=== PATIENT | male | born 1960 | race Caucasian/White ===

== ENCOUNTER 2021-03-18 06:33 | Inpatient (IN) | payer OTHER, MEDICAID, SELFPAY ==
--- NOTE | 2021-03-18 06:40 | ED_ITS ---
HPI - Psych General Chief Complaint: Psychiatric Symptoms Stated Complaint: crisis/si/non med compliant Time Seen by Provider: 03/18/21 06:40 Source: patient and EMS Mode of arrival: EMS Limitations: no limitations History of Present Illness MD complaint: suicidal ideation, feels depressed and substance abuse Onset (ago): week(s) Duration: getting worse History of same: Yes Relieving factors: none Exacerbating factors: drug use Context: recent drug abuse and not taking psychiatric medications Associated psychiatric symptoms: depression and suicidal ideation Associated symptoms: denies other symptoms Treatments prior to arrival: none If self harm: admits thoughts of self harm and has plan Related Data Allergies Allergy/AdvReac Type Severity Reaction Status Date / Time No Known Allergies Allergy Verified 03/18/21 06:54 Review of Systems Review of Systems: Constitutional : No Fever, No Chills ENT/Mouth : No Ear Pain, No Nasal Congestion, No sore throat Eyes: No Eye Pain, No Swelling, No Redness Cardiovascular : No Chest Pain, No SOB Respiratory : No Cough, No Sputum, No Dyspnea Gastrointestinal : No Nausea, No Vomiting, No Diarrhea, No Hematochezia, No Melena Genitourinary : No Dysuria, No Urinary Frequency, No Hematuria Musculoskeletal : No Myalgias Skin : No Skin Lesions, No rash Neuro : No Weakness, No Numbness, No Paresthesias, No Dizziness, No Headache Psych : positive Anxiety, positive Depression, positive SI no HI Heme/Lymph: No Lymphadenopathy Endocrine : No Polyuria, No Polydipsia All other systems reviewed and are negative PMFSH Past Medical History Attestation statement: The following information was validated with the patient. Medical History (Updated 03/18/21 @ 08:03 by Lily Mosqueda DO) Diabetes HTN (hypertension) Social History Social History (Updated 03/18/21 @ 06:56 by Lily Mosqueda DO) Patient Tobacco Use Status: Current everyday Tobacco user Use of substances other than those prescribed or required for medical reasons: Yes Substance Use Type: Crack/Cocaine Last Used Substance: Days (ago) Advance Directives: No Advance Directives Information Provided: No Physical Exam Vital Signs: Vital Signs: Last Vital Signs Temp 98.3 F 03/18/21 08:23 Pulse 88 03/18/21 08:23 Resp 16 03/18/21 08:23 BP 125/105 H 03/18/21 08:23 Pulse Ox 96 03/18/21 08:23 Appearance: Alert. Oriented X3. No acute distress. Eyes: Pupils equal, round and reactive to light. ENT: Pharynx normal. Neck: Normal inspection. Neck supple. CVS: Normal heart rate and rhythm. Pulses normal. Respiratory: No respiratory distress. Breath sounds normal. Abdomen: Soft and nontender. Skin: Skin warm and dry. Normal skin color. Normal skin turgor. Extremities: No lower extremity edema. No calf ttp Neuro: Oriented X 3. No motor deficit. No sensory deficit. CN2-12 intact Psych: pos SI, calm and cooperative Course Course Course Narrative: Physician observation started at 803am Patient placed in physician observation because the patient needed more time for N to assess the need for inpatient psychiatry other than repleting magnesium he is medically cleared. At the time observation was started the patient's vitals were stable, patient is alert and oriented, Neuro: nonfocal, CV RRR, Lungs clear MDM - Psych MDM Narrative Medical decision making narrative: 60 yo male with HTN, DM here with depression and SI - notes that he has plan to kill himself with his knives has not been taking medications and has been using crack. At this time will obtain labs, N consult dispo per results and findings. Lab Data Result diagrams: 03/18/21 07:21 03/18/21 07:21 Labs: Lab Results 03/18/21 03/18/21 03/18/21 Range/Units 07:21 07:21 07:21 WBC 5.8 (4.8-10.8) X10*3/uL RBC 4.42 L (4.60-5.80) X10*6/uL Hgb 13.3 L (14.0-18.0) g/dl Hct 38.0 L (42.0-52.0) % MCV 86.0 (80.0-98.0) fL MCH 30.1 (27.0-33.0) pg MCHC 35.0 (31.0-36.0) g/dl RDW 13.4 (11.0-16.0) % Plt Count 226 (160-400) X10*3/uL MPV 9.3 L (9.4-12.4) fL Immature Gran % (Auto) 1.4 H (0.0-0.4) % Neut % (Auto) 67.2 (45-73) % Lymph % (Auto) 19.5 L (20-40) % [place] % (Auto) 9.7 (2-11) % Eos % (Auto) 1.7 (0-4) % Baso % (Auto) 0.5 (0-2) % Lymph # (Auto) 1.1 L (1.2-4.9) X10*3/uL [place] # (Auto) 0.6 (0.1-1.2) X10*3/uL Eos # (Auto) 0.1 (0.0-0.4) X10*3/uL Baso # (Auto) 0.0 (0.0-0.2) X10*3/uL Abs Immat Gran (auto) 0.08 H (0.00-0.03) X10*3/uL Absolute Neuts (auto) 3.9 (2.0-8.3) x10*3/uL Absolute Nucleated RBC 0.000 (0.0-0.012) X10*3/uL Nucleated RBC % (auto) 0.0 (0.0-0.2) /100WBC Sodium 135 (135-145) mmol/L Potassium 3.9 (3.3-5.1) mmol/L Chloride 101 (96-108) mmol/L Carbon Dioxide 23 (22-29) mmol/L Anion Gap 15 (12-20) BUN 11 (9-16) mg/dL Creatinine 0.82 (0.5-1.4) mg/dL Estim Creat Clear Calc TNP Estimated GFR > 60 Random Glucose 223 H (60-115) mg/dL Calcium 8.8 (8.4-10.2) mg/dL Magnesium 1.4 L* (1.6-2.6) mg/dL Total Bilirubin 0.8 (0.0-1.0) mg/dL Direct Bilirubin 0.3 (0.0-0.5) mg/dL AST 50 H (5-37) U/L ALT 75 H (0-40) U/L Alkaline Phosphatase 88 (39-117) U/L Total Protein 7.0 (6.5-8.0) g/dL Albumin 4.4 (3.5-5.0) g/dL Ethyl Alcohol < 10 mg/dL COVID-19 ([facility]) (Negative) COVID-19 Clin Com 03/18/21 Range/Units 07:25 WBC (4.8-10.8) X10*3/uL RBC (4.60-5.80) X10*6/uL Hgb (14.0-18.0) g/dl Hct (42.0-52.0) % MCV (80.0-98.0) fL MCH (27.0-33.0) pg MCHC (31.0-36.0) g/dl RDW (11.0-16.0) % Plt Count (160-400) X10*3/uL MPV (9.4-12.4) fL Immature Gran % (Auto) (0.0-0.4) % Neut % (Auto) (45-73) % Lymph % (Auto) (20-40) % [place] % (Auto) (2-11) % Eos % (Auto) (0-4) % Baso % (Auto) (0-2) % Lymph # (Auto) (1.2-4.9) X10*3/uL [place] # (Auto) (0.1-1.2) X10*3/uL Eos # (Auto) (0.0-0.4) X10*3/uL Baso # (Auto) (0.0-0.2) X10*3/uL Abs Immat Gran (auto) (0.00-0.03) X10*3/uL Absolute Neuts (auto) (2.0-8.3) x10*3/uL Absolute Nucleated RBC (0.0-0.012) X10*3/uL Nucleated RBC % (auto) (0.0-0.2) /100WBC Sodium (135-145) mmol/L Potassium (3.3-5.1) mmol/L Chloride (96-108) mmol/L Carbon Dioxide (22-29) mmol/L Anion Gap (12-20) BUN (9-16) mg/dL Creatinine (0.5-1.4) mg/dL Estim Creat Clear Calc Estimated GFR Random Glucose (60-115) mg/dL Calcium (8.4-10.2) mg/dL Magnesium (1.6-2.6) mg/dL Total Bilirubin (0.0-1.0) mg/dL Direct Bilirubin (0.0-0.5) mg/dL AST (5-37) U/L ALT (0-40) U/L Alkaline Phosphatase (39-117) U/L Total Protein (6.5-8.0) g/dL Albumin (3.5-5.0) g/dL Ethyl Alcohol mg/dL COVID-19 (TANA) Negative (Negative) COVID-19 Clin Com See Note ECG Data Attestation: I personally reviewed and interpreted this ECG as follows: ECG interpretation date: 03/18/21 ECG interpretation time: 08:24 Interpretation: Rate: 95 Rhythm: NSR Spring: normal Normal P waves. Normal NATALIE. Normal QRS complex. ST T wave : normal no KARSON qTC: normal prior studies: no acute ischemia The study has been interpreted contemporaneously by me. . Discharge Plan Discharge Clinical Impression: Active substance abuse, Hypomagnesemia Depression Qualifiers: Depression Type: unspecified Qualified Code(s): F32.A - Depression, unspecified
--- NOTE | 2021-03-18 06:53 | PC.NURSE ---
pt is non med compliant, states SI has taken knife to self and has plans to drive into oncoming traffic
[2021-03-18 07:12] VITALS: BP 153/82; PULSE 94; RESP 16; O2SAT 95
--- NOTE | 2021-03-18 07:17 | PC.NURSE ---
Pt alert/oriented. Very calm and cooperative. Admits to occasional crack use, last use 2 days prior. States SI with plan to stab self or run into traffic. Pt observer at bedside. Labs being obtained. Belongings in locker 3 in pod
[2021-03-18 07:29] LABS: MANUAL DIFF FLAG NO
[2021-03-18 07:33] LABS: Basophils Percent Auto 0.5 % (0-2); Eosinophils Absolute Auto 0.1 X10*3/uL (0.0-0.4); Eosinophils Percent Auto 1.7 % (0-4); Hemoglobin 13.3 g/dl (14.0-18.0); Imm Gran Abs Auto 0.08 X10*3/uL (0.00-0.03); Imm Gran Pct Auto 1.4 % (0.0-0.4); Lymphocytes Absolute Auto 1.1 X10*3/uL (1.2-4.9); Lymphocytes Percent Auto 19.5 % (20-40); Mean Corpuscular Hemoglobin 30.1 pg (27.0-33.0); Mean Platelet Volume 9.3 fL (9.4-12.4); Monocytes Absolute Auto 0.6 X10*3/uL (0.1-1.2); Monocytes Percent Auto 9.7 % (2-11); Neutrophils Absolute Auto 3.9 x10*3/uL (2.0-8.3); Neutrophils Percent Auto 67.2 % (45-73); Platelet Count 226 X10*3/uL (160-400); Red Blood Count 4.42 X10*6/uL (4.60-5.80); Red Cell Distribution Width 13.4 % (11.0-16.0); White Blood Count 5.8 X10*3/uL (4.8-10.8)
[2021-03-18 07:46] LABS: COVID-19 Test Negative (Negative)
[2021-03-18 07:49] LABS: Ethanol < 10 mg/dL
[2021-03-18 07:57] LABS: Alanine Aminotransferase 75 U/L (0-40); Albumin Level 4.4 g/dL (3.5-5.0); Alkaline Phosphatase 88 U/L (39-117); Anion Gap 15 (12-20); Aspartate Amino Transferase 50 U/L (5-37); Bilirubin Direct 0.3 mg/dL (0.0-0.5); Bilirubin Total 0.8 mg/dL (0.0-1.0); Blood Urea Nitrogen 11 mg/dL (9-16); Calcium 8.8 mg/dL (8.4-10.2); Carbon Dioxide 23 mmol/L (22-29); Chloride 101 mmol/L (96-108); Estimated Glomerular Filt Rate > 60; Glucose Random 223 mg/dL (60-115); Magnesium 1.4 mg/dL (1.6-2.6); Potassium 3.9 mmol/L (3.3-5.1); Sodium 135 mmol/L (135-145)
--- NOTE | 2021-03-18 07:57 | ECG_ITS ---
Test Reason : psychiatric Blood Pressure : / mmHG Vent. Rate : 095 BPM Atrial Rate : 095 BPM P-R Int : 204 ms QRS Dur : 090 ms QT Int : 342 ms P-R-T Axes : 039 033 061 degrees QTc Int : 429 ms Normal sinus rhythm RSR' or QR pattern in V1 suggests right ventricular conduction delay Otherwise normal ECG No previous ECGs available Referred By: Lily Mosqueda Electronically Signed By:NOBLE HARTMANN MD
[2021-03-18 08:23] VITALS: BP 125/105; PULSE 88; RESP 16; TEMP 36.8; O2SAT 96
--- NOTE | 2021-03-18 08:49 | PHA.MEDREC ---
Pharmacy Consult ? Medication Reconciliation Pharmacy has completed the medication reconciliation. Patient's reported medicaitons match claim history. George VoD
[2021-03-18 08:57] LABS: Amphetamine Screen Urine Not Detected (Not Detect); Barbiturates, Urine Not Detected (Not Detect); Benzodiazepines Screen Urine Not Detected (Not Detect); Cannabinoid Screen Urine Not Detected (Not Detect); Cocaine Screen Urine POSITIVE (Not Detect); Fentanyl, urine Not Detected (Not Detect); Opiate Screen Urine Not Detected (Not Detect); Phencyclidine Screen Urine Not Detected (Not Detect)
[2021-03-18] MEDS: Magnesium Sulfate/H2O 2 GM/50 ML PIGGYBACK IV (09:04)
[2021-03-18] MEDS: Acetaminophen 325 MG TABLET 650 MG PO (09:04)
[2021-03-18 10:01] VITALS: BP 125/86; PULSE 102; RESP 15; TEMP 36.4; O2SAT 97
--- NOTE | 2021-03-18 10:42 | PC.NURSE ---
Referral sent to [facility]. Pt eating. Rmains calm and cooperative. No change s/p tylenol but pt also states my pain never goes below an 8
[2021-03-18 13:14] VITALS: BP 120/80; PULSE 102
[2021-03-18] MEDS: Atorvastatin Calcium 40 MG TABLET PO (13:14)
[2021-03-18] MEDS: lisinopriL 20 MG TABLET PO (13:14)
[2021-03-18] MEDS: metFORMIN HCl ER 750 MG TAB.ER.24H PO ×2 (13:14→20:19)
[2021-03-18] MEDS: DULoxetine HCl 30 MG CAPSULE.DR PO (13:14)
[2021-03-18 13:15] VITALS: BP 120/80; PULSE 102
[2021-03-18] MEDS: Metoprolol Succinate ER 25 MG TAB.ER.24H PO (13:15)
[2021-03-18] MEDS: Aspirin 81 MG TAB.CHEW PO (13:16)
[2021-03-18] MEDS: Omeprazole 20 MG CAPSULE.DR PO (13:16)
[2021-03-18] MEDS: Gabapentin 300 MG CAPSULE 600 MG PO ×2 (14:01→20:19)
[2021-03-18] MEDS: Nicotine 21 MG PATCH.TD24 TRANSDERMA (14:02)
[2021-03-18 15:49] VITALS: BP 126/72; PULSE 88; RESP 18; TEMP 36.6; O2SAT 95
[2021-03-18 20:15] LABS: Glucose, Whole Blood 225 mg/dL (60-115)
[2021-03-18] MEDS: QUEtiapine Fumarate 100 MG TABLET PO (20:19)
[2021-03-19 00:15] VITALS: BP 111/68; PULSE 81; RESP 17; TEMP 36.6; O2SAT 96
--- NOTE | 2021-03-19 05:42 | PC.NURSE ---
Patient slept through the night, no distress observed/reported, patient is pre-accepted to , behavior appropriate, medication compliant, gait unsteady, VSS, will continue to monitor
--- NOTE | 2021-03-19 07:14 | PC.NURSE ---
patient appears to remain ar rest at present respirations are even and unlabored, patient appears in no distress
[2021-03-19 07:27] LABS: Glucose, Whole Blood 311 mg/dL (60-115)
[2021-03-19 07:52] VITALS: BP 116/79; PULSE 98; RESP 15; TEMP 36.6; O2SAT 97
[2021-03-19 08:38] VITALS: BP 116/79; PULSE 98
[2021-03-19] MEDS: lisinopriL 20 MG TABLET PO (08:38)
[2021-03-19] MEDS: Aspirin 81 MG TAB.CHEW PO (08:38)
[2021-03-19] MEDS: metFORMIN HCl ER 750 MG TAB.ER.24H PO ×2 (08:38→21:04)
[2021-03-19 08:39] VITALS: BP 116/79; PULSE 98
[2021-03-19] MEDS: Omeprazole 20 MG CAPSULE.DR PO (08:39)
[2021-03-19] MEDS: Metoprolol Succinate ER 25 MG TAB.ER.24H PO (08:39)
[2021-03-19] MEDS: Atorvastatin Calcium 40 MG TABLET PO (08:40)
[2021-03-19] MEDS: Gabapentin 300 MG CAPSULE 600 MG PO ×3 (08:40→21:04)
[2021-03-19] MEDS: DULoxetine HCl 30 MG CAPSULE.DR PO (08:40)
[2021-03-19 15:47] LABS: Magnesium 1.6 mg/dL (1.6-2.6)
[2021-03-19 17:02] VITALS: BMI 30.9
--- NOTE | 2021-03-19 17:17 | PC.ADMIT ---
PT admitted to unit from [facility] on a CV. Pt called 911 himself for SI stating that he was holding a knife to his chest, pt reports he has also been having thoughts of rolling his wheelchair into traffic. PT states that his increasing depression is due to pain in his legs getting worse. PT focused on his leg pain, states he may lose his legs. PT using a wheelchair. PT calm and cooperative with admission process. PT is help seeking, continues to endorse SI in the context of his leg pain. PT states that he believes he needs medication at this time to help with his depression. Pt is covid negative. Tox screen was positive for cocaine. Pt on 1:1 constant observation due to using a wheelchair, 15 minute safety checks in place for safety.
[2021-03-19 20:59] LABS: Glucose, Whole Blood 269 mg/dL (60-115)
[2021-03-19] MEDS: QUEtiapine Fumarate 100 MG TABLET PO (21:04)
[2021-03-19 21:05] VITALS: BP 126/73; PULSE 87; TEMP 36.6; O2SAT 96
[2021-03-20] MEDS: Omeprazole 20 MG CAPSULE.DR PO (06:36)
[2021-03-20 06:46] LABS: Glucose, Whole Blood 238 mg/dL (60-115)
[2021-03-20 08:25] LABS: Estimated Average Glucose 217 mg/dL; Hemoglobin A1c % 9.2 %
[2021-03-20 08:39] LABS: Cholesterol 151 mg/dL; HDL Cholesterol 22 mg/dL; Triglycerides 647 mg/dL
[2021-03-20 08:58] LABS: Folate 7.4 ng/mL (> or = 4.0); Vitamin B12 491 pg/mL (200-900)
--- NOTE | 2021-03-20 09:07 | P.HPPS_ITS ---
HPI Date of Service: 03/20/21 Chief Complaint: SI Sources of Information: patient interviewed, chart reviewed and crisis/core team assessment reviewed HPI Subjective Notes: Conditional Voluntary Narrative: Mr. Vizcaino is a 60 year-old male with hx of DM, HTN, MDD, cocaine use disorder and opioid use disorder in remission who self presented to [facility] reporting increase depression for past year in context of relapse on cocaine a year ago and chronic pain related to arthritis. In the ED, his utox is positive for cocaine. On the unit, pt presents as pleasant, calm. He reports struggling with depression for about one year mostly due to chronic pain. Pt reports limited supports in the community. He states he is not close to family. He endorse depressed mood, feeling hopeless/helpless, anhedonia. On the unit, pt denies any plan or intent to hurt himself. He presents somewhat hopeful in that he think it will be beneficial to connect with OP psych providers and start medication for depression. He denies hx of VH/AH. He denies periods of increase energy, grandiose or elated mood, risk taking behavior (other than substance use). Past Psychiatric History: Inpatient: pt has 3 prior inpt admission. OP: none currently Suicide attempts: none Past medication trials: seroquel, cymbalta, gabapentin Medical Evaluation Reviewed: Yes [facility] Medical History (Updated 03/20/21 @ 09:26 by Magda Herrera) Diabetes HTN (hypertension) Family History: uncle- completed suicide Social History: Pt for 30 years with male partner, now but states they are somewhat close. No children. Served in . Substance History: Cocaine: reports relapse for past year, using daily Opioid: pt reports he has not used opioids since 's Alcohol: denies use for past 7 years Trauma History: denies Diagnostics Vital Signs (24Hr): Vital Signs - 24 hr 03/19/21 21:05 Temperature 97.8 F Pulse Rate 87 Blood Pressure 126/73 Pulse Oximetry 96 Body Mass Index 30.9 Labs Results: 03/18/21 07:21 03/18/21 07:21 Labs: Laboratory Results - last 48 hr 03/18/21 03/19/21 03/19/21 20:11 07:24 15:23 POC Glucose 225 H 311 H Estimat Average Glucose Hemoglobin A1c % Magnesium 1.6 Triglycerides Cholesterol LDL Cholesterol, Calc HDL Cholesterol Vitamin B12 Folate TSH 03/19/21 03/20/21 03/20/21 20:55 06:42 08:02 POC Glucose 269 H 238 H Estimat Average Glucose 217 Hemoglobin A1c % 9.2 Magnesium Triglycerides Cholesterol LDL Cholesterol, Calc HDL Cholesterol Vitamin B12 Folate TSH 03/20/21 03/20/21 08:02 08:02 POC Glucose Estimat Average Glucose Hemoglobin A1c % Magnesium Triglycerides 647 Cholesterol 151 LDL Cholesterol, Calc TNP HDL Cholesterol 22 Vitamin B12 491 Folate 7.4 TSH 2.10 Meds/Allergies Meds Home Medications Acetaminophen (Acetaminophen 325 Mg Tablet) 650 mg PO Q6H PRN PRN Reason: Headache/Pain Mild Scale (1-3) Al Hydroxide/Mg Hydroxide (Magnesium Hydrox/Alum Hydrox 30 Ml Oral.Susp) 30 ml PO Q6H PRN PRN Reason: Heartburn/Nausea Aspirin (Aspirin 81 Mg Tab.Chew) 81 mg PO DAILY [facility] Last Admin: 03/20/21 09:08 Dose: 81 mg Documented by: Atorvastatin Calcium (Atorvastatin Calcium 40 Mg Tablet) 40 mg PO DAILY [facility] Last Admin: 03/20/21 09:09 Dose: 40 mg Documented by: Duloxetine HCl (Duloxetine Hcl 30 Mg Capsule.) 30 mg PO DAILY [facility] Last Admin: 03/20/21 09:08 Dose: 30 mg Documented by: Gabapentin (Gabapentin 300 Mg Capsule) 600 mg PO TID [facility] Last Admin: 03/20/21 09:08 Dose: 600 mg Documented by: Hydroxyzine HCl (Hydroxyzine Hcl 25 Mg Tablet) 25 mg PO Q6H PRN PRN Reason: Anxiety Lisinopril (Lisinopril 20 Mg Tablet) 20 mg PO DAILY [facility]; Protocol Last Admin: 03/20/21 09:08 Dose: 20 mg Documented by: Magnesium Hydroxide (Milk Of Magnesia 30 Ml Oral.Susp) 30 ml PO DAILY PRN PRN Reason: Constipation Metformin HCl (Metformin Hcl Er 750 Mg Tab.Er.24h) 750 mg PO BID [facility] Last Admin: 03/20/21 09:08 Dose: 750 mg Documented by: Metoprolol Succinate (Metoprolol Succinate Er 25 Mg Tab.Er.24h) 25 mg PO DAILY [facility]; Protocol Last Admin: 03/20/21 09:08 Dose: 25 mg Documented by: Omeprazole (Omeprazole 20 Mg Capsule.) 20 mg PO DAILY@0600 [facility] Last Admin: 03/20/21 06:36 Dose: 20 mg Documented by: Quetiapine Fumarate (Quetiapine Fumarate 100 Mg Tablet) 100 mg PO BEDTIME [facility] Last Admin: 03/19/21 21:04 Dose: 100 mg Documented by: Trazodone HCl (Trazodone Hcl 50 Mg Tablet) 50 mg PO BEDTIME PRN PRN Reason: Insomnia Allergies Allergies Allergy/AdvReac Type Severity Reaction Status Date / Time No Known Allergies Allergy Verified 03/18/21 06:54 Mental Status Exam Mental Status Exam Narrative: Appearance: thin, disheveled, poor hygiene, edentulous, in NAD Behavior:cooperative, calm psychomotor: no agitation or retardation noted Speech:mumbles, difficult to understand at times in part due to edentulous, pressured speech, wnl tone, spontaneous Thought process:tangential at times, no loose association Thought content:no signs of psychosis, increasingly more hopeful, looking forward to return home with services Mood: better Affect: constricted, does brightens at times SI:denies any plan or intent HI:denies VH/AH:none Delusions:none Insight/judgment:fair x 2. Memory/cog: alert, oriented x 3. grossly intact to conversational testing. Assessment & Plan Assessment & Plan (1) MDD (major depressive disorder), recurrent episode, moderate: Status: Acute Code(s): F33.1 - Major depressive disorder, recurrent, moderate (2) Cocaine use disorder, moderate, dependence: Status: Acute Code(s): F14.20 - Cocaine dependence, uncomplicated (3) Opioid use disorder, mild, in sustained remission: Status: Acute Code(s): F11.11 - Opioid abuse, in remission Assessment and Plan: Mr. Vizcaino is a 60 year-old male with hx of MDD, cocaine use disorder (active), opioid use disorder in remission who self presented to [facility] reporting increase depression in context of recent relapsed on cocaine and chronic pain secondary to arthritis. His utox was positive for cocaine. On the unit, pt presents slightly more hopeful that connecting with services would be helpful for mood. In terms of cocaine use, pt reports I can stop that any time. Pt reports serouel has been helpful for sleep. After discussing risks, benefits and alternative treatment options, he agrees to continue cymbalta for depression. He would like to restart suboxone. PLAN 1. Admit to [facility] 2. Continue seroquel, cymbalta. 3. Consult to Dina Jones APRN to restart suboxone 4. Obtain collateral information 5. Aftercare plannining. Patient educated on: diagnosis, medication risk/benefits and substance abuse Informed Consent: understands Reason for continued inpatient stay Substantial Risk for: harm to self
[2021-03-20 09:08] VITALS: BP 151/88; PULSE 96
[2021-03-20] MEDS: lisinopriL 20 MG TABLET PO (09:08)
[2021-03-20] MEDS: Metoprolol Succinate ER 25 MG TAB.ER.24H PO (09:08)
[2021-03-20] MEDS: metFORMIN HCl ER 750 MG TAB.ER.24H PO ×2 (09:08→20:50)
[2021-03-20] MEDS: DULoxetine HCl 30 MG CAPSULE.DR PO (09:08)
[2021-03-20] MEDS: Gabapentin 300 MG CAPSULE 600 MG PO ×3 (09:08→20:49)
[2021-03-20] MEDS: Aspirin 81 MG TAB.CHEW PO (09:08)
--- NOTE | 2021-03-20 09:08 | MHC.CLN ---
NUTRITION INCREASED CALORIES TO DIABETIC 2000 KCAL DIET.
[2021-03-20] MEDS: Atorvastatin Calcium 40 MG TABLET PO (09:09)
[2021-03-20 09:15] VITALS: BP 151/88; PULSE 96; RESP 18; TEMP 36.4; O2SAT 98
[2021-03-20] MEDS: Nicotine 21 MG PATCH.TD24 TRANSDERMA (11:23)
--- NOTE | 2021-03-20 13:47 | HO.ADDICT_ITS ---
History of Present Illness Date of Service: 03/20/2021 Chief Complaint: SI Reason for Consult: OUD eval and treatment Requesting physician: Magda Hererra Discussed with referring provider: Yes Sources of Information: patient interviewed and chart reviewed HPI Narrative: Patient is a 60 year old male with cocaine use disorder, opioid use disorder (reported to be in remission) and MDD currently psychiatrically admitted with worsening depression and suicidal ideation. Consult requested as patient expressed desire to restart Suboxone. Patient seen in room 307. He was sitting up in bed, awake, alert, engaged in interview. Somewhat challenging to understand at times as he mumbles. He reports he was on suboxone up until about 3 weeks ago when he stopped taking it. He denies any withdrawal sx after discontinuation (which is uncommon given that he was taking this medication for some time) He reported last opioid use (heroin) as being about a year ago--though he reports increasing cravings He denies any history of OD. He has been followed by [place] and his preious dose of Suboxone was 8mg QD. He states it was helpful with both relapse prevention and pain management. He has been smoking cocaine for several years and states he has increased use over the last few months Strong family history of addiction Past Psychiatric History: Inpatient: pt has 3 prior inpt admission. OP: none currently Suicide attempts: none Past medication trials: seroquel, cymbalta, gabapentin Personal & Social History: see social history below Review of Systems Gastrointestinal: Denies loose stools and Denies nausea Musculoskeletal: Reports myalgias, Reports arthralgias and Reports other (wheelchair for ambulation ) Psychiatric: Reports anxiety, Reports change in appetite, Reports depression, Reports hopelessness and Reports anhedonia Diagnostics Vital Signs (24Hr): Vital Signs - 24 hr 03/19/21 21:05 03/20/21 09:08 03/20/21 09:15 Temperature 97.8 F 97.6 F Pulse Rate 87 96 96 Respiratory Rate 18 Blood Pressure 126/73 151/88 H 151/88 H Pulse Oximetry 96 98 Body Mass Index 30.9 Labs Results: 03/18/21 07:21 03/18/21 07:21 Labs: Laboratory Results - last 48 hr 03/18/21 03/19/21 03/19/21 20:11 07:24 15:23 POC Glucose 225 H 311 H Estimat Average Glucose Hemoglobin A1c % Magnesium 1.6 Triglycerides Cholesterol LDL Cholesterol, Calc HDL Cholesterol Vitamin B12 Folate TSH 03/19/21 03/20/21 03/20/21 20:55 06:42 08:02 POC Glucose 269 H 238 H Estimat Average Glucose 217 Hemoglobin A1c % 9.2 Magnesium Triglycerides Cholesterol LDL Cholesterol, Calc HDL Cholesterol Vitamin B12 Folate TSH 03/20/21 03/20/21 08:02 08:02 POC Glucose Estimat Average Glucose Hemoglobin A1c % Magnesium Triglycerides 647 Cholesterol 151 LDL Cholesterol, Calc TNP HDL Cholesterol 22 Vitamin B12 491 Folate 7.4 TSH 2.10 Mental Status Exam Mental Status Exam Patient Appearance: Disheveled and Unkempt Patient Orientation: Person, Place, Time and Situation Level of Consciousness: Awake, Appropriate and Alert Patient Behavior: Appropriate and Cooperative Mood Description: Constricted Affect Description: Constricted Thought Process: Intact Thought Content: positive for Circumstantial and positive for Linear Judgement: Fair Medications Medications Current Medications Acetaminophen (Acetaminophen 325 Mg Tablet) 650 mg PO Q6H PRN PRN Reason: Headache/Pain Mild Scale (1-3) Al Hydroxide/Mg Hydroxide (Magnesium Hydrox/Alum Hydrox 30 Ml Oral.Susp) 30 ml PO Q6H PRN PRN Reason: Heartburn/Nausea Aspirin (Aspirin 81 Mg Tab.Chew) 81 mg PO DAILY [facility] Last Admin: 03/20/21 09:08 Dose: 81 mg Documented by: Atorvastatin Calcium (Atorvastatin Calcium 40 Mg Tablet) 40 mg PO DAILY [facility] Last Admin: 03/20/21 09:09 Dose: 40 mg Documented by: Duloxetine HCl (Duloxetine Hcl 30 Mg Capsule.Dr) 30 mg PO DAILY [facility] Last Admin: 03/20/21 09:08 Dose: 30 mg Documented by: Gabapentin (Gabapentin 300 Mg Capsule) 600 mg PO TID [facility] Last Admin: 03/20/21 09:08 Dose: 600 mg Documented by: Hydroxyzine HCl (Hydroxyzine Hcl 25 Mg Tablet) 25 mg PO Q6H PRN PRN Reason: Anxiety Lisinopril (Lisinopril 20 Mg Tablet) 20 mg PO DAILY [facility]; Protocol Last Admin: 03/20/21 09:08 Dose: 20 mg Documented by: Magnesium Hydroxide (Milk Of Magnesia 30 Ml Oral.Susp) 30 ml PO DAILY PRN PRN Reason: Constipation Metformin HCl (Metformin Hcl Er 750 Mg Tab.Er.24h) 750 mg PO BID [facility] Last Admin: 03/20/21 09:08 Dose: 750 mg Documented by: Metoprolol Succinate (Metoprolol Succinate Er 25 Mg Tab.Er.24h) 25 mg PO DAILY [facility]; Protocol Last Admin: 03/20/21 09:08 Dose: 25 mg Documented by: Nicotine (Nicotine 21 Mg Patch.Td24) 21 mg TRANSDERMA DAILY [facility] Last Admin: 03/20/21 11:23 Dose: 21 mg Documented by: Omeprazole (Omeprazole 20 Mg Capsule.Dr) 20 mg PO DAILY@0600 [facility] Last Admin: 03/20/21 06:36 Dose: 20 mg Documented by: Quetiapine Fumarate (Quetiapine Fumarate 100 Mg Tablet) 100 mg PO BEDTIME [facility] Last Admin: 03/19/21 21:04 Dose: 100 mg Documented by: Trazodone HCl (Trazodone Hcl 50 Mg Tablet) 50 mg PO BEDTIME PRN PRN Reason: Insomnia Allergies Allergies Allergy/AdvReac Type Severity Reaction Status Date / Time No Known Allergies Allergy Verified 03/18/21 06:54 Assessment & Plan Assessment & Plan (1) Opioid use disorder, mild, in sustained remission: Status: Acute Code(s): F11.11 - Opioid abuse, in remission Assessment and Plan: * Will restart Suboxone at 2mg QD. Patient familiar with medication, dosing, goals of treatment and side effects. Monitor for any sedation and hold dose if necessary. Will follow and titrate dose as necessary * Patient wishes to resume care with [place] provider in [place] upon discharge * Discussed with attending provider (2) Cocaine use disorder, moderate, dependence: Status: Acute Code(s): F14.20 - Cocaine dependence, uncomplicated I spent ___30___ minutes with the patient and/or on the patient floor today, greater than?50% of which was spent counseling/coordinating care. [facility] Past Medical History Medical History Diabetes HTN (hypertension) Social History Social History Household Members: None Housing: Apartment Do you presently have visiting nurse or other home services: No Patient Tobacco Use Status: Current everyday Tobacco user Tobacco use type: Cigarette Cigarette Packs Per Day: 2 Cigarettes Per Day: 40.0 Smoked in Last 30 Days: Yes Patient Interested in Nicotine Replacement: Yes (nicotine patch) Patient Given Instructions on How to Stop Smoking: No (pt declined) Second Hand Smoke Exposure: No Use of substances other than those prescribed or required for medical reasons: Yes Substance Use Type: Crack/Cocaine Last Used Substance: Days (ago) Currently Displaying Signs/Symptoms of Drug Intoxication Withdrawal: No Have you been hit, kicked, punched, or otherwise hurt by someone within the past year? If so, by whom?: No Do you feel safe in your current relationship?: No Current Relationship Is there a partner from a previous relationship who is making you feel unsafe now?: No Are you made to feel afraid or neglected: No Spiritual Healthcare Practices: n/a [employer] Healthcare Practices: n/a Cultural Healthcare Practices: n/a Advance Directives: No Advance Directives Information Provided: No Advance Directives on File: No Guardian: No Do you have thoughts of harming others: None Do you have a plan to hurt others: No Plan Recently lost weight without trying: Unsure Eating poorly because of decreased appetite: Yes Poor oral hygiene: No
[2021-03-20] MEDS: Buprenorphine/Naloxone 2/0.5mg FILM 1 FILM SUBLINGUAL (14:57)
[2021-03-20] MEDS: QUEtiapine Fumarate 100 MG TABLET PO (20:49)
[2021-03-20 21:00] LABS: Glucose, Whole Blood 299 mg/dL (60-115)
[2021-03-20 21:15] VITALS: BP 119/58; PULSE 93; TEMP 36.4; O2SAT 93
[2021-03-21 07:00] VITALS: BMI 33.5
--- NOTE | 2021-03-21 07:49 | HO.PSYCHPN ---
Subjective Subjective Date of Service: 03/21/21 Reason For Visit: SI Subjective Notes: Conditional Voluntary Interim History: Pt reports feeling slightly better in terms of depressed mood, and anxious mood. He denies suicidal ideation. He reports he feels better now that suboxone was restarted. He states cold weather worsens his pain. we discussed adding genofibrate for elevated triglycerides >600. No symptoms of acute pancreatitis. Review of Systems Review of Systems Constitutional : No Fever, No Chills ENT/Mouth : No Ear Pain, No Nasal Congestion, No sore throat Eyes: No Eye Pain, No Swelling, No Redness Cardiovascular : No Chest Pain, No SOB Respiratory : No Cough, No Sputum, No Dyspnea Gastrointestinal : No Nausea, No Vomiting, No Diarrhea, No Hematochezia, No Melena Genitourinary : No Dysuria, No Urinary Frequency, No Hematuria Musculoskeletal : No Myalgias Skin : No Skin Lesions, No rash Neuro : No Weakness, No Numbness, No Paresthesias, No Dizziness, No Headache Psych : positive Anxiety, positive Depression, positive SI no HI Heme/Lymph: No Lymphadenopathy Endocrine : No Polyuria, No Polydipsia All other systems reviewed and are negative Constitutional: Denies snoring and Reports weakness (lower extremities ) Denies dysphagia Cardiovascular: Denies chest pain, Denies chest pain at rest, Denies epigastric discomfort, Denies pedal edema, Denies edema, Denies lightheadedness, Denies Loss of Consciousness, Denies radiating jaw, neck or arm pain, Denies palpitations, Denies dyspnea and Denies dyspnea on exertion Respiratory: Denies dyspnea, Denies dyspnea on exertion and Denies snoring Gastrointestinal: Denies constipation, Denies dysphagia, Denies diarrhea, Denies loose stools, Denies nausea and Denies vomiting Musculoskeletal: Reports myalgias, Reports atrophy, Reports arthralgias, Reports limited range of motion and Reports other (wheelchair for ambulation ) Reports weakness (lower extremities ) Psychiatric: Reports anxiety, Reports change in appetite, Reports depression, Reports hopelessness and Reports anhedonia Endocrine: Denies palpitations Mental Status Exam Mental Status Exam Narrative: Appearance: thin, disheveled, poor hygiene, edentulous, in NAD Behavior:cooperative, calm psychomotor: no agitation or retardation noted Speech:mumbles, difficult to understand at times in part due to edentulous, pressured speech, wnl tone, spontaneous Thought process:tangential at times, no loose association Thought content:no signs of psychosis, increasingly more hopeful, looking forward to return home with services Mood: better Affect: constricted, does brightens at times SI:denies any plan or intent HI:denies VH/AH:none Delusions:none Insight/judgment:fair x 2. Memory/cog: alert, oriented x 3. grossly intact to conversational testing. Diagnostics Vital Signs (24Hr): Vital Signs - 24 hr 03/21/21 08:53 03/21/21 08:54 03/21/21 08:55 Temperature 97.9 F Pulse Rate 84 84 84 Respiratory Rate 18 Blood Pressure 126/56 L 126/56 L 126/56 L Pulse Oximetry 94 03/21/21 20:41 Temperature 97.6 F Pulse Rate 73 Respiratory Rate Blood Pressure 136/75 Pulse Oximetry 94 Body Mass Index 33.5 Labs Results: 03/18/21 07:21 03/18/21 07:21 Labs: Laboratory Results - last 48 hr 03/20/21 03/20/21 03/20/21 08:02 08:02 08:02 POC Glucose Estimat Average Glucose 217 Hemoglobin A1c % 9.2 Triglycerides 647 Cholesterol 151 LDL Cholesterol, Calc TNP HDL Cholesterol 22 Lipase Vitamin B12 491 Folate 7.4 TSH 2.10 03/20/21 03/21/21 03/21/21 20:53 08:41 11:28 POC Glucose 299 H 259 H Estimat Average Glucose Hemoglobin A1c % Triglycerides Cholesterol LDL Cholesterol, Calc HDL Cholesterol Lipase 90 H Vitamin B12 Folate TSH 03/21/21 03/21/21 18:33 20:09 POC Glucose 278 H 267 H Estimat Average Glucose Hemoglobin A1c % Triglycerides Cholesterol LDL Cholesterol, Calc HDL Cholesterol Lipase Vitamin B12 Folate TSH Medications Medications Current Medications Acetaminophen (Acetaminophen 325 Mg Tablet) 650 mg PO Q6H PRN PRN Reason: Headache/Pain Mild Scale (1-3) Last Admin: 03/21/21 14:36 Dose: 650 mg Documented by: Al Hydroxide/Mg Hydroxide (Magnesium Hydrox/Alum Hydrox 30 Ml Oral.Susp) 30 ml PO Q6H PRN PRN Reason: Heartburn/Nausea Aspirin (Aspirin 81 Mg Tab.Chew) 81 mg PO DAILY [facility] Last Admin: 03/21/21 08:53 Dose: 81 mg Documented by: Atorvastatin Calcium (Atorvastatin Calcium 40 Mg Tablet) 40 mg PO DAILY [facility] Last Admin: 03/21/21 08:54 Dose: 40 mg Documented by: Buprenorphine/Naloxone (Buprenorphine/Naloxone 2/0.5mg Film) 1 film SUBLINGUAL DAILY [facility] Last Admin: 03/21/21 08:53 Dose: 1 film Documented by: Duloxetine HCl (Duloxetine Hcl 30 Mg Capsule.) 30 mg PO DAILY [facility] Last Admin: 03/21/21 08:54 Dose: 30 mg Documented by: Fenofibrate (Fenofibrate 54 Mg Tablet) 54 mg PO DAILY [facility] Last Admin: 03/21/21 11:31 Dose: 54 mg Documented by: Gabapentin (Gabapentin 300 Mg Capsule) 600 mg PO TID [facility] Last Admin: 03/21/21 20:37 Dose: 600 mg Documented by: Hydroxyzine HCl (Hydroxyzine Hcl 25 Mg Tablet) 25 mg PO Q6H PRN PRN Reason: Anxiety Lisinopril (Lisinopril 20 Mg Tablet) 20 mg PO DAILY [facility]; Protocol Last Admin: 03/21/21 08:53 Dose: 20 mg Documented by: Magnesium Hydroxide (Milk Of Magnesia 30 Ml Oral.Susp) 30 ml PO DAILY PRN PRN Reason: Constipation Metformin HCl (Metformin Hcl Er 750 Mg Tab.Er.24h) 750 mg PO BID [facility] Last Admin: 03/21/21 20:37 Dose: 750 mg Documented by: Metoprolol Succinate (Metoprolol Succinate Er 25 Mg Tab.Er.24h) 25 mg PO DAILY [facility]; Protocol Last Admin: 03/21/21 08:54 Dose: 25 mg Documented by: Nicotine (Nicotine 21 Mg Patch.Td24) 21 mg TRANSDERMA DAILY [facility] Last Admin: 03/21/21 08:51 Dose: 21 mg Documented by: Omeprazole (Omeprazole 20 Mg Capsule.) 20 mg PO DAILY@0600 [facility] Last Admin: 03/22/21 06:23 Dose: 20 mg Documented by: Quetiapine Fumarate (Quetiapine Fumarate 100 Mg Tablet) 100 mg PO BEDTIME [facility] Last Admin: 03/21/21 20:37 Dose: 100 mg Documented by: Trazodone HCl (Trazodone Hcl 50 Mg Tablet) 50 mg PO BEDTIME PRN PRN Reason: Insomnia Allergies Allergies Allergy/AdvReac Type Severity Reaction Status Date / Time No Known Allergies Allergy Verified 03/18/21 06:54 Assessment & Plan Assessment & Plan (1) Opioid use disorder, mild, in sustained remission: Status: Acute Code(s): F11.11 - Opioid abuse, in remission Assessment and Plan: Will restart Suboxone at 2mg QD. Patient familiar with medication, dosing, goals of treatment and side effects. Monitor for any sedation and hold dose if necessary. Will follow and titrate dose as necessary Patient wishes to resume care with [facility] provider in [place] upon discharge Discussed with attending provider (2) Cocaine use disorder, moderate, dependence: Status: Acute Code(s): F14.20 - Cocaine dependence, uncomplicated I spent minutes with the patient and/or on the patient floor today, greater than?50% of which was spent counseling/coordinating care. Reason for contiued inpatient stay Substantial Risk for: harm to self
[2021-03-21 08:46] LABS: Glucose, Whole Blood 259 mg/dL (60-115)
[2021-03-21] MEDS: Nicotine 21 MG PATCH.TD24 TRANSDERMA (08:51)
[2021-03-21] MEDS: Acetaminophen 325 MG TABLET 650 MG PO ×2 (08:52→14:36)
[2021-03-21] MEDS: Gabapentin 300 MG CAPSULE 600 MG PO ×3 (08:52→20:37)
[2021-03-21 08:53] VITALS: BP 126/56; PULSE 84
[2021-03-21] MEDS: metFORMIN HCl ER 750 MG TAB.ER.24H PO ×2 (08:53→20:37)
[2021-03-21] MEDS: Buprenorphine/Naloxone 2/0.5mg FILM 1 FILM SUBLINGUAL (08:53)
[2021-03-21] MEDS: Aspirin 81 MG TAB.CHEW PO (08:53)
[2021-03-21] MEDS: lisinopriL 20 MG TABLET PO (08:53)
[2021-03-21 08:54] VITALS: BP 126/56; PULSE 84
[2021-03-21] MEDS: DULoxetine HCl 30 MG CAPSULE.DR PO (08:54)
[2021-03-21] MEDS: Atorvastatin Calcium 40 MG TABLET PO (08:54)
[2021-03-21] MEDS: Omeprazole 20 MG CAPSULE.DR PO (08:54)
[2021-03-21] MEDS: Metoprolol Succinate ER 25 MG TAB.ER.24H PO (08:54)
[2021-03-21 08:55] VITALS: BP 126/56; PULSE 84; RESP 18; TEMP 36.6; O2SAT 94
[2021-03-21] MEDS: Fenofibrate 54 MG TABLET PO (11:31)
[2021-03-21 11:55] LABS: Lipase 90 U/L (8-78)
[2021-03-21 18:39] LABS: Glucose, Whole Blood 278 mg/dL (60-115)
[2021-03-21 20:21] LABS: Glucose, Whole Blood 267 mg/dL (60-115)
[2021-03-21] MEDS: QUEtiapine Fumarate 100 MG TABLET PO (20:37)
[2021-03-21 20:41] VITALS: BP 136/75; PULSE 73; TEMP 36.4; O2SAT 94
[2021-03-22] MEDS: Omeprazole 20 MG CAPSULE.DR PO (06:23)
[2021-03-22 08:58] LABS: Glucose, Whole Blood 190 mg/dL (60-115)
[2021-03-22 09:12] VITALS: BP 122/75; PULSE 108; RESP 16; TEMP 36.7; O2SAT 96
[2021-03-22] MEDS: Buprenorphine/Naloxone 2/0.5mg FILM 1 FILM SUBLINGUAL ×2 (09:13→14:45)
[2021-03-22] MEDS: Nicotine 21 MG PATCH.TD24 TRANSDERMA (09:13)
[2021-03-22] MEDS: DULoxetine HCl 30 MG CAPSULE.DR PO (09:13)
[2021-03-22] MEDS: Aspirin 81 MG TAB.CHEW PO (09:14)
[2021-03-22] MEDS: Gabapentin 300 MG CAPSULE 600 MG PO ×3 (09:14→20:30)
[2021-03-22] MEDS: Fenofibrate 54 MG TABLET PO (09:14)
[2021-03-22] MEDS: metFORMIN HCl ER 750 MG TAB.ER.24H PO (09:14)
[2021-03-22 09:15] VITALS: BP 122/75; PULSE 106
[2021-03-22] MEDS: lisinopriL 20 MG TABLET PO (09:15)
[2021-03-22] MEDS: Metoprolol Succinate ER 25 MG TAB.ER.24H PO (09:15)
[2021-03-22] MEDS: Atorvastatin Calcium 40 MG TABLET PO (09:15)
--- NOTE | 2021-03-22 13:04 | MHC.RECOVRN ---
Met with pt in 307 to f/u regarding Suboxone initiation. Pt states It's helping. Pt denies any side effects. Pt reports having been prescribed 8/2 mg QD but taking 8/2 mg BID. Pt would like to increase dose. Discussed with Dina Jones APRN.
--- NOTE | 2021-03-22 13:14 | HO.PSYCHPN ---
Subjective Subjective Date of Service: 03/22/21 Reason For Visit: SI Interim History: pt found resting in his bed. calm, cooperative. a bit pressured, but pleasant. states his pain is a bit better and consequently his SI is improved. very long and detailed accounting of his orthopedic history. recites the medications hs is taking which might be helpful for pain, including gabapentin, suboxone, and cymbalta. he feels perhaps starting the cymbalta has helped with his pain. he has an apartment at and plans to return there once discharged. 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 he is asking for help getting VNA services for diabetes care. he is agreeable to increasing his metformin to 2 grams daily due to inadequately controlled serum glucose. per staff, liipase elevated recently. less focused on pain. doesn't want [facility] or day program. brighter affect. deneis SI/HI. c/o anx/dep. glucoses have been in the 200's. Mental Status Exam Mental Status Exam Narrative: Appearance: thin, disheveled, poor hygiene, edentulous, in NAD Behavior:cooperative, calm psychomotor: no agitation or retardation noted Speech:mumbles, difficult to understand at times in part due to edentulous, pressured speech, wnl tone, spontaneous Thought process:tangential at times, no loose association Thought content:no signs of psychosis, increasingly more hopeful, looking forward to return home with services Mood: better Affect: constricted, does brighten at times SI:none expressed HI:none expressed VH/AH:none expressed Delusions:none Insight/judgment:fair x 2. Memory/cog: alert, oriented x 3. grossly intact to conversational testing. Diagnostics Vital Signs (24Hr): Vital Signs - 24 hr 03/21/21 20:41 03/22/21 09:12 03/22/21 09:15 Temperature 97.6 F 98.1 F Pulse Rate 73 108 H 106 H Respiratory Rate 16 Blood Pressure 136/75 122/75 122/75 Pulse Oximetry 94 96 Body Mass Index 33.5 Labs Results: 03/18/21 07:21 03/18/21 07:21 Labs: Laboratory Results - last 48 hr 03/20/21 03/21/21 03/21/21 20:53 08:41 11:28 POC Glucose 299 H 259 H Lipase 90 H 03/21/21 03/21/21 03/22/21 18:33 20:09 08:53 POC Glucose 278 H 267 H 190 H Lipase Medications Medications Current Medications Acetaminophen (Acetaminophen 325 Mg Tablet) 650 mg PO Q6H PRN PRN Reason: Headache/Pain Mild Scale (1-3) Last Admin: 03/21/21 14:36 Dose: 650 mg Documented by: Al Hydroxide/Mg Hydroxide (Magnesium Hydrox/Alum Hydrox 30 Ml Oral.Susp) 30 ml PO Q6H PRN PRN Reason: Heartburn/Nausea Aspirin (Aspirin 81 Mg Tab.Chew) 81 mg PO DAILY [facility] Last Admin: 03/22/21 09:14 Dose: 81 mg Documented by: Atorvastatin Calcium (Atorvastatin Calcium 40 Mg Tablet) 40 mg PO DAILY [facility] Last Admin: 03/22/21 09:15 Dose: 40 mg Documented by: Buprenorphine/Naloxone (Buprenorphine/Naloxone 2/0.5mg Film) 1 film SUBLINGUAL DAILY [facility] Last Admin: 03/22/21 09:13 Dose: 1 film Documented by: Buprenorphine/Naloxone (Buprenorphine/Naloxone 2/0.5mg Film) 1 film SUBLINGUAL 1400 [facility] Duloxetine HCl (Duloxetine Hcl 30 Mg Capsule.Dr) 30 mg PO DAILY [facility] Last Admin: 03/22/21 09:13 Dose: 30 mg Documented by: Fenofibrate (Fenofibrate 54 Mg Tablet) 54 mg PO DAILY [facility] Last Admin: 03/22/21 09:14 Dose: 54 mg Documented by: Gabapentin (Gabapentin 300 Mg Capsule) 600 mg PO TID [facility] Last Admin: 03/22/21 09:14 Dose: 600 mg Documented by: Hydroxyzine HCl (Hydroxyzine Hcl 25 Mg Tablet) 25 mg PO Q6H PRN PRN Reason: Anxiety Lisinopril (Lisinopril 20 Mg Tablet) 20 mg PO DAILY [facility]; Protocol Last Admin: 03/22/21 09:15 Dose: 20 mg Documented by: Magnesium Hydroxide (Milk Of Magnesia 30 Ml Oral.Susp) 30 ml PO DAILY PRN PRN Reason: Constipation Metformin HCl (Metformin Hcl Er 500 Mg Tab.Er.24h) 1,000 mg PO BID [facility] Metoprolol Succinate (Metoprolol Succinate Er 25 Mg Tab.Er.24h) 25 mg PO DAILY [facility]; Protocol Last Admin: 03/22/21 09:15 Dose: 25 mg Documented by: Nicotine (Nicotine 21 Mg Patch.Td24) 21 mg TRANSDERMA DAILY [facility] Last Admin: 03/22/21 09:13 Dose: 21 mg Documented by: Omeprazole (Omeprazole 20 Mg Capsule.Dr) 20 mg PO DAILY@0600 [facility] Last Admin: 03/22/21 06:23 Dose: 20 mg Documented by: Quetiapine Fumarate (Quetiapine Fumarate 100 Mg Tablet) 100 mg PO BEDTIME [facility] Last Admin: 03/21/21 20:37 Dose: 100 mg Documented by: Trazodone HCl (Trazodone Hcl 50 Mg Tablet) 50 mg PO BEDTIME PRN PRN Reason: Insomnia Allergies Allergies Allergy/AdvReac Type Severity Reaction Status Date / Time No Known Allergies Allergy Verified 03/18/21 06:54 Assessment & Plan Assessment & Plan (1) Opioid use disorder, mild, in sustained remission: Status: Acute Code(s): F11.11 - Opioid abuse, in remission Assessment and Plan: Will restart Suboxone at 2mg QD. Patient familiar with medication, dosing, goals of treatment and side effects. Monitor for any sedation and hold dose if necessary. Will follow and titrate dose as necessary Patient wishes to resume care with [facility] provider in [place] upon discharge Discussed with attending provider (2) Cocaine use disorder, moderate, dependence: Status: Acute Code(s): F14.20 - Cocaine dependence, uncomplicated I spent minutes with the patient and/or on the patient floor today, greater than?50% of which was spent counseling/coordinating care. Reason for contiued inpatient stay Substantial Risk for: inability to function and rapid decompensation
--- NOTE | 2021-03-22 14:44 | P.PNADD_ITS ---
Subjective Subjective Date of Service: 03/22/21 Reason For Visit: SI Interim History: Patient tolerating suboxone 2mg requesting additional 2mg in the afternoon Review of Systems Medical Review of Systems: unchanged Mental Status Exam Mental Status Exam Patient Appearance: Disheveled Patient Orientation: Person, Place, Time and Situation Mood Description: Appropriate Judgement: Fair Diagnostics Vital Signs (24Hr): Vital Signs - 24 hr 03/21/21 20:41 03/22/21 09:12 03/22/21 09:15 Temperature 97.6 F 98.1 F Pulse Rate 73 108 H 106 H Respiratory Rate 16 Blood Pressure 136/75 122/75 122/75 Pulse Oximetry 94 96 Body Mass Index 33.5 Labs Results: 03/18/21 07:21 03/18/21 07:21 Labs: Laboratory Results - last 48 hr 03/20/21 03/21/21 03/21/21 20:53 08:41 11:28 POC Glucose 299 H 259 H Lipase 90 H 03/21/21 03/21/21 03/22/21 18:33 20:09 08:53 POC Glucose 278 H 267 H 190 H Lipase Medications Medications Current Medications Acetaminophen (Acetaminophen 325 Mg Tablet) 650 mg PO Q6H PRN PRN Reason: Headache/Pain Mild Scale (1-3) Last Admin: 03/21/21 14:36 Dose: 650 mg Documented by: Al Hydroxide/Mg Hydroxide (Magnesium Hydrox/Alum Hydrox 30 Ml Oral.Susp) 30 ml PO Q6H PRN PRN Reason: Heartburn/Nausea Aspirin (Aspirin 81 Mg Tab.Chew) 81 mg PO DAILY [facility] Last Admin: 03/22/21 09:14 Dose: 81 mg Documented by: Atorvastatin Calcium (Atorvastatin Calcium 40 Mg Tablet) 40 mg PO DAILY [facility] Last Admin: 03/22/21 09:15 Dose: 40 mg Documented by: Buprenorphine/Naloxone (Buprenorphine/Naloxone 2/0.5mg Film) 1 film SUBLINGUAL DAILY [facility] Last Admin: 03/22/21 09:13 Dose: 1 film Documented by: Buprenorphine/Naloxone (Buprenorphine/Naloxone 2/0.5mg Film) 1 film SUBLINGUAL 1400 [facility] Duloxetine HCl (Duloxetine Hcl 30 Mg Capsule.Dr) 30 mg PO DAILY [facility] Last Admin: 03/22/21 09:13 Dose: 30 mg Documented by: Fenofibrate (Fenofibrate 54 Mg Tablet) 54 mg PO DAILY [facility] Last Admin: 03/22/21 09:14 Dose: 54 mg Documented by: Gabapentin (Gabapentin 300 Mg Capsule) 600 mg PO TID [facility] Last Admin: 03/22/21 09:14 Dose: 600 mg Documented by: Hydroxyzine HCl (Hydroxyzine Hcl 25 Mg Tablet) 25 mg PO Q6H PRN PRN Reason: Anxiety Lisinopril (Lisinopril 20 Mg Tablet) 20 mg PO DAILY [facility]; Protocol Last Admin: 03/22/21 09:15 Dose: 20 mg Documented by: Magnesium Hydroxide (Milk Of Magnesia 30 Ml Oral.Susp) 30 ml PO DAILY PRN PRN Reason: Constipation Metformin HCl (Metformin Hcl Er 500 Mg Tab.Er.24h) 1,000 mg PO BID [facility] Metoprolol Succinate (Metoprolol Succinate Er 25 Mg Tab.Er.24h) 25 mg PO DAILY [facility]; Protocol Last Admin: 03/22/21 09:15 Dose: 25 mg Documented by: Nicotine (Nicotine 21 Mg Patch.Td24) 21 mg TRANSDERMA DAILY [facility] Last Admin: 03/22/21 09:13 Dose: 21 mg Documented by: Omeprazole (Omeprazole 20 Mg Capsule.Dr) 20 mg PO DAILY@0600 [facility] Last Admin: 03/22/21 06:23 Dose: 20 mg Documented by: Quetiapine Fumarate (Quetiapine Fumarate 100 Mg Tablet) 100 mg PO BEDTIME [facility] Last Admin: 03/21/21 20:37 Dose: 100 mg Documented by: Trazodone HCl (Trazodone Hcl 50 Mg Tablet) 50 mg PO BEDTIME PRN PRN Reason: Insomnia Allergies Allergies Allergy/AdvReac Type Severity Reaction Status Date / Time No Known Allergies Allergy Verified 03/18/21 06:54 Assessment & Plan Assessment & Plan (1) Opioid use disorder, mild, in sustained remission: Status: Acute Code(s): F11.11 - Opioid abuse, in remission Assessment and Plan: * additional 2mg suboxone ordered for 2pm daily * follow up as necessary I spent ____15__ minutes with the patient and/or on the patient floor today, greater than?50% of which was spent counseling/coordinating care.
[2021-03-22 17:19] LABS: Glucose, Whole Blood 273 mg/dL (60-115)
[2021-03-22 20:29] VITALS: BP 141/93; PULSE 92; TEMP 36.6; O2SAT 93
[2021-03-22] MEDS: QUEtiapine Fumarate 100 MG TABLET PO (20:30)
[2021-03-22] MEDS: metFORMIN HCl ER 500 MG TAB.ER.24H 1000 MG PO (20:30)
[2021-03-22 20:31] LABS: Glucose, Whole Blood 281 mg/dL (60-115)
[2021-03-23] MEDS: hydrOXYzine HCL 25 MG TABLET PO (00:16)
[2021-03-23] MEDS: traZODone HCL 50 MG TABLET PO ×3 (00:16→20:41)
[2021-03-23 07:48] LABS: Glucose, Whole Blood 262 mg/dL (60-115)
[2021-03-23 08:17] VITALS: BP 114/74; PULSE 99; RESP 17; TEMP 37.2; O2SAT 95
[2021-03-23] MEDS: Fenofibrate 54 MG TABLET PO (08:27)
[2021-03-23] MEDS: Omeprazole 20 MG CAPSULE.DR PO (08:27)
[2021-03-23] MEDS: Nicotine 21 MG PATCH.TD24 TRANSDERMA (08:27)
[2021-03-23] MEDS: Aspirin 81 MG TAB.CHEW PO (08:27)
[2021-03-23 08:28] VITALS: BP 114/74; PULSE 99
[2021-03-23] MEDS: Atorvastatin Calcium 40 MG TABLET PO (08:28)
[2021-03-23] MEDS: lisinopriL 20 MG TABLET PO (08:28)
[2021-03-23] MEDS: Metoprolol Succinate ER 25 MG TAB.ER.24H PO (08:28)
[2021-03-23] MEDS: DULoxetine HCl 30 MG CAPSULE.DR PO (08:28)
[2021-03-23] MEDS: Gabapentin 300 MG CAPSULE 600 MG PO ×3 (08:28→20:41)
[2021-03-23] MEDS: metFORMIN HCl ER 500 MG TAB.ER.24H 1000 MG PO ×2 (08:28→20:41)
[2021-03-23] MEDS: Buprenorphine/Naloxone 2/0.5mg FILM 1 FILM SUBLINGUAL ×2 (08:29→14:20)
--- NOTE | 2021-03-23 13:52 | P.PNPSI_ITS ---
Subjective Subjective Date of Service: 03/23/21 Reason For Visit: SI Interim History: pt reports he continues to feel well, pain has improved, pleased with his progress. thinking of going hime this week, he offers thursday. per staff, pleasant, cooperative. interrupted sleep, but he feels he slept well. no issues. Mental Status Exam Mental Status Exam Narrative: Appearance: thin, disheveled, poor hygiene, edentulous, in NAD Behavior:cooperative, calm psychomotor: no agitation or retardation noted Speech:mumbles, difficult to understand due to edentulous, pressured speech, wnl tone, spontaneous Thought process:tangential at times, no loose association Thought content:no signs of psychosis, increasingly more hopeful, looking forward to return home with services Mood: not assessed Affect: full range, flexible SI:none expressed HI:none expressed VH/AH:none expressed Delusions:none Insight/judgment:fair x 2. Diagnostics Vital Signs (24Hr): Vital Signs - 24 hr 03/22/21 20:29 03/23/21 08:17 03/23/21 08:28 Temperature 97.8 F 99.0 F Pulse Rate 92 99 99 Respiratory Rate 17 Blood Pressure 141/93 H 114/74 114/74 Pulse Oximetry 93 95 Body Mass Index 33.5 Labs Results: 03/18/21 07:21 03/18/21 07:21 Labs: Laboratory Results - last 48 hr 03/21/21 03/21/21 03/22/21 18:33 20:09 08:53 POC Glucose 278 H 267 H 190 H 03/22/21 03/22/21 03/23/21 17:15 20:26 07:44 POC Glucose 273 H 281 H 262 H Medications Medications Current Medications Acetaminophen (Acetaminophen 325 Mg Tablet) 650 mg PO Q6H PRN PRN Reason: Headache/Pain Mild Scale (1-3) Last Admin: 03/21/21 14:36 Dose: 650 mg Documented by: Al Hydroxide/Mg Hydroxide (Magnesium Hydrox/Alum Hydrox 30 Ml Oral.Susp) 30 ml PO Q6H PRN PRN Reason: Heartburn/Nausea Aspirin (Aspirin 81 Mg Tab.Chew) 81 mg PO DAILY [facility] Last Admin: 03/23/21 08:27 Dose: 81 mg Documented by: Atorvastatin Calcium (Atorvastatin Calcium 40 Mg Tablet) 40 mg PO DAILY [facility] Last Admin: 03/23/21 08:28 Dose: 40 mg Documented by: Buprenorphine/Naloxone (Buprenorphine/Naloxone 2/0.5mg Film) 1 film SUBLINGUAL DAILY [facility] Last Admin: 03/23/21 08:29 Dose: 1 film Documented by: Buprenorphine/Naloxone (Buprenorphine/Naloxone 2/0.5mg Film) 1 film SUBLINGUAL 1400 [facility] Last Admin: 03/22/21 14:45 Dose: 1 film Documented by: Duloxetine HCl (Duloxetine Hcl 30 Mg Capsule.) 30 mg PO DAILY [facility] Last Admin: 03/23/21 08:28 Dose: 30 mg Documented by: Fenofibrate (Fenofibrate 54 Mg Tablet) 54 mg PO DAILY [facility] Last Admin: 03/23/21 08:27 Dose: 54 mg Documented by: Gabapentin (Gabapentin 300 Mg Capsule) 600 mg PO TID [facility] Last Admin: 03/23/21 08:28 Dose: 600 mg Documented by: Hydroxyzine HCl (Hydroxyzine Hcl 25 Mg Tablet) 25 mg PO Q6H PRN PRN Reason: Anxiety Last Admin: 03/23/21 00:16 Dose: 25 mg Documented by: Lisinopril (Lisinopril 20 Mg Tablet) 20 mg PO DAILY [facility]; Protocol Last Admin: 03/23/21 08:28 Dose: 20 mg Documented by: Magnesium Hydroxide (Milk Of Magnesia 30 Ml Oral.Susp) 30 ml PO DAILY PRN PRN Reason: Constipation Metformin HCl (Metformin Hcl Er 500 Mg Tab.Er.24h) 1,000 mg PO BID [facility] Last Admin: 03/23/21 08:28 Dose: 1,000 mg Documented by: Metoprolol Succinate (Metoprolol Succinate Er 25 Mg Tab.Er.24h) 25 mg PO DAILY [facility]; Protocol Last Admin: 03/23/21 08:28 Dose: 25 mg Documented by: Nicotine (Nicotine 21 Mg Patch.Td24) 21 mg TRANSDERMA DAILY [facility] Last Admin: 03/23/21 08:27 Dose: 21 mg Documented by: Omeprazole (Omeprazole 20 Mg Capsule.) 20 mg PO DAILY@0600 [facility] Last Admin: 03/23/21 08:27 Dose: 20 mg Documented by: Quetiapine Fumarate (Quetiapine Fumarate 100 Mg Tablet) 100 mg PO BEDTIME [facility] Last Admin: 03/22/21 20:30 Dose: 100 mg Documented by: Trazodone HCl (Trazodone Hcl 50 Mg Tablet) 50 mg PO BEDTIME PRN PRN Reason: Insomnia Last Admin: 03/23/21 02:04 Dose: 50 mg Documented by: Allergies Allergies Allergy/AdvReac Type Severity Reaction Status Date / Time No Known Allergies Allergy Verified 03/18/21 06:54 Assessment & Plan Assessment & Plan (1) Opioid use disorder, mild, in sustained remission: Status: Acute Code(s): F11.11 - Opioid abuse, in remission Assessment and Plan: * additional 2mg suboxone ordered for 2pm daily * follow up as necessary Assessment and Plan: * restarted Suboxone at 2mg QD. Patient familiar with medication, dosing, goals of treatment and side effects. Monitor for any sedation and hold dose if necessary. Will follow and titrate dose as necessary. 03/22 and additional 2 mg dose added at 2 pm. * Patient wishes to resume care with [facility] provider in [place] upon discharge. I spent minutes with the patient and/or on the patient floor today, grea ter than?50% of which was spent counseling/coordinating care. Reason for contiued inpatient stay Substantial Risk for: harm to self
[2021-03-23 17:27] LABS: Glucose, Whole Blood 241 mg/dL (60-115)
[2021-03-23 20:40] LABS: Glucose, Whole Blood 268 mg/dL (60-115)
[2021-03-23] MEDS: QUEtiapine Fumarate 100 MG TABLET PO (20:41)
[2021-03-23 21:30] VITALS: BP 113/73; PULSE 96; TEMP 36.7; O2SAT 93
[2021-03-24 08:23] VITALS: BP 121/76; PULSE 94; RESP 17; TEMP 36.7; O2SAT 94
[2021-03-24] MEDS: Nicotine 21 MG PATCH.TD24 TRANSDERMA (08:24)
[2021-03-24 08:25] VITALS: BP 121/76; PULSE 94
[2021-03-24] MEDS: DULoxetine HCl 30 MG CAPSULE.DR PO (08:25)
[2021-03-24] MEDS: Fenofibrate 54 MG TABLET PO (08:25)
[2021-03-24] MEDS: Buprenorphine/Naloxone 2/0.5mg FILM 1 FILM SUBLINGUAL ×2 (08:25→14:23)
[2021-03-24] MEDS: Metoprolol Succinate ER 25 MG TAB.ER.24H PO (08:25)
[2021-03-24] MEDS: Gabapentin 300 MG CAPSULE 600 MG PO ×3 (08:26→20:29)
[2021-03-24 08:27] VITALS: BP 121/76; PULSE 94
[2021-03-24] MEDS: lisinopriL 20 MG TABLET PO (08:27)
[2021-03-24] MEDS: metFORMIN HCl ER 500 MG TAB.ER.24H 1000 MG PO ×2 (08:27→20:28)
[2021-03-24] MEDS: Atorvastatin Calcium 40 MG TABLET PO (08:27)
[2021-03-24] MEDS: Aspirin 81 MG TAB.CHEW PO (08:27)
[2021-03-24] MEDS: Omeprazole 20 MG CAPSULE.DR PO (08:28)
--- NOTE | 2021-03-24 13:35 | HO.PSYCHPN ---
Subjective Subjective Date of Service: 03/24/21 Reason For Visit: SI Interim History: presentation as per yesterday. feeling well, pain remains improved, interested in discharge thursday bcs he gets pain . no complaints or requests. per staff, med-compliant, silly. laughing. 5/10 pain in legs. got trazodone last night for insomnia at 10:40, slept well after. Mental Status Exam Mental Status Exam Narrative: Appearance: thin, disheveled, poor hygiene, edentulous, in NAD Behavior:cooperative, calm psychomotor: no agitation or retardation noted Speech:mumbles, difficult to understand due to edentulous, pressured speech, wnl tone, spontaneous Thought process:tangential at times, no loose association Thought content:no signs of psychosis, increasingly more hopeful, looking forward to return home with services Mood: not assessed Affect: full range, flexible SI:none expressed HI:none expressed VH/AH:none expressed Delusions:none Insight/judgment:fair x 2. Diagnostics Vital Signs (24Hr): Vital Signs - 24 hr 03/23/21 21:30 03/24/21 08:23 03/24/21 08:25 Temperature 98.1 F 98.1 F Pulse Rate 96 94 94 Respiratory Rate 17 Blood Pressure 113/73 121/76 121/76 Pulse Oximetry 93 94 03/24/21 08:27 Temperature Pulse Rate 94 Respiratory Rate Blood Pressure 121/76 Pulse Oximetry Body Mass Index 33.5 Labs Results: 03/18/21 07:21 03/18/21 07:21 Labs: Laboratory Results - last 48 hr 03/22/21 03/22/21 03/23/21 17:15 20:26 07:44 POC Glucose 273 H 281 H 262 H 03/23/21 03/23/21 17:23 20:35 POC Glucose 241 H 268 H Medications Medications Current Medications Acetaminophen (Acetaminophen 325 Mg Tablet) 650 mg PO Q6H PRN PRN Reason: Headache/Pain Mild Scale (1-3) Last Admin: 03/21/21 14:36 Dose: 650 mg Documented by: Al Hydroxide/Mg Hydroxide (Magnesium Hydrox/Alum Hydrox 30 Ml Oral.Susp) 30 ml PO Q6H PRN PRN Reason: Heartburn/Nausea Aspirin (Aspirin 81 Mg Tab.Chew) 81 mg PO DAILY [facility] Last Admin: 03/24/21 08:27 Dose: 81 mg Documented by: Atorvastatin Calcium (Atorvastatin Calcium 40 Mg Tablet) 40 mg PO DAILY [facility] Last Admin: 03/24/21 08:27 Dose: 40 mg Documented by: Buprenorphine/Naloxone (Buprenorphine/Naloxone 2/0.5mg Film) 1 film SUBLINGUAL DAILY [facility] Last Admin: 03/24/21 08:25 Dose: 1 film Documented by: Buprenorphine/Naloxone (Buprenorphine/Naloxone 2/0.5mg Film) 1 film SUBLINGUAL 1400 [facility] Last Admin: 03/23/21 14:20 Dose: 1 film Documented by: Duloxetine HCl (Duloxetine Hcl 30 Mg Capsule.) 30 mg PO DAILY [facility] Last Admin: 03/24/21 08:25 Dose: 30 mg Documented by: Fenofibrate (Fenofibrate 54 Mg Tablet) 54 mg PO DAILY [facility] Last Admin: 03/24/21 08:25 Dose: 54 mg Documented by: Gabapentin (Gabapentin 300 Mg Capsule) 600 mg PO TID [facility] Last Admin: 03/24/21 08:26 Dose: 600 mg Documented by: Hydroxyzine HCl (Hydroxyzine Hcl 25 Mg Tablet) 25 mg PO Q6H PRN PRN Reason: Anxiety Last Admin: 03/23/21 00:16 Dose: 25 mg Documented by: Lisinopril (Lisinopril 20 Mg Tablet) 20 mg PO DAILY [facility]; Protocol Last Admin: 03/24/21 08:27 Dose: 20 mg Documented by: Magnesium Hydroxide (Milk Of Magnesia 30 Ml Oral.Susp) 30 ml PO DAILY PRN PRN Reason: Constipation Metformin HCl (Metformin Hcl Er 500 Mg Tab.Er.24h) 1,000 mg PO BID [facility] Last Admin: 03/24/21 08:27 Dose: 1,000 mg Documented by: Metoprolol Succinate (Metoprolol Succinate Er 25 Mg Tab.Er.24h) 25 mg PO DAILY [facility]; Protocol Last Admin: 03/24/21 08:25 Dose: 25 mg Documented by: Nicotine (Nicotine 21 Mg Patch.Td24) 21 mg TRANSDERMA DAILY [facility] Last Admin: 03/24/21 08:24 Dose: 21 mg Documented by: Omeprazole (Omeprazole 20 Mg Capsule.) 20 mg PO DAILY@0600 [facility] Last Admin: 03/24/21 08:28 Dose: 20 mg Documented by: Quetiapine Fumarate (Quetiapine Fumarate 100 Mg Tablet) 100 mg PO BEDTIME [facility] Last Admin: 03/23/21 20:41 Dose: 100 mg Documented by: Trazodone HCl (Trazodone Hcl 50 Mg Tablet) 50 mg PO BEDTIME PRN PRN Reason: Insomnia Last Admin: 03/23/21 20:41 Dose: 50 mg Documented by: Allergies Allergies Allergy/AdvReac Type Severity Reaction Status Date / Time No Known Allergies Allergy Verified 03/18/21 06:54 Assessment & Plan Assessment & Plan (1) Opioid use disorder, mild, in sustained remission: Status: Acute Code(s): F11.11 - Opioid abuse, in remission Assessment and Plan: additional 2mg suboxone ordered for 2pm daily follow up as necessary Assessment and Plan: restarted Suboxone at 2mg QD. Patient familiar with medication, dosing, goals of treatment and side effects. Monitor for any sedation and hold dose if necessary. Will follow and titrate dose as necessary. 03/22 and additional 2 mg dose added at 2 pm. Patient wishes to resume care with [facility] provider in [place] upon discharge. I spent minutes with the patient and/or on the patient floor today, greater than?50% of which was spent counseling/coordinating care. Reason for contiued inpatient stay Substantial Risk for: inability to function and rapid decompensation
[2021-03-24 16:15] LABS: Glucose, Whole Blood 234 mg/dL (60-115)
[2021-03-24 17:30] LABS: Glucose, Whole Blood 262 mg/dL (60-115)
[2021-03-24 18:00] VITALS: BP 113/65; PULSE 93; RESP 18; TEMP 36.9; O2SAT 95
[2021-03-24] MEDS: traZODone HCL 50 MG TABLET PO (20:28)
[2021-03-24] MEDS: QUEtiapine Fumarate 100 MG TABLET PO (20:29)
[2021-03-25 08:09] VITALS: BP 119/66; PULSE 95; RESP 17; TEMP 36.7; O2SAT 94
[2021-03-25] MEDS: Buprenorphine/Naloxone 2/0.5mg FILM 1 FILM SUBLINGUAL ×2 (08:27→14:38)
[2021-03-25] MEDS: Nicotine 21 MG PATCH.TD24 TRANSDERMA (08:27)
[2021-03-25] MEDS: Atorvastatin Calcium 40 MG TABLET PO (08:27)
[2021-03-25 08:28] VITALS: BP 119/66; PULSE 95
[2021-03-25] MEDS: Omeprazole 20 MG CAPSULE.DR PO (08:28)
[2021-03-25] MEDS: Fenofibrate 54 MG TABLET PO (08:28)
[2021-03-25] MEDS: DULoxetine HCl 30 MG CAPSULE.DR PO (08:28)
[2021-03-25] MEDS: Metoprolol Succinate ER 25 MG TAB.ER.24H PO (08:28)
[2021-03-25 08:29] VITALS: BP 119/66; PULSE 95
[2021-03-25] MEDS: lisinopriL 20 MG TABLET PO (08:29)
[2021-03-25] MEDS: metFORMIN HCl ER 500 MG TAB.ER.24H 1000 MG PO ×2 (08:29→20:35)
[2021-03-25] MEDS: Aspirin 81 MG TAB.CHEW PO (08:30)
[2021-03-25] MEDS: Gabapentin 300 MG CAPSULE 600 MG PO ×3 (08:30→20:35)
[2021-03-25 08:58] LABS: Glucose, Whole Blood 250 mg/dL (60-115)
[2021-03-25 09:13] LABS: Creatinine Clr Calc Pharmacy 93.9; Estimated Glomerular Filt Rate > 60
--- NOTE | 2021-03-25 11:28 | P.PNPSI_ITS ---
Subjective Subjective Date of Service: 03/25/21 Reason For Visit: SI Subjective Notes: Conditional Voluntary Interim History: Pt reports mood much improved in that he feels much more hopeful, less depressed. Pt concern about managing his DM, looking at sugar content of his regular meals/drinks. He reports sleeping better. He reports less leg pain. He has been more visible in the unit, social with select peers. No behavioral concerns. He denies SI/HI. He reports looking forward to return home tomorrow. Medication Compliance: Yes Side effects from medications: No Review of Systems Review of Systems Constitutional : No Fever, No Chills ENT/Mouth : No Ear Pain, No Nasal Congestion, No sore throat Eyes: No Eye Pain, No Swelling, No Redness Cardiovascular : No Chest Pain, No SOB Respiratory : No Cough, No Sputum, No Dyspnea Gastrointestinal : No Nausea, No Vomiting, No Diarrhea, No Hematochezia, No Melena Genitourinary : No Dysuria, No Urinary Frequency, No Hematuria Musculoskeletal : No Myalgias Skin : No Skin Lesions, No rash Neuro : No Weakness, No Numbness, No Paresthesias, No Dizziness, No Headache Psych : positive Anxiety, positive Depression, positive SI no HI Heme/Lymph: No Lymphadenopathy Endocrine : No Polyuria, No Polydipsia All other systems reviewed and are negative Constitutional: Denies snoring and Reports weakness (lower extremities ) Denies dysphagia Cardiovascular: Denies chest pain, Denies chest pain at rest, Denies epigastric discomfort, Denies pedal edema, Denies edema, Denies lightheadedness, Denies Loss of Consciousness, Denies radiating jaw, neck or arm pain, Denies palpitations, Denies dyspnea and Denies dyspnea on exertion Respiratory: Denies dyspnea, Denies dyspnea on exertion and Denies snoring Gastrointestinal: Denies constipation, Denies dysphagia, Denies diarrhea, Denies loose stools, Denies nausea and Denies vomiting Musculoskeletal: Reports myalgias, Reports atrophy, Reports arthralgias, Reports limited range of motion and Reports other (wheelchair for ambulation ) Reports weakness (lower extremities ) Psychiatric: Reports anxiety, Reports change in appetite, Reports depression, Reports hopelessness and Reports anhedonia Endocrine: Denies palpitations Mental Status Exam Mental Status Exam Narrative: Appearance: thin, disheveled, poor hygiene, edentulous, in NAD Behavior:cooperative, calm psychomotor: no agitation or retardation noted Speech:mumbles, difficult to understand due to edentulous, pressured speech, wnl tone, spontaneous Thought process:tangential at times, no loose association Thought content:no signs of psychosis, increasingly more hopeful, looking forward to return home with services Mood: not assessed Affect: full range, flexible SI:none expressed HI:none expressed VH/AH:none expressed Delusions:none Insight/judgment:fair x 2. Diagnostics Vital Signs (24Hr): Vital Signs - 24 hr 03/24/21 18:00 03/25/21 08:09 03/25/21 08:28 Temperature 98.4 F 98.0 F Pulse Rate 93 95 95 Respiratory Rate 18 17 Blood Pressure 113/65 119/66 119/66 Pulse Oximetry 95 94 03/25/21 08:29 Temperature Pulse Rate 95 Respiratory Rate Blood Pressure 119/66 Pulse Oximetry Body Mass Index 33.5 Labs Results: 03/18/21 07:21 03/25/21 08:15 Labs: Laboratory Results - last 48 hr 03/23/21 03/23/21 03/24/21 17:23 20:35 08:43 Creatinine Estim Creat Clear Calc Estimated GFR POC Glucose 241 H 268 H 234 H 03/24/21 03/25/21 03/25/21 17:25 08:15 08:25 Creatinine 0.86 Estim Creat Clear Calc 93.9 Estimated GFR > 60 POC Glucose 262 H 250 H Medications Medications Current Medications Acetaminophen (Acetaminophen 325 Mg Tablet) 650 mg PO Q6H PRN PRN Reason: Headache/Pain Mild Scale (1-3) Last Admin: 03/21/21 14:36 Dose: 650 mg Documented by: Al Hydroxide/Mg Hydroxide (Magnesium Hydrox/Alum Hydrox 30 Ml Oral.Susp) 30 ml PO Q6H PRN PRN Reason: Heartburn/Nausea Aspirin (Aspirin 81 Mg Tab.Chew) 81 mg PO DAILY [facility] Last Admin: 03/25/21 08:30 Dose: 81 mg Documented by: Atorvastatin Calcium (Atorvastatin Calcium 40 Mg Tablet) 40 mg PO DAILY [facility] Last Admin: 03/25/21 08:27 Dose: 40 mg Documented by: Buprenorphine/Naloxone (Buprenorphine/Naloxone 2/0.5mg Film) 1 film SUBLINGUAL DAILY [facility] Last Admin: 03/25/21 08:27 Dose: 1 film Documented by: Buprenorphine/Naloxone (Buprenorphine/Naloxone 2/0.5mg Film) 1 film SUBLINGUAL 1400 [facility] Last Admin: 03/24/21 14:23 Dose: 1 film Documented by: Duloxetine HCl (Duloxetine Hcl 30 Mg Capsule.) 30 mg PO DAILY [facility] Last Admin: 03/25/21 08:28 Dose: 30 mg Documented by: Fenofibrate (Fenofibrate 54 Mg Tablet) 54 mg PO DAILY [facility] Last Admin: 03/25/21 08:28 Dose: 54 mg Documented by: Gabapentin (Gabapentin 300 Mg Capsule) 600 mg PO TID [facility] Last Admin: 03/25/21 08:30 Dose: 600 mg Documented by: Hydroxyzine HCl (Hydroxyzine Hcl 25 Mg Tablet) 25 mg PO Q6H PRN PRN Reason: Anxiety Last Admin: 03/23/21 00:16 Dose: 25 mg Documented by: Lisinopril (Lisinopril 20 Mg Tablet) 20 mg PO DAILY [facility]; Protocol Last Admin: 03/25/21 08:29 Dose: 20 mg Documented by: Magnesium Hydroxide (Milk Of Magnesia 30 Ml Oral.Susp) 30 ml PO DAILY PRN PRN Reason: Constipation Metformin HCl (Metformin Hcl Er 500 Mg Tab.Er.24h) 1,000 mg PO BID [facility] Last Admin: 03/25/21 08:29 Dose: 1,000 mg Documented by: Metoprolol Succinate (Metoprolol Succinate Er 25 Mg Tab.Er.24h) 25 mg PO DAILY [facility]; Protocol Last Admin: 03/25/21 08:28 Dose: 25 mg Documented by: Nicotine (Nicotine 21 Mg Patch.Td24) 21 mg TRANSDERMA DAILY [facility] Last Admin: 03/25/21 08:27 Dose: 21 mg Documented by: Omeprazole (Omeprazole 20 Mg Capsule.) 20 mg PO DAILY@0600 [facility] Last Admin: 03/25/21 08:28 Dose: 20 mg Documented by: Quetiapine Fumarate (Quetiapine Fumarate 100 Mg Tablet) 100 mg PO BEDTIME [facility] Last Admin: 03/24/21 20:29 Dose: 100 mg Documented by: Trazodone HCl (Trazodone Hcl 50 Mg Tablet) 50 mg PO BEDTIME PRN PRN Reason: Insomnia Last Admin: 03/24/21 20:28 Dose: 50 mg Documented by: Allergies Allergies Allergy/AdvReac Type Severity Reaction Status Date / Time No Known Allergies Allergy Verified 03/18/21 06:54 Assessment & Plan Assessment & Plan (1) Opioid use disorder, mild, in sustained remission: Status: Acute Code(s): F11.11 - Opioid abuse, in remission Assessment and Plan: * additional 2mg suboxone ordered for 2pm daily * follow up as necessary (2) MDD (major depressive disorder), recurrent episode, moderate: Status: Acute Code(s): F33.1 - Major depressive disorder, recurrent, moderate Assessment and Plan: continue cymbalta for depression discharge for 03/26 Assessment and Plan: * restarted Suboxone at 2mg QD. Patient familiar with medication, dosing, goals of treatment and side effects. Monitor for any sedation and hold dose if necessary. Will follow and titrate dose as necessary. 03/22 and additional 2 mg dose added at 2 pm. * Patient wishes to resume care with [facility] provider in [place] upon discharge. * * I spent minutes with the patient and/or on the patient floor today, greater than?50% of which was spent counseling/coordinating care. Reason for contiued inpatient stay Substantial Risk for: stable for discharge
[2021-03-25] MEDS: Milk of Magnesia 30 ML ORAL.SUSP PO (16:24)
[2021-03-25] MEDS: Glycerin Adult SUPP.RECT 1 SUPP PR (18:38)
[2021-03-25] MEDS: QUEtiapine Fumarate 100 MG TABLET PO (20:36)
[2021-03-25] MEDS: traZODone HCL 50 MG TABLET PO (20:36)
[2021-03-26 00:22] LABS: Glucose, Whole Blood 262 mg/dL (60-115)
[2021-03-26 06:00] VITALS: BP 114/76; PULSE 92; RESP 16; TEMP 36.6; O2SAT 92
[2021-03-26] MEDS: Gabapentin 300 MG CAPSULE 600 MG PO (08:53)
[2021-03-26] MEDS: Aspirin 81 MG TAB.CHEW PO (08:53)
[2021-03-26] MEDS: Omeprazole 20 MG CAPSULE.DR PO (08:53)
[2021-03-26] MEDS: Fenofibrate 54 MG TABLET PO (08:53)
[2021-03-26] MEDS: Atorvastatin Calcium 40 MG TABLET PO (08:53)
[2021-03-26 08:54] VITALS: BP 114/76; PULSE 92
[2021-03-26] MEDS: Metoprolol Succinate ER 25 MG TAB.ER.24H PO (08:54)
[2021-03-26] MEDS: DULoxetine HCl 30 MG CAPSULE.DR PO (08:54)
[2021-03-26] MEDS: Buprenorphine/Naloxone 2/0.5mg FILM 1 FILM SUBLINGUAL ×2 (08:54→13:18)
[2021-03-26] MEDS: lisinopriL 20 MG TABLET PO (08:54)
[2021-03-26 09:30] LABS: Glucose, Whole Blood 294 mg/dL (60-115)
[2021-03-26] MEDS: metFORMIN HCl ER 500 MG TAB.ER.24H 1000 MG PO (10:11)
[2021-03-26] MEDS: Naloxone HCl Nasal 4 MG SPRAY NOSTRILALT (13:16)
--- NOTE | 2021-03-26 13:34 | PM.PSYDC ---
DS: Providers Provider Date of Service: 03/26/21 Date of admission: 03/19/21 13:18 Primary care physician: Danielle Elizabeth NP DS: Diagnosis Discharge Diagnosis (1) Opioid use disorder, mild, in sustained remission: Status: Acute (2) MDD (major depressive disorder), recurrent episode, moderate: Status: Acute DS: Medications Discharge Medications Home Medications: Home Medications Medication Instructions Recorded Confirmed aspirin 81 mg chewable tablet 81 mg PO DAILY 03/18/21 03/18/21 pantoprazole 40 mg tablet,delayed 1 tab PO DAILY 03/18/21 03/18/21 release Previous Rx's Medication Instructions Recorded buprenorphine 2 mg-naloxone 0.5 mg 1 film SUBLINGUAL BID 10 Days #20 03/25/21 sublingual film (Suboxone) ea atorvastatin 40 mg tablet 40 mg PO DAILY #30 tab 03/26/21 blood-glucose meter #1 ea 03/26/21 duloxetine 30 mg capsule,delayed 30 mg PO DAILY #30 cap 03/26/21 release fenofibrate 54 mg tablet 54 mg PO DAILY #30 tab 03/26/21 gabapentin 300 mg capsule 600 mg PO TID #60 cap 03/26/21 lisinopril 20 mg tablet 20 mg PO DAILY #30 tab 03/26/21 metformin 500 mg tablet,extended 1,000 mg PO BID #60 tab 03/26/21 release 24 hr metoprolol succinate 25 mg 25 mg PO DAILY #30 tab 03/26/21 tablet,extended release 24 hr nicotine 21 mg/24 hr daily 21 mg TRANSDERMAL DAILY #30 ea 03/26/21 transdermal patch quetiapine 100 mg tablet 100 mg PO BEDTIME #30 tab 03/26/21 Mental Status Exam Mental Status Exam Narrative: Appearance: thin, disheveled, poor hygiene, edentulous, in NAD Behavior:cooperative, calm psychomotor: no agitation or retardation noted Speech:mumbles, difficult to understand due to edentulous, pressured speech, wnl tone, spontaneous Thought process:tangential at times, no loose association Thought content:no signs of psychosis, increasingly more hopeful, looking forward to return home with services Mood: not assessed Affect: full range, flexible SI:none expressed HI:none expressed VH/AH:none expressed Delusions:none Insight/judgment:fair x 2. Data Data Completed and Pending Completed studies during hospitalization [Text1]: 03/19/21 03/19/2103/20/21 15:23 20:55 06:42 Creatinine Estim Creat Clear Calc Estimated GFR POC Glucose 269 H 238 H Estimat Average Glucose Hemoglobin A1c % Magnesium 1.6 Triglycerides Cholesterol LDL Cholesterol, Calc HDL Cholesterol Lipase Vitamin B12 Folate [facility] 03/20/21 03/20/21 03/20/21 08:02 08:02 08:02 Creatinine Estim Creat Clear Calc Estimated GFR POC Glucose Estimat Average Glucose 217 Hemoglobin A1c % 9.2 Magnesium Triglycerides 647 Cholesterol 151 LDL Cholesterol, Calc TNP HDL Cholesterol 22 Lipase Vitamin B12 491 Folate 7.4 TSH 2.10 03/20/21 03/21/21 03/21/21 20:53 08:41 11:28 Creatinine Estim Creat Clear Calc Estimated GFR POC Glucose 299 H 259 H Estimat Average Glucose Hemoglobin A1c % Magnesium Triglycerides Cholesterol LDL Cholesterol, Calc HDL Cholesterol Lipase 90 H Vitamin B12 Folate [facility] 03/21/21 03/21/21 03/22/21 18:33 20:09 08:53 Creatinine Estim Creat Clear Calc Estimated GFR POC Glucose 278 H 267 H 190 H Estimat Average Glucose Hemoglobin A1c % Magnesium Triglycerides Cholesterol LDL Cholesterol, Calc HDL Cholesterol Lipase Vitamin B12 Folate [facility] 03/22/21 03/22/21 03/23/21 17:15 20:26 07:44 Creatinine Estim Creat Clear Calc Estimated GFR POC Glucose 273 H 281 H 262 H Estimat Average Glucose Hemoglobin A1c % Magnesium Triglycerides Cholesterol LDL Cholesterol, Calc HDL Cholesterol Lipase Vitamin B12 Folate [facility] 03/23/21 03/23/21 03/24/21 17:23 20:35 08:43 Creatinine Estim Creat Clear Calc Estimated GFR POC Glucose 241 H 268 H 234 H Estimat Average Glucose Hemoglobin A1c % Magnesium Triglycerides Cholesterol LDL Cholesterol, Calc HDL Cholesterol Lipase Vitamin B12 Folate [facility] 03/24/21 03/25/21 03/25/21 17:25 08:15 08:25 Creatinine 0.86 Estim Creat Clear Calc 93.9 Estimated GFR > 60 POC Glucose 262 H 250 H Estimat Average Glucose Hemoglobin A1c % Magnesium Triglycerides Cholesterol LDL Cholesterol, Calc HDL Cholesterol Lipase Vitamin B12 Folate [facility] 03/25/21 03/26/21 17:50 08:51 Creatinine Estim Creat Clear Calc Estimated GFR POC Glucose 262 H 294 H Estimat Average Glucose Hemoglobin A1c % Magnesium Triglycerides Cholesterol LDL Cholesterol, Calc HDL Cholesterol Lipase Vitamin B12 Folate TSH DS: Summary Hospital Course Hospital Course: HPI: Mr. Vizcaino is a 60 year-old male with hx of DM, HTN, MDD, cocaine use disorder and opioid use disorder in remission who self presented to [facility] ED reporting increase depression for past year in context of relapse on cocaine a year ago and chronic pain related to arthritis. In the ED, his utox is positive for cocaine. On the unit, pt presents as pleasant, calm. He reports struggling with depression for about one year mostly due to chronic pain. Pt reports limited supports in the community. He states he is not close to family. He endorse depressed mood, feeling hopeless/helpless, anhedonia. On the unit, pt denies any plan or intent to hurt himself. He presents somewhat hopeful in that he think it will be beneficial to connect with OP psych providers and start medication for depression. He denies hx of VH/AH. He denies periods of increase energy, grandiose or elated mood, risk taking behavior (other than substance use). Past Psychiatric History: Inpatient: pt has 3 prior inpt admission.? OP: none currently Suicide attempts: none Past medication trials: seroquel, cymbalta, gabapentin Medical Evaluation Reviewed: Yes HOSPITAL COURSE On the unit, Mr. Vizcaino was admitted on a CV and placed on 15 minutes checks for safety. Pt reported feeling depressed, hopeless, helpless. He notes increase use of cocaine in setting of chronic back pain/neuropathic pain. After discussing risks, benefits and alternative treatment options. Pt agreed to start cymbalta for depression with some potential benefit for neuropathic pain. Pt was also started on suboxone for hx of opioid use in early remission. His affect gradually brighten. He reported less symptoms of depression. He presented as much more hopeful about his future and recovery. He denied SI/HI. He was increasingly more visible in the unit and attended assigned groups. There were no incidences of disruptive behaviors nor use of restraints. Pt's triglecerides found to be significantly elevated >600. Pt started on fenofibrate 54mg po daily. No signs of acute pancreatitis. Pt agreed to continue OP psych treatment. He declined further referrals for substance use treatment other than suboxone clinic. Time spent discussing smoking cessation with patient: 3 to 10 minutes Status at Discharge Cognitive/behavioral status at discharge: Pt with much brighter affect, improved hygiene. Pt reports decreased symptoms of depression, increasingly future oriented and hopeful about his future. No SI/HI. No signs of aggression towards self or others. Pt was given narcan take home on discharge as harm prevention measure. Functional status at discharge: wheelchair bound Overall status at discharge: patient is progressing back to baseline Time Spent with Patient Time attestation: Total time spent providing and/or coordinating discharge services: Time spent: Greater than 30 minutes Discharge Plan Discharge Patient Disposition: Home, Self-Care Discharge Diagnosis: MDD, recurrent, moderate Cocaine Use Disorder Referrals: PATRICIA MIRANDA [Other] - 04/04/21 1:00 pm (OFFICE APPOINTMENT) Bryanna GALLARDO [Other] - 1 Week Jossie Serrato (psychiatrist) [Other] - 04/25/21 11:00 am (In office appointment) Kayleigh Comer (therapy intake) [Other] - 03/29/21 9:00 am (In office appointment) Jossie Serrato (psychiatrist) [Other] - 05/21/21 11:30 am (In office appointment) Danielle Elizabeth NP [Primary Care Provider] - 1 Week (The provider would call to schedule follow up appt) Discharge Medications: New atorvastatin 40 mg Tablet 40 mg PO DAILY Qty: 30 RF: 0 lisinopril 20 mg Tablet 20 mg PO DAILY Qty: 30 RF: 0 quetiapine 100 mg Tablet 100 mg PO BEDTIME Qty: 30 RF: 0 nicotine 21 mg/24 hr Patch 24 Hour 21 mg transdermal DAILY Qty: 30 RF: 0 gabapentin 300 mg Capsule 600 mg PO TID Qty: 60 RF: 0 metoprolol succinate 25 mg Tablet Extended Release 24 Hr 25 mg PO DAILY Qty: 30 RF: 0 metformin 500 mg Tablet Extended Release 24 Hr 1,000 mg PO BID Qty: 60 RF: 0 duloxetine 30 mg Capsule,Delayed Release(Dr/Ec) 30 mg PO DAILY Qty: 30 RF: 0 fenofibrate 54 mg Tablet 54 mg PO DAILY Qty: 30 RF: 0 (DME) blood-glucose meter Kit See Rx Instructions .Route Qty: 1 RF: 0 Continued buprenorphine-naloxone [Suboxone] 2-0.5 mg film 1 film sublingual BID 10 Days Qty: 20 RF: 0 pantoprazole 40 mg tablet,delayed release (DR/EC) 1 tab PO DAILY RF: 0 aspirin 81 mg Tablet,Chewable 81 mg PO DAILY RF: 0 Discontinued atorvastatin 40 mg tablet 1 tab PO DAILY RF: 0 lisinopril 20 mg tablet 1 tab PO DAILY RF: 0 quetiapine 100 mg tablet 1 tab PO BEDTIME RF: 0 gabapentin 300 mg capsule 2 cap PO TID RF: 0 metoprolol succinate 25 mg tablet extended release 24 hr 1 tab PO DAILY RF: 0 metformin 750 mg tablet extended release 24 hr 1 tab PO BID RF: 0 duloxetine 30 mg capsule,delayed release(DR/EC) 1 cap PO DAILY RF: 0 Discharge Orders: Discharge Order (Routine); Ordered 03/26/21 Ordered By: Magda Herrera Diet: regular diet Activity on Discharge: As tolerated Stand Alone Forms: Patient Portal Discharge page, Community Support Care Plan Goals: 1. Maintain mood 2. No SI/HI. 3. harm reduction- take home narcan Health Concerns: 1. Follow up with PCP 2. Pt need Physical Therapy assessment and evaluation for lower leg weakness, gait impairment ambulating on wheel chair- either PCP or VNA to facilitate referral. Plan of Treatment: 1. Take medications as prescribed 2. Go to nearest ED in event of emergency Assessment: Pt with much brighter affect. He reports decreased symptoms of depression, more hopeful. No SI/HI. Discharge Date/Time: 03/26/21 13:37
== END 2021-03-26 13:37 | disposition home or self-care (01) | DRG 751 ==
LOC: HO.ED 03-19 12:21 → HO.PADLT16 03-19 13:30
PROVIDERS: Admitting Provider Psychiatry & Neurology Psychiatry; Emergency Provider Emergency Medicine; PCP Nurse Practitioner Family; Visit Provider Social Worker
DX: F33.1 Major depressive disorder, recurrent, moderate (principal); R45.851 Suicidal ideations; F17.210 Nicotine dependence, cigarettes, uncomplicated; Z91.14 Patient's other noncompliance with medication regimen; F11.20 Opioid dependence, uncomplicated; F14.20 Cocaine dependence, uncomplicated; M19.90 Unspecified osteoarthritis, unspecified site; Z20.822 Contact with and (suspected) exposure to COVID-19; Z71.6 Tobacco abuse counseling; Z79.82 Long term (current) use of aspirin; Z79.84 Long term (current) use of oral hypoglycemic drugs; Z79.899 Other long term (current) drug therapy
CPT/HCPCS: 36415; 80048; 80061; 80076; 80307; 82077; 82565; 82607; 82746; 82947; 83036; 83690; 83735; 84443; 85025; 87635; 93005; 99285; J3475

== ENCOUNTER 2021-04-11 12:58 | Observation (INO) | payer MEDICAID, SELFPAY ==
--- NOTE | ~2021-04-11 | CT_ITS ---
EXAMINATION: CT CHEST, ABDOMEN AND PELVIS WITH CONTRAST CLINICAL INFORMATION: Vomiting and abdominal pain chest pain. COMPARISON: No pertinent prior studies are available for comparison. TECHNIQUE: Multidetector volumetric imaging was performed from the thoracic inlet through the pubic symphysis without oral or IV contrast. Sagittal and coronal reformatted images were obtained on the technologist workstation. This CT examination was performed using dose optimization techniques as appropriate, variously including the following: *Automated exposure control *Adjustment of mA and/or kV according to patient size (this includes techniques or standardized protocols for targeted exams where dose is matched to indication/reason for exam; i.e. extremities or head) *Use of iterative reconstruction technique DLP: 275 mGy-cm. FINDINGS: CHEST: Lungs: Central airways are patent. There appears be some tracheal scarring just above the digna. There are mild to moderate changes of centrilobular emphysema seen within the upper lobes bilaterally. Patient appears be status post right lower lobectomy with loss of volume and shift of mediastinal structures to the right. There are bilateral scattered sub-4 mm densities present. There are regions of discoid atelectasis or scarring seen within the lingula and left lower lobe. There is a 2.0 x 2.0 cm density seen right lung base medially which may represent small region of loculated fluid or be related to postsurgical change. I do not have access to previous studies but not performed at this institution for comparison. Mediastinum: There is postsurgical change present. Heart normal size. Coronary artery calcification is seen. The ascending thoracic aorta measures up to 3.9 cm in diameter. No definite mediastinal or hilar lymphadenopathy is appreciated. 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 Pericardium/Pleura: There is no significant effusion. Right-sided postsurgical change noted. Chest Wall/Axilla: No axillary lymphadenopathy. Partial resection posterior aspect of the right seventh rib. Multiple other healed right rib fractures. Multilevel degenerative disc disease. ABDOMEN/PELVIS: Liver, Gallbladder, Biliary Tree: There is diffuse fatty infiltration of the liver. No focal mass or intrahepatic bile duct dilatation is identified. No gallbladder wall thickening or pericholecystic fluid is identified. No cholelithiasis. Pancreas: Unremarkable. Spleen: Unremarkable. Adrenal Glands: Unremarkable. Kidneys and Ureters: The kidneys are normal in size, shape, and attenuation. No hydronephrosis or hydroureter or calculi seen. No perinephric stranding. Bladder: Unremarkable. Gastrointestinal Tract: No dilated loops of large or small bowel are evident. No free air or free fluid. There may be thickening of the distal esophageal wall. No evidence of esophageal rupture into the pleural space is identified. No mediastinal evidence of fracture is seen. No pericolonic inflammatory change. The appendix is visualized and appears unremarkable. Abdominal Wall: There is a small fat-containing left inguinal hernia. Lymph Nodes: No lymphadenopathy is appreciated. Vascular: There is mild to moderate arterial calcified plaque seen in the aortoiliac system. There is a 2.8 cm infrarenal abdominal aortic aneurysm which does not extend to the bifurcation. Pelvic Viscera: Unremarkable. Osseous Structures: Old healed pelvic fractures identified involving the right iliac crest and right superior pubic ramus. CT/CT abdomen pelvis wo con IMPRESSION: [id number] changes of centrilobular emphysema within the upper lobes bilaterally. Status post right lower lobectomy without mediastinal lymphadenopathy appreciated. 2 cm density right lung base which may be postsurgical in nature. I cannot tell chronicity as there are no studies to compare to at this institution. 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 Diffuse fatty infiltration of the liver. No evidence of esophageal rupture. Question thickened distal esophageal wall.
--- NOTE | ~2021-04-11 | XR_ITS ---
EXAMINATION: XR ABDOMEN KUB CLINICAL INDICATION: Abdominal pain, nausea and vomiting COMPARISON: CT abdomen and pelvis TECHNIQUE: AP view of the abdomen. FINDINGS: There is moderate stool and gas seen throughout the colon without any significant distention. The small bowel loops are normal caliber. There is no organomegaly. No gross bony abnormality seen. XR/XR KUB IMPRESSION: Mild constipation.
--- NOTE | 2021-04-11 13:26 | ECG_ITS ---
Test Reason : CP Blood Pressure : / mmHG Vent. Rate : 102 BPM Atrial Rate : 102 BPM P-R Int : 174 ms QRS Dur : 096 ms QT Int : 336 ms P-R-T Axes : 016 011 043 degrees QTc Int : 437 ms Sinus tachycardia Possible Inferior infarct , age undetermined Abnormal ECG When compared with ECG of 18-MAR-2021 08:20, No significant change was found Referred By: Lily Mosqueda Electronically Signed By:BETINA SULLIVAN MD
--- NOTE | 2021-04-11 13:36 | ED_ITS ---
HPI - Nausea/Vomiting/Diarrhea General Chief complaint: Nausea/Vomiting/Diarrhea Stated complaint: L CP AND VOMITING SINCE LAST NOC,? BAD FOOD Time Seen by Provider: 04/11/21 13:00 Source: patient and old records reviewed Mode of arrival: EMS Limitations: no limitations History of Present Illness HPI Narrative: ate chicken from the [employer] store last night started vomiting 30 minutes later - vomited all night developed substernal chest tightness after vomiting MD elicited complaint: nausea, vomiting and abdominal pain (chest pain) Pertinent past history: abdominal surgery Onset (ago): day(s) (last night before bed) Description of vomiting: food contents, watery and coffee grounds Associated nausea: Yes Associated abdominal pain: Yes Location of pain: chest and epigastric Radiation: diffuse Pain consistency: constant Severity: moderate Quality: cramping Exacerbating factors: eating Relieving factors: none Context: possible food poisoning Associated symptoms: chest pain, malaise, nausea/vomiting and weakness Related Data Home Medications Medication Instructions Recorded Confirmed aspirin 81 mg chewable tablet 81 mg PO DAILY 03/18/21 04/11/21 pantoprazole 40 mg tablet,delayed 1 tab PO DAILY 03/18/21 04/11/21 release Previous Rx's Medication Instructions Recorded buprenorphine 2 mg-naloxone 0.5 mg 1 film SUBLINGUAL BID 10 Days #20 03/25/21 sublingual film (Suboxone) ea atorvastatin 40 mg tablet 40 mg PO DAILY #30 tab 03/26/21 blood-glucose meter #1 ea 03/26/21 duloxetine 30 mg capsule,delayed 30 mg PO DAILY #30 cap 03/26/21 release fenofibrate 54 mg tablet 54 mg PO DAILY #30 tab 03/26/21 gabapentin 300 mg capsule 600 mg PO TID #60 cap 03/26/21 lisinopril 20 mg tablet 20 mg PO DAILY #30 tab 03/26/21 metformin 500 mg tablet,extended 1,000 mg PO BID #60 tab 03/26/21 release 24 hr metoprolol succinate 25 mg 25 mg PO DAILY #30 tab 03/26/21 tablet,extended release 24 hr nicotine 21 mg/24 hr daily 21 mg TRANSDERMAL DAILY #30 ea 03/26/21 transdermal patch quetiapine 100 mg tablet 100 mg PO BEDTIME #30 tab 03/26/21 Allergies Allergy/AdvReac Type Severity Reaction Status Date / Time No Known Allergies Allergy Verified 03/18/21 06:54 Review of Systems Review of Systems: Constitutional : No Weight loss, No Fever, No Chills ENT/Mouth : No sore throat, No Rhinorrhea Eyes: No Swelling, No Redness Cardiovascular : pos Chest Pain, No SOB, NoEdema Respiratory : No Cough, No Sputum, No Wheezing Gastrointestinal : Positive Nausea, Positive Vomiting, no Diarrhea, positive abdominal Pain, No Hematochezia, No Melena Genitourinary : No Dysuria, No Urinary Frequency, No Hematuria, No Urgency Musculoskeletal : No joint pain, No Myalgias, No Joint Swelling Skin : No Skin Lesions, No rash Neuro : No Weakness, No Numbness, No Dizziness, No Headache Psych : No Anxiety/Panic, No Depression Heme/Lymph: No Bruising, No Lymphadenopathy Endocrine : No Polyuria, No Polydipsia All other systems reviewed and are negative. Gastrointestinal: Gastrointestinal: Reports nausea PMFSH Past Medical History Attestation statement: The following information was validated with the patient. Medical History (Updated 04/11/21 @ 16:47 by Lily Mosqueda DO) Cocaine use disorder, moderate, dependence Diabetes HTN (hypertension) MDD (major depressive disorder), recurrent episode, moderate Opioid use disorder, mild, in sustained remission Social History Social History Household Members: None Housing: Apartment Do you presently have visiting nurse or other home services: No Alcohol intake: never Patient Tobacco Use Status: Never used Tobacco Tobacco use type: Cigarette Cigarette Packs Per Day: 2 Cigarettes Per Day: 40.0 Second Hand Smoke Exposure: No Use of substances other than those prescribed or required for medical reasons: No Substance Use Type: Crack/Cocaine Advance Directives: No Advance Directives Information Provided: No service: Yes Sexual orientation: Lesbian/[place]/Homosexual Physical Exam Vital Signs: Vital Signs: Last Vital Signs Temp 98.6 F 04/11/21 16:34 Pulse 118 H 04/11/21 16:34 Resp 17 04/11/21 16:34 BP 109/87 04/11/21 16:34 Pulse Ox 93 04/11/21 16:34 BMI result Body Mass Index 25.0 Appearance: Alert. Oriented X3. No acute distress. Active vomiting, significant wretching at end noted coffee ground Eyes: Pupils equal, round and reactive to light. ENT: Pharynx normal. Neck: Normal inspection. Neck supple. CVS: Normal heart rate and rhythm. Pulses normal. Respiratory: No respiratory distress. Breath sounds normal. Abdomen: Soft and moderate ttp in epigastric area Skin: Skin warm and dry. Normal skin color. Normal skin turgor. Extremities: No lower extremity edema. No calf ttp Neuro: Oriented X 3. No motor deficit. No sensory deficit. Course Course Course Narrative: repeat nausea medications - intractable at this point, pending labs, CT scans negative leukocytosis, tachycardia due to vomiting and dehydration not infection or severe sepsis 428pm TROP 17 will admit at this time Procedures EJ/Peripheral Line Neck R: Time Out Performed: Yes Skin Cleansed in Sterile Fashion: Yes Size (gauge): 18 IV Secured and Dressing Applied: Yes Patient Tolerated Procedure: well and no complications MDM - Nausea/Vomiting/Diarrhea MDM Narrative Medical decision making narrative: 60 yo male hx of GERD, substance abuse, depression, recent admission to psychiatry from at this time reports he bought chicken from the [employer] store last night - cooked it and 30 min later developed nausea, vomiting and chest/epigastric pain - labs, IVF, reglan/benadryl/morphine for pain. He has some coffee ground emesis from sig vomiting, IV protonix ordered. CT scan for obstruction ordered, CXR for pneumomediastinum ordered. Dispo per results and findings. Lab Data Result diagrams: 04/11/21 16:09 04/11/21 16:09 Labs: Lab Results 04/11/21 04/11/21 04/11/21 Range/Units 15:24 16:09 16:09 WBC 20.0 H (4.8-10.8) X10*3/uL RBC 4.82 (4.60-5.80) X10*6/uL Hgb 14.4 (14.0-18.0) g/dl Hct 41.8 L (42.0-52.0) % MCV 86.7 (80.0-98.0) fL MCH 29.9 (27.0-33.0) pg MCHC 34.4 (31.0-36.0) g/dl RDW 13.2 (11.0-16.0) % Plt Count 352 D (160-400) X10*3/uL MPV 9.4 (9.4-12.4) fL Immature Gran % (Auto) 0.5 H (0.0-0.4) % Neut % (Auto) 89.9 H (45-73) % Lymph % (Auto) 3.8 L (20-40) % Cannon % (Auto) 5.6 (2-11) % Eos % (Auto) 0.0 (0-4) % Baso % (Auto) 0.2 (0-2) % Lymph # (Auto) 0.8 L (1.2-4.9) X10*3/uL Cannon # (Auto) 1.1 (0.1-1.2) X10*3/uL Eos # (Auto) 0.0 (0.0-0.4) X10*3/uL Baso # (Auto) 0.0 (0.0-0.2) X10*3/uL Abs Immat Gran (auto) 0.10 H (0.00-0.03) X10*3/uL Absolute Neuts (auto) 18.0 H (2.0-8.3) x10*3/uL Absolute Nucleated RBC 0.000 (0.0-0.012) X10*3/uL Nucleated RBC % (auto) 0.0 (0.0-0.2) /100WBC Sodium 138 (135-145) mmol/L Potassium 3.9 (3.3-5.1) mmol/L Chloride 100 (96-108) mmol/L Carbon Dioxide 24 (22-29) mmol/L Anion Gap 18 (12-20) BUN 16 (9-16) mg/dL Creatinine 1.01 (0.5-1.4) mg/dL Estim Creat Clear Calc 77.1 Estimated GFR > 60 Random Glucose 247 H (60-115) mg/dL Lactic Acid (0.5-2.0) mmol/L Calcium 9.6 D (8.4-10.2) mg/dL Magnesium 2.6 (1.6-2.6) mg/dL Total Bilirubin 0.7 (0.0-1.0) mg/dL Direct Bilirubin 0.3 (0.0-0.5) mg/dL AST 34 (5-37) U/L ALT 52 H (0-40) U/L Alkaline Phosphatase 76 (39-117) U/L Troponin I High Sens (<3.5-35.0) ng/L Total Protein 7.7 (6.5-8.0) g/dL Albumin 4.6 (3.5-5.0) g/dL Lipase 27 (8-78) U/L Ethyl Alcohol mg/dL COVID-19 ([facility]) Negative (Negative) COVID-19 Clin Com See Note 04/11/21 04/11/21 04/11/21 Range/Units 16:09 16:09 16:09 WBC (4.8-10.8) X10*3/uL RBC (4.60-5.80) X10*6/uL Hgb (14.0-18.0) g/dl Hct (42.0-52.0) % MCV (80.0-98.0) fL MCH (27.0-33.0) pg MCHC (31.0-36.0) g/dl RDW (11.0-16.0) % Plt Count (160-400) X10*3/uL MPV (9.4-12.4) fL Immature Gran % (Auto) (0.0-0.4) % Neut % (Auto) (45-73) % Lymph % (Auto) (20-40) % Cannon % (Auto) (2-11) % Eos % (Auto) (0-4) % Baso % (Auto) (0-2) % Lymph # (Auto) (1.2-4.9) X10*3/uL Cannon # (Auto) (0.1-1.2) X10*3/uL Eos # (Auto) (0.0-0.4) X10*3/uL Baso # (Auto) (0.0-0.2) X10*3/uL Abs Immat Gran (auto) (0.00-0.03) X10*3/uL Absolute Neuts (auto) (2.0-8.3) x10*3/uL Absolute Nucleated RBC (0.0-0.012) X10*3/uL Nucleated RBC % (auto) (0.0-0.2) /100WBC Sodium (135-145) mmol/L Potassium (3.3-5.1) mmol/L Chloride (96-108) mmol/L Carbon Dioxide (22-29) mmol/L Anion Gap (12-20) BUN (9-16) mg/dL Creatinine (0.5-1.4) mg/dL Estim Creat Clear Calc Estimated GFR Random Glucose (60-115) mg/dL Lactic Acid 2.0 (0.5-2.0) mmol/L Calcium (8.4-10.2) mg/dL Magnesium (1.6-2.6) mg/dL Total Bilirubin (0.0-1.0) mg/dL Direct Bilirubin (0.0-0.5) mg/dL AST (5-37) U/L ALT (0-40) U/L Alkaline Phosphatase (39-117) U/L Troponin I High Sens 17.4 (<3.5-35.0) ng/L Total Protein (6.5-8.0) g/dL Albumin (3.5-5.0) g/dL Lipase (8-78) U/L Ethyl Alcohol < 10 mg/dL COVID-19 ([facility]) (Negative) COVID-19 Clin Com ECG Data Attestation: I personally reviewed and interpreted this ECG as follows: ECG interpretation date: 04/11/21 ECG interpretation time: 15:01 Interpretation: Rate: 102 Rhythm: sinus tachycardia Corinne: normal Normal P waves. Normal NATALIE. Normal QRS complex. ST T wave : nonspecific no KARSON qTC: prolonged prior studies: changed from prior 02/2021 The study has been interpreted contemporaneously by me. . Discharge Plan Discharge Clinical Impression: Vomiting, Leukocytosis, Abdominal pain, epigastric Patient Disposition: Admitted As Inpatient
[2021-04-11 13:37] VITALS: BP 118/80; BP 159/89; PULSE 84; PULSE 94; RESP 16; TEMP 35.6; O2SAT 94; BMI 25.0
[2021-04-11] MEDS: diphenhydrAMINE HCL 50 MG/ML VIAL 25 MG IVPUSH (13:49)
[2021-04-11] MEDS: 0.9 % Sodium Chloride 1,000 ML 999 ML IVCONT ×2 (13:49→15:27)
[2021-04-11] MEDS: Metoclopramide HCl 10 MG/2 ML VIAL IVPUSH (13:51)
[2021-04-11] MEDS: Pantoprazole Sodium 40 MG/10 ML VIAL IVPUSH (13:53)
[2021-04-11] MEDS: ondansetron HCL 4 MG/2 ML VIAL IVPUSH (14:38)
[2021-04-11] MEDS: Morphine Sulfate 4 MG/ML CARTRIDGE IVPUSH (14:39)
--- NOTE | 2021-04-11 15:20 | PHA.MEDREC ---
Pharmacy Consult ? Medication Reconciliation Pharmacy has completed the medication reconciliation. Patient tried taking the meds yesterday evening, but vomited them up. Thanks Melodie Cheney
[2021-04-11] MEDS: Magnesium Sulfate/H2O 2 GM/50 ML PIGGYBACK IV (15:26)
[2021-04-11] MEDS: LORazepam 2 MG/ML VIAL 1 MG IVPUSH (15:37)
[2021-04-11 15:49] LABS: COVID-19 Test Negative (Negative)
[2021-04-11] MEDS: Prochlorperazine Edisylate 10 MG/2 ML VIAL IVPUSH (16:15)
[2021-04-11] MEDS: Lidocaine HCl Viscous 2 % 15 ML SOLUTION MUCOUS MEM (16:15)
[2021-04-11 16:18] LABS: MANUAL DIFF FLAG NO
[2021-04-11 16:20] LABS: Basophils Percent Auto 0.2 % (0-2); Hematocrit 41.8 % (42.0-52.0); Hemoglobin 14.4 g/dl (14.0-18.0); Imm Gran Pct Auto 0.5 % (0.0-0.4); Lymphocytes Absolute Auto 0.8 X10*3/uL (1.2-4.9); Lymphocytes Percent Auto 3.8 % (20-40); Mean Corpuscular HGB Conc 34.4 g/dl (31.0-36.0); Mean Corpuscular Hemoglobin 29.9 pg (27.0-33.0); Mean Corpuscular Volume 86.7 fL (80.0-98.0); Mean Platelet Volume 9.4 fL (9.4-12.4); Monocytes Absolute Auto 1.1 X10*3/uL (0.1-1.2); Monocytes Percent Auto 5.6 % (2-11); Neutrophils Percent Auto 89.9 % (45-73); Platelet Count 352 X10*3/uL (160-400); Red Blood Count 4.82 X10*6/uL (4.60-5.80); Red Cell Distribution Width 13.2 % (11.0-16.0)
[2021-04-11 16:34] VITALS: BP 109/87; PULSE 118; RESP 17; TEMP 37; O2SAT 93
[2021-04-11 16:34] LABS: Ethanol < 10 mg/dL
[2021-04-11 16:39] LABS: Alanine Aminotransferase 52 U/L (0-40); Albumin Level 4.6 g/dL (3.5-5.0); Alkaline Phosphatase 76 U/L (39-117); Anion Gap 18 (12-20); Aspartate Amino Transferase 34 U/L (5-37); Bilirubin Direct 0.3 mg/dL (0.0-0.5); Bilirubin Total 0.7 mg/dL (0.0-1.0); Blood Urea Nitrogen 16 mg/dL (9-16); Calcium 9.6 mg/dL (8.4-10.2); Carbon Dioxide 24 mmol/L (22-29); Chloride 100 mmol/L (96-108); Creatinine Clr Calc Pharmacy 77.1; Estimated Glomerular Filt Rate > 60; Glucose Random 247 mg/dL (60-115); Lipase 27 U/L (8-78); Magnesium 2.6 mg/dL (1.6-2.6); Potassium 3.9 mmol/L (3.3-5.1); Sodium 138 mmol/L (135-145); Total Protein 7.7 g/dL (6.5-8.0)
[2021-04-11 16:41] LABS: Troponin-I High Sensitivity 17.4 ng/L (<3.5-35.0)
[2021-04-11] MEDS: 0.9 % Sodium Chloride 1,000 ML 999 ML IV (17:02)
--- NOTE | 2021-04-11 17:40 | P.HPHOSP_ITS ---
History of Present Illness Date of Service: 04/11/21 Attending physician on admission: Tonia Lim Chief Complaint: nausea and vomiting This is a 60-year-old male presents to the emergency department with vomiting. Two days ago he ate chicken which he got from the dollar store. Following that he began having nausea and vomiting. He has had numerous episodes of vomiting since onset which was initially nonbloody in nature, the most recent episode was blood tinged. he also reports epigastric abdominal pain which began sometime after vomiting. He has no recent sick contacts, no travel, no diarrhea. He came to the ED department today due to his persistent vomiting. He began to have a sore throat as well. In the emergency department lab work was significant for leukocytosis of 20,000. He underwent CT scan of the chest and abdomen which showed no evidence of esophageal rupture and no acute abnormalities. He was treated with multiple episodes of antiemetics, IV fluid, pain medicine but continues to have persistent nausea and vomiting. For this reason the decision was made to admit him to the hospital for further management Review of Systems Review of Systems: Yes all other systems are reviewed and are negative Constitutional: Constitutional: Denies fever(s) ENT: Reports sore throat Cardiovascular: Cardiovascular: Denies chest pain Respiratory: Respiratory: Denies cough Gastrointestinal: Gastrointestinal: Denies diarrhea, Reports nausea and Reports vomiting PMFSH Medical History Cocaine use disorder, moderate, dependence Diabetes HTN (hypertension) MDD (major depressive disorder), recurrent episode, moderate Opioid use disorder, mild, in sustained remission Functional capacity: independent ambulation Pertinent family history: h/o depression - uncle Social History (Updated 04/11/21 @ 17:46 by LAYNE Faria) Household Members: None Housing: Apartment Do you presently have visiting nurse or other home services: No Alcohol intake: never Patient Tobacco Use Status: Current everyday Tobacco user Tobacco use type: Cigarette Cigarette Packs Per Day: 2 Cigarettes Per Day: 40.0 Second Hand Smoke Exposure: No Use of substances other than those prescribed or required for medical reasons: No Substance Use Type: Crack/Cocaine Substance Use Frequency: Weekly Advance Directives: No Advance Directives Information Provided: No service: Yes Sexual orientation: Lesbian/Navarrete/Homosexual Meds Allergies Allergy/AdvReac Type Severity Reaction Status Date / Time No Known Allergies Allergy Verified 03/18/21 06:54 Active Medications: Current Medications Acetaminophen (Acetaminophen 325 Mg Tablet) 650 mg PO Q6H PRN PRN Reason: Pain, Mild (Pain Scale 1-3) Buprenorphine/Naloxone (Buprenorphine/Naloxone 2/0.5mg Film) 1 film SUBLINGUAL BID [facility] Dextrose (Dextrose 50 % 25 Gm/50 Ml Vial) 25 gm IVPUSH Q15M PRN; Protocol PRN Reason: per Hypoglycemia Standing Ord. Docusate Sodium (Docusate Sodium 100 Mg Capsule) 100 mg PO DAILY PRN PRN Reason: Constipation Duloxetine HCl (Duloxetine Hcl 30 Mg Capsule.Dr) 30 mg PO DAILY [facility] Glucose (Glucose Gel 15 Gm Gel..Gram.) 15 gm PO Q15M PRN; Protocol PRN Reason: per Hypoglycemia Standing Ord. Sodium Chloride (Ns) 1,000 mls @ 999 mls/hr IV .Q1H1M [facility] Stop: 04/11/21 18:00 Last Admin: 04/11/21 17:02 Dose: 999 mls/hr Documented by: Lactated Ringer's (Lr) 1,000 mls @ 100 mls/hr IVCONT .Q10H [facility] Promethazine HCl 6.25 mg/ (Sodium Chloride) 50.25 mls @ 201 mls/hr IV Q6H PRN PRN Reason: Nausea and Vomiting Insulin Human Lispro (Insulin Lispro 100 Unit/Ml 3 Ml Vial) 0 unit SUBCUT QIDACHS [facility]; Protocol Metoprolol Succinate (Metoprolol Succinate Er 25 Mg Tab.Er.24h) 25 mg PO DAILY [facility]; Protocol Morphine Sulfate (Morphine Sulfate 4 Mg/Ml Cartridge) 2 mg IVPUSH Q4H PRN; Protocol PRN Reason: Pain, Severe (Pain Scale 7-10) Nicotine (Nicotine 21 Mg Patch.Td24) 21 mg TRANSDERMA DAILY [facility] Ondansetron HCl (Ondansetron Hcl 4 Mg/2 Ml Vial) 4 mg IVPUSH Q8H PRN PRN Reason: Nausea and Vomiting Pantoprazole Sodium (Pantoprazole Sodium 40 Mg/10 Ml Vial) 40 mg IVPUSH DAILY@ 0630 [facility] Pharmacy Consult (Consult Rx Perform Med Rec) 1 each MISCELLANE ONCE PRN PRN Reason: Consult order Quetiapine Fumarate (Quetiapine Fumarate 100 Mg Tablet) 100 mg PO BEDTIME [facility] Sodium Chloride (0.9 % Sodium Chloride Flush 3 Ml Syringe) 3 ml IVFLUSH QSHIFT [facility] Home Medications Medication Instructions Recorded Confirmed Last Taken Type aspirin 81 mg chewable tablet 81 mg PO DAILY 03/18/21 04/11/21 04/10/21 History pantoprazole 40 mg tablet,delayed 1 tab PO DAILY 03/18/21 04/11/21 04/10/21 History release Physical Exam Vital Signs and Narrative: Vital Signs: Last Vital Signs Temp 98.6 F 04/11/21 16:34 Pulse 118 H 04/11/21 16:34 Resp 17 04/11/21 16:34 BP 109/87 04/11/21 16:34 Pulse Ox 93 04/11/21 16:34 BMI result Body Mass Index 25.0 Const: General: alert and awake Nutritional Appearance: well nourished Orientation/consciousness: patient oriented x3 HENMT: Head: Yes normocephalic and Yes atraumatic Eyes: Sclerae: sclerae normal Resp: Effort & Inspection: normal respiratory effort and no respiratory distress Cardio: Rate: regular rate Rhythm: regular rhythm GI: Inspection: No distended Palpation (GI): Soft to palpation and nontender Neuro: General: patient oriented x3 Cranial nerves: Yes CN's II-XII intact bilaterally and Yes Bilaterally intact EOM present Extrem: Other: able to move all 4 extremities spontaneously, no leg edema Results Labs CBC and Chem 7: 04/11/21 16:09 04/11/21 16:09 Labs: Laboratory Results - last 24 hr 04/11/21 04/11/21 04/11/21 15:24 16:09 16:09 MCV 86.7 MCH 29.9 MCHC 34.4 RDW 13.2 Plt Count 352 D MPV 9.4 Immature Gran % (Auto) 0.5 H Neut % (Auto) 89.9 H Lymph % (Auto) 3.8 L [place] % (Auto) 5.6 Eos % (Auto) 0.0 Baso % (Auto) 0.2 Lymph # (Auto) 0.8 L [place] # (Auto) 1.1 Eos # (Auto) 0.0 Baso # (Auto) 0.0 Abs Immat Gran (auto) 0.10 H Absolute Neuts (auto) 18.0 H Absolute Nucleated RBC 0.000 Nucleated RBC % (auto) 0.0 Anion Gap 18 Estim Creat Clear Calc 77.1 Estimated GFR > 60 Random Glucose 247 H Lactic Acid Calcium 9.6 D Magnesium 2.6 Total Bilirubin 0.7 Direct Bilirubin 0.3 AST 34 ALT 52 H Alkaline Phosphatase 76 Troponin I High Sens Total Protein 7.7 Albumin 4.6 Lipase 27 Ethyl Alcohol COVID-19 ([facility]) Negative COVID-19 Clin Com See Note Blood Type Antibody Screen 04/11/21 04/11/21 04/11/21 16:09 16:09 16:09 MCV MCH MCHC RDW Plt Count MPV Immature Gran % (Auto) Neut % (Auto) Lymph % (Auto) [place] % (Auto) Eos % (Auto) Baso % (Auto) Lymph # (Auto) [place] # (Auto) Eos # (Auto) Baso # (Auto) Abs Immat Gran (auto) Absolute Neuts (auto) Absolute Nucleated RBC Nucleated RBC % (auto) Anion Gap Estim Creat Clear Calc Estimated GFR Random Glucose Lactic Acid 2.0 Calcium Magnesium Total Bilirubin Direct Bilirubin AST ALT Alkaline Phosphatase Troponin I High Sens 17.4 Total Protein Albumin Lipase Ethyl Alcohol < 10 COVID-19 ([facility]) COVID-19 Clin Com Blood Type Antibody Screen 04/11/21 16:11 MCV MCH MCHC RDW Plt Count MPV Immature Gran % (Auto) Neut % (Auto) Lymph % (Auto) [place] % (Auto) Eos % (Auto) Baso % (Auto) Lymph # (Auto) [place] # (Auto) Eos # (Auto) Baso # (Auto) Abs Immat Gran (auto) Absolute Neuts (auto) Absolute Nucleated RBC Nucleated RBC % (auto) Anion Gap Estim Creat Clear Calc Estimated GFR Random Glucose Lactic Acid Calcium Magnesium Total Bilirubin Direct Bilirubin AST ALT Alkaline Phosphatase Troponin I High Sens Total Protein Albumin Lipase Ethyl Alcohol COVID-19 ([facility]) COVID-19 Clin Com Blood Type A Positive Antibody Screen NEGATIVE Imaging Radiologist's Impressions: Impressions Abdomen/Pelvis CT 04/11/21 14:33 IMPRESSION: [id number] changes of centrilobular emphysema within the upper lobes bilaterally. Status post right lower lobectomy without mediastinal lymphadenopathy appreciated. 2 cm density right lung base which may be postsurgical in nature. I cannot tell chronicity as there are no studies to compare to at this institution. 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 Diffuse fatty infiltration of the liver. No evidence of esophageal rupture. Question thickened distal esophageal wall. Chest CT 04/11/21 14:34 IMPRESSION: [id number] changes of centrilobular emphysema within the upper lobes bilaterally. Status post right lower lobectomy without mediastinal lymphadenopathy appreciated. 2 cm density right lung base which may be postsurgical in nature. I cannot tell chronicity as there are no studies to compare to at this institution. 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 Diffuse fatty infiltration of the liver. No evidence of esophageal rupture. Question thickened distal esophageal wall. Assessment and Plan (1) Abdominal pain, epigastric: Status: Acute (2) Vomiting: Qualifiers: Nausea presence: with nausea Vomiting type: unspecified Qualified Code(s): R11.2 - Nausea with vomiting, unspecified Status: Acute this is a 60-year-old male with history of diabetes, hypertension, hyperlipidemia, polysubstance abuse, depression who presents to the emergency department with 2 day history of nausea and vomiting intractable nausea and vomiting ct abdomen with no acute pathology likely r/t to gastroenteritis symptomatic support with IVF, antiemetics, IV PPI hypertension hold lisinopril continue metoprolol monitor blood pressure closely leukocytosis likely reactive from vomiting follow cbc diabetes Hold metformin SSI, POCs, ADA diet tobacco dependence smoking cessation advised NRT h/o opiate abuse continue suboxone HLD hold statin, fenofibrate mood continue cymbalta,seroquel dvt ppx - mechical devices code status - full code attending - dr. hung Quality Stroke Does the patient have a stroke diagnosis?: No VTE Prior VTE?: No VTE Risk Level:: Medical - moderate - high VTE Device Contraindication: N/A - Device Ordered VTE Drug Contraindication: Treatment Not Indicated
--- NOTE | 2021-04-11 17:51 | PM.EVENT ---
Event Note Date of Service: 04/11/21 Event Note: the patient was seen and evaluated with LAYNE Fitzgerald. I agree with her note, assessment and plan with the following. A 60 years old male with PMH of opioid abuse, diabetes who presents to the hospital with persistent nausea and vomiting for the last day. He reported eating a check-in and starting to vomit after that. His symptoms so she aided with chills and report passing streaks of blood upon vomiting. Improved after medication in the emergency. Admitted for further evaluation and treatment. Intractable nausea and vomiting Likely secondary to gastroenteritis Images negative for any acute findings Supportive therapy for now Rest of evaluations by PA note.
[2021-04-11 18:46] VITALS: BP 146/99; PULSE 76; RESP 18; TEMP 36.6; O2SAT 98
[2021-04-11] MEDS: Lactated Ringers 1,000 ML 100 ML IVCONT (18:46)
[2021-04-11 20:42] VITALS: BP 153/95; PULSE 116; RESP 16; TEMP 36.6; O2SAT 98
[2021-04-11 21:02] LABS: Glucose, Whole Blood 207 mg/dL (60-115)
--- NOTE | 2021-04-11 21:42 | MHC.CM.PN ---
CM met with admitted patient in the ED over flow unit with bed assignment pending. Pt is A&Ox3. No IMM necessary. Poor historian. Pt lives alone. Has no contact listed. No HCP on file. Education provided, pt declines. Pt has brother, Eliceo Vizcaino in [place], [place]. Pt is wheelchair bound secondary to arthritis and uses an electric wheelchair. Pt has a visiting nurse weekly for his medications, but pt cannot remember what agency. Pt has PCP, but cannot remember the name, just that she is in [place]. Pt is not Covid vaccinated. Pt has hx of substance abuse, sober from alcohol for 7 years. Uses cocaine. Used opioids in past, none now. Pt was in [employer]. Pt is not [employer]et [employer] and uses no veterans services.Chart review completed. Pt has MDD and has been hospitalized in the past. Recently at [facility] . PCP is Danielle Herrera CNP. Therapist is Kayleigh Bay, Psychiatrist is Jossie Serrato and Dina Jones NP. Pt was referred to Bryanna Moser at D/C. Referral placed to follow. D/C plan is home with VNA services. Pt will need transportation home-BLS vs Wheelchair van. CM to follow for d/c needs.
[2021-04-11] MEDS: QUEtiapine Fumarate 100 MG TABLET PO (22:06)
[2021-04-11] MEDS: Gabapentin 300 MG CAPSULE 600 MG PO (22:06)
[2021-04-11] MEDS: Buprenorphine/Naloxone 2/0.5mg FILM 1 FILM SUBLINGUAL (22:06)
[2021-04-11] MEDS: Insulin Lispro 100 UNIT/ML 3 ML VIAL SUBCUT (22:06)
--- NOTE | 2021-04-11 22:45 | PC.NURSE ---
Assumed care of pt with report from previous nurse Pt resting on stretcher Pt tolerating samson sandoval. Pt c/o nausea but able to keep down PO fluids. No apparent distress Will continue to monitor
--- NOTE | 2021-04-12 | ECG_ITS ---
Test Reason : CHEST PAIN Blood Pressure : / mmHG Vent. Rate : 091 BPM Atrial Rate : 091 BPM P-R Int : 198 ms QRS Dur : 100 ms QT Int : 364 ms P-R-T Axes : 023 012 050 degrees QTc Int : 447 ms Normal sinus rhythm Cannot rule out Inferior infarct (cited on or before 11-APR-2021) Abnormal ECG When compared with ECG of 11-APR-2021 14:53, No significant change was found Referred By: Re Vaz Electronically Signed By:BETINA SULLIVAN MD
--- NOTE | 2021-04-12 00:30 | PC.NURSE ---
Pt given more samson sandoval and crackers per request pt tolerating well Will continue to monitor
[2021-04-12] MEDS: Lactated Ringers 1,000 ML 100 ML IVCONT ×3 (05:29→22:45)
[2021-04-12] MEDS: Pantoprazole Sodium 40 MG/10 ML VIAL IVPUSH (05:29)
[2021-04-12 06:19] LABS: Amphetamine Screen Urine Not Detected (Not Detect); Barbiturates, Urine Not Detected (Not Detect); Benzodiazepines Screen Urine Not Detected (Not Detect); Cannabinoid Screen Urine Not Detected (Not Detect); Cocaine Screen Urine POSITIVE (Not Detect); Fentanyl, urine Not Detected (Not Detect); Opiate Screen Urine POSITIVE (Not Detect); Phencyclidine Screen Urine Not Detected (Not Detect)
[2021-04-12 06:28] VITALS: BP 157/90; PULSE 98; RESP 16; O2SAT 98
[2021-04-12 07:30] LABS: MANUAL DIFF FLAG NO
[2021-04-12 07:35] LABS: Basophils Percent Auto 0.3 % (0-2); Eosinophils Percent Auto 0.1 % (0-4); Hemoglobin 12.6 g/dl (14.0-18.0); Imm Gran Abs Auto 0.06 X10*3/uL (0.00-0.03); Imm Gran Pct Auto 0.5 % (0.0-0.4); Lymphocytes Absolute Auto 1.3 X10*3/uL (1.2-4.9); Lymphocytes Percent Auto 10.2 % (20-40); Mean Corpuscular HGB Conc 34.1 g/dl (31.0-36.0); Mean Corpuscular Hemoglobin 30.1 pg (27.0-33.0); Mean Corpuscular Volume 88.3 fL (80.0-98.0); Mean Platelet Volume 9.4 fL (9.4-12.4); Monocytes Absolute Auto 0.9 X10*3/uL (0.1-1.2); Monocytes Percent Auto 7.2 % (2-11); Neutrophils Absolute Auto 10.7 x10*3/uL (2.0-8.3); Neutrophils Percent Auto 81.7 % (45-73); Platelet Count 274 X10*3/uL (160-400); Red Blood Count 4.19 X10*6/uL (4.60-5.80); Red Cell Distribution Width 13.4 % (11.0-16.0); White Blood Count 13.1 X10*3/uL (4.8-10.8)
[2021-04-12 07:51] LABS: Anion Gap 11 (12-20); Blood Urea Nitrogen 10 mg/dL (9-16); Calcium 8.6 mg/dL (8.4-10.2); Carbon Dioxide 25 mmol/L (22-29); Chloride 103 mmol/L (96-108); Creatinine Clr Calc Pharmacy 84.6; Estimated Glomerular Filt Rate > 60; Glucose Random 233 mg/dL (60-115); Sodium 135 mmol/L (135-145)
[2021-04-12 08:07] LABS: Glucose, Whole Blood 221 mg/dL (60-115)
[2021-04-12 09:15] VITALS: BP 114/69; PULSE 69; RESP 16; TEMP 37.2; O2SAT 96
[2021-04-12] MEDS: Insulin Lispro 100 UNIT/ML 3 ML VIAL SUBCUT ×4 (09:22→21:10)
[2021-04-12] MEDS: Metoprolol Succinate ER 25 MG TAB.ER.24H PO (09:25)
[2021-04-12] MEDS: DULoxetine HCl 30 MG CAPSULE.DR PO (09:25)
[2021-04-12] MEDS: Buprenorphine/Naloxone 2/0.5mg FILM 1 FILM SUBLINGUAL ×2 (09:25→21:11)
[2021-04-12] MEDS: Nicotine 21 MG PATCH.TD24 TRANSDERMA (09:25)
[2021-04-12] MEDS: Gabapentin 300 MG CAPSULE 600 MG PO ×3 (09:25→21:04)
--- NOTE | 2021-04-12 10:27 | P.PNIM_ITS ---
Subjective Subjective Date of Service: 04/12/21 Interval History: seen and examined this morning follow up for nausea/vomiting improvement in vomiting,but still having sore throat and epigastric abdominal pain also reporting burning chest pain Review of Systems Review of Systems: Yes all other systems are reviewed and are negative Constitutional Constitutional: Denies chills and Denies fever(s) Cardiovascular Cardiovascular: Denies chest pain Respiratory Respiratory: Denies cough Physical Exam Vital Signs: Vital Signs: Last Vital Signs Temp 98.9 F 04/12/21 09:15 Pulse 69 04/12/21 09:15 Resp 16 04/12/21 09:15 BP 114/69 04/12/21 09:15 Pulse Ox 96 04/12/21 09:15 BMI result Body Mass Index 25.0 Const: General: alert and awake Nutritional Appearance: well nourished Orientation/consciousness: patient oriented x3 HENMT: Head: Yes normocephalic and Yes atraumatic Eyes: Sclerae: sclerae normal Resp: Effort & Inspection: normal respiratory effort and no respiratory distress Cardio: Rate: regular rate Rhythm: regular rhythm GI: Inspection: No distended Palpation (GI): Soft to palpation and n ontender Neuro: General: patient oriented x3 Cranial nerves: Yes CN's II-XII intact bilaterally and Yes Bilaterally intact EOM present Extrem: Other: able to move all 4 extremities spontaneously, no leg edema Objective Data Active Medications Acetaminophen (Acetaminophen 325 Mg Tablet) 650 mg PO Q6H PRN PRN Reason: Pain, Mild (Pain Scale 1-3) Buprenorphine/Naloxone (Buprenorphine/Naloxone 2/0.5mg Film) 1 film SUBLINGUAL BID [facility] Last Admin: 04/12/21 09:25 Dose: 1 film Documented by: GEOVANY Dextrose (Dextrose 50 % 25 Gm/50 Ml Vial) 25 gm IVPUSH Q15M PRN; Protocol PRN Reason: per Hypoglycemia Standing Ord. Docusate Sodium (Docusate Sodium 100 Mg Capsule) 100 mg PO DAILY PRN PRN Reason: Constipation Duloxetine HCl (Duloxetine Hcl 30 Mg Capsule.Dr) 30 mg PO DAILY [facility] Last Admin: 04/12/21 09:25 Dose: 30 mg Documented by: GEOVANY Gabapentin (Gabapentin 300 Mg Capsule) 600 mg PO TID [facility] Last Admin: 04/12/21 09:25 Dose: 600 mg Documented by: GEOVANY Glucose (Glucose Gel 15 Gm Gel..Gram.) 15 gm PO Q15M PRN; Protocol PRN Reason: per Hypoglycemia Standing Ord. Lactated Ringer's (Lr) 1,000 mls @ 100 mls/hr IVCONT .Q10H [facility] Last Admin: 04/12/21 05:29 Dose: 100 mls/hr Documented by: SANDRA Promethazine HCl 6.25 mg/ (Sodium Chloride) 50.25 mls @ 201 mls/hr IV Q6H PRN PRN Reason: Nausea and Vomiting Insulin Human Lispro (Insulin Lispro 100 Unit/Ml 3 Ml Vial) 0 unit SUBCUT QIDACHS [facility]; Protocol Last Admin: 04/12/21 09:22 Dose: 1 unit Documented by: GEOVANY Comments: 4U Metoprolol Succinate (Metoprolol Succinate Er 25 Mg Tab.Er.24h) 25 mg PO DAILY [facility]; Protocol Last Admin: 04/12/21 09:25 Dose: 25 mg Documented by: GEOVANY Morphine Sulfate (Morphine Sulfate 4 Mg/Ml Cartridge) 2 mg IVPUSH Q4H PRN; Protocol PRN Reason: Pain, Severe (Pain Scale 7-10) Nicotine (Nicotine 21 Mg Patch.Td24) 21 mg TRANSDERMA DAILY [facility] Last Admin: 04/12/21 09:25 Dose: 21 mg Documented by: GEOVANY Ondansetron HCl (Ondansetron Hcl 4 Mg/2 Ml Vial) 4 mg IVPUSH Q8H PRN PRN Reason: Nausea and Vomiting Pantoprazole Sodium (Pantoprazole Sodium 40 Mg/10 Ml Vial) 40 mg IVPUSH DAILY@0630 [facility] Last Admin: 04/12/21 05:29 Dose: 40 mg Documented by: SANDRA Pharmacy Consult (Consult Rx Perform Med Rec) 1 each MISCELLANE ONCE PRN PRN Reason: Consult order Quetiapine Fumarate (Quetiapine Fumarate 100 Mg Tablet) 100 mg PO BEDTIME [facility] Last Admin: 04/11/21 22:06 Dose: 100 mg Documented by: SANDRA Sodium Chloride (0.9 % Sodium Chloride Flush 3 Ml Syringe) 3 ml IVFLUSH QSHIFT [facility] Last Admin: 04/12/21 08:42 Dose: Not Given Documented by: GEOVANY Non-Admin Reason: Med Not Available Labs CBC & Chem 7: 04/12/21 07:22 04/12/21 07:22 Labs: Laboratory Results - last 24 hr 04/11/21 04/11/21 04/11/21 15:24 16:09 16:09 MCV 86.7 MCH 29.9 MCHC 34.4 RDW 13.2 Plt Count 352 D MPV 9.4 Immature Gran % (Auto) 0.5 H Neut % (Auto) 89.9 H Lymph % (Auto) 3.8 L [place] % (Auto) 5.6 Eos % (Auto) 0.0 Baso % (Auto) 0.2 Lymph # (Auto) 0.8 L [place] # (Auto) 1.1 Eos # (Auto) 0.0 Baso # (Auto) 0.0 Abs Immat Gran (auto) 0.10 H Absolute Neuts (auto) 18.0 H Absolute Nucleated RBC 0.000 Nucleated RBC % (auto) 0.0 Anion Gap 18 Estim Creat Clear Calc 77.1 Estimated GFR > 60 POC Glucose Random Glucose 247 H Lactic Acid Calcium 9.6 D Magnesium 2.6 Total Bilirubin 0.7 Direct Bilirubin 0.3 AST 34 ALT 52 H Alkaline Phosphatase 76 Troponin I High Sens Total Protein 7.7 Albumin 4.6 Lipase 27 Urine Opiates Screen Urine Fentanyl Screen Ur Barbiturates Screen Ur Phencyclidine Scrn Ur Amphetamines Screen U Benzodiazepines Scrn Urine Cocaine Screen U Marijuana (THC) Screen Ethyl Alcohol COVID-19 ([facility]) Negative COVID-19 Clin Com See Note Blood Type Antibody Screen 04/11/21 04/11/21 04/11/21 16:09 16:09 16:09 MCV MCH MCHC RDW Plt Count MPV Immature Gran % (Auto) Neut % (Auto) Lymph % (Auto) [place] % (Auto) Eos % (Auto) Baso % (Auto) Lymph # (Auto) [place] # (Auto) Eos # (Auto) Baso # (Auto) Abs Immat Gran (auto) Absolute Neuts (auto) Absolute Nucleated RBC Nucleated RBC % (auto) Anion Gap Estim Creat Clear Calc Estimated GFR POC Glucose Random Glucose Lactic Acid 2.0 Calcium Magnesium Total Bilirubin Direct Bilirubin AST ALT Alkaline Phosphatase Troponin I High Sens 17.4 Total Protein Albumin Lipase Urine Opiates Screen Urine Fentanyl Screen Ur Barbiturates Screen Ur Phencyclidine Scrn Ur Amphetamines Screen U Benzodiazepines Scrn Urine Cocaine Screen U Marijuana (THC) Screen Ethyl Alcohol < 10 COVID-19 ([facility]) COVID-19 [facility] Com Blood Type Antibody Screen 04/11/21 04/11/21 04/12/21 16:11 20:53 05:51 MCV MCH MCHC RDW Plt Count MPV Immature Gran % (Auto) Neut % (Auto) Lymph % (Auto) [place] % (Auto) Eos % (Auto) Baso % (Auto) Lymph # (Auto) [place] # (Auto) Eos # (Auto) Baso # (Auto) Abs Immat Gran (auto) Absolute Neuts (auto) Absolute Nucleated RBC Nucleated RBC % (auto) Anion Gap Estim Creat Clear Calc Estimated GFR POC Glucose 207 H Random Glucose Lactic Acid Calcium Magnesium Total Bilirubin Direct Bilirubin AST ALT Alkaline Phosphatase Troponin I High Sens Total Protein Albumin Lipase Urine Opiates Screen POSITIVE H Urine Fentanyl Screen Not Detected Ur Barbiturates Screen Not Detected Ur Phencyclidine Scrn Not Detected Ur Amphetamines Screen Not Detected U Benzodiazepines Scrn Not Detected Urine Cocaine Screen POSITIVE H U Marijuana (THC) Screen Not Detected Ethyl Alcohol COVID-19 ([facility]) COVID-19 [facility] Com Blood Type A Positive Antibody Screen NEGATIVE 04/12/21 04/12/21 04/12/21 07:22 07:22 08:00 MCV 88.3 MCH 30.1 MCHC 34.1 RDW 13.4 Plt Count 274 MPV 9.4 Immature Gran % (Auto) 0.5 H Neut % (Auto) 81.7 H Lymph % (Auto) 10.2 L [place] % (Auto) 7.2 Eos % (Auto) 0.1 Baso % (Auto) 0.3 Lymph # (Auto) 1.3 [place] # (Auto) 0.9 Eos # (Auto) 0.0 Baso # (Auto) 0.0 Abs Immat Gran (auto) 0.06 H Absolute Neuts (auto) 10.7 H Absolute Nucleated RBC 0.000 Nucleated RBC % (auto) 0.0 Anion Gap 11 L Estim Creat Clear Calc 84.6 Estimated GFR > 60 POC Glucose 221 H Random Glucose 233 H Lactic Acid Calcium 8.6 D Magnesium Total Bilirubin Direct Bilirubin AST ALT Alkaline Phosphatase Troponin I High Sens Total Protein Albumin Lipase Urine Opiates Screen Urine Fentanyl Screen Ur Barbiturates Screen Ur Phencyclidine Scrn Ur Amphetamines Screen U Benzodiazepines Scrn Urine Cocaine Screen U Marijuana (THC) Screen Ethyl Alcohol COVID-19 ([facility]) COVID-19 Clin Com Blood Type Antibody Screen Assessment and Plan (1) Vomiting: Status: Acute (2) Leukocytosis: Status: Acute (3) Abdominal pain, epigastric: Status: Acute Assessment and Plan: this is a 60-year-old male with history of diabetes, hypertension, hyperlipidemia, polysubstance abuse, depression who presents to the emergency department with 2 day history of nausea and vomiting intractable nausea and vomiting. Improving ct abdomen with no acute pathology for N/V but does showing some thickening of the esophagus likely r/t to gastroenteritis symptomatic support with IVF, antiemetics, IV PPI seen by GI - can consider outpatient EGD, no further workup required at this time. hypertension hold lisinopril continue metoprolol monitor blood pressure closely leukocytosis likely reactive from vomiting. Trending down follow cbc diabetes Hold metformin SSI, POCs, ADA diet tobacco dependence smoking cessation advised NRT h/o opiate abuse continue suboxone HLD hold statin, fenofibrate mood continue cymbalta,seroquel dvt ppx - mechical devices code status - full code attending - dr. Recinos Quality Stroke Does the patient have a stroke diagnosis?: No VTE Prior VTE?: No VTE Risk Level:: Medical - moderate - high VTE Device Contraindication: N/A - Device Ordered VTE Drug Contraindication: Treatment Not Indicated
--- NOTE | 2021-04-12 10:45 | PC.NURSE ---
Pt received from plan nurse: Pt Aox4, in no acute distress. Pt NSR with dimished lung sounds. Pt rounded and nontender. EJ noted in tact and flushing but very positional- difficult for pt to obtain orders fluids. Will attempt for peripheral IV.
--- NOTE | 2021-04-12 10:56 | P.CNGI_ITS ---
History of Present Illness Data of Consult Service Date: 04/12/21 Requesting physician: Re Vaz Primary Care Provider: Unknown Physician HPI Reason for consult: nausea 60-year-old male w hx of HTN, DM, HLP, substance abuse who I am seeing for assessment for nausea and vomiting. 2 d hx of ongoing persistent nausea and vomiting, initially non bloody now with few streaks of blood and which he feels started after eating some poorly cooked chicken. Denies sick contacts. He had some chills, but no fever. He denies abdominal pain but said he had some chest discomfort, gone now. He had some loose stools when this started few days ago, denies melena or rectal bleeding. Denies alcohol or nsaid ingestion but endorses using cocaine 5 d ago. Today he feels better with fluids and meds. Before this illness he says he was at baseline and had no complaints. Denies dysphagia. lab work was significant for leukocytosis of 20,000 which has came down to [address] scan of the chest and abdomen which showed no evidence of esophageal rupture, distal esophageal thickening and emphysema Review of Systems Review of Systems: Constitutional : No Weight loss, No Fever, No Chills ENT/Mouth : No sore throat, No Rhinorrhea Eyes: No Swelling, No Redness Cardiovascular : pos Chest Pain, No SOB, NoEdema Respiratory : No Cough, No Sputum, No Wheezing Gastrointestinal : Positive Nausea, Positive Vomiting, no Diarrhea, positive abdominal Pain, No Hematochezia, No Melena Genitourinary : No Dysuria, No Urinary Frequency, No Hematuria, No Urgency Musculoskeletal : No joint pain, No Myalgias, No Joint Swelling Skin : No Skin Lesions, No rash Neuro : No Weakness, No Numbness, No Dizziness, No Headache Psych : No Anxiety/Panic, No Depression Heme/Lymph: No Bruising, No Lymphadenopathy Endocrine : No Polyuria, No Polydipsia All other systems reviewed and are negative. [facility] Past Medical History Medical History Cocaine use disorder, moderate, dependence Diabetes HTN (hypertension) MDD (major depressive disorder), recurrent episode, moderate Opioid use disorder, mild, in sustained remission Functional capacity: independent ambulation Family History Pertinent family history: h/o depression - uncle Social History Social History (Updated 04/11/21 @ 17:46 by LAYNE Faria) Household Members: None Housing: Apartment Do you presently have visiting nurse or other home services: No Alcohol intake: never Patient Tobacco Use Status: Current everyday Tobacco user Tobacco use type: Cigarette Cigarette Packs Per Day: 2 Cigarettes Per Day: 40.0 Second Hand Smoke Exposure: No Use of substances other than those prescribed or required for medical reasons: No Substance Use Type: Crack/Cocaine Substance Use Frequency: Weekly Advance Directives: No Advance Directives Information Provided: No service: Yes Current occupational status: disabled Sexual orientation: Lesbian/Navarrete/Homosexual Meds Allergies Allergy/AdvReac Type Severity Reaction Status Date / Time No Known Allergies Allergy Verified 03/18/21 06:54 Active Medications: Current Medications Acetaminophen (Acetaminophen 325 Mg Tablet) 650 mg PO Q6H PRN PRN Reason: Pain, Mild (Pain Scale 1-3) Buprenorphine/Naloxone (Buprenorphine/Naloxone 2/0.5mg Film) 1 film SUBLINGUAL BID [facility] Last Admin: 04/12/21 09:25 Dose: 1 film Documented by: Dextrose (Dextrose 50 % 25 Gm/50 Ml Vial) 25 gm IVPUSH Q15M PRN; Protocol PRN Reason: per Hypoglycemia Standing Ord. Docusate Sodium (Docusate Sodium 100 Mg Capsule) 100 mg PO DAILY PRN PRN Reason: Constipation Duloxetine HCl (Duloxetine Hcl 30 Mg Capsule.Dr) 30 mg PO DAILY [facility] Last Admin: 04/12/21 09:25 Dose: 30 mg Documented by: Gabapentin (Gabapentin 300 Mg Capsule) 600 mg PO TID [facility] Last Admin: 04/12/21 09:25 Dose: 600 mg Documented by: Glucose (Glucose Gel 15 Gm Gel..Gram.) 15 gm PO Q15M PRN; Protocol PRN Reason: per Hypoglycemia Standing Ord. Lactated Ringer's (Lr) 1,000 mls @ 100 mls/hr IVCONT .Q10H [facility] Last Admin: 04/12/21 05:29 Dose: 100 mls/hr Documented by: Promethazine HCl 6.25 mg/ (Sodium Chloride) 50.25 mls @ 201 mls/hr IV Q6H PRN PRN Reason: Nausea and Vomiting Insulin Human Lispro (Insulin Lispro 100 Unit/Ml 3 Ml Vial) 0 unit SUBCUT QIDACHS [facility]; Protocol Last Admin: 04/12/21 09:22 Dose: 1 unit Documented by: Metoprolol Succinate (Metoprolol Succinate Er 25 Mg Tab.Er.24h) 25 mg PO DAILY [facility]; Protocol Last Admin: 04/12/21 09:25 Dose: 25 mg Documented by: Morphine Sulfate (Morphine Sulfate 4 Mg/Ml Cartridge) 2 mg IVPUSH Q4H PRN; Protocol PRN Reason: Pain, Severe (Pain Scale 7-10) Nicotine (Nicotine 21 Mg Patch.Td24) 21 mg TRANSDERMA DAILY [facility] Last Admin: 04/12/21 09:25 Dose: 21 mg Documented by: Ondansetron HCl (Ondansetron Hcl 4 Mg/2 Ml Vial) 4 mg IVPUSH Q8H PRN PRN Reason: Nausea and Vomiting Pantoprazole Sodium (Pantoprazole Sodium 40 Mg/10 Ml Vial) 40 mg IVPUSH DAILY@0630 [facility] Last Admin: 04/12/21 05:29 Dose: 40 mg Documented by: Pharmacy Consult (Consult Rx Perform Med Rec) 1 each MISCELLANE ONCE PRN PRN Reason: Consult order Quetiapine Fumarate (Quetiapine Fumarate 100 Mg Tablet) 100 mg PO BEDTIME [facility] Last Admin: 04/11/21 22:06 Dose: 100 mg Documented by: Sodium Chloride (0.9 % Sodium Chloride Flush 3 Ml Syringe) 3 ml IVFLUSH QSHIFT [facility] Last Admin: 04/12/21 08:42 Dose: Not Given Documented by: Home Medications Medication Instructions Recorded Confirmed Last Taken Type aspirin 81 mg chewable tablet 81 mg PO DAILY 03/18/21 04/11/21 04/10/21 History pantoprazole 40 mg tablet,delayed 1 tab PO DAILY 03/18/21 04/11/21 04/10/21 History release Physical Exam Vital Signs: Vital Signs: Last Vital Signs Temp 98.9 F 04/12/21 09:15 Pulse 69 04/12/21 09:15 Resp 16 04/12/21 09:15 BP 114/69 04/12/21 09:15 Pulse Ox 96 04/12/21 09:15 BMI result Body Mass Index 25.0 Const: General: alert and awake Nutritional Appearance: well nourished Orientation/consciousness: patient oriented x3 HENMT: Head: Yes normocephalic and Yes atraumatic Eyes: Sclerae: sclerae normal Resp: Effort & Inspection: normal respiratory effort and no respiratory distress Auscultation: diminished lung sounds Cardio: Rate: regular rate Rhythm: regular rhythm GI: Inspection: No distended Palpation (GI): Soft to palpation and nontender Skin: General skin exam: dry skin Neuro: General: patient oriented x3 Cranial nerves: Yes CN's II-XII intact bilaterally and Yes Bilaterally intact EOM present Extrem: Other: able to move all 4 extremities spontaneously, no leg edema Psych: Appearance: disheveled Speech and movement: Pressured speech present Results Labs CBC & Chem 7: 04/12/21 07:22 04/12/21 07:22 Labs: Short CBC 04/11/21 04/12/21 Range/Units 16:09 07:22 WBC 20.0 H 13.1 H (4.8-10.8) X10*3/uL Hgb 14.4 12.6 L (14.0-18.0) g/dl Hct 41.8 L 37.0 L (42.0-52.0) % Plt Count 352 D 274 (160-400) X10*3/uL BMP 04/11/21 04/12/21 16:09 07:22 Sodium 138 135 Potassium 3.9 4.0 Chloride 100 103 Carbon Dioxide 24 25 BUN 16 10 Creatinine 1.01 0.92 Calcium 9.6 D 8.6 D Liver Function 04/11/21 Range/Units 16:09 Total Bilirubin 0.7 (0.0-1.0) mg/dL Direct Bilirubin 0.3 (0.0-0.5) mg/dL AST 34 (5-37) U/L ALT 52 H (0-40) U/L Alkaline Phosphatase 76 (39-117) U/L Albumin 4.6 (3.5-5.0) g/dL Imaging CT scan - abdomen: Attestation: I personally reviewed and interpreted this imaging study as follows: My impression: emphysema, esophgeal thickening, degenerative spinal changes Assessment and Plan (1) Vomiting: Qualifiers: Nausea presence: with nausea Vomiting type: unspecified Qualified Code(s): R11.2 - Nausea with vomiting, unspecified Status: Acute 1/ Nausea and vomiting after eating chicken suspected gastroenteritis. Imaging wth distal esophageal thickening probably in response to vomiting and reflux. He already feels improved compared to admission. No evidence to support DKA as cause of symptoms or other worrying pathology. PLAN: 1/ No need for emergent EGD, can be done as o/p 2/ recommend PPI and carafate meantime 3/ Cont with IV fluids and allow PO diet or at least clears as tolerated 4/ watch out for cocaine withdrawal 5/ hold nsaids and avoid for next few weeks. Procedures Date of Service Date of Service: 04/12/21
--- NOTE | 2021-04-12 10:57 | PC.NURSE ---
Pt update status given to pt's leather case finisher Shital Chaudhry: [phone]
[2021-04-12 13:17] LABS: Glucose, Whole Blood 222 mg/dL (60-115)
--- NOTE | 2021-04-12 13:42 | MHC.CM.PN ---
EMR REVIEW, PT HAS CONT'D N&V W/DECREASING VOMITING, PT TO REMAIN ON IVF, ANTIEMETICS AND PPI, GI RECOMMENDS OUTPT EGD AND REMAIN INPT ONE MORE NIGHT, ANTIC D/C TOMORROW SAT 04/13/21, CM TO CONT TO FOLLOW D/C NEEDS.
[2021-04-12 15:13] VITALS: BP 140/76; PULSE 76; RESP 18; TEMP 36.7; O2SAT 98
[2021-04-12 16:47] LABS: Glucose, Whole Blood 202 mg/dL (60-115)
--- NOTE | 2021-04-12 17:57 | PC.NURSE ---
Pending dinner tray in order to give scheduled insulin
[2021-04-12 18:49] VITALS: BP 147/92; PULSE 82; RESP 18; TEMP 36.6; O2SAT 98
[2021-04-12 20:24] VITALS: BP 176/86; PULSE 80; RESP 19; TEMP 36.8; O2SAT 95
[2021-04-12 20:33] LABS: Glucose, Whole Blood 259 mg/dL (60-115)
[2021-04-12] MEDS: QUEtiapine Fumarate 100 MG TABLET PO (21:09)
[2021-04-13] VITALS: BP 104/59; PULSE 87; RESP 18; TEMP 36.9; O2SAT 95
[2021-04-13 03:52] VITALS: BP 103/69; PULSE 78; RESP 18; TEMP 36.6; O2SAT 95
[2021-04-13 06:11] LABS: MANUAL DIFF FLAG NO
[2021-04-13 06:35] LABS: Basophils Percent Auto 0.3 % (0-2); Eosinophils Absolute Auto 0.1 X10*3/uL (0.0-0.4); Eosinophils Percent Auto 0.9 % (0-4); Hematocrit 33.5 % (42.0-52.0); Hemoglobin 11.3 g/dl (14.0-18.0); Imm Gran Abs Auto 0.08 X10*3/uL (0.00-0.03); Imm Gran Pct Auto 0.9 % (0.0-0.4); Lymphocytes Absolute Auto 1.4 X10*3/uL (1.2-4.9); Lymphocytes Percent Auto 15.3 % (20-40); Mean Corpuscular HGB Conc 33.7 g/dl (31.0-36.0); Mean Corpuscular Hemoglobin 30.2 pg (27.0-33.0); Mean Corpuscular Volume 89.6 fL (80.0-98.0); Mean Platelet Volume 9.4 fL (9.4-12.4); Monocytes Absolute Auto 0.7 X10*3/uL (0.1-1.2); Monocytes Percent Auto 7.8 % (2-11); Neutrophils Absolute Auto 6.6 x10*3/uL (2.0-8.3); Neutrophils Percent Auto 74.8 % (45-73); Platelet Count 247 X10*3/uL (160-400); Red Blood Count 3.74 X10*6/uL (4.60-5.80); Red Cell Distribution Width 13.5 % (11.0-16.0); White Blood Count 8.8 X10*3/uL (4.8-10.8)
[2021-04-13 07:01] VITALS: BP 135/79; PULSE 69; RESP 18; TEMP 36.1; O2SAT 96
[2021-04-13 07:26] LABS: Glucose, Whole Blood 173 mg/dL (60-115)
[2021-04-13] MEDS: Gabapentin 300 MG CAPSULE 600 MG PO ×2 (08:50→14:57)
[2021-04-13] MEDS: Nicotine 21 MG PATCH.TD24 TRANSDERMA (08:50)
[2021-04-13] MEDS: DULoxetine HCl 30 MG CAPSULE.DR PO (08:50)
[2021-04-13] MEDS: Metoprolol Succinate ER 25 MG TAB.ER.24H PO (08:50)
[2021-04-13] MEDS: Omeprazole 20 MG CAPSULE.DR PO (08:50)
[2021-04-13] MEDS: Buprenorphine/Naloxone 2/0.5mg FILM 1 FILM SUBLINGUAL (08:51)
[2021-04-13] MEDS: Insulin Lispro 100 UNIT/ML 3 ML VIAL SUBCUT ×2 (08:51→11:54)
[2021-04-13] MEDS: 0.9 % Sodium Chloride Flush 3 ML SYRINGE IVFLUSH (08:51)
[2021-04-13 11:00] VITALS: BP 111/69; PULSE 75; RESP 18; TEMP 36.1; O2SAT 95
[2021-04-13 11:17] LABS: Glucose, Whole Blood 201 mg/dL (60-115)
--- NOTE | 2021-04-13 11:35 | P.DS_ITS ---
DS: Providers Provider Date of Service: 04/13/21 <LAYNE Faria - Last Filed: 04/13/21 17:10> Date of admission: 04/11/21 17:24 <LAYNE Faria - Last Filed: 04/13/21 17:10> Date of discharge: 04/13/21 <LAYNE Faria - Last Filed: 04/13/21 17:10> Primary care physician: Unknown Physician <LAYNE Faria - Last Filed: 04/13/21 17:10> Consults: 04/12/21 08:46 Consult to Gastroenterology Routine Consulting Provider: Alondra Avila Reason for consultation: n/v, esophageal thickening on imaging Has provider been notified: No <LAYNE Faria - Last Filed: 04/13/21 17:10> Attending physician on discharge: Richard Liao <LAYNE Faria - Last Filed: 04/13/21 17:10> Discharging clinician: Re Vaz <LAYNE Faria - Last Filed: 04/13/21 17:10> DS: Diagnosis Discharge Diagnosis (1) Vomiting: Status: Acute <LAYNE Faria - Last Filed: 04/13/21 17:10> (2) Abdominal pain, epigastric: Status: Acute <LAYNE Faria - Last Filed: 04/13/21 17:10> (3) Leukocytosis: Status: Acute <LAYNE Faria - Last Filed: 04/13/21 17:10> DS: Summary Hospital Course Hospital Course: From H&P on day of admission This is a 60-year-old male presents to the emergency department with vomiting.? Two days ago he ate chicken which he got from the [employer] store.? Following that he began having nausea and vomiting.? He has had numerous episodes of vomiting since onset which was initially nonbloody in nature, the most recent episode was blood tinged.? he also reports epigastric abdominal pain which began sometime after vomiting.? He has no recent sick contacts, no travel, no diarrhea. ? He came to the ED department today due to his persistent vomiting. He began to have a sore throat as well. ? In the emergency department lab work was significant for leukocytosis of 20,000.? He underwent CT scan of the chest and abdomen which showed no evidence of esophageal rupture and no acute abnormalities.? He was treated with multiple episodes of antiemetics, IV fluid, pain medicine but continues to have persistent nausea and vomiting.? For this reason the decision was made to admit him to the hospital for further management Intractable nausea and vomiting/apigastric abdominal pain. likely secondary to gastroenteritis. Treated with IVF and antiemetics with good effect. CT scan of the abdomen from day of admission showed no acute abnormalities. There is no evidence of esophageal rupture. There was question of thickening of the distal esophageal wall. He was seen in consultation by Gastroenterology who recommended to continue his PPI, add Carafate and plan for outpatient endoscopy. Patient has had no vomiting since the night of admission. He still has compla ints of sore throat but this is improving. He was evaluated by speech who recommended regular diet with thin liquids and he has able to tolerate a diet without difficulty. Recommend outpatient follow-up with PCP as well as Gastroenterology. <LAYNE Faria - Last Filed: 04/13/21 17:10> Time Spent with Patient Time attestation: Total time spent providing and/or coordinating discharge services: <LAYNE Faria Last Filed: 04/13/21 17:10> Discharge coordination time: Greater than 30 minutes <LAYNE Faria Last Filed: 04/13/21 17:10> Quality: Stroke Does the patient have a stroke diagnosis?: No <LAYNE Faria Last Filed: 04/13/21 17:10> Physical Exam Vital Signs: Vital Signs: Last Vital Signs Temp 97 F 04/13/21 11:00 Pulse 75 04/13/21 11:00 Resp 18 04/13/21 11:00 BP 111/69 04/13/21 11:00 Pulse Ox 95 04/13/21 11:00 BMI result Body Mass Index 25.0 <LAYNE Faria Last Filed: 04/13/21 17:10> Const: Other: voice horse <LAYNE Faria Last Filed: 04/13/21 17:10> General: alert and awake <LAYNE Faria - Last Filed: 04/13/21 17:10> Nutritional Appearance: well nourished <LAYNE Faria - Last Filed: 04/13/21 17:10> Orientation/consciousness: patient oriented x3 <LAYNE Faria - Last Filed: 04/13/21 17:10> HENMT: Head: Yes normocephalic and Yes atraumatic <LAYNE Faria - Last Filed: 04/13/21 17:10> Eyes: Sclerae: sclerae normal <LAYNE Faria - Last Filed: 04/13/21 17:10> Resp: Effort & Inspection: normal respiratory effort and no respiratory distress <LAYNE Faria - Last Filed: 04/13/21 17:10> Cardio: Rate: regular rate <LAYNE Faria - Last Filed: 04/13/21 17:10> Rhythm: regular rhythm <LAYNE Faria - Last Filed: 04/13/21 17:10> GI: Inspection: No distended <LAYNE Faria - Last Filed: 04/13/21 17:10> Palpation (GI): Soft to palpation and nontender <LAYNE Faria - Last Filed: 04/13/21 17:10> Neuro: General: patient oriented x3 <LAYNE Faria - Last Filed: 04/13/21 17:10> Cranial nerves: Yes CN's II-XII intact bilaterally and Yes Bilaterally intact EOM present <LAYNE Faria - Last Filed: 04/13/21 17:10> Extrem: Other: able to move all 4 extremities spontaneously, no leg edema <LAYNE Faria - Last Filed: 04/13/21 17:10> DS: Data Data Completed and Pending Labs on day of discharge: Laboratory Results - last 24 hr 04/12/21 04/12/21 04/12/21 13:04 16:43 20:27 WBC RBC Hgb Hct MCV MCH MCHC RDW Plt Count MPV Immature Gran % (Auto) Neut % (Auto) Lymph % (Auto) [place] % (Auto) Eos % (Auto) Baso % (Auto) Lymph # (Auto) [place] # (Auto) Eos # (Auto) Baso # (Auto) Abs Immat Gran (auto) Absolute Neuts (auto) Absolute Nucleated RBC Nucleated RBC % (auto) POC Glucose 222 H 202 H 259 H 04/13/21 04/13/21 04/13/21 05:51 07:22 11:00 WBC 8.8 RBC 3.74 L Hgb 11.3 L Hct 33.5 L MCV 89.6 MCH 30.2 MCHC 33.7 RDW 13.5 Plt Count 247 MPV 9.4 Immature Gran % (Auto) 0.9 H Neut % (Auto) 74.8 H Lymph % (Auto) 15.3 L [place] % (Auto) 7.8 Eos % (Auto) 0.9 Baso % (Auto) 0.3 Lymph # (Auto) 1.4 [place] # (Auto) 0.7 Eos # (Auto) 0.1 Baso # (Auto) 0.0 Abs Immat Gran (auto) 0.08 H Absolute Neuts (auto) 6.6 Absolute Nucleated RBC 0.000 Nucleated RBC % (auto) 0.0 POC Glucose 173 H 201 H Preliminary micro results at discharge 04/11/21 16:09 Blood Culture - Preliminary Blood - Venous No growth after 24 hours. 04/11/21 15:24 Blood Culture - Preliminary Blood - Venous No growth after 24 hours. <LAYNE Faria - Last Filed: 04/13/21 17:10> Discharge Plan Discharge Patient Disposition: Home, Self-Care <LAYNE Faria - Last Filed: 04/13/21 17:10> Discharge Diagnosis: intractable nausea and vomiting leukocytosis gastroenteritis <LAYNE Faria - Last Filed: 04/13/21 17:10> intractable nausea and vomiting leukocytosis gastroenteritis <Richard Liao MD - Last Filed: 04/14/21 10:22> Referrals: Alondra Avila MD [Physician] - 1 Week Physician,Unknown J [Primary Care Provider] - 1 Week <LAYNE Faria - Last Filed: 04/13/21 17:10> Discharge Medications: New sucralfate [Carafate] 1 gram tablet 1 g PO QID 30 Days Qty: 120 RF: 0 Continued buprenorphine-naloxone [Suboxone] 2-0.5 mg film 1 film sublingual BID 10 Days Qty: 20 RF: 0 pantoprazole 40 mg tablet,delayed release (DR/EC) 1 tab PO DAILY RF: 0 atorvastatin 40 mg Tablet 40 mg PO DAILY Qty: 30 RF: 0 lisinopril 20 mg Tablet 20 mg PO DAILY Qty: 30 RF: 0 quetiapine 100 mg Tablet 100 mg PO BEDTIME Qty: 30 RF: 0 nicotine 21 mg/24 hr Patch 24 Hour 21 mg transdermal DAILY Qty: 30 RF: 0 gabapentin 300 mg Capsule 600 mg PO TID Qty: 60 RF: 0 metoprolol succinate 25 mg Tablet Extended Release 24 Hr 25 mg PO DAILY Qty: 30 RF: 0 metformin 500 mg Tablet Extended Release 24 Hr 1,000 mg PO BID Qty: 60 RF: 0 duloxetine 30 mg Capsule,Delayed Release(Dr/Ec) 30 mg PO DAILY Qty: 30 RF: 0 fenofibrate 54 mg Tablet 54 mg PO DAILY Qty: 30 RF: 0 Held aspirin 81 mg Tablet,Chewable 81 mg PO DAILY RF: 0 Hold Instructions: hold until follow up with PCP or GI No Action (DME) blood-glucose meter Kit See Rx Instructions .Route Qty: 1 RF: 0 <LAYNE Faria - Last Filed: 04/13/21 17:10> Discharge Orders: Discharge Order (Routine); Ordered 04/13/21 Ordered By: Re Vaz <LAYNE Faria - Last Filed: 04/13/21 17:10> Diet: diabetic diet <LAYNE Faria Last Filed: 04/13/21 17:10> diabetic diet <Richard Liao MD - Last Filed: 04/14/21 10:22> Activity on Discharge: As tolerated <LAYNE Faria Last Filed: 04/13/21 17:10> As tolerated <Richard Liao MD - Last Filed: 04/14/21 10:22> Stand Alone Forms: Patient Portal Discharge page <LAYNE Faria Last Filed: 04/13/21 17:10> Care Plan Goals: see below <LAYNE Faria - Last Filed: 04/13/21 17:10> Health Concerns: intractable nausea and vomiting related to gastroenteritis epigastric abdominal pain <LAYNE Faria - Last Filed: 04/13/21 17:10> Plan of Treatment: call to schedule follow up appointment with PCP call to schedule follow up appointment with GI to schedule outpatient endoscopy. can continue taking pantoprazole and start taking carafate until endoscopy can be scheduled. avoid NSAID (aspirin, Motrin, ibuprofen and the like) for the next week or two eat soft foods until your throat feels better <LAYNE Faria - Last Filed: 04/13/21 17:10> Assessment: see discharge summary I personally saw and examined thid patient and discussed findings, assessment, plan and disposition with mid level provider and I agree with? the above. DOS 04/13/21 <LAYNE Faria - Last Filed: 04/13/21 17:10> Discharge Date/Time: 04/13/21 17:33 <LAYNE Faria - Last Filed: 04/13/21 17:10>
--- NOTE | 2021-04-13 11:52 | MHC.CM.PN ---
Addendum entered by Shital Limon 04/13/21 11:53: PATIENT WAS ACTIVE WITH JULIAN GALLARDO PRIOR TO ADMISSION. AGENCY MADE AWARE OF PATIENT'S RETURN HOME Original Note: PATIENT IS DISCHARGED TO HOME - SELF CARE. RN AWARE OF PLAN.
--- NOTE | 2021-04-13 12:07 | MHC.SL.SWA ---
Speech Pathologist Impression: Within Functional Limits Risk of Aspiration Due to: None Dysphasia Diet Status: No Change Liquid Consistency and Strategies for Safe Swallow: Liquid Intake Recommendation: Thin Liquid Intake Strategies: Small Sips Solid Food Consistency: Dietary Recommendations: Regular Oral Medication Intake: Whole with Liquid Compensatory Strategies and Precautions to be Taken for Safe Swallow: Sitting Upright (90 deg) Small Bites and Sips Alternate Liquids/Solids Rate of Ingestion Change Avoid Specific Foods Supervision While Eating and Drinking for Safe Swallow: None Needed Foods to Avoid: tough difficult to chew foods d/t edentulous state Swallowing Recommended Treatments: Recommendation for Speech: NA:Typical Evaluation Prepared Foods Team Leader Clinican/Clinical Fellow: No Supervisory Statement: I have reviewed and agree with the student/clinical fellow's documentation: N/A Speech Language Pathologist: Joaquina Singleton M.A., CCC-ARM REST BUILDER
--- NOTE | 2021-04-13 12:16 | MHC.CM.PN ---
PATIENT NEEDS TRANSPORT HOME. 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 [facility] CH[facility]IR VAN TRANSPORT SET UP TO 1430. RN AND PATIENT AWARE
[2021-04-13 15:20] VITALS: BP 151/88; PULSE 83; RESP 18; TEMP 36.7; O2SAT 95
== END 2021-04-13 17:33 | disposition home or self-care (01) ==
LOC: HO.ED 16:09 → HO.EDOVER 17:52 → HO.S3 04-12 17:58
PROVIDERS: Admitting Provider Physician Assistant Medical; Emergency Provider Emergency Medicine; Visit Provider Physician Assistant Medical
DX: R10.13 Epigastric pain (principal); R11.2 Nausea with vomiting, unspecified; D72.829 Elevated white blood cell count, unspecified; K52.9 Noninfective gastroenteritis and colitis, unspecified; E11.42 Type 2 diabetes mellitus with diabetic polyneuropathy; I10 Essential (primary) hypertension; R00.0 Tachycardia, unspecified; E78.00 Pure hypercholesterolemia, unspecified; R07.89 Other chest pain; B19.10 Unspecified viral hepatitis B without hepatic coma; C34.90 Malignant neoplasm of unspecified part of unspecified bronchus or lung; J39.8 Other specified diseases of upper respiratory tract; J43.2 Centrilobular emphysema; R94.31 Abnormal electrocardiogram [ECG] [EKG]; R93.89 Abnormal findings on diagnostic imaging of other specified body structures; F17.210 Nicotine dependence, cigarettes, uncomplicated; F10.20 Alcohol dependence, uncomplicated; F14.20 Cocaine dependence, uncomplicated; F11.11 Opioid abuse, in remission; F41.9 Anxiety disorder, unspecified; F33.1 Major depressive disorder, recurrent, moderate; Z20.822 Contact with and (suspected) exposure to COVID-19; Z90.2 Acquired absence of lung [part of]; Z79.4 Long term (current) use of insulin; Z79.899 Other long term (current) drug therapy
CPT/HCPCS: 36415; 71250; 74018; 74176; 80048; 80076; 80307; 82077; 82947; 83605; 83690; 83735; 84484; 85025; 86850; 86900; 86901; 87040; 87635; 92610; 93005; 96361; 96365; 96366; 96375; 96376; 99218; 99285; J1200; J2060; J2270; J2405; J2765; J3475

== ENCOUNTER 2021-04-20 04:55 | Emergency (ER) | payer MEDICAID, SELFPAY ==
--- NOTE | 2021-04-20 | ECG_ITS ---
Test Reason : CHEST PAIN Blood Pressure : / mmHG Vent. Rate : 081 BPM Atrial Rate : 081 BPM P-R Int : 180 ms QRS Dur : 084 ms QT Int : 368 ms P-R-T Axes : 000 165 099 degrees QTc Int : 427 ms Normal sinus rhythm Left posterior fascicular block Abnormal ECG When compared with ECG of 12-APR-2021 08:54, Left posterior fascicular block is now Present Referred By: Generic ED Physician Electronically Signed By:GABRIELE CRUZ
--- NOTE | ~2021-04-20 | CT_ITS ---
EXAMINATION: CT ABDOMEN AND PELVIS WITH CONTRAST CLINICAL INFORMATION: Nausea, vomiting, diffuse abdominal pain and distention. Rule out obstruction. COMPARISON: CT abdomen and pelvis 04/11/2021. CT chest 04/11/2021 TECHNIQUE: Multidetector volumetric images were obtained from the superior aspect of the liver through the pubic symphysis following administration 85 mL of Omnipaque 350 intravenous contrast. Sagittal and coronal reformatted images were obtained on the technologist's workstation. Oral contrast: No This CT examination was performed using dose optimization techniques as appropriate, variously including the following: *Automated exposure control *Adjustment of mA and/or kV according to patient size (this includes techniques or standardized protocols for targeted exams where dose is matched to indication/reason for exam; i.e. extremities or head) *Use of iterative reconstruction technique DLP: 801 mGy-cm FINDINGS: LUNG BASES: The incidentally visualized distal thoracic esophagus demonstrates borderline finding suspicious for concentric mural thickening to a width of approximately 8 mm. No hiatal hernia is identified. The visualized lung bases demonstrate minimal posterior dependent atelectasis. LIVER, GALLBLADDER, AND BILIARY TREE: Diffuse hypoattenuation of the liver is present suspicious for hepatic steatosis. The gallbladder is unremarkable with no evidence of radiopaque gallstones, gallbladder wall thickening, or obvious pericholecystic inflammatory changes. PANCREAS: Unremarkable. SPLEEN: Unremarkable. ADRENAL GLANDS: Unremarkable. KIDNEYS AND URETERS: A single 3 mm rounded low-density focus is present peripherally in the interpolar segment left kidney and is too small to characterize but is most likely to be benign and warrants no specific imaging follow-up on the basis of this exam. No hydronephrosis or perinephric inflammatory changes. No urolithiasis. BLADDER: Unremarkable. GASTROINTESTINAL TRACT: Minimal sigmoid diverticulosis. Normal appendix. Normal terminal ileum. No free intraperitoneal fluid or gas collections. Normal appearance of the sigmoid and small bowel mesentery is. ABDOMINAL WALL: No significant hernia is appreciated. LYMPH NODES: Normal. VASCULAR: Diffuse calcific atherosclerosis. A 2.8 cm maximum diameter infrarenal abdominal aortic aneurysm which does not extend to the bifurcation is unchanged in size compared with 04/11/2021. PELVIC VISCERA: Normal appearance of the prostate and seminal vesicles. OSSEOUS STRUCTURES: Chronic appearing posttraumatic deformity of the inferior right pubic ramus. Chronic appearing posttraumatic deformity of the right iliac wing. L1 vertebral body compression deformity unchanged compared with 04/11/2021 without associated adjacent soft tissue inflammatory changes or significant retropulsion, with approximately 25% maximal loss of craniocaudal height anteriorly. CT/CT abdomen pelvis w con IMPRESSION: *Borderline concentric mural thickening of the visualized distal thoracic esophagus. This finding may indicate esophagitis, or in the correct clinical setting, neoplasm. *No acute abnormalities within the abdomen and pelvis. No evidence of intestinal obstruction. Mild sigmoid diverticulosis. No evidence of diverticulitis. *Diffuse hepatic steatosis. *2.8 cm fusiform infrarenal abdominal aortic aneurysm. Per the [employer] 2013 recommendations, consider 5 year interval follow-up imaging to assess stability. *Chronic posttraumatic deformity of the inferior right pubic ramus and chronic mild anterior wedge deformity of the L1 vertebral body.
--- NOTE | ~2021-04-20 | XR_ITS ---
EXAMINATION: XR CHEST CLINICAL INFORMATION: Chest pain COMPARISON: CT scan of April 11, 2021 TECHNIQUE: AP portable view of the chest was obtained. FINDINGS: Patient status post previous right lung surgery with loss of volume. There is noted to be resection of portion of the right sixth rib. No pneumothorax or pleural effusion identified. No acute parenchymal disease is appreciated. Heart normal size. No evidence of pulmonary edema. XR/XR chest 1V IMPRESSION: Postsurgical change right hemithorax. No acute disease.
[2021-04-20 05:39] VITALS: BP 185/89; PULSE 77; RESP 16; TEMP 36.6; O2SAT 96; BMI 24.3
--- NOTE | 2021-04-20 07:29 | ED_ITS ---
HPI - Nausea/Vomiting/Diarrhea General Chief complaint: Nausea/Vomiting/Diarrhea Stated complaint: multiple complaints Time Seen by Provider: 04/20/21 07:15 Source: patient Mode of arrival: EMS Limitations: no limitations History of Present Illness HPI Narrative: 60-year-old male who presents emergency department for evaluation of nausea, vomiting and abdominal pain. The patient had a similar presentation on 04/11/2021 with an unremarkable workup in the emergency department. He states that since leaving the emergency department he has had continuous nausea with emesis once or twice a day and dry heaves frequently throughout the day. He states that he had a subjective fever at home but no chills. He has had rhinorrhea and a sore throat secondary to his vomiting. He denied chest pain, shortness of breath, dyspnea on exertion. He states that he is having abdominal pain he runs his hand diffusely across his abdomen when asked to localize the pain. States the pain is a constant, sharp pain which is worse with eating and worse with vomiting, the pain is 8/10 at its worst. In reviewing his record from 04/11/2021 the patient states that he ate chicken at the [employer] store and 30 minutes later started vomiting, he was apparently vomiting all night and did have some substernal chest pain after vomiting during that admission. The patient had persistent vomiting with some blood in the emesis, [place] [id number] scan of the abdomen which revealed no acute process. He was admitted to the hospital for approximately 3 days. He had a GI consult which concluded that he most likely had gastroenteritis with possible reflux causing esophageal thickening. Rec ommendation was to place the patient on PPI and Carafate switch I do not that he has been compliant with. Patient does have a history polysubstance abuse was seen on 03/20/2021 and started on Suboxone but he states that he is no longer taking Suboxone. The patient has not been vaccinated for COVID-19. Related Data Home Medications Medication Instructions Recorded Confirmed aspirin 81 mg chewable tablet 81 mg PO DAILY 03/18/21 04/11/21 pantoprazole 40 mg tablet,delayed 1 tab PO DAILY 03/18/21 04/11/21 release Previous Rx's Medication Instructions Recorded buprenorphine 2 mg-naloxone 0.5 mg 1 film SUBLINGUAL BID 10 Days #20 03/25/21 sublingual film (Suboxone) ea atorvastatin 40 mg tablet 40 mg PO DAILY #30 tab 03/26/21 blood-glucose meter #1 ea 03/26/21 duloxetine 30 mg capsule,delayed 30 mg PO DAILY #30 cap 03/26/21 release fenofibrate 54 mg tablet 54 mg PO DAILY #30 tab 03/26/21 gabapentin 300 mg capsule 600 mg PO TID #60 cap 03/26/21 lisinopril 20 mg tablet 20 mg PO DAILY #30 tab 03/26/21 metformin 500 mg tablet,extended 1,000 mg PO BID #60 tab 03/26/21 release 24 hr metoprolol succinate 25 mg 25 mg PO DAILY #30 tab 03/26/21 tablet,extended release 24 hr nicotine 21 mg/24 hr daily 21 mg TRANSDERMAL DAILY #30 ea 03/26/21 transdermal patch quetiapine 100 mg tablet 100 mg PO BEDTIME #30 tab 03/26/21 sucralfate 1 gram tablet (Carafate) 1 g PO QID 30 Days #120 tab 04/13/21 ondansetron 4 mg disintegrating 4 mg PO Q6-8H PRN #14 tab 04/20/21 tablet Allergies Allergy/AdvReac Type Severity Reaction Status Date / Time No Known Allergies Allergy Verified 03/18/21 06:54 Review of Systems Review of Systems: Yes all other systems are reviewed and are negative [facility] Past Medical History Attestation statement: The following information was validated with the patient. [facility] Narrative: Social history: The patient smokes 2 packs of cigarettes per day times 35 years. The patient denies drinking alcohol. He states that he does use cocaine occasionally but has not used in 3 weeks, he states that he smokes cocaine. He states he occasionally uses marijuana. He denies opiate use. Medical History Cocaine use disorder, moderate, dependence Diabetes HTN (hypertension) MDD (major depressive disorder), recurrent episode, moderate Opioid use disorder, mild, in sustained remission Social History Social History Household Members: None Housing: Apartment Do you presently have visiting nurse or other home services: No Alcohol intake: never Patient Tobacco Use Status: Current everyday Tobacco user Tobacco use type: Cigarette Cigarette Packs Per Day: 2 Cigarettes Per Day: 40.0 Second Hand Smoke Exposure: No Use of substances other than those prescribed or required for medical reasons: Yes Substance Use Type: Crack/Cocaine Advance Directives: No Advance Directives Information Provided: No service: Yes Current occupational status: disabled Sexual orientation: Lesbian/Navarrete/Homosexual Physical Exam Vital Signs: Vital Signs: Last Vital Signs Temp 98.0 F 04/20/21 10:02 Pulse 91 04/20/21 10:02 Resp 18 04/20/21 10:02 BP 176/89 H 04/20/21 10:02 Pulse Ox 97 04/20/21 10:02 BMI result Body Mass Index 24.3 Const: General: cooperative and no acute distress Orientation/consciousness: oriented to person and oriented to place Limitations: no limitations HENMT: Head: Yes normal to inspection, Yes normocephalic and Yes atraumatic Ears: external ears normal General nose exam: Normal external nose present Face and sinus: Yes normal facial exam Mouth: Normal oral and palatal mucosa present Throat: Yes posterior oropharynx normal Eyes: General: appearance normal, both eyes and all related structures Pupils: Equal, round and reactive pupils present Neck: Neck: Yes normal visual inspection, Yes no lymphadenopathy, Yes trachea midline and Yes supple Chest: Chest palpation & inspection: normal inspection of the chest and normal palpation of entire chest wall Resp: Effort & Inspection: normal respiratory effort and able to speak in complete sentences Auscultation: clear to auscultation bilaterally Cardio: Rate: regular rate Rhythm: regular rhythm Heart sounds: S1 normal heart sound present, S2 normal heart sound present and no murmurs GI: Inspection: Yes normal to inspection Palpation (GI): Soft to palpation, nontender and no guarding Auscultation: normal bowel sounds : General: Yes no CVA tenderness Back/Spine/Pelvis: Back: no CVA tenderness Skin: General skin exam: no rashes or lesions noted Neuro: General: oriented to person and oriented to place Cranial nerves: Yes CN's II-XII intact bilaterally and Yes Equal, round and reactive pupils present Cognition (Neuro): normal cognition Motor exam (neuro): 5/5 motor strength present throughout Extrem: General: Yes normal to inspection Psych: Appearance: grossly normal Speech and movement: Normal speech and movement present Affect: normal affect Attitude: cooperative Thought process: Normal thought process present Thought content: Normal thought content present Course Course Course Narrative: 60-year-old male who presents emergency department for evaluation of vomiting for at 9-10 days. He also complains of sore throat which he attributes to his vomiting, subjective fever, rhinorrhea and diffuse abdominal pain. Patient had a similar presentation on 04/11/2021 and was admitted to the hospital until 04/13/2021. He had a GI consult at that time the concluded that had gastroenteritis with reflux causing esophageal thickening. The patient was supposed to be taking PPIs and Carafate which I think he is noncompliant with. Patient states that he continues to vomited at least once or twice a day with constant nausea and dry heaves. He is complaining of diffuse a bdominal pain. Vital signs revealed an elevated blood pressure of 185/89. Vital signs were otherwise normal. I did order a CBC, CMP, lipase, troponin, EKG, chest x-ray and CT scan of the abdomen pelvis with IV contrast. The patient was ordered to get Toradol 15 mg IV, Zofran 4 mg IV and normal saline x1 L IV. 1103: Patient's laboratory evaluation was unremarkable except for an elevated glucose of 245 and an elevated ALT of 45. The patient's COVID-[address] scan of the abdomen pelvis was very similar to the previous study which revealed esophageal thickening. This is consistent with esophagitis however malignancy needs to be considered. The patient was seen by GI when use here in the hospital during his last admission. The patient states that he has been taking his PPI and Carafate but does not think that he has an antinausea medication at home. The patient will need to continue taking his medications and follow-up with GI. patient is feeling better after the above treatment. I will prescribe Zofran ODT for him as well. The patient was given printed and verbal instructions and discharged home. MDM - Nausea/Vomiting/Diarrhea Lab Data Result diagrams: 04/20/21 08:26 04/20/21 08:26 Labs: Lab Results 04/20/21 04/20/21 04/20/21 Range/Units 08:05 08:26 08:26 WBC 9.9 (4.8-10.8) X10*3/uL RBC 4.78 D (4.60-5.80) X10*6/uL Hgb 14.3 D (14.0-18.0) g/dl Hct 41.0 L D (42.0-52.0) % MCV 85.8 (80.0-98.0) fL MCH 29.9 (27.0-33.0) pg MCHC 34.9 (31.0-36.0) g/dl RDW 13.2 (11.0-16.0) % Plt Count 266 (160-400) X10*3/uL MPV 9.0 L (9.4-12.4) fL Immature Gran % (Auto) 0.7 H (0.0-0.4) % Neut % (Auto) 81.4 H (45-73) % Lymph % (Auto) 10.9 L (20-40) % Mcdowell % (Auto) 6.5 (2-11) % Eos % (Auto) 0.1 (0-4) % Baso % (Auto) 0.4 (0-2) % Lymph # (Auto) 1.1 L (1.2-4.9) X10*3/uL Mcdowell # (Auto) 0.6 (0.1-1.2) X10*3/uL Eos # (Auto) 0.0 (0.0-0.4) X10*3/uL Baso # (Auto) 0.0 (0.0-0.2) X10*3/uL Abs Immat Gran (auto) 0.07 H (0.00-0.03) X10*3/uL Absolute Neuts (auto) 8.1 (2.0-8.3) x10*3/uL Absolute Nucleated RBC 0.000 (0.0-0.012) X10*3/uL Nucleated RBC % (auto) 0.0 (0.0-0.2) /100WBC Sodium 137 (135-145) mmol/L Potassium 4.3 (3.3-5.1) mmol/L Chloride 102 (96-108) mmol/L Carbon Dioxide 26 (22-29) mmol/L Anion Gap 13 (12-20) BUN 18 H D (9-16) mg/dL Creatinine 0.92 (0.5-1.4) mg/dL Estim Creat Clear Calc 87.5 Estimated GFR > 60 Random Glucose 245 H (60-115) mg/dL Calcium 9.8 D (8.4-10.2) mg/dL Total Bilirubin 0.8 (0.0-1.0) mg/dL AST 25 (5-37) U/L ALT 45 H (0-40) U/L Alkaline Phosphatase 74 (39-117) U/L Troponin I High Sens (<3.5-35.0) ng/L Total Protein 7.2 (6.5-8.0) g/dL Albumin 4.5 (3.5-5.0) g/dL Lipase (8-78) U/L Urine Color Urine Appearance Urine pH (5.0-8.0) Ur Specific Slovan (1.005-1.025) Urine Protein (NEG-TRACE) MG/DL Urine Glucose (UA) (NEG) MG/DL Urine Ketones (NEG) MG/DL Urine Blood (NEG) Urine Nitrite (NEG) Ur Leukocyte Esterase (NEG) Urine RBC (0) /HPF Urine WBC (0-4) /HPF Ur Squamous Epith Cells /LPF Calcium Oxalate Crystal /LPF Amorphous Sediment /LPF Urine Bacteria /LPF Urine Mucus /LPF COVID-19 ([facility]) Negative (Negative) COVID-19 Clin Com See Note 04/20/21 04/20/21 04/20/21 Range/Units 08:26 08:26 10:05 WBC (4.8-10.8) X10*3/uL RBC (4.60-5.80) X10*6/uL Hgb (14.0-18.0) g/dl Hct (42.0-52.0) % MCV (80.0-98.0) fL MCH (27.0-33.0) pg MCHC (31.0-36.0) g/dl RDW (11.0-16.0) % Plt Count (160-400) X10*3/uL MPV (9.4-12.4) fL Immature Gran % (Auto) (0.0-0.4) % Neut % (Auto) (45-73) % Lymph % (Auto) (20-40) % Mcdowell % (Auto) (2-11) % Eos % (Auto) (0-4) % Baso % (Auto) (0-2) % Lymph # (Auto) (1.2-4.9) X10*3/uL Mcdowell # (Auto) (0.1-1.2) X10*3/uL Eos # (Auto) (0.0-0.4) X10*3/uL Baso # (Auto) (0.0-0.2) X10*3/uL Abs Immat Gran (auto) (0.00-0.03) X10*3/uL Absolute Neuts (auto) (2.0-8.3) x10*3/uL Absolute Nucleated RBC (0.0-0.012) X10*3/uL Nucleated RBC % (auto) (0.0-0.2) /100WBC Sodium (135-145) mmol/L Potassium (3.3-5.1) mmol/L Chloride (96-108) mmol/L Carbon Dioxide (22-29) mmol/L Anion Gap (12-20) BUN (9-16) mg/dL Creatinine (0.5-1.4) mg/dL Estim Creat Clear Calc Estimated GFR Random Glucose (60-115) mg/dL Calcium (8.4-10.2) mg/dL Total Bilirubin (0.0-1.0) mg/dL AST (5-37) U/L ALT (0-40) U/L Alkaline Phosphatase (39-117) U/L Troponin I High Sens 8.6 D (<3.5-35.0) ng/L Total Protein (6.5-8.0) g/dL Albumin (3.5-5.0) g/dL Lipase 53 (8-78) U/L Urine Color YELLOW Urine Appearance CLEAR Urine pH 6.0 (5.0-8.0) Ur Specific Slovan >= 1.030 H (1.005-1.025) Urine Protein 1+ H (NEG-TRACE) MG/DL Urine Glucose (UA) 500 H (NEG) MG/DL Urine Ketones 15 (NEG) MG/DL Urine Blood NEG (NEG) Urine Nitrite NEG (NEG) Ur Leukocyte Esterase NEG (NEG) Urine RBC 0 (0) /HPF Urine WBC 0-2 (0-4) /HPF Ur Squamous Epith Cells NONE /LPF Calcium Oxalate Crystal 2+ /LPF Amorphous Sediment 2+ /LPF Urine Bacteria NONE /LPF Urine Mucus 3+ /LPF COVID-19 ([facility]) (Negative) COVID-19 Clin Com Imaging Data CT scan abdomen pelvis with IV contrast: Radiologist's impression: IMPRESSION: *Borderline concentric mural thickening of the visualized distal thoracic esophagus. This finding may indicate esophagitis, or in the correct clinical setting, neoplasm. *No acute abnormalities within the abdomen and pelvis. No evidence of intestinal obstruction. Mild sigmoid diverticulosis. No evidence of diverticulitis. *Diffuse hepatic steatosis. *2.8 cm fusiform infrarenal abdominal aortic aneurysm. Per the [place] [employer] 2013 recommendations, consider 5 year interval follow-up imaging to assess stability. *Chronic posttraumatic deformity of the inferior right pubic ramus and chronic mild anterior wedge deformity of the L1 vertebral body. Dictated By: REINA PERSAUD MD Discharge Plan Discharge Clinical Impression: Esophagitis Vomiting Qualifiers: Vomiting type: unspecified Nausea presence: with nausea Qualified Code(s): R11.2 - Nausea with vomiting, unspecified Gastritis Qualifiers: Gastritis type: unspecified gastritis Chronicity: acute Gastritis bleeding: without bleeding Qualified Code(s): K29.00 - Acute gastritis without bleeding Patient Disposition: Home, Self-Care Instructions: Esophagitis (ED) Additional Instructions: Your blood work was unremarkable. Your COVID-[address] test was negative. The CT scan of your abdomen pelvis with IV contrast was similar to your 1 obtained on the previous admission on 04/11/2021. CT scan shows thickening your esophagus which is consistent with inflammation of the esophagus (esophagitis). During your hospitalization last time you were seen by Dr. Avila who is a ambulance driver paramedic. You should follow-up with Dr. Avila in 1 month for re-evaluation and for possible upper endoscopy if you still have symptoms to evaluate the inflammation of the esophagus. Continue taking pantoprazole and Carafate as prescribed previously. These medications should help with your esophagitis. Take Tylenol (acetaminophen) 500 mg pills, 2 pills every 4 to 6 hours as needed for pain. Take Zofran ODT 4 mg pills, 1 pill dissolved in your mouth every 8 hours as needed for nausea and vomiting. Follow-up with your doctor in 2 days. Please return to the emergency department if your symptoms get worse or if you develop any symptoms that are concerning to you. Prescriptions: New ondansetron 4 mg tablet,disintegrating 4 mg PO Q6-8H PRN (Reason: nausea and vomiting) Qty: 14 RF: 0 No Action buprenorphine-naloxone [Suboxone] 2-0.5 mg film 1 film sublingual BID 10 Days Qty: 20 RF: 0 sucralfate [Carafate] 1 gram tablet 1 g PO QID 30 Days Qty: 120 RF: 0 pantoprazole 40 mg tablet,delayed release (DR/EC) 1 tab PO DAILY RF: 0 aspirin 81 mg Tablet,Chewable 81 mg PO DAILY RF: 0 Hold Instructions: hold until follow up with PCP or GI atorvastatin 40 mg Tablet 40 mg PO DAILY Qty: 30 RF: 0 lisinopril 20 mg Tablet 20 mg PO DAILY Qty: 30 RF: 0 quetiapine 100 mg Tablet 100 mg PO BEDTIME Qty: 30 RF: 0 nicotine 21 mg/24 hr Patch 24 Hour 21 mg transdermal DAILY Qty: 30 RF: 0 gabapentin 300 mg Capsule 600 mg PO TID Qty: 60 RF: 0 metoprolol succinate 25 mg Tablet Extended Release 24 Hr 25 mg PO DAILY Qty: 30 RF: 0 metformin 500 mg Tablet Extended Release 24 Hr 1,000 mg PO BID Qty: 60 RF: 0 duloxetine 30 mg Capsule,Delayed Release(Dr/Ec) 30 mg PO DAILY Qty: 30 RF: 0 fenofibrate 54 mg Tablet 54 mg PO DAILY Qty: 30 RF: 0 (DME) blood-glucose meter Kit See Rx Instructions .Route Qty: 1 RF: 0
[2021-04-20 08:00] VITALS: BP 176/84; PULSE 72; RESP 18; TEMP 36.8; O2SAT 96
[2021-04-20] MEDS: 0.9 % Sodium Chloride 1,000 ML 999 ML IV (08:02)
[2021-04-20] MEDS: Ketorolac Tromethamine 30 MG/ML VIAL 15 MG IVPUSH (08:02)
[2021-04-20] MEDS: ondansetron HCL 4 MG/2 ML VIAL IVPUSH (08:03)
--- NOTE | 2021-04-20 08:11 | PC.NURSE ---
patient a&ox3,c/o mid sternal chest pain as well as abd pain, secured entrance monitor applied, nsr on monitor, iv inserted, covid swab obtained, pt medicated per order will continue to monitor.
[2021-04-20 08:25] LABS: COVID-19 Test Negative (Negative); IDNOW Serial# 9DD0AD1C
[2021-04-20 08:30] LABS: MANUAL DIFF FLAG NO
[2021-04-20 08:32] LABS: Basophils Percent Auto 0.4 % (0-2); Eosinophils Percent Auto 0.1 % (0-4); Hemoglobin 14.3 g/dl (14.0-18.0); Imm Gran Abs Auto 0.07 X10*3/uL (0.00-0.03); Imm Gran Pct Auto 0.7 % (0.0-0.4); Lymphocytes Absolute Auto 1.1 X10*3/uL (1.2-4.9); Lymphocytes Percent Auto 10.9 % (20-40); Mean Corpuscular HGB Conc 34.9 g/dl (31.0-36.0); Mean Corpuscular Hemoglobin 29.9 pg (27.0-33.0); Mean Corpuscular Volume 85.8 fL (80.0-98.0); Monocytes Absolute Auto 0.6 X10*3/uL (0.1-1.2); Monocytes Percent Auto 6.5 % (2-11); Neutrophils Absolute Auto 8.1 x10*3/uL (2.0-8.3); Neutrophils Percent Auto 81.4 % (45-73); Platelet Count 266 X10*3/uL (160-400); Red Blood Count 4.78 X10*6/uL (4.60-5.80); Red Cell Distribution Width 13.2 % (11.0-16.0); White Blood Count 9.9 X10*3/uL (4.8-10.8)
[2021-04-20 08:51] LABS: Alanine Aminotransferase 45 U/L (0-40); Albumin Level 4.5 g/dL (3.5-5.0); Alkaline Phosphatase 74 U/L (39-117); Anion Gap 13 (12-20); Aspartate Amino Transferase 25 U/L (5-37); Bilirubin Total 0.8 mg/dL (0.0-1.0); Blood Urea Nitrogen 18 mg/dL (9-16); Calcium 9.8 mg/dL (8.4-10.2); Carbon Dioxide 26 mmol/L (22-29); Chloride 102 mmol/L (96-108); Creatinine Clr Calc Pharmacy 87.5; Estimated Glomerular Filt Rate > 60; Glucose Random 245 mg/dL (60-115); Lipase 53 U/L (8-78); Potassium 4.3 mmol/L (3.3-5.1); Sodium 137 mmol/L (135-145); Total Protein 7.2 g/dL (6.5-8.0); Troponin-I High Sensitivity 8.6 ng/L (<3.5-35.0)
[2021-04-20] MEDS: iohexoL 350 MG/ML 100 ML INFUS..BTL IV (10:00)
[2021-04-20 10:02] VITALS: BP 176/89; PULSE 91; RESP 18; TEMP 36.7; O2SAT 97
--- NOTE | 2021-04-20 10:08 | PC.NURSE ---
patient a&ox3, ekg monitor tech nsr, pt c/o abd pain as well as midsternal chest pain 10/04, vss, pt also states he continues to have heartburn, will continue to monitor.
[2021-04-20 10:11] LABS: Appearance Urine CLEAR; Color Urine YELLOW; Glucose Urine UA 500 MG/DL (NEG); Leukocyte Esterase Urine NEG (NEG); Nitrite Urine NEG (NEG); Specific Gravity - Urine >= 1.030 (1.005-1.025); UACC Culture Trigger NO; Urine Blood NEG (NEG); Urine Ketones 15 MG/DL (NEG); Urine Protein 1+ MG/DL (NEG-TRACE)
[2021-04-20 10:35] LABS: Calcium Oxalate Crystals Urine 2+ /LPF; RBC Urine 0 /HPF (0); WBC Urine 0-2 /HPF (0-4)
[2021-04-20 10:36] LABS: Amorphous Sediment Urine 2+ /LPF; Mucus Urine 3+ /LPF
[2021-04-20 11:46] VITALS: BP 154/87; PULSE 84; RESP 17; TEMP 36.7; O2SAT 95
--- NOTE | 2021-04-20 11:47 | PC.NURSE ---
patient a&ox3, pt c/o mid sternal chest discomfort, hunter nsr 80s, vss, pt awaiting ems for transport home, will continue to monitor.
--- NOTE | 2021-04-20 19:16 | PC.NURSE ---
pt still in mwr watching tv, food provided and alert, speech clear, nad, pt informed that a ambulance ride will not be here for at least a few hours
== END 2021-04-20 11:51 | disposition home or self-care (01) ==
PROVIDERS: Emergency Provider Emergency Medicine Emergency Medical Services
DX: K29.00 Acute gastritis without bleeding (principal); K20.90 Esophagitis, unspecified without bleeding; E11.65 Type 2 diabetes mellitus with hyperglycemia; I10 Essential (primary) hypertension; Z91.14 Patient's other noncompliance with medication regimen; Z20.822 Contact with and (suspected) exposure to COVID-19
CPT/HCPCS: 36415; 71045; 74177; 80053; 81001; 83690; 84484; 85025; 87635; 93005; 96361; 96374; 96375; 99284; 99285; J1885; J2405; Q9967

== ENCOUNTER 2021-04-24 08:43 | Inpatient (IN) | payer MEDICAID, SELFPAY ==
--- NOTE | ~2021-04-24 | CT_ITS ---
EXAMINATION: CT HEAD WITHOUT CONTRAST CLINICAL INFORMATION: Altered mental status COMPARISON: None TECHNIQUE: Contiguous axial imaging was performed from the skull base to vertex without intravenous administration of contrast. This CT examination was performed using dose optimization techniques as appropriate, variously including the following: *Automated exposure control *Adjustment of mA and/or kV according to patient size (this includes techniques or standardized protocols for targeted exams where dose is matched to indication/reason for exam; i.e. extremities or head) *Use of iterative reconstruction technique DLP: 702 mGy-cm FINDINGS: There is no evidence of acute intracranial hemorrhage or territorial infarction. Trace linear hyperdensity adjacent to the lateral aspect of the left tentorium is favored to reflect calcification. No abnormal mass effect or midline shift is seen. Kraft to white matter differentiation is well preserved. No extra-axial fluid collections are identified. The ventricles are normal in size. Region of chronic appearing encephalomalacia is present in the right temporo-occipital region. No acute fracture seen. Left-sided facial fixation hardware is present. The mastoid air cells and visualized portions of the paranasal sinuses are well aerated. CT/CT head/brain wo con IMPRESSION: No acute intracranial pathology. Region of right temporo-occipital encephalomalacia.
--- NOTE | ~2021-04-24 | XR_ITS ---
EXAMINATION: XR CHEST CLINICAL INFORMATION: Chest pain. COMPARISON: 04/20/2021 chest radiograph. TECHNIQUE: Frontal view of the chest was obtained. FINDINGS: The lungs are clear. 2 surgical clips overlie the right chest. The mediastinal structures are unremarkable. XR/XR chest 1V IMPRESSION: No acute cardiopulmonary process.
[2021-04-24 08:59] VITALS: BP 81/48; PULSE 107; RESP 35; BMI 24.7
--- NOTE | 2021-04-24 09:09 | ECG_ITS ---
Test Reason : SOB Blood Pressure : / mmHG Vent. Rate : 113 BPM Atrial Rate : 113 BPM P-R Int : 166 ms QRS Dur : 082 ms QT Int : 330 ms P-R-T Axes : 021 028 063 degrees QTc Int : 452 ms Sinus tachycardia Otherwise normal ECG When compared with ECG of 20-APR-2021 05:21, previous ECG had limb lead reversal. Referred By: Annette Matson Electronically Signed By:Stanley Luna
--- NOTE | 2021-04-24 09:17 | ED_ITS ---
HPI - General Adult General Chief complaint: General Medical Stated complaint: CP,SOB,NAUSEA,DIARRHEA,SEEN RECENTLY FOR SAME Time Seen by Provider: 04/24/21 09:09 Source: patient, EMS and old records reviewed Mode of arrival: EMS Limitations: no limitations History of Present Illness HPI narrative: 60 y/o male with history of DM2, neuropathy, HTN, HLD, depression, substance abuse who had recent admission to [facility] [place] 04/11-04/13 for epigastric abdominal pain and intractable vomiting who presents to the ER from home via EMS with persistent vomiting that started last night. He reports vomiting about 40 times overnight. It is dark brown in color. No bright red blood. He also reports new onset of dark black stools that started yesterday as well. Stools are formed and there is no diarrhea. He has some epigastric abdominal pain as well which she has had on and off for several weeks. He reports his sugars at home have been very poorly controlled. He is unable to the ?take care of himself? and he is feeling more depressed and suicidal. MD complaint: coffee ground emesis and black stools Onset (ago): day(s) (1) Location: abdomen Radiation: non-radiation Severity: moderate Severity scale (1-10): 5 Quality: aching Pain Consistency: constant Exacerbating factors: eating and other (vomiting) Associated symptoms: nausea/vomiting, shortness of breath and weakness Treatments prior to arrival: none Related Data Home Medications Medication Instructions Recorded Confirmed aspirin 81 mg chewable tablet 81 mg PO DAILY 03/18/21 04/11/21 pantoprazole 40 mg tablet,delayed 1 tab PO DAILY 03/18/21 04/11/21 release Previous Rx's Medication Instructions Recorded buprenorphine 2 mg-naloxone 0.5 mg 1 film SUBLINGUAL BID 10 Days #20 03/25/21 sublingual film (Suboxone) ea atorvastatin 40 mg tablet 40 mg PO DAILY #30 tab 03/26/21 blood-glucose meter #1 ea 03/26/21 duloxetine 30 mg capsule,delayed 30 mg PO DAILY #30 cap 03/26/21 release fenofibrate 54 mg tablet 54 mg PO DAILY #30 tab 03/26/21 gabapentin 300 mg capsule 600 mg PO TID #60 cap 03/26/21 lisinopril 20 mg tablet 20 mg PO DAILY #30 tab 03/26/21 metformin 500 mg tablet,extended 1,000 mg PO BID #60 tab 03/26/21 release 24 hr metoprolol succinate 25 mg 25 mg PO DAILY #30 tab 03/26/21 tablet,extended release 24 hr nicotine 21 mg/24 hr daily 21 mg TRANSDERMAL DAILY #30 ea 03/26/21 transdermal patch quetiapine 100 mg tablet 100 mg PO BEDTIME #30 tab 03/26/21 sucralfate 1 gram tablet (Carafate) 1 g PO QID 30 Days #120 tab 04/13/21 ondansetron 4 mg disintegrating 4 mg PO Q6-8H PRN #14 tab 04/20/21 tablet Allergies Allergy/AdvReac Type Severity Reaction Status Date / Time No Known Allergies Allergy Verified 03/18/21 06:54 Review of Systems Review of Systems: Constitutional: No Fever, No Chills ENT/Mouth: No sore throat, No Rhinorrhea, No Swallowing Difficulty Cardiovascular: No Chest Pain, + SOB, No Orthopnea, No Edema Respiratory: No Cough, No Sputum, No Wheezing, No dyspnea Gastrointestinal: + Nausea, + Vomiting, No Diarrhea, + abdominal Pain, No Hematochezia, + Melena, +Coffee ground emesis Genitourinary: No Dysuria, No Urinary Frequency, No Hematuria Musculoskeletal: No joint pain, No Myalgias Skin: No Skin Lesions, No rash Neuro: + Weakness, No Numbness, + Dizziness, No Headache Psych: No Anxiety/Panic, + Depression, +SI Heme/Lymph: + Bruising, No Lymphadenopathy Endocrine: No Polyuria, No Polydipsia PMFSH Past Medical History Medical History Cocaine use disorder, moderate, dependence Diabetes HTN (hypertension) MDD (major depressive disorder), recurrent episode, moderate Opioid use disorder, mild, in sustained remission Social History Social History Household Members: None Housing: Apartment Do you presently have visiting nurse or other home services: No Alcohol intake: never Patient Tobacco Use Status: Current everyday Tobacco user Tobacco use type: Cigarette Cigarette Packs Per Day: 2 Cigarettes Per Day: 40.0 Second Hand Smoke Exposure: No Substance Use Type: Crack/Cocaine Advance Directives: No Advance Directives Information Provided: No service: Yes Current occupational status: disabled Sexual orientation: Lesbian/Navarrete/Homosexual Physical Exam Vital Signs: Vital Signs: Last Vital Signs Temp 97.6 F 04/24/21 11:37 Pulse 116 H 04/24/21 13:05 Resp 33 H 04/24/21 13:05 BP 112/67 04/24/21 13:05 Pulse Ox 100 04/24/21 13:05 BMI result Body Mass Index 24.7 Appearance: Alert. Oriented X3. No acute distress. Eyes: Pupils equal, round and reactive to light. ENT: Pharynx with dry mucous membranes, dried dark vomitus around the mouth Neck: Normal inspection. Neck supple. CVS: Tachycardic, regular rhythm. Pulses normal. Respiratory: No respiratory distress. Breath sounds normal. Abdomen: Softly distended with epigastric tenderness. +BS x4 Skin: Skin warm and dry. Normal skin color. Normal skin turgor. No rashes. Extremities: LUE with ecchymosis to AC area. No lower extremity edema. Neuro: Oriented X 3. No motor deficit. No sensory deficit. Slightly garbled speech Course Course Course Narrative: 60-year-old male with a history poorly controlled diabetes, HTN, HLD, neuropathy, depression who presents to the ER with several episodes of coffee-ground emesis as well as melena that started yesterday. He is tachycardic and hypotensive on arrival. Concern for acute GI bleed and hypovolemia. Plan to establish IV access x2, start IV fluids and Protonix ordered. H/H, coags, CMP, and COVID ordered. Reevaluation(s) Reevaluation #1: Nursing unable to get PIV despite U/S. No labs drawn yet d espite multiple attempts. Right EJ placed by myself. IVF infusing and labs drawn. BP remains in the 80s, AAO x3. Warm and well perfused. No distress. Reevaluation #2: Lab workup showing a 4 point drop in his hemoglobin and over a 10 point drop in his hematocrit from only 4 days ago. No active bleeding at this time. Will get a type and screen and plan for blood transfusion if he starts vomiting or has more active melena. Level so showing a troponin of 219. His EKG does not have any ischemic changes and he has no chest pain. This is most likely a type 2 demand NSTEMI from his hypotension and GI bleeding. Repeat troponin ordered for 3 hours. Reevaluation #3: CMP wtih YE and hyponatremia, most likely due to hypovolemia. 2L IVF ordered. Urine lytes ordered as well. His BP significantly improved with fluids, now 100s systolic. Found to be COVID positive. He is unvaccinated. SpO2 100% on room air. Today's chest x-ray showed no acute process. Repeat troponin pending at 14:00 will also get a repeat H&H. Patient is agreeable to blood transfusion if needed. Will plan to admit to the hospital for further management. Procedures EJ/Peripheral Line Neck R: Time Out Performed: Yes Size (gauge): 20 IV Secured and Dressing Applied: Yes Patient Tolerated Procedure: well Medical Decision Making Lab Data Result diagrams: 04/24/21 11:03 04/24/21 11:03 Labs: Lab Results 04/24/21 04/24/21 04/24/21 Range/Units 10:23 11:02 11:03 WBC 10.5 (4.8-10.8) X10*3/uL RBC 3.41 L D (4.60-5.80) X10*6/uL Hgb 10.3 L D (14.0-18.0) g/dl Hct 29.8 L D (42.0-52.0) % MCV 87.4 (80.0-98.0) fL MCH 30.2 (27.0-33.0) pg MCHC 34.6 (31.0-36.0) g/dl RDW 13.4 (11.0-16.0) % Plt Count 217 (160-400) X10*3/uL MPV 9.6 (9.4-12.4) fL Immature Gran % (Auto) 1.7 H (0.0-0.4) % Neut % (Auto) 82.8 H (45-73) % Lymph % (Auto) 7.4 L (20-40) % Kid[place] % (Auto) 7.9 (2-11) % Eos % (Auto) 0.0 (0-4) % Baso % (Auto) 0.2 (0-2) % Lymph # (Auto) 0.8 L (1.2-4.9) X10*3/uL [place] # (Auto) 0.8 (0.1-1.2) X10*3/uL Eos # (Auto) 0.0 (0.0-0.4) X10*3/uL Baso # (Auto) 0.0 (0.0-0.2) X10*3/uL Abs Immat Gran (auto) 0.18 H (0.00-0.03) X10*3/uL Absolute Neuts (auto) 8.7 H (2.0-8.3) x10*3/uL Absolute Nucleated RBC 0.000 (0.0-0.012) X10*3/uL Nucleated RBC % (auto) 0.0 (0.0-0.2) /100WBC PT (9.9-13.0) SEC INR (0.9-1.1) APTT (24.1-38.0) SEC Sodium (135-145) mmol/L Potassium (3.3-5.1) mmol/L Chloride (96-108) mmol/L Carbon Dioxide (22-29) mmol/L Anion Gap (12-20) BUN (9-16) mg/dL Creatinine (0.5-1.4) mg/dL Estim Creat Clear Calc Estimated GFR Random Glucose (60-115) mg/dL Osmolality (281-305) mosm/kg Lactic Acid 2.3 H* (0.5-2.0) mmol/L Calcium (8.4-10.2) mg/dL Magnesium (1.6-2.6) mg/dL Total Bilirubin (0.0-1.0) mg/dL Direct Bilirubin (0.0-0.5) mg/dL AST (5-37) U/L ALT (0-40) U/L Alkaline Phosphatase (39-117) U/L Troponin I High Sens (<3.5-35.0) ng/L Total Protein (6.5-8.0) g/dL Albumin (3.5-5.0) g/dL Lipase (8-78) U/L Ethyl Alcohol mg/dL Influenza Type A (PCR) NEGATIVE (Negative) Influenza Type B (PCR) NEGATIVE (Negative) RSV RNA Qual (PCR) NEGATIVE (Negative) SARS-CoV-2 RNA (RT-PCR) POSITIVE A (Negative) 04/24/21 04/24/21 04/24/21 Range/Units 11:03 11:03 11:03 WBC (4.8-10.8) X10*3/uL RBC (4.60-5.80) X10*6/uL Hgb (14.0-18.0) g/dl Hct (42.0-52.0) % MCV (80.0-98.0) fL MCH (27.0-33.0) pg MCHC (31.0-36.0) g/dl RDW (11.0-16.0) % Plt Count (160-400) X10*3/uL MPV (9.4-12.4) fL Immature Gran % (Auto) (0.0-0.4) % Neut % (Auto) (45-73) % Lymph % (Auto) (20-40) % [place] % (Auto) (2-11) % Eos % (Auto) (0-4) % Baso % (Auto) (0-2) % Lymph # (Auto) (1.2-4.9) X10*3/uL [place] # (Auto) (0.1-1.2) X10*3/uL Eos # (Auto) (0.0-0.4) X10*3/uL Baso # (Auto) (0.0-0.2) X10*3/uL Abs Immat Gran (auto) (0.00-0.03) X10*3/uL Absolute Neuts (auto) (2.0-8.3) x10*3/uL Absolute Nucleated RBC (0.0-0.012) X10*3/uL Nucleated RBC % (auto) (0.0-0.2) /100WBC PT (9.9-13.0) SEC INR (0.9-1.1) APTT (24.1-38.0) SEC Sodium 128 L (135-145) mmol/L Potassium 4.3 (3.3-5.1) mmol/L Chloride 97 (96-108) mmol/L Carbon Dioxide 21 L (22-29) mmol/L Anion Gap 14 (12-20) BUN 67 H D (9-16) mg/dL Creatinine 1.85 H (0.5-1.4) mg/dL Estim Creat Clear Calc 43.5 Estimated GFR 38 Random Glucose 469 H* (60-115) mg/dL Osmolality (281-305) mosm/kg Lactic Acid (0.5-2.0) mmol/L Calcium 8.7 D (8.4-10.2) mg/dL Magnesium 1.7 (1.6-2.6) mg/dL Total Bilirubin 1.1 H (0.0-1.0) mg/dL Direct Bilirubin 0.4 (0.0-0.5) mg/dL AST 58 H (5-37) U/L ALT 64 H (0-40) U/L Alkaline Phosphatase 60 (39-117) U/L Troponin I High Sens 218.9 H* D (<3.5-35.0) ng/L Total Protein 5.7 L D (6.5-8.0) g/dL Albumin 3.7 (3.5-5.0) g/dL Lipase 82 H (8-78) U/L Ethyl Alcohol < 10 mg/dL Influenza Type A (PCR) (Negative) Influenza Type B (PCR) (Negative) RSV RNA Qual (PCR) (Negative) SARS-CoV-2 RNA (RT-PCR) (Negative) 04/24/21 04/24/21 Range/Units 11:03 11:03 WBC (4.8-10.8) X10*3/uL RBC (4.60-5.80) X10*6/uL Hgb (14.0-18.0) g/dl Hct (42.0-52.0) % MCV (80.0-98.0) fL MCH (27.0-33.0) pg MCHC (31.0-36.0) g/dl RDW (11.0-16.0) % Plt Count (160-400) X10*3/uL MPV (9.4-12.4) fL Immature Gran % (Auto) (0.0-0.4) % Neut % (Auto) (45-73) % Lymph % (Auto) (20-40) % [place] % (Auto) (2-11) % Eos % (Auto) (0-4) % Baso % (Auto) (0-2) % Lymph # (Auto) (1.2-4.9) X10*3/uL [place] # (Auto) (0.1-1.2) X10*3/uL Eos # (Auto) (0.0-0.4) X10*3/uL Baso # (Auto) (0.0-0.2) X10*3/uL Abs Immat Gran (auto) (0.00-0.03) X10*3/uL Absolute Neuts (auto) (2.0-8.3) x10*3/uL Absolute Nucleated RBC (0.0-0.012) X10*3/uL Nucleated RBC % (auto) (0.0-0.2) /100WBC PT 14.7 H (9.9-13.0) SEC INR 1.3 H (0.9-1.1) APTT 37.4 (24.1-38.0) SEC Sodium (135-145) mmol/L Potassium (3.3-5.1) mmol/L Chloride (96-108) mmol/L Carbon Dioxide (22-29) mmol/L Anion Gap (12-20) BUN (9-16) mg/dL Creatinine (0.5-1.4) mg/dL Estim Creat Clear Calc Estimated GFR Random Glucose (60-115) mg/dL Osmolality 309 H (281-305) mosm/kg Lactic Acid (0.5-2.0) mmol/L Calcium (8.4-10.2) mg/dL Magnesium (1.6-2.6) mg/dL Total Bilirubin (0.0-1.0) mg/dL Direct Bilirubin (0.0-0.5) mg/dL AST (5-37) U/L ALT (0-40) U/L Alkaline Phosphatase (39-117) U/L Troponin I High Sens (<3.5-35.0) ng/L Total Protein (6.5-8.0) g/dL Albumin (3.5-5.0) g/dL Lipase (8-78) U/L Ethyl Alcohol mg/dL Influenza Type A (PCR) (Negative) Influenza Type B (PCR) (Negative) RSV RNA Qual (PCR) (Negative) SARS-CoV-2 RNA (RT-PCR) (Negative) Critical Care Time Critical Care Time Critical Care Time: Yes Total Critical Care Time: 45 Attestation: I have personally provided critical care time exclusive of time s pent on separately billable procedures. Time includes review of lab data, radiology results, discussion with consultants/hospitalist, and monitoring for potential decompensation. Intervention performed as documented. Discharge Plan Discharge Clinical Impression: Acute blood loss anemia, Acute upper GI bleed, COVID-19, YE (acute kidney injury), Dehydration with hyponatremia Patient Disposition: Admitted As Inpatient
[2021-04-24 11:11] LABS: MANUAL DIFF FLAG NO
[2021-04-24 11:13] LABS: Basophils Percent Auto 0.2 % (0-2); Hematocrit 29.8 % (42.0-52.0); Hemoglobin 10.3 g/dl (14.0-18.0); Imm Gran Abs Auto 0.18 X10*3/uL (0.00-0.03); Imm Gran Pct Auto 1.7 % (0.0-0.4); Lymphocytes Absolute Auto 0.8 X10*3/uL (1.2-4.9); Lymphocytes Percent Auto 7.4 % (20-40); Mean Corpuscular HGB Conc 34.6 g/dl (31.0-36.0); Mean Corpuscular Hemoglobin 30.2 pg (27.0-33.0); Mean Corpuscular Volume 87.4 fL (80.0-98.0); Mean Platelet Volume 9.6 fL (9.4-12.4); Monocytes Absolute Auto 0.8 X10*3/uL (0.1-1.2); Monocytes Percent Auto 7.9 % (2-11); Neutrophils Absolute Auto 8.7 x10*3/uL (2.0-8.3); Neutrophils Percent Auto 82.8 % (45-73); Platelet Count 217 X10*3/uL (160-400); Red Blood Count 3.41 X10*6/uL (4.60-5.80); Red Cell Distribution Width 13.4 % (11.0-16.0); White Blood Count 10.5 X10*3/uL (4.8-10.8)
[2021-04-24 11:22] LABS: INTERNATIONAL NORM RATIO 1.3 (0.9-1.1); Prothrombin Time 14.7 SEC (9.9-13.0)
[2021-04-24 11:24] LABS: Partial Thromboplastin Time 37.4 SEC (24.1-38.0)
[2021-04-24 11:26] LABS: Influenza A PCR NEGATIVE (Negative); Influenza B PCR NEGATIVE (Negative); Resp Syncy Virus RNA Qual PCR NEGATIVE (Negative); SARS COV2 PCR INHOUSE POSITIVE (Negative)
[2021-04-24 11:28] LABS: Ethanol < 10 mg/dL
[2021-04-24 11:37] VITALS: TEMP 36.4
[2021-04-24] MEDS: Pantoprazole Sodium 40 MG/10 ML VIAL IVPUSH (11:40)
[2021-04-24] MEDS: 0.9 % Sodium Chloride 1,000 ML 999 ML IVCONT ×2 (11:40)
[2021-04-24 11:44] LABS: Alanine Aminotransferase 64 U/L (0-40); Albumin Level 3.7 g/dL (3.5-5.0); Alkaline Phosphatase 60 U/L (39-117); Anion Gap 14 (12-20); Aspartate Amino Transferase 58 U/L (5-37); Bilirubin Direct 0.4 mg/dL (0.0-0.5); Bilirubin Total 1.1 mg/dL (0.0-1.0); Blood Urea Nitrogen 67 mg/dL (9-16); Calcium 8.7 mg/dL (8.4-10.2); Carbon Dioxide 21 mmol/L (22-29); Chloride 97 mmol/L (96-108); Creatinine Clr Calc Pharmacy 43.5; Estimated Glomerular Filt Rate 38; Glucose Random 469 mg/dL (60-115); Lipase 82 U/L (8-78); Magnesium 1.7 mg/dL (1.6-2.6); Potassium 4.3 mmol/L (3.3-5.1); Sodium 128 mmol/L (135-145); Total Protein 5.7 g/dL (6.5-8.0); Troponin-I High Sensitivity 218.9 ng/L (<3.5-35.0)
[2021-04-24 11:44] LABS: Lactic Acid 2.3 mmol/L (0.5-2.0)
[2021-04-24 12:17] LABS: Osmolality, Serum 309 mosm/kg (281-305)
[2021-04-24 13:05] VITALS: BP 112/67; PULSE 116; RESP 33; O2SAT 100
[2021-04-24 13:09] LABS: Reflex Lactate? Lactic Acid Added
--- NOTE | 2021-04-24 13:40 | PHA.MEDREC ---
Pharmacy Consult ? Medication Reconciliation Pharmacy has completed the medication reconciliation. There are no remarkable issues for provider's attention. Lexus Bean, GeorgeD
--- NOTE | 2021-04-24 14:15 | PM.IMHP ---
History of Present Illness Date of Service: 04/24/21 Chief Complaint: Vomiting blood 60-year-old male presents with what he describes is 1 week of vomiting coffee-ground type material with occasional red blood. He was recently admitted on 04/11 for complaints of abdominal pain which she attributed to bad chicken. He was seen by GI; CT scan of abdomen showed no acute abnormalities. He was sent home on PPI/Carafate and a plan for outpatient therapy was implemented. He states he was taking the medicine however developed this nausea and vomiting of dark black material and presented to the emergency room. He also notes dark tarry stools over the last several days. On 04/20/2021 hemoglobin was noted to be 14.3; today hemoglobin 10.3 repeat hemoglobin pending. COVID swab was done and came back positive Review of Systems Review of Systems: Denies chest pain Denies shortness of breath Admits to nausea and vomiting coffee-ground material; admits to dark tarry stools PMFSH Medical History Cocaine use disorder, moderate, dependence Diabetes HTN (hypertension) MDD (major depressive disorder), recurrent episode, moderate Opioid use disorder, mild, in sustained remission Social History Household Members: None Housing: Apartment Do you presently have visiting nurse or other home services: No Alcohol intake: never Patient Tobacco Use Status: Current everyday Tobacco user Tobacco use type: Cigarette Cigarette Packs Per Day: 2 Cigarettes Per Day: 40.0 Second Hand Smoke Exposure: No Substance Use Type: Crack/Cocaine Advance Directives: No Advance Directives Information Provided: No service: Yes Current occupational status: disabled Sexual orientation: Lesbian/Navarrete/Homosexual Meds Allergies Allergy/AdvReac Type Severity Reaction Status Date / Time No Known Allergies Allergy Verified 03/18/21 06:54 Active Medications: Current Medications Acetaminophen (Acetaminophen 325 Mg Tablet) 650 mg PO Q6H PRN PRN Reason: Pain, Mild (Pain Scale 1-3) Atorvastatin Calcium (Atorvastatin Calcium 40 Mg Tablet) 40 mg PO DAILY SHARA Duloxetine HCl (Duloxetine Hcl 30 Mg Capsule.Dr) 30 mg PO DAILY SHARA Fenofibrate (Fenofibrate 54 Mg Tablet) 54 mg PO DAILY SHARA Gabapentin (Gabapentin 300 Mg Capsule) 600 mg PO TID SHARA Sodium Chloride (Ns) 1,000 mls @ 100 mls/hr IVCONT .Q10H [facility] Nicotine (Nicotine 21 Mg Patch.Td24) 21 mg TRANSDERMA DAILY [facility] Quetiapine Fumarate (Quetiapine Fumarate 100 Mg Tablet) 100 mg PO BEDTIME [facility] Sodium Chloride (0.9 % Sodium Chloride Flush 3 Ml Syringe) 3 ml IVFLUSH QSHIFT [facility] Home Medications Medication Instructions Recorded Confirmed Last Taken Type pantoprazole 40 mg tablet,delayed 1 tab PO DAILY 03/18/21 04/24/21 04/17/21 History release Physical Exam Vital Signs and Narrative: Vital Signs: Last Vital Signs Temp 97.6 F 04/24/21 11:37 Pulse 116 H 04/24/21 13:05 Resp 33 H 04/24/21 13:05 BP 112/67 04/24/21 13:05 Pulse Ox 100 04/24/21 13:05 BMI result Body Mass Index 24.7 Const: Other: Awake alert no acute distress HENMT: Other: Dried blood around mouth and nose Resp: Other: Clear to auscultation bilaterally no rales rhonchi wheezes Cardio: Other: No S4; positive S1-S2; no S3 murmurs rubs gallops GI: Other: Distended; slightly firm with hyperactive bowel sounds x4 quadrants. No rebound or guarding noted Neuro: Other: Cranial nerves 2-12 grossly intact as tested. Motor is 5/5 all extremities. Sensation intact. Cognition appropriate Extrem: Other: No edema bilaterally Results Labs CBC and Chem 7: 04/24/21 15:21 04/24/21 11:03 Labs: Laboratory Results - last 24 hr 04/24/21 04/24/21 04/24/21 10:23 11:02 11:03 MCV 87.4 MCH 30.2 MCHC 34.6 RDW 13.4 Plt Count 217 MPV 9.6 Immature Gran % (Auto) 1.7 H Neut % (Auto) 82.8 H Lymph % (Auto) 7.4 L [place] % (Auto) 7.9 Eos % (Auto) 0.0 Baso % (Auto) 0.2 Lymph # (Auto) 0.8 L [place] # (Auto) 0.8 Eos # (Auto) 0.0 Baso # (Auto) 0.0 Abs Immat Gran (auto) 0.18 H Absolute Neuts (auto) 8.7 H Absolute Nucleated RBC 0.000 Nucleated RBC % (auto) 0.0 PT INR APTT Anion Gap Estim Creat Clear Calc Estimated GFR Random Glucose Osmolality Lactic Acid 2.3 H* Calcium Magnesium Total Bilirubin Direct Bilirubin AST ALT Alkaline Phosphatase Troponin I High Sens Total Protein Albumin Lipase Ethyl Alcohol Influenza Type A (PCR) NEGATIVE Influenza Type B (PCR) NEGATIVE RSV RNA Qual (PCR) NEGATIVE SARS-CoV-2 RNA (RT-PCR) POSITIVE A 04/24/21 04/24/21 04/24/21 11:03 11:03 11:03 MCV MCH MCHC RDW Plt Count MPV Immature Gran % (Auto) Neut % (Auto) Lymph % (Auto) [place] % (Auto) Eos % (Auto) Baso % (Auto) Lymph # (Auto) [place] # (Auto) Eos # (Auto) Baso # (Auto) Abs Immat Gran (auto) Absolute Neuts (auto) Absolute Nucleated RBC Nucleated RBC % (auto) PT INR APTT Anion Gap 14 Estim Creat Clear Calc 43.5 Estimated GFR 38 Random Glucose 469 H* Osmolality Lactic Acid Calcium 8.7 D Magnesium 1.7 Total Bilirubin 1.1 H Direct Bilirubin 0.4 AST 58 H ALT 64 H Alkaline Phosphatase 60 Troponin I High Sens 218.9 H* D Total Protein 5.7 L D Albumin 3.7 Lipase 82 H Ethyl Alcohol < 10 Influenza Type A (PCR) Influenza Type B (PCR) RSV RNA Qual (PCR) SARS-CoV-2 RNA (RT-PCR) 04/24/21 04/24/21 11:03 11:03 MCV MCH MCHC RDW Plt Count MPV Immature Gran % (Auto) Neut % (Auto) Lymph % (Auto) [place] % (Auto) Eos % (Auto) Baso % (Auto) Lymph # (Auto) [place] # (Auto) Eos # (Auto) Baso # (Auto) Abs Immat Gran (auto) Absolute Neuts (auto) Absolute Nucleated RBC Nucleated RBC % (auto) PT 14.7 H INR 1.3 H APTT 37.4 Anion Gap Estim Creat Clear Calc Estimated GFR Random Glucose Osmolality 309 H Lactic Acid Calcium Magnesium Total Bilirubin Direct Bilirubin AST ALT Alkaline Phosphatase Troponin I High Sens Total Protein Albumin Lipase Ethyl Alcohol Influenza Type A (PCR) Influenza Type B (PCR) RSV RNA Qual (PCR) SARS-CoV-2 RNA (RT-PCR) Imaging Radiologist's Impressions: Impressions Chest X-Ray 04/24/21 10:45 IMPRESSION: No acute cardiopulmonary process. Assessment and Plan (1) Acute upper GI bleed: Status: Acute (2) Acute blood loss anemia: Status: Acute (3) COVID-19: Status: Acute (4) Abdominal pain, epigastric: Status: Acute 60-year-old male presents with coffee-ground emesis mixed with red blood worsening over the last week. Recently admitted 04/11 for complaints of abdominal pain however workup failed to demonstrate an acute cause. In the emergency room today he had several episodes of coffee-ground emesis along with a hemoglobin that has dropped 4 point since last admit. He also is COVID positive 1.UGIB Discussed with GI; will continue IV Protonix and add Sulcrafate. Zofran for nausea. EGD if persistant hematemesis. Serial CBC's 2. Covid-19 Supplemental O2..titrate as tolerated IV dexamethasne 6mg Daily 3. DMII Hold Metformin. Cover with Sliding scale Adjust as indicated 4. HTN Hold ACEI/BB until stable from bleeding standpoint Full Code Venodyne Bots Quality Stroke Does the patient have a stroke diagnosis?: No VTE Prior VTE?: No VTE Risk Level:: Medical - moderate - high VTE Device Contraindication: N/A - Device Ordered VTE Drug Contraindication: Treatment Not Indicated
[2021-04-24 15:32] LABS: Hematocrit 27.5 % (42.0-52.0); Hemoglobin 9.8 g/dl (14.0-18.0)
[2021-04-24 15:45] LABS: ~Lactic Acid-LAB USE ONLY 1.5 mmol/L (0.5-2.0)
[2021-04-24] MEDS: 0.9 % Sodium Chloride 1,000 ML 100 ML IVCONT ×2 (16:12→22:18)
[2021-04-24 16:17] LABS: Troponin-I High Sensitivity 141.8 ng/L (<3.5-35.0)
[2021-04-24 17:55] LABS: OBS Int Ctl Valid YES; OBS1 POSITIVE (NEGATIVE)
--- NOTE | 2021-04-24 18:18 | MHC.CM.PN ---
Addendum entered by Abby Alcazar 04/24/21 18:38: D/C plan unknown at this time pending recovery and BHN evaluation. Referral to [facility] to follow. Pt may need STR, but will be difficult to place with Covid and no vaccinations. Original Note: CM met with admitted patient, Covid positive, with bed assignment pending. Pt with active Upper GIB. No IMM necessary. No HCP on file. Education provided, pt declines. Pt recently admitted to [facility] 04/11-04/13 with intractable N&V.Pt [place] not received any Covid vaccinations. Pt has HX of substance abuse. Active cocaine/crack use. PCP is Danielle Ramirez CNP. Pt lives alone and is active with [facility]. 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 Pt is wheelchair bound. Has electric chair. Pt states he is depressed and has SI thoughts. Pt will need BHN consult when medically cleared. Pt has been hospitalized in past for depression. Pt states he doesn't feel safe at home because he cannot care for himself. Pt was in the ([employer] Has no Veterans services and is not vet connected per pt. D/C plan dependent on pt recovery. Pt will need transportation home. Normally uses W/C van. CM will follow for d/c needs.
[2021-04-24] MEDS: dexAMETHasone sod phosphate 4 MG/ML VIAL 6 MG IVPUSH (18:39)
[2021-04-24 20:00] VITALS: BP 113/76; PULSE 104; RESP 18; TEMP 36.6; O2SAT 99
[2021-04-24] MEDS: QUEtiapine Fumarate 100 MG TABLET PO (22:10)
[2021-04-24] MEDS: Sucralfate Oral Suspension 1 GM/10 ML ORAL.SUSP PO (22:10)
[2021-04-24] MEDS: Gabapentin 300 MG CAPSULE 600 MG PO (22:10)
[2021-04-24 23:13] VITALS: BP 90/61; PULSE 98; RESP 20; TEMP 36; O2SAT 97
[2021-04-24 23:24] LABS: Glucose, Whole Blood 259 mg/dL (60-115)
[2021-04-24 23:39] LABS: Glucose, Whole Blood 252 mg/dL (60-115)
[2021-04-25] VITALS (7 sets, daily range): BP systolic 108–164; BP diastolic 63–89; PULSE 67–97; RESP 18–20; TEMP 35.6–37.3; O2SAT 93–99
[2021-04-25 00:39] LABS: MANUAL DIFF FLAG NO
[2021-04-25 00:41] LABS: Hematocrit 27.3 % (42.0-52.0); Hemoglobin 8.9 g/dl (14.0-18.0); Imm Gran Abs Auto 0.04 X10*3/uL (0.00-0.03); Imm Gran Pct Auto 0.7 % (0.0-0.4); Lymphocytes Absolute Auto 0.8 X10*3/uL (1.2-4.9); Mean Corpuscular HGB Conc 32.6 g/dl (31.0-36.0); Mean Corpuscular Hemoglobin 30.2 pg (27.0-33.0); Mean Corpuscular Volume 92.5 fL (80.0-98.0); Monocytes Absolute Auto 0.2 X10*3/uL (0.1-1.2); Monocytes Percent Auto 3.6 % (2-11); Neutrophils Absolute Auto 5.1 x10*3/uL (2.0-8.3); Neutrophils Percent Auto 82.7 % (45-73); Platelet Count 144 X10*3/uL (160-400); Red Blood Count 2.95 X10*6/uL (4.60-5.80); Red Cell Distribution Width 13.8 % (11.0-16.0); White Blood Count 6.2 X10*3/uL (4.8-10.8)
[2021-04-25 00:54] LABS: Lactic Acid 1.3 mmol/L (0.5-2.0)
[2021-04-25 00:58] LABS: Anion Gap 13 (12-20); Blood Urea Nitrogen 40 mg/dL (9-16); Calcium 7.9 mg/dL (8.4-10.2); Carbon Dioxide 12 mmol/L (22-29); Chloride 113 mmol/L (96-108); Creatinine Clr Calc Pharmacy 94.7; Estimated Glomerular Filt Rate > 60; Glucose Random 277 mg/dL (60-115); Sodium 134 mmol/L (135-145)
[2021-04-25 04:18] LABS: Appearance Urine CLEAR; Color Urine STRAW; Glucose Urine UA >=1000 MG/DL (NEG); Leukocyte Esterase Urine NEG (NEG); Nitrite Urine NEG (NEG); Urine Blood NEG (NEG); Urine Ketones 15 MG/DL (NEG); Urine Protein NEG (NEG-TRACE)
[2021-04-25 04:24] LABS: RBC Urine 0 /HPF (0); Squamous Epithelial Cell Urine TRACE /LPF; WBC Urine 0-2 /HPF (0-4)
[2021-04-25 04:34] LABS: Amphetamine Screen Urine Not Detected (Not Detect); Barbiturates, Urine Not Detected (Not Detect); Benzodiazepines Screen Urine Not Detected (Not Detect); Cannabinoid Screen Urine Not Detected (Not Detect); Cocaine Screen Urine Not Detected (Not Detect); Fentanyl, urine Not Detected (Not Detect); Opiate Screen Urine Not Detected (Not Detect); Phencyclidine Screen Urine Not Detected (Not Detect)
[2021-04-25 04:36] LABS: Osmolality Urine 763 mosm/kg (373-1093)
[2021-04-25] MEDS: Pantoprazole Sodium 40 MG/10 ML VIAL IVPUSH ×2 (05:40→16:27)
[2021-04-25] MEDS: ondansetron HCL 4 MG/2 ML VIAL IVPUSH ×2 (05:44→20:06)
--- NOTE | 2021-04-25 07:01 | P.CNGI_ITS ---
History of Present Illness Data of Consult Service Date: 04/24/21 Requesting physician: Duane Verduzco Primary Care Provider: Unknown Physician HPI Reason for consult: nausea, vomiting, covid pos 60-year-old male w hx of HTN, DM, HLP, substance abuse who I am asked to see for assessment of nausea and vomiting. He had c/o 1 wk of nausea and vomiting with coffee ground material with dark stools. He has some epigastric pain, which is mild. Appetite has been poor, does endorse some SOB but denies coughing, sputum or wheezing. denies alcohol, nsaid or cocaine use this time round. he had similar presentation earlier this month but had also been using cocaine. This was controlled with carafate and PPI which he maintains he has been compliant with. Imaging at the time did show thickened esophagus at tdistal end with hepatic steatosis. Labs with low HGB around 10 g/dl. Covid test pos. u tox neg for cocaine this time around. Review of Systems Review of Systems: Constitutional : +Weight loss, No Fever, No Chills ENT/Mouth : No sore throat, No Rhinorrhea Eyes: No Swelling, No Redness Cardiovascular : No Chest Pain, + SOB, No Edema Respiratory : No Cough, No Sputum, No Wheezing Gastrointestinal : see HPI Genitourinary : NO Dysuria, No Urinary Frequency, No Hematuria, No Urgency Musculoskeletal : No joint pain, No Myalgias, No Joint Swelling Skin : No Skin Lesions, No rash Neuro : No Weakness, No Numbness, No Dizziness, No Headache Psych : No Anxiety/Panic, No Depression Heme/Lymph: No Bruising, No Lymphadenopathy Endocrine : No Polyuria, No Polydipsia All other systems reviewed and are negative. [facility] Past Medical History Medical History Cocaine use disorder, moderate, dependence Diabetes HTN (hypertension) MDD (major depressive disorder), recurrent episode, moderate Opioid use disorder, mild, in sustained remission Social History Social History Household Members: None Housing: Apartment Do you presently have visiting nurse or other home services: No Alcohol intake: never Patient Tobacco Use Status: Current everyday Tobacco user Tobacco use type: Cigarette Cigarette Packs Per Day: 2 Cigarettes Per Day: 40.0 Second Hand Smoke Exposure: No Substance Use Type: Crack/Cocaine service: Yes Current occupational status: disabled Sexual orientation: Lesbian/Navarrete/Homosexual Meds Allergies Allergy/AdvReac Type Severity Reaction Status Date / Time No Known Allergies Allergy Verified 03/18/21 06:54 Active Medications: Current Medications Acetaminophen (Acetaminophen 325 Mg Tablet) 650 mg PO Q6H PRN PRN Reason: Pain, Mild (Pain Scale 1-3) Atorvastatin Calcium (Atorvastatin Calcium 40 Mg Tablet) 40 mg PO DAILY [facility] Dexamethasone Sodium Phosphate (Dexamethasone Sod Phosphate 4 Mg/Ml Vial) 6 mg IVPUSH DAILY [facility] Last Admin: 04/24/21 18:39 Dose: 6 mg Documented by: Duloxetine HCl (Duloxetine Hcl 30 Mg Capsule.Dr) 30 mg PO DAILY [facility] Fenofibrate (Fenofibrate 54 Mg Tablet) 54 mg PO DAILY [facility] Gabapentin (Gabapentin 300 Mg Capsule) 600 mg PO TID [facility] Last Admin: 04/24/21 22:10 Dose: 600 mg Documented by: Sodium Chloride (Ns) 1,000 mls @ 100 mls/hr IVCONT .Q10H [facility] Last Admin: 04/24/21 22:18 Dose: 100 mls/hr Documented by: Nicotine (Nicotine 21 Mg Patch.Td24) 21 mg TRANSDERMA DAILY [facility] Ondansetron HCl (Ondansetron Hcl 4 Mg/2 Ml Vial) 4 mg IVPUSH Q8H PRN PRN Reason: Nausea and Vomiting Last Admin: 04/25/21 05:44 Dose: 4 mg Documented by: Pantoprazole Sodium (Pantoprazole Sodium 40 Mg/10 Ml Vial) 40 mg IVPUSH BID@0630,1630 [facility] Last Admin: 04/25/21 05:40 Dose: 40 mg Documented by: Quetiapine Fumarate (Quetiapine Fumarate 100 Mg Tablet) 100 mg PO BEDTIME [facility] Last Admin: 04/24/21 22:10 Dose: 100 mg Documented by: Sodium Chloride (0.9 % Sodium Chloride Flush 3 Ml Syringe) 3 ml IVFLUSH QSHIFT [facility] Last Admin: 04/25/21 03:24 Dose: Not Given Documented by: Sucralfate (Sucralfate Oral Suspension 1 Gm/10 Ml Oral.Susp) 1 gm PO QIDACHS [facility] Last Admin: 04/24/21 22:10 Dose: 1 gm Documented by: Home Medications Medication Instructions Recorded Confirmed Last Taken Type pantoprazole 40 mg tablet,delayed 1 tab PO DAILY 03/18/21 04/24/21 04/17/21 History release Physical Exam Vital Signs: Vital Signs: Last Vital Signs Temp 97.1 F 04/25/21 03:18 Pulse 97 04/25/21 03:18 Resp 20 04/25/21 03:18 BP 108/71 04/25/21 03:18 Pulse Ox 97 04/25/21 03:18 BMI result Body Mass Index 24.7 Const: Other: Awake alert no acute distress Orientation/consciousness: patient oriented x3 HENMT: Other: Dried blood around mouth and nose Resp: Other: Clear to auscultation bilaterally no rales rhonchi wheezes Cardio: Other: No S4; positive S1-S2; no S3 murmurs rubs gallops GI: Other: Distended; slightly firm with hyperactive bowel sounds x4 quadrants. No rebound or guarding noted Inspection: No abdominal wall ecchymosis Neuro: Other: Cranial nerves 2-12 grossly intact as tested. Motor is 5/5 all extremities. Sensation intact. Cognition appropriate General: patient orien lilibeth x3 Extrem: Other: No edema bilaterally Psych: Appearance: grossly normal Results Labs CBC & Chem 7: 04/25/21 00:33 04/25/21 00:33 Labs: Short CBC 04/24/21 04/24/21 04/25/21 Range/Units 11:03 15:21 00:33 WBC 10.5 6.2 (4.8-10.8) X10*3/uL Hgb 10.3 L D 9.8 L 8.9 L (14.0-18.0) g/dl Hct 29.8 L D 27.5 L 27.3 L (42.0-52.0) % Plt Count 217 144 L D (160-400) X10*3/uL BMP 04/24/21 04/25/21 11:03 00:33 Sodium 128 L 134 L Potassium 4.3 4.0 Chloride 97 113 H Carbon Dioxide 21 L 12 L BUN 67 H D 40 H Creatinine 1.85 H 0.85 Calcium 8.7 D 7.9 L D Liver Function 04/24/21 Range/Units 11:03 Total Bilirubin 1.1 H (0.0-1.0) mg/dL Direct Bilirubin 0.4 (0.0-0.5) mg/dL AST 58 H (5-37) U/L ALT 64 H (0-40) U/L Alkaline Phosphatase 60 (39-117) U/L Albumin 3.7 (3.5-5.0) g/dL Urine 04/24/21 Range/Units 03:30 Urine Color STRAW Urine Appearance CLEAR Urine pH 6.0 (5.0-8.0) Ur Specific [place] 1.010 (1.005-1.025) Urine Protein NEG (NEG-TRACE) MG/DL Urine Glucose (UA) >=1000 H (NEG) MG/DL Assessment and Plan (1) Acute blood loss anemia: Status: Acute (2) COVID-19: Status: Acute (3) Troponin level elevated: Status: Acute 1/ NAusea and vomiting, now covid positive. Covid can itself cause gastroenteritis, and nausea, or vomiting, suspect this may have triggered off this current episode. 2/ Trop pos but denies chest pain, ECG with sinus tach, occ nausea, vomiting can be cardiac symptom, could also be due to covid which is prothrombotic condition or cocaine use Plan: 1/Cont with IV PPI e.g pantoprazole 40 mg bid with carafate 1 gm QID, can add scheduled zofran 2/ cont to monitor lytes and replace, make sure trop downtrends 3/ Hold off EGD due to covid positivity, cocaine hx and raised trop, if worsening HGB or non resolving sx then can reassess need for this. He certainly shoudl get an o/p EGD in near future. Procedures Date of Service Date of Service: 04/24/21
--- NOTE | 2021-04-25 07:09 | PM.EVENT ---
Event Note Date of Service: 04/25/21 Event Note: received call from nurse that pt has developed AMS. he is minimally arousable, received gabapentin at bedtime. on my exam, pt is somnolent but arousable but falls asleep right away. this is acute change in mental status. he was also diaphoretic. All vitals within normal, afebrile and no hypoxia. Head CT obtained showed no significant acute abnormality , no significant lab abnormality. pt became more alert and arousable, later through the night AMS likely 2/2 gabapentin as his AMS resolved.
[2021-04-25 08:30] LABS: MANUAL DIFF FLAG NO
[2021-04-25 08:34] LABS: Hematocrit 30.5 % (42.0-52.0); Hemoglobin 10.4 g/dl (14.0-18.0); Imm Gran Abs Auto 0.08 X10*3/uL (0.00-0.03); Imm Gran Pct Auto 1.2 % (0.0-0.4); Lymphocytes Absolute Auto 1.2 X10*3/uL (1.2-4.9); Lymphocytes Percent Auto 18.8 % (20-40); Mean Corpuscular HGB Conc 34.1 g/dl (31.0-36.0); Mean Corpuscular Hemoglobin 30.2 pg (27.0-33.0); Mean Corpuscular Volume 88.7 fL (80.0-98.0); Mean Platelet Volume 10.6 fL (9.4-12.4); Monocytes Absolute Auto 0.3 X10*3/uL (0.1-1.2); Monocytes Percent Auto 4.7 % (2-11); Neutrophils Absolute Auto 4.8 x10*3/uL (2.0-8.3); Neutrophils Percent Auto 75.3 % (45-73); Platelet Count 193 X10*3/uL (160-400); Red Blood Count 3.44 X10*6/uL (4.60-5.80); White Blood Count 6.4 X10*3/uL (4.8-10.8)
[2021-04-25 08:55] LABS: Alanine Aminotransferase 81 U/L (0-40); Albumin Level 3.7 g/dL (3.5-5.0); Alkaline Phosphatase 54 U/L (39-117); Anion Gap 11 (12-20); Aspartate Amino Transferase 71 U/L (5-37); Bilirubin Total 0.6 mg/dL (0.0-1.0); Blood Urea Nitrogen 30 mg/dL (9-16); Calcium 8.3 mg/dL (8.4-10.2); Carbon Dioxide 19 mmol/L (22-29); Chloride 111 mmol/L (96-108); Creatinine Clr Calc Pharmacy 88.4; Estimated Glomerular Filt Rate > 60; Glucose Fasting 223 mg/dL (60-99); Potassium 4.5 mmol/L (3.3-5.1); Sodium 136 mmol/L (135-145); Total Protein 6.1 g/dL (6.5-8.0)
[2021-04-25] MEDS: DULoxetine HCl 30 MG CAPSULE.DR PO (08:56)
[2021-04-25] MEDS: Fenofibrate 54 MG TABLET PO (08:56)
[2021-04-25] MEDS: Sucralfate Oral Suspension 1 GM/10 ML ORAL.SUSP PO ×4 (08:57→20:02)
[2021-04-25] MEDS: Atorvastatin Calcium 40 MG TABLET PO (08:57)
[2021-04-25] MEDS: Gabapentin 300 MG CAPSULE 600 MG PO ×3 (08:57→20:02)
[2021-04-25] MEDS: dexAMETHasone sod phosphate 4 MG/ML VIAL 6 MG IVPUSH (08:58)
[2021-04-25] MEDS: 0.9 % Sodium Chloride Flush 3 ML SYRINGE IVFLUSH ×3 (08:58→20:02)
[2021-04-25 09:07] LABS: HIV AB/AG Nonreactive (Nonreactive); HIV Num 1 0.07 S/CO (0.00-0.99)
--- NOTE | 2021-04-25 09:19 | P.CDIC_ITS ---
CDI Concurrent Query Documentation Clarification: PHYSICIAN'S DOCUMENTATION REQUEST Date of Query: 04/25/21918 Patient Name: Matthew Vizcaino Admit Date: 04/24/21 Dear Doctor, A review of the medical record indicates additional documentation may be needed. Please review below and update the documentation accordingly. Risk Factors/Clinical Indicators/Treatments ED: Clinical impression - Acute kidney injury. Cr: 1.85 Bun 67 Gfr 38 >60 Please clarify which of the following most accurately represents the patient's renal status: Consistency and clarity of documentation within the medical record: * Acute kidney injury POA, treating, rule out, resolved etc. * Other (please specify) * Unable to determine Criteria for YE* 1. Increase in serum creatinine by ? 0.3 mg/dL Level Description GFR (?26.5 micromol/L) within 48 hours, or G1 Normal or High > 90 2. Increase in serum creatinine to ?1.5 times baseline, G2 Mildly decreased 60 ? 89 which is known or presumed to have occurred within 7 days, or G3a Mildly to moderately decreased 45 ? 59 3. Urine volume <0.5 mL/kg/hour for six hours G3b Moderately to severely decreased 30 - 44 G4 Severely decreased 15 ? 29 G5 Kidney failure < 15 *Source: Kidney Disease: Improving Global Outcomes (KDIGO) 2012 Use of terms such as suspected, likely, concern for, or probable (associated with a specific diagnosis that is being evaluated, monitored, or treated as if it exists) are acceptable and can be coded in the inpatient setting, when documented at the time of discharge. Thank you, Alison Cornejo [facility], CDIS Extension: [phone] Please use your independent medical judgment in providing your response. THIS QUERY IS PART OF THE PERMANENT MEDICAL RECORD Provider Response: Other Other Diagnosis: Acute kidney injury secondary to GI bleed
[2021-04-25] MEDS: 0.9 % Sodium Chloride 1,000 ML 100 ML IVCONT ×2 (10:16→21:57)
--- NOTE | 2021-04-25 15:04 | P.PNIM_ITS ---
Subjective Subjective Date of Service: 04/25/21 Interval History: Feels better this a.m.. Slightly nausea but hungry. Asking for Ensure Review of Systems Denies nausea vomiting diarrhea Denies chest pain Denies shortness of breath Physical Exam Vital Signs: Vital Signs: Last Vital Signs Temp 99.1 F 04/25/21 11:19 Pulse 95 04/25/21 11:19 Resp 20 04/25/21 11:19 BP 128/73 04/25/21 11:19 Pulse Ox 98 04/25/21 11:19 BMI result Body Mass Index 24.7 Const: Other: Awake alert no acute distress HENMT: Other: Dried blood around mouth and nose Resp: Other: Clear to auscultation bilaterally no rales rhonchi wheezes Cardio: Other: No S4; positive S1-S2; no S3 murmurs rubs gallops GI: Other: Distended; slightly firm with hyperactive bowel sounds x4 quadrants. No rebound or guarding noted Neuro: Other: Cranial nerves 2-12 grossly intact as tested. Motor is 5/5 all extremities. Sensation intact. Cognition appropriate Extrem: Other: No edema bilaterally Objective Data Active Medications Acetaminophen (Acetaminophen 325 Mg Tablet) 650 mg PO Q6H PRN PRN Reason: Pain, Mild (Pain Scale 1-3) Atorvastatin Calcium (Atorvastatin Calcium 40 Mg Tablet) 40 mg PO DAILY [facility] Last Admin: 04/25/21 08:57 Dose: 40 mg Documented by: IGNACIO Dexamethasone Sodium Phosphate (Dexamethasone Sod Phosphate 4 Mg/Ml Vial) 6 mg IVPUSH DAILY [facility] Last Admin: 04/25/21 08:58 Dose: 6 mg Documented by: IGNACIO Duloxetine HCl (Duloxetine Hcl 30 Mg Capsule.Dr) 30 mg PO DAILY [facility] Last Admin: 04/25/21 08:56 Dose: 30 mg Documented by: IGNACIO Fenofibrate (Fenofibrate 54 Mg Tablet) 54 mg PO DAILY [facility] Last Admin: 04/25/21 08:56 Dose: 54 mg Documented by: IGNACIO Gabapentin (Gabapentin 300 Mg Capsule) 600 mg PO TID [facility] Last Admin: 04/25/21 14:45 Dose: 600 mg Documented by: IGNACIO Sodium Chloride (Ns) 1,000 mls @ 100 mls/hr IVCONT .Q10H [facility] Last Admin: 04/25/21 10:16 Dose: 100 mls/hr Documented by: IGNACIO Insulin Human Lispro (Insulin Lispro 100 Unit/Ml 3 Ml Vial) 0 unit SUBCUT QIDACHS [facility]; Protocol Metformin HCl (Metformin Hcl 1,000 Mg Tablet) 1,000 mg PO BIDWM [facility] Nicotine (Nicotine 21 Mg Patch.Td24) 21 mg TRANSDERMA DAILY [facility] Last Admin: 04/25/21 09:13 Dose: Not Given Documented by: IGNACIO Non-Admin Reason: Patient Refused Ondansetron HCl (Ondansetron Hcl 4 Mg/2 Ml Vial) 4 mg IVPUSH Q8H PRN PRN Reason: Nausea and Vomiting Last Admin: 04/25/21 05:44 Dose: 4 mg Documented by: BECKY Pantoprazole Sodium (Pantoprazole Sodium 40 Mg/10 Ml Vial) 40 mg IVPUSH BID@0630,1630 [facility] Last Admin: 04/25/21 05:40 Dose: 40 mg Documented by: BECKY Quetiapine Fumarate (Quetiapine Fumarate 100 Mg Tablet) 100 mg PO BEDTIME [facility] Last Admin: 04/24/21 22:10 Dose: 100 mg Documented by: BECKY Sodium Chloride (0.9 % Sodium Chloride Flush 3 Ml Syringe) 3 ml IVFLUSH QSHIFT [facility] Last Admin: 04/25/21 14:46 Dose: 3 ml Documented by: IGNACIO Sucralfate (Sucralfate Oral Suspension 1 Gm/10 Ml Oral.Susp) 1 gm PO QIDACHS [facility] Last Admin: 04/25/21 12:06 Dose: 1 gm Documented by: IGNACIO Labs CBC & Chem 7: 04/25/21 08:16 04/25/21 08:16 Labs: Laboratory Results - last 24 hr 04/24/21 04/24/21 04/24/21 03:30 15:20 15:20 MCV MCH MCHC RDW Plt Count MPV Immature Gran % (Auto) Neut % (Auto) Lymph % (Auto) Mcdowell % (Auto) Eos % (Auto) Baso % (Auto) Lymph # (Auto) Mcdowell # (Auto) Eos # (Auto) Baso # (Auto) Abs Immat Gran (auto) Absolute Neuts (auto) Absolute Nucleated RBC Nucleated RBC % (auto) Anion Gap Estim Creat Clear Calc Estimated GFR POC Glucose Random Glucose Fasting Glucose Lactic Acid Lactic Acid F/U @ 2Hr 1.5 Calcium Total Bilirubin AST ALT Alkaline Phosphatase Troponin I High Sens 141.8 H* Total Protein Albumin Urine Color STRAW Urine Appearance CLEAR Urine pH 6.0 Ur Specific [place] 1.010 Urine Protein NEG Urine Glucose (UA) >=1000 H Urine Ketones 15 Urine Blood NEG Urine Nitrite NEG Ur Leukocyte Esterase NEG Urine RBC 0 Urine WBC 0-2 Ur Squamous Epith Cells TRACE Urine Bacteria NONE Urine Osmolality Ur Random Sodium Stool Occult Blood Urine Opiates Screen Urine Fentanyl Screen Ur Barbiturates Screen Ur Phencyclidine Scrn Ur Amphetamines Screen U Benzodiazepines Scrn Urine Cocaine Screen U Marijuana (THC) Screen HIV 1&2 Ab/P24 Ag 4thGn Blood Type Antibody Screen 04/24/21 04/24/21 04/24/21 15:20 17:46 23:19 MCV MCH MCHC RDW Plt Count MPV Immature Gran % (Auto) Neut % (Auto) Lymph % (Auto) Mcdowell % (Auto) Eos % (Auto) Baso % (Auto) Lymph # (Auto) Mcdowell # (Auto) Eos # (Auto) Baso # (Auto) Abs Immat Gran (auto) Absolute Neuts (auto) Absolute Nucleated RBC Nucleated RBC % (auto) Anion Gap Estim Creat Clear Calc Estimated GFR POC Glucose 259 H Random Glucose Fasting Glucose Lactic Acid Lactic Acid F/U @ 2Hr Calcium Total Bilirubin AST ALT Alkaline Phosphatase Troponin I High Sens Total Protein Albumin Urine Color Urine Appearance Urine pH Ur Specific [place] Urine Protein Urine Glucose (UA) Urine Ketones Urine Blood Urine Nitrite Ur Leukocyte Esterase Urine RBC Urine WBC Ur Squamous Epith Cells Urine Bacteria Urine Osmolality Ur Random Sodium Stool Occult Blood POSITIVE Urine Opiates Screen Urine Fentanyl Screen Ur Barbiturates Screen Ur Phencyclidine Scrn Ur Amphetamines Screen U Benzodiazepines Scrn Urine Cocaine Screen U Marijuana (THC) Screen HIV 1&2 Ab/P24 Ag 4thGn Blood Type A Positive Antibody Screen NEGATIVE 04/24/21 04/25/21 04/25/21 23:34 00:33 00:33 MCV 92.5 D MCH 30.2 MCHC 32.6 RDW 13.8 Plt Count 144 L D MPV 10.0 Immature Gran % (Auto) 0.7 H Neut % (Auto) 82.7 H Lymph % (Auto) 13.0 L Mcdowell % (Auto) 3.6 Eos % (Auto) 0.0 Baso % (Auto) 0.0 Lymph # (Auto) 0.8 L Mcdowell # (Auto) 0.2 Eos # (Auto) 0.0 Baso # (Auto) 0.0 Abs Immat Gran (auto) 0.04 H Absolute Neuts (auto) 5.1 Absolute Nucleated RBC 0.000 Nucleated RBC % (auto) 0.0 Anion Gap 13 Estim Creat Clear Calc 94.7 Estimated GFR > 60 POC Glucose 252 H Random Glucose 277 H D Fasting Glucose Lactic Acid Lactic Acid F/U @ 2Hr Calcium 7.9 L D Total Bilirubin AST ALT Alkaline Phosphatase Troponin I High Sens Total Protein Albumin Urine Color Urine Appearance Urine pH Ur Specific [place] Urine Protein Urine Glucose (UA) Urine Ketones Urine Blood Urine Nitrite Ur Leukocyte Esterase Urine RBC Urine WBC Ur Squamous Epith Cells Urine Bacteria Urine Osmolality Ur Random Sodium Stool Occult Blood Urine Opiates Screen Urine Fentanyl Screen Ur Barbiturates Screen Ur Phencyclidine Scrn Ur Amphetamines Screen U Benzodiazepines Scrn Urine Cocaine Screen U Marijuana (THC) Screen HIV 1&2 Ab/P24 Ag 4thGn Blood Type Antibody Screen 04/25/21 04/25/21 04/25/21 00:33 03:30 03:30 MCV MCH MCHC RDW Plt Count MPV Immature Gran % (Auto) Neut % (Auto) Lymph % (Auto) Mcdowell % (Auto) Eos % (Auto) Baso % (Auto) Lymph # (Auto) Mcdowell # (Auto) Eos # (Auto) Baso # (Auto) Abs Immat Gran (auto) Absolute Neuts (auto) Absolute Nucleated RBC Nucleated RBC % (auto) Anion Gap Estim Creat Clear Calc Estimated GFR POC Glucose Random Glucose Fasting Glucose Lactic Acid 1.3 Lactic Acid F/U @ 2Hr Calcium Total Bilirubin AST ALT Alkaline Phosphatase Troponin I High Sens Total Protein Albumin Urine Color Urine Appearance Urine pH Ur Specific [place] Urine Protein Urine Glucose (UA) Urine Ketones Urine Blood Urine Nitrite Ur Leukocyte Esterase Urine RBC Urine WBC Ur Squamous Epith Cells Urine Bacteria Urine Osmolality 763 Ur Random Sodium Stool Occult Blood Urine Opiates Screen Not Detected Urine Fentanyl Screen Not Detected Ur Barbiturates Screen Not Detected Ur Phencyclidine Scrn Not Detected Ur Amphetamines Screen Not Detected U Benzodiazepines Scrn Not Detected Urine Cocaine Screen Not Detected U Marijuana (THC) Screen Not Detected HIV 1&2 Ab/P24 Ag 4thGn Blood Type Antibody Screen 04/25/21 04/25/21 04/25/21 03:30 08:16 08:16 MCV 88.7 MCH 30.2 MCHC 34.1 RDW 14.0 Plt Count 193 D MPV 10.6 Immature Gran % (Auto) 1.2 H Neut % (Auto) 75.3 H Lymph % (Auto) 18.8 L Mcdowell % (Auto) 4.7 Eos % (Auto) 0.0 Baso % (Auto) 0.0 Lymph # (Auto) 1.2 Mcdowell # (Auto) 0.3 Eos # (Auto) 0.0 Baso # (Auto) 0.0 Abs Immat Gran (auto) 0.08 H Absolute Neuts (auto) 4.8 Absolute Nucleated RBC 0.000 Nucleated RBC % (auto) 0.0 Anion Gap 11 L Estim Creat Clear Calc 88.4 Estimated GFR > 60 POC Glucose Random Glucose Fasting Glucose 223 H Lactic Acid Lactic Acid F/U @ 2Hr Calcium 8.3 L Total Bilirubin 0.6 AST 71 H ALT 81 H Alkaline Phosphatase 54 Troponin I High Sens Total Protein 6.1 L Albumin 3.7 Urine Color Urine Appearance Urine pH Ur Specific [place] Urine Protein Urine Glucose (UA) Urine Ketones Urine Blood Urine Nitrite Ur Leukocyte Esterase Urine RBC Urine WBC Ur Squamous Epith Cells Urine Bacteria Urine Osmolality Ur Random Sodium 28.0 Stool Occult Blood Urine Opiates Screen Urine Fentanyl Screen Ur Barbiturates Screen Ur Phencyclidine Scrn Ur Amphetamines Screen U Benzodiazepines Scrn Urine Cocaine Screen U Marijuana (THC) Screen HIV 1&2 Ab/P24 Ag 4thGn Blood Type Antibody Screen 04/25/21 08:16 MCV MCH MCHC RDW Plt Count MPV Immature Gran % (Auto) Neut % (Auto) Lymph % (Auto) Mcdowell % (Auto) Eos % (Auto) Baso % (Auto) Lymph # (Auto) Mcdowell # (Auto) Eos # (Auto) Baso # (Auto) Abs Immat Gran (auto) Absolute Neuts (auto) Absolute Nucleated RBC Nucleated RBC % (auto) Anion Gap Estim Creat Clear Calc Estimated GFR POC Glucose Random Glucose Fasting Glucose Lactic Acid Lactic Acid F/U @ 2Hr Calcium Total Bilirubin AST ALT Alkaline Phosphatase Troponin I High Sens Total Protein Albumin Urine Color Urine Appearance Urine pH Ur Specific [place] Urine Protein Urine Glucose (UA) Urine Ketones Urine Blood Urine Nitrite Ur Leukocyte Esterase Urine RBC Urine WBC Ur Squamous Epith Cells Urine Bacteria Urine Osmolality Ur Random Sodium Stool Occult Blood Urine Opiates Screen Urine Fentanyl Screen Ur Barbiturates Screen Ur Phencyclidine Scrn Ur Amphetamines Screen U Benzodiazepines Scrn Urine Cocaine Screen U Marijuana (THC) Screen HIV 1&2 Ab/P24 Ag 4thGn Nonreactive Blood Type Antibody Screen Microbiology Microbiology Results: Microbiology 04/24/21 11:02 Blood Culture - Preliminary Blood - Venous No growth after 24 hours. 04/24/21 11:02 Blood Culture - Preliminary Blood - Venous No growth after 24 hours. Assessment and Plan (1) Acute blood loss anemia: Status: Acute (2) Acute upper GI bleed: Status: Acute (3) COVID-19: Status: Acute Assessment and Plan: 60-year-old male presents with coffee-ground emesis mixed with red blood worsening over the last week. Recently admitted 04/11 for complaints of abdominal pain however workup failed to demonstrate an acute cause. In the emergency room today he had several episodes of coffee-ground emesis along with a hemoglobin that has dropped 4 point since last admit. He also is COVID positive 1.UGIB Discussed with GI; will continue IV Protonix and add Sulcrafate. Zofran for nausea. EGD if persistant hematemesis; none further overnight Serial CBC's 2. Covid-19 Supplemental O2..titrate as tolerated IV dexamethasne 6mg Daily 3. DMII Restart metformin at this time at 1000 mg b.i.d. Sliding-scale regular insulin to cover 4. HTN Hold ACEI/BB until stable from bleeding standpoint Full Code Venodyne Bots Quality Stroke Does the patient have a stroke diagnosis?: No VTE Prior VTE?: No VTE Risk Level:: Medical - moderate - high VTE Device Contraindication: N/A - Device Ordered VTE Drug Contraindication: Treatment Not Indicated
[2021-04-25 16:04] LABS: Glucose, Whole Blood 318 mg/dL (60-115)
[2021-04-25] MEDS: metFORMIN HCl 1,000 MG TABLET 1000 MG PO (16:27)
[2021-04-25] MEDS: Insulin Lispro 100 UNIT/ML 3 ML VIAL SUBCUT ×2 (16:28→21:28)
[2021-04-25] MEDS: QUEtiapine Fumarate 100 MG TABLET PO (20:02)
[2021-04-25 20:26] LABS: Glucose, Whole Blood 244 mg/dL (60-115)
[2021-04-26] VITALS (12 sets, daily range): BP systolic 103–134; BP diastolic 58–78; PULSE 72–88; RESP 16–18; TEMP 36.6–37.4; O2SAT 98–99
[2021-04-26] MEDS: Pantoprazole Sodium 40 MG/10 ML VIAL IVPUSH ×2 (06:11→16:36)
[2021-04-26] MEDS: 0.9 % Sodium Chloride 1,000 ML 100 ML IVCONT (06:18)
[2021-04-26 08:17] LABS: Glucose, Whole Blood 142 mg/dL (60-115)
[2021-04-26] MEDS: DULoxetine HCl 30 MG CAPSULE.DR PO (08:24)
[2021-04-26] MEDS: Sucralfate Oral Suspension 1 GM/10 ML ORAL.SUSP PO ×4 (08:24→19:49)
[2021-04-26] MEDS: Fenofibrate 54 MG TABLET PO (08:24)
[2021-04-26] MEDS: metFORMIN HCl 1,000 MG TABLET 1000 MG PO (08:24)
[2021-04-26] MEDS: Atorvastatin Calcium 40 MG TABLET PO (08:24)
[2021-04-26] MEDS: Gabapentin 300 MG CAPSULE 600 MG PO ×3 (08:24→19:49)
[2021-04-26] MEDS: dexAMETHasone sod phosphate 4 MG/ML VIAL 6 MG IVPUSH (08:25)
[2021-04-26 08:38] LABS: MANUAL DIFF FLAG NO
[2021-04-26 08:39] LABS: Basophils Percent Auto 0.2 % (0-2); Eosinophils Percent Auto 0.2 % (0-4); Imm Gran Abs Auto 0.05 X10*3/uL (0.00-0.03); Lymphocytes Absolute Auto 1.4 X10*3/uL (1.2-4.9); Lymphocytes Percent Auto 26.2 % (20-40); Mean Corpuscular HGB Conc 33.3 g/dl (31.0-36.0); Mean Corpuscular Hemoglobin 29.2 pg (27.0-33.0); Mean Corpuscular Volume 87.5 fL (80.0-98.0); Mean Platelet Volume 9.8 fL (9.4-12.4); Monocytes Absolute Auto 0.3 X10*3/uL (0.1-1.2); Monocytes Percent Auto 5.7 % (2-11); Neutrophils Absolute Auto 3.5 x10*3/uL (2.0-8.3); Neutrophils Percent Auto 66.7 % (45-73); Platelet Count 170 X10*3/uL (160-400); White Blood Count 5.2 X10*3/uL (4.8-10.8)
[2021-04-26 09:04] LABS: Alanine Aminotransferase 88 U/L (0-40); Albumin Level 3.2 g/dL (3.5-5.0); Alkaline Phosphatase 45 U/L (39-117); Anion Gap 9 (12-20); Aspartate Amino Transferase 61 U/L (5-37); Bilirubin Total 0.4 mg/dL (0.0-1.0); Blood Urea Nitrogen 15 mg/dL (9-16); Calcium 7.8 mg/dL (8.4-10.2); Carbon Dioxide 24 mmol/L (22-29); Chloride 108 mmol/L (96-108); Creatinine Clr Calc Pharmacy 107.3; Estimated Glomerular Filt Rate > 60; Glucose Fasting 142 mg/dL (60-99); Potassium 3.5 mmol/L (3.3-5.1); Sodium 137 mmol/L (135-145); Total Protein 4.8 g/dL (6.5-8.0)
[2021-04-26 09:52] LABS: Estimated Average Glucose 192 mg/dL; Hemoglobin A1c % 8.3 %
[2021-04-26 09:56] LABS: C Reactive Protein 0.34 mg/dL (< or = 0.50)
[2021-04-26 10:03] LABS: Ferritin 502 ng/mL (20-250)
[2021-04-26 10:08] LABS: Lactate Dehydrogenase 155 U/L (118-273)
[2021-04-26 10:09] LABS: Procalcitonin 0.19 ng/mL
[2021-04-26 12:15] LABS: Glucose, Whole Blood 193 mg/dL (60-115)
[2021-04-26] MEDS: Insulin Lispro 100 UNIT/ML 3 ML VIAL SUBCUT ×3 (12:22→20:02)
--- NOTE | 2021-04-26 14:17 | P.PNIM_ITS ---
Subjective Subjective Date of Service: 04/26/21 Interval History: Hb dropped to 7 Endorses lightheadedness No nausea/vomiting No abd pain No melena/hematochezia No cough/dyspnea Review of Systems Review of Systems: Yes all other systems are reviewed and are negative Physical Exam Vital Signs: Vital Signs: Last Vital Signs Temp 98.4 F 04/26/21 13:28 Pulse 88 04/26/21 13:28 Resp 16 04/26/21 13:28 BP 121/61 04/26/21 13:28 Pulse Ox 99 04/26/21 12:00 BMI result Body Mass Index 24.7 Gen: in no acute distress HEENT: sclera anicteric, moist mucus membranes Neck: supple Lungs: clear to auscultation bilaterally Heart: regular rate and rhythm, no murmurs Abd: soft, non-tender, non-distended Ext: no edema Skin: warm/well-perfused Neuro: alert and oriented x3, no focal findings Psych: appropriate affect Objective Data Active Medications Acetaminophen (Acetaminophen 325 Mg Tablet) 650 mg PO Q6H PRN PRN Reason: Pain, Mild (Pain Scale 1-3) Atorvastatin Calcium (Atorvastatin Calcium 40 Mg Tablet) 40 mg PO DAILY [facility] Last Admin: 04/26/21 08:24 Dose: 40 mg Documented by: MABEL Dexamethasone Sodium Phosphate (Dexamethasone Sod Phosphate 4 Mg/Ml Vial) 6 mg IVPUSH DAILY [facility] Last Admin: 04/26/21 08:25 Dose: 6 mg Documented by: MABEL Duloxetine HCl (Duloxetine Hcl 30 Mg Capsule.) 30 mg PO DAILY [facility] Last Admin: 04/26/21 08:24 Dose: 30 mg Documented by: MABEL Fenofibrate (Fenofibrate 54 Mg Tablet) 54 mg PO DAILY [facility] Last Admin: 04/26/21 08:24 Dose: 54 mg Documented by: MABEL Gabapentin (Gabapentin 300 Mg Capsule) 600 mg PO TID [facility] Last Admin: 04/26/21 08:24 Dose: 600 mg Documented by: MABEL Sodium Chloride (Ns) 1,000 mls @ 100 mls/hr IVCONT .Q10H [facility] Last Admin: 04/26/21 06:18 Dose: 100 mls/hr Documented by: CODIE Insulin Human Lispro (Insulin Lispro 100 Unit/Ml 3 Ml Vial) 0 unit SUBCUT QIDA [facility]; Protocol Last Admin: 04/26/21 12:22 Dose: 2 unit Documented by: MABEL Metformin HCl (Metformin Hcl 1,000 Mg Tablet) 1,000 mg PO BIDWM [facility] Last Admin: 04/26/21 08:24 Dose: 1,000 mg Documented by: MABEL Nicotine (Nicotine 21 Mg Patch.Td24) 21 mg TRANSDERMA DAILY [facility] Last Admin: 04/26/21 08:33 Dose: Not Given Documented by: MABEL Non-Admin Reason: Patient Refused Ondansetron HCl (Ondansetron Hcl 4 Mg/2 Ml Vial) 4 mg IVPUSH Q8H PRN PRN Reason: Nausea and Vomiting Last Admin: 04/25/21 20:06 Dose: 4 mg Documented by: CODIE Pantoprazole Sodium (Pantoprazole Sodium 40 Mg/10 Ml Vial) 40 mg IVPUSH BID@0630,1630 [facility] Last Admin: 04/26/21 06:11 Dose: 40 mg Documented by: CDOIE Quetiapine Fumarate (Quetiapine Fumarate 100 Mg Tablet) 100 mg PO BEDTIME [facility] Last Admin: 04/25/21 20:02 Dose: 100 mg Documented by: CODIE Sodium Chloride (0.9 % Sodium Chloride Flush 3 Ml Syringe) 3 ml IVFLUSH QSHIFT [facility] Last Admin: 04/26/21 07:25 Dose: Not Given Documented by: MABEL Non-Admin Reason: IV Running Sucralfate (Sucralfate Oral Suspension 1 Gm/10 Ml Oral.Susp) 1 gm PO QIDACHS [facility] Last Admin: 04/26/21 12:22 Dose: 1 gm Documented by: MABEL Labs CBC & Chem 7: 04/26/21 07:47 04/26/21 07:47 Labs: Laboratory Results - last 24 hr 04/24/21 04/25/21 04/25/21 15:20 15:14 20:04 MCV MCH MCHC RDW Plt Count MPV Immature Gran % (Auto) Neut % (Auto) Lymph % (Auto) [place] % (Auto) Eos % (Auto) Baso % (Auto) Lymph # (Auto) [place] # (Auto) Eos # (Auto) Baso # (Auto) Abs Immat Gran (auto) Absolute Neuts (auto) Absolute Nucleated RBC Nucleated RBC % (auto) Anion Gap Estim Creat Clear Calc Estimated GFR POC Glucose 318 H 244 H Fasting Glucose Estimat Average Glucose Hemoglobin A1c % Calcium Ferritin Total Bilirubin AST ALT Alkaline Phosphatase Lactate Dehydrogenase C-Reactive Protein Total Protein Albumin Procalcitonin Blood Type A Positive Antibody Screen NEGATIVE Crossmatch See Detail 04/26/21 04/26/21 04/26/21 07:47 07:47 07:47 MCV 87.5 MCH 29.2 MCHC 33.3 RDW 14.0 Plt Count 170 MPV 9.8 Immature Gran % (Auto) 1.0 H Neut % (Auto) 66.7 Lymph % (Auto) 26.2 [place] % (Auto) 5.7 Eos % (Auto) 0.2 Baso % (Auto) 0.2 Lymph # (Auto) 1.4 [place] # (Auto) 0.3 Eos # (Auto) 0.0 Baso # (Auto) 0.0 Abs Immat Gran (auto) 0.05 H Absolute Neuts (auto) 3.5 Absolute Nucleated RBC 0.000 Nucleated RBC % (auto) 0.0 Anion Gap 9 L Estim Creat Clear Calc 107.3 Estimated GFR > 60 POC Glucose Fasting Glucose 142 H D Estimat Average Glucose 192 Hemoglobin A1c % 8.3 Calcium 7.8 L D Ferritin 502 H Total Bilirubin 0.4 AST 61 H ALT 88 H Alkaline Phosphatase 45 Lactate Dehydrogenase 155 C-Reactive Protein 0.34 Total Protein 4.8 L D Albumin 3.2 L Procalcitonin Blood Type Antibody Screen Crossmatch 04/26/21 04/26/21 04/26/21 07:47 08:13 11:58 MCV MCH MCHC RDW Plt Count MPV Immature Gran % (Auto) Neut % (Auto) Lymph % (Auto) [place] % (Auto) Eos % (Auto) Baso % (Auto) Lymph # (Auto) [place] # (Auto) Eos # (Auto) Baso # (Auto) Abs Immat Gran (auto) Absolute Neuts (auto) Absolute Nucleated RBC Nucleated RBC % (auto) Anion Gap Estim Creat Clear Calc Estimated GFR POC Glucose 142 H 193 H Fasting Glucose Estimat Average Glucose Hemoglobin A1c % Calcium Ferritin Total Bilirubin AST ALT Alkaline Phosphatase Lactate Dehydrogenase C-Reactive Protein Total Protein Albumin Procalcitonin 0.19 Blood Type Antibody Screen Crossmatch Microbiology Microbiology Results: Microbiology 04/24/21 11:02 Blood Culture - Preliminary Blood - Venous No growth after 48 hours. 04/24/21 11:02 Blood Culture - Preliminary Blood - Venous No growth after 48 hours. Assessment and Plan (1) Acute blood loss anemia: Status: Acute (2) Acute upper GI bleed: Status: Acute (3) COVID-19: Status: Acute Assessment and Plan: hospital d#3 60yo M with DM2 + HTN presenting with coffee-ground emesis/hematemesis, acute blood loss anemia, Covid-19 positive # acute blood loss anemia - consented for blood after discussion of risks/benefits; will transfuse 2u pRBCs then recheck CBC # UGIB - on IV PPI + sucralfate, outpt EGD in 1-2 wk per GI unless develops skyler b leeding again or unable to maintain blood counts. continue liquid diet for now. # Covid-19 infection - unvaccinated but mild infection without any hypoxia- will d/c dexamethasone and continue isolation precautions; trend inflammatory markers # DM2, A1c 8.3 - correction-dose lispro # transaminasemia - could be fatty liver or Covid-19, monitor LFTs, also screen for HBV/HCV # HTN - holding lisinopril, resume metoprolol succinate # HLD - continue atorvastatin, fenofibrate # neuropathy - continue gabapentin # mood disorder - continue quetiapine, duloxetine # tobacco abuse - continue NRT # VTE ppx - SCDs Quality Stroke Does the patient have a stroke diagnosis?: No VTE Prior VTE?: No VTE Risk Level:: Medical - moderate - high VTE Device Contraindication: N/A - Device Ordered VTE Drug Contraindication: Treatment Not Indicated
[2021-04-26 16:35] LABS: Glucose, Whole Blood 281 mg/dL (60-115)
[2021-04-26] MEDS: 0.9 % Sodium Chloride Flush 3 ML SYRINGE IVFLUSH (19:49)
[2021-04-26] MEDS: QUEtiapine Fumarate 100 MG TABLET PO (19:49)
[2021-04-26 19:59] LABS: Glucose, Whole Blood 241 mg/dL (60-115)
[2021-04-27 03:14] VITALS: BP 123/67; PULSE 74; RESP 18; TEMP 36.5; O2SAT 98
[2021-04-27] MEDS: 0.9 % Sodium Chloride 1,000 ML 100 ML IVCONT (03:14)
[2021-04-27] MEDS: Pantoprazole Sodium 40 MG/10 ML VIAL IVPUSH (06:09)
[2021-04-27 07:18] LABS: MANUAL DIFF FLAG NO
[2021-04-27 07:25] LABS: Basophils Percent Auto 0.1 % (0-2); Eosinophils Percent Auto 0.3 % (0-4); Hematocrit 24.5 % (42.0-52.0); Hemoglobin 8.5 g/dl (14.0-18.0); Imm Gran Abs Auto 0.14 X10*3/uL (0.00-0.03); Imm Gran Pct Auto 2.1 % (0.0-0.4); Lymphocytes Absolute Auto 1.2 X10*3/uL (1.2-4.9); Lymphocytes Percent Auto 17.6 % (20-40); Mean Corpuscular HGB Conc 34.7 g/dl (31.0-36.0); Mean Corpuscular Volume 86.6 fL (80.0-98.0); Mean Platelet Volume 9.6 fL (9.4-12.4); Monocytes Absolute Auto 0.4 X10*3/uL (0.1-1.2); Monocytes Percent Auto 5.6 % (2-11); NRBC Pct Auto 0.3 /100WBC (0.0-0.2); Neutrophils Absolute Auto 5.1 x10*3/uL (2.0-8.3); Neutrophils Percent Auto 74.3 % (45-73); Platelet Count 142 X10*3/uL (160-400); Red Blood Count 2.83 X10*6/uL (4.60-5.80); Red Cell Distribution Width 14.1 % (11.0-16.0); White Blood Count 6.8 X10*3/uL (4.8-10.8)
[2021-04-27 07:36] LABS: D Dimer High Sensitivity 176 NG/ML
[2021-04-27 07:43] LABS: Alanine Aminotransferase 84 U/L (0-40); Albumin Level 3.2 g/dL (3.5-5.0); Alkaline Phosphatase 49 U/L (39-117); Anion Gap 8 (12-20); Aspartate Amino Transferase 42 U/L (5-37); Bilirubin Direct 0.5 mg/dL (0.0-0.5); Bilirubin Total 1.3 mg/dL (0.0-1.0); Blood Urea Nitrogen 10 mg/dL (9-16); Carbon Dioxide 25 mmol/L (22-29); Chloride 105 mmol/L (96-108); Creatinine Clr Calc Pharmacy 123.8; Estimated Glomerular Filt Rate > 60; Glucose Fasting 126 mg/dL (60-99); Potassium 3.4 mmol/L (3.3-5.1); Sodium 135 mmol/L (135-145); Total Protein 4.7 g/dL (6.5-8.0)
[2021-04-27 08:00] VITALS: BP 129/71; PULSE 70; RESP 19; TEMP 36.4; O2SAT 97
[2021-04-27] MEDS: Gabapentin 300 MG CAPSULE 600 MG PO ×3 (08:12→20:51)
[2021-04-27] MEDS: Atorvastatin Calcium 40 MG TABLET PO (08:12)
[2021-04-27] MEDS: Sucralfate Oral Suspension 1 GM/10 ML ORAL.SUSP PO ×4 (08:12→20:52)
[2021-04-27] MEDS: Metoprolol Succinate ER 25 MG TAB.ER.24H PO (08:13)
[2021-04-27] MEDS: Fenofibrate 54 MG TABLET PO (08:13)
[2021-04-27] MEDS: DULoxetine HCl 30 MG CAPSULE.DR PO (08:14)
[2021-04-27] MEDS: 0.9 % Sodium Chloride Flush 3 ML SYRINGE IVFLUSH ×3 (08:14→20:52)
[2021-04-27 08:33] LABS: Glucose, Whole Blood 117 mg/dL (60-115)
--- NOTE | 2021-04-27 10:03 | HO.PM.IMPN ---
Subjective Subjective Date of Service: 04/27/21 Interval History: Tolerating diet. No nausea. No GI bleeding. No cough or dyspnea. No fever. Review of Systems Review of Systems: Yes all other systems are reviewed and are negative Physical Exam Vital Signs: Vital Signs: Last Vital Signs Temp 97.5 F 04/27/21 08:00 Pulse 70 04/27/21 08:00 Resp 19 04/27/21 08:00 BP 129/71 04/27/21 08:00 Pulse Ox 97 04/27/21 08:00 BMI result Body Mass Index 24.7 Gen: in no acute distress HEENT: sclera anicteric, moist mucus membranes Neck: supple Lungs: clear to auscultation bilaterally Heart: regular rate and rhythm, no murmurs Abd: soft, non-tender, non-distended Ext: no edema Skin: warm/well-perfused Neuro: alert and oriented x3, no focal findings Psych: appropriate affect Objective Data Active Medications Acetaminophen (Acetaminophen 325 Mg Tablet) 650 mg PO Q6H PRN PRN Reason: Pain, Mild (Pain Scale 1-3) Atorvastatin Calcium (Atorvastatin Calcium 40 Mg Tablet) 40 mg PO DAILY [facility] Last Admin: 04/27/21 08:12 Dose: 40 mg Documented by: RHIANNON Duloxetine HCl (Duloxetine Hcl 30 Mg Capsule.) 30 mg PO DAILY [facility] Last Admin: 04/27/21 08:14 Dose: 30 mg Documented by: RHIANNON Fenofibrate (Fenofibrate 54 Mg Tablet) 54 mg PO DAILY [facility] Last Admin: 04/27/21 08:13 Dose: 54 mg Documented by: RHIANNON Gabapentin (Gabapentin 300 Mg Capsule) 600 mg PO TID [facility] Last Admin: 04/27/21 08:12 Dose: 600 mg Documented by: RHIANNON Sodium Chloride (Ns) 1,000 mls @ 100 mls/hr IVCONT .Q10H [facility] Last Admin: 04/27/21 03:14 Dose: 100 mls/hr Documented by: IRIS Insulin Human Lispro (Insulin Lispro 100 Unit/Ml 3 Ml Vial) 0 unit SUBCUT QIDACHS [facility]; Protocol Last Admin: 04/27/21 08:39 Dose: Not Given Documented by: RHIANNON Non-Admin Reason: No Insulin Coverage Metoprolol Succinate (Metoprolol Succinate Er 25 Mg Tab.Er.24h) 25 mg PO DAILY [facility]; Protocol Last Admin: 04/27/21 08:13 Dose: 25 mg Documented by: RHIANNON Nicotine (Nicotine 21 Mg Patch.Td24) 21 mg TRANSDERMA DAILY [facility] Last Admin: 04/27/21 08:13 Dose: Not Given Documented by: RHIANNON Non-Admin Reason: Patient Refused Ondansetron HCl (Ondansetron Hcl 4 Mg/2 Ml Vial) 4 mg IVPUSH Q8H PRN PRN Reason: Nausea and Vomiting Last Admin: 04/25/21 20:06 Dose: 4 mg Documented by: CODIE Pantoprazole Sodium (Pantoprazole Sodium 40 Mg/10 Ml Vial) 40 mg IVPUSH BID@0630,1630 [facility] Last Admin: 04/27/21 06:09 Dose: 40 mg Documented by: IRIS Quetiapine Fumarate (Quetiapine Fumarate 100 Mg Tablet) 100 mg PO BEDTIME [facility] Last Admin: 04/26/21 19:49 Dose: 100 mg Documented by: IRIS Sodium Chloride (0.9 % Sodium Chloride Flush 3 Ml Syringe) 3 ml IVFLUSH QSHIFT [facility] Last Admin: 04/27/21 08:14 Dose: 3 ml Documented by: RHIANNON Sucralfate (Sucralfate Oral Suspension 1 Gm/10 Ml Oral.Susp) 1 gm PO QIDACHS [facility] Last Admin: 04/27/21 08:12 Dose: 1 gm Documented by: RHIANNON Labs CBC & Chem 7: 04/27/21 06:59 04/27/21 06:59 Labs: Laboratory Results - last 24 hr 04/24/21 04/26/21 04/26/21 15:20 07:47 07:47 MCV MCH MCHC RDW Plt Count MPV Immature Gran % (Auto) Neut % (Auto) Lymph % (Auto) [place] % (Auto) Eos % (Auto) Baso % (Auto) Lymph # (Auto) [place] # (Auto) Eos # (Auto) Baso # (Auto) Abs Immat Gran (auto) Absolute Neuts (auto) Absolute Nucleated RBC Nucleated RBC % (auto) D-Dimer High Sensitivty Anion Gap Estim Creat Clear Calc Estimated GFR POC Glucose Random Glucose Fasting Glucose Calcium Ferritin 502 H Total Bilirubin Direct Bilirubin AST ALT Alkaline Phosphatase Lactate Dehydrogenase 155 Total Protein Albumin Procalcitonin 0.19 Blood Type A Positive Antibody Screen NEGATIVE Crossmatch See Detail 04/26/21 04/26/21 04/26/21 11:58 16:18 19:53 MCV MCH MCHC RDW Plt Count MPV Immature Gran % (Auto) Neut % (Auto) Lymph % (Auto) [place] % (Auto) Eos % (Auto) Baso % (Auto) Lymph # (Auto) [place] # (Auto) Eos # (Auto) Baso # (Auto) Abs Immat Gran (auto) Absolute Neuts (auto) Absolute Nucleated RBC Nucleated RBC % (auto) D-Dimer High Sensitivty Anion Gap Estim Creat Clear Calc Estimated GFR POC Glucose 193 H 281 H 241 H Random Glucose Fasting Glucose Calcium Ferritin Total Bilirubin Direct Bilirubin AST ALT Alkaline Phosphatase Lactate Dehydrogenase Total Protein Albumin Procalcitonin Blood Type Antibody Screen Crossmatch 04/27/21 04/27/21 04/27/21 06:59 06:59 06:59 MCV 86.6 MCH 30.0 MCHC 34.7 RDW 14.1 Plt Count 142 L MPV 9.6 Immature Gran % (Auto) 2.1 H Neut % (Auto) 74.3 H Lymph % (Auto) 17.6 L [place] % (Auto) 5.6 Eos % (Auto) 0.3 Baso % (Auto) 0.1 Lymph # (Auto) 1.2 [place] # (Auto) 0.4 Eos # (Auto) 0.0 Baso # (Auto) 0.0 Abs Immat Gran (auto) 0.14 H Absolute Neuts (auto) 5.1 Absolute Nucleated RBC 0.020 H Nucleated RBC % (auto) 0.3 H D-Dimer High Sensitivty 176 Anion Gap 8 L Estim Creat Clear Calc 123.8 Estimated GFR > 60 POC Glucose Random Glucose TNP Fasting Glucose 126 H Calcium 8.0 L Ferritin Total Bilirubin 1.3 H Direct Bilirubin 0.5 AST 42 H ALT 84 H Alkaline Phosphatase 49 Lactate Dehydrogenase Total Protein 4.7 L Albumin 3.2 L Procalcitonin Blood Type Antibody Screen Crossmatch 04/27/21 07:18 MCV MCH MCHC RDW Plt Count MPV Immature Gran % (Auto) Neut % (Auto) Lymph % (Auto) [place] % (Auto) Eos % (Auto) Baso % (Auto) Lymph # (Auto) [place] # (Auto) Eos # (Auto) Baso # (Auto) Abs Immat Gran (auto) Absolute Neuts (auto) Absolute Nucleated RBC Nucleated RBC % (auto) D-Dimer High Sensitivty Anion Gap Estim Creat Clear Calc Estimated GFR POC Glucose 117 H Random Glucose Fasting Glucose Calcium Ferritin Total Bilirubin Direct Bilirubin AST ALT Alkaline Phosphatase Lactate Dehydrogenase Total Protein Albumin Procalcitonin Blood Type Antibody Screen Crossmatch Microbiology Microbiology Results: Microbiology 04/24/21 11:02 Blood Culture - Preliminary Blood - Venous No growth after 48 hours. 04/24/21 11:02 Blood Culture - Preliminary Blood - Venous No growth after 48 hours. Assessment and Plan (1) Acute blood loss anemia: Status: Acute (2) Acute upper GI bleed: Status: Acute (3) COVID-19: Status: Acute Assessment and Plan: hospital d#4 60yo M with DM2 + HTN presenting with coffee-ground emesis/hematemesis, acute blood loss anemia, Covid-19 positive # acute blood loss anemia - transfused 2u pRBCs 04/26/21 with improved H+H; recheck in am # UGIB - on IV PPI + sucralfate; outpt EGD in 1-2 wk per GI unless develops skyler bleeding again or unable to maintain blood counts. advance diet. # Covid-19 infection - unvaccinated but mild infection without any hypoxia- d/c'ed dexamethasone, continue isolation precautions; trend inflammatory markers # DM2, A1c 8.3 - correction-dose lispro # transaminasemia - could be fatty liver or Covid-19, monitor LFTs, HBV/HCV pending # HTN - holding lisinopril, resumed metoprolol succinate # HLD - continue atorvastatin, fenofibrate # neuropathy - continue gabapentin # mood disorder - continue quetiapine, duloxetine # tobacco abuse - continue NRT # VTE ppx - SCDs; no heparin given GIB Quality Stroke Does the patient have a stroke diagnosis?: No VTE Prior VTE?: No VTE Risk Level:: Medical - moderate - high VTE Device Contraindication: N/A - Device Ordered VTE Drug Contraindication: Treatment Not Indicated
[2021-04-27 11:47] LABS: Glucose, Whole Blood 143 mg/dL (60-115)
[2021-04-27 11:48] VITALS: BP 142/75; PULSE 70; RESP 19; TEMP 36.6; O2SAT 98
[2021-04-27 13:16] LABS: Magnesium 1.5 mg/dL (1.6-2.6)
[2021-04-27] MEDS: Potassium Chloride/H20 10 MEQ/100 ML PIGGYBACK 100 MEQ IV ×2 (13:28→15:01)
[2021-04-27] MEDS: Potassium Chloride ER 20 MEQ TAB.ER.PRT PO (13:28)
[2021-04-27 15:21] VITALS: BP 156/79; PULSE 78; RESP 18; TEMP 37.1; O2SAT 97
[2021-04-27 16:37] LABS: Glucose, Whole Blood 174 mg/dL (60-115)
[2021-04-27] MEDS: Insulin Lispro 100 UNIT/ML 3 ML VIAL SUBCUT ×2 (17:44→20:51)
[2021-04-27 19:27] VITALS: BP 163/84; PULSE 81; RESP 18; TEMP 36.9; O2SAT 99
[2021-04-27 20:43] LABS: Glucose, Whole Blood 220 mg/dL (60-115)
[2021-04-27] MEDS: QUEtiapine Fumarate 100 MG TABLET PO (20:51)
[2021-04-27 23:57] VITALS: BP 133/73; PULSE 84; RESP 18; TEMP 37.2; O2SAT 96
[2021-04-28 03:50] VITALS: BP 131/75; PULSE 80; RESP 20; TEMP 36.8; O2SAT 96
[2021-04-28] MEDS: Omeprazole 20 MG CAPSULE.DR PO ×2 (06:18→17:28)
[2021-04-28 06:52] LABS: Hematocrit 27.4 % (42.0-52.0); Hemoglobin 9.6 g/dl (14.0-18.0)
[2021-04-28 07:04] LABS: C Reactive Protein 0.62 mg/dL (< or = 0.50)
[2021-04-28 07:36] VITALS: BP 125/68; PULSE 81; RESP 20; TEMP 37.1; O2SAT 95
[2021-04-28 07:50] LABS: Glucose, Whole Blood 145 mg/dL (60-115)
[2021-04-28 08:12] VITALS: BP 125/68; PULSE 81
[2021-04-28] MEDS: Sucralfate Oral Suspension 1 GM/10 ML ORAL.SUSP PO ×4 (08:12→21:02)
[2021-04-28] MEDS: Metoprolol Succinate ER 25 MG TAB.ER.24H PO (08:12)
[2021-04-28] MEDS: Gabapentin 300 MG CAPSULE 600 MG PO ×3 (08:12→21:01)
[2021-04-28] MEDS: DULoxetine HCl 30 MG CAPSULE.DR PO (08:12)
[2021-04-28] MEDS: Atorvastatin Calcium 40 MG TABLET PO (08:12)
[2021-04-28] MEDS: 0.9 % Sodium Chloride Flush 3 ML SYRINGE IVFLUSH ×2 (08:13→17:28)
[2021-04-28] MEDS: Fenofibrate 54 MG TABLET PO (08:14)
[2021-04-28 11:18] VITALS: BP 142/79; PULSE 86; RESP 20; TEMP 37.7; O2SAT 96
[2021-04-28 11:18] LABS: Glucose, Whole Blood 178 mg/dL (60-115)
[2021-04-28] MEDS: Insulin Lispro 100 UNIT/ML 3 ML VIAL SUBCUT ×3 (11:41→21:07)
--- NOTE | 2021-04-28 13:56 | MHC.CARE ---
CARE Team met with patient in room 469-1 to discuss depressive symptoms and possible suicidal ideation. Patient was lying in bed on his side, alert and oriented, engaged easily. He maintained intense eye contact, speech was difficult to understand as he mumbled and spoke quickly. Patient acknowledged making a suicidal statement, ?I do get thoughts at times,? said he does not feel that way currently, is future oriented. Patient was able to explain that his anxiety is sometimes so bad that his legs shake, has pain then becomes scared and depressed leading him toward suicidal thoughts. He said he would always reach out for help and has done so in the past, has the number for [place]?s Crisis line and calls 911. Patient identified his brother who lives in [place] as a good support, they talk on the phone as well as his ex- whom he remains close to, lives in [place] but keeps in contact. Patient reported feeling as though he needs more help at home, would like Meals on Wheels and a Home Health Aid/GENERAL OPERATOR, advised him that those are services that begin with him speaking directly to his PCP. Patient said that he does not have a therapist, denied being set with outpatient mental health providers when discharging from in March?records indicate that patient had appointments scheduled through [facility]. He seems confused and likely would need additional support to bridge those relationships. CARE Team will call [facility] and check on patient status CARE Team will look into referring patient to CSP (Community Support Program) which can help patient secure community resources and assist in establishing connections with mental health providers. RN, ZORAN and updated
[2021-04-28 14:02] LABS: Magnesium 1.6 mg/dL (1.6-2.6); Potassium 3.6 mmol/L (3.3-5.1)
--- NOTE | 2021-04-28 14:11 | HO.PM.IMPN ---
Subjective Subjective Date of Service: 04/28/21 Interval History: some nausea no GI bleeding no further NSVT Review of Systems Review of Systems: Yes all other systems are reviewed and are negative Physical Exam Vital Signs: Vital Signs: Last Vital Signs Temp 99.9 F 04/28/21 11:18 Pulse 86 04/28/21 11:18 Resp 20 04/28/21 11:18 BP 142/79 H 04/28/21 11:18 Pulse Ox 96 04/28/21 11:18 BMI result Body Mass Index 24.7 Gen: in no acute distress HEENT: sclera anicteric, moist mucus membranes Neck: supple Lungs: clear to auscultation bilaterally Heart: regular rate and rhythm, no murmurs Abd: soft, non-tender, non-distended Ext: no edema Skin: warm/well-perfused Neuro: alert and oriented x3, no focal findings Psych: appropriate affect Objective Data Active Medications Acetaminophen (Acetaminophen 325 Mg Tablet) 650 mg PO Q6H PRN PRN Reason: Pain, Mild (Pain Scale 1-3) Atorvastatin Calcium (Atorvastatin Calcium 40 Mg Tablet) 40 mg PO DAILY [facility] Last Admin: 04/28/21 08:12 Dose: 40 mg Documented by: VANCE Duloxetine HCl (Duloxetine Hcl 30 Mg Capsule.Dr) 30 mg PO DAILY [facility] Last Admin: 04/28/21 08:12 Dose: 30 mg Documented by: VANCE Fenofibrate (Fenofibrate 54 Mg Tablet) 54 mg PO DAILY [facility] Last Admin: 04/28/21 08:14 Dose: 54 mg Documented by: VANCE Gabapentin (Gabapentin 300 Mg Capsule) 600 mg PO TID [facility] Last Admin: 04/28/21 08:12 Dose: 600 mg Documented by: VANCE Insulin Human Lispro (Insulin Lispro 100 Unit/Ml 3 Ml Vial) 0 unit SUBCUT QIDACHS [facility]; Protocol Last Admin: 04/28/21 11:41 Dose: 2 unit Documented by: VANCE Metoprolol Succinate (Metoprolol Succinate Er 25 Mg Tab.Er.24h) 25 mg PO DAILY [facility]; Protocol Last Admin: 04/28/21 08:12 Dose: 25 mg Documented by: VANCE Nicotine (Nicotine 21 Mg Patch.Td24) 21 mg TRANSDERMA DAILY [facility] Last Admin: 04/28/21 08:22 Dose: Not Given Documented by: VANCE Non-Admin Reason: Patient Refused Omeprazole (Omeprazole 20 Mg Arjun.) 20 mg PO BID@0630,1630 [facility] Last Admin: 04/28/21 06:18 Dose: 20 mg Documented by: CARMEN Ondansetron HCl (Ondansetron Hcl 4 Mg/2 Ml Vial) 4 mg IVPUSH Q8H PRN PRN Reason: Nausea and Vomiting Last Admin: 04/25/21 20:06 Dose: 4 mg Documented by: CODIE Quetiapine Fumarate (Quetiapine Fumarate 100 Mg Tablet) 100 mg PO BEDTIME [facility] Last Admin: 04/27/21 20:51 Dose: 100 mg Documented by: CARMEN Sodium Chloride (0.9 % Sodium Chloride Flush 3 Ml Syringe) 3 ml IVFLUSH QSHIFT [facility] Last Admin: 04/28/21 08:13 Dose: 3 ml Documented by: VANCE Sucralfate (Sucralfate Oral Suspension 1 Gm/10 Ml Oral.Susp) 1 gm PO QIDACHS [facility] Last Admin: 04/28/21 11:40 Dose: 1 gm Documented by: VANCE Labs CBC & Chem 7: 04/28/21 06:30 04/28/21 06:30 Labs: Laboratory Results - last 24 hr 04/27/21 04/27/21 04/28/21 16:20 20:28 06:30 POC Glucose 174 H 220 H Magnesium 1.6 C-Reactive Protein 0.62 H 04/28/21 04/28/21 07:17 11:15 POC Glucose 145 H 178 H Magnesium C-Reactive Protein Assessment and Plan (1) Acute blood loss anemia: Status: Acute (2) Acute upper GI bleed: Status: Acute (3) COVID-19: Status: Acute Assessment and Plan: hospital d#5 60yo M with DM2 + HTN presenting with coffee-ground emesis/hematemesis, acute blood loss anemia, Covid-19 positive # acute blood loss anemia - transfused 2u pRBCs 04/26/21 with improved H+H # UGIB - on IV PPI + sucralfate; outpt EGD in 1-2 wk per GI unless develops skyler bleeding again or unable to maintain blood counts. diet advanced # NSVT - continue etoprolol succinate. replete K/Mg. TTE in am. # Covid-19 infection - unvaccinated but mild infection without any hypoxia- d/c'ed dexamethasone, continue isolation precautions; trend inflammatory markers # DM2, A1c 8.3 - correction-dose lispro # transaminasemia - could be fatty liver or Covid-19, monitor LFTs, HBV/HCV pending # HTN - holding lisinopril, resumed metoprolol succinate # HLD - continue atorvastatin, fenofibrate # neuropathy - continue gabapentin # mood disorder - continue quetiapine, duloxetine - per Care Team, does not require inpatient psychiatry # tobacco abuse - continue NRT # VTE ppx - SCDs; no heparin given GIB Quality Stroke Does the patient have a stroke diagnosis?: No VTE Prior VTE?: No VTE Risk Level:: Medical - moderate - high VTE Device Contraindication: N/A - Device Ordered VTE Drug Contraindication: Treatment Not Indicated
--- NOTE | 2021-04-28 14:20 | PC.NURSE ---
Pt is aert and oriented x3. Denies pain. Cardiology consult today. Pt had a few runs of V-tach the previous day, therefore an ECHO is ordered for tomorrow
[2021-04-28 15:35] VITALS: BP 147/85; PULSE 76; RESP 18; TEMP 36.6; O2SAT 98
[2021-04-28 16:07] LABS: Glucose, Whole Blood 223 mg/dL (60-115)
[2021-04-28] MEDS: Potassium Chloride ER 20 MEQ TAB.ER.PRT 40 MEQ PO (17:27)
[2021-04-28] MEDS: Magnesium Oxide 400 MG TABLET 800 MG PO (17:28)
[2021-04-28 19:11] VITALS: BP 142/63; PULSE 76; RESP 18; TEMP 36.4; O2SAT 98
[2021-04-28 20:05] LABS: Glucose, Whole Blood 193 mg/dL (60-115)
[2021-04-28] MEDS: QUEtiapine Fumarate 100 MG TABLET PO (21:02)
[2021-04-29] VITALS (8 sets, daily range): BP systolic 90–119; BP diastolic 50–78; PULSE 76–87; RESP 17–18; TEMP 36.7–37.2; O2SAT 92–98
[2021-04-29] MEDS: 0.9 % Sodium Chloride Flush 3 ML SYRINGE IVFLUSH ×4 (00:15→21:14)
[2021-04-29 03:51] LABS: HBc Num1 8.71 S/CO (0.00-0.79); HBsAGNum1 0.28 S/CO (0.00-0.99); Hepatitis B Surface Antigen Negative (Negative); ~Hepatitis B Surface Antibody REACTIVE (Nonreactive)
[2021-04-29 03:59] LABS: ~HepC Num1 0.05 S/CO (0.00-0.79); ~Hepatitis C Antibody Nonreactive (Nonreactive)
[2021-04-29 04:27] LABS: HBc Num3 8.77 S/CO; Hepatitis B Core Antibody Reactive (Nonreactive)
[2021-04-29] MEDS: Omeprazole 20 MG CAPSULE.DR PO ×2 (05:27→16:49)
[2021-04-29 06:54] LABS: Hematocrit 30.3 % (42.0-52.0); Hemoglobin 10.4 g/dl (14.0-18.0)
[2021-04-29 07:11] LABS: Anion Gap 10 (12-20); Blood Urea Nitrogen 7 mg/dL (9-16); Calcium 8.7 mg/dL (8.4-10.2); Carbon Dioxide 24 mmol/L (22-29); Chloride 103 mmol/L (96-108); Creatinine Clr Calc Pharmacy 111.8; Estimated Glomerular Filt Rate > 60; Glucose Random 158 mg/dL (60-115); Magnesium 1.8 mg/dL (1.6-2.6); Sodium 133 mmol/L (135-145)
[2021-04-29 07:32] LABS: Glucose, Whole Blood 155 mg/dL (60-115)
[2021-04-29] MEDS: Fenofibrate 54 MG TABLET PO (08:33)
[2021-04-29] MEDS: Metoprolol Succinate ER 25 MG TAB.ER.24H PO (08:33)
[2021-04-29] MEDS: Atorvastatin Calcium 40 MG TABLET PO (08:33)
[2021-04-29] MEDS: Sucralfate Oral Suspension 1 GM/10 ML ORAL.SUSP PO ×4 (08:33→21:13)
[2021-04-29] MEDS: Insulin Lispro 100 UNIT/ML 3 ML VIAL SUBCUT ×4 (08:33→21:14)
[2021-04-29] MEDS: DULoxetine HCl 30 MG CAPSULE.DR PO (08:34)
[2021-04-29] MEDS: Nicotine 21 MG PATCH.TD24 TRANSDERMA (08:34)
[2021-04-29] MEDS: Gabapentin 300 MG CAPSULE 600 MG PO ×3 (08:34→21:13)
[2021-04-29 11:28] LABS: Glucose, Whole Blood 190 mg/dL (60-115)
--- NOTE | 2021-04-29 15:31 | HO.PM.IMPN ---
Subjective Subjective Date of Service: 04/29/21 Interval History: Nausea improved Tolerating diet No GI bleeding No further NSVT Review of Systems Review of Systems: Yes all other systems are reviewed and are negative Physical Exam Vital Signs: Vital Signs: Last Vital Signs Temp 98.8 F 04/29/21 15:18 Pulse 76 04/29/21 15:18 Resp 18 04/29/21 15:18 BP 90/53 L 04/29/21 15:18 Pulse Ox 98 04/29/21 15:18 BMI result Body Mass Index 24.7 Gen: in no acute distress HEENT: sclera anicteric, moist mucus membranes Neck: supple Lungs: clear to auscultation bilaterally Heart: regular rate and rhythm, no murmurs Abd: soft, non-tender, non-distended Ext: no edema Skin: warm/well-perfused Neuro: alert and oriented x3, no focal findings Psych: appropriate affect Objective Data Active Medications Acetaminophen (Acetaminophen 325 Mg Tablet) 650 mg PO Q6H PRN PRN Reason: Pain, Mild (Pain Scale 1-3) Atorvastatin Calcium (Atorvastatin Calcium 40 Mg Tablet) 40 mg PO DAILY [facility] Last Admin: 04/29/21 08:33 Dose: 40 mg Documented by: DEBRA Duloxetine HCl (Duloxetine Hcl 30 Mg Capsule.) 30 mg PO DAILY [facility] Last Admin: 04/29/21 08:34 Dose: 30 mg Documented by: DEBRA Fenofibrate (Fenofibrate 54 Mg Tablet) 54 mg PO DAILY [facility] Last Admin: 04/29/21 08:33 Dose: 54 mg Documented by: DEBRA Gabapentin (Gabapentin 300 Mg Capsule) 600 mg PO TID [facility] Last Admin: 04/29/21 08:34 Dose: 600 mg Documented by: DEBRA Insulin Human Lispro (Insulin Lispro 100 Unit/Ml 3 Ml Vial) 0 unit SUBCUT QIDACHS [facility]; Protocol Last Admin: 04/29/21 12:39 Dose: 2 unit Documented by: DEBRA Metoprolol Succinate (Metoprolol Succinate Er 25 Mg Tab.Er.24h) 25 mg PO DAILY [facility]; Protocol Last Admin: 04/29/21 08:33 Dose: 25 mg Documented by: DEBRA Nicotine (Nicotine 21 Mg Patch.Td24) 21 mg TRANSDERMA DAILY [facility] Last Admin: 04/29/21 08:34 Dose: 21 mg Documented by: DEBRA Omeprazole (Omeprazole 20 Mg Capsule.) 20 mg PO BID@0630,1630 [facility] Last Admin: 04/29/21 05:27 Dose: 20 mg Documented by: CHRISTINE Ondansetron HCl (Ondansetron Hcl 4 Mg/2 Ml Vial) 4 mg IVPUSH Q8H PRN PRN Reason: Nausea and Vomiting Last Admin: 04/25/21 20:06 Dose: 4 mg Documented by: CODIE Quetiapine Fumarate (Quetiapine Fumarate 100 Mg Tablet) 100 mg PO BEDTIME [facility] Last Admin: 04/28/21 21:02 Dose: 100 mg Documented by: ADA Sodium Chloride (0.9 % Sodium Chloride Flush 3 Ml Syringe) 3 ml IVFLUSH QSHIFT [facility] Last Admin: 04/29/21 08:34 Dose: 3 ml Documented by: DEBRA Sucralfate (Sucralfate Oral Suspension 1 Gm/10 Ml Oral.Susp) 1 gm PO QIDACHS [facility] Last Admin: 04/29/21 12:39 Dose: 1 gm Documented by: DEBRA Labs CBC & Chem 7: 04/29/21 06:01 04/29/21 06:01 Labs: Laboratory Results - last 24 hr 04/26/21 04/27/21 04/28/21 07:47 06:59 15:39 Smear Path Review SEE NOTE Anion Gap Estim Creat Clear Calc Estimated GFR POC Glucose 223 H Random Glucose Calcium Magnesium Hep Bs Antigen Negative Hep Bs Antibody REACTIVE Hep B Core Total Ab Reactive Hep B Core IgM Ab Cancelled Hepatitis C Ab (EIA) Nonreactive 04/28/21 04/29/21 04/29/21 19:48 06:01 07:25 Smear Path Review Anion Gap 10 L Estim Creat Clear Calc 111.8 Estimated GFR > 60 POC Glucose 193 H 155 H Random Glucose 158 H D Calcium 8.7 D Magnesium 1.8 Hep Bs Antigen Hep Bs Antibody Hep B Core Total Ab Hep B Core IgM Ab Hepatitis C Ab (EIA) 04/29/21 11:24 Smear Path Review Anion Gap Estim Creat Clear Calc Estimated GFR POC Glucose 190 H Random Glucose Calcium Magnesium Hep Bs Antigen Hep Bs Antibody Hep B Core Total Ab Hep B Core IgM Ab Hepatitis C Ab (EIA) Microbiology Microbiology Results: Microbiology 04/24/21 11:02 Blood Culture - Final Blood - Venous No growth after 5 days. 04/24/21 11:02 Blood Culture - Final Blood - Venous No growth after 5 days. Assessment and Plan (1) Acute blood loss anemia: Status: Acute (2) Acute upper GI bleed: Status: Acute (3) COVID-19: Status: Acute Assessment and Plan: hospital d#6 60yo M with DM2 + HTN presenting with coffee-ground emesis/hematemesis, acute blood loss anemia, Covid-19 positive # acute blood loss anemia - transfused 2u pRBCs 04/26/21 with improved H+H, plan output EGD [see below] # UGIB - on PO PPI + sucralfate; outpt EGD in 1-2 wk per GI # NSVT - continue metoprolol succinate. check TTE in am. # Covid-19 infection - unvaccinated but mild infection without any hypoxia and now with very little in the way of respiratory symptoms- d/c'ed dexamethasone as he was never hypoxic; inflammatory markers low; continue isolation precaution # DM2, A1c 8.3 - correction-dose lispro # transaminasemia - likely Covid-19 +/- fatty liver disease; HBV immune from prior infection, HCV negative # HTN - holding lisinopril, resumed metoprolol succinate # HLD - continue atorvastatin, fenofibrate # neuropathy - continue gabapentin # mood disorder - continue quetiapine, duloxetine - per Care Team, does not require inpatient psychiatry # cocaine abuse - Care Team consult # tobacco abuse - continue NRT # VTE ppx - SCDs; no heparin given GIB # dispo - PT eval, likely d/c home with VNA tomorrow after TTE Quality Stroke Does the patient have a stroke diagnosis?: No VTE Prior VTE?: No VTE Risk Level:: Medical - moderate - high VTE Device Contraindication: N/A - Device Ordered VTE Drug Contraindication: Treatment Not Indicated
--- NOTE | 2021-04-29 16:15 | MHC.RECOVSUP ---
Recovery Support note: This junior technical writer contacted patient via telephone to discuss his cocaine use. Patient reports using cocaine once a month and acknowledges that it is not good for his health. Patient reports a long history of using crack cocaine, stating he used for 40 years and that he has stopped using on his own before. Patient reports he plans to stop using for the benefit of his health and that he is confident in his ability to do so. This junior technical writer offered to have a recovery agent speak with patient and he declined, stating he would be interested in having someone call him after discharge. This junior technical writer will refer patient to recovery coaching services and a customer care team coach will contact patient after discharge. This junior technical writer available as needed.
[2021-04-29 16:27] LABS: Glucose, Whole Blood 196 mg/dL (60-115)
[2021-04-29 20:43] LABS: Glucose, Whole Blood 247 mg/dL (60-115)
[2021-04-29] MEDS: QUEtiapine Fumarate 100 MG TABLET PO (21:12)
[2021-04-30 03:17] VITALS: BP 119/51; PULSE 84; RESP 18; TEMP 36.5; O2SAT 95
[2021-04-30] MEDS: Omeprazole 20 MG CAPSULE.DR PO ×2 (05:55→16:32)
[2021-04-30 07:13] VITALS: BP 105/59; PULSE 87; RESP 18; TEMP 36.9; O2SAT 96
[2021-04-30 07:40] LABS: Glucose, Whole Blood 282 mg/dL (60-115)
[2021-04-30] MEDS: Metoprolol Succinate ER 25 MG TAB.ER.24H PO (08:10)
[2021-04-30] MEDS: Fenofibrate 54 MG TABLET PO (08:10)
[2021-04-30] MEDS: Insulin Lispro 100 UNIT/ML 3 ML VIAL SUBCUT ×4 (08:10→20:17)
[2021-04-30] MEDS: DULoxetine HCl 30 MG CAPSULE.DR PO (08:10)
[2021-04-30] MEDS: Atorvastatin Calcium 40 MG TABLET PO (08:10)
[2021-04-30] MEDS: Gabapentin 300 MG CAPSULE 600 MG PO ×3 (08:11→20:17)
[2021-04-30] MEDS: 0.9 % Sodium Chloride Flush 3 ML SYRINGE IVFLUSH ×3 (08:11→20:18)
[2021-04-30] MEDS: Sucralfate Oral Suspension 1 GM/10 ML ORAL.SUSP PO ×4 (08:11→20:17)
--- NOTE | 2021-04-30 08:30 | CA_ITS ---
Transthoracic Echocardiogram Patient (Last, First, Middle): Matthew Vizcaino, Gender: Male Date of : 1960 Age: 60 Procedure Date: 04/30/2021 Procedure Type: Transthoracic Echocardiogram [place] [facility] [place]: 175.26 cm Weight: 76.2 kg BSA: 1.92 m2 Heart Rate: bpm BP: 109 / 57 mmHg Tile Machine Operator: Referring MD: Christina Win MD Head Track Coach: Merlin Davila MD Symptoms: NSVT Study Quality: Technically Difficult ECG Rhythm: Sinus Conclusions: - 1. Technically limited study with off axis views 2. LV systolic function overall appears to be normal with LVEF of 55-60% 3. Mild aortic regurgitation 4. Normal calculated RV systolic pressure 5. No gross pericardial effusion Findings Left Ventricle The left ventricle was not well visualized. The left ventricular systolic function is normal. The visually estimated ejection fraction is between 55 60%. Regional wall motion abnormalities can not be excluded due to suboptimal endocardial definition. Spectral Doppler is indicative of an impaired relaxation filling pattern. Right Ventricle Normal right ventricular cavity size and systolic function. Atria The left atrium is normal in size. Interatrial shunt cannot be excluded. The right atrium was not well visualized. Aortic Valve The aortic valve was not well visualized. There is mild calcification of the aortic valve. There is no aortic valve stenosis. There is mild aortic valve regurgitation. Mitral Valve The mitral valve was not well visualized. There is no mitral valve regurgitation. There is no mitral valve stenosis. Pulmonic Valve The pulmonic valve was not well visualized. Tricuspid Valve The tricuspid valve was not well visualized. There is trace tricuspid valve regurgitation. The right ventricular systolic pressure is normal. Great Vessels The aorta was not well visualized. The pulmonary artery was not well visualized. Venous The inferior vena cava is normal in size and collapses greater than 50% with inspiration. Pericardium/Pleural There is no evidence of pericardial effusion. Prior Study Comparison No prior study available for comparison. Measurements 2D Linear Measurements IVSd: 1.26 0.6-0.9/0.6-1.0 cm LVIDd: 4.40 3.9-5.3/4.2-5.9 cm LVIDd Index: 2.29 2.4-3.2/2.2-3.1 cm/m2 LVIDs: 3.05 2.0-3.6 cm LVPWd: 1.21 0.7-1.1 cm Ao Root: 3.00 2.1-3.5 cm LA Diam: 2.60 2.7-3.8/3.0-4.0 cm LAIDs Index: 1.35 1.5-2.3 cm/m2 LV Mass: 248.62 67-162/88-224 g LV Mass Index: 129.49 43-95/49-115 g/m2 LVOT Diam: 2.20 3.0+(-)1.3 cm 2D Systolic Function EF 4C: 71.70 >55% EF 2C: 58.30 >55% Mitral Valve MV Pk E: 0.59 MV PK A: 0.96 MV Decel Time: 125.00 E/A: 0.60 E'Lateral: 5.11 E'Medial: 5.66 E/E' Med: 10.40 E/E' Lat: 11.50 PHT: 37.00 MVA PHT: 5.95 Decel Grundy: 4.69 Aortic Valve AoV Pk Ozzie: 1.90 AoV Mn Ozzie: 1.32 AoV VTI: 0.27 AoV Pk Grad: 14.00 Aov Mn Grad: 8.00 NEIL Cont.VTI: 2.67 LVOT LVOT Pk Ozzie: 1.05 LVOT Mn Ozzie: 0.65 LVOT VTI: 0.19 LVOT Pk Grad: 4.00 LVOT Mn Grad: 2.00 LVOT Diam: 2.20 LVOT Area: 3.80 Diastolic Function MV Pk E: 0.59 MV Pk A: 0.96 E/A: 0.60 E'Medial: 5.66 E/E' Med: 10.40 E' Laterial: 5.11 E/E' Lat: 11.50 Right Ventricle TAPSE (mm): 2.60 TVS' Ozzie: 24.00 Tricuspid Valve TR Pk Ozzie: 1.84 TR Pk Grad: 14.00 RA Press: 3.00 RVSP: 17.00 Great Vessels Aorta Ao Root-2D: 3.00 2.0-3.7 cm Updated in Other Vendor System with Status of Final Merlin Davila MD electronically signed on 04/30/2021 12:21:32 PM with status of Final
[2021-04-30 11:14] VITALS: BP 118/69; PULSE 107; RESP 18; TEMP 37.3; O2SAT 97
[2021-04-30 11:22] LABS: Glucose, Whole Blood 283 mg/dL (60-115)
[2021-04-30 15:55] VITALS: BP 134/76; PULSE 95; RESP 18; TEMP 36.9; O2SAT 97
[2021-04-30 16:20] LABS: Glucose, Whole Blood 319 mg/dL (60-115)
--- NOTE | 2021-04-30 16:39 | P.PNIM_ITS ---
Subjective Subjective Date of Service: 04/30/21 Interval History: No recurrent episode of GI bleed, tele monitor showed no recurrent arrhythmia, patient denies chest pain, no fevers, no chills, no shortness of breath, no other acute issues overnight. Review of Systems Review of Systems: Yes all other systems are reviewed and are negative Physical Exam Vital Signs: Vital Signs: Last Vital Signs Temp 98.4 F 04/30/21 15:55 Pulse 95 04/30/21 15:55 Resp 18 04/30/21 15:55 BP 134/76 04/30/21 15:55 Pulse Ox 97 04/30/21 15:55 BMI result Body Mass Index 24.7 Gen: Awake alert, in no acute distress HEENT: sclera anicteric, moist mucus membranes Neck: supple Lungs: clear to auscultation bilaterally Heart: regular rate and rhythm, no murmurs Abd: soft, non-tender, non-distended Ext: no edema Skin: warm/well-perfused Neuro: alert and oriented x3, no focal findings Psych: appropriate affect ? Objective Data Active Medications Acetaminophen (Acetaminophen 325 Mg Tablet) 650 mg PO Q6H PRN PRN Reason: Pain, Mild (Pain Scale 1-3) Atorvastatin Calcium (Atorvastatin Calcium 40 Mg Tablet) 40 mg PO DAILY [facility] Last Admin: 04/30/21 08:10 Dose: 40 mg Documented by: TRUPTI Duloxetine HCl (Duloxetine Hcl 30 Mg Capsule.Dr) 30 mg PO DAILY [facility] Last Admin: 04/30/21 08:10 Dose: 30 mg Documented by: TRUPTI Fenofibrate (Fenofibrate 54 Mg Tablet) 54 mg PO DAILY [facility] Last Admin: 04/30/21 08:10 Dose: 54 mg Documented by: TRUPTI Gabapentin (Gabapentin 300 Mg Capsule) 600 mg PO TID [facility] Last Admin: 04/30/21 16:31 Dose: 600 mg Documented by: TRUPTI Insulin Human Lispro (Insulin Lispro 100 Unit/Ml 3 Ml Vial) 0 unit SUBCUT QIDACHS [facility]; Protocol Last Admin: 04/30/21 16:32 Dose: 8 unit Documented by: TRUPTI Metoprolol Succinate (Metoprolol Succinate Er 25 Mg Tab.Er.24h) 25 mg PO DAILY [facility]; Protocol Last Admin: 04/30/21 08:10 Dose: 25 mg Documented by: TRUPTI Nicotine (Nicotine 21 Mg Patch.Td24) 21 mg TRANSDERMA DAILY [facility] Last Admin: 04/30/21 08:23 Dose: Not Given Documented by: TRUPTI Non-Admin Reason: Patient Refused Omeprazole (Omeprazole 20 Mg Capsule.) 20 mg PO BID@0630,1630 [facility] Last Admin: 04/30/21 16:32 Dose: 20 mg Documented by: TRUPTI Ondansetron HCl (Ondansetron Hcl 4 Mg/2 Ml Vial) 4 mg IVPUSH Q8H PRN PRN Reason: Nausea and Vomiting Last Admin: 04/25/21 20:06 Dose: 4 mg Documented by: CODIE Quetiapine Fumarate (Quetiapine Fumarate 100 Mg Tablet) 100 mg PO BEDTIME [facility] Last Admin: 04/29/21 21:12 Dose: 100 mg Documented by: CARMEN Sodium Chloride (0.9 % Sodium Chloride Flush 3 Ml Syringe) 3 ml IVFLUSH QSHIFT [facility] Last Admin: 04/30/21 16:32 Dose: 3 ml Documented by: TRUPTI Sucralfate (Sucralfate Oral Suspension 1 Gm/10 Ml Oral.Susp) 1 gm PO QIDACHS [facility] Last Admin: 04/30/21 16:31 Dose: 1 gm Documented by: TRUPTI Labs CBC & Chem 7: 04/29/21 06:01 04/29/21 06:01 Labs: Laboratory Results - last 24 hr 04/29/21 04/30/21 04/30/21 20:19 07:15 11:16 POC Glucose 247 H 282 H 283 H 04/30/21 16:12 POC Glucose 319 H Microbiology Microbiology Results: Microbiology 04/24/21 11:02 Blood Culture - Final Blood - Venous No growth after 5 days. 04/24/21 11:02 Blood Culture - Final Blood - Venous No growth after 5 days. Assessment and Plan (1) Acute blood loss anemia: Status: Acute (2) Acute upper GI bleed: Status: Acute (3) COVID-19: Status: Acute Assessment and Plan: hospital d#7 60yo M with DM2 + HTN presenting with coffee-ground emesis/hematemesis, acute blood loss anemia, Covid-19 positive # acute blood loss anemia - hematocrit stable is status post 2u pRBCs 04/26/21, plan output EGD # UGIB - on PO PPI + sucralfate; outpt EGD in 1-2 wk per GI # NSVT - continue metoprolol succinate. Echo obtained showed EF 55-60% regional wall motion abnormality cannot be excluded due to sub optimal endocardial definition, impaired relaxation, # Covid-19 infection - unvaccinated but mild infection without any hypoxia , inflammatory markers low; continue isolation precaution # DM2, A1c 8.3 - elevated blood sugars,on correction-dose lispro, resume metformin # transaminasemia - likely Covid-19 +/- fatty liver disease; HBV immune from prior infection, HCV negative, repeat LFTs are stable, recommend to follow LFTs closely while on statin # HTN - bp stable continue metoprolol succinate, continue to hold lisinopril # HLD - continue atorvastatin, fenofibrate # neuropathy - continue gabapentin # mood disorder - continue quetiapine, duloxetine - per Care Team, does not require inpatient psychiatry # cocaine abuse - Care Team consult # tobacco abuse - continue NRT # VTE ppx - SCDs; no heparin given GIB # dispo - seen by Physical therapy patient at baseline with functional transfer, wheelchair bound at baseline no further acute PT recommend, likely d/c home at a.m. Quality Stroke Does the patient have a stroke diagnosis?: No VTE Prior VTE?: No VTE Risk Level:: Medical - moderate - high VTE Device Contraindication: N/A - Device Ordered VTE Drug Contraindication: Treatment Not Indicated
[2021-04-30 20:00] VITALS: BP 133/78; PULSE 96; RESP 18; TEMP 37; O2SAT 96
[2021-04-30 20:13] LABS: Glucose, Whole Blood 337 mg/dL (60-115)
[2021-04-30] MEDS: QUEtiapine Fumarate 100 MG TABLET PO (20:17)
[2021-04-30 23:10] VITALS: BP 109/61; PULSE 95; RESP 18; TEMP 36.8; O2SAT 97
[2021-05-01 04:00] VITALS: BP 132/75; PULSE 85; RESP 18; TEMP 36.6; O2SAT 96
[2021-05-01] MEDS: Omeprazole 20 MG CAPSULE.DR PO ×2 (05:49→17:05)
[2021-05-01 07:09] VITALS: BP 121/83; PULSE 93; RESP 18; TEMP 36.9; O2SAT 96
[2021-05-01 07:42] LABS: Glucose, Whole Blood 258 mg/dL (60-115)
[2021-05-01] MEDS: DULoxetine HCl 30 MG CAPSULE.DR PO (08:05)
[2021-05-01] MEDS: Atorvastatin Calcium 40 MG TABLET PO (08:06)
[2021-05-01] MEDS: Metoprolol Succinate ER 25 MG TAB.ER.24H PO (08:06)
[2021-05-01] MEDS: Fenofibrate 54 MG TABLET PO (08:07)
[2021-05-01] MEDS: Gabapentin 300 MG CAPSULE 600 MG PO ×2 (08:07→17:05)
[2021-05-01] MEDS: Insulin Lispro 100 UNIT/ML 3 ML VIAL SUBCUT ×3 (08:07→17:06)
[2021-05-01] MEDS: 0.9 % Sodium Chloride Flush 3 ML SYRINGE IVFLUSH ×2 (08:14→17:06)
[2021-05-01 10:57] VITALS: BP 118/71; PULSE 92; RESP 18; TEMP 36.6; O2SAT 96
--- NOTE | 2021-05-01 11:10 | PM.DS ---
DS: Providers Provider Date of Service: 05/01/21 Date of admission: 04/24/21 13:37 Primary care physician: Danielle Elizabeth NP Consults: 04/24/21 14:14 Consult to Gastroenterology Routine Consulting Provider: Alondra Avila Reason for consultation: UGIB Has provider been notified: No 04/27/21 13:02 Consult to Cardiology Routine Consulting Provider: Stanley Luna Reason for consultation: NSVT 04/28/21 11:00 Consult to Care Team Routine Comment: Reason for consultation: Getting medically d/c'ed; medically clear; reported SI on admit 04/28/21 11:59 Consult to Care Team Stat Comment: Reason for consultation: Getting medically d/c'ed; medically clear; reported SI on admit 04/29/21 15:31 Consult to Care Team Routine Comment: Reason for consultation: cocaine abuse DS: Diagnosis Discharge Diagnosis (1) Acute blood loss anemia: Status: Acute (2) Acute upper GI bleed: Status: Acute (3) COVID-19: Status: Acute DS: Summary Hospital Course Hospital Course: Chief Complaint: Vomiting blood 60-year-old male presents with what he describes is 1 week of vomiting coffee-ground type material with occasional red blood.? He was recently admitted on 04/11 for complaints of abdominal pain which she attributed to bad chicken.? He was seen by GI; CT scan of abdomen showed no acute abnormalities.? He was sent home on PPI/Carafate and a plan for outpatient therapy was implemented.? He states he was taking the medicine however developed this nausea and vomiting of dark black material and presented to the emergency room.? He also notes dark tarry stools over the last several days.? On 04/20/2021 hemoglobin was noted to be 14.3; today hemoglobin 10.3 repeat hemoglobin pending.? COVID swab was done and came back positive. Hospital course 60yo M with DM2 + HTN presenting with coffee-ground emesis/hematemesis likely upper GI bleed, acute blood loss anemia, Covid-19 positive, patient was treated with 2 units of packed RBC on 04/26/21 hematocrit improved and remained stable, Patient seen by aqueduct and reservoir keeper Dr awad and he recommend to treat patient with Prilosec 20 mg b.i.d., sucrafate and follow-up with GI in 1-2 weeks, patient had no further episodes of recurrent GI bleed during course of hospitalization. Patient noted to have NSVT seen on tele monitor and echocardiogram showed preserved EF 55-60%, impaired diastolic relaxation, regional wall motion abnormality cannot be excluded due to suboptimal endocardial definition, patient has been recommended to continue beta-blockers. In regard to COVID-19 infection patient had no hypoxia and had low inflammatory markers, recommended fluids and rest In regard to diabetes mellitus patient hemoglobin A1c is 8.3 recommended to continue metformin and diabetic diet Patient noted to have elevated LFTs likely from Covid-19 +/- fatty liver disease; HBV immune from prior infection, HCV negative, repeat LFTs are stable, recommend to follow LFTs closely while on statin In regard to hypertension recommend to continue metoprolol and lisinopril discontinued due to soft blood pressures, in regard to hyperlipidemia continue fenofibrate and Lipitor and follow LFTs For neuropathy continue gabapentin Strongly recommend to abstain from smoking and illicit drug use, patient seen by care team and outpatient referrals given Patient is wheelchair-bound, seen by Physical therapy no further outpatient therapy recommended. Time Spent with Patient Time attestation: Total time spent providing and/or coordinating discharge services: Discharge coordination time: Greater than 30 minutes Quality: Stroke Does the patient have a stroke diagnosis?: No Physical Exam Vital Signs: Vital Signs: Last Vital Signs Temp 97.9 F 05/01/21 10:57 Pulse 92 05/01/21 10:57 Resp 18 05/01/21 10:57 BP 118/71 05/01/21 10:57 Pulse Ox 96 05/01/21 10:57 BMI result Body Mass Index 24.7 Gen:? Awake alert, in no acute distress HEENT: sclera anicteric, moist mucus membranes Neck: supple Lungs: clear to auscultation bilaterally Heart: regular rate and rhythm, no murmurs Abd: soft, non-tender, non-distended Ext: no edema Skin: warm/well-perfused Neuro: alert and oriented x3, no focal findings Psych: appropriate affect ? DS: Data Data Completed and Pending Labs on day of discharge: Laboratory Results - last 24 hr 04/30/21 04/30/21 04/30/21 11:16 16:12 20:07 POC Glucose 283 H 319 H 337 H 05/01/21 07:10 POC Glucose 258 H Discharge Plan Discharge Patient Disposition: Home Health Service Discharge Diagnosis: Upper GI bleed, Covid-19 infection, NSVT Referrals: [facility] [Outside] - 1 Week Alondra Avila MD [Physician] - 1 Week Danielle Elizabeth NP [Primary Care Provider] - 1 Week Discharge Medications: New omeprazole 20 mg Capsule,Delayed Release(Dr/Ec) 20 mg PO BID@0630,1630 Qty: 60 RF: 0 Continued sucralfate [Carafate] 1 gram tablet 1 g PO QID 30 Days Qty: 120 RF: 0 ondansetron 4 mg tablet,disintegrating 4 mg PO Q6-8H PRN (Reason: nausea and vomiting) Qty: 14 RF: 0 atorvastatin 40 mg Tablet 40 mg PO DAILY Qty: 30 RF: 0 quetiapine 100 mg Tablet 100 mg PO BEDTIME Qty: 30 RF: 0 nicotine 21 mg/24 hr Patch 24 Hour 21 mg transdermal DAILY Qty: 30 RF: 0 gabapentin 300 mg Capsule 600 mg PO TID Qty: 60 RF: 0 metoprolol succinate 25 mg Tablet Extended Release 24 Hr 25 mg PO DAILY Qty: 30 RF: 0 metformin 500 mg Tablet Extended Release 24 Hr 1,000 mg PO BID Qty: 60 RF: 0 duloxetine 30 mg Capsule,Delayed Release(Dr/Ec) 30 mg PO DAILY Qty: 30 RF: 0 fenofibrate 54 mg Tablet 54 mg PO DAILY Qty: 30 RF: 0 (DME) blood-glucose meter Kit See Rx Instructions .Route Qty: 1 RF: 0 Discontinued pantoprazole 40 mg tablet,delayed release (DR/EC) 1 tab PO DAILY RF: 0 lisinopril 20 mg Tablet 20 mg PO DAILY Qty: 30 RF: 0 Discharge Orders: Discharge Order (Routine); Ordered 05/01/21 Ordered By: Edwina Grant Diet: advance to usual diet and diabetic diet Activity on Discharge: no cocaine Stand Alone Forms: Patient Portal Discharge page Care Plan Goals: diagnosis of source of upper GI bleeding recovery from Covid-19 infection prevention of cardiac arrhythmias Health Concerns: Upper GI bleed, Covid-19 infection, NSVT Plan of Treatment: take omeprazole 20 mg twice daily; continue sucralfate; follow up with Dr Avila from GI in 1-2 weeks for EGD [endoscopy]; avoid alcohol and NSAIDs maintain isolation as per CDC precautions; return to hospital for worsening shortness of breath continue metoprolol succinate; stop lisinopril Assessment: see Discharge Summary Patient Instructions: Gastrointestinal Bleeding (ED), COVID-19 (Coronavirus Disease 2019) (DC)
--- NOTE | 2021-05-01 11:14 | MHC.CM.PN ---
Patient has been medically cleared for dc to home today, with [facility]NA. Patient was active with [facility], who has been made aware of today's dc.
[2021-05-01 11:26] LABS: Glucose, Whole Blood 264 mg/dL (60-115)
--- NOTE | 2021-05-01 11:50 | MHC.CM.PN ---
Patient will dc to home today at 4PM, via [facility].
[2021-05-01] MEDS: Sucralfate Oral Suspension 1 GM/10 ML ORAL.SUSP PO ×3 (12:06→17:05)
[2021-05-01 16:49] LABS: Glucose, Whole Blood 283 mg/dL (60-115)
== END 2021-05-01 17:46 | disposition home health service (06) | DRG 253 ==
LOC: HO.ED 11:32 → HO.EDOVER 14:41 → HO.IMC 18:31
PROVIDERS: Family Medicine; Internal Medicine; Internal Medicine Gastroenterology; Physician Assistant; Admitting Provider Hospitalist; Emergency Provider Emergency Medicine; PCP Nurse Practitioner Family; Visit Provider Hospitalist
DX: K92.2 Gastrointestinal hemorrhage, unspecified (principal); U07.1 COVID-19; N17.9 Acute kidney failure, unspecified; E87.1 Hypo-osmolality and hyponatremia; I47.1 Supraventricular tachycardia; D62 Acute posthemorrhagic anemia; K76.0 Fatty (change of) liver, not elsewhere classified; E11.40 Type 2 diabetes mellitus with diabetic neuropathy, unspecified; F17.210 Nicotine dependence, cigarettes, uncomplicated; E86.0 Dehydration; F32.A Depression, unspecified; F14.20 Cocaine dependence, uncomplicated; E78.5 Hyperlipidemia, unspecified; I10 Essential (primary) hypertension; Z99.3 Dependence on wheelchair; Z79.84 Long term (current) use of oral hypoglycemic drugs; Z79.899 Other long term (current) drug therapy
CPT/HCPCS: 0241U; 36415; 70450; 71045; 80048; 80053; 80076; 80307; 81001; 82077; 82272; 82728; 82947; 83036; 83605; 83615; 83690; 83735; 83930; 83935; 84132; 84145; 84300; 84484; 85014; 85018; 85025; 85027; 85379; 85610; 85730; 86140; 86704; 86706; 86803; 86850; 86900; 86901; 86923; 87040; 87340; 87389; 93005; 93306; 96361; 96374; 97161; 99285; 99291; J1100; J2405; P9016

== ENCOUNTER → 2021-05-09 11:18 | Outpatient (BNVA) | payer MEDICAID, SELFPAY | PROVIDERS: Visit Provider Nurse Practitioner Psychiatric/Mental Health ==

== ENCOUNTER 2021-05-31 10:56 | Inpatient (IN) | payer OTHER, MEDICAID, SELFPAY ==
--- NOTE | 2021-05-31 10:58 | ED_ITS ---
HPI - Psych General Chief Complaint: Psychiatric Symptoms Stated Complaint: VOLUNTARY CRISIS EVAL FOR SI W/PLAN PER EMS Time Seen by Provider: 05/31/21 10:58 Source: patient Mode of arrival: EMS Limitations: no limitations History of Present Illness MD complaint: suicidal ideation and feels depressed Onset (ago): day(s) (3) Duration: getting worse History of same: Yes Relieving factors: none Exacerbating factors: drug use Context: recent drug abuse and not taking psychiatric medications Associated psychiatric symptoms: depression and suicidal ideation Associated symptoms: denies other symptoms If self harm: admits thoughts of self harm Related Data Previous Rx's Medication Instructions Recorded atorvastatin 40 mg tablet 40 mg PO DAILY #30 tab 03/26/21 blood-glucose meter #1 ea 03/26/21 duloxetine 30 mg capsule,delayed 30 mg PO DAILY #30 cap 03/26/21 release fenofibrate 54 mg tablet 54 mg PO DAILY #30 tab 03/26/21 gabapentin 300 mg capsule 600 mg PO TID #60 cap 03/26/21 metformin 500 mg tablet,extended 1,000 mg PO BID #60 tab 03/26/21 release 24 hr metoprolol succinate 25 mg 25 mg PO DAILY #30 tab 03/26/21 tablet,extended release 24 hr nicotine 21 mg/24 hr daily 21 mg TRANSDERMAL DAILY #30 ea 03/26/21 transdermal patch quetiapine 100 mg tablet 100 mg PO BEDTIME #30 tab 03/26/21 sucralfate 1 gram tablet (Carafate) 1 g PO QID 30 Days #120 tab 04/13/21 ondansetron 4 mg disintegrating 4 mg PO Q6-8H PRN #14 tab 04/20/21 tablet omeprazole 20 mg capsule,delayed 20 mg PO BID@0630,1630 #60 cap 04/28/21 release Allergies Allergy/AdvReac Type Severity Reaction Status Date / Time No Known Allergies Allergy Verified 05/31/21 11:24 Review of Systems Verdana 4l Review of Systems: Verdana 4d Verdana 4d Constitutional : No Fever, No Chills ENT/Mouth : No Ear Pain, No Nasal Congestion, No sore throat Eyes: No Eye Pain, No Swelling, No Redness Cardiovascular : No Chest Pain, No SOB Respiratory : No Cough, No Sputum, No Dyspnea GastrointestinalGastrointestinal : No Nausea, No Vomiting, No Diarrhea, No Hematochezia, No Melena Genitourinary : No Dysuria, No Urinary Frequency, No Hematuria Musculoskeletal : No Myalgias Skin : No Skin Lesions, No rash Neuro : No Weakness, No Numbness, No Paresthesias, No Dizziness, No Headache Psych : positive Anxiety, positive Depression, positive SI no HI Heme/Lymph: No Lymphadenopathy Endocrine : No Polyuria, No Polydipsia All other systems reviewed and are negative PMFSH Past Medical History Attestation statement: The following information was validated with the patient. Medical History Acute blood loss anemia Cocaine use disorder, moderate, dependence Diabetes HTN (hypertension) MDD (major depressive disorder), recurrent episode, moderate Opioid use disorder, mild, in sustained remission Social History Social History Household Members: None Housing: Apartment Do you presently have visiting nurse or other home services: No Alcohol intake: never Patient Tobacco Use Status: Current everyday Tobacco user Tobacco use type: Cigarette Cigarette Packs Per Day: 2 Cigarettes Per Day: 40.0 Second Hand Smoke Exposure: No Use of substances other than those prescribed or required for medical reasons: Yes Substance Use Type: Crack/Cocaine Advance Directives: No Advance Directives Information Provided: No service: Yes Current occupational status: disabled Sexual orientation: Lesbian/Navarrete/Homosexual Physical Exam Verdana 4l Vital Signs: Verdana 4d Verdana 4d Vital Signs: Verdana 4d Verdana 4Bd Last Vital Signs Verdana 4d Packaging Mechanic New 4d Packaging Mechanic New 4d Temp 97.8 F 05/31/21 14:39 Packaging Mechanic New 4d Pulse 64 05/31/21 14:39 Packaging Mechanic New 4d Resp 17 05/31/21 14:39 BP 150/71 H 05/31/21 14:39 Pulse Ox 99 05/31/21 14:39 BMI result Body Mass Index 25.1 Appearance: Alert. Oriented X3. No acute distress. Eyes: Pupils equal, round and reactive to light. ENT: Pharynx normal. Neck: Normal inspection. Neck supple. CVS: Normal heart rate and rhythm. Pulses normal. Respiratory: No respiratory distress. Breath sounds normal. Abdomen: Soft and non-tender. Skin: Skin warm and dry. Normal skin color. Normal skin turgor. Extremities: No lower extremity edema. No calf ttp Neuro: Oriented X 3. No motor deficit. No sensory deficit. CN 2-12 intact Psych: calm cooperative reports SI Course Course Course Narrative: Physician observation started at 2pm. Patient placed in physician observation because the patient needed more time for [facility] to assess the need for inpatient psychiatry. At the time observation was started the patient's vitals were stable, patient is alert and oriented, Neuro: nonfocal, CV RRR, Lungs clear MDM - Psych MDM Narrative Medical decision making narrative: 60 yo male with hx of acute upper GIB, substance abuse, depression here with c/o depression and SI - using drugs and not taking his medications at this time will obtain basic labs and refer to [facility] Lab Data Result diagrams: 05/31/21 13:14 05/31/21 13:14 Labs: Lab Results 05/31/21 05/31/21 05/31/21 Range/Units 13:14 13:14 13:14 WBC 6.2 (4.8-10.8) X10*3/uL RBC 4.25 L D (4.60-5.80) X10*6/uL Hgb 11.9 L (14.0-18.0) g/dl Hct 36.3 L (42.0-52.0) % MCV 85.4 (80.0-98.0) fL MCH 28.0 (27.0-33.0) pg MCHC 32.8 (31.0-36.0) g/dl RDW 14.2 (11.0-16.0) % Plt Count 221 D (160-400) X10*3/uL MPV 10.0 (9.4-12.4) fL Immature Gran % (Auto) 0.5 H (0.0-0.4) % Neut % (Auto) 64.8 (45-73) % Lymph % (Auto) 23.3 (20-40) % [place] % (Auto) 8.7 (2-11) % Eos % (Auto) 2.2 (0-4) % Baso % (Auto) 0.5 (0-2) % Lymph # (Auto) 1.5 (1.2-4.9) X10*3/uL [place] # (Auto) 0.5 (0.1-1.2) X10*3/uL Eos # (Auto) 0.1 (0.0-0.4) X10*3/uL Baso # (Auto) 0.0 (0.0-0.2) X10*3/uL Abs Immat Gran (auto) 0.03 (0.00-0.03) X10*3/uL Absolute Neuts (auto) 4.0 (2.0-8.3) x10*3/uL Absolute Nucleated RBC 0.000 (0.0-0.012) X10*3/uL Nucleated RBC % (auto) 0.0 (0.0-0.2) /100WBC Sodium 136 (135-145) mmol/L Potassium 4.1 (3.3-5.1) mmol/L Chloride 103 (96-108) mmol/L Carbon Dioxide 26 (22-29) mmol/L Anion Gap 11 L (12-20) BUN 7 L (9-16) mg/dL Creatinine 0.73 (0.5-1.4) mg/dL Estim Creat Clear Calc 110.3 Estimated GFR > 60 Random Glucose 169 H (60-115) mg/dL Calcium 9.5 D (8.4-10.2) mg/dL Total Bilirubin 0.4 (0.0-1.0) mg/dL Direct Bilirubin 0.2 (0.0-0.5) mg/dL AST 25 D (5-37) U/L ALT 30 (0-40) U/L Alkaline Phosphatase 67 D (39-117) U/L Total Protein 6.8 D (6.5-8.0) g/dL Albumin 4.2 D (3.5-5.0) g/dL Ethyl Alcohol mg/dL COVID-19 (TANA) Negative (Negative) COVID-19 Clin Com See Note 05/31/21 Range/Units 14:55 WBC (4.8-10.8) X10*3/uL RBC (4.60-5.80) X10*6/uL Hgb (14.0-18.0) g/dl Hct (42.0-52.0) % MCV (80.0-98.0) fL MCH (27.0-33.0) pg MCHC (31.0-36.0) g/dl RDW (11.0-16.0) % Plt Count (160-400) X10*3/uL MPV (9.4-12.4) fL Immature Gran % (Auto) (0.0-0.4) % Neut % (Auto) (45-73) % Lymph % (Auto) (20-40) % [place] % (Auto) (2-11) % Eos % (Auto) (0-4) % Baso % (Auto) (0-2) % Lymph # (Auto) (1.2-4.9) X10*3/uL [place] # (Auto) (0.1-1.2) X10*3/uL Eos # (Auto) (0.0-0.4) X10*3/uL Baso # (Auto) (0.0-0.2) X10*3/uL Abs Immat Gran (auto) (0.00-0.03) X10*3/uL Absolute Neuts (auto) (2.0-8.3) x10*3/uL Absolute Nucleated RBC (0.0-0.012) X10*3/uL Nucleated RBC % (auto) (0.0-0.2) /100WBC Sodium (135-145) mmol/L Potassium (3.3-5.1) mmol/L Chloride (96-108) mmol/L Carbon Dioxide (22-29) mmol/L Anion Gap (12-20) BUN (9-16) mg/dL Creatinine (0.5-1.4) mg/dL Estim Creat Clear Calc Estimated GFR Random Glucose (60-115) mg/dL Calcium (8.4-10.2) mg/dL Total Bilirubin (0.0-1.0) mg/dL Direct Bilirubin (0.0-0.5) mg/dL AST (5-37) U/L ALT (0-40) U/L Alkaline Phosphatase (39-117) U/L Total Protein (6.5-8.0) g/dL Albumin (3.5-5.0) g/dL Ethyl Alcohol < 10 mg/dL COVID-19 (TANA) (Negative) COVID-19 Clin Com ECG Data Attestation: I personally reviewed and interpreted this ECG as follows: ECG interpretation date: 05/31/21 ECG interpretation time: 12:38 Interpretation: Rate: 71 Rhythm: NSR [place]: normal Normal P waves. Normal NATALIE. Normal QRS complex. ST T wave : normal no KARSON qTC: normal prior studies: no acute ischemia The study has been interpreted contemporaneously by me. . Discharge Plan Discharge Clinical Impression: Suicidal ideation, Polysubstance abuse Patient Disposition: Still a Patient Prescriptions: No Action sucralfate [Carafate] 1 gram tablet 1 g PO QID 30 Days Qty: 120 0RF ondansetron 4 mg tablet,disintegrating 4 mg PO Q6-8H PRN (Reason: nausea and vomiting) Qty: 14 0RF omeprazole 20 mg Capsule,Delayed Release(Dr/Ec) 20 mg PO BID@0630,1630 Qty: 60 0RF atorvastatin 40 mg Tablet 40 mg PO DAILY Qty: 30 0RF quetiapine 100 mg Tablet 100 mg PO BEDTIME Qty: 30 0RF nicotine 21 mg/24 hr Patch 24 Hour 21 mg transdermal DAILY Qty: 30 0RF gabapentin 300 mg Capsule 600 mg PO TID Qty: 60 0RF metoprolol succinate 25 mg Tablet Extended Release 24 Hr 25 mg PO DAILY Qty: 30 0RF Protocol: Hold for SBP/HR < HOLD for SBP < : 90 HOLD for HR < : 60 metformin 500 mg Tablet Extended Release 24 Hr 1,000 mg PO BID Qty: 60 0RF duloxetine 30 mg Capsule,Delayed Release(Dr/Ec) 30 mg PO DAILY Qty: 30 0RF fenofibrate 54 mg Tablet 54 mg PO DAILY Qty: 30 0RF (DME) blood-glucose meter Kit See Rx Instructions .Route Qty: 1 0RF Rx Instructions: As directed
--- NOTE | 2021-05-31 11:08 | ECG_ITS ---
Test Reason : general Blood Pressure : / mmHG Vent. Rate : 071 BPM Atrial Rate : 071 BPM P-R Int : 194 ms QRS Dur : 092 ms QT Int : 388 ms P-R-T Axes : 023 027 047 degrees QTc Int : 421 ms Normal sinus rhythm Likely normal EKG When compared with ECG of 24-APR-2021 10:00, Vent. rate has decreased BY 42 BPM Referred By: Lily Mosqueda Electronically Signed By:GABRIELE CRUZ
[2021-05-31 11:20] VITALS: BP 130/64; BP 152/72; PULSE 64; PULSE 71; RESP 16; TEMP 35.7; O2SAT 96; O2SAT 97; BMI 25.1
--- NOTE | 2021-05-31 11:49 | MHC.CARE ---
Judithmitchell complete
[2021-05-31 13:37] LABS: MANUAL DIFF FLAG NO
[2021-05-31 13:42] LABS: Basophils Percent Auto 0.5 % (0-2); Eosinophils Absolute Auto 0.1 X10*3/uL (0.0-0.4); Eosinophils Percent Auto 2.2 % (0-4); Hematocrit 36.3 % (42.0-52.0); Hemoglobin 11.9 g/dl (14.0-18.0); Imm Gran Abs Auto 0.03 X10*3/uL (0.00-0.03); Imm Gran Pct Auto 0.5 % (0.0-0.4); Lymphocytes Absolute Auto 1.5 X10*3/uL (1.2-4.9); Lymphocytes Percent Auto 23.3 % (20-40); Mean Corpuscular HGB Conc 32.8 g/dl (31.0-36.0); Mean Corpuscular Volume 85.4 fL (80.0-98.0); Monocytes Absolute Auto 0.5 X10*3/uL (0.1-1.2); Monocytes Percent Auto 8.7 % (2-11); Neutrophils Percent Auto 64.8 % (45-73); Platelet Count 221 X10*3/uL (160-400); Red Blood Count 4.25 X10*6/uL (4.60-5.80); Red Cell Distribution Width 14.2 % (11.0-16.0); White Blood Count 6.2 X10*3/uL (4.8-10.8)
[2021-05-31 13:54] LABS: Alanine Aminotransferase 30 U/L (0-40); Albumin Level 4.2 g/dL (3.5-5.0); Alkaline Phosphatase 67 U/L (39-117); Anion Gap 11 (12-20); Aspartate Amino Transferase 25 U/L (5-37); Bilirubin Direct 0.2 mg/dL (0.0-0.5); Bilirubin Total 0.4 mg/dL (0.0-1.0); Blood Urea Nitrogen 7 mg/dL (9-16); Calcium 9.5 mg/dL (8.4-10.2); Carbon Dioxide 26 mmol/L (22-29); Chloride 103 mmol/L (96-108); Creatinine Clr Calc Pharmacy 110.3; Estimated Glomerular Filt Rate > 60; Glucose Random 169 mg/dL (60-115); Potassium 4.1 mmol/L (3.3-5.1); Sodium 136 mmol/L (135-145); Total Protein 6.8 g/dL (6.5-8.0)
[2021-05-31 13:55] LABS: COVID-19 Test Negative (Negative)
--- NOTE | 2021-05-31 14:28 | PC.NURSE ---
pt seen by [facility], pt aware of plan of care.
[2021-05-31 14:39] VITALS: BP 150/71; PULSE 64; RESP 17; TEMP 36.6; O2SAT 99
[2021-05-31 15:18] LABS: Ethanol < 10 mg/dL
[2021-05-31 16:58] VITALS: BP 127/67; PULSE 76; RESP 14; TEMP 36.6; O2SAT 97
[2021-05-31 18:17] LABS: Amphetamine Screen Urine Not Detected (Not Detect); Barbiturates, Urine Not Detected (Not Detect); Benzodiazepines Screen Urine Not Detected (Not Detect); Cannabinoid Screen Urine Not Detected (Not Detect); Cocaine Screen Urine POSITIVE (Not Detect); Fentanyl, urine Not Detected (Not Detect); Opiate Screen Urine Not Detected (Not Detect); Phencyclidine Screen Urine Not Detected (Not Detect)
[2021-05-31 19:53] VITALS: BP 145/68; PULSE 74; RESP 18; TEMP 36.9; O2SAT 97
[2021-05-31 21:56] VITALS: BP 140/63; PULSE 73; RESP 17; TEMP 36.9; O2SAT 97
[2021-05-31] MEDS: QUEtiapine Fumarate 100 MG TABLET PO (22:26)
--- NOTE | 2021-06-01 02:25 | PC.NURSE ---
I assumed care of this pt at 1900. Since that time the pt has had 1:1 med tech at bedside at all times due to suicidal ideation. The pt is calm, cooperative, makes eye contact with RN and has a normal affect. He has no complaints - no chest pain, no SOB, no nausea or vomiting, no headaches or lightheadedness. Respirations appear spontaneous and non-labored and he speaks in full sentences without difficulty. He has been taking PO food, fluids and meds without difficulty. Matthew is aware that a bed search is underway for him and he verbalizes an understanding of this.
[2021-06-01 02:54] VITALS: RESP 16
[2021-06-01 06:54] VITALS: RESP 18
--- NOTE | 2021-06-01 07:32 | PC.NURSE ---
PT IS AWAKE AND EATING BREAKFAST.
[2021-06-01 08:21] VITALS: BP 126/77; PULSE 85; RESP 18; O2SAT 97
--- NOTE | 2021-06-01 08:25 | PC.NURSE ---
PT REPORTS HE IS WHEELCHAIR DEPENDENT FOR MOBILITY. HE STATES HE HAS MUSCULOSKELETAL LIMITATIONS. HE DOES STATE HE CAN TOLERATE AND PERFORM TRANSFERS AT HOME INDEPENDENTLY
[2021-06-01] MEDS: Gabapentin 300 MG CAPSULE 600 MG PO ×3 (08:38→20:01)
[2021-06-01] MEDS: DULoxetine HCl 30 MG CAPSULE.DR PO (08:39)
[2021-06-01] MEDS: Omeprazole 20 MG CAPSULE.DR PO ×2 (08:39→17:00)
[2021-06-01] MEDS: Atorvastatin Calcium 40 MG TABLET PO (08:39)
[2021-06-01] MEDS: Sucralfate 1 GM TABLET PO ×4 (08:40→20:03)
[2021-06-01] MEDS: metFORMIN HCl ER 500 MG TAB.ER.24H 1000 MG PO ×2 (08:40→20:02)
[2021-06-01] MEDS: Metoprolol Succinate ER 25 MG TAB.ER.24H PO (08:45)
[2021-06-01] MEDS: Fenofibrate 54 MG TABLET PO (09:16)
--- NOTE | 2021-06-01 10:22 | PC.NURSE ---
PLAN IS FOR M5 ADMISSION
--- NOTE | 2021-06-01 10:30 | PC.NURSE ---
REPORT GIVEN FOR M5 ADMISSION
--- NOTE | 2021-06-01 11:31 | HO.PSYADMNOT ---
HPI Date of Service: 06/01/21 Chief Complaint: si depression Sources of Information: patient interviewed, chart reviewed and crisis/core team assessment reviewed HPI Subjective Notes: Gomez Warning and Conditional Voluntary Healthcare Proxy: No Guardianship: No Medical Problems Affecting Mental Status: No Narrative: Matthew is a 60 y.o. Male who carries a dx of MDD, recurrent and polysubstance abuse. He presented to crisis on 05/31/21 at [facility] ED due to reporting depression, SI with thoughts of ?running my wheelchair under a tractor trailer and this morning I was thinking about cutting my throat or stabbing myself in the chest. Precipitating factors include that he has been in physical pain, has experienced multiple losses with anniversaries in May (niece, brother in law, and sister), and pt has lack of social support. He has no OP psych providers at this time. Pt ambulates in a wheelchair due to reporting hx of fractured leg that he says never set correctly. He also reports R shoulder pain, DM, and HTN. Pt has been non-adherent with medications, which are prescribed by PCP at [facility] in [place], and using crack cocaine. Utox positive for cocaine. Reviewed EKG, QTc 421, NSR. Hx of MAT, was on suboxone during prev [facility] admission, saw Dina Jones. Will re-consult as pt would like to get back on suboxone. I evaluated the pt this morning and upon interview he reports he relapsed on cocaine on 05/28/21 and used $800 worth via smoking prior to coming in, ?I kept going, going, going,? was ?chasing the dragon.? Sleep is ?okay,? says ?I sleep too much.? Identifies precipitating factors as ?I cant walk or do nothing,? says he feels ?very depressed? and is in pain. Pt reports having severe arthritis in left ankle, has screws in his ankle after breaking it about 8 yrs ago and says ?it healed wrong? and ?cant stand up too long.? Pt reports he has had chronic pain for a long time due to doing ?a lot of damage to my body,? says he fell from a third story window when he was younger and has ?broken a lot of bones? over the years. Pt reports his mood is ?bad? and he still has thoughts of self harm with ?all kinds? of plans, but denies self harm and says he feels safe here. Pt denies that gabapentin helps with the pain, ?I wish they would put me on something else.? Has been off his psych meds for a couple days. Has hx of VNA and is waiting to get into the [facility] program in June. Pt denies psychotic sx. No hx of manic or hypomanic episodes endorsed. Appetite is okay. Denies cravings or withdrawal for cocaine at this time. Past Psychiatric History: -No current OP providers -Hx of IPLOC, last at [facility] M5 in Feb 2021. Hx of IPLOC at [facility] in [facility]. -Suicide attempts: none -Past medication trials: seroquel, cymbalta, gabapentin Medical Evaluation Reviewed: Yes [facility] Medical History (Updated 06/03/21 @ 08:36 by Praveena Falcon NP) Acute blood loss anemia Cocaine use disorder, moderate, dependence Diabetes HTN (hypertension) MDD (major depressive disorder), recurrent episode, moderate Opioid use disorder, mild, in sustained remission Family History: uncle- completed suicide Social History: -Pt for 30 years with male partner, now but states they are somewhat close. -No children. Served in . -Pt lives alone, waiting to get into the [facility] -He has limited social supports. Per chart, he had 6 siblings but all are except a brother in [place] who he does not talk to. Substance History: -Cannabis: onset age 13, occasional use -Cocaine/ crack: onset age 16, uses 1-2 times a month. -ETOH: says he is sober x 7-8 years. Trauma History: denies Diagnostics Vital Signs (24Hr): Vital Signs - 24 hr 06/01/21 17:20 06/02/21 08:39 Temperature 97.8 F Pulse Rate 70 77 Respiratory Rate 16 Blood Pressure 144/67 H 123/72 BMI result Body Mass Index 25.1 Labs Results: 05/31/21 13:14 05/31/21 13:14 Labs: Laboratory Results - last 48 hr 05/31/21 05/31/21 05/31/21 13:14 13:14 13:14 WBC 6.2 RBC 4.25 L D Hgb 11.9 L Hct 36.3 L MCV 85.4 MCH 28.0 MCHC 32.8 RDW 14.2 Plt Count 221 D MPV 10.0 Immature Gran % (Auto) 0.5 H Neut % (Auto) 64.8 Lymph % (Auto) 23.3 [place] % (Auto) 8.7 Eos % (Auto) 2.2 Baso % (Auto) 0.5 Lymph # (Auto) 1.5 [place] # (Auto) 0.5 Eos # (Auto) 0.1 Baso # (Auto) 0.0 Abs Immat Gran (auto) 0.03 Absolute Neuts (auto) 4.0 Absolute Nucleated RBC 0.000 Nucleated RBC % (auto) 0.0 Sodium 136 Potassium 4.1 Chloride 103 Carbon Dioxide 26 Anion Gap 11 L BUN 7 L Creatinine 0.73 Estim Creat Clear Calc 110.3 Estimated GFR > 60 Random Glucose 169 H Calcium 9.5 D Magnesium Total Bilirubin 0.4 Direct Bilirubin 0.2 AST 25 D ALT 30 Alkaline Phosphatase 67 D Total Protein 6.8 D Albumin 4.2 D Triglycerides Cholesterol LDL Cholesterol, Calc HDL Cholesterol TSH Free T4 Urine Opiates Screen Urine Fentanyl Screen Ur Barbiturates Screen Ur Phencyclidine Scrn Ur Amphetamines Screen U Benzodiazepines Scrn Urine Cocaine Screen U Marijuana (THC) Screen Ethyl Alcohol COVID-19 (TANA) Negative COVID-19 Clin Com See Note 05/31/21 05/31/21 06/02/21 14:55 17:56 07:55 WBC RBC Hgb Hct MCV MCH MCHC RDW Plt Count MPV Immature Gran % (Auto) Neut % (Auto) Lymph % (Auto) [place] % (Auto) Eos % (Auto) Baso % (Auto) Lymph # (Auto) [place] # (Auto) Eos # (Auto) Baso # (Auto) Abs Immat Gran (auto) Absolute Neuts (auto) Absolute Nucleated RBC Nucleated RBC % (auto) Sodium Potassium Chloride Carbon Dioxide Anion Gap BUN Creatinine Estim Creat Clear Calc Estimated GFR Random Glucose Calcium Magnesium 1.5 L Total Bilirubin Direct Bilirubin AST ALT Alkaline Phosphatase Total Protein Albumin Triglycerides 367 Cholesterol 118 D LDL Cholesterol, Calc 24 HDL Cholesterol 21 TSH 1.16 Free T4 0.76 Urine Opiates Screen Not Detected Urine Fentanyl Screen Not Detected Ur Barbiturates Screen Not Detected Ur Phencyclidine Scrn Not Detected Ur Amphetamines Screen Not Detected U Benzodiazepines Scrn Not Detected Urine Cocaine Screen POSITIVE H U Marijuana (THC) Screen Not Detected Ethyl Alcohol < 10 COVID-19 (TANA) COVID-19 Clin Com Meds/Allergies Meds Home Medications Acetaminophen (Acetaminophen 325 Mg Tablet) 650 mg PO Q6H PRN PRN Reason: Headache/Pain Mild Scale (1-3) Last Admin: 06/01/21 17:15 Dose: 650 mg Documented by: Al Hydroxide/Mg Hydroxide (Magnesium Hydrox/Alum Hydrox 30 Ml Oral.Susp) 30 ml PO Q6H PRN PRN Reason: Heartburn/Nausea Atorvastatin Calcium (Atorvastatin Calcium 40 Mg Tablet) 40 mg PO DAILY [facility] Last Admin: 06/02/21 09:03 Dose: 40 mg Documented by: Duloxetine HCl (Duloxetine Hcl 30 Mg Capsule.) 30 mg PO DAILY [facility] Last Admin: 06/02/21 09:03 Dose: 30 mg Documented by: Fenofibrate (Fenofibrate 54 Mg Tablet) 54 mg PO DAILY [facility] Last Admin: 06/02/21 09:03 Dose: 54 mg Documented by: Gabapentin (Gabapentin 300 Mg Capsule) 600 mg PO TID [facility] Last Admin: 06/02/21 20:50 Dose: 600 mg Documented by: Hydroxyzine HCl (Hydroxyzine Hcl 25 Mg Tablet) 25 mg PO Q6H PRN PRN Reason: Anxiety Magnesium Hydroxide (Milk Of Magnesia 30 Ml Oral.Susp) 30 ml PO DAILY PRN PRN Reason: Constipation Metformin HCl (Metformin Hcl Er 500 Mg Tab.Er.24h) 1,000 mg PO BID [facility] Last Admin: 06/02/21 20:50 Dose: 1,000 mg Documented by: Metoprolol Succinate (Metoprolol Succinate Er 25 Mg Tab.Er.24h) 25 mg PO DAILY [facility]; Protocol Last Admin: 06/02/21 09:03 Dose: 25 mg Documented by: Nicotine (Nicotine 21 Mg Patch.Td24) 21 mg TRANSDERMA DAILY [facility] Last Admin: 06/02/21 09:06 Dose: Not Given Documented by: Omeprazole (Omeprazole 20 Mg Capsule.) 20 mg PO BID@0630,1630 [facility] Last Admin: 06/03/21 06:06 Dose: 20 mg Documented by: Ondansetron HCl (Ondansetron Odt 4 Mg Tab.Rapdis) 4 mg TRANSLINGU Q6H PRN PRN Reason: nausea and vomiting Quetiapine Fumarate (Quetiapine Fumarate 100 Mg Tablet) 100 mg PO BEDTIME SHARA Last Admin: 06/02/21 20:51 Dose: 100 mg Documented by: Quetiapine Fumarate (Quetiapine Fumarate 50 Mg Tablet) 50 mg PO Q6H PRN PRN Reason: agitation, anxiety Last Admin: 06/02/21 15:19 Dose: 50 mg Documented by: Sucralfate (Sucralfate 1 Gm Tablet) 1 gm PO QID SHARA Last Admin: 06/02/21 20:51 Dose: 1 gm Documented by: Trazodone HCl (Trazodone Hcl 50 Mg Tablet) 50 mg PO BEDTIME PRN PRN Reason: Insomnia Last Admin: 06/01/21 20:03 Dose: 50 mg Documented by: Allergies Allergies Allergy/AdvReac Type Severity Reaction Status Date / Time No Known Allergies Allergy Verified 05/31/21 11:24 Mental Status Exam Mental Status Exam Narrative: A&O. Pt unkempt, lying down in bed, hair is long. Good eye contact, attentive. No Tics or Tremors. No abnormal involuntary movements. Calm, cooperative, engaged. Non-pressured speech, spontaneous with regular rate and rhythm, normal volume and prosody. No prolonged speech latency. Notable dysarthria, has missing teeth. Mood is ?depressed,? affect is tired, somewhat blunted. Denies SI/SIB/HI upon inquiry. Denies A/VH or delusional thought content. Thoughts are coherent, organized. No known cognitive or memory impairment. Insight/ Judgment fair and adequate. Assessment & Plan Assessment & Plan (1) Opioid use disorder, mild, in sustained remission: Status: Acute Code(s): F11.11 - Opioid abuse, in remission (2) Cocaine use disorder: Status: Acute Code(s): F14.10 - Cocaine abuse, uncomplicated Plan Matthew is a 60 y.o. Male who carries a dx of MDD, recurrent and polysubstance abuse. He presented to crisis on 05/31/21 at [facility] ED due to reporting depression, SI. Has chronic pain issues and ambulates in a wheelchair. Hx of MAT, was on suboxone during prev [facility] admission. Hx of crack cocaine abuse, recently relapsed on 05/28/21 and has been non-adherent with psych meds for a couple days. No OP psych providers, obtains medications from PCP at [facility] in [place]. Pt is awaiting placement at [facility] in June. Hx of VNA. Plan: Continue on OP med regimen, as pt reports positive benefit on cymbalta for mood sx and does not want changes at this time. Pt says seroquel helps with sleep. Will start seroquel 50 mg Q6H PRN for anxiety, agitation as pt reports he is struggling with anxiety. Sleep is good. Will place addiction consult due to pt wanting to re-start suboxone. Monitor response to medications. Monitor for safety in the milieu. Discharge on stabilization. Patient seen. Chart reviewed. Discussed with team. Obtain collateral contact info?as needed Patient educated on: medication risk/benefits and therapeutic strategies Reason for continued inpatient stay Substantial Risk for: harm to self, rapid decompensation and med/psych decompensation
--- NOTE | 2021-06-01 14:08 | PC.NURSE ---
pt has not received flu vaccination. pt refuses flu vaccine during admission.
--- NOTE | 2021-06-01 15:03 | PC.ADMIT ---
PT IS A 60 YEAR OLD, SINGLE, HOMOSEXUAL MALE BROUGHT TO THE ED BY AMBULANCE TO BE SEEN FOR A VOLUNTARY CRISIS EVALUATION. PT HAS BEEN PLACED ON CLOSE OBSERVATIONS DUE TO BEING WHEELCHAIR BOUND. HE IS COVID NEGATIVE. PSYCH/DUAL GROUPS. PT IS RECENTLY WHEELCHAIR BOUND DUE TO WEAKNESS OF HIS LOWER EXTREMITIES BUT IS ABLE TO STAND FOR SHORT TIMES AND PIVOT HIS BODY WEIGHT. PT IS A CONDITIONAL VOLUNTARY. HE DOES NEED ASSISTANCE WITH A MAJORITY OF HIS ADLS. PTS MEDICAL PROBLEMS INCLUDE AN UPPER GI BLEED WHICH HE IS NOT CURRENTLY COMPLAINING OF PAIN FROM. PT LIVES ALONE IN AN APARTMENT AND REPORTED THAT HIS NURSING ASSISTANCES TO HELP WITH MEDS WERE DISCONTINUED SO HE HAS NOT BEEN TAKING MEDICATIONS. PT DOES NOT CURRENTLY HAVE A PCP (PREVIOUSLY WENT TO [facility]), THERAPIST, OR PSYCHIATRIST. PT IS GOAL ORIENTED AND INTERESTED IN SUPPORT SERVICES WELL MEDICATION MANAGEMENT. PT CURRENTLY SMOKES APPROXIMATELY 2 PACKS OF CIGARETTES PER DAY. HIS NICOTINE REPLACEMENT HAS BEEN ORDERED AND A SMOKING CESSATION CONSULT HAS BEEN PLACED. PTS TOX SCREEN WAS POSITIVE FOR COCAINE. HIS EKG WAS NORMAL. PT IS EX . HE HAS NO KNOWN ALLERGIES AND VITAL SIGNS ARE STABLE. PT REPORTS HAVING SI WITH A PLAN TO SLIT HIS THROAT OR STAB HIMSELF IN THE CHEST. PT DENIES HI. HE DENIES AH OR VH. PT IS ABLE TO SEEK STAFF IF FEELING UNSAFE. PT REPORTS SEVERE DEPRESSION DUE TO THE TIME OF YEAR. HIS BIRTHDAY IS THIS MONTH AND MANY OF HIS FAMILY MEMBERS IN THE MONTH OF MAY. PT HAS NO SUPPORT SYSTEM OTHER THAN HIS ONE FRIEND. HIS FRIEND, HEATHER HAS BEEN NOTIFIED OF HIS ADMISSION. PT REPORTS IMPAIRED SLEEP AND APPETITE DUE TO DEPRESSION. PT FEELS HELPLESS AND HOPELESS. HIS SAFETY TOOL AND TREATMENT PLAN HAVE BEEN COMPLETED.
[2021-06-01] MEDS: Acetaminophen 325 MG TABLET 650 MG PO (17:15)
[2021-06-01] MEDS: QUEtiapine Fumarate 50 MG TABLET PO (17:16)
[2021-06-01 17:20] VITALS: BP 144/67; PULSE 70; TEMP 36.6
[2021-06-01] MEDS: traZODone HCL 50 MG TABLET PO (20:03)
[2021-06-01] MEDS: QUEtiapine Fumarate 100 MG TABLET PO (20:04)
[2021-06-02] MEDS: Omeprazole 20 MG CAPSULE.DR PO ×2 (06:58→17:42)
[2021-06-02 08:39] VITALS: BP 123/72; PULSE 77; RESP 16
[2021-06-02 08:43] LABS: Cholesterol 118 mg/dL; HDL Cholesterol 21 mg/dL; LDL Cholesterol Calculated 24 mg/dl; Magnesium 1.5 mg/dL (1.6-2.6); Triglycerides 367 mg/dL
[2021-06-02 08:58] LABS: Free T4 (Free Thyroxine) 0.76 ng/dL (0.71-1.85); Thyroid Stimulating Hormone 1.16 uIU/mL (0.32-4.0)
[2021-06-02] MEDS: Atorvastatin Calcium 40 MG TABLET PO (09:03)
[2021-06-02] MEDS: QUEtiapine Fumarate 50 MG TABLET PO ×2 (09:03→15:19)
[2021-06-02] MEDS: Gabapentin 300 MG CAPSULE 600 MG PO ×3 (09:03→20:50)
[2021-06-02] MEDS: Sucralfate 1 GM TABLET PO ×4 (09:03→20:51)
[2021-06-02] MEDS: Fenofibrate 54 MG TABLET PO (09:03)
[2021-06-02] MEDS: metFORMIN HCl ER 500 MG TAB.ER.24H 1000 MG PO ×2 (09:03→20:50)
[2021-06-02] MEDS: DULoxetine HCl 30 MG CAPSULE.DR PO (09:03)
[2021-06-02] MEDS: Metoprolol Succinate ER 25 MG TAB.ER.24H PO (09:03)
--- NOTE | 2021-06-02 11:54 | P.PNPSI_ITS ---
Subjective Subjective Date of Service: 06/02/21 Reason For Visit: si depression Interim History: Patient seen and discussed with team. Pt ambulates in wheelchair, has been mostly isolative in bed in his room. Patient evaluated this morning and upon interview he reports his sleep is good. He has no questions or concerns. Says seroquel 50 mg PRN helped me relax, appreciative of this. Says he is just waiting for [facility], referring to the [employer] program that he will be accepted into in June. In the milieu, patient is safe but withdrawn in behavior. Denies SI/SIB/HI upon inquiry. Denies irritability or assaultive ideation. Says he feels safe. Medication Compliance: Yes Side effects from medications: No Attending Groups: No Review of Systems Acute medical concerns: No Medical Review of Systems: unchanged Mental Status Exam Mental Status Exam Narrative: A&O. Pt unkempt, lying down in bed, hair is long. Good eye contact, attentive. No Tics or Tremors. No abnormal involuntary movements. Calm, cooperative, engaged. Non-pressured speech, spontaneous with regular rate and rhythm, normal volume and prosody. No prolonged speech latency. Notable dysarthria, has missing teeth. Mood is ?depressed,? affect is tired, somewhat blunted. Denies SI/SIB/HI upon inquiry. Denies A/VH or delusional thought content. Thoughts are coherent, organized. No known cognitive or memory impairment. Insight/ Judgment fair and adequate. Diagnostics Vital Signs (24Hr): Vital Signs - 24 hr 06/01/21 17:20 06/02/21 08:39 Temperature 97.8 F Pulse Rate 70 77 Respiratory Rate 16 Blood Pressure 144/67 H 123/72 BMI result [place] 4 Body Mass Index Verdana 4 25.1 Verdana 4 Verdana 4 Labs Results: 05/31/21 13:14 05/31/21 13:14 Labs: Laboratory Results - last 48 hr 05/31/21 05/31/21 05/31/21 13:14 13:14 13:14 WBC 6.2 RBC 4.25 L D Hgb 11.9 L Hct 36.3 L MCV 85.4 MCH 28.0 MCHC 32.8 RDW 14.2 Plt Count 221 D MPV 10.0 Immature Gran % (Auto) 0.5 H Neut % (Auto) 64.8 Lymph % (Auto) 23.3 [place] % (Auto) 8.7 Eos % (Auto) 2.2 Baso % (Auto) 0.5 Lymph # (Auto) 1.5 [place] # (Auto) 0.5 Eos # (Auto) 0.1 Baso # (Auto) 0.0 Abs Immat Gran (auto) 0.03 Absolute Neuts (auto) 4.0 Absolute Nucleated RBC 0.000 Nucleated RBC % (auto) 0.0 Sodium 136 Potassium 4.1 Chloride 103 Carbon Dioxide 26 Anion Gap 11 L BUN 7 L Creatinine 0.73 Estim Creat Clear Calc 110.3 Estimated GFR > 60 Random Glucose 169 H Calcium 9.5 D Magnesium Total Bilirubin 0.4 Direct Bilirubin 0.2 AST 25 D ALT 30 Alkaline Phosphatase 67 D Total Protein 6.8 D Albumin 4.2 D Triglycerides Cholesterol LDL Cholesterol, Calc HDL Cholesterol TSH Free T4 Urine Opiates Screen Urine Fentanyl Screen Ur Barbiturates Screen Ur Phencyclidine Scrn Ur Amphetamines Screen U Benzodiazepines Scrn Urine Cocaine Screen U Marijuana (THC) Screen Ethyl Alcohol COVID-19 (TANA) Negative COVID-19 Clin Com See Note 05/31/21 05/31/21 06/02/21 14:55 17:56 07:55 WBC RBC Hgb Hct MCV MCH MCHC RDW Plt Count MPV Immature Gran % (Auto) Neut % (Auto) Lymph % (Auto) [place] % (Auto) Eos % (Auto) Baso % (Auto) Lymph # (Auto) [place] # (Auto) Eos # (Auto) Baso # (Auto) Abs Immat Gran (auto) Absolute Neuts (auto) Absolute Nucleated RBC Nucleated RBC % (auto) Sodium Potassium Chloride Carbon Dioxide Anion Gap BUN Creatinine Estim Creat Clear Calc Estimated GFR Random Glucose Calcium Magnesium 1.5 L Total Bilirubin Direct Bilirubin AST ALT Alkaline Phosphatase Total Protein Albumin Triglycerides 367 Cholesterol 118 D LDL Cholesterol, Calc 24 HDL Cholesterol 21 TSH 1.16 Free T4 0.76 Urine Opiates Screen Not Detected Urine Fentanyl Screen Not Detected Ur Barbiturates Screen Not Detected Ur Phencyclidine Scrn Not Detected Ur Amphetamines Screen Not Detected U Benzodiazepines Scrn Not Detected Urine Cocaine Screen POSITIVE H U Marijuana (THC) Screen Not Detected Ethyl Alcohol < 10 COVID-19 ([facility]NA) COVID-19 Clin Com Medications Medications Current Medications Acetaminophen (Acetaminophen 325 Mg Tablet) 650 mg PO Q6H PRN PRN Reason: Headache/Pain Mild Scale (1-3) Last Admin: 06/01/21 17:15 Dose: 650 mg Documented by: Al Hydroxide/Mg Hydroxide (Magnesium Hydrox/Alum Hydrox 30 Ml Oral.Susp) 30 ml PO Q6H PRN PRN Reason: Heartburn/Nausea Atorvastatin Calcium (Atorvastatin Calcium 40 Mg Tablet) 40 mg PO DAILY [facility] Last Admin: 06/02/21 09:03 Dose: 40 mg Documented by: Duloxetine HCl (Duloxetine Hcl 30 Mg Capsule.) 30 mg PO DAILY [facility] Last Admin: 06/02/21 09:03 Dose: 30 mg Documented by: Fenofibrate (Fenofibrate 54 Mg Tablet) 54 mg PO DAILY [facility] Last Admin: 06/02/21 09:03 Dose: 54 mg Documented by: Gabapentin (Gabapentin 300 Mg Capsule) 600 mg PO TID [facility] Last Admin: 06/02/21 09:03 Dose: 600 mg Documented by: Hydroxyzine HCl (Hydroxyzine Hcl 25 Mg Tablet) 25 mg PO Q6H PRN PRN Reason: Anxiety Magnesium Hydroxide (Milk Of Magnesia 30 Ml Oral.Susp) 30 ml PO DAILY PRN PRN Reason: Constipation Metformin HCl (Metformin Hcl Er 500 Mg Tab.Er.24h) 1,000 mg PO BID [facility] Last Admin: 06/02/21 09:03 Dose: 1,000 mg Documented by: Metoprolol Succinate (Metoprolol Succinate Er 25 Mg Tab.Er.24h) 25 mg PO DAILY [facility]; Protocol Last Admin: 06/02/21 09:03 Dose: 25 mg Documented by: Nicotine (Nicotine 21 Mg Patch.Td24) 21 mg TRANSDERMA DAILY [facility] Last Admin: 06/02/21 09:06 Dose: Not Given Documented by: Omeprazole (Omeprazole 20 Mg Capsule.) 20 mg PO BID@0630,1630 [facility] Last Admin: 06/02/21 06:58 Dose: 20 mg Documented by: Ondansetron HCl (Ondansetron Odt 4 Mg Tab.Rapdis) 4 mg TRANSLINGU Q6H PRN PRN Reason: nausea and vomiting Quetiapine Fumarate (Quetiapine Fumarate 100 Mg Tablet) 100 mg PO BEDTIME [facility] Last Admin: 06/01/21 20:04 Dose: 100 mg Documented by: Quetiapine Fumarate (Quetiapine Fumarate 50 Mg Tablet) 50 mg PO Q6H PRN PRN Reason: agitation, anxiety Last Admin: 06/02/21 09:03 Dose: 50 mg Documented by: Sucralfate (Sucralfate 1 Gm Tablet) 1 gm PO QID [facility] Last Admin: 06/02/21 09:03 Dose: 1 gm Documented by: Trazodone HCl (Trazodone Hcl 50 Mg Tablet) 50 mg PO BEDTIME PRN PRN Reason: Insomnia Last Admin: 06/01/21 20:03 Dose: 50 mg Documented by: Allergies Allergies Allergy/AdvReac Type Severity Reaction Status Date / Time No Known Allergies Allergy Verified 05/31/21 11:24 Assessment & Plan Assessment & Plan (1) Cocaine use disorder: Status: Acute Code(s): F14.10 - Cocaine abuse, uncomplicated (2) MDD (major depressive disorder), recurrent episode, moderate: Status: Acute Code(s): F33.1 - Major depressive disorder, recurrent, moderate (3) Opioid use disorder, mild, in sustained remission: Status: Acute Code(s): F11.11 - Opioid abuse, in remission Plan Matthew is a 60 y.o. Male who carries a dx of MDD, recurrent and polysubstance abuse. He presented to crisis on 05/31/21 at [facility] [place] ED due to reporting depression, SI. Has chronic pain issues and ambulates in a wheelchair. Hx of MAT, was on suboxone during prev [facility] admission. Hx of crack cocaine abuse, recently relapsed on 05/28/21 and has been non-adherent with psych meds for a couple days. No OP psych providers, obtains medications from PCP at [facility] in [place]. Pt is awaiting placement at [facility] in June. Hx of VNA. Plan: Continue on OP med regimen, as pt reports positive benefit on cymbalta for mood sx and does not want changes at this time. Pt says seroquel helps with sleep. Will start seroquel 50 mg Q6H PRN for anxiety, agitation as pt reports he is struggling with anxiety. Sleep is good. Will place addiction consult due to pt wanting to re-start suboxone. 06/02: No changes, pt is resting Monitor response to medications. Monitor for safety in the milieu. Discharge on stabilization. Patient seen. Chart reviewed. Discussed with team. Obtain collateral contact info?as needed I spent minutes with the patient and/or on the patient floor today, greater than?50% of which was spent counseling/coordinating care. Reason for contiued inpatient stay Substantial Risk for: harm to self, rapid decompensation and med/psych decompensation
[2021-06-02 19:00] VITALS: BP 127/62; PULSE 89
[2021-06-02] MEDS: QUEtiapine Fumarate 100 MG TABLET PO (20:51)
[2021-06-03 06:00] VITALS: BP 115/74; PULSE 97; RESP 18; TEMP 36.6; O2SAT 96
[2021-06-03] MEDS: Omeprazole 20 MG CAPSULE.DR PO ×2 (06:06→17:02)
[2021-06-03 07:33] LABS: Estimated Average Glucose 146 mg/dL; Hemoglobin A1C 152.4369 umol/L; Hemoglobin A1c % 6.7 %
[2021-06-03] MEDS: metFORMIN HCl ER 500 MG TAB.ER.24H 1000 MG PO ×2 (08:44→20:49)
[2021-06-03] MEDS: DULoxetine HCl 30 MG CAPSULE.DR PO (08:44)
[2021-06-03] MEDS: Atorvastatin Calcium 40 MG TABLET PO (08:44)
[2021-06-03] MEDS: Gabapentin 300 MG CAPSULE 600 MG PO ×3 (08:44→20:50)
[2021-06-03] MEDS: Sucralfate 1 GM TABLET PO ×3 (08:44→20:51)
[2021-06-03] MEDS: Fenofibrate 54 MG TABLET PO (08:44)
[2021-06-03] MEDS: Metoprolol Succinate ER 25 MG TAB.ER.24H PO (08:44)
[2021-06-03] MEDS: QUEtiapine Fumarate 50 MG TABLET PO ×2 (08:46→14:52)
[2021-06-03 08:56] VITALS: BP 109/67; PULSE 69; RESP 14; O2SAT 95
[2021-06-03 09:00] LABS: Folate 6.2 ng/mL (> or = 4.0); Vitamin B12 424 pg/mL (200-900)
[2021-06-03 12:30] LABS: Glucose, Whole Blood 162 mg/dL (60-115)
--- NOTE | 2021-06-03 15:31 | P.PNPSI_ITS ---
Subjective Subjective Date of Service: 06/03/21 Reason For Visit: si depression Interim History: Matthew is talkative and well engaged today. Reports May is difficult as it is the anniversary of his niece, sister and brother's passings as well as his birthday. Pt reports he plans to joing [facility] program on 06/25 and will continue with Bryanna GALLARDO at home until that time. Reports increase in sleep, positive SI and hopelessness due to inability to ambulate as no one is able to work with his leg injuries. Medication Compliance: Yes Side effects from medications: No Attending Groups: No Review of Systems Acute medical concerns: No Medical Review of Systems: unchanged Review of Systems Reports behavioral changes Psychiatric: Reports abnormal sleep pattern, Reports anxiety, Reports behavioral changes, Reports depression, Reports difficulty concentrating, Reports paranoia and Reports suicidal ideation Mental Status Exam Mental Status Exam Patient Appearance: Fatigued Patient Orientation: Person, Place, Time and Situation Level of Consciousness: Alert Patient Behavior: Talkative, Cooperative and Good Eye Contact Mood Description: Depressed and Anxious Affect Description: Flat Patient Cognition Impaired: No Ability to Follow Directions: Good Speech Pattern: Spontaneous Speech Memory Description: Episodic Impaired Hallucinations: None Delusions: Not Present Perceptual Disturbances: Depersonalization and Derealization Thought Process: Distracted and Goal Oriented Thought Content: positive for [place], positive for Circumstantial and positive for Goal Oriented Depressive Symptoms: Increased Anxiety, Sleeping More Than Usual, Thoughts of /Suicide and Difficulty Concentrating Abnormal Motor Activity Signs and Symptoms: Restlessness Judgement: Fair Diagnostics Vital Signs (24Hr): Vital Signs - 24 hr 06/02/21 19:00 06/03/21 06:00 06/03/21 08:56 Temperature 97.9 F Pulse Rate 89 97 69 Respiratory Rate 18 14 Blood Pressure 127/62 115/74 109/67 Pulse Oximetry 96 95 BMI result Body Mass Index 25.1 Labs Results: 05/31/21 13:14 05/31/21 13:14 Labs: Laboratory Results - last 48 hr 06/02/21 06/02/21 06/02/21 07:55 07:55 07:55 POC Glucose Estimat Average Glucose 146 Hemoglobin A1c % 6.7 Magnesium 1.5 L Triglycerides 367 Cholesterol 118 D LDL Cholesterol, Calc 24 HDL Cholesterol 21 Vitamin B12 424 Folate 6.2 TSH 1.16 Free T4 0.76 06/03/21 12:26 POC Glucose 162 H Estimat Average Glucose Hemoglobin A1c % Magnesium Triglycerides Cholesterol LDL Cholesterol, Calc HDL Cholesterol Vitamin B12 Folate TSH Free T4 Medications Medications Current Medications Acetaminophen (Acetaminophen 325 Mg Tablet) 650 mg PO Q6H PRN PRN Reason: Headache/Pain Mild Scale (1-3) Last Admin: 06/01/21 17:15 Dose: 650 mg Documented by: Al Hydroxide/Mg Hydroxide (Magnesium Hydrox/Alum Hydrox 30 Ml Oral.Susp) 30 ml PO Q6H PRN PRN Reason: Heartburn/Nausea Atorvastatin Calcium (Atorvastatin Calcium 40 Mg Tablet) 40 mg PO DAILY [facility] Last Admin: 06/03/21 08:44 Dose: 40 mg Documented by: Duloxetine HCl (Duloxetine Hcl 30 Mg Capsule.) 30 mg PO DAILY [facility] Last Admin: 06/03/21 08:44 Dose: 30 mg Documented by: Fenofibrate (Fenofibrate 54 Mg Tablet) 54 mg PO DAILY [facility] Last Admin: 06/03/21 08:44 Dose: 54 mg Documented by: Gabapentin (Gabapentin 300 Mg Capsule) 600 mg PO TID [facility] Last Admin: 06/03/21 14:52 Dose: 600 mg Documented by: Hydroxyzine HCl (Hydroxyzine Hcl 25 Mg Tablet) 25 mg PO Q6H PRN PRN Reason: Anxiety Magnesium Hydroxide (Milk Of Magnesia 30 Ml Oral.Susp) 30 ml PO DAILY PRN PRN Reason: Constipation Metformin HCl (Metformin Hcl Er 500 Mg Tab.Er.24h) 1,000 mg PO BID [facility] Last Admin: 06/03/21 08:44 Dose: 1,000 mg Documented by: Metoprolol Succinate (Metoprolol Succinate Er 25 Mg Tab.Er.24h) 25 mg PO DAILY [facility]; Protocol Last Admin: 06/03/21 08:44 Dose: 25 mg Documented by: Nicotine (Nicotine 21 Mg Patch.Td24) 21 mg TRANSDERMA DAILY [facility] Last Admin: 06/03/21 08:56 Dose: Not Given Documented by: Omeprazole (Omeprazole 20 Mg Capsule.) 20 mg PO BID@0630,1630 [facility] Last Admin: 06/03/21 06:06 Dose: 20 mg Documented by: Ondansetron HCl (Ondansetron Odt 4 Mg Tab.Rapdis) 4 mg TRANSLINGU Q6H PRN PRN Reason: nausea and vomiting Quetiapine Fumarate (Quetiapine Fumarate 100 Mg Tablet) 100 mg PO BEDTIME [facility] Last Admin: 06/02/21 20:51 Dose: 100 mg Documented by: Quetiapine Fumarate (Quetiapine Fumarate 50 Mg Tablet) 50 mg PO Q6H PRN PRN Reason: agitation, anxiety Last Admin: 06/03/21 14:52 Dose: 50 mg Documented by: Sucralfate (Sucralfate 1 Gm Tablet) 1 gm PO QID [facility] Last Admin: 06/03/21 13:37 Dose: Not Given Documented by: Trazodone HCl (Trazodone Hcl 50 Mg Tablet) 50 mg PO BEDTIME PRN PRN Reason: Insomnia Last Admin: 06/01/21 20:03 Dose: 50 mg Documented by: Allergies Allergies Allergy/AdvReac Type Severity Reaction Status Date / Time No Known Allergies Allergy Verified 05/31/21 11:24 Assessment & Plan Assessment & Plan (1) Cocaine use disorder: Status: Acute Code(s): F14.10 - Cocaine abuse, uncomplicated (2) MDD (major depressive disorder), recurrent episode, moderate: Status: Acute Code(s): F33.1 - Major depressive disorder, recurrent, moderate (3) Opioid use disorder, mild, in sustained remission: Status: Acute Code(s): F11.11 - Opioid abuse, in remission Plan Matthew is a 60 y.o. Male who carries a dx of MDD, recurrent and polysubstance abuse. He presented to crisis on 05/31/21 [place] [facility] due to reporting depression, SI. Has chronic pain issues and ambulates in a wheelchair. Hx of MAT, was on suboxone during prev [facility] [place]. Hx of crack cocaine abuse, recently relapsed on 05/28/21 and has been non-adherent with psych meds for a couple days. No OP psych providers, obtains medications from PCP at [facility] in [place]. Pt is awaiting placement at [facility] program in June. Hx of VNA. Plan: Continue on OP med regimen, as pt reports positive benefit on cymbalta for mood sx and does not want changes at this time. Pt says seroquel helps with sleep. Will start seroquel 50 mg Q6H PRN for anxiety, agitation as pt reports he is struggling with anxiety. Sleep is good. Will place addiction consult due to pt wanting to re-start suboxone. 06/02: No changes, pt is resting Monitor response to medications. Monitor for safety in the milieu. Discharge on stabilization. Patient seen. Chart reviewed. Discussed with team. Obtain collateral contact info?as needed 06/03/21 Continue current regime Magnesium 1 tab daily. I spent 35 minutes with the patient and/or on the patient floor today, greater than?50% of which was spent counseling/coordinating care. Patient educated on: medication risk/benefits, therapeutic strategies and medical condition Informed Consent: understands and further education needed Reason for contiued inpatient stay Substantial Risk for: harm to self, inability to function, rapid decompensation and med/psych decompensation
--- NOTE | 2021-06-03 16:54 | HO.ADDICT_ITS ---
History of Present Illness Date of Service: 06/03/2021 Chief Complaint: si depression Reason for Consult: patient requesting to restart suboxone Requesting physician: Praveena Falcon HPI Narrative: Patient currently psychaitrically admitted Consult requested as patient requesting to restart suboxone Patient seen in room 517. RSRN and patient observer present during interview Patient reports he wants to restart suboxone because he is having pain in his legs and sometimes having cravings. He reports it has been approx 8 months since he last used any opioids. UDS +cocaine only. Patient was started on Suboxone during last admission to [facility] [place] [place], but did not continue medication once discharged. Unclear why, but he was reporting that he did not want Sublocade (long acting buprenorhine injectable). 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 Patient is not reporting or displaying any withdrawal sx. He does acknowledge cocaine use, only once in a while Past Psychiatric History: -No current OP providers -Hx of IPLOC, last at [facility] [place] [place] [facility] in Feb 2021. Hx of IPLOC at [facility] in [facility]. -Suicide attempts: none -Past medication trials: seroquel, cymbalta, gabapentin Review of Systems Constitutional: Reports as per HPI and Reports no additional constitutional complaints Diagnostics Vital Signs (24Hr): Vital Signs - 24 hr 06/02/21 19:00 06/03/21 06:00 06/03/21 08:56 Temperature 97.9 F Pulse Rate 89 97 69 Respiratory Rate 18 14 Blood Pressure 127/62 115/74 109/67 Pulse Oximetry 96 95 BMI result Body Mass Index 25.1 Labs Results: 05/31/21 13:14 05/31/21 13:14 Labs: Laboratory Results - last 48 hr 06/02/21 06/02/21 06/02/21 07:55 07:55 07:55 POC Glucose Estimat Average Glucose 146 Hemoglobin A1c % 6.7 Magnesium 1.5 L Triglycerides 367 Cholesterol 118 D LDL Cholesterol, Calc 24 HDL Cholesterol 21 Vitamin B12 424 Folate 6.2 TSH 1.16 Free T4 0.76 06/03/21 12:26 POC Glucose 162 H Estimat Average Glucose Hemoglobin A1c % Magnesium Triglycerides Cholesterol LDL Cholesterol, Calc HDL Cholesterol Vitamin B12 Folate TSH Free T4 Mental Status Exam Mental Status Exam Patient Appearance: Disheveled Level of Consciousness: Awake and Alert Patient Behavior: Appropriate and Talkative Mood Description: Calm Affect Description: Calm Ability to Follow Directions: Good Speech Pattern: Garbled (baseline) Thought Process: Intact Thought Content: positive for Circumstantial Judgement: Fair Medications Medications Current Medications Acetaminophen (Acetaminophen 325 Mg Tablet) 650 mg PO Q6H PRN PRN Reason: Headache/Pain Mild Scale (1-3) Last Admin: 06/01/21 17:15 Dose: 650 mg Documented by: Al Hydroxide/Mg Hydroxide (Magnesium Hydrox/Alum Hydrox 30 Ml Oral.Susp) 30 ml PO Q6H PRN PRN Reason: Heartburn/Nausea Atorvastatin Calcium (Atorvastatin Calcium 40 Mg Tablet) 40 mg PO DAILY [facility] Last Admin: 06/03/21 08:44 Dose: 40 mg Documented by: Duloxetine HCl (Duloxetine Hcl 30 Mg Capsule.) 30 mg PO DAILY [facility] Last Admin: 06/03/21 08:44 Dose: 30 mg Documented by: Fenofibrate (Fenofibrate 54 Mg Tablet) 54 mg PO DAILY [facility] Last Admin: 06/03/21 08:44 Dose: 54 mg Documented by: Gabapentin (Gabapentin 300 Mg Capsule) 600 mg PO TID [facility] Last Admin: 06/03/21 14:52 Dose: 600 mg Documented by: Hydroxyzine HCl (Hydroxyzine Hcl 25 Mg Tablet) 25 mg PO Q6H PRN PRN Reason: Anxiety Magnesium Hydroxide (Milk Of Magnesia 30 Ml Oral.Susp) 30 ml PO DAILY PRN PRN Reason: Constipation Metformin HCl (Metformin Hcl Er 500 Mg Tab.Er.24h) 1,000 mg PO BID [facility] Last Admin: 06/03/21 08:44 Dose: 1,000 mg Documented by: Metoprolol Succinate (Metoprolol Succinate Er 25 Mg Tab.Er.24h) 25 mg PO DAILY [facility]; Protocol Last Admin: 06/03/21 08:44 Dose: 25 mg Documented by: Nicotine (Nicotine 21 Mg Patch.Td24) 21 mg TRANSDERMA DAILY [facility] Last Admin: 06/03/21 08:56 Dose: Not Given Documented by: Omeprazole (Omeprazole 20 Mg Capsule.) 20 mg PO BID@0630,1630 [facility] Last Admin: 06/03/21 06:06 Dose: 20 mg Documented by: Ondansetron HCl (Ondansetron Odt 4 Mg Tab.Rapdis) 4 mg TRANSLINGU Q6H PRN PRN Reason: nausea and vomiting Quetiapine Fumarate (Quetiapine Fumarate 100 Mg Tablet) 100 mg PO BEDTIME [facility] Last Admin: 06/02/21 20:51 Dose: 100 mg Documented by: Quetiapine Fumarate (Quetiapine Fumarate 50 Mg Tablet) 50 mg PO Q6H PRN PRN Reason: agitation, anxiety Last Admin: 06/03/21 14:52 Dose: 50 mg Documented by: Sucralfate (Sucralfate 1 Gm Tablet) 1 gm PO QID [facility] Last Admin: 06/03/21 13:37 Dose: Not Given Documented by: Trazodone HCl (Trazodone Hcl 50 Mg Tablet) 50 mg PO BEDTIME PRN PRN Reason: Insomnia Last Admin: 06/01/21 20:03 Dose: 50 mg Documented by: Allergies Allergies Allergy/AdvReac Type Severity Reaction Status Date / Time No Known Allergies Allergy Verified 05/31/21 11:24 Assessment & Plan Assessment & Plan (1) Cocaine use disorder: Status: Acute Code(s): F14.10 - Cocaine abuse, uncomplicated Assessment and Plan: * at this time patient does not appear to be an appropriate candidate for suboxone. * non narcotic pain medications for reported leg pain * naltrexone may be appropriate as an opioid ramón--but not if any opioid medi cations are prescribed I spent ___25___ minutes with the patient and/or on the patient floor today, greater than?50% of which was spent counseling/coordinating care. [facility] Past Medical History Medical History (Updated 06/03/21 @ 08:36 by Praveena Falcon NP) Acute blood loss anemia Cocaine use disorder, moderate, dependence Diabetes HTN (hypertension) MDD (major depressive disorder), recurrent episode, moderate Opioid use disorder, mild, in sustained remission Social History Social History Household Members: None Housing: Apartment Do you presently have visiting nurse or other home services: No Unable to assess alcohol history related to: Unknown Alcohol intake: current Alcohol intake frequency: does not drink Patient Tobacco Use Status: Current everyday Tobacco user Tobacco use type: Cigarette Cigarette Packs Per Day: 2 Cigarettes Per Day: 40 Smoked in Last 30 Days: Yes Patient Interested in Nicotine Replacement: Yes Patient Given Instructions on How to Stop Smoking: Yes Date Education Initiated: 06/01/21 Second Hand Smoke Exposure: No Use of substances other than those prescribed or required for medical reasons: Yes Substance Use Type: Crack/Cocaine Substance Use Frequency: Recent Binge Last Used Substance: Days (ago) Currently Displaying Signs/Symptoms of Drug Intoxication Withdrawal: No Do you feel safe in your current relationship?: No Current Relationship Is there a partner from a previous relationship who is making you feel unsafe now?: No Advance Directives: No Advance Directives Information Provided: No Advance Directives on File: No Do you have thoughts of harming others: None Do you have a plan to hurt others: No Plan Recently lost weight without trying: Unsure Eating poorly because of decreased appetite: Yes Nutrition Risks: No Nutritional Risk Poor oral hygiene: No service: Yes Current occupational status: disabled Sexual orientation: Lesbian/[place]ar[place]/Homosexual
[2021-06-03 17:05] VITALS: BP 137/72; PULSE 95; TEMP 36.1
[2021-06-03 18:44] LABS: Glucose, Whole Blood 192 mg/dL (60-115)
[2021-06-03] MEDS: traZODone HCL 50 MG TABLET PO (20:50)
[2021-06-03] MEDS: QUEtiapine Fumarate 100 MG TABLET PO (20:51)
[2021-06-04 06:00] VITALS: BP 126/75; PULSE 89; RESP 14; TEMP 36.9; O2SAT 96
[2021-06-04 06:48] LABS: Glucose, Whole Blood 242 mg/dL (60-115)
[2021-06-04] MEDS: Magnesium Oxide 400 MG TABLET PO (09:30)
[2021-06-04] MEDS: Atorvastatin Calcium 40 MG TABLET PO (09:31)
[2021-06-04] MEDS: Metoprolol Succinate ER 25 MG TAB.ER.24H PO (09:31)
[2021-06-04] MEDS: Gabapentin 300 MG CAPSULE 600 MG PO ×3 (09:31→20:19)
[2021-06-04] MEDS: Fenofibrate 54 MG TABLET PO (09:31)
[2021-06-04] MEDS: DULoxetine HCl 30 MG CAPSULE.DR PO (09:31)
[2021-06-04] MEDS: Sucralfate 1 GM TABLET PO ×2 (09:31→20:19)
[2021-06-04] MEDS: Omeprazole 20 MG CAPSULE.DR PO (09:31)
[2021-06-04] MEDS: metFORMIN HCl ER 500 MG TAB.ER.24H 1000 MG PO ×2 (11:49→20:19)
[2021-06-04 12:14] LABS: Glucose, Whole Blood 299 mg/dL (60-115)
[2021-06-04] MEDS: QUEtiapine Fumarate 50 MG TABLET PO (14:22)
[2021-06-04 16:57] LABS: Glucose, Whole Blood 243 mg/dL (60-115)
--- NOTE | 2021-06-04 17:02 | P.PNPSI_ITS ---
Subjective Subjective Date of Service: 06/04/21 Reason For Visit: si depression Interim History: Pt discussed his elevated blood sugar levels. He continues to decline Insulin sliding scale, but discussed having a diet change to diabetic and adding Ensure supplementation as this has been effective by history. Currently reports ongoing SI, but denies med side effects, denies increase in depressive sx. Responds to encouragement, however not very talkative today. Medication Compliance: Yes Side effects from medications: No Attending Groups: No Review of Systems Acute medical concerns: No Medical Review of Systems: unchanged Review of Systems Reports behavioral changes Psychiatric: Reports abnormal sleep pattern, Reports anxiety, Reports behavioral changes, Reports depression, Reports difficulty concentrating, Reports paranoia and Reports suicidal ideation Mental Status Exam Mental Status Exam Patient Appearance: Fatigued Patient Orientation: Person, Place, Time and Situation Level of Consciousness: Alert Patient Behavior: Talkative, Cooperative and Good Eye Contact Mood Description: Depressed and Anxious Affect Description: Flat Patient Cognition Impaired: No Ability to Follow Directions: Good Speech Pattern: Spontaneous Speech Memory Description: Episodic Impaired Hallucinations: None Delusions: Not Present Perceptual Disturbances: Depersonalization and Derealization Thought Process: Distracted and Goal Oriented Thought Content: positive for [place], positive for Circumstantial and positive for Goal Oriented Depressive Symptoms: Increased Anxiety, Sleeping More Than Usual, Thoughts of /Suicide and Difficulty Concentrating Abnormal Motor Activity Signs and Symptoms: Restlessness Judgement: Fair Diagnostics Vital Signs (24Hr): Vital Signs - 24 hr 06/03/21 17:05 06/04/21 06:00 Temperature 96.9 F 98.4 F Pulse Rate 95 89 Respiratory Rate 14 Blood Pressure 137/72 126/75 Pulse Oximetry 96 BMI result Body Mass Index 25.1 Labs Results: 05/31/21 13:14 05/31/21 13:14 Labs: Laboratory Results - last 48 hr 06/02/21 06/02/21 06/03/21 07:55 07:55 12:26 POC Glucose 162 H Estimat Average Glucose 146 Hemoglobin A1c % 6.7 Vitamin B12 424 Folate 6.2 06/03/21 06/04/21 06/04/21 17:00 06:44 12:09 POC Glucose 192 H 242 H 299 H Estimat Average Glucose Hemoglobin A1c % Vitamin B12 Folate 06/04/21 16:48 POC Glucose 243 H Estimat Average Glucose Hemoglobin A1c % Vitamin B12 Folate Medications Medications Current Medications Acetaminophen (Acetaminophen 325 Mg Tablet) 650 mg PO Q6H PRN PRN Reason: Headache/Pain Mild Scale (1-3) Last Admin: 06/01/21 17:15 Dose: 650 mg Documented by: Al Hydroxide/Mg Hydroxide (Magnesium Hydrox/Alum Hydrox 30 Ml Oral.Susp) 30 ml PO Q6H PRN PRN Reason: Heartburn/Nausea Atorvastatin Calcium (Atorvastatin Calcium 40 Mg Tablet) 40 mg PO DAILY [facility] Last Admin: 06/04/21 09:31 Dose: 40 mg Documented by: Duloxetine HCl (Duloxetine Hcl 30 Mg Capsule.) 30 mg PO DAILY [facility] Last Admin: 06/04/21 09:31 Dose: 30 mg Documented by: Fenofibrate (Fenofibrate 54 Mg Tablet) 54 mg PO DAILY [facility] Last Admin: 06/04/21 09:31 Dose: 54 mg Documented by: Gabapentin (Gabapentin 300 Mg Capsule) 600 mg PO TID [facility] Last Admin: 06/04/21 14:22 Dose: 600 mg Documented by: Hydroxyzine HCl (Hydroxyzine Hcl 25 Mg Tablet) 25 mg PO Q6H PRN PRN Reason: Anxiety Magnesium Hydroxide (Milk Of Magnesia 30 Ml Oral.Susp) 30 ml PO DAILY PRN PRN Reason: Constipation Magnesium Oxide (Magnesium Oxide 400 Mg Tablet) 400 mg PO DAILY [facility] Last Admin: 06/04/21 09:30 Dose: 400 mg Documented by: Metformin HCl (Metformin Hcl Er 500 Mg Tab.Er.24h) 1,000 mg PO BID [facility] Last Admin: 06/04/21 11:49 Dose: 1,000 mg Documented by: Metoprolol Succinate (Metoprolol Succinate Er 25 Mg Tab.Er.24h) 25 mg PO DAILY [facility]; Protocol Last Admin: 06/04/21 09:31 Dose: 25 mg Documented by: Nicotine (Nicotine 21 Mg Patch.Td24) 21 mg TRANSDERMA DAILY [facility] Last Admin: 06/04/21 09:33 Dose: Not Given Documented by: Omeprazole (Omeprazole 20 Mg Capsule.) 20 mg PO BID@0630,1630 [facility] Last Admin: 06/04/21 09:31 Dose: 20 mg Documented by: Ondansetron HCl (Ondansetron Odt 4 Mg Tab.Rapdis) 4 mg TRANSLINGU Q6H PRN PRN Reason: nausea and vomiting Quetiapine Fumarate (Quetiapine Fumarate 100 Mg Tablet) 100 mg PO BEDTIME [facility] Last Admin: 06/03/21 20:51 Dose: 100 mg Documented by: Quetiapine Fumarate (Quetiapine Fumarate 50 Mg Tablet) 50 mg PO Q6H PRN PRN Reason: agitation, anxiety Last Admin: 06/04/21 14:22 Dose: 50 mg Documented by: Sucralfate (Sucralfate 1 Gm Tablet) 1 gm PO QID [facility] Last Admin: 06/04/21 12:22 Dose: Not Given Documented by: Trazodone HCl (Trazodone Hcl 50 Mg Tablet) 50 mg PO BEDTIME PRN PRN Reason: Insomnia Last Admin: 06/03/21 20:50 Dose: 50 mg Documented by: Allergies Allergies Allergy/AdvReac Type Severity Reaction Status Date / Time No Known Allergies Allergy Verified 05/31/21 11:24 Assessment & Plan Assessment & Plan (1) MDD (major depressive disorder), recurrent episode, moderate: Status: Acute Code(s): F33.1 - Major depressive disorder, recurrent, moderate (2) Opioid use disorder, mild, in sustained remission: Status: Acute Code(s): F11.11 - Opioid abuse, in remission (3) Cocaine use disorder: Status: Acute Code(s): F14.10 - Cocaine abuse, uncomplicated Plan Matthew is a 60 y.o. Male who carries a dx of MDD, recurrent and polysubstance abuse. He presented to crisis on 05/31/21 at [facility] ED due to reporting depression, SI. Has chronic pain issues and ambulates in a wheelchair. Hx of MAT, was on suboxone during prev [facility] admission. Hx of crack cocaine abuse, recently relapsed on 05/28/21 and has been non-adherent with psych meds for a couple days. No OP psych providers, obtains medications from PCP at [facility] in [place]. Pt is awaiting placement at [facility] program in June. Hx of VNA. Plan: Continue on OP med regimen, as pt reports positive benefit on cymbalta for mood sx and does not want changes at this time. Pt says seroquel helps with sleep. Will start seroquel 50 mg Q6H PRN for anxiety, agitation as pt reports he is struggling with anxiety. Sleep is good. Will place addiction consult due to pt wanting to re-start suboxone. 06/02: No changes, pt is resting Monitor response to medications. Monitor for safety in the milieu. Discharge on stabilization. Patient seen. Chart reviewed. Discussed with team. Obtain collateral contact info?as needed 06/03/21 Continue current regime Magnesium 1 tab daily. 06/04/21: Change diet to diabetic. Ensure with meals Continue psychotropic regime. I spent 15 minutes with the patient and/or on the patient floor today, greater than?50% of which was spent counseling/coordinating care. Patient educated on: diagnosis, medication risk/benefits, therapeutic strategies and medical condition Informed Consent: understands and further education needed Reason for contiued inpatient stay Substantial Risk for: harm to self, inability to function, rapid decompensation and med/psych decompensation
[2021-06-04] MEDS: QUEtiapine Fumarate 100 MG TABLET PO (20:18)
[2021-06-04] MEDS: traZODone HCL 50 MG TABLET PO (20:19)
[2021-06-04 20:43] LABS: Glucose, Whole Blood 232 mg/dL (60-115)
[2021-06-05] MEDS: QUEtiapine Fumarate 50 MG TABLET PO ×3 (02:58→17:11)
[2021-06-05 06:48] LABS: Glucose, Whole Blood 237 mg/dL (60-115)
[2021-06-05] MEDS: Sucralfate 1 GM TABLET PO ×4 (08:29→20:11)
[2021-06-05] MEDS: Fenofibrate 54 MG TABLET PO (08:29)
[2021-06-05] MEDS: metFORMIN HCl ER 500 MG TAB.ER.24H 1000 MG PO ×2 (08:29→20:12)
[2021-06-05] MEDS: DULoxetine HCl 30 MG CAPSULE.DR PO ×2 (08:29→14:02)
[2021-06-05] MEDS: Magnesium Oxide 400 MG TABLET PO (08:29)
[2021-06-05] MEDS: Gabapentin 300 MG CAPSULE 600 MG PO ×3 (08:29→20:11)
[2021-06-05] MEDS: Metoprolol Succinate ER 25 MG TAB.ER.24H PO (08:29)
[2021-06-05] MEDS: Atorvastatin Calcium 40 MG TABLET PO (08:30)
[2021-06-05] MEDS: Omeprazole 20 MG CAPSULE.DR PO ×2 (08:30→17:03)
[2021-06-05 08:35] LABS: Glucose, Whole Blood 304 mg/dL (60-115)
[2021-06-05 08:40] VITALS: BP 138/75; PULSE 83; TEMP 36.6; O2SAT 98
[2021-06-05 11:18] LABS: Glucose, Whole Blood 255 mg/dL (60-115)
--- NOTE | 2021-06-05 13:21 | HO.PSYCHPN ---
Subjective Subjective Date of Service: 06/05/21 Reason For Visit: si depression Interim History: Pt reports his depression is better since on admission. He says it still remains and cites chronic illness as an ongoing depressing trigger, but relative to prior to admission, it's better. However, he feels that higher dose of Cymbalta is warranted, saying especially in winter time, he's frequently on the cusp of depression. Dietetics Professor agrees to increase Cymbalta to 60mg. Pt says that SI remains, but it's in the back of my mind and he can ignore it; denies any intent or plans. Pt discussed pending start with [facility] that offers wrap around services which he feels will be very helpful. He has a visit scheduled with them for 06/06/21 but seems to says it can be rescheduled if not home in time. To that end, patient says he feels able to dc or Thursday. Pt reports sleeping well. Mental Status Exam Mental Status Exam Narrative: patient Appearance:?calm; unkempt, scruffy Patient Orientation:?Person, Place, Time and Situation Level of Consciousness:?Alert Patient Behavior:?calm, friendly, cooperative; Good Eye Contact Mood Description:? better though still with depression Affect Description:?congruent Patient Cognition Impaired:?No Ability to Follow Directions:?Good Speech Pattern:?Spontaneous Speech Memory Description:?Episodic Impaired Hallucinations:?None Delusions:?Not Present Perceptual Disturbances:?none expressed Thought Process:?linear, organized, goal directed Thought Content:?passive SI; no HI; discharge, Abnormal Motor Activity Signs and Symptoms:?none Judgment/insight:?Fair Diagnostics Vital Signs (24Hr): Vital Signs - 24 hr 06/05/21 08:40 Temperature 97.9 F Pulse Rate 83 Blood Pressure 138/75 Pulse Oximetry 98 BMI result Body Mass Index 25.1 Labs Results: 05/31/21 13:14 05/31/21 13:14 Labs: Laboratory Results - last 48 hr 06/03/21 06/04/21 06/04/21 17:00 06:44 12:09 POC Glucose 192 H 242 H 299 H 06/04/21 06/04/21 06/05/21 16:48 20:14 06:44 POC Glucose 243 H 232 H 237 H 06/05/21 06/05/21 08:28 11:14 POC Glucose 304 H 255 H Medications Medications Current Medications Acetaminophen (Acetaminophen 325 Mg Tablet) 650 mg PO Q6H PRN PRN Reason: Headache/Pain Mild Scale (1-3) Last Admin: 06/01/21 17:15 Dose: 650 mg Documented by: Al Hydroxide/Mg Hydroxide (Magnesium Hydrox/Alum Hydrox 30 Ml Oral.Susp) 30 ml PO Q6H PRN PRN Reason: Heartburn/Nausea Atorvastatin Calcium (Atorvastatin Calcium 40 Mg Tablet) 40 mg PO DAILY [facility] Last Admin: 06/05/21 08:30 Dose: 40 mg Documented by: Duloxetine HCl (Duloxetine Hcl 30 Mg Capsule.) 30 mg PO DAILY [facility] Last Admin: 06/05/21 08:29 Dose: 30 mg Documented by: Fenofibrate (Fenofibrate 54 Mg Tablet) 54 mg PO DAILY [facility] Last Admin: 06/05/21 08:29 Dose: 54 mg Documented by: Gabapentin (Gabapentin 300 Mg Capsule) 600 mg PO TID [facility] Last Admin: 06/05/21 08:29 Dose: 600 mg Documented by: Hydroxyzine HCl (Hydroxyzine Hcl 25 Mg Tablet) 25 mg PO Q6H PRN PRN Reason: Anxiety Magnesium Hydroxide (Milk Of Magnesia 30 Ml Oral.Susp) 30 ml PO DAILY PRN PRN Reason: Constipation Magnesium Oxide (Magnesium Oxide 400 Mg Tablet) 400 mg PO DAILY [facility] Last Admin: 06/05/21 08:29 Dose: 400 mg Documented by: Metformin HCl (Metformin Hcl Er 500 Mg Tab.Er.24h) 1,000 mg PO BID [facility] Last Admin: 06/05/21 08:29 Dose: 1,000 mg Documented by: Metoprolol Succinate (Metoprolol Succinate Er 25 Mg Tab.Er.24h) 25 mg PO DAILY [facility]; Protocol Last Admin: 06/05/21 08:29 Dose: 25 mg Documented by: Nicotine (Nicotine 21 Mg Patch.Td24) 21 mg TRANSDERMA DAILY [facility] Last Admin: 06/05/21 09:27 Dose: Not Given Documented by: Omeprazole (Omeprazole 20 Mg Capsule.) 20 mg PO BID@0630,1630 [facility] Last Admin: 06/05/21 08:30 Dose: 20 mg Documented by: Ondansetron HCl (Ondansetron Odt 4 Mg Tab.Rapdis) 4 mg TRANSLINGU Q6H PRN PRN Reason: nausea and vomiting Quetiapine Fumarate (Quetiapine Fumarate 100 Mg Tablet) 100 mg PO BEDTIME [facility] Last Admin: 06/04/21 20:18 Dose: 100 mg Documented by: Quetiapine Fumarate (Quetiapine Fumarate 50 Mg Tablet) 50 mg PO Q6H PRN PRN Reason: agitation, anxiety Last Admin: 06/05/21 11:19 Dose: 50 mg Documented by: Sucralfate (Sucralfate 1 Gm Tablet) 1 gm PO QID [facility] Last Admin: 06/05/21 12:44 Dose: 1 gm Documented by: Trazodone HCl (Trazodone Hcl 50 Mg Tablet) 50 mg PO BEDTIME PRN PRN Reason: Insomnia Last Admin: 06/04/21 20:19 Dose: 50 mg Documented by: Allergies Allergies Allergy/AdvReac Type Severity Reaction Status Date / Time No Known Allergies Allergy Verified 05/31/21 11:24 Assessment & Plan Assessment & Plan (1) MDD (major depressive disorder), recurrent episode, moderate: Status: Acute Code(s): F33.1 - Major depressive disorder, recurrent, moderate (2) Opioid use disorder, mild, in sustained remission: Status: Acute Code(s): F11.11 - Opioid abuse, in remission (3) Cocaine use disorder: Status: Acute Code(s): F14.10 - Cocaine abuse, uncomplicated Plan Matthew is a 60 y.o. Male who carries a dx of MDD, recurrent and polysubstance abuse. He presented to crisis on 05/31/21 at [facility] ED due to reporting depression, SI. Has chronic pain issues and ambulates in a wheelchair. Hx of MAT, was on suboxone during prev [facility] admission. Hx of crack cocaine abuse, recently relapsed on 05/28/21 and has been non-adherent with psych meds for a couple days. No OP psych providers, obtains medications from PCP at [facility] in [place]. Pt is awaiting placement at [facility] program in June. Hx of VNA. Plan: Continue on OP med regimen, as pt reports positive benefit on cymbalta for mood sx and does not want changes at this time. Pt says seroquel helps with sleep. Will start seroquel 50 mg Q6H PRN for anxiety, agitation as pt reports he is struggling with anxiety. Sleep is good. Will place addiction consult due to pt wanting to re-start suboxone. 06/02: No changes, pt is resting 06/03/21 Continue current regime Magnesium 1 tab daily. 06/04/21: Change diet to diabetic. Ensure with meals Continue psychotropic regime. 06/05/21: increased Duloxetine to 60mg; though depression better, it remains and says he's more vulnerable to bouts of it in winter. SI is passive and able to be ignored; no plans or intention; feels ready to discharge soon Monitor response to medications. Monitor for safety in the milieu. Discharge on stabilization. Patient seen. Chart reviewed. Discussed with team. Obtain collateral contact info?as needed I spent minutes with the patient and/or on the patient floor today, greater than?50% of which was spent counseling/coordinating care. Reason for contiued inpatient stay Substantial Risk for: stable for discharge
[2021-06-05 16:53] LABS: Glucose, Whole Blood 171 mg/dL (60-115)
[2021-06-05 17:05] VITALS: BP 152/69; PULSE 78; TEMP 36.6
[2021-06-05] MEDS: QUEtiapine Fumarate 100 MG TABLET PO (20:12)
[2021-06-05] MEDS: traZODone HCL 50 MG TABLET PO (20:16)
[2021-06-05 23:01] LABS: Glucose, Whole Blood 238 mg/dL (60-115)
[2021-06-06] MEDS: QUEtiapine Fumarate 50 MG TABLET PO ×2 (02:26→09:27)
[2021-06-06 06:00] VITALS: BP 123/64; PULSE 70; RESP 14; TEMP 36.8; O2SAT 96
[2021-06-06 08:00] LABS: Glucose, Whole Blood 253 mg/dL (60-115)
[2021-06-06 08:30] VITALS: BP 133/62; PULSE 80; TEMP 36.8
[2021-06-06] MEDS: Sucralfate 1 GM TABLET PO ×4 (08:55→20:46)
[2021-06-06] MEDS: metFORMIN HCl ER 500 MG TAB.ER.24H 1000 MG PO ×2 (08:55→20:46)
[2021-06-06] MEDS: Magnesium Oxide 400 MG TABLET PO (08:55)
[2021-06-06] MEDS: DULoxetine HCl 60 MG CAPSULE.DR PO (08:55)
[2021-06-06] MEDS: Metoprolol Succinate ER 25 MG TAB.ER.24H PO (08:56)
[2021-06-06] MEDS: Omeprazole 20 MG CAPSULE.DR PO ×2 (08:56→17:02)
[2021-06-06] MEDS: Fenofibrate 54 MG TABLET PO (08:56)
[2021-06-06] MEDS: Gabapentin 300 MG CAPSULE 600 MG PO ×3 (08:56→20:45)
[2021-06-06 12:05] LABS: Glucose, Whole Blood 255 mg/dL (60-115)
[2021-06-06] MEDS: Atorvastatin Calcium 40 MG TABLET PO (13:07)
--- NOTE | 2021-06-06 14:31 | P.PNPSI_ITS ---
Subjective Subjective Date of Service: 06/06/21 Reason For Visit: si depression Interim History: Discharge planned for 06/07. Denies SI, feeling ready to leave. Cymbalta titrated on 06/05/21 and is tolerated. Pt plans to enroll in [facility] for 06/25/21 and begin to work with them on orthopedic referrals. Medication Compliance: Yes Side effects from medications: No Attending Groups: No Review of Systems Acute medical concerns: No Medical Review of Systems: unchanged Review of Systems Musculoskeletal: Reports abnormal gait, Reports back pain, Reports myalgias and Reports other (chronic pain) Reports abnormal gait Psychiatric: Reports anxiety, Reports depression, Reports difficulty concentrating, Reports anhedonia and Reports suicidal ideation (denies) Mental Status Exam Mental Status Exam Patient Appearance: Fatigued and Disheveled Patient Orientation: Person, Place, Time and Situation Level of Consciousness: Alert Patient Behavior: Appropriate, Talkative, Cooperative and Good Eye Contact Mood Description: Withdrawn Affect Description: Flat Patient Cognition Impaired: No Ability to Follow Directions: Good Speech Pattern: Clear, Appropriate, Spontaneous Speech and Coherent Memory Description: Intact Hallucinations: None Delusions: Not Present Perceptual Disturbances: Depersonalization and Derealization Thought Process: Goal Oriented Thought Content: positive for Circumstantial, positive for Goal Oriented and positive for Suicidal Ideation (denies) Depressive Symptoms: Increased Fatigue and Thoughts of /Suicide (denies) Judgement: Fair Diagnostics Vital Signs (24Hr): Vital Signs - 24 hr 06/05/21 17:05 06/06/21 06:00 06/06/21 08:30 Temperature 97.9 F 98.3 F 98.2 F Pulse Rate 78 70 80 Respiratory Rate 14 Blood Pressure 152/69 H 123/64 133/62 Pulse Oximetry 96 BMI result Body Mass Index 25.1 Labs Results: 05/31/21 13:14 05/31/21 13:14 Labs: Laboratory Results - last 48 hr 06/04/21 06/04/21 06/05/21 16:48 20:14 06:44 POC Glucose 243 H 232 H 237 H 06/05/21 06/05/21 06/05/21 08:28 11:14 16:30 POC Glucose 304 H 255 H 171 H 06/05/21 06/06/21 06/06/21 20:09 07:56 12:01 POC Glucose 238 H 253 H 255 H Medications Medications Current Medications Acetaminophen (Acetaminophen 325 Mg Tablet) 650 mg PO Q6H PRN PRN Reason: Headache/Pain Mild Scale (1-3) Last Admin: 06/01/21 17:15 Dose: 650 mg Documented by: Al Hydroxide/Mg Hydroxide (Magnesium Hydrox/Alum Hydrox 30 Ml Oral.Susp) 30 ml PO Q6H PRN PRN Reason: Heartburn/Nausea Atorvastatin Calcium (Atorvastatin Calcium 40 Mg Tablet) 40 mg PO DAILY [facility] Last Admin: 06/06/21 13:07 Dose: 40 mg Documented by: Duloxetine HCl (Duloxetine Hcl 60 Mg Capsule.) 60 mg PO DAILY [facility] Last Admin: 06/06/21 08:55 Dose: 60 mg Documented by: Fenofibrate (Fenofibrate 54 Mg Tablet) 54 mg PO DAILY [facility] Last Admin: 06/06/21 08:56 Dose: 54 mg Documented by: Gabapentin (Gabapentin 300 Mg Capsule) 600 mg PO TID [facility] Last Admin: 06/06/21 14:30 Dose: 600 mg Documented by: Hydroxyzine HCl (Hydroxyzine Hcl 25 Mg Tablet) 25 mg PO Q6H PRN PRN Reason: Anxiety Magnesium Hydroxide (Milk Of Magnesia 30 Ml Oral.Susp) 30 ml PO DAILY PRN PRN Reason: Constipation Magnesium Oxide (Magnesium Oxide 400 Mg Tablet) 400 mg PO DAILY [facility] Last Admin: 06/06/21 08:55 Dose: 400 mg Documented by: Metformin HCl (Metformin Hcl Er 500 Mg Tab.Er.24h) 1,000 mg PO BID [facility] Last Admin: 06/06/21 08:55 Dose: 1,000 mg Documented by: Metoprolol Succinate (Metoprolol Succinate Er 25 Mg Tab.Er.24h) 25 mg PO DAILY [facility]; Protocol Last Admin: 06/06/21 08:56 Dose: 25 mg Documented by: Nicotine (Nicotine 21 Mg Patch.Td24) 21 mg TRANSDERMA DAILY [facility] Last Admin: 06/06/21 08:54 Dose: Not Given Documented by: Omeprazole (Omeprazole 20 Mg Capsule.) 20 mg PO BID@0630,1630 [facility] Last Admin: 06/06/21 08:56 Dose: 20 mg Documented by: Ondansetron HCl (Ondansetron Odt 4 Mg Tab.Rapdis) 4 mg TRANSLINGU Q6H PRN PRN Reason: nausea and vomiting Quetiapine Fumarate (Quetiapine Fumarate 100 Mg Tablet) 100 mg PO BEDTIME [facility] Last Admin: 06/05/21 20:12 Dose: 100 mg Documented by: Quetiapine Fumarate (Quetiapine Fumarate 50 Mg Tablet) 50 mg PO Q6H PRN PRN Reason: agitation, anxiety Last Admin: 06/06/21 09:27 Dose: 50 mg Documented by: Sucralfate (Sucralfate 1 Gm Tablet) 1 gm PO QID [facility] Last Admin: 06/06/21 13:07 Dose: 1 gm Documented by: Trazodone HCl (Trazodone Hcl 50 Mg Tablet) 50 mg PO BEDTIME PRN PRN Reason: Insomnia Last Admin: 06/05/21 20:16 Dose: 50 mg Documented by: Allergies Allergies Allergy/AdvReac Type Severity Reaction Status Date / Time No Known Allergies Allergy Verified 05/31/21 11:24 Assessment & Plan Assessment & Plan (1) MDD (major depressive disorder), recurrent episode, moderate: Status: Acute Code(s): F33.1 - Major depressive disorder, recurrent, moderate (2) Opioid use disorder, mild, in sustained remission: Status: Acute Code(s): F11.11 - Opioid abuse, in remission (3) Cocaine use disorder: Status: Acute Code(s): F14.10 - Cocaine abuse, uncomplicated Plan Matthew is a 60 y.o. Male who carries a dx of MDD, recurrent and polysubstance abuse. He presented to crisis on 05/31/21 at [facility] ED due to reporting depression, SI. Has chronic pain issues and ambulates in a wheelchair. Hx of MAT, was on suboxone during prev [facility] admission. Hx of crack cocaine abuse, recently relapsed on 05/28/21 and has been non-adherent with psych meds for a couple days. No OP psych providers, obtains medications from PCP at [facility] in [place]. Pt is awaiting placement at [facility] program in June. Hx of VNA. Plan: Continue on OP med regimen, as pt reports positive benefit on cymbalta for mood sx and does not want changes at this time. Pt says seroquel helps with sleep. Will start seroquel 50 mg Q6H PRN for anxiety, agitation as pt reports he is struggling with anxiety. Sleep is good. Will place addiction consult due to pt wanting to re-start suboxone. 06/02: No changes, pt is resting 06/03/21 Continue current regime Magnesium 1 tab daily. 06/04/21: Change diet to diabetic. Ensure with meals Continue psychotropic regime. 06/05/21: increased Duloxetine to 60mg; though depression better, it remains and says he's more vulnerable to bouts of it in winter. SI is passive and able to be ignored; no plans or intention; feels ready to discharge soon 06/06/21 Tolerating increase of Cymbalta. Discharge 06/07/21. Monitor response to medications. Monitor for safety in the milieu. Discharge on stabilization. Patient seen. Chart reviewed. Discussed with team. Obtain collateral contact info?as needed I spent 25 minutes with the patient and/or on the patient floor today, greater than?50% of which was spent counseling/coordinating care. Patient educated on: medication risk/benefits and therapeutic strategies Informed Consent: understands and further education needed Reason for contiued inpatient stay Substantial Risk for: stable for discharge
[2021-06-06 16:55] VITALS: BP 124/77; PULSE 77; TEMP 36.8
[2021-06-06 17:13] LABS: Glucose, Whole Blood 222 mg/dL (60-115)
[2021-06-06] MEDS: QUEtiapine Fumarate 100 MG TABLET PO (20:47)
[2021-06-06] MEDS: traZODone HCL 50 MG TABLET PO (20:49)
[2021-06-06 21:08] LABS: Glucose, Whole Blood 240 mg/dL (60-115)
[2021-06-07] MEDS: Omeprazole 20 MG CAPSULE.DR PO (05:51)
[2021-06-07 06:30] LABS: Glucose, Whole Blood 187 mg/dL (60-115)
[2021-06-07 08:44] VITALS: BP 140/82; PULSE 82; RESP 16; TEMP 36.9; O2SAT 97
[2021-06-07] MEDS: Metoprolol Succinate ER 25 MG TAB.ER.24H PO (09:00)
[2021-06-07] MEDS: Atorvastatin Calcium 40 MG TABLET PO (09:00)
[2021-06-07] MEDS: DULoxetine HCl 60 MG CAPSULE.DR PO (09:00)
[2021-06-07] MEDS: metFORMIN HCl ER 500 MG TAB.ER.24H 1000 MG PO (09:00)
[2021-06-07] MEDS: Sucralfate 1 GM TABLET PO (09:00)
[2021-06-07] MEDS: Magnesium Oxide 400 MG TABLET PO (09:01)
[2021-06-07] MEDS: Fenofibrate 54 MG TABLET PO (09:01)
[2021-06-07] MEDS: Gabapentin 300 MG CAPSULE 600 MG PO (09:01)
[2021-06-07] MEDS: QUEtiapine Fumarate 50 MG TABLET PO (09:07)
--- NOTE | 2021-06-07 10:55 | PM.PSYDC ---
DS: Providers Provider Date of Service: 06/07/21 Date of admission: 06/01/21 12:35 Date of discharge: 06/07/21 Primary care physician: Unknown Physician Admitting clinician: Praveena Falcon Attending physician on admission: Benjamin Stout Consults: 06/01/21 16:27 Addiction Medicine Routine Consulting Provider: Dina Jones Reason for consultation: wants to re-start suboxone Attending physician on discharge: Benjamin Stout Discharging clinician: Cely Miller DS: Diagnosis Discharge Diagnosis (1) MDD (major depressive disorder), recurrent episode, moderate: Status: Acute (2) Opioid use disorder, mild, in sustained remission: Status: Acute (3) Cocaine use disorder: Status: Acute DS: Medications Discharge Medications Home Medications: Previous Rx's Medication Instructions Recorded blood-glucose meter #1 ea 03/26/21 ondansetron 4 mg disintegrating 4 mg PO Q6-8H PRN #14 tab 04/20/21 tablet atorvastatin 40 mg tablet 40 mg PO DAILY #30 tab 06/06/21 duloxetine 60 mg capsule,delayed 60 mg PO DAILY #30 cap 06/06/21 release fenofibrate 54 mg tablet 54 mg PO DAILY #30 tab 06/06/21 gabapentin 300 mg capsule 600 mg PO TID #180 cap 06/06/21 magnesium oxide 400 mg (241.3 mg 400 mg PO DAILY #30 tab 06/06/21 magnesium) tablet metformin 500 mg tablet,extended 1,000 mg PO BID #120 tab 06/06/21 release 24 hr metoprolol succinate 25 mg 25 mg PO DAILY #30 tab 06/06/21 tablet,extended release 24 hr naloxone 4 mg/actuation nasal 4 mg INTRANASAL Q2M PRN #2 ea 06/06/21 spray (Narcan) nicotine 21 mg/24 hr daily 21 mg TRANSDERMAL DAILY #30 ea 06/06/21 transdermal patch omeprazole 20 mg capsule,delayed 20 mg PO BID@0630,1630 #60 cap 06/06/21 release quetiapine 100 mg tablet 100 mg PO BEDTIME #30 tab 06/06/21 quetiapine 50 mg tablet 50 mg PO Q6H PRN #60 tab 06/06/21 sucralfate 1 gram tablet (Carafate) 1 g PO QID 30 Days #120 tab 02/10/22 trazodone 50 mg tablet 50 mg PO BEDTIME PRN #30 tab 06/06/21 Mental Status Exam Mental Status Exam Patient Appearance: Fatigued and Disheveled Patient Orientation: Person, Place, Time and Situation Level of Consciousness: Alert Patient Behavior: Appropriate, Talkative, Cooperative and Good Eye Contact Mood Description: Withdrawn Affect Description: Flat Patient Cognition Impaired: No Ability to Follow Directions: Good Speech Pattern: Clear, Appropriate, Spontaneous Speech and Coherent Memory Description: Intact Hallucinations: None Delusions: Not Present Perceptual Disturbances: Depersonalization and Derealization Thought Process: Goal Oriented Thought Content: positive for Circumstantial, positive for Goal Oriented and positive for Suicidal Ideation (denies) Depressive Symptoms: Increased Fatigue and Thoughts of /Suicide (denies) Judgement: Fair Data Data Completed and Pending Completed studies during hospitalization [Text1]: 05/31/21 05/31/21 05/31/21 13:14 13:14 13:14 WBC 6.2 RBC 4.25 L D Hgb 11.9 L Hct 36.3 L MCV 85.4 MCH 28.0 MCHC 32.8 RDW 14.2 Plt Count 221 D MPV 10.0 Immature Gran % (Auto) 0.5 H Neut % (Auto) 64.8 Lymph % (Auto) 23.3 Josephine % (Auto) 8.7 Eos % (Auto) 2.2 Baso % (Auto) 0.5 Lymph # (Auto) 1.5 Josephine # (Auto) 0.5 Eos # (Auto) 0.1 Baso # (Auto) 0.0 Abs Immat Gran (auto) 0.03 Absolute Neuts (auto) 4.0 Absolute Nucleated RBC 0.000 Nucleated RBC % (auto) 0.0 Sodium 136 Potassium 4.1 Chloride 103 Carbon Dioxide 26 Anion Gap 11 L BUN 7 L Creatinine 0.73 Estim Creat Clear Calc 110.3 Estimated GFR > 60 POC Glucose Random Glucose 169 H Estimat Average Glucose Hemoglobin A1c % Calcium 9.5 D Magnesium Total Bilirubin 0.4 Direct Bilirubin 0.2 AST 25 D ALT 30 Alkaline Phosphatase 67 D Total Protein 6.8 D Albumin 4.2 D Triglycerides Cholesterol LDL Cholesterol, Calc HDL Cholesterol Vitamin B12 Folate TSH Free T4 Urine Opiates Screen Urine Fentanyl Screen Ur Barbiturates Screen Ur Phencyclidine Scrn Ur Amphetamines Screen U Benzodiazepines Scrn Urine Cocaine Screen U Marijuana (THC) Screen Ethyl Alcohol COVID-19 (TANA) Negative COVID-[employer] See Note 05/31/21 05/31/21 06/02/21 14:55 17:56 07:55 WBC RBC Hgb Hct MCV MCH MCHC RDW Plt Count MPV Immature Gran % (Auto) Neut % (Auto) Lymph % (Auto) Josephine % (Auto) Eos % (Auto) Baso % (Auto) Lymph # (Auto) Josephine # (Auto) Eos # (Auto) Baso # (Auto) Abs Immat Gran (auto) Absolute Neuts (auto) Absolute Nucleated RBC Nucleated RBC % (auto) Sodium Potassium Chloride Carbon Dioxide Anion Gap BUN Creatinine Estim Creat Clear Calc Estimated GFR POC Glucose Random Glucose Estimat Average Glucose 146 Hemoglobin A1c % 6.7 Calcium Magnesium Total Bilirubin Direct Bilirubin AST ALT Alkaline Phosphatase Total Protein Albumin Triglycerides Cholesterol LDL Cholesterol, Calc HDL Cholesterol Vitamin B12 Folate TSH Free T4 Urine Opiates Screen Not Detected Urine Fentanyl Screen Not Detected Ur Barbiturates Screen Not Detected Ur Phencyclidine Scrn Not Detected Ur Amphetamines Screen Not Detected U Benzodiazepines Scrn Not Detected Urine Cocaine Screen POSITIVE H U Marijuana (THC) Screen Not Detected Ethyl Alcohol < 10 COVID-19 (TANA) COVID-[employer] 06/02/21 06/02/21 06/03/21 07:55 07:55 12:26 WBC RBC Hgb Hct MCV MCH MCHC RDW Plt Count MPV Immature Gran % (Auto) Neut % (Auto) Lymph % (Auto) Josephine % (Auto) Eos % (Auto) Baso % (Auto) Lymph # (Auto) Josephine # (Auto) Eos # (Auto) Baso # (Auto) Abs Immat Gran (auto) Absolute Neuts (auto) Absolute Nucleated RBC Nucleated RBC % (auto) Sodium Potassium Chloride Carbon Dioxide Anion Gap BUN Creatinine Estim Creat Clear Calc Estimated GFR POC Glucose 162 H Random Glucose Estimat Average Glucose Hemoglobin A1c % Calcium Magnesium 1.5 L Total Bilirubin Direct Bilirubin AST ALT Alkaline Phosphatase Total Protein Albumin Triglycerides 367 Cholesterol 118 D LDL Cholesterol, Calc 24 HDL Cholesterol 21 Vitamin B12 424 Folate 6.2 TSH 1.16 Free T4 0.76 Urine Opiates Screen Urine Fentanyl Screen Ur Barbiturates Screen Ur Phencyclidine Scrn Ur Amphetamines Screen U Benzodiazepines Scrn Urine Cocaine Screen U Marijuana (THC) Screen Ethyl Alcohol COVID-19 (TANA) COVIDUnyqe 06/03/21 06/04/21 06/04/21 17:00 06:44 12:09 WBC RBC Hgb Hct MCV MCH MCHC RDW Plt Count MPV Immature Gran % (Auto) Neut % (Auto) Lymph % (Auto) Josephine % (Auto) Eos % (Auto) Baso % (Auto) Lymph # (Auto) Josephine # (Auto) Eos # (Auto) Baso # (Auto) Abs Immat Gran (auto) Absolute Neuts (auto) Absolute Nucleated RBC Nucleated RBC % (auto) Sodium Potassium Chloride Carbon Dioxide Anion Gap BUN Creatinine Estim Creat Clear Calc Estimated GFR POC Glucose 192 H 242 H 299 H Random Glucose Estimat Average Glucose Hemoglobin A1c % Calcium Magnesium Total Bilirubin Direct Bilirubin AST ALT Alkaline Phosphatase Total Protein Albumin Triglycerides Cholesterol LDL Cholesterol, Calc HDL Cholesterol Vitamin B12 Folate TSH Free T4 Urine Opiates Screen Urine Fentanyl Screen Ur Barbiturates Screen Ur Phencyclidine Scrn Ur Amphetamines Screen U Benzodiazepines Scrn Urine Cocaine Screen U Marijuana (THC) Screen Ethyl Alcohol COVID-19 (TANA) COVID-19 [employer] 06/04/21 06/04/21 06/05/21 16:48 20:14 06:44 WBC RBC Hgb Hct MCV MCH MCHC RDW Plt Count MPV Immature Gran % (Auto) Neut % (Auto) Lymph % (Auto) Josephine % (Auto) Eos % (Auto) Baso % (Auto) Lymph # (Auto) Josephine # (Auto) Eos # (Auto) Baso # (Auto) Abs Immat Gran (auto) Absolute Neuts (auto) Absolute Nucleated RBC Nucleated RBC % (auto) Sodium Potassium Chloride Carbon Dioxide Anion Gap BUN Creatinine Estim Creat Clear Calc Estimated GFR POC Glucose 243 H 232 H 237 H Random Glucose Estimat Average Glucose Hemoglobin A1c % Calcium Magnesium Total Bilirubin Direct Bilirubin AST ALT Alkaline Phosphatase Total Protein Albumin Triglycerides Cholesterol LDL Cholesterol, Calc HDL Cholesterol Vitamin B12 Folate TSH Free T4 Urine Opiates Screen Urine Fentanyl Screen Ur Barbiturates Screen Ur Phencyclidine Scrn Ur Amphetamines Screen U Benzodiazepines Scrn Urine Cocaine Screen U Marijuana (THC) Screen Ethyl Alcohol COVID-19 (TANA) COVID-19 Authernative 06/05/21 06/05/21 06/05/21 08:28 11:14 16:30 WBC RBC Hgb Hct MCV MCH MCHC RDW Plt Count MPV Immature Gran % (Auto) Neut % (Auto) Lymph % (Auto) Josephine % (Auto) Eos % (Auto) Baso % (Auto) Lymph # (Auto) Josephine # (Auto) Eos # (Auto) Baso # (Auto) Abs Immat Gran (auto) Absolute Neuts (auto) Absolute Nucleated RBC Nucleated RBC % (auto) Sodium Potassium Chloride Carbon Dioxide Anion Gap BUN Creatinine Estim Creat Clear Calc Estimated GFR POC Glucose 304 H 255 H 171 H Random Glucose Estimat Average Glucose Hemoglobin A1c % Calcium Magnesium Total Bilirubin Direct Bilirubin AST ALT Alkaline Phosphatase Total Protein Albumin Triglycerides Cholesterol LDL Cholesterol, Calc HDL Cholesterol Vitamin B12 Folate TSH Free T4 Urine Opiates Screen Urine Fentanyl Screen Ur Barbiturates Screen Ur Phencyclidine Scrn Ur Amphetamines Screen U Benzodiazepines Scrn Urine Cocaine Screen U Marijuana (THC) Screen Ethyl Alcohol COVID-19 (TANA) [employer] 06/05/21 06/06/21 06/06/21 20:09 07:56 12:01 WBC RBC Hgb Hct MCV MCH MCHC RDW Plt Count MPV Immature Gran % (Auto) Neut % (Auto) Lymph % (Auto) Josephine % (Auto) Eos % (Auto) Baso % (Auto) Lymph # (Auto) Josephine # (Auto) Eos # (Auto) Baso # (Auto) Abs Immat Gran (auto) Absolute Neuts (auto) Absolute Nucleated RBC Nucleated RBC % (auto) Sodium Potassium Chloride Carbon Dioxide Anion Gap BUN Creatinine Estim Creat Clear Calc Estimated GFR POC Glucose 238 H 253 H 255 H Random Glucose Estimat Average Glucose Hemoglobin A1c % Calcium Magnesium Total Bilirubin Direct Bilirubin AST ALT Alkaline Phosphatase Total Protein Albumin Triglycerides Cholesterol LDL Cholesterol, Calc HDL Cholesterol Vitamin B12 Folate TSH Free T4 Urine Opiates Screen Urine Fentanyl Screen Ur Barbiturates Screen Ur Phencyclidine Scrn Ur Amphetamines Screen U Benzodiazepines Scrn Urine Cocaine Screen U Marijuana (THC) Screen Ethyl Alcohol COVID-19 (TANA) [email or web address] 06/06/21 06/06/21 06/07/21 16:49 20:39 06:18 WBC RBC Hgb Hct MCV MCH MCHC RDW Plt Count MPV Immature Gran % (Auto) Neut % (Auto) Lymph % (Auto) Josephine % (Auto) Eos % (Auto) Baso % (Auto) Lymph # (Auto) Josephine # (Auto) Eos # (Auto) Baso # (Auto) Abs Immat Gran (auto) Absolute Neuts (auto) Absolute Nucleated RBC Nucleated RBC % (auto) Sodium Potassium Chloride Carbon Dioxide Anion Gap BUN Creatinine Estim Creat Clear Calc Estimated GFR POC Glucose 222 H 240 H 187 H Random Glucose Estimat Average Glucose Hemoglobin A1c % Calcium Magnesium Total Bilirubin Direct Bilirubin AST ALT Alkaline Phosphatase Total Protein Albumin Triglycerides Cholesterol LDL Cholesterol, Calc HDL Cholesterol Vitamin B12 Folate TSH Free T4 Urine Opiates Screen Urine Fentanyl Screen Ur Barbiturates Screen Ur Phencyclidine Scrn Ur Amphetamines Screen U Benzodiazepines Scrn Urine Cocaine Screen U Marijuana (THC) Screen Ethyl Alcohol COVID-19 (TANA) COVID-19 Clin Com DS: Summary Status at Discharge Cognitive/behavioral status at discharge: Admission to adult psychiatry to address symptoms of recurrent major depression, moderate, polysubstance abuse, opiate use disorder, cocaine use disorder and diabetes. Care plan, medication regime and out patient plan of care prior to admission were reviewed. Education was provided regarding managment of symptoms, medication and side effects. Nursing and mental health social worker worked with Matthew on collateral contacts, care plan, education regarding management of symptoms, medications and discharge planning. Cymbalta and Gabapentin were titrated. Seroquel prn was initiated along with Trazodone. Magnesium was initiated, Functional status at discharge: wheelchair bound Overall status at discharge: patient is back to baseline Time Spent with Patient Time attestation: Total time spent providing and/or coordinating discharge services: 35 Time spent: Greater than 30 minutes Discharge Plan Discharge Patient Disposition: Home, Self-Care Discharge Diagnosis: Recurrent major depression, moderate Polysubstance Abuse Opioid Use Disorder Stimulant Use Disorder, Cocaine Diabetes Referrals: Bryanna Patiño RN [Other] - 06/07/21 (FAX [phone]) [facility] [Other] - 06/27/21 3:15 pm (You follow up appointment for psychiatry is scheduled with Tyson Em at [facility] for 06/27/21 at 3:15pm, this appointment is by phone. There is a waitlist for therapy and it will be a month. The agency will contact you with appointment for therapy.) [facility] [Other] - 06/07/21 (Your case assistant Shital somers [facility] will resume at time of discharge. ) [facility] [Other] - 06/17/21 10:00 am (Your scheduled tour of program is 06/17/21 at 10am. [facility] will provide you with transportation to program on that day and will contact you prior to confirm. Your enrollment into program is 06/25/21.) Beatrice Diallo NP [Nurse Practitioner] - 06/10/21 9:40 am (im office) Discharge Medications: New trazodone 50 mg Tablet 50 mg PO BEDTIME PRN (Reason: Insomnia) Qty: 30 0RF magnesium oxide 400 mg (241.3 mg magnesium) Tablet 400 mg PO DAILY Qty: 30 0RF gabapentin 300 mg Capsule 600 mg PO TID Qty: 180 0RF duloxetine 60 mg Capsule,Delayed Release(Dr/Ec) 60 mg PO DAILY Qty: 30 0RF quetiapine 50 mg Tablet 50 mg PO Q6H PRN (Reason: agitation, anxiety) Qty: 60 0RF naloxone [Narcan] 4 mg/actuation spray,non-aerosol 4 mg intranasal Q2M PRN (Reason: opioid overdose) Qty: 2 0RF Rx Instructions: spray 1 dose into ONE nostril; alternate nostrils w each dose until help arrives Continued ondansetron 4 mg tablet,disintegrating 4 mg PO Q6-8H PRN (Reason: nausea and vomiting) Qty: 14 0RF atorvastatin 40 mg Tablet 40 mg PO DAILY Qty: 30 0RF sucralfate [Carafate] 1 gram tablet 1 g PO QID 30 Days Qty: 120 0RF quetiapine 100 mg Tablet 100 mg PO BEDTIME Qty: 30 0RF nicotine 21 mg/24 hr Patch 24 Hour 21 mg transdermal DAILY Qty: 30 0RF omeprazole 20 mg Capsule,Delayed Release(Dr/Ec) 20 mg PO BID@0630,1630 Qty: 60 0RF metoprolol succinate 25 mg Tablet Extended Release 24 Hr 25 mg PO DAILY Qty: 30 0RF Protocol: Hold for SBP/HR < HOLD for SBP < : 90 HOLD for HR < : 60 metformin 500 mg Tablet Extended Release 24 Hr 1,000 mg PO BID Qty: 120 0RF fenofibrate 54 mg Tablet 54 mg PO DAILY Qty: 30 0RF (DME) blood-glucose meter Kit See Rx Instructions .Route Qty: 1 0RF Rx Instructions: As directed Discontinued gabapentin 300 mg Capsule 600 mg PO TID Qty: 60 0RF duloxetine 30 mg Capsule,Delayed Release(Dr/Ec) 30 mg PO DAILY Qty: 30 0RF Discharge Orders: Discharge Order (Routine); Ordered 06/07/21 Ordered By: Cely Miller Diet: diabetic diet Activity on Discharge: As tolerated Stand Alone Forms: Patient Portal Discharge page, Community Support Care Plan Goals: No suicidality or homicidality Stabilization of mood Sobriety Stabilization of blood sugar levels Health Concerns: Recurrent major depression Polysubstance abuse Opioid Use Disorder Stimulant Use Disorder-Cocaine Diabetes Plan of Treatment: Work with assigned [facility] communications representative Attend scheduled appointments Take medications as directed Apply for [facility] services for 06/25/21. Assessment: Non suicidal, non psychotic Discharge Date/Time: 06/07/21 10:00
== END 2021-06-07 10:00 | disposition home or self-care (01) | DRG 751 ==
LOC: HO.ED 16:11 → HO.PM5 06-01 12:54
PROVIDERS: Registered Nurse; Admitting Provider Psychiatry & Neurology Psychiatry; Emergency Provider Emergency Medicine; Visit Provider Clinical Nurse Specialist Psychiatric/Mental Health, Adult
DX: F33.1 Major depressive disorder, recurrent, moderate (principal); R45.851 Suicidal ideations; F11.20 Opioid dependence, uncomplicated; F14.10 Cocaine abuse, uncomplicated; F17.210 Nicotine dependence, cigarettes, uncomplicated; Z71.6 Tobacco abuse counseling; Z79.899 Other long term (current) drug therapy
CPT/HCPCS: 36415; 80048; 80061; 80076; 80307; 82077; 82607; 82746; 82947; 83036; 83735; 84439; 84443; 85025; 87635; 93005; 99285

== ENCOUNTER 2021-06-26 15:13 | Inpatient (IN) | payer OTHER, MEDICAID, SELFPAY ==
--- NOTE | 2021-06-26 | ECG_ITS ---
Test Reason : MED CLEARANCE Blood Pressure : / mmHG Vent. Rate : 093 BPM Atrial Rate : 093 BPM P-R Int : 194 ms QRS Dur : 098 ms QT Int : 350 ms P-R-T Axes : 031 023 067 degrees QTc Int : 435 ms Normal sinus rhythm Cannot rule out Inferior infarct , age undetermined Abnormal ECG When compared with ECG of 31-MAY-2021 12:33, No significant change was found Referred By: Tatiana Hawk Electronically Signed By:Stanley Luna
--- NOTE | 2021-06-26 15:39 | ED.PSYCH ---
HPI - Psych General Chief Complaint: Psychiatric Symptoms Stated Complaint: SEC12,SI W/PLAN,SEEN IN COM,BED SEARCH IN PROGRESS Time Seen by Provider: 06/26/21 15:16 Source: patient Mode of arrival: ambulatory Limitations: no limitations History of Present Illness HPI Narrative: Patient is a 61 year old male presenting to the emergency department today on a section 12, with suicidal ideation. Patient states that he has sucidial ideation but no plan and has been using cocaine when payday arrives. Patient denies any dizziness, lightheadedness, abdominal pain, nausea, vomiting, fever, chills, blurry vision, double vision, loss of vision, chest pain, difficulty breathing, shortness of breath, back pain, night sweats, pain with urination, increased urinary frequency, increased urinary urgency, blood in his urine or stool, syncope or a near syncopal episode, recent trauma or falls, bowel incontinence, bladder incontinence, bowel retention, bladder retention, or any other complaints at this time. MD complaint: suicidal ideation and substance abuse Related Data Home Medications Medication Instructions Recorded Confirmed atorvastatin 40 mg tablet 1 tab PO BEDTIME 06/26/21 06/26/21 duloxetine 60 mg capsule,delayed 60 mg PO QAM 06/26/21 06/26/21 release fenofibrate 54 mg tablet 54 mg PO QAM 06/26/21 06/26/21 magnesium oxide 400 mg (241.3 mg 400 mg PO QAM 06/26/21 06/26/21 magnesium) tablet metoprolol succinate 25 mg 25 mg PO BEDTIME 06/26/21 06/26/21 tablet,extended release 24 hr pantoprazole 20 mg tablet,delayed 20 mg PO BID 06/26/21 06/26/21 release Previous Rx's Medication Instructions Recorded blood-glucose meter #1 ea 03/26/21 gabapentin 300 mg capsule 600 mg PO TID #180 cap 06/06/21 metformin 500 mg tablet,extended 1,000 mg PO BID #120 tab 06/06/21 release 24 hr quetiapine 100 mg tablet 100 mg PO BEDTIME #30 tab 06/06/21 quetiapine 50 mg tablet 50 mg PO Q6H PRN #60 tab 06/06/21 sucralfate 1 gram tablet (Carafate) 1 g PO QID 30 Days #120 tab 06/06/21 trazodone 50 mg tablet 50 mg PO BEDTIME PRN #30 tab 06/06/21 Allergies Allergy/AdvReac Type Severity Reaction Status Date / Time No Known Allergies Allergy Verified 05/31/21 11:24 Review of Systems Constitutional: Constitutional: Reports no additional constitutional complaints, Denies chills, Denies fever(s) and Denies night sweats Eyes: Eyes: Reports no additional eye complaints, Denies blurry vision, Denies change in vision, Denies diplopia, Denies eye discharge, Denies loss of vision and Denies eye pain ENT: Denies dizziness Cardiovascular: Cardiovascular: Reports no additional cardiovascular complaints, Denies chest pain, Denies lightheadedness, Denies Loss of Consciousness and Denies dyspnea Respiratory: Respiratory: Reports no additional respiratory complaints and Denies dyspnea Gastrointestinal: Gastrointestinal: Reports no additional gastrointestinal complaints, Denies abdominal pain, Denies melena, Denies hematochezia, Denies change in bowel habits and Denies change in stool character Genitourinary: Genitourinary: Reports no additional male genitourinary complaints, Denies hematuria, Denies oliguria, Denies difficulty urinating, Denies dysuria, Denies urinary frequency, Denies urinary hesitancy, Denies urinary incontinence and Denies urinary urgency Musculoskeletal: Musculoskeletal: Reports no additional musculoskeletal complaints, Denies numbness and Denies tingling Neurologic: Denies dizziness, Denies loss of vision, Denies numbness and Denies tingling Psychiatric: Psychiatric: Reports no additional psychiatric complaints and Reports suicidal ideation Endocrine: Endocrine: Reports no additional endocrine complaints Hematologic/Lymphatic: Hematologic/Lymphatic: Reports no additional hematologic/lymphatic complaints Allergic/Immunologic: Allergic/Immunologic: Reports no additional allergic/immunologic complaints [facility] [place] Past Medical History Attestation statement: The following information was validated with the patient. Source: old records reviewed Medical History Acute blood loss anemia Cocaine use disorder, moderate, dependence Diabetes HTN (hypertension) MDD (major depressive disorder), recurrent episode, moderate Opioid use disorder, mild, in sustained remission Social History Social History Household Members: None Housing: Apartment Do you presently have visiting nurse or other home services: No Unable to assess alcohol history related to: Unknown Alcohol intake: current Alcohol intake frequency: does not drink Patient Tobacco Use Status: Current everyday Tobacco user Tobacco use type: Cigarette Cigarette Packs Per Day: 2 Cigarettes Per Day: 40 Second Hand Smoke Exposure: No Substance Use Type: Crack/Cocaine Advance Directives: No Advance Directives Information Provided: No service: Yes Current occupational status: disabled Sexual orientation: Lesbian/Navarrete/Homosexual Physical Exam Vital Signs: Vital Signs: Last Vital Signs Temp 98.1 F 06/26/21 15:46 Pulse 91 06/26/21 15:46 Resp 18 06/26/21 15:46 BP 174/89 H 06/26/21 15:46 Pulse Ox 97 06/26/21 15:46 BMI result Body Mass Index 31.6 Const: General: cooperative, no acute distress, alert and awake Nutritional Appearance: well nourished Orientation/consciousness: patient oriented x3 Limitations: no limitations HENMT: Head: Yes normal to inspection and Yes atraumatic Ears: hearing grossly normal bilaterally and external ears normal General nose exam: Normal external nose present, no nasal discharge noted and no epistaxis Face and sinus: Yes normal facial exam, No abrasion and No laceration Mouth: Normal oral and palatal mucosa present, no drooling and no muffled voice Eyes: General: appearance normal, both eyes and all related structures Periorbital: periorbital findings normal Eyelids: Yes eyelids normal Conjunctivae: conjunctivae normal Pupils: Equal, round and reactive pupils present EOM: EOMs intact bilaterally Neck: Neck: Yes normal visual inspection, Yes full ROM and Yes no lymphadenopathy Chest: Chest palpation & inspection: normal inspection of the chest Resp: Effort & Inspection: normal respiratory effort and able to speak in complete sentences Auscultation: clear to auscultation bilaterally Cardio: Rate: regular rate Rhythm: regular rhythm GI: Inspection: Yes normal to inspection Neuro: General: patient oriented x3 and moves all extremities Cranial nerves: Yes Equal, round and reactive pupils present Cognition (Neuro): normal cognition Motor exam (neuro): 5/5 motor strength present throughout Sensory Exam: Normal double simultaneous stimulation for sensation Coordination: [id number] test normal Extrem: General: Yes normal to inspection, Yes full ROM and Yes capillary refill normal Psych: Appearance: grossly normal Mental Status: mental status grossly normal Affect: normal affect Attitude: cooperative Thought process: Normal thought process present Thought content: Suicidality present Insight: Good insight present (Psych) MDM - Psych MDM Narrative Medical decision making narrative: Patient is a 61 year old male presenting to the emergency department today with suicidal ideation and currently on a section 12. Patient's physical exam was unremarkable. Patient's blood work was unremarkable. Patient's urine showed recent cocaine use as the patient reported. I explained my physical exam findings as well as all test results to the patient. I answered all questions asked by the patient. Patient has been admitted to the psychiatric unit here. Differential Diagnosis Differential diagnosis: Likely suicidal ideation and depression Medical Records Attestation: I reviewed the patient's medical records. Lab Data Attestation: I reviewed the patient's lab results. Result diagrams: 06/26/21 16:50 06/26/21 16:50 Labs: Lab Results 06/26/21 06/26/21 06/26/21 Range/Units 16:28 16:28 16:50 WBC 5.9 (4.8-10.8) X10*3/uL RBC 4.92 (4.60-5.80) X10*6/uL Hgb 13.3 L (14.0-18.0) g/dl Hct 40.0 L (42.0-52.0) % MCV 81.3 (80.0-98.0) fL MCH 27.0 (27.0-33.0) pg MCHC 33.3 (31.0-36.0) g/dl RDW 13.9 (11.0-16.0) % Plt Count 246 (160-400) X10*3/uL MPV 9.7 (9.4-12.4) fL Immature Gran % (Auto) 0.3 (0.0-0.4) % Neut % (Auto) 64.7 (45-73) % Lymph % (Auto) 23.2 (20-40) % [place] % (Auto) 10.5 (2-11) % Eos % (Auto) 0.8 (0-4) % Baso % (Auto) 0.5 (0-2) % Lymph # (Auto) 1.4 (1.2-4.9) X10*3/uL [place] # (Auto) 0.6 (0.1-1.2) X10*3/uL Eos # (Auto) 0.1 (0.0-0.4) X10*3/uL Baso # (Auto) 0.0 (0.0-0.2) X10*3/uL Abs Immat Gran (auto) 0.02 (0.00-0.03) X10*3/uL Absolute Neuts (auto) 3.8 (2.0-8.3) x10*3/uL Absolute Nucleated RBC 0.000 (0.0-0.012) X10*3/uL Nucleated RBC % (auto) 0.0 (0.0-0.2) /100WBC Sodium (135-145) mmol/L Potassium (3.3-5.1) mmol/L Chloride (96-108) mmol/L Carbon Dioxide (22-29) mmol/L Anion Gap (12-20) BUN (9-16) mg/dL Creatinine (0.5-1.4) mg/dL Estim Creat Clear Calc Estimated GFR Fasting Glucose (60-99) mg/dL Calcium (8.4-10.2) mg/dL Total Bilirubin (0.0-1.0) mg/dL AST (5-37) U/L ALT (0-40) U/L Alkaline Phosphatase (39-117) U/L Total Protein (6.5-8.0) g/dL Albumin (3.5-5.0) g/dL Urine Opiates Screen Not Detected (Not Detect) Urine Fentanyl Screen Not Detected (Not Detect) Ur Barbiturates Screen Not Detected (Not Detect) Ur Phencyclidine Scrn Not Detected (Not Detect) Ur Amphetamines Screen Not Detected (Not Detect) U Benzodiazepines Scrn Not Detected (Not Detect) Urine Cocaine Screen POSITIVE H (Not Detect) U Marijuana (THC) Screen Not Detected (Not Detect) Ethyl Alcohol mg/dL COVID-19 ([facility]) Negative (Negative) COVID-19 Clin Com See Note 06/26/21 06/26/21 Range/Units 16:50 16:50 WBC (4.8-10.8) X10*3/uL RBC (4.60-5.80) X10*6/uL Hgb (14.0-18.0) g/dl Hct (42.0-52.0) % MCV (80.0-98.0) fL MCH (27.0-33.0) pg MCHC (31.0-36.0) g/dl RDW (11.0-16.0) % Plt Count (160-400) X10*3/uL MPV (9.4-12.4) fL Immature Gran % (Auto) (0.0-0.4) % Neut % (Auto) (45-73) % Lymph % (Auto) (20-40) % [place] % (Auto) (2-11) % Eos % (Auto) (0-4) % Baso % (Auto) (0-2) % Lymph # (Auto) (1.2-4.9) X10*3/uL [place] # (Auto) (0.1-1.2) X10*3/uL Eos # (Auto) (0.0-0.4) X10*3/uL Baso # (Auto) (0.0-0.2) X10*3/uL Abs Immat Gran (auto) (0.00-0.03) X10*3/uL Absolute Neuts (auto) (2.0-8.3) x10*3/uL Absolute Nucleated RBC (0.0-0.012) X10*3/uL Nucleated RBC % (auto) (0.0-0.2) /100WBC Sodium 135 (135-145) mmol/L Potassium 4.0 (3.3-5.1) mmol/L Chloride 101 (96-108) mmol/L Carbon Dioxide 24 (22-29) mmol/L Anion Gap 14 (12-20) BUN 11 D (9-16) mg/dL Creatinine 0.93 (0.5-1.4) mg/dL Estim Creat Clear Calc 89.3 Estimated GFR > 60 Fasting Glucose 253 H D (60-99) mg/dL Calcium 10.0 (8.4-10.2) mg/dL Total Bilirubin 0.7 (0.0-1.0) mg/dL AST 29 (5-37) U/L ALT 32 (0-40) U/L Alkaline Phosphatase 74 (39-117) U/L Total Protein 7.6 (6.5-8.0) g/dL Albumin 4.7 (3.5-5.0) g/dL Urine Opiates Screen (Not Detect) Urine Fentanyl Screen (Not Detect) Ur Barbiturates Screen (Not Detect) Ur Phencyclidine Scrn (Not Detect) Ur Amphetamines Screen (Not Detect) U Benzodiazepines Scrn (Not Detect) Urine Cocaine Screen (Not Detect) U Marijuana (THC) Screen (Not Detect) Ethyl Alcohol < 10 mg/dL COVID-19 ([facility]) (Negative) COVID-19 Clin Com Discharge Plan Discharge Clinical Impression: Cocaine use disorder, MDD (major depressive disorder), recurrent episode, moderate Patient Disposition: Admitted As Inpatient Discharge Date/Time: 06/26/21 20:53
[2021-06-26 15:46] VITALS: BP 138/88; BP 174/89; PULSE 75; PULSE 91; RESP 18; TEMP 36.7; O2SAT 95; O2SAT 97; BMI 31.6
[2021-06-26 16:54] LABS: Amphetamine Screen Urine Not Detected (Not Detect); Barbiturates, Urine Not Detected (Not Detect); Benzodiazepines Screen Urine Not Detected (Not Detect); COVID-19 Test Negative (Negative); Cannabinoid Screen Urine Not Detected (Not Detect); Cocaine Screen Urine POSITIVE (Not Detect); Fentanyl, urine Not Detected (Not Detect); IDNOW Serial# 16C4AD1C; Opiate Screen Urine Not Detected (Not Detect); Phencyclidine Screen Urine Not Detected (Not Detect)
[2021-06-26 16:55] LABS: MANUAL DIFF FLAG NO
[2021-06-26 17:04] LABS: Basophils Percent Auto 0.5 % (0-2); Eosinophils Absolute Auto 0.1 X10*3/uL (0.0-0.4); Eosinophils Percent Auto 0.8 % (0-4); Hemoglobin 13.3 g/dl (14.0-18.0); Imm Gran Abs Auto 0.02 X10*3/uL (0.00-0.03); Imm Gran Pct Auto 0.3 % (0.0-0.4); Lymphocytes Absolute Auto 1.4 X10*3/uL (1.2-4.9); Lymphocytes Percent Auto 23.2 % (20-40); Mean Corpuscular HGB Conc 33.3 g/dl (31.0-36.0); Mean Corpuscular Volume 81.3 fL (80.0-98.0); Mean Platelet Volume 9.7 fL (9.4-12.4); Monocytes Absolute Auto 0.6 X10*3/uL (0.1-1.2); Monocytes Percent Auto 10.5 % (2-11); Neutrophils Absolute Auto 3.8 x10*3/uL (2.0-8.3); Neutrophils Percent Auto 64.7 % (45-73); Platelet Count 246 X10*3/uL (160-400); Red Blood Count 4.92 X10*6/uL (4.60-5.80); Red Cell Distribution Width 13.9 % (11.0-16.0); White Blood Count 5.9 X10*3/uL (4.8-10.8)
[2021-06-26 17:08] LABS: Ethanol < 10 mg/dL
[2021-06-26 17:11] LABS: Alanine Aminotransferase 32 U/L (0-40); Albumin Level 4.7 g/dL (3.5-5.0); Alkaline Phosphatase 74 U/L (39-117); Anion Gap 14 (12-20); Aspartate Amino Transferase 29 U/L (5-37); Bilirubin Total 0.7 mg/dL (0.0-1.0); Blood Urea Nitrogen 11 mg/dL (9-16); Carbon Dioxide 24 mmol/L (22-29); Chloride 101 mmol/L (96-108); Creatinine Clr Calc Pharmacy 89.3; Estimated Glomerular Filt Rate > 60; Glucose Fasting 253 mg/dL (60-99); Sodium 135 mmol/L (135-145); Total Protein 7.6 g/dL (6.5-8.0)
--- NOTE | 2021-06-26 19:49 | MHC.CARE ---
Per [facility] Work Room - [facility] will call will auth number in the morning
[2021-06-26 21:30] VITALS: BP 147/75; PULSE 93; RESP 18; TEMP 36.6; O2SAT 95
[2021-06-26] MEDS: metFORMIN HCl ER 500 MG TAB.ER.24H 1000 MG PO (22:11)
[2021-06-26] MEDS: Metoprolol Succinate ER 25 MG TAB.ER.24H PO (22:11)
[2021-06-26] MEDS: QUEtiapine Fumarate 100 MG TABLET PO (22:11)
--- NOTE | 2021-06-26 22:11 | HO.PSYADMNOT ---
HPI Date of Service: 06/26/21 Chief Complaint: SI,Depression HPI Subjective Notes: Gomez Warning and Conditional Voluntary Healthcare Proxy: No Guardianship: No Medical Problems Affecting Mental Status: No Narrative: Matthew is a 61 y.o. male presenting to the ED on 06/26/21 on a section 12a due to SI with plan to cut his neck and relapse on crack cocaine. Per crisis eval, pt?[facility] requested assessment. He spent his entire benefit check ($900) on crack cocaine yesterday, 06/25/2021. Recent admission to [facility] 06/01/21-06/07/21 due to similar presentations. During last admission, his cymbalta and gabapentin were titrated and seroquel PRN, trazodone, and magnesium were initiated with benefit. No alcohol abuse. Utox positive for cocaine. EKG NSR, QTc 435. I evaluated the pt this evening and upon interview he reports he is ?not good, i?m having another breakdown,? having ?suicidal ideation and stuff.? Per pt, ?I really need a program like rehab,? interested in a 28 day program due to cocaine crack addiction. Denies withdrawal. Has been non-adherent with psych meds for a couple days. Identifies precipitating factors as the winter time and says his joints are hurting all the time. Says he thinks he needs ?maybe pain medication of some sort, gabapentin doesn?t help me as much as i thought it would.? Says seroquel helps with sleep and he has been utilizing PRN seroquel for anxiety. However, per pt ?I think I need more pain medication.? Denies benefit on Tylenol, ibuprofen, or topical agents. Per pt, ?pain leads to depression and drugs.??Says he feels safe. No psychotic sx. No hx of manic or hypomanic episodes endorsed. Past Psychiatric History: -No current OP providers (did not follow up with referrals since last admission) -Hx of IPLOC, last at [facility] in May 2021, Feb 2021. Hx of IPLOC at [facility] in [facility]. -Suicide attempts: none -Past medication trials: seroquel, cymbalta, gabapentin Medical Evaluation Reviewed: Yes [facility] Medical History Acute blood loss anemia Cocaine use disorder, moderate, dependence Diabetes HTN (hypertension) MDD (major depressive disorder), recurrent episode, moderate Opioid use disorder, mild, in sustained remission Family History: uncle- completed suicide Social History: -Pt for 30 years with male partner, now but states they are somewhat close. -No children. Served in . -Pt lives alone, waiting to get into the [employer] [facility] -He has limited social supports. Per chart, he had 6 siblings but all are except a brother in [place] who he does not talk to. Substance History: -Utox positive for cocaine, spent $900 on crack cocaine on 06/25/2021 Trauma History: denies Diagnostics Vital Signs (24Hr): Vital Signs - 24 hr 06/26/21 15:46 Temperature 98.1 F Pulse Rate 91 Respiratory Rate 18 Blood Pressure 174/89 H Pulse Oximetry 97 BMI result Body Mass Index 31.6 Labs Results: 06/26/21 16:50 06/26/21 16:50 Labs: Laboratory Results - last 48 hr 06/26/21 06/26/21 06/26/21 16:28 16:28 16:50 WBC 5.9 RBC 4.92 Hgb 13.3 L Hct 40.0 L MCV 81.3 MCH 27.0 MCHC 33.3 RDW 13.9 Plt Count 246 MPV 9.7 Immature Gran % (Auto) 0.3 Neut % (Auto) 64.7 Lymph % (Auto) 23.2 [place] % (Auto) 10.5 Eos % (Auto) 0.8 Baso % (Auto) 0.5 Lymph # (Auto) 1.4 [place] # (Auto) 0.6 Eos # (Auto) 0.1 Baso # (Auto) 0.0 Abs Immat Gran (auto) 0.02 Absolute Neuts (auto) 3.8 Absolute Nucleated RBC 0.000 Nucleated RBC % (auto) 0.0 Sodium Potassium Chloride Carbon Dioxide Anion Gap BUN Creatinine Estim Creat Clear Calc Estimated GFR Fasting Glucose Calcium Total Bilirubin AST ALT Alkaline Phosphatase Total Protein Albumin Urine Opiates Screen Not Detected Urine Fentanyl Screen Not Detected Ur Barbiturates Screen Not Detected Ur Phencyclidine Scrn Not Detected Ur Amphetamines Screen Not Detected U Benzodiazepines Scrn Not Detected Urine Cocaine Screen POSITIVE H U Marijuana (THC) Screen Not Detected Ethyl Alcohol COVID-19 ([facility]) Negative COVID-19 Clin Com See Note 06/26/21 06/26/21 16:50 16:50 WBC RBC Hgb Hct MCV MCH MCHC RDW Plt Count MPV Immature Gran % (Auto) Neut % (Auto) Lymph % (Auto) [place] % (Auto) Eos % (Auto) Baso % (Auto) Lymph # (Auto) [place] # (Auto) Eos # (Auto) Baso # (Auto) Abs Immat Gran (auto) Absolute Neuts (auto) Absolute Nucleated RBC Nucleated RBC % (auto) Sodium 135 Potassium 4.0 Chloride 101 Carbon Dioxide 24 Anion Gap 14 BUN 11 D Creatinine 0.93 Estim Creat Clear Calc 89.3 Estimated GFR > 60 Fasting Glucose 253 H D Calcium 10.0 Total Bilirubin 0.7 AST 29 ALT 32 Alkaline Phosphatase 74 Total Protein 7.6 Albumin 4.7 Urine Opiates Screen Urine Fentanyl Screen Ur Barbiturates Screen Ur Phencyclidine Scrn Ur Amphetamines Screen U Benzodiazepines Scrn Urine Cocaine Screen U Marijuana (THC) Screen Ethyl Alcohol < 10 COVID-19 ([facility]) COVID-19 Clin Com Meds/Allergies Meds Home Medications Acetaminophen (Acetaminophen 325 Mg Tablet) 650 mg PO Q6H PRN PRN Reason: Headache/Pain Mild Scale (1-3) Al Hydroxide/Mg Hydroxide (Magnesium Hydrox/Alum Hydrox 30 Ml Oral.Susp) 30 ml PO Q6H PRN PRN Reason: Heartburn/Nausea Atorvastatin Calcium (Atorvastatin Calcium 40 Mg Tablet) 40 mg PO BEDTIME [facility] Last Admin: 06/26/21 22:12 Dose: 40 mg Documented by: Duloxetine HCl (Duloxetine Hcl 60 Mg Capsule.Dr) 60 mg PO DAILY [facility] Fenofibrate (Fenofibrate 54 Mg Tablet) 54 mg PO DAILY [facility] Gabapentin (Gabapentin 400 Mg Capsule) 800 mg PO TID [facility] Hydroxyzine HCl (Hydroxyzine Hcl 25 Mg Tablet) 25 mg PO Q6H PRN PRN Reason: Anxiety Magnesium Hydroxide (Milk Of Magnesia 30 Ml Oral.Susp) 30 ml PO DAILY PRN PRN Reason: Constipation Magnesium Oxide (Magnesium Oxide 400 Mg Tablet) 400 mg PO DAILY [facility] Metformin HCl (Metformin Hcl Er 500 Mg Tab.Er.24h) 1,000 mg PO BID [facility] Last Admin: 06/26/21 22:11 Dose: 1,000 mg Documented by: Metoprolol Succinate (Metoprolol Succinate Er 25 Mg Tab.Er.24h) 25 mg PO BEDTIME [facility]; Protocol Last Admin: 06/26/21 22:11 Dose: 25 mg Documented by: Omeprazole (Omeprazole 20 Mg Capsule.) 20 mg PO BID@0630,1630 [facility] Quetiapine Fumarate (Quetiapine Fumarate 50 Mg Tablet) 50 mg PO Q6H PRN PRN Reason: agitation, anxiety Quetiapine Fumarate (Quetiapine Fumarate 100 Mg Tablet) 100 mg PO BEDTIME [facility] Last Admin: 06/26/21 22:11 Dose: 100 mg Documented by: Sucralfate (Sucralfate 1 Gm Tablet) 1 gm PO QID [facility] Last Admin: 06/26/21 22:12 Dose: 1 gm Documented by: Trazodone HCl (Trazodone Hcl 50 Mg Tablet) 50 mg PO BEDTIME PRN PRN Reason: Insomnia Allergies Allergies Allergy/AdvReac Type Severity Reaction Status Date / Time No Known Allergies Allergy Verified 05/31/21 11:24 Mental Status Exam Mental Status Exam Narrative: A&O. Pt ambulates in wheelchair, lying down in bed, hair is long. Good eye contact, attentive. No Tics or Tremors. No abnormal involuntary movements. Calm, cooperative, engaged. Non-pressured speech, spontaneous with regular rate and rhythm, normal volume and prosody. No prolonged speech latency, some dysarthria, has missing teeth. Mood is ?depressed,? affect is tired. Denies SI/SIB/HI upon inquiry. Denies A/VH or delusional thought content. Thoughts are coherent, organized. No known cognitive or memory impairment. Insight/ Judgment fair and adequate. Assessment & Plan Assessment & Plan (1) Cocaine use disorder: Status: Acute Code(s): F14.10 - Cocaine abuse, uncomplicated (2) MDD (major depressive disorder), recurrent episode, moderate: Status: Acute Code(s): F33.1 - Major depressive disorder, recurrent, moderate Plan Matthew is a 61 y.o. Male who carries a dx of MDD, recurrent and crack cocaine relapse. He presented to [facility] on 06/26/21 due to reporting depression, SI. Has chronic pain issues and ambulates in a wheelchair, hx of being on suboxone. He has been non-adherent with psych meds for a couple days. No OP psych providers, did not follow up with referrals since recent discharge from . Pt is working with [facility] program. Hx of VNA. Plan: Will increase gabapentin to 800 mg TID to help with mood stability, pain. Discussed limitations of utilizing NSAIDs for joint pain due to hx of upper GI bleeds. CV Q15 min safety checks Monitor response to medications. Monitor for safety in the milieu. Discharge on stabilization. Patient seen. Chart reviewed. Discussed with team. Obtain collateral contact info?as needed Patient educated on: diagnosis and medication risk/benefits Reason for continued inpatient stay Substantial Risk for: harm to self and med/psych decompensation
[2021-06-26] MEDS: Atorvastatin Calcium 40 MG TABLET PO (22:12)
[2021-06-26] MEDS: Sucralfate 1 GM TABLET PO (22:12)
--- NOTE | 2021-06-26 22:42 | PC.ADMIT ---
Patient 61 year-old with history of HTN, Hyperlipidemia,Diabetes M. type 2, Chronic pain was seen in the ED at [facility] for SI and unspecified depressive disorder . After observation patient was transferred via wheelchair to the unit for continue evaluation and monitoring. Patient reported feeling depressed and sad . He wanted to kill himself to finish with everything. Patient was reported not compliant with medications and spent a lot of money on crack and cocaine. Patient was pleasant ,alert, oriented x3. Patient wears glasses at baseline.. HS,LS,BS not listen to. No complaint of nausea, no vomiting,no SOB, no cough. Patient declined complete assessment.Patient uses wheelchair to ambulate. Patient was admitted to the unit tonight at 20:30 for further investigation and better management.
[2021-06-27 06:00] VITALS: BP 156/82; PULSE 90; TEMP 36.7; O2SAT 97
[2021-06-27 07:05] VITALS: BP 156/82; PULSE 90; TEMP 36.7; O2SAT 97
[2021-06-27] MEDS: Fenofibrate 54 MG TABLET PO (09:02)
[2021-06-27] MEDS: DULoxetine HCl 60 MG CAPSULE.DR PO (09:02)
[2021-06-27] MEDS: Omeprazole 20 MG CAPSULE.DR PO ×2 (09:02→17:24)
[2021-06-27] MEDS: Gabapentin 400 MG CAPSULE 800 MG PO ×3 (09:02→19:27)
[2021-06-27] MEDS: Magnesium Oxide 400 MG TABLET PO (09:03)
[2021-06-27] MEDS: metFORMIN HCl ER 500 MG TAB.ER.24H 1000 MG PO ×2 (09:03→19:25)
[2021-06-27 09:18] LABS: Estimated Average Glucose 166 mg/dL; Hemoglobin A1c % 7.4 %
[2021-06-27] MEDS: Sucralfate 1 GM TABLET PO ×4 (09:27→19:26)
[2021-06-27 09:43] LABS: Cholesterol 185 mg/dL; HDL Cholesterol 22 mg/dL; LDL Cholesterol Calculated 96 mg/dl; Magnesium 1.9 mg/dL (1.6-2.6); Triglycerides 336 mg/dL
[2021-06-27 09:56] LABS: Free T4 (Free Thyroxine) 0.74 ng/dL (0.71-1.85); Thyroid Stimulating Hormone 1.38 uIU/mL (0.32-4.0)
[2021-06-27 10:55] LABS: Folate 7.6 ng/mL (> or = 4.0); Vitamin B12 484 pg/mL (200-900)
[2021-06-27 18:00] VITALS: BP 132/79; PULSE 84; RESP 16; TEMP 36.4; O2SAT 97
--- NOTE | 2021-06-27 19:05 | P.PNPSI_ITS ---
Subjective Subjective Date of Service: 06/27/21 Reason For Visit: SI,Depression Interim History: I left, started using and did not take the medicine. I am not sure what I need now. I do need to think-I may need a 28 day program and a new living situation. I will let you know. The pain is terrible. SI remains-plan to cut my throat . Discussed use of $900 crack/cocaine on 06/25 and risk of given increase in Fentanyl inserts. Pt tearful- I don't want to really, but I cannot live like this-I can's manage it. Medication Compliance: No ([employer] no he reports) Side effects from medications: No Attending Groups: Intermittent Review of Systems Acute medical concerns: No Medical Review of Systems: unchanged Review of Systems Musculoskeletal: Reports other (chronic pain) Reports behavioral changes Psychiatric: Reports anxiety, Reports behavioral changes, Reports depression, Reports difficulty concentrating, Reports hopelessness, Reports irritability, Reports anhedonia, Reports mood swings and Reports suicidal ideation Mental Status Exam Mental Status Exam Patient Appearance: Disheveled Patient Orientation: Person, Place, Time and Situation Level of Consciousness: Alert Patient Behavior: Talkative and Good Eye Contact Mood Description: Withdrawn and Depressed Affect Description: Flat Patient Cognition Impaired: No Ability to Follow Directions: Good Speech Pattern: Spontaneous Speech Memory Description: Episodic Impaired Delusions: Paranoid Ideation Perceptual Disturbances: Depersonalization and Derealization Thought Process: Rumination Thought Content: positive for [place], positive for Circumstantial, positive for Perseveration and positive for Suicidal Ideation Depressive Symptoms: Increased Anxiety, Diff. Making Decisions, Increased Irritability, Difficulty Sleeping, Loss of Int. in Activity, Feelings of [place] lessness, Hopelessness, Unhappiness, Increased Fatigue, Thoughts of /Suicide, Low Self Esteem, Loss of Energy, Difficulty Concentrating and Back Pain Judgement: Fair Diagnostics Vital Signs (24Hr): Vital Signs - 24 hr 06/26/21 21:30 06/27/21 06:00 06/27/21 07:05 Temperature 97.9 F 98.1 F 98.1 F Pulse Rate 93 90 90 Respiratory Rate 18 Blood Pressure 147/75 H 156/82 H 156/82 H Pulse Oximetry 95 97 97 BMI result Body Mass Index 31.6 Labs Results: 06/26/21 16:50 06/26/21 16:50 Labs: Laboratory Results - last 48 hr 06/26/21 06/26/21 06/26/21 16:28 16:28 16:50 WBC 5.9 RBC 4.92 Hgb 13.3 L Hct 40.0 L MCV 81.3 MCH 27.0 MCHC 33.3 RDW 13.9 Plt Count 246 MPV 9.7 Immature Gran % (Auto) 0.3 Neut % (Auto) 64.7 Lymph % (Auto) 23.2 Forrest % (Auto) 10.5 Eos % (Auto) 0.8 Baso % (Auto) 0.5 Lymph # (Auto) 1.4 Forrest # (Auto) 0.6 Eos # (Auto) 0.1 Baso # (Auto) 0.0 Abs Immat Gran (auto) 0.02 Absolute Neuts (auto) 3.8 Absolute Nucleated RBC 0.000 Nucleated RBC % (auto) 0.0 Sodium Potassium Chloride Carbon Dioxide Anion Gap BUN Creatinine Estim Creat Clear Calc Estimated GFR Fasting Glucose Estimat Average Glucose Hemoglobin A1c % Calcium Magnesium Total Bilirubin AST ALT Alkaline Phosphatase Total Protein Albumin Triglycerides Cholesterol LDL Cholesterol, Calc HDL Cholesterol Vitamin B12 Folate TSH Free T4 Urine Opiates Screen Not Detected Urine Fentanyl Screen Not Detected Ur Barbiturates Screen Not Detected Ur Phencyclidine Scrn Not Detected Ur Amphetamines Screen Not Detected U Benzodiazepines Scrn Not Detected Urine Cocaine Screen POSITIVE H U Marijuana (THC) Screen Not Detected Ethyl Alcohol COVID-19 ([facility]) Negative COVID-19 Clin Com See Note 06/26/21 06/26/21 06/27/21 16:50 16:50 08:23 WBC RBC Hgb Hct MCV MCH MCHC RDW Plt Count MPV Immature Gran % (Auto) Neut % (Auto) Lymph % (Auto) Forrest % (Auto) Eos % (Auto) Baso % (Auto) Lymph # (Auto) Forrest # (Auto) Eos # (Auto) Baso # (Auto) Abs Immat Gran (auto) Absolute Neuts (auto) Absolute Nucleated RBC Nucleated RBC % (auto) Sodium 135 Potassium 4.0 Chloride 101 Carbon Dioxide 24 Anion Gap 14 BUN 11 D Creatinine 0.93 Estim Creat Clear Calc 89.3 Estimated GFR > 60 Fasting Glucose 253 H D Estimat Average Glucose 166 Hemoglobin A1c % 7.4 Calcium 10.0 Magnesium Total Bilirubin 0.7 AST 29 ALT 32 Alkaline Phosphatase 74 Total Protein 7.6 Albumin 4.7 Triglycerides Cholesterol LDL Cholesterol, Calc HDL Cholesterol Vitamin B12 Folate TSH Free T4 Urine Opiates Screen Urine Fentanyl Screen Ur Barbiturates Screen Ur Phencyclidine Scrn Ur Amphetamines Screen U Benzodiazepines Scrn Urine Cocaine Screen U Marijuana (THC) Screen Ethyl Alcohol < 10 COVID-19 ([facility]) COVID-19 [email or web address] 06/27/21 06/27/21 08:23 08:23 WBC RBC Hgb Hct MCV MCH MCHC RDW Plt Count MPV Immature Gran % (Auto) Neut % (Auto) Lymph % (Auto) Forrest % (Auto) Eos % (Auto) Baso % (Auto) Lymph # (Auto) Forrest # (Auto) Eos # (Auto) Baso # (Auto) Abs Immat Gran (auto) Absolute Neuts (auto) Absolute Nucleated RBC Nucleated RBC % (auto) Sodium Potassium Chloride Carbon Dioxide Anion Gap BUN Creatinine Estim Creat Clear Calc Estimated GFR Fasting Glucose Estimat Average Glucose Hemoglobin A1c % Calcium Magnesium 1.9 Total Bilirubin AST ALT Alkaline Phosphatase Total Protein Albumin Triglycerides 336 Cholesterol 185 D LDL Cholesterol, Calc 96 HDL Cholesterol 22 Vitamin B12 484 Folate 7.6 TSH 1.38 Free T4 0.74 Urine Opiates Screen Urine Fentanyl Screen Ur Barbiturates Screen Ur Phencyclidine Scrn Ur Amphetamines Screen U Benzodiazepines Scrn Urine Cocaine Screen U Marijuana (THC) Screen Ethyl Alcohol COVID-19 ([facility]) COVID-19 Clin Com Medications Medications Current Medications Acetaminophen (Acetaminophen 325 Mg Tablet) 650 mg PO Q6H PRN PRN Reason: Headache/Pain Mild Scale (1-3) Al Hydroxide/Mg Hydroxide (Magnesium Hydrox/Alum Hydrox 30 Ml Oral.Susp) 30 ml PO Q6H PRN PRN Reason: Heartburn/Nausea Atorvastatin Calcium (Atorvastatin Calcium 40 Mg Tablet) 40 mg PO BEDTIME [facility] Last Admin: 06/26/21 22:12 Dose: 40 mg Documented by: Duloxetine HCl (Duloxetine Hcl 60 Mg Capsule.Dr) 60 mg PO DAILY [facility] Last Admin: 06/27/21 09:02 Dose: 60 mg Documented by: Fenofibrate (Fenofibrate 54 Mg Tablet) 54 mg PO DAILY [facility] Last Admin: 06/27/21 09:02 Dose: 54 mg Documented by: Gabapentin (Gabapentin 400 Mg Capsule) 800 mg PO TID [facility] Last Admin: 06/27/21 14:44 Dose: 800 mg Documented by: Hydroxyzine HCl (Hydroxyzine Hcl 25 Mg Tablet) 25 mg PO Q6H PRN PRN Reason: Anxiety Magnesium Hydroxide (Milk Of Magnesia 30 Ml Oral.Susp) 30 ml PO DAILY PRN PRN Reason: Constipation Magnesium Oxide (Magnesium Oxide 400 Mg Tablet) 400 mg PO DAILY [facility] Last Admin: 06/27/21 09:03 Dose: 400 mg Documented by: Metformin HCl (Metformin Hcl Er 500 Mg Tab.Er.24h) 1,000 mg PO BID [facility] Last Admin: 06/27/21 09:03 Dose: 1,000 mg Documented by: Metoprolol Succinate (Metoprolol Succinate Er 25 Mg Tab.Er.24h) 25 mg PO BEDTIME [facility]; Protocol Last Admin: 06/26/21 22:11 Dose: 25 mg Documented by: Omeprazole (Omeprazole 20 Mg Capsule.) 20 mg PO BID@0630,1630 [facility] Last Admin: 06/27/21 17:24 Dose: 20 mg Documented by: Quetiapine Fumarate (Quetiapine Fumarate 50 Mg Tablet) 50 mg PO Q6H PRN PRN Reason: agitation, anxiety Quetiapine Fumarate (Quetiapine Fumarate 100 Mg Tablet) 100 mg PO BEDTIME [facility] Last Admin: 06/26/21 22:11 Dose: 100 mg Documented by: Sucralfate (Sucralfate 1 Gm Tablet) 1 gm PO QID [facility] Last Admin: 06/27/21 17:24 Dose: 1 gm Documented by: Trazodone HCl (Trazodone Hcl 50 Mg Tablet) 50 mg PO BEDTIME PRN PRN Reason: Insomnia Allergies Allergies Allergy/AdvReac Type Severity Reaction Status Date / Time No Known Allergies Allergy Verified 05/31/21 11:24 Assessment & Plan Assessment & Plan (1) Cocaine use disorder: Status: Acute Code(s): F14.10 - Cocaine abuse, uncomplicated (2) MDD (major depressive disorder), recurrent episode, moderate: Status: Acute Code(s): F33.1 - Major depressive disorder, recurrent, moderate Plan Matthew is a 61 y.o. Male who carries a dx of MDD, recurrent and crack cocaine relapse. He presented to [facility] ED on 06/26/21 due to reporting depression, SI. Has chronic pain issues and ambulates in a wheelchair, hx of being on suboxone. He has been non-adherent with psych meds for a couple days. No OP psych providers, did not follow up with referrals since recent discharge from . Pt is working with [employer] program. Hx of VNA. Plan: Will increase gabapentin to 800 mg TID to help with mood stability, pain. Discussed limitations of utilizing NSAIDs for joint pain due to hx of upper GI bleeds. CV Q15 min safety checks Monitor response to medications. Monitor for safety in the milieu. Discharge on stabilization. Patient seen. Chart reviewed. Discussed with team. Obtain collateral contact info?as needed 06/27/21 Continue current regime. Pt reports today noncompliance as an out pt. Will re- establish regime and re-evaluate I spent minutes with the patient and/or on the patient floor today, greater than?50% of which was spent counseling/coordinating care. Patient educated on: diagnosis, medication risk/benefits, substance abuse and therapeutic strategies Informed Consent: understands and further education needed Reason for contiued inpatient stay Substantial Risk for: harm to self, inability to function, rapid decompensation and med/psych decompensation
[2021-06-27] MEDS: QUEtiapine Fumarate 100 MG TABLET PO (19:26)
[2021-06-27] MEDS: Metoprolol Succinate ER 25 MG TAB.ER.24H PO (19:26)
[2021-06-27] MEDS: Atorvastatin Calcium 40 MG TABLET PO (19:27)
[2021-06-28 06:00] VITALS: BP 148/81; PULSE 79; RESP 17; TEMP 36.9; O2SAT 96
[2021-06-28 06:30] LABS: Glucose, Whole Blood 233 mg/dL (60-115)
[2021-06-28] MEDS: Omeprazole 20 MG CAPSULE.DR PO ×2 (09:05→16:35)
[2021-06-28] MEDS: metFORMIN HCl ER 500 MG TAB.ER.24H 1000 MG PO ×2 (09:05→20:12)
[2021-06-28] MEDS: Gabapentin 400 MG CAPSULE 800 MG PO ×3 (09:05→20:12)
[2021-06-28] MEDS: DULoxetine HCl 60 MG CAPSULE.DR PO (09:05)
[2021-06-28] MEDS: Magnesium Oxide 400 MG TABLET PO (09:05)
[2021-06-28] MEDS: Fenofibrate 54 MG TABLET PO (09:05)
[2021-06-28] MEDS: Sucralfate 1 GM TABLET PO ×4 (09:05→20:12)
--- NOTE | 2021-06-28 12:37 | HO.PSYCHPN ---
Subjective Subjective Date of Service: 06/28/21 Reason For Visit: SI,Depression Subjective Notes: Conditional Voluntary Healthcare Proxy: No Guardianship: No Medical Problems Affecting Mental Status: No Medication Compliance: Yes Side effects from medications: No Attending Groups: Intermittent Review of Systems Acute medical concerns: No Medical Review of Systems: unchanged Review of Systems Musculoskeletal: Reports other (chronic pain) Reports behavioral changes Psychiatric: Reports anxiety, Reports behavioral changes, Reports depression, Reports difficulty concentrating, Reports hopelessness, Reports irritability, Reports anhedonia, Reports mood swings and Reports suicidal ideation Mental Status Exam Mental Status Exam Patient Appearance: Disheveled Patient Orientation: Person, Place, Time and Situation Level of Consciousness: Alert Patient Behavior: Talkative and Good Eye Contact Mood Description: Withdrawn and Depressed Affect Description: Flat Patient Cognition Impaired: No Ability to Follow Directions: Good Speech Pattern: Spontaneous Speech Memory Description: Episodic Impaired Delusions: Paranoid Ideation Perceptual Disturbances: Depersonalization and Derealization Thought Process: Rumination Thought Content: positive for [place], positive for Circumstantial, positive for Perseveration and positive for Suicidal Ideation Depressive Symptoms: Increased Anxiety, Diff. Making Decisions, Increased Irritability, Difficulty Sleeping, Loss of Int. in Activity, Feelings of [place]lessness, Hopelessness, Unhappiness, Increased Fatigue, Thoughts of /Suicide, Low Self Esteem, Loss of Energy, Difficulty Concentrating and Back Pain Judgement: Fair Diagnostics Vital Signs (24Hr): Vital Signs - 24 hr 06/27/21 18:00 06/28/21 06:00 Temperature 97.6 F 98.5 F Pulse Rate 84 79 Respiratory Rate 16 17 Blood Pressure 132/79 148/81 H Pulse Oximetry 97 96 BMI result Body Mass Index 31.6 Labs Results: 06/26/21 16:50 06/26/21 16:50 Labs: Laboratory Results - last 48 hr 06/26/21 06/26/21 06/26/21 16:28 16:28 16:50 WBC 5.9 RBC 4.92 Hgb 13.3 L Hct 40.0 L MCV 81.3 MCH 27.0 MCHC 33.3 RDW 13.9 Plt Count 246 MPV 9.7 Immature Gran % (Auto) 0.3 Neut % (Auto) 64.7 Lymph % (Auto) 23.2 [place] % (Auto) 10.5 Eos % (Auto) 0.8 Baso % (Auto) 0.5 Lymph # (Auto) 1.4 [place] # (Auto) 0.6 Eos # (Auto) 0.1 Baso # (Auto) 0.0 Abs Immat Gran (auto) 0.02 Absolute Neuts (auto) 3.8 Absolute Nucleated RBC 0.000 Nucleated RBC % (auto) 0.0 Sodium Potassium Chloride Carbon Dioxide Anion Gap BUN Creatinine Estim Creat Clear Calc Estimated GFR POC Glucose Fasting Glucose Estimat Average Glucose Hemoglobin A1c % Calcium Magnesium Total Bilirubin AST ALT Alkaline Phosphatase Total Protein Albumin Triglycerides Cholesterol LDL Cholesterol, Calc HDL Cholesterol Vitamin B12 Folate TSH Free T4 Urine Opiates Screen Not Detected Urine Fentanyl Screen Not Detected Ur Barbiturates Screen Not Detected Ur Phencyclidine Scrn Not Detected Ur Amphetamines Screen Not Detected U Benzodiazepines Scrn Not Detected Urine Cocaine Screen POSITIVE H U Marijuana (THC) Screen Not Detected Ethyl Alcohol COVID-19 ([facility]) Negative COVID-19 [employer] Com See Note 06/26/21 06/26/21 06/27/21 16:50 16:50 08:23 WBC RBC Hgb Hct MCV MCH MCHC RDW Plt Count MPV Immature Gran % (Auto) Neut % (Auto) Lymph % (Auto) [place] % (Auto) Eos % (Auto) Baso % (Auto) Lymph # (Auto) [place] # (Auto) Eos # (Auto) Baso # (Auto) Abs Immat Gran (auto) Absolute Neuts (auto) Absolute Nucleated RBC Nucleated RBC % (auto) Sodium 135 Potassium 4.0 Chloride 101 Carbon Dioxide 24 Anion Gap 14 BUN 11 D Creatinine 0.93 Estim Creat Clear Calc 89.3 Estimated GFR > 60 POC Glucose Fasting Glucose 253 H D Estimat Average Glucose 166 Hemoglobin A1c % 7.4 Calcium 10.0 Magnesium Total Bilirubin 0.7 AST 29 ALT 32 Alkaline Phosphatase 74 Total Protein 7.6 Albumin 4.7 Triglycerides Cholesterol LDL Cholesterol, Calc HDL Cholesterol Vitamin B12 Folate TSH Free T4 Urine Opiates Screen Urine Fentanyl Screen Ur Barbiturates Screen Ur Phencyclidine Scrn Ur Amphetamines Screen U Benzodiazepines Scrn Urine Cocaine Screen U Marijuana (THC) Screen Ethyl Alcohol < 10 COVID-19 ([facility]) COVID-19 [employer] 06/27/21 06/27/21 06/28/21 08:23 08:23 06:26 WBC RBC Hgb Hct MCV MCH MCHC RDW Plt Count MPV Immature Gran % (Auto) Neut % (Auto) Lymph % (Auto) [place] % (Auto) Eos % (Auto) Baso % (Auto) Lymph # (Auto) [place] # (Auto) Eos # (Auto) Baso # (Auto) Abs Immat Gran (auto) Absolute Neuts (auto) Absolute Nucleated RBC Nucleated RBC % (auto) Sodium Potassium Chloride Carbon Dioxide Anion Gap BUN Creatinine Estim Creat Clear Calc Estimated GFR POC Glucose 233 H Fasting Glucose Estimat Average Glucose Hemoglobin A1c % Calcium Magnesium 1.9 Total Bilirubin AST ALT Alkaline Phosphatase Total Protein Albumin Triglycerides 336 Cholesterol 185 D LDL Cholesterol, Calc 96 HDL Cholesterol 22 Vitamin B12 484 Folate 7.6 TSH 1.38 Free T4 0.74 Urine Opiates Screen Urine Fentanyl Screen Ur Barbiturates Screen Ur Phencyclidine Scrn Ur Amphetamines Screen U Benzodiazepines Scrn Urine Cocaine Screen U Marijuana (THC) Screen Ethyl Alcohol COVID-19 ([facility]) COVID-19 Clin Com Medications Medications Current Medications Acetaminophen (Acetaminophen 325 Mg Tablet) 650 mg PO Q6H PRN PRN Reason: Headache/Pain Mild Scale (1-3) Al Hydroxide/Mg Hydroxide (Magnesium Hydrox/Alum Hydrox 30 Ml Oral.Susp) 30 ml PO Q6H PRN PRN Reason: Heartburn/Nausea Atorvastatin Calcium (Atorvastatin Calcium 40 Mg Tablet) 40 mg PO BEDTIME [facility] Last Admin: 06/27/21 19:27 Dose: 40 mg Documented by: Duloxetine HCl (Duloxetine Hcl 60 Mg Capsule.Dr) 60 mg PO DAILY [facility] Last Admin: 06/28/21 09:05 Dose: 60 mg Documented by: Fenofibrate (Fenofibrate 54 Mg Tablet) 54 mg PO DAILY [facility] Last Admin: 06/28/21 09:05 Dose: 54 mg Documented by: Gabapentin (Gabapentin 400 Mg Capsule) 800 mg PO TID [facility] Last Admin: 06/28/21 09:05 Dose: 800 mg Documented by: Hydroxyzine HCl (Hydroxyzine Hcl 25 Mg Tablet) 25 mg PO Q6H PRN PRN Reason: Anxiety Magnesium Hydroxide (Milk Of Magnesia 30 Ml Oral.Susp) 30 ml PO DAILY PRN PRN Reason: Constipation Magnesium Oxide (Magnesium Oxide 400 Mg Tablet) 400 mg PO DAILY [facility] Last Admin: 06/28/21 09:05 Dose: 400 mg Documented by: Metformin HCl (Metformin Hcl Er 500 Mg Tab.Er.24h) 1,000 mg PO BID [facility] Last Admin: 06/28/21 09:05 Dose: 1,000 mg Documented by: Metoprolol Succinate (Metoprolol Succinate Er 25 Mg Tab.Er.24h) 25 mg PO BEDTIME [facility]; Protocol Last Admin: 06/27/21 19:26 Dose: 25 mg Documented by: Omeprazole (Omeprazole 20 Mg Capsule.) 20 mg PO BID@0630,1630 [facility] Last Admin: 06/28/21 09:05 Dose: 20 mg Documented by: Quetiapine Fumarate (Quetiapine Fumarate 50 Mg Tablet) 50 mg PO Q6H PRN PRN Reason: agitation, anxiety Quetiapine Fumarate (Quetiapine Fumarate 100 Mg Tablet) 100 mg PO BEDTIME [facility] Last Admin: 06/27/21 19:26 Dose: 100 mg Documented by: Sucralfate (Sucralfate 1 Gm Tablet) 1 gm PO QID [facility] Last Admin: 06/28/21 09:05 Dose: 1 gm Documented by: Trazodone HCl (Trazodone Hcl 50 Mg Tablet) 50 mg PO BEDTIME PRN PRN Reason: Insomnia Allergies Allergies Allergy/AdvReac Type Severity Reaction Status Date / Time No Known Allergies Allergy Verified 05/31/21 11:24 Assessment & Plan Assessment & Plan (1) Cocaine use disorder: Status: Acute Code(s): F14.10 - Cocaine abuse, uncomplicated (2) MDD (major depressive disorder), recurrent episode, moderate: Status: Acute Code(s): F33.1 - Major depressive disorder, recurrent, moderate Plan Matthew is a 61 y.o. Male who carries a dx of MDD, recurrent and crack cocaine relapse. He presented to [facility] ED on 06/26/21 due to reporting depression, SI. Has chronic pain issues and ambulates in a wheelchair, hx of being on suboxone. He has been non-adherent with psych meds for a couple days. No OP psych providers, did not follow up with referrals since recent discharge from . Pt is working with [employer] program. Hx of VNA. Plan: Will increase gabapentin to 800 mg TID to help with mood stability, pain. Discussed limitations of utilizing NSAIDs for joint pain due to hx of upper GI bleeds. CV Q15 min safety checks Monitor response to medications. Monitor for safety in the milieu. Discharge on stabilization. Patient seen. Chart reviewed. Discussed with team. Obtain collateral contact info?as needed 06/27/21 Continue current regime. Pt reports today noncompliance as an out pt. Will re-establish regime and re-evaluate 06/28/21 Trial of Lamictal 25 mg hs-mood, pain I spent minutes with the patient and/or on the patient floor today, greater than?50% of which was spent counseling/coordinating care. Reason for contiued inpatient stay Substantial Risk for: harm to self, inability to function, rapid decompensation and med/psych decompensation
[2021-06-28] MEDS: QUEtiapine Fumarate 50 MG TABLET PO (16:48)
[2021-06-28 18:00] VITALS: BP 109/74; PULSE 69; RESP 16; TEMP 36.5; O2SAT 98
[2021-06-28] MEDS: QUEtiapine Fumarate 100 MG TABLET PO (20:11)
[2021-06-28] MEDS: Atorvastatin Calcium 40 MG TABLET PO (20:12)
[2021-06-28] MEDS: lamoTRIgine 25 MG TABLET PO (20:12)
[2021-06-28] MEDS: Metoprolol Succinate ER 25 MG TAB.ER.24H PO (20:12)
[2021-06-28 22:39] LABS: Glucose, Whole Blood 256 mg/dL (60-115)
[2021-06-29 06:00] VITALS: BP 130/70; PULSE 84; TEMP 36.6; O2SAT 98
[2021-06-29] MEDS: Omeprazole 20 MG CAPSULE.DR PO ×2 (06:20→16:31)
[2021-06-29 06:53] LABS: Glucose, Whole Blood 223 mg/dL (60-115)
[2021-06-29] MEDS: Fenofibrate 54 MG TABLET PO (08:46)
[2021-06-29] MEDS: metFORMIN HCl ER 500 MG TAB.ER.24H 1000 MG PO ×2 (08:46→21:12)
[2021-06-29] MEDS: Magnesium Oxide 400 MG TABLET PO (08:46)
[2021-06-29] MEDS: DULoxetine HCl 60 MG CAPSULE.DR PO (08:46)
[2021-06-29] MEDS: Gabapentin 400 MG CAPSULE 800 MG PO ×3 (08:46→21:12)
[2021-06-29] MEDS: Sucralfate 1 GM TABLET PO ×4 (08:46→21:11)
[2021-06-29] MEDS: QUEtiapine Fumarate 50 MG TABLET PO ×2 (10:18→16:31)
--- NOTE | 2021-06-29 15:46 | HO.PSYCHPN ---
Subjective Subjective Date of Service: 06/29/21 Reason For Visit: SI,Depression Subjective Notes: Conditional Voluntary Interim History: Matthew is quite disheveled but reports that he feels some improvement. He is anxious to go to a recovery program post DC Medication Compliance: Yes Side effects from medications: No Mental Status Exam Mental Status Exam Patient Appearance: Disheveled Patient Orientation: Person, Place, Time and Situation Level of Consciousness: Alert Patient Behavior: Talkative and Good Eye Contact Mood Description: Withdrawn and Depressed Affect Description: Flat Patient Cognition Impaired: No Ability to Follow Directions: Good Speech Pattern: Spontaneous Speech Memory Description: Episodic Impaired Delusions: Paranoid Ideation Perceptual Disturbances: Depersonalization and Derealization Thought Process: Rumination Thought Content: positive for [place], positive for Circumstantial, positive for Perseveration and positive for Suicidal Ideation Depressive Symptoms: Increased Anxiety, Diff. Making Decisions, Increased Irritability, Difficulty Sleeping, Loss of Int. in Activity, Feelings of Worthlessness, Hopelessness, Unhappiness, Increased Fatigue, Thoughts of /Suicide, Low Self Esteem, Loss of Energy, Difficulty Concentrating and Back Pain Judgement: Fair Diagnostics Vital Signs (24Hr): Vital Signs - 24 hr 06/28/21 18:00 06/29/21 06:00 Temperature 97.7 F 97.8 F Pulse Rate 69 84 Respiratory Rate 16 Blood Pressure 109/74 130/70 Pulse Oximetry 98 98 BMI result Body Mass Index 31.6 Labs Results: 06/26/21 16:50 06/26/21 16:50 Labs: Laboratory Results - last 48 hr 06/28/21 06/28/21 06/29/21 06:26 22:35 06:18 POC Glucose 233 H 256 H 223 H Medications Medications Current Medications Acetaminophen (Acetaminophen 325 Mg Tablet) 650 mg PO Q6H PRN PRN Reason: Headache/Pain Mild Scale (1-3) Al Hydroxide/Mg Hydroxide (Magnesium Hydrox/Alum Hydrox 30 Ml Oral.Susp) 30 ml PO Q6H PRN PRN Reason: Heartburn/Nausea Atorvastatin Calcium (Atorvastatin Calcium 40 Mg Tablet) 40 mg PO BEDTIME [facility] Last Admin: 06/28/21 20:12 Dose: 40 mg Documented by: Duloxetine HCl (Duloxetine Hcl 60 Mg Capsule.) 60 mg PO DAILY [facility] Last Admin: 06/29/21 08:46 Dose: 60 mg Documented by: Fenofibrate (Fenofibrate 54 Mg Tablet) 54 mg PO DAILY [facility] Last Admin: 06/29/21 08:46 Dose: 54 mg Documented by: Gabapentin (Gabapentin 400 Mg Capsule) 800 mg PO TID [facility] Last Admin: 06/29/21 15:13 Dose: 800 mg Documented by: Hydroxyzine HCl (Hydroxyzine Hcl 25 Mg Tablet) 25 mg PO Q6H PRN PRN Reason: Anxiety Lamotrigine (Lamotrigine 25 Mg Tablet) 25 mg PO BEDTIME [facility] Last Admin: 06/28/21 20:12 Dose: 25 mg Documented by: Magnesium Hydroxide (Milk Of Magnesia 30 Ml Oral.Susp) 30 ml PO DAILY PRN PRN Reason: Constipation Magnesium Oxide (Magnesium Oxide 400 Mg Tablet) 400 mg PO DAILY [facility] Last Admin: 06/29/21 08:46 Dose: 400 mg Documented by: Metformin HCl (Metformin Hcl Er 500 Mg Tab.Er.24h) 1,000 mg PO BID [facility] Last Admin: 06/29/21 08:46 Dose: 1,000 mg Documented by: Metoprolol Succinate (Metoprolol Succinate Er 25 Mg Tab.Er.24h) 25 mg PO BEDTIME [facility]; Protocol Last Admin: 06/28/21 20:12 Dose: 25 mg Documented by: Omeprazole (Omeprazole 20 Mg Capsule.Dr) 20 mg PO BID@0630,1630 [facility] Last Admin: 06/29/21 06:20 Dose: 20 mg Documented by: Quetiapine Fumarate (Quetiapine Fumarate 50 Mg Tablet) 50 mg PO Q6H PRN PRN Reason: agitation, anxiety Last Admin: 06/29/21 10:18 Dose: 50 mg Documented by: Quetiapine Fumarate (Quetiapine Fumarate 100 Mg Tablet) 100 mg PO BEDTIME [facility] Last Admin: 06/28/21 20:11 Dose: 100 mg Documented by: Sucralfate (Sucralfate 1 Gm Tablet) 1 gm PO QID [facility] Last Admin: 06/29/21 12:58 Dose: 1 gm Documented by: Trazodone HCl (Trazodone Hcl 50 Mg Tablet) 50 mg PO BEDTIME PRN PRN Reason: Insomnia Allergies Allergies Allergy/AdvReac Type Severity Reaction Status Date / Time No Known Allergies Allergy Verified 05/31/21 11:24 Assessment & Plan Assessment & Plan (1) Cocaine use disorder: Status: Acute Code(s): F14.10 - Cocaine abuse, uncomplicated (2) MDD (major depressive disorder), recurrent episode, moderate: Status: Acute Code(s): F33.1 - Major depressive disorder, recurrent, moderate Plan Matthew is a 61 y.o. Male who carries a dx of MDD, recurrent and crack cocaine relapse. He [place] [facility] due to reporting depression, SI. Has chronic pain issues and ambulates in a wheelchair, hx of being on suboxone. He has been non-adherent with psych meds for a couple days. No OP psych providers, did not follow up with referrals since recent discharge from . Pt is working with [employer] program. Hx of VNA. Plan: Will increase gabapentin to 800 mg TID to help with mood stability, pain. Discussed limitations of utilizing NSAIDs for joint pain due to hx of upper GI bleeds. CV Q15 min safety checks Monitor response to medications. Monitor for safety in the milieu. Discharge on stabilization. Patient seen. Chart reviewed. Discussed with team. Obtain collateral contact info?as needed 06/27/21 Continue current regime. Pt reports today noncompliance as an out pt. Will re-establish regime and re-evaluate 06/28/21 Trial of Lamictal 25 mg hs-mood, pain 06/29/21: No change to the above plan I spent minutes with the patient and/or on the patient floor today, greater than?50% of which was spent counseling/coordinating care. Patient educated on: diagnosis and medication risk/benefits Informed Consent: further education needed Reason for contiued inpatient stay Substantial Risk for: rapid decompensation
[2021-06-29 20:50] VITALS: BP 126/72; PULSE 83; TEMP 36.8
[2021-06-29] MEDS: Atorvastatin Calcium 40 MG TABLET PO (21:13)
[2021-06-29] MEDS: Metoprolol Succinate ER 25 MG TAB.ER.24H PO (21:13)
[2021-06-29] MEDS: lamoTRIgine 25 MG TABLET PO (21:13)
[2021-06-29] MEDS: QUEtiapine Fumarate 100 MG TABLET PO (21:14)
[2021-06-29 22:14] LABS: Glucose, Whole Blood 229 mg/dL (60-115)
[2021-06-30] MEDS: Omeprazole 20 MG CAPSULE.DR PO ×2 (06:33→16:49)
[2021-06-30 06:57] LABS: Glucose, Whole Blood 204 mg/dL (60-115)
[2021-06-30] MEDS: Fenofibrate 54 MG TABLET PO (08:15)
[2021-06-30] MEDS: Gabapentin 400 MG CAPSULE 800 MG PO ×3 (08:15→21:15)
[2021-06-30] MEDS: metFORMIN HCl ER 500 MG TAB.ER.24H 1000 MG PO ×2 (08:15→21:15)
[2021-06-30] MEDS: DULoxetine HCl 60 MG CAPSULE.DR PO (08:15)
[2021-06-30] MEDS: Sucralfate 1 GM TABLET PO ×4 (08:16→21:15)
[2021-06-30] MEDS: Magnesium Oxide 400 MG TABLET PO (08:16)
[2021-06-30] MEDS: QUEtiapine Fumarate 50 MG TABLET PO ×2 (08:44→16:47)
--- NOTE | 2021-06-30 12:00 | HO.PSYCHPN ---
Subjective Subjective Date of Service: 06/30/21 Reason For Visit: SI,Depression Subjective Notes: Conditional Voluntary Medical Problems Affecting Mental Status: No Interim History: Matthew showered yesterday, and feels better about himself. He remains quite isolative. Medication Compliance: Yes Side effects from medications: No Review of Systems Acute medical concerns: No Mental Status Exam Mental Status Exam Patient Appearance: Disheveled Patient Orientation: Person, Place, Time and Situation Level of Consciousness: Alert Patient Behavior: Talkative and Good Eye Contact Mood Description: Withdrawn and Depressed Affect Description: Flat Patient Cognition Impaired: No Ability to Follow Directions: Good Speech Pattern: Spontaneous Speech Memory Description: Episodic Impaired Delusions: Paranoid Ideation Perceptual Disturbances: Depersonalization and Derealization Thought Process: Rumination Thought Content: positive for [place], positive for Circumstantial, positive for Perseveration and positive for Suicidal Ideation Depressive Symptoms: Increased Anxiety, Diff. Making Decisions, Increased Irritability, Difficulty Sleeping, Loss of Int. in Activity, Feelings of Worthlessness, Hopelessness, Unhappiness, Increased Fatigue, Thoughts of /Suicide, Low Self Esteem, Loss of Energy, Difficulty Concentrating and Back Pain Judgement: Fair Diagnostics Vital Signs (24Hr): Vital Signs - 24 hr 06/29/21 20:50 Temperature 98.2 F Pulse Rate 83 Blood Pressure 126/72 BMI result Body Mass Index 31.6 Labs Results: 06/26/21 16:50 06/26/21 16:50 Labs: Laboratory Results - last 48 hr 06/28/21 06/29/21 06/29/21 22:35 06:18 21:31 POC Glucose 256 H 223 H 229 H 06/30/21 06:47 POC Glucose 204 H Medications Medications Current Medications Acetaminophen (Acetaminophen 325 Mg Tablet) 650 mg PO Q6H PRN PRN Reason: Headache/Pain Mild Scale (1-3) Al Hydroxide/Mg Hydroxide (Magnesium Hydrox/Alum Hydrox 30 Ml Oral.Susp) 30 ml PO Q6H PRN PRN Reason: Heartburn/Nausea Atorvastatin Calcium (Atorvastatin Calcium 40 Mg Tablet) 40 mg PO BEDTIME [facility] Last Admin: 06/29/21 21:13 Dose: 40 mg Documented by: Duloxetine HCl (Duloxetine Hcl 60 Mg Capsule.) 60 mg PO DAILY [facility] Last Admin: 06/30/21 08:15 Dose: 60 mg Documented by: Fenofibrate (Fenofibrate 54 Mg Tablet) 54 mg PO DAILY [facility] Last Admin: 06/30/21 08:15 Dose: 54 mg Documented by: Gabapentin (Gabapentin 400 Mg Capsule) 800 mg PO TID [facility] Last Admin: 06/30/21 08:15 Dose: 800 mg Documented by: Hydroxyzine HCl (Hydroxyzine Hcl 25 Mg Tablet) 25 mg PO Q6H PRN PRN Reason: Anxiety Lamotrigine (Lamotrigine 25 Mg Tablet) 25 mg PO BEDTIME [facility] Last Admin: 06/29/21 21:13 Dose: 25 mg Documented by: Magnesium Hydroxide (Milk Of Magnesia 30 Ml Oral.Susp) 30 ml PO DAILY PRN PRN Reason: Constipation Magnesium Oxide (Magnesium Oxide 400 Mg Tablet) 400 mg PO DAILY [facility] Last Admin: 06/30/21 08:16 Dose: 400 mg Documented by: Metformin HCl (Metformin Hcl Er 500 Mg Tab.Er.24h) 1,000 mg PO BID [facility] Last Admin: 06/30/21 08:15 Dose: 1,000 mg Documented by: Metoprolol Succinate (Metoprolol Succinate Er 25 Mg Tab.Er.24h) 25 mg PO BEDTIME [facility]; Protocol Last Admin: 06/29/21 21:13 Dose: 25 mg Documented by: Omeprazole (Omeprazole 20 Mg Capsule.Dr) 20 mg PO BID@0630,1630 [facility] Last Admin: 06/30/21 06:33 Dose: 20 mg Documented by: Quetiapine Fumarate (Quetiapine Fumarate 50 Mg Tablet) 50 mg PO Q6H PRN PRN Reason: agitation, anxiety Last Admin: 06/30/21 08:44 Dose: 50 mg Documented by: Quetiapine Fumarate (Quetiapine Fumarate 100 Mg Tablet) 100 mg PO BEDTIME [facility] Last Admin: 06/29/21 21:14 Dose: 100 mg Documented by: Sucralfate (Sucralfate 1 Gm Tablet) 1 gm PO QID [facility] Last Admin: 06/30/21 08:16 Dose: 1 gm Documented by: Trazodone HCl (Trazodone Hcl 50 Mg Tablet) 50 mg PO BEDTIME PRN PRN Reason: Insomnia Allergies Allergies Allergy/AdvReac Type Severity Reaction Status Date / Time No Known Allergies Allergy Verified 05/31/21 11:24 Assessment & Plan Assessment & Plan (1) Cocaine use disorder: Status: Acute Code(s): F14.10 - Cocaine abuse, uncomplicated (2) MDD (major depressive disorder), recurrent episode, moderate: Status: Acute Code(s): F33.1 - Major depressive disorder, recurrent, moderate Plan Matthew is a 61 y.o. Male who carries a dx of MDD, recurrent and crack cocaine relapse. He presented to [facility] [facility] on 06/26/21 due to reporting depression, SI. Has chronic pain issues and ambulates in a wheelchair, hx of being on suboxone. He has been non-adherent with psych meds for a couple days. No OP psych providers, did not follow up with referrals since recent discharge from . Pt is working with [facility] program. Hx of VNA. Plan: Will increase gabapentin to 800 mg TID to help with mood stability, pain. Discussed limitations of utilizing NSAIDs for joint pain due to hx of upper GI bleeds. CV Q15 min safety checks Monitor response to medications. Monitor for safety in the milieu. Discharge on stabilization. Patient seen. Chart reviewed. Discussed with team. Obtain collateral contact info?as needed 06/27/21 Continue current regime. Pt reports today noncompliance as an out pt. Will re-establish regime and re-evaluate 06/28/21 Trial of Lamictal 25 mg hs-mood, pain 06/29/21: No change to the above plan 06/30/21: No changes I spent minutes with the patient and/or on the patient floor today, greater than?50% of which was spent counseling/coordinating care. Patient educated on: diagnosis and medication risk/benefits Informed Consent: further education needed Reason for contiued inpatient stay Substantial Risk for: rapid decompensation
[2021-06-30 21:00] VITALS: BP 135/66; PULSE 84; TEMP 37.1
[2021-06-30] MEDS: Metoprolol Succinate ER 25 MG TAB.ER.24H PO (21:16)
[2021-06-30] MEDS: lamoTRIgine 25 MG TABLET PO (21:16)
[2021-06-30] MEDS: QUEtiapine Fumarate 100 MG TABLET PO (21:16)
[2021-06-30] MEDS: Atorvastatin Calcium 40 MG TABLET PO (21:16)
[2021-06-30 21:29] LABS: Glucose, Whole Blood 252 mg/dL (60-115)
[2021-07-01 06:00] VITALS: BP 128/77; PULSE 71; RESP 18; TEMP 36.6; O2SAT 98
[2021-07-01] MEDS: Omeprazole 20 MG CAPSULE.DR PO ×2 (06:15→17:26)
[2021-07-01] MEDS: Gabapentin 400 MG CAPSULE 800 MG PO ×3 (08:18→21:37)
[2021-07-01] MEDS: DULoxetine HCl 60 MG CAPSULE.DR PO (08:18)
[2021-07-01] MEDS: metFORMIN HCl ER 500 MG TAB.ER.24H 1000 MG PO ×2 (08:18→21:37)
[2021-07-01] MEDS: Magnesium Oxide 400 MG TABLET PO (08:18)
[2021-07-01] MEDS: Fenofibrate 54 MG TABLET PO (08:19)
[2021-07-01] MEDS: Sucralfate 1 GM TABLET PO ×4 (08:19→21:36)
[2021-07-01] MEDS: QUEtiapine Fumarate 50 MG TABLET PO ×2 (08:19→15:04)
[2021-07-01 08:36] LABS: Glucose, Whole Blood 241 mg/dL (60-115)
--- NOTE | 2021-07-01 17:14 | HO.PSYCHPN ---
Subjective Subjective Date of Service: 07/01/21 Reason For Visit: SI,Depression Subjective Notes: Conditional Voluntary Healthcare Proxy: No Guardianship: No Medical Problems Affecting Mental Status: No Interim History: Reports anergy and dysthymia. Tolerating medication changes, spending much of his time in bed, encouraged to participate in milieu, in groups, with peers. Continues to request [facility]. Encouraged to increase his activity as [facility] has a healthy schedule of treatment he will need to attend. Discussed pain mgt. Discussed scheduling Tylenol to assess if this would provide relief. He is willing to trial. Medication Compliance: Yes Side effects from medications: No Attending Groups: Intermittent Review of Systems Acute medical concerns: No Medical Review of Systems: unchanged Review of Systems Musculoskeletal: Reports other (chronic pain) Psychiatric: Reports abnormal sleep pattern (increase), Reports depression, Reports anhedonia and Reports suicidal ideation (intermittent passive SI without plan or intent) Mental Status Exam Mental Status Exam Patient Appearance: Fatigued and Disheveled Patient Orientation: Person, Place, Time and Situation Level of Consciousness: Alert Patient Behavior: Talkative, Cooperative and Good Eye Contact Mood Description: Apprehensive Affect Description: Flat Patient Cognition Impaired: No Ability to Follow Directions: Good Speech Pattern: Spontaneous Speech Memory Description: Episodic Impaired Hallucinations: None Delusions: Not Present Perceptual Disturbances: Depersonalization and Derealization Thought Process: Rumination and Goal Oriented Thought Content: positive for Goal Oriented and positive for Suicidal Ideation (passive, intermittent, without plan or intent) Depressive Symptoms: Sleeping More Than Usual and Increased Fatigue Judgement: Good Diagnostics Vital Signs (24Hr): Vital Signs - 24 hr 06/30/21 21:00 07/01/21 06:00 Temperature 98.8 F 97.9 F Pulse Rate 84 71 Respiratory Rate 18 Blood Pressure 135/66 128/77 Pulse Oximetry 98 BMI result Body Mass Index 31.6 Labs Results: 06/26/21 16:50 06/26/21 16:50 Labs: Laboratory Results - last 48 hr 06/29/21 06/30/21 06/30/21 21:31 06:47 21:26 POC Glucose 229 H 204 H 252 H 07/01/21 08:31 POC Glucose 241 H Medications Medications Current Medications Acetaminophen (Acetaminophen 325 Mg Tablet) 650 mg PO Q6H PRN PRN Reason: Headache/Pain Mild Scale (1-3) Al Hydroxide/Mg Hydroxide (Magnesium Hydrox/Alum Hydrox 30 Ml Oral.Susp) 30 ml PO Q6H PRN PRN Reason: Heartburn/Nausea Atorvastatin Calcium (Atorvastatin Calcium 40 Mg Tablet) 40 mg PO BEDTIME [facility] Last Admin: 06/30/21 21:16 Dose: 40 mg Documented by: Duloxetine HCl (Duloxetine Hcl 60 Mg Capsule.) 60 mg PO DAILY [facility] Last Admin: 07/01/21 08:18 Dose: 60 mg Documented by: Fenofibrate (Fenofibrate 54 Mg Tablet) 54 mg PO DAILY [facility] Last Admin: 07/01/21 08:19 Dose: 54 mg Documented by: Gabapentin (Gabapentin 400 Mg Capsule) 800 mg PO TID [facility] Last Admin: 07/01/21 13:54 Dose: 800 mg Documented by: Hydroxyzine HCl (Hydroxyzine Hcl 25 Mg Tablet) 25 mg PO Q6H PRN PRN Reason: Anxiety Lamotrigine (Lamotrigine 25 Mg Tablet) 25 mg PO BEDTIME [facility] Last Admin: 06/30/21 21:16 Dose: 25 mg Documented by: Magnesium Hydroxide (Milk Of Magnesia 30 Ml Oral.Susp) 30 ml PO DAILY PRN PRN Reason: Constipation Magnesium Oxide (Magnesium Oxide 400 Mg Tablet) 400 mg PO DAILY [facility] Last Admin: 07/01/21 08:18 Dose: 400 mg Documented by: Metformin HCl (Metformin Hcl Er 500 Mg Tab.Er.24h) 1,000 mg PO BID [facility] Last Admin: 07/01/21 08:18 Dose: 1,000 mg Documented by: Metoprolol Succinate (Metoprolol Succinate Er 25 Mg Tab.Er.24h) 25 mg PO BEDTIME [facility]; Protocol Last Admin: 06/30/21 21:16 Dose: 25 mg Documented by: Omeprazole (Omeprazole 20 Mg Capsule.) 20 mg PO BID@0630,1630 [facility] Last Admin: 07/01/21 06:15 Dose: 20 mg Documented by: Quetiapine Fumarate (Quetiapine Fumarate 50 Mg Tablet) 50 mg PO Q6H PRN PRN Reason: agitation, anxiety Last Admin: 07/01/21 15:04 Dose: 50 mg Documented by: Quetiapine Fumarate (Quetiapine Fumarate 100 Mg Tablet) 100 mg PO BEDTIME [facility] Last Admin: 06/30/21 21:16 Dose: 100 mg Documented by: Sucralfate (Sucralfate 1 Gm Tablet) 1 gm PO QID [facility] Last Admin: 07/01/21 13:52 Dose: 1 gm Documented by: Trazodone HCl (Trazodone Hcl 50 Mg Tablet) 50 mg PO BEDTIME PRN PRN Reason: Insomnia Allergies Allergies Allergy/AdvReac Type Severity Reaction Status Date / Time No Known Allergies Allergy Verified 05/31/21 11:24 Assessment & Plan Assessment & Plan (1) Cocaine use disorder: Status: Acute Code(s): F14.10 - Cocaine abuse, uncomplicated (2) MDD (major depressive disorder), recurrent episode, moderate: Status: Acute Code(s): F33.1 - Major depressive disorder, recurrent, moderate Plan Matthew is a 61 y.o. Male who carries a dx of MDD, recurrent and crack cocaine relapse. He [place] [facility] [place] due to reporting depression, SI. Has chronic pain issues and ambulates in a wheelchair, hx of being on suboxone. He has been non-adherent with psych meds for a couple days. No OP psych providers, did not follow up with referrals since recent discharge from . Pt is working with [employer] program. Hx of VNA. Plan: Will increase gabapentin to 800 mg TID to help with mood stability, pain. Discussed limitations of utilizing NSAIDs for joint pain due to hx of upper GI bleeds. CV Q15 min safety checks Monitor response to medications. Monitor for safety in the milieu. Discharge on stabilization. Patient seen. Chart reviewed. Discussed with team. Obtain collateral contact info?as needed 06/27/21 Continue current regime. Pt reports today noncompliance as an out pt. Will re-establish regime and re-evaluate 06/28/21 Trial of Lamictal 25 mg hs-mood, pain 06/29/21: No change to the above plan 06/30/21: No changes 07/01/21: Encourage increase in milieu participation Schedule Tylenol for improved pain mgt. Continues to report depressive symptoms-passive, intermittent SI, but does want to attend [facility] for treatment. I spent minutes with the patient and/or on the patient floor today, greater than?50% of which was spent counseling/coordinating care. Patient educated on: medication risk/benefits, therapeutic strategies and medical condition Informed Consent: understands and further education needed Reason for contiued inpatient stay Substantial Risk for: harm to self, inability to function, rapid decompensation and med/psych decompensation
[2021-07-01] MEDS: Acetaminophen 325 MG TABLET 650 MG PO (17:31)
[2021-07-01 18:00] VITALS: BP 156/75; PULSE 69; TEMP 36.8
[2021-07-01] MEDS: QUEtiapine Fumarate 100 MG TABLET PO (21:36)
[2021-07-01] MEDS: lamoTRIgine 25 MG TABLET PO (21:36)
[2021-07-01] MEDS: Atorvastatin Calcium 40 MG TABLET PO (21:36)
[2021-07-01] MEDS: Metoprolol Succinate ER 25 MG TAB.ER.24H PO (21:38)
[2021-07-01 21:47] LABS: Glucose, Whole Blood 226 mg/dL (60-115)
[2021-07-02 06:00] VITALS: BP 111/56; PULSE 69; RESP 16; TEMP 36.5; O2SAT 95
[2021-07-02] MEDS: Acetaminophen 325 MG TABLET 650 MG PO ×3 (06:29→19:05)
[2021-07-02] MEDS: Omeprazole 20 MG CAPSULE.DR PO ×2 (06:29→16:42)
[2021-07-02 06:42] LABS: Glucose, Whole Blood 213 mg/dL (60-115)
[2021-07-02] MEDS: metFORMIN HCl ER 500 MG TAB.ER.24H 1000 MG PO ×2 (08:16→20:49)
[2021-07-02] MEDS: QUEtiapine Fumarate 50 MG TABLET PO ×2 (08:17→15:29)
[2021-07-02] MEDS: Magnesium Oxide 400 MG TABLET PO (08:17)
[2021-07-02] MEDS: Gabapentin 400 MG CAPSULE 800 MG PO ×3 (08:17→20:49)
[2021-07-02] MEDS: DULoxetine HCl 60 MG CAPSULE.DR PO (08:17)
[2021-07-02] MEDS: Sucralfate 1 GM TABLET PO ×4 (08:17→20:50)
[2021-07-02] MEDS: Fenofibrate 54 MG TABLET PO (08:17)
--- NOTE | 2021-07-02 13:26 | P.PNPSI_ITS ---
Subjective Subjective Date of Service: 07/02/21 Reason For Visit: SI,Depression Subjective Notes: Conditional Voluntary Interim History: Reports ongoing anxiety and depression with passive SI. Remains in bed a great deal. Encouraged to engage in milieu activity. Reports some pain relief with scheduled Tylenol Easily and actively engaged in dicsussion. Responsive to encouragement. Discussed history of treatment when ill-resting, remaining in bed, and some of the changing thoughts regarding this currently. Medication Compliance: Yes Side effects from medications: No Attending Groups: Intermittent Review of Systems Acute medical concerns: No Medical Review of Systems: unchanged Review of Systems Musculoskeletal: Reports other (chronic pain) Psychiatric: Reports abnormal sleep pattern (increase), Reports depression, Reports anhedonia and Reports suicidal ideation (intermittent passive SI without plan or intent) Mental Status Exam Mental Status Exam Patient Appearance: Fatigued and Disheveled Patient Orientation: Person, Place, Time and Situation Level of Consciousness: Alert Patient Behavior: Talkative, Cooperative and Good Eye Contact Mood Description: Apprehensive Affect Description: Flat Patient Cognition Impaired: No Ability to Follow Directions: Good Speech Pattern: Spontaneous Speech Memory Description: Episodic Impaired Hallucinations: None Delusions: Not Present Perceptual Disturbances: Depersonalization and Derealization Thought Process: Rumination and Goal Oriented Thought Content: positive for Goal Oriented and positive for Suicidal Ideation (passive, intermittent, without plan or intent) Depressive Symptoms: Sleeping More Than Usual and Increased Fatigue Judgement: Good Diagnostics Vital Signs (24Hr): Vital Signs - 24 hr 07/01/21 18:00 07/02/21 06:00 Temperature 98.2 F 97.7 F Pulse Rate 69 69 Respiratory Rate 16 Blood Pressure 156/75 H 111/56 L Pulse Oximetry 95 BMI result Body Mass Index 31.6 Labs Results: 06/26/21 16:50 06/26/21 16:50 Labs: Laboratory Results - last 48 hr 06/30/21 07/01/21 07/01/21 21:26 08:31 21:32 POC Glucose 252 H 241 H 226 H 07/02/21 06:33 POC Glucose 213 H Medications Medications Current Medications Acetaminophen (Acetaminophen 325 Mg Tablet) 650 mg PO Q6H [facility] Last Admin: 07/02/21 13:21 Dose: 650 mg Documented by: Al Hydroxide/Mg Hydroxide (Magnesium Hydrox/Alum Hydrox 30 Ml Oral.Susp) 30 ml PO Q6H PRN PRN Reason: Heartburn/Nausea Atorvastatin Calcium (Atorvastatin Calcium 40 Mg Tablet) 40 mg PO BEDTIME [facility] Last Admin: 07/01/21 21:36 Dose: 40 mg Documented by: Duloxetine HCl (Duloxetine Hcl 60 Mg Capsule.) 60 mg PO DAILY [facility] Last Admin: 07/02/21 08:17 Dose: 60 mg Documented by: Fenofibrate (Fenofibrate 54 Mg Tablet) 54 mg PO DAILY [facility] Last Admin: 07/02/21 08:17 Dose: 54 mg Documented by: Gabapentin (Gabapentin 400 Mg Capsule) 800 mg PO TID [facility] Last Admin: 07/02/21 08:17 Dose: 800 mg Documented by: Hydroxyzine HCl (Hydroxyzine Hcl 25 Mg Tablet) 25 mg PO Q6H PRN PRN Reason: Anxiety Lamotrigine (Lamotrigine 25 Mg Tablet) 25 mg PO BEDTIME [facility] Last Admin: 07/01/21 21:36 Dose: 25 mg Documented by: Magnesium Hydroxide (Milk Of Magnesia 30 Ml Oral.Susp) 30 ml PO DAILY PRN PRN Reason: Constipation Magnesium Oxide (Magnesium Oxide 400 Mg Tablet) 400 mg PO DAILY [facility] Last Admin: 07/02/21 08:17 Dose: 400 mg Documented by: Metformin HCl (Metformin Hcl Er 500 Mg Tab.Er.24h) 1,000 mg PO BID [facility] Last Admin: 07/02/21 08:16 Dose: 1,000 mg Documented by: Metoprolol Succinate (Metoprolol Succinate Er 25 Mg Tab.Er.24h) 25 mg PO BEDTIME [facility]; Protocol Last Admin: 07/01/21 21:38 Dose: 25 mg Documented by: Omeprazole (Omeprazole 20 Mg Capsule.) 20 mg PO BID@0630,1630 [facility] Last Admin: 07/02/21 06:29 Dose: 20 mg Documented by: Quetiapine Fumarate (Quetiapine Fumarate 50 Mg Tablet) 50 mg PO Q6H PRN PRN Reason: agitation, anxiety Last Admin: 07/02/21 08:17 Dose: 50 mg Documented by: Quetiapine Fumarate (Quetiapine Fumarate 100 Mg Tablet) 100 mg PO BEDTIME [facility] Last Admin: 07/01/21 21:36 Dose: 100 mg Documented by: Sucralfate (Sucralfate 1 Gm Tablet) 1 gm PO QID [facility] Last Admin: 07/02/21 13:21 Dose: 1 gm Documented by: Trazodone HCl (Trazodone Hcl 50 Mg Tablet) 50 mg PO BEDTIME PRN PRN Reason: Insomnia Allergies Allergies Allergy/AdvReac Type Severity Reaction Status Date / Time No Known Allergies Allergy Verified 05/31/21 11:24 Assessment & Plan Assessment & Plan (1) Cocaine use disorder: Status: Acute Code(s): F14.10 - Cocaine abuse, uncomplicated (2) MDD (major depressive disorder), recurrent episode, moderate: Status: Acute Code(s): F33.1 - Major depressive disorder, recurrent, moderate Plan Matthew is a 61 y.o. Male who carries a dx of MDD, recurrent and crack cocaine relapse. He presented to [facility] on 06/26/21 due to reporting depression, SI. Has chronic pain issues and ambulates in a wheelchair, hx of being on suboxone. He has been non-adherent with psych meds for a couple days. No OP psych providers, did not follow up with referrals since recent discharge from . Pt is working with [employer] program. Hx of VNA. Plan: Will increase gabapentin to 800 mg TID to help with mood stability, pain. Discussed limitations of utilizing NSAIDs for joint pain due to hx of upper GI bleeds. CV Q15 min safety checks Monitor response to medications. Monitor for safety in the milieu. Discharge on stabilization. Patient seen. Chart reviewed. Discussed with team. Obtain collateral contact info?as needed 06/27/21 Continue current regime. Pt reports today noncompliance as an out pt. Will re- establish regime and re-evaluate 06/28/21 Trial of Lamictal 25 mg hs-mood, pain 06/29/21: No change to the above plan 06/30/21: No changes 07/02/21: Continue current regime. Encourage more active participation. I spent minutes with the patient and/or on the patient floor today, greater than?50% of which was spent counseling/coordinating care. Patient educated on: medication risk/benefits, substance abuse, therapeutic strategies and medical condition Informed Consent: understands and further education needed Reason for contiued inpatient stay Substantial Risk for: harm to self, inability to function and rapid decompensation
[2021-07-02] MEDS: lamoTRIgine 25 MG TABLET PO (20:49)
[2021-07-02] MEDS: QUEtiapine Fumarate 100 MG TABLET PO (20:49)
[2021-07-02] MEDS: Metoprolol Succinate ER 25 MG TAB.ER.24H PO (20:49)
[2021-07-02] MEDS: Atorvastatin Calcium 40 MG TABLET PO (20:50)
[2021-07-02 21:15] VITALS: BP 128/60; PULSE 82; TEMP 36.3; O2SAT 95
[2021-07-02 22:14] LABS: Glucose, Whole Blood 275 mg/dL (60-115)
[2021-07-03 06:00] VITALS: BP 129/62; PULSE 72; RESP 18; TEMP 36.6; O2SAT 98
[2021-07-03] MEDS: Acetaminophen 325 MG TABLET 650 MG PO ×3 (06:08→19:15)
[2021-07-03] MEDS: Omeprazole 20 MG CAPSULE.DR PO ×2 (06:08→16:34)
[2021-07-03 06:19] LABS: Glucose, Whole Blood 230 mg/dL (60-115)
[2021-07-03] MEDS: Sucralfate 1 GM TABLET PO ×4 (08:54→20:54)
[2021-07-03] MEDS: metFORMIN HCl ER 500 MG TAB.ER.24H 1000 MG PO ×2 (08:54→20:55)
[2021-07-03] MEDS: Gabapentin 400 MG CAPSULE 800 MG PO ×3 (08:54→20:54)
[2021-07-03] MEDS: DULoxetine HCl 60 MG CAPSULE.DR PO (08:54)
[2021-07-03] MEDS: Fenofibrate 54 MG TABLET PO (08:54)
[2021-07-03] MEDS: Magnesium Oxide 400 MG TABLET PO (08:54)
[2021-07-03] MEDS: QUEtiapine Fumarate 50 MG TABLET PO ×2 (08:56→14:57)
[2021-07-03] MEDS: hydrOXYzine HCL 25 MG TABLET PO (16:28)
--- NOTE | 2021-07-03 17:19 | HO.PSYCHPN ---
Subjective Subjective Date of Service: 07/03/21 Reason For Visit: SI,Depression Subjective Notes: Conditional Voluntary Interim History: I am up Pt more visable in milieu today, smiling, interacting with peers. Well engaged in one to one. Questions his future-where to live, what would be best for him-discussed ambivalence. Medication Compliance: Yes Side effects from medications: No Attending Groups: Intermittent Review of Systems Acute medical concerns: No Medical Review of Systems: unchanged Review of Systems Psychiatric: Reports anxiety and Reports suicidal ideation (denies) Mental Status Exam Mental Status Exam Patient Appearance: Fatigued and Disheveled Patient Orientation: Person, Place, Time and Situation Level of Consciousness: Alert Patient Behavior: Talkative, Cooperative and Good Eye Contact Mood Description: Apprehensive Affect Description: Flat Patient Cognition Impaired: No Ability to Follow Directions: Good Speech Pattern: Spontaneous Speech Memory Description: Episodic Impaired Hallucinations: None Delusions: Not Present Perceptual Disturbances: Depersonalization and Derealization Thought Process: Rumination and Goal Oriented Thought Content: positive for Goal Oriented and positive for Suicidal Ideation (passive, intermittent, without plan or intent) Depressive Symptoms: Sleeping More Than Usual and Increased Fatigue Judgement: Good Diagnostics Vital Signs (24Hr): Vital Signs - 24 hr 07/02/21 21:15 07/03/21 06:00 Temperature 97.4 F 97.9 F Pulse Rate 82 72 Respiratory Rate 18 Blood Pressure 128/60 129/62 Pulse Oximetry 95 98 BMI result Body Mass Index 31.6 Labs Results: 06/26/21 16:50 06/26/21 16:50 Labs: Laboratory Results - last 48 hr 07/01/21 07/02/21 07/02/21 21:32 06:33 20:38 POC Glucose 226 H 213 H 275 H 07/03/21 06:13 POC Glucose 230 H Medications Medications Current Medications Acetaminophen (Acetaminophen 325 Mg Tablet) 650 mg PO Q6H [facility] Last Admin: 07/03/21 14:57 Dose: 650 mg Documented by: Al Hydroxide/Mg Hydroxide (Magnesium Hydrox/Alum Hydrox 30 Ml Oral.Susp) 30 ml PO Q6H PRN PRN Reason: Heartburn/Nausea Atorvastatin Calcium (Atorvastatin Calcium 40 Mg Tablet) 40 mg PO BEDTIME [facility] Last Admin: 07/02/21 20:50 Dose: 40 mg Documented by: Duloxetine HCl (Duloxetine Hcl 60 Mg Capsule.) 60 mg PO DAILY [facility] Last Admin: 07/03/21 08:54 Dose: 60 mg Documented by: Fenofibrate (Fenofibrate 54 Mg Tablet) 54 mg PO DAILY [facility] Last Admin: 07/03/21 08:54 Dose: 54 mg Documented by: Gabapentin (Gabapentin 400 Mg Capsule) 800 mg PO TID [facility] Last Admin: 07/03/21 14:57 Dose: 800 mg Documented by: Hydroxyzine HCl (Hydroxyzine Hcl 25 Mg Tablet) 25 mg PO Q6H PRN PRN Reason: Anxiety Last Admin: 07/03/21 16:28 Dose: 25 mg Documented by: Lamotrigine (Lamotrigine 25 Mg Tablet) 25 mg PO BEDTIME [facility] Last Admin: 07/02/21 20:49 Dose: 25 mg Documented by: Magnesium Hydroxide (Milk Of Magnesia 30 Ml Oral.Susp) 30 ml PO DAILY PRN PRN Reason: Constipation Magnesium Oxide (Magnesium Oxide 400 Mg Tablet) 400 mg PO DAILY [facility] Last Admin: 07/03/21 08:54 Dose: 400 mg Documented by: Metformin HCl (Metformin Hcl Er 500 Mg Tab.Er.24h) 1,000 mg PO BID [facility] Last Admin: 07/03/21 08:54 Dose: 1,000 mg Documented by: Metoprolol Succinate (Metoprolol Succinate Er 25 Mg Tab.Er.24h) 25 mg PO BEDTIME [facility]; Protocol Last Admin: 07/02/21 20:49 Dose: 25 mg Documented by: Omeprazole (Omeprazole 20 Mg Capsule.Dr) 20 mg PO BID@0630,1630 [facility] Last Admin: 07/03/21 16:34 Dose: 20 mg Documented by: Quetiapine Fumarate (Quetiapine Fumarate 50 Mg Tablet) 50 mg PO Q6H PRN PRN Reason: agitation, anxiety Last Admin: 07/03/21 14:57 Dose: 50 mg Documented by: Quetiapine Fumarate (Quetiapine Fumarate 100 Mg Tablet) 100 mg PO BEDTIME [facility] Last Admin: 07/02/21 20:49 Dose: 100 mg Documented by: Sucralfate (Sucralfate 1 Gm Tablet) 1 gm PO QID [facility] Last Admin: 07/03/21 16:34 Dose: 1 gm Documented by: Trazodone HCl (Trazodone Hcl 50 Mg Tablet) 50 mg PO BEDTIME PRN PRN Reason: Insomnia Allergies Allergies Allergy/AdvReac Type Severity Reaction Status Date / Time No Known Allergies Allergy Verified 05/31/21 11:24 Assessment & Plan Assessment & Plan (1) Cocaine use disorder: Status: Acute Code(s): F14.10 - Cocaine abuse, uncomplicated (2) MDD (major depressive disorder), recurrent episode, moderate: Status: Acute Code(s): F33.1 - Major depressive disorder, recurrent, moderate Plan Matthew is a 61 y.o. Male who carries a dx of MDD, recurrent and crack cocaine relapse. He presented to [facility] on 06/26/21 due to reporting depression, SI. Has chronic pain issues and ambulates in a wheelchair, hx of being on suboxone. He has been non-adherent with psych meds for a couple days. No OP psych providers, did not follow up with referrals since recent discharge from . Pt is working with [employer] program. Hx of VNA. Plan: Will increase gabapentin to 800 mg TID to help with mood stability, pain. Discussed limitations of utilizing NSAIDs for joint pain due to hx of upper GI bleeds. CV Q15 min safety checks Monitor response to medications. Monitor for safety in the milieu. Discharge on stabilization. Patient seen. Chart reviewed. Discussed with team. Obtain collateral contact info?as needed 06/27/21 Continue current regime. Pt reports today noncompliance as an out pt. Will re-establish regime and re-evaluate 06/28/21 Trial of Lamictal 25 mg hs-mood, pain 06/29/21: No change to the above plan 06/30/21: No changes 07/01/21: Encourage increase in milieu participation Schedule Tylenol for improved pain mgt. Continues to report depressive symptoms-passive, intermittent SI, but does want to attend [facility] for treatment. 07/03/21: Continue current plan of care. I spent minutes with the patient and/or on the patient floor today, greater than?50% of which was spent counseling/coordinating care. Patient educated on: medication risk/benefits, substance abuse and therapeutic strategies Informed Consent: understands and further education needed Reason for contiued inpatient stay Substantial Risk for: harm to self, inability to function and med/psych decompensation
[2021-07-03 18:00] VITALS: BP 126/71; PULSE 77; TEMP 36.6; O2SAT 96
[2021-07-03] MEDS: Metoprolol Succinate ER 25 MG TAB.ER.24H PO (20:54)
[2021-07-03] MEDS: Atorvastatin Calcium 40 MG TABLET PO (20:54)
[2021-07-03] MEDS: QUEtiapine Fumarate 100 MG TABLET PO (20:55)
[2021-07-03] MEDS: lamoTRIgine 25 MG TABLET PO (20:55)
[2021-07-03] MEDS: traZODone HCL 50 MG TABLET PO (21:02)
[2021-07-03 21:15] LABS: Glucose, Whole Blood 260 mg/dL (60-115)
[2021-07-04 06:00] VITALS: BP 129/62; PULSE 62; RESP 16; TEMP 36.2; O2SAT 100
[2021-07-04 06:28] LABS: Glucose, Whole Blood 222 mg/dL (60-115)
[2021-07-04] MEDS: Omeprazole 20 MG CAPSULE.DR PO ×2 (06:34→15:49)
[2021-07-04] MEDS: Acetaminophen 325 MG TABLET 650 MG PO ×2 (09:43→14:55)
[2021-07-04] MEDS: Sucralfate 1 GM TABLET PO ×4 (09:44→19:44)
[2021-07-04] MEDS: Gabapentin 400 MG CAPSULE 800 MG PO ×3 (09:45→19:44)
[2021-07-04] MEDS: DULoxetine HCl 60 MG CAPSULE.DR PO (09:45)
[2021-07-04] MEDS: metFORMIN HCl ER 500 MG TAB.ER.24H 1000 MG PO ×2 (09:45→19:44)
[2021-07-04] MEDS: Fenofibrate 54 MG TABLET PO (09:45)
[2021-07-04] MEDS: Magnesium Oxide 400 MG TABLET PO (09:46)
[2021-07-04] MEDS: QUEtiapine Fumarate 50 MG TABLET PO ×2 (10:05→15:49)
[2021-07-04 10:13] LABS: Anion Gap 13 (12-20); Blood Urea Nitrogen 13 mg/dL (9-16); Calcium 9.1 mg/dL (8.4-10.2); Carbon Dioxide 25 mmol/L (22-29); Chloride 100 mmol/L (96-108); Creatinine Clr Calc Pharmacy 105.2; Estimated Glomerular Filt Rate > 60; Glucose Random 206 mg/dL (60-115); Potassium 4.2 mmol/L (3.3-5.1); Sodium 134 mmol/L (135-145)
--- NOTE | 2021-07-04 15:00 | MHC.RECOVRN ---
T/w met with pt in 517 after consult placed to Addiction Medicine regarding pts desire to restart Suboxone. Pt in bed, awake, alert, easily engaged in conversation. Per pt, was prescribed Suboxone x 1 year, last 3-4 months ago. Pts initial request to resume due to help with pain and anxiety. Pt also stated desire to resume to zone out. Pt reports last opiate use over 10 years ago, currently using crack cocaine, INH. Denies other substances. Pt reports occasional opiate cravings. Pts primary concern is pain, had been to a pain clinic in [place], [place] years ago. Pt encouraged to discuss returning to a pain clinic with [facility]. Discussed with Dina Jones APRN. Will follow up on 07/05.
--- NOTE | 2021-07-04 16:07 | HO.PSYCHPN ---
Subjective Subjective Date of Service: 07/04/21 Reason For Visit: SI,Depression Interim History: Patient seen and discussed with team. Patient evaluated this today and upon interview he reports he is doing good, thinking about doing an IOP upon discharge, says he really doesnt want to go to a substance abuse program. However, barrier is that he is unable to do remote sessions because he does not have a device with a screen. He also doesn't like groups. Sleep is good, says the seroquel pretty much knocks me out. No questions or concerns. In the milieu, patient is safe but isolative to his room. Denies SI/SIB/HI upon inquiry. Denies irritability or assaultive ideation. Says he feels safe. Medication Compliance: Yes Side effects from medications: No Attending Groups: No Review of Systems Acute medical concerns: No Medical Review of Systems: unchanged Mental Status Exam Mental Status Exam Narrative: Patient Appearance:?Fatigued and Disheveled Patient Orientation:?Person, Place, Time and Situation Level of Consciousness:?Alert Patient Behavior:?Talkative, Cooperative and Good Eye Contact Mood Description:?Apprehensive Affect Description:?Flat Patient Cognition Impaired:?No Ability to Follow Directions:?Good Speech Pattern:?Spontaneous Speech Memory Description:?Episodic Impaired Hallucinations:?None Delusions:?Not Present Perceptual Disturbances:?Depersonalization and Derealization Thought Process:?Rumination and Goal Oriented Thought Content:?positive for Goal Oriented and positive for Suicidal Ideation (passive, intermittent, without plan or intent) Depressive Symptoms:?Sleeping More Than Usual and Increased Fatigue Judgement:?Good Diagnostics Vital Signs (24Hr): Vital Signs - 24 hr 07/03/21 18:00 07/04/21 06:00 Temperature 97.9 F 97.1 F Pulse Rate 77 62 Respiratory Rate 16 Blood Pressure 126/71 129/62 Pulse Oximetry 96 100 BMI result Body Mass Index 31.6 Labs Results: 06/26/21 16:50 07/04/21 08:10 Labs: Laboratory Results - last 48 hr 07/02/21 07/03/21 07/03/21 20:38 06:13 20:59 Sodium Potassium Chloride Carbon Dioxide Anion Gap BUN Creatinine Estim Creat Clear Calc Estimated GFR POC Glucose 275 H 230 H 260 H Random Glucose Calcium 07/04/21 07/04/21 06:08 08:10 Sodium 134 L Potassium 4.2 Chloride 100 Carbon Dioxide 25 Anion Gap 13 BUN 13 Creatinine 0.79 Estim Creat Clear Calc 105.2 Estimated GFR > 60 POC Glucose 222 H Random Glucose 206 H Calcium 9.1 D Medications Medications Current Medications Acetaminophen (Acetaminophen 325 Mg Tablet) 650 mg PO Q6H [facility] Last Admin: 07/04/21 14:55 Dose: 650 mg Documented by: Al Hydroxide/Mg Hydroxide (Magnesium Hydrox/Alum Hydrox 30 Ml Oral.Susp) 30 ml PO Q6H PRN PRN Reason: Heartburn/Nausea Atorvastatin Calcium (Atorvastatin Calcium 40 Mg Tablet) 40 mg PO BEDTIME [facility] Last Admin: 07/03/21 20:54 Dose: 40 mg Documented by: Duloxetine HCl (Duloxetine Hcl 60 Mg Capsule.) 60 mg PO DAILY [facility] Last Admin: 07/04/21 09:45 Dose: 60 mg Documented by: Fenofibrate (Fenofibrate 54 Mg Tablet) 54 mg PO DAILY [facility] Last Admin: 07/04/21 09:45 Dose: 54 mg Documented by: Gabapentin (Gabapentin 400 Mg Capsule) 800 mg PO TID [facility] Last Admin: 07/04/21 14:56 Dose: 800 mg Documented by: Hydroxyzine HCl (Hydroxyzine Hcl 25 Mg Tablet) 25 mg PO Q6H PRN PRN Reason: Anxiety Last Admin: 07/03/21 16:28 Dose: 25 mg Documented by: Lamotrigine (Lamotrigine 25 Mg Tablet) 25 mg PO BEDTIME [facility] Last Admin: 07/03/21 20:55 Dose: 25 mg Documented by: Magnesium Hydroxide (Milk Of Magnesia 30 Ml Oral.Susp) 30 ml PO DAILY PRN PRN Reason: Constipation Magnesium Oxide (Magnesium Oxide 400 Mg Tablet) 400 mg PO DAILY [facility] Last Admin: 07/04/21 09:46 Dose: 400 mg Documented by: Metformin HCl (Metformin Hcl Er 500 Mg Tab.Er.24h) 1,000 mg PO BID [facility] Last Admin: 07/04/21 09:45 Dose: 1,000 mg Documented by: Metoprolol Succinate (Metoprolol Succinate Er 25 Mg Tab.Er.24h) 25 mg PO BEDTIME [facility]; Protocol Last Admin: 07/03/21 20:54 Dose: 25 mg Documented by: Omeprazole (Omeprazole 20 Mg Capsule.) 20 mg PO BID@0630,1630 [facility] Last Admin: 07/04/21 15:49 Dose: 20 mg Documented by: Quetiapine Fumarate (Quetiapine Fumarate 50 Mg Tablet) 50 mg PO Q6H PRN PRN Reason: agitation, anxiety Last Admin: 07/04/21 15:49 Dose: 50 mg Documented by: Quetiapine Fumarate (Quetiapine Fumarate 100 Mg Tablet) 100 mg PO BEDTIME [facility] Last Admin: 07/03/21 20:55 Dose: 100 mg Documented by: Sucralfate (Sucralfate 1 Gm Tablet) 1 gm PO QID [facility] Last Admin: 07/04/21 15:49 Dose: 1 gm Documented by: Trazodone HCl (Trazodone Hcl 50 Mg Tablet) 50 mg PO BEDTIME PRN PRN Reason: Insomnia Last Admin: 07/03/21 21:02 Dose: 50 mg Documented by: Allergies Allergies Allergy/AdvReac Type Severity Reaction Status Date / Time No Known Allergies Allergy Verified 05/31/21 11:24 Assessment & Plan Assessment & Plan (1) Cocaine use disorder: Status: Acute Code(s): F14.10 - Cocaine abuse, uncomplicated (2) MDD (major depressive disorder), recurrent episode, moderate: Status: Acute Code(s): F33.1 - Major depressive disorder, recurrent, moderate Plan Matthew is a 61 y.o. Male who carries a dx of MDD, recurrent and crack cocaine relapse. He presented to [facility] on 06/26/21 due to reporting depression, SI. Has chronic pain issues and ambulates in a wheelchair, hx of being on suboxone. He has been non-adherent with psych meds for a couple days. No OP psych providers, did not follow up with referrals since recent discharge from . Pt is working with [employer] program. Hx of VNA. Plan: Will increase gabapentin to 800 mg TID to help with mood stability, pain. Discussed limitations of utilizing NSAIDs for joint pain due to hx of upper GI bleeds. CV Q15 min safety checks Monitor response to medications. Monitor for safety in the milieu. Discharge on stabilization. Patient seen. Chart reviewed. Discussed with team. Obtain collateral contact info?as needed 06/27/21 Continue current regime. Pt reports today noncompliance as an out pt. Will re-establish regime and re-evaluate 06/28/21 Trial of Lamictal 25 mg hs-mood, pain 06/29/21: No change to the above plan 06/30/21: No changes 07/01/21: Encourage increase in milieu participation Schedule Tylenol for improved pain mgt. Continues to report depressive symptoms-passive, intermittent SI, but does [facility]. 07/03/21: Continue current plan of care. 07/04/21: No changes to primary medication regimen, pt interested in IOP I spent minutes with the patient and/or on the patient floor today, greater than?50% of which was spent counseling/coordinating care. Reason for contiued inpatient stay Substantial Risk for: med/psych decompensation
[2021-07-04 18:51] VITALS: BP 135/67; PULSE 67
[2021-07-04 19:30] VITALS: BP 130/60; PULSE 70
[2021-07-04] MEDS: lamoTRIgine 25 MG TABLET PO (19:44)
[2021-07-04] MEDS: Metoprolol Succinate ER 25 MG TAB.ER.24H PO (19:44)
[2021-07-04] MEDS: QUEtiapine Fumarate 100 MG TABLET PO (19:44)
[2021-07-04] MEDS: Atorvastatin Calcium 40 MG TABLET PO (19:44)
[2021-07-04 20:00] LABS: Glucose, Whole Blood 278 mg/dL (60-115)
[2021-07-04] MEDS: traZODone HCL 50 MG TABLET PO (21:57)
[2021-07-05 06:00] VITALS: BP 126/66; PULSE 76; RESP 18; TEMP 36.4; O2SAT 96
[2021-07-05] MEDS: Omeprazole 20 MG CAPSULE.DR PO ×2 (06:34→16:52)
[2021-07-05] MEDS: Gabapentin 400 MG CAPSULE 800 MG PO ×3 (08:33→20:22)
[2021-07-05] MEDS: Fenofibrate 54 MG TABLET PO (08:33)
[2021-07-05] MEDS: metFORMIN HCl ER 500 MG TAB.ER.24H 1000 MG PO ×2 (08:33→20:22)
[2021-07-05] MEDS: Sucralfate 1 GM TABLET PO ×4 (08:33→20:22)
[2021-07-05] MEDS: Magnesium Oxide 400 MG TABLET PO (08:34)
[2021-07-05] MEDS: DULoxetine HCl 60 MG CAPSULE.DR PO (08:34)
[2021-07-05] MEDS: Acetaminophen 325 MG TABLET 650 MG PO ×3 (08:34→17:56)
[2021-07-05] MEDS: QUEtiapine Fumarate 50 MG TABLET PO ×2 (08:47→13:59)
--- NOTE | 2021-07-05 18:18 | P.PNPSI_ITS ---
Subjective Subjective Date of Service: 07/05/21 Reason For Visit: SI,Depression Interim History: In milieu, plans discharge for 07/08. Has decided to return home he reports. Denies medication SE, reports he is wanting to work with [employer] program he has enrolled in to see what services they can put in place. He does report he would have interest in IOP if available. Medication Compliance: Yes Side effects from medications: No Attending Groups: Intermittent Review of Systems Acute medical concerns: No Medical Review of Systems: unchanged Review of Systems Psychiatric: Reports anxiety and Reports suicidal ideation (denies) Mental Status Exam Mental Status Exam Patient Appearance: Fatigued and Disheveled Patient Orientation: Person, Place, Time and Situation Level of Consciousness: Alert Patient Behavior: Talkative, Cooperative and Good Eye Contact Mood Description: Apprehensive Affect Description: Flat Patient Cognition Impaired: No Ability to Follow Directions: Good Speech Pattern: Spontaneous Speech Memory Description: Episodic Impaired Hallucinations: None Delusions: Not Present Perceptual Disturbances: Depersonalization and Derealization Thought Process: Rumination and Goal Oriented Thought Content: positive for Goal Oriented and positive for Suicidal Ideation (passive, intermittent, without plan or intent) Depressive Symptoms: Sleeping More Than Usual and Increased Fatigue Judgement: Good Diagnostics Vital Signs (24Hr): Vital Signs - 24 hr 07/04/21 18:51 07/04/21 19:30 07/05/21 06:00 Temperature 97.6 F Pulse Rate 67 70 76 Respiratory Rate 18 Blood Pressure 135/67 130/60 126/66 Pulse Oximetry 96 BMI result Body Mass Index 31.6 Labs Results: 06/26/21 16:50 07/04/21 08:10 Labs: Laboratory Results - last 48 hr 07/03/21 07/04/21 07/04/21 20:59 06:08 08:10 Sodium 134 L Potassium 4.2 Chloride 100 Carbon Dioxide 25 Anion Gap 13 BUN 13 Creatinine 0.79 Estim Creat Clear Calc 105.2 Estimated GFR > 60 POC Glucose 260 H 222 H Random Glucose 206 H Calcium 9.1 D 07/04/21 19:40 Sodium Potassium Chloride Carbon Dioxide Anion Gap BUN Creatinine Estim Creat Clear Calc Estimated GFR POC Glucose 278 H Random Glucose Calcium Medications Medications Current Medications Acetaminophen (Acetaminophen 325 Mg Tablet) 650 mg PO Q6H [facility] Last Admin: 07/05/21 17:56 Dose: 650 mg Documented by: Al Hydroxide/Mg Hydroxide (Magnesium Hydrox/Alum Hydrox 30 Ml Oral.Susp) 30 ml PO Q6H PRN PRN Reason: Heartburn/Nausea Atorvastatin Calcium (Atorvastatin Calcium 40 Mg Tablet) 40 mg PO BEDTIME [facility] Last Admin: 07/04/21 19:44 Dose: 40 mg Documented by: Duloxetine HCl (Duloxetine Hcl 60 Mg Capsule.) 60 mg PO DAILY [facility] Last Admin: 07/05/21 08:34 Dose: 60 mg Documented by: Fenofibrate (Fenofibrate 54 Mg Tablet) 54 mg PO DAILY [facility] Last Admin: 07/05/21 08:33 Dose: 54 mg Documented by: Gabapentin (Gabapentin 400 Mg Capsule) 800 mg PO TID [facility] Last Admin: 07/05/21 13:59 Dose: 800 mg Documented by: Hydroxyzine HCl (Hydroxyzine Hcl 25 Mg Tablet) 25 mg PO Q6H PRN PRN Reason: Anxiety Last Admin: 07/03/21 16:28 Dose: 25 mg Documented by: Lamotrigine (Lamotrigine 25 Mg Tablet) 25 mg PO BEDTIME [facility] Last Admin: 07/04/21 19:44 Dose: 25 mg Documented by: Magnesium Hydroxide (Milk Of Magnesia 30 Ml Oral.Susp) 30 ml PO DAILY PRN PRN Reason: Constipation Magnesium Oxide (Magnesium Oxide 400 Mg Tablet) 400 mg PO DAILY [facility] Last Admin: 07/05/21 08:34 Dose: 400 mg Documented by: Metformin HCl (Metformin Hcl Er 500 Mg Tab.Er.24h) 1,000 mg PO BID [facility] Last Admin: 07/05/21 08:33 Dose: 1,000 mg Documented by: Metoprolol Succinate (Metoprolol Succinate Er 25 Mg Tab.Er.24h) 25 mg PO BEDTIME [facility]; Protocol Last Admin: 07/04/21 19:44 Dose: 25 mg Documented by: Omeprazole (Omeprazole 20 Mg Capsule.) 20 mg PO BID@0630,1630 [facility] Last Admin: 07/05/21 16:52 Dose: 20 mg Documented by: Quetiapine Fumarate (Quetiapine Fumarate 50 Mg Tablet) 50 mg PO Q6H PRN PRN Reason: agitation, anxiety Last Admin: 07/05/21 13:59 Dose: 50 mg Documented by: Quetiapine Fumarate (Quetiapine Fumarate 100 Mg Tablet) 100 mg PO BEDTIME [facility] Last Admin: 07/04/21 19:44 Dose: 100 mg Documented by: Sucralfate (Sucralfate 1 Gm Tablet) 1 gm PO QID [facility] Last Admin: 07/05/21 16:52 Dose: 1 gm Documented by: Trazodone HCl (Trazodone Hcl 50 Mg Tablet) 50 mg PO BEDTIME PRN PRN Reason: Insomnia Last Admin: 07/04/21 21:57 Dose: 50 mg Documented by: Allergies Allergies Allergy/AdvReac Type Severity Reaction Status Date / Time No Known Allergies Allergy Verified 05/31/21 11:24 Assessment & Plan Assessment & Plan (1) Cocaine use disorder: Status: Acute Code(s): F14.10 - Cocaine abuse, uncomplicated (2) MDD (major depressive disorder), recurrent episode, moderate: Status: Acute Code(s): F33.1 - Major depressive disorder, recurrent, moderate Plan Matthew is a 61 y.o. Male who carries a dx of MDD, recurrent and crack cocaine rel apse. He presented to [facility] ED on 06/26/21 due to reporting depression, SI. Has chronic pain issues and ambulates in a wheelchair, hx of being on suboxone. He has been non-adherent with psych meds for a couple days. No OP psych providers, did not follow up with referrals since recent discharge from . Pt is working with [employer] program. Hx of VNA. Plan: Will increase gabapentin to 800 mg TID to help with mood stability, pain. Discussed limitations of utilizing NSAIDs for joint pain due to hx of upper GI bleeds. CV Q15 min safety checks Monitor response to medications. Monitor for safety in the milieu. Discharge on stabilization. Patient seen. Chart reviewed. Discussed with team. Obtain collateral contact info?as needed 06/27/21 Continue current regime. Pt reports today noncompliance as an out pt. Will re- establish regime and re-evaluate 06/28/21 Trial of Lamictal 25 mg hs-mood, pain 06/29/21: No change to the above plan 06/30/21: No changes 07/01/21: Encourage increase in milieu participation Schedule Tylenol for improved pain mgt. Continues to report depressive symptoms-passive, intermittent SI, but does want to attend [facility] for treatment. 07/03/21: Continue current plan of care. 07/05/21: Re-check Na on 07/07. Continue current plan of care. I spent minutes with the patient and/or on the patient floor today, greater than?50% of which was spent counseling/coordinating care. Patient educated on: therapeutic strategies Informed Consent: further education needed (pt changes his mind often-continue to assess) Reason for contiued inpatient stay Substantial Risk for: harm to self, inability to function and rapid decompensation
[2021-07-05 19:47] LABS: Glucose, Whole Blood 267 mg/dL (60-115)
[2021-07-05 20:05] VITALS: BP 127/59; PULSE 77
[2021-07-05] MEDS: Atorvastatin Calcium 40 MG TABLET PO (20:22)
[2021-07-05] MEDS: QUEtiapine Fumarate 100 MG TABLET PO (20:22)
[2021-07-05] MEDS: Metoprolol Succinate ER 25 MG TAB.ER.24H PO (20:22)
[2021-07-05] MEDS: lamoTRIgine 25 MG TABLET PO (20:22)
[2021-07-06 06:00] VITALS: BP 132/65; PULSE 70; TEMP 36.5; O2SAT 99
[2021-07-06] MEDS: Omeprazole 20 MG CAPSULE.DR PO ×2 (06:35→16:12)
[2021-07-06] MEDS: Acetaminophen 325 MG TABLET 650 MG PO ×3 (06:35→21:31)
[2021-07-06 06:49] LABS: Glucose, Whole Blood 197 mg/dL (60-115)
[2021-07-06] MEDS: QUEtiapine Fumarate 50 MG TABLET PO ×2 (09:10→16:12)
[2021-07-06] MEDS: Magnesium Oxide 400 MG TABLET PO (09:10)
[2021-07-06] MEDS: DULoxetine HCl 60 MG CAPSULE.DR PO (09:10)
[2021-07-06] MEDS: metFORMIN HCl ER 500 MG TAB.ER.24H 1000 MG PO ×2 (09:10→21:31)
[2021-07-06] MEDS: Sucralfate 1 GM TABLET PO ×4 (09:10→21:32)
[2021-07-06] MEDS: Fenofibrate 54 MG TABLET PO (09:10)
[2021-07-06] MEDS: Gabapentin 400 MG CAPSULE 800 MG PO ×3 (09:10→21:32)
[2021-07-06] MEDS: hydrOXYzine HCL 25 MG TABLET PO (14:42)
[2021-07-06 18:00] VITALS: BP 136/73; PULSE 88; RESP 18; TEMP 37
[2021-07-06 21:06] LABS: Glucose, Whole Blood 255 mg/dL (60-115)
[2021-07-06] MEDS: QUEtiapine Fumarate 100 MG TABLET PO (21:31)
[2021-07-06] MEDS: Metoprolol Succinate ER 25 MG TAB.ER.24H PO (21:31)
[2021-07-06] MEDS: Atorvastatin Calcium 40 MG TABLET PO (21:32)
[2021-07-06] MEDS: lamoTRIgine 25 MG TABLET PO (21:33)
--- NOTE | 2021-07-06 23:37 | P.PNPSI_ITS ---
Subjective Subjective Date of Service: 07/06/21 Reason For Visit: SI,Depression Interim History: pt says i'm good....i'm discharging thursday. He denies SI or HI and says he has no complaints or requests. Mental Status Exam Mental Status Exam Narrative: Patient Appearance:?unkempt Patient Orientation:?Person, Place, Time and Situation Level of Consciousness:?Alert Patient Behavior:?Talkative, Cooperative and Good Eye Contact Mood Description:?Apprehensive Affect Description:?Flat Patient Cognition Impaired:?No Ability to Follow Directions:?Good Speech Pattern:?Spontaneous Speech Memory Description:?Episodic Impaired Hallucinations:?None Delusions:?Not Present Perceptual Disturbances:?Depersonalization and Derealization Thought Process:?Rumination and Goal Oriented Thought Content:?positive for Goal Oriented and positive for Suicidal Ideation (passive, intermittent, without plan or intent) Depressive Symptoms:?Sleeping More Than Usual and Increased Fatigue Judgement:?Good Diagnostics Vital Signs (24Hr): Vital Signs - 24 hr 07/06/21 06:00 07/06/21 18:00 Temperature 97.7 F 98.6 F Pulse Rate 70 88 Respiratory Rate 18 Blood Pressure 132/65 136/73 Pulse Oximetry 99 BMI result Body Mass Index 31.6 Labs Results: 06/26/21 16:50 07/04/21 08:10 Labs: Laboratory Results - last 48 hr 07/05/21 07/06/21 07/06/21 19:43 06:41 21:01 POC Glucose 267 H 197 H 255 H Medications Medications Current Medications Acetaminophen (Acetaminophen 325 Mg Tablet) 650 mg PO Q6H [facility] Last Admin: 07/06/21 21:31 Dose: 650 mg Documented by: Al Hydroxide/Mg Hydroxide (Magnesium Hydrox/Alum Hydrox 30 Ml Oral.Susp) 30 ml PO Q6H PRN PRN Reason: Heartburn/Nausea Atorvastatin Calcium (Atorvastatin Calcium 40 Mg Tablet) 40 mg PO BEDTIME [facility] Last Admin: 07/06/21 21:32 Dose: 40 mg Documented by: Duloxetine HCl (Duloxetine Hcl 60 Mg Capsule.) 60 mg PO DAILY [facility] Last Admin: 07/06/21 09:10 Dose: 60 mg Documented by: Fenofibrate (Fenofibrate 54 Mg Tablet) 54 mg PO DAILY [facility] Last Admin: 07/06/21 09:10 Dose: 54 mg Documented by: Gabapentin (Gabapentin 400 Mg Capsule) 800 mg PO TID [facility] Last Admin: 07/06/21 21:32 Dose: 800 mg Documented by: Hydroxyzine HCl (Hydroxyzine Hcl 25 Mg Tablet) 25 mg PO Q6H PRN PRN Reason: Anxiety Last Admin: 07/06/21 14:42 Dose: 25 mg Documented by: Lamotrigine (Lamotrigine 25 Mg Tablet) 25 mg PO BEDTIME [facility] Last Admin: 07/06/21 21:33 Dose: 25 mg Documented by: Magnesium Hydroxide (Milk Of Magnesia 30 Ml Oral.Susp) 30 ml PO DAILY PRN PRN Reason: Constipation Magnesium Oxide (Magnesium Oxide 400 Mg Tablet) 400 mg PO DAILY [facility] Last Admin: 07/06/21 09:10 Dose: 400 mg Documented by: Metformin HCl (Metformin Hcl Er 500 Mg Tab.Er.24h) 1,000 mg PO BID [facility] Last Admin: 07/06/21 21:31 Dose: 1,000 mg Documented by: Metoprolol Succinate (Metoprolol Succinate Er 25 Mg Tab.Er.24h) 25 mg PO BEDTIME [facility]; Protocol Last Admin: 07/06/21 21:31 Dose: 25 mg Documented by: Omeprazole (Omeprazole 20 Mg Capsule.Dr) 20 mg PO BID@0630,1630 [facility] Last Admin: 07/06/21 16:12 Dose: 20 mg Documented by: Quetiapine Fumarate (Quetiapine Fumarate 50 Mg Tablet) 50 mg PO Q6H PRN PRN Reason: agitation, anxiety Last Admin: 07/06/21 16:12 Dose: 50 mg Documented by: Quetiapine Fumarate (Quetiapine Fumarate 100 Mg Tablet) 100 mg PO BEDTIME [facility] Last Admin: 07/06/21 21:31 Dose: 100 mg Documented by: Sucralfate (Sucralfate 1 Gm Tablet) 1 gm PO QID [facility] Last Admin: 07/06/21 21:32 Dose: 1 gm Documented by: Trazodone HCl (Trazodone Hcl 50 Mg Tablet) 50 mg PO BEDTIME PRN PRN Reason: Insomnia Last Admin: 07/04/21 21:57 Dose: 50 mg Documented by: Allergies Allergies Allergy/AdvReac Type Severity Reaction Status Date / Time No Known Allergies Allergy Verified 05/31/21 11:24 Assessment & Plan Assessment & Plan (1) Cocaine use disorder: Status: Acute Code(s): F14.10 - Cocaine abuse, uncomplicated (2) MDD (major depressive disorder), recurrent episode, moderate: Status: Acute Code(s): F33.1 - Major depressive disorder, recurrent, moderate Plan Matthew is a 61 y.o. Male who carries a dx of MDD, recurrent and crack cocaine relapse. He presented to [facility] ED on 06/26/21 due to reporting depression, SI. Has chronic pain issues and ambulates in a wheelchair, hx of being on suboxone. He has been non-adherent with psych meds for a couple days. No OP psych providers, did not follow up with referrals since recent discharge from . Pt is working with [employer]. Hx of VNA. Plan: Will increase gabapentin to 800 mg TID to help with mood stability, pain. Discussed limitations of utilizing NSAIDs for joint pain due to hx of upper GI bleeds. CV Q15 min safety checks Monitor response to medications. Monitor for safety in the milieu. Discharge on stabilization. Patient seen. Chart reviewed. Discussed with team. Obtain collateral contact info?as needed 06/27/21 Continue current regime. Pt reports today noncompliance as an out pt. Will re- establish regime and re-evaluate 06/28/21 Trial of Lamictal 25 mg hs-mood, pain 06/29/21: No change to the above plan 06/30/21: No changes 07/01/21: Encourage increase in milieu participation Schedule Tylenol for improved pain mgt. Continues to report depressive symptoms-passive, intermittent SI, but does want to attend [facility] for treatment. 07/03/21: Continue current plan of care. 07/04/21: No changes to primary medication regimen, pt interested in IOP 07/06 stable; no changes to tx plan I spent minutes with the patient and/or on the patient floor today, greater than?50% of which was spent counseling/coordinating care. Reason for contiued inpatient stay Substantial Risk for: stable for discharge
[2021-07-07] MEDS: Omeprazole 20 MG CAPSULE.DR PO ×2 (05:25→16:17)
[2021-07-07] MEDS: Acetaminophen 325 MG TABLET 650 MG PO ×3 (05:25→19:59)
[2021-07-07 06:14] LABS: Glucose, Whole Blood 268 mg/dL (60-115)
[2021-07-07 07:33] LABS: Sodium 133 mmol/L (135-145)
[2021-07-07 08:27] LABS: Glucose, Whole Blood 228 mg/dL (60-115)
[2021-07-07 08:32] VITALS: BP 119/63; PULSE 67; TEMP 36.7; O2SAT 96
[2021-07-07] MEDS: Gabapentin 400 MG CAPSULE 800 MG PO ×3 (08:56→20:00)
[2021-07-07] MEDS: metFORMIN HCl ER 500 MG TAB.ER.24H 1000 MG PO ×2 (08:56→19:58)
[2021-07-07] MEDS: Sucralfate 1 GM TABLET PO ×4 (08:56→19:59)
[2021-07-07] MEDS: DULoxetine HCl 60 MG CAPSULE.DR PO (08:56)
[2021-07-07] MEDS: Fenofibrate 54 MG TABLET PO (08:56)
[2021-07-07] MEDS: QUEtiapine Fumarate 50 MG TABLET PO ×2 (08:56→16:24)
[2021-07-07] MEDS: Magnesium Oxide 400 MG TABLET PO (08:56)
--- NOTE | 2021-07-07 17:29 | P.PNPSI_ITS ---
Subjective Subjective Date of Service: 07/07/21 Reason For Visit: SI,Depression Interim History: Patient reports that he is doing good and looks forward to discharging tomorrow. He is pleasant, calm, friendly and interactive. Patient denies any complaints and has no requests. Patient feels safe, no SI or HI. Mental Status Exam Mental Status Exam Narrative: Patient Appearance:?unkempt Patient Orientation:?Person, Place, Time and Situation Level of Consciousness:?Alert Patient Behavior:?Talkative, Cooperative and Good Eye Contact Mood Description:?good Affect Description:?Flat Patient Cognition Impaired:?No Ability to Follow Directions:?Good Speech Pattern:?Spontaneous Speech Memory Description:?Episodic Impaired Hallucinations:?None Delusions:?Not Present Perceptual Disturbances:?Depersonalization and Derealization Thought Process:?Rumination and Goal Oriented Thought Content:?positive for Goal Oriented; denies SI/HI Judgement:?fair Diagnostics Vital Signs (24Hr): Vital Signs - 24 hr 07/06/21 18:00 07/07/21 08:32 Temperature 98.6 F 98.0 F Pulse Rate 88 67 Respiratory Rate 18 Blood Pressure 136/73 119/63 Pulse Oximetry 96 BMI result Body Mass Index 31.6 Labs Results: 06/26/21 16:50 07/07/21 07:15 Labs: Laboratory Results - last 48 hr 07/05/21 07/06/21 07/06/21 19:43 06:41 21:01 Sodium POC Glucose 267 H 197 H 255 H 07/07/21 07/07/21 07/07/21 06:09 07:15 08:23 Sodium 133 L POC Glucose 268 H 228 H Medications Medications Current Medications Acetaminophen (Acetaminophen 325 Mg Tablet) 650 mg PO Q6H [facility] Last Admin: 07/07/21 13:10 Dose: 650 mg Documented by: Al Hydroxide/Mg Hydroxide (Magnesium Hydrox/Alum Hydrox 30 Ml Oral.Susp) 30 ml PO Q6H PRN PRN Reason: Heartburn/Nausea Atorvastatin Calcium (Atorvastatin Calcium 40 Mg Tablet) 40 mg PO BEDTIME [facility] Last Admin: 07/06/21 21:32 Dose: 40 mg Documented by: Duloxetine HCl (Duloxetine Hcl 60 Mg Capsule.) 60 mg PO DAILY [facility] Last Admin: 07/07/21 08:56 Dose: 60 mg Documented by: Fenofibrate (Fenofibrate 54 Mg Tablet) 54 mg PO DAILY [facility] Last Admin: 07/07/21 08:56 Dose: 54 mg Documented by: Gabapentin (Gabapentin 400 Mg Capsule) 800 mg PO TID [facility] Last Admin: 07/07/21 14:36 Dose: 800 mg Documented by: Hydroxyzine HCl (Hydroxyzine Hcl 25 Mg Tablet) 25 mg PO Q6H PRN PRN Reason: Anxiety Last Admin: 07/06/21 14:42 Dose: 25 mg Documented by: Lamotrigine (Lamotrigine 25 Mg Tablet) 25 mg PO BEDTIME [facility] Last Admin: 07/06/21 21:33 Dose: 25 mg Documented by: Magnesium Hydroxide (Milk Of Magnesia 30 Ml Oral.Susp) 30 ml PO DAILY PRN PRN Reason: Constipation Magnesium Oxide (Magnesium Oxide 400 Mg Tablet) 400 mg PO DAILY [facility] Last Admin: 07/07/21 08:56 Dose: 400 mg Documented by: Metformin HCl (Metformin Hcl Er 500 Mg Tab.Er.24h) 1,000 mg PO BID [facility] Last Admin: 07/07/21 08:56 Dose: 1,000 mg Documented by: Metoprolol Succinate (Metoprolol Succinate Er 25 Mg Tab.Er.24h) 25 mg PO BED TIME [facility]; Protocol Last Admin: 07/06/21 21:31 Dose: 25 mg Documented by: Omeprazole (Omeprazole 20 Mg Capsule.) 20 mg PO BID@0630,1630 [facility] Last Admin: 07/07/21 16:17 Dose: 20 mg Documented by: Quetiapine Fumarate (Quetiapine Fumarate 50 Mg Tablet) 50 mg PO Q6H PRN PRN Reason: agitation, anxiety Last Admin: 07/07/21 16:24 Dose: 50 mg Documented by: Quetiapine Fumarate (Quetiapine Fumarate 100 Mg Tablet) 100 mg PO BEDTIME [facility] Last Admin: 07/06/21 21:31 Dose: 100 mg Documented by: Sucralfate (Sucralfate 1 Gm Tablet) 1 gm PO QID [facility] Last Admin: 07/07/21 16:16 Dose: 1 gm Documented by: Trazodone HCl (Trazodone Hcl 50 Mg Tablet) 50 mg PO BEDTIME PRN PRN Reason: Insomnia Last Admin: 07/04/21 21:57 Dose: 50 mg Documented by: Allergies Allergies Allergy/AdvReac Type Severity Reaction Status Date / Time No Known Allergies Allergy Verified 05/31/21 11:24 Assessment & Plan Assessment & Plan (1) Cocaine use disorder: Status: Acute Code(s): F14.10 - Cocaine abuse, uncomplicated (2) MDD (major depressive disorder), recurrent episode, moderate: Status: Acute Code(s): F33.1 - Major depressive disorder, recurrent, moderate Plan Matthew is a 61 y.o. Male who carries a dx of MDD, recurrent and crack cocaine relapse. He presented to [facility] on 06/26/21 due to reporting depression, SI. Has chronic pain issues and ambulates in a wheelchair, hx of being on suboxone. He h as been non-adherent with psych meds for a couple days. No OP psych providers, did not follow up with referrals since recent discharge from . Pt is working with [employer] program. Hx of VNA. Plan: Will increase gabapentin to 800 mg TID to help with mood stability, pain. Discussed limitations of utilizing NSAIDs for joint pain due to hx of upper GI bleeds. CV Q15 min safety checks Monitor response to medications. Monitor for safety in the milieu. Discharge on stabilization. Patient seen. Chart reviewed. Discussed with team. Obtain collateral contact info?as needed 06/27/21 Continue current regime. Pt reports today noncompliance as an out pt. Will re- establish regime and re-evaluate 06/28/21 Trial of Lamictal 25 mg hs-mood, pain 06/29/21: No change to the above plan 06/30/21: No changes 07/01/21: Encourage increase in milieu participation Schedule Tylenol for improved pain mgt. Continues to report depressive symptoms-passive, intermittent SI, but does want to attend [facility] for treatment. 07/03/21: Continue current plan of care. 07/04/21: No changes to primary medication regimen, pt interested in IOP 07/06 stable; no changes to tx plan 07/07 stable; no changes to tx plan -sodium on the low side at 133 however review of labs shows that patient hovers around this value; denies excessive fluid intake I spent minutes with the patient and/or on the patient floor today, greater than?50% of which was spent counseling/coordinating care. Reason for contiued inpatient stay Substantial Risk for: stable for discharge
[2021-07-07 18:00] VITALS: BP 140/84; PULSE 89; RESP 16; TEMP 36.8; O2SAT 96
[2021-07-07] MEDS: Metoprolol Succinate ER 25 MG TAB.ER.24H PO (19:58)
[2021-07-07] MEDS: QUEtiapine Fumarate 100 MG TABLET PO (19:58)
[2021-07-07] MEDS: lamoTRIgine 25 MG TABLET PO (19:59)
[2021-07-07] MEDS: Atorvastatin Calcium 40 MG TABLET PO (19:59)
[2021-07-07 22:50] LABS: Glucose, Whole Blood 286 mg/dL (60-115)
[2021-07-08 06:00] VITALS: BP 128/62; PULSE 87; RESP 18; TEMP 36.6; O2SAT 96
[2021-07-08] MEDS: Omeprazole 20 MG CAPSULE.DR PO (07:13)
[2021-07-08] MEDS: Acetaminophen 325 MG TABLET 650 MG PO ×2 (07:27→12:52)
[2021-07-08] MEDS: QUEtiapine Fumarate 50 MG TABLET PO (07:27)
[2021-07-08 07:47] LABS: Glucose, Whole Blood 217 mg/dL (60-115)
[2021-07-08] MEDS: Magnesium Oxide 400 MG TABLET PO (08:20)
[2021-07-08] MEDS: Fenofibrate 54 MG TABLET PO (08:20)
[2021-07-08] MEDS: Gabapentin 400 MG CAPSULE 800 MG PO (08:20)
[2021-07-08] MEDS: Sucralfate 1 GM TABLET PO ×2 (08:20→12:52)
[2021-07-08] MEDS: DULoxetine HCl 60 MG CAPSULE.DR PO (08:20)
[2021-07-08] MEDS: metFORMIN HCl ER 500 MG TAB.ER.24H 1000 MG PO (08:20)
--- NOTE | 2021-07-08 11:15 | PM.PSYDC ---
DS: Providers Provider Date of Service: 07/08/21 Date of admission: 06/26/21 20:00 Date of discharge: 07/08/21 Primary care physician: Unknown Physician Admitting clinician: Praveena Falcon Attending physician on admission: Praveena Falcon Consults: 07/03/21 10:44 Addiction Medicine Routine Consulting Provider: Dina Jones Reason for consultation: Matthew would like to discuss a return to suboxone Has provider been notified: No Attending physician on discharge: Cely Miller Discharging clinician: Cely Miller DS: Diagnosis Discharge Diagnosis (1) Cocaine use disorder: Status: Acute (2) MDD (major depressive disorder), recurrent episode, moderate: Status: Acute DS: Medications Discharge Medications Home Medications: Home Medications Medication Instructions Recorded Confirmed atorvastatin 40 mg tablet 1 tab PO BEDTIME 06/26/21 06/26/21 duloxetine 60 mg capsule,delayed 60 mg PO QAM 06/26/21 06/26/21 release fenofibrate 54 mg tablet 54 mg PO QAM 06/26/21 06/26/21 magnesium oxide 400 mg (241.3 mg 400 mg PO QAM 06/26/21 06/26/21 magnesium) tablet metoprolol succinate 25 mg 25 mg PO BEDTIME 06/26/21 06/26/21 tablet,extended release 24 hr pantoprazole 20 mg tablet,delayed 20 mg PO BID 06/26/21 06/26/21 release Previous Rx's Medication Instructions Recorded blood-glucose meter #1 ea 03/26/21 gabapentin 300 mg capsule 600 mg PO TID #180 cap 06/06/21 metformin 500 mg tablet,extended 1,000 mg PO BID #120 tab 06/06/21 release 24 hr quetiapine 100 mg tablet 100 mg PO BEDTIME #30 tab 06/06/21 quetiapine 50 mg tablet 50 mg PO Q6H PRN #60 tab 06/06/21 sucralfate 1 gram tablet (Carafate) 1 g PO QID 30 Days #120 tab 06/06/21 trazodone 50 mg tablet 50 mg PO BEDTIME PRN #30 tab 06/06/21 Mental Status Exam Mental Status Exam Patient Appearance: Disheveled Patient Orientation: Person, Place, Time and Situation Level of Consciousness: Alert Patient Behavior: Talkative, Cooperative and Good Eye Contact Mood Description: Flat Affect Description: Flat Patient Cognition Impaired: No Ability to Follow Directions: Good Speech Pattern: Spontaneous Speech Memory Description: Episodic Impaired Hallucinations: None Delusions: Not Present Thought Process: Goal Oriented Thought Content: positive for Goal Oriented Depressive Symptoms: Thoughts of /Suicide (denies) Judgement: Good Data Data Completed and Pending Completed studies during hospitalization [Text1]: 07/01/21 07/02/21 07/02/21 21:32 06:33 20:38 Sodium Potassium Chloride Carbon Dioxide Anion Gap BUN Creatinine Estim Creat Clear Calc Estimated GFR POC Glucose 226 H 213 H 275 H Random Glucose Calcium 07/03/21 07/03/21 07/04/21 06:13 20:59 06:08 Sodium Potassium Chloride Carbon Dioxide Anion Gap BUN Creatinine Estim Creat Clear Calc Estimated GFR POC Glucose 230 H 260 H 222 H Random Glucose Calcium 07/04/21 07/04/21 07/05/21 08:10 19:40 19:43 Sodium 134 L Potassium 4.2 Chloride 100 Carbon Dioxide 25 Anion Gap 13 BUN 13 Creatinine 0.79 Estim Creat Clear Calc 105.2 Estimated GFR > 60 POC Glucose 278 H 267 H Random Glucose 206 H Calcium 9.1 D 07/06/21 07/06/21 07/07/21 06:41 21:01 06:09 Sodium Potassium Chloride Carbon Dioxide Anion Gap BUN Creatinine Estim Creat Clear Calc Estimated GFR POC Glucose 197 H 255 H 268 H Random Glucose Calcium 07/07/21 07/07/21 07/07/21 07:15 08:23 22:46 Sodium 133 L Potassium Chloride Carbon Dioxide Anion Gap BUN Creatinine Estim Creat Clear Calc Estimated GFR POC Glucose 228 H 286 H Random Glucose Calcium 07/08/21 07:43 Sodium Potassium Chloride Carbon Dioxide Anion Gap BUN Creatinine Estim Creat Clear Calc Estimated GFR POC Glucose 217 H Random Glucose Calcium DS: Summary Hospital Course Hospital Course: Admission to adult psychiatry to address symptoms of recurrent major depression, cocaine use disorder, polysubstance use and chronic pain. Care plan, medication regime and out patient plan of care prior to admission were reviewed. Education was provided regarding management of symptoms, medications and side effects. Nursing and social service worked with Matthew on care planning, education and discharge planning. Lamictal was initiated for mood and for assistance with pain mgt. Gabapentin was increased during this admission as well. Upon admission, pt asked to be sent to [facility]. As the admission progressed he changed his mind, wanting to work more with his new team at [facility] to find a more appropriate housing situation for himself with more supports. Time spent discussing smoking cessation with patient: 3 to 10 minutes Status at Discharge Functional status at discharge: wheelchair bound Overall status at discharge: patient is progressing back to baseline Time Spent with Patient Time attestation: Total time spent providing and/or coordinating discharge services:40 Time spent: Greater than 30 minutes Discharge Plan Discharge Patient Disposition: Home, Self-Care Discharge Diagnosis: Recurrent major depression Cocaine use disorder Polysubstance Abuse by history Diabetes Chronic Pain GERD Hypertension Hyperlipidemia Referrals: Psychiatric medication management: [facility] [Other] - 08/05/21 2:00 pm (This is a virtual Telehealth appointment. You will need a smartphone or computer to complete the appointment ) Visiting Nurse Agency (VNA): [facility] [employer] [Other] - 07/08/21 1:30 pm Community Crisis Stabilization (CSS): [facility] [Other] - 07/09/21 8:00 am (You have been added to the waitlist for CSS treatment at the [facility]. Please contact the program at the above number upon discharge to follow-up on our referral and check bed availability) KIM MUJICA [Other] - 1 Week (PCP OFFICE WILL CALL PT WITH APPOINTMENT FOR FOLLOW UP.) Discharge Medications: New lamotrigine 25 mg Tablet 25 mg PO BEDTIME Qty: 30 0RF gabapentin 800 mg tablet 800 mg PO TID Qty: 90 0RF Continued trazodone 50 mg Tablet 50 mg PO BEDTIME PRN (Reason: Insomnia) Qty: 30 0RF quetiapine 50 mg Tablet 50 mg PO Q6H PRN (Reason: agitation, anxiety) Qty: 60 0RF sucralfate [Carafate] 1 gram tablet 1 g PO QID 30 Days Qty: 120 0RF quetiapine 100 mg Tablet 100 mg PO BEDTIME Qty: 30 0RF metformin 500 mg Tablet Extended Release 24 Hr 1,000 mg PO BID Qty: 120 0RF fenofibrate 54 mg tablet 54 mg PO QAM 0RF duloxetine 60 mg capsule,delayed release(DR/EC) 60 mg PO QAM 0RF magnesium oxide 400 mg (241.3 mg magnesium) tablet 400 mg PO QAM 0RF metoprolol succinate 25 mg tablet extended release 24 hr 25 mg PO BEDTIME 0RF Protocol: Hold for SBP/HR < HOLD for SBP < : 90 HOLD for HR < : 60 atorvastatin 40 mg tablet 1 tab PO BEDTIME 0RF pantoprazole 20 mg Tablet,Delayed Release (Dr/Ec) 20 mg PO BID 0RF (DME) blood-glucose meter Kit See Rx Instructions .Route Qty: 1 0RF Rx Instructions: As directed Discontinued gabapentin 300 mg Capsule 600 mg PO TID Qty: 180 0RF Discharge Orders: Discharge Order (Routine); Ordered 07/08/21 Ordered By: Cely Miller Diet: advance to usual diet Activity on Discharge: As tolerated Stand Alone Forms: Patient Portal Discharge page, Community Support Care Plan Goals: Mood Stabilization Sobriety Health Concerns: Recurrent Major Depression Polysubstance Abuse, recently, cocaine Chronic Pain GERD Hypertension Hyperlipidemia Diabetes Plan of Treatment: Attend appointments as scheduled. You have reported you have just joined [facility], please follow your care managers instructions regarding appointments and care Take medications as directed Call/return as needed Crisis services [phone] Assessment: I am going to do well this time. Alert, non-psychotic, non-suicidal, prepared for discharge and pleased with his plan of care Discharge Date/Time: 07/08/21 13:16
== END 2021-07-08 13:16 | disposition home or self-care (01) | DRG 885 ==
LOC: HO.ED 20:10 → HO.PM5 20:19
PROVIDERS: Physician Assistant Medical; Registered Nurse; Admitting Provider Psychiatry & Neurology Psychiatry; Emergency Provider Emergency Medicine; Visit Provider Clinical Nurse Specialist Psychiatric/Mental Health, Adult
DX: F33.1 Major depressive disorder, recurrent, moderate (principal); R45.851 Suicidal ideations; Z20.822 Contact with and (suspected) exposure to COVID-19; Z91.14 Patient's other noncompliance with medication regimen; Z87.891 Personal history of nicotine dependence; Z79.84 Long term (current) use of oral hypoglycemic drugs; Z79.899 Other long term (current) drug therapy
CPT/HCPCS: 36415; 80048; 80053; 80061; 80307; 82077; 82607; 82746; 82947; 83036; 83735; 84295; 84439; 84443; 85025; 87635; 93005; 99285

== ENCOUNTER 2021-09-30 06:01 | Inpatient (IN) | payer OTHER, MEDICAID, SELFPAY ==
[2021-09-30] VITALS (7 sets, daily range): BP systolic 119–178; BP diastolic 66–92; PULSE 74–92; RESP 14–18; TEMP 35.7–36.7; O2SAT 93–98; BMI 26.6
--- NOTE | ~2021-09-30 | CT_ITS ---
EXAMINATION: CT HEAD WITHOUT CONTRAST (STROKE PROTOCOL) CLINICAL INFORMATION: Stroke protocol. COMPARISON: 04/25/2021 TECHNIQUE: Contiguous axial imaging was performed from the skull base to vertex without intravenous administration of contrast. This CT examination was performed using dose optimization techniques as appropriate, variously including the following: *Automated exposure control *Adjustment of mA and/or kV according to patient size (this includes techniques or standardized protocols for targeted exams where dose is matched to indication/reason for exam; i.e. extremities or head) *Use of iterative reconstruction technique DLP: 653 mGy-cm FINDINGS: There is no intracranial hemorrhage, hematoma, or extra-axial fluid collection. The ventricles are normal in size. There is no hydrocephalus, edema, or mass effect. The sabillon-white matter differentiation appears symmetric. There is no acute infarct or mass lesion. Stable chronic right parietal occipital infarct. The calvarium appears intact. There is no pneumocephalus or orbital emphysema. The visualized sinuses and middle ears and mastoid air cells show no significant mucosal thickening. There are no air-fluid levels. CT/CT head for stroke IMPRESSION: No acute intracranial pathology.
--- NOTE | 2021-09-30 06:32 | ED.PSYCH ---
HPI - Psych General Chief Complaint: Psychiatric Symptoms Stated Complaint: Ear pain Time Seen by Provider: 09/30/21 06:29 History of Present Illness HPI Narrative: Patient is 61 years old presents today with having thoughts of wanting to kill himself stabbed himself in the chest. Patient denies any recreational drug use. Has a previous history of polysubstance abuse. Denies any alcohol. Denies any fever chills coughing congestion upper respiratory symptoms. Previous infection to COVID-19. Positive history diabetes. Related Data Home Medications Medication Instructions Recorded Confirmed atorvastatin 40 mg tablet 1 tab PO BEDTIME 06/26/21 06/26/21 duloxetine 60 mg capsule,delayed 60 mg PO QAM 06/26/21 06/26/21 release fenofibrate 54 mg tablet 54 mg PO QAM 06/26/21 06/26/21 magnesium oxide 400 mg (241.3 mg 400 mg PO QAM 06/26/21 06/26/21 magnesium) tablet metoprolol succinate 25 mg 25 mg PO BEDTIME 06/26/21 06/26/21 tablet,extended release 24 hr pantoprazole 20 mg tablet,delayed 20 mg PO BID 06/26/21 06/26/21 release Previous Rx's Medication Instructions Recorded blood-glucose meter #1 ea 03/26/21 metformin 500 mg tablet,extended 1,000 mg PO BID #120 tab 06/06/21 release 24 hr quetiapine 100 mg tablet 100 mg PO BEDTIME #30 tab 06/06/21 quetiapine 50 mg tablet 50 mg PO Q6H PRN #60 tab 06/06/21 sucralfate 1 gram tablet (Carafate) 1 g PO QID 30 Days #120 tab 06/06/21 trazodone 50 mg tablet 50 mg PO BEDTIME PRN #30 tab 06/06/21 gabapentin 800 mg tablet 800 mg PO TID #90 tab 07/08/21 lamotrigine 25 mg tablet 25 mg PO BEDTIME #30 tab 07/08/21 Allergies Allergy/AdvReac Type Severity Reaction Status Date / Time No Known Allergies Allergy Verified 05/31/21 11:24 Review of Systems Review of Systems: No fever no chills no cough no congestion or upper respiratory symptoms Yes all other systems are reviewed and are negative PMFSH Past Medical History Attestation statement: The following information was validated with the patient. Medical History Acute blood loss anemia Cocaine use disorder, moderate, dependence Diabetes HTN (hypertension) MDD (major depressive disorder), recurrent episode, moderate Opioid use disorder, mild, in sustained remission Social History Social History Household Members: None Housing: Apartment Do you presently have visiting nurse or other home services: Yes Unable to assess alcohol history related to: Unknown Alcohol intake: current Alcohol intake frequency: does not drink Patient Tobacco Use Status: Former Tobacco user Quit Date: 06/26/2021 Tobacco use type: Cigarette Cigarette Packs Per Day: 2 Cigarettes Per Day: 40 e-Cigarette/Vaping Use: Never Used Second Hand Smoke Exposure: No Substance Use Type: Crack/Cocaine and Marijuana service: Yes Current occupational status: disabled Sexual orientation: Lesbian/Navarrete/Homosexual Physical Exam Vital Signs: Vital Signs: BMI result Body Mass Index 26.6 Appearance: Alert. Oriented X3. No acute distress. Eyes: Pupils equal, round and reactive to light. ENT: Pharynx normal. Neck: Normal inspection. Neck supple. No lymph nodes noted. No crepitus CVS: Normal heart rate and rhythm. Pulses normal. Normal S1 and S2 Respiratory: No respiratory distress. Breath sounds normal. No Wheezing. No rales Abdomen: Soft and nontender. No rigidity. No distention. good BS x4 Skin: Skin warm and dry. Normal skin color. Normal skin turgor. Extremities: No lower extremity edema. Neurovascular intact to all extremities. No Lacerations. No Rash Neuro: Oriented X 3. No motor deficit. No sensory deficit. Moving all extermities. No slurred speech MDM - Psych MDM Narrative Medical decision making narrative: Awaiting labs will get crisis to evaluate patient. Currently in stable condition. Discharge Plan Discharge Clinical Impression: Suicidal ideation Patient Disposition: Still a Patient Prescriptions: No Action trazodone 50 mg Tablet 50 mg PO BEDTIME PRN (Reason: Insomnia) Qty: 30 0RF quetiapine 50 mg Tablet 50 mg PO Q6H PRN (Reason: agitation, anxiety) Qty: 60 0RF sucralfate [Carafate] 1 gram tablet 1 g PO QID 30 Days Qty: 120 0RF quetiapine 100 mg Tablet 100 mg PO BEDTIME Qty: 30 0RF metformin 500 mg Tablet Extended Release 24 Hr 1,000 mg PO BID Qty: 120 0RF fenofibrate 54 mg tablet 54 mg PO QAM 0RF duloxetine 60 mg capsule,delayed release(DR/EC) 60 mg PO QAM 0RF magnesium oxide 400 mg (241.3 mg magnesium) tablet 400 mg PO QAM 0RF metoprolol succinate 25 mg tablet extended release 24 hr 25 mg PO BEDTIME 0RF Protocol: Hold for SBP/HR < HOLD for SBP < : 90 HOLD for HR < : 60 atorvastatin 40 mg tablet 1 tab PO BEDTIME 0RF pantoprazole 20 mg Tablet,Delayed Release (Dr/Ec) 20 mg PO BID 0RF lamotrigine 25 mg Tablet 25 mg PO BEDTIME Qty: 30 0RF gabapentin 800 mg tablet 800 mg PO TID Qty: 90 0RF (DME) blood-glucose meter Kit See Rx Instructions .Route Qty: 1 0RF Rx Instructions: As directed
[2021-09-30 08:14] LABS: MANUAL DIFF FLAG NO
[2021-09-30 08:16] LABS: Basophils Percent Auto 0.7 % (0-2); Eosinophils Absolute Auto 0.1 X10*3/uL (0.0-0.4); Hematocrit 39.2 % (42.0-52.0); Hemoglobin 12.7 g/dl (14.0-18.0); Imm Gran Abs Auto 0.03 X10*3/uL (0.00-0.03); Imm Gran Pct Auto 0.7 % (0.0-0.4); Lymphocytes Percent Auto 22.4 % (20-40); Mean Corpuscular HGB Conc 32.4 g/dl (31.0-36.0); Mean Corpuscular Hemoglobin 25.5 pg (27.0-33.0); Mean Corpuscular Volume 78.6 fL (80.0-98.0); Mean Platelet Volume 9.2 fL (9.4-12.4); Monocytes Absolute Auto 0.5 X10*3/uL (0.1-1.2); Monocytes Percent Auto 10.9 % (2-11); Neutrophils Absolute Auto 2.9 x10*3/uL (2.0-8.3); Neutrophils Percent Auto 63.3 % (45-73); Platelet Count 213 X10*3/uL (160-400); Red Blood Count 4.99 X10*6/uL (4.60-5.80); Red Cell Distribution Width 18.1 % (11.0-16.0); White Blood Count 4.6 X10*3/uL (4.8-10.8)
--- NOTE | 2021-09-30 08:17 | PC.NURSE ---
smart sheet done by this rn
[2021-09-30 08:31] LABS: Amphetamine Screen Urine Not Detected (Not Detect); Barbiturates, Urine Not Detected (Not Detect); Benzodiazepines Screen Urine Not Detected (Not Detect); Cannabinoid Screen Urine Not Detected (Not Detect); Cocaine Screen Urine POSITIVE (Not Detect); Fentanyl, urine Not Detected (Not Detect); Opiate Screen Urine Not Detected (Not Detect); Phencyclidine Screen Urine Not Detected (Not Detect)
[2021-09-30 08:33] LABS: COVID-19 Test Negative (Negative); Ethanol < 10 mg/dL; IDNOW Serial# 16C4AD1C
[2021-09-30 08:35] LABS: Acetaminophen LAB < 1 mcg/mL (<30)
[2021-09-30 08:39] LABS: Alanine Aminotransferase 48 U/L (0-40); Albumin Level 4.4 g/dL (3.5-5.0); Alkaline Phosphatase 72 U/L (39-117); Anion Gap 16 (12-20); Aspartate Amino Transferase 52 U/L (5-37); Bilirubin Total 0.4 mg/dL (0.0-1.0); Blood Urea Nitrogen 11 mg/dL (9-16); Calcium 9.5 mg/dL (8.4-10.2); Carbon Dioxide 23 mmol/L (22-29); Chloride 100 mmol/L (96-108); Creatinine Clr Calc Pharmacy 81.9; Estimated Glomerular Filt Rate > 60; Glucose Random 318 mg/dL (60-115); Potassium 3.9 mmol/L (3.3-5.1); Sodium 135 mmol/L (135-145); Total Protein 7.1 g/dL (6.5-8.0)
--- NOTE | 2021-09-30 10:56 | PHA.MEDREC ---
Pharmacy Consult ? Medication Reconciliation Pharmacy has completed the medication reconciliation. Patient confirmed all medications that were recently filled. Reports he no longer has a PRN quetiapine. Lexus Bean, PharmD
--- NOTE | 2021-09-30 16:26 | MHC.CARE ---
Kamila Neff from [facility], reports that accepting facility obtains authorization for inpt psychiatric admission. CARE Team faxed over pt's evaluation to [facility] [phone]. Kamila Johnson can be reached at [phone].
[2021-09-30] MEDS: DULoxetine HCl 60 MG CAPSULE.DR PO (17:38)
[2021-09-30] MEDS: Magnesium Oxide 400 MG TABLET PO (17:39)
--- NOTE | 2021-09-30 17:40 | PC.NURSE ---
Addendum entered by Octavio Malin 09/30/21 19:47: Pharmacy brought Lofibra. Pharmacy directed to give it when brought up. Addendum entered by Octavio Malin 09/30/21 19:27: Medication not given yet d/t waiting for pharmacy to bring medication up. Pharmacy called. Original Note: Lofibra not given due to not loaded in pyxis, pharmacy notified. Awaiting medication to get to floor.
[2021-09-30] MEDS: Fenofibrate 54 MG TABLET PO (19:42)
[2021-09-30] MEDS: Atorvastatin Calcium 40 MG TABLET PO (20:25)
[2021-09-30] MEDS: metFORMIN HCl ER 500 MG TAB.ER.24H 1000 MG PO (20:25)
[2021-09-30] MEDS: lamoTRIgine 25 MG TABLET PO (20:25)
[2021-09-30] MEDS: Metoprolol Succinate ER 25 MG TAB.ER.24H PO (20:25)
[2021-09-30] MEDS: QUEtiapine Fumarate 300 MG TABLET PO (20:25)
[2021-09-30] MEDS: traZODone HCL 50 MG TABLET PO (20:31)
--- NOTE | 2021-09-30 22:22 | ECG_ITS ---
Test Reason : PSYCH Blood Pressure : / mmHG Vent. Rate : 079 BPM Atrial Rate : 079 BPM P-R Int : 194 ms QRS Dur : 094 ms QT Int : 384 ms P-R-T Axes : 036 023 061 degrees QTc Int : 440 ms Normal sinus rhythm Normal ECG When compared with ECG of 26-JUN-2021 18:02, No significant change was found Referred By: Lily Mosqueda Electronically Signed By:GABRIELE CRUZ
[2021-10-01] VITALS: BP 146/84; PULSE 82; RESP 18; TEMP 36.4; O2SAT 94
--- NOTE | 2021-10-01 03:52 | PC.ADMIT ---
Patient is a 61-year-old , , male who presented to [facility] ED via EMS after he called police on himself for suicidal ideation with a plan. [place] Police department found patient at home with a knife, stating that he was going to stab himself in the chest. Patient is known to [facility] from previous [facility] admissions and outpatient therapies. Patient reports struggling with his mental health related to depression that he's been experiencing for the last few days related to the recent loss of friends and family members. Patient reports he doesn't feel like he can keep himself safe if he is discharged; he has a history of suicide attempts and gestures.? Patient reports not caring for himself. Patient reports crack cocaine use. Patient does not endorse AH/VH/HI. Patient has been neglecting his personal hygiene; clothes with patient belongings were damp and musty smelling.?Pt has a history of hypertension, diabetes, and chronic pain in bilateral lower extremities, arthritis in lower left leg, and bad knees . Patient reports non-medication compliance. Patient ambulates only with a wheelchair. Patient was calm, polite, and cooperative with admission interview. Patient stated he was tired and wanted to go to bed as soon as possible.?
[2021-10-01 06:00] VITALS: BP 140/70; PULSE 82; RESP 16; TEMP 36.8; O2SAT 95
[2021-10-01] MEDS: Omeprazole 20 MG CAPSULE.DR PO (06:52)
[2021-10-01 06:53] LABS: Glucose, Whole Blood 314 mg/dL (60-115)
[2021-10-01] MEDS: Fenofibrate 54 MG TABLET PO (08:57)
[2021-10-01] MEDS: Magnesium Oxide 400 MG TABLET PO (08:57)
[2021-10-01] MEDS: Gabapentin 400 MG CAPSULE 800 MG PO ×3 (08:57→20:23)
[2021-10-01] MEDS: metFORMIN HCl ER 500 MG TAB.ER.24H 1000 MG PO ×2 (08:57→20:23)
[2021-10-01] MEDS: DULoxetine HCl 60 MG CAPSULE.DR PO (08:57)
[2021-10-01] MEDS: hydrOXYzine HCL 25 MG TABLET PO (09:00)
--- NOTE | 2021-10-01 10:30 | HO.PSYCHPN ---
Subjective Subjective Date of Service: 10/01/21 Reason For Visit: SI Diagnostics Vital Signs (24Hr): Vital Signs - 24 hr 09/30/21 14:41 09/30/21 18:09 09/30/21 19:28 Temperature 96.2 F L 97.8 F Pulse Rate 86 84 74 Respiratory Rate 14 18 14 Blood Pressure 156/92 H 178/86 H 119/66 Pulse Oximetry 97 96 98 09/30/21 20:23 09/30/21 21:12 09/30/21 22:04 Temperature 96.8 F 97.4 F Pulse Rate 92 86 Respiratory Rate 16 16 Blood Pressure 177/86 H 131/80 140/81 H Pulse Oximetry 94 93 10/01/21 00:00 10/01/21 06:00 Temperature 97.6 F 98.2 F Pulse Rate 82 82 Respiratory Rate 18 16 Blood Pressure 146/84 H 140/70 H Pulse Oximetry 94 95 BMI result Body Mass Index 26.6 Labs Results: 09/30/21 08:10 09/30/21 08:10 Labs: Laboratory Results - last 48 hr 09/30/21 09/30/21 09/30/21 08:10 08:10 08:10 WBC 4.6 L RBC 4.99 Hgb 12.7 L Hct 39.2 L MCV 78.6 L MCH 25.5 L MCHC 32.4 RDW 18.1 H Plt Count 213 MPV 9.2 L Immature Gran % (Auto) 0.7 H Neut % (Auto) 63.3 Lymph % (Auto) 22.4 [place] % (Auto) 10.9 Eos % (Auto) 2.0 Baso % (Auto) 0.7 Lymph # (Auto) 1.0 L [place] # (Auto) 0.5 Eos # (Auto) 0.1 Baso # (Auto) 0.0 Abs Immat Gran (auto) 0.03 Absolute Neuts (auto) 2.9 Absolute Nucleated RBC 0.000 Nucleated RBC % (auto) 0.0 Sodium 135 Potassium 3.9 Chloride 100 Carbon Dioxide 23 Anion Gap 16 BUN 11 Creatinine 0.97 Estim Creat Clear Calc 81.9 Estimated GFR > 60 POC Glucose Random Glucose 318 H D Calcium 9.5 Total Bilirubin 0.4 AST 52 H ALT 48 H Alkaline Phosphatase 72 Total Protein 7.1 Albumin 4.4 Urine Opiates Screen Urine Fentanyl Screen Acetaminophen < 1 Ur Barbiturates Screen Ur Phencyclidine Scrn Ur Amphetamines Screen U Benzodiazepines Scrn Urine Cocaine Screen U Marijuana (THC) Screen Ethyl Alcohol COVID-19 (TANA) Negative COVID-19 Clin Com See Note 09/30/21 09/30/21 10/01/21 08:10 08:10 06:22 WBC RBC Hgb Hct MCV MCH MCHC RDW Plt Count MPV Immature Gran % (Auto) Neut % (Auto) Lymph % (Auto) [place] % (Auto) Eos % (Auto) Baso % (Auto) Lymph # (Auto) [place] # (Auto) Eos # (Auto) Baso # (Auto) Abs Immat Gran (auto) Absolute Neuts (auto) Absolute Nucleated RBC Nucleated RBC % (auto) Sodium Potassium Chloride Carbon Dioxide Anion Gap BUN Creatinine Estim Creat Clear Calc Estimated GFR POC Glucose 314 H Random Glucose Calcium Total Bilirubin AST ALT Alkaline Phosphatase Total Protein Albumin Urine Opiates Screen Not Detected Urine Fentanyl Screen Not Detected Acetaminophen Ur Barbiturates Screen Not Detected Ur Phencyclidine Scrn Not Detected Ur Amphetamines Screen Not Detected U Benzodiazepines Scrn Not Detected Urine Cocaine Screen POSITIVE H U Marijuana (THC) Screen Not Detected Ethyl Alcohol < 10 COVID-19 (TANA) COVID-19 Clin Com Medications Medications Current Medications Acetaminophen (Acetaminophen 325 Mg Tablet) 650 mg PO Q6H PRN PRN Reason: Headache/Pain Mild Scale (1-3) Al Hydroxide/Mg Hydroxide (Magnesium Hydrox/Alum Hydrox 30 Ml Oral.Susp) 30 ml PO Q6H PRN PRN Reason: Heartburn/Nausea Atorvastatin Calcium (Atorvastatin Calcium 40 Mg Tablet) 40 mg PO BEDTIME [facility] Last Admin: 09/30/21 20:25 Dose: 40 mg Documented by: Duloxetine HCl (Duloxetine Hcl 60 Mg Capsule.) 60 mg PO DAILY [facility] Last Admin: 10/01/21 08:57 Dose: 60 mg Documented by: Fenofibrate (Fenofibrate 54 Mg Tablet) 54 mg PO DAILY [facility] Last Admin: 10/01/21 08:57 Dose: 54 mg Documented by: Gabapentin (Gabapentin 400 Mg Capsule) 800 mg PO TID [facility] Last Admin: 10/01/21 08:57 Dose: 800 mg Documented by: Hydroxyzine HCl (Hydroxyzine Hcl 25 Mg Tablet) 25 mg PO Q6H PRN PRN Reason: Anxiety Last Admin: 10/01/21 09:00 Dose: 25 mg Documented by: Lamotrigine (Lamotrigine 25 Mg Tablet) 25 mg PO BEDTIME [facility] Last Admin: 09/30/21 20:25 Dose: 25 mg Documented by: Magnesium Hydroxide (Milk Of Magnesia 30 Ml Oral.Susp) 30 ml PO DAILY PRN PRN Reason: Constipation Magnesium Oxide (Magnesium Oxide 400 Mg Tablet) 400 mg PO DAILY [facility] Last Admin: 10/01/21 08:57 Dose: 400 mg Documented by: Metformin HCl (Metformin Hcl Er 500 Mg Tab.Er.24h) 1,000 mg PO BID [facility] Last Admin: 10/01/21 08:57 Dose: 1,000 mg Documented by: Metoprolol Succinate (Metoprolol Succinate Er 25 Mg Tab.Er.24h) 25 mg PO BEDTIME [facility]; Protocol Last Admin: 09/30/21 20:25 Dose: 25 mg Documented by: Nicotine Polacrilex (Nicotine Polacrilex 2 Mg Gum) 4 mg BUCCAL Q2H PRN PRN Reason: Nicotine Cravings Omeprazole (Omeprazole 20 Mg Capsule.Dr) 20 mg PO DAILY@0630 [facility] Last Admin: 10/01/21 06:52 Dose: 20 mg Documented by: Quetiapine Fumarate (Quetiapine Fumarate 300 Mg Tablet) 300 mg PO BEDTIME [facility] Last Admin: 09/30/21 20:25 Dose: 300 mg Documented by: Trazodone HCl (Trazodone Hcl 50 Mg Tablet) 50 mg PO BEDTIME PRN PRN Reason: Insomnia Last Admin: 09/30/21 20:31 Dose: 50 mg Documented by: Allergies Allergies Allergy/AdvReac Type Severity Reaction Status Date / Time No Known Allergies Allergy Verified 05/31/21 11:24 Assessment & Plan I spent minutes with the patient and/or on the patient floor today, greater than?50% of which was spent counseling/coordinating care.
--- NOTE | 2021-10-01 10:31 | P.HPPS_ITS ---
HPI Date of Service: 10/01/21 Chief Complaint: SI Sources of Information: patient interviewed, chart reviewed and crisis/core team assessment reviewed HPI Subjective Notes: Gomez Warning and Conditional Voluntary Narrative: Pt is a 61 yo Male with a history of MDD, chronic back and knee pain, ambulates in a wheelchair and long history of crack cocaine abuse who currently who presents for worsening depression and SI in the face of relapsing on crack cocaine And dealing with chronic pain. Patient reports that after he left last admission he Stayed sober for a couple weeks and also remained on his medication. He says that his chronic pain is so bothersome that it is depressing Which leads him to relapse. Patient relapsed with crack cocaine and has been using until this admission. He said that he was sitting in his house, depressed and felt like stabbing himself in the heart, so he called for help. Patient reports it is not currently suicidal but says it is getting very hard to manage with this much pain and he is worried he cannot keep going on like this. He agrees to increase Lamictal which he says he takes regularly And understands the risks/side effects of this medication; he also agrees to have another trial was Suboxone for pain management. Patient asked designer/writer to help navigate outpatient providers to help deal with his chronic back and knee problems. Pt is working with [facility] program. Hx of VNA. Patient says that although he has had thoughts to kill himself because of the pain, he does not want to but wants help dealing with this issue. Past Psychiatric History: -No current OP providers (hx of poor follow up) -Hx of IPLOC, last at [facility] in May 2021, Feb 2021. Hx of IPLOC at [facility] in [facility]. -Suicide attempts: none -Past medication trials: seroquel, cymbalta, gabapentin Medical Evaluation Reviewed: Yes [facility] Medical History Acute blood loss anemia Cocaine use disorder, moderate, dependence Diabetes HTN (hypertension) MDD (major depressive disorder), recurrent episode, moderate Opioid use disorder, mild, in sustained remission Family History: uncle- completed suicide Social History: -Pt for 30 years with male partner, now but states they are somewhat close. -No children. Served in . -Pt lives alone, waiting to get into the [facility] -He has limited social supports. Per chart, he had 6 siblings but all are except a brother in [place] who he does not talk to. Substance History: Patient reports decades long use of crack cocaine abuse Trauma History: denies Diagnostics Vital Signs (24Hr): Vital Signs - 24 hr 09/30/21 14:41 09/30/21 18:09 09/30/21 19:28 Temperature 96.2 F L 97.8 F Pulse Rate 86 84 74 Respiratory Rate 14 18 14 Blood Pressure 156/92 H 178/86 H 119/66 Pulse Oximetry 97 96 98 09/30/21 20:23 09/30/21 21:12 09/30/21 22:04 Temperature 96.8 F 97.4 F Pulse Rate 92 86 Respiratory Rate 16 16 Blood Pressure 177/86 H 131/80 140/81 H Pulse Oximetry 94 93 10/01/21 00:00 10/01/21 06:00 Temperature 97.6 F 98.2 F Pulse Rate 82 82 Respiratory Rate 18 16 Blood Pressure 146/84 H 140/70 H Pulse Oximetry 94 95 BMI result Body Mass Index 26.6 Labs Results: 09/30/21 08:10 09/30/21 08:10 Labs: Laboratory Results - last 48 hr 09/30/21 09/30/21 09/30/21 08:10 08:10 08:10 WBC 4.6 L RBC 4.99 Hgb 12.7 L Hct 39.2 L MCV 78.6 L MCH 25.5 L MCHC 32.4 RDW 18.1 H Plt Count 213 MPV 9.2 L Immature Gran % (Auto) 0.7 H Neut % (Auto) 63.3 Lymph % (Auto) 22.4 [place] % (Auto) 10.9 Eos % (Auto) 2.0 Baso % (Auto) 0.7 Lymph # (Auto) 1.0 L [place] # (Auto) 0.5 Eos # (Auto) 0.1 Baso # (Auto) 0.0 Abs Immat Gran (auto) 0.03 Absolute Neuts (auto) 2.9 Absolute Nucleated RBC 0.000 Nucleated RBC % (auto) 0.0 Sodium 135 Potassium 3.9 Chloride 100 Carbon Dioxide 23 Anion Gap 16 BUN 11 Creatinine 0.97 Estim Creat Clear Calc 81.9 Estimated GFR > 60 POC Glucose Random Glucose 318 H D Calcium 9.5 Total Bilirubin 0.4 AST 52 H ALT 48 H Alkaline Phosphatase 72 Total Protein 7.1 Albumin 4.4 Urine Opiates Screen Urine Fentanyl Screen Acetaminophen < 1 Ur Barbiturates Screen Ur Phencyclidine Scrn Ur Amphetamines Screen U Benzodiazepines Scrn Urine Cocaine Screen U Marijuana (THC) Screen Ethyl Alcohol COVID-19 ([facility]) Negative COVID-19 Clin Com See Note 09/30/21 09/30/21 10/01/21 08:10 08:10 06:22 WBC RBC Hgb Hct MCV MCH MCHC RDW Plt Count MPV Immature Gran % (Auto) Neut % (Auto) Lymph % (Auto) [place] % (Auto) Eos % (Auto) Baso % (Auto) Lymph # (Auto) [place] # (Auto) Eos # (Auto) Baso # (Auto) Abs Immat Gran (auto) Absolute Neuts (auto) Absolute Nucleated RBC Nucleated RBC % (auto) Sodium Potassium Chloride Carbon Dioxide Anion Gap BUN Creatinine Estim Creat Clear Calc Estimated GFR POC Glucose 314 H Random Glucose Calcium Total Bilirubin AST ALT Alkaline Phosphatase Total Protein Albumin Urine Opiates Screen Not Detected Urine Fentanyl Screen Not Detected Acetaminophen Ur Barbiturates Screen Not Detected Ur Phencyclidine Scrn Not Detected Ur Amphetamines Screen Not Detected U Benzodiazepines Scrn Not Detected Urine Cocaine Screen POSITIVE H U Marijuana (THC) Screen Not Detected Ethyl Alcohol < 10 COVID-19 (TANA) COVID-19 Clin Com Meds/Allergies Meds Home Medications Medication Instructions Recorded Confirmed Type atorvastatin 40 mg tablet 1 tab PO BEDTIME 06/26/21 09/30/21 History duloxetine 60 mg capsule,delayed 60 mg PO QAM 06/26/21 09/30/21 History release fenofibrate 54 mg tablet 54 mg PO QAM 06/26/21 09/30/21 History magnesium oxide 400 mg (241.3 mg 400 mg PO QAM 06/26/21 09/30/21 History magnesium) tablet metoprolol succinate 25 mg 25 mg PO BEDTIME 06/26/21 09/30/21 History tablet,extended release 24 hr pantoprazole 40 mg tablet,delayed 1 tab PO QAM 09/30/21 09/30/21 History release quetiapine 300 mg tablet 1 tab PO BEDTIME 09/30/21 09/30/21 History Allergies Allergies Allergy/AdvReac Type Severity Reaction Status Date / Time No Known Allergies Allergy Verified 05/31/21 11:24 Mental Status Exam Mental Status Exam Narrative: Pt is alert and oriented; behavior is cooperative, friendly and calm; patient is in emotional distress, tearful at times; dressed in casual attire with bald head, scruffy perez and marginal hygiene; mood is described as depressed and a ffect congruent, tearful at times; eye contact appropriate; Speech is hard to understand due to speech impediment; otherwise, normal rate, volume and prosody and not pressured; no psychomotor agitation/retardation present; thought process is goal directed; Thought content is on getting help w/ chronic pain, on tx; otherwise pertinent to relevant topics and without any delusional content, paranoid ideations or grandiosity; intermittent SI; no HI. There is no evidence of perceptual disturbance. Patients insight and judgment are impaired. Assessment & Plan Assessment & Plan (1) MDD (major depressive disorder), recurrent episode, moderate: Status: Acute Code(s): F33.1 - Major depressive disorder, recurrent, moderate (2) Cocaine use disorder: Status: Acute Code(s): F14.10 - Cocaine abuse, uncomplicated (3) Diabetes: Status: Acute Code(s): E11.9 - Type 2 diabetes mellitus without complications Plan Pt is a 61 yo Male with a history of MDD, chronic back and knee pain, ambulates in a wheelchair and long history of crack cocaine abuse who currently who presents for worsening depression and SI in the face of relapsing on crack cocaine And dealing with chronic pain. Patient reports that pain is a major trigger for him relapsing But also agrees that cocaine addiction keeps him from pursuing actual treatment for any of his issues. He agrees to trial of Suboxone to see if it can help with pain. He also asks for help with follow-up however minimizes his long history of poor adherence with medications and follow-up post discharges. Pt is working with [employer]. PLAN: CV 1:1 due to wheelchair Increase Lamictal to 50 mg; designer/writer reviewed risks/side effects including risk for Mitchell Chris's rash which patient understands and knows how to manage this medication Start Suboxone 4/1 mg for chronic pain continue home medications: atorvastatin 40 mg tablet PO BEDTIME duloxetine delayed [id number] mg PO QAM fenofibrate 54 mg PO QAM magnesium oxide 400 mgPO QAM metoprolol succinate XR 24/hour 25 mg PO BEDTIME Omeprazole 40mg (pantoprazole at home) quetiapine 300 mg PO BEDTIME Patient educated on: diagnosis, substance abuse and medical condition Informed Consent: understands Reason for continued inpatient stay Substantial Risk for: rapid decompensation
[2021-10-01] MEDS: Buprenorphine/Naloxone 4/1 mg FILM 1 FILM SUBLINGUAL (14:10)
[2021-10-01 20:21] LABS: Glucose, Whole Blood 344 mg/dL (60-115)
[2021-10-01] MEDS: lamoTRIgine 25 MG TABLET 50 MG PO (20:23)
[2021-10-01] MEDS: Atorvastatin Calcium 40 MG TABLET PO (20:23)
[2021-10-01] MEDS: QUEtiapine Fumarate 300 MG TABLET PO (20:23)
[2021-10-01] MEDS: Metoprolol Succinate ER 25 MG TAB.ER.24H PO (20:23)
[2021-10-01] MEDS: traZODone HCL 50 MG TABLET PO (20:29)
[2021-10-01 21:00] VITALS: BP 132/82; PULSE 77; TEMP 36.8; O2SAT 98
[2021-10-02 06:38] VITALS: BP 115/76; PULSE 76; RESP 14; TEMP 36.2; O2SAT 94
[2021-10-02 06:39] LABS: Glucose, Whole Blood 249 mg/dL (60-115)
[2021-10-02] MEDS: Magnesium Oxide 400 MG TABLET PO (08:57)
[2021-10-02] MEDS: hydrOXYzine HCL 25 MG TABLET PO (08:57)
[2021-10-02] MEDS: Fenofibrate 54 MG TABLET PO (08:57)
[2021-10-02] MEDS: Omeprazole 20 MG CAPSULE.DR PO (08:57)
[2021-10-02] MEDS: metFORMIN HCl ER 500 MG TAB.ER.24H 1000 MG PO ×2 (08:57→20:59)
[2021-10-02] MEDS: DULoxetine HCl 60 MG CAPSULE.DR PO (08:58)
[2021-10-02] MEDS: Gabapentin 400 MG CAPSULE 800 MG PO ×3 (08:58→21:00)
--- NOTE | 2021-10-02 10:23 | HO.PSYCHPN ---
Subjective Subjective Date of Service: 10/02/21 Reason For Visit: SI Interim History: Patient tearful, still feels suicidal. Patient talks about challenges of being disabled. He does have services that will come in and help him clean and take care of things however he says he does not really trust people and does not like people coming into the house. Patient does accept that is chronic, frequent severe substance abuse interferes with making any headway on his issues from orthopedic consult to therapy. He also says that he knows after few days on the unit, his mood seems to improve and occurred medication regimen helps. Patient said that the Suboxone 4/1 mg help take the edge off his pain and would like to continue having this available as a p.r.n. Mental Status Exam Mental Status Exam Narrative: Pt is alert and oriented; behavior is cooperative; patient is in emotional distress, tearful at times; dressed in casual attire with bald head, scruffy perez and marginal hygiene; mood is described as depressed and affect congruent, tearful at times; eye contact appropriate; Speech is hard to understand due to speech impediment; otherwise, normal rate, volume and prosody and not pressured; no psychomotor agitation/retardation present; thought process is goal directed; Thought content is on getting help w/ chronic pain, on tx; otherwise pertinent to relevant topics and without any delusional content, paranoid ideations or grandiosity; intermittent SI; no HI. There is no evidence of perceptual disturbance. Patients insight and judgment are impaired. Diagnostics Vital Signs (24Hr): Vital Signs - 24 hr 10/01/21 21:00 10/02/21 06:38 Temperature 98.2 F 97.1 F Pulse Rate 77 76 Respiratory Rate 14 Blood Pressure 132/82 115/76 Pulse Oximetry 98 94 Oxygen Delivery Method Room Air Room Air BMI result Body Mass Index 26.6 Labs Results: 09/30/21 08:10 09/30/21 08:10 Labs: Laboratory Results - last 48 hr 10/01/21 10/01/21 10/02/21 06:22 20:17 06:30 POC Glucose 314 H 344 H 249 H Medications Medications Current Medications Acetaminophen (Acetaminophen 325 Mg Tablet) 650 mg PO Q6H PRN PRN Reason: Headache/Pain Mild Scale (1-3) Al Hydroxide/Mg Hydroxide (Magnesium Hydrox/Alum Hydrox 30 Ml Oral.Susp) 30 ml PO Q6H PRN PRN Reason: Heartburn/Nausea Atorvastatin Calcium (Atorvastatin Calcium 40 Mg Tablet) 40 mg PO BEDTIME [facility] Last Admin: 10/01/21 20:23 Dose: 40 mg Duloxetine HCl (Duloxetine Hcl 60 Mg Capsule.) 60 mg PO DAILY [facility] Last Admin: 10/02/21 08:58 Dose: 60 mg Fenofibrate (Fenofibrate 54 Mg Tablet) 54 mg PO DAILY [facility] Last Admin: 10/02/21 08:57 Dose: 54 mg Gabapentin (Gabapentin 400 Mg Capsule) 800 mg PO TID [facility] Last Admin: 10/02/21 08:58 Dose: 800 mg Hydroxyzine HCl (Hydroxyzine Hcl 25 Mg Tablet) 25 mg PO Q6H PRN PRN Reason: Anxiety Last Admin: 10/02/21 08:57 Dose: 25 mg Lamotrigine (Lamotrigine 25 Mg Tablet) 50 mg PO BEDTIME [facility] Last Admin: 10/01/21 20:23 Dose: 50 mg Magnesium Hydroxide (Milk Of Magnesia 30 Ml Oral.Susp) 30 ml PO DAILY PRN PRN Reason: Constipation Magnesium Oxide (Magnesium Oxide 400 Mg Tablet) 400 mg PO DAILY [facility] Last Admin: 10/02/21 08:57 Dose: 400 mg Metformin HCl (Metformin Hcl Er 500 Mg Tab.Er.24h) 1,000 mg PO BID [facility] Last Admin: 10/02/21 08:57 Dose: 1,000 mg Metoprolol Succinate (Metoprolol Succinate Er 25 Mg Tab.Er.24h) 25 mg PO BEDTIME [facility]; Protocol Last Admin: 10/01/21 20:23 Dose: 25 mg Nicotine Polacrilex (Nicotine Polacrilex 2 Mg Gum) 4 mg BUCCAL Q2H PRN PRN Reason: Nicotine Cravings Omeprazole (Omeprazole 20 Mg Capsule.Dr) 20 mg PO DAILY@0630 [facility] Last Admin: 10/02/21 08:57 Dose: 20 mg Quetiapine Fumarate (Quetiapine Fumarate 300 Mg Tablet) 300 mg PO BEDTIME [facility] Last Admin: 10/01/21 20:23 Dose: 300 mg Trazodone HCl (Trazodone Hcl 50 Mg Tablet) 50 mg PO BEDTIME PRN PRN Reason: Insomnia Last Admin: 10/01/21 20:29 Dose: 50 mg Allergies Allergies Allergy/AdvReac Type Severity Reaction Status Date / Time No Known Allergies Allergy Verified 05/31/21 11:24 Assessment & Plan Assessment & Plan (1) MDD (major depressive disorder), recurrent episode, moderate: Status: Acute Code(s): F33.1 - Major depressive disorder, recurrent, moderate (2) Cocaine use disorder: Status: Acute Code(s): F14.10 - Cocaine abuse, uncomplicated (3) Diabetes: Status: Acute Code(s): E11.9 - Type 2 diabetes mellitus without complications Plan Pt is a 61 yo Male with a history of MDD, chronic back and knee pain, ambulates in a wheelchair and long history of crack cocaine abuse who currently who presents for worsening depression and SI in the face of relapsing on crack cocaine And dealing with chronic pain. Patient reports that pain is a major trigger for him relapsing But also agrees that cocaine addiction keeps him from pursuing actual treatment for any of his issues. He agrees to trial of Suboxone to see if it can help with pain. He also asks for help with follow-up however minimizes his long history of poor adherence with medications and follow-up post discharges. Pt is working with [employer]. 10/02 tearful, depressed with SI; started to Suboxone p.r.n. for pain. Patient agrees that he typically stabilizes on current medication regimen so will not change anything other than increasing Lamictal PLAN: CV 1:1 due to wheelchair Increase Lamictal to 50 mg; residential mortgage underwriter reviewed risks/side effects including risk for Mitchell Chris's rash which patient understands and knows how to manage this medication Start Suboxone 4/1 mg q4h PRN (max does of 3 per day) for chronic pain atorvastatin 40 mg tablet PO BEDTIME duloxetine delayed release 60 mg PO QAM fenofibrate 54 mg PO QAM magnesium oxide 400 mgPO QAM metoprolol succinate XR 24/hour 25 mg PO BEDTIME Omeprazole 40mg (pantoprazole at home) quetiapine 300 mg PO BEDTIME I spent minutes with the patient and/or on the patient floor today, greater than?50% of which was spent counseling/coordinating care. Patient educated on: diagnosis, medication risk/benefits, substance abuse and medical condition Informed Consent: understands Reason for contiued inpatient stay Substantial Risk for: harm to self and rapid decompensation
[2021-10-02] MEDS: Buprenorphine/Naloxone 4/1 mg FILM 1 FILM SUBLINGUAL ×2 (15:04→19:11)
[2021-10-02 18:00] VITALS: BP 163/80; PULSE 95; TEMP 36.6; O2SAT 92
[2021-10-02 20:56] LABS: Glucose, Whole Blood 208 mg/dL (60-115)
[2021-10-02] MEDS: Metoprolol Succinate ER 25 MG TAB.ER.24H PO (20:59)
[2021-10-02] MEDS: traZODone HCL 50 MG TABLET PO (21:00)
[2021-10-02] MEDS: Atorvastatin Calcium 40 MG TABLET PO (21:00)
[2021-10-02] MEDS: QUEtiapine Fumarate 300 MG TABLET PO (21:00)
[2021-10-02] MEDS: lamoTRIgine 25 MG TABLET 50 MG PO (21:00)
[2021-10-03] MEDS: Omeprazole 20 MG CAPSULE.DR PO (06:25)
[2021-10-03] MEDS: Buprenorphine/Naloxone 4/1 mg FILM 1 FILM SUBLINGUAL ×4 (06:25→21:46)
[2021-10-03 06:34] LABS: Glucose, Whole Blood 226 mg/dL (60-115)
[2021-10-03 06:41] VITALS: BP 153/85; PULSE 94; RESP 16; TEMP 36.7; O2SAT 91
[2021-10-03] MEDS: Gabapentin 400 MG CAPSULE 800 MG PO ×3 (08:34→21:48)
[2021-10-03] MEDS: Fenofibrate 54 MG TABLET PO (08:34)
[2021-10-03] MEDS: Magnesium Oxide 400 MG TABLET PO (08:34)
[2021-10-03] MEDS: metFORMIN HCl ER 500 MG TAB.ER.24H 1000 MG PO ×2 (08:34→21:46)
[2021-10-03] MEDS: hydrOXYzine HCL 25 MG TABLET PO (08:34)
[2021-10-03] MEDS: DULoxetine HCl 60 MG CAPSULE.DR PO (08:40)
--- NOTE | 2021-10-03 15:41 | HO.PSYCHPN ---
Subjective Subjective Date of Service: 10/03/21 Reason For Visit: SI Interim History: Late entry note for patient seen on 10/03 [facility] Former saw patient together with psych social worker. Patient remained tearful and talking about feeling suicidal, saying he cannot take it anymore, regarding chronic pain and not being able to walk. Patient agreed that he is contradicting himself when saying he wants help and is frustrated that he can clean his apartment however does not want already assigned caretakers to come in and help. [place] Former and psych social worker talked about again focusing on his addiction issues and cocaine abuse given that it constantly interrupts any other treatment. To that end psych social worker again encourage patient to attend a CSS/substance abuse program. Patient said he is open to this but also had a list of reasons why he did not want to go, saying that he does not like groups and that managing in a wheelchair Will frustrate him and depressed him further. Patient said he does not want to and he wants to be alive but he wants help. He asked about going to a retirement saying he can not manage on his own anymore; physician underwriter brought up again the topic that patient will need to allow people to help him which is really no different than allowing people to come into his apartment to help him to which patient agreed. Regarding medications, patient has typically stabilized on current medication regimen. However he agrees to adding Seroquel 25 mg in the morning to see if this helps take the edge off some of his anxiety. He also would like Suboxone increased to max doses of 4 times a day to which physician underwriter agreed. Lamictal still being titrated Mental Status Exam Mental Status Exam Narrative: Pt is alert and oriented; behavior is cooperative; patient is in emotional distress, tearful at times; dressed in casual attire with bald head, scruffy perez and marginal hygiene; mood is described as depressed and affect congruent, tearful at times; eye contact appropriate; Speech is hard to understand due to speech impediment; otherwise, normal rate, volume and prosody and not pressured; no psychomotor agitation/retardation present; thought process is goal directed; Thought content is on getting help w/ chronic pain, on tx; otherwise pertinent to relevant topics and without any delusional content, paranoid ideations or grandiosity; intermittent SI; no HI. There is no evidence of perceptual disturbance. Patients insight and judgment are impaired. Diagnostics Vital Signs (24Hr): Vital Signs - 24 hr 10/03/21 21:40 10/04/21 05:09 10/04/21 05:28 Temperature 98.9 F 98.7 F Pulse Rate 95 93 102 H Respiratory Rate 18 20 Blood Pressure 151/74 H 140/78 H 142/98 H Pulse Oximetry 91 L 96 Oxygen Delivery Method Room Air Room Air 10/04/21 07:08 10/04/21 08:50 10/04/21 09:20 Temperature 98.3 F 98.3 F Pulse Rate 84 79 81 Respiratory Rate 12 14 Blood Pressure 125/74 103/70 156/68 H Pulse Oximetry 92 93 96 Oxygen Delivery Method Room Air Room Air Room Air BMI result Body Mass Index 26.6 Labs Results: 10/04/21 10:32 10/04/21 10:32 Labs: Laboratory Results - last 48 hr 10/02/21 10/03/21 10/03/21 20:51 06:28 22:17 WBC RBC Hgb Hct MCV MCH MCHC RDW Plt Count MPV Immature Gran % (Auto) Neut % (Auto) Lymph % (Auto) [place] % (Auto) Eos % (Auto) Baso % (Auto) Lymph # (Auto) [facility] # (Auto) Eos # (Auto) Baso # (Auto) Abs Immat Gran (auto) Absolute Neuts (auto) Absolute Nucleated RBC Nucleated RBC % (auto) Sodium Potassium Chloride Carbon Dioxide Anion Gap BUN Creatinine Estim Creat Clear Calc Estimated GFR POC Glucose 208 H 226 H 267 H Random Glucose Calcium Total Bilirubin AST ALT Alkaline Phosphatase Ammonia Total Protein Albumin 10/04/21 10/04/21 10/04/21 04:27 06:55 08:56 WBC RBC Hgb Hct MCV MCH MCHC RDW Plt Count MPV Immature Gran % (Auto) Neut % (Auto) Lymph % (Auto) [facility] % (Auto) Eos % (Auto) Baso % (Auto) Lymph # (Auto) [facility] # (Auto) Eos # (Auto) Baso # (Auto) Abs Immat Gran (auto) Absolute Neuts (auto) Absolute Nucleated RBC Nucleated RBC % (auto) Sodium Potassium Chloride Carbon Dioxide Anion Gap BUN Creatinine Estim Creat Clear Calc Estimated GFR POC Glucose 271 H 261 H 260 H Random Glucose Calcium Total Bilirubin AST ALT Alkaline Phosphatase Ammonia Total Protein Albumin 06/02/1510/04/21 10/04/21 09:47 10:32 10:32 WBC 6.4 RBC 4.24 L Hgb 11.1 L Hct 34.0 L MCV 80.2 MCH 26.2 L MCHC 32.6 RDW 17.2 H Plt Count 158 L D MPV 10.1 Immature Gran % (Auto) 1.3 H Neut % (Auto) 67.5 Lymph % (Auto) 17.[address] [place] % (Auto) 12.4 H Eos % (Auto) 1.3 Baso % (Auto) 0.5 Lymph # (Auto) 1.[address] [place] # (Auto) 0.8 Eos # (Auto) 0.1 Baso # (Auto) 0.0 Abs Immat Gran (auto) 0.08 H Absolute Neuts (auto) 4.3 Absolute Nucleated RBC 0.000 Nucleated RBC % (auto) 0.0 Sodium 132 L Potassium 4.3 Chloride 96 Carbon Dioxide 26 Anion Gap 14 BUN 11 Creatinine 0.83 Estim Creat Clear Calc 95.8 Estimated GFR > 60 POC Glucose 236 H Random Glucose 250 H Calcium 8.7 D Total Bilirubin 0.6 AST 40 H ALT 57 H Alkaline Phosphatase 71 Ammonia Total Protein 6.3 L Albumin 4.0 10/04/21 10:32 WBC RBC Hgb Hct MCV MCH MCHC RDW Plt Count MPV Immature Gran % (Auto) Neut % (Auto) Lymph % (Auto) [facility] % (Auto) Eos % (Auto) Baso % (Auto) Lymph # (Auto) [facility] # (Auto) Eos # (Auto) Baso # (Auto) Abs Immat Gran (auto) Absolute Neuts (auto) Absolute Nucleated RBC Nucleated RBC % (auto) Sodium Potassium Chloride Carbon Dioxide Anion Gap BUN Creatinine Estim Creat Clear Calc Estimated GFR POC Glucose Random Glucose Calcium Total Bilirubin AST ALT Alkaline Phosphatase Ammonia 36 Total Protein Albumin Imaging Radiology Impressions: ITS Impressions Head CT 10/04/21 05:36 IMPRESSION: No acute intracranial pathology. Medications Medications Current Medications Acetaminophen (Acetaminophen 325 Mg Tablet) 650 mg PO Q6H PRN PRN Reason: Headache/Pain Mild Scale (1-3) Al Hydroxide/Mg Hydroxide (Magnesium Hydrox/Alum Hydrox 30 Ml Oral.Susp) 30 ml PO Q6H PRN PRN Reason: Heartburn/Nausea Atorvastatin Calcium (Atorvastatin Calcium 40 Mg Tablet) 40 mg PO BEDTIME [facility]ARA Last Admin: 10/03/21 21:46 Dose: 40 mg Buprenorphine/Naloxone (Buprenorphine/Naloxone 4/1 Mg Film) 1 film SUBLINGUAL Q4H PRN PRN Reason: mod to severe pain Last Admin: 10/03/21 21:46 Dose: 1 film Duloxetine HCl (Duloxetine Hcl 60 Mg Capsule.Dr) 60 mg PO DAILY [facility] Last Admin: 10/04/21 08:57 Dose: 60 mg Fenofibrate (Fenofibrate 54 Mg Tablet) 54 mg PO DAILY [facility] Last Admin: 10/04/21 08:57 Dose: 54 mg Gabapentin (Gabapentin 400 Mg Capsule) 800 mg PO TID [facility] Last Admin: 10/04/21 08:57 Dose: 800 mg Hydroxyzine HCl (Hydroxyzine Hcl 25 Mg Tablet) 25 mg PO Q6H PRN PRN Reason: Anxiety Last Admin: 10/03/21 08:34 Dose: 25 mg Lamotrigine (Lamotrigine 25 Mg Tablet) 50 mg PO BEDTIME [facility] Last Admin: 10/03/21 21:47 Dose: 50 mg Magnesium Hydroxide (Milk Of Magnesia 30 Ml Oral.Susp) 30 ml PO DAILY PRN PRN Reason: Constipation Magnesium Oxide (Magnesium Oxide 400 Mg Tablet) 400 mg PO DAILY [facility] Last Admin: 10/04/21 08:57 Dose: 400 mg Metformin HCl (Metformin Hcl Er 500 Mg Tab.Er.24h) 1,000 mg PO BID [facility] Last Admin: 10/04/21 08:57 Dose: 1,000 mg Metoprolol Succinate (Metoprolol Succinate Er 25 Mg Tab.Er.24h) 25 mg PO BEDTIME [facility]; Protocol Last Admin: 10/03/21 21:47 Dose: 25 mg Nicotine Polacrilex (Nicotine Polacrilex 2 Mg Gum) 4 mg BUCCAL Q2H PRN PRN Reason: Nicotine Cravings Omeprazole (Omeprazole 20 Mg Capsule.Dr) 20 mg PO DAILY@0630 [facility] Last Admin: 10/04/21 06:27 Dose: 20 mg Quetiapine Fumarate (Quetiapine Fumarate 300 Mg Tablet) 300 mg PO BEDTIME [facility] Last Admin: 10/03/21 21:46 Dose: 300 mg Quetiapine Fumarate (Quetiapine Fumarate 25 Mg Tablet) 25 mg PO DAILY [facility] Last Admin: 10/04/21 08:57 Dose: 25 mg Trazodone HCl (Trazodone Hcl 50 Mg Tablet) 50 mg PO BEDTIME PRN PRN Reason: Insomnia Last Admin: 10/02/21 21:00 Dose: 50 mg Allergies Allergies Allergy/AdvReac Type Severity Reaction Status Date / Time No Known Allergies Allergy Verified 05/31/21 11:24 Assessment & Plan Assessment & Plan (1) MDD (major depressive disorder), recurrent episode, moderate: Status: Acute Code(s): F33.1 - Major depressive disorder, recurrent, moderate (2) Cocaine use disorder: Status: Acute Code(s): F14.10 - Cocaine abuse, uncomplicated (3) Chronic pain syndrome: Status: Acute Code(s): G89.4 - Chronic pain syndrome (4) Diabetes: Status: Acute Code(s): E11.9 - Type 2 diabetes mellitus without complications Plan Pt is a 61 yo Male with a history of MDD, chronic back and knee pain, ambulates in a wheelchair and long history of crack cocaine abuse who currently who presents for worsening depression and SI in the face of relapsing on crack cocaine And dealing with chronic pain. Patient reports that pain is a major trigger for him relapsing But also agrees that cocaine addiction keeps him from pursuing actual treatment for any of his issues. He agrees to trial of Suboxone to see if it can help with pain. He also asks for help with follow-up however minimizes his long history of poor adherence with medications and follow-up post discharges. Pt is working with [email or web address]. 10/02 tearful, depressed with SI; started to Suboxone p.r.n. for pain. Patient agrees that he typically stabilizes on current medication regimen so will not change anything other than increasing Lamictal 10/03 remains tearful, depressed and talking about suicide. Most of his Angst is focused on his physical disability and the challenges of it. Patient acknowledges that he both asks for help and refuses the help to which he says i'm f-kd in the head doc... Increasing Suboxone frequency to 4 times a day; adding Seroquel 25 mg daily to see if it can take the edge off emotional Angst. PLAN: CV 1:1 due to wheelchair SW application to CSS/substance abuse programs Start Seroquel 25mg daily titrating Lamictal to 50 mg; physician underwriter reviewed risks/side effects including risk for Mitchell Chris's rash which patient understands and knows how to manage this medication increase total daily allotment of Suboxone 4/1 mg q4h PRN (max does of 4 per day) for chronic pain atorvastatin 40 mg tablet PO BEDTIME duloxetine delayed release 60 mg PO QAM fenofibrate 54 mg PO QAM magnesium oxide 400 mgPO QAM metoprolol succinate XR 24/hour 25 mg PO BEDTIME Omeprazole 40mg (pantoprazole at home) quetiapine 300 mg PO BEDTIME I spent minutes with the patient and/or on the patient floor today, greater than?50% of which was spent counseling/coordinating care. Patient educated on: diagnosis, medication risk/benefits, substance abuse and medical condition Informed Consent: understands Reason for contiued inpatient stay Substantial Risk for: harm to self and rapid decompensation
[2021-10-03] MEDS: QUEtiapine Fumarate 25 MG TABLET PO (16:19)
[2021-10-03 21:40] VITALS: BP 151/74; PULSE 95; TEMP 37.2
[2021-10-03] MEDS: QUEtiapine Fumarate 300 MG TABLET PO (21:46)
[2021-10-03] MEDS: Atorvastatin Calcium 40 MG TABLET PO (21:46)
[2021-10-03] MEDS: lamoTRIgine 25 MG TABLET 50 MG PO (21:47)
[2021-10-03] MEDS: Metoprolol Succinate ER 25 MG TAB.ER.24H PO (21:47)
[2021-10-03 22:22] LABS: Glucose, Whole Blood 267 mg/dL (60-115)
--- NOTE | 2021-10-04 | EEG_ITS ---
This is a 16-channel EEG with an EKG lead. The patient is reported awake and drowsy during the tracing. Background EEG rhythm is low to medium amplitude, mixed theta, beta with no obvious asymmetry or paroxysmal tendency. Photic stimulation does not produce any significant driving. Hyperventilation is not performed. Cardiac lead does not reveal any significant abnormality. IMPRESSION: Mild slowing with no evidence of seizure disorder. MD GUMARO Nielsen/JUSTIN / [phone]
--- NOTE | 2021-10-04 05:03 | PM.EVENT ---
Event Note Date of Service: 10/04/21 Event Note: Rapid response note: DIANETIC COUNSELOR was called in around 4:50AM by the patient's RN mentioned that patient has acute change in his mental status as well as speech is slowed. I went and examined the patient. Patient appears to be staring onto the roof; Neurological exam was grossly nonfocal except for speech was slightly slurred as confirmed with the patient's nurse mentions that his speech is different at baseline. Will obtain CT head Neurology consult Swallow screen Around 5:05AM RN reported that patient is completely back to his baseline. Given aspirin
--- NOTE | 2021-10-04 05:05 | PC.NURSE ---
RAPID RESPONSE CALLED AT APPROXIMATELY 0430 DUE TO MENTAL STATUS CHANGES. PT WAS DISORIENTED TO TIME AND PLACE. HE HAD INCREASED SLURRED SPEECH. PT WAS STARING INEXPRESSIVELY AT THE CEILING AND WAS NOT RESPONDING BY NAME TO RN. PT WAS EVALUATED BY MD.VITAL SIGNS STABLE. CT SCAN AND SWALLOW EVAL ORDERED. PT APPEARS TO BE RETURNING TO BASELINE.
[2021-10-04 05:09] VITALS: BP 140/78; PULSE 93; RESP 18; O2SAT 91
[2021-10-04 05:14] LABS: Glucose, Whole Blood 271 mg/dL (60-115)
[2021-10-04 05:28] VITALS: BP 142/98; PULSE 102; RESP 20; TEMP 37.1; O2SAT 96
[2021-10-04] MEDS: Aspirin Enteric Coated 81 MG TABLET.DR PO (06:27)
[2021-10-04] MEDS: Omeprazole 20 MG CAPSULE.DR PO (06:27)
[2021-10-04 07:00] LABS: Glucose, Whole Blood 261 mg/dL (60-115)
[2021-10-04 07:08] VITALS: BP 125/74; PULSE 84; RESP 12; TEMP 36.8; O2SAT 92
[2021-10-04 08:50] VITALS: BP 103/70; PULSE 79; RESP 14; TEMP 36.8; O2SAT 93
[2021-10-04] MEDS: Magnesium Oxide 400 MG TABLET PO (08:57)
[2021-10-04] MEDS: Fenofibrate 54 MG TABLET PO (08:57)
[2021-10-04] MEDS: metFORMIN HCl ER 500 MG TAB.ER.24H 1000 MG PO ×2 (08:57→21:44)
[2021-10-04] MEDS: Gabapentin 400 MG CAPSULE 800 MG PO ×3 (08:57→21:43)
[2021-10-04] MEDS: QUEtiapine Fumarate 25 MG TABLET PO (08:57)
[2021-10-04] MEDS: DULoxetine HCl 60 MG CAPSULE.DR PO (08:57)
[2021-10-04 09:20] VITALS: BP 156/68; PULSE 81; O2SAT 96
[2021-10-04 09:33] LABS: Glucose, Whole Blood 260 mg/dL (60-115)
--- NOTE | 2021-10-04 09:45 | P.EN_ITS ---
Event Note Date of Service: 10/04/21
--- NOTE | 2021-10-04 09:45 | PM.EVENT ---
Event Note Date of Service: 10/04/21
[2021-10-04 09:52] LABS: Glucose, Whole Blood 236 mg/dL (60-115)
--- NOTE | 2021-10-04 10:35 | MHC.SLORD ---
Speech Language Pathology Order Status: Bedside Swallow Assessment ordered yesterday PM when MD suspected sudden onset of CVA and activated rapid response team. CT negative for any acute process, currently no indication of CVA, nursing reporting that PT is back to baseline, passed nursing swallow screen, ate regular breakfast with no difficulties. Bedside Swallow assessment not indicated at this time, will D/C order. Please re-order if status changes.
--- NOTE | 2021-10-04 10:37 | PM.NEUROCN ---
History of Present Illness Data of Consult Service Date: 10/04/21 Primary Care Provider: None Physician HPI Reason for consult: Change in mental status 61 years old man with chronic depression, probably arthritis related body pain, and drug addiction with cocaine. He was brought to hospital because of depression and suicidal ideation and was admitted on psychiatric floor. Last night he was noted to have sudden change in mental status. He was unable to provide any history but according to the note by hospitalist he was noted to be staring in space and confused. There was no focal weakness. According to nursing he was somewhat confused from his baseline. Review of Systems Review of Systems: No recent loss of consciousness trauma or cold or flu-like illness PMFSH Past Medical History Medical History Acute blood loss anemia Cocaine use disorder, moderate, dependence Diabetes HTN (hypertension) MDD (major depressive disorder), recurrent episode, moderate Opioid use disorder, mild, in sustained remission Social History Social History Household Members: None Housing: Other Housing Other:: I live in a farmhouse in [place] . Do you presently have visiting nurse or other home services: No Unable to assess alcohol history related to: Unknown Alcohol intake: current Alcohol intake frequency: does not drink Patient Tobacco Use Status: Former Tobacco user Quit Date: 06/26/2021 Tobacco use type: Cigarette Cigarette Packs Per Day: 2 Cigarettes Per Day: 40 Smoked in Last 30 Days: No e-Cigarette/Vaping Use: Never Used Patient Interested in Nicotine Replacement: No Patient Given Instructions on How to Stop Smoking: No (Pt refused.) Second Hand Smoke Exposure: No Use of substances other than those prescribed or required for medical reasons: Yes Substance Use Type: Crack/Cocaine and Marijuana Last Used Substance: Unknown Last Used Substance Other:: Pt not responding to question Currently Displaying Signs/Symptoms of Drug Intoxication Withdrawal: No Any prior treatment program specific to substance use: No Have you been hit, kicked, punched, or otherwise hurt by someone within the past year? If so, by whom?: No Do you feel safe in your current relationship?: No Current Relationship Is there a partner from a previous relationship who is making you feel unsafe now?: No Are you made to feel afraid or neglected: No Advance Directives: No Advance Directives Information Provided: No Healthcare Proxy: No Guardian: No Do you have thoughts of harming others: None Do you have a plan to hurt others: No Plan Recently lost weight without trying: No Eating poorly because of decreased appetite: No Nutrition Risks: No Nutritional Risk Poor oral hygiene: No service: Yes Current occupational status: disabled Sexual orientation: Lesbian/Navarrete/Homosexual Meds Allergies Allergy/AdvReac Type Severity Reaction Status Date / Time No Known Allergies Allergy Verified 05/31/21 11:24 Active Medications: Current Medications Acetaminophen (Acetaminophen 325 Mg Tablet) 650 mg PO Q6H PRN PRN Reason: Headache/Pain Mild Scale (1-3) Al Hydroxide/Mg Hydroxide (Magnesium Hydrox/Alum Hydrox 30 Ml Oral.Susp) 30 ml PO Q6H PRN PRN Reason: Heartburn/Nausea Atorvastatin Calcium (Atorvastatin Calcium 40 Mg Tablet) 40 mg PO BEDTIME [facility] Last Admin: 10/03/21 21:46 Dose: 40 mg Buprenorphine/Naloxone (Buprenorphine/Naloxone 4/1 Mg Film) 1 film SUBLINGUAL Q4H PRN PRN Reason: mod to severe pain Last Admin: 10/03/21 21:46 Dose: 1 film Duloxetine HCl (Duloxetine Hcl 60 Mg Capsule.Dr) 60 mg PO DAILY [facility] Last Admin: 10/04/21 08:57 Dose: 60 mg Fenofibrate (Fenofibrate 54 Mg Tablet) 54 mg PO DAILY [facility] Last Admin: 10/04/21 08:57 Dose: 54 mg Gabapentin (Gabapentin 400 Mg Capsule) 800 mg PO TID [facility] Last Admin: 10/04/21 08:57 Dose: 800 mg Hydroxyzine HCl (Hydroxyzine Hcl 25 Mg Tablet) 25 mg PO Q6H PRN PRN Reason: Anxiety Last Admin: 10/03/21 08:34 Dose: 25 mg Lamotrigine (Lamotrigine 25 Mg Tablet) 50 mg PO BEDTIME [facility] Last Admin: 10/03/21 21:47 Dose: 50 mg Magnesium Hydroxide (Milk Of Magnesia 30 Ml Oral.Susp) 30 ml PO DAILY PRN PRN Reason: Constipation Magnesium Oxide (Magnesium Oxide 400 Mg Tablet) 400 mg PO DAILY [facility] Last Admin: 10/04/21 08:57 Dose: 400 mg Metformin HCl (Metformin Hcl Er 500 Mg Tab.Er.24h) 1,000 mg PO BID [facility] Last Admin: 10/04/21 08:57 Dose: 1,000 mg Metoprolol Succinate (Metoprolol Succinate Er 25 Mg Tab.Er.24h) 25 mg PO BEDTIME [facility]; Protocol Last Admin: 10/03/21 21:47 Dose: 25 mg Nicotine Polacrilex (Nicotine Polacrilex 2 Mg Gum) 4 mg BUCCAL Q2H PRN PRN Reason: Nicotine Cravings Omeprazole (Omeprazole 20 Mg Capsule.Dr) 20 mg PO DAILY@0630 [facility] Last Admin: 10/04/21 06:27 Dose: 20 mg Quetiapine Fumarate (Quetiapine Fumarate 300 Mg Tablet) 300 mg PO BEDTIME [facility] Last Admin: 10/03/21 21:46 Dose: 300 mg Quetiapine Fumarate (Quetiapine Fumarate 25 Mg Tablet) 25 mg PO DAILY [facility] Last Admin: 10/04/21 08:57 Dose: 25 mg Trazodone HCl (Trazodone Hcl 50 Mg Tablet) 50 mg PO BEDTIME PRN PRN Reason: Insomnia Last Admin: 10/02/21 21:00 Dose: 50 mg Home Medications Medication Instructions Recorded Confirmed Last Taken Type atorvastatin 40 mg tablet 1 tab PO BEDTIME 06/26/21 09/30/21 Unknown History duloxetine 60 mg capsule,delayed 60 mg PO QAM 06/26/21 09/30/21 Unknown History release fenofibrate 54 mg tablet 54 mg PO QAM 06/26/21 09/30/21 Unknown History magnesium oxide 400 mg (241.3 mg 400 mg PO QAM 06/26/21 09/30/21 Unknown History magnesium) tablet metoprolol succinate 25 mg 25 mg PO BEDTIME 06/26/21 09/30/21 Unknown History tablet,extended release 24 hr pantoprazole 40 mg tablet,delayed 1 tab PO QAM 09/30/21 09/30/21 Unknown History release quetiapine 300 mg tablet 1 tab PO BEDTIME 09/30/21 09/30/21 09/29/21 History Physical Exam Vital Signs: Vital Signs: Last Vital Signs Temp 98.3 F 10/04/21 08:50 Pulse 81 10/04/21 09:20 Resp 14 10/04/21 08:50 BP 156/68 H 10/04/21 09:20 Pulse Ox 96 10/04/21 09:20 O2 Del Method 10/04/21 09:20 BMI result Body Mass Index 26.6 Neuro: Other: He was alert and awake with normal spontaneity of speech and fluency. Comprehension was intact. Speech was slightly dysphasic. Teeth were missing. Mouth was somewhat dry. Face was symmetrical. Pupils were 3 mm round reactive to light. Extraocular muscles were intact. Visual nugent are full to confrontation. There was no pronator drift. [id number] testing revealed mild bilateral ataxia. Deep tendon reflexes were absent with flexor plantars. With my help, he was able to stand up but was somewhat unsteady stating that he could not walk well. Results Labs CBC & Chem 7: 09/30/21 08:10 09/30/21 08:10 Labs: His noncontrast head CT revealed moderately severe cerebellar atrophy [id number] diffuse cerebral atrophy and a wedge-shaped right parietal occipital chronic ischemic infarction and microvascular ischemic changes. Body imaging suggested right pubic ramus chronic injury and lumbar disc disease. Assessment and Plan (1) Encephalopathy: Status: Acute Overall description of the event and confusion is suggestive more of epileptic encephalopathy then vascular or stroke. He does have a chronic ischemic infarction, which could trigger seizures. Without noncontrast MRI of brain 1 could not completely rule out possibility of stroke. Also, I am not aware of previous workup for the stroke he had. This type of stroke or usually embolic and source could be Song or carotid artery. I recommend obtaining an EEG to rule out partial seizure disorder. (2) Chronic pain syndrome: Status: Acute Likely cause of pain syndrome, which might be the cause for drug abuse, is musculoskeletal or arthritis/trauma. His body imaging has indicated to right-sided pelvic area trauma and some lumbar disc disease. At least, x-ray of knee joints and hip joints should be done to formally assess his joints and make at definitive management plan. In the meantime, I would start with acetaminophen 500 mg 3 times a day. Gabapentin, which she has been taking, is use for pain control but would not help with musculoskeletal pain. Depending upon his response to acetaminophen, additional pain medicines can also be instituted. (3) Multifactorial gait disorder: Status: Acute He has significant cerebellar atrophy, which might be congenital or genetic or it could be due to alcohol abuse. In any case, with this amount of atrophy, I would expect problem with walking balance and tremor. This also effects his speech resulting in dysarthria and dysphagia. This information is important to avoid further worsening of his balance and gait in to avoid medicines that could make him worse, such as gabapentin. Smallest effective dose of medicines should be use. (4) Cerebral infarction: Status: Acute Chronic right parieto-occipital embolic looking cerebral infarction. As suggested above, imaging of vasculature with CTA of brain and neck and echocardiogram recommended. Also, his blood pressure is consistently high and the dose of metoprolol is not enough. I recommend adjustment of medicines and adding ALEJANDRO-inhibitor. For this, hospitalist service should provide further guidance. In the meantime he should be on baby aspirin daily. Procedures Date of Service Date of Service: 10/04/21
[2021-10-04 10:42] LABS: MANUAL DIFF FLAG NO
[2021-10-04 10:45] LABS: Basophils Percent Auto 0.5 % (0-2); Eosinophils Absolute Auto 0.1 X10*3/uL (0.0-0.4); Eosinophils Percent Auto 1.3 % (0-4); Hemoglobin 11.1 g/dl (14.0-18.0); Imm Gran Abs Auto 0.08 X10*3/uL (0.00-0.03); Imm Gran Pct Auto 1.3 % (0.0-0.4); Lymphocytes Absolute Auto 1.1 X10*3/uL (1.2-4.9); Mean Corpuscular HGB Conc 32.6 g/dl (31.0-36.0); Mean Corpuscular Hemoglobin 26.2 pg (27.0-33.0); Mean Corpuscular Volume 80.2 fL (80.0-98.0); Mean Platelet Volume 10.1 fL (9.4-12.4); Monocytes Absolute Auto 0.8 X10*3/uL (0.1-1.2); Monocytes Percent Auto 12.4 % (2-11); Neutrophils Absolute Auto 4.3 x10*3/uL (2.0-8.3); Neutrophils Percent Auto 67.5 % (45-73); Platelet Count 158 X10*3/uL (160-400); Red Blood Count 4.24 X10*6/uL (4.60-5.80); Red Cell Distribution Width 17.2 % (11.0-16.0); White Blood Count 6.4 X10*3/uL (4.8-10.8)
[2021-10-04 10:59] LABS: Ammonia 36 umol/L (13-55)
[2021-10-04 11:11] LABS: Alanine Aminotransferase 57 U/L (0-40); Alkaline Phosphatase 71 U/L (39-117); Anion Gap 14 (12-20); Aspartate Amino Transferase 40 U/L (5-37); Bilirubin Total 0.6 mg/dL (0.0-1.0); Blood Urea Nitrogen 11 mg/dL (9-16); Calcium 8.7 mg/dL (8.4-10.2); Carbon Dioxide 26 mmol/L (22-29); Chloride 96 mmol/L (96-108); Creatinine Clr Calc Pharmacy 95.8; Estimated Glomerular Filt Rate > 60; Glucose Random 250 mg/dL (60-115); Potassium 4.3 mmol/L (3.3-5.1); Sodium 132 mmol/L (135-145); Total Protein 6.3 g/dL (6.5-8.0)
--- NOTE | 2021-10-04 15:45 | P.PNPSI_ITS ---
Subjective Subjective Date of Service: 10/04/21 Reason For Visit: SI Interim History: Around 530 this morning patient started acting confused and a rapid response was called. Head CT done and unremarkable. When customs entry writer saw patient later this morning, he remained mild to moderately confused, knowing his name but not where he was; focused neuro exam test unremarkable except for cerebellar function of finger to nose exam, patient struggle to touch writers finger. otherwise: CN 2-12 grossly intact EOMI PERRLA strength 5/5 b/l throughout tricep reflexes +2 heel to carlson intact Hospitalist Dr. Verduzco and neurologist Dr. Curiel saw patient and discussed case with customs entry writer. Dr. Verduzco will follow and is currently formulating recommendations for treatment. Mental Status Exam Mental Status Exam Narrative: Pt is alert; oriented to self but not to place; behavior is cooperative though a little confused; dressed in casual attire with bald head, scruffy perez and marginal hygiene; mood is described as ok and affect congruent; eye contact appropriate; Speech is hard to understand due to speech impediment or mumbling which is baseline; otherwise, normal rate, volume and prosody and not pressured; no psychomotor agitation/retardation present; thought process is a little c onfused though can also be goal directed; Thought content is on getting help w/ chronic pain, on tx; intermittent SI; no HI. There is no evidence of perceptual disturbance. Patients insight and judgment are impaired. Diagnostics Vital Signs (24Hr): Vital Signs - 24 hr 10/03/21 21:40 10/04/21 05:09 10/04/21 05:28 Temperature 98.9 F 98.7 F Pulse Rate 95 93 102 H Respiratory Rate 18 20 Blood Pressure 151/74 H 140/78 H 142/98 H Pulse Oximetry 91 L 96 Oxygen Delivery Method Room Air Room Air 10/04/21 07:08 10/04/21 08:50 10/04/21 09:20 Temperature 98.3 F 98.3 F Pulse Rate 84 79 81 Respiratory Rate 12 14 Blood Pressure 125/74 103/70 156/68 H Pulse Oximetry 92 93 96 Oxygen Delivery Method Room Air Room Air Room Air BMI result Body Mass Index 26.6 Labs Results: 10/04/21 10:32 10/04/21 10:32 Labs: Laboratory Results - last 48 hr 10/02/21 10/03/21 10/03/21 20:51 06:28 22:17 WBC RBC Hgb Hct MCV MCH MCHC RDW Plt Count MPV Immature Gran % (Auto) Neut % (Auto) Lymph % (Auto) [place] % (Auto) Eos % (Auto) Baso % (Auto) Lymph # (Auto) [place] # (Auto) Eos # (Auto) Baso # (Auto) Abs Immat Gran (auto) Absolute Neuts (auto) Absolute Nucleated RBC Nucleated RBC % (auto) Sodium Potassium Chloride Carbon Dioxide Anion Gap BUN Creatinine Estim Creat Clear Calc Estimated GFR POC Glucose 208 H 226 H 267 H Random Glucose Calcium Total Bilirubin AST ALT Alkaline Phosphatase Ammonia Total Protein Albumin 10/04/21 10/04/21 10/04/21 04:27 06:55 08:56 WBC RBC Hgb Hct MCV MCH MCHC RDW Plt Count MPV Immature Gran % (Auto) Neut % (Auto) Lymph % (Auto) [place] % (Auto) Eos % (Auto) Baso % (Auto) Lymph # (Auto) [place] # (Auto) Eos # (Auto) Baso # (Auto) Abs Immat Gran (auto) Absolute Neuts (auto) Absolute Nucleated RBC Nucleated RBC % (auto) Sodium Potassium Chloride Carbon Dioxide Anion Gap BUN Creatinine Estim Creat Clear Calc Estimated GFR POC Glucose 271 H 261 H 260 H Random Glucose Calcium Total Bilirubin AST ALT Alkaline Phosphatase Ammonia Total Protein Albumin 10/04/21 10/04/21 10/04/21 09:47 10:32 10:32 WBC 6.4 RBC 4.24 L Hgb 11.1 L Hct 34.0 L MCV 80.2 MCH 26.2 L MCHC 32.6 RDW 17.2 H Plt Count 158 L D MPV 10.1 Immature Gran % (Auto) 1.3 H Neut % (Auto) 67.5 Lymph % (Auto) 17.0 L [place] % (Auto) 12.4 H Eos % (Auto) 1.3 Baso % (Auto) 0.5 Lymph # (Auto) 1.1 L [place] # (Auto) 0.8 Eos # (Auto) 0.1 Baso # (Auto) 0.0 Abs Immat Gran (auto) 0.08 H Absolute Neuts (auto) 4.3 Absolute Nucleated RBC 0.000 Nucleated RBC % (auto) 0.0 Sodium 132 L Potassium 4.3 Chloride 96 Carbon Dioxide 26 Anion Gap 14 BUN 11 Creatinine 0.83 Estim Creat Clear Calc 95.8 Estimated GFR > 60 POC Glucose 236 H Random Glucose 250 H Calcium 8.7 D Total Bilirubin 0.6 AST 40 H ALT 57 H Alkaline Phosphatase 71 Ammonia Total Protein 6.3 L Albumin 4.0 10/04/21 10:32 WBC RBC Hgb Hct MCV MCH MCHC RDW Plt Count MPV Immature Gran % (Auto) Neut % (Auto) Lymph % (Auto) [place] % (Auto) Eos % (Auto) Baso % (Auto) Lymph # (Auto) [place] # (Auto) Eos # (Auto) Baso # (Auto) Abs Immat Gran (auto) Absolute Neuts (auto) Absolute Nucleated RBC Nucleated RBC % (auto) Sodium Potassium Chloride Carbon Dioxide Anion Gap BUN Creatinine Estim Creat Clear Calc Estimated GFR POC Glucose Random Glucose Calcium Total Bilirubin AST ALT Alkaline Phosphatase Ammonia 36 Total Protein Albumin Imaging Radiology Impressions: ITS Impressions DD/ /16/536 EXAMINATION: CT HEAD WITHOUT CONTRAST (STROKE PROTOCOL) CLINICAL INFORMATION: Stroke protocol. COMPARISON: 04/25/2021 FINDINGS: There is no intracranial hemorrhage, hematoma, or extra-axial fluid collection.? The ventricles are normal in size. There is no hydrocephalus, edema, or mass effect.? The sabillon-white matter differentiation appears symmetric. There is no acute infarct or mass lesion. Stable chronic right parietal occipital infarct. The calvarium appears intact. There is no pneumocephalus or orbital emphysema.? The visualized sinuses and middle ears and mastoid air cells show no significant mucosal thickening. There are no air-fluid levels. CT/CT head for stroke IMPRESSION: No acute intracranial pathology. ? Medications Medications Current Medications Acetaminophen (Acetaminophen 325 Mg Tablet) 650 mg PO Q6H PRN PRN Reason: Headache/Pain Mild Scale (1-3) Al Hydroxide/Mg Hydroxide (Magnesium Hydrox/Alum Hydrox 30 Ml Oral.Susp) 30 ml PO Q6H PRN PRN Reason: Heartburn/Nausea Atorvastatin Calcium (Atorvastatin Calcium 40 Mg Tablet) 40 mg PO BEDTIME SHARA Last Admin: 10/03/21 21:46 Dose: 40 mg Buprenorphine/Naloxone (Buprenorphine/Naloxone 4/1 Mg Film) 1 film SUBLINGUAL Q4H PRN PRN Reason: mod to severe pain Last Admin: 10/03/21 21:46 Dose: 1 film Duloxetine HCl (Duloxetine Hcl 60 Mg Capsule.Dr) 60 mg PO DAILY [facility] Last Admin: 10/04/21 08:57 Dose: 60 mg Fenofibrate (Fenofibrate 54 Mg Tablet) 54 mg PO DAILY [facility] Last Admin: 10/04/21 08:57 Dose: 54 mg Gabapentin (Gabapentin 400 Mg Capsule) 800 mg PO TID [facility] Last Admin: 10/04/21 08:57 Dose: 800 mg Hydroxyzine HCl (Hydroxyzine Hcl 25 Mg Tablet) 25 mg PO Q6H PRN PRN Reason: Anxiety Last Admin: 10/03/21 08:34 Dose: 25 mg Lamotrigine (Lamotrigine 25 Mg Tablet) 50 mg PO BEDTIME [facility] Last Admin: 10/03/21 21:47 Dose: 50 mg Magnesium Hydroxide (Milk Of Magnesia 30 Ml Oral.Susp) 30 ml PO DAILY PRN PRN Reason: Constipation Magnesium Oxide (Magnesium Oxide 400 Mg Tablet) 400 mg PO DAILY [facility] Last Admin: 10/04/21 08:57 Dose: 400 mg Metformin HCl (Metformin Hcl Er 500 Mg Tab.Er.24h) 1,000 mg PO BID [facility] Last Admin: 10/04/21 08:57 Dose: 1,000 mg Metoprolol Succinate (Metoprolol Succinate Er 25 Mg Tab.Er.24h) 25 mg PO BEDTIME [facility]; Protocol Last Admin: 10/03/21 21:47 Dose: 25 mg Nicotine Polacrilex (Nicotine Polacrilex 2 Mg Gum) 4 mg BUCCAL Q2H PRN PRN Reason: Nicotine Cravings Omeprazole (Omeprazole 20 Mg Capsule.Dr) 20 mg PO DAILY@0630 [facility] Last Admin: 10/04/21 06:27 Dose: 20 mg Quetiapine Fumarate (Quetiapine Fumarate 300 Mg Tablet) 300 mg PO BEDTIME [facility] Last Admin: 10/03/21 21:46 Dose: 300 mg Quetiapine Fumarate (Quetiapine Fumarate 25 Mg Tablet) 25 mg PO DAILY [facility] Last Admin: 10/04/21 08:57 Dose: 25 mg Trazodone HCl (Trazodone Hcl 50 Mg Tablet) 50 mg PO BEDTIME PRN PRN Reason: Insomnia Last Admin: 10/02/21 21:00 Dose: 50 mg Allergies Allergies Allergy/AdvReac Type Severity Reaction Status Date / Time No Known Allergies Allergy Verified 05/31/21 11:24 Assessment & Plan Assessment & Plan (1) MDD (major depressive disorder), recurrent episode, moderate: Status: Acute Code(s): F33.1 - Major depressive disorder, recurrent, moderate (2) Encephalopathy: Status: Acute Code(s): G93.40 - Encephalopathy, unspecified Assessment and Plan: Overall description of the event and confusion is suggestive more of epileptic encephalopathy then vascular or stroke. He does have a chronic ischemic infarction, which could trigger seizures. Without noncontrast MRI of brain 1 could not completely rule out possibility of stroke. Also, I am not aware of previous workup for the stroke he had. This type of stroke or usually embolic and source could be Song or carotid artery. I recommend obtaining an EEG to rule out partial seizure disorder. (3) Chronic pain syndrome: Status: Acute Code(s): G89.4 - Chronic pain syndrome Assessment and Plan: Likely cause of pain syndrome, which might be the cause for drug abuse, is musculoskeletal or arthritis/trauma. His body imaging has indicated to right- sided pelvic area trauma and some lumbar disc disease. At least, x-ray of knee joints and hip joints should be done to formally assess his joints and make at definitive management plan. In the meantime, I would start with acetaminophen 500 mg 3 times a day. Gabapentin, which she has been taking, is use for pain control but would not help with musculoskeletal pain. Depending upon his response to acetaminophen, additional pain medicines can also be instituted. (4) Multifactorial gait disorder: Status: Acute Code(s): R26.89 - Other abnormalities of gait and mobility Assessment and Plan: He has significant cerebellar atrophy, which might be congenital or genetic or it could be due to alcohol abuse. In any case, with this amount of atrophy, I would expect problem with walking balance and tremor. This also effects his speech resulting in dysarthria and dysphagia. This information is important to avoid further worsening of his balance and gait in to avoid medicines that could make him worse, such as gabapentin. Smallest effective dose of medicines should be use. (5) Cerebral infarction: Status: Acute Code(s): I63.9 - Cerebral infarction, unspecified Assessment and Plan: Chronic right parieto-occipital embolic looking cerebral infarction. As suggested above, imaging of vasculature with CTA of brain and neck and echocardiogram recommended. Also, his blood pressure is consistently high and the dose of metoprolol is not enough. I recommend adjustment of medicines and adding ALEJANDRO-inhibitor. For this, hospitalist service should provide further guidance. In the meantime he should be on baby aspirin daily. (6) Cocaine use disorder: Status: Acute Code(s): F14.10 - Cocaine abuse, uncomplicated (7) Diabetes: Status: Acute Code(s): E11.9 - Type 2 diabetes mellitus without complications Plan HPI: Pt is a 61 yo Male with a history of MDD, chronic back and knee pain, ambulates in a wheelchair and long history of crack cocaine abuse who currently who presents for worsening depression and SI in the face of relapsing on crack cocaine And dealing with chronic pain. Patient reports that pain is a major trigger for him relapsing But also agrees that cocaine addiction keeps him from pursuing actual treatment for any of his issues. He agrees to trial of Suboxone to see if it can help with pain. He also asks for help with follow-up however minimizes his long history of poor adherence with medications and follow-up post discharges. Pt is working with [facility]. Hospital course: 10/02 tearful, depressed with SI; started to Suboxone p.r.n. for pain. Patient agrees that he typically stabilizes on current medication regimen so will not change anything other than increasing Lamictal 10/03 remains tearful, depressed and talking about suicide. Most of his Angst is focused on his physical disability and the challenges of it. Patient acknowledges that he both asks for and refuses help to which he says i'm f-kd in the head doc... Increasing Suboxone frequency to 4 times a day; adding Seroquel 25 mg daily to see if it can take the edge off emotional Angst. 10/04 sudden onset confusion; unclear etiology. Neurology gave recommendations in Dr. Verduzco following pt PLAN: CV 1:1 due to wheelchair Sudden onset Confusion: sudden onset 5:30am 10/04. Dr. Shahid first impression Overall description of the event and confusion is suggestive more of epileptic encephalopathy Head CT w/out contrast: No acute intracranial pathology. current labs appear non-contributory Neuro consult saw pt and recs appreciated Dr. Verduzco following and will consider following labs/interventions: -CTA of brain and neck -Echocardiogram -EEG to rule out partial seizure disorder -Increase metoprolol -add ALEJANDRO-inhibitor ?-Baby aspirin daily?VS patient hx of gI Bleed noncontrast MRI of brain needed to completely rule out possibility of stroke.? Depression: SW application to CSS/substance abuse programs Seroquel 25mg daily titrating Lamictal to 50 mg; customs entry writer reviewed risks/side effects including risk for Mitchell Chris's rash which patient understands and knows how to manage this medication duloxetine delayed release 60 mg PO QAM quetiapine 300 mg PO BEDTIME Hyperglycemia: discussed with Dr. Verduzco who will address Metformin HCl 1,000 mg PO BID HTN: metoprolol succinate XR 24/hour 25 mg PO BEDTIME Consider increasing metoprolol Consider adding ALEJANDRO-inhibitor Chronic pain: increase total daily allotment of Suboxone 4/1 mg q4h PRN (max does of 4 per day) for chronic pain HLD: atorvastatin 40 mg tablet PO BEDTIME fenofibrate 54 mg PO QAM magnesium oxide 400 mgPO QAM GERD Omeprazole 40mg (pantoprazole at home) I spent minutes with the patient and/or on the patient floor today, greater than?50% of which was spent counseling/coordinating care. Patient educated on: medical condition Informed Consent: further education needed Reason for contiued inpatient stay Substantial Risk for: harm to self and rapid decompensation
--- NOTE | 2021-10-04 16:42 | HO.PM.IMCN ---
History of Present Illness Data of Consult Service Date: 10/04/21 Requesting physician: Chapincito Gonzalez Primary Care Provider: None Physician HPI 61-year-old male with history of chronic depression cocaine abuse admitted to the psychiatric unit developed sudden change in mental status overnight. CT the brain failed to demonstrate any acute pathology and follow-up was requested Review of Systems Review of Systems: denies chest pain Denies shortness of breath Denies nausea vomiting diarrhea PMFSH Medical History Acute blood loss anemia Cocaine use disorder, moderate, dependence Diabetes HTN (hypertension) MDD (major depressive disorder), recurrent episode, moderate Opioid use disorder, mild, in sustained remission Social History Household Members: None Housing: Other Housing Other:: I live in a farmhouse in [place] . Do you presently have visiting nurse or other home services: No Unable to assess alcohol history related to: Unknown Alcohol intake: current Alcohol intake frequency: does not drink Patient Tobacco Use Status: Former Tobacco user Quit Date: 06/26/2021 Tobacco use type: Cigarette Cigarette Packs Per Day: 2 Cigarettes Per Day: 40 Smoked in Last 30 Days: No e-Cigarette/Vaping Use: Never Used Patient Interested in Nicotine Replacement: No Patient Given Instructions on How to Stop Smoking: No (Pt refused.) Second Hand Smoke Exposure: No Use of substances other than those prescribed or required for medical reasons: Yes Substance Use Type: Crack/Cocaine and Marijuana Last Used Substance: Unknown Last Used Substance Other:: Pt not responding to question Currently Displaying Signs/Symptoms of Drug Intoxication Withdrawal: No Any prior treatment program specific to substance use: No Have you been hit, kicked, punched, or otherwise hurt by someone within the past year? If so, by whom?: No Do you feel safe in your current relationship?: No Current Relationship Is there a partner from a previous relationship who is making you feel unsafe now?: No Are you made to feel afraid or neglected: No Advance Directives: No Advance Directives Information Provided: No Healthcare Proxy: No Guardian: No Do you have thoughts of harming others: None Do you have a plan to hurt others: No Plan Recently lost weight without trying: No Eating poorly because of decreased appetite: No Nutrition Risks: No Nutritional Risk Poor oral hygiene: No service: Yes Current occupational status: disabled Sexual orientation: Lesbian/Navarrete/Homosexual Meds Allergies Allergy/AdvReac Type Severity Reaction Status Date / Time No Known Allergies Allergy Verified 05/31/21 11:24 Active Medications: Current Medications Acetaminophen (Acetaminophen 325 Mg Tablet) 650 mg PO Q6H PRN PRN Reason: Headache/Pain Mild Scale (1-3) Al Hydroxide/Mg Hydroxide (Magnesium Hydrox/Alum Hydrox 30 Ml Oral.Susp) 30 ml PO Q6H PRN PRN Reason: Heartburn/Nausea Atorvastatin Calcium (Atorvastatin Calcium 40 Mg Tablet) 40 mg PO BEDTIME [facility] Last Admin: 10/03/21 21:46 Dose: 40 mg Buprenorphine/Naloxone (Buprenorphine/Naloxone 4/1 Mg Film) 1 film SUBLINGUAL Q4H PRN PRN Reason: mod to severe pain Last Admin: 10/03/21 21:46 Dose: 1 film Duloxetine HCl (Duloxetine Hcl 60 Mg Capsule.Dr) 60 mg PO DAILY [facility] Last Admin: 10/04/21 08:57 Dose: 60 mg Fenofibrate (Fenofibrate 54 Mg Tablet) 54 mg PO DAILY [facility] Last Admin: 10/04/21 08:57 Dose: 54 mg Gabapentin (Gabapentin 400 Mg Capsule) 800 mg PO TID [facility] Last Admin: 10/04/21 15:50 Dose: 800 mg Hydroxyzine HCl (Hydroxyzine Hcl 25 Mg Tablet) 25 mg PO Q6H PRN PRN Reason: Anxiety Last Admin: 10/03/21 08:34 Dose: 25 mg Lamotrigine (Lamotrigine 25 Mg Tablet) 50 mg PO BEDTIME [facility] Last Admin: 10/03/21 21:47 Dose: 50 mg Magnesium Hydroxide (Milk Of Magnesia 30 Ml Oral.Susp) 30 ml PO DAILY PRN PRN Reason: Constipation Magnesium Oxide (Magnesium Oxide 400 Mg Tablet) 400 mg PO DAILY [facility] Last Admin: 10/04/21 08:57 Dose: 400 mg Metformin HCl (Metformin Hcl Er 500 Mg Tab.Er.24h) 1,000 mg PO BID [facility] Last Admin: 10/04/21 08:57 Dose: 1,000 mg Metoprolol Succinate (Metoprolol Succinate Er 25 Mg Tab.Er.24h) 25 mg PO BEDTIME [facility]; Protocol Last Admin: 10/03/21 21:47 Dose: 25 mg Nicotine Polacrilex (Nicotine Polacrilex 2 Mg Gum) 4 mg BUCCAL Q2H PRN PRN Reason: Nicotine Cravings Omeprazole (Omeprazole 20 Mg Capsule.Dr) 20 mg PO DAILY@0630 [facility] Last Admin: 10/04/21 06:27 Dose: 20 mg Quetiapine Fumarate (Quetiapine Fumarate 300 Mg Tablet) 300 mg PO BEDTIME [facility] Last Admin: 10/03/21 21:46 Dose: 300 mg Quetiapine Fumarate (Quetiapine Fumarate 25 Mg Tablet) 25 mg PO DAILY [facility] Last Admin: 10/04/21 08:57 Dose: 25 mg Trazodone HCl (Trazodone Hcl 50 Mg Tablet) 50 mg PO BEDTIME PRN PRN Reason: Insomnia Last Admin: 10/02/21 21:00 Dose: 50 mg Home Medications Medication Instructions Recorded Confirmed Last Taken Type atorvastatin 40 mg tablet 1 tab PO BEDTIME 06/26/21 09/30/21 Unknown History duloxetine 60 mg capsule,delayed 60 mg PO [facility] 06/26/21 09/30/21 Unknown History release fenofibrate 54 mg tablet 54 mg PO [facility] 06/26/21 09/30/21 Unknown History magnesium oxide 400 mg (241.3 mg 400 mg PO [facility] 06/26/21 09/30/21 Unknown History magnesium) tablet metoprolol succinate 25 mg 25 mg PO BEDTIME 06/26/21 09/30/21 Unknown History tablet,extended release 24 hr pantoprazole 40 mg tablet,delayed 1 tab PO QAM 09/30/21 09/30/21 Unknown History release quetiapine 300 mg tablet 1 tab PO BEDTIME 09/30/21 09/30/21 09/29/21 History Physical Exam Vital Signs and Narrative: Vital Signs: Last Vital Signs Temp 98.3 F 10/04/21 08:50 Pulse 81 10/04/21 09:20 Resp 14 10/04/21 08:50 BP 156/68 H 10/04/21 09:20 Pulse Ox 96 10/04/21 09:20 O2 Del Method 10/04/21 09:20 BMI result Body Mass Index 26.6 Const: Other: awake alert somewhat confused but ea Resp: Other: clear to auscultation bilaterally no rales rhonchi or wh Cardio: Other: no S4; positive S1-S2; no S3 murmurs rubs or gallops Neuro: Other: cranial nerves 2-12 grossly intact as tested motor is 5/5. Sensation intact Extrem: Other: no edema bilaterally Results Labs CBC and Chem 7: 10/04/21 10:32 10/04/21 10:32 Labs: Laboratory Results - last 24 hr 10/03/21 10/04/21 10/04/21 22:17 04:27 06:55 MCV MCH MCHC RDW Plt Count MPV Immature Gran % (Auto) Neut % (Auto) Lymph % (Auto) [place] % (Auto) Eos % (Auto) Baso % (Auto) Lymph # (Auto) [place] # (Auto) Eos # (Auto) Baso # (Auto) Abs Immat Gran (auto) Absolute Neuts (auto) Absolute Nucleated RBC Nucleated RBC % (auto) Anion Gap Estim Creat Clear Calc Estimated GFR POC Glucose 267 H 271 H 261 H Random Glucose Calcium Total Bilirubin AST ALT Alkaline Phosphatase Ammonia Total Protein Albumin 10/04/21 10/04/21 10/04/21 08:56 09:47 10:32 MCV 80.2 MCH 26.2 L MCHC 32.6 RDW 17.2 H Plt Count 158 L D MPV 10.1 Immature Gran % (Auto) 1.3 H Neut % (Auto) 67.5 Lymph % (Auto) 17.0 L [place] % (Auto) 12.4 H Eos % (Auto) 1.3 Baso % (Auto) 0.5 Lymph # (Auto) 1.1 L [place] # (Auto) 0.8 Eos # (Auto) 0.1 Baso # (Auto) 0.0 Abs Immat Gran (auto) 0.08 H Absolute Neuts (auto) 4.3 Absolute Nucleated RBC 0.000 Nucleated RBC % (auto) 0.0 Anion Gap Estim Creat Clear Calc Estimated GFR POC Glucose 260 H 236 H Random Glucose Calcium Total Bilirubin AST ALT Alkaline Phosphatase Ammonia Total Protein Albumin 10/04/21 10/04/21 10:32 10:32 MCV MCH MCHC RDW Plt Count MPV Immature Gran % (Auto) Neut % (Auto) Lymph % (Auto) [place] % (Auto) Eos % (Auto) Baso % (Auto) Lymph # (Auto) [place] # (Auto) Eos # (Auto) Baso # (Auto) Abs Immat Gran (auto) Absolute Neuts (auto) Absolute Nucleated RBC Nucleated RBC % (auto) Anion Gap 14 Estim Creat Clear Calc 95.8 Estimated GFR > 60 POC Glucose Random Glucose 250 H Calcium 8.7 D Total Bilirubin 0.6 AST 40 H ALT 57 H Alkaline Phosphatase 71 Ammonia 36 Total Protein 6.3 L Albumin 4.0 Imaging Radiologist's Impressions: Impressions Head CT 10/04/21 05:36 IMPRESSION: No acute intracranial pathology. Assessment and Plan (1) Acute alteration in mental status: Status: Acute Plan 61-year-old male with a history of cocaine abuse and past history of cerebral infarction developed acute mental status changes overnight. CT scan demonstrated moderately severe cerebellar atrophy and a wedge-shaped right parietal-occipital chronic ischemic infarct with microvascular changes. Appreciate Dr. Curiel's input. 1.Acute mental status changes - EEG - Tylenol 500 mg t.i.d. - lisinopril 5 mg daily / ASA 81 mg daily Will follow-up results
[2021-10-04 18:00] VITALS: BP 126/63; PULSE 86; RESP 16; TEMP 37.1; O2SAT 94
[2021-10-04 21:38] LABS: Glucose, Whole Blood 177 mg/dL (60-115)
[2021-10-04] MEDS: lamoTRIgine 25 MG TABLET 50 MG PO (21:43)
[2021-10-04] MEDS: QUEtiapine Fumarate 300 MG TABLET PO (21:43)
[2021-10-04] MEDS: Metoprolol Succinate ER 25 MG TAB.ER.24H PO (21:43)
[2021-10-04] MEDS: Atorvastatin Calcium 40 MG TABLET PO (21:44)
[2021-10-05] MEDS: Omeprazole 20 MG CAPSULE.DR PO (06:24)
[2021-10-05 06:35] LABS: Glucose, Whole Blood 227 mg/dL (60-115)
[2021-10-05 08:24] VITALS: BP 108/73; PULSE 74; RESP 16; TEMP 36.8; O2SAT 94
[2021-10-05] MEDS: lisinopriL 5 MG TABLET PO (08:30)
[2021-10-05] MEDS: DULoxetine HCl 60 MG CAPSULE.DR PO (08:30)
[2021-10-05] MEDS: Gabapentin 400 MG CAPSULE 800 MG PO ×3 (08:30→20:39)
[2021-10-05] MEDS: metFORMIN HCl ER 500 MG TAB.ER.24H 1000 MG PO ×2 (08:31→20:39)
[2021-10-05] MEDS: QUEtiapine Fumarate 25 MG TABLET PO (08:31)
[2021-10-05] MEDS: Fenofibrate 54 MG TABLET PO (08:31)
[2021-10-05] MEDS: Magnesium Oxide 400 MG TABLET PO (08:31)
[2021-10-05 11:01] LABS: Glucose, Whole Blood 186 mg/dL (60-115)
[2021-10-05] MEDS: Buprenorphine/Naloxone 4/1 mg FILM 1 FILM SUBLINGUAL ×3 (14:18→22:44)
[2021-10-05 18:00] VITALS: BP 130/65; PULSE 76; RESP 16; TEMP 36.6; O2SAT 95
--- NOTE | 2021-10-05 19:37 | HO.PSYCHPN ---
Subjective Subjective Date of Service: 10/05/21 Reason For Visit: SI Interim History: Patient seen. Case discussed. Patient is less confused. He is alert and oriented. His speech remains garbled and difficult to understand. He has not had any further episodes of increased confusion. He denies SI. He reports overall his mood is improving. Events of 10/04 reviewed. Around 530 this morning patient started acting confused and a rapid response was called. Head CT done and unremarkable. When development writer saw patient later this morning, he remained mild to moderately confused, knowing his name but not where he was; focused neuro exam test unremarkable except for cerebellar function of finger to nose exam, patient struggle to touch writers finger. otherwise: CN 2-12 grossly intact EOMI PERRLA strength 5/5 b/l throughout tricep reflexes +2 heel to carlson intact Hospitalist Dr. Verduzco and neurologist Dr. Curiel saw patient and discussed case with development writer. Dr. Verduzco will follow and is currently formulating recommendations for treatment. Review of Systems Review of Systems denies chest pain Denies shortness of breath Denies nausea vomiting diarrhea Yes all other systems are reviewed and are negative Mental Status Exam Mental Status Exam Narrative: Pt is alert; oriented; behavior is cooperative though a little confused; dressed in casual attire with bald head, scruffy perez and marginal hygiene; mood is described as ok and affect congruent; eye contact appropriate; Speech is hard to understand due to speech impediment or mumbling which is baseline; otherwise, normal rate, volume and prosody and not pressured; no psychomotor agitation/retardation present; thought process is a little confused though can also be goal directed; Thought content is on getting help w/ chronic pain, on tx; intermittent SI; no HI. There is no evidence of perceptual disturbance. Patients insight and judgment are impaired. Diagnostics Vital Signs (24Hr): Vital Signs - 24 hr 10/05/21 08:24 10/05/21 18:00 Temperature 98.3 F 97.9 F Pulse Rate 74 76 Respiratory Rate 16 16 Blood Pressure 108/73 130/65 Pulse Oximetry 94 95 Oxygen Delivery Method Room Air Room Air BMI result Body Mass Index 26.6 Labs Results: 10/04/21 10:32 10/04/21 10:32 Labs: Laboratory Results - last 48 hr 10/03/21 10/04/21 10/04/21 22:17 04:27 06:55 WBC RBC Hgb Hct MCV MCH MCHC RDW Plt Count MPV Immature Gran % (Auto) Neut % (Auto) Lymph % (Auto) [place] % (Auto) Eos % (Auto) Baso % (Auto) Lymph # (Auto) [place] # (Auto) Eos # (Auto) Baso # (Auto) Abs Immat Gran (auto) Absolute Neuts (auto) Absolute Nucleated RBC Nucleated RBC % (auto) Sodium Potassium Chloride Carbon Dioxide Anion Gap BUN Creatinine Estim Creat Clear Calc Estimated GFR POC Glucose 267 H 271 H 261 H Random Glucose Calcium Total Bilirubin AST ALT Alkaline Phosphatase Ammonia Total Protein Albumin 10/04/21 10/04/21 10/04/21 08:56 09:47 10:32 WBC 6.4 RBC 4.24 L Hgb 11.1 L Hct 34.0 L MCV 80.2 MCH 26.2 L MCHC 32.6 RDW 17.2 H Plt Count 158 L D MPV 10.1 Immature Gran % (Auto) 1.3 H Neut % (Auto) 67.5 Lymph % (Auto) 17.0 L [place] % (Auto) 12.4 H Eos % (Auto) 1.3 Baso % (Auto) 0.5 Lymph # (Auto) 1.1 L [place] # (Auto) 0.8 Eos # (Auto) 0.1 Baso # (Auto) 0.0 Abs Immat Gran (auto) 0.08 H Absolute Neuts (auto) 4.3 Absolute Nucleated RBC 0.000 Nucleated RBC % (auto) 0.0 Sodium Potassium Chloride Carbon Dioxide Anion Gap BUN Creatinine Estim Creat Clear Calc Estimated GFR POC Glucose 260 H 236 H Random Glucose Calcium Total Bilirubin AST ALT Alkaline Phosphatase Ammonia Total Protein Albumin 10/04/21 10/04/21 10/04/21 10:32 10:32 21:32 WBC RBC Hgb Hct MCV MCH MCHC RDW Plt Count MPV Immature Gran % (Auto) Neut % (Auto) Lymph % (Auto) [place] % (Auto) Eos % (Auto) Baso % (Auto) Lymph # (Auto) [place] # (Auto) Eos # (Auto) Baso # (Auto) Abs Immat Gran (auto) Absolute Neuts (auto) Absolute Nucleated RBC Nucleated RBC % (auto) Sodium 132 L Potassium 4.3 Chloride 96 Carbon Dioxide 26 Anion Gap 14 BUN 11 Creatinine 0.83 Estim Creat Clear Calc 95.8 Estimated GFR > 60 POC Glucose 177 H Random Glucose 250 H Calcium 8.7 D Total Bilirubin 0.6 AST 40 H ALT 57 H Alkaline Phosphatase 71 Ammonia 36 Total Protein 6.3 L Albumin 4.0 10/05/21 10/05/21 06:31 10:56 WBC RBC Hgb Hct MCV MCH MCHC RDW Plt Count MPV Immature Gran % (Auto) Neut % (Auto) Lymph % (Auto) [place] % (Auto) Eos % (Auto) Baso % (Auto) Lymph # (Auto) [place] # (Auto) Eos # (Auto) Baso # (Auto) Abs Immat Gran (auto) Absolute Neuts (auto) Absolute Nucleated RBC Nucleated RBC % (auto) Sodium Potassium Chloride Carbon Dioxide Anion Gap BUN Creatinine Estim Creat Clear Calc Estimated GFR POC Glucose 227 H 186 H Random Glucose Calcium Total Bilirubin AST ALT Alkaline Phosphatase Ammonia Total Protein Albumin Imaging Radiology Impressions: ITS Impressions Head CT 10/04/21 05:36 IMPRESSION: No acute intracranial pathology. Medications Medications Current Medications Acetaminophen (Acetaminophen 325 Mg Tablet) 650 mg PO Q6H PRN PRN Reason: Headache/Pain Mild Scale (1-3) Al Hydroxide/Mg Hydroxide (Magnesium Hydrox/Alum Hydrox 30 Ml Oral.Susp) 30 ml PO Q6H PRN PRN Reason: Heartburn/Nausea Atorvastatin Calcium (Atorvastatin Calcium 40 Mg Tablet) 40 mg PO BEDTIME [facility] Last Admin: 10/04/21 21:44 Dose: 40 mg Buprenorphine/Naloxone (Buprenorphine/Naloxone 4/1 Mg Film) 1 film SUBLINGUAL Q4H PRN PRN Reason: mod to severe pain Last Admin: 10/05/21 18:44 Dose: 1 film Duloxetine HCl (Duloxetine Hcl 60 Mg Capsule.Dr) 60 mg PO DAILY [facility] Last Admin: 10/05/21 08:30 Dose: 60 mg Fenofibrate (Fenofibrate 54 Mg Tablet) 54 mg PO DAILY [facility] Last Admin: 10/05/21 08:31 Dose: 54 mg Gabapentin (Gabapentin 400 Mg Capsule) 800 mg PO TID [facility] Last Admin: 10/05/21 14:00 Dose: 800 mg Hydroxyzine HCl (Hydroxyzine Hcl 25 Mg Tablet) 25 mg PO Q6H PRN PRN Reason: Anxiety Last Admin: 10/03/21 08:34 Dose: 25 mg Lamotrigine (Lamotrigine 25 Mg Tablet) 50 mg PO BEDTIME [facility] Last Admin: 10/04/21 21:43 Dose: 50 mg Lisinopril (Lisinopril 5 Mg Tablet) 5 mg PO DAILY [facility]; Protocol Last Admin: 10/05/21 08:30 Dose: 5 mg Magnesium Hydroxide (Milk Of Magnesia 30 Ml Oral.Susp) 30 ml PO DAILY PRN PRN Reason: Constipation Magnesium Oxide (Magnesium Oxide 400 Mg Tablet) 400 mg PO DAILY [facility] Last Admin: 10/05/21 08:31 Dose: 400 mg Metformin HCl (Metformin Hcl Er 500 Mg Tab.Er.24h) 1,000 mg PO BID [facility] Last Admin: 10/05/21 08:31 Dose: 1,000 mg Metoprolol Succinate (Metoprolol Succinate Er 25 Mg Tab.Er.24h) 25 mg PO BEDTIME [facility]; Protocol Last Admin: 10/04/21 21:43 Dose: 25 mg Nicotine Polacrilex (Nicotine Polacrilex 2 Mg Gum) 4 mg BUCCAL Q2H PRN PRN Reason: Nicotine Cravings Omeprazole (Omeprazole 20 Mg Capsule.Dr) 20 mg PO DAILY@0630 [facility] Last Admin: 10/05/21 06:24 Dose: 20 mg Quetiapine Fumarate (Quetiapine Fumarate 300 Mg Tablet) 300 mg PO BEDTIME [facility] Last Admin: 10/04/21 21:43 Dose: 300 mg Quetiapine Fumarate (Quetiapine Fumarate 25 Mg Tablet) 25 mg PO DAILY [facility] Last Admin: 10/05/21 08:31 Dose: 25 mg Trazodone HCl (Trazodone Hcl 50 Mg Tablet) 50 mg PO BEDTIME PRN PRN Reason: Insomnia Last Admin: 10/02/21 21:00 Dose: 50 mg Allergies Allergies Allergy/AdvReac Type Severity Reaction Status Date / Time No Known Allergies Allergy Verified 05/31/21 11:24 Assessment & Plan Assessment & Plan (1) Acute alteration in mental status: Status: Acute Code(s): R41.82 - Altered mental status, unspecified (2) Cocaine use disorder: Status: Acute Code(s): F14.10 - Cocaine abuse, uncomplicated (3) MDD (major depressive disorder), recurrent episode, moderate: Status: Acute Code(s): F33.1 - Major depressive disorder, recurrent, moderate Assessment and Plan: CV? 1:1 due to wheelchair SW application to CSS/substance abuse programs Start Seroquel 25mg daily titrating Lamictal to 50 mg; development writer reviewed risks/side effects including risk for Mitchell Chris's rash which patient understands and knows how to manage this medication increase total daily allotment of Suboxone 4/1 mg q4h PRN (max does of 4 per day) for chronic pain atorvastatin 40 mg tablet PO BEDTIME duloxetine delayed release 60 mg PO QAM fenofibrate 54 mg PO QAM magnesium oxide 400 mgPO QAM metoprolol succinate XR 24/hour? 25 mg PO BEDTIME Omeprazole 40mg (pantoprazole at home) quetiapine 300 mg PO BEDTIME (4) Opioid use disorder, mild, in sustained remission: Status: Acute Code(s): F11.11 - Opioid abuse, in remission Plan 61-year-old male with a history of cocaine abuse and past history of cerebral infarction developed acute mental status changes overnight. CT scan demonstrated moderately severe cerebellar atrophy and a wedge-shaped right parietal-occipital chronic ischemic infarct with microvascular changes. Appreciate Dr. Curiel's input. 1.Acute mental status changes - EEG - Tylenol 500 mg t.i.d. - lisinopril 5 mg daily / ASA 81 mg daily Will follow-up results I spent minutes with the patient and/or on the patient floor today, greater than?50% of which was spent counseling/coordinating care. Reason for contiued inpatient stay Substantial Risk for: inability to function and med/psych decompensation
[2021-10-05] MEDS: Metoprolol Succinate ER 25 MG TAB.ER.24H PO (20:39)
[2021-10-05] MEDS: QUEtiapine Fumarate 300 MG TABLET PO (20:39)
[2021-10-05] MEDS: traZODone HCL 50 MG TABLET PO (20:39)
[2021-10-05] MEDS: lamoTRIgine 25 MG TABLET 50 MG PO (20:39)
[2021-10-05] MEDS: Atorvastatin Calcium 40 MG TABLET PO (20:39)
[2021-10-05 21:15] LABS: Glucose, Whole Blood 186 mg/dL (60-115)
[2021-10-06] MEDS: Omeprazole 20 MG CAPSULE.DR PO (06:31)
[2021-10-06] MEDS: Buprenorphine/Naloxone 4/1 mg FILM 1 FILM SUBLINGUAL ×4 (06:40→21:07)
[2021-10-06 08:48] VITALS: BP 124/71; PULSE 73; TEMP 36.7
[2021-10-06] MEDS: QUEtiapine Fumarate 25 MG TABLET PO (08:52)
[2021-10-06] MEDS: DULoxetine HCl 60 MG CAPSULE.DR PO (08:52)
[2021-10-06] MEDS: lisinopriL 5 MG TABLET PO (08:52)
[2021-10-06] MEDS: Gabapentin 400 MG CAPSULE 800 MG PO ×3 (08:52→21:05)
[2021-10-06] MEDS: metFORMIN HCl ER 500 MG TAB.ER.24H 1000 MG PO ×2 (08:52→21:06)
[2021-10-06] MEDS: Magnesium Oxide 400 MG TABLET PO (08:52)
[2021-10-06] MEDS: Fenofibrate 54 MG TABLET PO (08:52)
--- NOTE | 2021-10-06 11:16 | HO.PSYCHPN ---
Subjective Subjective Date of Service: 10/06/21 Reason For Visit: SI Interim History: Patient seen. Case discussed. Patient seen in his room. Starts by saying he is in pain and that he is predicting rain because his pain worsens with humidity (interestingly rain is forcast for today). He goes on to talk about having pain everywhere. That he was on GBP and that he didn't take it for a year and had a lot in store and people were trying to buy it from him. Then started talking about the events in the [employer]. He was talking about having connections in the [place] and has a friend there that he would contact but it wasn't clear why. He was difficult to understand and was rambling and had racing thoughts. His main complaint was that he was depressed because of his pain. No confusion. He was alert. He denies SI. BP control improved and he is normotensive. Events of 10/04 reviewed. Around 530 this morning patient started acting confused and a rapid response was called. Head CT done and unremarkable. When newswriter saw patient later this morning, he remained mild to moderately confused, knowing his name but not where he was; focused neuro exam test unremarkable except for cerebellar function of finger to nose exam, patient struggle to touch writers finger. otherwise: CN 2-12 grossly intact EOMI PERRLA strength 5/5 b/l throughout tricep reflexes +2 heel to carlson intact Hospitalist Dr. Verduzco and neurologist Dr. Curiel saw patient and discussed case with newswriter. Dr. Verduzco will follow and is currently formulating recommendations for treatment. Review of Systems Review of Systems denies chest pain Denies shortness of breath Denies nausea vomiting diarrhea Yes all other systems are reviewed and are negative Mental Status Exam Mental Status Exam Narrative: Pt is alert; oriented; behavior is cooperative though a little confused; dressed in casual attire with bald head, scruffy perez and marginal hygiene; mood is described as ok and affect congruent; eye contact appropriate; Speech is hard to understand due to speech impediment or mumbling which is baseline; otherwise, normal rate, volume and prosody and not pressured; no psychomotor agitation/retardation present; thought process is a little confused though can also be goal directed; Thought content is on getting help w/ chronic pain, on tx; Denies SI; no HI. There is no evidence of perceptual disturbance. Patients insight and judgment are impaired. Diagnostics Vital Signs (24Hr): Vital Signs - 24 hr 10/05/21 18:00 10/06/21 08:48 Temperature 97.9 F 98.1 F Pulse Rate 76 73 Respiratory Rate 16 Blood Pressure 130/65 124/71 Pulse Oximetry 95 Oxygen Delivery Method Room Air BMI result Body Mass Index 26.6 Labs Results: 10/04/21 10:32 10/04/21 10:32 Labs: Laboratory Results - last 48 hr 10/04/21 10/05/21 10/05/21 21:32 06:31 10:56 POC Glucose 177 H 227 H 186 H 10/05/21 21:11 POC Glucose 186 H Imaging Radiology Impressions: ITS Impressions Head CT 10/04/21 05:36 IMPRESSION: No acute intracranial pathology. Medications Medications Current Medications Acetaminophen (Acetaminophen 325 Mg Tablet) 650 mg PO Q6H PRN PRN Reason: Headache/Pain Mild Scale (1-3) Al Hydroxide/Mg Hydroxide (Magnesium Hydrox/Alum Hydrox 30 Ml Oral.Susp) 30 ml PO Q6H PRN PRN Reason: Heartburn/Nausea Atorvastatin Calcium (Atorvastatin Calcium 40 Mg Tablet) 40 mg PO BEDTIME [facility] Last Admin: 10/05/21 20:39 Dose: 40 mg Buprenorphine/Naloxone (Buprenorphine/Naloxone 4/1 Mg Film) 1 film SUBLINGUAL Q4H PRN PRN Reason: mod to severe pain Last Admin: 10/06/21 11:13 Dose: 1 film Duloxetine HCl (Duloxetine Hcl 60 Mg Capsule.Dr) 60 mg PO DAILY [facility] Last Admin: 10/06/21 08:52 Dose: 60 mg Fenofibrate (Fenofibrate 54 Mg Tablet) 54 mg PO DAILY [facility] Last Admin: 10/06/21 08:52 Dose: 54 mg Gabapentin (Gabapentin 400 Mg Capsule) 800 mg PO TID [facility] Last Admin: 10/06/21 08:52 Dose: 800 mg Hydroxyzine HCl (Hydroxyzine Hcl 25 Mg Tablet) 25 mg PO Q6H PRN PRN Reason: Anxiety Last Admin: 10/03/21 08:34 Dose: 25 mg Lamotrigine (Lamotrigine 25 Mg Tablet) 50 mg PO BEDTIME [facility] Last Admin: 10/05/21 20:39 Dose: 50 mg Lisinopril (Lisinopril 5 Mg Tablet) 5 mg PO DAILY [facility]; Protocol Last Admin: 10/06/21 08:52 Dose: 5 mg Magnesium Hydroxide (Milk Of Magnesia 30 Ml Oral.Susp) 30 ml PO DAILY PRN PRN Reason: Constipation Magnesium Oxide (Magnesium Oxide 400 Mg Tablet) 400 mg PO DAILY [facility] Last Admin: 10/06/21 08:52 Dose: 400 mg Metformin HCl (Metformin Hcl Er 500 Mg Tab.Er.24h) 1,000 mg PO BID [facility] Last Admin: 10/06/21 08:52 Dose: 1,000 mg Metoprolol Succinate (Metoprolol Succinate Er 25 Mg Tab.Er.24h) 25 mg PO BEDTIME [facility]; Protocol Last Admin: 10/05/21 20:39 Dose: 25 mg Nicotine Polacrilex (Nicotine Polacrilex 2 Mg Gum) 4 mg BUCCAL Q2H PRN PRN Reason: Nicotine Cravings Omeprazole (Omeprazole 20 Mg Capsule.Dr) 20 mg PO DAILY@0630 [facility] Last Admin: 10/06/21 06:31 Dose: 20 mg Quetiapine Fumarate (Quetiapine Fumarate 300 Mg Tablet) 300 mg PO BEDTIME [facility] Last Admin: 10/05/21 20:39 Dose: 300 mg Quetiapine Fumarate (Quetiapine Fumarate 25 Mg Tablet) 25 mg PO DAILY [facility] Last Admin: 10/06/21 08:52 Dose: 25 mg Trazodone HCl (Trazodone Hcl 50 Mg Tablet) 50 mg PO BEDTIME PRN PRN Reason: Insomnia Last Admin: 10/05/21 20:39 Dose: 50 mg Allergies Allergies Allergy/AdvReac Type Severity Reaction Status Date / Time No Known Allergies Allergy Verified 05/31/21 11:24 Assessment & Plan Assessment & Plan (1) Acute alteration in mental status: Status: Acute Code(s): R41.82 - Altered mental status, unspecified (2) Cocaine use disorder: Status: Acute Code(s): F14.10 - Cocaine abuse, uncomplicated (3) MDD (major depressive disorder), recurrent episode, moderate: Status: Acute Code(s): F33.1 - Major depressive disorder, recurrent, moderate Assessment and Plan: CV? 1:1 due to wheelchair SW application to [facility]/substance abuse programs Start Seroquel 25mg daily titrating Lamictal to 50 mg; newswriter reviewed risks/side effects including risk for Mitchell Chris's rash which patient understands and knows how to manage this medication increase total daily allotment of Suboxone 4/1 mg q4h PRN (max does of 4 per day) for chronic pain atorvastatin 40 mg tablet PO BEDTIME duloxetine delayed release 60 mg PO QAM fenofibrate 54 mg PO QAM magnesium oxide 400 mgPO QAM metoprolol succinate XR 24/hour? 25 mg PO BEDTIME Omeprazole 40mg (pantoprazole at home) quetiapine 300 mg PO BEDTIME 10/06 Continue treatment plan (4) Opioid use disorder, mild, in sustained remission: Status: Acute Code(s): F11.11 - Opioid abuse, in remission Plan 61-year-old male with a history of cocaine abuse and past history of cerebral infarction developed acute mental status changes overnight. CT scan demonstrated moderately severe cerebellar atrophy and a wedge-shaped right parietal-occipital chronic ischemic infarct with microvascular changes. Appreciate Dr. Curiel's input. 1.Acute mental status changes - EEG - Tylenol 500 mg t.i.d. - lisinopril 5 mg daily / ASA 81 mg daily Will follow-up results I spent minutes with the patient and/or on the patient floor today, greater than?50% of which was spent counseling/coordinating care. Reason for contiued inpatient stay Substantial Risk for: inability to function and med/psych decompensation
[2021-10-06 21:00] VITALS: BP 108/74; PULSE 70; TEMP 35.7
[2021-10-06] MEDS: lamoTRIgine 25 MG TABLET 50 MG PO (21:05)
[2021-10-06] MEDS: Metoprolol Succinate ER 25 MG TAB.ER.24H PO (21:06)
[2021-10-06] MEDS: QUEtiapine Fumarate 300 MG TABLET PO (21:06)
[2021-10-06] MEDS: Atorvastatin Calcium 40 MG TABLET PO (21:07)
[2021-10-06 21:37] LABS: Glucose, Whole Blood 207 mg/dL (60-115)
[2021-10-07 06:00] VITALS: BP 110/75; PULSE 67; RESP 18; TEMP 36.4; O2SAT 93
[2021-10-07] MEDS: Omeprazole 20 MG CAPSULE.DR PO (06:26)
[2021-10-07 08:14] LABS: Glucose, Whole Blood 174 mg/dL (60-115)
[2021-10-07] MEDS: DULoxetine HCl 60 MG CAPSULE.DR PO (08:51)
[2021-10-07] MEDS: Gabapentin 400 MG CAPSULE 800 MG PO ×3 (08:51→20:54)
[2021-10-07] MEDS: Magnesium Oxide 400 MG TABLET PO (08:51)
[2021-10-07] MEDS: metFORMIN HCl ER 500 MG TAB.ER.24H 1000 MG PO ×2 (08:51→20:54)
[2021-10-07] MEDS: lisinopriL 5 MG TABLET PO (08:51)
[2021-10-07] MEDS: Fenofibrate 54 MG TABLET PO (08:51)
[2021-10-07] MEDS: QUEtiapine Fumarate 25 MG TABLET PO (08:52)
[2021-10-07] MEDS: Buprenorphine/Naloxone 4/1 mg FILM 1 FILM SUBLINGUAL ×3 (08:52→20:37)
--- NOTE | 2021-10-07 10:23 | HO.PSYCHPN ---
Subjective Subjective Date of Service: 10/07/21 Reason For Visit: SI Interim History: Patient says he continues to have suicidal thoughts but they are not as strong as they were. Still feels depressed and anxious about his future and says he feels up and down throughout the day but also agrees that depression is a little better. Dizziness/confusion from last week fully resolved and workup negative. Form Setter discussed history little more and patient denies childhood trauma though he said there was some bullying going on as he was the youngest of 6. Patient remains adamant that he cannot maintain himself at his apartment that he will be quickly to depressed and relapse; he continues to advocate for more structured living situation. Mental Status Exam Mental Status Exam Narrative: Pt is alert; oriented; behavior is cooperative, calm; dressed in hospital gown, bald head, scruffy perez and marginal hygiene; mood is described as ok and affect congruent; eye contact appropriate; Speech is hard to understand due to speech impediment or mumbling which is baseline; otherwise, normal rate, volume and prosody and not pressured; no psychomotor agitation/retardation present; thought process goal directed; Thought content is on getting help w/ chronic pain, on tx, changing living situation; reports intermittent passive SI; no HI. There is no evidence of perceptual disturbance. Patients insight and judgment are impaired but have improved some. Diagnostics Vital Signs (24Hr): Vital Signs - 24 hr 10/06/21 21:00 Temperature 96.3 F L Pulse Rate 70 Blood Pressure 108/74 BMI result Body Mass Index 26.6 Labs Results: 10/04/21 10:32 10/04/21 10:32 Labs: Laboratory Results - last 48 hr 10/05/21 10/05/21 10/06/21 10:56 21:11 21:33 POC Glucose 186 H 186 H 207 H 10/07/21 08:08 POC Glucose 174 H Imaging Radiology Impressions: ITS Impressions Head CT 10/04/21 05:36 IMPRESSION: No acute intracranial pathology. Medications Medications Current Medications Acetaminophen (Acetaminophen 325 Mg Tablet) 650 mg PO Q6H PRN PRN Reason: Headache/Pain Mild Scale (1-3) Al Hydroxide/Mg Hydroxide (Magnesium Hydrox/Alum Hydrox 30 Ml Oral.Susp) 30 ml PO Q6H PRN PRN Reason: Heartburn/Nausea Atorvastatin Calcium (Atorvastatin Calcium 40 Mg Tablet) 40 mg PO BEDTIME [facility] Last Admin: 10/06/21 21:07 Dose: 40 mg Buprenorphine/Naloxone (Buprenorphine/Naloxone 4/1 Mg Film) 1 film SUBLINGUAL Q4H PRN PRN Reason: mod to severe pain Last Admin: 10/07/21 08:52 Dose: 1 film Duloxetine HCl (Duloxetine Hcl 60 Mg Capsule.) 60 mg PO DAILY [facility] Last Admin: 10/07/21 08:51 Dose: 60 mg Fenofibrate (Fenofibrate 54 Mg Tablet) 54 mg PO DAILY [facility] Last Admin: 10/07/21 08:51 Dose: 54 mg Gabapentin (Gabapentin 400 Mg Capsule) 800 mg PO TID [facility] Last Admin: 10/07/21 08:51 Dose: 800 mg Hydroxyzine HCl (Hydroxyzine Hcl 25 Mg Tablet) 25 mg PO Q6H PRN PRN Reason: Anxiety Last Admin: 10/03/21 08:34 Dose: 25 mg Lamotrigine (Lamotrigine 25 Mg Tablet) 50 mg PO BEDTIME [facility] Last Admin: 10/06/21 21:05 Dose: 50 mg Lisinopril (Lisinopril 5 Mg Tablet) 5 mg PO DAILY [facility]; Protocol Last Admin: 10/07/21 08:51 Dose: 5 mg Magnesium Hydroxide (Milk Of Magnesia 30 Ml Oral.Susp) 30 ml PO DAILY PRN PRN Reason: Constipation Magnesium Oxide (Magnesium Oxide 400 Mg Tablet) 400 mg PO DAILY [facility] Last Admin: 10/07/21 08:51 Dose: 400 mg Metformin HCl (Metformin Hcl Er 500 Mg Tab.Er.24h) 1,000 mg PO BID [facility] Last Admin: 10/07/21 08:51 Dose: 1,000 mg Metoprolol Succinate (Metoprolol Succinate Er 25 Mg Tab.Er.24h) 25 mg PO BEDTIME [facility]; Protocol Last Admin: 10/06/21 21:06 Dose: 25 mg Nicotine Polacrilex (Nicotine Polacrilex 2 Mg Gum) 4 mg BUCCAL Q2H PRN PRN Reason: Nicotine Cravings Omeprazole (Omeprazole 20 Mg Capsule.) 20 mg PO DAILY@0630 [facility] Last Admin: 10/07/21 06:26 Dose: 20 mg Quetiapine Fumarate (Quetiapine Fumarate 300 Mg Tablet) 300 mg PO BEDTIME [facility] Last Admin: 10/06/21 21:06 Dose: 300 mg Quetiapine Fumarate (Quetiapine Fumarate 25 Mg Tablet) 25 mg PO DAILY [facility] Last Admin: 10/07/21 08:52 Dose: 25 mg Trazodone HCl (Trazodone Hcl 50 Mg Tablet) 50 mg PO BEDTIME PRN PRN Reason: Insomnia Last Admin: 10/05/21 20:39 Dose: 50 mg Allergies Allergies Allergy/AdvReac Type Severity Reaction Status Date / Time No Known Allergies Allergy Verified 05/31/21 11:24 Assessment & Plan Assessment & Plan (1) MDD (major depressive disorder), recurrent episode, moderate: Status: Chronic Code(s): F33.1 - Major depressive disorder, recurrent, moderate (2) Opioid use disorder, mild, in sustained remission: Status: Acute Code(s): F11.11 - Opioid abuse, in remission (3) Chronic pain syndrome: Status: Chronic Code(s): G89.4 - Chronic pain syndrome Assessment and Plan: Likely cause of pain syndrome, which might be the cause for drug abuse, is musculoskeletal or arthritis/trauma. His body imaging has indicated to right-sided pelvic area trauma and some lumbar disc disease. At least, x-ray of knee joints and hip joints should be done to formally assess his joints and make at definitive management plan. In the meantime, I would start with acetaminophen 500 mg 3 times a day. Gabapentin, which she has been taking, is use for pain control but would not help with musculoskeletal pain. Depending upon his response to acetaminophen, additional pain medicines can also be instituted. 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 As suggested above, imaging of vasculature with CTA of brain and neck and echocardiogram recommended. Also, his blood pressure is consistently high and the dose of metoprolol is not enough. I recommend adjustment of medicines and adding ALEJANDRO-inhibitor. For this, hospitalist service should provide further guidance. In the meantime he should be on baby aspirin daily. (7) Multifactorial gait disorder: Status: Chronic Code(s): R26.89 - Other abnormalities of gait and mobility Assessment and Plan: He has significant cerebellar atrophy, which might be congenital or genetic or it could be due to alcohol abuse. In any case, with this amount of atrophy, I would expect problem with walking balance and tremor. This also effects his speech resulting in dysarthria and dysphagia. This information is important to avoid further worsening of his balance and gait in to avoid medicines that could make him worse, such as gabapentin. Smallest effective dose of medicines should be use. (8) Acute alteration in mental status: Status: Resolved Code(s): R41.82 - Altered mental status, unspecified (9) Encephalopathy: Status: Resolved Code(s): G93.40 - Encephalopathy, unspecified Assessment and Plan: Overall description of the event and confusion is suggestive more of epileptic encephalopathy then vascular or stroke. He does have a chronic ischemic infarction, which could trigger seizures. Without noncontrast MRI of brain 1 could not completely rule out possibility of stroke. Also, I am not aware of previous workup for the stroke he had. This type of stroke or usually embolic and source could be Song or carotid artery. I recommend obtaining an EEG to rule out partial seizure disorder. Plan 61-year-old male with a history of cocaine abuse and past history of cerebral infarction developed acute mental status changes overnight. CT scan demonstrated moderately severe cerebellar atrophy and a wedge-shaped right parietal-occipital chronic ischemic infarct with microvascular changes. Appreciate Dr. Curiel's input. 1.Acute mental status changes - EEG - Tylenol 500 mg t.i.d. - lisinopril 5 mg daily / ASA 81 mg daily Will follow-up results HPI: Pt is a 61 yo Male with a history of MDD, chronic back and knee pain, ambulates in a wheelchair and long history of crack cocaine abuse who currently who presents for worsening depression and SI in the face of relapsing on crack cocaine And dealing with chronic pain.? Patient reports that pain is a major trigger for him relapsing But also agrees that cocaine addiction keeps him from pursuing actual treatment for any of his issues.? He agrees to trial of Suboxone to see if it can help with pain.? He also asks for help with follow-up however minimizes his long history of poor adherence with medications and follow-up post discharges. Pt is working with [employer]. Hospital course: 10/02 tearful, depressed with SI; started to Suboxone p.r.n. for pain.? Patient agrees that he typically stabilizes on current medication regimen so will not change anything other than increasing Lamictal 10/03 remains tearful, depressed and talking about suicide.? Most of his Angst is focused on his physical disability and the challenges of it.? Patient acknowledges that he both asks for and refuses help to which he says i'm f-kd in the head doc... Increasing Suboxone frequency to 4 times a day; adding Seroquel 25 mg daily to see if it can take the edge off emotional Angst. 10/04 sudden onset confusion; unclear etiology.? Neurology gave recommendations in Dr. Verduzco following pt 10/07 confusion resolved; will follow-up with Dr. Verduzco regarding neurology's recommendations. Patient remains depressed but reports mood is a little better and SI less intense. Team discussed patient's situation and chronic relapse and dysregulation with chronic SI. Patient has frequent readmissions. Team agrees that patient will strongly benefit from increased outpatient supports and a supportive living environment and will thus pursue assisted living. Although patient has improved, he will be returning to the exact same environment and thus remains at risk for continued relapse and continued readmissions. PLAN: CV? 1:1 due to wheelchair Depression: SW application to CSS/substance abuse programs Seroquel 25mg daily titrating Lamictal to 50 mg; ticket writer reviewed risks/side effects including risk for Mitchell Chris's rash which patient understands and knows how to manage this medication duloxetine delayed release 60 mg PO QAM quetiapine 300 mg PO BEDTIME Hyperglycemia: discussed with Dr. Verduzco who will address Metformin HCl 1,000 mg PO BID Chronic right parieto-occipital cerebral infarction/chronic cerebellar atrophy: Dr. Shahid recs appreciated; Dr. Verduzco following Will discuss with dr. Verduzco following: -CTA of brain and neck -Echocardiogram -Baby aspirin daily?VS patient hx of gI Bleed HTN: continue metoprolol succinate XR 24/hour? 25 mg PO BEDTIME Added Lisinopril 5mg daily Chronic pain: increase total daily allotment of Suboxone 4/1 mg q4h PRN (max does of 4 per day) for chronic pain HLD: atorvastatin 40 mg tablet PO BEDTIME fenofibrate 54 mg PO QAM magnesium oxide 400 mgPO QAM GERD Omeprazole 40mg (pantoprazole at home) Sudden onset Confusion:? REsolved -Per Dr. 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 Verduzco who is following Head CT 10/04/21 IMPRESSION: No acute intracranial pathology. EEG 10/04/21 IMPRESSION:? Mild slowing with no evidence of seizure disorder. I spent minutes with the patient and/or on the patient floor today, greater than?50% of which was spent counseling/coordinating care. Patient educated on: diagnosis, substance abuse, therapeutic strategies and medical condition Informed Consent: understands and further education needed Reason for contiued inpatient stay Substantial Risk for: harm to self and rapid decompensation
[2021-10-07 20:47] LABS: Glucose, Whole Blood 183 mg/dL (60-115)
[2021-10-07 20:52] VITALS: BP 139/84; PULSE 74; TEMP 36.3; O2SAT 95
[2021-10-07] MEDS: lamoTRIgine 25 MG TABLET 50 MG PO (20:55)
[2021-10-07] MEDS: Metoprolol Succinate ER 25 MG TAB.ER.24H PO (20:56)
[2021-10-07] MEDS: Atorvastatin Calcium 40 MG TABLET PO (20:56)
[2021-10-07] MEDS: QUEtiapine Fumarate 300 MG TABLET PO (20:57)
[2021-10-07] MEDS: traZODone HCL 50 MG TABLET PO (21:04)
[2021-10-08] MEDS: Omeprazole 20 MG CAPSULE.DR PO (06:36)
[2021-10-08] MEDS: Buprenorphine/Naloxone 4/1 mg FILM 1 FILM SUBLINGUAL ×4 (06:49→20:06)
[2021-10-08 06:56] LABS: Glucose, Whole Blood 140 mg/dL (60-115)
[2021-10-08] MEDS: Gabapentin 400 MG CAPSULE 800 MG PO ×3 (08:50→20:06)
[2021-10-08] MEDS: metFORMIN HCl ER 500 MG TAB.ER.24H 1000 MG PO ×2 (08:50→20:06)
[2021-10-08] MEDS: Fenofibrate 54 MG TABLET PO (08:50)
[2021-10-08] MEDS: Magnesium Oxide 400 MG TABLET PO (08:50)
[2021-10-08] MEDS: DULoxetine HCl 60 MG CAPSULE.DR PO (08:51)
[2021-10-08] MEDS: QUEtiapine Fumarate 25 MG TABLET PO (08:51)
[2021-10-08] MEDS: lisinopriL 5 MG TABLET PO (08:51)
[2021-10-08 09:00] VITALS: BP 127/67; PULSE 63; TEMP 36.4
--- NOTE | 2021-10-08 16:23 | HO.PSYCHPN ---
Subjective Subjective Date of Service: 10/08/21 Reason For Visit: SI Interim History: Patient reported being in somewhat better mood and made efforts to come out of his room and socialize in the milieu. Patient was able to be social with peers. He continues to report depression and intermittent SI however both of these are improving. Mental Status Exam Mental Status Exam Narrative: Pt is alert; oriented; behavior is cooperative, calm; dressed in hospital gown, bald head, scruffy perez and marginal hygiene; mood is described as ok and affect congruent; eye contact appropriate; Speech is hard to understand due to speech impediment or mumbling which is baseline; otherwise, normal rate, volume and prosody and not pressured; no psychomotor agitation/retardation present; thought process goal directed; Thought content is on getting help w/ chronic pain, on tx, changing living situation; reports intermittent passive SI; no HI. There is no evidence of perceptual disturbance. Patients insight and judgment are impaired but have improved. Diagnostics Vital Signs (24Hr): Vital Signs - 24 hr 10/07/21 20:52 10/08/21 09:00 Temperature 97.4 F 97.6 F Pulse Rate 74 63 Blood Pressure 139/84 127/67 Pulse Oximetry 95 Oxygen Delivery Method Room Air BMI result Body Mass Index 26.6 Labs Results: 10/04/21 10:32 10/04/21 10:32 Labs: Laboratory Results - last 48 hr 10/06/21 10/07/21 10/07/21 21:33 08:08 20:43 POC Glucose 207 H 174 H 183 H 10/08/21 06:48 POC Glucose 140 H Imaging Radiology Impressions: ITS Impressions Head CT 10/04/21 05:36 IMPRESSION: No acute intracranial pathology. Medications Medications Current Medications Acetaminophen (Acetaminophen 325 Mg Tablet) 650 mg PO Q6H PRN PRN Reason: Headache/Pain Mild Scale (1-3) Al Hydroxide/Mg Hydroxide (Magnesium Hydrox/Alum Hydrox 30 Ml Oral.Susp) 30 ml PO Q6H PRN PRN Reason: Heartburn/Nausea Atorvastatin Calcium (Atorvastatin Calcium 40 Mg Tablet) 40 mg PO BEDTIME [facility] Last Admin: 10/07/21 20:56 Dose: 40 mg Buprenorphine/Naloxone (Buprenorphine/Naloxone 4/1 Mg Film) 1 film SUBLINGUAL Q4H PRN PRN Reason: mod to severe pain Last Admin: 10/08/21 16:02 Dose: 1 film Duloxetine HCl (Duloxetine Hcl 60 Mg Capsule.Dr) 60 mg PO DAILY [facility] Last Admin: 10/08/21 08:51 Dose: 60 mg Fenofibrate (Fenofibrate 54 Mg Tablet) 54 mg PO DAILY [facility] Last Admin: 10/08/21 08:50 Dose: 54 mg Gabapentin (Gabapentin 400 Mg Capsule) 800 mg PO TID [facility] Last Admin: 10/08/21 14:41 Dose: 800 mg Hydroxyzine HCl (Hydroxyzine Hcl 25 Mg Tablet) 25 mg PO Q6H PRN PRN Reason: Anxiety Last Admin: 10/03/21 08:34 Dose: 25 mg Lamotrigine (Lamotrigine 25 Mg Tablet) 50 mg PO BEDTIME [facility] Last Admin: 10/07/21 20:55 Dose: 50 mg Lisinopril (Lisinopril 5 Mg Tablet) 5 mg PO DAILY [facility]; Protocol Last Admin: 10/08/21 08:51 Dose: 5 mg Magnesium Hydroxide (Milk Of Magnesia 30 Ml Oral.Susp) 30 ml PO DAILY PRN PRN Reason: Constipation Magnesium Oxide (Magnesium Oxide 400 Mg Tablet) 400 mg PO DAILY [facility] Last Admin: 10/08/21 08:50 Dose: 400 mg Metformin HCl (Metformin Hcl Er 500 Mg Tab.Er.24h) 1,000 mg PO BID [facility] Last Admin: 10/08/21 08:50 Dose: 1,000 mg Metoprolol Succinate (Metoprolol Succinate Er 25 Mg Tab.Er.24h) 25 mg PO BEDTIME [facility]; Protocol Last Admin: 10/07/21 20:56 Dose: 25 mg Nicotine Polacrilex (Nicotine Polacrilex 2 Mg Gum) 4 mg BUCCAL Q2H PRN PRN Reason: Nicotine Cravings Omeprazole (Omeprazole 20 Mg Capsule.Dr) 20 mg PO DAILY@0630 [facility] Last Admin: 10/08/21 06:36 Dose: 20 mg Quetiapine Fumarate (Quetiapine Fumarate 300 Mg Tablet) 300 mg PO BEDTIME [facility] Last Admin: 10/07/21 20:57 Dose: 300 mg Quetiapine Fumarate (Quetiapine Fumarate 25 Mg Tablet) 25 mg PO DAILY [facility] Last Admin: 10/08/21 08:51 Dose: 25 mg Trazodone HCl (Trazodone Hcl 50 Mg Tablet) 50 mg PO BEDTIME PRN PRN Reason: Insomnia Last Admin: 10/07/21 21:04 Dose: 50 mg Allergies Allergies Allergy/AdvReac Type Severity Reaction Status Date / Time No Known Allergies Allergy Verified 05/31/21 11:24 Assessment & Plan Assessment & Plan (1) MDD (major depressive disorder), recurrent episode, moderate: Status: Chronic Code(s): F33.1 - Major depressive disorder, recurrent, moderate (2) Opioid use disorder, mild, in sustained remission: Status: Acute Code(s): F11.11 - Opioid abuse, in remission (3) Chronic pain syndrome: Status: Chronic Code(s): G89.4 - Chronic pain syndrome (4) Cocaine use disorder: Status: Chronic Code(s): F14.10 - Cocaine abuse, uncomplicated (5) Acute alteration in mental status: Status: Resolved Code(s): R41.82 - Altered mental status, unspecified (6) Multifactorial gait disorder: Status: Chronic Code(s): R26.89 - Other abnormalities of gait and mobility (7) Diabetes: Status: Acute Code(s): E11.9 - Type 2 diabetes mellitus without complications (8) HTN (hypertension): Code(s): I10 - Essential (primary) hypertension Plan HPI: Pt is a 61 yo Male with a history of MDD, chronic back and knee pain, ambulates in a wheelchair and long history of crack cocaine abuse who currently who presents for worsening depression and SI in the face of relapsing on crack cocaine And dealing with chronic pain.? Patient reports that pain is a major trigger for him relapsing But also agrees that cocaine addiction keeps him from pursuing actual treatment for any of his issues.? He agrees to trial of Suboxone to see if it can help with pain.? He also asks for help with follow-up however minimizes his long history of poor adherence with medications and follow-up post discharges. Pt is working with [employer]. Hospital course: 10/02 tearful, depressed with SI; started to Suboxone p.r.n. for pain.? Patient agrees that he typically stabilizes on current medication regimen so will not change anything other than increasing Lamictal 10/03 remains tearful, depressed and talking about suicide.? Most of his Angst is focused on his physical disability and the challenges of it.? Patient acknowledges that he both asks for and refuses help to which he says i'm f-kd in the head doc... Increasing Suboxone frequency to 4 times a day; adding Seroquel 25 mg daily to see if it can take the edge off emotional Angst. 10/04 sudden onset confusion; unclear etiology.? Neurology gave recommendations in Dr. Verduzco following pt 10/07 confusion resolved; will follow-up with Dr. Verduzco regarding neurology's recommendations.? Patient remains depressed but reports mood is a little better and SI less intense.? Team discussed patient's situation and chronic relapse and dysregulation with chronic SI.? Patient has frequent readmissions.? Team agrees that patient will strongly benefit from increased outpatient supports and a supportive living environment and will thus pursue assisted living.? Although patient has improved, he will be returning to the exact same environment and thus remains at risk for continued relapse and continued readmissions. Patient remains very concerned that going back to current living situation will resulted him quickly relapsing, disc regulating and becoming suicidal PLAN: CV? 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 Verduzco who will address Metformin HCl 1,000 mg PO BID Chronic right parieto-occipital cerebral infarction/chronic cerebellar atrophy: Dr. Shahid recreynaldo appreciated; Dr. Verduzco following Will discuss with dr. Verduzco following: -CTA of brain and neck -Echocardiogram -Baby aspirin daily?VS patient hx of gI Bleed HTN: continue metoprolol succinate XR 24/hour? 25 mg PO BEDTIME Added Lisinopril 5mg daily Chronic pain: increase total daily allotment of Suboxone 4/1 mg q4h PRN (max does of 4 per day) for chronic pain HLD: atorvastatin 40 mg tablet PO BEDTIME fenofibrate 54 mg PO QAM magnesium oxide 400 mgPO QAM GERD Omeprazole 40mg (pantoprazole at home) Sudden onset Confusion:??REsolved -Per Dr. 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 Verduzco who is following Head CT 10/04/21 IMPRESSION: No acute intracranial pathology. EEG 10/04/21 IMPRESSION:? Mild slowing with no evidence of seizure disorder. I spent minutes with the patient and/or on the patient floor today, greater than?50% of which was spent counseling/coordinating care. Patient educated on: diagnosis and therapeutic strategies Informed Consent: understands Reason for contiued inpatient stay Substantial Risk for: rapid decompensation
[2021-10-08 17:08] VITALS: BP 131/77; PULSE 85; TEMP 35.9; O2SAT 95
[2021-10-08] MEDS: lamoTRIgine 25 MG TABLET 50 MG PO (20:07)
[2021-10-08] MEDS: Metoprolol Succinate ER 25 MG TAB.ER.24H PO (20:07)
[2021-10-08] MEDS: QUEtiapine Fumarate 300 MG TABLET PO (20:07)
[2021-10-08] MEDS: Atorvastatin Calcium 40 MG TABLET PO (20:08)
[2021-10-08] MEDS: traZODone HCL 50 MG TABLET PO (20:11)
[2021-10-08 20:34] LABS: Glucose, Whole Blood 235 mg/dL (60-115)
[2021-10-09 06:00] VITALS: BP 129/74; PULSE 70; TEMP 36.4; O2SAT 95
[2021-10-09 06:03] LABS: Glucose, Whole Blood 198 mg/dL (60-115)
[2021-10-09] MEDS: Omeprazole 20 MG CAPSULE.DR PO (06:07)
[2021-10-09] MEDS: Buprenorphine/Naloxone 4/1 mg FILM 1 FILM SUBLINGUAL ×4 (06:19→20:13)
[2021-10-09] MEDS: Fenofibrate 54 MG TABLET PO (08:23)
[2021-10-09] MEDS: Magnesium Oxide 400 MG TABLET PO (08:23)
[2021-10-09] MEDS: QUEtiapine Fumarate 25 MG TABLET PO (08:23)
[2021-10-09] MEDS: lisinopriL 5 MG TABLET PO (08:23)
[2021-10-09] MEDS: DULoxetine HCl 60 MG CAPSULE.DR PO (08:23)
[2021-10-09] MEDS: Gabapentin 400 MG CAPSULE 800 MG PO ×3 (08:23→20:14)
[2021-10-09] MEDS: metFORMIN HCl ER 500 MG TAB.ER.24H 1000 MG PO ×2 (08:23→20:14)
[2021-10-09 11:27] LABS: Glucose, Whole Blood 227 mg/dL (60-115)
--- NOTE | 2021-10-09 12:08 | P.PNPSI_ITS ---
Subjective Subjective Date of Service: 10/09/21 Reason For Visit: SI Interim History: Patient reports continued suicidal ideation thinking about continuing on in his current condition. He says he feels he needs assisted living and gets be side himself when thinking about trying to cope without extra help. The patient feels at risk for relapse as well given that he is feeling emotional and depressed. Mental Status Exam Mental Status Exam Narrative: Pt is alert; oriented; behavior is cooperative, calm; dressed in hospital gown, bald head, scruffy perez and marginal hygiene; mood is described as depressed and affect congruent; eye contact appropriate; Speech is hard to understand due to speech impediment or mumbling which is baseline; otherwise, normal rate, volume and prosody and not pressured; no psychomotor agitation/retardation present; thought process goal directed; Thought content is on feeling suicidal, hating his life, chronic pain, and tx, changing living situation; reports SI; no HI. There is no evidence of perceptual disturbance. Patients insight and judgment are impaired. Diagnostics Vital Signs (24Hr): Vital Signs - 24 hr 10/08/21 17:08 10/09/21 06:00 Temperature 96.7 F L 97.6 F Pulse Rate 85 70 Blood Pressure 131/77 129/74 Pulse Oximetry 95 95 Oxygen Delivery Method Room Air Room Air BMI result Body Mass Index 26.6 Labs Results: 10/04/21 10:32 10/12/21 07:00 Labs: Laboratory Results - last 48 hr 10/07/21 10/08/21 10/08/21 20:43 06:48 20:29 POC Glucose 183 H 140 H 235 H 10/09/21 10/09/21 05:59 11:21 POC Glucose 198 H 227 H Imaging Radiology Impressions: ITS Impressions Head CT 10/04/21 05:36 IMPRESSION: No acute intracranial pathology. Medications Medications Current Medications Acetaminophen (Acetaminophen 325 Mg Tablet) 650 mg PO Q6H PRN PRN Reason: Headache/Pain Mild Scale (1-3) Al Hydroxide/Mg Hydroxide (Magnesium Hydrox/Alum Hydrox 30 Ml Oral.Susp) 30 ml PO Q6H PRN PRN Reason: Heartburn/Nausea Atorvastatin Calcium (Atorvastatin Calcium 40 Mg Tablet) 40 mg PO BEDTIME [facility] Last Admin: 10/08/21 20:08 Dose: 40 mg Buprenorphine/Naloxone (Buprenorphine/Naloxone 4/1 Mg Film) 1 film SUBLINGUAL Q4H PRN PRN Reason: mod to severe pain Last Admin: 10/09/21 11:19 Dose: 1 film Duloxetine HCl (Duloxetine Hcl 60 Mg Capsule.Dr) 60 mg PO DAILY [facility] Last Admin: 10/09/21 08:23 Dose: 60 mg Fenofibrate (Fenofibrate 54 Mg Tablet) 54 mg PO DAILY [facility] Last Admin: 10/09/21 08:23 Dose: 54 mg Gabapentin (Gabapentin 400 Mg Capsule) 800 mg PO TID [facility] Last Admin: 10/09/21 08:23 Dose: 800 mg Hydroxyzine HCl (Hydroxyzine Hcl 25 Mg Tablet) 25 mg PO Q6H PRN PRN Reason: Anxiety Last Admin: 10/03/21 08:34 Dose: 25 mg Lamotrigine (Lamotrigine 25 Mg Tablet) 50 mg PO BEDTIME [facility] Last Admin: 10/08/21 20:07 Dose: 50 mg Lisinopril (Lisinopril 5 Mg Tablet) 5 mg PO DAILY [facility]; Protocol Last Admin: 10/09/21 08:23 Dose: 5 mg Magnesium Hydroxide (Milk Of Magnesia 30 Ml Oral.Susp) 30 ml PO DAILY PRN PRN Reason: Constipation Magnesium Oxide (Magnesium Oxide 400 Mg Tablet) 400 mg PO DAILY [facility] Last Admin: 10/09/21 08:23 Dose: 400 mg Metformin HCl (Metformin Hcl Er 500 Mg Tab.Er.24h) 1,000 mg PO BID [facility] Last Admin: 10/09/21 08:23 Dose: 1,000 mg Metoprolol Succinate (Metoprolol Succinate Er 25 Mg Tab.Er.24h) 25 mg PO BEDTIME [facility]; Protocol Last Admin: 10/08/21 20:07 Dose: 25 mg Nicotine Polacrilex (Nicotine Polacrilex 2 Mg Gum) 4 mg BUCCAL Q2H PRN PRN Reason: Nicotine Cravings Omeprazole (Omeprazole 20 Mg Capsule.Dr) 20 mg PO DAILY@0630 [facility] Last Admin: 10/09/21 06:07 Dose: 20 mg Quetiapine Fumarate (Quetiapine Fumarate 300 Mg Tablet) 300 mg PO BEDTIME [facility] Last Admin: 10/08/21 20:07 Dose: 300 mg Quetiapine Fumarate (Quetiapine Fumarate 25 Mg Tablet) 25 mg PO DAILY [facility] Last Admin: 10/09/21 08:23 Dose: 25 mg Trazodone HCl (Trazodone Hcl 50 Mg Tablet) 50 mg PO BEDTIME PRN PRN Reason: Insomnia Last Admin: 10/08/21 20:11 Dose: 50 mg Allergies Allergies Allergy/AdvReac Type Severity Reaction Status Date / Time No Known Allergies Allergy Verified 05/31/21 11:24 Assessment & Plan Assessment & Plan (1) MDD (major depressive disorder), recurrent episode, moderate: Status: Chronic Code(s): F33.1 - Major depressive disorder, recurrent, moderate (2) Opioid use disorder, mild, in sustained remission: Status: Acute Code(s): F11.11 - Opioid abuse, in remission (3) Chronic pain syndrome: Status: Chronic Code(s): G89.4 - Chronic pain syndrome (4) Cocaine use disorder: Status: Chronic Code(s): F14.10 - Cocaine abuse, uncomplicated (5) Acute alteration in mental status: Status: Resolved Code(s): R41.82 - Altered mental status, unspecified (6) Multifactorial gait disorder: Status: Chronic Code(s): R26.89 - Other abnormalities of gait and mobility (7) Diabetes: Status: Acute Code(s): E11.9 - Type 2 diabetes mellitus without complications (8) HTN (hypertension): Code(s): I10 - Essential (primary) hypertension Plan HPI: Pt is a 61 yo Male with a history of MDD, chronic back and knee pain, ambulates in a wheelchair and long history of crack cocaine abuse who currently who presents for worsening depression and SI in the face of relapsing on crack cocaine And dealing with chronic pain.? Patient reports that pain is a major trigger for him relapsing But also agrees that cocaine addiction keeps him from pursuing actual treatment for any of his issues.? He agrees to trial of Suboxone to see if it can help with pain.? He also asks for help with follow-up however minimizes his long history of poor adherence with medications and follow-up post discharges. Pt is working with [facility]. Hospital course: 10/02 tearful, depressed with SI; started to Suboxone p.r.n. for pain.? Patient agrees that he typically stabilizes on current medication regimen so will not change anything other than increasing Lamictal 10/03 remains tearful, depressed and talking about suicide.? Most of his Angst is focused on his physical disability and the challenges of it.? Patient acknowledges that he both asks for and refuses help to which he says i'm f-kd in the head doc... Increasing Suboxone frequency to 4 times a day; adding Seroquel 25 mg daily to see if it can take the edge off emotional Angst. 10/04 sudden onset confusion; unclear etiology.? Neurology gave recommendations in Dr. Verduzco following pt 10/07 confusion resolved; will follow-up with Dr. Verduzco regarding neurology's recommendations.? Patient remains depressed but reports mood is a little better and SI less intense.? Team discussed patient's situation and chronic relapse and dysregulation with chronic SI.? Patient has frequent readmissions.? Team agrees that patient will strongly benefit from increased outpatient supports and a supportive living environment and will thus pursue assisted living.? Although patient has improved, he will be returning to the exact same environment and thus remains at risk for continued relapse and continued readmissions. Patient remains very concerned that going back to current living situation will resulted him quickly relapsing, disc regulating and becoming suicidal 10/09 Patient remains intermittently suicidal with hopeless feelings feeling, discouraged about where his life is. Feels he needs assisted living situation And feels a become suicidal if he goes home. Team discussed this and agree that patient is struggling to except outside support; without a more structured living situation will likely continue to relapse and get readmitted and thus team supports patient's request for help getting into assisted living. PLAN: CV? 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 Shahid recreynaldo appreciated; Dr. Verduzco following pt and recommends following: -Hold off for now CTA of brain and neck; reconsider if confustion reappears -Echocardiogram done on 04/30/21 (see below) -no Baby aspirin given hx of gI Bleed HTN: continue metoprolol succinate XR 24/hour? 25 mg PO BEDTIME Added Lisinopril 5mg daily Chronic pain: increase total daily allotment of Suboxone 4/1 mg q4h PRN (max does of 4 per day) for chronic pain HLD: atorvastatin 40 mg tablet PO BEDTIME fenofibrate 54 mg PO QAM magnesium oxide 400 mgPO QAM GERD Omeprazole 40mg (pantoprazole at home) Sudden onset Confusion:??REsolved -Per Dr. 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 Verduzco who is following Head CT 10/04/21 IMPRESSION: No acute intracranial pathology. EEG 10/04/21 IMPRESSION:? Mild slowing with no evidence of seizure disorder. Transthoracic Echocardiogram 04/30/21 Procedure(s): CA echo transthoracic complete Conclusions: -? 1. Technically limited study with off axis views? 2. LV systolic function overall appears to be normal with LVEF of 55-60% ? 3. Mild aortic regurgitation ? 4.? Normal calculated RV systolic pressure ? 5.? No gross pericardial effusion? ? ? I spent minutes with the patient and/or on the patient floor today, greater than?50% of which was spent counseling/coordinating care. Patient educated on: diagnosis, medication risk/benefits and substance abuse Informed Consent: understands Reason for contiued inpatient stay Substantial Risk for: rapid decompensation
[2021-10-09 18:00] VITALS: BP 128/83; PULSE 81; TEMP 36.2; O2SAT 95
[2021-10-09] MEDS: lamoTRIgine 25 MG TABLET 50 MG PO (20:14)
[2021-10-09] MEDS: QUEtiapine Fumarate 300 MG TABLET PO (20:14)
[2021-10-09] MEDS: traZODone HCL 50 MG TABLET PO (20:14)
[2021-10-09] MEDS: Atorvastatin Calcium 40 MG TABLET PO (20:15)
[2021-10-09] MEDS: Milk of Magnesia 30 ML ORAL.SUSP PO (21:59)
[2021-10-09] MEDS: Metoprolol Succinate ER 25 MG TAB.ER.24H PO (22:03)
[2021-10-10] MEDS: Buprenorphine/Naloxone 4/1 mg FILM 1 FILM SUBLINGUAL ×4 (03:19→20:20)
[2021-10-10 06:00] VITALS: BP 136/88; PULSE 100; RESP 16; TEMP 36.6; O2SAT 96
[2021-10-10 06:01] LABS: Glucose, Whole Blood 183 mg/dL (60-115)
[2021-10-10] MEDS: Omeprazole 20 MG CAPSULE.DR PO (06:01)
[2021-10-10] MEDS: metFORMIN HCl ER 500 MG TAB.ER.24H 1000 MG PO ×2 (08:25→20:03)
[2021-10-10] MEDS: Gabapentin 400 MG CAPSULE 800 MG PO ×3 (08:25→19:47)
[2021-10-10] MEDS: DULoxetine HCl 60 MG CAPSULE.DR PO (08:25)
[2021-10-10] MEDS: lisinopriL 5 MG TABLET PO (08:25)
[2021-10-10] MEDS: Fenofibrate 54 MG TABLET PO (08:25)
[2021-10-10] MEDS: Magnesium Oxide 400 MG TABLET PO (08:25)
[2021-10-10] MEDS: QUEtiapine Fumarate 25 MG TABLET PO (08:25)
[2021-10-10] MEDS: Milk of Magnesia 30 ML ORAL.SUSP PO (10:56)
--- NOTE | 2021-10-10 17:11 | HO.PSYCHPN ---
Subjective Subjective Date of Service: 10/10/21 Reason For Visit: SI Interim History: Patient reports that he still depressed. He says he has suicidal ideation but it is intermittent and it is passive however he says if he thinks about it too much he can get hopeless; he does say I want to live and does not want to . He is struggling with catastrophizing his situation, almost insisting that things will go poorly for him; patient laments that he is at this point On his own without any friends or family. He is open to redirection and reality testing but frequently goes back to hopeless thinking. Herbarium Curator again discussed behavioral activation and how staying in his room all day by himself is not helpful but probably contributory; Patient agrees to get out of the room more. He agrees to continuing to titrate Lamictal. Patient thinks that Seroquel 25 mg scheduled has been helpful. Mental Status Exam Mental Status Exam Narrative: Pt is alert; oriented; behavior is cooperative, calm; dressed in hospital gown, bald head, scruffy perez and marginal hygiene; mood is described as depressed and affect congruent; eye contact appropriate; Speech is hard to understand due to speech impediment or mumbling which is baseline; otherwise, normal rate, volume and prosody and not pressured; no psychomotor agitation/retardation present; thought process goal directed; Thought content is battling hopeless feelings; worried about his life, chronic pain, and tx, changing living situation; intermittent and passive SI, no intent or plans; no HI. There is no evidence of perceptual disturbance. Patients insight and judgment are impaired. Diagnostics Vital Signs (24Hr): Vital Signs - 24 hr 10/09/21 18:00 10/10/21 06:00 Temperature 97.1 F 98 F Pulse Rate 81 100 Respiratory Rate 16 Blood Pressure 128/83 136/88 Pulse Oximetry 95 96 Oxygen Delivery Method Room Air Room Air BMI result Body Mass Index 26.6 Labs Results: 10/04/21 10:32 10/12/21 07:00 Labs: Laboratory Results - last 48 hr 10/08/21 10/09/21 10/09/21 20:29 05:59 11:21 POC Glucose 235 H 198 H 227 H 10/10/21 05:57 POC Glucose 183 H Imaging Radiology Impressions: ITS Impressions Head CT 10/04/21 05:36 IMPRESSION: No acute intracranial pathology. Medications Medications Current Medications Acetaminophen (Acetaminophen 325 Mg Tablet) 650 mg PO Q6H PRN PRN Reason: Headache/Pain Mild Scale (1-3) Al Hydroxide/Mg Hydroxide (Magnesium Hydrox/Alum Hydrox 30 Ml Oral.Susp) 30 ml PO Q6H PRN PRN Reason: Heartburn/Nausea Atorvastatin Calcium (Atorvastatin Calcium 40 Mg Tablet) 40 mg PO BEDTIME [facility] Last Admin: 10/09/21 20:15 Dose: 40 mg Buprenorphine/Naloxone (Buprenorphine/Naloxone 4/1 Mg Film) 1 film SUBLINGUAL Q4H PRN PRN Reason: mod to severe pain Last Admin: 10/10/21 16:15 Dose: 1 film Docusate Sodium (Docusate Sodium 100 Mg Capsule) 200 mg PO BEDTIME [facility] Duloxetine HCl (Duloxetine Hcl 60 Mg Capsule.Dr) 60 mg PO DAILY [facility] Last Admin: 10/10/21 08:25 Dose: 60 mg Fenofibrate (Fenofibrate 54 Mg Tablet) 54 mg PO DAILY [facility] Last Admin: 10/10/21 08:25 Dose: 54 mg Gabapentin (Gabapentin 400 Mg Capsule) 800 mg PO TID [facility] Last Admin: 10/10/21 14:18 Dose: 800 mg Glyburide (Glyburide 5 Mg Tablet) 5 mg PO DAILY [facility] Hydroxyzine HCl (Hydroxyzine Hcl 25 Mg Tablet) 25 mg PO Q6H PRN PRN Reason: Anxiety Last Admin: 10/03/21 08:34 Dose: 25 mg Lamotrigine (Lamotrigine 25 Mg Tablet) 50 mg PO BEDTIME [facility] Last Admin: 10/09/21 20:14 Dose: 50 mg Lisinopril (Lisinopril 5 Mg Tablet) 5 mg PO DAILY [facility]; Protocol Last Admin: 10/10/21 08:25 Dose: 5 mg Magnesium Hydroxide (Milk Of Magnesia 30 Ml Oral.Susp) 30 ml PO DAILY PRN PRN Reason: Constipation Last Admin: 10/10/21 10:56 Dose: 30 ml Magnesium Oxide (Magnesium Oxide 400 Mg Tablet) 400 mg PO DAILY [facility] Last Admin: 10/10/21 08:25 Dose: 400 mg Metformin HCl (Metformin Hcl Er 500 Mg Tab.Er.24h) 1,000 mg PO BID [facility] Last Admin: 10/10/21 08:25 Dose: 1,000 mg Metoprolol Succinate (Metoprolol Succinate Er 25 Mg Tab.Er.24h) 25 mg PO BEDTIME [facility]; Protocol Last Admin: 10/09/21 22:03 Dose: 25 mg Nicotine Polacrilex (Nicotine Polacrilex 2 Mg Gum) 4 mg BUCCAL Q2H PRN PRN Reason: Nicotine Cravings Omeprazole (Omeprazole 20 Mg Capsule.Dr) 20 mg PO DAILY@0630 [facility] Last Admin: 10/10/21 06:01 Dose: 20 mg Quetiapine Fumarate (Quetiapine Fumarate 300 Mg Tablet) 300 mg PO BEDTIME [facility] Last Admin: 10/09/21 20:14 Dose: 300 mg Quetiapine Fumarate (Quetiapine Fumarate 25 Mg Tablet) 25 mg PO DAILY [facility] Last Admin: 10/10/21 08:25 Dose: 25 mg Trazodone HCl (Trazodone Hcl 50 Mg Tablet) 50 mg PO BEDTIME PRN PRN Reason: Insomnia Last Admin: 10/09/21 20:14 Dose: 50 mg Allergies Allergies Allergy/AdvReac Type Severity Reaction Status Date / Time No Known Allergies Allergy Verified 05/31/21 11:24 Assessment & Plan Assessment & Plan (1) MDD (major depressive disorder), recurrent episode, moderate: Status: Chronic Code(s): F33.1 - Major depressive disorder, recurrent, moderate (2) Opioid use disorder, mild, in sustained remission: Status: Acute Code(s): F11.11 - Opioid abuse, in remission (3) Chronic pain syndrome: Status: Chronic Code(s): G89.4 - Chronic pain syndrome (4) Cocaine use disorder: Status: Chronic Code(s): F14.10 - Cocaine abuse, uncomplicated (5) Acute alteration in mental status: Status: Resolved Code(s): R41.82 - Altered mental status, unspecified (6) Multifactorial gait disorder: Status: Chronic Code(s): R26.89 - Other abnormalities of gait and mobility (7) Diabetes: Status: Acute Code(s): E11.9 - Type 2 diabetes mellitus without complications (8) HTN (hypertension): Code(s): I10 - Essential (primary) hypertension Plan HPI: Pt is a 61 yo Male with a history of MDD, chronic back and knee pain, ambulates in a wheelchair and long history of crack cocaine abuse who currently who presents for worsening depression and SI in the face of relapsing on crack cocaine And dealing with chronic pain.? Patient reports that pain is a major trigger for him relapsing But also agrees that cocaine addiction keeps him from pursuing actual treatment for any of his issues.? He agrees to trial of Suboxone to see if it can help with pain.? He also asks for help with follow-up however minimizes his long history of poor adherence with medications and follow-up post discharges. Pt is working with [facility]. Hospital course: 10/02 tearful, depressed with SI; started to Suboxone p.r.n. for pain.? Patient agrees that he typically stabilizes on current medication regimen so will not change anything other than increasing Lamictal 10/03 remains tearful, depressed and talking about suicide.? Most of his Angst is focused on his physical disability and the challenges of it.? Patient acknowledges that he both asks for and refuses help to which he says i'm f-kd in the head doc... Increasing Suboxone frequency to 4 times a day; adding Seroquel 25 mg daily to see if it can take the edge off emotional Angst. 10/04 sudden onset confusion; unclear etiology.? Neurology gave recommendations in Dr. Verduzco following pt 10/07 confusion resolved; will follow-up with Dr. Verduzco regarding neurology's recommendations.? Patient remains depressed but reports mood is a little better and SI less intense.? Team discussed patient's situation and chronic relapse and dysregulation with chronic SI.? Patient has frequent readmissions.? Team agrees that patient will strongly benefit from increased outpatient supports and a supportive living environment and will thus pursue assisted living.? Although patient has improved, he will be returning to the exact same environment and thus remains at risk for continued relapse and continued readmissions. Patient remains very concerned that going back to current living situation will resulted him quickly relapsing, disc regulating and becoming suicidal 10/09 Patient remains intermittently suicidal with hopeless feelings feeling, discouraged about where his life is. Feels he needs assisted living situation And feels a become suicidal if he goes home. Team discussed this and agree that patient is struggling to except outside support; without a more structured living situation will likely continue to relapse and get readmitted and thus team supports patient's request for help getting into assisted living. 10/10 SI but passive And says he does not want to . Willing to try an tam hopeless thinking. Encouraged to get out in the milieu more. Continues to want assisted living PLAN: CV? 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 Shahid recs appreciated; Dr. Verduzco following pt and recommends following: -Hold off for now CTA of brain and neck; reconsider if confustion reappears -Echocardiogram done on 04/30/21 (see below) -no Baby aspirin given hx of gI Bleed HTN: continue metoprolol succinate XR 24/hour? 25 mg PO BEDTIME Added Lisinopril 5mg daily Chronic pain: increase total daily allotment of Suboxone 4/1 mg q4h PRN (max does of 4 per day) for chronic pain HLD: atorvastatin 40 mg tablet PO BEDTIME fenofibrate 54 mg PO QAM magnesium oxide 400 mgPO QAM GERD Omeprazole 40mg (pantoprazole at home) Sudden onset Confusion:??REsolved -Per Dr. 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 Verduzco who is following Head CT 10/04/21 IMPRESSION: No acute intracranial pathology. EEG 10/04/21 IMPRESSION:? Mild slowing with no evidence of seizure disorder. Transthoracic Echocardiogram 04/30/21 Procedure(s): CA echo transthoracic complete Conclusions: -? 1. Technically limited study with off axis views? 2. LV systolic function overall appears to be normal with LVEF of 55-60% ? 3. Mild aortic regurgitation ? 4.? Normal calculated RV systolic pressure ? 5.? No gross pericardial effusion? ? ? I spent minutes with the patient and/or on the patient floor today, greater than?50% of which was spent counseling/coordinating care. Patient educated on: diagnosis and therapeutic strategies Informed Consent: understands Reason for contiued inpatient stay Substantial Risk for: rapid decompensation
[2021-10-10 17:39] LABS: Glucose, Whole Blood 201 mg/dL (60-115)
[2021-10-10 19:44] VITALS: BP 116/77; PULSE 80
[2021-10-10] MEDS: lamoTRIgine 25 MG TABLET 50 MG PO (19:47)
[2021-10-10] MEDS: Docusate Sodium 100 MG CAPSULE 200 MG PO (19:48)
[2021-10-10] MEDS: QUEtiapine Fumarate 300 MG TABLET PO (19:48)
[2021-10-10] MEDS: Atorvastatin Calcium 40 MG TABLET PO (19:48)
[2021-10-10] MEDS: Metoprolol Succinate ER 25 MG TAB.ER.24H PO (19:49)
[2021-10-10] MEDS: Magnesium Citrate 300 ML SOLUTION PO (20:20)
[2021-10-11] MEDS: Buprenorphine/Naloxone 4/1 mg FILM 1 FILM SUBLINGUAL ×4 (03:46→23:19)
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
[2021-10-11 06:00] VITALS: BP 131/74; PULSE 74; RESP 14; TEMP 36.3; O2SAT 94
[2021-10-11] MEDS: Omeprazole 20 MG CAPSULE.DR PO (06:35)
[2021-10-11 06:48] LABS: Glucose, Whole Blood 166 mg/dL (60-115)
[2021-10-11] MEDS: lisinopriL 5 MG TABLET PO (08:32)
[2021-10-11] MEDS: glyBURIDE 5 MG TABLET PO (08:32)
[2021-10-11] MEDS: Magnesium Oxide 400 MG TABLET PO (08:32)
[2021-10-11] MEDS: Fenofibrate 54 MG TABLET PO (08:32)
[2021-10-11] MEDS: Gabapentin 400 MG CAPSULE 800 MG PO ×3 (08:32→20:16)
[2021-10-11] MEDS: metFORMIN HCl ER 500 MG TAB.ER.24H 1000 MG PO ×2 (08:32→20:16)
[2021-10-11] MEDS: QUEtiapine Fumarate 25 MG TABLET PO (08:32)
[2021-10-11] MEDS: DULoxetine HCl 60 MG CAPSULE.DR PO (08:33)
--- NOTE | 2021-10-11 17:23 | HO.PSYCHPN ---
Subjective Subjective Date of Service: 10/11/21 Reason For Visit: SI Interim History: late entry for patient seen on 10/11 Patient out in the milieu today making a point to say hello to this play writer. Patient feels like he is in somewhat better mood and affect is indeed brighter. Discussing it SI this is chronic and comes and goes with varying intensity depending on his mood and situation. Regarding somewhat improved mood patient feels that time has been helpful. Patient interacting with peers Mental Status Exam Mental Status Exam Narrative: Pt is alert; oriented; behavior is cooperative, calm; dressed in hospital gown, bald head, scruffy perez and marginal hygiene; mood is described as less [depressed] and affect congruent, brighter; eye contact appropriate; Speech is hard to understand due to speech impediment or mumbling which is baseline; otherwise, normal rate, volume and prosody and not pressured; no psychomotor agitation/retardation present; thought process goal directed; Thought content is battling hopeless feelings; worries about his life, chronic pain, and tx, changing living situation; intermittent SI but passive, no intent or plans; no HI. There is no evidence of perceptual disturbance. Patients insight and judgment are impaired but improving. Diagnostics Vital Signs (24Hr): Vital Signs - 24 hr 10/11/21 20:00 10/12/21 08:00 Temperature 98.2 F Pulse Rate 95 86 Respiratory Rate 16 Blood Pressure 125/85 138/74 Pulse Oximetry 97 Oxygen Delivery Method Room Air BMI result Body Mass Index 26.6 Labs Results: 10/04/21 10:32 10/12/21 07:00 Labs: Laboratory Results - last 48 hr 10/10/21 10/11/21 10/11/21 17:34 06:44 17:56 Sodium Potassium Chloride Carbon Dioxide Anion Gap BUN Creatinine Estim Creat Clear Calc Estimated GFR POC Glucose 201 H 166 H 128 H Random Glucose Calcium 10/12/21 10/12/21 06:21 07:00 Sodium 134 L Potassium 4.3 Chloride 100 Carbon Dioxide 27 Anion Gap 11 L BUN 8 L Creatinine 0.80 Estim Creat Clear Calc 99.4 Estimated GFR > 60 POC Glucose 103 Random Glucose 105 D Calcium 8.6 Imaging Radiology Impressions: ITS Impressions Head CT 10/04/21 05:36 IMPRESSION: No acute intracranial pathology. Medications Medications Current Medications Acetaminophen (Acetaminophen 325 Mg Tablet) 650 mg PO Q6H PRN PRN Reason: Headache/Pain Mild Scale (1-3) Al Hydroxide/Mg Hydroxide (Magnesium Hydrox/Alum Hydrox 30 Ml Oral.Susp) 30 ml PO Q6H PRN PRN Reason: Heartburn/Nausea Atorvastatin Calcium (Atorvastatin Calcium 40 Mg Tablet) 40 mg PO BEDTIME [facility] Last Admin: 10/11/21 20:16 Dose: 40 mg Buprenorphine/Naloxone (Buprenorphine/Naloxone 4/1 Mg Film) 1 film SUBLINGUAL Q4H PRN PRN Reason: mod to severe pain Last Admin: 10/12/21 15:11 Dose: 1 film Docusate Sodium (Docusate Sodium 100 Mg Capsule) 200 mg PO BEDTIME [facility] Last Admin: 10/11/21 20:16 Dose: 200 mg Duloxetine HCl (Duloxetine Hcl 60 Mg Capsule.Dr) 60 mg PO DAILY [facility] Last Admin: 10/12/21 09:36 Dose: 60 mg Fenofibrate (Fenofibrate 54 Mg Tablet) 54 mg PO DAILY [facility] Last Admin: 10/12/21 09:36 Dose: 54 mg Gabapentin (Gabapentin 400 Mg Capsule) 800 mg PO TID [facility] Last Admin: 10/12/21 15:11 Dose: 800 mg Glyburide (Glyburide 5 Mg Tablet) 5 mg PO DAILY [facility] Last Admin: 10/12/21 09:36 Dose: 5 mg Hydroxyzine HCl (Hydroxyzine Hcl 25 Mg Tablet) 25 mg PO Q6H PRN PRN Reason: Anxiety Last Admin: 10/12/21 09:36 Dose: 25 mg Lamotrigine (Lamotrigine 25 Mg Tablet) 50 mg PO BEDTIME [facility] Last Admin: 10/11/21 20:16 Dose: 50 mg Lisinopril (Lisinopril 5 Mg Tablet) 5 mg PO DAILY [facility]; Protocol Last Admin: 10/12/21 09:36 Dose: 5 mg Magnesium Hydroxide (Milk Of Magnesia 30 Ml Oral.Susp) 30 ml PO DAILY PRN PRN Reason: Constipation Last Admin: 10/10/21 10:56 Dose: 30 ml Magnesium Oxide (Magnesium Oxide 400 Mg Tablet) 400 mg PO DAILY [facility] Last Admin: 10/12/21 09:36 Dose: 400 mg Metformin HCl (Metformin Hcl Er 500 Mg Tab.Er.24h) 1,000 mg PO BID [facility] Last Admin: 10/12/21 09:36 Dose: 1,000 mg Metoprolol Succinate (Metoprolol Succinate Er 25 Mg Tab.Er.24h) 25 mg PO BEDTIME [facility]; Protocol Last Admin: 10/11/21 20:16 Dose: 25 mg Nicotine Polacrilex (Nicotine Polacrilex 2 Mg Gum) 4 mg BUCCAL Q2H PRN PRN Reason: Nicotine Cravings Omeprazole (Omeprazole 20 Mg Capsule.Dr) 20 mg PO DAILY@0630 [facility] Last Admin: 10/12/21 06:39 Dose: 20 mg Quetiapine Fumarate (Quetiapine Fumarate 300 Mg Tablet) 300 mg PO BEDTIME [facility] Last Admin: 10/11/21 20:16 Dose: 300 mg Quetiapine Fumarate (Quetiapine Fumarate 25 Mg Tablet) 25 mg PO DAILY [facility] Last Admin: 10/12/21 09:36 Dose: 25 mg Trazodone HCl (Trazodone Hcl 50 Mg Tablet) 50 mg PO BEDTIME PRN PRN Reason: Insomnia Last Admin: 10/11/21 20:21 Dose: 50 mg Allergies Allergies Allergy/AdvReac Type Severity Reaction Status Date / Time No Known Allergies Allergy Verified 05/31/21 11:24 Assessment & Plan Assessment & Plan (1) MDD (major depressive disorder), recurrent episode, moderate: Status: Chronic Code(s): F33.1 - Major depressive disorder, recurrent, moderate (2) Opioid use disorder, mild, in sustained remission: Status: Acute Code(s): F11.11 - Opioid abuse, in remission (3) Chronic pain syndrome: Status: Chronic Code(s): G89.4 - Chronic pain syndrome (4) Cocaine use disorder: Status: Chronic Code(s): F14.10 - Cocaine abuse, uncomplicated (5) Acute alteration in mental status: Status: Resolved Code(s): R41.82 - Altered mental status, unspecified (6) Multifactorial gait disorder: Status: Chronic Code(s): R26.89 - Other abnormalities of gait and mobility (7) Diabetes: Status: Acute Code(s): E11.9 - Type 2 diabetes mellitus without complications (8) HTN (hypertension): Code(s): I10 - Essential (primary) hypertension Plan HPI: Pt is a 61 yo Male with a history of MDD, chronic back and knee pain, ambulates in a wheelchair and long history of crack cocaine abuse who currently who presents for worsening depression and SI in the face of relapsing on crack cocaine And dealing with chronic pain.? Patient reports that pain is a major trigger for him relapsing But also agrees that cocaine addiction keeps him from pursuing actual treatment for any of his issues.? He agrees to trial of Suboxone to see if it can help with pain.? He also asks for help with follow-up however minimizes his long history of poor adherence with medications and follow-up post discharges. Pt is working with [facility]. Hospital course: 10/02 tearful, depressed with SI; started to Suboxone p.r.n. for pain.? Patient agrees that he typically stabilizes on current medication regimen so will not change anything other than increasing Lamictal 10/03 remains tearful, depressed and talking about suicide.? Most of his Angst is focused on his physical disability and the challenges of it.? Patient acknowledges that he both asks for and refuses help to which he says i'm f-kd in the head doc... Increasing Suboxone frequency to 4 times a day; adding Seroquel 25 mg daily to see if it can take the edge off emotional Angst. 10/04 sudden onset confusion; unclear etiology.? Neurology gave recommendations in Dr. Verduzco following pt 10/07 confusion resolved; will follow-up with Dr. Verduzco regarding neurology's recommendations.? Patient remains depressed but reports mood is a little better and SI less intense.? Team discussed patient's situation and chronic relapse and dysregulation with chronic SI.? Patient has frequent readmissions.? Team agrees that patient will strongly benefit from increased outpatient supports and a supportive living environment and will thus pursue assisted living.? Although patient has improved, he will be returning to the exact same environment and thus remains at risk for continued relapse and continued readmissions. Patient remains very concerned that going back to current living situation will resulted him quickly relapsing, disc regulating and becoming suicidal 10/09 Patient remains intermittently suicidal with hopeless feelings feeling, discouraged about where his life is.? Feels he needs assisted living situation And feels a become suicidal if he goes home.? Team discussed this and agree that patient is struggling to except outside support; without a more structured living situation will likely continue to relapse and get readmitted and thus team supports patient's request for help getting into assisted living. 10/10 SI but passive And says he does not want to .? Willing to try an tam hopeless thinking.? Encouraged to get out in the milieu more.? Continues to want assisted living 10/11 Improved mood with brighter affect; patient out in the milieu interacting with others. Not sure if this is due to decision to go to assisted living or just that time has taken its course and depression abated. Pt remains at risk for rapid decompensation. Will continue to monitor PLAN: CV? 1:1 due to wheelchair Depression: SW application to CSS/substance abuse programs Seroquel 25mg daily titrating Lamictal to 50 mg; play writer reviewed risks/side effects including risk for Mitchell Chris's rash which patient understands and knows how to manage this medication duloxetine delayed release 60 mg PO QAM quetiapine 300 mg PO BEDTIME Hyperglycemia: recommends adding Glyburide 5mg daily before breakfast Metformin HCl 1,000 mg PO BID Chronic right parieto-occipital cerebral infarction/chronic cerebellar atrophy: Dr. Shahid recs appreciated; Dr. Verduzco following pt and recommends following: -Hold off for now CTA of brain and neck; reconsider if confustion reappears -Echocardiogram done on 04/30/21 (see below) -no Baby aspirin given hx of gI Bleed HTN: continue metoprolol succinate XR 24/hour? 25 mg PO BEDTIME Added Lisinopril 5mg daily Chronic pain: increase total daily allotment of Suboxone 4/1 mg q4h PRN (max does of 4 per day) for chronic pain HLD: atorvastatin 40 mg tablet PO BEDTIME fenofibrate 54 mg PO QAM magnesium oxide 400 mgPO QAM GERD Omeprazole 40mg (pantoprazole at home) Sudden onset Confusion:??REsolved -Per Dr. 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 Verduzco who is following Head CT 10/04/21 IMPRESSION: No acute intracranial pathology. EEG 10/04/21 IMPRESSION:? Mild slowing with no evidence of seizure disorder. Transthoracic Echocardiogram 04/30/21 Procedure(s): CA echo transthoracic complete Conclusions: -? 1. Technically limited study with off axis views? 2. LV systolic function overall appears to be normal with LVEF of 55-60% ? 3. Mild aortic regurgitation ? 4.? Normal calculated RV systolic pressure ? 5.? No gross pericardial effusion? ? ? I spent minutes with the patient and/or on the patient floor today, greater than?50% of which was spent counseling/coordinating care. Patient educated on: diagnosis Informed Consent: understands Reason for contiued inpatient stay Substantial Risk for: rapid decompensation
[2021-10-11 18:04] LABS: Glucose, Whole Blood 128 mg/dL (60-115)
[2021-10-11 20:00] VITALS: BP 125/85; PULSE 95
[2021-10-11] MEDS: QUEtiapine Fumarate 300 MG TABLET PO (20:16)
[2021-10-11] MEDS: Docusate Sodium 100 MG CAPSULE 200 MG PO (20:16)
[2021-10-11] MEDS: lamoTRIgine 25 MG TABLET 50 MG PO (20:16)
[2021-10-11] MEDS: Metoprolol Succinate ER 25 MG TAB.ER.24H PO (20:16)
[2021-10-11] MEDS: Atorvastatin Calcium 40 MG TABLET PO (20:16)
[2021-10-11] MEDS: traZODone HCL 50 MG TABLET PO (20:21)
[2021-10-12 06:26] LABS: Glucose, Whole Blood 103 mg/dL (60-115)
[2021-10-12] MEDS: Buprenorphine/Naloxone 4/1 mg FILM 1 FILM SUBLINGUAL ×4 (06:39→19:29)
[2021-10-12] MEDS: Omeprazole 20 MG CAPSULE.DR PO (06:39)
[2021-10-12 07:23] LABS: Anion Gap 11 (12-20); Blood Urea Nitrogen 8 mg/dL (9-16); Calcium 8.6 mg/dL (8.4-10.2); Carbon Dioxide 27 mmol/L (22-29); Chloride 100 mmol/L (96-108); Creatinine Clr Calc Pharmacy 99.4; Estimated Glomerular Filt Rate > 60; Glucose Random 105 mg/dL (60-115); Potassium 4.3 mmol/L (3.3-5.1); Sodium 134 mmol/L (135-145)
[2021-10-12 08:00] VITALS: BP 138/74; PULSE 86; RESP 16; TEMP 36.8; O2SAT 97
[2021-10-12] MEDS: lisinopriL 5 MG TABLET PO (09:36)
[2021-10-12] MEDS: QUEtiapine Fumarate 25 MG TABLET PO (09:36)
[2021-10-12] MEDS: Gabapentin 400 MG CAPSULE 800 MG PO ×3 (09:36→20:29)
[2021-10-12] MEDS: hydrOXYzine HCL 25 MG TABLET PO (09:36)
[2021-10-12] MEDS: Magnesium Oxide 400 MG TABLET PO (09:36)
[2021-10-12] MEDS: Fenofibrate 54 MG TABLET PO (09:36)
[2021-10-12] MEDS: glyBURIDE 5 MG TABLET PO (09:36)
[2021-10-12] MEDS: metFORMIN HCl ER 500 MG TAB.ER.24H 1000 MG PO ×2 (09:36→20:29)
[2021-10-12] MEDS: DULoxetine HCl 60 MG CAPSULE.DR PO (09:36)
--- NOTE | 2021-10-12 17:25 | HO.PSYCHPN ---
Subjective Subjective Date of Service: 10/12/21 Reason For Visit: SI Interim History: Patient reports that mood is better and denies SI. Again out in milue throughout the day, joking with staff and peers. He does feel that time has played a significant role in his depression getting better which he says is typical for him. Patient said that he is been thinking very much about what to do with his living situation and wanted to discuss it further. Patient has become hesitant to go to assisted living. He wants to stay sober but he says he knows himself and is worried that if he relapses he could get kicked out of assisted living and then would be homeless which to him feels devastating. He says if he has apartment at least he will have a place to live. He also worries about not having any money at all for himself given that looked assisted living would take the majority of his disability. Patient said that what he plans to do, should he decide to go back to his apartment, is to have a direct deposit taken out of his monthly check that goes directly to pain rent so that there is no risk it will be spent on cocaine. Energy Derivatives Trader Gently challenged this idea and discussed how patient has been feeling very lonely and his apartment and that it is possible an assisted living situation would give him a community to be around; also the increased support would help him to stay sober. Patient appreciated input And said he continued to think about it, but is heavily leaning towards going back to his apartment; he says that it is his life and he is the 1 has to live with the consequences of his decisions good or bad. Energy Derivatives Trader agrees that There is not a typewriters functional tester wrong decision. Patient Expresses feeling guilty that his treatment team has spent time trying to find an assisted living situation; however Energy Deriv[employer] Trader reassured patient that it is understood this is a difficult choice and that it is his life. Diagnostics Vital Signs (24Hr): Vital Signs - 24 hr 10/11/21 20:00 10/12/21 08:00 Temperature 98.2 F Pulse Rate 95 86 Respiratory Rate 16 Blood Pressure 125/85 138/74 Pulse Oximetry 97 Oxygen Delivery Method Room Air BMI result Body Mass Index 26.6 Labs Results: 10/04/21 10:32 10/12/21 07:00 Labs: Laboratory Results - last 48 hr 10/10/21 10/11/21 10/11/21 17:34 06:44 17:56 Sodium Potassium Chloride Carbon Dioxide Anion Gap BUN Creatinine Estim Creat Clear Calc Estimated GFR POC Glucose 201 H 166 H 128 H Random Glucose Calcium 10/12/21 10/12/21 06:21 07:00 Sodium 134 L Potassium 4.3 Chloride 100 Carbon Dioxide 27 Anion Gap 11 L BUN 8 L Creatinine 0.80 Estim Creat Clear Calc 99.4 Estimated GFR > 60 POC Glucose 103 Random Glucose 105 D Calcium 8.6 Imaging Radiology Impressions: ITS Impressions Head CT 10/04/21 05:36 IMPRESSION: No acute intracranial pathology. Medications Medications Current Medications Acetaminophen (Acetaminophen 325 Mg Tablet) 650 mg PO Q6H PRN PRN Reason: Headache/Pain Mild Scale (1-3) Al Hydroxide/Mg Hydroxide (Magnesium Hydrox/Alum Hydrox 30 Ml Oral.Susp) 30 ml PO Q6H PRN PRN Reason: Heartburn/Nausea Atorvastatin Calcium (Atorvastatin Calcium 40 Mg Tablet) 40 mg PO BEDTIME [facility] Last Admin: 10/11/21 20:16 Dose: 40 mg Buprenorphine/Naloxone (Buprenorphine/Naloxone 4/1 Mg Film) 1 film SUBLINGUAL Q4H PRN PRN Reason: mod to severe pain Last Admin: 10/12/21 15:11 Dose: 1 film Docusate Sodium (Docusate Sodium 100 Mg Capsule) 200 mg PO BEDTIME SHARA Last Admin: 10/11/21 20:16 Dose: 200 mg Duloxetine HCl (Duloxetine Hcl 60 Mg Capsule.Dr) 60 mg PO DAILY [facility] Last Admin: 10/12/21 09:36 Dose: 60 mg Fenofibrate (Fenofibrate 54 Mg Tablet) 54 mg PO DAILY SHARA Last Admin: 10/12/21 09:36 Dose: 54 mg Gabapentin (Gabapentin 400 Mg Capsule) 800 mg PO TID [facility] Last Admin: 10/12/21 15:11 Dose: 800 mg Glyburide (Glyburide 5 Mg Tablet) 5 mg PO DAILY [facility] Last Admin: 10/12/21 09:36 Dose: 5 mg Hydroxyzine HCl (Hydroxyzine Hcl 25 Mg Tablet) 25 mg PO Q6H PRN PRN Reason: Anxiety Last Admin: 10/12/21 09:36 Dose: 25 mg Lamotrigine (Lamotrigine 25 Mg Tablet) 50 mg PO BEDTIME [facility] Last Admin: 10/11/21 20:16 Dose: 50 mg Lisinopril (Lisinopril 5 Mg Tablet) 5 mg PO DAILY [facility]; Protocol Last Admin: 10/12/21 09:36 Dose: 5 mg Magnesium Hydroxide (Milk Of Magnesia 30 Ml Oral.Susp) 30 ml PO DAILY PRN PRN Reason: Constipation Last Admin: 10/10/21 10:56 Dose: 30 ml Magnesium Oxide (Magnesium Oxide 400 Mg Tablet) 400 mg PO DAILY [facility] Last Admin: 10/12/21 09:36 Dose: 400 mg Metformin HCl (Metformin Hcl Er 500 Mg Tab.Er.24h) 1,000 mg PO BID [facility] Last Admin: 10/12/21 09:36 Dose: 1,000 mg Metoprolol Succinate (Metoprolol Succinate Er 25 Mg Tab.Er.24h) 25 mg PO BEDTIME [facility]; Protocol Last Admin: 10/11/21 20:16 Dose: 25 mg Nicotine Polacrilex (Nicotine Polacrilex 2 Mg Gum) 4 mg BUCCAL Q2H PRN PRN Reason: Nicotine Cravings Omeprazole (Omeprazole 20 Mg Capsule.Dr) 20 mg PO DAILY@0630 [facility] Last Admin: 10/12/21 06:39 Dose: 20 mg Quetiapine Fumarate (Quetiapine Fumarate 300 Mg Tablet) 300 mg PO BEDTIME [facility] Last Admin: 10/11/21 20:16 Dose: 300 mg Quetiapine Fumarate (Quetiapine Fumarate 25 Mg Tablet) 25 mg PO DAILY [facility] Last Admin: 10/12/21 09:36 Dose: 25 mg Trazodone HCl (Trazodone Hcl 50 Mg Tablet) 50 mg PO BEDTIME PRN PRN Reason: Insomnia Last Admin: 10/11/21 20:21 Dose: 50 mg Allergies Allergies Allergy/AdvReac Type Severity Reaction Status Date / Time No Known Allergies Allergy Verified 05/31/21 11:24 Assessment & Plan Assessment & Plan (1) MDD (major depressive disorder), recurrent episode, moderate: Status: Chronic Code(s): F33.1 - Major depressive disorder, recurrent, moderate (2) Opioid use disorder, mild, in sustained remission: Status: Acute Code(s): F11.11 - Opioid abuse, in remission (3) Chronic pain syndrome: Status: Chronic Code(s): G89.4 - Chronic pain syndrome (4) Cocaine use disorder: Status: Chronic Code(s): F14.10 - Cocaine abuse, uncomplicated (5) Acute alteration in mental status: Status: Resolved Code(s): R41.82 - Altered mental status, unspecified (6) Multifactorial gait disorder: Status: Chronic Code(s): R26.89 - Other abnormalities of gait and mobility (7) Diabetes: Status: Acute Code(s): E11.9 - Type 2 diabetes mellitus without complications (8) HTN (hypertension): Code(s): I10 - Essential (primary) hypertension Plan HPI: Pt is a 61 yo Male with a history of MDD, chronic back and knee pain, ambulates in a wheelchair and long history of crack cocaine abuse who currently who presents for worsening depression and SI in the face of relapsing on crack cocaine And dealing with chronic pain.? Patient reports that pain is a major trigger for him relapsing But also agrees that cocaine addiction keeps him from pursuing actual treatment for any of his issues.? He agrees to trial of Suboxone to see if it can help with pain.? He also asks for help with follow-up however minimizes his long history of poor adherence with medications and follow-up post discharges. Pt is working with [facility]. Hospital course: 10/02 tearful, depressed with SI; started to Suboxone p.r.n. for pain.? Patient agrees that he typically stabilizes on current medication regimen so will not change anything other than increasing Lamictal 10/03 remains tearful, depressed and talking about suicide.? Most of his Angst is focused on his physical disability and the challenges of it.? Patient acknowledges that he both asks for and refuses help to which he says i'm f-kd in the head doc... Increasing Suboxone frequency to 4 times a day; adding Seroquel 25 mg daily to see if it can take the edge off emotional Angst. 10/04 sudden onset confusion; unclear etiology.? Neurology gave recommendations in Dr. Verduzco following pt 10/07 confusion resolved; will follow-up with Dr. Verduzco regarding neurology's recommendations.? Patient remains depressed but reports mood is a little better and SI less intense.? Team discussed patient's situation and chronic relapse and dysregulation with chronic SI.? Patient has frequent readmissions.? Team agrees that patient will strongly benefit from increased outpatient supports and a supportive living environment and will thus pursue assisted living.? Although patient has improved, he will be returning to the exact same environment and thus remains at risk for continued relapse and continued readmissions. Patient remains very concerned that going back to current living situation will resulted him quickly relapsing, disc regulating and becoming suicidal 10/09 Patient remains intermittently suicidal with hopeless feelings feeling, discouraged about where his life is.? Feels he needs assisted living situation And feels a become suicidal if he goes home.? Team discussed this and agree that patient is struggling to except outside support; without a more structured living situation will likely continue to relapse and get readmitted and thus team supports patient's request for help getting into assisted living. 10/10 SI but passive And says he does not want to .? Willing to try an tam hopeless thinking.? Encouraged to get out in the milieu more.? Continues to want assisted living 10/11 Improved mood with brighter affect; patient out in the milieu interacting with others.? Not sure if this is due to decision to go to assisted living or just that time has taken its course and depression abated. Pt remains at risk for rapid decompensation.? Will continue to monitor 10/12 Patient's mood improved and depression appears to be abating; no SI and continued brighter affect; patient again out in the milieu interacting with others. Staff agrees that patient seems much better. Patient continues to agree with increasing Lamictal given that he is prone towards mood lability and that higher dose can help improve stability. Patient is heavily leaning towards going back to his apartment. He says he has been thinking about it over and over and he is concluding help probably be happier and safer if he goes back to his apartment, very worried about getting kicked out of assisted living and ending up homeless if he were to ever relapse. [employer] Deriv[employer] Trader discussed pros and cons and patient was receptive; says will still think about it. Patient is not sure if he can return to his apartment at this time since he has months of unpaid rent (SW had mentioned this as well). Given that patient's improved mood is still very new and fragile, it is typewriters functional tester's opinion that patient is not safe for discharge at this time given that outpatient services and housing is not yet secured; if patient discharged and end up homeless, patient would quickly decompensate. Rather pt is to remain on unit to allow for stable dispo planning. Also, want to increase lamictal as he's now ready for next titration (takes 2 weeks at 25mg before can increase dose). PLAN: CV? 1:1 due to wheelchair Depression: SW application to CSS/substance abuse programs Seroquel 25mg daily titrating Lamictal to 50 mg; typewriters functional tester reviewed risks/side effects including risk for Mitchell Chris's rash which patient understands and knows how to manage this medication duloxetine delayed release 60 mg PO QAM quetiapine 300 mg PO BEDTIME Hyperglycemia: recommends adding Glyburide 5mg daily before breakfast Metformin HCl 1,000 mg PO BID Chronic right parieto-occipital cerebral infarction/chronic cerebellar atrophy: Dr. Shahid recs appreciated; Dr. Verduzco following pt and recommends following: -Hold off for now CTA of brain and neck; reconsider if confustion reappears -Echocardiogram done on 04/30/21 (see below) -no Baby aspirin given hx of gI Bleed HTN: continue metoprolol succinate XR 24/hour? 25 mg PO BEDTIME Added Lisinopril 5mg daily Chronic pain: increase total daily allotment of Suboxone 4/1 mg q4h PRN (max does of 4 per day) for chronic pain HLD: atorvastatin 40 mg tablet PO BEDTIME fenofibrate 54 mg PO QAM magnesium oxide 400 mgPO QAM GERD Omeprazole 40mg (pantoprazole at home) Sudden onset Confusion:??REsolved -Per Dr. 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 Vedruzco who is following Head CT 10/04/21 IMPRESSION: No acute intracranial pathology. EEG 10/04/21 IMPRESSION:? Mild slowing with no evidence of seizure disorder. Transthoracic Echocardiogram 04/30/21 Procedure(s): CA echo transthoracic complete Conclusions: -? 1. Technically limited study with off axis views? 2. LV systolic function overall appears to be normal with LVEF of 55-60% ? 3. Mild aortic regurgitation ? 4.? Normal calculated RV systolic pressure ? 5.? No gross pericardial effusion? ? ? I spent minutes with the patient and/or on the patient floor today, greater than?50% of which was spent counseling/coordinating care. Patient educated on: diagnosis, medication risk/benefits, substance abuse and therapeutic strategies Informed Consent: understands Reason for contiued inpatient stay Substantial Risk for: rapid decompensation
[2021-10-12 17:57] VITALS: BP 136/74; PULSE 72; RESP 16; TEMP 36.4; O2SAT 95
[2021-10-12 20:12] LABS: Glucose, Whole Blood 133 mg/dL (60-115)
[2021-10-12 20:25] VITALS: BP 121/69; PULSE 77
[2021-10-12] MEDS: Metoprolol Succinate ER 25 MG TAB.ER.24H PO (20:29)
[2021-10-12] MEDS: Docusate Sodium 100 MG CAPSULE 200 MG PO (20:29)
[2021-10-12] MEDS: Atorvastatin Calcium 40 MG TABLET PO (20:29)
[2021-10-12] MEDS: traZODone HCL 50 MG TABLET PO (20:30)
[2021-10-12] MEDS: lamoTRIgine 25 MG TABLET 50 MG PO (20:30)
[2021-10-12] MEDS: QUEtiapine Fumarate 300 MG TABLET PO (20:30)
[2021-10-13] MEDS: Buprenorphine/Naloxone 4/1 mg FILM 1 FILM SUBLINGUAL ×4 (04:37→17:15)
[2021-10-13 06:41] LABS: Glucose, Whole Blood 125 mg/dL (60-115)
[2021-10-13] MEDS: metFORMIN HCl ER 500 MG TAB.ER.24H 1000 MG PO ×2 (08:49→20:14)
[2021-10-13] MEDS: Omeprazole 20 MG CAPSULE.DR PO (08:50)
[2021-10-13] MEDS: QUEtiapine Fumarate 25 MG TABLET PO (08:50)
[2021-10-13] MEDS: Fenofibrate 54 MG TABLET PO (08:50)
[2021-10-13] MEDS: hydrOXYzine HCL 25 MG TABLET PO (08:50)
[2021-10-13] MEDS: glyBURIDE 5 MG TABLET PO (08:50)
[2021-10-13] MEDS: lisinopriL 5 MG TABLET PO (08:50)
[2021-10-13] MEDS: Gabapentin 400 MG CAPSULE 800 MG PO ×3 (08:51→20:15)
[2021-10-13] MEDS: DULoxetine HCl 60 MG CAPSULE.DR PO (08:51)
[2021-10-13 08:54] VITALS: BP 134/76; PULSE 71; RESP 18; TEMP 36.8; O2SAT 97
[2021-10-13] MEDS: Magnesium Oxide 400 MG TABLET PO (08:56)
--- NOTE | 2021-10-13 15:09 | HO.PSYCHPN ---
Subjective Subjective Date of Service: 10/13/21 Reason For Visit: SI Interim History: Mood remains improved; no SI. Patient continues to want to go back to his apartment. Also does not want CSS feeling that his immobility is too much of a burden. Mental Status Exam Mental Status Exam Narrative: Pt is alert; oriented; behavior is cooperative, calm; dressed in hospital gown, bald head, scruffy perez and marginal hygiene; mood is described as good and affect congruent, brighter; eye contact appropriate; Speech is hard to understand due to speech impediment or mumbling which is baseline; otherwise, normal rate, volume and prosody and not pressured; no psychomotor agitation/retardation present; thought process goal directed; Thought content is battling hopeless feelings; chronic pain, and tx; intermittent SI but passive, no intent or plans; no HI. There is no evidence of perceptual disturbance. Patients insight and judgment are impaired fair. Diagnostics Vital Signs (24Hr): Vital Signs - 24 hr 10/14/21 19:55 10/15/21 06:00 Temperature 97.7 F 97.5 F Pulse Rate 83 67 Respiratory Rate 18 Blood Pressure 159/80 H 136/67 Pulse Oximetry 95 Oxygen Delivery Method Room Air BMI result Body Mass Index 26.6 Labs Results: 10/04/21 10:32 10/12/21 07:00 Labs: Laboratory Results - last 48 hr 10/13/21 10/14/21 10/14/21 20:12 05:52 20:12 POC Glucose 160 H 167 H 151 H 10/15/21 05:21 POC Glucose 112 Imaging Radiology Impressions: ITS Impressions Head CT 10/04/21 05:36 IMPRESSION: No acute intracranial pathology. Medications Medications Current Medications Acetaminophen (Acetaminophen 325 Mg Tablet) 650 mg PO Q6H PRN PRN Reason: Headache/Pain Mild Scale (1-3) Al Hydroxide/Mg Hydroxide (Magnesium Hydrox/Alum Hydrox 30 Ml Oral.Susp) 30 ml PO Q6H PRN PRN Reason: Heartburn/Nausea Atorvastatin Calcium (Atorvastatin Calcium 40 Mg Tablet) 40 mg PO BEDTIME SHARA Last Admin: 10/14/21 19:58 Dose: 40 mg Buprenorphine/Naloxone (Buprenorphine/Naloxone 4/1 Mg Film) 1 film SUBLINGUAL Q4H PRN PRN Reason: mod to severe pain Last Admin: 10/15/21 09:23 Dose: 1 film Docusate Sodium (Docusate Sodium 100 Mg Capsule) 200 mg PO BEDTIME [facility] Last Admin: 10/14/21 20:02 Dose: 200 mg Duloxetine HCl (Duloxetine Hcl 60 Mg Capsule.) 60 mg PO DAILY [facility] Last Admin: 10/15/21 09:23 Dose: 60 mg Fenofibrate (Fenofibrate 54 Mg Tablet) 54 mg PO DAILY [facility] Last Admin: 10/15/21 09:23 Dose: 54 mg Gabapentin (Gabapentin 400 Mg Capsule) 800 mg PO TID SHARA Last Admin: 10/15/21 09:23 Dose: 800 mg Glyburide (Glyburide 5 Mg Tablet) 5 mg PO DAILY [facility] Last Admin: 10/15/21 09:23 Dose: 5 mg Hydroxyzine HCl (Hydroxyzine Hcl 25 Mg Tablet) 25 mg PO Q6H PRN PRN Reason: Anxiety Last Admin: 10/15/21 09:23 Dose: 25 mg Lamotrigine (Lamotrigine 25 Mg Tablet) 50 mg PO BEDTIME SHARA Last Admin: 10/14/21 20:00 Dose: 50 mg Lisinopril (Lisinopril 5 Mg Tablet) 5 mg PO DAILY [facility]; Protocol Last Admin: 10/15/21 09:23 Dose: 5 mg Magnesium Hydroxide (Milk Of Magnesia 30 Ml Oral.Susp) 30 ml PO DAILY PRN PRN Reason: Constipation Last Admin: 10/10/21 10:56 Dose: 30 ml Magnesium Oxide (Magnesium Oxide 400 Mg Tablet) 400 mg PO DAILY [facility] Last Admin: 10/15/21 09:23 Dose: 400 mg Metformin HCl (Metformin Hcl Er 500 Mg Tab.Er.24h) 1,000 mg PO BID SHARA Last Admin: 10/15/21 09:23 Dose: 1,000 mg Metoprolol Succinate (Metoprolol Succinate Er 25 Mg Tab.Er.24h) 25 mg PO BEDTIME [facility]; Protocol Last Admin: 10/14/21 20:01 Dose: 25 mg Nicotine Polacrilex (Nicotine Polacrilex 2 Mg Gum) 4 mg BUCCAL Q2H PRN PRN Reason: Nicotine Cravings Omeprazole (Omeprazole 20 Mg Capsule.) 20 mg PO DAILY@0630 [facility] Last Admin: 10/15/21 05:17 Dose: 20 mg Quetiapine Fumarate (Quetiapine Fumarate 300 Mg Tablet) 300 mg PO BEDTIME [facility] Last Admin: 10/14/21 19:59 Dose: 300 mg Quetiapine Fumarate (Quetiapine Fumarate 25 Mg Tablet) 25 mg PO DAILY [facility]ARA Last Admin: 10/15/21 09:23 Dose: 25 mg Trazodone HCl (Trazodone Hcl 50 Mg Tablet) 50 mg PO BEDTIME PRN PRN Reason: Insomnia Last Admin: 10/14/21 20:00 Dose: 50 mg Allergies Allergies Allergy/AdvReac Type Severity Reaction Status Date / Time No Known Allergies Allergy Verified 05/31/21 11:24 Assessment & Plan Assessment & Plan (1) MDD (major depressive disorder), recurrent episode, moderate: Status: Chronic Code(s): F33.1 - Major depressive disorder, recurrent, moderate (2) Opioid use disorder, mild, in sustained remission: Status: Acute Code(s): F11.11 - Opioid abuse, in remission (3) Chronic pain syndrome: Status: Chronic Code(s): G89.4 - Chronic pain syndrome (4) Cocaine use disorder: Status: Chronic Code(s): F14.10 - Cocaine abuse, uncomplicated (5) Acute alteration in mental status: Status: Resolved Code(s): R41.82 - Altered mental status, unspecified (6) Multifactorial gait disorder: Status: Chronic Code(s): R26.89 - Other abnormalities of gait and mobility (7) Diabetes: Status: Acute Code(s): E11.9 - Type 2 diabetes mellitus without complications (8) HTN (hypertension): Code(s): I10 - Essential (primary) hypertension Plan HPI: Pt is a 61 yo Male with a history of MDD, chronic back and knee pain, ambulates in a wheelchair and long history of crack cocaine abuse who currently who presents for worsening depression and SI in the face of relapsing on crack cocaine And dealing with chronic pain.? Patient reports that pain is a major trigger for him relapsing But also agrees that cocaine addiction keeps him from pursuing actual treatment for any of his issues.? He agrees to trial of Suboxone to see if it can help with pain.? He also asks for help with follow-up however minimizes his long history of poor adherence with medications and follow-up post discharges. Pt is working with [facility]. Hospital course: 10/02 tearful, depressed with SI; started to Suboxone p.r.n. for pain.? Patient agrees that he typically stabilizes on current medication regimen so will not change anything other than increasing Lamictal 10/03 remains tearful, depressed and talking about suicide.? Most of his Angst is focused on his physical disability and the challenges of it.? Patient acknowledges that he both asks for and refuses help to which he says i'm f-kd in the head doc... Increasing Suboxone frequency to 4 times a day; adding Seroquel 25 mg daily to see if it can take the edge off emotional Angst. 10/04 sudden onset confusion; unclear etiology.? Neurology gave recommendations in Dr. Verduzco following pt 10/07 confusion resolved; will follow-up with Dr. Verduzco regarding neurology's recommendations.? Patient remains depressed but reports mood is a little better and SI less intense.? Team discussed patient's situation and chronic relapse and dysregulation with chronic SI.? Patient has frequent readmissions.? Team agrees that patient will strongly benefit from increased outpatient supports and a supportive living environment and will thus pursue assisted living.? Although patient has improved, he will be returning to the exact same environment and thus remains at risk for continued relapse and continued readmissions. Patient remains very concerned that going back to current living situation will resulted him quickly relapsing, disc regulating and becoming suicidal 10/09 Patient remains intermittently suicidal with hopeless feelings feeling, discouraged about where his life is.? Feels he needs assisted living situation And feels a become suicidal if he goes home.? Team discussed this and agree that patient is struggling to except outside support; without a more structured living situation will likely continue to relapse and get readmitted and thus team supports patient's request for help getting into assisted living. 10/10 SI but passive And says he does not want to .? Willing to try an tam hopeless thinking.? Encouraged to get out in the milieu more.? Continues to want assisted living 10/11 Improved mood with brighter affect; patient out in the milieu interacting with others.? Not sure if this is due to decision to go to assisted living or just that time has taken its course and depression abated. Pt remains at risk for rapid decompensation.? Will continue to monitor 10/12 Patient's mood improved and depression appears to be abating; no SI and continued brighter affect; patient again out in the milieu interacting with others. Staff agrees that patient seems much better. Patient continues to agree with increasing Lamictal given that he is prone towards mood lability and that higher dose can help improve stability. Patient is heavily leaning towards going back to his apartment. He says he has been thinking about it over and over and he is concluding help probably be happier and safer if he goes back to his apartment, very worried about getting kicked out of assisted living and ending up homeless if he were to ever relapse. [facility] Recovery Operator discussed pros and cons and patient was receptive; says will still think about it. Patient is not sure if he can return to his apartment at this time since he has months of unpaid rent (SW had mentioned this as well). Given that patient's improved mood is still very new and fragile, it is jingle writer's opinion that patient is not safe for discharge at this time given that outpatient services and housing is not yet secured; if patient discharged and end up homeless, patient would quickly decompensate. Rather pt is to remain on unit to allow for stable dispo planning. Also, want to increase lamictal as he's now ready for next titration (takes 2 weeks at 25mg before can increase dose). PLAN: CV? 1:1 due to wheelchair Depression: SW application to CSS/substance abuse programs Seroquel 25mg daily titrating Lamictal to 50 mg; jingle writer reviewed risks/side effects including risk for Mitchell Chris's rash which patient understands and knows how to manage this medication duloxetine delayed release 60 mg PO QAM quetiapine 300 mg PO BEDTIME Hyperglycemia: recommends adding Glyburide 5mg daily before breakfast Metformin HCl 1,000 mg PO BID Chronic right parieto-occipital cerebral infarction/chronic cerebellar atrophy: Dr. Shahid recreynaldo appreciated; Dr. Verduzco following pt and recommends following: -Hold off for now CTA of brain and neck; reconsider if confustion reappears -Echocardiogram done on 04/30/21 (see below) -no Baby aspirin given hx of gI Bleed HTN: continue metoprolol succinate XR 24/hour? 25 mg PO BEDTIME Added Lisinopril 5mg daily Chronic pain: increase total daily allotment of Suboxone 4/1 mg q4h PRN (max does of 4 per day) for chronic pain HLD: atorvastatin 40 mg tablet PO BEDTIME fenofibrate 54 mg PO QAM magnesium oxide 400 mgPO QAM GERD Omeprazole 40mg (pantoprazole at home) Sudden onset Confusion:??REsolved -Per Dr. 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 Verduzco who is following Head CT 10/04/21 IMPRESSION: No acute intracranial pathology. EEG 10/04/21 IMPRESSION:? Mild slowing with no evidence of seizure disorder. Transthoracic Echocardiogram 04/30/21 Procedure(s): CA echo transthoracic complete Conclusions: -? 1. Technically limited study with off axis views? 2. LV systolic function overall appears to be normal with LVEF of 55-60% ? 3. Mild aortic regurgitation ? 4.? Normal calculated RV systolic pressure ? 5.? No gross pericardial effusion? ? ? I spent minutes with the patient and/or on the patient floor today, greater than?50% of which was spent counseling/coordinating care. Patient educated on: substance abuse Informed Consent: understands Reason for contiued inpatient stay Substantial Risk for: rapid decompensation
[2021-10-13 18:00] VITALS: BP 121/76; PULSE 98; TEMP 36.8; O2SAT 98
[2021-10-13] MEDS: Atorvastatin Calcium 40 MG TABLET PO (20:14)
[2021-10-13] MEDS: QUEtiapine Fumarate 300 MG TABLET PO (20:14)
[2021-10-13] MEDS: Metoprolol Succinate ER 25 MG TAB.ER.24H PO (20:15)
[2021-10-13] MEDS: lamoTRIgine 25 MG TABLET 50 MG PO (20:15)
[2021-10-13] MEDS: traZODone HCL 50 MG TABLET PO (20:19)
[2021-10-13] MEDS: Docusate Sodium 100 MG CAPSULE 200 MG PO (20:19)
[2021-10-13 21:26] LABS: Glucose, Whole Blood 160 mg/dL (60-115)
[2021-10-14] MEDS: Buprenorphine/Naloxone 4/1 mg FILM 1 FILM SUBLINGUAL ×3 (04:15→15:50)
[2021-10-14] MEDS: Omeprazole 20 MG CAPSULE.DR PO (05:49)
[2021-10-14 05:57] LABS: Glucose, Whole Blood 167 mg/dL (60-115)
[2021-10-14 06:00] VITALS: BP 113/59; PULSE 76; RESP 18; TEMP 36.5; O2SAT 96
[2021-10-14] MEDS: metFORMIN HCl ER 500 MG TAB.ER.24H 1000 MG PO ×2 (07:50→19:59)
[2021-10-14] MEDS: Gabapentin 400 MG CAPSULE 800 MG PO ×3 (07:50→19:58)
[2021-10-14] MEDS: Magnesium Oxide 400 MG TABLET PO (07:51)
[2021-10-14] MEDS: QUEtiapine Fumarate 25 MG TABLET PO (07:51)
[2021-10-14] MEDS: Fenofibrate 54 MG TABLET PO (07:52)
[2021-10-14] MEDS: glyBURIDE 5 MG TABLET PO (07:52)
[2021-10-14] MEDS: DULoxetine HCl 60 MG CAPSULE.DR PO (07:52)
[2021-10-14] MEDS: lisinopriL 5 MG TABLET PO (07:52)
--- NOTE | 2021-10-14 13:13 | P.PNPSI_ITS ---
Subjective Subjective Date of Service: 10/14/21 Reason For Visit: SI Interim History: Late entry note for 10/14 Patient remains in good mood, no SI and wants to go back to his apartment. So blessing work on board and working to set up outpatient appointments and making sure patient can indeed return to his apartment. Mental Status Exam Mental Status Exam Narrative: Pt is alert; oriented; behavior is cooperative, calm; dressed in hospital gown, bald head, scruffy perez and marginal hygiene; mood is described as good and affect congruent, brighter; eye contact appropriate; Speech is hard to understand due to speech impediment or mumbling which is baseline; otherwise, normal rate, volume and prosody and not pressured; no psychomotor agitation/retardation present; thought process goal directed; Thought content is battling hopeless feelings; chronic pain, and tx; intermittent SI but passive, no intent or plans; no HI. There is no evidence of perceptual disturbance. Patients insight and judgment are impaired fair. Diagnostics Vital Signs (24Hr): Vital Signs - 24 hr 10/14/21 19:55 10/15/21 06:00 Temperature 97.7 F 97.5 F Pulse Rate 83 67 Respiratory Rate 18 Blood Pressure 159/80 H 136/67 Pulse Oximetry 95 Oxygen Delivery Method Room Air BMI result Body Mass Index 26.6 Labs Results: 10/04/21 10:32 10/12/21 07:00 Labs: Laboratory Results - last 48 hr 10/13/21 10/14/21 10/14/21 20:12 05:52 20:12 POC Glucose 160 H 167 H 151 H 10/15/21 05:21 POC Glucose 112 Imaging Radiology Impressions: ITS Impressions Head CT 10/04/21 05:36 IMPRESSION: No acute intracranial pathology. Medications Medications Current Medications Acetaminophen (Acetaminophen 325 Mg Tablet) 650 mg PO Q6H PRN PRN Reason: Headache/Pain Mild Scale (1-3) Al Hydroxide/Mg Hydroxide (Magnesium Hydrox/Alum Hydrox 30 Ml Oral.Susp) 30 ml PO Q6H PRN PRN Reason: Heartburn/Nausea Atorvastatin Calcium (Atorvastatin Calcium 40 Mg Tablet) 40 mg PO BEDTIME SHARA Last Admin: 10/14/21 19:58 Dose: 40 mg Buprenorphine/Naloxone (Buprenorphine/Naloxone 4/1 Mg Film) 1 film SUBLINGUAL Q4H PRN PRN Reason: mod to severe pain Last Admin: 10/15/21 09:23 Dose: 1 film Docusate Sodium (Docusate Sodium 100 Mg Capsule) 200 mg PO BEDTIME [facility] [place] Last Admin: 10/14/21 20:02 Dose: 200 mg Duloxetine HCl (Duloxetine Hcl 60 Mg Capsule.Dr) 60 mg PO DAILY [facility] [place] Last Admin: 10/15/21 09:23 Dose: 60 mg Fenofibrate (Fenofibrate 54 Mg Tablet) 54 mg PO DAILY [facility] [place] Last Admin: 10/15/21 09:23 Dose: 54 mg Gabapentin (Gabapentin 400 Mg Capsule) 800 mg PO TID [facility] [place] Last Admin: 10/15/21 09:23 Dose: 800 mg Glyburide (Glyburide 5 Mg Tablet) 5 mg PO DAILY [facility] [place] Last Admin: 10/15/21 09:23 Dose: 5 mg Hydroxyzine HCl (Hydroxyzine Hcl 25 Mg Tablet) 25 mg PO Q6H PRN PRN Reason: Anxiety Last Admin: 10/15/21 09:23 Dose: 25 mg Lamotrigine (Lamotrigine 25 Mg Tablet) 50 mg PO BEDTIME [facility] [place] Last Admin: 10/14/21 20:00 Dose: 50 mg Lisinopril (Lisinopril 5 Mg Tablet) 5 mg PO DAILY [facility] [place]; Protocol Last Admin: 10/15/21 09:23 Dose: 5 mg Magnesium Hydroxide (Milk Of Magnesia 30 Ml Oral.Susp) 30 ml PO DAILY PRN PRN Reason: Constipation Last Admin: 10/10/21 10:56 Dose: 30 ml Magnesium Oxide (Magnesium Oxide 400 Mg Tablet) 400 mg PO DAILY [facility] [place] Last Admin: 10/15/21 09:23 Dose: 400 mg Metformin HCl (Metformin Hcl Er 500 Mg Tab.Er.24h) 1,000 mg PO BID [facility] [place] Last Admin: 10/15/21 09:23 Dose: 1,000 mg Metoprolol Succinate (Metoprolol Succinate Er 25 Mg Tab.Er.24h) 25 mg PO BEDTIME [facility] [place]; Protocol Last Admin: 10/14/21 20:01 Dose: 25 mg Nicotine Polacrilex (Nicotine Polacrilex 2 Mg Gum) 4 mg BUCCAL Q2H PRN PRN Reason: Nicotine Cravings Omeprazole (Omeprazole 20 Mg Capsule.Dr) 20 mg PO DAILY@0630 [facility] [place] Last Admin: 10/15/21 05:17 Dose: 20 mg Quetiapine Fumarate (Quetiapine Fumarate 300 Mg Tablet) 300 mg PO BEDTIME [facility] [place] Last Admin: 10/14/21 19:59 Dose: 300 mg Quetiapine Fumarate (Quetiapine Fumarate 25 Mg Tablet) 25 mg PO DAILY [facility] [place] Last Admin: 10/15/21 09:23 Dose: 25 mg Trazodone HCl (Trazodone Hcl 50 Mg Tablet) 50 mg PO BEDTIME PRN PRN Reason: Insomnia Last Admin: 10/14/21 20:00 Dose: 50 mg Allergies Allergies Allergy/AdvReac Type Severity Reaction Status Date / Time No Known Allergies Allergy Verified 05/31/21 11:24 Assessment & Plan Assessment & Plan (1) MDD (major depressive disorder), recurrent episode, moderate: Status: Chronic Code(s): F33.1 - Major depressive disorder, recurrent, moderate (2) Opioid use disorder, mild, in sustained remission: Status: Acute Code(s): F11.11 - Opioid abuse, in remission (3) Chronic pain syndrome: Status: Chronic Code(s): G89.4 - Chronic pain syndrome (4) Cocaine use disorder: Status: Chronic Code(s): F14.10 - Cocaine abuse, uncomplicated (5) Acute alteration in mental status: Status: Resolved Code(s): R41.82 - Altered mental status, unspecified (6) Multifactorial gait disorder: Status: Chronic Code(s): R26.89 - Other abnormalities of gait and mobility (7) Diabetes: Status: Acute Code(s): E11.9 - Type 2 diabetes mellitus without complications (8) HTN (hypertension): Code(s): I10 - Essential (primary) hypertension Plan HPI: Pt is a 61 yo Male with a history of MDD, chronic back and knee pain, ambulates in a wheelchair and long history of crack cocaine abuse who currently who presents for worsening depression and SI in the face of relapsing on crack cocaine And dealing with chronic pain.? 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 He agrees to trial of Suboxone to see if it can help with pain.? He also asks for help with follow-up however minimizes his long history of poor adherence with medications and follow-up post discharges. Pt is working with [employer]. Hospital course: 10/02 tearful, depressed with SI; started to Suboxone p.r.n. for pain.? Patient agrees that he typically stabilizes on current medication regimen so will not change anything other than increasing Lamictal 10/03 remains tearful, depressed and talking about suicide.? Most of his Angst is focused on his physical disability and the challenges of it.? Patient acknowledges that he both asks for and refuses help to which he says i'm f-kd in the head doc... Increasing Suboxone frequency to 4 times a day; adding Seroquel 25 mg daily to see if it can take the edge off emotional Angst. 10/04 sudden onset confusion; unclear etiology.? Neurology gave recommendations in Dr. Verduzco following pt 10/07 confusion resolved; will follow-up with Dr. Verduzco regarding neurology's recommendations.? Patient remains depressed but reports mood is a little better and SI less intense.? Team discussed patient's situation and chronic relapse and dysregulation with chronic SI.? Patient has frequent readmissions.? Team agrees that patient will strongly benefit from increased outpatient supports and a supp ortive living environment and will thus pursue assisted living.? Although patient has improved, he will be returning to the exact same environment and thus remains at risk for continued relapse and continued readmissions. Patient remains very concerned that going back to current living situation will resulted him quickly relapsing, disc regulating and becoming suicidal 10/09 Patient remains intermittently suicidal with hopeless feelings feeling, discouraged about where his life is.? Feels he needs assisted living situation And feels a become suicidal if he goes home.? Team discussed this and agree that patient is struggling to except outside support; without a more structured living situation will likely continue to relapse and get readmitted and thus team supports patient's request for help getting into assisted living. 10/10 SI but passive And says he does not want to .? Willing to try an tam hopeless thinking.? Encouraged to get out in the milieu more.? Continues to want assisted living 10/11 Improved mood with brighter affect; patient out in the milieu interacting with others.? Not sure if this is due to decision to go to assisted living or just that time has taken its course and depression abated. Pt remains at risk for rapid decompensation.? Will continue to monitor 10/12 Patient's mood improved and depression appears to be abating; no SI and continued brighter affect; patient again out in the milieu interacting with others. Staff agrees that patient seems much better. Patient continues to agree with increasing Lamictal given that he is prone towards mood lability and that higher dose can help improve stability. Patient is heavily leaning towards going back to his apartment. He says he has been thinking about it over and over and he is concluding help probably be happier and safer if he goes back to his apartment, very worried about getting kicked out of assisted living and ending up homeless if he were to ever relapse. Hvac/R Instructor discussed pros and cons a nd patient was receptive; says will still think about it. Patient is not sure if he can return to his apartment at this time since he has months of unpaid rent (SW had mentioned this as well). Given that patient's improved mood is still very new and fragile, it is film writer's opinion that patient is not safe for discharge at this time given that outpatient services and housing is not yet secured; if patient discharged and end up homeless, patient would quickly decompensate. Rather pt is to remain on unit to allow for stable dispo planning. Also, want to increase lamictal as he's now ready for next titration (takes 2 weeks at 50mg before can increase dose). 10/14 Patient's depression continues to remain resolved; no SI. Patient wants to go back to his apartment in criminal justice social worker navigating this plan, setting up outpatient services and making sure he can return (was some former concern of p ossible eviction due to months of unpaid rent). Hvac/R Instructor and team agree that patient remains vulnerable to relapse and/or decompensation at some point given his long chronic struggles with both Substance abuse and mood lability; however patient is not in imminent risk for harm to self. His issues are chronic and will not resolve with longer inpatient stay. Patient Will be set up with outpatient services, and though in the past he often does not use them, they will be available for him. Will continue to dispo planning. PLAN: CV? 1:1 due to wheelchair Depression: [place] application to CSS/substance abuse programs Seroquel 25mg daily INCREASE to Lamictal to 75 mg; film writer reviewed risks/side effects including risk for Mitchell Chris's rash which patient understands and knows how to manage this medication duloxetine delayed release 60 mg PO QAM quetiapine 300 mg PO BEDTIME Hyperglycemia: recommends adding Glyburide 5mg daily before breakfast Metformin HCl 1,000 mg PO BID Chronic right parieto-occipital cerebral infarction/chronic cerebellar atrophy: Dr. Shahid recs appreciated; Dr. Verduzco following pt and recommends following: -Hold off for now CTA of brain and neck; reconsider if confustion reappears -Echocardiogram done on 04/30/21 (see below) -no Baby aspirin given hx of gI Bleed HTN: continue metoprolol succinate XR 24/hour? 25 mg PO BEDTIME Added Lisinopril 5mg daily Chronic pain: increase total daily allotment of Suboxone 4/1 mg q4h PRN (max does of 4 per day) for chronic pain HLD: atorvastatin 40 mg tablet PO BEDTIME fenofibrate 54 mg PO QAM magnesium oxide 400 mgPO QAM GERD Omeprazole 40mg (pantoprazole at home) Sudden onset Confusion:??REsolved -Per Dr. 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 Verduzco who is following Head CT 10/04/21 IMPRESSION: No acute intracranial pathology. EEG 10/04/21 IMPRESSION:? Mild slowing with no evidence of seizure disorder. Transthoracic Echocardiogram 04/30/21 Procedure(s): CA echo transthoracic complete Conclusions: -? 1. Technically limited study with off axis views? 2. LV systolic function overall appears to be normal with LVEF of 55-60% ? 3. Mild aortic regurgitation ? 4.? Normal calculated RV systolic pressure ? 5.? No gross pericardial effusion? ? ? I spent minutes with the patient and/or on the patient floor today, greater than?50% of which was spent counseling/coordinating care. Reason for contiued inpatient stay Substantial Risk for: stable for discharge
[2021-10-14] MEDS: hydrOXYzine HCL 25 MG TABLET PO (18:54)
[2021-10-14 19:55] VITALS: BP 159/80; PULSE 83; TEMP 36.5
[2021-10-14] MEDS: Atorvastatin Calcium 40 MG TABLET PO (19:58)
[2021-10-14] MEDS: QUEtiapine Fumarate 300 MG TABLET PO (19:59)
[2021-10-14] MEDS: lamoTRIgine 25 MG TABLET 50 MG PO (20:00)
[2021-10-14] MEDS: traZODone HCL 50 MG TABLET PO (20:00)
[2021-10-14] MEDS: Metoprolol Succinate ER 25 MG TAB.ER.24H PO (20:01)
[2021-10-14] MEDS: Docusate Sodium 100 MG CAPSULE 200 MG PO (20:02)
[2021-10-14 20:17] LABS: Glucose, Whole Blood 151 mg/dL (60-115)
[2021-10-15] MEDS: Omeprazole 20 MG CAPSULE.DR PO (05:17)
[2021-10-15] MEDS: Buprenorphine/Naloxone 4/1 mg FILM 1 FILM SUBLINGUAL ×5 (05:18→22:34)
[2021-10-15 05:24] LABS: Glucose, Whole Blood 112 mg/dL (60-115)
[2021-10-15 06:00] VITALS: BP 136/67; PULSE 67; RESP 18; TEMP 36.4; O2SAT 95
[2021-10-15] MEDS: lisinopriL 5 MG TABLET PO (09:23)
[2021-10-15] MEDS: DULoxetine HCl 60 MG CAPSULE.DR PO (09:23)
[2021-10-15] MEDS: Fenofibrate 54 MG TABLET PO (09:23)
[2021-10-15] MEDS: Magnesium Oxide 400 MG TABLET PO (09:23)
[2021-10-15] MEDS: hydrOXYzine HCL 25 MG TABLET PO (09:23)
[2021-10-15] MEDS: QUEtiapine Fumarate 25 MG TABLET PO (09:23)
[2021-10-15] MEDS: metFORMIN HCl ER 500 MG TAB.ER.24H 1000 MG PO ×2 (09:23→20:18)
[2021-10-15] MEDS: glyBURIDE 5 MG TABLET PO (09:23)
[2021-10-15] MEDS: Gabapentin 400 MG CAPSULE 800 MG PO ×3 (09:23→20:17)
--- NOTE | 2021-10-15 13:18 | P.PNPSI_ITS ---
Subjective Subjective Date of Service: 10/15/21 Reason For Visit: SI Interim History: Patient reports good mood and denies any SI. He discusses his risk for relapse and is optimistic he can stay sober; he does minimize to some degree his level of risk but he shares all the other things he has been able to quit and is hopeful. Patient shared about his history with romantic partner and how it has been challenging that the 2 are broken up now, the break-up happening couple months ago which he thinks helped trigger this particular incident. Patient feels good on the medications and says he is pretty sure and hopeful he made the right decision to return to his apartment instead of going to assisted living. He again shared his thoughts on the pros and cons of this decision but his decision to return home remains. Patient agreed that he needs to figure out how to get out of his apartment be more social. Special Certificate Dictator offered some options, however patient does not like to go to group meetings or other type of structured social then use and says he will figure it out. He does however agree that he would benefit from therapy as long as a was in person. Patient expresses appreciation for his time in the unit help received. Mental Status Exam Mental Status Exam Narrative: Pt is alert; oriented; behavior is cooperative, calm; dressed in hospital gown, bald head, scruffy perez and marginal hygiene; mood is described as good and affect congruent, brighter; eye contact appropriate; Speech is hard to understand due to speech impediment or mumbling which is baseline; otherwise, normal rate, volume and prosody and not pressured; no psychomotor agitation/retardation present; thought process goal directed; Thought content is battling hopeless feelings; chronic pain, and tx; no SI; no HI. There is no evidence of perceptual disturbance. Patients insight and judgment are impaired fair. Diagnostics Vital Signs (24Hr): Vital Signs - 24 hr 10/14/21 19:55 10/15/21 06:00 Temperature 97.7 F 97.5 F Pulse Rate 83 67 Respiratory Rate 18 Blood Pressure 159/80 H 136/67 Pulse Oximetry 95 Oxygen Delivery Method Room Air BMI result Body Mass Index 26.6 Labs Results: 10/04/21 10:32 10/12/21 07:00 Labs: Laboratory Results - last 48 hr 10/13/21 10/14/21 10/14/21 20:12 05:52 20:12 POC Glucose 160 H 167 H 151 H 10/15/21 05:21 POC Glucose 112 Imaging Radiology Impressions: ITS Impressions Head CT 10/04/21 05:36 IMPRESSION: No acute intracranial pathology. Medications Medications Current Medications Acetaminophen (Acetaminophen 325 Mg Tablet) 650 mg PO Q6H PRN PRN Reason: Headache/Pain Mild Scale (1-3) Al Hydroxide/Mg Hydroxide (Magnesium Hydrox/Alum Hydrox 30 Ml Oral.Susp) 30 ml PO Q6H PRN PRN Reason: Heartburn/Nausea Atorvastatin Calcium (Atorvastatin Calcium 40 Mg Tablet) 40 mg PO BEDTIME SHARA Last Admin: 10/14/21 19:58 Dose: 40 mg Buprenorphine/Naloxone (Buprenorphine/Naloxone 4/1 Mg Film) 1 film SUBLINGUAL Q4H PRN PRN Reason: mod to severe pain Last Admin: 10/15/21 09:23 Dose: 1 film Docusate Sodium (Docusate Sodium 100 Mg Capsule) 200 mg PO BEDTIME SHARA Last Admin: 10/14/21 20:02 Dose: 200 mg Duloxetine HCl (Duloxetine Hcl 60 Mg Capsule.Dr) 60 mg PO DAILY SHARA Last Admin: 10/15/21 09:23 Dose: 60 mg Fenofibrate (Fenofibrate 54 Mg Tablet) 54 mg PO DAILY SHARA Last Admin: 10/15/21 09:23 Dose: 54 mg Gabapentin (Gabapentin 400 Mg Capsule) 800 mg PO TID SHARA Last Admin: 10/15/21 09:23 Dose: 800 mg Glyburide (Glyburide 5 Mg Tablet) 5 mg PO DAILY SHARA Last Admin: 10/15/21 09:23 Dose: 5 mg Hydroxyzine HCl (Hydroxyzine Hcl 25 Mg Tablet) 25 mg PO Q6H PRN PRN Reason: Anxiety Last Admin: 10/15/21 09:23 Dose: 25 mg Lamotrigine (Lamotrigine 25 Mg Tablet) 50 mg PO BEDTIME SHARA Last Admin: 10/14/21 20:00 Dose: 50 mg Lisinopril (Lisinopril 5 Mg Tablet) 5 mg PO DAILY [facility]; Protocol Last Admin: 10/15/21 09:23 Dose: 5 mg Magnesium Hydroxide (Milk Of Magnesia 30 Ml Oral.Susp) 30 ml PO DAILY PRN PRN Reason: Constipation Last Admin: 10/10/21 10:56 Dose: 30 ml Magnesium Oxide (Magnesium Oxide 400 Mg Tablet) 400 mg PO DAILY [facility] Last Admin: 10/15/21 09:23 Dose: 400 mg Metformin HCl (Metformin Hcl Er 500 Mg Tab.Er.24h) 1,000 mg PO BID [facility] Last Admin: 10/15/21 09:23 Dose: 1,000 mg Metoprolol Succinate (Metoprolol Succinate Er 25 Mg Tab.Er.24h) 25 mg PO BEDTIME [facility]; Protocol Last Admin: 10/14/21 20:01 Dose: 25 mg Nicotine Polacrilex (Nicotine Polacrilex 2 Mg Gum) 4 mg BUCCAL Q2H PRN PRN Reason: Nicotine Cravings Omeprazole (Omeprazole 20 Mg Capsule.Dr) 20 mg PO DAILY@0630 [facility] Last Admin: 10/15/21 05:17 Dose: 20 mg Quetiapine Fumarate (Quetiapine Fumarate 300 Mg Tablet) 300 mg PO BEDTIME [facility] Last Admin: 10/14/21 19:59 Dose: 300 mg Quetiapine Fumarate (Quetiapine Fumarate 25 Mg Tablet) 25 mg PO DAILY [facility] Last Admin: 10/15/21 09:23 Dose: 25 mg Trazodone HCl (Trazodone Hcl 50 Mg Tablet) 50 mg PO BEDTIME PRN PRN Reason: Insomnia Last Admin: 10/14/21 20:00 Dose: 50 mg Allergies Allergies Allergy/AdvReac Type Severity Reaction Status Date / Time No Known Allergies Allergy Verified 05/31/21 11:24 Assessment & Plan Assessment & Plan (1) MDD (major depressive disorder), recurrent episode, moderate: Status: Chronic Code(s): F33.1 - Major depressive disorder, recurrent, moderate (2) Opioid use disorder, mild, in sustained remission: Status: Acute Code(s): F11.11 - Opioid abuse, in remission (3) Chronic pain syndrome: Status: Chronic Code(s): G89.4 - Chronic pain syndrome (4) Cocaine use disorder: Status: Chronic Code(s): F14.10 - Cocaine abuse, uncomplicated (5) Acute alteration in mental status: Status: Resolved Code(s): R41.82 - Altered mental status, unspecified (6) Multifactorial gait disorder: Status: Chronic Code(s): R26.89 - Other abnormalities of gait and mobility (7) Diabetes: Status: Acute Code(s): E11.9 - Type 2 diabetes mellitus without complications (8) HTN (hypertension): Code(s): I10 - Essential (primary) hypertension Plan HPI: Pt is a 61 yo Male with a history of MDD, chronic back and knee pain, ambulates in a wheelchair and long history of crack cocaine abuse who currently who presents for worsening depression and SI in the face of relapsing on crack co padmini And dealing with chronic pain.? Patient reports that pain is a major trigger for him relapsing But also agrees that cocaine addiction keeps him from pursuing actual treatment for any of his issues.? He agrees to trial of Suboxone to see if it can help with pain.? He also asks for help with follow-up however minimizes his long history of poor adherence with medications and follow-up post discharges. Pt is working with [employer]. Hospital course: 10/02 tearful, depressed with SI; started to Suboxone p.r.n. for pain.? Patient agrees that he typically stabilizes on current medication regimen so will not change anything other than increasing Lamictal 10/03 remains tearful, depressed and talking about suicide.? Most of his Angst is focused on his physical disability and the challenges of it.? Patient acknowledges that he both asks for and refuses help to which he says i'm f-kd in the head doc... Increasing Suboxone frequency to 4 times a day; adding Seroquel 25 mg daily to see if it can take the edge off emotional Angst. 10/04 sudden onset confusion; unclear etiology.? Neurology gave recommendations in Dr. Verduzco following pt 10/07 confusion resolved; will follow-up with Dr. Verduzco regarding neurology's recommendations.? Patient remains depressed but reports mood is a little better and SI less intense.? Team discussed patient's situation and chronic relapse and dysregulation with chronic SI.? Patient has frequent readmissions.? Team agrees that patient will strongly benefit from increased outpatient supports and a supportive living environment and will thus pursue assisted living.? Although patient has improved, he will be returning to the exact same environment and thus remains at risk for continued relapse and continued readmissions. Patient remains very concerned that going back to current living situation will resulted him quickly relapsing, disc regulating and becoming suicidal 10/09 Patient remains intermittently suicidal with hopeless feelings feeling, discouraged about where his life is.? Feels he needs assisted living situation And feels a become suicidal if he goes home.? Team discussed this and agree that patient is struggling to except outside support; without a more structured living situation will likely continue to relapse and get readmitted and thus team supports patient's request for help getting into assisted living. 10/10 SI but passive And says he does not want to .? Willing to try an tam hopeless thinking.? Encouraged to get out in the milieu more.? Continues to want assisted living 10/11 Improved mood with brighter affect; patient out in the milieu interacting with others.? Not sure if this is due to decision to go to assisted living or just that time has taken its course and depression abated. Pt remains at risk for rapid decompensation.? Will continue to monitor 10/12 Patient's mood improved and depression appears to be abating; no SI and continued brighter affect; patient again out in the milieu interacting with others. Staff agrees that patient seems much better. Patient continues to agree with increasing Lamictal given that he is prone towards mood lability and that higher dose can help improve stability. Patient is heavily leaning towards going back to his apartment. He says he has been thinking about it over and over and he is concluding help probably be happier and safer if he goes back to his apartment, very worried about getting kicked out of assisted living and endi ng up homeless if he were to ever relapse. Special Certificate Dictator discussed pros and cons and patient was receptive; says will still think about it. Patient is not sure if he can return to his apartment at this time since he has months of unpaid rent (SW had mentioned this as well). Given that patient's improved mood is still very new and fragile, it is conventional underwriter's opinion that patient is not safe for discharge at this time given that outpatient services and housing is not yet secured; if patient discharged and end up homeless, patient would quickly decompensate. Rather pt is to remain on unit to allow for stable dispo planning. Also, want to increase lamictal as he's now ready for next titration (takes 2 weeks at 50mg before can increase dose). 10/14 Patient's depression continues to remain resolved; no SI. 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 Special Certificate Dictator and team agree that patient remains vulnerable to relapse and/or decompensation at some point given his long chronic struggles with both Substance abuse and mood lability; however patient is not in imminent risk for harm to self. His issues are chronic and will not resolve with longer inpatient stay. Patient Will be set up with outpatient services, and though in the past he often does not use them, they will be available for him. Will continue to dispo planning. 10/15 good mood, no SI; optimistic about staying sober, but knows risks and that he's vulnerable to relapse. Tolerating medications well; Pt is not imminent risk of harm to self or others and his request for discharge honored. Would like therapy as long as it is and person PLAN: CV? 1:1 due to wheelchair Depression: SW application to CSS/substance abuse programs Seroquel 25mg daily INCREASE to Lamictal to 75 mg; conventional underwriter reviewed risks/side effects including risk for Mitchell[place] Perez's rash which patient understands and knows how to manage this medication duloxetine delayed release 60 mg PO QAM quetiapine 300 mg PO BEDTIME Hyperglycemia: recommends adding Glyburide 5mg daily before breakfast Metformin HCl 1,000 mg PO BID Chronic right parieto-occipital cerebral infarction/chronic cerebellar atrophy: Dr. Zehra campos appreciated; Dr. Verduzco following pt and recommends following: -Hold off for now CTA of brain and neck; reconsider if confustion reappears -Echocardiogram done on 04/30/21 (see below) -no Baby aspirin given hx of gI Bleed HTN: continue metoprolol succinate XR 24/hour? 25 mg PO BEDTIME Added Lisinopril 5mg daily Chronic pain: increase total daily allotment of Suboxone 4/1 mg q4h PRN (max does of 4 per day) for chronic pain HLD: atorvastatin 40 mg tablet PO BEDTIME fenofibrate 54 mg PO QAM magnesium oxide 400 mgPO QAM GERD Omeprazole 40mg (pantoprazole at home) Sudden onset Confusion:??REsolved -Per Dr. 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 Verduzco who is following Head CT 10/04/21 IMPRESSION: No acute intracranial pathology. EEG 10/04/21 IMPRESSION:? Mild slowing with no evidence of seizure disorder. Transthoracic Echocardiogram 04/30/21 Procedure(s): CA echo transthoracic complete Conclusions: -? 1. Technically limited study with off axis views? 2. LV systolic function overall appears to be normal with LVEF of 55-60% ? 3. Mild aortic regurgitation ? 4.? Normal calculated RV systolic pressure ? 5.? No gross pericardial effusion? ? ? I spent minutes with the patient and/or on the patient floor today, gre ater than?50% of which was spent counseling/coordinating care. Patient educated on: medication risk/benefits, substance abuse and therapeutic strategies Informed Consent: understands Reason for contiued inpatient stay Substantial Risk for: stable for discharge
[2021-10-15 16:50] VITALS: BP 134/72; PULSE 80; RESP 20; TEMP 37; O2SAT 96
[2021-10-15] MEDS: Docusate Sodium 100 MG CAPSULE 200 MG PO (20:16)
[2021-10-15] MEDS: Atorvastatin Calcium 40 MG TABLET PO (20:16)
[2021-10-15] MEDS: lamoTRIgine 25 MG TABLET 75 MG PO (20:17)
[2021-10-15] MEDS: Metoprolol Succinate ER 25 MG TAB.ER.24H PO (20:18)
[2021-10-15] MEDS: traZODone HCL 50 MG TABLET PO (20:18)
[2021-10-15] MEDS: QUEtiapine Fumarate 300 MG TABLET PO (20:18)
[2021-10-15 20:31] LABS: Glucose, Whole Blood 184 mg/dL (60-115)
[2021-10-16] MEDS: Omeprazole 20 MG CAPSULE.DR PO (05:48)
[2021-10-16] MEDS: Buprenorphine/Naloxone 4/1 mg FILM 1 FILM SUBLINGUAL ×3 (05:48→14:05)
[2021-10-16 05:51] LABS: Glucose, Whole Blood 126 mg/dL (60-115)
--- NOTE | 2021-10-16 09:29 | PM.PSYDC ---
DS: Providers Provider Date of Service: 10/16/21 Date of admission: 09/30/21 22:38 Date of discharge: 10/16/21 Primary care physician: None Physician Attending physician on admission: Chapincito Gonzalez Consults: 10/04/21 05:01 Consult to Neurology Routine Consulting Provider: [facility] Reason for consultation: slurred speech 10/04/21 09:43 Consult to Hospitalist Stat Consulting Provider: Hospitalist Reason For Exam: sudden onset confusion Attending physician on discharge: Chapincito Gonzalez DS: Diagnosis Discharge Diagnosis (1) MDD (major depressive disorder), recurrent episode, moderate: Status: Chronic (2) Opioid use disorder, mild, in sustained remission: Status: Acute (3) Chronic pain syndrome: Status: Chronic (4) Cocaine use disorder: Status: Chronic (5) Acute alteration in mental status: Status: Resolved (6) Multifactorial gait disorder: Status: Chronic (7) Diabetes: Status: Acute (8) HTN (hypertension): DS: Medications Discharge Medications Home Medications: Home Medications Medication Instructions Recorded Confirmed atorvastatin 40 mg tablet 1 tab PO BEDTIME 06/26/21 09/30/21 duloxetine 60 mg capsule,delayed 60 mg PO QAM 06/26/21 09/30/21 release fenofibrate 54 mg tablet 54 mg PO QAM 06/26/21 09/30/21 magnesium oxide 400 mg (241.3 mg 400 mg PO QAM 06/26/21 09/30/21 magnesium) tablet metoprolol succinate 25 mg 25 mg PO BEDTIME 06/26/21 09/30/21 tablet,extended release 24 hr pantoprazole 40 mg tablet,delayed 1 tab PO QAM 09/30/21 09/30/21 release quetiapine 300 mg tablet 1 tab PO BEDTIME 09/30/21 09/30/21 Previous Rx's Medication Instructions Recorded blood-glucose meter #1 ea 03/26/21 metformin 500 mg tablet,extended 1,000 mg PO BID #120 tabs 06/06/21 release 24 hr trazodone 50 mg tablet 50 mg PO BEDTIME PRN Insomnia #30 06/06/21 tabs gabapentin 800 mg tablet 800 mg PO TID #90 tabs 07/08/21 buprenorphine 4 mg-naloxone 1 mg 1 film sublingual QID PRN mod to 10/16/21 sublingual film (Suboxone) severe pain #0 ea docusate sodium 100 mg capsule 200 mg PO BEDTIME #0 caps 10/16/21 glyburide 5 mg tablet 5 mg PO DAILY #0 tabs 10/16/21 hydroxyzine HCl 25 mg tablet 25 mg PO Q6H PRN Anxiety #0 tabs 10/16/21 lamotrigine 25 mg tablet 75 mg PO BEDTIME #0 tabs 10/16/21 lisinopril 5 mg tablet 5 mg PO DAILY #0 tabs 10/16/21 quetiapine 25 mg tablet 25 mg PO DAILY #0 tabs 10/16/21 Mental Status Exam Mental Status Exam Narrative: Pt is alert; oriented; behavior is cooperative, calm; dressed in hospital gown, bald head, scruffy perez and marginal hygiene; mood is described as good and affect congruent, brighter; eye contact appropriate; Speech is hard to understand due to speech impediment or mumbling which is baseline; otherwise, normal rate, volume and prosody and not pressured; no psychomotor agitation/retardation present; thought process goal directed; Thought content is battling hopeless feelings; chronic pain, and tx; no SI; no HI. There is no evidence of perceptual disturbance. Patients insight and judgment are impaired fair. Data Data Completed and Pending Completed studies during hospitalization [Text1]: 10/09/21 10/10/21 10/10/21 11:21 05:57 17:34 Sodium Potassium Chloride Carbon Dioxide Anion Gap BUN Creatinine Estim Creat Clear Calc Estimated GFR POC Glucose 227 H 183 H 201 H Random Glucose Calcium 10/11/21 10/11/21 10/12/21 06:44 17:56 06:21 Sodium Potassium Chloride Carbon Dioxide Anion Gap BUN Creatinine Estim Creat Clear Calc Estimated GFR POC Glucose 166 H 128 H 103 Random Glucose Calcium 10/12/21 10/12/21 10/13/21 07:00 20:08 06:35 Sodium 134 L Potassium 4.3 Chloride 100 Carbon Dioxide 27 Anion Gap 11 L BUN 8 L Creatinine 0.80 Estim Creat Clear Calc 99.4 Estimated GFR > 60 POC Glucose 133 H 125 H Random Glucose 105 D Calcium 8.6 10/13/21 10/14/21 10/14/21 20:12 05:52 20:12 Sodium Potassium Chloride Carbon Dioxide Anion Gap BUN Creatinine Estim Creat Clear Calc Estimated GFR POC Glucose 160 H 167 H 151 H Random Glucose Calcium 10/15/21 10/15/21 10/16/21 05:21 20:15 05:46 Sodium Potassium Chloride Carbon Dioxide Anion Gap BUN Creatinine Estim Creat Clear Calc Estimated GFR POC Glucose 112 184 H 126 H Random Glucose Calcium Imaging Diagnostic Imaging Impressions Head CT 10/04/21 05:36 IMPRESSION: No acute intracranial pathology. DS: Summary Hospital Course Hospital Course: Pt is a 61 yo Male with a history of MDD, chronic back and knee pain, ambulates in a wheelchair and long history of crack cocaine abuse who currently who presents for worsening depression and SI in the face of relapsing on crack cocaine And dealing with chronic pain.? Patient reports that pain is a major trigger for him relapsing But also agrees that cocaine addiction keeps him from pursuing actual treatment for any of his issues.? He agrees to trial of Suboxone to see if it can help with pain.? He also asks for help with follow-up however minimizes his long history of poor adherence with medications and follow-up post discharges. Pt is working with [employer]. Hospital course: 10/02 tearful, depressed with SI; started to Suboxone p.r.n. for pain.? Patient agrees that he typically stabilizes on current medication regimen so will not change anything other than increasing Lamictal 10/03 remains tearful, depressed and talking about suicide.? Most of his Angst is focused on his physical disability and the challenges of it.? Patient acknowledges that he both asks for and refuses help to which he says i'm f-kd in the head doc... Increasing Suboxone frequency to 4 times a day; adding Seroquel 25 mg daily to see if it can take the edge off emotional Angst. 10/04 sudden onset confusion; unclear etiology.?soon resolved; Neurology gave recommendations in Dr. Verduzco following pt Head CT 10/04/21 IMPRESSION: No acute intracranial pathology. Incidental: Chronic right parieto-occipital cerebral infarction/chronic cerebellar atrophy: EEG 10/04/21 IMPRESSION:?Mild slowing with no evidence of seizure disorder. Echocardiogram done on 04/30/21 (LV systolic function overall appears to be normal with LVEF of 55-60%;Mild aortic regurgitation;?Normal calculated RV systolic pressure ;No gross pericardial effusion? EKG 09/30/21 Normal sinus rhythm -Hold off for now CTA of brain and neck; reconsider if confusion reappears (which did not) -no Baby aspirin started hx of gI Bleed 10/07 confusion remains resolved. Patient remains depressed but reports mood is a little better and SI less intense.? Team discussed patient's situation and chronic relapse and dysregulation with chronic SI.? Patient has frequent readmissions.? Team agrees that patient will strongly benefit from increased outpatient supports and a supportive living environment and will thus pursue assisted living.? Although patient has improved, he will be returning to the exact same environment and thus remains at risk for continued relapse and continued readmissions.? Patient remains very concerned that going back to current living situation will resulted him quickly relapsing, disc regulating and becoming suicidal 10/09 Patient remains intermittently suicidal with hopeless feelings feeling, discouraged about where his life is.? Feels he needs assisted living situation And feels a become suicidal if he goes home.? Team discussed this and agree that patient is struggling to except outside support; without a more structured living situation will likely continue to relapse and get readmitted and thus team supports patient's request for help getting into assisted living. 10/10 SI but passive And says he does not want to .? Willing to try an tam hopeless thinking.? Encouraged to get out in the milieu more.? Continues to want assisted living 10/11 Improved mood with brighter affect; patient out in the milieu interacting with others.? Not sure if this is due to decision to go to assisted living or just that time has taken its course and depression abated. Pt remains at risk for rapid decompensation.? Will continue to monitor 10/12 Patient's mood improved and depression appears to be abating; no SI and continued brighter affect; patient again out in the milieu interacting with others.? Staff agrees that patient seems much better.? Patient continues to agree with increasing Lamictal given that he is prone towards mood lability and that higher dose can help improve stability.? Patient is heavily leaning towards going back to his apartment.? He says he has been thinking about it over and over and he is concluding help probably be happier and safer if he goes back to his apartment, very worried about getting kicked out of assisted living and ending up homeless if he were to ever relapse.? [employer] discussed pros and cons and patient was receptive; says will still think about it. Patient is not sure if he can return to his apartment at this time since he has months of unpaid rent (SW had mentioned this as well).? Given that patient's improved mood is still very new and fragile, it is screen writer's opinion that patient is not safe for discharge at this time given that outpatient services and housing is not yet secured; if patient discharged and end up homeless, patient would quickly decompensate.? Rather pt is to remain on unit to allow for stable dispo planning. Also, want to increase lamictal as he's now ready for next titration (takes 2 weeks at 50mg before can increase dose). 10/14 Patient's depression continues to remain resolved; no SI.? 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 [employer] and team agree that patient remains vulnerable to relapse and/or decompensation at some point given his long chronic struggles with both Substance abuse and mood lability; however patient is not in imminent risk for harm to self.? His issues are chronic and will not resolve with longer inpatient stay.? Patient Will be set up with outpatient services, and though in the past he often does not use them, they will be available for him.? Will continue to dispo planning. -patient has appointment with his clinic on discharge who will set up PCP appointment so the patient can discuss further assessment/treatment for chronic pain. As discharge approached patient remained in a good mood without any SI. Patient was frequently out and about in the milieu, socializing appropriately with peers and staff and with noticeably brighter affect. Patient understood his risks for relapse but was optimistic about staying sober. Patient tolerating his medications; He feels that Suboxone has been helpful and that other medication changes, including adding Seroquel 25 mg daily has made a significant difference for him in dealing with his anxiety overall. Patient agrees to reach out for help if he should feel unsafe. He is interested in having a therapist if he can be [id number] and agrees he would significantly benefit from this. As mentioned, patient has a long history of substance abuse with intermittent mood dysregulation and he remains vulnerable to both relapse and again becoming dysphoric; however these issues are chronic and will not resolve with longer stay on inpatient unit. Patient is not in imminent risk for harm to self or others and has community support with providers already established. Patient is appropriate for discharge and request for discharge honored. Medication management: For hypertension, patient was started on lisinopril 5mg daily given that he also has diabetes For diabetic management patient was started on Glyburide 5mg daily which improved fasting blood glucose For Mood, lamotrigine increased to 75 mg and Seroquel 25 mg scheduled daily For chronic pain, Suboxone for/1 mg q.i.d. p.r.n. for moderate to severe pain was started which have hope to take the edge off patient's pain experience Time spent discussing smoking cessation with patient: 3 to 10 minutes Status at Discharge Functional status at discharge: wheelchair bound Overall status at discharge: patient is back to baseline Time Spent with Patient Time attestation: Total time spent providing and/or coordinating discharge services: Time spent: Greater than 30 minutes Discharge Plan Discharge Patient Disposition: Home, Self-Care Discharge Diagnosis: MDD, recurrent, moderate in full remission Referrals: Psychiatric Medication Evaluation: [facility] [Other] - 11/15/21 11:30 am (This is a Telehealth appointment) Therapy: [facility] [Other] - 1 Week (You have been added to the waitlist for therapy. I informed Intake that you prefer meeting with a therapist in-person. You will be contacted when a therapist becomes available to scheduled an appointment) Physician,None [Primary Care Provider] - 1 Week Discharge Medications: New lamotrigine 25 mg Tablet 75 mg PO BEDTIME Qty: 0 0RF lisinopril 5 mg Tablet 5 mg PO DAILY Qty: 0 0RF Protocol: Hold for SBP< HOLD for SBP < : 90 buprenorphine-naloxone [Suboxone] 4-1 mg Film 1 film sublingual QID PRN (Reason: mod to severe pain) Qty: 0 0RF quetiapine 25 mg Tablet 25 mg PO DAILY Qty: 0 0RF hydroxyzine HCl 25 mg Tablet 25 mg PO Q6H PRN (Reason: Anxiety) Qty: 0 0RF docusate sodium 100 mg Capsule 200 mg PO BEDTIME Qty: 0 0RF Rx Instructions: hold for loose stool glyburide 5 mg Tablet 5 mg PO DAILY Qty: 0 0RF Continued trazodone 50 mg Tablet 50 mg PO BEDTIME PRN (Reason: Insomnia) Qty: 30 0RF metformin 500 mg Tablet Extended Release 24 Hr 1,000 mg PO BID Qty: 120 0RF fenofibrate 54 mg tablet 54 mg PO QAM duloxetine 60 mg capsule,delayed release(DR/EC) 60 mg PO QAM magnesium oxide 400 mg (241.3 mg magnesium) tablet 400 mg PO QAM metoprolol succinate 25 mg tablet extended release 24 hr 25 mg PO BEDTIME Protocol: Hold for SBP/HR < HOLD for SBP < : 90 HOLD for HR < : 60 atorvastatin 40 mg tablet 1 tab PO BEDTIME gabapentin 800 mg tablet 800 mg PO TID Qty: 90 0RF (DME) blood-glucose meter Kit See Rx Instructions .Route Qty: 1 0RF Rx Instructions: As directed quetiapine 300 mg tablet 1 tab PO BEDTIME pantoprazole 40 mg tablet,delayed release (DR/EC) 1 tab PO QAM Discontinued lamotrigine 25 mg Tablet 25 mg PO BEDTIME Qty: 30 0RF Discharge Orders: Discharge Order (Routine); Ordered 10/16/21 Ordered By: Chapincito Gonzalez Diet: diabetic diet and regular diet Activity on Discharge: As tolerated Stand Alone Forms: Patient Portal Discharge page Care Plan Goals: Maintain mood and safe behaviors Take medications as prescribed Continue to pursue sobriety Practice coping skills Continue with outpatient providers and reach out to them as needed Health Concerns: Mood stability and behaviors Sobriety Diabetes Chronic Pain Hypertension Plan of Treatment: Follow up with your PCP, psychiatric provider and other outpatient providers regarding above concerns Take medications as prescribed Assessment: Risk assessment at time of discharge:? Patient was interviewed prior to discharge and found to be fully oriented and without any SI or HI. Patient has insight and demonstrates good judgment in terms of wanting to pursue treatment. Patient is not in imminent risk of harm to self or others and has a safety plan that includes presenting to the closest ER or calling 911 if feeling unsafe.? Patient has been observed closely by nursing and unit staff throughout admission; patient has not engaged in any behaviors that suggest dangerousness to self or others and has demonstrated appropriate behaviors and impulse control
[2021-10-16 09:45] VITALS: BP 152/86; PULSE 79; RESP 18; TEMP 36.8; O2SAT 96
[2021-10-16] MEDS: Gabapentin 400 MG CAPSULE 800 MG PO ×2 (09:52→14:05)
[2021-10-16] MEDS: DULoxetine HCl 60 MG CAPSULE.DR PO (09:53)
[2021-10-16] MEDS: glyBURIDE 5 MG TABLET PO (09:53)
[2021-10-16] MEDS: QUEtiapine Fumarate 25 MG TABLET PO (09:53)
[2021-10-16] MEDS: Fenofibrate 54 MG TABLET PO (09:53)
[2021-10-16] MEDS: hydrOXYzine HCL 25 MG TABLET PO (09:53)
[2021-10-16] MEDS: metFORMIN HCl ER 500 MG TAB.ER.24H 1000 MG PO (09:53)
[2021-10-16] MEDS: lisinopriL 5 MG TABLET PO (09:53)
[2021-10-16] MEDS: Magnesium Oxide 400 MG TABLET PO (09:53)
[2021-10-16] MEDS: Naloxone HCl Nasal TAKE HOME 4 MG SPRAY NOSTRILALT (10:53)
== END 2021-10-16 15:14 | disposition home or self-care (01) | DRG 885 ==
LOC: HO.ED 07:21 → HO.PM5 22:43
PROVIDERS: Emergency Medicine Emergency Medical Services; Hospitalist; Admitting Provider Psychiatry & Neurology Psychiatry; Emergency Provider Student in an Organized Health Care Education/Training Program; Visit Provider Psychiatry & Neurology Psychiatry
DX: F33.1 Major depressive disorder, recurrent, moderate (principal); R45.851 Suicidal ideations; F14.10 Cocaine abuse, uncomplicated; G31.89 Other specified degenerative diseases of nervous system; G89.4 Chronic pain syndrome; E11.9 Type 2 diabetes mellitus without complications; I10 Essential (primary) hypertension; R26.9 Unspecified abnormalities of gait and mobility; Z86.73 Personal history of transient ischemic attack (TIA), and cerebral infarction without residual deficits; Z20.822 Contact with and (suspected) exposure to COVID-19; Z87.891 Personal history of nicotine dependence; Z79.84 Long term (current) use of oral hypoglycemic drugs; Z79.899 Other long term (current) drug therapy
CPT/HCPCS: 36415; 70450; 80048; 80053; 80143; 80307; 82077; 82140; 82947; 85025; 87635; 93005; 95816; 99285

== ENCOUNTER 2021-10-29 11:07 | Inpatient (IN) | payer OTHER, MEDICAID, SELFPAY ==
--- NOTE | 2021-10-29 11:13 | ED.PSYCH ---
HPI - Psych General Stated Complaint: SI Time Seen by Provider: 10/29/21 11:08 Source: patient and old records reviewed Mode of arrival: EMS Limitations: no limitations History of Present Illness MD complaint: suicidal ideation and feels depressed Onset (ago): day(s) Duration: getting worse History of same: Yes Exacerbating factors: drug use Context: recent drug abuse Associated psychiatric symptoms: depression and suicidal ideation Associated symptoms: other (c/o burning fingers on crack pipe) Treatments prior to arrival: placed on mental health hold (bed search from community) If self harm: admits thoughts of self harm and has plan Related Data Home Medications Medication Instructions Recorded Confirmed atorvastatin 40 mg tablet 1 tab PO BEDTIME 06/26/21 09/30/21 duloxetine 60 mg capsule,delayed 60 mg PO QAM 06/26/21 09/30/21 release fenofibrate 54 mg tablet 54 mg PO QAM 06/26/21 09/30/21 magnesium oxide 400 mg (241.3 mg 400 mg PO QAM 06/26/21 09/30/21 magnesium) tablet metoprolol succinate 25 mg 25 mg PO BEDTIME 06/26/21 09/30/21 tablet,extended release 24 hr pantoprazole 40 mg tablet,delayed 1 tab PO QAM 09/30/21 09/30/21 release quetiapine 300 mg tablet 1 tab PO BEDTIME 09/30/21 09/30/21 Previous Rx's Medication Instructions Recorded blood-glucose meter #1 ea 03/26/21 metformin 500 mg tablet,extended 1,000 mg PO BID #120 tabs 06/06/21 release 24 hr trazodone 50 mg tablet 50 mg PO BEDTIME PRN Insomnia #30 06/06/21 tabs gabapentin 800 mg tablet 800 mg PO TID #90 tabs 07/08/21 buprenorphine 4 mg-naloxone 1 mg 1 film sublingual QID PRN mod to 10/16/21 sublingual film (Suboxone) severe pain #0 ea docusate sodium 100 mg capsule 200 mg PO BEDTIME #0 caps 10/16/21 glyburide 5 mg tablet 5 mg PO DAILY #0 tabs 10/16/21 hydroxyzine HCl 25 mg tablet 25 mg PO Q6H PRN Anxiety #0 tabs 10/16/21 lamotrigine 25 mg tablet 75 mg PO BEDTIME #0 tabs 10/16/21 lisinopril 5 mg tablet 5 mg PO DAILY #0 tabs 10/16/21 quetiapine 25 mg tablet 25 mg PO DAILY #0 tabs 10/16/21 Allergies Allergy/AdvReac Type Severity Reaction Status Date / Time No Known Allergies Allergy Verified 05/31/21 11:24 Review of Systems Review of Systems: Constitutional : No Fever, No Chills ENT/Mouth : No Ear Pain, No Nasal Congestion, No sore throat Eyes: No Eye Pain, No Swelling, No Redness Cardiovascular : No Chest Pain, No SOB Respiratory : No Cough, No Sputum, No Dyspnea Gastrointestinal : No Nausea, No Vomiting, No Diarrhea, No Hematochezia, No Melena Genitourinary : No Dysuria, No Urinary Frequency, No Hematuria Musculoskeletal : No Myalgias Skin : No Skin Lesions, No rash, pos burn Neuro : No Weakness, No Numbness, No Paresthesias, No Dizziness, No Headache Psych : positive Anxiety, positive Depression, positive SI no HI Heme/Lymph: No Lymphadenopathy Endocrine : No Polyuria, No Polydipsia All other systems reviewed and are negative [facility] Past Medical History Attestation statement: The following information was validated with the patient. Medical History Acute blood loss anemia Cerebral infarction Cocaine use disorder, moderate, dependence Diabetes HTN (hypertension) MDD (major depressive disorder), recurrent episode, moderate Multifactorial gait disorder Opioid use disorder, mild, in sustained remission Social History Social History Household Members: None Housing: Other Housing Other:: I live in a farmhouse in [place] . Do you presently have visiting nurse or other home services: No Unable to assess alcohol history related to: Unknown Alcohol intake: current Alcohol intake frequency: does not drink Patient Tobacco Use Status: Former Tobacco user Quit Date: 06/26/2021 Tobacco use type: Cigarette Cigarette Packs Per Day: 2 Cigarettes Per Day: 40 e-Cigarette/Vaping Use: Never Used Second Hand Smoke Exposure: No Use of substances other than those prescribed or required for medical reasons: Yes Substance Use Type: Crack/Cocaine service: Yes Current occupational status: disabled Sexual orientation: Lesbian/Navarrete/Homosexual Physical Exam Vital Signs: Appearance: Alert. Oriented X3. No acute distress. Eyes: Pupils equal, round and reactive to light. ENT: Pharynx normal. Neck: Normal inspection. Neck supple. CVS: Normal heart rate and rhythm. Pulses normal. Respiratory: No respiratory distress. Breath sounds normal. Abdomen: Soft and nontender. Skin: Skin warm and dry. Normal skin color. Normal skin turgor. both index finger has 1st and second degree small blisters noted no signs of infection - reports crack pipe disla Extremities: No lower extremity edema. No calf ttp Neuro: Oriented X 3. No motor deficit. No sensory deficit. CN 2-12 intact Course Course Course Narrative: Physician observation started at 1117am Patient placed in physician observation because the patient needed more time for inpatient bed search given SI. At the time observation was started the patient's vitals were stable, patient is alert and oriented, Neuro: nonfocal, CV RRR, Lungs clear MDM - Psych MDM Narrative Medical decision making narrative: 61 yo male with hx of substance abuse, GIB, DM here with c/o SI and he is already a community bed search - at this time denies complaints other than disla from crack pipe on his finger - tetanus is UTD has had recent procedures, wounds are old - no signs of secondary infection, asked RN and tech to apply bacitracin will obtain labs. Discharge Plan Discharge Clinical Impression: Polysubstance abuse, Suicidal ideation Patient Disposition: Still a Patient Prescriptions: No Action trazodone 50 mg Tablet 50 mg PO BEDTIME PRN (Reason: Insomnia) Qty: 30 0RF metformin 500 mg Tablet Extended Release 24 Hr 1,000 mg PO BID Qty: 120 0RF fenofibrate 54 mg tablet 54 mg PO QAM duloxetine 60 mg capsule,delayed release(DR/EC) 60 mg PO QAM magnesium oxide 400 mg (241.3 mg magnesium) tablet 400 mg PO QAM metoprolol succinate 25 mg tablet extended release 24 hr 25 mg PO BEDTIME Protocol: Hold for SBP/HR < HOLD for SBP < : 90 HOLD for HR < : 60 atorvastatin 40 mg tablet 1 tab PO BEDTIME gabapentin 800 mg tablet 800 mg PO TID Qty: 90 0RF (DME) blood-glucose meter Kit See Rx Instructions .Route Qty: 1 0RF Rx Instructions: As directed quetiapine 300 mg tablet 1 tab PO BEDTIME pantoprazole 40 mg tablet,delayed release (DR/EC) 1 tab PO QAM lamotrigine 25 mg Tablet 75 mg PO BEDTIME Qty: 0 0RF lisinopril 5 mg Tablet 5 mg PO DAILY Qty: 0 0RF Protocol: Hold for SBP< HOLD for SBP < : 90 buprenorphine-naloxone [Suboxone] 4-1 mg Film 1 film sublingual QID PRN (Reason: mod to severe pain) Qty: 0 0RF quetiapine 25 mg Tablet 25 mg PO DAILY Qty: 0 0RF hydroxyzine HCl 25 mg Tablet 25 mg PO Q6H PRN (Reason: Anxiety) Qty: 0 0RF docusate sodium 100 mg Capsule 200 mg PO BEDTIME Qty: 0 0RF Rx Instructions: hold for loose stool glyburide 5 mg Tablet 5 mg PO DAILY Qty: 0 0RF
[2021-10-29 11:14] VITALS: BP 138/80; PULSE 84; RESP 18; TEMP 36.8; O2SAT 99; BMI 27.3
[2021-10-29 11:26] LABS: MANUAL DIFF FLAG NO
[2021-10-29 11:28] LABS: Basophils Percent Auto 0.5 % (0-2); Eosinophils Absolute Auto 0.1 X10*3/uL (0.0-0.4); Eosinophils Percent Auto 1.4 % (0-4); Hematocrit 38.3 % (42.0-52.0); Hemoglobin 12.3 g/dl (14.0-18.0); Imm Gran Abs Auto 0.03 X10*3/uL (0.00-0.03); Imm Gran Pct Auto 0.4 % (0.0-0.4); Lymphocytes Absolute Auto 1.4 X10*3/uL (1.2-4.9); Lymphocytes Percent Auto 16.4 % (20-40); Mean Corpuscular HGB Conc 32.1 g/dl (31.0-36.0); Mean Corpuscular Hemoglobin 26.2 pg (27.0-33.0); Mean Corpuscular Volume 81.5 fL (80.0-98.0); Mean Platelet Volume 9.4 fL (9.4-12.4); Monocytes Absolute Auto 0.6 X10*3/uL (0.1-1.2); Monocytes Percent Auto 6.9 % (2-11); Neutrophils Absolute Auto 6.4 x10*3/uL (2.0-8.3); Neutrophils Percent Auto 74.4 % (45-73); Platelet Count 260 X10*3/uL (160-400); Red Cell Distribution Width 16.8 % (11.0-16.0); White Blood Count 8.5 X10*3/uL (4.8-10.8)
[2021-10-29 11:44] LABS: Alanine Aminotransferase 56 U/L (0-40); Albumin Level 4.4 g/dL (3.5-5.0); Alkaline Phosphatase 73 U/L (39-117); Anion Gap 12 (12-20); Aspartate Amino Transferase 69 U/L (5-37); Bilirubin Direct 0.2 mg/dL (0.0-0.5); Bilirubin Total 0.5 mg/dL (0.0-1.0); Blood Urea Nitrogen 17 mg/dL (9-16); Carbon Dioxide 25 mmol/L (22-29); Chloride 104 mmol/L (96-108); Creatinine Clr Calc Pharmacy 91.6; Estimated Glomerular Filt Rate > 60; Ethanol < 10 mg/dL; Glucose Random 125 mg/dL (60-115); Magnesium 1.8 mg/dL (1.6-2.6); Potassium 3.9 mmol/L (3.3-5.1); Sodium 137 mmol/L (135-145); Total Protein 6.9 g/dL (6.5-8.0)
[2021-10-29 11:55] LABS: COVID-19 Test Negative (Negative); IDNOW Serial# 16C4AD1C
--- NOTE | 2021-10-29 12:50 | PHA.MEDREC ---
Pharmacy Consult ? Medication Reconciliation Pharmacy has completed the medication reconciliation. Patient reports all medications are same as discharge on 10/16/21. Lexus Bean, GeorgeD
[2021-10-29 16:10] VITALS: BP 124/77; PULSE 79; RESP 18; TEMP 36.8; O2SAT 96
[2021-10-29] MEDS: metFORMIN HCl ER 500 MG TAB.ER.24H 1000 MG PO (21:22)
[2021-10-29] MEDS: QUEtiapine Fumarate 300 MG TABLET PO (21:22)
[2021-10-29] MEDS: Gabapentin 400 MG CAPSULE 800 MG PO (21:23)
[2021-10-29] MEDS: Metoprolol Succinate ER 25 MG TAB.ER.24H PO (21:23)
[2021-10-29] MEDS: Docusate Sodium 100 MG CAPSULE 200 MG PO (21:24)
[2021-10-29] MEDS: lamoTRIgine 25 MG TABLET 75 MG PO (21:24)
[2021-10-29] MEDS: Atorvastatin Calcium 40 MG TABLET PO (21:25)
[2021-10-29] MEDS: Buprenorphine/Naloxone 4/1 mg FILM 1 FILM SUBLINGUAL (21:26)
[2021-10-29 22:46] VITALS: BP 139/77; PULSE 77; RESP 16; TEMP 36.6; O2SAT 98
[2021-10-29 23:24] LABS: Amphetamine Screen Urine Not Detected (Not Detect); Barbiturates, Urine Not Detected (Not Detect); Benzodiazepines Screen Urine Not Detected (Not Detect); Cannabinoid Screen Urine Not Detected (Not Detect); Cocaine Screen Urine POSITIVE (Not Detect); Fentanyl, urine Not Detected (Not Detect); Opiate Screen Urine Not Detected (Not Detect); Phencyclidine Screen Urine Not Detected (Not Detect)
[2021-10-30] VITALS (8 sets, daily range): BP systolic 99–150; BP diastolic 60–80; PULSE 68–86; RESP 14–16; TEMP 36–37.1; O2SAT 94–97; BMI 27.6; BMI 29.0
[2021-10-30 07:27] LABS: Glucose, Whole Blood 131 mg/dL (60-115)
--- NOTE | 2021-10-30 10:27 | ECG_ITS ---
Test Reason : psych med Blood Pressure : / mmHG Vent. Rate : 067 BPM Atrial Rate : 067 BPM P-R Int : 208 ms QRS Dur : 100 ms QT Int : 398 ms P-R-T Axes : 018 011 066 degrees QTc Int : 420 ms Normal sinus rhythm Inferior-posterior infarct , age undetermined Abnormal ECG When compared with ECG of 30-SEP-2021 22:20, No significant change was found Referred By: Elizabeth Espinal Electronically Signed By:Stanley Luna
--- NOTE | 2021-10-30 10:44 | PC.NURSE ---
PATIENT CONTINUES 1-1. RESTING COMFORTABLE . UNLABORED BREATHING . EQUAL CHEST RISING . HAS CHANGED POSITIONS IN BED . EKG OBTAINED . CONTINUE TO MONITOR PATIENT .
[2021-10-30] MEDS: metFORMIN HCl ER 500 MG TAB.ER.24H 1000 MG PO ×2 (11:06→21:03)
[2021-10-30] MEDS: Gabapentin 400 MG CAPSULE 800 MG PO ×3 (11:06→21:02)
[2021-10-30] MEDS: Buprenorphine/Naloxone 4/1 mg FILM 1 FILM SUBLINGUAL ×4 (11:06→21:03)
[2021-10-30] MEDS: Fenofibrate 54 MG TABLET PO (11:07)
[2021-10-30] MEDS: QUEtiapine Fumarate 25 MG TABLET PO (11:07)
[2021-10-30] MEDS: DULoxetine HCl 60 MG CAPSULE.DR PO (11:07)
[2021-10-30] MEDS: glyBURIDE 5 MG TABLET PO (11:07)
[2021-10-30] MEDS: lisinopriL 5 MG TABLET PO (11:07)
[2021-10-30] MEDS: Magnesium Oxide 400 MG TABLET PO (11:07)
[2021-10-30] MEDS: Omeprazole 20 MG CAPSULE.DR PO (11:41)
--- NOTE | 2021-10-30 17:33 | PC.ADMIT ---
Pt is a 61years old male admitted for SI w/ no known plan. Pt has extensive history of drug use. Pt confirms SI and reported to responding officer that he had thoughts to use a knife harm himself. Pt is alert and oriented X3, VSS, Covid negative, Tox positive for cocaine. Pt denies SI/Hi at this time. Endorsed depression with some episodes of hopeless feelings. Pt narrates history of from drugs among family members. Pt is a talkative with gabbled Speech. Pt ambulates with wheelchair. Pt reports decline and he does not feel he is able to manage living w/as much independence as he has been, seeks to be placed in assisted living facility. Admission orders obtained, Pt feels safe on the unit.
[2021-10-30] MEDS: Metoprolol Succinate ER 25 MG TAB.ER.24H PO (21:01)
[2021-10-30] MEDS: lamoTRIgine 25 MG TABLET 75 MG PO (21:01)
[2021-10-30] MEDS: traZODone HCL 50 MG TABLET PO (21:02)
[2021-10-30] MEDS: QUEtiapine Fumarate 300 MG TABLET PO (21:02)
[2021-10-30] MEDS: Docusate Sodium 100 MG CAPSULE 200 MG PO (21:02)
[2021-10-30] MEDS: Atorvastatin Calcium 40 MG TABLET PO (21:02)
[2021-10-31] MEDS: Buprenorphine/Naloxone 4/1 mg FILM 1 FILM SUBLINGUAL ×4 (08:28→19:48)
[2021-10-31] MEDS: Omeprazole 20 MG CAPSULE.DR PO (08:28)
[2021-10-31] MEDS: metFORMIN HCl ER 500 MG TAB.ER.24H 1000 MG PO ×2 (08:28→19:47)
[2021-10-31] MEDS: Fenofibrate 54 MG TABLET PO (08:28)
[2021-10-31] MEDS: DULoxetine HCl 60 MG CAPSULE.DR PO (08:28)
[2021-10-31] MEDS: Gabapentin 400 MG CAPSULE 800 MG PO ×3 (08:28→19:48)
[2021-10-31] MEDS: Magnesium Oxide 400 MG TABLET PO (08:29)
[2021-10-31] MEDS: lisinopriL 5 MG TABLET PO (08:29)
[2021-10-31] MEDS: glyBURIDE 5 MG TABLET PO (08:29)
[2021-10-31] MEDS: QUEtiapine Fumarate 25 MG TABLET PO (08:29)
[2021-10-31 08:45] VITALS: BP 151/84; PULSE 76; RESP 16; TEMP 36.1; O2SAT 96
[2021-10-31 09:07] LABS: Estimated Average Glucose 180 mg/dL; Hemoglobin A1c % 7.9 %
[2021-10-31 09:44] LABS: Cholesterol 127 mg/dL; HDL Cholesterol 22 mg/dL; LDL Cholesterol Calculated 54 mg/dl; Magnesium 1.5 mg/dL (1.6-2.6); Triglycerides 256 mg/dL
[2021-10-31 10:01] LABS: Free T4 (Free Thyroxine) 0.73 ng/dL (0.71-1.85); Thyroid Stimulating Hormone 4.54 uIU/mL (0.32-4.0)
[2021-10-31 10:16] LABS: Folate 5.7 ng/mL (> or = 4.0); Vitamin B12 389 pg/mL (200-900)
--- NOTE | 2021-10-31 10:55 | P.HPPS_ITS ---
HPI Date of Service: 10/31/21 Chief Complaint: Major Depression Polysubstance Abuse Crack Alcohol Sources of Information: patient interviewed, chart reviewed and crisis/core team assessment reviewed HPI Subjective Notes: Gomez Warning and Conditional Voluntary Narrative: Pt is a 61 yo Male with a history of MDD, chronic back and knee pain, ambulates in a wheelchair and long history of crack cocaine abuse, Recently discharged from on 10/15/21 who now presents for depression with SI in the face of relapsing on crack cocaine almost immediately following discharge, not taking medications and dealing with chronic pain. Patient said that he relapsed pretty much the day he discharged home. He said he found someone that he knew who offe red him a hit of crack cocaine and from that moment forward he tumbled forward in to full-blown relapse. Patient showed marketing underwriter his burnt fingertips from holding a crack pipe. Patient reports he has not taken medications since until coming to the emergency room. Patient shared that he started to get depressed and had some momentary active SI, but mostly it was just wishing he were . Patient said he just can not get over some of the bitterness he has over past experiences. He said it is not how he wants to be but he has so much trouble getting over it. He agrees that without sobriety it will be impossible. To that and he said he is now ready to go to assisted living. He feels that staying in his places too risky to relapse and even though he has some concerns about assisted living, he feels that the alternative, going back to was current living situation is untenable and that he will continue to relapse which he believes will eventually lead to his . Patient currently has intermittent SI. Wants To get back on his medications Past Psychiatric History: -No current OP providers (hx of poor follow up) -Hx of IPLOC, last at [facility] in May 2021, Feb 2021. Hx of IPLOC at [facility] in [facility]. -Suicide attempts: none -Past medication trials: seroquel, cymbalta, gabapentin Medical Evaluation Reviewed: Yes [facility] Medical History Acute blood loss anemia Cerebral infarction Cocaine use disorder, moderate, dependence Diabetes HTN (hypertension) MDD (major depressive disorder), recurrent episode, moderate Multifactorial gait disorder Opioid use disorder, mild, in sustained remission Family History: uncle- completed suicide Social History: -Pt for 30 years with male partner, now but states they are somewhat close. -No children. Served in . -Pt lives alone, waiting to get into [facility] -He has limited social supports. Per chart, he had 6 siblings but all are except a brother in [place] who he does not talk to. Trauma History: denies Diagnostics Vital Signs (24Hr): Vital Signs - 24 hr 10/30/21 11:11 10/30/21 14:14 10/30/21 14:36 Temperature 97.8 F 96.8 F Pulse Rate 68 77 Respiratory Rate 14 Blood Pressure 123/74 134/80 150/76 H Pulse Oximetry 97 96 Oxygen Delivery Method Room Air Room Air 10/30/21 17:14 10/31/21 08:45 Temperature 98.1 F 97.0 F Pulse Rate 70 76 Respiratory Rate 16 16 Blood Pressure 139/79 151/84 H Pulse Oximetry 94 96 Oxygen Delivery Method Room Air Room Air BMI result Body Mass Index 29.0 Labs Results: 10/29/21 11:21 10/29/21 11:21 Labs: Laboratory Results - last 48 hr 10/29/21 10/29/21 10/29/21 11:21 11:21 11:21 WBC 8.5 RBC 4.70 Hgb 12.3 L Hct 38.3 L MCV 81.5 MCH 26.2 L MCHC 32.1 RDW 16.8 H Plt Count 260 D MPV 9.4 Immature Gran % (Auto) 0.4 Neut % (Auto) 74.4 H Lymph % (Auto) 16.4 L [place] % (Auto) 6.9 Eos % (Auto) 1.4 Baso % (Auto) 0.5 Lymph # (Auto) 1.4 [place] # (Auto) 0.6 Eos # (Auto) 0.1 Baso # (Auto) 0.0 Abs Immat Gran (auto) 0.03 Absolute Neuts (auto) 6.4 Absolute Nucleated RBC 0.000 Nucleated RBC % (auto) 0.0 Sodium 137 Potassium 3.9 Chloride 104 Carbon Dioxide 25 Anion Gap 12 BUN 17 H D Creatinine 0.84 Estim Creat Clear Calc 91.6 Estimated GFR > 60 POC Glucose Random Glucose 125 H Estimat Average Glucose Hemoglobin A1c % Calcium 9.0 Magnesium 1.8 Total Bilirubin 0.5 Direct Bilirubin 0.2 AST 69 H ALT 56 H Alkaline Phosphatase 73 Total Protein 6.9 Albumin 4.4 Triglycerides Cholesterol LDL Cholesterol, Calc HDL Cholesterol Vitamin B12 Folate TSH Free T4 Urine Opiates Screen Urine Fentanyl Screen Ur Barbiturates Screen Ur Phencyclidine Scrn Ur Amphetamines Screen U Benzodiazepines Scrn Urine Cocaine Screen U Marijuana (THC) Screen Ethyl Alcohol < 10 COVID-19 (TNAA) Negative COVID-19 Clin Com See Note 10/29/21 10/30/21 10/31/21 22:36 07:23 08:12 WBC RBC Hgb Hct MCV MCH MCHC RDW Plt Count MPV Immature Gran % (Auto) Neut % (Auto) Lymph % (Auto) [place] % (Auto) Eos % (Auto) Baso % (Auto) Lymph # (Auto) [place] # (Auto) Eos # (Auto) Baso # (Auto) Abs Immat Gran (auto) Absolute Neuts (auto) Absolute Nucleated RBC Nucleated RBC % (auto) Sodium Potassium Chloride Carbon Dioxide Anion Gap BUN Creatinine Estim Creat Clear Calc Estimated GFR POC Glucose 131 H Random Glucose Estimat Average Glucose 180 Hemoglobin A1c % 7.9 Calcium Magnesium Total Bilirubin Direct Bilirubin AST ALT Alkaline Phosphatase Total Protein Albumin Triglycerides Cholesterol LDL Cholesterol, Calc HDL Cholesterol Vitamin B12 Folate TSH Free T4 Urine Opiates Screen Not Detected Urine Fentanyl Screen Not Detected Ur Barbiturates Screen Not Detected Ur Phencyclidine Scrn Not Detected Ur Amphetamines Screen Not Detected U Benzodiazepines Scrn Not Detected Urine Cocaine Screen POSITIVE H U Marijuana (THC) Screen Not Detected Ethyl Alcohol COVID-19 (TANA) COVID-19 Clin Com 10/31/21 10/31/21 08:12 08:12 WBC RBC Hgb Hct MCV MCH MCHC RDW Plt Count MPV Immature Gran % (Auto) Neut % (Auto) Lymph % (Auto) [place] % (Auto) Eos % (Auto) Baso % (Auto) Lymph # (Auto) [place] # (Auto) Eos # (Auto) Baso # (Auto) Abs Immat Gran (auto) Absolute Neuts (auto) Absolute Nucleated RBC Nucleated RBC % (auto) Sodium Potassium Chloride Carbon Dioxide Anion Gap BUN Creatinine Estim Creat Clear Calc Estimated GFR POC Glucose Random Glucose Estimat Average Glucose Hemoglobin A1c % Calcium Magnesium 1.5 L Total Bilirubin Direct Bilirubin AST ALT Alkaline Phosphatase Total Protein Albumin Triglycerides 256 Cholesterol 127 D LDL Cholesterol, Calc 54 HDL Cholesterol 22 Vitamin B12 389 Folate 5.7 TSH 4.54 H Free T4 0.73 Urine Opiates Screen Urine Fentanyl Screen Ur Barbiturates Screen Ur Phencyclidine Scrn Ur Amphetamines Screen U Benzodiazepines Scrn Urine Cocaine Screen U Marijuana (THC) Screen Ethyl Alcohol COVID-19 (TANA) COVID-19 Clin Com Meds/Allergies Meds Home Medications Medication Instructions Recorded Confirmed Type atorvastatin 40 mg tablet 1 tab PO BEDTIME 06/26/21 10/29/21 History duloxetine 60 mg capsule,delayed 60 mg PO QAM 06/26/21 10/29/21 History release fenofibrate 54 mg tablet 54 mg PO QAM 06/26/21 10/29/21 History magnesium oxide 400 mg (241.3 mg 400 mg PO QAM 06/26/21 10/29/21 History magnesium) tablet metoprolol succinate 25 mg 25 mg PO BEDTIME 06/26/21 10/29/21 History tablet,extended release 24 hr pantoprazole 40 mg tablet,delayed 1 tab PO QAM 09/30/21 10/29/21 History release quetiapine 300 mg tablet 1 tab PO BEDTIME 09/30/21 10/29/21 History buprenorphine 4 mg-naloxone 1 mg 1 film sublingual QID 10/29/21 10/29/21 History sublingual film (Suboxone) Allergies Allergies Allergy/AdvReac Type Severity Reaction Status Date / Time No Known Allergies Allergy Verified 05/31/21 11:24 Mental Status Exam Mental Status Exam Narrative: Pt is alert; oriented; behavior is cooperative, calm; dressed in hospital gown, bald head, scruffy perez and marginal hygiene; mood is described as depressed and affect congruent; eye contact appropriate; Speech is hard to understand due to speech impediment or mumbling which is baseline; otherwise, normal rate, volume and prosody and not pressured; no psychomotor agitation/retardation present; thought process goal directed; Thought content is on depression, tx, changing living situation; reports intermittent passive SI; no HI. There is no evidence of perceptual disturbance. Patients insight and judgment are impaired. Assessment & Plan Assessment & Plan (1) MDD (major depressive disorder), recurrent episode, moderate: Status: Chronic Code(s): F33.1 - Major depressive disorder, recurrent, moderate (2) Cocaine use disorder: Status: Chronic Code(s): F14.10 - Cocaine abuse, uncomplicated (3) Chronic pain syndrome: Status: Chronic Code(s): G89.4 - Chronic pain syndrome (4) Diabetes: Status: Acute Code(s): E11.9 - Type 2 diabetes mellitus without complications Plan Pt is a 61 yo Male with a history of MDD, chronic back and knee pain, ambulates in a wheelchair and long history of crack cocaine abuse, Recently discharged from on 10/15/21 who now presents for depression with SI in the face of relapsing on crack cocaine almost immediately following discharge, not taking medications and dealing with chronic pain. -will continue home meds -Will lower Lamictal down to 50 mg; he was off it for a few weeks; emergency room restarted him on 75 mg which he has tolerated thus far making it unlikely he will have adverse affects, especially if going down to 50 mg. -social work to help with assisted living Plan: CV Q 15 minute checks Continue home medications except for Lamictal which will be lowered to 50 mg Monitor magnesium; consider replacement Patient educated on: diagnosis, medication risk/benefits, substance abuse and therapeutic strategies Informed Consent: understands Reason for continued inpatient stay Substantial Risk for: rapid decompensation
--- NOTE | 2021-10-31 14:30 | PC.NURSE ---
mag level low at 1.5. dr. london notified via tiger text.
[2021-10-31 18:00] VITALS: BP 126/65; PULSE 81; TEMP 36.3; O2SAT 95
[2021-10-31] MEDS: Metoprolol Succinate ER 25 MG TAB.ER.24H PO (19:47)
[2021-10-31] MEDS: Docusate Sodium 100 MG CAPSULE 200 MG PO (19:47)
[2021-10-31] MEDS: QUEtiapine Fumarate 300 MG TABLET PO (19:47)
[2021-10-31] MEDS: lamoTRIgine 25 MG TABLET 50 MG PO (19:47)
[2021-10-31] MEDS: Atorvastatin Calcium 40 MG TABLET PO (19:48)
[2021-11-01] MEDS: Omeprazole 20 MG CAPSULE.DR PO (06:34)
[2021-11-01] MEDS: QUEtiapine Fumarate 25 MG TABLET PO (08:34)
[2021-11-01] MEDS: Buprenorphine/Naloxone 4/1 mg FILM 1 FILM SUBLINGUAL ×4 (08:34→19:27)
[2021-11-01] MEDS: Fenofibrate 54 MG TABLET PO (08:34)
[2021-11-01] MEDS: Gabapentin 400 MG CAPSULE 800 MG PO ×3 (08:34→19:27)
[2021-11-01] MEDS: Magnesium Oxide 400 MG TABLET PO (08:34)
[2021-11-01] MEDS: DULoxetine HCl 60 MG CAPSULE.DR PO (08:34)
[2021-11-01] MEDS: glyBURIDE 5 MG TABLET PO (08:34)
[2021-11-01 08:47] VITALS: BP 98/56; PULSE 80; RESP 16; O2SAT 98
[2021-11-01] MEDS: metFORMIN HCl ER 500 MG TAB.ER.24H 1000 MG PO ×2 (08:58→19:27)
[2021-11-01] MEDS: hydrOXYzine HCL 25 MG TABLET PO ×3 (09:04→21:33)
--- NOTE | 2021-11-01 13:01 | HO.PSYCHPN ---
Subjective Subjective Date of Service: 11/01/21 Reason For Visit: Major Depression Polysubstance Abuse Crack Alcohol Interim History: Patient depressed and upset with himself; intermittent SI Mental Status Exam Mental Status Exam Narrative: Pt is alert; oriented; behavior is cooperative, calm; dressed in hospital gown, bald head, scruffy perez and marginal hygiene; mood is described as depressed and affect congruent; eye contact appropriate; Speech is hard to understand due to speech impediment or mumbling which is baseline; otherwise, normal rate, volume and prosody and not pressured; no psychomotor agitation/retardation present; thought process goal directed; Thought content is on depression, tx, changing living situation; reports intermittent passive SI; no HI. There is no evidence of perceptual disturbance. Patients insight and judgment are impaired. Diagnostics Vital Signs (24Hr): Vital Signs - 24 hr 10/31/21 18:00 11/01/21 08:47 Temperature 97.4 F Pulse Rate 81 80 Respiratory Rate 16 Blood Pressure 126/65 98/56 L Pulse Oximetry 95 98 Oxygen Delivery Method Room Air Room Air BMI result Body Mass Index 29.0 Labs Results: 10/29/21 11:21 10/29/21 11:21 Labs: Laboratory Results - last 48 hr 10/31/21 10/31/21 10/31/21 08:12 08:12 08:12 Estimat Average Glucose 180 Hemoglobin A1c % 7.9 Magnesium 1.5 L Triglycerides 256 Cholesterol 127 D LDL Cholesterol, Calc 54 HDL Cholesterol 22 Vitamin B12 389 Folate 5.7 TSH 4.54 H Free T4 0.73 Medications Medications Current Medications Acetaminophen (Acetaminophen 325 Mg Tablet) 650 mg PO Q6H PRN PRN Reason: Headache/Pain Mild Scale (1-3) Al Hydroxide/Mg Hydroxide (Magnesium Hydrox/Alum Hydrox 30 Ml Oral.Susp) 30 ml PO Q6H PRN PRN Reason: Heartburn/Nausea Atorvastatin Calcium (Atorvastatin Calcium 40 Mg Tablet) 40 mg PO BEDTIME [facility] Last Admin: 10/31/21 19:48 Dose: 40 mg Buprenorphine/Naloxone (Buprenorphine/Naloxone 4/1 Mg Film) 1 film SUBLINGUAL QID [facility] Last Admin: 11/01/21 08:34 Dose: 1 film Docusate Sodium (Docusate Sodium 100 Mg Capsule) 200 mg PO BEDTIME [facility] Last Admin: 10/31/21 19:47 Dose: 200 mg Duloxetine HCl (Duloxetine Hcl 60 Mg Capsule.) 60 mg PO DAILY [facility] Last Admin: 11/01/21 08:34 Dose: 60 mg Fenofibrate (Fenofibrate 54 Mg Tablet) 54 mg PO DAILY [facility] Last Admin: 11/01/21 08:34 Dose: 54 mg Gabapentin (Gabapentin 400 Mg Capsule) 800 mg PO TID [facility] Last Admin: 11/01/21 08:34 Dose: 800 mg Glyburide (Glyburide 5 Mg Tablet) 5 mg PO DAILY [facility] Last Admin: 11/01/21 08:34 Dose: 5 mg Hydroxyzine HCl (Hydroxyzine Hcl 25 Mg Tablet) 25 mg PO Q6H PRN PRN Reason: Anxiety Last Admin: 11/01/21 09:04 Dose: 25 mg Lamotrigine (Lamotrigine 25 Mg Tablet) 50 mg PO BEDTIME [facility] Last Admin: 10/31/21 19:47 Dose: 50 mg Lisinopril (Lisinopril 5 Mg Tablet) 5 mg PO DAILY [facility]; Protocol Last Admin: 11/01/21 08:36 Dose: Not Given Magnesium Hydroxide (Milk Of Magnesia 30 Ml Oral.Susp) 30 ml PO DAILY PRN PRN Reason: Constipation Magnesium Oxide (Magnesium Oxide 400 Mg Tablet) 400 mg PO DAILY [facility] Last Admin: 11/01/21 08:34 Dose: 400 mg Metformin HCl (Metformin Hcl Er 500 Mg Tab.Er.24h) 1,000 mg PO BID [facility] Last Admin: 11/01/21 08:58 Dose: 1,000 mg Metoprolol Succinate (Metoprolol Succinate Er 25 Mg Tab.Er.24h) 25 mg PO BEDTIME [facility]; Protocol Last Admin: 10/31/21 19:47 Dose: 25 mg Omeprazole (Omeprazole 20 Mg Capsule.) 20 mg PO DAILY@0630 [facility] Last Admin: 11/01/21 06:34 Dose: 20 mg Pharmacy Consult (Consult Rx Perform Med Rec) 1 each MISCELLANE ONCE PRN PRN Reason: Consult order Quetiapine Fumarate (Quetiapine Fumarate 25 Mg Tablet) 25 mg PO DAILY [facility] Last Admin: 11/01/21 08:34 Dose: 25 mg Quetiapine Fumarate (Quetiapine Fumarate 300 Mg Tablet) 300 mg PO BEDTIME [facility] Last Admin: 10/31/21 19:47 Dose: 300 mg Trazodone HCl (Trazodone Hcl 50 Mg Tablet) 50 mg PO BEDTIME PRN PRN Reason: Insomnia Last Admin: 10/30/21 21:02 Dose: 50 mg Allergies Allergies Allergy/AdvReac Type Severity Reaction Status Date / Time No Known Allergies Allergy Verified 05/31/21 11:24 Assessment & Plan Assessment & Plan (1) MDD (major depressive disorder), recurrent episode, moderate: Status: Chronic Code(s): F33.1 - Major depressive disorder, recurrent, moderate (2) Cocaine use disorder: Status: Chronic Code(s): F14.10 - Cocaine abuse, uncomplicated (3) Chronic pain syndrome: Status: Chronic Code(s): G89.4 - Chronic pain syndrome (4) Diabetes: Status: Acute Code(s): E11.9 - Type 2 diabetes mellitus without complications Plan Pt is a 61 yo Male with a history of MDD, chronic back and knee pain, ambulates in a wheelchair and long history of crack cocaine abuse, Recently discharged from on 10/15/21 who now presents for depression with SI in the face of relapsing on crack cocaine almost immediately following discharge, not taking medications and dealing with chronic pain. -will continue home meds -Will lower Lamictal down to 50 mg; he was off it for a few weeks; emergency room restarted him on 75 mg which he has tolerated thus far making it unlikely he will have adverse affects, especially if going down to 50 mg. -social work to help with assisted living 7/8 depressed, upset and ashamed with his relapse; intermittent SI Plan: CV Q 15 minute checks Continue home medications except for Lamictal which will be lowered to 50 mg Monitor magnesium; consider replacement I spent minutes with the patient and/or on the patient floor today, greater than?50% of which was spent counseling/coordinating care. Patient educated on: substance abuse Informed Consent: understands Reason for contiued inpatient stay Substantial Risk for: rapid decompensation
[2021-11-01 18:00] VITALS: BP 124/82; PULSE 89; RESP 16; TEMP 36.4; O2SAT 99
[2021-11-01] MEDS: Metoprolol Succinate ER 25 MG TAB.ER.24H PO (19:27)
[2021-11-01] MEDS: QUEtiapine Fumarate 300 MG TABLET PO (19:28)
[2021-11-01] MEDS: Docusate Sodium 100 MG CAPSULE 200 MG PO (19:28)
[2021-11-01] MEDS: Atorvastatin Calcium 40 MG TABLET PO (19:28)
[2021-11-01] MEDS: lamoTRIgine 25 MG TABLET 50 MG PO (19:28)
[2021-11-01] MEDS: traZODone HCL 50 MG TABLET PO (21:33)
[2021-11-01] MEDS: Acetaminophen 325 MG TABLET 650 MG PO (21:33)
[2021-11-02] MEDS: Omeprazole 20 MG CAPSULE.DR PO (06:31)
[2021-11-02] MEDS: DULoxetine HCl 60 MG CAPSULE.DR PO (08:35)
[2021-11-02] MEDS: Buprenorphine/Naloxone 4/1 mg FILM 1 FILM SUBLINGUAL ×4 (08:35→18:31)
[2021-11-02] MEDS: lisinopriL 5 MG TABLET PO (08:36)
[2021-11-02] MEDS: Gabapentin 400 MG CAPSULE 800 MG PO ×3 (08:36→19:47)
[2021-11-02] MEDS: metFORMIN HCl ER 500 MG TAB.ER.24H 1000 MG PO ×2 (08:36→19:47)
[2021-11-02] MEDS: QUEtiapine Fumarate 25 MG TABLET PO (08:36)
[2021-11-02] MEDS: glyBURIDE 5 MG TABLET PO (08:36)
[2021-11-02] MEDS: Magnesium Oxide 400 MG TABLET PO (08:36)
[2021-11-02] MEDS: Fenofibrate 54 MG TABLET PO (08:36)
[2021-11-02 08:45] VITALS: BP 108/62; PULSE 67; RESP 16; TEMP 36.6; O2SAT 95
--- NOTE | 2021-11-02 09:15 | P.PNPSI_ITS ---
Subjective Subjective Date of Service: 11/02/21 Reason For Visit: Major Depression Polysubstance Abuse Crack Alcohol Interim History: Still depressed but starting to feel better. Intermittent SI but less so. Remains focused on getting to an assisted living situation, feeling he cannot r emain sober or take care of himself on his own anymore. Sleeping okay, tolerating medications. Somewhat perseverative on chronic pain. Mental Status Exam Mental Status Exam Narrative: Pt is alert; oriented; behavior is cooperative, calm; dressed in hospital gown, bald head, scruffy perez and marginal hygiene; mood is described as depressed and affect congruent; eye contact appropriate; Speech is hard to understand due to speech impediment or mumbling which is baseline; otherwise, normal rate, volume and prosody and not pressured; no psychomotor agitation/retardation present; thought process goal directed; Thought content is on depression, tx, changing living situation; reports intermittent passive SI; no HI. There is no evidence of perceptual disturbance. Patients insight and judgment are impaired but improving. Diagnostics Vital Signs (24Hr): Vital Signs - 24 hr 11/01/21 18:00 11/02/21 08:45 Temperature 97.5 F 97.8 F Pulse Rate 89 67 Respiratory Rate 16 16 Blood Pressure 124/82 108/62 Pulse Oximetry 99 95 Oxygen Delivery Method Room Air Room Air BMI result Body Mass Index 29.0 Labs Results: 10/29/21 11:21 10/29/21 11:21 Labs: Laboratory Results - last 48 hr 10/31/21 10/31/21 08:12 08:12 Magnesium 1.5 L Triglycerides 256 Cholesterol 127 D LDL Cholesterol, Calc 54 HDL Cholesterol 22 Vitamin B12 389 Folate 5.7 TSH 4.54 H Free T4 0.73 Medications Medications Current Medications Acetaminophen (Acetaminophen 325 Mg Tablet) 650 mg PO Q6H PRN PRN Reason: Headache/Pain Mild Scale (1-3) Last Admin: 11/01/21 21:33 Dose: 650 mg Al Hydroxide/Mg Hydroxide (Magnesium Hydrox/Alum Hydrox 30 Ml Oral.Susp) 30 ml PO Q6H PRN PRN Reason: Heartburn/Nausea Atorvastatin Calcium (Atorvastatin Calcium 40 Mg Tablet) 40 mg PO BEDTIME [facility] Last Admin: 11/01/21 19:28 Dose: 40 mg Buprenorphine/Naloxone (Buprenorphine/Naloxone 4/1 Mg Film) 1 film SUBLINGUAL QID [facility] Last Admin: 11/02/21 08:35 Dose: 1 film Docusate Sodium (Docusate Sodium 100 Mg Capsule) 200 mg PO BEDTIME [facility] Last Admin: 11/01/21 19:28 Dose: 200 mg Duloxetine HCl (Duloxetine Hcl 60 Mg Capsule.Dr) 60 mg PO DAILY [facility] Last Admin: 11/02/21 08:35 Dose: 60 mg Fenofibrate (Fenofibrate 54 Mg Tablet) 54 mg PO DAILY [facility] Last Admin: 11/02/21 08:36 Dose: 54 mg Gabapentin (Gabapentin 400 Mg Capsule) 800 mg PO TID [facility] Last Admin: 11/02/21 08:36 Dose: 800 mg Glyburide (Glyburide 5 Mg Tablet) 5 mg PO DAILY [facility] Last Admin: 11/02/21 08:36 Dose: 5 mg Hydroxyzine HCl (Hydroxyzine Hcl 25 Mg Tablet) 25 mg PO Q6H PRN PRN Reason: Anxiety Last Admin: 11/01/21 21:33 Dose: 25 mg Lamotrigine (Lamotrigine 25 Mg Tablet) 50 mg PO BEDTIME [facility] Last Admin: 11/01/21 19:28 Dose: 50 mg Lisinopril (Lisinopril 5 Mg Tablet) 5 mg PO DAILY [facility]; Protocol Last Admin: 11/02/21 08:36 Dose: 5 mg Magnesium Hydroxide (Milk Of Magnesia 30 Ml Oral.Susp) 30 ml PO DAILY PRN PRN Reason: Constipation Magnesium Oxide (Magnesium Oxide 400 Mg Tablet) 400 mg PO DAILY [facility] Last Admin: 11/02/21 08:36 Dose: 400 mg Metformin HCl (Metformin Hcl Er 500 Mg Tab.Er.24h) 1,000 mg PO BID [facility] Last Admin: 11/02/21 08:36 Dose: 1,000 mg Metoprolol Succinate (Metoprolol Succinate Er 25 Mg Tab.Er.24h) 25 mg PO BEDTIME [facility]; Protocol Last Admin: 11/01/21 19:27 Dose: 25 mg Omeprazole (Omeprazole 20 Mg Capsule.Dr) 20 mg PO DAILY@0630 [facility] Last Admin: 11/02/21 06:31 Dose: 20 mg Pharmacy Consult (Consult Rx Perform Med Rec) 1 each MISCELLANE ONCE PRN PRN Reason: Consult order Quetiapine Fumarate (Quetiapine Fumarate 25 Mg Tablet) 25 mg PO DAILY [facility] Last Admin: 11/02/21 08:36 Dose: 25 mg Quetiapine Fumarate (Quetiapine Fumarate 300 Mg Tablet) 300 mg PO BEDTIME [facility] Last Admin: 11/01/21 19:28 Dose: 300 mg Trazodone HCl (Trazodone Hcl 50 Mg Tablet) 50 mg PO BEDTIME PRN PRN Reason: Insomnia Last Admin: 11/01/21 21:33 Dose: 50 mg Allergies Allergies Allergy/AdvReac Type Severity Reaction Status Date / Time No Known Allergies Allergy Verified 05/31/21 11:24 Assessment & Plan Assessment & Plan (1) MDD (major depressive disorder), recurrent episode, moderate: Status: Chronic Code(s): F33.1 - Major depressive disorder, recurrent, moderate (2) Cocaine use disorder: Status: Chronic Code(s): F14.10 - Cocaine abuse, uncomplicated (3) Chronic pain syndrome: Status: Chronic Code(s): G89.4 - Chronic pain syndrome (4) Diabetes: Status: Acute Code(s): E11.9 - Type 2 diabetes mellitus without complications Plan Pt is a 61 yo Male with a history of MDD, chronic back and knee pain, ambulates in a wheelchair and long history of crack cocaine abuse, Recently discharged from on 10/15/21 who now presents for depression with SI in the face of relapsing on crack cocaine almost immediately following discharge, not taking medications and dealing with chronic pain. -will continue home meds -Will lower Lamictal down to 50 mg; he was off it for a few weeks; emergency room restarted him on 75 mg which he has tolerated thus far making it unlikely he will have adverse affects, especially if going down to 50 mg. -social work to help with assisted living / depressed, upset and ashamed with his relapse; intermittent SI 11/02 remains depressed but mood is improving a little, intermittent SI but less so. Team agrees that patient needs an assisted living situation in order to remain sober in the community. Plan: CV Q 15 minute checks Continue home medications except for Lamictal which will be lowered to 50 mg I spent minutes with the patient and/or on the patient floor today, greater than?50% of which was spent counseling/coordinating care. Patient educated on: substance abuse and therapeutic strategies Informed Consent: understands Reason for contiued inpatient stay Substantial Risk for: rapid decompensation
[2021-11-02 18:00] VITALS: BP 115/79; PULSE 79; RESP 14; TEMP 36.4
[2021-11-02] MEDS: QUEtiapine Fumarate 300 MG TABLET PO (19:47)
[2021-11-02] MEDS: Metoprolol Succinate ER 25 MG TAB.ER.24H PO (19:47)
[2021-11-02] MEDS: Atorvastatin Calcium 40 MG TABLET PO (19:47)
[2021-11-02] MEDS: lamoTRIgine 25 MG TABLET 50 MG PO (19:48)
[2021-11-02] MEDS: Docusate Sodium 100 MG CAPSULE 200 MG PO (19:48)
[2021-11-02] MEDS: traZODone HCL 50 MG TABLET PO (19:48)
[2021-11-03] MEDS: Omeprazole 20 MG CAPSULE.DR PO (07:09)
[2021-11-03 08:52] VITALS: BP 130/72; PULSE 78; RESP 18; TEMP 36.4; O2SAT 97
[2021-11-03] MEDS: Buprenorphine/Naloxone 4/1 mg FILM 1 FILM SUBLINGUAL ×4 (08:54→19:00)
[2021-11-03] MEDS: QUEtiapine Fumarate 25 MG TABLET PO (08:54)
[2021-11-03] MEDS: metFORMIN HCl ER 500 MG TAB.ER.24H 1000 MG PO ×2 (08:54→20:12)
[2021-11-03] MEDS: Magnesium Oxide 400 MG TABLET PO (08:54)
[2021-11-03] MEDS: Gabapentin 400 MG CAPSULE 800 MG PO ×3 (08:54→20:12)
[2021-11-03] MEDS: lisinopriL 5 MG TABLET PO (08:54)
[2021-11-03] MEDS: DULoxetine HCl 60 MG CAPSULE.DR PO (08:54)
[2021-11-03] MEDS: Fenofibrate 54 MG TABLET PO (08:54)
[2021-11-03] MEDS: glyBURIDE 5 MG TABLET PO (08:54)
--- NOTE | 2021-11-03 14:03 | P.PNPSI_ITS ---
Subjective Subjective Date of Service: 11/03/21 Reason For Visit: Major Depression Polysubstance Abuse Crack Alcohol Interim History: Patient says he is still feeling depressed but is also feeling that depression is lessening. He says he is trying to lift his spirits up. Patient denies SI though he says comes and goes intermittently. Patient talked more about going to assisted living and feels like it is the right decision. Mental Status Exam Mental Status Exam Narrative: Pt is alert; oriented; behavior is cooperative, calm; dressed in hospital gown, bald head, scruffy perez and marginal hygiene; mood is described as depressed and affect congruent; eye contact appropriate; Speech is hard to understand due to speech impediment or mumbling which is baseline; otherwise, normal rate, volume and prosody and not pressured; no psychomotor agitation/retardation prese nt; thought process goal directed; Thought content is on depression, tx, changing living situation; reports intermittent passive SI; no HI. There is no evidence of perceptual disturbance. Patients insight and judgment are impaired but improving. Diagnostics Vital Signs (24Hr): Vital Signs - 24 hr 11/02/21 18:00 11/03/21 08:52 Temperature 97.5 F 97.5 F Pulse Rate 79 78 Respiratory Rate 14 18 Blood Pressure 115/79 130/72 Pulse Oximetry 97 Oxygen Delivery Method Room Air BMI result Body Mass Index 29.0 Labs Results: 10/29/21 11:21 10/29/21 11:21 Medications Medications Current Medications Acetaminophen (Acetaminophen 325 Mg Tablet) 650 mg PO Q6H PRN PRN Reason: Headache/Pain Mild Scale (1-3) Last Admin: 11/01/21 21:33 Dose: 650 mg Al Hydroxide/Mg Hydroxide (Magnesium Hydrox/Alum Hydrox 30 Ml Oral.Susp) 30 ml PO Q6H PRN PRN Reason: Heartburn/Nausea Atorvastatin Calcium (Atorvastatin Calcium 40 Mg Tablet) 40 mg PO BEDTIME [facility] Last Admin: 11/02/21 19:47 Dose: 40 mg Buprenorphine/Naloxone (Buprenorphine/Naloxone 4/1 Mg Film) 1 film SUBLINGUAL QID PRN PRN Reason: mod to severe pain Docusate Sodium (Docusate Sodium 100 Mg Capsule) 200 mg PO BEDTIME [facility] Last Admin: 11/02/21 19:48 Dose: 200 mg Duloxetine HCl (Duloxetine Hcl 60 Mg Capsule.Dr) 60 mg PO DAILY [facility] Last Admin: 11/03/21 08:54 Dose: 60 mg Fenofibrate (Fenofibrate 54 Mg Tablet) 54 mg PO DAILY [facility] Last Admin: 11/03/21 08:54 Dose: 54 mg Gabapentin (Gabapentin 400 Mg Capsule) 800 mg PO TID [facility] Last Admin: 11/03/21 08:54 Dose: 800 mg Glyburide (Glyburide 5 Mg Tablet) 5 mg PO DAILY [facility] Last Admin: 11/03/21 08:54 Dose: 5 mg Hydroxyzine HCl (Hydroxyzine Hcl 25 Mg Tablet) 25 mg PO Q6H PRN PRN Reason: Anxiety Last Admin: 11/01/21 21:33 Dose: 25 mg Lamotrigine (Lamotrigine 25 Mg Tablet) 50 mg PO BEDTIME [facility] Last Admin: 11/02/21 19:48 Dose: 50 mg Lisinopril (Lisinopril 5 Mg Tablet) 5 mg PO DAILY [facility]; Protocol Last Admin: 11/03/21 08:54 Dose: 5 mg Magnesium Hydroxide (Milk Of Magnesia 30 Ml Oral.Susp) 30 ml PO DAILY PRN PRN Reason: Constipation Magnesium Oxide (Magnesium Oxide 400 Mg Tablet) 400 mg PO DAILY [facility] Last Admin: 11/03/21 08:54 Dose: 400 mg Metformin HCl (Metformin Hcl Er 500 Mg Tab.Er.24h) 1,000 mg PO BID [facility] Last Admin: 11/03/21 08:54 Dose: 1,000 mg Metoprolol Succinate (Metoprolol Succinate Er 25 Mg Tab.Er.24h) 25 mg PO BEDTIME [facility]; Protocol Last Admin: 11/02/21 19:47 Dose: 25 mg Omeprazole (Omeprazole 20 Mg Capsule.) 20 mg PO DAILY@0630 [facility] Last Admin: 11/03/21 07:09 Dose: 20 mg Pharmacy Consult (Consult Rx Perform Med Rec) 1 each MISCELLANE ONCE PRN PRN Reason: Consult order Quetiapine Fumarate (Quetiapine Fumarate 25 Mg Tablet) 25 mg PO DAILY [facility] Last Admin: 11/03/21 08:54 Dose: 25 mg Quetiapine Fumarate (Quetiapine Fumarate 300 Mg Tablet) 300 mg PO BEDTIME [facility] Last Admin: 11/02/21 19:47 Dose: 300 mg Trazodone HCl (Trazodone Hcl 50 Mg Tablet) 50 mg PO BEDTIME PRN PRN Reason: Insomnia Last Admin: 11/02/21 19:48 Dose: 50 mg Allergies Allergies Allergy/AdvReac Type Severity Reaction Status Date / Time No Known Allergies Allergy Verified 05/31/21 11:24 Assessment & Plan Assessment & Plan (1) MDD (major depressive disorder), recurrent episode, moderate: Status: Chronic Code(s): F33.1 - Major depressive disorder, recurrent, moderate (2) Cocaine use disorder: Status: Chronic Code(s): F14.10 - Cocaine abuse, uncomplicated (3) Chronic pain syndrome: Status: Chronic Code(s): G89.4 - Chronic pain syndrome (4) Diabetes: Status: Acute Code(s): E11.9 - Type 2 diabetes mellitus without complications Plan Pt is a 61 yo Male with a history of MDD, chronic back and knee pain, ambulates in a wheelchair and long history of crack cocaine abuse, Recently discharged from on 10/15/21 who now presents for depression with SI in the face of relapsing on crack cocaine almost immediately following discharge, not taking medications and dealing with chronic pain. -will continue home meds -Will lower Lamictal down to 50 mg; he was off it for a few weeks; emergency room restarted him on 75 mg which he has tolerated thus far making it unlikely he will have adverse affects, especially if going down to 50 mg. -social work to help with assisted living 11/01 depressed, upset and ashamed with his relapse; intermittent SI 11/02 remains depressed but mood is improving a little, intermittent SI but less s o. Team agrees that patient needs an assisted living situation in order to remain sober in the community. 11/03 depression continues to improve; SI or remains intermittent but seems less intense and less frequent. Continue current regimen Plan: CV Q 15 minute checks Continue home medications except for Lamictal which will be lowered to 50 mg I spent minutes with the patient and/or on the patient floor today, greater than?50% of which was spent counseling/coordinating care. Reason for contiued inpatient stay Substantial Risk for: rapid decompensation
[2021-11-03 20:05] VITALS: BP 141/71; PULSE 83; RESP 14; TEMP 36.4
[2021-11-03] MEDS: lamoTRIgine 25 MG TABLET 50 MG PO (20:11)
[2021-11-03] MEDS: Docusate Sodium 100 MG CAPSULE 200 MG PO (20:11)
[2021-11-03] MEDS: traZODone HCL 50 MG TABLET PO (20:12)
[2021-11-03] MEDS: QUEtiapine Fumarate 300 MG TABLET PO (20:12)
[2021-11-03] MEDS: Metoprolol Succinate ER 25 MG TAB.ER.24H PO (20:12)
[2021-11-03] MEDS: Atorvastatin Calcium 40 MG TABLET PO (20:12)
[2021-11-03 20:37] LABS: Glucose, Whole Blood 147 mg/dL (60-115)
[2021-11-04] MEDS: Omeprazole 20 MG CAPSULE.DR PO (05:32)
[2021-11-04] MEDS: Buprenorphine/Naloxone 4/1 mg FILM 1 FILM SUBLINGUAL ×4 (05:32→20:32)
[2021-11-04] MEDS: Gabapentin 400 MG CAPSULE 800 MG PO ×3 (08:13→21:09)
[2021-11-04] MEDS: Fenofibrate 54 MG TABLET PO (08:13)
[2021-11-04] MEDS: lisinopriL 5 MG TABLET PO (08:13)
[2021-11-04] MEDS: glyBURIDE 5 MG TABLET PO (08:13)
[2021-11-04] MEDS: DULoxetine HCl 60 MG CAPSULE.DR PO (08:14)
[2021-11-04] MEDS: metFORMIN HCl ER 500 MG TAB.ER.24H 1000 MG PO ×2 (08:14→21:08)
[2021-11-04] MEDS: Magnesium Oxide 400 MG TABLET PO (08:14)
[2021-11-04] MEDS: QUEtiapine Fumarate 25 MG TABLET PO (08:14)
[2021-11-04 08:17] VITALS: BP 102/69; PULSE 64; RESP 14; TEMP 36.3; O2SAT 96
[2021-11-04 09:16] LABS: Anion Gap 10 (12-20); Blood Urea Nitrogen 11 mg/dL (9-16); Calcium 8.8 mg/dL (8.4-10.2); Carbon Dioxide 26 mmol/L (22-29); Chloride 100 mmol/L (96-108); Estimated Glomerular Filt Rate > 60; Glucose Random 145 mg/dL (60-115); Potassium 4.2 mmol/L (3.3-5.1); Sodium 132 mmol/L (135-145)
--- NOTE | 2021-11-04 10:45 | HO.PSYCHPN ---
Subjective Subjective Date of Service: 11/04/21 Reason For Visit: Major Depression Polysubstance Abuse Crack Alcohol Interim History: Patient reports mood is overall little better but still prone to feeling When he thinks of his physical condition and situation. Mental Status Exam Mental Status Exam Narrative: Pt is alert; oriented; behavior is cooperative, calm; dressed in hospital gown, bald head, scruffy perez and marginal hygiene; mood is described as depressed and affect congruent; eye contact appropriate; Speech is hard to understand due to speech impediment or mumbling which is baseline; otherwise, normal rate, volume and prosody and not pressured; no psychomotor agitation/retardation present; thought process goal directed; Thought content is on depression, tx, changing living situation; reports intermittent passive SI; no HI. There is no evidence of perceptual disturbance. Patients insight and judgment are impaired but improving. Diagnostics Vital Signs (24Hr): Vital Signs - 24 hr 11/03/21 20:05 11/04/21 08:17 Temperature 97.5 F 97.4 F Pulse Rate 83 64 Respiratory Rate 14 14 Blood Pressure 141/71 H 102/69 Pulse Oximetry 96 Oxygen Delivery Method Room Air BMI result Body Mass Index 29.0 Labs Results: 10/29/21 11:21 11/04/21 08:54 Labs: Laboratory Results - last 48 hr 11/03/21 11/04/21 20:32 08:54 Sodium 132 L Potassium 4.2 Chloride 100 Carbon Dioxide 26 Anion Gap 10 L BUN 11 Creatinine 0.72 Estim Creat Clear Calc 107.0 Estimated GFR > 60 POC Glucose 147 H Random Glucose 145 H Calcium 8.8 Medications Medications Current Medications Acetaminophen (Acetaminophen 325 Mg Tablet) 650 mg PO Q6H PRN PRN Reason: Headache/Pain Mild Scale (1-3) Last Admin: 11/01/21 21:33 Dose: 650 mg Al Hydroxide/Mg Hydroxide (Magnesium Hydrox/Alum Hydrox 30 Ml Oral.Susp) 30 ml PO Q6H PRN PRN Reason: Heartburn/Nausea Atorvastatin Calcium (Atorvastatin Calcium 40 Mg Tablet) 40 mg PO BEDTIME [facility] Last Admin: 11/03/21 20:12 Dose: 40 mg Buprenorphine/Naloxone (Buprenorphine/Naloxone 4/1 Mg Film) 1 film SUBLINGUAL QID PRN PRN Reason: mod to severe pain Last Admin: 11/04/21 05:32 Dose: 1 film Docusate Sodium (Docusate Sodium 100 Mg Capsule) 200 mg PO BEDTIME [facility] Last Admin: 11/03/21 20:11 Dose: 200 mg Duloxetine HCl (Duloxetine Hcl 60 Mg Capsule.) 60 mg PO DAILY [facility] Last Admin: 11/04/21 08:14 Dose: 60 mg Fenofibrate (Fenofibrate 54 Mg Tablet) 54 mg PO DAILY [facility] Last Admin: 11/04/21 08:13 Dose: 54 mg Gabapentin (Gabapentin 400 Mg Capsule) 800 mg PO TID [facility] Last Admin: 11/04/21 08:13 Dose: 800 mg Glyburide (Glyburide 5 Mg Tablet) 5 mg PO DAILY [facility] Last Admin: 11/04/21 08:13 Dose: 5 mg Hydroxyzine HCl (Hydroxyzine Hcl 25 Mg Tablet) 25 mg PO Q6H PRN PRN Reason: Anxiety Last Admin: 11/01/21 21:33 Dose: 25 mg Lamotrigine (Lamotrigine 25 Mg Tablet) 50 mg PO BEDTIME [facility] Last Admin: 11/03/21 20:11 Dose: 50 mg Lisinopril (Lisinopril 5 Mg Tablet) 5 mg PO DAILY [facility]; Protocol Last Admin: 11/04/21 08:13 Dose: 5 mg Magnesium Hydroxide (Milk Of Magnesia 30 Ml Oral.Susp) 30 ml PO DAILY PRN PRN Reason: Constipation Magnesium Oxide (Magnesium Oxide 400 Mg Tablet) 400 mg PO DAILY [facility] Last Admin: 11/04/21 08:14 Dose: 400 mg Metformin HCl (Metformin Hcl Er 500 Mg Tab.Er.24h) 1,000 mg PO BID [facility] Last Admin: 11/04/21 08:14 Dose: 1,000 mg Metoprolol Succinate (Metoprolol Succinate Er 25 Mg Tab.Er.24h) 25 mg PO BEDTIME [facility]; Protocol Last Admin: 11/03/21 20:12 Dose: 25 mg Omeprazole (Omeprazole 20 Mg Capsule.) 20 mg PO DAILY@0630 [facility] Last Admin: 11/04/21 05:32 Dose: 20 mg Pharmacy Consult (Consult Rx Perform Med Rec) 1 each MISCELLANE ONCE PRN PRN Reason: Consult order Quetiapine Fumarate (Quetiapine Fumarate 25 Mg Tablet) 25 mg PO DAILY [facility] Last Admin: 11/04/21 08:14 Dose: 25 mg Quetiapine Fumarate (Quetiapine Fumarate 300 Mg Tablet) 300 mg PO BEDTIME [facility] Last Admin: 11/03/21 20:12 Dose: 300 mg Trazodone HCl (Trazodone Hcl 50 Mg Tablet) 50 mg PO BEDTIME PRN PRN Reason: Insomnia Last Admin: 11/03/21 20:12 Dose: 50 mg Allergies Allergies Allergy/AdvReac Type Severity Reaction Status Date / Time No Known Allergies Allergy Verified 05/31/21 11:24 Assessment & Plan Assessment & Plan (1) MDD (major depressive disorder), recurrent episode, moderate: Status: Chronic Code(s): F33.1 - Major depressive disorder, recurrent, moderate (2) Cocaine use disorder: Status: Chronic Code(s): F14.10 - Cocaine abuse, uncomplicated (3) Chronic pain syndrome: Status: Chronic Code(s): G89.4 - Chronic pain syndrome (4) Diabetes: Status: Acute Code(s): E11.9 - Type 2 diabetes mellitus without complications Plan Pt is a 61 yo Male with a history of MDD, chronic back and knee pain, ambulates in a wheelchair and long history of crack cocaine abuse, Recently discharged from on 10/15/21 who now presents for depression with SI in the face of relapsing on crack cocaine almost immediately following discharge, not taking medications and dealing with chronic pain. -will continue home meds -Will lower Lamictal down to 50 mg; he was off it for a few weeks; emergency room restarted him on 75 mg which he has tolerated thus far making it unlikely he will have adverse affects, especially if going down to 50 mg. -social work to help with assisted living 11/01 depressed, upset and ashamed with his relapse; intermittent SI 11/02 remains depressed but mood is improving a little, intermittent SI but less so. Team agrees that patient needs an assisted living situation in order to remain sober in the community. 11/03 depression continues to improve; SI or remains intermittent but seems less intense and less frequent. Continue current regimen 11/04 Patient's mood continues to improve though slowly. SI remains intermittent though passive. Will continue current regimen. Team agrees that patient remains vulnerable to relapse and decompensation and would benefit from substance abuse program. Patient however prefers to go to assisted living Plan: CV Q 15 minute checks Titrate Lamictal Continue home medications I spent minutes with the patient and/or on the patient floor today, greater than?50% of which was spent counseling/coordinating care. Patient educated on: therapeutic strategies Informed Consent: understands Reason for contiued inpatient stay Substantial Risk for: rapid decompensation
[2021-11-04 17:46] VITALS: BP 130/70; PULSE 79; RESP 16; TEMP 36.1; O2SAT 98
[2021-11-04 21:05] VITALS: BP 113/68; PULSE 77
[2021-11-04] MEDS: Docusate Sodium 100 MG CAPSULE 200 MG PO (21:06)
[2021-11-04] MEDS: traZODone HCL 50 MG TABLET PO (21:08)
[2021-11-04] MEDS: lamoTRIgine 25 MG TABLET 50 MG PO (21:08)
[2021-11-04] MEDS: Atorvastatin Calcium 40 MG TABLET PO (21:08)
[2021-11-04] MEDS: QUEtiapine Fumarate 300 MG TABLET PO (21:09)
[2021-11-04] MEDS: Metoprolol Succinate ER 25 MG TAB.ER.24H PO (21:09)
[2021-11-05 06:00] VITALS: BP 134/99; PULSE 112; RESP 16; O2SAT 98
[2021-11-05] MEDS: Buprenorphine/Naloxone 4/1 mg FILM 1 FILM SUBLINGUAL ×4 (06:18→18:56)
[2021-11-05] MEDS: Omeprazole 20 MG CAPSULE.DR PO (06:18)
[2021-11-05] MEDS: Gabapentin 400 MG CAPSULE 800 MG PO ×3 (09:18→20:04)
[2021-11-05] MEDS: QUEtiapine Fumarate 25 MG TABLET PO (09:18)
[2021-11-05] MEDS: metFORMIN HCl ER 500 MG TAB.ER.24H 1000 MG PO ×2 (09:19→20:03)
[2021-11-05] MEDS: Fenofibrate 54 MG TABLET PO (09:19)
[2021-11-05] MEDS: Magnesium Oxide 400 MG TABLET PO (09:19)
[2021-11-05] MEDS: DULoxetine HCl 60 MG CAPSULE.DR PO (09:19)
[2021-11-05] MEDS: glyBURIDE 5 MG TABLET PO (09:19)
[2021-11-05] MEDS: lisinopriL 5 MG TABLET PO (09:19)
--- NOTE | 2021-11-05 17:16 | HO.PSYCHPN ---
Subjective Subjective Date of Service: 11/05/21 Reason For Visit: Major Depression Polysubstance Abuse Crack Alcohol Interim History: Patient became upset and depressed today as he found out that assisted living facility feels patient needs substance abuse treatment before they were able to consider him and his application. Patient does not disagree but reports he gets very anxious when confronted with the idea of having to go to a substance abuse program, feeling vulnerable; he reports being taken advantage of due to his immobility at a prior substance abuse treatment program and feels triggered by the idea and had an upsurge of Suicidal thinking. Patient did not elaborate further but his distress was evident. Patient however was able to talk through his feelings and again was able to agreed that it was not in unfair request for him to attend treatment prior to being considered for application to an assisted living facility. Patient said he needed a little time to wrap his mind around it Mental Status Exam Mental Status Exam Narrative: Pt is alert; oriented; behavior is cooperative, calm; dressed in hospital gown, bald head, scruffy perez and marginal hygiene; mood is described as Anxious and affect congruent; eye contact appropriate; Speech is hard to understand due to speech impediment or mumbling which is baseline; otherwise, normal rate, volume and prosody and not pressured; no psychomotor agitation/retardation present; thought process goal directed; Thought content is on depression, tx, changing living situation; Some brief, active SI; otherwise reports intermittent passive SI; no HI. There is no evidence of perceptual disturbance. Patients insight and judgment are impaired but improving. Diagnostics Vital Signs (24Hr): Vital Signs - 24 hr 11/04/21 17:46 11/04/21 21:05 11/05/21 06:00 Temperature 97.0 F Pulse Rate 79 77 112 H Respiratory Rate 16 16 Blood Pressure 130/70 113/68 134/99 H Pulse Oximetry 98 98 Oxygen Delivery Method Room Air Room Air BMI result Body Mass Index 29.0 Labs Results: 10/29/21 11:21 11/04/21 08:54 Labs: Laboratory Results - last 48 hr 11/03/21 11/04/21 20:32 08:54 Sodium 132 L Potassium 4.2 Chloride 100 Carbon Dioxide 26 Anion Gap 10 L BUN 11 Creatinine 0.72 Estim Creat Clear Calc 107.0 Estimated GFR > 60 POC Glucose 147 H Random Glucose 145 H Calcium 8.8 Medications Medications Current Medications Acetaminophen (Acetaminophen 325 Mg Tablet) 650 mg PO Q6H PRN PRN Reason: Headache/Pain Mild Scale (1-3) Last Admin: 11/01/21 21:33 Dose: 650 mg Al Hydroxide/Mg Hydroxide (Magnesium Hydrox/Alum Hydrox 30 Ml Oral.Susp) 30 ml PO Q6H PRN PRN Reason: Heartburn/Nausea Atorvastatin Calcium (Atorvastatin Calcium 40 Mg Tablet) 40 mg PO BEDTIME [facility] Last Admin: 11/04/21 21:08 Dose: 40 mg Buprenorphine/Naloxone (Buprenorphine/Naloxone 4/1 Mg Film) 1 film SUBLINGUAL Q4H PRN PRN Reason: mod to severe pain Last Admin: 11/05/21 14:27 Dose: 1 film Docusate Sodium (Docusate Sodium 100 Mg Capsule) 200 mg PO BEDTIME [facility] Last Admin: 11/04/21 21:06 Dose: 200 mg Duloxetine HCl (Duloxetine Hcl 60 Mg Capsule.Dr) 60 mg PO DAILY [facility] Last Admin: 11/05/21 09:19 Dose: 60 mg Fenofibrate (Fenofibrate 54 Mg Tablet) 54 mg PO DAILY [facility] Last Admin: 11/05/21 09:19 Dose: 54 mg Gabapentin (Gabapentin 400 Mg Capsule) 800 mg PO TID [facility] Last Admin: 11/05/21 14:27 Dose: 800 mg Glyburide (Glyburide 5 Mg Tablet) 5 mg PO DAILY [facility] Last Admin: 11/05/21 09:19 Dose: 5 mg Lamotrigine (Lamotrigine 25 Mg Tablet) 50 mg PO BEDTIME [facility] Last Admin: 11/04/21 21:08 Dose: 50 mg Lisinopril (Lisinopril 5 Mg Tablet) 5 mg PO DAILY [facility]; Protocol Last Admin: 11/05/21 09:19 Dose: 5 mg Magnesium Hydroxide (Milk Of Magnesia 30 Ml Oral.Susp) 30 ml PO DAILY PRN PRN Reason: Constipation Magnesium Oxide (Magnesium Oxide 400 Mg Tablet) 400 mg PO DAILY [facility] Last Admin: 11/05/21 09:19 Dose: 400 mg Metformin HCl (Metformin Hcl Er 500 Mg Tab.Er.24h) 1,000 mg PO BID [facility] Last Admin: 11/05/21 09:19 Dose: 1,000 mg Metoprolol Succinate (Metoprolol Succinate Er 25 Mg Tab.Er.24h) 25 mg PO BEDTIME [facility]; Protocol Last Admin: 11/04/21 21:09 Dose: 25 mg Omeprazole (Omeprazole 20 Mg Capsule.Dr) 20 mg PO DAILY@0630 [facility] Last Admin: 11/05/21 06:18 Dose: 20 mg Pharmacy Consult (Consult Rx Perform Med Rec) 1 each MISCELLANE ONCE PRN PRN Reason: Consult order Quetiapine Fumarate (Quetiapine Fumarate 25 Mg Tablet) 25 mg PO DAILY [facility] Last Admin: 11/05/21 09:18 Dose: 25 mg Quetiapine Fumarate (Quetiapine Fumarate 300 Mg Tablet) 300 mg PO BEDTIME [facility] Last Admin: 11/04/21 21:09 Dose: 300 mg Trazodone HCl (Trazodone Hcl 50 Mg Tablet) 50 mg PO BEDTIME PRN PRN Reason: Insomnia Last Admin: 11/04/21 21:08 Dose: 50 mg Allergies Allergies Allergy/AdvReac Type Severity Reaction Status Date / Time No Known Allergies Allergy Verified 05/31/21 11:24 Assessment & Plan Assessment & Plan (1) MDD (major depressive disorder), recurrent episode, moderate: Status: Chronic Code(s): F33.1 - Major depressive disorder, recurrent, moderate (2) Cocaine use disorder: Status: Chronic Code(s): F14.10 - Cocaine abuse, uncomplicated (3) Chronic pain syndrome: Status: Chronic Code(s): G89.4 - Chronic pain syndrome (4) Diabetes: Status: Acute Code(s): E11.9 - Type 2 diabetes mellitus without complications Plan Pt is a 61 yo Male with a history of MDD, chronic back and knee pain, ambulates in a wheelchair and long history of crack cocaine abuse, Recently discharged from on 10/15/21 who now presents for depression with SI in the face of relapsing on crack cocaine almost immediately following discharge, not taking medications and dealing with chronic pain. -will continue home meds -Will lower Lamictal down to 50 mg; he was off it for a few weeks; emergency room restarted him on 75 mg which he has tolerated thus far making it unlikely he will have adverse affects, especially if going down to 50 mg. -social work to help with assisted living 11/01 depressed, upset and ashamed with his relapse; intermittent SI 11/02 remains depressed but mood is improving a little, intermittent SI but less so. Team agrees that patient needs an assisted living situation in order to remain sober in the community. 11/03 depression continues to improve; SI or remains intermittent but seems less intense and less frequent. Continue current regimen 11/04 Patient's mood continues to improve though slowly. SI remains intermittent though passive. Will continue current regimen. Team agrees that patient remains vulnerable to relapse and decompensation and would benefit from substance abuse program. Patient however prefers to go to assisted living 11/05 Patient got anxious and triggered thinking about going to a substance abuse treatment program, having been to 1 in the past where he was taking advantage of by peers; had a brief moment of active SI which resolved. Patient understands the reasoning behind attending treatment prior to being considered for application to assisted living facility and agrees to proceed with application for substance abuse treatment Plan: CV Q 15 minute checks Titrate Lamictal Continue home medications I spent minutes with the patient and/or on the patient floor today, greater than?50% of which was spent counseling/coordinating care. Patient educated on: diagnosis and substance abuse Informed Consent: understands Reason for contiued inpatient stay Substantial Risk for: rapid decompensation
[2021-11-05 19:50] VITALS: BP 127/69; PULSE 79; TEMP 36.1; O2SAT 96
[2021-11-05] MEDS: lamoTRIgine 25 MG TABLET 50 MG PO (20:04)
[2021-11-05] MEDS: Metoprolol Succinate ER 25 MG TAB.ER.24H PO (20:04)
[2021-11-05] MEDS: traZODone HCL 50 MG TABLET PO (20:04)
[2021-11-05] MEDS: QUEtiapine Fumarate 300 MG TABLET PO (20:04)
[2021-11-05] MEDS: Docusate Sodium 100 MG CAPSULE 200 MG PO (20:04)
[2021-11-05] MEDS: Atorvastatin Calcium 40 MG TABLET PO (20:04)
[2021-11-05 21:05] LABS: Glucose, Whole Blood 158 mg/dL (60-115)
[2021-11-06 06:00] VITALS: BP 122/73; PULSE 68; TEMP 36.3; O2SAT 93
[2021-11-06] MEDS: Omeprazole 20 MG CAPSULE.DR PO (06:27)
[2021-11-06] MEDS: Buprenorphine/Naloxone 4/1 mg FILM 1 FILM SUBLINGUAL ×4 (06:27→18:35)
[2021-11-06] MEDS: Gabapentin 400 MG CAPSULE 800 MG PO ×3 (09:14→20:30)
[2021-11-06] MEDS: Magnesium Oxide 400 MG TABLET PO (09:14)
[2021-11-06] MEDS: metFORMIN HCl ER 500 MG TAB.ER.24H 1000 MG PO ×2 (09:14→20:27)
[2021-11-06] MEDS: Fenofibrate 54 MG TABLET PO (09:15)
[2021-11-06] MEDS: QUEtiapine Fumarate 25 MG TABLET PO (09:15)
[2021-11-06] MEDS: glyBURIDE 5 MG TABLET PO (09:15)
[2021-11-06] MEDS: lisinopriL 5 MG TABLET PO (09:15)
[2021-11-06] MEDS: DULoxetine HCl 60 MG CAPSULE.DR PO (09:15)
[2021-11-06 12:06] LABS: Glucose, Whole Blood 124 mg/dL (60-115)
--- NOTE | 2021-11-06 15:31 | HO.PSYCHPN ---
Subjective Subjective Date of Service: 11/06/21 Reason For Visit: Major Depression Polysubstance Abuse Crack Alcohol Interim History: Patient mood is better, no SI, affect is noticeably brighter and patient is interactive in the milieu, playing games and socializing. Patient intermittently makes appropriate jokes with staff and peers. He remains anxious about the idea of going to substance abuse treatment program because of the unknown quantities, however he reports he remains committed to doing so. Mental Status Exam Mental Status Exam Narrative: Pt is alert; oriented; behavior is cooperative, calm; dressed in hospital gown, bald head, scruffy perez and marginal hygiene; mood is described as ok and affect congruent, brighter; eye contact appropriate; Speech is hard to understand due to speech impediment or mumbling which is baseline; otherwise, normal rate, volume and prosody and not pressured; no psychomotor agitation/retardation present; thought process goal directed; Thought content is on treatment, changing living situation; denies SI or HI; no AVH and There is no evidence of perceptual disturbance. Patients insight and judgment are fair and adequate Diagnostics Vital Signs (24Hr): Vital Signs - 24 hr 11/05/21 19:50 11/06/21 06:00 Temperature 96.9 F 97.3 F Pulse Rate 79 68 Blood Pressure 127/69 122/73 Pulse Oximetry 96 93 Oxygen Delivery Method Room Air Room Air BMI result Body Mass Index 29.0 Labs Results: 10/29/21 11:21 11/04/21 08:54 Labs: Laboratory Results - last 48 hr 11/05/21 11/06/21 19:56 12:00 POC Glucose 158 H 124 H Medications Medications Current Medications Acetaminophen (Acetaminophen 325 Mg Tablet) 650 mg PO Q6H PRN PRN Reason: Headache/Pain Mild Scale (1-3) Last Admin: 11/01/21 21:33 Dose: 650 mg Al Hydroxide/Mg Hydroxide (Magnesium Hydrox/Alum Hydrox 30 Ml Oral.Susp) 30 ml PO Q6H PRN PRN Reason: Heartburn/Nausea Atorvastatin Calcium (Atorvastatin Calcium 40 Mg Tablet) 40 mg PO BEDTIME [facility] Last Admin: 11/05/21 20:04 Dose: 40 mg Buprenorphine/Naloxone (Buprenorphine/Naloxone 4/1 Mg Film) 1 film SUBLINGUAL Q4H PRN PRN Reason: mod to severe pain Last Admin: 11/06/21 14:28 Dose: 1 film Docusate Sodium (Docusate Sodium 100 Mg Capsule) 200 mg PO BEDTIME [facility] Last Admin: 11/05/21 20:04 Dose: 200 mg Duloxetine HCl (Duloxetine Hcl 60 Mg Capsule.) 60 mg PO DAILY [facility] Last Admin: 11/06/21 09:15 Dose: 60 mg Fenofibrate (Fenofibrate 54 Mg Tablet) 54 mg PO DAILY [facility] Last Admin: 11/06/21 09:15 Dose: 54 mg Gabapentin (Gabapentin 400 Mg Capsule) 800 mg PO TID [facility] Last Admin: 11/06/21 14:28 Dose: 800 mg Glyburide (Glyburide 5 Mg Tablet) 5 mg PO DAILY [facility] Last Admin: 11/06/21 09:15 Dose: 5 mg Lamotrigine (Lamotrigine 25 Mg Tablet) 50 mg PO BEDTIME [facility] Last Admin: 11/05/21 20:04 Dose: 50 mg Lisinopril (Lisinopril 5 Mg Tablet) 5 mg PO DAILY [facility]; Protocol Last Admin: 11/06/21 09:15 Dose: 5 mg Magnesium Hydroxide (Milk Of Magnesia 30 Ml Oral.Susp) 30 ml PO DAILY PRN PRN Reason: Constipation Magnesium Oxide (Magnesium Oxide 400 Mg Tablet) 400 mg PO DAILY [facility] Last Admin: 11/06/21 09:14 Dose: 400 mg Metformin HCl (Metformin Hcl Er 500 Mg Tab.Er.24h) 1,000 mg PO BID [facility] Last Admin: 11/06/21 09:14 Dose: 1,000 mg Metoprolol Succinate (Metoprolol Succinate Er 25 Mg Tab.Er.24h) 25 mg PO BEDTIME [facility]; Protocol Last Admin: 11/05/21 20:04 Dose: 25 mg Omeprazole (Omeprazole 20 Mg Capsule.) 20 mg PO DAILY@0630 [facility] Last Admin: 11/06/21 06:27 Dose: 20 mg Pharmacy Consult (Consult Rx Perform Med Rec) 1 each MISCELLANE ONCE PRN PRN Reason: Consult order Quetiapine Fumarate (Quetiapine Fumarate 25 Mg Tablet) 25 mg PO DAILY [facility] Last Admin: 11/06/21 09:15 Dose: 25 mg Quetiapine Fumarate (Quetiapine Fumarate 300 Mg Tablet) 300 mg PO BEDTIME [facility] Last Admin: 11/05/21 20:04 Dose: 300 mg Trazodone HCl (Trazodone Hcl 50 Mg Tablet) 50 mg PO BEDTIME PRN PRN Reason: Insomnia Last Admin: 11/05/21 20:04 Dose: 50 mg Allergies Allergies Allergy/AdvReac Type Severity Reaction Status Date / Time No Known Allergies Allergy Verified 05/31/21 11:24 Assessment & Plan Assessment & Plan (1) MDD (major depressive disorder), recurrent episode, moderate: Status: Chronic Code(s): F33.1 - Major depressive disorder, recurrent, moderate (2) Cocaine use disorder: Status: Chronic Code(s): F14.10 - Cocaine abuse, uncomplicated (3) Chronic pain syndrome: Status: Chronic Code(s): G89.4 - Chronic pain syndrome (4) Diabetes: Status: Acute Code(s): E11.9 - Type 2 diabetes mellitus without complications Plan Pt is a 61 yo Male with a history of MDD, chronic back and knee pain, ambulates in a wheelchair and long history of crack cocaine abuse, Recently discharged from on 10/15/21 who now presents for depression with SI in the face of relapsing on crack cocaine almost immediately following discharge, not taking medications and dealing with chronic pain. -will continue home meds -Will lower Lamictal down to 50 mg; he was off it for a few weeks; emergency room restarted him on 75 mg which he has tolerated thus far making it unlikely he will have adverse affects, especially if going down to 50 mg. -social work to help with assisted living 11/01 depressed, upset and ashamed with his relapse; intermittent SI 11/02 remains depressed but mood is improving a little, intermittent SI but less so. Team agrees that patient needs an assisted living situation in order to remain sober in the community. 11/03 depression continues to improve; SI or remains intermittent but seems less intense and less frequent. Continue current regimen 11/04 Patient's mood continues to improve though slowly. SI remains intermittent though passive. Will continue current regimen. Team agrees that patient remains vulnerable to relapse and decompensation and would benefit from substance abuse program. Patient however prefers to go to assisted living 11/05 Patient got anxious and triggered thinking about going to a substance abuse treatment program, having been to 1 in the past where he was taking advantage of by peers; had a brief moment of active SI which resolved. Patient understands the reasoning behind attending treatment prior to being considered for application to assisted living facility and agrees to proceed with application for substance abuse treatment 11/06 mood is improved. No SI. Patient anxious about attending substance abuse program however remains committed to doing so. Plan: CV Q 15 minute checks Titrate Lamictal Continue home medications I spent minutes with the patient and/or on the patient floor today, greater than?50% of which was spent counseling/coordinating care. Patient educated on: substance abuse and therapeutic strategies Informed Consent: understands Reason for contiued inpatient stay Substantial Risk for: stable for discharge
[2021-11-06] MEDS: QUEtiapine Fumarate 50 MG TABLET PO (17:37)
[2021-11-06 20:20] VITALS: BP 130/71; PULSE 79; TEMP 36.3
[2021-11-06] MEDS: Docusate Sodium 100 MG CAPSULE 200 MG PO (20:27)
[2021-11-06] MEDS: lamoTRIgine 25 MG TABLET 50 MG PO (20:28)
[2021-11-06] MEDS: QUEtiapine Fumarate 300 MG TABLET PO (20:29)
[2021-11-06] MEDS: Atorvastatin Calcium 40 MG TABLET PO (20:29)
[2021-11-06] MEDS: Metoprolol Succinate ER 25 MG TAB.ER.24H PO (20:30)
[2021-11-06] MEDS: traZODone HCL 50 MG TABLET PO (20:31)
[2021-11-06 22:08] LABS: Glucose, Whole Blood 200 mg/dL (60-115)
[2021-11-07] MEDS: Buprenorphine/Naloxone 4/1 mg FILM 1 FILM SUBLINGUAL ×4 (06:04→18:50)
[2021-11-07] MEDS: Omeprazole 20 MG CAPSULE.DR PO (06:04)
[2021-11-07 08:29] VITALS: BP 138/74; PULSE 72; RESP 16; O2SAT 94
[2021-11-07] MEDS: QUEtiapine Fumarate 25 MG TABLET PO (08:30)
[2021-11-07] MEDS: glyBURIDE 5 MG TABLET PO (08:30)
[2021-11-07] MEDS: Gabapentin 400 MG CAPSULE 800 MG PO ×3 (08:30→20:16)
[2021-11-07] MEDS: Fenofibrate 54 MG TABLET PO (08:30)
[2021-11-07] MEDS: DULoxetine HCl 60 MG CAPSULE.DR PO (08:30)
[2021-11-07] MEDS: metFORMIN HCl ER 500 MG TAB.ER.24H 1000 MG PO ×2 (08:30→20:14)
[2021-11-07] MEDS: lisinopriL 5 MG TABLET PO (08:30)
[2021-11-07] MEDS: Magnesium Oxide 400 MG TABLET PO (08:30)
[2021-11-07 14:13] VITALS: BMI 31.9
--- NOTE | 2021-11-07 16:19 | HO.PSYCHPN ---
Subjective Subjective Date of Service: 11/07/21 Reason For Visit: Major Depression Polysubstance Abuse Crack Alcohol Interim History: Patient reports he came to a conclusion that he does not want assisted living. Patient says he feels good about the decision. Depression resolved and no SI and patient feels ready to discharge home. He shared that if he can get his rent paid with direct deposits it will not available to use for cocaine, and he will no longer be in danger of losing his apartment; with this plan, he says something to the effect that it will no longer matter if he uses are not, since he will be able to continue living in his apartment. He said this will alleviate sizable portion of his anxiety. He also says the Suboxone has taking the edge off his pain which is another major source of anxiety. Sales Support Coordinator discussed that patient does not seem quite ready to fully commit to sobriety to which patient agreed Sales Support Coordinator discussed this with school social worker who says that his out reach team as tried before to get him to initiate direct deposit, however he changes his mind at the last minute not sure he wants to be without the money. Mental Status Exam Mental Status Exam Narrative: Pt is alert; oriented; behavior is cooperative, calm; dressed in hospital gown, bald head, scruffy perez and marginal hygiene; mood is described as ok and affect congruent, brighter; eye contact appropriate; Speech is hard to understand due to speech impediment or mumbling which is baseline; otherwise, normal rate, volume and prosody and not pressured; no psychomotor agitation/retardation present; thought process goal directed; Thought content is on treatment, changing living situation; denies SI or HI; no AVH and There is no evidence of perceptual disturbance. Patients insight and judgment are fair and adequate Diagnostics Vital Signs (24Hr): Vital Signs - 24 hr 11/06/21 20:20 11/07/21 08:29 Temperature 97.3 F Pulse Rate 79 72 Respiratory Rate 16 Blood Pressure 130/71 138/74 Pulse Oximetry 94 Oxygen Delivery Method Room Air BMI result Body Mass Index 31.9 Labs Results: 10/29/21 11:21 11/04/21 08:54 Labs: Laboratory Results - last 48 hr 11/05/21 11/06/21 11/06/21 19:56 12:00 22:03 POC Glucose 158 H 124 H 200 H Medications Medications Current Medications Acetaminophen (Acetaminophen 325 Mg Tablet) 650 mg PO Q6H PRN PRN Reason: Headache/Pain Mild Scale (1-3) Last Admin: 11/01/21 21:33 Dose: 650 mg Al Hydroxide/Mg Hydroxide (Magnesium Hydrox/Alum Hydrox 30 Ml Oral.Susp) 30 ml PO Q6H PRN PRN Reason: Heartburn/Nausea Atorvastatin Calcium (Atorvastatin Calcium 40 Mg Tablet) 40 mg PO BEDTIME [facility] Last Admin: 11/06/21 20:29 Dose: 40 mg Buprenorphine/Naloxone (Buprenorphine/Naloxone 4/1 Mg Film) 1 film SUBLINGUAL Q4H PRN PRN Reason: mod to severe pain Last Admin: 11/07/21 14:43 Dose: 1 film Docusate Sodium (Docusate Sodium 100 Mg Capsule) 200 mg PO BEDTIME [facility] Last Admin: 11/06/21 20:27 Dose: 200 mg Duloxetine HCl (Duloxetine Hcl 60 Mg Capsule.Dr) 60 mg PO DAILY [facility] Last Admin: 11/07/21 08:30 Dose: 60 mg Fenofibrate (Fenofibrate 54 Mg Tablet) 54 mg PO DAILY [facility] Last Admin: 11/07/21 08:30 Dose: 54 mg Gabapentin (Gabapentin 400 Mg Capsule) 800 mg PO TID [facility] Last Admin: 11/07/21 14:38 Dose: 800 mg Glyburide (Glyburide 5 Mg Tablet) 5 mg PO DAILY [facility] Last Admin: 11/07/21 08:30 Dose: 5 mg Lamotrigine (Lamotrigine 25 Mg Tablet) 50 mg PO BEDTIME [facility] Last Admin: 11/06/21 20:28 Dose: 50 mg Lisinopril (Lisinopril 5 Mg Tablet) 5 mg PO DAILY [facility]; Protocol Last Admin: 11/07/21 08:30 Dose: 5 mg Magnesium Hydroxide (Milk Of Magnesia 30 Ml Oral.Susp) 30 ml PO DAILY PRN PRN Reason: Constipation Magnesium Oxide (Magnesium Oxide 400 Mg Tablet) 400 mg PO DAILY [facility] Last Admin: 11/07/21 08:30 Dose: 400 mg Metformin HCl (Metformin Hcl Er 500 Mg Tab.Er.24h) 1,000 mg PO BID [facility] Last Admin: 11/07/21 08:30 Dose: 1,000 mg Metoprolol Succinate (Metoprolol Succinate Er 25 Mg Tab.Er.24h) 25 mg PO BEDTIME [facility]; Protocol Last Admin: 11/06/21 20:30 Dose: 25 mg Omeprazole (Omeprazole 20 Mg Capsule.Dr) 20 mg PO DAILY@0630 [facility] Last Admin: 11/07/21 06:04 Dose: 20 mg Pharmacy Consult (Consult Rx Perform Med Rec) 1 each MISCELLANE ONCE PRN PRN Reason: Consult order Quetiapine Fumarate (Quetiapine Fumarate 25 Mg Tablet) 25 mg PO DAILY [facility] Last Admin: 11/07/21 08:30 Dose: 25 mg Quetiapine Fumarate (Quetiapine Fumarate 300 Mg Tablet) 300 mg PO BEDTIME [facility] Last Admin: 11/06/21 20:29 Dose: 300 mg Quetiapine Fumarate (Quetiapine Fumarate 50 Mg Tablet) 50 mg PO Q4H PRN PRN Reason: Anxiety Last Admin: 11/06/21 17:37 Dose: 50 mg Trazodone HCl (Trazodone Hcl 50 Mg Tablet) 50 mg PO BEDTIME PRN PRN Reason: Insomnia Last Admin: 11/06/21 20:31 Dose: 50 mg Allergies Allergies Allergy/AdvReac Type Severity Reaction Status Date / Time No Known Allergies Allergy Verified 05/31/21 11:24 Assessment & Plan Assessment & Plan (1) MDD (major depressive disorder), recurrent episode, moderate: Status: Chronic Code(s): F33.1 - Major depressive disorder, recurrent, moderate (2) Cocaine use disorder: Status: Chronic Code(s): F14.10 - Cocaine abuse, uncomplicated (3) Chronic pain syndrome: Status: Chronic Code(s): G89.4 - Chronic pain syndrome (4) Diabetes: Status: Acute Code(s): E11.9 - Type 2 diabetes mellitus without complications Plan Pt is a 61 yo Male with a history of MDD, chronic back and knee pain, ambulates in a wheelchair and long history of crack cocaine abuse, Recently discharged from on 10/15/21 who now presents for depression with SI in the face of relapsing on crack cocaine almost immediately following discharge, not taking medications and dealing with chronic pain. -will continue home meds -Will lower Lamictal down to 50 mg; he was off it for a few weeks; emergency room restarted him on 75 mg which he has tolerated thus far making it unlikely he will have adverse affects, especially if going down to 50 mg. -social work to help with assisted living 7/8 depressed, upset and ashamed with his relapse; intermittent SI 11/02 remains depressed but mood is improving a little, intermittent SI but less so. Team agrees that patient needs an assisted living situation in order to remain sober in the community. 11/03 depression continues to improve; SI or remains intermittent but seems less intense and less frequent. Continue current regimen 11/04 Patient's mood continues to improve though slowly. SI remains intermittent though passive. Will continue current regimen. Team agrees that patient remains vulnerable to relapse and decompensation and would benefit from substance abuse program. Patient however prefers to go to assisted living 11/05 Patient got anxious and triggered thinking about going to a substance abuse treatment program, having been to 1 in the past where he was taking advantage of by peers; had a brief moment of active SI which resolved. Patient understands the reasoning behind attending treatment prior to being considered for application to assisted living facility and agrees to proceed with application for substance abuse treatment 11/06 mood is improved. No SI. Patient anxious about attending substance abuse program however remains committed to doing so. 11/07 depression abated, remains without SI. Feels calm and good about his decision to return to his apartment instead of going to assisted living. Patient feels ready for discharge Plan: CV Q 15 minute checks Titrate Lamictal Continue home medications I spent minutes with the patient and/or on the patient floor today, greater than?50% of which was spent counseling/coordinating care. Patient educated on: diagnosis, medication risk/benefits, substance abuse and therapeutic strategies Informed Consent: understands Reason for contiued inpatient stay Substantial Risk for: stable for discharge
[2021-11-07] MEDS: Acetaminophen 325 MG TABLET 650 MG PO (18:50)
[2021-11-07 20:10] VITALS: BP 129/68; PULSE 81; TEMP 36.2
[2021-11-07] MEDS: Metoprolol Succinate ER 25 MG TAB.ER.24H PO (20:15)
[2021-11-07] MEDS: lamoTRIgine 25 MG TABLET 50 MG PO (20:16)
[2021-11-07] MEDS: QUEtiapine Fumarate 300 MG TABLET PO (20:16)
[2021-11-07] MEDS: traZODone HCL 50 MG TABLET PO (20:17)
[2021-11-07] MEDS: Docusate Sodium 100 MG CAPSULE 200 MG PO (20:17)
[2021-11-07] MEDS: Atorvastatin Calcium 40 MG TABLET PO (20:17)
[2021-11-08] MEDS: Buprenorphine/Naloxone 4/1 mg FILM 1 FILM SUBLINGUAL ×3 (06:14→14:20)
[2021-11-08] MEDS: Omeprazole 20 MG CAPSULE.DR PO (06:14)
[2021-11-08] MEDS: metFORMIN HCl ER 500 MG TAB.ER.24H 1000 MG PO (08:51)
[2021-11-08] MEDS: lisinopriL 5 MG TABLET PO (08:51)
[2021-11-08] MEDS: Gabapentin 400 MG CAPSULE 800 MG PO ×2 (08:51→14:06)
[2021-11-08] MEDS: Fenofibrate 54 MG TABLET PO (08:51)
[2021-11-08] MEDS: Magnesium Oxide 400 MG TABLET PO (08:51)
[2021-11-08] MEDS: DULoxetine HCl 60 MG CAPSULE.DR PO (08:51)
[2021-11-08] MEDS: glyBURIDE 5 MG TABLET PO (08:51)
[2021-11-08] MEDS: QUEtiapine Fumarate 25 MG TABLET PO (08:51)
[2021-11-08 08:52] VITALS: BP 116/65; PULSE 74; RESP 16; TEMP 36.3; O2SAT 94
--- NOTE | 2021-11-08 09:30 | PM.PSYDC ---
DS: Providers Provider Date of Service: 11/08/21 Date of admission: 10/30/21 13:20 Date of discharge: 11/08/21 Primary care physician: Unknown Physician Attending physician on admission: Chapincito Gonzalez Attending physician on discharge: Chapincito Gonzalez DS: Diagnosis Discharge Diagnosis (1) MDD (major depressive disorder), recurrent episode, moderate: Status: Chronic (2) Cocaine use disorder: Status: Chronic (3) Chronic pain syndrome: Status: Chronic (4) Diabetes: Status: Acute DS: Medications Discharge Medications Home Medications: Home Medications Medication Instructions Recorded Confirmed buprenorphine 4 mg-naloxone 1 mg 1 film sublingual QID 10/29/21 10/29/21 sublingual film (Suboxone) Previous Rx's Medication Instructions Recorded atorvastatin 40 mg tablet 40 mg PO BEDTIME 30 days #30 tabs 11/08/21 docusate sodium 100 mg capsule 200 mg PO BEDTIME 30 days #60 caps 11/08/21 duloxetine 60 mg capsule,delayed 60 mg PO QAM 30 days #30 caps 11/08/21 release fenofibrate 54 mg tablet 54 mg PO QAM 30 days #30 tabs 11/08/21 gabapentin 800 mg tablet 800 mg PO TID 30 days #90 tabs 11/08/21 glyburide 5 mg tablet 5 mg PO DAILY 30 days #30 tabs 11/08/21 lamotrigine 25 mg tablet 50 mg PO BEDTIME 30 days #60 tabs 11/08/21 lisinopril 5 mg tablet 5 mg PO DAILY 30 days #30 tabs 11/08/21 magnesium oxide 400 mg (241.3 mg 400 mg PO QAM 30 days #30 tabs 11/08/21 magnesium) tablet metformin 1,000 mg tablet,extended 1,000 mg PO BID 30 days #60 tabs 11/08/21 release 24hr metoprolol succinate 25 mg 25 mg PO BEDTIME 30 days #30 tabs 11/08/21 tablet,extended release 24 hr pantoprazole 40 mg tablet,delayed 40 mg PO QAM 30 days #30 tabs 11/08/21 release quetiapine 25 mg tablet 25 mg PO DAILY 30 days #30 tabs 11/08/21 quetiapine 300 mg tablet 300 mg PO BEDTIME 30 days #30 tabs 11/08/21 quetiapine 50 mg tablet 50 mg PO DAILY PRN Anxiety 30 days 11/08/21 #30 tabs trazodone 50 mg tablet 50 mg PO BEDTIME PRN Insomnia 30 11/08/21 days #30 tabs Mental Status Exam Mental Status Exam Narrative: Pt is alert; oriented; behavior is cooperative, calm; bald head, scruffy perez and marginal hygiene; mood is described as good and affect congruent, brighter; eye contact appropriate; Speech is hard to understand due to speech impediment or mumbling which is baseline; otherwise, normal rate, volume and prosody and not pressured; no psychomotor agitation/retardation present; thought process goal directed; Thought content is on treatment, changing living situation; denies SI or HI; no AVH and There is no evidence of perceptual disturbance. Patients insight and judgment are fair and adequate Data Data Completed and Pending Completed studies during hospitalization [Text1]: 11/03/21 11/04/21 11/05/21 20:32 08:54 19:56 Sodium 132 L Potassium 4.2 Chloride 100 Carbon Dioxide 26 Anion Gap 10 L BUN 11 Creatinine 0.72 Estim Creat Clear Calc 107.0 Estimated GFR > 60 POC Glucose 147 H 158 H Random Glucose 145 H Calcium 8.8 11/06/21 11/06/21 12:00 22:03 Sodium Potassium Chloride Carbon Dioxide Anion Gap BUN Creatinine Estim Creat Clear Calc Estimated GFR POC Glucose 124 H 200 H Random Glucose Calcium DS: Summary Hospital Course Hospital Course: HPI: Pt is a 61 yo Male with a history of MDD, chronic back and knee pain, ambulates in a wheelchair and long history of crack cocaine abuse, Recently discharged from on 10/15/21 who now presents for depression with SI in the face of relapsing on crack cocaine almost immediately following discharge, not taking medications and dealing with chronic pain.? Hospital course: On admission, patient's mood started to improve and depression abated; initially he had some intermittent passive SI which eventually fully resolved. He reported relapsing right away and said without a doubt he wants assisted living. The patient's home meds were continued. Patient's mood continued to improve and he was out in the milieu socializing with others. He was talkative and forthcoming during 1 on 1 sessions. Patient's mood was eventually restored and his affect was noticeably brighter. He had a brief moment of panic and active SI when he learned he would need to go to a substance treatment program prior to being considered for assisted living, however this quickly resolved and did not return. Patient deliberated on what to do, not wanting to go to a treatment program. He became more forthcoming and agreed that he is ambivalent about becoming sober and is mostly concerned with losing housing. Patient decided that instead of assisted living, he would find a way to have his rent money taking out of his monthly disability check before he can get his hands on and spend on cocaine; that way he would protect himself from eviction and could remain in his current apartment. With this plan, patient's affect brightened even more and he felt this was the best decision for him. 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 Patient felt ready for discharge home. Patient's issues are chronic and he has a long history of substance abuse, intermittent mood dysregulation and poor follow-up and he remains vulnerable to both relapse and again becoming dysphoric; however as mentioned, these issues are chronic and will not resolve with longer stay on inpatient unit.? Patient is not in imminent risk for harm to self or others and has community support with providers already established.? Patient is? appropriate for discharge and request for discharge honored. Time spent discussing smoking cessation with patient: 3 to 10 minutes Status at Discharge Functional status at discharge: wheelchair bound Overall status at discharge: patient is back to baseline Time Spent with Patient Time attestation: Total time spent providing and/or coordinating discharge services: Time spent: Less than 30 minutes Discharge Plan Discharge Patient Disposition: Home, Self-Care Discharge Diagnosis: MDD, recurrent, moderate in full remission Referrals: Primary Care Physician: Dr. Babcock [Other] - 11/08/21 3:00 pm (This appointment is in-person) Psychiatric Medication Management: Tyson Em APRN [Other] - 11/15/21 11:30 am (This is a Telehealth appointment) The Department of Mental Health: oRnen Panda [Other] - 1 Week (Please contact Ronen at the above number to explore [facility] services further) Discharge Medications: New quetiapine 50 mg Tablet 50 mg PO DAILY PRN (Reason: Anxiety) 30 Days Qty: 30 0RF Continued buprenorphine-naloxone [Suboxone] 4-1 mg film 1 film sublingual QID quetiapine 25 mg Tablet 25 mg PO DAILY 30 Days Qty: 30 0RF trazodone 50 mg Tablet 50 mg PO BEDTIME PRN (Reason: Insomnia) 30 Days Qty: 30 0RF glyburide 5 mg Tablet 5 mg PO DAILY 30 Days Qty: 30 0RF magnesium oxide 400 mg (241.3 mg magnesium) tablet 400 mg PO QAM 30 Days Qty: 30 0RF gabapentin 800 mg tablet 800 mg PO TID 30 Days Qty: 90 0RF docusate sodium 100 mg Capsule 200 mg PO BEDTIME 30 Days Qty: 60 0RF Rx Instructions: hold for loose stool lisinopril 5 mg Tablet 5 mg PO DAILY 30 Days Qty: 30 0RF Protocol: Hold for SBP< HOLD for SBP < : 90 metoprolol succinate 25 mg tablet extended release 24 hr 25 mg PO BEDTIME 30 Days Qty: 30 0RF Protocol: Hold for SBP/HR < HOLD for SBP < : 90 HOLD for HR < : 60 metformin 1,000 mg tablet extended release 24hr 1,000 mg PO BID 30 Days Qty: 60 0RF duloxetine 60 mg capsule,delayed release(DR/EC) 60 mg PO QAM 30 Days Qty: 30 0RF fenofibrate 54 mg tablet 54 mg PO QAM 30 Days Qty: 30 0RF Changed atorvastatin 40 mg tablet 40 mg PO BEDTIME 30 Days Qty: 30 0RF quetiapine 300 mg tablet 300 mg PO BEDTIME 30 Days Qty: 30 0RF lamotrigine 25 mg Tablet 50 mg PO BEDTIME 30 Days Qty: 60 0RF pantoprazole 40 mg tablet,delayed release (DR/EC) 40 mg PO QAM 30 Days Qty: 30 0RF Discontinued (DME) blood-glucose meter Kit See Rx Instructions .Route Qty: 1 0RF Rx Instructions: As directed hydroxyzine HCl 25 mg Tablet 25 mg PO Q6H PRN (Reason: Anxiety) Qty: 0 0RF Discharge Orders: Discharge Order (Routine); Ordered 11/08/21 Ordered By: Chapincito Gonzalez Diet: Diabetic diet Activity on Discharge: As tolerated Stand Alone Forms: Patient Portal Discharge page, Community Support Care Plan Goals: Maintain mood and safe behaviors Take medications as prescribed Continue to pursue sobriety Practice coping skills Continue with outpatient providers and reach out to them as needed Health Concerns: Mood stability and behaviors Sobriety Chronic pain syndrome Bilateral leg dysmobility Hypertension Plan of Treatment: Follow up with your PCP, psychiatric provider and other outpatient providers regarding above concerns Take medications as prescribed Assessment: Risk assessment at time of discharge:? Patient was interviewed prior to discharge and found to be fully oriented and without any SI or HI. Patient has insight and demonstrates good judgment in terms of wanting to pursue treatment. Patient is not in imminent risk of harm to self or others and has a safety plan that includes presenting to the closest ER or calling 911 if feeling unsafe.? Patient has been observed closely by nursing and unit staff throughout admission; patient has not engaged in any behaviors that suggest dangerousness to self or others and has demonstrated appropriate behaviors and impulse control Discharge Date/Time: 11/08/21 15:03
[2021-11-08] MEDS: Naloxone HCl Nasal TAKE HOME 4 MG SPRAY NOSTRILALT (10:23)
== END 2021-11-08 15:03 | disposition home or self-care (01) | DRG 885 ==
LOC: HO.ED 11:31 → HO.PM5 10-30 13:32
PROVIDERS: Clinical Nurse Specialist Psychiatric/Mental Health, Adult; Admitting Provider Psychiatry & Neurology Psychiatry; Emergency Provider Emergency Medicine; Visit Provider Psychiatry & Neurology Psychiatry
DX: F33.1 Major depressive disorder, recurrent, moderate (principal); R45.851 Suicidal ideations; F14.20 Cocaine dependence, uncomplicated; G89.29 Other chronic pain; E11.9 Type 2 diabetes mellitus without complications; Z20.822 Contact with and (suspected) exposure to COVID-19; Z87.891 Personal history of nicotine dependence; Z79.84 Long term (current) use of oral hypoglycemic drugs; Z79.899 Other long term (current) drug therapy
CPT/HCPCS: 36415; 80048; 80061; 80076; 80307; 82077; 82607; 82746; 82947; 83036; 83735; 84439; 84443; 85025; 87635; 93005; 97162; 99285

== ENCOUNTER 2021-11-13 14:08 | Emergency (ER) | payer OTHER, MEDICAID, SELFPAY ==
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
[2021-11-13 14:25] VITALS: BP 148/90; BP 152/97; PULSE 90; RESP 18; TEMP 36.2; O2SAT 93; O2SAT 98; BMI 29.9
[2021-11-13] MEDS: Ibuprofen 400 MG TABLET PO (14:39)
[2021-11-13] MEDS: Acetaminophen 325 MG TABLET 650 MG PO (14:39)
--- NOTE | 2021-11-13 18:12 | MHC.CM.ED ---
Pt ready for d/c at 1600. W/C bound and needs transportation. [facility] called by previous CM and was told they had no transportation and to book ambulance/taxi. Pt is w/c bound and unable to transport into home alone. [facility] booked. Per [facility], they do not have a contract with [facility] and would need auth. [facility] called, they do not have a contract with [facility] and will not transport, as they will not get paid. CM called [facility] and left message, as the office is closed. Called Kamila Neff, Conservation Biology Professor at [employer] and left message. Kamila called back. Reviewed above. Verbal authorization to provide chair van transport for this patient. Per Kamila, she believes that [facility] does belt picker their patients. Chair van booked. Pt transported home. Sofia Claudio aware of above issue. Had same issue with another [facility] member this week with transport after 1630.
== END 2021-11-13 18:01 | disposition home or self-care (01) ==
PROVIDERS: Emergency Provider Student in an Organized Health Care Education/Training Program
DX: S90.32XA Contusion of left foot, initial encounter (principal); Y29.XXXA Contact with blunt object, undetermined intent, initial encounter; Y93.9 Activity, unspecified; Y92.9 Unspecified place or not applicable; Y99.9 Unspecified external cause status; Z79.899 Other long term (current) drug therapy; Z87.891 Personal history of nicotine dependence
CPT/HCPCS: 73630; 99283

== ENCOUNTER 2021-11-25 20:34 | Emergency (ER) | payer OTHER, MEDICAID, SELFPAY ==
--- NOTE | ~2021-11-25 | US_ITS ---
EXAMINATION: US VENOUS ULTRASOUND WITH DOPPLER LOWER EXTREMITY, LEFT CLINICAL INFORMATION: Left lower extremity pain and swelling COMPARISON: None TECHNIQUE: Ultrasound of the deep veins is performed from the hip to the calf with compression sonography and color and pulse Doppler assessment. Spectral analysis with color-flow imaging is performed. FINDINGS: There is normal venous compression and respiratory variation and augmented flow. The visualized common femoral vein, superficial femoral vein, profunda femoral vein, popliteal vein, and the trifurcation region shows no evidence of deep venous thrombosis. There is no significant popliteal fossa cyst. The contralateral right common femoral vein is unremarkable. Incidental note made of normal-appearing left inguinal lymph nodes If the patient's symptoms persist, followup ultrasound in 5 days 7 days might be of value to exclude proximal propagation from a non-visualized calf vein. US/US venous duplex LE LT IMPRESSION: No DVT demonstrated in the left lower extremity.
--- NOTE | ~2021-11-25 | XR_ITS ---
EXAMINATION: XR FOOT, LEFT CLINICAL INFORMATION: Pain and swelling COMPARISON: Left foot 11/13/2021 TECHNIQUE: AP, lateral, and oblique views of the left foot. FINDINGS: Compared to the prior study there's been no interval change. Again seen is a lateral side plate with screw fixation of the distal fibula. Medial malleolar screw unchanged in appearance. Again seen is amputation of the third toe with subluxation of the second toe at the metacarpophalangeal joint. Again seen is a fracture through the proximal phalanx of the first toe with no evidence of interval healing, best appreciated on the lateral radiograph . Again noted is a small plantar calcaneal osteophyte. No bony destruction to suggest osteomyelitis XR/XR foot LT 2V IMPRESSION: Nonhealing fracture through proximal phalanx first toe with other chronic findings described above
[2021-11-25 20:41] VITALS: BP 160/100; PULSE 92; O2SAT 97; BMI 27.8
[2021-11-25 20:42] VITALS: BP 167/79; PULSE 85; RESP 16; O2SAT 95
[2021-11-25 21:10] LABS: COVID-19 Test Negative (Negative)
--- NOTE | 2021-11-25 22:11 | ED.EXTPRO ---
HPI - Extremity Problem General Chief complaint: Extremity Problem Stated complaint: NO FEELING BELOW KNEE Source: patient and EMS Mode of arrival: EMS Limitations: no limitations History of Present Illness HPI Narrative: 61-year-old male presents via EMS for evaluation of left leg pain. Stated that he got leg stuck between his wheelchair and a wall approximately 4 days ago. Was evaluated with a negative workup and sent home. States that he noted some increased swelling and decreased sensation to the left lower extremity. Does not report any recurrent injuries at this time. Denies fevers, chills, palpitations, shortness breath, cough, and chest pain or pressure MD Complaint: extremity pain Onset (ago): day(s) (7) Pain Consistency: constant Location: left and lower extremity Severity scale (1-10): 7 Quality: aching Radiation: none Relieving factors: nothing Exacerbating factors: range of motion and palpation Associated symptoms: denies other symptoms Related Data Home Medications Medication Instructions Recorded Confirmed buprenorphine 4 mg-naloxone 1 mg 1 film sublingual QID 10/29/21 10/29/21 sublingual film (Suboxone) Previous Rx's Medication Instructions Recorded atorvastatin 40 mg tablet 40 mg PO BEDTIME 30 days #30 tabs 11/08/21 docusate sodium 100 mg capsule 200 mg PO BEDTIME 30 days #60 caps 11/08/21 duloxetine 60 mg capsule,delayed 60 mg PO QAM 30 days #30 caps 11/08/21 release fenofibrate 54 mg tablet 54 mg PO QAM 30 days #30 tabs 11/08/21 gabapentin 800 mg tablet 800 mg PO TID 30 days #90 tabs 11/08/21 glyburide 5 mg tablet 5 mg PO DAILY 30 days #30 tabs 11/08/21 lamotrigine 25 mg tablet 50 mg PO BEDTIME 30 days #60 tabs 11/08/21 lisinopril 5 mg tablet 5 mg PO DAILY 30 days #30 tabs 11/08/21 magnesium oxide 400 mg (241.3 mg 400 mg PO QAM 30 days #30 tabs 11/08/21 magnesium) tablet metformin 1,000 mg tablet,extended 1,000 mg PO BID 30 days #60 tabs 11/08/21 release 24hr metoprolol succinate 25 mg 25 mg PO BEDTIME 30 days #30 tabs 11/08/21 tablet,extended release 24 hr pantoprazole 40 mg tablet,delayed 40 mg PO QAM 30 days #30 tabs 11/08/21 release quetiapine 25 mg tablet 25 mg PO DAILY 30 days #30 tabs 11/08/21 quetiapine 300 mg tablet 300 mg PO BEDTIME 30 days #30 tabs 11/08/21 quetiapine 50 mg tablet 50 mg PO DAILY PRN Anxiety 30 days 11/08/21 #30 tabs trazodone 50 mg tablet 50 mg PO BEDTIME PRN Insomnia 30 11/08/21 days #30 tabs Allergies Allergy/AdvReac Type Severity Reaction Status Date / Time No Known Allergies Allergy Verified 05/31/21 11:24 Review of Systems Review of Systems: Constitutional: No Fever, No Chills ENT/Mouth: No Ear Pain, No Hoarseness, No sore throat Eyes: No Eye Pain, No Swelling, No Redness, No Foreign Body Cardiovascular: No Chest Pain, No SOB Respiratory: No Cough, No Dyspnea Gastrointestinal: No Nausea, No Vomiting, No Diarrhea, No abdominal Pain Genitourinary: No Dysuria, No Hematuria Musculoskeletal: positive left lower extremity pain, No Myalgias, No Joint Swelling Skin: No Skin lacerations, No rash Neuro: No Weakness, No Numbness, No Paresthesias, No Loss of Consciousness, No Dizziness, No Headache Psych: No Anxiety/Panic, No Depression Heme/Lymph: no easy bruising, no Lymphadenopathy Endocrine: No Polyuria, No Polydipsia Yes all other systems are reviewed and are negative [facility] Past Medical History Attestation statement: The following information was validated with the patient. Source: old records reviewed Medical History Acute blood loss anemia Cerebral infarction Cocaine use disorder, moderate, dependence Diabetes HTN (hypertension) MDD (major depressive disorder), recurrent episode, moderate Multifactorial gait disorder Opioid use disorder, mild, in sustained remission Social History Social History Household Members: None Housing: House Housing Other:: I live in a farmhouse in [place] . Do you presently have visiting nurse or other home services: Yes Unable to assess alcohol history related to: Unknown Alcohol intake: never Patient Tobacco Use Status: Current everyday Tobacco user Tobacco use type: Cigarette Cigarette Packs Per Day: 2 Cigarettes Per Day: 40.0 Years Smoked: 12 Smoked in Last 30 Days: Yes e-Cigarette/Vaping Use: Never Used Second Hand Smoke Exposure: No Use of substances other than those prescribed or required for medical reasons: Yes Substance Use Type: Crack/Cocaine Advance Directives: No Advance Directives Information Provided: No service: Yes Current occupational status: disabled Sexual orientation: Bisexual Physical Exam Vital Signs: Vital Signs: Last Vital Signs Pulse 85 11/25/21 20:42 Resp 16 11/25/21 20:42 BP 167/79 H 11/25/21 20:42 Pulse Ox 95 11/25/21 20:42 O2 Del Method 11/25/21 20:42 BMI result Body Mass Index 27.8 Appearance: Alert. Oriented X3. No acute distress. Eyes: Pupils equal, round and reactive to light. ENT: Pharynx normal. Neck: Normal inspection. Neck supple. CVS: Normal heart rate and rhythm. Pulses normal. Respiratory: No respiratory distress. Breath sounds normal. Abdomen: Soft and nontender. Skin: Skin warm and dry. Normal skin color. Normal skin turgor. Extremities: Deformed toes per baseline, 2nd toe amp to the right side, brisk capillary refill in equal pedal pulses. No pitting edema. No bruising or erythema noted. Moves all extremities against resistance. Patient is nonweightbearing and wheelchair-bound. Neuro: No motor deficit. No sensory deficit. Cranial nerves 2-12 intact. Course Course Course Narrative: 61-year-old male presents via EMS for left foot pain. Stated that he got his foot stuck between his wheelchair and a wall approximately 4 days ago. Review of records indicates that he was evaluated on 11/13/2021 for similar circumstances. Noted to have mildly displaced fracture cross the base of the 1st proximal phalanx, and subluxation or dislocation to the 2nd toe of the metatarsal pharyngeal joint. I do not appreciate any erythema or significant swelling to the left lower extremity. Will order x-rays and duplex. Patient is asking for pain medication, I offered Motrin which he accepted. 00:46 no significant changes on the x-ray, no indication of osteo, no DVT. Plan of care to discharge home and have patient follow-up with primary care physician. MDM - Extremity (Nontraumatic) MDM Narrative Medical decision making narrative: Fracture, dislocation, subluxation, effusion Differential Diagnosis Differential diagnosis: Likely cellulitis and deep vein thrombosis of lower extremity Medical Records Attestation: I reviewed the patient's medical records. Lab Data Labs: Lab Results 11/25/21 Range/Units 20:51 COVID-19 ([facility]) Negative (Negative) COVID-19 Clin Com See Note Imaging Data Left foot x-ray: Attestation: I personally reviewed and interpreted this imaging study as follows: Radiologist's impression: EXAMINATION: XR FOOT, LEFT CLINICAL INFORMATION: Pain and swelling? COMPARISON: Left foot 11/13/2021? TECHNIQUE: AP, lateral, and oblique views of the left foot. FINDINGS: Compared to the prior study there's been no interval change. Again seen is a lateral side plate with screw fixation of the distal fibula. Medial malleolar screw unchanged in appearance. Again seen is amputation of the third toe with subluxation of the second toe at the metacarpophalangeal joint. Again seen is a fracture through the proximal phalanx of the first toe with no evidence of interval healing, best appreciated on the lateral radiograph . Again noted is a small plantar calcaneal osteophyte. No bony destruction to suggest osteomyelitis XR/XR foot LT 2V IMPRESSION: Nonhealing fracture through proximal phalanx first toe with other chronic findings described above Venous duplex left lower extremity: Attestation: I personally reviewed and interpreted this imaging study as follows: Radiologist's impression: EXAMINATION:? US VENOUS ULTRASOUND WITH DOPPLER LOWER EXTREMITY, LEFT CLINICAL INFORMATION:? Left lower extremity pain and swelling COMPARISON:? None TECHNIQUE: Ultrasound of the deep veins is performed from the hip to the calf with compression sonography and color and pulse Doppler assessment. Spectral analysis with color-flow imaging is performed. FINDINGS: There is normal venous compression and respiratory variation and augmented flow. The visualized common femoral vein, superficial femoral vein, profunda femoral vein, popliteal vein, and the trifurcation region shows no evidence of deep venous thrombosis. ? There is no significant popliteal fossa cyst. The contralateral right common femoral vein is unremarkable. Incidental note made of normal-appearing left inguinal lymph nodes If the patient's symptoms persist, followup ultrasound in 5 days 7 days might be of value to exclude proximal propagation from a non-visualized calf vein. US/US venous duplex LE LT IMPRESSION: No DVT demonstrated in the left lower extremity. Discharge Plan Discharge Clinical Impression: Foot fracture, left Qualifiers: Encounter type: subsequent encounter Fracture type: closed Fracture healing: with delayed healing Qualified Code(s): S92.902G - Unspecified fracture of left foot, subsequent encounter for fracture with delayed healing Patient Disposition: Home, Self-Care Instructions: Foot Fracture in Adults (ED), R.I.C.E. Treatment (ED) Additional Instructions: You were evaluated for left foot pain. X-rays do not show any changes to the fractures. There is no indication of osteomyelitis or edema. DVT study is negative for blood clot. Please follow-up with primary care physician. Use Tylenol 650 mg every 6 hours as needed and Motrin 600 mg every 6 hours as needed for pain management. Write down what time he take these medications to prevent accidental overdose. Rest ice and elevate the foot to help reduce pain and swelling. Thank you for choosing this emergency department for evaluation. Please follow-up with primary care physician as needed. Return to the emergency department for any new, concerning, or worsening symptoms. Prescriptions: No Action buprenorphine-naloxone [Suboxone] 4-1 mg film 1 film sublingual QID quetiapine 50 mg Tablet 50 mg PO DAILY PRN (Reason: Anxiety) 30 Days Qty: 30 0RF quetiapine 25 mg Tablet 25 mg PO DAILY 30 Days Qty: 30 0RF atorvastatin 40 mg tablet 40 mg PO BEDTIME 30 Days Qty: 30 0RF quetiapine 300 mg tablet 300 mg PO BEDTIME 30 Days Qty: 30 0RF trazodone 50 mg Tablet 50 mg PO BEDTIME PRN (Reason: Insomnia) 30 Days Qty: 30 0RF glyburide 5 mg Tablet 5 mg PO DAILY 30 Days Qty: 30 0RF lamotrigine 25 mg Tablet 50 mg PO BEDTIME 30 Days Qty: 60 0RF magnesium oxide 400 mg (241.3 mg magnesium) tablet 400 mg PO QAM 30 Days Qty: 30 0RF gabapentin 800 mg tablet 800 mg PO TID 30 Days Qty: 90 0RF pantoprazole 40 mg tablet,delayed release (DR/EC) 40 mg PO QAM 30 Days Qty: 30 0RF docusate sodium 100 mg Capsule 200 mg PO BEDTIME 30 Days Qty: 60 0RF Rx Instructions: hold for loose stool lisinopril 5 mg Tablet 5 mg PO DAILY 30 Days Qty: 30 0RF Protocol: Hold for SBP< HOLD for SBP < : 90 metoprolol succinate 25 mg tablet extended release 24 hr 25 mg PO BEDTIME 30 Days Qty: 30 0RF Protocol: Hold for SBP/HR < HOLD for SBP < : 90 HOLD for HR < : 60 metformin 1,000 mg tablet extended release 24hr 1,000 mg PO BID 30 Days Qty: 60 0RF duloxetine 60 mg capsule,delayed release(DR/EC) 60 mg PO QAM 30 Days Qty: 30 0RF fenofibrate 54 mg tablet 54 mg PO QAM 30 Days Qty: 30 0RF
[2021-11-25] MEDS: Ibuprofen 600 MG TABLET PO (22:28)
--- NOTE | 2021-11-26 01:03 | PC.NURSE ---
Pt cleared for discharge. Due to being wheelchair-bound, pt requires ambulance transport home. Awaiting ambulance transport at this time.
== END 2021-11-26 01:38 | disposition home or self-care (01) ==
PROVIDERS: Emergency Provider Internal Medicine
DX: S92.902A Unspecified fracture of left foot, initial encounter for closed fracture (principal); S80.12XA Contusion of left lower leg, initial encounter; R60.0 Localized edema; M79.605 Pain in left leg; Y29.XXXA Contact with blunt object, undetermined intent, initial encounter; Y93.9 Activity, unspecified; Y92.9 Unspecified place or not applicable; Y99.9 Unspecified external cause status; Z20.822 Contact with and (suspected) exposure to COVID-19; Z79.899 Other long term (current) drug therapy
CPT/HCPCS: 73620; 87635; 93971; 99284

== ENCOUNTER 2021-11-26 08:54 | Emergency (ER) | payer OTHER, MEDICAID, SELFPAY ==
[2021-11-26 09:00] VITALS: BP 160/82; BP 170/80; PULSE 78; RESP 18; TEMP 36.9; O2SAT 95; O2SAT 97; BMI 24.7
[2021-11-26 10:12] LABS: MANUAL DIFF FLAG NO
[2021-11-26 10:16] LABS: Basophils Percent Auto 0.6 % (0-2); Eosinophils Absolute Auto 0.1 X10*3/uL (0.0-0.4); Eosinophils Percent Auto 1.6 % (0-4); Hematocrit 37.1 % (42.0-52.0); Imm Gran Abs Auto 0.01 X10*3/uL (0.00-0.03); Imm Gran Pct Auto 0.2 % (0.0-0.4); Lymphocytes Absolute Auto 0.8 X10*3/uL (1.2-4.9); Lymphocytes Percent Auto 16.8 % (20-40); Mean Corpuscular HGB Conc 32.3 g/dl (31.0-36.0); Mean Corpuscular Hemoglobin 26.4 pg (27.0-33.0); Mean Corpuscular Volume 81.7 fL (80.0-98.0); Mean Platelet Volume 9.4 fL (9.4-12.4); Monocytes Absolute Auto 0.5 X10*3/uL (0.1-1.2); Monocytes Percent Auto 9.3 % (2-11); Neutrophils Absolute Auto 3.5 x10*3/uL (2.0-8.3); Neutrophils Percent Auto 71.5 % (45-73); Platelet Count 232 X10*3/uL (160-400); Red Blood Count 4.54 X10*6/uL (4.60-5.80); Red Cell Distribution Width 15.5 % (11.0-16.0); White Blood Count 4.9 X10*3/uL (4.8-10.8)
[2021-11-26 10:22] VITALS: BP 133/73; PULSE 77; RESP 18; TEMP 36.4; O2SAT 96
[2021-11-26 10:28] LABS: COVID-19 Test Negative (Negative); Ethanol < 10 mg/dL; IDNOW Serial# 16C4AD1C
[2021-11-26 10:31] LABS: Alanine Aminotransferase 46 U/L (0-40); Albumin Level 4.4 g/dL (3.5-5.0); Alkaline Phosphatase 67 U/L (39-117); Anion Gap 14 (12-20); Aspartate Amino Transferase 88 U/L (5-37); Bilirubin Total 0.5 mg/dL (0.0-1.0); Blood Urea Nitrogen 12 mg/dL (9-16); Calcium 8.8 mg/dL (8.4-10.2); Carbon Dioxide 21 mmol/L (22-29); Chloride 105 mmol/L (96-108); Creatinine Clr Calc Pharmacy 100.6; Estimated Glomerular Filt Rate > 60; Glucose Random 148 mg/dL (60-115); Lipase 26 U/L (8-78); Potassium 4.2 mmol/L (3.3-5.1); Sodium 136 mmol/L (135-145); Total Protein 7.2 g/dL (6.5-8.0)
[2021-11-26 10:33] LABS: Magnesium 1.9 mg/dL (1.6-2.6)
--- NOTE | 2021-11-26 11:56 | ED.ALCOHOL ---
HPI - Alcohol General Chief Complaint: ETOH/Substance Use Stated Complaint: SI Time Seen by Provider: 11/26/21 09:18 Source: patient Mode of arrival: ambulatory Limitations: no limitations History of Present Illness HPI narrative: 60 y/o male with history of CVA, DM2, neuropathy, HTN, HLD, anemia, multifactorial gait disorder, depression, substance abuse with cocaine presenting to the ED requesting for detox reports that he has is at least 700 dollars of crack cocaine the last time he used was yesterday. He also reports that he uses alcohol occasionally not daily. He reports that this is making him so depressed. Although denies any SI at this time. Denies a plan for SI. He denies any HI/auditory visualizations. He denies any other drug usage. He denies any recent falls. He denies any headaches, change in vision, dizziness, fevers, chills, myalgias, fatigue, chest pain, shortness of breath, jaw pain, paresthesias, dyspnea on exertion, orthopnea, palpitations, nausea/vomiting/diarrhea constipation, black or bloody stools, abdominal pain, flank pain, back pain, dysuria, hematuria, rashes, recent travel or sick contacts or any other symptoms complaints or concerns at this time. complaint: desires rehab Last drink: Days (ago) Chronic alcohol use: Yes Previous visits for alcohol intoxication: Yes Recent trauma: No (Not on this visit although patient was seen here on 11/25/2021 after a fall) Associated symptoms: denies other symptoms Treatments prior to arrival: none Related Data Home Medications Medication Instructions Recorded Confirmed buprenorphine 4 mg-naloxone 1 mg 1 film sublingual QID 10/29/21 10/29/21 sublingual film (Suboxone) Previous Rx's Medication Instructions Recorded atorvastatin 40 mg tablet 40 mg PO BEDTIME 30 days #30 tabs 11/08/21 docusate sodium 100 mg capsule 200 mg PO BEDTIME 30 days #60 caps 11/08/21 duloxetine 60 mg capsule,delayed 60 mg PO QAM 30 days #30 caps 11/08/21 release fenofibrate 54 mg tablet 54 mg PO QAM 30 days #30 tabs 11/08/21 gabapentin 800 mg tablet 800 mg PO TID 30 days #90 tabs 11/08/21 glyburide 5 mg tablet 5 mg PO DAILY 30 days #30 tabs 11/08/21 lamotrigine 25 mg tablet 50 mg PO BEDTIME 30 days #60 tabs 11/08/21 lisinopril 5 mg tablet 5 mg PO DAILY 30 days #30 tabs 11/08/21 magnesium oxide 400 mg (241.3 mg 400 mg PO QAM 30 days #30 tabs 11/08/21 magnesium) tablet metformin 1,000 mg tablet,extended 1,000 mg PO BID 30 days #60 tabs 11/08/21 release 24hr metoprolol succinate 25 mg 25 mg PO BEDTIME 30 days #30 tabs 11/08/21 tablet,extended release 24 hr pantoprazole 40 mg tablet,delayed 40 mg PO QAM 30 days #30 tabs 11/08/21 release quetiapine 25 mg tablet 25 mg PO DAILY 30 days #30 tabs 11/08/21 quetiapine 300 mg tablet 300 mg PO BEDTIME 30 days #30 tabs 11/08/21 quetiapine 50 mg tablet 50 mg PO DAILY PRN Anxiety 30 days 11/08/21 #30 tabs trazodone 50 mg tablet 50 mg PO BEDTIME PRN Insomnia 30 11/08/21 days #30 tabs Allergies Allergy/AdvReac Type Severity Reaction Status Date / Time No Known Allergies Allergy Verified 05/31/21 11:24 Review of Systems Review of Systems: Constitutional : No Fever, No Chills ENT/Mouth : No Ear Pain, No Nasal Congestion, No sore throat Eyes: No Eye Pain, No Swelling, No Redness Cardiovascular : No Chest Pain, No SOB Respiratory : No Cough, No Sputum, No Dyspnea Gastrointestinal : No ingestions, No Nausea, No Vomiting, No Diarrhea, No Hematochezia, No Melena Genitourinary : No Dysuria, No Urinary Frequency, No Hematuria Musculoskeletal : No Myalgias Skin : No Skin Lesions, No rash Neuro : No Weakness, No Numbness, No Paresthesias, No Dizziness, No Headache Psych : + Anxiety, + Depression, No SI, No thoughts of self injury, No HI, No AVH, Heme/Lymph: No Lymphadenopathy Endocrine : No Polyuria, No Polydipsia Yes all other systems are reviewed and are negative PMFSH Past Medical History Attestation statement: The following information was validated with the patient. Source: old records reviewed and nursing notes reviewed Medical History (Updated 11/26/21 @ 12:02 by LAYNE Rossi) Acute blood loss anemia Cerebral infarction Cocaine use disorder, moderate, dependence Diabetes HTN (hypertension) MDD (major depressive disorder), recurrent episode, moderate Multifactorial gait disorder Opioid use disorder, mild, in sustained remission Social History Social History Household Members: None Housing: House Housing Other:: I live in a farmhouse in [place] . Do you presently have visiting nurse or other home services: Yes Unable to assess alcohol history related to: Unknown Alcohol intake: never Patient Tobacco Use Status: Current everyday Tobacco user Tobacco use type: Cigarette Cigarette Packs Per Day: 2 Cigarettes Per Day: 40.0 Years Smoked: 12 e-Cigarette/Vaping Use: Never Used Second Hand Smoke Exposure: No Substance Use Type: Crack/Cocaine Advance Directives: No Advance Directives Information Provided: No service: Yes Current occupational status: disabled Sexual orientation: Bisexual Physical Exam ED Vital Signs: Vital Signs - 24 hr 11/26/21 09:00 11/26/21 10:22 11/26/21 14:21 Temperature 98.4 F 97.5 F 97.9 F Pulse Rate 78 77 82 Respiratory Rate 18 18 18 Blood Pressure 160/82 H 133/73 166/99 H Pulse Oximetry 97 96 99 Oxygen Delivery Method Room Air Room Air Room Air BMI result Body Mass Index 24.7 Vital signs reviewed and patient's blood pressure 160/82. Pulse 78. Respiration 18. Temperature 98.4 degrees. Oxygen 97% on room air. Appearance: Alert. Oriented X3. No acute distress. Head: Normal external exam. Normocephalic. Atraumatic. No [place] signs noted. No raccoon eyes noted Eyes: PERRLA. EOMI. Conjunctiva and sclera normal. Eyelids normal. ENT: EAC normal. TM's Normal. Pharynx normal. Uvula midline. Moist mucous membranes. No trismus noted. No drooling noted. No muffled voice noted. Neck: Normal inspection. Neck supple. FROM. No adenopathy. Thyroid Normal. No meningeal signs. No neck mass noted. CVS: Normal heart rate and rhythm. Heart sound normal. No murmurs noted. Pulses normal throughout. Respiratory: No respiratory distress. Painless inspiration. Breath sounds normal. No wheezes/rales/rhonchi noted. Chest nontender. No accessory muscle usage noted or decreased air movement noted. Abdomen: Soft and nontender. Bowel sounds normal in all 4 quadrants. No distention noted. No organomegaly noted. No visible injury noted. Back: No CVA tenderness. Full range of motion noted. Skin: Skin warm and dry. Normal skin color. Normal skin turgor. No rashes/lesions/lacerations noted. Extremities: No lower extremity edema. Extremities exhibit normal range of motion. Extremities nontender. Neuro: Oriented X 3. No motor deficit. No sensory deficit. Reflexes normal. CN's II-XII intact bilaterally? Psych: Appearance grossly normal, well-kept, mental status normal, speech slurred and movement normal, patient appears very sad and anxious along with depressed. Is cooperative. Normal thought process. Normal thought content. Normal good insight. Judgment good. Course Course Course Narrative: 9:30am - 60 y/o male with history of CVA, DM2, neuropathy, HTN, HLD, anemia, multifactorial gait disorder, depression, substance abuse with cocaine presenting to the ED requesting for detox reports that he has is at least 700 dollars of crack cocaine the last time he used was yesterday. He also reports that he uses alcohol occasionally not daily. He reports that this is making him so depressed. Although denies any SI at this time. Denies a plan for SI. He denies any HI/auditory visualizations. He denies any other drug usage. He denies any recent falls. Plan: Will obtain labs, drugs of abuse screen, ethanol level. Safety checks placed. And re-evaluate. Reevaluation(s) Reevaluation #1: - labs reviewed patient mild anemia which is similar compared to prior. Carbon dioxide 21. Random glucose 148. AST/ALT 88/46 similar compared to prior. ETOH level negative. Patient negative for COVID. - waiting for drugs of abuse screen. - otherwise patient is placed in Physician observation because the patient needs more time to be evaluated by care team for possible detox will continue to monitor. Time: 12:20 Reevaluation #2: - Pt was evaluate by Valorie lainez from the care team and at this time he continues to deny any SI/HI/auditory visualizations or thoughts of self injury. He wanted to go to detox although he is not appropriate for detox as he told them he last used a month ago and last use a week ago. Therefore we all that being said at this time he does not meet detox criteria. He also does not me case management criteria. Therefore at this time case management will assist with finding transportation otherwise will DC home with instructions return if any new or worsening symptoms to continue taking previously prescribed medications as previously prescribed. Patient understands agrees with this plan. Time: 15:18 MDM - Alcohol Medical Records Attestation: I reviewed the patient's medical records. Lab Data Attestation: I reviewed the patient's lab results. Result diagrams: 11/26/21 10:08 11/26/21 10:08 Labs: Lab Results 11/26/21 11/26/21 11/26/21 Range/Units 10:08 10:08 10:08 WBC 4.9 (4.8-10.8) X10*3/uL RBC 4.54 L (4.60-5.80) X10*6/uL Hgb 12.0 L (14.0-18.0) g/dl Hct 37.1 L (42.0-52.0) % MCV 81.7 (80.0-98.0) fL MCH 26.4 L (27.0-33.0) pg MCHC 32.3 (31.0-36.0) g/dl RDW 15.5 (11.0-16.0) % Plt Count 232 (160-400) X10*3/uL MPV 9.4 (9.4-12.4) fL Immature Gran % (Auto) 0.2 (0.0-0.4) % Neut % (Auto) 71.5 (45-73) % Lymph % (Auto) 16.8 L (20-40) % [place] % (Auto) 9.3 (2-11) % Eos % (Auto) 1.6 (0-4) % Baso % (Auto) 0.6 (0-2) % Lymph # (Auto) 0.8 L (1.2-4.9) X10*3/uL [place] # (Auto) 0.5 (0.1-1.2) X10*3/uL Eos # (Auto) 0.1 (0.0-0.4) X10*3/uL Baso # (Auto) 0.0 (0.0-0.2) X10*3/uL Abs Immat Gran (auto) 0.01 (0.00-0.03) X10*3/uL Absolute Neuts (auto) 3.5 (2.0-8.3) x10*3/uL Absolute Nucleated RBC 0.000 (0.0-0.012) X10*3/uL Nucleated RBC % (auto) 0.0 (0.0-0.2) /100WBC Sodium 136 (135-145) mmol/L Potassium 4.2 (3.3-5.1) mmol/L Chloride 105 (96-108) mmol/L Carbon Dioxide 21 L (22-29) mmol/L Anion Gap 14 (12-20) BUN 12 (9-16) mg/dL Creatinine 0.79 (0.5-1.4) mg/dL Estim Creat Clear Calc 100.6 Estimated GFR > 60 Random Glucose 148 H (60-115) mg/dL Calcium 8.8 (8.4-10.2) mg/dL Magnesium 1.9 (1.6-2.6) mg/dL Total Bilirubin 0.5 (0.0-1.0) mg/dL AST 88 H (5-37) U/L ALT 46 H (0-40) U/L Alkaline Phosphatase 67 (39-117) U/L Total Protein 7.2 (6.5-8.0) g/dL Albumin 4.4 (3.5-5.0) g/dL Lipase 26 (8-78) U/L Urine Opiates Screen (Not Detect) Urine Fentanyl Screen (Not Detect) Ur Barbiturates Screen (Not Detect) Ur Phencyclidine Scrn (Not Detect) Ur Amphetamines Screen (Not Detect) U Benzodiazepines Scrn (Not Detect) Urine Cocaine Screen (Not Detect) U Marijuana (THC) Screen (Not Detect) Ethyl Alcohol < 10 mg/dL COVID-19 ([facility]) (Negative) COVID-19 Clin Com 11/26/21 11/26/21 Range/Units 10:08 14:03 WBC (4.8-10.8) X10*3/uL RBC (4.60-5.80) X10*6/uL Hgb (14.0-18.0) g/dl Hct (42.0-52.0) % MCV (80.0-98.0) fL MCH (27.0-33.0) pg MCHC (31.0-36.0) g/dl RDW (11.0-16.0) % Plt Count (160-400) X10*3/uL MPV (9.4-12.4) fL Immature Gran % (Auto) (0.0-0.4) % Neut % (Auto) (45-73) % Lymph % (Auto) (20-40) % [place] % (Auto) (2-11) % Eos % (Auto) (0-4) % Baso % (Auto) (0-2) % Lymph # (Auto) (1.2-4.9) X10*3/uL [place] # (Auto) (0.1-1.2) X10*3/uL Eos # (Auto) (0.0-0.4) X10*3/uL Baso # (Auto) (0.0-0.2) X10*3/uL Abs Immat Gran (auto) (0.00-0.03) X10*3/uL Absolute Neuts (auto) (2.0-8.3) x10*3/uL Absolute Nucleated RBC (0.0-0.012) X10*3/uL Nucleated RBC % (auto) (0.0-0.2) /100WBC Sodium (135-145) mmol/L Potassium (3.3-5.1) mmol/L Chloride (96-108) mmol/L Carbon Dioxide (22-29) mmol/L Anion Gap (12-20) BUN (9-16) mg/dL Creatinine (0.5-1.4) mg/dL Estim Creat Clear Calc Estimated GFR Random Glucose (60-115) mg/dL Calcium (8.4-10.2) mg/dL Magnesium (1.6-2.6) mg/dL Total Bilirubin (0.0-1.0) mg/dL AST (5-37) U/L ALT (0-40) U/L Alkaline Phosphatase (39-117) U/L Total Protein (6.5-8.0) g/dL Albumin (3.5-5.0) g/dL Lipase (8-78) U/L Urine Opiates Screen Not Detected (Not Detect) Urine Fentanyl Screen Not Detected (Not Detect) Ur Barbiturates Screen Not Detected (Not Detect) Ur Phencyclidine Scrn Not Detected (Not Detect) Ur Amphetamines Screen Not Detected (Not Detect) U Benzodiazepines Scrn Not Detected (Not Detect) Urine Cocaine Screen POSITIVE H (Not Detect) U Marijuana (THC) Screen Not Detected (Not Detect) Ethyl Alcohol mg/dL COVID-19 ([facility]) Negative (Negative) COVID-19 Clin Com See Note Discharge Plan Discharge Clinical Impression: Drug usage Patient Disposition: Home, Self-Care Instructions: Polysubstance Abuse (ED) Prescriptions: No Action buprenorphine-naloxone [Suboxone] 4-1 mg film 1 film sublingual QID quetiapine 50 mg Tablet 50 mg PO DAILY PRN (Reason: Anxiety) 30 Days Qty: 30 0RF quetiapine 25 mg Tablet 25 mg PO DAILY 30 Days Qty: 30 0RF atorvastatin 40 mg tablet 40 mg PO BEDTIME 30 Days Qty: 30 0RF quetiapine 300 mg tablet 300 mg PO BEDTIME 30 Days Qty: 30 0RF trazodone 50 mg Tablet 50 mg PO BEDTIME PRN (Reason: Insomnia) 30 Days Qty: 30 0RF glyburide 5 mg Tablet 5 mg PO DAILY 30 Days Qty: 30 0RF lamotrigine 25 mg Tablet 50 mg PO BEDTIME 30 Days Qty: 60 0RF magnesium oxide 400 mg (241.3 mg magnesium) tablet 400 mg PO QAM 30 Days Qty: 30 0RF gabapentin 800 mg tablet 800 mg PO TID 30 Days Qty: 90 0RF pantoprazole 40 mg tablet,delayed release (DR/EC) 40 mg PO QAM 30 Days Qty: 30 0RF docusate sodium 100 mg Capsule 200 mg PO BEDTIME 30 Days Qty: 60 0RF Rx Instructions: hold for loose stool lisinopril 5 mg Tablet 5 mg PO DAILY 30 Days Qty: 30 0RF Protocol: Hold for SBP< HOLD for SBP < : 90 metoprolol succinate 25 mg tablet extended release 24 hr 25 mg PO BEDTIME 30 Days Qty: 30 0RF Protocol: Hold for SBP/HR < HOLD for SBP < : 90 HOLD for HR < : 60 metformin 1,000 mg tablet extended release 24hr 1,000 mg PO BID 30 Days Qty: 60 0RF duloxetine 60 mg capsule,delayed release(DR/EC) 60 mg PO QAM 30 Days Qty: 30 0RF fenofibrate 54 mg tablet 54 mg PO QAM 30 Days Qty: 30 0RF Referrals: Niles Babcock MD [Primary Care Provider] - 2 days
--- NOTE | 2021-11-26 13:03 | MHC.RECOVRN ---
Addendum entered by Valorie Donohue 11/26/21 13:25: Pt currently completing phone intake with [facility]. Original Note: Met with pt in 18H after consult placed to CARE Team for substance use. Pt reports using crack cocaine, $700 for a couple days a month. Pt has an apartment, however, is interested in long-term DELPHINE tx and is willing to give up apartment in order to enter tx. Pt denies other substances. Pt denies SI/HI/AH/VH. Pt has been to [facility] years ago in [place]. Pt interested in [facility] and continuing to [facility]. Awaiting results of pts UDS, however, [facility] availability. Will send referral now and update [facility] as appropriate.
--- NOTE | 2021-11-26 13:53 | MHC.RECOVRN ---
Pt completed phone screen with [facility]. [facility] staff notified t/w that pt is not appropriate for [facility] level of care due to pt reporting last use was 11/22 and pt uses once per month. [facility] staff inquiring about [facility] availabilty. Awaiting return call.
[2021-11-26 14:21] VITALS: BP 166/99; PULSE 82; RESP 18; TEMP 36.6; O2SAT 99
[2021-11-26 14:24] LABS: Amphetamine Screen Urine Not Detected (Not Detect); Barbiturates, Urine Not Detected (Not Detect); Benzodiazepines Screen Urine Not Detected (Not Detect); Cocaine Screen Urine POSITIVE (Not Detect); Fentanyl, urine Not Detected (Not Detect); Opiate Screen Urine Not Detected (Not Detect); Phencyclidine Screen Urine Not Detected (Not Detect)
[2021-11-26 14:25] LABS: Cannabinoid Screen Urine Not Detected (Not Detect)
--- NOTE | 2021-11-26 15:44 | MHC.RECOVRN ---
No [facility] bed availability. Discussed with pt, pt would like to discharge home and feels safe to do so. Pt educated regarding recovery resources, denies questions at this time. Discussed with ED provider and CM.
== END 2021-11-26 16:03 | disposition home or self-care (01) ==
PROVIDERS: Physician Assistant Medical; Emergency Provider Emergency Medicine Emergency Medical Services; PCP Internal Medicine Rheumatology
DX: F14.10 Cocaine abuse, uncomplicated (principal); F32.A Depression, unspecified; F11.20 Opioid dependence, uncomplicated; Z20.822 Contact with and (suspected) exposure to COVID-19; E11.9 Type 2 diabetes mellitus without complications; I10 Essential (primary) hypertension; E78.5 Hyperlipidemia, unspecified; D64.9 Anemia, unspecified; F17.210 Nicotine dependence, cigarettes, uncomplicated; Z86.73 Personal history of transient ischemic attack (TIA), and cerebral infarction without residual deficits; Z79.84 Long term (current) use of oral hypoglycemic drugs; Z79.899 Other long term (current) drug therapy; Z79.02 Long term (current) use of antithrombotics/antiplatelets
CPT/HCPCS: 36415; 80053; 80307; 82077; 83690; 83735; 85025; 87635; 99283; 99284

== ENCOUNTER 2021-12-31 19:06 | Emergency (ER) | payer OTHER, MEDICAID, SELFPAY ==
[2021-12-31 19:22] VITALS: BP 140/100; BP 155/89; PULSE 104; PULSE 95; RESP 18; TEMP 37.2; O2SAT 95; O2SAT 98; BMI 28.3
--- NOTE | 2021-12-31 19:24 | ED.PSYCH ---
HPI - Psych General Chief Complaint: Psychiatric Symptoms Stated Complaint: SI Time Seen by Provider: 12/31/21 19:11 Source: patient and EMS Mode of arrival: EMS Limitations: no limitations History of Present Illness HPI Narrative: 61-year-old male past medical history significant for hypertension, cocaine use disorder, cerebellar infarction, major depression, polysubstance abuse, diabetes presenting to the emergency department via EMS from a custodial with complaints of suicidal ideation with plan to stab himself in the head. Patient tells me he grabbed a knife and put it up to his head, custodial staff members responded, and called 911, EMS and police arrived, placed him on a Section 12 and brought him in for further evaluation and treatment. Patient tells me that he does not feel safe at the custodial and he does not like the people there, he reports no inciting event other than the people there make him uncomfortable. He tells me that this is happened to him before, and he has required inpatient hospital admission. He reports that he is a current daily smoker, denies drugs or alcohol. Patient denies visual, auditory and tactile hallucinations. Denies any medical complaints at this time. Related Data Home Medications Medication Instructions Recorded Confirmed buprenorphine 4 mg-naloxone 1 mg 1 film sublingual QID 10/29/21 10/29/21 sublingual film (Suboxone) Previous Rx's Medication Instructions Recorded atorvastatin 40 mg tablet 40 mg PO BEDTIME 30 days #30 tabs 11/08/21 docusate sodium 100 mg capsule 200 mg PO BEDTIME 30 days #60 caps 11/08/21 duloxetine 60 mg capsule,delayed 60 mg PO QAM 30 days #30 caps 11/08/21 release fenofibrate 54 mg tablet 54 mg PO QAM 30 days #30 tabs 11/08/21 gabapentin 800 mg tablet 800 mg PO TID 30 days #90 tabs 11/08/21 glyburide 5 mg tablet 5 mg PO DAILY 30 days #30 tabs 11/08/21 lamotrigine 25 mg tablet 50 mg PO BEDTIME 30 days #60 tabs 11/08/21 lisinopril 5 mg tablet 5 mg PO DAILY 30 days #30 tabs 11/08/21 magnesium oxide 400 mg (241.3 mg 400 mg PO QAM 30 days #30 tabs 11/08/21 magnesium) tablet metformin 1,000 mg tablet,extended 1,000 mg PO BID 30 days #60 tabs 11/08/21 release 24hr metoprolol succinate 25 mg 25 mg PO BEDTIME 30 days #30 tabs 11/08/21 tablet,extended release 24 hr pantoprazole 40 mg tablet,delayed 40 mg PO QAM 30 days #30 tabs 11/08/21 release quetiapine 25 mg tablet 25 mg PO DAILY 30 days #30 tabs 11/08/21 quetiapine 300 mg tablet 300 mg PO BEDTIME 30 days #30 tabs 11/08/21 quetiapine 50 mg tablet 50 mg PO DAILY PRN Anxiety 30 days 11/08/21 #30 tabs trazodone 50 mg tablet 50 mg PO BEDTIME PRN Insomnia 30 11/08/21 days #30 tabs Allergies Allergy/AdvReac Type Severity Reaction Status Date / Time No Known Allergies Allergy Verified 05/31/21 11:24 Review of Systems Review of Systems: Constitutional : No Weight loss, No Fever, No Chills, No Fatigue, No Malaise ENT/Mouth : No sore throat, No Rhinorrhea Eyes: No Eye Pain, No Swelling, No Redness Cardiovascular : No Chest Pain, No SOB, No Dyspnea on Exertion, No Orthopnea, No Edema, No Palpitations Respiratory : No Cough, No Sputum, No Wheezing Gastrointestinal : No Nausea, No Vomiting, No Diarrhea, No Constipation, No abdominal Pain, No Hematochezia, No Melena Genitourinary : No Dysuria, No Urinary Frequency, No Hematuria, Musculoskeletal : No joint pain, No Myalgias, No Joint Swelling Skin : No Skin Lesions, No rash Neuro : No Weakness, No Numbness, No Dizziness, No Headache Psych : + Anxiety/Panic, + Depression, + SI, No HI All other systems reviewed and are negative Yes all other systems are reviewed and are negative [facility] Past Medical History Attestation statement: The following information was validated with the patient. Source: old records reviewed and nursing notes reviewed Medical History Acute blood loss anemia Cerebral infarction Cocaine use disorder, moderate, dependence Diabetes HTN (hypertension) MDD (major depressive disorder), recurrent episode, moderate Multifactorial gait disorder Opioid use disorder, mild, in sustained remission Social History Social History Household Members: None Housing: House Housing Other:: I live in a farmhouse in [place] . Do you presently have visiting nurse or other home services: Yes Unable to assess alcohol history related to: Unknown Alcohol intake: never Patient Tobacco Use Status: Current everyday Tobacco user Tobacco use type: Cigarette Cigarette Packs Per Day: 2 Cigarettes Per Day: 40.0 Years Smoked: 12 e-Cigarette/Vaping Use: Never Used Second Hand Smoke Exposure: No Use of substances other than those prescribed or required for medical reasons: No Substance Use Type: Crack/Cocaine Advance Directives: No Advance Directives Information Provided: No service: Yes Current occupational status: disabled Sexual orientation: Bisexual Physical Exam Vital Signs: Vital Signs: Last Vital Signs Temp 97.7 F 12/31/21 20:00 Pulse 89 12/31/21 20:00 Resp 16 12/31/21 20:00 BP 141/84 H 12/31/21 20:00 Pulse Ox 96 12/31/21 20:00 O2 Del Method 12/31/21 20:00 BMI result Body Mass Index 28.3 vss Appearance: Alert.? Oriented X3.? No acute distress.? Head: Normocephalic, atraumatic, no step-offs or deformities Eyes: Pupils equal, round and reactive to light.? ENT: Pharynx normal.? Neck: Normal inspection.? Neck supple.? CVS: Normal heart rate and rhythm.? Pulses normal.? Respiratory: No respiratory distress.? Breath sounds normal.? Abdomen: Soft and nontender.? Skin: Skin warm and dry.? Normal skin color.? Normal skin turgor.? Extremities: No lower extremity edema.? No calf ttp. 5/5 strength to bilateral upper and lower extremities Back: No midline tenderness, no C-spine tenderness, full range of motion, no CVA tenderness bilaterally Neuro: Oriented X 3.? No motor deficit.? No sensory deficit. CN 2-12 intact Course Reevaluation(s) Reevaluation #1: CBC appears to be around patient's baseline. Chemistry with no acute electrolyte abnormalities requiring intervention. Urine clean. Urine toxicology positive for cocaine. Ethanol negative. COVID negative. At this time patient will be placed into physician observation to allow more time to be evaluated by the behavioral health team. At time observation was started patient common cooperative no acute distress. Vital signs stable. Will continue to monitor. On section 12. Time: 00:27 MDM - Psych MDM Narrative Medical decision making narrative: 1922 61-year-old male presents with suicidal ideation x1 day Physical examination benign Plan at this time is medical clearance and evaluation by the behavioral health team. Medical Records Attestation: I reviewed the patient's medical records. Lab Data Attestation: I reviewed the patient's lab results. Result diagrams: 12/31/21 19:51 12/31/21 19:50 Labs: Lab Results 12/31/21 12/31/21 12/31/21 Range/Units 19:50 19:50 19:51 WBC 5.8 (4.8-10.8) X10*3/uL RBC 4.63 (4.60-5.80) X10*6/uL Hgb 12.3 L (14.0-18.0) g/dl Hct 36.8 L (42.0-52.0) % MCV 79.5 L (80.0-98.0) fL MCH 26.6 L (27.0-33.0) pg MCHC 33.4 (31.0-36.0) g/dl RDW 14.8 (11.0-16.0) % Plt Count 218 (160-400) X10*3/uL MPV 9.1 L (9.4-12.4) fL Immature Gran % (Auto) 0.3 (0.0-0.4) % Neut % (Auto) 71.6 (45-73) % Lymph % (Auto) 18.2 L (20-40) % Hyde % (Auto) 7.7 (2-11) % Eos % (Auto) 1.5 (0-4) % Baso % (Auto) 0.7 (0-2) % Lymph # (Auto) 1.1 L (1.2-4.9) X10*3/uL Hyde # (Auto) 0.5 (0.1-1.2) X10*3/uL Eos # (Auto) 0.1 (0.0-0.4) X10*3/uL Baso # (Auto) 0.0 (0.0-0.2) X10*3/uL Abs Immat Gran (auto) 0.02 (0.00-0.03) X10*3/uL Absolute Neuts (auto) 4.2 (2.0-8.3) x10*3/uL Absolute Nucleated RBC 0.000 (0.0-0.012) X10*3/uL Nucleated RBC % (auto) 0.0 (0.0-0.2) /100WBC Sodium 135 (135-145) mmol/L Potassium 3.9 (3.3-5.1) mmol/L Chloride 102 (96-108) mmol/L Carbon Dioxide 22 (22-29) mmol/L Anion Gap 15 (12-20) BUN 11 (9-16) mg/dL Creatinine 0.80 (0.5-1.4) mg/dL Estim Creat Clear Calc 108.5 Estimated GFR > 60 Random Glucose 175 H (60-115) mg/dL Calcium 8.9 (8.4-10.2) mg/dL Magnesium 1.7 (1.6-2.6) mg/dL Total Bilirubin 0.2 (0.0-1.0) mg/dL AST 62 H (5-37) U/L ALT 43 H (0-40) U/L Alkaline Phosphatase 72 (39-117) U/L Total Protein 7.2 (6.5-8.0) g/dL Albumin 4.3 (3.5-5.0) g/dL Urine Color Urine Appearance Urine pH (5.0-9.0) Ur Specific Gonzales (1.005-1.025) Urine Protein (Neg-Trace) mg/dL Urine Glucose (UA) (Negative) mg/dL Urine Ketones (Negative) mg/dL Urine Blood (Negative) Urine Nitrite (Negative) Ur Leukocyte Esterase (Negative) Urine Opiates Screen (Not Detect) Urine Fentanyl Screen (Not Detect) Ur Barbiturates Screen (Not Detect) Ur Phencyclidine Scrn (Not Detect) Ur Amphetamines Screen (Not Detect) U Benzodiazepines Scrn (Not Detect) Urine Cocaine Screen (Not Detect) U Marijuana (THC) Screen (Not Detect) Ethyl Alcohol < 10 mg/dL COVID-19 (TANA) Negative (Negative) COVID-19 Clin Com See Note 12/31/21 12/31/21 Range/Units 21:52 21:52 WBC (4.8-10.8) X10*3/uL RBC (4.60-5.80) X10*6/uL Hgb (14.0-18.0) g/dl Hct (42.0-52.0) % MCV (80.0-98.0) fL MCH (27.0-33.0) pg MCHC (31.0-36.0) g/dl RDW (11.0-16.0) % Plt Count (160-400) X10*3/uL MPV (9.4-12.4) fL Immature Gran % (Auto) (0.0-0.4) % Neut % (Auto) (45-73) % Lymph % (Auto) (20-40) % Hyde % (Auto) (2-11) % Eos % (Auto) (0-4) % Baso % (Auto) (0-2) % Lymph # (Auto) (1.2-4.9) X10*3/uL Hyde # (Auto) (0.1-1.2) X10*3/uL Eos # (Auto) (0.0-0.4) X10*3/uL Baso # (Auto) (0.0-0.2) X10*3/uL Abs Immat Gran (auto) (0.00-0.03) X10*3/uL Absolute Neuts (auto) (2.0-8.3) x10*3/uL Absolute Nucleated RBC (0.0-0.012) X10*3/uL Nucleated RBC % (auto) (0.0-0.2) /100WBC Sodium (135-145) mmol/L Potassium (3.3-5.1) mmol/L Chloride (96-108) mmol/L Carbon Dioxide (22-29) mmol/L Anion Gap (12-20) BUN (9-16) mg/dL Creatinine (0.5-1.4) mg/dL Estim Creat Clear Calc Estimated GFR Random Glucose (60-115) mg/dL Calcium (8.4-10.2) mg/dL Magnesium (1.6-2.6) mg/dL Total Bilirubin (0.0-1.0) mg/dL AST (5-37) U/L ALT (0-40) U/L Alkaline Phosphatase (39-117) U/L Total Protein (6.5-8.0) g/dL Albumin (3.5-5.0) g/dL Urine Color Yellow Urine Appearance Clear Urine pH 6.5 (5.0-9.0) Ur Specific Gonzales 1.025 (1.005-1.025) Urine Protein Negative (Neg-Trace) mg/dL Urine Glucose (UA) 100 H (Negative) mg/dL Urine Ketones Negative (Negative) mg/dL Urine Blood Negative (Negative) Urine Nitrite Negative (Negative) Ur Leukocyte Esterase Negative (Negative) Urine Opiates Screen Not Detected (Not Detect) Urine Fentanyl Screen Not Detected (Not Detect) Ur Barbiturates Screen Not Detected (Not Detect) Ur Phencyclidine Scrn Not Detected (Not Detect) Ur Amphetamines Screen Not Detected (Not Detect) U Benzodiazepines Scrn Not Detected (Not Detect) Urine Cocaine Screen POSITIVE H (Not Detect) U Marijuana (THC) Screen Not Detected (Not Detect) Ethyl Alcohol mg/dL COVID-19 (TANA) (Negative) COVID-19 Clin Com Critical Care Time Critical Care Time Critical Care Time: No Discharge Plan Discharge Clinical Impression: Depression, Suicidal ideation Patient Disposition: Still a Patient Prescriptions: No Action buprenorphine-naloxone [Suboxone] 4-1 mg film 1 film sublingual QID quetiapine 50 mg Tablet 50 mg PO DAILY PRN (Reason: Anxiety) 30 Days Qty: 30 0RF quetiapine 25 mg Tablet 25 mg PO DAILY 30 Days Qty: 30 0RF atorvastatin 40 mg tablet 40 mg PO BEDTIME 30 Days Qty: 30 0RF quetiapine 300 mg tablet 300 mg PO BEDTIME 30 Days Qty: 30 0RF trazodone 50 mg Tablet 50 mg PO BEDTIME PRN (Reason: Insomnia) 30 Days Qty: 30 0RF glyburide 5 mg Tablet 5 mg PO DAILY 30 Days Qty: 30 0RF lamotrigine 25 mg Tablet 50 mg PO BEDTIME 30 Days Qty: 60 0RF magnesium oxide 400 mg (241.3 mg magnesium) tablet 400 mg PO QAM 30 Days Qty: 30 0RF gabapentin 800 mg tablet 800 mg PO TID 30 Days Qty: 90 0RF pantoprazole 40 mg tablet,delayed release (DR/EC) 40 mg PO QAM 30 Days Qty: 30 0RF docusate sodium 100 mg Capsule 200 mg PO BEDTIME 30 Days Qty: 60 0RF Rx Instructions: hold for loose stool lisinopril 5 mg Tablet 5 mg PO DAILY 30 Days Qty: 30 0RF Protocol: Hold for SBP< HOLD for SBP < : 90 metoprolol succinate 25 mg tablet extended release 24 hr 25 mg PO BEDTIME 30 Days Qty: 30 0RF Protocol: Hold for SBP/HR < HOLD for SBP < : 90 HOLD for HR < : 60 metformin 1,000 mg tablet extended release 24hr 1,000 mg PO BID 30 Days Qty: 60 0RF duloxetine 60 mg capsule,delayed release(DR/EC) 60 mg PO QAM 30 Days Qty: 30 0RF fenofibrate 54 mg tablet 54 mg PO QAM 30 Days Qty: 30 0RF
--- NOTE | 2021-12-31 19:26 | PC.NURSE ---
Pt DARLINA from [facility] S12 for SI with plan. Pt presents A&Ox3, calm and cooperative with staff. PA at bedside, pt endorses SI with hx of similiar episodes and inpt admissions. Denies HI. Denies AH/VH. Awaiting medical clearance for admission. Aware of plan of care. MHA 1:1 at bedside. Safety maintained.
[2021-12-31 19:55] LABS: MANUAL DIFF FLAG NO
[2021-12-31 20:00] VITALS: BP 141/84; PULSE 89; RESP 16; TEMP 36.5; O2SAT 96
[2021-12-31 20:02] LABS: Basophils Percent Auto 0.7 % (0-2); Eosinophils Absolute Auto 0.1 X10*3/uL (0.0-0.4); Eosinophils Percent Auto 1.5 % (0-4); Hematocrit 36.8 % (42.0-52.0); Hemoglobin 12.3 g/dl (14.0-18.0); Imm Gran Abs Auto 0.02 X10*3/uL (0.00-0.03); Imm Gran Pct Auto 0.3 % (0.0-0.4); Lymphocytes Absolute Auto 1.1 X10*3/uL (1.2-4.9); Lymphocytes Percent Auto 18.2 % (20-40); Mean Corpuscular HGB Conc 33.4 g/dl (31.0-36.0); Mean Corpuscular Hemoglobin 26.6 pg (27.0-33.0); Mean Corpuscular Volume 79.5 fL (80.0-98.0); Mean Platelet Volume 9.1 fL (9.4-12.4); Monocytes Absolute Auto 0.5 X10*3/uL (0.1-1.2); Monocytes Percent Auto 7.7 % (2-11); Neutrophils Absolute Auto 4.2 x10*3/uL (2.0-8.3); Neutrophils Percent Auto 71.6 % (45-73); Platelet Count 218 X10*3/uL (160-400); Red Blood Count 4.63 X10*6/uL (4.60-5.80); Red Cell Distribution Width 14.8 % (11.0-16.0); White Blood Count 5.8 X10*3/uL (4.8-10.8)
[2021-12-31 20:15] LABS: Alanine Aminotransferase 43 U/L (0-40); Albumin Level 4.3 g/dL (3.5-5.0); Alkaline Phosphatase 72 U/L (39-117); Anion Gap 15 (12-20); Aspartate Amino Transferase 62 U/L (5-37); Bilirubin Total 0.2 mg/dL (0.0-1.0); Blood Urea Nitrogen 11 mg/dL (9-16); Calcium 8.9 mg/dL (8.4-10.2); Carbon Dioxide 22 mmol/L (22-29); Chloride 102 mmol/L (96-108); Creatinine Clr Calc Pharmacy 108.5; Estimated Glomerular Filt Rate > 60; Ethanol < 10 mg/dL; Glucose Random 175 mg/dL (60-115); Magnesium 1.7 mg/dL (1.6-2.6); Potassium 3.9 mmol/L (3.3-5.1); Sodium 135 mmol/L (135-145); Total Protein 7.2 g/dL (6.5-8.0)
[2021-12-31 20:26] LABS: COVID-19 Test Negative (Negative); IDNOW Serial# 55D5AD1C
[2021-12-31 21:59] LABS: Appearance Urine Clear; Color Urine Yellow; Glucose Urine UA 100 mg/dL (Negative); Leukocyte Esterase Urine Negative (Negative); Nitrite Urine Negative (Negative); PH 6.5 (5.0-9.0); Specific Gravity - Urine 1.025 (1.005-1.025); Urine Blood Negative (Negative); Urine Ketones Negative (Negative); Urine Protein Negative (Neg-Trace)
--- NOTE | 2021-12-31 22:12 | MHC.CARE ---
Care Team completed smart sheet.
[2021-12-31 22:28] LABS: Amphetamine Screen Urine Not Detected (Not Detect); Barbiturates, Urine Not Detected (Not Detect); Benzodiazepines Screen Urine Not Detected (Not Detect); Cannabinoid Screen Urine Not Detected (Not Detect); Cocaine Screen Urine POSITIVE (Not Detect); Fentanyl, urine Not Detected (Not Detect); Opiate Screen Urine Not Detected (Not Detect); Phencyclidine Screen Urine Not Detected (Not Detect)
[2022-01-01 06:13] VITALS: BP 143/80; PULSE 76; RESP 16; TEMP 36.8; O2SAT 97
--- NOTE | 2022-01-01 07:04 | PC.NURSE ---
Per Maxine Fernandez, CM with N-pt cleared by [facility]. She recommends [facility] CM with [facility] at [phone] to develop d/c plan/placement plan.
[2022-01-01 08:32] VITALS: BP 140/85; PULSE 78; RESP 19; O2SAT 98
--- NOTE | 2022-01-01 09:57 | PHA.MEDREC ---
Pharmacy Consult ? Medication Reconciliation Pharmacy has completed the medication reconciliation. Spoke to Kathi at [facility] who sent me a current med list for pt.
[2022-01-01] MEDS: lisinopriL 5 MG TABLET PO (12:42)
[2022-01-01] MEDS: Atorvastatin Calcium 40 MG TABLET PO (12:42)
[2022-01-01] MEDS: metFORMIN HCl 1,000 MG TABLET 1000 MG PO ×2 (12:42→21:56)
[2022-01-01] MEDS: QUEtiapine Fumarate 25 MG TABLET PO (12:42)
[2022-01-01] MEDS: Loratadine 10 MG TABLET PO (12:42)
[2022-01-01] MEDS: DULoxetine HCl 60 MG CAPSULE.DR PO (12:42)
[2022-01-01] MEDS: Magnesium Oxide 400 MG TABLET PO (12:42)
[2022-01-01] MEDS: Buprenorphine/Naloxone 4/1 mg FILM 1 FILM SUBLINGUAL ×3 (12:42→21:56)
[2022-01-01] MEDS: Metoprolol Succinate ER 25 MG TAB.ER.24H PO (12:43)
[2022-01-01] MEDS: Cholecalciferol (Vitamin D3) 25 MCG TABLET 50 MCG PO (12:43)
--- NOTE | 2022-01-01 15:06 | MHC.CM.ED ---
Patient came to ER due to SI. Patient was cleared by [facility]. Patient is active with [facility] and has a immigration case manager, Shital, from [employer]. Shital can be reached via telephone at [phone]. T/W left a message for Shital requesting a return telephone call. T/w spoke with Kamila at [facility]. Per Kamila, Shital is in the process of trying to get patient's PCP to sign Section 35 paperwork. Section 35 will not be able to be filed today. Transport arranged by [facility] for 3pm. Transport arrived and patient made SI comments. Patient will not be discharged at this time. [facility] will be reconsulted by Tatiana TILLMAN.
[2022-01-01] MEDS: Gabapentin 400 MG CAPSULE 800 MG PO ×2 (16:16→21:56)
--- NOTE | 2022-01-01 17:14 | MHC.CARE ---
CARE Team reviews [facility] assessment conducted yesterday and speaks with pt. Per [facility] assessment, pt made suicidal statements in the context of not wanting to return to his [place] apartment, as he owes money to his neighbors and is afraid that they will come after him. [facility] cleared pt for IPLOC yesterday, stating that he has not hx of attempts, but does have a hx of endorsing SI and hx of inpt admissions. [facility] recommended that CM attempt to connect with [facility] in order to discuss pt's plan. Per notes, pt's team was trying to pursue sect 35. Contact at [facility] is no longer Shital Chaudhry, she no longer works there. New fixed income manager from [facility] is Milagros Rosen [phone] who CARE Team speaks with. Per Milagros, pt is struggling with cocaine addictions. When he gets his money at the beginning of the month he spends all of it immediately, causing his to fall behind with rent payments and borrow money from friends and neighbors that he cannot pay back. Milagros reports feeling that pt needs a sect 35 at this time, but she is struggling to find someone who will sign the affidavit. Milagros feels that pt will not be in danger if he were to discharge back to his apartment in terms of SI or neighbors wanting to harm pt. Milagros agrees to speak with pt on the phone and follow up with him tomorrow. Pt continues to present consistently to the way was during his initial [facility] assessment. Further assessment not indicated at this time. SI statements are intermittent and behavioral in nature, in the context of trying to avoid facing consequences after discharge. CARE Team supports d/c at this time. Per Pham from , pt cannot access a chair van until tomorrow. CARE Team discusses recommendations with LAYNE Suresh.
--- NOTE | 2022-01-01 17:33 | MHC.CM.ED ---
Pt has been cleared by N and CARE team for d/c home. Pt has [facility]. CM called and spoke with ZORAN Marrero. Per Kamila, she sent a ride and patient refused and said he was suicidal. She cannot arrange transportation for him now and will not authorize an ambulance/chair van. Pt will need to wait until the morning for [facility] arranged transport home. Pt has no one to transport him home. Pt aware. Pt understands that he must accept the transport tomorrow morning. Tatiana TILLMAN and Yesika CASTELLANOS aware.
[2022-01-01] MEDS: Docusate Sodium 100 MG CAPSULE 200 MG PO (21:56)
[2022-01-01] MEDS: lamoTRIgine 25 MG TABLET 75 MG PO (21:56)
[2022-01-01] MEDS: QUEtiapine Fumarate 300 MG TABLET PO (21:56)
[2022-01-02 02:00] VITALS: RESP 16
[2022-01-02] MEDS: Omeprazole 20 MG CAPSULE.DR PO (06:39)
[2022-01-02] MEDS: Atorvastatin Calcium 40 MG TABLET PO (08:54)
[2022-01-02] MEDS: Magnesium Hydrox/Alum Hydrox 30 ML ORAL.SUSP PO (08:54)
[2022-01-02] MEDS: Gabapentin 400 MG CAPSULE 800 MG PO (08:54)
[2022-01-02] MEDS: QUEtiapine Fumarate 25 MG TABLET PO (08:54)
[2022-01-02] MEDS: Buprenorphine/Naloxone 4/1 mg FILM 1 FILM SUBLINGUAL (08:54)
[2022-01-02] MEDS: Loratadine 10 MG TABLET PO (08:55)
[2022-01-02] MEDS: Magnesium Oxide 400 MG TABLET PO (08:55)
[2022-01-02] MEDS: Cholecalciferol (Vitamin D3) 25 MCG TABLET 50 MCG PO (08:55)
[2022-01-02] MEDS: metFORMIN HCl 1,000 MG TABLET 1000 MG PO (08:55)
[2022-01-02 09:06] VITALS: BP 101/69; PULSE 82; RESP 16; TEMP 36.4; O2SAT 95
[2022-01-02] MEDS: Fenofibrate 54 MG TABLET PO (09:10)
[2022-01-02] MEDS: glyBURIDE 5 MG TABLET PO (09:10)
[2022-01-02] MEDS: DULoxetine HCl 60 MG CAPSULE.DR PO (09:10)
--- NOTE | 2022-01-02 10:47 | MHC.CM.ED ---
[facility]
== END 2022-01-02 10:11 | disposition home or self-care (01) ==
PROVIDERS: Physician Assistant; Emergency Provider Emergency Medicine; PCP Internal Medicine Rheumatology
DX: F33.1 Major depressive disorder, recurrent, moderate (principal); R45.851 Suicidal ideations; I10 Essential (primary) hypertension; F14.10 Cocaine abuse, uncomplicated; F17.210 Nicotine dependence, cigarettes, uncomplicated; Z71.6 Tobacco abuse counseling; Z20.822 Contact with and (suspected) exposure to COVID-19; Z79.899 Other long term (current) drug therapy
CPT/HCPCS: 80053; 80307; 81003; 82077; 83735; 85025; 87635; 97161; 99285

== ENCOUNTER 2022-06-02 01:21 | Inpatient (IN) | payer OTHER, MEDICAID, SELFPAY ==
[2022-06-02] VITALS (8 sets, daily range): BP systolic 114–194; BP diastolic 70–110; PULSE 74–102; RESP 16–29; TEMP 36.9–37.2; O2SAT 94–96; BMI 25.8
--- NOTE | ~2022-06-02 | CT_ITS ---
EXAMINATION: CT ABDOMEN AND PELVIS WITH CONTRAST CLINICAL INFORMATION: Abdominal pain, nausea/vomiting COMPARISON: 04/20/2021 TECHNIQUE: Multidetector volumetric images were obtained from the superior aspect of the liver through the pubic symphysis following administration 85 mL of Omnipaque 350 intravenous contrast. Sagittal and coronal reformatted images were obtained on the technologist's workstation. Oral contrast: No This CT examination was performed using dose optimization techniques as appropriate, variously including the following: *Automated exposure control *Adjustment of mA and/or kV according to patient size (this includes techniques or standardized protocols for targeted exams where dose is matched to indication/reason for exam; i.e. extremities or head) *Use of iterative reconstruction technique DLP: 650 mGy-cm FINDINGS: LUNG BASES: The visualized lung bases are unremarkable. Thickened appearance of the distal esophagus is redemonstrated, similar to prior. LIVER, GALLBLADDER, AND BILIARY TREE: The liver demonstrates hypoattenuation suspicious for steatosis. No focal hepatic lesion or biliary ductal dilatation is present. The gallbladder is unremarkable with no evidence of radiopaque gallstones, gallbladder wall thickening, or obvious pericholecystic inflammatory changes. PANCREAS: Unremarkable. SPLEEN: Unremarkable. ADRENAL GLANDS: Unremarkable. KIDNEYS AND URETERS: The kidneys are normal in size, shape, and attenuation. No hydronephrosis, hydroureter, or calculi seen. Small cyst noted off the upper right kidney; no follow-up recommended. BLADDER: Unremarkable. GASTROINTESTINAL TRACT: No evidence of bowel obstruction. Large amount of stool is present in the colon. No significant bowel wall thickening is seen. The appendix is unremarkable. No free fluid or free air is seen. ABDOMINAL WALL: Small fat-containing left inguinal hernia. LYMPH NODES: Normal. VASCULAR: There is atherosclerotic calcification along the aorta and iliac arteries. Redemonstrated mild focal dilation of the infrarenal aorta to approximately 2.8 cm, similar to prior. PELVIC VISCERA: Unremarkable. OSSEOUS STRUCTURES: Healed fractures of the right superior and inferior pubic rami. Anterior wedge compression deformity of T12 is unchanged from prior. CT/CT abdomen pelvis w IV con IMPRESSION: No acute findings identified in the abdomen/pelvis. Large volume of stool. Chronic findings as noted above.
[2022-06-02 01:45] LABS: Glucose, Whole Blood 313 mg/dL (60-115)
[2022-06-02 02:01] LABS: MANUAL DIFF FLAG NO
[2022-06-02 02:03] LABS: Basophils Absolute Auto 0.1 X10*3/uL (0.0-0.2); Basophils Percent Auto 0.6 % (0-2); Eosinophils Percent Auto 0.2 % (0-4); Hematocrit 42.1 % (42.0-52.0); Hemoglobin 14.1 g/dl (14.0-18.0); Imm Gran Abs Auto 0.04 X10*3/uL (0.00-0.03); Imm Gran Pct Auto 0.5 % (0.0-0.4); Lymphocytes Absolute Auto 1.3 X10*3/uL (1.2-4.9); Lymphocytes Percent Auto 15.3 % (20-40); Mean Corpuscular HGB Conc 33.5 g/dl (31.0-36.0); Mean Corpuscular Volume 77.5 fL (80.0-98.0); Mean Platelet Volume 9.4 fL (9.4-12.4); Monocytes Absolute Auto 0.6 X10*3/uL (0.1-1.2); Monocytes Percent Auto 6.9 % (2-11); Neutrophils Absolute Auto 6.4 x10*3/uL (2.0-8.3); Neutrophils Percent Auto 76.5 % (45-73); Platelet Count 290 X10*3/uL (160-400); Red Blood Count 5.43 X10*6/uL (4.60-5.80); Red Cell Distribution Width 14.9 % (11.0-16.0); White Blood Count 8.4 X10*3/uL (4.8-10.8)
[2022-06-02 02:21] LABS: COVID-19 Test Negative (Negative); IDNOW Serial# 6674DD1D
--- NOTE | 2022-06-02 02:57 | ED.NAVMDI ---
HPI - Nausea/Vomiting/Diarrhea General Chief complaint: Nausea/Vomiting/Diarrhea Stated complaint: n/v 2xdays Time Seen by Provider: 06/02/22 01:37 History of Present Illness HPI Narrative: Patient is a 61-year-old male with a history polysubstance abuse. History of depression, history cocaine dependence, hypertension, exploratory lap to the abdominal many years ago. No history of bowel obstructions in the past. Presents today with having nausea vomiting. Not feeling well. Unable to tolerate fluids. At 1st it was more bile like in color. Now is got becomes slightly bloody. Patient not on blood thinners. Has diffuse abdominal pain but worse in the epigastric area. Denies any chest pain. Denies any diaphoresis. Denies any focal weakness. Denies any bloody stool. The stool was hard and brown. Patient had a history of something similar in the past. No history of bowel obstructions in the past. Related Data Home Medications Medication Instructions Recorded Confirmed buprenorphine 4 mg-naloxone 1 mg 1 film sublingual QID 10/29/21 01/01/22 sublingual film (Suboxone) acetaminophen 325 mg tablet 2 tab PO TID PRN Pain 01/01/22 01/01/22 aluminum-mag hydroxide-simethicone 30 ml PO TIDWM 01/01/22 01/01/22 200 mg-200 mg-20 mg/5 mL oral susp (Sury-Mox Antacid-Antigas) atorvastatin 40 mg tablet 40 mg PO DAILY 01/01/22 01/01/22 cholecalciferol (vitamin D3) 50 50 mcg PO DAILY 01/01/22 01/01/22 mcg (2,000 unit) tablet duloxetine 60 mg capsule,delayed 60 mg PO DAILY 01/01/22 01/01/22 release fenofibrate 54 mg tablet 54 mg PO DAILY 01/01/22 01/01/22 fluticasone propionate 50 1 spray intranasal DAILY 01/01/22 01/01/22 mcg/actuation nasal spray,suspension lamotrigine 25 mg tablet 75 mg PO BEDTIME 01/01/22 01/01/22 loratadine 10 mg tablet 10 mg PO DAILY 01/01/22 01/01/22 magnesium oxide 400 mg (241.3 mg 400 mg PO DAILY 01/01/22 01/01/22 magnesium) tablet metformin 500 mg tablet 2 tab PO BID 01/01/22 01/01/22 metoprolol succinate 25 mg 25 mg PO DAILY 01/01/22 01/01/22 tablet,extended release 24 hr pantoprazole 40 mg tablet,delayed 40 mg PO DAILY 01/01/22 01/01/22 release Previous Rx's Medication Instructions Recorded docusate sodium 100 mg capsule 200 mg PO BEDTIME 30 days #60 caps 11/08/21 gabapentin 800 mg tablet 800 mg PO TID 30 days #90 tabs 11/08/21 glyburide 5 mg tablet 5 mg PO DAILY 30 days #30 tabs 11/08/21 lisinopril 5 mg tablet 5 mg PO DAILY 30 days #30 tabs 11/08/21 quetiapine 25 mg tablet 25 mg PO DAILY 30 days #30 tabs 11/08/21 quetiapine 300 mg tablet 300 mg PO BEDTIME 30 days #30 tabs 11/08/21 Allergies Allergy/AdvReac Type Severity Reaction Status Date / Time No Known Allergies Allergy Verified 05/31/21 11:24 Review of Systems Review of Systems: Positive nausea vomiting Yes all other systems are reviewed and are negative [facility] Past Medical History Attestation statement: The following information was validated with the patient. Medical History Acute blood loss anemia Cerebral infarction Cocaine use disorder, moderate, dependence Diabetes HTN (hypertension) MDD (major depressive disorder), recurrent episode, moderate Multifactorial gait disorder Opioid use disorder, mild, in sustained remission Social History Social History Household Members: None Housing: House Housing Other:: I live in a farmhouse in [place] . Do you presently have visiting nurse or other home services: Yes Unable to assess alcohol history related to: Unknown Alcohol intake: never Patient Tobacco Use Status: Current everyday Tobacco user Tobacco use type: Cigarette Cigarette Packs Per Day: 2 Cigarettes Per Day: 40.0 Years Smoked: 12 e-Cigarette/Vaping Use: Never Used Second Hand Smoke Exposure: No Substance Use Type: Crack/Cocaine Advance Directives: No service: Yes Current occupational status: disabled Sexual orientation: Bisexual Physical Exam Vital Signs: Vital Signs: Last Vital Signs Temp 98.5 F 06/02/22 04:54 Pulse 85 06/02/22 04:54 Resp 16 06/02/22 04:54 BP 174/89 H 06/02/22 04:54 Pulse Ox 96 06/02/22 04:54 O2 Del Method 06/02/22 04:54 BMI result Body Mass Index 25.8 Appearance: Alert. Oriented X3. No acute distress. Eyes: Pupils equal, round and reactive to light. ENT: Pharynx normal. Neck: Normal inspection. Neck supple. No lymph nodes noted. No crepitus CVS: Normal heart rate and rhythm. Pulses normal. Normal S1 and S2 Respiratory: No respiratory distress. Breath sounds normal. No Wheezing. No rales Abdomen: Soft and nontender. No rigidity. No distention. good BS x4 Skin: Skin warm and dry. Normal skin color. Normal skin turgor. Extremities: No lower extremity edema. Neurovascular intact to all extremities. No Lacerations. No Rash Neuro: Oriented X 3. No motor deficit. No sensory deficit. Moving all extermities. No slurred speech Medications Administered Discontinued Medications Generic Name Dose Route Start Last Admin Trade Name Freq PRN Reason Stop Dose Admin Sodium Chloride 1,000 mls @ 999 mls/hr 06/02/22 03:00 06/02/22 06:08 Ns IV 06/02/22 04:00 Infused .Q1H1M SHARA Infusion Sodium Chloride 1,000 mls @ 999 mls/hr 06/02/22 03:00 06/02/22 06:08 Ns IV 06/02/22 04:00 Infused .Q1H1M SHARA Infusion Iohexol 85 ml 06/02/22 04:34 06/02/22 04:34 Iohexol 350 Mg/Ml 100 Ml Infus..Btl IV 06/02/22 04:35 85 ml ONCE ONE Administration Ondansetron HCl 4 mg 06/02/22 03:49 06/02/22 03:53 Ondansetron Hcl 4 Mg/2 Ml Vial IVPUSH 06/02/22 03:50 4 mg ONCE ONE Administration Pantoprazole Sodium 40 mg 06/02/22 04:18 06/02/22 04:39 Pantoprazole Sodium 40 Mg/10 Ml Vial IVPUSH 06/02/22 04:19 40 mg ONCE ONE Administration Pantoprazole Sodium 40 mg 06/02/22 05:38 06/02/22 06:12 Pantoprazole Sodium 40 Mg/10 Ml Vial IVPUSH 06/02/22 05:39 40 mg ONCE ONE Administration Medical Decision Making Medical Decision Making [facility] Narrative: Patient has nausea vomiting at 1st was bile subsequently became coffee-ground most likely has Naida-Cifuentes versus gastritis. Ppi was started. IV fluids given. CT scan of the abdomen pelvis done. Did not show any acute evidence of obstruction abscess perforation. Patient's case discussed with the hospitalist team. Will admit patient for further hydration. Monitor. Patient's hemoglobin is actually above baseline. Patient is in guarded condition awaiting admission. Differential Diagnosis Differential Diagnoses: The differential diagnosis associated with the presentation includes GI bleed, nausea vomiting bowel obstruction, abscess, perforation, esophageal varices, gastritis, Naida-Cifuentes tear Admission/Observation Consideration of admission/observation: Escalation of care including admission/observation considered Will require admission for further monitoring Consult Healthcare Provider Management of the patient was discussed with: Hospitalist Lab Data [facility] Lab Attestation statement: I reviewed the patient's lab results. 06/02/22 01:56 06/02/22 01:56 Labs: Lab Results 06/02/22 06/02/22 06/02/22 Range/Units 01:39 01:56 01:56 WBC 8.4 (4.8-10.8) X10*3/uL RBC 5.43 (4.60-5.80) X10*6/uL Hgb 14.1 (14.0-18.0) g/dl Hct 42.1 (42.0-52.0) % MCV 77.5 L (80.0-98.0) fL MCH 26.0 L (27.0-33.0) pg MCHC 33.5 (31.0-36.0) g/dl RDW 14.9 (11.0-16.0) % Plt Count 290 D (160-400) X10*3/uL MPV 9.4 (9.4-12.4) fL Immature Gran % (Auto) 0.5 H (0.0-0.4) % Neut % (Auto) 76.5 H (45-73) % Lymph % (Auto) 15.3 L (20-40) % [place] % (Auto) 6.9 (2-11) % Eos % (Auto) 0.2 (0-4) % Baso % (Auto) 0.6 (0-2) % Lymph # (Auto) 1.3 (1.2-4.9) X10*3/uL [place] # (Auto) 0.6 (0.1-1.2) X10*3/uL Eos # (Auto) 0.0 (0.0-0.4) X10*3/uL Baso # (Auto) 0.1 (0.0-0.2) X10*3/uL Abs Immat Gran (auto) 0.04 H (0.00-0.03) X10*3/uL Absolute Neuts (auto) 6.4 (2.0-8.3) x10*3/uL Absolute Nucleated RBC 0.000 (0.0-0.012) X10*3/uL Nucleated RBC % (auto) 0.0 (0.0-0.2) /100WBC Sodium (135-145) mmol/L Potassium (3.3-5.1) mmol/L Chloride (96-108) mmol/L Carbon Dioxide (22-29) mmol/L Anion Gap (12-20) BUN (9-16) mg/dL Creatinine (0.5-1.4) mg/dL Estim Creat Clear Calc Estimated GFR POC Glucose 313 H (60-115) mg/dL Random Glucose (60-115) mg/dL Lactic Acid (0.5-2.0) mmol/L Calcium (8.4-10.2) mg/dL Total Bilirubin (0.0-1.0) mg/dL AST (5-37) U/L ALT (0-40) U/L Alkaline Phosphatase (39-117) U/L Total Protein (6.5-8.0) g/dL Albumin (3.5-5.0) g/dL Lipase (8-78) U/L Ethyl Alcohol mg/dL COVID-19 (TANA) Negative (Negative) COVID-19 Clin Com See Note 06/02/22 06/02/22 Range/Units 02:48 03:15 WBC (4.8-10.8) X10*3/uL RBC (4.60-5.80) X10*6/uL Hgb (14.0-18.0) g/dl Hct (42.0-52.0) % MCV (80.0-98.0) fL MCH (27.0-33.0) pg MCHC (31.0-36.0) g/dl RDW (11.0-16.0) % Plt Count (160-400) X10*3/uL MPV (9.4-12.4) fL Immature Gran % (Auto) (0.0-0.4) % Neut % (Auto) (45-73) % Lymph % (Auto) (20-40) % [place] % (Auto) (2-11) % Eos % (Auto) (0-4) % Baso % (Auto) (0-2) % Lymph # (Auto) (1.2-4.9) X10*3/uL [place] # (Auto) (0.1-1.2) X10*3/uL Eos # (Auto) (0.0-0.4) X10*3/uL Baso # (Auto) (0.0-0.2) X10*3/uL Abs Immat Gran (auto) (0.00-0.03) X10*3/uL Absolute Neuts (auto) (2.0-8.3) x10*3/uL Absolute Nucleated RBC (0.0-0.012) X10*3/uL Nucleated RBC % (auto) (0.0-0.2) /100WBC Sodium 137 (135-145) mmol/L Potassium 4.2 (3.3-5.1) mmol/L Chloride 97 (96-108) mmol/L Carbon Dioxide 25 (22-29) mmol/L Anion Gap 19 (12-20) BUN 14 (9-16) mg/dL Creatinine 0.99 (0.5-1.4) mg/dL Estim Creat Clear Calc 80.3 Estimated GFR > 60 POC Glucose (60-115) mg/dL Random Glucose 343 H (60-115) mg/dL Lactic Acid 1.5 (0.5-2.0) mmol/L Calcium 10.2 D (8.4-10.2) mg/dL Total Bilirubin 0.8 (0.0-1.0) mg/dL AST 63 H (5-37) U/L ALT 62 H (0-40) U/L Alkaline Phosphatase 107 (39-117) U/L Total Protein 7.9 (6.5-8.0) g/dL Albumin 4.9 (3.5-5.0) g/dL Lipase 17 (8-78) U/L Ethyl Alcohol < 10 mg/dL COVID-19 (TANA) (Negative) COVID-19 Clin Com Independent Historian Clinical information obtained from an independent historian. History obtained from or confirmed by: EMS External Record Review External record reviewed: Inpatient record Chronic Conditions Patient?s care impacted by: Hypertension Critical Care Time Critical Care Time Critical Care Time: Yes Total Critical Care Time: 40 Attestation: I have personally provided 40 minutes of critical care time exclusive of time spent on separately billable procedures. Time includes review of lab data, radiology results, discussion with consultants, and monitoring for potential decompensation. Interventions were performed as documented above Discharge Plan Discharge Clinical Impression: HTN (hypertension), Vomiting, Acute GI bleeding Patient Disposition: Admitted As Inpatient Prescriptions: No Action buprenorphine-naloxone [Suboxone] 4-1 mg film 1 film sublingual QID quetiapine 25 mg Tablet 25 mg PO DAILY 30 Days Qty: 30 0RF quetiapine 300 mg tablet 300 mg PO BEDTIME 30 Days Qty: 30 0RF glyburide 5 mg Tablet 5 mg PO DAILY 30 Days Qty: 30 0RF gabapentin 800 mg tablet 800 mg PO TID 30 Days Qty: 90 0RF docusate sodium 100 mg Capsule 200 mg PO BEDTIME 30 Days Qty: 60 0RF Rx Instructions: hold for loose stool lisinopril 5 mg Tablet 5 mg PO DAILY 30 Days Qty: 30 0RF Protocol: Hold for SBP< HOLD for SBP < : 90 metformin 500 mg tablet 2 tab PO BID acetaminophen 325 mg tablet 2 tab PO TID PRN (Reason: Pain) alum-mag hydroxide-simeth [Sury-Mox Antacid-Antigas] 200-200-20 mg/5 mL Suspension 30 ml PO TIDWM Rx Instructions: administer between meals and at bedtime fluticasone propionate 50 mcg/actuation [place],Suspension 1 spray INTRANASAL DAILY Rx Instructions: administer into each nostril loratadine 10 mg Tablet 10 mg PO DAILY cholecalciferol (vitamin D3) 50 mcg (2,000 unit) Tablet 50 mcg PO DAILY atorvastatin 40 mg tablet 40 mg PO DAILY lamotrigine 25 mg tablet 75 mg PO BEDTIME magnesium oxide 400 mg (241.3 mg magnesium) tablet 400 mg PO DAILY pantoprazole 40 mg tablet,delayed release (DR/EC) 40 mg PO DAILY metoprolol succinate 25 mg tablet extended release 24 hr 25 mg PO DAILY Protocol: Hold for SBP/HR < HOLD for SBP < : 90 HOLD for HR < : 60 duloxetine 60 mg capsule,delayed release(DR/EC) 60 mg PO DAILY fenofibrate 54 mg tablet 54 mg PO DAILY
[2022-06-02 03:12] LABS: Alanine Aminotransferase 62 U/L (0-40); Albumin Level 4.9 g/dL (3.5-5.0); Alkaline Phosphatase 107 U/L (39-117); Anion Gap 19 (12-20); Aspartate Amino Transferase 63 U/L (5-37); Bilirubin Total 0.8 mg/dL (0.0-1.0); Blood Urea Nitrogen 14 mg/dL (9-16); Calcium 10.2 mg/dL (8.4-10.2); Carbon Dioxide 25 mmol/L (22-29); Chloride 97 mmol/L (96-108); Creatinine Clr Calc Pharmacy 80.3; Estimated Glomerular Filt Rate > 60; Glucose Random 343 mg/dL (60-115); Lipase 17 U/L (8-78); Potassium 4.2 mmol/L (3.3-5.1); Sodium 137 mmol/L (135-145); Total Protein 7.9 g/dL (6.5-8.0)
[2022-06-02 03:35] LABS: Lactic Acid 1.5 mmol/L (0.5-2.0)
[2022-06-02] MEDS: 0.9 % Sodium Chloride 1,000 ML 999 ML IV ×2 (03:53)
[2022-06-02] MEDS: ondansetron HCL 4 MG/2 ML VIAL IVPUSH ×2 (03:53→12:18)
[2022-06-02] MEDS: iohexoL 350 MG/ML 100 ML INFUS..BTL 85 ML IV (04:34)
[2022-06-02 04:35] LABS: Ethanol < 10 mg/dL
[2022-06-02] MEDS: Pantoprazole Sodium 40 MG/10 ML VIAL IVPUSH ×2 (04:39→06:12)
--- NOTE | 2022-06-02 05:41 | PM.IMHP ---
History of Present Illness Date of Service: 06/02/22 Chief Complaint: Nausea/vomiting This is a 61-year-old male with pertinent history of cocaine use disorder, essential hypertension, mood disorder, diabetes mellitus, mixed hyperlipidemia, neuropathy who presents to the emergency department for evaluation of nausea and bloody emesis. Patient states he has been having 2 days of nausea and persistent emesis. Initially it was nonbloody but with the last 1 day it is has been coffee-ground and lately skyler blood. Also has associated epigastric pain, constant, nonradiating, progressive and without any relieving factors. Patient denies fever, chills, chest discomfort, palpitations, shortness of breath, changes in urinary habits. Review of Systems Constitutional: Constitutional: Reports no additional constitutional complaints Cardiovascular: Cardiovascular: Reports no additional cardiovascular complaints Respiratory: Respiratory: Reports no additional respiratory complaints Gastrointestinal: Gastrointestinal: Reports abdominal pain, Reports coffee ground emesis, Reports nausea, Reports vomiting and Reports hematemesis [facility] Medical History Acute blood loss anemia Cerebral infarction Cocaine use disorder, moderate, dependence Diabetes HTN (hypertension) MDD (major depressive disorder), recurrent episode, moderate Multifactorial gait disorder Opioid use disorder, mild, in sustained remission Social History Household Members: None Housing: House Housing Other:: I live in a farmhouse in [place] . Do you presently have visiting nurse or other home services: Yes Unable to assess alcohol history related to: Unknown Alcohol intake: never Patient Tobacco Use Status: Current everyday Tobacco user Tobacco use type: Cigarette Cigarette Packs Per Day: 2 Cigarettes Per Day: 40.0 Years Smoked: 12 e-Cigarette/Vaping Use: Never Used Second Hand Smoke Exposure: No Substance Use Type: Crack/Cocaine Advance Directives: No service: Yes Current occupational status: disabled Sexual orientation: Bisexual Meds Allergies Allergy/AdvReac Type Severity Reaction Status Date / Time No Known Allergies Allergy Verified 05/31/21 11:24 Active Medications: Current Medications Acetaminophen (Acetaminophen 325 Mg Tablet) 650 mg PO Q6H PRN PRN Reason: Pain, Mild (Pain Scale 1-3) Melatonin (Melatonin 3 Mg Tablet) 6 mg PO BEDTIME PRN PRN Reason: Insomnia Ondansetron HCl (Ondansetron Hcl 4 Mg/2 Ml Vial) 4 mg IVPUSH Q8H PRN PRN Reason: Nausea and Vomiting Pantoprazole Sodium (Pantoprazole Sodium 40 Mg/10 Ml Vial) 40 mg IVPUSH ONCE ONE Stop: 06/02/22 05:39 Pharmacy Consult (Consult Rx Perform Med Rec) 1 each MISCELLANE ONCE PRN PRN Reason: Consult order Sodium Chloride (0.9 % Sodium Chloride Flush 3 Ml Syringe) 3 ml IVFLUSH [facility] Medications Medication Instructions Recorded Confirmed Last Taken Type buprenorphine 4 mg-naloxone 1 mg 1 film sublingual QID 10/29/21 01/01/22 Unknown History sublingual film (Suboxone) acetaminophen 325 mg tablet 2 tab PO TID PRN Pain 01/01/22 01/01/22 Unknown History aluminum-mag hydroxide-simethicone 30 ml PO TIDWM 01/01/22 01/01/22 Unknown History 200 mg-200 mg-20 mg/5 mL oral susp (Sury-Mox Antacid-Antigas) atorvastatin 40 mg tablet 40 mg PO DAILY 01/01/22 01/01/22 Unknown History cholecalciferol (vitamin D3) 50 50 mcg PO DAILY 01/01/22 01/01/22 Unknown History mcg (2,000 unit) tablet duloxetine 60 mg capsule,delayed 60 mg PO DAILY 01/01/22 01/01/22 Unknown History release fenofibrate 54 mg tablet 54 mg PO DAILY 01/01/22 01/01/22 Unknown History fluticasone propionate 50 1 spray intranasal DAILY 01/01/22 01/01/22 Unknown History mcg/actuation nasal spray,suspension lamotrigine 25 mg tablet 75 mg PO BEDTIME 01/01/22 01/01/22 Unknown History loratadine 10 mg tablet 10 mg PO DAILY 01/01/22 01/01/22 Unknown History magnesium oxide 400 mg (241.3 mg 400 mg PO DAILY 01/01/22 01/01/22 Unknown History magnesium) tablet metformin 500 mg tablet 2 tab PO BID 01/01/22 01/01/22 Unknown History metoprolol succinate 25 mg 25 mg PO DAILY 01/01/22 01/01/22 Unknown History tablet,extended release 24 hr pantoprazole 40 mg tablet,delayed 40 mg PO DAILY 01/01/22 01/01/22 Unknown History release Physical Exam Vital Signs and Narrative: Vital Signs: Last Vital Signs Temp 98.5 F 06/02/22 04:54 Pulse 85 06/02/22 04:54 Resp 16 06/02/22 04:54 BP 174/89 H 06/02/22 04:54 Pulse Ox 96 06/02/22 04:54 O2 Del Method 06/02/22 04:54 BMI result Body Mass Index 25.8 Middle-aged male lying in bed in mild distress Neck supple, no JVD Regular rate and rhythm, S1-S2 heard Regular breath sounds bilaterally, no wheezing or crackles appreciated Abdomen soft nontender, no guarding, no rigidity Patient is awake, alert and oriented to self, place, time and person ; no focal motor deficit Psych: Normal mood No pedal edema Results Labs 06/02/22 01:56 06/02/22 02:48 Labs: Laboratory Results - last 24 hr 06/02/22 06/02/22 06/02/22 01:39 01:56 01:56 MCV 77.5 L MCH 26.0 L MCHC 33.5 RDW 14.9 Plt Count 290 D MPV 9.4 Immature Gran % (Auto) 0.5 H Neut % (Auto) 76.5 H Lymph % (Auto) 15.3 L [place] % (Auto) 6.9 Eos % (Auto) 0.2 Baso % (Auto) 0.6 Lymph # (Auto) 1.3 [place] # (Auto) 0.6 Eos # (Auto) 0.0 Baso # (Auto) 0.1 Abs Immat Gran (auto) 0.04 H Absolute Neuts (auto) 6.4 Absolute Nucleated RBC 0.000 Nucleated RBC % (auto) 0.0 Anion Gap Estim Creat Clear Calc Estimated GFR POC Glucose 313 H Random Glucose Lactic Acid Calcium Total Bilirubin AST ALT Alkaline Phosphatase Total Protein Albumin Lipase Ethyl Alcohol COVID-19 (TANA) Negative COVID-19 Clin Com See Note 06/02/22 06/02/22 02:48 03:15 MCV MCH MCHC RDW Plt Count MPV Immature Gran % (Auto) Neut % (Auto) Lymph % (Auto) [place] % (Auto) Eos % (Auto) Baso % (Auto) Lymph # (Auto) [place] # (Auto) Eos # (Auto) Baso # (Auto) Abs Immat Gran (auto) Absolute Neuts (auto) Absolute Nucleated RBC Nucleated RBC % (auto) Anion Gap 19 Estim Creat Clear Calc 80.3 Estimated GFR > 60 POC Glucose Random Glucose 343 H Lactic Acid 1.5 Calcium 10.2 D Total Bilirubin 0.8 AST 63 H ALT 62 H Alkaline Phosphatase 107 Total Protein 7.9 Albumin 4.9 Lipase 17 Ethyl Alcohol < 10 COVID-19 (TANA) COVID-19 Clin Com Imaging Radiologist's Impressions: Impressions Abdomen/Pelvis CT 06/02/22 04:44 IMPRESSION: No acute findings identified in the abdomen/pelvis. Large volume of stool. Chronic findings as noted above. Assessment and Plan (1) Hematemesis: Status: Acute Plan This is a 61-year-old male with pertinent history of cocaine use disorder, essential hypertension, mood disorder, diabetes mellitus, mixed hyperlipidemia, neuropathy who presents to the emergency department for evaluation of nausea and bloody emesis. #. Hematemesis with epigastric pain: Will admit patient and consult GI for further assistance. IV Protonix 80 mg x1. Resuscitated with IV crystalloids. Will keep patient NPO #. [id number] diabetes mellitus with hyperglycemia: Initiating Accu-Cheks with sliding scale insulin every 6 hours #. Essential hypertension: Hold antihypertensives in the setting of hematemesis. #. Mood disorder: Continue mood stabilizing agents once no longer NPO #. Mixed hyperlipidemia: On atorvastatin and fenofibrate #. Cocaine use disorder: Consulting CARE team and addiction team. Monitor for withdrawal #. Peripheral neuropathy: On gabapentin Med rec pending DVT prophylaxis: SCDs Diet: NPO Full code Admit as inpatient and will require two night minimum hospital stay for monitoring of H&H and hemodynamics. Specialist consult pending Time Spent With Patient Time: Total time managing care of this patient today ____ minutes. Quality Stroke Does the patient have a stroke diagnosis?: No VTE Prior VTE?: No VTE Risk Level:: Medical - moderate - high VTE Device Contraindication: N/A - Device Ordered VTE Drug Contraindication: Treatment Not Indicated
[2022-06-02 07:04] LABS: Glucose, Whole Blood 310 mg/dL (60-115)
[2022-06-02] MEDS: Insulin Lispro 100 UNIT/ML 3 ML VIAL SUBCUT ×2 (07:07→14:27)
[2022-06-02] MEDS: 0.9 % Sodium Chloride Flush 3 ML SYRINGE IVFLUSH ×2 (07:07→15:44)
--- NOTE | 2022-06-02 10:33 | MHC.EDTECH ---
Pt was given a partial bed bath due to having some throw up on chest and face. Pt tolerated activity well and was very satisfied.
--- NOTE | 2022-06-02 11:31 | PC.NURSE ---
pt A&Ox3, experiencing coffee ground emesis. In response to whether he feels safe at home pt responds no, I cannot take care of myself .
--- NOTE | 2022-06-02 12:32 | MHC.CM.PN ---
PT REPORTS HE LIVES ALONE AND HAS MEALS ON WHEELS ONLY HE SAYS THE [facility] WOULD PROVIDE MORE BUT HE REFUSES HE SAYS HE IS WHEEL CHAIR BOUND AT [facility] AND CAN STAND PIVOT TO TRANSFER HE IS NOT COVID [facility]AX HAS NO HCP, REFUSES TODAY BUT WAS INFORMED HE COULD NOT GO TO A SNF WITH OUT ONE PCP: ROMANA NAJERA IMM DELIVERED, COPY SENT TO [facility] CURRENTLY DCP TBD PT REPORTS HE NEEDS TO GO TO A SNF BECAUSE HE DOES NOT CARE FOR HIMSELF AND USES DRUGS AT HOME HE IS NOT VACCINATED AND HAS HX OF RECENT SUBSTANCE ABUSE REFERRAL BROADCASTED
--- NOTE | 2022-06-02 12:39 | MHC.EDTECH ---
pt medicated with prn zofran. resting quietly
[2022-06-02 12:57] LABS: Glucose, Whole Blood 250 mg/dL (60-115)
--- NOTE | 2022-06-02 14:30 | PC.NURSE ---
patient a&ox3, classroom monitor nsr, vitals stable, pt medicated per order, denies nausea at this time, c/o abd pain 10/04, call [place] within reach, will continue to monitor
--- NOTE | 2022-06-02 14:58 | PM.EVENT ---
Event Note Date of Service: 06/02/22 Event Note: Patient seen examined. Agree with assessment history and physical plan as outlined. Time Spent With Patient Time: Total time managing care of this patient today ____ minutes.
--- NOTE | 2022-06-02 15:09 | PHA.MEDREC ---
Pharmacy Consult ? Medication Reconciliation Pharmacy has completed the medication reconciliation.Patient is a [facility] patient with [facility].
[2022-06-02 15:28] LABS: Glucose, Whole Blood 222 mg/dL (60-115)
--- NOTE | 2022-06-02 15:53 | HO.ADDICTPRO ---
Subjective Subjective Date of Service: 06/02/22 Reason For Visit: Hematemesis Interim History: Consult placed for patient with +cocaine UDS Patient seen in room 20 of main ED. Reporting nausea and holding emesis bag. This press writer inquired if nausea was related any opiate use and patient denied this. Interview ended as patient visibly uncomfortable Review of Systems Constitutional: Reports as per HPI Mental Status Exam Mental Status Exam Affect Description: Anxious Diagnostics Vital Signs (24Hr): Vital Signs - 24 hr 06/02/22 01:34 06/02/22 01:40 06/02/22 01:40 Temperature 98.9 F 98.9 F 98.9 F Pulse Rate 102 H 95 94 Respiratory Rate 22 H 28 H 29 H Blood Pressure 194/100 H 177/94 H 177/94 H Pulse Oximetry 95 95 94 Oxygen Delivery Method Room Air Room Air Room Air 06/02/22 04:54 06/02/22 07:28 06/02/22 12:00 Temperature 98.5 F 98.4 F Pulse Rate 85 74 83 Respiratory Rate 16 16 16 Blood Pressure 174/89 H 174/84 H 186/83 H Pulse Oximetry 96 94 94 Oxygen Delivery Method Room Air Room Air Room Air 06/02/22 15:22 Temperature Pulse Rate 85 Respiratory Rate 19 Blood Pressure 138/76 Pulse Oximetry 95 Oxygen Delivery Method Room Air BMI result Body Mass Index 25.8 Labs 06/02/22 01:56 06/02/22 02:48 Labs: Laboratory Results - last 48 hr 06/02/22 06/02/22 06/02/22 01:39 01:56 01:56 WBC 8.4 RBC 5.43 Hgb 14.1 Hct 42.1 MCV 77.5 L MCH 26.0 L MCHC 33.5 RDW 14.9 Plt Count 290 D MPV 9.4 Immature Gran % (Auto) 0.5 H Neut % (Auto) 76.5 H Lymph % (Auto) 15.3 L [place] % (Auto) 6.9 Eos % (Auto) 0.2 Baso % (Auto) 0.6 Lymph # (Auto) 1.3 [place] # (Auto) 0.6 Eos # (Auto) 0.0 Baso # (Auto) 0.1 Abs Immat Gran (auto) 0.04 H Absolute Neuts (auto) 6.4 Absolute Nucleated RBC 0.000 Nucleated RBC % (auto) 0.0 Sodium Potassium Chloride Carbon Dioxide Anion Gap BUN Creatinine Estim Creat Clear Calc Estimated GFR POC Glucose 313 H Random Glucose Lactic Acid Calcium Total Bilirubin AST ALT Alkaline Phosphatase Total Protein Albumin Lipase Ethyl Alcohol COVID-19 ([place]) Negative [employer] See Note 06/02/22 06/02/22 06/02/22 02:48 03:15 06:59 WBC RBC Hgb Hct MCV MCH MCHC RDW Plt Count MPV Immature Gran % (Auto) Neut % (Auto) Lymph % (Auto) [place] % (Auto) Eos % (Auto) Baso % (Auto) Lymph # (Auto) [place] # (Auto) Eos # (Auto) Baso # (Auto) Abs Immat Gran (auto) Absolute Neuts (auto) Absolute Nucleated RBC Nucleated RBC % (auto) Sodium 137 Potassium 4.2 Chloride 97 Carbon Dioxide 25 Anion Gap 19 BUN 14 Creatinine 0.99 Estim Creat Clear Calc 80.3 Estimated GFR > 60 POC Glucose 310 H Random Glucose 343 H Lactic Acid 1.5 Calcium 10.2 D Total Bilirubin 0.8 AST 63 H ALT 62 H Alkaline Phosphatase 107 Total Protein 7.9 Albumin 4.9 Lipase 17 Ethyl Alcohol < 10 COVID-19 ([place]) [employer] 06/02/22 06/02/22 12:54 15:23 WBC RBC Hgb Hct MCV MCH MCHC RDW Plt Count MPV Immature Gran % (Auto) Neut % (Auto) Lymph % (Auto) [place] % (Auto) Eos % (Auto) Baso % (Auto) Lymph # (Auto) [place] # (Auto) Eos # (Auto) Baso # (Auto) Abs Immat Gran (auto) Absolute Neuts (auto) Absolute Nucleated RBC Nucleated RBC % (auto) Sodium Potassium Chloride Carbon Dioxide Anion Gap BUN Creatinine Estim Creat Clear Calc Estimated GFR POC Glucose 250 H 222 H Random Glucose Lactic Acid Calcium Total Bilirubin AST ALT Alkaline Phosphatase Total Protein Albumin Lipase Ethyl Alcohol COVID-19 ([place]) [employer] [facility] Radiology Impressions: ITS Impressions Abdomen/Pelvis CT 06/02/22 04:44 IMPRESSION: No acute findings identified in the abdomen/pelvis. Large volume of stool. Chronic findings as noted above. Medications Medications Current Medications Acetaminophen (Acetaminophen 325 Mg Tablet) 650 mg PO Q6H PRN PRN Reason: Pain, Mild (Pain Scale 1-3) Dextrose (Dextrose 50 % 25 Gm/50 Ml Syringe) 25 gm IVPUSH Q15M PRN; Protocol PRN Reason: per Hypoglycemia Standing Ord. Glucose (Glucose Gel 15 Gm Gel..Gram.) 15 gm PO Q15M PRN; Protocol PRN Reason: per Hypoglycemia Standing Ord. Insulin Human Lispro (Insulin Lispro 100 Unit/Ml 3 Ml Vial) 0 unit SUBCUT Q6H [facility]; Protocol Last Admin: 06/02/22 14:27 Dose: 4 unit Melatonin (Melatonin 3 Mg Tablet) 6 mg PO BEDTIME PRN PRN Reason: Insomnia Ondansetron HCl (Ondansetron Hcl 4 Mg/2 Ml Vial) 4 mg IVPUSH Q8H PRN PRN Reason: Nausea and Vomiting Last Admin: 06/02/22 12:18 Dose: 4 mg Pharmacy Consult (Consult Rx Perform Med Rec) 1 each MISCELLANE ONCE PRN PRN Reason: Consult order Sodium Chloride (0.9 % Sodium Chloride Flush 3 Ml Syringe) [address] [facility] Last Admin: 06/02/22 15:44 Dose: 3 ml Allergies Allergies Allergy/AdvReac Type Severity Reaction Status Date / Time No Known Allergies Allergy Verified 05/31/21 11:24 Assessment & Plan Assessment & Plan (1) Vomiting: Status: Acute Code(s): R11.10 - Vomiting, unspecified Assessment and Plan: will follow up tomorrow as patient unable to participate in interview due to n/v Total time managing care of this patient today __15__ minutes.
--- NOTE | 2022-06-02 15:55 | PC.NURSE ---
report given will notify transport
[2022-06-02] MEDS: Buprenorphine/Naloxone 4/1 mg FILM 1 FILM SUBLINGUAL (17:43)
[2022-06-02] MEDS: Magnesium Hydrox/Alum Hydrox 30 ML ORAL.SUSP PO (18:02)
[2022-06-02 18:49] LABS: Glucose, Whole Blood 192 mg/dL (60-115)
[2022-06-02 23:41] LABS: Glucose, Whole Blood 202 mg/dL (60-115)
[2022-06-03] MEDS: Insulin Lispro 100 UNIT/ML 3 ML VIAL SUBCUT ×3 (00:02→17:00)
[2022-06-03] MEDS: 0.9 % Sodium Chloride Flush 3 ML SYRINGE IVFLUSH ×3 (00:03→17:00)
[2022-06-03 03:41] VITALS: BP 158/54; PULSE 73; RESP 20; TEMP 36.4; O2SAT 96
[2022-06-03 06:31] LABS: Glucose, Whole Blood 177 mg/dL (60-115)
[2022-06-03 07:28] LABS: Glucose, Whole Blood 177 mg/dL (60-115)
[2022-06-03 07:43] LABS: MANUAL DIFF FLAG NO
[2022-06-03 07:48] LABS: Basophils Percent Auto 0.5 % (0-2); Eosinophils Absolute Auto 0.1 X10*3/uL (0.0-0.4); Eosinophils Percent Auto 1.1 % (0-4); Hematocrit 36.2 % (42.0-52.0); Hemoglobin 11.6 g/dl (14.0-18.0); Imm Gran Abs Auto 0.02 X10*3/uL (0.00-0.03); Imm Gran Pct Auto 0.3 % (0.0-0.4); Lymphocytes Absolute Auto 1.2 X10*3/uL (1.2-4.9); Lymphocytes Percent Auto 16.3 % (20-40); Mean Corpuscular Hemoglobin 25.7 pg (27.0-33.0); Mean Corpuscular Volume 80.3 fL (80.0-98.0); Mean Platelet Volume 9.9 fL (9.4-12.4); Monocytes Absolute Auto 0.6 X10*3/uL (0.1-1.2); Monocytes Percent Auto 8.4 % (2-11); Neutrophils Absolute Auto 5.4 x10*3/uL (2.0-8.3); Neutrophils Percent Auto 73.4 % (45-73); Platelet Count 236 X10*3/uL (160-400); Red Blood Count 4.51 X10*6/uL (4.60-5.80); Red Cell Distribution Width 15.1 % (11.0-16.0); White Blood Count 7.3 X10*3/uL (4.8-10.8)
[2022-06-03 07:51] VITALS: BP 139/74; PULSE 76; RESP 20; TEMP 37.2; O2SAT 97
[2022-06-03 08:14] LABS: Anion Gap 16 (12-20); Blood Urea Nitrogen 13 mg/dL (9-16); Carbon Dioxide 22 mmol/L (22-29); Chloride 105 mmol/L (96-108); Creatinine Clr Calc Pharmacy 98.1; Estimated Glomerular Filt Rate > 60; Glucose Random 183 mg/dL (60-115); Sodium 139 mmol/L (135-145)
[2022-06-03 08:28] LABS: Calcium 8.6 mg/dL (8.4-10.2)
[2022-06-03] MEDS: Magnesium Hydrox/Alum Hydrox 30 ML ORAL.SUSP PO ×3 (09:04→17:00)
[2022-06-03] MEDS: Fluticasone Propionate Nasal 16 GM SPRAY 1 SPRAY NOSTRIL-B (09:04)
--- NOTE | 2022-06-03 09:14 | P.CNGI_ITS ---
History of Present Illness Data of Consult Service Date: 06/03/22 Requesting physician: Duane Verduzco Primary Care Provider: Unknown Physician HPI Reason for consult: emesis 61-year-old male with history of cocaine use disorder, essential hypertension, mood disorder, diabetes mellitus, mixed hyperlipidemia, neuropathy who I am seeing for assessment for emesis. Patient had 2 d of persistent nausea with non bloody emesis, but this then became more coffee colored in appearance yesterday so he came to the ED. He also noted 1 d of sharp epigastric pain 7/10 in severity which was constant, without radiation and no relieving or exacerbating factors. He also endorses chronic constipation and not passed stool for about 4-5 days. He admits he used cocaine 4 days ago. Patient denies fever, chills, chest discomfort, palpitations, shortness of breath, changes in urinary habits. Today on review he feels much better and no longer has any nausea or vomiting and feels hungry and at his baseline. He still c/o constipation and not moved his bowels since being here. Denies nsaid use LABS: hgb close to his baseline 11-12 g/dl, the 14 g/dl is prob from dehydration Review of Systems Review of Systems: Constitutional : No Weight loss, No Fever, No Chills ENT/Mouth : No sore throat, No Rhinorrhea Eyes: No Swelling, No Redness Cardiovascular : No Chest Pain, No SOB, No Edema Respiratory : No Cough, No Sputum, No Wheezing Gastrointestinal : see HPI Genitourinary : NO Dysuria, No Urinary Frequency, No Hematuria, No Urgency Musculoskeletal : No joint pain, No Myalgias, No Joint Swelling Skin : No Skin Lesions, No rash Neuro : No Weakness, No Numbness, No Dizziness, No Headache Psych : No Anxiety/Panic, No Depression Heme/Lymph: No Bruising, No Lymphadenopathy Endocrine : No Polyuria, No Polydipsia All other systems reviewed and are negative. Yes all other systems are reviewed and are negative Constitutional: Constitutional: Reports as per HPI and Reports no additional constitutional complaints Cardiovascular: Cardiovascular: Reports no additional cardiovascular complaints Respiratory: Respiratory: Reports no additional respiratory complaints Gastrointestinal: Gastrointestinal: Reports abdominal pain, Reports coffee ground emesis, Reports nausea, Reports vomiting and Reports hematemesis PMFSH Past Medical History Medical History Acute blood loss anemia Cerebral infarction Cocaine use disorder, moderate, dependence Diabetes HTN (hypertension) MDD (major depressive disorder), recurrent episode, moderate Multifactorial gait disorder Opioid use disorder, mild, in sustained remission Family History Pertinent family history: no Fh of ulcers or stomach problems Social History Social History Household Members: None Housing: Apartment Housing Other:: I live in a farmhouse in [place] . Do you presently have visiting nurse or other home services: Yes Unable to assess alcohol history related to: Unknown Alcohol intake: current Alcohol intake frequency: holidays/special occasions only Patient Tobacco Use Status: Current everyday Tobacco user Tobacco use type: Cigarette Cigarette Packs Per Day: 2 Cigarettes Per Day: 40.0 Years Smoked: 12 e-Cigarette/Vaping Use: Never Used Second Hand Smoke Exposure: No Substance Use Type: Crack/Cocaine service: Yes Current occupational status: disabled Sexual orientation: Bisexual Meds Allergies Allergy/AdvReac Type Severity Reaction Status Date / Time No Known Allergies Allergy Verified 05/31/21 11:24 Active Medications: Current Medications Acetaminophen (Acetaminophen 325 Mg Tablet) 650 mg PO Q6H PRN PRN Reason: Pain, Mild (Pain Scale 1-3) Al Hydroxide/Mg Hydroxide (Magnesium Hydrox/Alum Hydrox 30 Ml Oral.Susp) 30 ml PO TIDWM [facility] Last Admin: 06/03/22 09:04 Dose: 30 ml Atorvastatin Calcium (Atorvastatin Calcium 40 Mg Tablet) 40 mg PO DAILY [facility] Last Admin: 06/03/22 08:35 Dose: Not Given Buprenorphine/Naloxone (Buprenorphine/Naloxone 4/1 Mg Film) 1 film SUBLINGUAL QID [facility] Last Admin: 06/02/22 20:50 Dose: Not Given Dextrose (Dextrose 50 % 25 Gm/50 Ml Syringe) 25 gm IVPUSH Q15M PRN; Protocol PRN Reason: per Hypoglycemia Standing Ord. Docusate Sodium (Docusate Sodium 100 Mg Capsule) 200 mg PO BEDTIME [facility] Last Admin: 06/02/22 20:50 Dose: Not Given Duloxetine HCl (Duloxetine Hcl 60 Mg Capsule.Dr) 60 mg PO DAILY [facility] Last Admin: 06/03/22 08:36 Dose: Not Given Fenofibrate (Fenofibrate 54 Mg Tablet) 54 mg PO DAILY [facility] Last Admin: 06/03/22 08:36 Dose: Not Given Fluticasone Propionate (Fluticasone Propionate Nasal 16 Gm [place]) 1 spray NOSTRIL-B DAILY [facility] Last Admin: 06/03/22 09:04 Dose: 1 spray Gabapentin (Gabapentin 400 Mg Capsule) 800 mg PO TID [facility] Last Admin: 06/03/22 08:36 Dose: Not Given Glucose (Glucose Gel 15 Gm Gel..Gram.) 15 gm PO Q15M PRN; Protocol PRN Reason: per Hypoglycemia Standing Ord. Hydroxyzine HCl (Hydroxyzine Hcl 25 Mg Tablet) 25 mg PO Q6H PRN PRN Reason: Anxiety Insulin Human Lispro (Insulin Lispro 100 Unit/Ml 3 Ml Vial) 0 unit SUBCUT Q6H [facility]; Protocol Last Admin: 06/03/22 06:29 Dose: Not Given Lamotrigine (Lamotrigine 25 Mg Tablet) 75 mg PO BEDTIME [facility] Last Admin: 06/02/22 20:51 Dose: Not Given Lisinopril (Lisinopril 5 Mg Tablet) 5 mg PO DAILY [facility]; Protocol Last Admin: 06/03/22 08:36 Dose: Not Given Loratadine (Loratadine 10 Mg Tablet) 10 mg PO DAILY [facility] Last Admin: 06/03/22 08:36 Dose: Not Given Magnesium Oxide (Magnesium Oxide 400 Mg Tablet) 400 mg PO DAILY [facility] Last Admin: 06/03/22 08:36 Dose: Not Given Melatonin (Melatonin 3 Mg Tablet) 6 mg PO BEDTIME PRN PRN Reason: Insomnia Metoprolol Succinate (Metoprolol Succinate Er 25 Mg Tab.Er.24h) 25 mg PO DAILY [facility]; Protocol Last Admin: 06/03/22 08:36 Dose: Not Given Omeprazole (Omeprazole 20 Mg Capsule.Dr) 20 mg PO DAILY@0630 [facility] Last Admin: 06/03/22 08:36 Dose: Not Given Ondansetron HCl (Ondansetron Hcl 4 Mg/2 Ml Vial) 4 mg IVPUSH Q8H PRN PRN Reason: Nausea and Vomiting Last Admin: 06/02/22 12:18 Dose: 4 mg Pharmacy Consult (Consult Rx Perform Med Rec) 1 each MISCELLANE ONCE PRN PRN Reason: Consult order Quetiapine Fumarate (Quetiapine Fumarate 25 Mg Tablet) 25 mg PO DAILY [facility] Last Admin: 06/03/22 08:36 Dose: Not Given Quetiapine Fumarate (Quetiapine Fumarate 300 Mg Tablet) 300 mg PO BEDTIME [facility] Last Admin: 06/02/22 20:51 Dose: Not Given Sodium Chloride (0.9 % Sodium Chloride Flush 3 Ml Syringe) 3 ml IVFLUSH QSHIFT [facility] Last Admin: 06/03/22 09:05 Dose: 3 ml Vitamin D (Cholecalciferol (Vitamin D3) 25 Mcg Tablet) 50 mcg PO DAILY [facility] Last Admin: 06/03/22 08:36 Dose: Not Given Home Medications Medication Instructions Recorded Confirmed Last Taken Type buprenorphine 4 mg-naloxone 1 mg 1 film sublingual QID 10/29/21 06/02/22 Unknown History sublingual film (Suboxone) acetaminophen 325 mg tablet 2 tab PO TID PRN Pain 01/01/22 06/02/22 Unknown History aluminum-mag hydroxide-simethicone 30 ml PO TIDWM 01/01/22 06/02/22 Unknown Hist ory 200 mg-200 mg-20 mg/5 mL oral susp (Sury-Mox Antacid-[place]) atorvastatin 40 mg tablet 40 mg PO DAILY 01/01/22 06/02/22 Unknown History cholecalciferol (vitamin D3) 50 50 mcg PO DAILY 01/01/22 06/02/22 Unknown History mcg (2,000 unit) tablet duloxetine 60 mg capsule,delayed 60 mg PO DAILY 01/01/22 06/02/22 Unknown History release fenofibrate 54 mg tablet 54 mg PO DAILY 01/01/22 06/02/22 Unknown History fluticasone propionate 50 1 spray intranasal DAILY 01/01/22 06/02/22 Unknown History mcg/actuation nasal spray,suspension lamotrigine 25 mg tablet 75 mg PO BEDTIME 01/01/22 06/02/22 Unknown History loratadine 10 mg tablet 10 mg PO DAILY 01/01/22 06/02/22 Unknown History magnesium oxide 400 mg (241.3 mg 400 mg PO DAILY 01/01/22 06/02/22 Unknown History magnesium) tablet metformin 500 mg tablet 2 tab PO BID 01/01/22 06/02/22 Unknown History metoprolol succinate 25 mg 25 mg PO DAILY 01/01/22 06/02/22 Unknown History tablet,extended release 24 hr pantoprazole 40 mg tablet,delayed 40 mg PO DAILY 01/01/22 06/02/22 Unknown History release hydroxyzine HCl 25 mg tablet 1 tab PO Q6H PRN Anxiety 06/02/22 06/02/22 Unknown History Physical Exam Vital Signs: Vital Signs: Last Vital Signs Temp 98.9 F 06/03/22 07:51 Pulse 76 06/03/22 07:51 Resp 20 06/03/22 07:51 BP 139/74 06/03/22 07:51 Pulse Ox 97 06/03/22 07:51 O2 Del Method 06/03/22 07:51 BMI result Body Mass Index 25.8 EXAM: GENERAL: The patient is disheveled, relaxed VITAL SIGNS:see workflow HEENT: Nonicteric sclerae, PERRLA, EOMI. Oropharynx clear. Moist mucous membranes. Conjunctivae appear well perfused. No thyroid mass. CHEST: Chest wall is nontender. HEART: Regular rate and rhythm without murmurs. LUNGS: Clear to auscultation bilaterally. ABDOMEN: Soft, positive bowel sounds, nontender, no organomegaly.no flank tenderness SKIN: No rash, no excessive bruising, petechiae, or purpura. NEUROLOGIC: Cranial nerves II-XII intact without motor/sensory deficit. psych-nml affect Results Labs 06/03/22 07:06 06/03/22 07:06 Labs: Short CBC 06/03/22 Range/Units 07:06 WBC 7.3 (4.8-10.8) X10*3/uL Hgb 11.6 L (14.0-18.0) g/dl Hct 36.2 L (42.0-52.0) % Plt Count 236 (160-400) X10*3/uL BMP 06/03/22 07:06 Sodium 139 Potassium 4.0 Chloride 105 Carbon Dioxide 22 BUN 13 Creatinine 0.81 Calcium 8.6 D Assessment and Plan (1) Vomiting: Qualifiers: Vomiting type: hematemesis Status: Acute * will follow up tomorrow as patient unable to participate in interview due to n/v (2) Coffee ground emesis: Status: Acute Plan 1/ Nausea and vomiting, probably with a miguelina pacheco tear now resolved, most likely sx are due to cocaine use and constipation. He is hungry and feels back to baseline. PLAN: 1/ Advance diet as tolerated 2/ cont with low dose PPI and carafate 3/ if worsens then can consider EGD, but rright now he seems to be clinically improving 4/ trend HGB as doing 5/ laxative regimen can use miralax BID and dulcolax with enemas prn Time Spent With Patient Time: Total time managing care of this patient today ____ minutes. Procedures Date of Service Date of Service: 06/03/22
[2022-06-03] MEDS: Buprenorphine/Naloxone 4/1 mg FILM 1 FILM SUBLINGUAL ×4 (09:55→19:43)
[2022-06-03 11:20] VITALS: PULSE 79; RESP 16; TEMP 37.3; O2SAT 99
[2022-06-03 11:23] LABS: Glucose, Whole Blood 182 mg/dL (60-115)
--- NOTE | 2022-06-03 14:25 | HO.PM.IMPN ---
Subjective Subjective Date of Service: 06/03/22 Interval History: No acute issues overnight feels markedly improved no vomiting since admission Review of Systems Denies chest pain Denies shortness of breath Denies nausea vomiting diarrhea Denies fever chills Physical Exam Vital Signs: Vital Signs: Last Vital Signs Temp 99.2 F 06/03/22 11:20 Pulse 79 06/03/22 11:20 Resp 16 06/03/22 11:20 BP 139/74 06/03/22 07:51 Pulse Ox 99 06/03/22 11:20 O2 Del Method 06/03/22 11:20 BMI result Body Mass Index 25.8 Const: Other: No acute distress Resp: Other: Clear to auscultation bilaterally no rales rhonchi wheezes Cardio: Other: No S4; positive S1-S2; no S3 murmurs rubs or gallops GI: Other: Soft nontender nondistended normoactive bowel sounds Extrem: Other: No edema bilaterally Objective Data Active Medications Acetaminophen (Acetaminophen 325 Mg Tablet) 650 mg PO Q6H PRN PRN Reason: Pain, Mild (Pain Scale 1-3) Al Hydroxide/Mg Hydroxide (Magnesium Hydrox/Alum Hydrox 30 Ml Oral.Susp) 30 ml PO TIDWM [facility] Last Admin: 06/03/22 11:42 Dose: 30 ml Documented By: GONZALSE Atorvastatin Calcium (Atorvastatin Calcium 40 Mg Tablet) 40 mg PO DAILY [facility] Last Admin: 06/03/22 08:35 Dose: Not Given Documented By: GONZALES Non-Admin Reason: NPO Buprenorphine/Naloxone (Buprenorphine/Naloxone 4/1 Mg Film) 1 film SUBLINGUAL QID [facility] Last Admin: 06/03/22 14:00 Dose: 1 film Documented By: GONZALES Dextrose (Dextrose 50 % 25 Gm/50 Ml Syringe) 25 gm IVPUSH Q15M PRN; Protocol PRN Reason: per Hypoglycemia Standing Ord. Docusate Sodium (Docusate Sodium 100 Mg Capsule) 200 mg PO BEDTIME [facility] Last Admin: 06/02/22 20:50 Dose: Not Given Documented By: EDDIE Non-Admin Reason: strict npo per md Duloxetine HCl (Duloxetine Hcl 60 Mg Capsule.Dr) 60 mg PO DAILY [facility] Last Admin: 06/03/22 08:36 Dose: Not Given Documented By: GONZALES Non-Admin Reason: NPO Fenofibrate (Fenofibrate 54 Mg Tablet) 54 mg PO DAILY [facility] Last Admin: 06/03/22 08:36 Dose: Not Given Documented By: GONZALES Non-Admin Reason: NPO Fluticasone Propionate (Fluticasone Propionate Nasal 16 Gm [place]) 1 spray NOSTRIL-B DAILY [facility] Last Admin: 06/03/22 09:04 Dose: 1 spray Documented By: GONZALES Gabapentin (Gabapentin 400 Mg Capsule) 800 mg PO TID [facility] Last Admin: 06/03/22 08:36 Dose: Not Given Documented By: GONZALES Non-Admin Reason: NPO Glucose (Glucose Gel 15 Gm Gel..Gram.) 15 gm PO Q15M PRN; Protocol PRN Reason: per Hypoglycemia Standing Ord. Hydroxyzine HCl (Hydroxyzine Hcl 25 Mg Tablet) 25 mg PO Q6H PRN PRN Reason: Anxiety Insulin Human Lispro (Insulin Lispro 100 Unit/Ml 3 Ml Vial) 0 unit SUBCUT Q6H [facility]; Protocol Last Admin: 06/03/22 11:42 Dose: 2 unit Documented By: GONZALES Lamotrigine (Lamotrigine 25 Mg Tablet) 75 mg PO BEDTIME [facility] Last Admin: 06/02/22 20:51 Dose: Not Given Documented By: EDDIE Non-Admin Reason: strict npo per Lisinopril (Lisinopril 5 Mg Tablet) 5 mg PO DAILY [facility]; Protocol Last Admin: 06/03/22 08:36 Dose: Not Given Documented By: GONZALES Non-Admin Reason: NPO Loratadine (Loratadine 10 Mg Tablet) 10 mg PO DAILY [facility] Last Admin: 06/03/22 08:36 Dose: Not Given Documented By: GONZALES Non-Admin Reason: NPO Magnesium Oxide (Magnesium Oxide 400 Mg Tablet) 400 mg PO DAILY [facility] Last Admin: 06/03/22 08:36 Dose: Not Given Documented By: GONZALES Non-Admin Reason: NPO Melatonin (Melatonin 3 Mg Tablet) 6 mg PO BEDTIME PRN PRN Reason: Insomnia Metoprolol Succinate (Metoprolol Succinate Er 25 Mg Tab.Er.24h) 25 mg PO DAILY [facility]; Protocol Last Admin: 06/03/22 08:36 Dose: Not Given Documented By: GONZALES Non-Admin Reason: NPO Omeprazole (Omeprazole 20 Mg Capsule.Dr) 20 mg PO DAILY@0630 [facility] Last Admin: 06/03/22 08:36 Dose: Not Given Documented By: GONZALES Non-Admin Reason: NPO Ondansetron HCl (Ondansetron Hcl 4 Mg/2 Ml Vial) 4 mg IVPUSH Q8H PRN PRN Reason: Nausea and Vomiting Last Admin: 06/02/22 12:18 Dose: 4 mg Documented By: EMILI Pharmacy Consult (Consult Rx Perform Med Rec) 1 each MISCELLANE ONCE PRN PRN Reason: Consult order Quetiapine Fumarate (Quetiapine Fumarate 25 Mg Tablet) 25 mg PO DAILY [facility] Last Admin: 06/03/22 08:36 Dose: Not Given Documented By: GONZALES Non-Admin Reason: NPO Quetiapine Fumarate (Quetiapine Fumarate 300 Mg Tablet) 300 mg PO BEDTIME [facility] Last Admin: 06/02/22 20:51 Dose: Not Given Documented By: EDDIE Non-Admin Reason: strict npo per Sodium Chloride (0.9 % Sodium Chloride Flush 3 Ml Syringe) 3 ml IVFLUSH QSHIFT [facility] Last Admin: 06/03/22 09:05 Dose: 3 ml Documented By: GONZALES Vitamin D (Cholecalciferol (Vitamin D3) 25 Mcg Tablet) 50 mcg PO DAILY [facility] Last Admin: 06/03/22 08:36 Dose: Not Given Documented By: GONZALES Non-Admin Reason: NPO Labs 06/03/22 07:06 06/03/22 07:06 Labs: Laboratory Results - last 24 hr 06/02/22 06/02/22 06/02/22 15:23 18:45 23:37 MCV MCH MCHC RDW Plt Count MPV Immature Gran % (Auto) Neut % (Auto) Lymph % (Auto) [place] % (Auto) Eos % (Auto) Baso % (Auto) Lymph # (Auto) [place] # (Auto) Eos # (Auto) Baso # (Auto) Abs Immat Gran (auto) Absolute Neuts (auto) Absolute Nucleated RBC Nucleated RBC % (auto) Anion Gap Estim Creat Clear Calc Estimated GFR POC Glucose 222 H 192 H 202 H Random Glucose Calcium 06/03/22 06/03/22 06/03/22 06:27 07:06 07:06 MCV 80.3 MCH 25.7 L MCHC 32.0 RDW 15.1 Plt Count 236 MPV 9.9 Immature Gran % (Auto) 0.3 Neut % (Auto) 73.4 H Lymph % (Auto) 16.3 L [place] % (Auto) 8.4 Eos % (Auto) 1.1 Baso % (Auto) 0.5 Lymph # (Auto) 1.2 [place] # (Auto) 0.6 Eos # (Auto) 0.1 Baso # (Auto) 0.0 Abs Immat Gran (auto) 0.02 Absolute Neuts (auto) 5.4 Absolute Nucleated RBC 0.000 Nucleated RBC % (auto) 0.0 Anion Gap 16 Estim Creat Clear Calc 98.1 Estimated GFR > 60 POC Glucose 177 H Random Glucose 183 H Calcium 8.6 D 06/03/22 06/03/22 07:22 11:19 MCV MCH MCHC RDW Plt Count MPV Immature Gran % (Auto) Neut % (Auto) Lymph % (Auto) [place] % (Auto) Eos % (Auto) Baso % (Auto) Lymph # (Auto) [place] # (Auto) Eos # (Auto) Baso # (Auto) Abs Immat Gran (auto) Absolute Neuts (auto) Absolute Nucleated RBC Nucleated RBC % (auto) Anion Gap Estim Creat Clear Calc Estimated GFR POC Glucose 177 H 182 H Random Glucose Calcium Assessment and Plan (1) Hematemesis: Status: Acute (2) Diabetes: Status: Acute (3) HTN (hypertension): Status: Acute Plan This is a 61-year-old male with pertinent history of cocaine use disorder, essential hypertension, mood disorder, diabetes mellitus, mixed hyperlipidemia, neuropathy who presents to the emergency department for evaluation of nausea and bloody emesis; resolved 1.Hematemesis with epigastric pain -likely Na[place]-Cifuentes tear; no further vomiting since admission -continue current medical regimen -advanced diet -as tolerates diet today will discharge home in a.m. 2.Wwd-qtnycnl-eocqbjuui diabetes mellitus -lispro correctional scale -refuses diabetic diet 3.Essential hypertension -acceptable control off therapies -can restarted discharge 4Cocaine use disorder -services offered Boots Full code Requires ongoing hospitalization to document tolerance of diet in the absence of vomiting Time Spent With Patient Time: Total time managing care of this patient today ____ minutes. Quality Stroke Does the patient have a stroke diagnosis?: No VTE Prior VTE?: No VTE Risk Level:: Medical - moderate - high VTE Device Contraindication: N/A - Device Ordered VTE Drug Contraindication: Treatment Not Indicated
[2022-06-03 15:02] LABS: Amphetamine Screen Urine Not Detected (Not Detect); Barbiturates, Urine Not Detected (Not Detect); Benzodiazepines Screen Urine Not Detected (Not Detect); Cannabinoid Screen Urine Not Detected (Not Detect); Cocaine Screen Urine POSITIVE (Not Detect); Fentanyl, urine Not Detected (Not Detect); Opiate Screen Urine Not Detected (Not Detect); Phencyclidine Screen Urine Not Detected (Not Detect)
--- NOTE | 2022-06-03 15:48 | P.PNADD_ITS ---
Subjective Subjective Date of Service: 06/03/22 Reason For Visit: Hematemesis Interim History: Patient seen in follow up to discussed cocaine use. Patient awake, alert, and engaged in interview. He reports he uses cocaine for about 2 days every month, I get my check, and then it's off to the races . He states that he will easily spend $1,000 smoking crack cocaine every month. Patient denied any interest in recovery resources. Attempted to engaged in risk reduction discussion, however patient interrupted this underwriter and stated, all I really want is chocolate milk and ice cream, can you get those for me . Informed RN of patient's request. Review of Systems Constitutional: Reports as per HPI and Reports no additional constitutional complaints Mental Status Exam Mental Status Exam Patient Appearance: Appropriate Level of Consciousness: Awake and Alert Patient Behavior: Talkative Speech Pattern: Slurred (chronic, but understandable ) Thought Process: Intact Judgement: Fair Diagnostics Vital Signs (24Hr): Vital Signs - 24 hr 06/02/22 17:18 06/02/22 23:47 06/03/22 03:41 Temperature 98.4 F 98.6 F 97.6 F Pulse Rate 89 77 73 Respiratory Rate 19 18 20 Blood Pressure 148/84 H 114/70 158/54 H Pulse Oximetry 96 96 96 Oxygen Delivery Method Room Air Room Air Room Air 06/03/22 07:51 06/03/22 11:20 Temperature 98.9 F 99.2 F Pulse Rate 76 79 Respiratory Rate 20 16 Blood Pressure 139/74 Pulse Oximetry 97 99 Oxygen Delivery Method Room Air Room Air BMI result Body Mass Index 25.8 Labs 06/03/22 07:06 06/03/22 07:06 Labs: Laboratory Results - last 48 hr 06/02/22 06/02/22 06/02/22 01:39 01:56 01:56 WBC 8.4 RBC 5.43 Hgb 14.1 Hct 42.1 MCV 77.5 L MCH 26.0 L MCHC 33.5 RDW 14.9 Plt Count 290 D MPV 9.4 Immature Gran % (Auto) 0.5 H Neut % (Auto) 76.5 H Lymph % (Auto) 15.3 L [place] % (Auto) 6.9 Eos % (Auto) 0.2 Baso % (Auto) 0.6 Lymph # (Auto) 1.3 [place] # (Auto) 0.6 Eos # (Auto) 0.0 Baso # (Auto) 0.1 Abs Immat Gran (auto) 0.04 H Absolute Neuts (auto) 6.4 Absolute Nucleated RBC 0.000 Nucleated RBC % (auto) 0.0 Sodium Potassium Chloride Carbon Dioxide Anion Gap BUN Creatinine Estim Creat Clear Calc Estimated GFR POC Glucose 313 H Random Glucose Lactic Acid Calcium Total Bilirubin AST ALT Alkaline Phosphatase Total Protein Albumin Lipase Urine Opiates Screen Urine Fentanyl Screen Ur Barbiturates Screen Ur Phencyclidine Scrn Ur Amphetamines Screen U Benzodiazepines Scrn Urine Cocaine Screen U Marijuana (THC) Screen Ethyl Alcohol COVID-19 ([facility]) Negative COVID-19 Clin Com See Note 06/02/22 06/02/22 06/02/22 02:48 03:15 06:59 WBC RBC Hgb Hct MCV MCH MCHC RDW Plt Count MPV Immature Gran % (Auto) Neut % (Auto) Lymph % (Auto) [place] % (Auto) Eos % (Auto) Baso % (Auto) Lymph # (Auto) [place] # (Auto) Eos # (Auto) Baso # (Auto) Abs Immat Gran (auto) Absolute Neuts (auto) Absolute Nucleated RBC Nucleated RBC % (auto) Sodium 137 Potassium 4.2 Chloride 97 Carbon Dioxide 25 Anion Gap 19 BUN 14 Creatinine 0.99 Estim Creat Clear Calc 80.3 Estimated GFR > 60 POC Glucose 310 H Random Glucose 343 H Lactic Acid 1.5 Calcium 10.2 D Total Bilirubin 0.8 AST 63 H ALT 62 H Alkaline Phosphatase 107 Total Protein 7.9 Albumin 4.9 Lipase 17 Urine Opiates Screen Urine Fentanyl Screen Ur Barbiturates Screen Ur Phencyclidine Scrn Ur Amphetamines Screen U Benzodiazepines Scrn Urine Cocaine Screen U Marijuana (THC) Screen Ethyl Alcohol < 10 COVID-19 ([facility]) COVID-19 Clin Com 06/02/22 06/02/22 06/02/22 12:54 15:23 18:45 WBC RBC Hgb Hct MCV MCH MCHC RDW Plt Count MPV Immature Gran % (Auto) Neut % (Auto) Lymph % (Auto) [place] % (Auto) Eos % (Auto) Baso % (Auto) Lymph # (Auto) [place] # (Auto) Eos # (Auto) Baso # (Auto) Abs Immat Gran (auto) Absolute Neuts (auto) Absolute Nucleated RBC Nucleated RBC % (auto) Sodium Potassium Chloride Carbon Dioxide Anion Gap BUN Creatinine Estim Creat Clear Calc Estimated GFR POC Glucose 250 H 222 H 192 H Random Glucose Lactic Acid Calcium Total Bilirubin AST ALT Alkaline Phosphatase Total Protein Albumin Lipase Urine Opiates Screen Urine Fentanyl Screen Ur Barbiturates Screen Ur Phencyclidine Scrn Ur Amphetamines Screen U Benzodiazepines Scrn Urine Cocaine Screen U Marijuana (THC) Screen Ethyl Alcohol COVID-19 ([facility]) COVID-19 [facility] Com 06/02/22 06/03/22 06/03/22 23:37 06:27 07:06 WBC 7.3 RBC 4.51 L Hgb 11.6 L Hct 36.2 L MCV 80.3 MCH 25.7 L MCHC 32.0 RDW 15.1 Plt Count 236 MPV 9.9 Immature Gran % (Auto) 0.3 Neut % (Auto) 73.4 H Lymph % (Auto) 16.3 L [place] % (Auto) 8.4 Eos % (Auto) 1.1 Baso % (Auto) 0.5 Lymph # (Auto) 1.2 [place] # (Auto) 0.6 Eos # (Auto) 0.1 Baso # (Auto) 0.0 Abs Immat Gran (auto) 0.02 Absolute Neuts (auto) 5.4 Absolute Nucleated RBC 0.000 Nucleated RBC % (auto) 0.0 Sodium Potassium Chloride Carbon Dioxide Anion Gap BUN Creatinine Estim Creat Clear Calc Estimated GFR POC Glucose 202 H 177 H Random Glucose Lactic Acid Calcium Total Bilirubin AST ALT Alkaline Phosphatase Total Protein Albumin Lipase Urine Opiates Screen Urine Fentanyl Screen Ur Barbiturates Screen Ur Phencyclidine Scrn Ur Amphetamines Screen U Benzodiazepines Scrn Urine Cocaine Screen U Marijuana (THC) Screen Ethyl Alcohol COVID-19 ([facility]) COVID-19 [facility] Com 06/03/22 06/03/22 06/03/22 07:06 07:22 11:19 WBC RBC Hgb Hct MCV MCH MCHC RDW Plt Count MPV Immature Gran % (Auto) Neut % (Auto) Lymph % (Auto) [place] % (Auto) Eos % (Auto) Baso % (Auto) Lymph # (Auto) [place] # (Auto) Eos # (Auto) Baso # (Auto) Abs Immat Gran (auto) Absolute Neuts (auto) Absolute Nucleated RBC Nucleated RBC % (auto) Sodium 139 Potassium 4.0 Chloride 105 Carbon Dioxide 22 Anion Gap 16 BUN 13 Creatinine 0.81 Estim Creat Clear Calc 98.1 Estimated GFR > 60 POC Glucose 177 H 182 H Random Glucose 183 H Lactic Acid Calcium 8.6 D Total Bilirubin AST ALT Alkaline Phosphatase Total Protein Albumin Lipase Urine Opiates Screen Urine Fentanyl Screen Ur Barbiturates Screen Ur Phencyclidine Scrn Ur Amphetamines Screen U Benzodiazepines Scrn Urine Cocaine Screen U Marijuana (THC) Screen Ethyl Alcohol COVID-19 ([facility]) COVID-19 Clin Com 06/03/22 14:20 WBC RBC Hgb Hct MCV MCH MCHC RDW Plt Count MPV Immature Gran % (Auto) Neut % (Auto) Lymph % (Auto) [place] % (Auto) Eos % (Auto) Baso % (Auto) Lymph # (Auto) [place] # (Auto) Eos # (Auto) Baso # (Auto) Abs Immat Gran (auto) Absolute Neuts (auto) Absolute Nucleated RBC Nucleated RBC % (auto) Sodium Potassium Chloride Carbon Dioxide Anion Gap BUN Creatinine Estim Creat Clear Calc Estimated GFR POC Glucose Random Glucose Lactic Acid Calcium Total Bilirubin AST ALT Alkaline Phosphatase Total Protein Albumin Lipase Urine Opiates Screen Not Detected Urine Fentanyl Screen Not Detected Ur Barbiturates Screen Not Detected Ur Phencyclidine Scrn Not Detected Ur Amphetamines Screen Not Detected U Benzodiazepines Scrn Not Detected Urine Cocaine Screen POSITIVE H U Marijuana (THC) Screen Not Detected Ethyl Alcohol COVID-19 ([facility]) COVID-19 Clin Com Imaging Radiology Impressions: ITS Impressions Abdomen/Pelvis CT 06/02/22 04:44 IMPRESSION: No acute findings identified in the abdomen/pelvis. Large volume of stool. Chronic findings as noted above. Medications Medications Current Medications Acetaminophen (Acetaminophen 325 Mg Tablet) 650 mg PO Q6H PRN PRN Reason: Pain, Mild (Pain Scale 1-3) Al Hydroxide/Mg Hydroxide (Magnesium Hydrox/Alum Hydrox 30 Ml Oral.Susp) 30 ml PO TIDWM [facility] Last Admin: 06/03/22 11:42 Dose: 30 ml Atorvastatin Calcium (Atorvastatin Calcium 40 Mg Tablet) 40 mg PO DAILY [facility] Last Admin: 06/03/22 08:35 Dose: Not Given Buprenorphine/Naloxone (Buprenorphine/Naloxone 4/1 Mg Film) 1 film SUBLINGUAL QID [facility] Last Admin: 06/03/22 14:00 Dose: 1 film Dextrose (Dextrose 50 % 25 Gm/50 Ml Syringe) 25 gm IVPUSH Q15M PRN; Protocol PRN Reason: per Hypoglycemia Standing Ord. Docusate Sodium (Docusate Sodium 100 Mg Capsule) 200 mg PO BEDTIME [facility] Last Admin: 06/02/22 20:50 Dose: Not Given Duloxetine HCl (Duloxetine Hcl 60 Mg Capsule.) 60 mg PO DAILY [facility] Last Admin: 06/03/22 08:36 Dose: Not Given Fenofibrate (Fenofibrate 54 Mg Tablet) 54 mg PO DAILY [facility] Last Admin: 06/03/22 08:36 Dose: Not Given Fluticasone Propionate (Fluticasone Propionate Nasal 16 Gm [place]) 1 spray NOSTRIL-B DAILY [facility] Last Admin: 06/03/22 09:04 Dose: 1 spray Gabapentin (Gabapentin 400 Mg Capsule) 800 mg PO TID [facility] Last Admin: 06/03/22 08:36 Dose: Not Given Glucose (Glucose Gel 15 Gm Gel..Gram.) 15 gm PO Q15M PRN; Protocol PRN Reason: per Hypoglycemia Standing Ord. Hydroxyzine HCl (Hydroxyzine Hcl 25 Mg Tablet) 25 mg PO Q6H PRN PRN Reason: Anxiety Insulin Human Lispro (Insulin Lispro 100 Unit/Ml 3 Ml Vial) 0 unit SUBCUT Q6H [facility]; Protocol Last Admin: 06/03/22 11:42 Dose: 2 unit Lamotrigine (Lamotrigine 25 Mg Tablet) 75 mg PO BEDTIME [facility] Last Admin: 06/02/22 20:51 Dose: Not Given Lisinopril (Lisinopril 5 Mg Tablet) 5 mg PO DAILY [facility]; Protocol Last Admin: 06/03/22 08:36 Dose: Not Given Loratadine (Loratadine 10 Mg Tablet) 10 mg PO DAILY [facility] Last Admin: 06/03/22 08:36 Dose: Not Given Magnesium Oxide (Magnesium Oxide 400 Mg Tablet) 400 mg PO DAILY [facility] Last Admin: 06/03/22 08:36 Dose: Not Given Melatonin (Melatonin 3 Mg Tablet) 6 mg PO BEDTIME PRN PRN Reason: Insomnia Metoprolol Succinate (Metoprolol Succinate Er 25 Mg Tab.Er.24h) 25 mg PO DAILY [facility]; Protocol Last Admin: 06/03/22 08:36 Dose: Not Given Omeprazole (Omeprazole 20 Mg Capsule.) 20 mg PO DAILY@0630 [facility] Last Admin: 06/03/22 08:36 Dose: Not Given Ondansetron HCl (Ondansetron Hcl 4 Mg/2 Ml Vial) 4 mg IVPUSH Q8H PRN PRN Reason: Nausea and Vomiting Last Admin: 06/02/22 12:18 Dose: 4 mg Pharmacy Consult (Consult Rx Perform Med Rec) 1 each MISCELLANE ONCE PRN PRN Reason: Consult order Quetiapine Fumarate (Quetiapine Fumarate 25 Mg Tablet) 25 mg PO DAILY [facility] Last Admin: 06/03/22 08:36 Dose: Not Given Quetiapine Fumarate (Quetiapine Fumarate 300 Mg Tablet) 300 mg PO BEDTIME [facility] Last Admin: 06/02/22 20:51 Dose: Not Given Sodium Chloride (0.9 % Sodium Chloride Flush 3 Ml Syringe) 3 ml IVFLUSH QSHIFT [facility] Last Admin: 06/03/22 09:05 Dose: 3 ml Vitamin D (Cholecalciferol (Vitamin D3) 25 Mcg Tablet) 50 mcg PO DAILY [facility] Last Admin: 06/03/22 08:36 Dose: Not Given Allergies Allergies Allergy/AdvReac Type Severity Reaction Status Date / Time No Known Allergies Allergy Verified 05/31/21 11:24 Assessment & Plan Assessment & Plan (1) Cocaine use disorder, moderate, dependence: Status: Acute Code(s): F14.20 - Cocaine dependence, uncomplicated Assessment and Plan: * narcan at discharge * no follow up indicated at this time Total time managing care of this patient today _15___ minutes.
[2022-06-03 15:56] LABS: Glucose, Whole Blood 255 mg/dL (60-115)
[2022-06-03 16:00] VITALS: BP 113/55; PULSE 66; RESP 19; TEMP 36.9; O2SAT 95
[2022-06-03] MEDS: Gabapentin 400 MG CAPSULE 800 MG PO (19:40)
[2022-06-03] MEDS: Acetaminophen 325 MG TABLET 650 MG PO (19:40)
[2022-06-03] MEDS: Melatonin 3 MG TABLET 6 MG PO (19:41)
[2022-06-03] MEDS: QUEtiapine Fumarate 300 MG TABLET PO (19:41)
[2022-06-03] MEDS: Docusate Sodium 100 MG CAPSULE 200 MG PO (19:41)
[2022-06-03] MEDS: lamoTRIgine 25 MG TABLET 75 MG PO (19:42)
[2022-06-03 19:52] LABS: Glucose, Whole Blood 281 mg/dL (60-115)
[2022-06-03 19:55] VITALS: BP 165/79; PULSE 67; RESP 19; TEMP 36.9; O2SAT 95
[2022-06-04] VITALS: BP 135/67; PULSE 91; RESP 16; TEMP 37.1; O2SAT 94
[2022-06-04 04:00] VITALS: BP 144/65; PULSE 80; RESP 15; TEMP 36.9; O2SAT 94
[2022-06-04] MEDS: 0.9 % Sodium Chloride Flush 3 ML SYRINGE IVFLUSH ×2 (04:00→08:45)
[2022-06-04 07:17] VITALS: BP 130/67; PULSE 85; RESP 17; TEMP 36.7; O2SAT 93
[2022-06-04 07:24] LABS: Glucose, Whole Blood 336 mg/dL (60-115)
[2022-06-04] MEDS: QUEtiapine Fumarate 25 MG TABLET PO (08:42)
[2022-06-04] MEDS: lisinopriL 5 MG TABLET PO (08:42)
[2022-06-04] MEDS: Gabapentin 400 MG CAPSULE 800 MG PO (08:42)
[2022-06-04] MEDS: Omeprazole 20 MG CAPSULE.DR PO (08:42)
[2022-06-04] MEDS: Cholecalciferol (Vitamin D3) 25 MCG TABLET 50 MCG PO (08:42)
[2022-06-04] MEDS: DULoxetine HCl 60 MG CAPSULE.DR PO (08:42)
[2022-06-04] MEDS: Fenofibrate 54 MG TABLET PO (08:42)
[2022-06-04] MEDS: Loratadine 10 MG TABLET PO (08:43)
[2022-06-04] MEDS: Metoprolol Succinate ER 25 MG TAB.ER.24H PO (08:43)
[2022-06-04] MEDS: Atorvastatin Calcium 40 MG TABLET PO (08:43)
[2022-06-04] MEDS: Magnesium Oxide 400 MG TABLET PO (08:44)
[2022-06-04] MEDS: Magnesium Hydrox/Alum Hydrox 30 ML ORAL.SUSP PO ×2 (08:45→12:54)
[2022-06-04] MEDS: Insulin Lispro 100 UNIT/ML 3 ML VIAL SUBCUT ×2 (08:46→12:54)
[2022-06-04] MEDS: Buprenorphine/Naloxone 4/1 mg FILM 1 FILM SUBLINGUAL ×2 (08:48→12:54)
[2022-06-04 11:21] LABS: Glucose, Whole Blood 338 mg/dL (60-115)
[2022-06-04 12:00] VITALS: BP 125/72; PULSE 85; RESP 17; TEMP 36.9; O2SAT 97
--- NOTE | 2022-06-04 12:05 | P.DS_ITS ---
DS: Providers Provider Date of Service: 06/04/22 Date of admission: 06/02/22 05:39 Date of discharge: 06/04/22 Primary care physician: Unknown Physician Consults: 06/02/22 05:40 Consult to Gastroenterology Routine Consulting Provider: Cecilio Cifuentes Reason for consultation: Hematemesis 06/02/22 06:08 Addiction Medicine Routine Consulting Provider: Linette Massey Reason for consultation: cocaine use disorder Consult to Care Team Routine Comment: Reason for consultation: cocaine use disorder DS: Diagnosis Discharge Diagnosis (1) Hematemesis: Status: Acute (2) Cocaine use disorder, moderate, dependence: Status: Acute (3) Diabetes: Status: Acute DS: Summary Hospital Course Hospital Course: 61-year-old male with pertinent history of cocaine use disorder, essential hypertension, mood disorder, diabetes mellitus, mixed hyperlipidemia, neuropathy who presents to the emergency department for evaluation of nausea and bloody emesis.? Patient states he has been having 2 days of nausea and persistent emesis.? Initially it was nonbloody but with the last 1 day it is has been coffee-ground and lately skyler blood.? Also has associated epigastric pain, constant, nonradiating, progressive and without any relieving factors.? Patient denies fever, chills, chest discomfort, palpitations, shortness of breath, changes in urinary habits. Hosital Course Patient admitted to the general medical floor where he remained hemodynamically stable. Other than the date of admission he had no further bloody emesis. He was given Protonix IV x1 and switch to oral omeprazole. He was seen in consultation by GI who felt this was related to a Naida-Cifuentes tear; given history of cocaine use and lack of bleeding EGD was deferred. Patient's diet was advanced the day before discharge and he tolerated a regular diet without issue. Patient is willing [facility] to [facility] and get involved in services and therapies. He will be discharged to same Time Spent with Patient Time attestation: Total time managing care of this patient today ____ minutes. Discharge coordination time: Greater than 30 minutes Quality: Safe Use of Opioids Does Pt have an Active Cancer Diagnosis on the Problem List?: No Quality: Stroke Does the patient have a stroke diagnosis?: No Physical Exam Vital Signs: Vital Signs: Last Vital Signs Temp 98.1 F 06/04/22 07:17 Pulse 85 06/04/22 07:17 Resp 17 02/08/23 07:17 BP 130/67 06/04/22 07:17 Pulse Ox 93 06/04/22 07:17 O2 Del Method 06/04/22 07:17 BMI result Body Mass Index 25.8 Const: Other: No acute distress Resp: Other: Clear to auscultation bilaterally no rales rhonchi wheezes Cardio: Other: No S4; positive S1-S2; no S3 murmurs rubs or gallops GI: Other: Soft nontender nondistended normoactive bowel sounds Extrem: Other: No edema bilaterally DS: Data Data Completed and Pending Completed studies during hospitalization [Text1]: Procedures Transfusion of Nonautologous Red Blood Cells into Peripheral Vein, Percutaneous Approach (04/24/21) Labs on day of discharge: Laboratory Results - last 24 hr 06/03/22 06/03/22 06/03/22 14:20 15:53 19:49 POC Glucose 255 H 281 H Urine Opiates Screen Not Detected Urine Fentanyl Screen Not Detected Ur Barbiturates Screen Not Detected Ur Phencyclidine Scrn Not Detected Ur Amphetamines Screen Not Detected U Benzodiazepines Scrn Not Detected Urine Cocaine Screen POSITIVE H U Marijuana (THC) Screen Not Detected 06/04/22 06/04/22 07:20 11:12 POC Glucose 336 H 338 H Urine Opiates Screen Urine Fentanyl Screen Ur Barbiturates Screen Ur Phencyclidine Scrn Ur Amphetamines Screen U Benzodiazepines Scrn Urine Cocaine Screen U Marijuana (THC) Screen Discharge Plan Discharge Anticipated Discharge Date/Time: 06/04/22 12:08 Patient Disposition: Home, Self-Care Discharge Diagnosis: Hematemesis Referrals: Physician,Unknown J [Primary Care Provider] - 1 Week Discharge Medications: Continued hydroxyzine HCl 25 mg tablet 1 tab PO Q6H PRN (Reason: Anxiety) buprenorphine-naloxone [Suboxone] 4-1 mg film 1 film sublingual QID quetiapine 25 mg Tablet 25 mg PO DAILY 30 Days Qty: 30 0RF quetiapine 300 mg tablet 300 mg PO BEDTIME 30 Days Qty: 30 0RF glyburide 5 mg Tablet 5 mg PO DAILY 30 Days Qty: 30 0RF gabapentin 800 mg tablet 800 mg PO TID 30 Days Qty: 90 0RF docusate sodium 100 mg Capsule 200 mg PO BEDTIME 30 Days Qty: 60 0RF Rx Instructions: hold for loose stool lisinopril 5 mg Tablet 5 mg PO DAILY 30 Days Qty: 30 0RF Protocol: Hold for SBP< HOLD for SBP < : 90 metformin 500 mg tablet 2 tab PO BID acetaminophen 325 mg tablet 2 tab PO TID PRN (Reason: Pain) alum-mag hydroxide-simeth [Sury-Mox Antacid-Antigas] 200-200-20 mg/5 mL Suspension 30 ml PO TIDWM Rx Instructions: administer between meals and at bedtime fluticasone propionate 50 mcg/actuation [place],Suspension 1 spray INTRANASAL DAILY Rx Instructions: administer into each nostril loratadine 10 mg Tablet 10 mg PO DAILY cholecalciferol (vitamin D3) 50 mcg (2,000 unit) Tablet 50 mcg PO DAILY atorvastatin 40 mg tablet 40 mg PO DAILY lamotrigine 25 mg tablet 75 mg PO BEDTIME magnesium oxide 400 mg (241.3 mg magnesium) tablet 400 mg PO DAILY pantoprazole 40 mg tablet,delayed release (DR/EC) 40 mg PO DAILY metoprolol succinate 25 mg tablet extended release 24 hr 25 mg PO DAILY Protocol: Hold for SBP/HR < HOLD for SBP < : 90 HOLD for HR < : 60 duloxetine 60 mg capsule,delayed release(DR/EC) 60 mg PO DAILY fenofibrate 54 mg tablet 54 mg PO DAILY Discharge Orders: Discharge Order (Routine); Ordered 06/04/22 Ordered By: Duane Verduzco Diet: Advance to usual diet Activity on Discharge: As tolerated Stand Alone Forms: Patient Portal Discharge page Care Plan Goals: Continue all meds as taken before hospital Health Concerns: Care plan as your half-way Plan of Treatment: Avoid cocaine at all costs Assessment: See discharge summary
--- NOTE | 2022-06-04 12:42 | MHC.CM.PN ---
IMM 06/02/22 PATIENT IS DISCHARGED TODAY HOME WITH [facility]. THEY WILL PROVIDE TRANSPORTATION AT DISCHARGE. THE PATIENT WILL BE PICKED UP AT 2:30PM. HE IS SCHEDULED TO BE SEEN IN THE CLINIC AT 3PM TODAY. [facility] WILL PROVIDE TRANSPORT TO CLINIC AND THEN TO HOME. THE PATIENT IS AWARE OF THE APPOINTMENT AND TRANSPORT. [facility] HAS BEEN NOTIFIED TO BRING A WC FOR THE PATIENT. THE PATIENT WILL GO TO THE DISCHARGE LOUNGE AT 2PM VIA WC. hE HAS BEEN GIVEN A GIFT CERTIFICATE TO THE [employer] [facility]. ALL DISCHARGE INFORMATION HAS BEEN FAXED TO THE [facility].
== END 2022-06-04 14:20 | disposition home or self-care (01) | DRG 370 ==
LOC: HO.ED 06:17 → HO.EDOVER 06:19 → HO.IMC 15:22
PROVIDERS: Nurse Practitioner Psychiatric/Mental Health; Admitting Provider Student in an Organized Health Care Education/Training Program; Emergency Provider Emergency Medicine Emergency Medical Services; Visit Provider Hospitalist
DX: K22.6 Gastro-esophageal laceration-hemorrhage syndrome (principal); F17.210 Nicotine dependence, cigarettes, uncomplicated; E78.2 Mixed hyperlipidemia; E11.42 Type 2 diabetes mellitus with diabetic polyneuropathy; F10.20 Alcohol dependence, uncomplicated; Z20.822 Contact with and (suspected) exposure to COVID-19; Z71.6 Tobacco abuse counseling; Z79.84 Long term (current) use of oral hypoglycemic drugs; Z79.899 Other long term (current) drug therapy
CPT/HCPCS: 36415; 74177; 80048; 80053; 80307; 82077; 82947; 83605; 83690; 85025; 87635; 97162; 99285; J2405; Q9967

== ENCOUNTER 2022-06-27 10:43 | Inpatient (IN) | payer OTHER, MEDICAID, SELFPAY ==
--- NOTE | ~2022-06-27 | XR_ITS ---
EXAMINATION: XR HUMERUS, LEFT CLINICAL INFORMATION: Elbow tenderness, status post fall COMPARISON: None TECHNIQUE: Left humerus 3 views. FINDINGS: No acute humeral fracture is seen. Proximally, the humeral head articulates with the glenoid. Limited evaluation of the glenohumeral joint space. Moderate acromioclavicular arthritis. There appears be lateral acromial downsloping. The elbow joint articulations appears maintained. There is moderate spurring at the triceps insertion site on the olecranon. There is a subtle lucency within the spurring, and a subtle fracture of the spur, of indeterminate age, cannot be excluded. There is mild soft tissue swelling overlying the olecranon process. No significant elbow joint effusion is seen. Limited evaluation of the elbow joint, without gross acute fracture otherwise identified. XR/XR humerus LT IMPRESSION: *No evidence of acute left humeral fracture or malalignment. *Moderate olecranon spurring at the triceps insertion site. Subtle lucency within the spur, of uncertain significance, with an undisplaced fracture of the spur, of indeterminate age, not excluded. *Limited incomplete evaluation of the elbow joint on the provided views. Dedicated elbow radiographs of further evaluation as clinically warranted. *Moderate acromioclavicular arthritis
--- NOTE | ~2022-06-27 | CT_ITS ---
EXAMINATION: CT HEAD WITHOUT CONTRAST CLINICAL INFORMATION: left hand numbness COMPARISON: 10/04/2021 TECHNIQUE: Multidetector volumetric imaging of the head was performed without intravenous contrast material. This CT examination was performed using dose optimization techniques as appropriate, variously including the following: *Automated exposure control *Adjustment of mA and/or kV according to patient size (this includes techniques or standardized protocols for targeted exams where dose is matched to indication/reason for exam; i.e. extremities or head) *Use of iterative reconstruction technique Dose: 660 mGy-cm FINDINGS: There is no evidence of acute intracranial hemorrhage or territorial infarction. No abnormal mass-effect or midline shift is seen. [place] to white matter differentiation is well preserved. No extra axial fluid collections. Focal encephalomalacia is again seen in the right parieto-occipital cortex, unchanged. Ventricles are symmetric and normal in size. Calcific atherosclerosis is present within the cavernous segments of the internal carotid arteries. A few foci of hypoattenuation in the subcortical and periventricular white matter are most consistent with chronic microangiopathic changes. Plate and screw fixation constructs are again seen in the left infraorbital region. No acute fractures are identified. Soft tissues are unremarkable. Sinuses and mastoid air cells are clear. CT/CT head/brain wo IV con IMPRESSION: No acute intracranial pathology.
[2022-06-27 10:52] VITALS: BP 174/90; PULSE 87; O2SAT 97; BMI 35.5
[2022-06-27 11:00] VITALS: BP 139/83; PULSE 93; RESP 18; TEMP 36.4; O2SAT 95
--- NOTE | 2022-06-27 11:08 | PC.NURSE ---
Pt is unable to ambulate and uses a wheelchair.
[2022-06-27 11:32] LABS: MANUAL DIFF FLAG NO
[2022-06-27 11:41] LABS: Appearance Urine Clear; Color Urine Yellow; Glucose Urine UA >=1000 mg/dL (Negative); Leukocyte Esterase Urine Negative (Negative); Nitrite Urine Negative (Negative); Specific Gravity - Urine >= 1.030 (1.005-1.025); UMIC TRIGGER UACC YES; Urine Blood Negative (Negative); Urine Ketones Negative (Negative); Urine Protein Negative (Neg-Trace)
[2022-06-27 11:43] LABS: Amphetamine Screen Urine Not Detected (Not Detect); Barbiturates, Urine Not Detected (Not Detect); Benzodiazepines Screen Urine Not Detected (Not Detect); Cannabinoid Screen Urine Not Detected (Not Detect); Cocaine Screen Urine POSITIVE (Not Detect); Fentanyl, urine Not Detected (Not Detect); Opiate Screen Urine Not Detected (Not Detect); Phencyclidine Screen Urine Not Detected (Not Detect)
[2022-06-27 11:43] LABS: Basophils Percent Auto 0.5 % (0-2); Eosinophils Absolute Auto 0.1 X10*3/uL (0.0-0.4); Eosinophils Percent Auto 1.9 % (0-4); Hematocrit 38.4 % (42.0-52.0); Hemoglobin 12.8 g/dl (14.0-18.0); Imm Gran Abs Auto 0.02 X10*3/uL (0.00-0.03); Imm Gran Pct Auto 0.3 % (0.0-0.4); Lymphocytes Absolute Auto 1.1 X10*3/uL (1.2-4.9); Lymphocytes Percent Auto 17.9 % (20-40); Mean Corpuscular HGB Conc 33.3 g/dl (31.0-36.0); Mean Corpuscular Hemoglobin 26.3 pg (27.0-33.0); Mean Corpuscular Volume 78.9 fL (80.0-98.0); Mean Platelet Volume 9.4 fL (9.4-12.4); Monocytes Absolute Auto 0.6 X10*3/uL (0.1-1.2); Monocytes Percent Auto 10.1 % (2-11); Neutrophils Absolute Auto 4.1 x10*3/uL (2.0-8.3); Neutrophils Percent Auto 69.3 % (45-73); Platelet Count 267 X10*3/uL (160-400); Red Blood Count 4.87 X10*6/uL (4.60-5.80); Red Cell Distribution Width 15.2 % (11.0-16.0); White Blood Count 5.9 X10*3/uL (4.8-10.8)
[2022-06-27 11:46] LABS: Bacteria Urine None Seen (None Seen); Hyaline Casts Urine 0-2 /LPF (0-2); RBC Urine 0-2 /HPF (0-2); Squamous Epithelial Cell Urine 0-2 /HPF (0-2); WBC Urine 0-5 /HPF (0-5)
[2022-06-27 11:48] LABS: COVID-19 Test Negative (Negative); IDNOW Serial# 16C4AD1C
--- NOTE | 2022-06-27 12:02 | PC.NURSE ---
Preliminary med rec completed from D/c paperwork on 06/04.
[2022-06-27 12:06] LABS: Ethanol < 10 mg/dL
[2022-06-27 12:10] LABS: Alanine Aminotransferase 50 U/L (0-40); Albumin Level 4.4 g/dL (3.5-5.0); Alkaline Phosphatase 99 U/L (39-117); Anion Gap 14 (12-20); Aspartate Amino Transferase 51 U/L (5-37); Bilirubin Direct < 0.2 mg/dL (0.0-0.5); Bilirubin Total 0.5 mg/dL (0.0-1.0); Blood Urea Nitrogen 17 mg/dL (9-16); Calcium 9.5 mg/dL (8.4-10.2); Carbon Dioxide 24 mmol/L (22-29); Chloride 98 mmol/L (96-108); Creatinine Clr Calc Pharmacy 96.5; Estimated Glomerular Filt Rate > 60; Glucose Random 376 mg/dL (60-115); Lipase 28 U/L (8-78); Potassium 4.4 mmol/L (3.3-5.1); Sodium 132 mmol/L (135-145); Total Protein 7.2 g/dL (6.5-8.0)
--- NOTE | 2022-06-27 14:02 | ED_ITS ---
HPI - Psych General Chief Complaint: Psychiatric Symptoms Stated Complaint: SI per EMS Time Seen by Provider: 06/27/22 13:19 Source: patient and other (Care team counselor) Mode of arrival: EMS Limitations: no limitations History of Present Illness HPI Narrative: 62-year-old male who presents emergency department for evaluation of suicidal ideation. Patient states that he has been having suicidal thoughts on off for 1 month. He states he does not have a plan but he is not certain that if he left he would not hurt himself. The patient states he does use crack cocaine once a month. He states he last used 2-3 days prior. Patient does have diabetes and he takes metformin. He states that he has not been compliant with a diabetic diet. He denied fever, chills, rhinorrhea, sore throat, cough, chest pain, shortness of breath. Patient states that he is unable to walk any uses a wheelchair. Related Data Home Medications Medication Instructions Recorded Confirmed buprenorphine 4 mg-naloxone 1 mg 1 film sublingual QID 10/29/21 06/27/22 sublingual film (Suboxone) acetaminophen 325 mg tablet 2 tab PO TID PRN Pain 01/01/22 06/27/22 aluminum-mag hydroxide-simethicone 30 ml PO TIDWM 01/01/22 06/27/22 200 mg-200 mg-20 mg/5 mL oral susp (Sury-Mox Antacid-Antigas) atorvastatin 40 mg tablet 40 mg PO DAILY 01/01/22 06/27/22 cholecalciferol (vitamin D3) 50 50 mcg PO DAILY 01/01/22 06/27/22 mcg (2,000 unit) tablet duloxetine 60 mg capsule,delayed 60 mg PO DAILY 01/01/22 06/27/22 release fenofibrate 54 mg tablet 54 mg PO DAILY 01/01/22 06/27/22 fluticasone propionate 50 1 spray intranasal DAILY 01/01/22 06/27/22 mcg/actuation nasal spray,suspension lamotrigine 25 mg tablet 75 mg PO BEDTIME 01/01/22 06/27/22 loratadine 10 mg tablet 10 mg PO DAILY 01/01/22 06/27/22 magnesium oxide 400 mg (241.3 mg 400 mg PO DAILY 01/01/22 06/27/22 magnesium) tablet metformin 500 mg tablet 2 tab PO BID 01/01/22 06/27/22 metoprolol succinate 25 mg 25 mg PO DAILY 01/01/22 06/27/22 tablet,extended release 24 hr pantoprazole 40 mg tablet,delayed 40 mg PO DAILY 01/01/22 06/27/22 release hydroxyzine HCl 25 mg tablet 1 tab PO Q6H PRN Anxiety 06/02/22 06/27/22 Previous Rx's Medication Instructions Recorded docusate sodium 100 mg capsule 200 mg PO BEDTIME 30 days #60 caps 11/08/21 gabapentin 800 mg tablet 800 mg PO TID 30 days #90 tabs 11/08/21 glyburide 5 mg tablet 5 mg PO DAILY 30 days #30 tabs 11/08/21 lisinopril 5 mg tablet 5 mg PO DAILY 30 days #30 tabs 11/08/21 quetiapine 25 mg tablet 25 mg PO DAILY 30 days #30 tabs 11/08/21 quetiapine 300 mg tablet 300 mg PO BEDTIME 30 days #30 tabs 11/08/21 Allergies Allergy/AdvReac Type Severity Reaction Status Date / Time No Known Allergies Allergy Verified 05/31/21 11:24 Review of Systems Review of Systems: Yes all other systems are reviewed and are negative [facility] Past Medical History [facility] Narrative: Social history: The patient smokes 2 packs of cigarettes per day times 48 year s. He denies alcohol use. He occasionally smokes marijuana he states the smokes crack cocaine once or twice a month and last use 3 days prior Medical History Acute blood loss anemia Cerebral infarction Cocaine use disorder, moderate, dependence Diabetes HTN (hypertension) MDD (major depressive disorder), recurrent episode, moderate Multifactorial gait disorder Opioid use disorder, mild, in sustained remission Social History Social History Household Members: None Housing: Apartment Housing Other:: I live in a farmhouse in [place] . Do you presently have visiting nurse or other home services: Yes Unable to assess alcohol history related to: Unknown Alcohol intake: unknown Patient Tobacco Use Status: Current everyday Tobacco user Tobacco use type: Cigarette Cigarette Packs Per Day: 2 Cigarettes Per Day: 40.0 Years Smoked: 12 Smoked in Last 30 Days: Yes e-Cigarette/Vaping Use: Never Used Second Hand Smoke Exposure: No Use of substances other than those prescribed or required for medical reasons: Yes Substance Use Type: Crack/Cocaine Advance Directives: No Healthcare Proxy: No Guardian: No service: Yes Current occupational status: disabled Sexual orientation: Bisexual Physical Exam Vital Signs: Vital Signs: Last Vital Signs Temp 97.5 F 06/27/22 11:00 Pulse 93 06/27/22 11:00 Resp 18 06/27/22 11:00 BP 139/83 06/27/22 11:00 Pulse Ox 95 06/27/22 11:00 O2 Del Method 06/27/22 11:00 BMI result Body Mass Index 35.5 Vital signs were normal. General: Awake, alert, male patient, does not appear to be in distress HEENT: Normal cephalic atraumatic, pupils equal round reactive light, sclera conjunctiva normal, mouth revealed moist membranes, edentulous Neck: Soft Lungs: Clear to auscultation breath sounds symmetric bilateral Heart: Regular rate rhythm, normal S1-S2, no murmurs rubs gallops Abdomen: Soft, nontender, nondistended Back: No CVA tenderness Extremities: No trauma Neuro: Cranial nerves intact, strength symmetric Medications Administered Discontinued Medications Generic Name Dose Route Start Last Admin Trade Name Freq PRN Reason Stop Dose Admin Insulin Human Lispro 8 unit 06/27/22 14:09 06/27/22 14:37 Insulin Lispro 100 Unit/Ml 3 Ml Vial SUBCUT 06/27/22 14:10 8 unit ONCE ONE Administration Medical Decision Making Medical Decision Making MDM Narrative: 62 male with a history of diabetes, hypertension, chronic pain and cocaine use disorder who presents emergency department for evaluation of suicidal ideation 2 months. The patient does not have a plan however he is not certain if he left that he would not hurt himself. Patient was seen by our care team counselor who felt that the patient should be managed as an inpatient. I did order laboratory evaluation to include CBC, CMP, lipase, COVID-19, urinalysis, urine drug screen, alcohol level. 1407: My independent interpretation patient's laboratory evaluation as follows: CBC normal. CMP revealed an elevated AST and ALT of 5150. Glucose was elevated 376. Urine tox screen positive for cocaine-the patient does use crack cocaine. Alcohol level was below detectable limits. The the patient's elevated glucose was treated with lispro insulin 8 units subcutaneously. The patient will also be encouraged to drink fluid to bring down his glucose. 1408: Start physician observation: Patient will be placed in physician observation and managed in the ED Behavioral Health Unit until an appropriate disposition can be determined. 1724: Continue physician observation: Patient's medications were reconciled and there were ordered by me. Lab Data 06/27/22 11:25 06/27/22 11:25 Labs: Lab Results 06/27/22 06/27/22 06/27/22 Range/Units 02:38 11:24 11:25 WBC 5.9 (4.8-10.8) X10*3/uL RBC 4.87 (4.60-5.80) X10*6/uL Hgb 12.8 L (14.0-18.0) g/dl Hct 38.4 L (42.0-52.0) % MCV 78.9 L (80.0-98.0) fL MCH 26.3 L (27.0-33.0) pg MCHC 33.3 (31.0-36.0) g/dl RDW 15.2 (11.0-16.0) % Plt Count 267 (160-400) X10*3/uL MPV 9.4 (9.4-12.4) fL Immature Gran % (Auto) 0.3 (0.0-0.4) % Neut % (Auto) 69.3 (45-73) % Lymph % (Auto) 17.9 L (20-40) % Cook % (Auto) 10.1 (2-11) % Eos % (Auto) 1.9 (0-4) % Baso % (Auto) 0.5 (0-2) % Lymph # (Auto) 1.1 L (1.2-4.9) X10*3/uL Cook # (Auto) 0.6 (0.1-1.2) X10*3/uL Eos # (Auto) 0.1 (0.0-0.4) X10*3/uL Baso # (Auto) 0.0 (0.0-0.2) X10*3/uL Abs Immat Gran (auto) 0.02 (0.00-0.03) X10*3/uL Absolute Neuts (auto) 4.1 (2.0-8.3) x10*3/uL Absolute Nucleated RBC 0.000 (0.0-0.012) X10*3/uL Nucleated RBC % (auto) 0.0 (0.0-0.2) /100WBC Sodium (135-145) mmol/L Potassium (3.3-5.1) mmol/L Chloride (96-108) mmol/L Carbon Dioxide (22-29) mmol/L Anion Gap (12-20) BUN (9-16) mg/dL Creatinine (0.5-1.4) mg/dL Estim Creat Clear Calc Estimated GFR Random Glucose (60-115) mg/dL Calcium (8.4-10.2) mg/dL Total Bilirubin (0.0-1.0) mg/dL Direct Bilirubin (0.0-0.5) mg/dL AST (5-37) U/L ALT (0-40) U/L Alkaline Phosphatase (39-117) U/L Total Protein (6.5-8.0) g/dL Albumin (3.5-5.0) g/dL Lipase (8-78) U/L Urine Color Yellow Urine Appearance Clear Urine pH 6.0 (5.0-9.0) Ur Specific [place] >= 1.030 H (1.005-1.025) Urine Protein Negative (Neg-Trace) mg/dL Urine Glucose (UA) >=1000 H (Negative) mg/dL Urine Ketones Negative (Negative) mg/dL Urine Blood Negative (Negative) Urine Nitrite Negative (Negative) Ur Leukocyte Esterase Negative (Negative) Urine RBC 0-2 (0-2) /HPF Urine WBC 0-5 (0-5) /HPF Ur Squamous Epith Cells 0-2 (0-2) /HPF Urine Bacteria None Seen (None Seen) Hyaline Casts 0-2 (0-2) /LPF Urine Opiates Screen Not Detected (Not Detect) Urine Fentanyl Screen Not Detected (Not Detect) Ur Barbiturates Screen Not Detected (Not Detect) Ur Phencyclidine Scrn Not Detected (Not Detect) Ur Amphetamines Screen Not Detected (Not Detect) U Benzodiazepines Scrn Not Detected (Not Detect) Urine Cocaine Screen POSITIVE H (Not Detect) U Marijuana (THC) Screen Not Detected (Not Detect) Ethyl Alcohol mg/dL COVID-19 ([place]) (Negative) COVID-19 Clin Com 06/27/22 06/27/22 06/27/22 Range/Units 11:25 11:25 11:25 WBC (4.8-10.8) X10*3/uL RBC (4.60-5.80) X10*6/uL Hgb (14.0-18.0) g/dl Hct (42.0-52.0) % MCV (80.0-98.0) fL MCH (27.0-33.0) pg MCHC (31.0-36.0) g/dl RDW (11.0-16.0) % Plt Count (160-400) X10*3/uL MPV (9.4-12.4) fL Immature Gran % (Auto) (0.0-0.4) % Neut % (Auto) (45-73) % Lymph % (Auto) (20-40) % Cook % (Auto) (2-11) % Eos % (Auto) (0-4) % Baso % (Auto) (0-2) % Lymph # (Auto) (1.2-4.9) X10*3/uL [place] # (Auto) (0.1-1.2) X10*3/uL Eos # (Auto) (0.0-0.4) X10*3/uL Baso # (Auto) (0.0-0.2) X10*3/uL Abs Immat Gran (auto) (0.00-0.03) X10*3/uL Absolute Neuts (auto) (2.0-8.3) x10*3/uL Absolute Nucleated RBC (0.0-0.012) X10*3/uL Nucleated RBC % (auto) (0.0-0.2) /100WBC Sodium 132 L (135-145) mmol/L Potassium 4.4 (3.3-5.1) mmol/L Chloride 98 (96-108) mmol/L Carbon Dioxide 24 (22-29) mmol/L Anion Gap 14 (12-20) BUN 17 H (9-16) mg/dL Creatinine 0.90 (0.5-1.4) mg/dL Estim Creat Clear Calc 96.5 Estimated GFR > 60 Random Glucose 376 H* (60-115) mg/dL Calcium 9.5 D (8.4-10.2) mg/dL Total Bilirubin 0.5 (0.0-1.0) mg/dL Direct Bilirubin < 0.2 (0.0-0.5) mg/dL AST 51 H (5-37) U/L ALT 50 H (0-40) U/L Alkaline Phosphatase 99 (39-117) U/L Total Protein 7.2 (6.5-8.0) g/dL Albumin 4.4 (3.5-5.0) g/dL Lipase 28 (8-78) U/L Urine Color Urine Appearance Urine pH (5.0-9.0) Ur Specific [place] (1.005-1.025) Urine Protein (Neg-Trace) mg/dL Urine Glucose (UA) (Negative) mg/dL Urine Ketones (Negative) mg/dL Urine Blood (Negative) Urine Nitrite (Negative) Ur Leukocyte Esterase (Negative) Urine RBC (0-2) /HPF Urine WBC (0-5) /HPF Ur Squamous Epith Cells (0-2) /HPF Urine Bacteria (None Seen) Hyaline Casts (0-2) /LPF Urine Opiates Screen (Not Detect) Urine Fentanyl Screen (Not Detect) Ur Barbiturates Screen (Not Detect) Ur Phencyclidine Scrn (Not Detect) Ur Amphetamines Screen (Not Detect) U Benzodiazepines Scrn (Not Detect) Urine Cocaine Screen (Not Detect) U Marijuana (THC) Screen (Not Detect) Ethyl Alcohol < 10 mg/dL COVID-19 (TANA) Negative (Negative) COVID-19 Clin Com See Note Discharge Plan Discharge Clinical Impression: Suicidal ideations, Cocaine use, Acute hyperglycemia Patient Disposition: Still a Patient Prescriptions: No Action hydroxyzine HCl 25 mg tablet 1 tab PO Q6H PRN (Reason: Anxiety) buprenorphine-naloxone [Suboxone] 4-1 mg film 1 film sublingual QID quetiapine 25 mg Tablet 25 mg PO DAILY 30 Days Qty: 30 0RF quetiapine 300 mg tablet 300 mg PO BEDTIME 30 Days Qty: 30 0RF glyburide 5 mg Tablet 5 mg PO DAILY 30 Days Qty: 30 0RF gabapentin 800 mg tablet 800 mg PO TID 30 Days Qty: 90 0RF docusate sodium 100 mg Capsule 200 mg PO BEDTIME 30 Days Qty: 60 0RF Rx Instructions: hold for loose stool lisinopril 5 mg Tablet 5 mg PO DAILY 30 Days Qty: 30 0RF Protocol: Hold for SBP< HOLD for SBP < : 90 metformin 500 mg tablet 2 tab PO BID acetaminophen 325 mg tablet 2 tab PO TID PRN (Reason: Pain) alum-mag hydroxide-simeth [Sury-Mox Antacid-Antigas] 200-200-20 mg/5 mL Suspension 30 ml PO TIDWM Rx Instructions: administer between meals and at bedtime fluticasone propionate 50 mcg/actuation [place],Suspension 1 spray INTRANASAL DAILY Rx Instructions: administer into each nostril loratadine 10 mg Tablet 10 mg PO DAILY cholecalciferol (vitamin D3) 50 mcg (2,000 unit) Tablet 50 mcg PO DAILY atorvastatin 40 mg tablet 40 mg PO DAILY lamotrigine 25 mg tablet 75 mg PO BEDTIME magnesium oxide 400 mg (241.3 mg magnesium) tablet 400 mg PO DAILY pantoprazole 40 mg tablet,delayed release (DR/EC) 40 mg PO DAILY metoprolol succinate 25 mg tablet extended release 24 hr 25 mg PO DAILY Protocol: Hold for SBP/HR < HOLD for SBP < : 90 HOLD for HR < : 60 duloxetine 60 mg capsule,delayed release(DR/EC) 60 mg PO DAILY fenofibrate 54 mg tablet 54 mg PO DAILY Interventions: [place]-Suicide Risk Severity Scale Last Done: 06/27/22 10:54
[2022-06-27] MEDS: Insulin Lispro 100 UNIT/ML 3 ML VIAL 8 UNIT SUBCUT (14:37)
--- NOTE | 2022-06-27 14:42 | ECG_ITS ---
Test Reason : COCAINE USE Blood Pressure : / mmHG Vent. Rate : 084 BPM Atrial Rate : 084 BPM P-R Int : 218 ms QRS Dur : 102 ms QT Int : 390 ms P-R-T Axes : 047 034 061 degrees QTc Int : 460 ms Sinus rhythm with 1st degree A-V block Incomplete right bundle branch block Possible Posterior infarct Borderline ECG When compared with ECG of 30-OCT-2021 10:44, No significant changes seen Referred By: Esteban Arevalo Electronically Signed By:BETINA SULLIVAN MD
[2022-06-27 17:49] VITALS: BP 144/97; PULSE 92; RESP 18; TEMP 37.1; O2SAT 95
--- NOTE | 2022-06-27 18:01 | PC.NURSE ---
nurse to nurse given to wilder RN on m5
[2022-06-27] MEDS: lisinopriL 5 MG TABLET PO (19:33)
[2022-06-27] MEDS: Metoprolol Succinate ER 25 MG TAB.ER.24H PO (19:33)
[2022-06-27] MEDS: Buprenorphine/Naloxone 4/1 mg FILM 1 FILM SUBLINGUAL (19:33)
[2022-06-27] MEDS: QUEtiapine Fumarate 300 MG TABLET PO (19:33)
[2022-06-27] MEDS: Docusate Sodium 100 MG CAPSULE 200 MG PO (19:34)
[2022-06-27] MEDS: Gabapentin 400 MG CAPSULE 800 MG PO (19:34)
[2022-06-27] MEDS: lamoTRIgine 25 MG TABLET 75 MG PO (19:34)
[2022-06-27 20:00] VITALS: BP 159/77; PULSE 86; TEMP 36.4; O2SAT 95
[2022-06-27] MEDS: Insulin Lispro 100 UNIT/ML 3 ML VIAL SUBCUT (20:14)
[2022-06-27 22:31] LABS: Glucose, Whole Blood 355 mg/dL (60-115)
--- NOTE | 2022-06-27 23:30 | PC.ADMIT ---
pt is a 62 year old male who presented to [facility] with SI. pt is positive for cocaine. during admission, pt mumbles but answers all questions. pt reports being constipation and colace was given. pt reports needing a patch. pt report no SI at this time. pt has an unsteady gait and needs a wheelchair to get around. pt can only stand for short periods of times. pt is CV. started treatment plan and promote safety plan.
--- NOTE | 2022-06-27 23:37 | PC.NURSE ---
pt had a POC of 355. psychriatric MD and hospitalist notified. pt was given 10 units.
[2022-06-28] MEDS: Omeprazole 20 MG CAPSULE.DR PO (06:34)
[2022-06-28 07:48] LABS: Estimated Average Glucose 235 mg/dL; Hemoglobin A1c % 9.8 %
[2022-06-28 07:53] LABS: Alanine Aminotransferase 54 U/L (0-40); Albumin Level 3.9 g/dL (3.5-5.0); Alkaline Phosphatase 89 U/L (39-117); Anion Gap 14 (12-20); Aspartate Amino Transferase 72 U/L (5-37); Bilirubin Total 0.5 mg/dL (0.0-1.0); Blood Urea Nitrogen 20 mg/dL (9-16); Calcium 9.3 mg/dL (8.4-10.2); Carbon Dioxide 26 mmol/L (22-29); Chloride 97 mmol/L (96-108); Cholesterol 157 mg/dL; Creatinine Clr Calc Pharmacy 80.4; Estimated Glomerular Filt Rate > 60; Glucose Fasting 422 mg/dL (60-99); HDL Cholesterol 22 mg/dL; LDL Cholesterol Calculated 85 mg/dl; Potassium 4.5 mmol/L (3.3-5.1); Sodium 132 mmol/L (135-145); Total Protein 6.4 g/dL (6.5-8.0); Triglycerides 254 mg/dL
[2022-06-28 08:16] LABS: Folate 10.5 ng/mL (> or = 4.0); TSH reflex Free T4 3.21 uIU/mL (0.32-4.0); Vitamin B12 738 pg/mL (200-900)
[2022-06-28 08:33] VITALS: BP 99/58; PULSE 80; RESP 16; TEMP 36.2; O2SAT 97
[2022-06-28] MEDS: Insulin Lispro 100 UNIT/ML 3 ML VIAL SUBCUT ×4 (08:35→19:21)
[2022-06-28] MEDS: glyBURIDE 5 MG TABLET PO (08:36)
[2022-06-28] MEDS: Buprenorphine/Naloxone 4/1 mg FILM 1 FILM SUBLINGUAL ×4 (08:36→19:02)
[2022-06-28] MEDS: Fenofibrate 54 MG TABLET PO (08:36)
[2022-06-28] MEDS: Cholecalciferol (Vitamin D3) 25 MCG TABLET 50 MCG PO (08:36)
[2022-06-28] MEDS: Magnesium Hydrox/Alum Hydrox 30 ML ORAL.SUSP PO ×3 (08:36→16:38)
[2022-06-28] MEDS: DULoxetine HCl 60 MG CAPSULE.DR PO (08:36)
[2022-06-28] MEDS: Metoprolol Succinate ER 25 MG TAB.ER.24H PO (08:37)
[2022-06-28] MEDS: lisinopriL 5 MG TABLET PO (08:37)
[2022-06-28] MEDS: Gabapentin 400 MG CAPSULE 800 MG PO ×3 (08:37→19:02)
[2022-06-28] MEDS: Magnesium Oxide 400 MG TABLET PO (08:37)
[2022-06-28] MEDS: Atorvastatin Calcium 40 MG TABLET PO (08:38)
[2022-06-28] MEDS: metFORMIN HCl 1,000 MG TABLET 1000 MG PO ×2 (08:38→16:38)
[2022-06-28] MEDS: QUEtiapine Fumarate 25 MG TABLET PO (08:38)
[2022-06-28] MEDS: Loratadine 10 MG TABLET PO (08:38)
--- NOTE | 2022-06-28 09:48 | P.HPPS_ITS ---
HPI Date of Service: 06/28/22 Chief Complaint: SI Sources of Information: patient interviewed and chart reviewed HPI Subjective Notes: Conditional Voluntary Healthcare Proxy: No Guardianship: No Medical Problems Affecting Mental Status: No Narrative: pt left unit last admit, did not go to assited living (feels now this was a mistkae) [facility] and as of 06/25 spent monthly check on crack cocaine- Resulting in now being broke for rest of month, and depressed with si after use of crack - Past Psychiatric History: -No current OP providers (hx of poor follow up) -Hx of IPLOC, last at [facility] in May 2021, Feb 2021. Hx of IPLOC at [facility] in [facility]. -Suicide attempts: none -Past medication trials: seroquel, cymbalta, gabapentin Medical Evaluation Reviewed: Yes (ED physical reviewed) no acute changes multiple comorbidities no acute process [facility] Medical History Acute blood loss anemia Cerebral infarction Cocaine use disorder, moderate, dependence Diabetes HTN (hypertension) MDD (major depressive disorder), recurrent episode, moderate Multifactorial gait disorder Opioid use disorder, mild, in sustained remission Family History: uncle- completed suicide Social History: -Pt for 30 years with male partner, now but states they are somewhat close. -No children. Served in . -Pt lives alone, waiting to get into the [facility] -He has limited social supports. Per chart, he had 6 siblings but all are except a brother in [place] who he does not talk to. 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 Diagnostics Vital Signs (24Hr): Vital Signs - 24 hr 06/27/22 11:00 06/27/22 17:49 06/27/22 20:00 Temperature 97.5 F 98.7 F 97.6 F Pulse Rate 93 92 86 Respiratory Rate 18 18 Blood Pressure 139/83 144/97 H 159/77 H Pulse Oximetry 95 95 95 Oxygen Delivery Method Room Air Room Air Room Air 06/28/22 08:33 Temperature 97.2 F Pulse Rate 80 Respiratory Rate 16 Blood Pressure 99/58 L Pulse Oximetry 97 Oxygen Delivery Method Room Air BMI result Body Mass Index 35.5 Labs 06/27/22 11:25 06/28/22 07:12 Labs: Laboratory Results - last 48 hr 06/27/22 06/27/22 06/27/22 02:38 11:24 11:25 WBC 5.9 RBC 4.87 Hgb 12.8 L Hct 38.4 L MCV 78.9 L MCH 26.3 L MCHC 33.3 RDW 15.2 Plt Count 267 MPV 9.4 Immature Gran % (Auto) 0.3 Neut % (Auto) 69.3 Lymph % (Auto) 17.9 L [place] % (Auto) 10.1 Eos % (Auto) 1.9 Baso % (Auto) 0.5 Lymph # (Auto) 1.1 L [place] # (Auto) 0.6 Eos # (Auto) 0.1 Baso # (Auto) 0.0 Abs Immat Gran (auto) 0.02 Absolute Neuts (auto) 4.1 Absolute Nucleated RBC 0.000 Nucleated RBC % (auto) 0.0 Sodium Potassium Chloride Carbon Dioxide Anion Gap BUN Creatinine Estim Creat Clear Calc Estimated GFR POC Glucose Random Glucose Fasting Glucose Estimat Average Glucose Hemoglobin A1c % Calcium Total Bilirubin Direct Bilirubin AST ALT Alkaline Phosphatase Total Protein Albumin Triglycerides Cholesterol LDL Cholesterol, Calc HDL Cholesterol Lipase Vitamin B12 Folate TSH Urine Color Yellow Urine Appearance Clear Urine pH 6.0 Ur Specific [place] >= 1.030 H Urine Protein Negative Urine Glucose (UA) >=1000 H Urine Ketones Negative Urine Blood Negative Urine Nitrite Negative Ur Leukocyte Esterase Negative Urine RBC 0-2 Urine WBC 0-5 Ur Squamous Epith Cells 0-2 Urine Bacteria None Seen Hyaline Casts 0-2 Urine Opiates Screen Not Detected Urine Fentanyl Screen Not Detected Ur Barbiturates Screen Not Detected Ur Phencyclidine Scrn Not Detected Ur Amphetamines Screen Not Detected U Benzodiazepines Scrn Not Detected Urine Cocaine Screen POSITIVE H U Marijuana (THC) Screen Not Detected Ethyl Alcohol COVID-19 ([facility]) COVID-19 Clin Com 06/27/22 06/27/22 06/27/22 11:25 11:25 11:25 WBC RBC Hgb Hct MCV MCH MCHC RDW Plt Count MPV Immature Gran % (Auto) Neut % (Auto) Lymph % (Auto) [place] % (Auto) Eos % (Auto) Baso % (Auto) Lymph # (Auto) [place] # (Auto) Eos # (Auto) Baso # (Auto) Abs Immat Gran (auto) Absolute Neuts (auto) Absolute Nucleated RBC Nucleated RBC % (auto) Sodium 132 L Potassium 4.4 Chloride 98 Carbon Dioxide 24 Anion Gap 14 BUN 17 H Creatinine 0.90 Estim Creat Clear Calc 96.5 Estimated GFR > 60 POC Glucose Random Glucose 376 H* Fasting Glucose Estimat Average Glucose Hemoglobin A1c % Calcium 9.5 D Total Bilirubin 0.5 Direct Bilirubin < 0.2 AST 51 H ALT 50 H Alkaline Phosphatase 99 Total Protein 7.2 Albumin 4.4 Triglycerides Cholesterol LDL Cholesterol, Calc HDL Cholesterol Lipase 28 Vitamin B12 Folate TSH Urine Color Urine Appearance Urine pH Ur Specific [place] Urine Protein Urine Glucose (UA) Urine Ketones Urine Blood Urine Nitrite Ur Leukocyte Esterase Urine RBC Urine WBC Ur Squamous Epith Cells Urine Bacteria Hyaline Casts Urine Opiates Screen Urine Fentanyl Screen Ur Barbiturates Screen Ur Phencyclidine Scrn Ur Amphetamines Screen U Benzodiazepines Scrn Urine Cocaine Screen U Marijuana (THC) Screen Ethyl Alcohol < 10 COVID-19 ([facility]) Negative COVID-19 Clin Com See Note 06/27/22 06/28/22 06/28/22 20:00 07:12 07:12 WBC RBC Hgb Hct MCV MCH MCHC RDW Plt Count MPV Immature Gran % (Auto) Neut % (Auto) Lymph % (Auto) [place] % (Auto) Eos % (Auto) Baso % (Auto) Lymph # (Auto) [place] # (Auto) Eos # (Auto) Baso # (Auto) Abs Immat Gran (auto) Absolute Neuts (auto) Absolute Nucleated RBC Nucleated RBC % (auto) Sodium 132 L Potassium 4.5 Chloride 97 Carbon Dioxide 26 Anion Gap 14 BUN 20 H Creatinine 1.08 Estim Creat Clear Calc 80.4 Estimated GFR > 60 POC Glucose 355 H* Random Glucose Fasting Glucose 422 H* Estimat Average Glucose 235 Hemoglobin A1c % 9.8 Calcium 9.3 Total Bilirubin 0.5 Direct Bilirubin AST 72 H ALT 54 H Alkaline Phosphatase 89 Total Protein 6.4 L Albumin 3.9 Triglycerides 254 Cholesterol 157 LDL Cholesterol, Calc 85 HDL Cholesterol 22 Lipase Vitamin B12 738 Folate 10.5 TSH 3.21 Urine Color Urine Appearance Urine pH Ur Specific [place] Urine Protein Urine Glucose (UA) Urine Ketones Urine Blood Urine Nitrite Ur Leukocyte Esterase Urine RBC Urine WBC Ur Squamous Epith Cells Urine Bacteria Hyaline Casts Urine Opiates Screen Urine Fentanyl Screen Ur Barbiturates Screen Ur Phencyclidine Scrn Ur Amphetamines Screen U Benzodiazepines Scrn Urine Cocaine Screen U Marijuana (THC) Screen Ethyl Alcohol COVID-19 ([facility]) COVID-19 Clin Com hyperglycemic got insulin hyponatremic will recheck tomorrow EKG EKG: reviewed (06/27/22) EKG Comment: Sinus rhythm with 1st degree A-V block Incomplete right bundle branch block Possible Posterior infarct Borderline ECG When compared with ECG of 30-OCT-2021 10:44, No significant changes seen Meds/Allergies Meds Home Medications Medication Instructions Recorded Confirmed Type buprenorphine 4 mg-naloxone 1 mg 1 film sublingual QID 10/29/21 06/27/22 History sublingual film (Suboxone) acetaminophen 325 mg tablet 2 tab PO TID PRN Pain 01/01/22 06/27/22 History aluminum-mag hydroxide-simethicone 30 ml PO TIDWM 01/01/22 06/27/22 History 200 mg-200 mg-20 mg/5 mL oral susp (Sury-Mox Antacid-Antigas) atorvastatin 40 mg tablet 40 mg PO DAILY 01/01/22 06/27/22 History cholecalciferol (vitamin D3) 50 50 mcg PO DAILY 01/01/22 06/27/22 History mcg (2,000 unit) tablet duloxetine 60 mg capsule,delayed 60 mg PO DAILY 01/01/22 06/27/22 History release fenofibrate 54 mg tablet 54 mg PO DAILY 01/01/22 06/27/22 History fluticasone propionate 50 1 spray intranasal DAILY 01/01/22 06/27/22 History mcg/actuation nasal spray,suspension lamotrigine 25 mg tablet 75 mg PO BEDTIME 01/01/22 06/27/22 History loratadine 10 mg tablet 10 mg PO DAILY 01/01/22 06/27/22 History magnesium oxide 400 mg (241.3 mg 400 mg PO DAILY 01/01/22 06/27/22 History magnesium) tablet metformin 500 mg tablet 2 tab PO BID 01/01/22 06/27/22 History metoprolol succinate 25 mg 25 mg PO DAILY 01/01/22 06/27/22 History tablet,extended release 24 hr pantoprazole 40 mg tablet,delayed 40 mg PO DAILY 01/01/22 06/27/22 History release hydroxyzine HCl 25 mg tablet 1 tab PO Q6H PRN Anxiety 06/02/22 06/27/22 History Allergies Allergies Allergy/AdvReac Type Severity Reaction Status Date / Time No Known Allergies Allergy Verified 05/31/21 11:24 Mental Status Exam Mental Status Exam Patient Appearance: Disheveled and Unkempt Patient Orientation: Person, Place, Time and Situation Level of Consciousness: Drowsy Patient Behavior: Appropriate Mood Description: Calm Affect Description: Calm Patient Cognition Impaired: No Ability to Follow Directions: Fair Speech Pattern: Mumbled (says due to missing dentures which didn't fit him right anyway) and Poor Articulation Hallucinations: None Delusions: Not Present Thought Process: Intact Thought Content: positive for Intact, positive for Goal Oriented and positive for Suicidal Ideation (?) Depressive Symptoms: Hopelessness ( I gave up after I ended up in wheelchair ) and Low Self Esteem Judgement: Fair Judgement and Insight: until he gets his monthly check Assessment & Plan Assessment & Plan (1) Suicidal ideations: Status: Acute Code(s): R45.851 - Suicidal ideations Assessment and Plan: no current specific plan, more hopless and helpless (2) Cocaine use: Status: Acute Code(s): F14.90 - Cocaine use, unspecified, uncomplicated Assessment and Plan: crack spent monthly check on (3) Multifactorial gait disorder: Status: Acute Code(s): R26.89 - Other abnormalities of gait and mobility Assessment and Plan: uses wheel chair due to leg foot pain- (4) MDD (major depressive disorder), recurrent episode, moderate: Status: Chronic Code(s): F33.1 - Major depressive disorder, recurrent, moderate Assessment and Plan: currently on medication was off for last 3 days while using Plan resume medications Patient educated on: substance abuse and therapeutic strategies Informed Consent: understands Reason for continued inpatient stay Substantial Risk for: harm to self and rapid decompensation Statement Statement: I have reviewed the history and physical and performed a pertinent examination on my patient. No changes have occurred unless specified. If the History and Physical was not performed prior to admission, the Hospitalist's service will be consulted for completing the admission physical. Time Spent With Patient Time: Total time managing care of this patient today ____ minutes.
[2022-06-28 12:44] LABS: Glucose, Whole Blood 232 mg/dL (60-115)
[2022-06-28 13:06] VITALS: BP 106/76; PULSE 87; RESP 16; TEMP 36.4; O2SAT 96
--- NOTE | 2022-06-28 13:07 | P.EN_ITS ---
Event Note Date of Service: 06/28/22 Event Note: 62 year old male with history of uncontrolled type 2 diabetes, polysubstance abuse, chronic pain syndrome, and depression admitted to psychiatry [facility] consult placed to hospitalist service for assistance with diabetes management and hyperglycemia. Fasting glucose this morning 422, goal 90-130. A1c 9.8%. He is taking 2000mg metformin daily, glyburide 5mg daily, and is on sliding scale humalog. Will add 10 units lantus at bedtime. Continue metformin, glyburide, and SSI with meals. Check POC 4 times daily and record in real time. Diabetic diet if possible. Monitor for hypoglycemia and use hypoglycemia protocol prn. Please contact with further questions. Will sign off Time Spent With Patient Time: Total time managing care of this patient today ____ minutes.
[2022-06-28 16:27] LABS: Glucose, Whole Blood 207 mg/dL (60-115)
[2022-06-28 17:49] VITALS: BP 136/62; PULSE 84
[2022-06-28] MEDS: Docusate Sodium 100 MG CAPSULE 200 MG PO (19:02)
[2022-06-28] MEDS: QUEtiapine Fumarate 300 MG TABLET PO (19:04)
[2022-06-28] MEDS: lamoTRIgine 25 MG TABLET 75 MG PO (19:04)
[2022-06-28 19:19] LABS: Glucose, Whole Blood 213 mg/dL (60-115)
[2022-06-28] MEDS: Insulin Glargine,Hum.rec.anlog 100 UNIT/ML 10 ML VIAL 10 UNIT SUBCUT (19:21)
[2022-06-29] MEDS: Omeprazole 20 MG CAPSULE.DR PO (06:14)
[2022-06-29 07:56] LABS: Anion Gap 12 (12-20); Blood Urea Nitrogen 23 mg/dL (9-16); Calcium 8.6 mg/dL (8.4-10.2); Carbon Dioxide 24 mmol/L (22-29); Chloride 100 mmol/L (96-108); Creatinine Clr Calc Pharmacy 109.9; Estimated Glomerular Filt Rate > 60; Glucose Random 255 mg/dL (60-115); Potassium 4.3 mmol/L (3.3-5.1); Sodium 132 mmol/L (135-145)
[2022-06-29 08:42] LABS: Glucose, Whole Blood 264 mg/dL (60-115)
[2022-06-29] MEDS: Gabapentin 400 MG CAPSULE 800 MG PO ×3 (09:18→21:14)
[2022-06-29] MEDS: DULoxetine HCl 60 MG CAPSULE.DR PO (09:18)
[2022-06-29] MEDS: Buprenorphine/Naloxone 4/1 mg FILM 1 FILM SUBLINGUAL ×4 (09:18→21:15)
[2022-06-29] MEDS: Cholecalciferol (Vitamin D3) 25 MCG TABLET 50 MCG PO (09:18)
[2022-06-29] MEDS: Magnesium Hydrox/Alum Hydrox 30 ML ORAL.SUSP PO ×2 (09:18→13:11)
[2022-06-29] MEDS: Insulin Lispro 100 UNIT/ML 3 ML VIAL SUBCUT ×4 (09:18→21:16)
[2022-06-29 09:19] VITALS: BP 118/60; PULSE 76; RESP 16; TEMP 36.8; O2SAT 96
[2022-06-29] MEDS: glyBURIDE 5 MG TABLET PO (09:19)
[2022-06-29] MEDS: Fenofibrate 54 MG TABLET PO (09:19)
[2022-06-29] MEDS: QUEtiapine Fumarate 25 MG TABLET PO (09:19)
[2022-06-29] MEDS: Metoprolol Succinate ER 25 MG TAB.ER.24H PO (09:19)
[2022-06-29] MEDS: lisinopriL 5 MG TABLET PO (09:19)
[2022-06-29] MEDS: Loratadine 10 MG TABLET PO (09:19)
[2022-06-29] MEDS: Atorvastatin Calcium 40 MG TABLET PO (09:19)
[2022-06-29] MEDS: metFORMIN HCl 1,000 MG TABLET 1000 MG PO ×2 (09:19→17:30)
[2022-06-29] MEDS: Magnesium Oxide 400 MG TABLET PO (09:19)
--- NOTE | 2022-06-29 10:13 | P.PNPSI_ITS ---
Subjective Subjective Date of Service: 06/29/22 Reason For Visit: SI Subjective Notes: Conditional Voluntary Healthcare Proxy: No Guardianship: No Medical Problems Affecting Mental Status: Yes (diabetes, ) Interim History: Pt slept most of first day here, doesn't feel particularly depressed or suicidal now that he is here- Poor ADLs - Medication Compliance: Yes Side effects from medications: No Attending Groups: Intermittent Review of Systems Acute medical concerns: Yes co left arm pain from swelling- then later cp - no sob no sweating and vss Mental Status Exam Mental Status Exam Narrative: in wheel chair Patient Appearance: Disheveled and Unkempt Patient Orientation: Person, Place, Time and Situation Level of Consciousness: Awake Patient Behavior: Dependent Mood Description: Calm Affect Description: Calm and Appropriate Patient Cognition Impaired: No Ability to Follow Directions: Fair Speech Pattern: Poor Articulation Hallucinations: None Delusions: Not Present Thought Process: Intact Thought Content: positive for Intact, positive for [place] and positive for Goal Oriented Depressive Symptoms: Muscle Tension and Muscle Pain (in arm) Judgement: Fair Diagnostics Vital Signs (24Hr): Vital Signs - 24 hr 06/28/22 13:06 06/28/22 17:49 06/29/22 09:19 Temperature 97.6 F 98.2 F Pulse Rate 87 84 76 Respiratory Rate 16 16 Blood Pressure 106/76 136/62 118/60 Pulse Oximetry 96 96 Oxygen Delivery Method Room Air Room Air BMI result Body Mass Index 35.5 Labs 06/27/22 11:25 06/29/22 07:27 Labs: Laboratory Results - last 48 hr 06/27/22 06/27/22 06/27/22 02:38 11:24 11:25 WBC 5.9 RBC 4.87 Hgb 12.8 L Hct 38.4 L MCV 78.9 L MCH 26.3 L MCHC 33.3 RDW 15.2 Plt Count 267 MPV 9.4 Immature Gran % (Auto) 0.3 Neut % (Auto) 69.3 Lymph % (Auto) 17.9 L [place] % (Auto) 10.1 Eos % (Auto) 1.9 Baso % (Auto) 0.5 Lymph # (Auto) 1.1 L [place] # (Auto) 0.6 Eos # (Auto) 0.1 Baso # (Auto) 0.0 Abs Immat Gran (auto) 0.02 Absolute Neuts (auto) 4.1 Absolute Nucleated RBC 0.000 Nucleated RBC % (auto) 0.0 Sodium Potassium Chloride Carbon Dioxide Anion Gap BUN Creatinine Estim Creat Clear Calc Estimated GFR POC Glucose Random Glucose Fasting Glucose Estimat Average Glucose Hemoglobin A1c % Calcium Total Bilirubin Direct Bilirubin AST ALT Alkaline Phosphatase Total Protein Albumin Triglycerides Cholesterol LDL Cholesterol, Calc HDL Cholesterol Lipase Vitamin B12 Folate TSH Urine Color Yellow Urine Appearance Clear Urine pH 6.0 Ur Specific [place] >= 1.030 H Urine Protein Negative Urine Glucose (UA) >=1000 H Urine Ketones Negative Urine Blood Negative Urine Nitrite Negative Ur Leukocyte Esterase Negative Urine RBC 0-2 Urine WBC 0-5 Ur Squamous Epith Cells 0-2 Urine Bacteria None Seen Hyaline Casts 0-2 Urine Opiates Screen Not Detected Urine Fentanyl Screen Not Detected Ur Barbiturates Screen Not Detected Ur Phencyclidine Scrn Not Detected Ur Amphetamines Screen Not Detected U Benzodiazepines Scrn Not Detected Urine Cocaine Screen POSITIVE H U Marijuana (THC) Screen Not Detected Ethyl Alcohol COVID-19 ([facility]) COVID-19 Clin Com 06/27/22 06/27/22 06/27/22 11:25 11:25 11:25 WBC RBC Hgb Hct MCV MCH MCHC RDW Plt Count MPV Immature Gran % (Auto) Neut % (Auto) Lymph % (Auto) [place] % (Auto) Eos % (Auto) Baso % (Auto) Lymph # (Auto) [place] # (Auto) Eos # (Auto) Baso # (Auto) Abs Immat Gran (auto) Absolute Neuts (auto) Absolute Nucleated RBC Nucleated RBC % (auto) Sodium 132 L Potassium 4.4 Chloride 98 Carbon Dioxide 24 Anion Gap 14 BUN 17 H Creatinine 0.90 Estim Creat Clear Calc 96.5 Estimated GFR > 60 POC Glucose Random Glucose 376 H* Fasting Glucose Estimat Average Glucose Hemoglobin A1c % Calcium 9.5 D Total Bilirubin 0.5 Direct Bilirubin < 0.2 AST 51 H ALT 50 H Alkaline Phosphatase 99 Total Protein 7.2 Albumin 4.4 Triglycerides Cholesterol LDL Cholesterol, Calc HDL Cholesterol Lipase 28 Vitamin B12 Folate TSH Urine Color Urine Appearance Urine pH Ur Specific [place] Urine Protein Urine Glucose (UA) Urine Ketones Urine Blood Urine Nitrite Ur Leukocyte Esterase Urine RBC Urine WBC Ur Squamous Epith Cells Urine Bacteria Hyaline Casts Urine Opiates Screen Urine Fentanyl Screen Ur Barbiturates Screen Ur Phencyclidine Scrn Ur Amphetamines Screen U Benzodiazepines Scrn Urine Cocaine Screen U Marijuana (THC) Screen Ethyl Alcohol < 10 COVID-19 ([facility]) Negative COVID-19 Clin Com See Note 06/27/22 06/28/22 06/28/22 20:00 07:12 07:12 WBC RBC Hgb Hct MCV MCH MCHC RDW Plt Count MPV Immature Gran % (Auto) Neut % (Auto) Lymph % (Auto) [place] % (Auto) Eos % (Auto) Baso % (Auto) Lymph # (Auto) [place] # (Auto) Eos # (Auto) Baso # (Auto) Abs Immat Gran (auto) Absolute Neuts (auto) Absolute Nucleated RBC Nucleated RBC % (auto) Sodium 132 L Potassium 4.5 Chloride 97 Carbon Dioxide 26 Anion Gap 14 BUN 20 H Creatinine 1.08 Estim Creat Clear Calc 80.4 Estimated GFR > 60 POC Glucose 355 H* Random Glucose Fasting Glucose 422 H* Estimat Average Glucose 235 Hemoglobin A1c % 9.8 Calcium 9.3 Total Bilirubin 0.5 Direct Bilirubin AST 72 H ALT 54 H Alkaline Phosphatase 89 Total Protein 6.4 L Albumin 3.9 Triglycerides 254 Cholesterol 157 LDL Cholesterol, Calc 85 HDL Cholesterol 22 Lipase Vitamin B12 738 Folate 10.5 TSH 3.21 Urine Color Urine Appearance Urine pH Ur Specific [place] Urine Protein Urine Glucose (UA) Urine Ketones Urine Blood Urine Nitrite Ur Leukocyte Esterase Urine RBC Urine WBC Ur Squamous Epith Cells Urine Bacteria Hyaline Casts Urine Opiates Screen Urine Fentanyl Screen Ur Barbiturates Screen Ur Phencyclidine Scrn Ur Amphetamines Screen U Benzodiazepines Scrn Urine Cocaine Screen U Marijuana (THC) Screen Ethyl Alcohol COVID-19 ([facility]) COVID-19 Clin Com 06/28/22 06/28/22 06/28/22 12:40 16:24 19:14 WBC RBC Hgb Hct MCV MCH MCHC RDW Plt Count MPV Immature Gran % (Auto) Neut % (Auto) Lymph % (Auto) [place] % (Auto) Eos % (Auto) Baso % (Auto) Lymph # (Auto) [place] # (Auto) Eos # (Auto) Baso # (Auto) Abs Immat Gran (auto) Absolute Neuts (auto) Absolute Nucleated RBC Nucleated RBC % (auto) Sodium Potassium Chloride Carbon Dioxide Anion Gap BUN Creatinine Estim Creat Clear Calc Estimated GFR POC Glucose 232 H 207 H 213 H Random Glucose Fasting Glucose Estimat Average Glucose Hemoglobin A1c % Calcium Total Bilirubin Direct Bilirubin AST ALT Alkaline Phosphatase Total Protein Albumin Triglycerides Cholesterol LDL Cholesterol, Calc HDL Cholesterol Lipase Vitamin B12 Folate TSH Urine Color Urine Appearance Urine pH Ur Specific [place] Urine Protein Urine Glucose (UA) Urine Ketones Urine Blood Urine Nitrite Ur Leukocyte Esterase Urine RBC Urine WBC Ur Squamous Epith Cells Urine Bacteria Hyaline Casts Urine Opiates Screen Urine Fentanyl Screen Ur Barbiturates Screen Ur Phencyclidine Scrn Ur Amphetamines Screen U Benzodiazepines Scrn Urine Cocaine Screen U Marijuana (THC) Screen Ethyl Alcohol COVID-19 ([facility]) COVID-19 [employer] 06/29/22 06/29/22 07:27 08:38 WBC RBC Hgb Hct MCV MCH MCHC RDW Plt Count MPV Immature Gran % (Auto) Neut % (Auto) Lymph % (Auto) [place] % (Auto) Eos % (Auto) Baso % (Auto) Lymph # (Auto) [place] # (Auto) Eos # (Auto) Baso # (Auto) Abs Immat Gran (auto) Absolute Neuts (auto) Absolute Nucleated RBC Nucleated RBC % (auto) Sodium 132 L Potassium 4.3 Chloride 100 Carbon Dioxide 24 Anion Gap 12 BUN 23 H Creatinine 0.79 Estim Creat Clear Calc 109.9 Estimated GFR > 60 POC Glucose 264 H Random Glucose 255 H Fasting Glucose Estimat Average Glucose Hemoglobin A1c % Calcium 8.6 D Total Bilirubin Direct Bilirubin AST ALT Alkaline Phosphatase Total Protein Albumin Triglycerides Cholesterol LDL Cholesterol, Calc HDL Cholesterol Lipase Vitamin B12 Folate TSH Urine Color Urine Appearance Urine pH Ur Specific [place] Urine Protein Urine Glucose (UA) Urine Ketones Urine Blood Urine Nitrite Ur Leukocyte Esterase Urine RBC Urine WBC Ur Squamous Epith Cells Urine Bacteria Hyaline Casts Urine Opiates Screen Urine Fentanyl Screen Ur Barbiturates Screen Ur Phencyclidine Scrn Ur Amphetamines Screen U Benzodiazepines Scrn Urine Cocaine Screen U Marijuana (THC) Screen Ethyl Alcohol COVID-19 ([facility]) COVID-19 [employer] Com Medications Medications Current Medications Acetaminophen (Acetaminophen 325 Mg Tablet) 650 mg PO ONCE PRN PRN Reason: Pain, Moderate (Pain Scale 4-6 Al Hydroxide/Mg Hydroxide (Magnesium Hydrox/Alum Hydrox 30 Ml Oral.Susp) 30 ml PO TIDWM [facility] Last Admin: 06/29/22 09:18 Dose: 30 ml Atorvastatin Calcium (Atorvastatin Calcium 40 Mg Tablet) 40 mg PO DAILY [facility] Last Admin: 06/29/22 09:19 Dose: 40 mg Buprenorphine/Naloxone (Buprenorphine/Naloxone 4/1 Mg Film) 1 film SUBLINGUAL QID [facility] Last Admin: 06/29/22 09:18 Dose: 1 film Docusate Sodium (Docusate Sodium 100 Mg Capsule) 200 mg PO BEDTIME [facility] Last Admin: 06/28/22 19:02 Dose: 200 mg Duloxetine HCl (Duloxetine Hcl 60 Mg Capsule.Dr) 60 mg PO DAILY [facility] Last Admin: 06/29/22 09:18 Dose: 60 mg Fenofibrate (Fenofibrate 54 Mg Tablet) 54 mg PO DAILY [facility] Last Admin: 06/29/22 09:19 Dose: 54 mg Fluticasone Propionate (Fluticasone Propionate Nasal 16 Gm [place]) 1 spray NOSTRIL-B DAILY [facility] Last Admin: 06/29/22 09:19 Dose: Not Given Gabapentin (Gabapentin 400 Mg Capsule) 800 mg PO TID [facility] Last Admin: 06/29/22 09:18 Dose: 800 mg Glucose (Glucose Gel 15 Gm Gel..Gram.) 15 gm PO Q15M PRN; Protocol PRN Reason: per Hypoglycemia Standing Ord. Glyburide (Glyburide 5 Mg Tablet) 5 mg PO DAILY [facility] Last Admin: 06/29/22 09:19 Dose: 5 mg Hydroxyzine HCl (Hydroxyzine Hcl 25 Mg Tablet) 25 mg PO Q6H PRN PRN Reason: Anxiety Insulin Glargine (Insulin Glargine,Hum.Rec.Anlog 100 Unit/Ml 10 Ml Vial) 10 unit SUBCUT BEDTIME [facility] Last Admin: 06/28/22 19:21 Dose: 10 unit Insulin Human Lispro (Insulin Lispro 100 Unit/Ml 3 Ml Vial) 0 unit SUBCUT QIDACHS [facility]; Protocol Last Admin: 06/29/22 09:18 Dose: 6 unit Lamotrigine (Lamotrigine 25 Mg Tablet) 75 mg PO BEDTIME [facility] Last Admin: 06/28/22 19:04 Dose: 75 mg Lisinopril (Lisinopril 5 Mg Tablet) 5 mg PO DAILY [facility]; Protocol Last Admin: 06/29/22 09:19 Dose: 5 mg Loratadine (Loratadine 10 Mg Tablet) 10 mg PO DAILY [facility] Last Admin: 06/29/22 09:19 Dose: 10 mg Magnesium Hydroxide (Milk Of Magnesia 30 Ml Oral.Susp) 30 ml PO DAILY PRN PRN Reason: Constipation Magnesium Oxide (Magnesium Oxide 400 Mg Tablet) 400 mg PO DAILY [facility] Last Admin: 06/29/22 09:19 Dose: 400 mg Metformin HCl (Metformin Hcl 1,000 Mg Tablet) 1,000 mg PO BIDWM [facility] Last Admin: 06/29/22 09:19 Dose: 1,000 mg Metoprolol Succinate (Metoprolol Succinate Er 25 Mg Tab.Er.24h) 25 mg PO DAILY [facility]; Protocol Last Admin: 06/29/22 09:19 Dose: 25 mg Omeprazole (Omeprazole 20 Mg Capsule.Dr) 20 mg PO DAILY@0630 [facility] Last Admin: 06/29/22 06:14 Dose: 20 mg Quetiapine Fumarate (Quetiapine Fumarate 25 Mg Tablet) 25 mg PO DAILY [facility] Last Admin: 06/29/22 09:19 Dose: 25 mg Quetiapine Fumarate (Quetiapine Fumarate 300 Mg Tablet) 300 mg PO BEDTIME [facility] Last Admin: 06/28/22 19:04 Dose: 300 mg Trazodone HCl (Trazodone Hcl 50 Mg Tablet) 50 mg PO BEDTIME MRX1 PRN PRN Reason: Insomnia Vitamin D (Cholecalciferol (Vitamin D3) 25 Mcg Tablet) 50 mcg PO DAILY [facility] Last Admin: 06/29/22 09:18 Dose: 50 mcg Allergies Allergies Allergy/AdvReac Type Severity Reaction Status Date / Time No Known Allergies Allergy Verified 05/31/21 11:24 Assessment & Plan Assessment & Plan (1) Suicidal ideations: Status: Acute Code(s): R45.851 - Suicidal ideations Assessment and Plan: no current specific plan, more hopless and helpless (2) Cocaine use: Status: Acute Code(s): F14.90 - Cocaine use, unspecified, uncomplicated Assessment and Plan: crack spent monthly check on (3) Multifactorial gait disorder: Status: Acute Code(s): R26.89 - Other abnormalities of gait and mobility Assessment and Plan: uses wheel chair due to leg foot pain- (4) MDD (major depressive disorder), recurrent episode, moderate: Status: Chronic Code(s): F33.1 - Major depressive disorder, recurrent, moderate Assessment and Plan: currently on medication was off for last 3 days while using (5) Hyponatremia: Status: Acute Code(s): E87.1 - Hypo-osmolality and hyponatremia Assessment and Plan: we may want to try water restriction and see if it improves Plan resume medications Patient educated on: medical condition Informed Consent: further education needed Reason for contiued inpatient stay Substantial Risk for: med/psych decompensation Time Spent With Patient Time: Total time managing care of this patient today ____ minutes.
--- NOTE | 2022-06-29 11:49 | PC.NURSE ---
pt complains of left arm pain and tenderness. Denies any fall or injury. Swelling noted on left hand. MD notified and aware.
[2022-06-29 12:00] VITALS: BP 110/64; PULSE 79
[2022-06-29] MEDS: Acetaminophen 325 MG TABLET 650 MG PO (12:04)
[2022-06-29] MEDS: hydrOXYzine HCL 25 MG TABLET PO (12:04)
[2022-06-29 12:57] LABS: Glucose, Whole Blood 224 mg/dL (60-115)
[2022-06-29 13:00] VITALS: BP 106/76; PULSE 86; RESP 18; TEMP 36.7; O2SAT 96
[2022-06-29 16:45] VITALS: BP 100/56; PULSE 72; TEMP 36.3
[2022-06-29 17:16] LABS: Glucose, Whole Blood 174 mg/dL (60-115)
[2022-06-29] MEDS: lamoTRIgine 25 MG TABLET 75 MG PO (21:13)
[2022-06-29] MEDS: Docusate Sodium 100 MG CAPSULE 200 MG PO (21:13)
[2022-06-29] MEDS: QUEtiapine Fumarate 300 MG TABLET PO (21:14)
[2022-06-29] MEDS: Insulin Glargine,Hum.rec.anlog 100 UNIT/ML 10 ML VIAL 10 UNIT SUBCUT (21:17)
[2022-06-29 21:30] LABS: Glucose, Whole Blood 209 mg/dL (60-115)
[2022-06-30] MEDS: Omeprazole 20 MG CAPSULE.DR PO (06:06)
[2022-06-30 08:03] LABS: Glucose, Whole Blood 193 mg/dL (60-115)
[2022-06-30] MEDS: Insulin Lispro 100 UNIT/ML 3 ML VIAL SUBCUT ×4 (08:56→20:25)
[2022-06-30] MEDS: Loratadine 10 MG TABLET PO (08:57)
[2022-06-30] MEDS: Metoprolol Succinate ER 25 MG TAB.ER.24H PO (08:57)
[2022-06-30] MEDS: DULoxetine HCl 60 MG CAPSULE.DR PO (08:57)
[2022-06-30] MEDS: QUEtiapine Fumarate 25 MG TABLET PO (08:57)
[2022-06-30] MEDS: glyBURIDE 5 MG TABLET PO (08:57)
[2022-06-30] MEDS: Magnesium Hydrox/Alum Hydrox 30 ML ORAL.SUSP PO ×3 (08:57→17:19)
[2022-06-30] MEDS: lisinopriL 5 MG TABLET PO (08:58)
[2022-06-30] MEDS: Magnesium Oxide 400 MG TABLET PO (08:58)
[2022-06-30] MEDS: metFORMIN HCl 1,000 MG TABLET 1000 MG PO ×2 (08:58→17:19)
[2022-06-30] MEDS: Fenofibrate 54 MG TABLET PO (08:58)
[2022-06-30] MEDS: Atorvastatin Calcium 40 MG TABLET PO (08:58)
[2022-06-30] MEDS: Gabapentin 400 MG CAPSULE 800 MG PO ×3 (08:58→20:23)
[2022-06-30 09:00] VITALS: BP 125/63; PULSE 76; RESP 14; TEMP 36.2; O2SAT 95
[2022-06-30] MEDS: Cholecalciferol (Vitamin D3) 25 MCG TABLET 50 MCG PO (09:23)
[2022-06-30] MEDS: Buprenorphine/Naloxone 4/1 mg FILM 1 FILM SUBLINGUAL ×4 (09:24→20:23)
--- NOTE | 2022-06-30 10:18 | HO.PSYCHPN ---
Subjective Subjective Date of Service: 06/30/22 Reason For Visit: SI Interim History: met with patient; discussed in teams; reviewed weekend notes Patient said that he is doing better; depression mostly resolved and no SI. Agrees to continue with current medication regimen. Says he would really like a program. [employer] [place] discussed how at all previous admissions he said he wanted a program and then at the last minute decided not to go. Patient says he knows any does not like programs but he really needs to go. Will continue to consider Patient did acknowledge that he did not attend any follow-up after his last discharge. Mental Status Exam Mental Status Exam Narrative: Pt is alert; oriented; behavior is cooperative, calm; bald head, scruffy perez and marginal hygiene; mood is described as better and affect congruent; eye contact appropriate; Speech is hard to understand due to speech impediment or mumbling which is baseline; otherwise, normal rate, volume and prosody and not pressured; no psychomotor agitation/retardation present; thought process goal directed; Thought content is on treatment, changing living situation; denies SI or HI; no AVH and There is no evidence of perceptual disturbance. Patients insight and judgment are fair and adequate Diagnostics Vital Signs (24Hr): Vital Signs - 24 hr 06/29/22 13:00 06/29/22 12:00 06/29/22 16:45 Temperature 98.1 F 97.4 F Pulse Rate 86 79 72 Respiratory Rate 18 Blood Pressure 106/76 110/64 100/56 L Pulse Oximetry 96 Oxygen Delivery Method Room Air 06/30/22 09:00 Temperature 97.2 F Pulse Rate 76 Respiratory Rate 14 Blood Pressure 125/63 Pulse Oximetry 95 Oxygen Delivery Method Room Air BMI result Body Mass Index 35.5 Labs 06/27/22 11:25 06/29/22 07:27 Labs: Laboratory Results - last 48 hr 06/28/22 06/28/22 06/28/22 12:40 16:24 19:14 Sodium Potassium Chloride Carbon Dioxide Anion Gap BUN Creatinine Estim Creat Clear Calc Estimated GFR POC Glucose 232 H 207 H 213 H Random Glucose Calcium 06/29/22 06/29/22 06/29/22 07:27 08:38 12:53 Sodium 132 L Potassium 4.3 Chloride 100 Carbon Dioxide 24 Anion Gap 12 BUN 23 H Creatinine 0.79 Estim Creat Clear Calc 109.9 Estimated GFR > 60 POC Glucose 264 H 224 H Random Glucose 255 H Calcium 8.6 D 06/29/22 06/29/22 06/30/22 17:07 21:05 07:59 Sodium Potassium Chloride Carbon Dioxide Anion Gap BUN Creatinine Estim Creat Clear Calc Estimated GFR POC Glucose 174 H 209 H 193 H Random Glucose Calcium Medications Medications Current Medications Acetaminophen (Acetaminophen 325 Mg Tablet) 650 mg PO ONCE PRN PRN Reason: Pain, Moderate (Pain Scale 4-6 Last Admin: 06/29/22 12:04 Dose: 650 mg Al Hydroxide/Mg Hydroxide (Magnesium Hydrox/Alum Hydrox 30 Ml Oral.Susp) 30 ml PO TIDWM [facility] Last Admin: 06/30/22 08:57 Dose: 30 ml Atorvastatin Calcium (Atorvastatin Calcium 40 Mg Tablet) 40 mg PO DAILY [facility] Last Admin: 06/30/22 08:58 Dose: 40 mg Buprenorphine/Naloxone (Buprenorphine/Naloxone 4/1 Mg Film) 1 film SUBLINGUAL QID [facility] Last Admin: 06/30/22 09:24 Dose: 1 film Docusate Sodium (Docusate Sodium 100 Mg Capsule) 200 mg PO BEDTIME [facility] Last Admin: 06/29/22 21:13 Dose: 200 mg Duloxetine HCl (Duloxetine Hcl 60 Mg Capsule.Dr) 60 mg PO DAILY [facility] Last Admin: 06/30/22 08:57 Dose: 60 mg Fenofibrate (Fenofibrate 54 Mg Tablet) 54 mg PO DAILY [facility] Last Admin: 06/30/22 08:58 Dose: 54 mg Fluticasone Propionate (Fluticasone Propionate Nasal 16 Gm [place]) 1 spray NOSTRIL-B DAILY [facility] Last Admin: 06/30/22 09:40 Dose: Not Given Gabapentin (Gabapentin 400 Mg Capsule) 800 mg PO TID [facility] Last Admin: 06/30/22 08:58 Dose: 800 mg Glucose (Glucose Gel 15 Gm Gel..Gram.) 15 gm PO Q15M PRN; Protocol PRN Reason: per Hypoglycemia Standing Ord. Glyburide (Glyburide 5 Mg Tablet) 5 mg PO DAILY [facility] Last Admin: 06/30/22 08:57 Dose: 5 mg Hydroxyzine HCl (Hydroxyzine Hcl 25 Mg Tablet) 25 mg PO Q6H PRN PRN Reason: Anxiety Last Admin: 06/29/22 12:04 Dose: 25 mg Insulin Glargine (Insulin Glargine,Hum.Rec.Anlog 100 Unit/Ml 10 Ml Vial) 10 unit SUBCUT BEDTIME [facility] Last Admin: 06/29/22 21:17 Dose: 10 unit Insulin Human Lispro (Insulin Lispro 100 Unit/Ml 3 Ml Vial) 0 unit SUBCUT QIDACHS [facility]; Protocol Last Admin: 06/30/22 08:56 Dose: 2 unit Lamotrigine (Lamotrigine 25 Mg Tablet) 75 mg PO BEDTIME [facility] Last Admin: 06/29/22 21:13 Dose: 75 mg Lisinopril (Lisinopril 5 Mg Tablet) 5 mg PO DAILY [facility]; Protocol Last Admin: 06/30/22 08:58 Dose: 5 mg Loratadine (Loratadine 10 Mg Tablet) 10 mg PO DAILY [facility] Last Admin: 06/30/22 08:57 Dose: 10 mg Magnesium Hydroxide (Milk Of Magnesia 30 Ml Oral.Susp) 30 ml PO DAILY PRN PRN Reason: Constipation Magnesium Oxide (Magnesium Oxide 400 Mg Tablet) 400 mg PO DAILY [facility] Last Admin: 06/30/22 08:58 Dose: 400 mg Metformin HCl (Metformin Hcl 1,000 Mg Tablet) 1,000 mg PO BIDWM [facility] Last Admin: 06/30/22 08:58 Dose: 1,000 mg Metoprolol Succinate (Metoprolol Succinate Er 25 Mg Tab.Er.24h) 25 mg PO DAILY [facility]; Protocol Last Admin: 06/30/22 08:57 Dose: 25 mg Omeprazole (Omeprazole 20 Mg Capsule.Dr) 20 mg PO DAILY@0630 [facility] Last Admin: 06/30/22 06:06 Dose: 20 mg Quetiapine Fumarate (Quetiapine Fumarate 25 Mg Tablet) 25 mg PO DAILY [facility] Last Admin: 06/30/22 08:57 Dose: 25 mg Quetiapine Fumarate (Quetiapine Fumarate 300 Mg Tablet) 300 mg PO BEDTIME [facility] Last Admin: 06/29/22 21:14 Dose: 300 mg Trazodone HCl (Trazodone Hcl 50 Mg Tablet) 50 mg PO BEDTIME MRX1 PRN PRN Reason: Insomnia Vitamin D (Cholecalciferol (Vitamin D3) 25 Mcg Tablet) 50 mcg PO DAILY [facility] Last Admin: 06/30/22 09:23 Dose: 50 mcg Allergies Allergies Allergy/AdvReac Type Severity Reaction Status Date / Time No Known Allergies Allergy Verified 05/31/21 11:24 Assessment & Plan Assessment & Plan (1) MDD (major depressive disorder), recurrent episode, moderate: Status: Chronic Code(s): F33.1 - Major depressive disorder, recurrent, moderate Assessment and Plan: currently on medication was off for last 3 days while using (2) Cocaine use: Status: Acute Code(s): F14.90 - Cocaine use, unspecified, uncomplicated Assessment and Plan: crack spent monthly check on (3) Multifactorial gait disorder: Status: Acute Code(s): R26.89 - Other abnormalities of gait and mobility Assessment and Plan: uses wheel chair due to leg foot pain- Plan Pt is a 62 yo Male with a history of MDD, chronic back and knee pain, ambulates in a wheelchair and long history of crack cocaine abuse who now presents for depression with SI in the face of relapsing on crack cocaine and non-adherence with medication or follow-up. Hospital course: 07/01 patient has been restarted on home medications. SI resolved and depression has abated. He remains ambivalent about treatment saying he does not like it but knows he needs it. Plan: Q 15 minutes One-to-one due to wheelchair Home medications restarted ? Patient educated on: diagnosis, medication risk/benefits, substance abuse and therapeutic strategies Informed Consent: understands Reason for contiued inpatient stay Substantial Risk for: rapid decompensation and med/psych decompensation Time Spent With Patient Time: Total time managing care of this patient today ____ minutes.
[2022-06-30] MEDS: Nicotine 21 MG PATCH.TD24 TRANSDERMA (11:32)
[2022-06-30 11:42] LABS: Glucose, Whole Blood 226 mg/dL (60-115)
[2022-06-30 17:10] LABS: Glucose, Whole Blood 215 mg/dL (60-115)
[2022-06-30 17:15] VITALS: BP 105/63; PULSE 76; TEMP 36.6
[2022-06-30] MEDS: Docusate Sodium 100 MG CAPSULE 200 MG PO (20:22)
[2022-06-30] MEDS: QUEtiapine Fumarate 300 MG TABLET PO (20:23)
[2022-06-30] MEDS: Insulin Glargine,Hum.rec.anlog 100 UNIT/ML 10 ML VIAL 10 UNIT SUBCUT (20:25)
[2022-06-30 21:06] LABS: Glucose, Whole Blood 241 mg/dL (60-115)
[2022-07-01] MEDS: Omeprazole 20 MG CAPSULE.DR PO (06:24)
[2022-07-01 08:23] LABS: Glucose, Whole Blood 119 mg/dL (60-115)
[2022-07-01 08:41] VITALS: BP 141/73; PULSE 80; RESP 18; TEMP 36.3; O2SAT 96
[2022-07-01] MEDS: Nicotine 21 MG PATCH.TD24 TRANSDERMA (08:43)
[2022-07-01] MEDS: Gabapentin 400 MG CAPSULE 800 MG PO ×3 (08:43→20:56)
[2022-07-01] MEDS: Magnesium Hydrox/Alum Hydrox 30 ML ORAL.SUSP PO ×3 (08:44→17:39)
[2022-07-01] MEDS: Metoprolol Succinate ER 25 MG TAB.ER.24H PO (08:44)
[2022-07-01] MEDS: lisinopriL 5 MG TABLET PO (08:45)
[2022-07-01] MEDS: Loratadine 10 MG TABLET PO (08:45)
[2022-07-01] MEDS: DULoxetine HCl 60 MG CAPSULE.DR PO (08:45)
[2022-07-01] MEDS: Cholecalciferol (Vitamin D3) 25 MCG TABLET 50 MCG PO (08:45)
[2022-07-01] MEDS: Fenofibrate 54 MG TABLET PO (08:45)
[2022-07-01] MEDS: Atorvastatin Calcium 40 MG TABLET PO (08:45)
[2022-07-01] MEDS: glyBURIDE 5 MG TABLET PO (08:45)
[2022-07-01] MEDS: metFORMIN HCl 1,000 MG TABLET 1000 MG PO ×2 (08:45→17:39)
[2022-07-01] MEDS: QUEtiapine Fumarate 25 MG TABLET PO (08:45)
[2022-07-01] MEDS: Magnesium Oxide 400 MG TABLET PO (08:46)
[2022-07-01] MEDS: Buprenorphine/Naloxone 4/1 mg FILM 1 FILM SUBLINGUAL ×4 (09:36→21:34)
--- NOTE | 2022-07-01 11:27 | P.PNPSI_ITS ---
Subjective Subjective Date of Service: 07/01/22 Reason For Visit: SI Interim History: Met with patient; discussed in teams Patient reports he is doing okay; no SI, depression better and he agrees to continue with current medication regimen. Patient says that he is at risk for losing his apartment and that is why he wants to go to a program so it will look good in housing court; he adds that he wants to go to a program for himself as well. He also thinks that he needs a rep payee otherwise is certainly to a face eviction as he is behind in about 3 months rent due to spending his money on cocaine. Patient asked for Suboxone to be increased to 6 mg q.i.d. for continued chronic pain Mental Status Exam Mental Status Exam Narrative: Pt is alert; oriented; behavior is cooperative, calm; bald head, scruffy perez and marginal hygiene; mood is described as better and affect congruent, bright; eye contact appropriate; Speech is hard to understand due to speech impediment or mumbling which is baseline; otherwise, normal rate, volume and prosody and not pressured; no psychomotor agitation/retardation present; thought process goal directed; Thought content is on treatment, changing living situation; denies SI or HI; no AVH and There is no evidence of perceptual di sturbance. Patients insight and judgment are fair and adequate Diagnostics Vital Signs (24Hr): Vital Signs - 24 hr 06/30/22 17:15 07/01/22 08:41 Temperature 97.8 F 97.3 F Pulse Rate 76 80 Respiratory Rate 18 Blood Pressure 105/63 141/73 H Pulse Oximetry 96 Oxygen Delivery Method Room Air BMI result Body Mass Index 35.5 Labs 06/27/22 11:25 06/29/22 07:27 Labs: Laboratory Results - last 48 hr 06/29/22 06/29/22 06/29/22 12:53 17:07 21:05 POC Glucose 224 H 174 H 209 H 06/30/22 06/30/22 06/30/22 07:59 11:37 17:05 POC Glucose 193 H 226 H 215 H 06/30/22 07/01/22 20:15 08:18 POC Glucose 241 H 119 H Medications Medications Current Medications Acetaminophen (Acetaminophen 325 Mg Tablet) 650 mg PO ONCE PRN PRN Reason: Pain, Moderate (Pain Scale 4-6 Last Admin: 06/29/22 12:04 Dose: 650 mg Al Hydroxide/Mg Hydroxide (Magnesium Hydrox/Alum Hydrox 30 Ml Oral.Susp) 30 ml PO TIDWM [facility] Last Admin: 07/01/22 08:44 Dose: 30 ml Atorvastatin Calcium (Atorvastatin Calcium 40 Mg Tablet) 40 mg PO DAILY [facility] Last Admin: 07/01/22 08:45 Dose: 40 mg Buprenorphine/Naloxone (Buprenorphine/Naloxone 4/1 Mg Film) 1 film SUBLINGUAL QID [facility] Last Admin: 07/01/22 09:36 Dose: 1 film Docusate Sodium (Docusate Sodium 100 Mg Capsule) 200 mg PO BEDTIME [facility] Last Admin: 06/30/22 20:22 Dose: 200 mg Duloxetine HCl (Duloxetine Hcl 60 Mg Capsule.Dr) 60 mg PO DAILY [facility] Last Admin: 07/01/22 08:45 Dose: 60 mg Fenofibrate (Fenofibrate 54 Mg Tablet) 54 mg PO DAILY [facility] Last Admin: 07/01/22 08:45 Dose: 54 mg Fluticasone Propionate (Fluticasone Propionate Nasal 16 Gm [place]) 1 spray NOSTRIL-B DAILY [facility] Last Admin: 07/01/22 08:46 Dose: Not Given Gabapentin (Gabapentin 400 Mg Capsule) 800 mg PO TID [facility] Last Admin: 07/01/22 08:43 Dose: 800 mg Glucose (Glucose Gel 15 Gm Gel..Gram.) 15 gm PO Q15M PRN; Protocol PRN Reason: per Hypoglycemia Standing Ord. Glyburide (Glyburide 5 Mg Tablet) 5 mg PO DAILY [facility] Last Admin: 07/01/22 08:45 Dose: 5 mg Hydroxyzine HCl (Hydroxyzine Hcl 25 Mg Tablet) 25 mg PO Q6H PRN PRN Reason: Anxiety Last Admin: 06/29/22 12:04 Dose: 25 mg Insulin Glargine (Insulin Glargine,Hum.Rec.Anlog 100 Unit/Ml 10 Ml Vial) 10 unit SUBCUT BEDTIME [facility] Last Admin: 06/30/22 20:25 Dose: 10 unit Insulin Human Lispro (Insulin Lispro 100 Unit/Ml 3 Ml Vial) 0 unit SUBCUT QIDACHS [facility]; Protocol Last Admin: 07/01/22 08:24 Dose: Not Given Lisinopril (Lisinopril 5 Mg Tablet) 5 mg PO DAILY [facility]; Protocol Last Admin: 07/01/22 08:45 Dose: 5 mg Loratadine (Loratadine 10 Mg Tablet) 10 mg PO DAILY [facility] Last Admin: 07/01/22 08:45 Dose: 10 mg Magnesium Hydroxide (Milk Of Magnesia 30 Ml Oral.Susp) 30 ml PO DAILY PRN PRN Reason: Constipation Magnesium Oxide (Magnesium Oxide 400 Mg Tablet) 400 mg PO DAILY [facility] Last Admin: 07/01/22 08:46 Dose: 400 mg Metformin HCl (Metformin Hcl 1,000 Mg Tablet) 1,000 mg PO BIDWM [facility] Last Admin: 07/01/22 08:45 Dose: 1,000 mg Metoprolol Succinate (Metoprolol Succinate Er 25 Mg Tab.Er.24h) 25 mg PO DAILY [facility]; Protocol Last Admin: 07/01/22 08:44 Dose: 25 mg Nicotine (Nicotine 21 Mg Patch.Td24) 21 mg TRANSDERMA DAILY [facility] Last Admin: 07/01/22 08:43 Dose: 21 mg Omeprazole (Omeprazole 20 Mg Capsule.Dr) 20 mg PO DAILY@0630 [facility] Last Admin: 07/01/22 06:24 Dose: 20 mg Quetiapine Fumarate (Quetiapine Fumarate 25 Mg Tablet) 25 mg PO DAILY [facility] Last Admin: 07/01/22 08:45 Dose: 25 mg Quetiapine Fumarate (Quetiapine Fumarate 300 Mg Tablet) 300 mg PO BEDTIME [facility] Last Admin: 06/30/22 20:23 Dose: 300 mg Trazodone HCl (Trazodone Hcl 50 Mg Tablet) 50 mg PO BEDTIME MRX1 PRN PRN Reason: Insomnia Vitamin D (Cholecalciferol (Vitamin D3) 25 Mcg Tablet) 50 mcg PO DAILY [facility] Last Admin: 07/01/22 08:45 Dose: 50 mcg Allergies Allergies Allergy/AdvReac Type Severity Reaction Status Date / Time No Known Allergies Allergy Verified 05/31/21 11:24 Assessment & Plan Assessment & Plan (1) MDD (major depressive disorder), recurrent episode, moderate: Status: Chronic Code(s): F33.1 - Major depressive disorder, recurrent, moderate Assessment and Plan: currently on medication was off for last 3 days while using (2) Cocaine use: Status: Acute Code(s): F14.90 - Cocaine use, unspecified, uncomplicated Assessment and Plan: crack spent monthly check on (3) Multifactorial gait disorder: Status: Acute Code(s): R26.89 - Other abnormalities of gait and mobility Assessment and Plan: uses wheel chair due to leg foot pain- Plan Pt is a 62 yo Male with a history of MDD, chronic back and knee pain, ambulates in a wheelchair and long history of crack cocaine abuse who now presents for depression with SI in the face of relapsing on crack cocaine and non-adherence with medication or follow-up. Hospital course: 07/01 patient has been restarted on home medications. SI resolved and depression has abated. He remains ambivalent about treatment saying he does not like it but knows he needs it. 07/02 depression, SI fully resolved; patient appropriately joking with staff and peers. Agrees to continue on current regimen; agrees to discontinue Lamictal since he is not consistently adherent. Plan: Q 15 minutes One-to-one due to wheelchair Increase to Buprenorphine/Naloxone (Buprenorphine/Naloxone 6/1 Mg Film)? 1 film SUBLINGUAL QID [facility] Duloxetine HCl (Duloxetine Hcl 60 Mg Capsule.)? 60 mg PO DAILY [facility] Gabapentin (Gabapentin 400 Mg Capsule)? 800 mg PO TID [facility] Quetiapine Fumarate (Quetiapine Fumarate 25 Mg Tablet)? 25 mg PO DAILY [facility] Quetiapine Fumarate (Quetiapine Fumarate 300 Mg Tablet)? 300 mg PO BEDTIME [facility] Trazodone HCl (Trazodone Hcl 50 Mg Tablet)? 50 mg PO BEDTIME MRX1 PRN Patient educated on: diagnosis, medication risk/benefits, substance abuse and therapeutic strategies Informed Consent: understands Reason for contiued inpatient stay Substantial Risk for: stable for discharge Time Spent With Patient Time: Total time managing care of this patient today ____ minutes.
[2022-07-01 12:07] LABS: Glucose, Whole Blood 188 mg/dL (60-115)
[2022-07-01] MEDS: Insulin Lispro 100 UNIT/ML 3 ML VIAL SUBCUT ×2 (12:18→17:56)
[2022-07-01 16:41] VITALS: BP 150/75; PULSE 83; RESP 18; TEMP 36.7; O2SAT 95
[2022-07-01 16:58] LABS: Glucose, Whole Blood 210 mg/dL (60-115)
[2022-07-01] MEDS: Buprenorphine/Naloxone 2/0.5mg FILM 1 FILM SUBLINGUAL ×2 (18:14→21:35)
[2022-07-01 20:30] VITALS: BP 144/81; PULSE 77; TEMP 36.2; O2SAT 96
[2022-07-01 20:52] LABS: Glucose, Whole Blood 134 mg/dL (60-115)
[2022-07-01] MEDS: Insulin Glargine,Hum.rec.anlog 100 UNIT/ML 10 ML VIAL 10 UNIT SUBCUT (20:55)
[2022-07-01] MEDS: Docusate Sodium 100 MG CAPSULE 200 MG PO (20:59)
[2022-07-01] MEDS: QUEtiapine Fumarate 300 MG TABLET PO (21:03)
[2022-07-02] MEDS: Nicotine 21 MG PATCH.TD24 TRANSDERMA (08:14)
[2022-07-02] MEDS: glyBURIDE 5 MG TABLET PO (08:15)
[2022-07-02] MEDS: Fenofibrate 54 MG TABLET PO (08:15)
[2022-07-02] MEDS: Magnesium Hydrox/Alum Hydrox 30 ML ORAL.SUSP PO ×3 (08:15→17:17)
[2022-07-02] MEDS: DULoxetine HCl 60 MG CAPSULE.DR PO (08:16)
[2022-07-02] MEDS: metFORMIN HCl 1,000 MG TABLET 1000 MG PO ×2 (08:16→17:18)
[2022-07-02] MEDS: Gabapentin 400 MG CAPSULE 800 MG PO ×3 (08:16→23:20)
[2022-07-02] MEDS: Metoprolol Succinate ER 25 MG TAB.ER.24H PO (08:16)
[2022-07-02] MEDS: QUEtiapine Fumarate 25 MG TABLET PO (08:16)
[2022-07-02] MEDS: Loratadine 10 MG TABLET PO (08:16)
[2022-07-02] MEDS: Omeprazole 20 MG CAPSULE.DR PO (08:16)
[2022-07-02] MEDS: Atorvastatin Calcium 40 MG TABLET PO (08:17)
[2022-07-02] MEDS: Cholecalciferol (Vitamin D3) 25 MCG TABLET 50 MCG PO (08:17)
[2022-07-02] MEDS: lisinopriL 5 MG TABLET PO (08:17)
[2022-07-02] MEDS: Magnesium Oxide 400 MG TABLET PO (08:18)
[2022-07-02 08:25] LABS: Glucose, Whole Blood 178 mg/dL (60-115)
[2022-07-02] MEDS: Insulin Lispro 100 UNIT/ML 3 ML VIAL SUBCUT ×4 (08:28→23:45)
[2022-07-02 09:00] VITALS: BP 116/55; PULSE 72; TEMP 36.1; O2SAT 95
[2022-07-02] MEDS: Buprenorphine/Naloxone 2/0.5mg FILM 1 FILM SUBLINGUAL ×4 (09:29→23:19)
[2022-07-02] MEDS: Buprenorphine/Naloxone 4/1 mg FILM 1 FILM SUBLINGUAL ×4 (09:29→23:19)
[2022-07-02] MEDS: polyethylene glycoL 3350 17 GM POWD.PACK PO (10:56)
[2022-07-02 12:06] LABS: Glucose, Whole Blood 236 mg/dL (60-115)
--- NOTE | 2022-07-02 13:50 | P.PNPSI_ITS ---
Subjective Subjective Date of Service: 07/02/22 Reason For Visit: SI Interim History: Met with patient; discussed in teams. Social Work talked with patient's medical case manager at [facility] and display card writer and psychologist social met with patient together. Patient remains good mood, no SI, future oriented and putting together plan for continued sobriety and managing his housing situation. Patient reports feeling help from increased Suboxone. Mental Status Exam Mental Status Exam Narrative: Pt is alert; oriented; behavior is cooperative, calm; bald head, scruffy perez and marginal hygiene; mood is described as better and affect congruent, bright; eye contact appropriate; Speech is hard to understand due to speech impediment or mumbling which is baseline; otherwise, normal rate, volume and prosody and not pressured; no psychomotor agitation/retardation present; thought process goal directed; Thought content is on treatment, changing living situation; denies SI or HI; no AVH and There is no evidence of perceptual disturbance. Patients insight and judgment are fair and adequate Diagnostics Vital Signs (24Hr): Vital Signs - 24 hr 07/01/22 16:41 07/01/22 20:30 07/02/22 09:00 Temperature 98.0 F 97.2 F 97.0 F Pulse Rate 83 77 72 Respiratory Rate 18 Blood Pressure 150/75 H 144/81 H 116/55 L Pulse Oximetry 95 96 95 Oxygen Delivery Method Room Air Room Air Room Air BMI result Body Mass Index 35.5 Labs 06/27/22 11:25 06/29/22 07:27 Labs: Laboratory Results - last 48 hr 06/30/22 06/30/22 07/01/22 17:05 20:15 08:18 POC Glucose 215 H 241 H 119 H 07/01/22 07/01/22 07/01/22 12:01 16:54 20:47 POC Glucose 188 H 210 H 134 H 07/02/22 07/02/22 08:01 12:02 POC Glucose 178 H 236 H Medications Medications Current Medications Acetaminophen (Acetaminophen 325 Mg Tablet) 650 mg PO ONCE PRN PRN Reason: Pain, Moderate (Pain Scale 4-6 Last Admin: 06/29/22 12:04 Dose: 650 mg Al Hydroxide/Mg Hydroxide (Magnesium Hydrox/Alum Hydrox 30 Ml Oral.Susp) 30 ml PO TIDWM [facility] Last Admin: 07/02/22 12:49 Dose: 30 ml Atorvastatin Calcium (Atorvastatin Calcium 40 Mg Tablet) 40 mg PO DAILY [facility] Last Admin: 07/02/22 08:17 Dose: 40 mg Buprenorphine/Naloxone (Buprenorphine/Naloxone 4/1 Mg Film) 1 film SUBLINGUAL QID [facility] Last Admin: 07/02/22 13:31 Dose: 1 film Buprenorphine/Naloxone (Buprenorphine/Naloxone 2/0.5mg Film) 1 film SUBLINGUAL QID [facility] Last Admin: 07/02/22 13:31 Dose: 1 film Docusate Sodium (Docusate Sodium 100 Mg Capsule) 200 mg PO BEDTIME [facility] Last Admin: 07/01/22 20:59 Dose: 200 mg Duloxetine HCl (Duloxetine Hcl 60 Mg Capsule.Dr) 60 mg PO DAILY [facility] Last Admin: 07/02/22 08:16 Dose: 60 mg Fenofibrate (Fenofibrate 54 Mg Tablet) 54 mg PO DAILY [facility] Last Admin: 07/02/22 08:15 Dose: 54 mg Fluticasone Propionate (Fluticasone Propionate Nasal 16 Gm [place]) 1 spray NOSTRIL-B DAILY [facility] Last Admin: 07/02/22 10:06 Dose: Not Given Gabapentin (Gabapentin 400 Mg Capsule) 800 mg PO TID [facility] Last Admin: 07/02/22 08:16 Dose: 800 mg Glucose (Glucose Gel 15 Gm Gel..Gram.) 15 gm PO Q15M PRN; Protocol PRN Reason: per Hypoglycemia Standing Ord. Glyburide (Glyburide 5 Mg Tablet) 5 mg PO DAILY [facility] Last Admin: 07/02/22 08:15 Dose: 5 mg Hydroxyzine HCl (Hydroxyzine Hcl 25 Mg Tablet) 25 mg PO Q6H PRN PRN Reason: Anxiety Last Admin: 06/29/22 12:04 Dose: 25 mg Insulin Glargine (Insulin Glargine,Hum.Rec.Anlog 100 Unit/Ml 10 Ml Vial) 10 unit SUBCUT BEDTIME [facility] Last Admin: 07/01/22 20:55 Dose: 10 unit Insulin Human Lispro (Insulin Lispro 100 Unit/Ml 3 Ml Vial) 0 unit SUBCUT QIDACHS [facility]; Protocol Last Admin: 07/02/22 12:42 Dose: 4 unit Lisinopril (Lisinopril 5 Mg Tablet) 5 mg PO DAILY [facility]; Protocol Last Admin: 07/02/22 08:17 Dose: 5 mg Loratadine (Loratadine 10 Mg Tablet) 10 mg PO DAILY [facility] Last Admin: 07/02/22 08:16 Dose: 10 mg Magnesium Hydroxide (Milk Of Magnesia 30 Ml Oral.Susp) 30 ml PO DAILY PRN PRN Reason: Constipation Magnesium Oxide (Magnesium Oxide 400 Mg Tablet) 400 mg PO DAILY [facility] Last Admin: 07/02/22 08:18 Dose: 400 mg Metformin HCl (Metformin Hcl 1,000 Mg Tablet) 1,000 mg PO BIDWM [facility] Last Admin: 07/02/22 08:16 Dose: 1,000 mg Metoprolol Succinate (Metoprolol Succinate Er 25 Mg Tab.Er.24h) 25 mg PO DAILY [facility]; Protocol Last Admin: 07/02/22 08:16 Dose: 25 mg Nicotine (Nicotine 21 Mg Patch.Td24) 21 mg TRANSDERMA DAILY [facility] Last Admin: 07/02/22 08:14 Dose: 21 mg Omeprazole (Omeprazole 20 Mg Capsule.Dr) 20 mg PO DAILY@0630 [facility] Last Admin: 07/02/22 08:16 Dose: 20 mg Polyethylene Glycol (Polyethylene Glycol 3350 17 Gm Powd.Pack) 17 gm PO DAILY [facility] Quetiapine Fumarate (Quetiapine Fumarate 25 Mg Tablet) 25 mg PO DAILY [facility] Last Admin: 07/02/22 08:16 Dose: 25 mg Quetiapine Fumarate (Quetiapine Fumarate 300 Mg Tablet) 300 mg PO BEDTIME [facility] Last Admin: 07/01/22 21:03 Dose: 300 mg Trazodone HCl (Trazodone Hcl 50 Mg Tablet) 50 mg PO BEDTIME MRX1 PRN PRN Reason: Insomnia Vitamin D (Cholecalciferol (Vitamin D3) 25 Mcg Tablet) 50 mcg PO DAILY [facility] Last Admin: 07/02/22 08:17 Dose: 50 mcg Allergies Allergies Allergy/AdvReac Type Severity Reaction Status Date / Time No Known Allergies Allergy Verified 05/31/21 11:24 Assessment & Plan Assessment & Plan (1) MDD (major depressive disorder), recurrent episode, moderate: Status: Chronic Code(s): F33.1 - Major depressive disorder, recurrent, moderate Assessment and Plan: currently on medication was off for last 3 days while using (2) Cocaine use: Status: Acute Code(s): F14.90 - Cocaine use, unspecified, uncomplicated Assessment and Plan: crack spent monthly check on (3) Multifactorial gait disorder: Status: Acute Code(s): R26.89 - Other abnormalities of gait and mobility Assessment and Plan: uses wheel chair due to leg foot pain- Plan Pt is a 62 yo Male with a history of MDD, chronic back and knee pain, ambulates in a wheelchair and long history of crack cocaine abuse who now presents for d epression with SI in the face of relapsing on crack cocaine and non-adherence with medication or follow-up. Hospital course: 07/01 patient has been restarted on home medications. SI resolved and depression has abated. He remains ambivalent about treatment saying he does not like it but knows he needs it. 07/02 depression, SI fully resolved; patient appropriately joking with staff and peers. Agrees to continue on current regimen; agrees to discontinue Lamictal since he is not consistently adherent. 07/03 patient remains improved; appreciates increase Suboxone; no other changes to current regimen. Discussed with social work and will proceed with dispo planning. Plan: Q 15 minutes One-to-one due to wheelchair Increase to Buprenorphine/Naloxone (Buprenorphine/Naloxone 6/1 Mg Film)? 1 film SUBLINGUAL QID [facility] Duloxetine HCl (Duloxetine Hcl 60 Mg Capsule.)? 60 mg PO DAILY [facility] Gabapentin (Gabapentin 400 Mg Capsule)? 800 mg PO TID [facility] Quetiapine Fumarate (Quetiapine Fumarate 25 Mg Tablet)? 25 mg PO DAILY [facility] Quetiapine Fumarate (Quetiapine Fumarate 300 Mg Tablet)? 300 mg PO BEDTIME [facility] Trazodone HCl (Trazodone Hcl 50 Mg Tablet)? 50 mg PO BEDTIME MRX1 PRN Patient educated on: diagnosis and therapeutic strategies Informed Consent: understands Reason for contiued inpatient stay Substantial Risk for: stable for discharge Time Spent With Patient Time: Total time managing care of this patient today ____ minutes.
[2022-07-02 17:35] LABS: Glucose, Whole Blood 189 mg/dL (60-115)
[2022-07-02 19:25] VITALS: BP 150/70; PULSE 82; TEMP 36.2; O2SAT 96
--- NOTE | 2022-07-02 20:25 | PC.NURSE ---
Addendum entered by Yesenia Alexis RN 07/03/22 02:37: Provider application technical designer put in an order for a hospitalist consult and Dr. Lamar was contacted. Orders received for Troponin lab draw and a CT of the head without contrast. After the labs were drawn and CT was done, this check writer called Dr. Lamar who came to check patient face to face. No further orders received. Original Note: Patient c/o of left arm pain, he said It's shooting pain up my arm and my left hand feel numb. Vitals were taken T 97.2, Bp 150/70, Pulses 80-82 bilateral wrists, O2 sat 96% on room air. Although there is mild swelling to the left hand, no redness, streaking or elevated temperature noted. Provider notified. STAT EKG ordered. Provider is also considering a doppler study.
--- NOTE | 2022-07-02 20:37 | ECG_ITS ---
Test Reason : Shooting left arm pain. Blood Pressure : / mmHG Vent. Rate : 071 BPM Atrial Rate : 071 BPM P-R Int : 216 ms QRS Dur : 098 ms QT Int : 382 ms P-R-T Axes : 036 027 070 degrees QTc Int : 415 ms Sinus rhythm with 1st degree A-V block Increased R/S ratio in V1, consider early transition or posterior infarct Abnormal ECG When compared with ECG of 27-JUN-2022 17:32, No significant change was found Referred By: Cely Miller Electronically Signed By:GABRIELE CRUZ
[2022-07-02] MEDS: Insulin Glargine,Hum.rec.anlog 100 UNIT/ML 10 ML VIAL 10 UNIT SUBCUT (23:20)
[2022-07-02] MEDS: QUEtiapine Fumarate 300 MG TABLET PO (23:20)
[2022-07-02] MEDS: Docusate Sodium 100 MG CAPSULE 200 MG PO (23:20)
[2022-07-02 23:47] LABS: Troponin-I High Sensitivity 21.5 ng/L (<3.5-35.0)
[2022-07-02 23:53] LABS: Glucose, Whole Blood 159 mg/dL (60-115)
--- NOTE | 2022-07-03 01:25 | PM.EVENT ---
Event Note Date of Service: 07/07/22 Event Note: Left arm pain/numbness: Medicine team was consulted because patient was complaining of left arm pain/numbness. Upon entering patient complains of the left arm pain happening since morning. Confirmed by the RN at at bedside that the patient has been complaining since morning. Patient denies any falls or trauma. Mentions that whenever he moves his arm in particular ankle he has pain. Reports he always has slightly decreased sensation in his left upper extremity. On examination patient noted to have slightly decreased sensation on the left forearm compared to the right forearm. Range of motion fairly intact at the elbow and shoulder joints. Noted to have reproducible pain on the upper 3rd of the left forearm EKG was nonischemic-noted to have first-degree AV block-patient denies any lightheadedness dizziness. Was not bradycardic. Patient on metoprolol succinate at baseline-tolerating well. Troponins were negative CT head showed no acute findings Recommended neurology follow-up Time Spent With Patient Time: Total time managing care of this patient today ____ minutes.
[2022-07-03 07:09] LABS: Lamotrigine Lamictal 0.8 mcg/mL (4.0-18.0)
[2022-07-03 08:03] LABS: Glucose, Whole Blood 136 mg/dL (60-115)
[2022-07-03 08:32] VITALS: BP 116/70; PULSE 82; RESP 16; TEMP 36.6; O2SAT 96
[2022-07-03] MEDS: polyethylene glycoL 3350 17 GM POWD.PACK PO (08:34)
[2022-07-03] MEDS: Fenofibrate 54 MG TABLET PO (08:34)
[2022-07-03] MEDS: Gabapentin 400 MG CAPSULE 800 MG PO ×3 (08:34→19:20)
[2022-07-03] MEDS: Nicotine 21 MG PATCH.TD24 TRANSDERMA (08:34)
[2022-07-03] MEDS: Magnesium Hydrox/Alum Hydrox 30 ML ORAL.SUSP PO ×3 (08:34→15:49)
[2022-07-03] MEDS: glyBURIDE 5 MG TABLET PO (08:35)
[2022-07-03] MEDS: lisinopriL 5 MG TABLET PO (08:35)
[2022-07-03] MEDS: DULoxetine HCl 60 MG CAPSULE.DR PO (08:35)
[2022-07-03] MEDS: QUEtiapine Fumarate 25 MG TABLET PO (08:35)
[2022-07-03] MEDS: Cholecalciferol (Vitamin D3) 25 MCG TABLET 50 MCG PO (08:35)
[2022-07-03] MEDS: Atorvastatin Calcium 40 MG TABLET PO (08:35)
[2022-07-03] MEDS: Metoprolol Succinate ER 25 MG TAB.ER.24H PO (08:35)
[2022-07-03] MEDS: Loratadine 10 MG TABLET PO (08:35)
[2022-07-03] MEDS: Omeprazole 20 MG CAPSULE.DR PO (08:35)
[2022-07-03] MEDS: metFORMIN HCl 1,000 MG TABLET 1000 MG PO ×2 (08:35→16:22)
[2022-07-03] MEDS: Magnesium Oxide 400 MG TABLET PO (08:35)
[2022-07-03] MEDS: Buprenorphine/Naloxone 4/1 mg FILM 1 FILM SUBLINGUAL ×4 (09:07→19:20)
[2022-07-03] MEDS: Buprenorphine/Naloxone 2/0.5mg FILM 1 FILM SUBLINGUAL ×4 (09:07→19:20)
--- NOTE | 2022-07-03 12:10 | P.PNPSI_ITS ---
Subjective Subjective Date of Service: 07/03/22 Reason For Visit: SI Interim History: Met with patient; discussed with team Patient reports that mood remains good; he remains future oriented about potentially going to a program and [facility] 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 Will order x-ray Mental Status Exam Mental Status Exam Narrative: Pt is alert; oriented; behavior is cooperative, calm; bald head, scruffy perez and marginal hygiene; mood is described as good and affect congruent, bright; eye contact appropriate; Speech is hard to understand due to speech impediment or mumbling which is baseline; otherwise, normal rate, volume and prosody and not pressured; no psychomotor agitation/retardation present; thought process goal directed; Thought content is on treatment, changing living situation; denies SI or HI; no AVH and There is no evidence of perceptual disturbance. Patients insight and judgment are fair and adequate Diagnostics Vital Signs (24Hr): Vital Signs - 24 hr 07/02/22 19:25 07/03/22 08:32 Temperature 97.2 F 97.8 F Pulse Rate 82 82 Respiratory Rate 16 Blood Pressure 150/70 H 116/70 Pulse Oximetry 96 96 Oxygen Delivery Method Room Air Room Air BMI result Body Mass Index 35.5 Labs 06/27/22 11:25 06/29/22 07:27 Labs: Laboratory Results - last 48 hr 06/28/22 07/01/22 07/01/22 07:12 16:54 20:47 POC Glucose 210 H 134 H Troponin I High Sens Lamotrigine 0.8 L 07/02/22 07/02/22 07/02/22 08:01 12:02 17:08 POC Glucose 178 H 236 H 189 H Troponin I High Sens Lamotrigine 07/02/22 07/02/22 07/03/22 23:22 23:37 07:51 POC Glucose 159 H 136 H Troponin I High Sens 21.5 Lamotrigine Imaging Radiology Impressions: ITS Impressions Head CT 07/02/22 23:10 IMPRESSION: No acute intracranial pathology. Medications Medications Current Medications Acetaminophen (Acetaminophen 325 Mg Tablet) 650 mg PO ONCE PRN PRN Reason: Pain, Moderate (Pain Scale 4-6 Last Admin: 06/29/22 12:04 Dose: 650 mg Al Hydroxide/Mg Hydroxide (Magnesium Hydrox/Alum Hydrox 30 Ml Oral.Susp) 30 ml PO TIDWM [facility] Last Admin: 07/03/22 08:34 Dose: 30 ml Atorvastatin Calcium (Atorvastatin Calcium 40 Mg Tablet) 40 mg PO DAILY [facility] Last Admin: 07/03/22 08:35 Dose: 40 mg Buprenorphine/Naloxone (Buprenorphine/Naloxone 4/1 Mg Film) 1 film SUBLINGUAL QID [facility] Last Admin: 07/03/22 09:07 Dose: 1 film Buprenorphine/Naloxone (Buprenorphine/Naloxone 2/0.5mg Film) 1 film SUBLINGUAL QID [facility] Last Admin: 07/03/22 09:07 Dose: 1 film Docusate Sodium (Docusate Sodium 100 Mg Capsule) 200 mg PO BEDTIME [facility] Last Admin: 07/02/22 23:20 Dose: 200 mg Duloxetine HCl (Duloxetine Hcl 60 Mg Capsule.Dr) 60 mg PO DAILY [facility] Last Admin: 07/03/22 08:35 Dose: 60 mg Fenofibrate (Fenofibrate 54 Mg Tablet) 54 mg PO DAILY [facility] Last Admin: 07/03/22 08:34 Dose: 54 mg Fluticasone Propionate (Fluticasone Propionate Nasal 16 Gm [place]) 1 spray NOSTRIL-B DAILY [facility] Last Admin: 07/03/22 08:44 Dose: Not Given Gabapentin (Gabapentin 400 Mg Capsule) 800 mg PO TID [facility] Last Admin: 07/03/22 08:34 Dose: 800 mg Glucose (Glucose Gel 15 Gm Gel..Gram.) 15 gm PO Q15M PRN; Protocol PRN Reason: per Hypoglycemia Standing Ord. Glyburide (Glyburide 5 Mg Tablet) 5 mg PO DAILY [facility] Last Admin: 07/03/22 08:35 Dose: 5 mg Hydroxyzine HCl (Hydroxyzine Hcl 25 Mg Tablet) 25 mg PO Q6H PRN PRN Reason: Anxiety Last Admin: 06/29/22 12:04 Dose: 25 mg Insulin Glargine (Insulin Glargine,Hum.Rec.Anlog 100 Unit/Ml 10 Ml Vial) 10 unit SUBCUT BEDTIME [facility] Last Admin: 07/02/22 23:20 Dose: 10 unit Insulin Human Lispro (Insulin Lispro 100 Unit/Ml 3 Ml Vial) 0 unit SUBCUT Q IDACHS [facility]; Protocol Last Admin: 07/03/22 08:18 Dose: Not Given Lisinopril (Lisinopril 5 Mg Tablet) 5 mg PO DAILY [facility]; Protocol Last Admin: 07/03/22 08:35 Dose: 5 mg Loratadine (Loratadine 10 Mg Tablet) 10 mg PO DAILY [facility] Last Admin: 07/03/22 08:35 Dose: 10 mg Magnesium Hydroxide (Milk Of Magnesia 30 Ml Oral.Susp) 30 ml PO DAILY PRN PRN Reason: Constipation Magnesium Oxide (Magnesium Oxide 400 Mg Tablet) 400 mg PO DAILY [facility] Last Admin: 07/03/22 08:35 Dose: 400 mg Metformin HCl (Metformin Hcl 1,000 Mg Tablet) 1,000 mg PO BIDWM [facility] Last Admin: 07/03/22 08:35 Dose: 1,000 mg Metoprolol Succinate (Metoprolol Succinate Er 25 Mg Tab.Er.24h) 25 mg PO DAILY [facility]; Protocol Last Admin: 07/03/22 08:35 Dose: 25 mg Nicotine (Nicotine 21 Mg Patch.Td24) 21 mg TRANSDERMA DAILY [facility] Last Admin: 07/03/22 08:34 Dose: 21 mg Omeprazole (Omeprazole 20 Mg Capsule.Dr) 20 mg PO DAILY@0630 [facility] Last Admin: 07/03/22 08:35 Dose: 20 mg Polyethylene Glycol (Polyethylene Glycol 3350 17 Gm Powd.Pack) 17 gm PO DAILY [facility] Last Admin: 07/03/22 08:34 Dose: 17 gm Quetiapine Fumarate (Quetiapine Fumarate 25 Mg Tablet) 25 mg PO DAILY [facility] Last Admin: 07/03/22 08:35 Dose: 25 mg Quetiapine Fumarate (Quetiapine Fumarate 300 Mg Tablet) 300 mg PO BEDTIME [facility] Last Admin: 07/02/22 23:20 Dose: 300 mg Trazodone HCl (Trazodone Hcl 50 Mg Tablet) 50 mg PO BEDTIME MRX1 PRN PRN Reason: Insomnia Vitamin D (Cholecalciferol (Vitamin D3) 25 Mcg Tablet) 50 mcg PO DAILY [facility] Last Admin: 07/03/22 08:35 Dose: 50 mcg Allergies Allergies Allergy/AdvReac Type Severity Reaction Status Date / Time No Known Allergies Allergy Verified 05/31/21 11:24 Assessment & Plan Assessment & Plan (1) MDD (major depressive disorder), recurrent episode, moderate: Status: Chronic Code(s): F33.1 - Major depressive disorder, recurrent, moderate Assessment and Plan: currently on medication was off for last 3 days while using (2) Cocaine use: Status: Acute Code(s): F14.90 - Cocaine use, unspecified, uncomplicated Assessment and Plan: crack spent monthly check on (3) Multifactorial gait disorder: Status: Acute Code(s): R26.89 - Other abnormalities of gait and mobility Assessment and Plan: uses wheel chair due to leg foot pain- Plan Pt is a 62 yo Male with a history of MDD, chronic back and knee pain, ambulates in a wheelchair and long history of crack cocaine abuse who now presents for depression with SI in the face of relapsing on crack cocaine and non-adherence with medication or follow-up. Hospital course: 06/30 patient has been restarted on home medications. SI resolved and depression has abated. He remains ambivalent about treatment saying he does not like it but knows he needs it. 07/01 depression, SI fully resolved; patient appropriately joking with staff and peers. Agrees to continue on current regimen; agrees to discontinue Lamictal since he is not consistently adherent. 07/02 patient remains improved; appreciates increase Suboxone; no other changes to current regimen. Discussed with social work and will proceed with dispo planning. 07/03 patient remained stable and will proceed with dispo planning; patient complains of left elbow pain likely status post fall which elicits exquisite pain on palpation. Will order x-ray Plan: Q 15 minutes One-to-one due to wheelchair Left arm x-ray: Ordered Increased to Buprenorphine/Naloxone (Buprenorphine/Naloxone 6/1 Mg Film)? 1 film SUBLINGUAL QID SHARA Duloxetine HCl (Duloxetine Hcl 60 Mg Capsule.)? 60 mg PO DAILY SHARA Gabapentin (Gabapentin 400 Mg Capsule)? 800 mg PO TID SHARA Quetiapine Fumarate (Quetiapine Fumarate 25 Mg Tablet)? 25 mg PO DAILY SHARA Quetiapine Fumarate (Quetiapine Fumarate 300 Mg Tablet)? 300 mg PO BEDTIME SHARA Trazodone HCl (Trazodone Hcl 50 Mg Tablet)? 50 mg PO BEDTIME MRX1 PRN Patient educated on: diagnosis, medication risk/benefits, therapeutic strategies and medical condition Informed Consent: understands Reason for contiued inpatient stay Substantial Risk for: stable for discharge Time Spent With Patient Time: Total time managing care of this patient today ____ minutes.
[2022-07-03] MEDS: Milk of Magnesia 30 ML ORAL.SUSP PO (12:33)
[2022-07-03 12:49] LABS: Glucose, Whole Blood 212 mg/dL (60-115)
[2022-07-03] MEDS: Insulin Lispro 100 UNIT/ML 3 ML VIAL SUBCUT ×3 (12:50→19:40)
[2022-07-03 13:00] VITALS: BP 119/67; PULSE 76; RESP 16; TEMP 36.8; O2SAT 96
--- NOTE | 2022-07-03 13:02 | PM.NEUROCN ---
History of Present Illness Data of Consult Service Date: 07/03/22 Primary Care Provider: Unknown Physician HPI 62 yr man who uses crack cocaine an dhas h/o previous stroke( details not available) admitted for depression and suicidal ideation, acute hyperglycemia, chroni cpain syndrome. Today he is complaining of left arm pain/numbness since morning. Patient denies any falls or trauma.Whenever he moves his arm in certain angles, he has pain.At baseline, he has slightly decreased sensation in his left upper extremity. 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 Review of Systems Review of Systems: ongoing knee and leg pains uses wheel chair dyarthric speech not new- says due to not having dentures - Yes all other systems are reviewed and are negative PMFSH Past Medical History Medical History Acute blood loss anemia Cerebral infarction Cocaine use disorder, moderate, dependence Diabetes HTN (hypertension) MDD (major depressive disorder), recurrent episode, moderate Multifactorial gait disorder Opioid use disorder, mild, in sustained remission Social History Social History Household Members: Other Housing: Apartment Housing Other:: soliders on Do you presently have visiting nurse or other home services: Yes Unable to assess alcohol history related to: Unknown Alcohol intake: unknown Patient Tobacco Use Status: Current everyday Tobacco user Tobacco use type: Cigarette Cigarette Packs Per Day: 2 Cigarettes Per Day: 40.0 Years Smoked: 12 e-Cigarette/Vaping Use: Never Used Second Hand Smoke Exposure: No Substance Use Type: Crack/Cocaine service: Yes ([employer]) Current occupational status: disabled Sexual orientation: Decline to Answer Meds Allergies Allergy/AdvReac Type Severity Reaction Status Date / Time No Known Allergies Allergy Verified 05/31/21 11:24 Active Medications: Current Medications Acetaminophen (Acetaminophen 325 Mg Tablet) 650 mg PO ONCE PRN PRN Reason: Pain, Moderate (Pain Scale 4-6 Last Admin: 06/29/22 12:04 Dose: 650 mg Al Hydroxide/Mg Hydroxide (Magnesium Hydrox/Alum Hydrox 30 Ml Oral.Susp) 30 ml PO TIDWM [facility] Last Admin: 07/03/22 12:51 Dose: 30 ml Atorvastatin Calcium (Atorvastatin Calcium 40 Mg Tablet) 40 mg PO DAILY [facility] Last Admin: 07/03/22 08:35 Dose: 40 mg Buprenorphine/Naloxone (Buprenorphine/Naloxone 4/1 Mg Film) 1 film SUBLINGUAL QID [facility] Last Admin: 07/03/22 12:50 Dose: 1 film Buprenorphine/Naloxone (Buprenorphine/Naloxone 2/0.5mg Film) 1 film SUBLINGUAL QID [facility] Last Admin: 07/03/22 12:33 Dose: 1 film Docusate Sodium (Docusate Sodium 100 Mg Capsule) 200 mg PO BEDTIME [facility] Last Admin: 07/02/22 23:20 Dose: 200 mg Duloxetine HCl (Duloxetine Hcl 60 Mg Capsule.Dr) 60 mg PO DAILY [facility] Last Admin: 07/03/22 08:35 Dose: 60 mg Fenofibrate (Fenofibrate 54 Mg Tablet) 54 mg PO DAILY [facility] Last Admin: 07/03/22 08:34 Dose: 54 mg Fluticasone Propionate (Fluticasone Propionate Nasal 16 Gm [place]) 1 spray NOSTRIL-B DAILY [facility] Last Admin: 07/03/22 08:44 Dose: Not Given Gabapentin (Gabapentin 400 Mg Capsule) 800 mg PO TID [facility] Last Admin: 07/03/22 08:34 Dose: 800 mg Glucose (Glucose Gel 15 Gm Gel..Gram.) 15 gm PO Q15M PRN; Protocol PRN Reason: per Hypoglycemia Standing Ord. Glyburide (Glyburide 5 Mg Tablet) 5 mg PO DAILY [facility] Last Admin: 07/03/22 08:35 Dose: 5 mg Hydroxyzine HCl (Hydroxyzine Hcl 25 Mg Tablet) 25 mg PO Q6H PRN PRN Reason: Anxiety Last Admin: 06/29/22 12:04 Dose: 25 mg Insulin Glargine (Insulin Glargine,Hum.Rec.Anlog 100 Unit/Ml 10 Ml Vial) 10 unit SUBCUT BEDTIME [facility] Last Admin: 07/02/22 23:20 Dose: 10 unit Insulin Human Lispro (Insulin Lispro 100 Unit/Ml 3 Ml Vial) 0 unit SUBCUT QIDACHS [facility]; Protocol Last Admin: 07/03/22 12:50 Dose: 4 unit Lisinopril (Lisinopril 5 Mg Tablet) 5 mg PO DAILY [facility]; Protocol Last Admin: 07/03/22 08:35 Dose: 5 mg Loratadine (Loratadine 10 Mg Tablet) 10 mg PO DAILY [facility] Last Admin: 07/03/22 08:35 Dose: 10 mg Magnesium Hydroxide (Milk Of Magnesia 30 Ml Oral.Susp) 30 ml PO DAILY PRN PRN Reason: Constipation Last Admin: 07/03/22 12:33 Dose: 30 ml Magnesium Oxide (Magnesium Oxide 400 Mg Tablet) 400 mg PO DAILY [facility] Last Admin: 07/03/22 08:35 Dose: 400 mg Metformin HCl (Metformin Hcl 1,000 Mg Tablet) 1,000 mg PO BIDWM [facility] Last Admin: 07/03/22 08:35 Dose: 1,000 mg Metoprolol Succinate (Metoprolol Succinate Er 25 Mg Tab.Er.24h) 25 mg PO DAILY [facility]; Protocol Last Admin: 07/03/22 08:35 Dose: 25 mg Nicotine (Nicotine 21 Mg Patch.Td24) 21 mg TRANSDERMA DAILY [facility] Last Admin: 07/03/22 08:34 Dose: 21 mg Omeprazole (Omeprazole 20 Mg Capsule.Dr) 20 mg PO DAILY@0630 [facility] Last Admin: 07/03/22 08:35 Dose: 20 mg Polyethylene Glycol (Polyethylene Glycol 3350 17 Gm Powd.Pack) 17 gm PO DAILY [facility] Last Admin: 07/03/22 08:34 Dose: 17 gm Quetiapine Fumarate (Quetiapine Fumarate 25 Mg Tablet) 25 mg PO DAILY [facility] Last Admin: 07/03/22 08:35 Dose: 25 mg Quetiapine Fumarate (Quetiapine Fumarate 300 Mg Tablet) 300 mg PO BEDTIME [facility] Last Admin: 07/02/22 23:20 Dose: 300 mg Trazodone HCl (Trazodone Hcl 50 Mg Tablet) 50 mg PO BEDTIME MRX1 PRN PRN Reason: Insomnia Vitamin D (Cholecalciferol (Vitamin D3) 25 Mcg Tablet) 50 mcg PO DAILY [facility] Last Admin: 07/03/22 08:35 Dose: 50 mcg Home Medications Medication Instructions Recorded Confirmed Last Taken Type acetaminophen 325 mg tablet 2 tab PO TID PRN Pain 01/01/22 06/27/22 Unknown History aluminum-mag hydroxide-simethicone 30 ml PO TIDWM 01/01/22 06/27/22 Unknown History 200 mg-200 mg-20 mg/5 mL oral susp (Sury-Mox Antacid-[place]) atorvastatin 40 mg tablet 40 mg PO DAILY 01/01/22 06/27/22 Unknown History cholecalciferol (vitamin D3) 50 50 mcg PO DAILY 01/01/22 06/27/22 Unknown History mcg (2,000 unit) tablet duloxetine 60 mg capsule,delayed 60 mg PO DAILY 01/01/22 06/27/22 Unknown History release fenofibrate 54 mg tablet 54 mg PO DAILY 01/01/22 06/27/22 Unknown History fluticasone propionate 50 1 spray intranasal DAILY 01/01/22 06/27/22 Unknown History mcg/actuation nasal spray,suspension loratadine 10 mg tablet 10 mg PO DAILY 01/01/22 06/27/22 Unknown History magnesium oxide 400 mg (241.3 mg 400 mg PO DAILY 01/01/22 06/27/22 Unknown History magnesium) tablet metformin 500 mg tablet 2 tab PO BID 01/01/22 06/27/22 Unknown History metoprolol succinate 25 mg 25 mg PO DAILY 01/01/22 06/27/22 Unknown History tablet,extended release 24 hr pantoprazole 40 mg tablet,delayed 40 mg PO DAILY 01/01/22 06/27/22 Unknown History release hydroxyzine HCl 25 mg tablet 1 tab PO Q6H PRN Anxiety 06/02/22 06/27/22 Unknown History Physical Exam Vital Signs: Vital Signs: Last Vital Signs Temp 97.8 F 07/03/22 08:32 Pulse 82 07/03/22 08:32 Resp 16 07/03/22 08:32 BP 116/70 07/03/22 08:32 Pulse Ox 96 07/03/22 08:32 O2 Del Method 07/03/22 08:32 BMI result Body Mass Index 35.5 Neuro: Other: He is edentulous with the slightly slurred speech. Noo drift of the upper extremities. No weakness. Pain in certain movements of the shoulder is suggestive of shoulder pathology. Some radicular pain going down the left upper extremity Results Labs 06/27/22 11:25 06/29/22 07:27 Assessment and Plan (1) MDD (major depressive disorder), recurrent episode, moderate: Status: Chronic currently on medication was off for last 3 days while using (2) Cocaine use: Status: Acute crack spent monthly check on (3) Multifactorial gait disorder: Status: Acute uses wheel chair due to leg foot pain- (4) Cervical radiculopathy: Status: Acute His lleft arm pain appears to be mostly related to the shoulder. Some radicular components may reflect a C6 radiculopathy but he does not have objective findings to confirm this. Recommendation Of the left shoulder. Cervical spine x-rays. Diclofenac 75 mg twice a day Plan Pt is a 62 yo Male with a history of MDD, chronic back and knee pain, ambulates in a wheelchair and long history of crack cocaine abuse who now presents for depression with SI in the face of relapsing on crack cocaine and non-adherence with medication or follow-up. Hospital course: 07/01 patient has been restarted on home medications. SI resolved and depression has abated. He remains ambivalent about treatment saying he does not like it but knows he needs it. 07/02 depression, SI fully resolved; patient appropriately joking with staff and peers. Agrees to continue on current regimen; agrees to discontinue Lamictal since he is not consistently adherent. 07/03 patient remains improved; appreciates increase Suboxone; no other changes to current regimen. Discussed with social work and will proceed with dispo planning. Plan: Q 15 minutes One-to-one due to wheelchair Increase to Buprenorphine/Naloxone (Buprenorphine/Naloxone 6/1 Mg Film)? 1 film SUBLINGUAL QID SHARA Duloxetine HCl (Duloxetine Hcl 60 Mg Capsule.)? 60 mg PO DAILY [facility] Gabapentin (Gabapentin 400 Mg Capsule)? 800 mg PO TID SHARA Quetiapine Fumarate (Quetiapine Fumarate 25 Mg Tablet)? 25 mg PO DAILY [facility] Quetiapine Fumarate (Quetiapine Fumarate 300 Mg Tablet)? 300 mg PO BEDTIME [facility] Trazodone HCl (Trazodone Hcl 50 Mg Tablet)? 50 mg PO BEDTIME MRX1 PRN Time Spent With Patient Time: Total time managing care of this patient today ____ minutes. Procedures Date of Service Date of Service: 07/02/22
[2022-07-03 13:40] VITALS: BMI 31.6
[2022-07-03] MEDS: bisacodyL 10 MG SUPP.RECT PR (15:48)
[2022-07-03 16:38] LABS: Glucose, Whole Blood 233 mg/dL (60-115)
[2022-07-03 18:00] VITALS: BP 148/80; PULSE 86; TEMP 36.6
[2022-07-03] MEDS: QUEtiapine Fumarate 300 MG TABLET PO (19:20)
[2022-07-03] MEDS: Docusate Sodium 100 MG CAPSULE 200 MG PO (19:20)
[2022-07-03 19:33] LABS: Glucose, Whole Blood 246 mg/dL (60-115)
[2022-07-03] MEDS: Insulin Glargine,Hum.rec.anlog 100 UNIT/ML 10 ML VIAL 10 UNIT SUBCUT (19:39)
[2022-07-04] MEDS: Omeprazole 20 MG CAPSULE.DR PO (05:34)
[2022-07-04 08:09] LABS: Glucose, Whole Blood 224 mg/dL (60-115)
[2022-07-04] MEDS: Magnesium Hydrox/Alum Hydrox 30 ML ORAL.SUSP PO (08:37)
[2022-07-04] MEDS: polyethylene glycoL 3350 17 GM POWD.PACK PO (08:38)
[2022-07-04] MEDS: Nicotine 21 MG PATCH.TD24 TRANSDERMA (08:38)
[2022-07-04] MEDS: Insulin Lispro 100 UNIT/ML 3 ML VIAL SUBCUT (08:38)
[2022-07-04] MEDS: Fenofibrate 54 MG TABLET PO (08:39)
[2022-07-04] MEDS: QUEtiapine Fumarate 25 MG TABLET PO (08:39)
[2022-07-04] MEDS: Gabapentin 400 MG CAPSULE 800 MG PO (08:39)
[2022-07-04] MEDS: DULoxetine HCl 60 MG CAPSULE.DR PO (08:39)
[2022-07-04] MEDS: glyBURIDE 5 MG TABLET PO (08:39)
[2022-07-04] MEDS: Loratadine 10 MG TABLET PO (08:39)
[2022-07-04] MEDS: lisinopriL 5 MG TABLET PO (08:39)
[2022-07-04] MEDS: Magnesium Oxide 400 MG TABLET PO (08:39)
[2022-07-04] MEDS: Atorvastatin Calcium 40 MG TABLET PO (08:40)
[2022-07-04] MEDS: metFORMIN HCl 1,000 MG TABLET 1000 MG PO (08:40)
[2022-07-04] MEDS: Metoprolol Succinate ER 25 MG TAB.ER.24H PO (08:40)
[2022-07-04] MEDS: Cholecalciferol (Vitamin D3) 25 MCG TABLET 50 MCG PO (08:40)
[2022-07-04] MEDS: Buprenorphine/Naloxone 2/0.5mg FILM 1 FILM SUBLINGUAL ×2 (08:54→11:33)
[2022-07-04] MEDS: Buprenorphine/Naloxone 4/1 mg FILM 1 FILM SUBLINGUAL ×2 (08:54→11:33)
[2022-07-04 08:58] VITALS: BP 139/74; PULSE 74; RESP 16; TEMP 35.6; O2SAT 96
--- NOTE | 2022-07-04 10:48 | PM.PSYDC ---
DS: Providers Provider Date of Service: 07/04/22 Date of admission: 06/27/22 18:16 Date of discharge: 07/04/22 Primary care physician: Unknown Physician Attending physician on admission: Chapincito Gonzalez Consults: 06/28/22 08:05 Consult to Hospitalist Routine Consulting Provider: Hospitalist Reason For Exam: need help managing diabetes hyperglycemia 06/29/22 12:21 Consult to Hospitalist Stat Consulting Provider: Hospitalist Reason For Exam: new readmit to psych left arm swelling and pain 07/02/22 21:28 Consult to Hospitalist Stat Consulting Provider: Hospitalist Reason For Exam: Severe L Arm Pain, EKG Abnormal 07/03/22 01:28 Consult to Neurology Routine Consulting Provider: [facility] Reason for consultation: lUE numbness Attending physician on discharge: Chapincito Gonzalez DS: Diagnosis Discharge Diagnosis (1) MDD (major depressive disorder), recurrent episode, moderate: Status: Chronic (2) Cocaine use: Status: Acute (3) Multifactorial gait disorder: Status: Acute DS: Medications Discharge Medications Home Medications: Home Medications Medication Instructions Recorded Confirmed acetaminophen 325 mg tablet 2 tab PO TID PRN Pain 01/01/22 06/27/22 aluminum-mag hydroxide-simethicone 30 ml PO TIDWM 01/01/22 06/27/22 200 mg-200 mg-20 mg/5 mL oral susp (Sury-Mox Antacid-Antigas) atorvastatin 40 mg tablet 40 mg PO DAILY 01/01/22 06/27/22 cholecalciferol (vitamin D3) 50 50 mcg PO DAILY 01/01/22 06/27/22 mcg (2,000 unit) tablet duloxetine 60 mg capsule,delayed 60 mg PO DAILY 01/01/22 06/27/22 release fenofibrate 54 mg tablet 54 mg PO DAILY 01/01/22 06/27/22 fluticasone propionate 50 1 spray intranasal DAILY 01/01/22 06/27/22 mcg/actuation nasal spray,suspension loratadine 10 mg tablet 10 mg PO DAILY 01/01/22 06/27/22 magnesium oxide 400 mg (241.3 mg 400 mg PO DAILY 01/01/22 06/27/22 magnesium) tablet metformin 500 mg tablet 2 tab PO BID 01/01/22 06/27/22 metoprolol succinate 25 mg 25 mg PO DAILY 01/01/22 06/27/22 tablet,extended release 24 hr pantoprazole 40 mg tablet,delayed 40 mg PO DAILY 01/01/22 06/27/22 release hydroxyzine HCl 25 mg tablet 1 tab PO Q6H PRN Anxiety 06/02/22 06/27/22 Previous Rx's Medication Instructions Recorded docusate sodium 100 mg capsule 200 mg PO BEDTIME 30 days #60 caps 11/08/21 gabapentin 800 mg tablet 800 mg PO TID 30 days #90 tabs 11/08/21 glyburide 5 mg tablet 5 mg PO DAILY 30 days #30 tabs 11/08/21 lisinopril 5 mg tablet 5 mg PO DAILY 30 days #30 tabs 11/08/21 quetiapine 25 mg tablet 25 mg PO DAILY 30 days #30 tabs 11/08/21 quetiapine 300 mg tablet 300 mg PO BEDTIME 30 days #30 tabs 11/08/21 buprenorphine 2 mg-naloxone 0.5 mg 1 film sublingual QID #0 ea 07/04/22 sublingual film (Suboxone) buprenorphine 4 mg-naloxone 1 mg 1 film sublingual QID #0 ea 07/04/22 sublingual film (Suboxone) magnesium hydroxide 400 mg/5 mL 30 ml PO DAILY PRN Constipation #0 07/04/22 oral suspension (Milk of Magnesia) mL nicotine 21 mg/24 hr daily 21 mg transdermal DAILY PRN 07/04/22 transdermal patch smoking cessation #0 ea Mental Status Exam Mental Status Exam Narrative: Pt is alert; oriented; behavior is cooperative, calm; bald head, scruffy perez and marginal hygiene; mood is described as good and affect congruent, bright; eye contact appropriate; Speech is hard to understand due to speech impediment or mumbling which is baseline; otherwise, normal rate, volume and prosody and not pressured; no psychomotor agitation/retardation present; thought process goal directed; Thought content is on treatment, changing living situation; denies SI or HI; no AVH and There is no evidence of perceptual disturbance. Patients insight and judgment are fair and adequate Data Data Completed and Pending Completed studies during hospitalization [Text1]: 06/27/22 06/27/22 06/27/22 02:38 11:24 11:25 WBC 5.9 RBC 4.87 Hgb 12.8 L Hct 38.4 L MCV 78.9 L MCH 26.3 L MCHC 33.3 RDW 15.2 Plt Count 267 MPV 9.4 Immature Gran % (Auto) 0.3 Neut % (Auto) 69.3 Lymph % (Auto) 17.9 L [place] % (Auto) 10.1 Eos % (Auto) 1.9 Baso % (Auto) 0.5 Lymph # (Auto) 1.1 L [place] # (Auto) 0.6 Eos # (Auto) 0.1 Baso # (Auto) 0.0 Abs Immat Gran (auto) 0.02 Absolute Neuts (auto) 4.1 Absolute Nucleated RBC 0.000 Nucleated RBC % (auto) 0.0 Sodium Potassium Chloride Carbon Dioxide Anion Gap BUN Creatinine Estim Creat Clear Calc Estimated GFR POC Glucose Random Glucose Fasting Glucose Estimat Average Glucose Hemoglobin A1c % Calcium Total Bilirubin Direct Bilirubin AST ALT Alkaline Phosphatase Troponin I High Sens Total Protein Albumin Triglycerides Cholesterol LDL Cholesterol, Calc HDL Cholesterol Lipase Vitamin B12 Folate TSH Urine Color Yellow Urine Appearance Clear Urine pH 6.0 Ur Specific [place] >= 1.030 H Urine Protein Negative Urine Glucose (UA) >=1000 H Urine Ketones Negative Urine Blood Negative Urine Nitrite Negative Ur Leukocyte Esterase Negative Urine RBC 0-2 Urine WBC 0-5 Ur Squamous Epith Cells 0-2 Urine Bacteria None Seen Hyaline Casts 0-2 Urine Opiates Screen Not Detected Urine Fentanyl Screen Not Detected Ur Barbiturates Screen Not Detected Lamotrigine Ur Phencyclidine Scrn Not Detected Ur Amphetamines Screen Not Detected U Benzodiazepines Scrn Not Detected Urine Cocaine Screen POSITIVE H U Marijuana (THC) Screen Not Detected Ethyl Alcohol COVID-19 (TANA) COVID-19 Clin Com 06/27/22 06/27/22 06/27/22 11:25 11:25 11:25 WBC RBC Hgb Hct MCV MCH MCHC RDW Plt Count MPV Immature Gran % (Auto) Neut % (Auto) Lymph % (Auto) [place] % (Auto) Eos % (Auto) Baso % (Auto) Lymph # (Auto) [place] # (Auto) Eos # (Auto) Baso # (Auto) Abs Immat Gran (auto) Absolute Neuts (auto) Absolute Nucleated RBC Nucleated RBC % (auto) Sodium 132 L Potassium 4.4 Chloride 98 Carbon Dioxide 24 Anion Gap 14 BUN 17 H Creatinine 0.90 Estim Creat Clear Calc 96.5 Estimated GFR > 60 POC Glucose Random Glucose 376 H* Fasting Glucose Estimat Average Glucose Hemoglobin A1c % Calcium 9.5 D Total Bilirubin 0.5 Direct Bilirubin < 0.2 AST 51 H ALT 50 H Alkaline Phosphatase 99 Troponin I High Sens Total Protein 7.2 Albumin 4.4 Triglycerides Cholesterol LDL Cholesterol, Calc HDL Cholesterol Lipase 28 Vitamin B12 Folate TSH Urine Color Urine Appearance Urine pH Ur Specific [place] Urine Protein Urine Glucose (UA) Urine Ketones Urine Blood Urine Nitrite Ur Leukocyte Esterase Urine RBC Urine WBC Ur Squamous Epith Cells Urine Bacteria Hyaline Casts Urine Opiates Screen Urine Fentanyl Screen Ur Barbiturates Screen Lamotrigine Ur Phencyclidine Scrn Ur Amphetamines Screen U Benzodiazepines Scrn Urine Cocaine Screen U Marijuana (THC) Screen Ethyl Alcohol < 10 COVID-19 (TANA) Negative COVID-19 Clin Com See Note 06/27/22 06/28/22 06/28/22 20:00 07:12 07:12 WBC RBC Hgb Hct MCV MCH MCHC RDW Plt Count MPV Immature Gran % (Auto) Neut % (Auto) Lymph % (Auto) [place] % (Auto) Eos % (Auto) Baso % (Auto) Lymph # (Auto) [place] # (Auto) Eos # (Auto) Baso # (Auto) Abs Immat Gran (auto) Absolute Neuts (auto) Absolute Nucleated RBC Nucleated RBC % (auto) Sodium 132 L Potassium 4.5 Chloride 97 Carbon Dioxide 26 Anion Gap 14 BUN 20 H Creatinine 1.08 Estim Creat Clear Calc 80.4 Estimated GFR > 60 POC Glucose 355 H* Random Glucose Fasting Glucose 422 H* Estimat Average Glucose 235 Hemoglobin A1c % 9.8 Calcium 9.3 Total Bilirubin 0.5 Direct Bilirubin AST 72 H ALT 54 H Alkaline Phosphatase 89 Troponin I High Sens Total Protein 6.4 L Albumin 3.9 Triglycerides 254 Cholesterol 157 LDL Cholesterol, Calc 85 HDL Cholesterol 22 Lipase Vitamin B12 738 Folate 10.5 TSH 3.21 Urine Color Urine Appearance Urine pH Ur Specific [place] Urine Protein Urine Glucose (UA) Urine Ketones Urine Blood Urine Nitrite Ur Leukocyte Esterase Urine RBC Urine WBC Ur Squamous Epith Cells Urine Bacteria Hyaline Casts Urine Opiates Screen Urine Fentanyl Screen Ur Barbiturates Screen Lamotrigine Ur Phencyclidine Scrn Ur Amphetamines Screen U Benzodiazepines Scrn Urine Cocaine Screen U Marijuana (THC) Screen Ethyl Alcohol COVID-19 (TANA) COVID-19 Clin Com 06/28/22 06/28/22 06/28/22 07:12 12:40 16:24 WBC RBC Hgb Hct MCV MCH MCHC RDW Plt Count MPV Immature Gran % (Auto) Neut % (Auto) Lymph % (Auto) [place] % (Auto) Eos % (Auto) Baso % (Auto) Lymph # (Auto) [place] # (Auto) Eos # (Auto) Baso # (Auto) Abs Immat Gran (auto) Absolute Neuts (auto) Absolute Nucleated RBC Nucleated RBC % (auto) Sodium Potassium Chloride Carbon Dioxide Anion Gap BUN Creatinine Estim Creat Clear Calc Estimated GFR POC Glucose 232 H 207 H Random Glucose Fasting Glucose Estimat Average Glucose Hemoglobin A1c % Calcium Total Bilirubin Direct Bilirubin AST ALT Alkaline Phosphatase Troponin I High Sens Total Protein Albumin Triglycerides Cholesterol LDL Cholesterol, Calc HDL Cholesterol Lipase Vitamin B12 Folate TSH Urine Color Urine Appearance Urine pH Ur Specific [place] Urine Protein Urine Glucose (UA) Urine Ketones Urine Blood Urine Nitrite Ur Leukocyte Esterase Urine RBC Urine WBC Ur Squamous Epith Cells Urine Bacteria Hyaline Casts Urine Opiates Screen Urine Fentanyl Screen Ur Barbiturates Screen Lamotrigine 0.8 L Ur Phencyclidine Scrn Ur Amphetamines Screen U Benzodiazepines Scrn Urine Cocaine Screen U Marijuana (THC) Screen Ethyl Alcohol COVID-19 (TANA) COVID-19 Clin Com 06/28/22 06/29/22 06/29/22 19:14 07:27 08:38 WBC RBC Hgb Hct MCV MCH MCHC RDW Plt Count MPV Immature Gran % (Auto) Neut % (Auto) Lymph % (Auto) [place] % (Auto) Eos % (Auto) Baso % (Auto) Lymph # (Auto) [place] # (Auto) Eos # (Auto) Baso # (Auto) Abs Immat Gran (auto) Absolute Neuts (auto) Absolute Nucleated RBC Nucleated RBC % (auto) Sodium 132 L Potassium 4.3 Chloride 100 Carbon Dioxide 24 Anion Gap 12 BUN 23 H Creatinine 0.79 Estim Creat Clear Calc 109.9 Estimated GFR > 60 POC Glucose 213 H 264 H Random Glucose 255 H Fasting Glucose Estimat Average Glucose Hemoglobin A1c % Calcium 8.6 D Total Bilirubin Direct Bilirubin AST ALT Alkaline Phosphatase Troponin I High Sens Total Protein Albumin Triglycerides Cholesterol LDL Cholesterol, Calc HDL Cholesterol Lipase Vitamin B12 Folate TSH Urine Color Urine Appearance Urine pH Ur Specific [place] Urine Protein Urine Glucose (UA) Urine Ketones Urine Blood Urine Nitrite Ur Leukocyte Esterase Urine RBC Urine WBC Ur Squamous Epith Cells Urine Bacteria Hyaline Casts Urine Opiates Screen Urine Fentanyl Screen Ur Barbiturates Screen Lamotrigine Ur Phencyclidine Scrn Ur Amphetamines Screen U Benzodiazepines Scrn Urine Cocaine Screen U Marijuana (THC) Screen Ethyl Alcohol COVID-19 (TANA) COVID-19 [place] Com 06/29/22 06/29/22 06/29/22 12:53 17:07 21:05 WBC RBC Hgb Hct MCV MCH MCHC RDW Plt Count MPV Immature Gran % (Auto) Neut % (Auto) Lymph % (Auto) [place] % (Auto) Eos % (Auto) Baso % (Auto) Lymph # (Auto) [place] # (Auto) Eos # (Auto) Baso # (Auto) Abs Immat Gran (auto) Absolute Neuts (auto) Absolute Nucleated RBC Nucleated RBC % (auto) Sodium Potassium Chloride Carbon Dioxide Anion Gap BUN Creatinine Estim Creat Clear Calc Estimated GFR POC Glucose 224 H 174 H 209 H Random Glucose Fasting Glucose Estimat Average Glucose Hemoglobin A1c % Calcium Total Bilirubin Direct Bilirubin AST ALT Alkaline Phosphatase Troponin I High Sens Total Protein Albumin Triglycerides Cholesterol LDL Cholesterol, Calc HDL Cholesterol Lipase Vitamin B12 Folate TSH Urine Color Urine Appearance Urine pH Ur Specific [place] Urine Protein Urine Glucose (UA) Urine Ketones Urine Blood Urine Nitrite Ur Leukocyte Esterase Urine RBC Urine WBC Ur Squamous Epith Cells Urine Bacteria Hyaline Casts Urine Opiates Screen Urine Fentanyl Screen Ur Barbiturates Screen Lamotrigine Ur Phencyclidine Scrn Ur Amphetamines Screen U Benzodiazepines Scrn Urine Cocaine Screen U Marijuana (THC) Screen Ethyl Alcohol COVID-19 (TANA) COVID-19 [place] Translate 06/30/22 06/30/22 06/30/22 07:59 11:37 17:05 WBC RBC Hgb Hct MCV MCH MCHC RDW Plt Count MPV Immature Gran % (Auto) Neut % (Auto) Lymph % (Auto) [place] % (Auto) Eos % (Auto) Baso % (Auto) Lymph # (Auto) [place] # (Auto) Eos # (Auto) Baso # (Auto) Abs Immat Gran (auto) Absolute Neuts (auto) Absolute Nucleated RBC Nucleated RBC % (auto) Sodium Potassium Chloride Carbon Dioxide Anion Gap BUN Creatinine Estim Creat Clear Calc Estimated GFR POC Glucose 193 H 226 H 215 H Random Glucose Fasting Glucose Estimat Average Glucose Hemoglobin A1c % Calcium Total Bilirubin Direct Bilirubin AST ALT Alkaline Phosphatase Troponin I High Sens Total Protein Albumin Triglycerides Cholesterol LDL Cholesterol, Calc HDL Cholesterol Lipase Vitamin B12 Folate TSH Urine Color Urine Appearance Urine pH Ur Specific [place] Urine Protein Urine Glucose (UA) Urine Ketones Urine Blood Urine Nitrite Ur Leukocyte Esterase Urine RBC Urine WBC Ur Squamous Epith Cells Urine Bacteria Hyaline Casts Urine Opiates Screen Urine Fentanyl Screen Ur Barbiturates Screen Lamotrigine Ur Phencyclidine Scrn Ur Amphetamines Screen U Benzodiazepines Scrn Urine Cocaine Screen U Marijuana (THC) Screen Ethyl Alcohol COVID-19 (TANA) COVID-19 Clin Com 06/30/22 07/01/22 07/01/22 20:15 08:18 12:01 WBC RBC Hgb Hct MCV MCH MCHC RDW Plt Count MPV Immature Gran % (Auto) Neut % (Auto) Lymph % (Auto) [place] % (Auto) Eos % (Auto) Baso % (Auto) Lymph # (Auto) [place] # (Auto) Eos # (Auto) Baso # (Auto) Abs Immat Gran (auto) Absolute Neuts (auto) Absolute Nucleated RBC Nucleated RBC % (auto) Sodium Potassium Chloride Carbon Dioxide Anion Gap BUN Creatinine Estim Creat Clear Calc Estimated GFR POC Glucose 241 H 119 H 188 H Random Glucose Fasting Glucose Estimat Average Glucose Hemoglobin A1c % Calcium Total Bilirubin Direct Bilirubin AST ALT Alkaline Phosphatase Troponin I High Sens Total Protein Albumin Triglycerides Cholesterol LDL Cholesterol, Calc HDL Cholesterol Lipase Vitamin B12 Folate TSH Urine Color Urine Appearance Urine pH Ur Specific [place] Urine Protein Urine Glucose (UA) Urine Ketones Urine Blood Urine Nitrite Ur Leukocyte Esterase Urine RBC Urine WBC Ur Squamous Epith Cells Urine Bacteria Hyaline Casts Urine Opiates Screen Urine Fentanyl Screen Ur Barbiturates Screen Lamotrigine Ur Phencyclidine Scrn Ur Amphetamines Screen U Benzodiazepines Scrn Urine Cocaine Screen U Marijuana (THC) Screen Ethyl Alcohol COVID-19 (TANA) COVID-19 Clin Com 07/01/22 07/01/22 07/02/22 16:54 20:47 08:01 WBC RBC Hgb Hct MCV MCH MCHC RDW Plt Count MPV Immature Gran % (Auto) Neut % (Auto) Lymph % (Auto) [place] % (Auto) Eos % (Auto) Baso % (Auto) Lymph # (Auto) [place] # (Auto) Eos # (Auto) Baso # (Auto) Abs Immat Gran (auto) Absolute Neuts (auto) Absolute Nucleated RBC Nucleated RBC % (auto) Sodium Potassium Chloride Carbon Dioxide Anion Gap BUN Creatinine Estim Creat Clear Calc Estimated GFR POC Glucose 210 H 134 H 178 H Random Glucose Fasting Glucose Estimat Average Glucose Hemoglobin A1c % Calcium Total Bilirubin Direct Bilirubin AST ALT Alkaline Phosphatase Troponin I High Sens Total Protein Albumin Triglycerides Cholesterol LDL Cholesterol, Calc HDL Cholesterol Lipase Vitamin B12 Folate TSH Urine Color Urine Appearance Urine pH Ur Specific [place] Urine Protein Urine Glucose (UA) Urine Ketones Urine Blood Urine Nitrite Ur Leukocyte Esterase Urine RBC Urine WBC Ur Squamous Epith Cells Urine Bacteria Hyaline Casts Urine Opiates Screen Urine Fentanyl Screen Ur Barbiturates Screen Lamotrigine Ur Phencyclidine Scrn Ur Amphetamines Screen U Benzodiazepines Scrn Urine Cocaine Screen U Marijuana (THC) Screen Ethyl Alcohol COVID-19 (TANA) COVID-[place]hoto 07/02/22 07/02/22 07/02/22 12:02 17:08 23:22 WBC RBC Hgb Hct MCV MCH MCHC RDW Plt Count MPV Immature Gran % (Auto) Neut % (Auto) Lymph % (Auto) [place] % (Auto) Eos % (Auto) Baso % (Auto) Lymph # (Auto) [place] # (Auto) Eos # (Auto) Baso # (Auto) Abs Immat Gran (auto) Absolute Neuts (auto) Absolute Nucleated RBC Nucleated RBC % (auto) Sodium Potassium Chloride Carbon Dioxide Anion Gap BUN Creatinine Estim Creat Clear Calc Estimated GFR POC Glucose 236 H 189 H Random Glucose Fasting Glucose Estimat Average Glucose Hemoglobin A1c % Calcium Total Bilirubin Direct Bilirubin AST ALT Alkaline Phosphatase Troponin I High Sens 21.5 Total Protein Albumin Triglycerides Cholesterol LDL Cholesterol, Calc HDL Cholesterol Lipase Vitamin B12 Folate TSH Urine Color Urine Appearance Urine pH Ur Specific [place] Urine Protein Urine Glucose (UA) Urine Ketones Urine Blood Urine Nitrite Ur Leukocyte Esterase Urine RBC Urine WBC Ur Squamous Epith Cells Urine Bacteria Hyaline Casts Urine Opiates Screen Urine Fentanyl Screen Ur Barbiturates Screen Lamotrigine Ur Phencyclidine Scrn Ur Amphetamines Screen U Benzodiazepines Scrn Urine Cocaine Screen U Marijuana (THC) Screen Ethyl Alcohol COVID-19 (TANA) COVID-Vhoto 07/02/22 07/03/22 07/03/22 23:37 07:51 12:36 WBC RBC Hgb Hct MCV MCH MCHC RDW Plt Count MPV Immature Gran % (Auto) Neut % (Auto) Lymph % (Auto) [place] % (Auto) Eos % (Auto) Baso % (Auto) Lymph # (Auto) [place] # (Auto) Eos # (Auto) Baso # (Auto) Abs Immat Gran (auto) Absolute Neuts (auto) Absolute Nucleated RBC Nucleated RBC % (auto) Sodium Potassium Chloride Carbon Dioxide Anion Gap BUN Creatinine Estim Creat Clear Calc Estimated GFR POC Glucose 159 H 136 H 212 H Random Glucose Fasting Glucose Estimat Average Glucose Hemoglobin A1c % Calcium Total Bilirubin Direct Bilirubin AST ALT Alkaline Phosphatase Troponin I High Sens Total Protein Albumin Triglycerides Cholesterol LDL Cholesterol, Calc HDL Cholesterol Lipase Vitamin B12 Folate TSH Urine Color Urine Appearance Urine pH Ur Specific [place] Urine Protein Urine Glucose (UA) Urine Ketones Urine Blood Urine Nitrite Ur Leukocyte Esterase Urine RBC Urine WBC Ur Squamous Epith Cells Urine Bacteria Hyaline Casts Urine Opiates Screen Urine Fentanyl Screen Ur Barbiturates Screen Lamotrigine Ur Phencyclidine Scrn Ur Amphetamines Screen U Benzodiazepines Scrn Urine Cocaine Screen U Marijuana (THC) Screen Ethyl Alcohol COVID-19 (TANA) COVID-19 [place] Translate 07/03/22 07/03/22 07/04/22 16:28 19:29 08:05 WBC RBC Hgb Hct MCV MCH MCHC RDW Plt Count MPV Immature Gran % (Auto) Neut % (Auto) Lymph % (Auto) [place] % (Auto) Eos % (Auto) Baso % (Auto) Lymph # (Auto) [place] # (Auto) Eos # (Auto) Baso # (Auto) Abs Immat Gran (auto) Absolute Neuts (auto) Absolute Nucleated RBC Nucleated RBC % (auto) Sodium Potassium Chloride Carbon Dioxide Anion Gap BUN Creatinine Estim Creat Clear Calc Estimated GFR POC Glucose 233 H 246 H 224 H Random Glucose Fasting Glucose Estimat Average Glucose Hemoglobin A1c % Calcium Total Bilirubin Direct Bilirubin AST ALT Alkaline Phosphatase Troponin I High Sens Total Protein Albumin Triglycerides Cholesterol LDL Cholesterol, Calc HDL Cholesterol Lipase Vitamin B12 Folate TSH Urine Color Urine Appearance Urine pH Ur Specific [place] Urine Protein Urine Glucose (UA) Urine Ketones Urine Blood Urine Nitrite Ur Leukocyte Esterase Urine RBC Urine WBC Ur Squamous Epith Cells Urine Bacteria Hyaline Casts Urine Opiates Screen Urine Fentanyl Screen Ur Barbiturates Screen Lamotrigine Ur Phencyclidine Scrn Ur Amphetamines Screen U Benzodiazepines Scrn Urine Cocaine Screen U Marijuana (THC) Screen Ethyl Alcohol COVID-19 (TANA) COVID-19 Clin Com Imaging Diagnostic Imaging Impressions Head CT 07/02/22 23:10 IMPRESSION: No acute intracranial pathology. DS: Summary Hospital Course Hospital Course: Pt is a 62 yo Male with a history of MDD, chronic back and knee pain, ambulates in a wheelchair and long history of crack cocaine abuse who now presents for depression with SI in the face of relapsing on crack cocaine and non-adherence with medication or follow-up. Hospital course: On admission, depression and SI which quickly abated. He was restarted on home medications. Pt soon returned to baseline; SI and depression fully resolved and remained so. He agreed to dc Lamictal give stability w/out it and hx of poor adherence. He was initially ambivalent about treatment for substance abuse, saying he does not like it but knows he needs it; he eventually agreed to self-present for section 35 and also to get a repayee. Pt asked for small increase in Suboxone for pain which he found helpful. Pt remained in good mood and with bright affect. He was appropriate with peers and staff, attending groups and forthcoming in 1:1 meetings. 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 He is not in imminent risk for harm to self or others and appropriate to continue treatment in the community. On discharge, pt self presenting and was accepted for a Section 35. Pt complained of left elbow pain, likely s/p fall; Xray: IMPRESSION: *No evidence of acute left humeral fracture or malalignment. ? *Moderate olecranon spurring at the triceps insertion site. Subtle lucency within the spur, of uncertain significance, with an undisplaced fracture of the spur, of indeterminate age, not excluded. *Limited incomplete evaluation of the elbow joint on the provided views. Dedicated elbow radiographs of further evaluation as clinically warranted. *Moderate acromioclavicular arthritis Time spent discussing smoking cessation with patient: 3 to 10 minutes Status at Discharge Functional status at discharge: independent ambulation Overall status at discharge: patient is back to baseline Time Spent with Patient Time attestation: Total time managing care of this patient today ____ minutes. Time spent: Greater than 30 minutes Discharge Plan Discharge Anticipated Discharge Date/Time: 07/04/22 11:30 Patient Disposition: Home, Self-Care Discharge Diagnosis: MDD, severe, moderate w/out psychotic symptoms, in full remisssion Referrals: Sepideh Schmidt: [facility] [Other] - 08/04/22 11:00 am (Initial Psychiatric Evaluation for medication Management Appointment is by [facility].) Sepideh Schmidt: [facility] [Other] - 09/03/22 10:00 am (Medication Management appointment Appointment is by tele-health) Rosalinda Chris: [facility] [Other] - 07/09/22 2:00 pm (Initial Diagnostic Evaluation for Therapy Appointment is in person at [facility] in [place] Patient must show for initial intake or services may be subject to being closed and you will be unable to have medication management services.) JUSTINO CHOWDHURY [Other] - 1 Week (LEFT MESSAGE WITH OFFICE TO CALL US BACK OR CALL PT. WITH FOLLOW-UP APPOINTMENT.) Physician,Zena J [Primary Care Provider] - 1 Week Discharge Medications: New nicotine 21 mg/24 hr Patch 24 Hour 21 mg transdermal DAILY PRN (Reason: smoking cessation) Qty: 0 0RF buprenorphine-naloxone [Suboxone] 2-0.5 mg Film 1 film sublingual QID Qty: 0 0RF Rx Instructions: take with Suboxone 4/1mg (for total of 6/1.5mg QID) buprenorphine-naloxone [Suboxone] 4-1 mg Film 1 film sublingual QID Qty: 0 0RF Rx Instructions: take with Suboxone 2/0.5mg (for total of 6/1.5mg QID) magnesium hydroxide [Milk of Magnesia] 400 mg/5 mL Suspension 30 ml PO DAILY PRN (Reason: Constipation) Qty: 0 0RF Continued hydroxyzine HCl 25 mg tablet 1 tab PO Q6H PRN (Reason: Anxiety) quetiapine 25 mg Tablet 25 mg PO DAILY 30 Days Qty: 30 0RF quetiapine 300 mg tablet 300 mg PO BEDTIME 30 Days Qty: 30 0RF glyburide 5 mg Tablet 5 mg PO DAILY 30 Days Qty: 30 0RF gabapentin 800 mg tablet 800 mg PO TID 30 Days Qty: 90 0RF docusate sodium 100 mg Capsule 200 mg PO BEDTIME 30 Days Qty: 60 0RF Rx Instructions: hold for loose stool lisinopril 5 mg Tablet 5 mg PO DAILY 30 Days Qty: 30 0RF Protocol: Hold for SBP< HOLD for SBP < : 90 metformin 500 mg tablet 2 tab PO BID acetaminophen 325 mg tablet 2 tab PO TID PRN (Reason: Pain) alum-mag hydroxide-simeth [Sury-Mox Antacid-[place]ig[place]] 200-200-20 mg/5 mL Suspension 30 ml PO TIDWM Rx Instructions: administer between meals and at bedtime fluticasone propionate 50 mcg/actuation [place],Suspension 1 spray INTRANASAL DAILY Rx Instructions: administer into each nostril loratadine 10 mg Tablet 10 mg PO DAILY cholecalciferol (vitamin D3) 50 mcg (2,000 unit) Tablet 50 mcg PO DAILY atorvastatin 40 mg tablet 40 mg PO DAILY magnesium oxide 400 mg (241.3 mg magnesium) tablet 400 mg PO DAILY pantoprazole 40 mg tablet,delayed release (DR/EC) 40 mg PO DAILY metoprolol succinate 25 mg tablet extended release 24 hr 25 mg PO DAILY Protocol: Hold for SBP/HR < HOLD for SBP < : 90 HOLD for HR < : 60 duloxetine 60 mg capsule,delayed release(DR/EC) 60 mg PO DAILY fenofibrate 54 mg tablet 54 mg PO DAILY Discontinued buprenorphine-naloxone [Suboxone] 4-1 mg film 1 film sublingual QID lamotrigine 25 mg tablet 75 mg PO BEDTIME Discharge Orders: Discharge Order (Routine); Ordered 07/04/22 Ordered By: Chapincito Gonzalez Diet: Diabetic diet Activity on Discharge: As tolerated Stand Alone Forms: Patient Portal Discharge page, Community Support Care Plan Goals: Maintain mood and safe behaviors Take medications as prescribed Continue to pursue sobriety Practice coping skills Continue with outpatient providers and reach out to them as needed Health Concerns: Mood stability and behaviors Sobriety Diabetes HTN Gait disorder Chronic pain syndrome Plan of Treatment: Follow up with your PCP, psychiatric provider and other outpatient providers regarding above concerns Take medications as prescribed Assessment: Risk assessment at time of discharge:? Patient was interviewed prior to discharge and found to be fully oriented and without any SI or HI. Patient has insight and demonstrates good judgment in terms of wanting to pursue treatment. Patient is not in imminent risk of harm to self or others and has a safety plan that includes presenting to the closest ER or calling 911 if feeling unsafe.? Patient has been observed closely by nursing and unit staff throughout admission; patient has not engaged in any behaviors that suggest dangerousness to self or others and has demonstrated appropriate behaviors and impulse control Discharge Date/Time: 07/04/22 11:53
== END 2022-07-04 11:53 | disposition home or self-care (01) | DRG 885 ==
LOC: HO.ED 14:11 → HO.PM5 18:30
PROVIDERS: Hospitalist; Psychiatry & Neurology Psychiatry; Admitting Provider Psychiatry & Neurology Psychiatry; Emergency Provider Emergency Medicine Emergency Medical Services; Visit Provider Psychiatry & Neurology Psychiatry
DX: F33.1 Major depressive disorder, recurrent, moderate (principal); R45.851 Suicidal ideations; F11.20 Opioid dependence, uncomplicated; E87.1 Hypo-osmolality and hyponatremia; E11.65 Type 2 diabetes mellitus with hyperglycemia; F19.10 Other psychoactive substance abuse, uncomplicated; I44.0 Atrioventricular block, first degree; F17.210 Nicotine dependence, cigarettes, uncomplicated; M79.602 Pain in left arm; R26.89 Other abnormalities of gait and mobility; Z20.822 Contact with and (suspected) exposure to COVID-19; Z87.820 Personal history of traumatic brain injury; Z71.6 Tobacco abuse counseling; Z79.84 Long term (current) use of oral hypoglycemic drugs; Z79.51 Long term (current) use of inhaled steroids; Z79.899 Other long term (current) drug therapy
CPT/HCPCS: 36415; 70450; 73060; 80048; 80053; 80061; 80175; 80307; 81001; 82077; 82248; 82607; 82746; 82947; 83036; 83690; 84443; 84484; 85025; 87635; 93005; 99285

== ENCOUNTER 2022-09-05 06:14 | Emergency (ER) | payer OTHER, MEDICAID, SELFPAY ==
[2022-09-05 06:27] VITALS: BP 133/72; PULSE 80; RESP 18; TEMP 36.8; O2SAT 95
[2022-09-05 06:30] VITALS: BP 162/94; PULSE 81; RESP 18; O2SAT 95; BMI 27.5
--- NOTE | 2022-09-05 06:30 | ED.PSYCH ---
HPI - Psych General Chief Complaint: Psychiatric Symptoms <LAYNE Choudhary - Last Filed: 09/05/22 15:32> Stated Complaint: si <LAYNE Choudhary - Last Filed: 09/05/22 15:32> Time Seen by Provider: 09/05/22 06:28 <LAYNE Choudhary Last Filed: 09/05/22 15:32> Source: patient, EMS and old records reviewed <LAYNE Choudhary Last Filed: 09/05/22 15:32> Mode of arrival: EMS <LAYNE Choudhary - Last Filed: 09/05/22 15:32> Limitations: no limitations <LAYNE Choudhary Last Filed: 09/05/22 15:32> History of Present Illness HPI Narrative: 62 yo male wheelchair bound male with history of CVA, DM2, anemia, HTN, crack cocaine use, who presents to the ER from home via EMS for evaluation of depression, suicidal ideation with plan to overdose on drugs. He states he has been on a chaves and been trying to overdose on crack cocaine. He is tearful and crying on arrival. He states everyone in his life is so nice to him but he lies to them and is mean to them. He states he deserves to . He denies any alcohol use. <LAYNE Choudhary - Last Filed: 09/05/22 15:32> MD complaint: suicidal ideation, feels depressed and substance abuse <LAYNE Choudhary - Last Filed: 09/05/22 15:32> Onset (ago): day(s) <LAYNE Choudhary Last Filed: 09/05/22 15:32> Duration: changing over time <LAYNE Choudhary - Last Filed: 09/05/22 15:32> Relieving factors: none <LAYNE Choudhary Last Filed: 09/05/22 15:32> Exacerbating factors: drug use <LAYNE Choudhary Last Filed: 09/05/22 15:32> Context: recent drug abuse <LAYNE Choudhary Last Filed: 09/05/22 15:32> Associated psychiatric symptoms: depression and suicidal ideation <LAYNE Choudhary Last Filed: 09/05/22 15:32> Associated symptoms: insomnia <LAYNE Choudhary - Last Filed: 09/05/22 15:32> Treatments prior to arrival: placed on mental health hold <LAYNE Choudhary - Last Filed: 09/05/22 15:32> If self harm: admits thoughts of self harm and has plan <LAYNE Choudhary - Last Filed: 09/05/22 15:32> Related Data Home Medications: Home Medications Medication Instructions Recorded Confirmed acetaminophen 325 mg tablet 2 tab PO TID PRN Pain 01/01/22 06/27/22 aluminum-mag hydroxide-simethicone 30 ml PO TIDWM 01/01/22 06/27/22 200 mg-200 mg-20 mg/5 mL oral susp (Sury-Mox Antacid-[place]as) atorvastatin 40 mg tablet 40 mg PO DAILY 01/01/22 06/27/22 cholecalciferol (vitamin D3) 50 50 mcg PO DAILY 01/01/22 06/27/22 mcg (2,000 unit) tablet duloxetine 60 mg capsule,delayed 60 mg PO DAILY 01/01/22 06/27/22 release fenofibrate 54 mg tablet 54 mg PO DAILY 01/01/22 06/27/22 fluticasone propionate 50 1 spray intranasal DAILY 01/01/22 06/27/22 mcg/actuation nasal spray,suspension loratadine 10 mg tablet 10 mg PO DAILY 01/01/22 06/27/22 magnesium oxide 400 mg (241.3 mg 400 mg PO DAILY 01/01/22 06/27/22 magnesium) tablet metformin 500 mg tablet 2 tab PO BID 01/01/22 06/27/22 metoprolol succinate 25 mg 25 mg PO DAILY 01/01/22 06/27/22 tablet,extended release 24 hr pantoprazole 40 mg tablet,delayed 40 mg PO DAILY 01/01/22 06/27/22 release hydroxyzine HCl 25 mg tablet 1 tab PO Q6H PRN Anxiety 06/02/22 06/27/22 Previous Rx's Medication Instructions Recorded docusate sodium 100 mg capsule 200 mg PO BEDTIME 30 days #60 caps 11/08/21 gabapentin 800 mg tablet 800 mg PO TID 30 days #90 tabs 11/08/21 glyburide 5 mg tablet 5 mg PO DAILY 30 days #30 tabs 11/08/21 lisinopril 5 mg tablet 5 mg PO DAILY 30 days #30 tabs 11/08/21 quetiapine 25 mg tablet 25 mg PO DAILY 30 days #30 tabs 11/08/21 quetiapine 300 mg tablet 300 mg PO BEDTIME 30 days #30 tabs 11/08/21 buprenorphine 2 mg-naloxone 0.5 mg 1 film sublingual QID #0 ea 07/04/22 sublingual film (Suboxone) buprenorphine 4 mg-naloxone 1 mg 1 film sublingual QID #0 ea 07/04/22 sublingual film (Suboxone) magnesium hydroxide 400 mg/5 mL 30 ml PO DAILY PRN Constipation #0 07/04/22 oral suspension (Milk of Magnesia) mL nicotine 21 mg/24 hr daily 21 mg transdermal DAILY PRN 07/04/22 transdermal patch smoking cessation #0 ea <LAYNE Choudhary - Last Filed: 09/05/22 15:32> Allergies/Adverse Reactions: Allergies Allergy/AdvReac Type Severity Reaction Status Date / Time No Known Allergies Allergy Verified 05/31/21 11:24 <LAYNE Choudhary - Last Filed: 09/05/22 15:32> Review of Systems Review of Systems: Yes all other systems are reviewed and are negative <LAYNE Choudhary - Last Filed: 09/05/22 15:32> PMFSH Past Medical History Medical History: Medical History Acute blood loss anemia Cerebral infarction Cocaine use disorder, moderate, dependence Diabetes HTN (hypertension) MDD (major depressive disorder), recurrent episode, moderate Multifactorial gait disorder Opioid use disorder, mild, in sustained remission <LAYNE Choudhary - Last Filed: 09/05/22 15:32> Social History Social History: Social History Household Members: Other Housing: Apartment Housing Other:: soliders on Do you presently have visiting nurse or other home services: Yes Unable to assess alcohol history related to: Unknown Alcohol intake: current Alcohol intake frequency: holidays/special occasions only Patient Tobacco Use Status: Current everyday Tobacco user Tobacco use type: Cigarette Cigarette Packs Per Day: 2 Cigarettes Per Day: 40.0 Years Smoked: 12 Smoked in Last 30 Days: Yes e-Cigarette/Vaping Use: Never Used Second Hand Smoke Exposure: No Use of substances other than those prescribed or required for medical reasons: Yes Substance Use Type: Crack/Cocaine Substance Use Frequency: Chronic Longstanding Last Used Substance: Just Prior to Admission Any prior treatment program specific to substance use: No Advance Directives: No Advance Directives Information Provided: No Healthcare Proxy: No Guardian: No service: Yes ([employer], [employer]) Current occupational status: disabled Sexual orientation: Decline to Answer <LAYNE Choudhary - Last Filed: 09/05/22 15:32> Physical Exam Vital Signs: Vital Signs: Last Vital Signs Temp 98.0 F 09/06/22 02:15 Pulse 80 09/06/22 05:22 Resp 16 09/06/22 05:22 BP 130/73 09/06/22 05:22 Pulse Ox 94 09/06/22 05:22 O2 Del Method Room Air 09/06/22 05:22 BMI result Body Mass Index 27.5 <LAYNE Choudhary - Last Filed: 09/05/22 15:32> Vital Signs: Last Vital Signs Temp 98.0 F 09/06/22 02:15 Pulse 80 09/06/22 05:22 Resp 16 09/06/22 05:22 BP 130/73 09/06/22 05:22 Pulse Ox 94 09/06/22 05:22 O2 Del Method Room Air 09/06/22 05:22 BMI result Body Mass Index 27.5 <LAYNE Rossi - Last Filed: 09/06/22 10:59> Appearance: Alert. Oriented X3. Poorly kempt, crying and tearful Head: normocephalic, atraumatic. Eyes: Pupils equal, round and reactive to light. ENT: Pharynx normal. No tonsillar swelling or exudate. No dentition present. Neck: Normal inspection. Neck supple. CVS: Normal heart rate and rhythm. Pulses normal. Respiratory: No respiratory distress. Breath sounds normal. Abdomen: Soft and nontender. +BS x4 Skin: Skin warm and dry. Normal skin color. Normal skin turgor. No rashes. Extremities: No lower extremity edema. No joint swelling. several superfician wounds on all 4 extremities, in various stages of healing. Neuro/psych: Oriented X 3. LE weakness, L>R, CN II-XII intact. Slurred speech, difficult to understand, suicidal, depressed mood, repetitive statements <LAYNE Choudhary - Last Filed: 09/05/22 15:32> Course Reevaluation(s) Reevaluation #1: Physician observation started at 07:40. Patient placed in physician observation because patient is awaiting CARE team evaluation for the possible need of inpatient psych admission. At the time observation was started patient's vital signs were stable. Patient is alert and oriented. Neuro exam is baseline for him CV: RRR and lungs are clear. Will continue to monitor. <LAYNE Choudhary - Last Filed: 09/05/22 15:32> Time: 07:41 <LAYNE Choudhary - Last Filed: 09/05/22 15:32> Reevaluation #2: Patient seen and evaluated by the care team was recommending recovery team evaluation. Patient does qualify for recovery and no beds available. Plan is a follow-up with the care team regarding recommendations on discharge. <LAYNE Choudhary - Last Filed: 09/05/22 15:32> Time: 15:30 <LAYNE Choudhary - Last Filed: 09/05/22 15:32> Reevaluation #3: There is no recovery team at this time and patient is requesting to go home. He denies any SI or HI. He is clinically sober. Therefore he will be transported back home via EMS with outpatient referrals so he can try to find a detox while he is at home and to return if any new or worsening symptoms. Patient understands agrees with this plan. <LAYNE Rossi - Last Filed: 09/06/22 10:59> Time: 10:58 <LAYNE Rossi - Last Filed: 09/06/22 10:59> Consultations Consultation #1: CARE team <LAYNE Choudhary - Last Filed: 09/05/22 15:32> Medications Administered Discontinued Medications Generic Name Dose Route Start Last Admin Trade Name Freq PRN Reason Stop Dose Admin Lorazepam 1 mg 09/05/22 07:15 05/12/23 07:23 Lorazepam 1 Mg Tablet PO 09/05/22 07:16 1 mg ONCE ONE Administration Lorazepam 1 mg 09/05/22 08:02 09/05/22 08:05 Lorazepam 1 Mg Tablet PO 09/05/22 08:03 1 mg ONCE ONE Administration <LAYNE Choudhary - Last Filed: 09/05/22 15:32> Medications Administered Discontinued Medications Generic Name Dose Route Start Last Admin Trade Name Chrystal PRN Reason Stop Dose Admin Lorazepam 1 mg 09/05/22 07:15 09/05/22 07:23 Lorazepam 1 Mg Tablet PO 09/05/22 07:16 1 mg ONCE ONE Administration Lorazepam 1 mg 09/05/22 08:02 09/05/22 08:05 Lorazepam 1 Mg Tablet PO 09/05/22 08:03 1 mg ONCE ONE Administration <LAYNE Rossi - Last Filed: 09/06/22 10:59> Medical Decision Making Medical Decision Making MDM Narrative: 62-year-old male with history of chronic pain, strokes, wheelchair bound, polysubstance abuse, diabetes who presents to the ER via EMS for evaluation of suicidal ideation in the setting of a crack cocaine binge. He is tearful on arrival, repetitive statements of guilt and regret. He states he does not want to live any longer. He states he was trying to overdose on crack cocaine but has not been successful. Medically cleared. Pending care team evaluation and safe disposition. <LAYNE Choudhary - Last Filed: 09/05/22 15:32> Differential Diagnosis Differential Diagnoses: The differential diagnosis associated with the presentation includes <LAYNE Choudhary Last Filed: 09/05/22 15:32> substance induced mood disorder, acute psychosis, schizophrenia, schizoaffective disorder, PTSD, bipolar disorder, major depression with psychotic features <LAYNE Choudhary Last Filed: 09/05/22 15:32> Admission/Observation Consideration of admission/observation: Escalation of care including admission/observation considered <LAYNE Choudhary - Last Filed: 09/05/22 15:32> Consult Healthcare Provider Management of the patient was discussed with: Exercise Physiology Professor <LAYNE Choudhary Last Filed: 09/05/22 15:32> Recovery team and care team <LAYNE Choudhary - Last Filed: 09/05/22 15:32> Lab Data MDM Lab Attestation statement: I reviewed the patient's lab results. <LAYNE Choudhary - Last Filed: 09/05/22 15:32> chronic mild hyponatremia <LAYNE Choudhary - Last Filed: 09/05/22 15:32> Result Diagrams: 09/05/22 06:42 09/05/22 06:42 <LAYNE Choudhary - Last Filed: 09/05/22 15:32> Labs: Lab Results 09/05/22 09/05/22 09/05/22 Range/Units 06:42 06:42 06:42 WBC 9.6 (4.8-10.8) X10*3/uL RBC 4.77 (4.60-5.80) X10*6/uL Hgb 13.0 L (14.0-18.0) g/dl Hct 38.8 L (42.0-52.0) % MCV 81.3 (80.0-98.0) fL MCH 27.3 (27.0-33.0) pg MCHC 33.5 (31.0-36.0) g/dl RDW 15.9 (11.0-16.0) % Plt Count 292 (160-400) X10*3/uL MPV 9.4 (9.4-12.4) fL Immature Gran % (Auto) 0.4 (0.0-0.4) % Neut % (Auto) 64.7 (45-73) % Lymph % (Auto) 20.0 (20-40) % [place] % (Auto) 12.7 H (2-11) % Eos % (Auto) 1.6 (0-4) % Baso % (Auto) 0.6 (0-2) % Lymph # (Auto) 1.9 (1.2-4.9) X10*3/uL [place] # (Auto) 1.2 (0.1-1.2) X10*3/uL Eos # (Auto) 0.2 (0.0-0.4) X10*3/uL Baso # (Auto) 0.1 (0.0-0.2) X10*3/uL Abs Immat Gran (auto) 0.04 H (0.00-0.03) X10*3/uL Absolute Neuts (auto) 6.2 (2.0-8.3) x10*3/uL Absolute Nucleated RBC 0.000 (0.0-0.012) X10*3/uL Nucleated RBC % (auto) 0.0 (0.0-0.2) /100WBC Sodium 132 L (135-145) mmol/L Potassium 4.2 (3.3-5.1) mmol/L Chloride 99 (96-108) mmol/L Carbon Dioxide 23 (22-29) mmol/L Anion Gap 14 (12-20) BUN 40 H (9-16) mg/dL Creatinine 1.11 (0.5-1.4) mg/dL Estim Creat Clear Calc 70.7 Estimated GFR > 60 Random Glucose 221 H (60-115) mg/dL Calcium 9.9 D (8.4-10.2) mg/dL Magnesium 1.9 (1.6-2.6) mg/dL Total Bilirubin 0.9 (0.0-1.0) mg/dL Direct Bilirubin 0.3 (0.0-0.5) mg/dL AST 85 H (5-37) U/L ALT 43 H (0-40) U/L Alkaline Phosphatase 88 (39-117) U/L Total Protein 8.1 H (6.5-8.0) g/dL Albumin 4.7 (3.5-5.0) g/dL Urine Color Urine Appearance Urine pH (5.0-9.0) Ur Specific [place] (1.005-1.025) Urine Protein (Neg-Trace) mg/dL Urine Glucose (UA) (Negative) mg/dL Urine Ketones (Negative) mg/dL Urine Blood (Negative) Urine Nitrite (Negative) Ur Leukocyte Esterase (Negative) Urine Opiates Screen (Not Detect) Urine Fentanyl Screen (Not Detect) Ur Barbiturates Screen (Not Detect) Ur Phencyclidine Scrn (Not Detect) Ur Amphetamines Screen (Not Detect) U Benzodiazepines Scrn (Not Detect) Urine Cocaine Screen (Not Detect) U Marijuana (THC) Screen (Not Detect) Ethyl Alcohol mg/dL COVID-19 (TANA) Negative (Negative) COVID-19 Clin Com See Note 0509/05/22 09/05/22 Range/Units 06:42 10:25 10:25 WBC (4.8-10.8) X10*3/uL RBC (4.60-5.80) X10*6/uL Hgb (14.0-18.0) g/dl Hct (42.0-52.0) % MCV (80.0-98.0) fL MCH (27.0-33.0) pg MCHC (31.0-36.0) g/dl RDW (11.0-16.0) % Plt Count (160-400) X10*3/uL MPV (9.4-12.4) fL Immature Gran % (Auto) (0.0-0.4) % Neut % (Auto) (45-73) % Lymph % (Auto) (20-40) % [place] % (Auto) (2-11) % Eos % (Auto) (0-4) % Baso % (Auto) (0-2) % Lymph # (Auto) (1.2-4.9) X10*3/uL [place] # (Auto) (0.1-1.2) X10*3/uL Eos # (Auto) (0.0-0.4) X10*3/uL Baso # (Auto) (0.0-0.2) X10*3/uL Abs Immat Gran (auto) (0.00-0.03) X10*3/uL Absolute Neuts (auto) (2.0-8.3) x10*3/uL Absolute Nucleated RBC (0.0-0.012) X10*3/uL Nucleated RBC % (auto) (0.0-0.2) /100WBC Sodium (135-145) mmol/L Potassium (3.3-5.1) mmol/L Chloride (96-108) mmol/L Carbon Dioxide (22-29) mmol/L Anion Gap (12-20) BUN (9-16) mg/dL Creatinine (0.5-1.4) mg/dL Estim Creat Clear Calc Estimated GFR Random Glucose (60-115) mg/dL Calcium (8.4-10.2) mg/dL Magnesium (1.6-2.6) mg/dL Total Bilirubin (0.0-1.0) mg/dL Direct Bilirubin (0.0-0.5) mg/dL AST (5-37) U/L ALT (0-40) U/L Alkaline Phosphatase (39-117) U/L Total Protein (6.5-8.0) g/dL Albumin (3.5-5.0) g/dL Urine Color Yellow Urine Appearance Clear Urine pH 5.5 (5.0-9.0) Ur Specific [place] >= 1.030 H (1.005-1.025) Urine Protein Trace (Neg-Trace) mg/dL Urine Glucose (UA) 500 H (Negative) mg/dL Urine Ketones Negative (Negative) mg/dL Urine Blood Negative (Negative) Urine Nitrite Negative (Negative) Ur Leukocyte Esterase Negative (Negative) Urine Opiates Screen Not Detected (Not Detect) Urine Fentanyl Screen Not Detected (Not Detect) Ur Barbiturates Screen Not Detected (Not Detect) Ur Phencyclidine Scrn Not Detected (Not Detect) Ur Amphetamines Screen Not Detected (Not Detect) U Benzodiazepines Scrn Not Detected (Not Detect) Urine Cocaine Screen POSITIVE H (Not Detect) U Marijuana (THC) Screen Not Detected (Not Detect) Ethyl Alcohol < 10 mg/dL COVID-19 (TANA) (Negative) COVID-19 Clin Com <LAYNE Choudhary - Last Filed: 09/05/22 15:32> Lab Results 09/05/22 09/05/22 09/05/22 Range/Units 06:42 06:42 06:42 WBC 9.6 (4.8-10.8) X10*3/uL RBC 4.77 (4.60-5.80) X10*6/uL Hgb 13.0 L (14.0-18.0) g/dl Hct 38.8 L (42.0-52.0) % MCV 81.3 (80.0-98.0) fL MCH 27.3 (27.0-33.0) pg MCHC 33.5 (31.0-36.0) g/dl RDW 15.9 (11.0-16.0) % Plt Count 292 (160-400) X10*3/uL MPV 9.4 (9.4-12.4) fL Immature Gran % (Auto) 0.4 (0.0-0.4) % Neut % (Auto) 64.7 (45-73) % Lymph % (Auto) 20.0 (20-40) % [place] % (Auto) 12.7 H (2-11) % Eos % (Auto) 1.6 (0-4) % Baso % (Auto) 0.6 (0-2) % Lymph # (Auto) 1.9 (1.2-4.9) X10*3/uL [place] # (Auto) 1.2 (0.1-1.2) X10*3/uL Eos # (Auto) 0.2 (0.0-0.4) X10*3/uL Baso # (Auto) 0.1 (0.0-0.2) X10*3/uL Abs Immat Gran (auto) 0.04 H (0.00-0.03) X10*3/uL Absolute Neuts (auto) 6.2 (2.0-8.3) x10*3/uL Absolute Nucleated RBC 0.000 (0.0-0.012) X10*3/uL Nucleated RBC % (auto) 0.0 (0.0-0.2) /100WBC Sodium 132 L (135-145) mmol/L Potassium 4.2 (3.3-5.1) mmol/L Chloride 99 (96-108) mmol/L Carbon Dioxide 23 (22-29) mmol/L Anion Gap 14 (12-20) BUN 40 H (9-16) mg/dL Creatinine 1.11 (0.5-1.4) mg/dL Estim Creat Clear Calc 70.7 Estimated GFR > 60 Random Glucose 221 H (60-115) mg/dL Calcium 9.9 D (8.4-10.2) mg/dL Magnesium 1.9 (1.6-2.6) mg/dL Total Bilirubin 0.9 (0.0-1.0) mg/dL Direct Bilirubin 0.3 (0.0-0.5) mg/dL AST 85 H (5-37) U/L ALT 43 H (0-40) U/L Alkaline Phosphatase 88 (39-117) U/L Total Protein 8.1 H (6.5-8.0) g/dL Albumin 4.7 (3.5-5.0) g/dL Urine Color Urine Appearance Urine pH (5.0-9.0) Ur Specific [place] (1.005-1.025) Urine Protein (Neg-Trace) mg/dL Urine Glucose (UA) (Negative) mg/dL Urine Ketones (Negative) mg/dL Urine Blood (Negative) Urine Nitrite (Negative) Ur Leukocyte Esterase (Negative) Urine Opiates Screen (Not Detect) Urine Fentanyl Screen (Not Detect) Ur Barbiturates Screen (Not Detect) Ur Phencyclidine Scrn (Not Detect) Ur Amphetamines Screen (Not Detect) U Benzodiazepines Scrn (Not Detect) Urine Cocaine Screen (Not Detect) U Marijuana (THC) Screen (Not Detect) Ethyl Alcohol mg/dL COVID-19 (TANA) Negative (Negative) COVID-19 Clin Com See Note 09/05/22 09/05/22 09/05/22 Range/Units 06:42 10:25 10:25 WBC (4.8-10.8) X10*3/uL RBC (4.60-5.80) X10*6/uL Hgb (14.0-18.0) g/dl Hct (42.0-52.0) % MCV (80.0-98.0) fL MCH (27.0-33.0) pg MCHC (31.0-36.0) g/dl RDW (11.0-16.0) % Plt Count (160-400) X10*3/uL MPV (9.4-12.4) fL Immature Gran % (Auto) (0.0-0.4) % Neut % (Auto) (45-73) % Lymph % (Auto) (20-40) % [place] % (Auto) (2-11) % Eos % (Auto) (0-4) % Baso % (Auto) (0-2) % Lymph # (Auto) (1.2-4.9) X10*3/uL [place] # (Auto) (0.1-1.2) X10*3/uL Eos # (Auto) (0.0-0.4) X10*3/uL Baso # (Auto) (0.0-0.2) X10*3/uL Abs Immat Gran (auto) (0.00-0.03) X10*3/uL Absolute Neuts (auto) (2.0-8.3) x10*3/uL Absolute Nucleated RBC (0.0-0.012) X10*3/uL Nucleated RBC % (auto) (0.0-0.2) /100WBC Sodium (135-145) mmol/L Potassium (3.3-5.1) mmol/L Chloride (96-108) mmol/L Carbon Dioxide (22-29) mmol/L Anion Gap (12-20) BUN (9-16) mg/dL Creatinine (0.5-1.4) mg/dL Estim Creat Clear Calc Estimated GFR Random Glucose (60-115) mg/dL Calcium (8.4-10.2) mg/dL Magnesium (1.6-2.6) mg/dL Total Bilirubin (0.0-1.0) mg/dL Direct Bilirubin (0.0-0.5) mg/dL AST (5-37) U/L ALT (0-40) U/L Alkaline Phosphatase (39-117) U/L Total Protein (6.5-8.0) g/dL Albumin (3.5-5.0) g/dL Urine Color Yellow Urine Appearance Clear Urine pH 5.5 (5.0-9.0) Ur Specific [place] >= 1.030 H (1.005-1.025) Urine Protein Trace (Neg-Trace) mg/dL Urine Glucose (UA) 500 H (Negative) mg/dL Urine Ketones Negative (Negative) mg/dL Urine Blood Negative (Negative) Urine Nitrite Negative (Negative) Ur Leukocyte Esterase Negative (Negative) Urine Opiates Screen Not Detected (Not Detect) Urine Fentanyl Screen Not Detected (Not Detect) Ur Barbiturates Screen Not Detected (Not Detect) Ur Phencyclidine Scrn Not Detected (Not Detect) Ur Amphetamines Screen Not Detected (Not Detect) U Benzodiazepines Scrn Not Detected (Not Detect) Urine Cocaine Screen POSITIVE H (Not Detect) U Marijuana (THC) Screen Not Detected (Not Detect) Ethyl Alcohol < 10 mg/dL COVID-19 (TANA) (Negative) COVID-19 Clin Com <LAYNE Rossi - Last Filed: 09/06/22 10:59> Independent Historian Clinical information obtained from an independent historian. History obtained from or confirmed by: EMS <LAYNE Choudhary Last Filed: 09/05/22 15:32> External Record Review External record reviewed: Outpatient record, Prior outpatient labs and Prior outpatient radiology <LAYNE Choudhary Last Filed: 09/05/22 15:32> Prescription Management I considered prescription management with: Other (antipsychotic) <LAYNE Choudhary Last Filed: 09/05/22 15:32> Chronic Conditions Patient?s care impacted by: Diabetes, Hypertension and Other (polysubstance abuse) <LAYNE Choudhary Last Filed: 09/05/22 15:32> Critical Care Time Critical Care Time Critical Care Time: No <LAYNE Choudhary Last Filed: 09/05/22 15:32> Discharge Plan Discharge Clinical Impression: Cocaine abuse <LAYNE Choudhary Last Filed: 09/05/22 15:32> Patient Disposition: Home, Self-Care <LAYNE Choudhary Last Filed: 09/05/22 15:32> Instructions: Cocaine Abuse (ED) <LAYNE Choudhary Last Filed: 09/05/22 15:32> Prescriptions: No Action hydroxyzine HCl 25 mg tablet 1 tab PO Q6H PRN (Reason: Anxiety) quetiapine 25 mg Tablet 25 mg PO DAILY 30 Days Qty: 30 0RF quetiapine 300 mg tablet 300 mg PO BEDTIME 30 Days Qty: 30 0RF glyburide 5 mg Tablet 5 mg PO DAILY 30 Days Qty: 30 0RF gabapentin 800 mg tablet 800 mg PO TID 30 Days Qty: 90 0RF docusate sodium 100 mg Capsule 200 mg PO BEDTIME 30 Days Qty: 60 0RF Rx Instructions: hold for loose stool lisinopril 5 mg Tablet 5 mg PO DAILY 30 Days Qty: 30 0RF Protocol: Hold for SBP< HOLD for SBP < : 90 metformin 500 mg tablet 2 tab PO BID acetaminophen 325 mg tablet 2 tab PO TID PRN (Reason: Pain) alum-mag hydroxide-simeth [Sury-Mox Antacid-[place]] 200-200-20 mg/5 mL Suspension 30 ml PO TIDWM Rx Instructions: administer between meals and at bedtime fluticasone propionate 50 mcg/actuation [place],Suspension 1 spray INTRANASAL DAILY Rx Instructions: administer into each nostril loratadine 10 mg Tablet 10 mg PO DAILY cholecalciferol (vitamin D3) 50 mcg (2,000 unit) Tablet 50 mcg PO DAILY atorvastatin 40 mg tablet 40 mg PO DAILY magnesium oxide 400 mg (241.3 mg magnesium) tablet 400 mg PO DAILY pantoprazole 40 mg tablet,delayed release (DR/EC) 40 mg PO DAILY metoprolol succinate 25 mg tablet extended release 24 hr 25 mg PO DAILY Protocol: Hold for SBP/HR < HOLD for SBP < : 90 HOLD for HR < : 60 duloxetine 60 mg capsule,delayed release(DR/EC) 60 mg PO DAILY fenofibrate 54 mg tablet 54 mg PO DAILY nicotine 21 mg/24 hr Patch 24 Hour 21 mg transdermal DAILY PRN (Reason: smoking cessation) Qty: 0 0RF buprenorphine-naloxone [Suboxone] 2-0.5 mg Film 1 film sublingual QID Qty: 0 0RF Rx Instructions: take with Suboxone 4/1mg (for total of 6/1.5mg QID) buprenorphine-naloxone [Suboxone] 4-1 mg Film 1 film sublingual QID Qty: 0 0RF Rx Instructions: take with Suboxone 2/0.5mg (for total of 6/1.5mg QID) magnesium hydroxide [Milk of Magnesia] 400 mg/5 mL Suspension 30 ml PO DAILY PRN (Reason: Constipation) Qty: 0 0RF <LAYNE Choudhary - Last Filed: 09/05/22 15:32> Referrals: Physician,Unknown J [Primary Care Provider] - 2 days (your pcp) <LAYNE Choudhary - Last Filed: 09/05/22 15:32> Interventions: [place]-Suicide Risk Severity Scale Last Done: 09/05/22 19:28 <LAYNE Choudhary - Last Filed: 09/05/22 15:32>
[2022-09-05 06:48] LABS: MANUAL DIFF FLAG NO
--- NOTE | 2022-09-05 06:48 | PC.NURSE ---
pt c/o generalized body aches 12/04 pain admits to using crack states he hasnt 'moved his bowels in months' pt has declared [place] [facility] [place] wants [place] kill himself VSS verbal reassurance call [facility] within reach of captain room service at bedside
[2022-09-05 06:49] LABS: Basophils Absolute Auto 0.1 X10*3/uL (0.0-0.2); Basophils Percent Auto 0.6 % (0-2); Eosinophils Absolute Auto 0.2 X10*3/uL (0.0-0.4); Eosinophils Percent Auto 1.6 % (0-4); Hematocrit 38.8 % (42.0-52.0); Imm Gran Abs Auto 0.04 X10*3/uL (0.00-0.03); Imm Gran Pct Auto 0.4 % (0.0-0.4); Lymphocytes Absolute Auto 1.9 X10*3/uL (1.2-4.9); Mean Corpuscular HGB Conc 33.5 g/dl (31.0-36.0); Mean Corpuscular Hemoglobin 27.3 pg (27.0-33.0); Mean Corpuscular Volume 81.3 fL (80.0-98.0); Mean Platelet Volume 9.4 fL (9.4-12.4); Monocytes Absolute Auto 1.2 X10*3/uL (0.1-1.2); Monocytes Percent Auto 12.7 % (2-11); Neutrophils Absolute Auto 6.2 x10*3/uL (2.0-8.3); Neutrophils Percent Auto 64.7 % (45-73); Platelet Count 292 X10*3/uL (160-400); Red Blood Count 4.77 X10*6/uL (4.60-5.80); Red Cell Distribution Width 15.9 % (11.0-16.0); White Blood Count 9.6 X10*3/uL (4.8-10.8)
[2022-09-05 07:01] LABS: COVID-19 Test Negative (Negative); IDNOW Serial# 6674DD1D
[2022-09-05 07:04] LABS: Ethanol < 10 mg/dL
[2022-09-05 07:05] LABS: Alanine Aminotransferase 43 U/L (0-40); Albumin Level 4.7 g/dL (3.5-5.0); Alkaline Phosphatase 88 U/L (39-117); Anion Gap 14 (12-20); Aspartate Amino Transferase 85 U/L (5-37); Bilirubin Direct 0.3 mg/dL (0.0-0.5); Bilirubin Total 0.9 mg/dL (0.0-1.0); Blood Urea Nitrogen 40 mg/dL (9-16); Calcium 9.9 mg/dL (8.4-10.2); Carbon Dioxide 23 mmol/L (22-29); Chloride 99 mmol/L (96-108); Creatinine Clr Calc Pharmacy 70.7; Estimated Glomerular Filt Rate > 60; Glucose Random 221 mg/dL (60-115); Magnesium 1.9 mg/dL (1.6-2.6); Potassium 4.2 mmol/L (3.3-5.1); Sodium 132 mmol/L (135-145); Total Protein 8.1 g/dL (6.5-8.0)
[2022-09-05 07:06] VITALS: BP 124/84; PULSE 82; RESP 18
--- NOTE | 2022-09-05 07:07 | PC.NURSE ---
Resumed care of patient this morning, he is stating he is still having thoughts of harming himself however he can, no plan in place. 1:1 present. Pt stating he is having 8/10 pain in his legs back and neck
[2022-09-05] MEDS: LORazepam 1 MG TABLET PO ×2 (07:23→08:05)
--- NOTE | 2022-09-05 07:52 | PC.NURSE ---
Pt continues to be tearful, Ativan given with little effect at this time, Breakfast tray ordered
--- NOTE | 2022-09-05 10:24 | PC.NURSE ---
Pt bladder scanned for 291, pt enouraged to pee, multiple attempts made, unable to void, straight cath for urine per provider
[2022-09-05 10:33] LABS: Appearance Urine Clear; Color Urine Yellow; Glucose Urine UA 500 mg/dL (Negative); Leukocyte Esterase Urine Negative (Negative); Nitrite Urine Negative (Negative); PH 5.5 (5.0-9.0); Specific Gravity - Urine >= 1.030 (1.005-1.025); Urine Blood Negative (Negative); Urine Ketones Negative (Negative); Urine Protein Trace mg/dL (Neg-Trace)
[2022-09-05 10:46] LABS: Amphetamine Screen Urine Not Detected (Not Detect); Barbiturates, Urine Not Detected (Not Detect); Benzodiazepines Screen Urine Not Detected (Not Detect); Cannabinoid Screen Urine Not Detected (Not Detect); Cocaine Screen Urine POSITIVE (Not Detect); Fentanyl, urine Not Detected (Not Detect); Opiate Screen Urine Not Detected (Not Detect); Phencyclidine Screen Urine Not Detected (Not Detect)
--- NOTE | 2022-09-05 14:10 | MHC.RECOVSUP ---
Met with pt in ED6 for recovery resources. T/W discussed harm reduction and provided recovery resources. T/W suggested pt [facility] until an [facility] facility can take him.
[2022-09-05 14:54] VITALS: BP 130/67; PULSE 79; RESP 18; O2SAT 94
[2022-09-05 18:55] VITALS: BP 139/70; PULSE 81; RESP 18; TEMP 36.6
--- NOTE | 2022-09-05 19:33 | PC.NURSE ---
pt assessed, drowsy, arousable to voice, sitter present
--- NOTE | 2022-09-05 19:37 | MHC.EDTECH ---
VSS, warm blanket given
[2022-09-06 02:15] VITALS: BP 118/68; PULSE 79; RESP 14; TEMP 36.7; O2SAT 93
[2022-09-06 03:27] VITALS: BP 126/73; PULSE 83; RESP 15; O2SAT 92
[2022-09-06 05:22] VITALS: BP 130/73; PULSE 80; RESP 16; O2SAT 94
--- NOTE | 2022-09-06 05:23 | PC.NURSE ---
pt assessed, slept during the shift. sitter present in room
--- NOTE | 2022-09-06 07:15 | PC.NURSE ---
Per Care Team, patient observer removed due to pt being recovery bed search and no longer si/hi
--- NOTE | 2022-09-06 07:59 | PC.NURSE ---
Pt awake, eating breakfast
--- NOTE | 2022-09-06 08:38 | PC.NURSE ---
Pt cleaned up, linens changed and sophia changed over. Pt resting comfortably in bed, call [facility]ingsley within reach
== END 2022-09-06 11:53 | disposition home or self-care (01) ==
PROVIDERS: Physician Assistant; Emergency Provider Emergency Medicine
DX: F14.10 Cocaine abuse, uncomplicated (principal); R45.851 Suicidal ideations; Z20.822 Contact with and (suspected) exposure to COVID-19; F19.10 Other psychoactive substance abuse, uncomplicated; F32.A Depression, unspecified; E11.9 Type 2 diabetes mellitus without complications; I10 Essential (primary) hypertension; F17.210 Nicotine dependence, cigarettes, uncomplicated; Z86.73 Personal history of transient ischemic attack (TIA), and cerebral infarction without residual deficits; Z79.02 Long term (current) use of antithrombotics/antiplatelets; Z79.84 Long term (current) use of oral hypoglycemic drugs; Z79.899 Other long term (current) drug therapy
CPT/HCPCS: 36415; 80048; 80076; 80307; 81003; 83735; 85025; 87635; 99285

== ENCOUNTER 2022-11-28 10:49 | Emergency (ER) | payer OTHER, MEDICAID, SELFPAY ==
--- NOTE | ~2022-11-28 | CT_ITS ---
EXAMINATION: CT HEAD WITHOUT CONTRAST CLINICAL INFORMATION: Status post fall with laceration. COMPARISON: Head CT scan dated 07/02/2022. TECHNIQUE: Contiguous axial imaging was performed from the skull base to vertex without intravenous administration of contrast. Coronal and sagittal reformatted images were obtained. This CT examination was performed using dose optimization techniques as appropriate, variously including the following: *Automated exposure control *Adjustment of mA and/or kV according to patient size (this includes techniques or standardized protocols for targeted exams where dose is matched to indication/reason for exam; i.e. extremities or head) *Use of iterative reconstruction technique DLP: 713 mGy-cm FINDINGS: There is mild widening of the cortical sulci and associated ventriculomegaly. The lateral ventricles are symmetrical. The third and fourth ventricles are in their normal midline position. The basilar and prepontine cisterns are unremarkable. Minimal periventricular microvascular changes are seen. Encephalomalacia is again seen in the right parietal occipital region. There is no acute intra or extracerebral abnormality. There is no mass effect or midline shift. Sections through the bony calvarium are unremarkable. The orbits are intact. The paranasal sinuses are clear. The mastoid air cells are clear. Moderate anterior nasal septal deviation, apex the left. CT/CT head/brain wo IV con IMPRESSION: No acute intracranial pathology.
--- NOTE | ~2022-11-28 | CT_ITS ---
EXAMINATION: CT CHEST WITHOUT CONTRAST CLINICAL INFORMATION: Status post fall, rule out rib fractures. COMPARISON: Chest CT scan dated 04/11/2021. TECHNIQUE: Multidetector volumetric CT imaging of the chest was done. Axial MIP volume rendering provided. Sagittal and coronal reformatted images were obtained. This CT examination was performed using dose optimization techniques as appropriate, variously including the following: *Automated exposure control *Adjustment of mA and/or kV according to patient size (this includes techniques or standardized protocols for targeted exams where dose is matched to indication/reason for exam; i.e. extremities or head) *Use of iterative reconstruction technique DLP: 244 mGy-cm FINDINGS: LUNGS/PLEURA/AIRWAYS: Mild to moderate upper lobe predominant centrilobular and paraseptal emphysema is seen. Mild right apical pleural thickening and scarring. No significant/suspicious pulmonary nodules. No MEDIASTINUM: Mild shift to the right. The visualized thyroid gland is unremarkable. Mild sclerosis in the aortic arch without significant dilatation. Mild to moderate coronary artery calcifications. Several surgical clips are noted. No mediastinal or hilar lymphadenopathy. UPPER ABDOMEN: Unremarkable. MUSCULOSKELETAL: No acute fracture. Chronic deformity in the posterior right sixth rib with adjacent postsurgical changes. No acute rib fracture. Minimal thoracic spine degenerative changes. No acute abnormality. SOFT TISSUES: Unremarkable. CT/CT chest wo IV con IMPRESSION: 1. No evidence for acute traumatic injury. 2. Mild to moderate centrilobular emphysema and other chronic changes without acute cardiopulmonary process.
--- NOTE | ~2022-11-28 | CT_ITS ---
EXAMINATION: CT CERVICAL SPINE WITHOUT CONTRAST CLINICAL INFORMATION: Status post fall with neck pain. COMPARISON: None available. TECHNIQUE: Multiple axial images of the cervical spine without administration of intravenous contrast. Coronal and sagittal reformatted images were obtained. This CT examination was performed using dose optimization techniques as appropriate, variously including the following: *Automated exposure control *Adjustment of mA and/or kV according to patient size (this includes techniques or standardized protocols for targeted exams where dose is matched to indication/reason for exam; i.e. extremities or head) *Use of iterative reconstruction technique DLP: 465 mGy-cm FINDINGS: There is normal cervical lordosis. Mild degenerative disc disease is seen at C5-6 and C6-7 with disc space narrowing and marginal osteophyte formation with bilateral neural foraminal narrowing. The vertebral bodies and odontoid processes are intact. Mild to moderate odontoid articular degenerative changes are seen. CT/CT cervical spine wo IV con IMPRESSION: 1. No acute cervical spine abnormality. 2. C5-6 and C6-7 mild degenerative disc disease.
--- NOTE | ~2022-11-28 | CT_ITS ---
EXAMINATION: CT abdomen pelvis wo IV con CLINICAL INFORMATION: Reason for Exam back pain. fall. fractuers? hip fractures? COMPARISON: Prior CT 06/02/2022 TECHNIQUE: Multidetector volumetric imaging was performed from the superior aspect of the liver through the pubic symphysis , noncontrasted study Sagittal and coronal reformatted images were obtained on the technologist's workstation. This CT examination was performed using dose optimization techniques as appropriate, variously including the following: *Automated exposure control *Adjustment of mA and/or kV according to patient size (this includes techniques or standardized protocols for targeted exams where dose is matched to indication/reason for exam; i.e. extremities or head) *Use of iterative reconstruction technique DLP: 653 mGy-cm FINDINGS: LOWER THORAX: Included lung bases are clear. HEPATOBILIARY: Diffusely hypodense liver suggesting hepatic steatosis. No focal hepatic lesions. No biliary ductal dilatation. GALLBLADDER: Gallbladder is distended. SPLEEN: Spleen is borderline enlarged 12.5 cm. PANCREAS: No focal mass or ductal dilatation. STOMACH AND GASTROINTESTINAL TRACT: Stomach is grossly unremarkable. There is no bowel distention or thickening. No CT evidence of appendicitis. ADRENALS: No adrenal nodules. KIDNEYS/URETERS: No hydronephrosis, stones or solid mass lesions. URINARY BLADDER: Partially decompressed. PELVIC VISCERA: Unremarkable PERITONEUM: No free air or fluid. LYMPH NODES: No lymphadenopathy. VASCULAR:There are aortic calcifications, no aneurysm. BONES, ABDOMINAL WALL AND SOFT TISSUES: Cortical irregularity in the right iliac bone and right inferior pubic ramus old healed fractures. No radiographic evidence of acute fracture. Old compression anterior wedging fracture T12 unchanged from prior CTs. CT/CT abdomen pelvis wo IV con IMPRESSION: * No CT evidence of acute intra-abdominal process to explain patient's pain symptoms. * Diffusely hypodense liver suggesting hepatic steatosis. * Spleen is borderline enlarged 12.5 cm. * Old healed fractures of the right iliac bone and right inferior pubic ramus. * Old compression fracture T12.
[2022-11-28 11:17] VITALS: BP 122/68; BP 160/88; PULSE 75; PULSE 85; RESP 18; TEMP 36.6; O2SAT 93; O2SAT 98; BMI 30.7
--- NOTE | 2022-11-28 11:42 | ED.GENADULT ---
HPI - General Adult General Chief complaint: Fall Stated complaint: Fall, lac on back of head, ALMARAZ, weakness per EMS Time Seen by Provider: 11/28/22 11:28 Source: patient Mode of arrival: ambulatory Limitations: no limitations History of Present Illness HPI narrative: 62 yold male with pmh of DM and HTN presents to the ED for a fall. patietn complains of posterior headache and back pain. patient states he was infront of his building walking backwards with his walker on the grass, and the walker got caught in the grass which caused walker to lean backwards causing patient to also lean backwards, slip and than fall unto this head/back. Patient denies any headache, dizziness, chest pain, shortness of breath, abdominal pain before falling. Patient admits to loss of consciousness after falling hitting head. Bystanders called the ambulance Related Data Home Medications Medication Instructions Recorded Confirmed acetaminophen 325 mg tablet 2 tab PO TID PRN Pain 01/01/22 06/27/22 aluminum-mag hydroxide-simethicone 30 ml PO TIDWM 01/01/22 06/27/22 200 mg-200 mg-20 mg/5 mL oral susp (Sury-Mox Antacid-Antigas) atorvastatin 40 mg tablet 40 mg PO DAILY 01/01/22 06/27/22 cholecalciferol (vitamin D3) 50 50 mcg PO DAILY 01/01/22 06/27/22 mcg (2,000 unit) tablet duloxetine 60 mg capsule,delayed 60 mg PO DAILY 01/01/22 06/27/22 release fenofibrate 54 mg tablet 54 mg PO DAILY 01/01/22 06/27/22 fluticasone propionate 50 1 spray intranasal DAILY 01/01/22 06/27/22 mcg/actuation nasal spray,suspension loratadine 10 mg tablet 10 mg PO DAILY 01/01/22 06/27/22 magnesium oxide 400 mg (241.3 mg 400 mg PO DAILY 01/01/22 06/27/22 magnesium) tablet metformin 500 mg tablet 2 tab PO BID 01/01/22 06/27/22 metoprolol succinate 25 mg 25 mg PO DAILY 01/01/22 06/27/22 tablet,extended release 24 hr pantoprazole 40 mg tablet,delayed 40 mg PO DAILY 01/01/22 06/27/22 release hydroxyzine HCl 25 mg tablet 1 tab PO Q6H PRN Anxiety 06/02/22 06/27/22 Previous Rx's Medication Instructions Recorded docusate sodium 100 mg capsule 200 mg PO BEDTIME 30 days #60 caps 11/08/21 gabapentin 800 mg tablet 800 mg PO TID 30 days #90 tabs 11/08/21 glyburide 5 mg tablet 5 mg PO DAILY 30 days #30 tabs 11/08/21 lisinopril 5 mg tablet 5 mg PO DAILY 30 days #30 tabs 11/08/21 quetiapine 25 mg tablet 25 mg PO DAILY 30 days #30 tabs 11/08/21 quetiapine 300 mg tablet 300 mg PO BEDTIME 30 days #30 tabs 11/08/21 buprenorphine 2 mg-naloxone 0.5 mg 1 film sublingual QID #0 ea 07/04/22 sublingual film (Suboxone) buprenorphine 4 mg-naloxone 1 mg 1 film sublingual QID #0 ea 07/04/22 sublingual film (Suboxone) magnesium hydroxide 400 mg/5 mL 30 ml PO DAILY PRN Constipation #0 07/04/22 oral suspension (Milk of Magnesia) mL nicotine 21 mg/24 hr daily 21 mg transdermal DAILY PRN 07/04/22 transdermal patch smoking cessation #0 ea naproxen 500 mg tablet 500 mg PO BID PRN pain 7 days #14 11/28/22 tabs Allergies Allergy/AdvReac Type Severity Reaction Status Date / Time No Known Allergies Allergy Verified 11/28/22 11:11 Review of Systems Review of Systems: Fall, postieor headache, and back pain Yes all other systems are reviewed and are negative PMFSH Past Medical History Medical History Acute blood loss anemia Cerebral infarction Cocaine use disorder, moderate, dependence Diabetes HTN (hypertension) MDD (major depressive disorder), recurrent episode, moderate Multifactorial gait disorder Opioid use disorder, mild, in sustained remission Social History Social History Household Members: Other Housing: Apartment Housing Other:: soliders on Do you presently have visiting nurse or other home services: Yes Unable to assess alcohol history related to: Unknown Alcohol intake: former Patient Tobacco Use Status: Current everyday Tobacco user Tobacco use type: Cigarette Cigarette Packs Per Day: 2 Cigarettes Per Day: 40.0 Years Smoked: 12 Smoked in Last 30 Days: Yes e-Cigarette/Vaping Use: Never Used Second Hand Smoke Exposure: No Use of substances other than those prescribed or required for medical reasons: Yes Substance Use Type: Crack/Cocaine Last Used Substance: Days (ago) Advance Directives: No Advance Directives Information Provided: No service: Yes ([employer] Current occupational status: disabled Sexual orientation: Decline to Answer Physical Exam ED Vital Signs: Vital Signs - 24 hr 11/28/22 11:17 11/28/22 14:26 11/28/22 16:15 Temperature 97.9 F 97.6 F Pulse Rate 75 70 63 Respiratory Rate 18 14 18 Blood Pressure 122/68 114/60 118/67 Pulse Oximetry 93 93 94 Oxygen Delivery Method Room Air Room Air BMI result Body Mass Index 30.7 Const General: cooperative, healthy appearing, comfortable, no acute distress, well developed, alert, awake and Physically active Orientation/consciousness: oriented to person, oriented to place, oriented to time and patient oriented x3 HENMT Other: positive for posterior scalp abrasions Head: Yes normal to inspection, Yes No palpable skull fracture present, Yes normocephalic, Yes atraumatic and Yes abrasion Head images: 1. Small abrasion. No active bleeding. Face and sinus: Yes normal facial exam, Yes sinuses nontender and Yes face symmetric Mouth: Normal oral and palatal mucosa present, lip normal and tongue normal Eyes General: appearance normal, both eyes and all related structures Neck Neck: Yes normal visual inspection, Yes full ROM, Yes no lymphadenopathy, Yes no meningeal signs, Yes trachea midline, Yes supple, No anterior neck swelling and No tender Chest Chest palpation & inspection: normal inspection of the chest and normal palpation of entire chest wall Resp Effort & Inspection: normal respiratory effort and able to speak in complete sentences Auscultation: clear to auscultation bilaterally Cardio Jugular venous distension: no JVD Heart sounds: S1 normal heart sound present and S2 normal heart sound present GI Inspection: Yes normal to inspection and No abdominal wall ecchymosis Palpation (GI): Soft to palpation, not firm, nontender, no guarding and not rigid General: No CVA tenderness and Yes no CVA tenderness Back/Spine/Pelvis Back: no CVA tenderness, No CVA tenderness and No back tenderness Skin General skin exam: no rashes or lesions noted, elasticity normal and turgor normal Neuro General: oriented to person, oriented to place, oriented to time, patient oriented x3, gait normal, tone normal, moves all extremities, Normal light touch and pain sensation, no meningeal signs, no focal motor deficits, CN's II-XI intact bilaterally and normal sensation to monofilament Extrem General: Yes normal to inspection and Yes full ROM Psych Appearance: grossly normal, well kempt and not disheveled Medical Decision Making Medical Decision Making MDM Narrative: 62-year-old male presents to the ED for fall after slipping on grass while using the walker. Patient tried walking backwards and tripped. Patient history of diabetes hypertension. Patient denies any chest pain, abdominal pain, dizziness, or headache before falling backwards. Mechanical fall. Patient sent for imaging. 4:33pm; images are normal. No need for laceration repair. Patient up-to-date with Tdap. No need for labs patient had mechanical fall which was witnessed by bystanders. Differential Diagnosis Differential Diagnoses: The differential diagnosis associated with the presentation includes (Brain bleed, cervical spine fracture, skull fracture, pneumothorax, hemothorax, rib fracture, spinal fracture,) Admission/Observation Consideration of admission/observation: Escalation of care including admission/observation considered Independent Interpretation I performed an independent interpretation of an: CT Scan Radiology Impression Discussion of test interpretation with radiology: I have reviewed the radiologist's reading. External Record Review External record reviewed: Other (Prior ED visits) Discharge Plan Discharge Clinical Impression: Abrasion, Head trauma Patient Disposition: Home, Self-Care Instructions: Head Injury (ED), Abrasion (ED), Back Pain (ED) Additional Instructions: Return to the ED for any chest pain, shortness of breath, abdominal pain, rectal bleeding, vomiting blood, bloody urine, worsening headache, nausea, vomiting, syncopal episodes, or any other concerning symptoms. Please follow-up with primary care provider Prescriptions: New naproxen 500 mg tablet 500 mg PO BID PRN (Reason: pain) 7 Days Qty: 14 0RF No Action hydroxyzine HCl 25 mg tablet 1 tab PO Q6H PRN (Reason: Anxiety) quetiapine 25 mg Tablet 25 mg PO DAILY 30 Days Qty: 30 0RF quetiapine 300 mg tablet 300 mg PO BEDTIME 30 Days Qty: 30 0RF glyburide 5 mg Tablet 5 mg PO DAILY 30 Days Qty: 30 0RF gabapentin 800 mg tablet 800 mg PO TID 30 Days Qty: 90 0RF docusate sodium 100 mg Capsule 200 mg PO BEDTIME 30 Days Qty: 60 0RF Rx Instructions: hold for loose stool lisinopril 5 mg Tablet 5 mg PO DAILY 30 Days Qty: 30 0RF Protocol: Hold for SBP< HOLD for SBP < : 90 metformin 500 mg tablet 2 tab PO BID acetaminophen 325 mg tablet 2 tab PO TID PRN (Reason: Pain) alum-mag hydroxide-simeth [Sury-Mox Antacid-Antigas] 200-200-20 mg/5 mL Suspension 30 ml PO TIDWM Rx Instructions: administer between meals and at bedtime fluticasone propionate 50 mcg/actuation [place],Suspension 1 spray INTRANASAL DAILY Rx Instructions: administer into each nostril loratadine 10 mg Tablet 10 mg PO DAILY cholecalciferol (vitamin D3) 50 mcg (2,000 unit) Tablet 50 mcg PO DAILY atorvastatin 40 mg tablet 40 mg PO DAILY magnesium oxide 400 mg (241.3 mg magnesium) tablet 400 mg PO DAILY pantoprazole 40 mg tablet,delayed release (DR/EC) 40 mg PO DAILY metoprolol succinate 25 mg tablet extended release 24 hr 25 mg PO DAILY Protocol: Hold for SBP/HR < HOLD for SBP < : 90 HOLD for HR < : 60 duloxetine 60 mg capsule,delayed release(DR/EC) 60 mg PO DAILY fenofibrate 54 mg tablet 54 mg PO DAILY nicotine 21 mg/24 hr Patch 24 Hour 21 mg transdermal DAILY PRN (Reason: smoking cessation) Qty: 0 0RF buprenorphine-naloxone [Suboxone] 2-0.5 mg Film 1 film sublingual QID Qty: 0 0RF Rx Instructions: take with Suboxone 4/1mg (for total of 6/1.5mg QID) buprenorphine-naloxone [Suboxone] 4-1 mg Film 1 film sublingual QID Qty: 0 0RF Rx Instructions: take with Suboxone 2/0.5mg (for total of 6/1.5mg QID) magnesium hydroxide [Milk of Magnesia] 400 mg/5 mL Suspension 30 ml PO DAILY PRN (Reason: Constipation) Qty: 0 0RF Stand Alone Forms: Work/School Release Interventions: ED Discharge Assessment Last Done: 11/28/22 20:16 Discharge Date/Time: 11/28/22 20:16 Print Language: Palestinian
--- NOTE | 2022-11-28 12:23 | PC.NURSE ---
assistant manager bilingual called and update on pt, and that we are currently waiting for pt to go to CT
[2022-11-28 14:26] VITALS: BP 114/60; PULSE 70; RESP 14; TEMP 36.4; O2SAT 93
--- NOTE | 2022-11-28 15:12 | PC.NURSE ---
C-Collar removed per provider okay
[2022-11-28 16:15] VITALS: BP 118/67; PULSE 63; RESP 18; O2SAT 94
--- NOTE | 2022-11-28 18:54 | PC.NURSE ---
Pt ready for D/C awaiting ambulance at this time to transport him home
[2022-11-28 19:41] VITALS: BP 110/61; PULSE 70; RESP 16; TEMP 36.3; O2SAT 93
== END 2022-11-28 20:16 | disposition home or self-care (01) ==
PROVIDERS: Emergency Provider Emergency Medicine
DX: S00.01XA Abrasion of scalp, initial encounter (principal); W01.0XXA Fall on same level from slipping, tripping and stumbling without subsequent striking against object, initial encounter; F17.210 Nicotine dependence, cigarettes, uncomplicated; Y93.9 Activity, unspecified; Y92.038 Other place in apartment as the place of occurrence of the external cause; Y99.9 Unspecified external cause status; E11.9 Type 2 diabetes mellitus without complications; I10 Essential (primary) hypertension; Z79.84 Long term (current) use of oral hypoglycemic drugs; Z79.899 Other long term (current) drug therapy
CPT/HCPCS: 70450; 71250; 72125; 74176; 99284

== ENCOUNTER 2022-12-17 07:16 | Inpatient (IN) | payer OTHER, MEDICAID, SELFPAY ==
--- NOTE | ~2022-12-17 | US_ITS ---
EXAMINATION: US ABDOMEN LIMITED CLINICAL INFORMATION: Right upper quadrant pain and nausea. COMPARISON: CT scan of the abdomen and pelvis dated 12/17/2022. TECHNIQUE: Real-time imaging of the right upper quadrant abdominal viscera. FINDINGS: PANCREAS: Visualized portions unremarkable. LIVER: Diffuse increased echotexture without focal abnormality. GALLBLADDER: Echogenic polyp is seen along the deep wall near the neck measuring up to 0.4 cm. Color Doppler showed no abnormal vascular flow. No significant mural thickening. No significant pericholecystic fluid. COMMON BILE DUCT: Normal in caliber measuring 0.4 cm in diameter. RIGHT KIDNEY: 9.4 cm. Unremarkable. FREE FLUID: None. US/US abdomen limited IMPRESSION: 1. Diffuse increased hepatic echotexture is nonspecific, but can be seen with hepatic steatosis. Correlate with liver function tests. 2. 0.4 cm gallbladder polyp without other significant abnormality. This can be monitored for change with a right upper quadrant ultrasound in one year.
--- NOTE | ~2022-12-17 | CT_ITS ---
EXAMINATION: CT ABDOMEN AND PELVIS WITH CONTRAST CLINICAL INFORMATION: Left-sided abdominal pain COMPARISON: Examination of 19 days previous. TECHNIQUE: Multidetector volumetric images were obtained from the superior aspect of the liver through the pubic symphysis following administration 85 mL of Omnipaque 350 intravenous contrast. Sagittal and coronal reformatted images were obtained on the technologist's workstation. Oral contrast: No This CT examination was performed using dose optimization techniques as appropriate, variously including the following: *Automated exposure control *Adjustment of mA and/or kV according to patient size (this includes techniques or standardized protocols for targeted exams where dose is matched to indication/reason for exam; i.e. extremities or head) *Use of iterative reconstruction technique DLP: 586 mGy-cm FINDINGS: LUNG BASES: Small atelectasis posteromedial right lower lobe. LIVER, GALLBLADDER, AND BILIARY TREE: Hepatic fatty infiltration with mild focal fatty sparing in the posterior quadrate lobe and in the region of the gallbladder fossa. Possible cephalad gallbladder polyp series 7 image 88 at 2.5 to 3 mm. PANCREAS: Unremarkable. SPLEEN: Unremarkable. ADRENAL GLANDS: Unremarkable. KIDNEYS AND URETERS: No new hydronephrosis or perinephric infiltrative changes. Tiny hypodensity of left kidney in lateral cortex series 2 image 29, too small to characterize. BLADDER: No ureteral stones. Visualized urinary bladder unremarkable. GASTROINTESTINAL TRACT: No CT evidence for diverticulitis. Appendix unremarkable. No small bowel obstructive process or abnormal omental thickening. ABDOMINAL WALL: Small fatty left inguinal hernia. LYMPH NODES: No new suspiciously enlarged adenopathy. VASCULAR: Atherosclerotic changes. Maximal dimension of the abdominal aorta distally is 2.5 cm AP. PELVIC VISCERA: Unremarkable. OSSEOUS STRUCTURES: Old posttraumatic changes of the right pelvis. Wedge compression changes at T12 appears stable. CT/CT abdomen pelvis w IV con IMPRESSION: No appreciable enteric inflammatory or obstructive process. Findings suggestive of a small gallbladder polyp. Hepatic fatty infiltration. Other incidental findings as noted above. Fleischner guidelines were followed.
--- NOTE | 2022-12-17 07:20 | ECG_ITS ---
Test Reason : ABDOMINAL PAIN Blood Pressure : / mmHG Vent. Rate : 068 BPM Atrial Rate : 068 BPM P-R Int : 222 ms QRS Dur : 092 ms QT Int : 386 ms P-R-T Axes : 028 015 043 degrees QTc Int : 410 ms Sinus rhythm with 1st degree A-V block Otherwise normal ECG When compared with ECG of 02-JUL-2022 21:05, No significant change was found Referred By: Ravin Vega Electronically Signed By:MAL DIXON
--- NOTE | 2022-12-17 07:26 | ED_ITS ---
HPI - General Adult General Chief complaint: Abdominal Pain Stated complaint: NAUSEA/VOMITING ALL NIGHT Time Seen by Provider: 12/17/22 07:19 Source: patient Mode of arrival: EMS Limitations: no limitations History of Present Illness HPI narrative: Patient is a 62 year old male that presents with nausea and vomiting since last night. He explains that he began to feel nauseous last night and has thrown up four times this morning. He describes the vomit as yellow in color and denies any blood in the vomit. Last bowel movement was yesterday. Denies chest pain or shortness of breath, fevers, chills, [place], dizzines, sick contacts. Denies recent alcohol use. Related Data Home Medications Medication Instructions Recorded Confirmed acetaminophen 325 mg tablet 2 tab PO TID PRN Pain 01/01/22 06/27/22 aluminum-mag hydroxide-simethicone 30 ml PO TIDWM 01/01/22 06/27/22 200 mg-200 mg-20 mg/5 mL oral susp (Sury-Mox Antacid-Antigas) atorvastatin 40 mg tablet 40 mg PO DAILY 01/01/22 06/27/22 cholecalciferol (vitamin D3) 50 50 mcg PO DAILY 01/01/22 06/27/22 mcg (2,000 unit) tablet duloxetine 60 mg capsule,delayed 60 mg PO DAILY 01/01/22 06/27/22 release fenofibrate 54 mg tablet 54 mg PO DAILY 01/01/22 06/27/22 fluticasone propionate 50 1 spray intranasal DAILY 01/01/22 06/27/22 mcg/actuation nasal spray,suspension loratadine 10 mg tablet 10 mg PO DAILY 01/01/22 06/27/22 magnesium oxide 400 mg (241.3 mg 400 mg PO DAILY 01/01/22 06/27/22 magnesium) tablet metformin 500 mg tablet 2 tab PO BID 01/01/22 06/27/22 metoprolol succinate 25 mg 25 mg PO DAILY 01/01/22 06/27/22 tablet,extended release 24 hr pantoprazole 40 mg tablet,delayed 40 mg PO DAILY 01/01/22 06/27/22 release hydroxyzine HCl 25 mg tablet 1 tab PO Q6H PRN Anxiety 06/02/22 06/27/22 Previous Rx's Medication Instructions Recorded docusate sodium 100 mg capsule 200 mg PO BEDTIME 30 days #60 caps 11/08/21 gabapentin 800 mg tablet 800 mg PO TID 30 days #90 tabs 11/08/21 glyburide 5 mg tablet 5 mg PO DAILY 30 days #30 tabs 11/08/21 lisinopril 5 mg tablet 5 mg PO DAILY 30 days #30 tabs 11/08/21 quetiapine 25 mg tablet 25 mg PO DAILY 30 days #30 tabs 11/08/21 quetiapine 300 mg tablet 300 mg PO BEDTIME 30 days #30 tabs 11/08/21 buprenorphine 2 mg-naloxone 0.5 mg 1 film sublingual QID #0 ea 07/04/22 sublingual film (Suboxone) buprenorphine 4 mg-naloxone 1 mg 1 film sublingual QID #0 ea 07/04/22 sublingual film (Suboxone) magnesium hydroxide 400 mg/5 mL 30 ml PO DAILY PRN Constipation #0 07/04/22 oral suspension (Milk of Magnesia) mL nicotine 21 mg/24 hr daily 21 mg transdermal DAILY PRN 07/04/22 transdermal patch smoking cessation #0 ea naproxen 500 mg tablet 500 mg PO BID PRN pain 7 days #14 11/28/22 tabs Allergies Allergy/AdvReac Type Severity Reaction Status Date / Time No Known Allergies Allergy Verified 11/28/22 11:11 Review of Systems Review of Systems: Constitutional : No Weight loss, No Fever, No Chills, No Fatigue, No Malaise ENT/Mouth : No sore throat, No Rhinorrhea Eyes: No Eye Pain, No Swelling, No Redness Cardiovascular : No Chest Pain, No SOB, No Dyspnea on Exertion, No Orthopnea, No Edema, No Palpitations Respiratory : No Cough, No Sputum, No Wheezing Gastrointestinal : + Nausea, Vomiting and abdominal pain, No Diarrhea, No Constipation, No Hematochezia, No Melena Genitourinary : No Dysuria, No Urinary Frequency, No Hematuria, Musculoskeletal : No joint pain, No Myalgias, No Joint Swelling Skin : No Skin Lesions, No rash Neuro : No Weakness, No Numbness, No Dizziness, No Headache Psych : No Anxiety/Panic, No Depression All other systems reviewed and are negative Yes all other systems are reviewed and are negative PMFSH Past Medical History Attestation statement: The following information was validated with the patient. Source: old records reviewed and nursing notes reviewed Medical History Acute blood loss anemia Cerebral infarction Cocaine use disorder, moderate, dependence Diabetes HTN (hypertension) MDD (major depressive disorder), recurrent episode, moderate Multifactorial gait disorder Opioid use disorder, mild, in sustained remission Social History Social History Household Members: Other Housing: Apartment Housing Other:: soliders on Do you presently have visiting nurse or other home services: Yes Unable to assess alcohol history related to: Unknown Alcohol intake: former Patient Tobacco Use Status: Current everyday Tobacco user Tobacco use type: Cigarette Cigarette Packs Per Day: 2 Cigarettes Per Day: 40.0 Years Smoked: 12 Smoked in Last 30 Days: Yes e-Cigarette/Vaping Use: Never Used Second Hand Smoke Exposure: No Use of substances other than those prescribed or required for medical reasons: Yes Substance Use Type: Crack/Cocaine and Marijuana Substance Use Frequency: Monthly Last Used Substance: Days (ago) Advance Directives: No Advance Directives Information Provided: No service: Yes ([employer], [employer]) Current occupational status: disabled Sexual orientation: Decline to Answer Physical Exam ED Vital Signs: Vital Signs - 24 hr 12/17/22 07:37 12/17/22 14:35 Temperature 98 F 99.4 F Pulse Rate 62 63 Respiratory Rate 16 18 Blood Pressure 189/83 H 195/83 H Pulse Oximetry 98 97 Oxygen Delivery Method Room Air Room Air BMI result Body Mass Index 25.9 Appearance: Alert.? Oriented X3.? No acute distress.? Head: Normocephalic, atraumatic, no step-offs or deformities Eyes: Pupils equal, round and reactive to light.? ENT: Pharynx normal.? Neck: Normal inspection.? Neck supple.? CVS: Normal heart rate and rhythm.? Pulses normal.? Respiratory: No respiratory distress.? Breath sounds normal.? Abdomen: Mildly tender to palpation throughout. Skin: Skin warm and dry.? Normal skin color.? Normal skin turgor.? Extremities: No lower extremity edema.? No calf ttp. 5/5 strength to bilateral upper and lower extremities Back: No midline tenderness, no C-spine tenderness, full range of motion, no CVA tenderness bilaterally Neuro: Oriented X 3.? No motor deficit.? No sensory deficit. CN 2-12 intact Course Reevaluation(s) Reevaluation #1: CBC appears to be within normal limits. Chemistry with sodium of 134, slightly elevated transaminases however appear to be around patient's baseline likely secondary to substance abuse. Patient was given insulin. Time: 09:23 Reevaluation #2: Patient continued to complain of nausea and vomiting. Therefore Reglan and Benadryl ordered. Time: 09:30 Reevaluation #3: Patient still complaining of nausea and vomiting gave Compazine. Time: 19:17 Additional Reevaluation(s): 1500 still having nausea and vomiting, concerned for diabetic gastroparesis. CT abdomen and pelvis with no appreciable enteric inflammatory obstructive processes. Finding suggestive of small gallbladder polyp. Ordered a dedicated right upper quadrant limited study of gallbladder. Diffuse increased hepatic echotexture is nonspecific but can be seen with hepatic steatosis. 0.4 cm gallbladder polyp recommend follow-up in a year. At this time patient is still not feeling well he has been here for hours, not tolerating p.o. still complaini ng of nausea plan at this time admission for diabetic gastroparesis. Medications Administered Discontinued Medications Generic Name Dose Route Start Last Admin Trade Name Freq PRN Reason Stop Dose Admin Diphenhydramine HCl 25 mg 12/17/22 09:32 12/17/22 10:04 Diphenhydramine Hcl 50 Mg/Ml Vial IVPUSH 12/17/22 09:33 25 mg ONCE ONE Administration Sodium Chloride 1,000 mls @ 999 mls/hr 12/17/22 07:30 12/17/22 09:46 Ns IV 12/17/22 08:30 Infused .Q1H1M SHARA Infusion Sodium Chloride 1,000 mls @ 999 mls/hr 12/17/22 09:30 12/17/22 13:00 Ns IV 12/17/22 10:30 Infused .Q1H1M SHARA Infusion Sodium Chloride 1,000 mls @ 999 mls/hr 12/17/22 13:30 12/17/22 13:52 Ns IV 12/17/22 14:30 999 mls/hr .Q1H1M SHARA Administration Insulin Human Regular 8 unit 12/17/22 09:23 12/17/22 10:07 Insulin Regular, Human 100 Unit/Ml 3 Ml Vial 0.1 unit/kg (8 unit) 12/17/22 09:24 8 unit IVPUSH Administration ONCE ONE Iohexol 85 ml 12/17/22 10:54 12/17/22 10:56 Iohexol 350 Mg/Ml 100 Ml Infus..Btl IV 12/17/22 10:55 85 ml ONCE ONE Administration Metoclopramide HCl 10 mg 12/17/22 09:32 12/17/22 09:46 Metoclopramide Hcl 10 Mg/2 Ml Vial IVPUSH 12/17/22 09:33 10 mg ONCE ONE Administration Ondansetron HCl 4 mg 12/17/22 07:19 12/17/22 08:38 Ondansetron Hcl 4 Mg/2 Ml Vial IVPUSH 12/17/22 07:20 4 mg ONCE ONE Administration Prochlorperazine Edisylate 5 mg 12/17/22 13:17 12/17/22 13:53 Prochlorperazine Edisylate 10 Mg/2 Ml Vial IVPUSH 12/17/22 13:18 5 mg ONCE ONE Administration Medical Decision Making Medical Decision Making [facility] Narrative: 08 62 year old male presenting for nausea and vomiting that started last night. Exam significant for mild diffuse abdominal tenderness to palpation. This is likely a viral illness vs gastroparesis vs cyclical vomiting . Will rule out obstruction, pancreatitis, diverticulitis. History and physical makes arterial occlusion unlikely. Unlikely appendicitis due to diffuse abdominal tenderness. No signs of acute abdomen, cholecystits. Pain unlikely cardiac in nature due to lack of chest pain and shortness of breath. Unlikely DKA, HHS. Other differentials include alcohol abuse. Will rule out electrolyte abnormalities due to nausea and vomiting Plan: labs, urine, EKG, imaging. Differential Diagnosis Differential Diagnoses: The differential diagnosis associated with the presentation includes This is likely a viral illness vs gastroparesis vs cyclical vomiting . Will rule out obstruction, pancreatitis, diverticulitis. History and physical makes arterial occlusion unlikely. Unlikely appendicitis due to diffuse abdominal tenderness. No signs of acute abdomen, cholecystits. Pain unlikely cardiac in nature due to lack of chest pain and shortness of breath. Unlikely DKA, HHS. Other differentials include alcohol abuse. Will rule out electrolyte abnormalities due to nausea and vomiting Admission/Observation Consideration of admission/observation: Escalation of care including admission/observation considered Not indicated Lab Data [facility] Lab Attestation statement: I reviewed the patient's lab results. 12/17/22 08:23 12/17/22 08:23 Labs: Lab Results 12/17/22 12/17/22 12/17/22 Range/Units 08:09 08:09 08:09 WBC (4.8-10.8) X10*3/uL RBC (4.60-5.80) X10*6/uL Hgb (14.0-18.0) g/dl Hct (42.0-52.0) % MCV (80.0-98.0) fL MCH (27.0-33.0) pg MCHC (31.0-36.0) g/dl RDW (11.0-16.0) % Plt Count (160-400) X10*3/uL MPV (9.4-12.4) fL Immature Gran % (Auto) (0.0-0.4) % Neut % (Auto) (45-73) % Lymph % (Auto) (20-40) % [place] % (Auto) (2-11) % Eos % (Auto) (0-4) % Baso % (Auto) (0-2) % Lymph # (Auto) (1.2-4.9) X10*3/uL [place] # (Auto) (0.1-1.2) X10*3/uL Eos # (Auto) (0.0-0.4) X10*3/uL Baso # (Auto) (0.0-0.2) X10*3/uL Abs Immat Gran (auto) (0.00-0.03) X10*3/uL Absolute Neuts (auto) (2.0-8.3) x10*3/uL Absolute Nucleated RBC (0.0-0.012) X10*3/uL Nucleated RBC % (auto) (0.0-0.2) /100WBC Smear Tech's Comments Sodium (135-145) mmol/L Potassium (3.3-5.1) mmol/L Chloride (96-108) mmol/L Carbon Dioxide (22-29) mmol/L Anion Gap (12-20) BUN (9-16) mg/dL Creatinine (0.5-1.4) mg/dL Estim Creat Clear Calc Estimated GFR Random Glucose (60-115) mg/dL Calcium (8.4-10.2) mg/dL Magnesium (1.6-2.6) mg/dL Total Bilirubin (0.0-1.0) mg/dL AST (5-37) U/L ALT (0-40) U/L Alkaline Phosphatase (39-117) U/L Troponin I High Sens (<3.5-35.0) ng/L Total Protein (6.5-8.0) g/dL Albumin (3.5-5.0) g/dL Lipase (8-78) U/L Urine Color Yellow Urine Appearance Clear Urine pH 5.5 (5.0-9.0) Ur Specific [place] >= 1.030 H (1.005-1.025) Urine Protein Trace (Neg-Trace) mg/dL Urine Glucose (UA) >=1000 H (Negative) mg/dL Urine Ketones Trace (Negative) mg/dL Urine Blood Negative (Negative) Urine Nitrite Negative (Negative) Ur Leukocyte Esterase Negative (Negative) Urine RBC 0-2 (0-2) /HPF Urine WBC 0-5 (0-5) /HPF Ur Squamous Epith Cells 0-2 (0-2) /HPF Urine Bacteria None Seen (None Seen) Hyaline Casts 0-2 (0-2) /LPF Salicylates (15-30) mg/dL Urine Opiates Screen Not Detected (Not Detect) Urine Fentanyl Screen Not Detected (Not Detect) Acetaminophen (<30) mcg/mL Ur Barbiturates Screen Not Detected (Not Detect) Ur Phencyclidine Scrn Not Detected (Not Detect) Ur Amphetamines Screen Not Detected (Not Detect) U Benzodiazepines Scrn Not Detected (Not Detect) Urine Cocaine Screen POSITIVE H (Not Detect) U Marijuana (THC) Screen Not Detected (Not Detect) Ethyl Alcohol mg/dL COVID-19 (TANA) Negative (Negative) COVID-19 Clin Com See Note 12/17/22 12/17/22 12/17/22 Range/Units 08: 08:17 12: WBC 9.4 (4.8-10.8) X10*3/uL RBC 5.37 (4.60-5.80) X10*6/uL Hgb 14.7 (14.0-18.0) g/dl Hct 43.4 (42.0-52.0) % MCV 80.8 (80.0-98.0) fL MCH 27.4 (27.0-33.0) pg MCHC 33.9 (31.0-36.0) g/dl RDW 13.7 (11.0-16.0) % Plt Count 167 D (160-400) X10*3/uL MPV 10.5 (9.4-12.4) fL Immature Gran % (Auto) 0.6 H (0.0-0.4) % Neut % (Auto) 77.8 H (45-73) % Lymph % (Auto) 13.5 L (20-40) % [place] % (Auto) 7.0 (2-11) % Eos % (Auto) 0.7 (0-4) % Baso % (Auto) 0.4 (0-2) % Lymph # (Auto) 1.3 (1.2-4.9) X10*3/uL [place] # (Auto) 0.7 (0.1-1.2) X10*3/uL Eos # (Auto) 0.1 (0.0-0.4) X10*3/uL Baso # (Auto) 0.0 (0.0-0.2) X10*3/uL Abs Immat Gran (auto) 0.06 H (0.00-0.03) X10*3/uL Absolute Neuts (auto) 7.3 (2.0-8.3) x10*3/uL Absolute Nucleated RBC 0.000 (0.0-0.012) X10*3/uL Nucleated RBC % (auto) 0.0 (0.0-0.2) /100WBC Smear Tech's Comments VERIFIED Sodium 134 L (135-145) mmol/L Potassium 4.5 (3.3-5.1) mmol/L Chloride 100 (96-108) mmol/L Carbon Dioxide 22 (22-29) mmol/L Anion Gap 17 (12-20) BUN 10 (9-16) mg/dL Creatinine 0.85 (0.5-1.4) mg/dL Estim Creat Clear Calc 92.4 Estimated GFR > 60 Random Glucose 331 H (60-115) mg/dL Calcium 10.3 H (8.4-10.2) mg/dL Magnesium 1.5 L (1.6-2.6) mg/dL Total Bilirubin 0.5 (0.0-1.0) mg/dL AST 45 H (5-37) U/L ALT 41 H (0-40) U/L Alkaline Phosphatase 125 H (39-117) U/L Troponin I High Sens (<3.5-35.0) ng/L Total Protein 8.5 H (6.5-8.0) g/dL Albumin 4.7 (3.5-5.0) g/dL Lipase 37 (8-78) U/L Urine Color Urine Appearance Urine pH (5.0-9.0) Ur Specific [place] (1.005-1.025) Urine Protein (Neg-Trace) mg/dL Urine Glucose (UA) (Negative) mg/dL Urine Ketones (Negative) mg/dL Urine Blood (Negative) Urine Nitrite (Negative) Ur Leukocyte Esterase (Negative) Urine RBC (0-2) /HPF Urine WBC (0-5) /HPF Ur Squamous Epith Cells (0-2) /HPF Urine Bacteria (None Seen) Hyaline Casts (0-2) /LPF Salicylates < 5.0 L (15-30) mg/dL Urine Opiates Screen (Not Detect) Urine Fentanyl Screen (Not Detect) Acetaminophen < 17 (<30) mcg/mL Ur Barbiturates Screen (Not Detect) Ur Phencyclidine Scrn (Not Detect) Ur Amphetamines Screen (Not Detect) U Benzodiazepines Scrn (Not Detect) Urine Cocaine Screen (Not Detect) U Marijuana (THC) Screen (Not Detect) Ethyl Alcohol mg/dL COVID-19 (TANA) (Negative) COVID-19 Clin Com 12/17/22 12/17/22 Range/Units 08:23 08:23 WBC (4.8-10.8) X10*3/uL RBC (4.60-5.80) X10*6/uL Hgb (14.0-18.0) g/dl Hct (42.0-52.0) % MCV (80.0-98.0) fL MCH (27.0-33.0) pg MCHC (31.0-36.0) g/dl RDW (11.0-16.0) % Plt Count (160-400) X10*3/uL MPV (9.4-12.4) fL Immature Gran % (Auto) (0.0-0.4) % Neut % (Auto) (45-73) % Lymph % (Auto) (20-40) % [place] % (Auto) (2-11) % Eos % (Auto) (0-4) % Baso % (Auto) (0-2) % Lymph # (Auto) (1.2-4.9) X10*3/uL [place] # (Auto) (0.1-1.2) X10*3/uL Eos # (Auto) (0.0-0.4) X10*3/uL Baso # (Auto) (0.0-0.2) X10*3/uL Abs Immat Gran (auto) (0.00-0.03) X10*3/uL Absolute Neuts (auto) (2.0-8.3) x10*3/uL Absolute Nucleated RBC (0.0-0.012) X10*3/uL Nucleated RBC % (auto) (0.0-0.2) /100WBC Smear Tech's Comments Sodium (135-145) mmol/L Potassium (3.3-5.1) mmol/L Chloride (96-108) mmol/L Carbon Dioxide (22-29) mmol/L Anion Gap (12-20) BUN (9-16) mg/dL Creatinine (0.5-1.4) mg/dL Estim Creat Clear Calc Estimated GFR Random Glucose (60-115) mg/dL Calcium (8.4-10.2) mg/dL Magnesium (1.6-2.6) mg/dL Total Bilirubin (0.0-1.0) mg/dL AST (5-37) U/L ALT (0-40) U/L Alkaline Phosphatase (39-117) U/L Troponin I High Sens 17.1 (<3.5-35.0) ng/L Total Protein (6.5-8.0) g/dL Albumin (3.5-5.0) g/dL Lipase (8-78) U/L Urine Color Urine Appearance Urine pH (5.0-9.0) Ur Specific [place] (1.005-1.025) Urine Protein (Neg-Trace) mg/dL Urine Glucose (UA) (Negative) mg/dL Urine Ketones (Negative) mg/dL Urine Blood (Negative) Urine Nitrite (Negative) Ur Leukocyte Esterase (Negative) Urine RBC (0-2) /HPF Urine WBC (0-5) /HPF Ur Squamous Epith Cells (0-2) /HPF Urine Bacteria (None Seen) Hyaline Casts (0-2) /LPF Salicylates (15-30) mg/dL Urine Opiates Screen (Not Detect) Urine Fentanyl Screen (Not Detect) Acetaminophen (<30) mcg/mL Ur Barbiturates Screen (Not Detect) Ur Phencyclidine Scrn (Not Detect) Ur Amphetamines Screen (Not Detect) U Benzodiazepines Scrn (Not Detect) Urine Cocaine Screen (Not Detect) U Marijuana (THC) Screen (Not Detect) Ethyl Alcohol < 10 mg/dL COVID-19 (TANA) (Negative) COVID-19 Clin Com Independent Interpretation I performed an independent interpretation of an: CT Scan Radiology Impression Discussion of test interpretation with radiology: I have reviewed the radiologist's reading. Core Measures AMI core measures followed: Yes Measure exclusions: not indicated Critical Care Time Critical Care Time Critical Care Time: No Discharge Plan Discharge Clinical Impression: Vomiting, Diabetic gastroparesis Patient Disposition: Still a Patient Instructions: Acute Nausea and Vomiting (ED), Acute Abdominal Pain (ED) Additional Instructions: Take your medications as prescribed. If you were prescribed antibiotics today, it is important that you take your medication to their entirety, do not skip any doses, do not finish them early. Follow-up with your primary care provider this week. Return to the emergency department with new or worsening symptoms. Such as fevers, chills, chest pain, shortness of breath, nausea, vomiting, dizziness, headache, vision changes, lethargy In case of emergency call 911 Prescriptions: No Action hydroxyzine HCl 25 mg tablet 1 tab PO Q6H PRN (Reason: Anxiety) quetiapine 25 mg Tablet 25 mg PO DAILY 30 Days Qty: 30 0RF quetiapine 300 mg tablet 300 mg PO BEDTIME 30 Days Qty: 30 0RF glyburide 5 mg Tablet 5 mg PO DAILY 30 Days Qty: 30 0RF gabapentin 800 mg tablet 800 mg PO TID 30 Days Qty: 90 0RF docusate sodium 100 mg Capsule 200 mg PO BEDTIME 30 Days Qty: 60 0RF Rx Instructions: hold for loose stool lisinopril 5 mg Tablet 5 mg PO DAILY 30 Days Qty: 30 0RF Protocol: Hold for SBP< HOLD for SBP < : 90 metformin 500 mg tablet 2 tab PO BID acetaminophen 325 mg tablet 2 tab PO TID PRN (Reason: Pain) alum-mag hydroxide-simeth [Sury-Mox Antacid-Antigas] 200-200-20 mg/5 mL Suspension 30 ml PO TIDWM Rx Instructions: administer between meals and at bedtime fluticasone propionate 50 mcg/actuation [place],Suspension 1 spray INTRANASAL DAILY Rx Instructions: administer into each nostril loratadine 10 mg Tablet 10 mg PO DAILY cholecalciferol (vitamin D3) 50 mcg (2,000 unit) Tablet 50 mcg PO DAILY atorvastatin 40 mg tablet 40 mg PO DAILY magnesium oxide 400 mg (241.3 mg magnesium) tablet 400 mg PO DAILY pantoprazole 40 mg tablet,delayed release (DR/EC) 40 mg PO DAILY metoprolol succinate 25 mg tablet extended release 24 hr 25 mg PO DAILY Protocol: Hold for SBP/HR < HOLD for SBP < : 90 HOLD for HR < : 60 duloxetine 60 mg capsule,delayed release(DR/EC) 60 mg PO DAILY fenofibrate 54 mg tablet 54 mg PO DAILY nicotine 21 mg/24 hr Patch 24 Hour 21 mg transdermal DAILY PRN (Reason: smoking cessation) Qty: 0 0RF buprenorphine-naloxone [Suboxone] 2-0.5 mg Film 1 film sublingual QID Qty: 0 0RF Rx Instructions: take with Suboxone 4/1mg (for total of 6/1.5mg QID) buprenorphine-naloxone [Suboxone] 4-1 mg Film 1 film sublingual QID Qty: 0 0RF Rx Instructions: take with Suboxone 2/0.5mg (for total of 6/1.5mg QID) magnesium hydroxide [Milk of Magnesia] 400 mg/5 mL Suspension 30 ml PO DAILY PRN (Reason: Constipation) Qty: 0 0RF naproxen 500 mg tablet 500 mg PO BID PRN (Reason: pain) 7 Days Qty: 14 0RF
[2022-12-17 07:37] VITALS: BP 152/90; BP 189/83; PULSE 62; PULSE 93; RESP 16; TEMP 36.6; O2SAT 98; BMI 25.9
[2022-12-17 08:34] LABS: Basophils Percent Auto 0.4 % (0-2); Eosinophils Absolute Auto 0.1 X10*3/uL (0.0-0.4); Eosinophils Percent Auto 0.7 % (0-4); Hematocrit 43.4 % (42.0-52.0); Hemoglobin 14.7 g/dl (14.0-18.0); Imm Gran Abs Auto 0.06 X10*3/uL (0.00-0.03); Imm Gran Pct Auto 0.6 % (0.0-0.4); Lymphocytes Absolute Auto 1.3 X10*3/uL (1.2-4.9); Lymphocytes Percent Auto 13.5 % (20-40); MANUAL DIFF FLAG SCAN; Mean Corpuscular HGB Conc 33.9 g/dl (31.0-36.0); Mean Corpuscular Hemoglobin 27.4 pg (27.0-33.0); Mean Corpuscular Volume 80.8 fL (80.0-98.0); Mean Platelet Volume 10.5 fL (9.4-12.4); Monocytes Absolute Auto 0.7 X10*3/uL (0.1-1.2); Neutrophils Absolute Auto 7.3 x10*3/uL (2.0-8.3); Neutrophils Percent Auto 77.8 % (45-73); PLT CLUMP 1; Red Blood Count 5.37 X10*6/uL (4.60-5.80); Red Cell Distribution Width 13.7 % (11.0-16.0); SCAN SMEAR FLAG 1
[2022-12-17 08:35] LABS: White Blood Count 9.4 X10*3/uL (4.8-10.8)
[2022-12-17 08:38] LABS: Appearance Urine Clear; Color Urine Yellow; Glucose Urine UA >=1000 mg/dL (Negative); Leukocyte Esterase Urine Negative (Negative); Nitrite Urine Negative (Negative); PH 5.5 (5.0-9.0); Specific Gravity - Urine >= 1.030 (1.005-1.025); UMIC TRIGGER UACC YES; Urine Blood Negative (Negative); Urine Ketones Trace mg/dL (Negative); Urine Protein Trace mg/dL (Neg-Trace)
[2022-12-17] MEDS: 0.9 % Sodium Chloride 1,000 ML 999 ML IV ×3 (08:38→13:52)
[2022-12-17] MEDS: ondansetron HCL 4 MG/2 ML VIAL IVPUSH (08:38)
[2022-12-17 08:43] LABS: Bacteria Urine None Seen (None Seen); Hyaline Casts Urine 0-2 /LPF (0-2); RBC Urine 0-2 /HPF (0-2); Squamous Epithelial Cell Urine 0-2 /HPF (0-2); WBC Urine 0-5 /HPF (0-5)
[2022-12-17 08:45] LABS: Amphetamine Screen Urine Not Detected (Not Detect); Barbiturates, Urine Not Detected (Not Detect); Benzodiazepines Screen Urine Not Detected (Not Detect); Cannabinoid Screen Urine Not Detected (Not Detect); Cocaine Screen Urine POSITIVE (Not Detect); Fentanyl, urine Not Detected (Not Detect); Opiate Screen Urine Not Detected (Not Detect); Phencyclidine Screen Urine Not Detected (Not Detect)
[2022-12-17 08:49] LABS: Ethanol < 10 mg/dL
[2022-12-17 08:50] LABS: Platelet Count 167 X10*3/uL (160-400)
[2022-12-17 08:51] LABS: SLIDE REVIEW VERIFIED
[2022-12-17 08:54] LABS: Troponin-I High Sensitivity 17.1 ng/L (<3.5-35.0)
[2022-12-17 08:57] LABS: Anion Gap 17 (12-20)
[2022-12-17 08:59] LABS: Acetaminophen LAB < 17 mcg/mL (<30); Salicylate < 5.0 mg/dL (15-30)
[2022-12-17 09:06] LABS: Alanine Aminotransferase 41 U/L (0-40); Albumin Level 4.7 g/dL (3.5-5.0); Alkaline Phosphatase 125 U/L (39-117); Aspartate Amino Transferase 45 U/L (5-37); Bilirubin Total 0.5 mg/dL (0.0-1.0); Blood Urea Nitrogen 10 mg/dL (9-16); Calcium 10.3 mg/dL (8.4-10.2); Carbon Dioxide 22 mmol/L (22-29); Chloride 100 mmol/L (96-108); Creatinine Clr Calc Pharmacy 92.4; Estimated Glomerular Filt Rate > 60; Glucose Random 331 mg/dL (60-115); Lipase 37 U/L (8-78); Magnesium 1.5 mg/dL (1.6-2.6); Potassium 4.5 mmol/L (3.3-5.1); Sodium 134 mmol/L (135-145); Total Protein 8.5 g/dL (6.5-8.0)
[2022-12-17] MEDS: Metoclopramide HCl 10 MG/2 ML VIAL IVPUSH (09:46)
[2022-12-17] MEDS: diphenhydrAMINE HCL 50 MG/ML VIAL 25 MG IVPUSH (10:04)
[2022-12-17] MEDS: Insulin Regular, Human 100 UNIT/ML 3 ML VIAL 8 UNIT IVPUSH (10:07)
[2022-12-17 10:42] LABS: COVID-19 Test Negative (Negative); IDNOW Serial# BCCEAD1C
[2022-12-17] MEDS: iohexoL 350 MG/ML 100 ML INFUS..BTL 85 ML IV (10:56)
[2022-12-17] MEDS: Prochlorperazine Edisylate 10 MG/2 ML VIAL 5 MG IVPUSH ×2 (13:53→18:27)
[2022-12-17 14:35] VITALS: BP 195/83; PULSE 63; RESP 18; TEMP 37.4; O2SAT 97
--- NOTE | 2022-12-17 16:00 | PC.NURSE ---
Patient asking for more nausea medication, provider made aware. Plan for Hospitalist input on next nausea medication to be used.
--- NOTE | 2022-12-17 16:13 | P.HPHOSP_ITS ---
History of Present Illness Date of Service: 12/17/22 Attending physician on admission: Duane Verduzco Chief Complaint: Intractable nausea vomiting Pt is a 61-year-old male with a PMH significant for?HTN, [id number] diabetes type 2, HLD, neuropathy, cocaine use disorder sober for 2-3 months, alcohol use disorder sober for 8 years, and lung cancer s/p right lower lobe resection who presents to the ED with?2-3 days of intractable nausea, vomiting, abdominal pain. Patient states that he has been experiencing nausea with vomiting for the past few days, noting that last night he was dry heaving and this morning had yellow colored vomitus. Has not been able to eat or drink much during this time. Patient locates his pain mostly in the epigastric region, states currently his pain is a 7/10. Nausea is currently not controlled despite receiving ondansetron, Reglan, and Clopramide. Four days ago patient states he experienced subjective fever and chills, staying in bed for most of the day because he did not feel well. Patient denies hematemesis, diarrhea. No chest pain/pressure, palpitations. Denies shortness of breath. Of note, patient was admitted for similar complaints in April of this year. Patient denies history of marijuana use, though notes he uses CBD oil. Patient also is non ambulatory at baseline d/t chronic injuries and lower leg pain, uses a wheelchair. In the ED patient was afebrile and hypertensive up to 195/83. Labs were significant for sodium of 134, random glucose of 331, magnesium 1.5, AST 45, ALT 41, alk-phos 125, troponin WNL at 17.1. CT?of abdomen and pelvis found no appreciable enteric inflammation or obstructive process. Did find small gallbladder polyp and hepatic fatty infiltration. Abdominal ultrasound bony fused increased hepatic echotexture possibly suggestive of hepatic steatosis, and a 0.4 cm gallbladder polyp without other significant abnormality, recommends right upper quadrant ultrasound follow-up in 1 year. EKG demonstrated sinus rhythm with first-degree AV block with no evidence of ST elevations or depressions. Pt was treated with ondansetron, IVF, metoclopramide, diphenhydramine, insulin, and prochlorperazine. Pt will be admitted to the hospital treatment further evaluation of intractable nausea, vomiting, abdominal pain in the setting of likely diabetic gastroparesis. Review of Systems Review of Systems: Nausea, vomiting, abdominal pain times 2-3 days Denies hematemesis Subjective fever, chills 4 days ago Denies chest pain/pressure, palpitations Denies diarrhea No shortness of breath Yes all other systems are reviewed and are negative ON LICENSE OF [facility] Medical History Acute blood loss anemia Cerebral infarction Cervical radiculopathy Cocaine use disorder, moderate, dependence Diabetes HTN (hypertension) MDD (major depressive disorder), recurrent episode, moderate Multifactorial gait disorder Opioid use disorder, mild, in sustained remission Social History Household Members: Other Housing: Apartment Housing Other:: soliders on Do you presently have visiting nurse or other home services: Yes Unable to assess alcohol history related to: Unknown Alcohol intake: former Patient Tobacco Use Status: Current everyday Tobacco user Tobacco use type: Cigarette Cigarette Packs Per Day: 2 Cigarettes Per Day: 40.0 Years Smoked: 12 Smoked in Last 30 Days: Yes e-Cigarette/Vaping Use: Never Used Second Hand Smoke Exposure: No Use of substances other than those prescribed or required for medical reasons: Yes Substance Use Type: Crack/Cocaine and Marijuana Substance Use Frequency: Monthly Last Used Substance: Days (ago) Advance Directives: No Advance Directives Information Provided: No service: Yes ([employer]) Current occupational status: disabled Sexual orientation: Decline to Answer Meds Allergies Allergy/AdvReac Type Severity Reaction Status Date / Time No Known Allergies Allergy Verified 11/28/22 11:11 Home Medications Medication Instructions Recorded Confirmed Last Taken Type atorvastatin 40 mg tablet 40 mg PO DAILY 01/01/22 12/17/22 Unknown History fenofibrate 54 mg tablet 54 mg PO DAILY 01/01/22 12/17/22 Unknown History metoprolol succinate 25 mg 25 mg PO DAILY 01/01/22 12/17/22 Unknown History tablet,extended release 24 hr pantoprazole 40 mg tablet,delayed 40 mg PO DAILY 01/01/22 12/17/22 Unknown History release buprenorphine 8 mg-naloxone 2 mg 1 film buccal DAILY 12/17/22 12/17/22 Unknown History sublingual film metformin 1,000 mg tablet 1,000 mg PO BID 12/17/22 12/17/22 Unknown History quetiapine 100 mg tablet 100 mg PO BEDTIME 12/17/22 12/17/22 Unknown History quetiapine 50 mg tablet 50 mg PO DAILY 12/17/22 12/17/22 Unknown History sertraline 100 mg tablet 100 mg PO DAILY 12/17/22 12/17/22 Unknown History Physical Exam Vital Signs and Narrative: Vital Signs: Last Vital Signs Temp 99.4 F 12/17/22 14:35 Pulse 63 12/17/22 14:35 Resp 18 12/17/22 14:35 BP 195/83 H 12/17/22 14:35 Pulse Ox 97 12/17/22 14:35 O2 Del Method Room Air 12/17/22 14:35 BMI result Body Mass Index 25.9 Constitutional: Alert, looks uncomfortable, in no acute distress. Mental Status: Oriented to person, place and time. Eyes: Pupils are equal, round, and reactive to light. Ear, Nose, and Throat: Oropharynx clear, mucous membranes moist. Ears and nose without deformities. Trachea midline. Respiratory: Clear to auscultation bilaterally. No wheezing, rales, or rhonchi. Cardiovascular: S1, S2 regular. No murmurs, rubs, or gallops. Gastrointestinal: Abdomen soft, non-distended, with epigastric abdominal pain. Normal bowel sounds. Neurologic: Cranial nerves II-XII are grossly intact bilaterally. No focal neurological deficits. Moves all extremities spontaneously. Skin: No rashes or lesions noted. Musculoskeletal: No cyanosis or clubbing. Extremities: No edema. Psychiatric: Normal mood and affect. Results Labs 12/17/22 08:23 12/17/22 08:23 Labs: Laboratory Results - last 24 hr 12/17/22 12/17/22 12/17/22 08:09 08:09 08:09 MCV MCH MCHC RDW Plt Count MPV Immature Gran % (Auto) Neut % (Auto) Lymph % (Auto) [place] % (Auto) Eos % (Auto) Baso % (Auto) Lymph # (Auto) [place] # (Auto) Eos # (Auto) Baso # (Auto) Abs Immat Gran (auto) Absolute Neuts (auto) Absolute Nucleated RBC Nucleated RBC % (auto) Smear Tech's Comments Anion Gap Estim Creat Clear Calc Estimated GFR Random Glucose Calcium Magnesium Total Bilirubin AST ALT Alkaline Phosphatase Total Protein Albumin Lipase Urine Color Yellow Urine Appearance Clear Urine pH 5.5 Ur Specific [place] >= 1.030 H Urine Protein Trace Urine Glucose (UA) >=1000 H Urine Ketones Trace Urine Blood Negative Urine Nitrite Negative Ur Leukocyte Esterase Negative Urine RBC 0-2 Urine WBC 0-5 Ur Squamous Epith Cells 0-2 Urine Bacteria None Seen Hyaline Casts 0-2 Salicylates Urine Opiates Screen Not Detected Urine Fentanyl Screen Not Detected Acetaminophen Ur Barbiturates Screen Not Detected Ur Phencyclidine Scrn Not Detected Ur Amphetamines Screen Not Detected U Benzodiazepines Scrn Not Detected Urine Cocaine Screen POSITIVE H U Marijuana (THC) Screen Not Detected Ethyl Alcohol COVID-19 (TANA) Negative COVID-19 Clin Com See Note 12/17/22 12/17/22 12/17/22 08:23 08:23 08:23 MCV 80.8 MCH 27.4 MCHC 33.9 RDW 13.7 Plt Count 167 D MPV 10.5 Immature Gran % (Auto) 0.6 H Neut % (Auto) 77.8 H Lymph % (Auto) 13.5 L [place] % (Auto) 7.0 Eos % (Auto) 0.7 Baso % (Auto) 0.4 Lymph # (Auto) 1.3 [place] # (Auto) 0.7 Eos # (Auto) 0.1 Baso # (Auto) 0.0 Abs Immat Gran (auto) 0.06 H Absolute Neuts (auto) 7.3 Absolute Nucleated RBC 0.000 Nucleated RBC % (auto) 0.0 Smear Tech's Comments VERIFIED Anion Gap 17 Estim Creat Clear Calc 92.4 Estimated GFR > 60 Random Glucose 331 H Calcium 10.3 H Magnesium 1.5 L Total Bilirubin 0.5 AST 45 H ALT 41 H Alkaline Phosphatase 125 H Total Protein 8.5 H Albumin 4.7 Lipase 37 Urine Color Urine Appearance Urine pH Ur Specific [place] Urine Protein Urine Glucose (UA) Urine Ketones Urine Blood Urine Nitrite Ur Leukocyte Esterase Urine RBC Urine WBC Ur Squamous Epith Cells Urine Bacteria Hyaline Casts Salicylates < 5.0 L Urine Opiates Screen Urine Fentanyl Screen Acetaminophen < 17 Ur Barbiturates Screen Ur Phencyclidine Scrn Ur Amphetamines Screen U Benzodiazepines Scrn Urine Cocaine Screen U Marijuana (THC) Screen Ethyl Alcohol COVID-19 ([facility]NA) COVID-19 Clin Com 12/17/22 08:23 MCV MCH MCHC RDW Plt Count MPV Immature Gran % (Auto) Neut % (Auto) Lymph % (Auto) [place] % (Auto) Eos % (Auto) Baso % (Auto) Lymph # (Auto) [place] # (Auto) Eos # (Auto) Baso # (Auto) Abs Immat Gran (auto) Absolute Neuts (auto) Absolute Nucleated RBC Nucleated RBC % (auto) Smear Tech's Comments Anion Gap Estim Creat Clear Calc Estimated GFR Random Glucose Calcium Magnesium Total Bilirubin AST ALT Alkaline Phosphatase Total Protein Albumin Lipase Urine Color Urine Appearance Urine pH Ur Specific [place] Urine Protein Urine Glucose (UA) Urine Ketones Urine Blood Urine Nitrite Ur Leukocyte Esterase Urine RBC Urine WBC Ur Squamous Epith Cells Urine Bacteria Hyaline Casts Salicylates Urine Opiates Screen Urine Fentanyl Screen Acetaminophen Ur Barbiturates Screen Ur Phencyclidine Scrn Ur Amphetamines Screen U Benzodiazepines Scrn Urine Cocaine Screen U Marijuana (THC) Screen Ethyl Alcohol < 10 COVID-19 (TANA) COVID-19 Clin Com Imaging Radiologist's Impressions: Impressions Abdomen/Pelvis CT 12/17/22 10:52 IMPRESSION: No appreciable enteric inflammatory or obstructive process. Findings suggestive of a small gallbladder polyp. Hepatic fatty infiltration. Other incidental findings as noted above. Fleischner guidelines were followed. Abdomen Ultrasound 12/17/22 14:19 IMPRESSION: 1. Diffuse increased hepatic echotexture is nonspecific, but can be seen with hepatic steatosis. Correlate with liver function tests. 2. 0.4 cm gallbladder polyp without other significant abnormality. This can be monitored for change with a right upper quadrant ultrasound in one year. Assessment and Plan (1) Diabetic gastroparesis: Status: Acute Plan Pt is a 61-year-old male with a PMH significant for?HTN, [id number]-htrgmeimh diabetes type 2, HLD, neuropathy, cocaine use disorder sober for 2-3 months, alcohol use disorder sober for 8 years, and lung cancer s/p right lower lobe resection who presents to the ED with?2-3 days of intractable nausea, vomiting, abdominal pain. Patient be admitted to the hospital for treatment further evaluation of intractable nausea, vomiting, abdominal pain in the setting of likely diabetic gastroparesis. Intractable nausea and vomiting Patient with nausea, vomiting, and epigastric abdominal pain x2-3 days Likely secondary to diabetic gastroparesis IVF: Lactated Ringer's Anti emetics Protonix IV 20 mg b.i.d. Clear liquid diet, advance as tolerated [id number] diabetes type 2 Patient's random glucose 331 Hold metformin, place on sliding scale Hypomagnesmia Magnesium 1.5 at time of presentation Will give Mag 2g IV, replenish as necessary Transaminitis Likely secondary to hepatic steatosis Patient with long history of alcohol use disorder, sober past 8 years Patient asymptomatic: Denies right upper abdominal pain HTN Continue home meds Mood disorder Continue home meds HLD Continue statin, fenofibrate Full Code Attending:?Dr. Verduzco DVT Prophylaxis: Lovenox Pt will require a hospitalization of at least two nights for treatment of?intractable nausea, vomiting, abdominal pain in the setting of likely diabetic gastroparesis with IVF, antiemetics, and close monitoring. Time Spent With Patient Time: Total time managing care of this patient today ____ minutes. Quality Stroke Does the patient have a stroke diagnosis?: No VTE Prior VTE?: No VTE Risk Level:: Medical - moderate - high VTE Device Contraindication: Treatment Not Indicated VTE Drug Contraindication: N/A - Med Ordered
--- NOTE | 2022-12-17 16:37 | PHA.MEDREC ---
Pharmacy Consult ? Medication Reconciliation Pharmacy has completed the medication reconciliation. Received list from Brenna ([employer]). Lexus Bean, GeorgeD
[2022-12-17] MEDS: Metoprolol Succinate ER 25 MG TAB.ER.24H PO (18:28)
[2022-12-17] MEDS: Pantoprazole Sodium 40 MG/10 ML VIAL IVPUSH (18:28)
[2022-12-17] MEDS: QUEtiapine Fumarate 50 MG TABLET PO (18:28)
[2022-12-17] MEDS: lisinopriL 5 MG TABLET PO (18:28)
[2022-12-17] MEDS: Buprenorphine/Naloxone 8/2 mg FILM 1 FILM BUCCAL (18:28)
[2022-12-17] MEDS: Magnesium Sulfate/H2O 2 GM/50 ML PIGGYBACK IV (18:28)
[2022-12-17] MEDS: Atorvastatin Calcium 40 MG TABLET PO (18:28)
[2022-12-17] MEDS: Sertraline HCL 100 MG TABLET PO (18:28)
[2022-12-17] MEDS: Enoxaparin Sodium 40 MG/0.4 ML SYRINGE SUBCUT (18:29)
[2022-12-17] MEDS: Lactated Ringers 1,000 ML 100 ML IVCONT (18:53)
[2022-12-17 18:58] VITALS: BP 165/77; PULSE 74; RESP 19; O2SAT 96
--- NOTE | 2022-12-17 21:06 | PC.NURSE ---
report attempted at 2044 and 2104, no success in reaching floor nurse
[2022-12-17 22:01] VITALS: BMI 26.8
[2022-12-17 22:02] LABS: Glucose, Whole Blood 282 mg/dL (60-115)
[2022-12-17] MEDS: Insulin Lispro 100 UNIT/ML 3 ML VIAL SUBCUT (22:24)
[2022-12-17] MEDS: QUEtiapine Fumarate 100 MG TABLET PO (22:24)
[2022-12-18 04:00] VITALS: BP 96/51; PULSE 60; RESP 16; TEMP 36.4; O2SAT 96
[2022-12-18] MEDS: Lactated Ringers 1,000 ML 100 ML IVCONT ×3 (04:55→23:25)
[2022-12-18] MEDS: Pantoprazole Sodium 40 MG/10 ML VIAL IVPUSH ×2 (06:28→16:07)
[2022-12-18 06:38] LABS: Hemoglobin 10.5 g/dl (14.0-18.0); Mean Corpuscular HGB Conc 32.8 g/dl (31.0-36.0); Mean Corpuscular Hemoglobin 27.6 pg (27.0-33.0); Mean Corpuscular Volume 84.2 fL (80.0-98.0); Platelet Count 170 X10*3/uL (160-400); Red Cell Distribution Width 13.8 % (11.0-16.0); White Blood Count 5.1 X10*3/uL (4.8-10.8)
[2022-12-18 06:49] LABS: Anion Gap 12 (12-20); Blood Urea Nitrogen 7 mg/dL (9-16); Calcium 8.1 mg/dL (8.4-10.2); Carbon Dioxide 23 mmol/L (22-29); Chloride 100 mmol/L (96-108); Creatinine Clr Calc Pharmacy 96.9; Estimated Glomerular Filt Rate > 60; Glucose Random 305 mg/dL (60-115); Magnesium 1.6 mg/dL (1.6-2.6); Potassium 3.6 mmol/L (3.3-5.1); Sodium 131 mmol/L (135-145)
[2022-12-18 07:06] VITALS: BP 107/53; PULSE 70; RESP 20; TEMP 36.4; O2SAT 96
[2022-12-18 07:24] LABS: Glucose, Whole Blood 297 mg/dL (60-115)
[2022-12-18] MEDS: Sertraline HCL 100 MG TABLET PO (07:39)
[2022-12-18] MEDS: Atorvastatin Calcium 40 MG TABLET PO (07:39)
[2022-12-18] MEDS: Insulin Lispro 100 UNIT/ML 3 ML VIAL SUBCUT ×4 (07:40→21:15)
[2022-12-18] MEDS: lisinopriL 5 MG TABLET PO (07:40)
[2022-12-18] MEDS: Metoprolol Succinate ER 25 MG TAB.ER.24H PO (07:40)
[2022-12-18] MEDS: Fenofibrate 54 MG TABLET PO (07:40)
[2022-12-18] MEDS: QUEtiapine Fumarate 50 MG TABLET PO (07:44)
[2022-12-18] MEDS: Buprenorphine/Naloxone 8/2 mg FILM 1 FILM BUCCAL (08:32)
--- NOTE | 2022-12-18 09:39 | MHC.CM.PN ---
Addendum entered by Calista Poon 12/19/22 10:32: CM RECEIVED A CALL FROM MARGE, WHO REPORTS SHE IS PTS [facility] G[facility] SHE REQUESTED, AND WAS PROVIDED WITH, UPDATES SHE ALSO CONFIRMS PT ONLY HAS MOW AT THIS TIME HE HAS REFUSED ALL OTHER SERVICES OFFERED BY [facility] Addendum entered by Calista Poon 12/18/22 13:21: PT REPORTS HE LIVES ALONE HE HAS MOW FROM [facility] AND NO OTHER SERVICES HOWEVER HE IS CONNECTED WITH [employer] AND COULD GET SERVICES IF NEEDED PT IS WHEEL CHAIR BOUND BUT REPORTS HE CAN STAND AND PIVOT INDEPENDENTLY PT REPORTS HE ALSO HAS A REP PAYEE THAT MANAGES HIS MONEY SO HE IS NOT BEHIND ON ANYTHING (THRIVE ASSESSMENT NEGATIVE) PT REPORTS HE IS NOT INTERESTED IN COMPLETING A HCP PT REPORTS HIS PCP IS KENDAL NAJERA AT [facility] HOWEVER THIS APPEARS TO BE A BEHAVIORAL HEALTH PROVIDER TASK SENT TO [facility] TO OBTAIN PCP INFO IMM DELIVERED DCP HOME WITH RESUMPTION OF MOW SERVICES PT WILL NEED BLS TRANSPORT Original Note: CM ATTEMPTED TO SEE PT WHO WAS SLEEPING SOUNDLY CM ATTEMPTS TO WAKE PT WERE UNSUCCESSFUL CM WILL RETURN
[2022-12-18 11:40] LABS: Glucose, Whole Blood 190 mg/dL (60-115)
--- NOTE | 2022-12-18 12:54 | P.PNIM_ITS ---
Subjective Subjective Date of Service: 12/18/22 Interval History: No acute issues overnight. States nausea and vomiting have resolved Review of Systems Denies chest pain Denies shortness of breath Denies nausea vomiting diarrhea Denies fever chills Physical Exam Vital Signs: Vital Signs: Last Vital Signs Temp 97.6 F 12/18/22 07:06 Pulse 70 12/18/22 07:06 Resp 20 12/18/22 07:06 BP 107/53 L 12/18/22 07:06 Pulse Ox 96 12/18/22 07:06 O2 Del Method Room Air 12/18/22 07:06 BMI result Body Mass Index 26.8 Const: Other: Awake alert no acute distress asking for diet Resp: Other: Clear to auscultation bilaterally no rales rhonchi or wheezes Cardio: Other: No S4; positive S1-S2; no S3 murmurs rubs or gallops GI: Other: Soft nontender nondistended normoactive bowel sounds Neuro: Other: Cranial nerves 2-12 grossly intact as tested. Motor is 5/5 all extremities. Sensation is intact Extrem: Other: No edema bilaterally Objective Data Active Medications Acetaminophen (Acetaminophen 325 Mg Tablet) 650 mg PO Q6H PRN PRN Reason: Pain, Mild (Pain Scale 1-3) Atorvastatin Calcium (Atorvastatin Calcium 40 Mg Tablet) 40 mg PO DAILY [facility] Last Admin: 12/18/22 07:39 Dose: 40 mg Documented By: AMMON Buprenorphine/Naloxone (Buprenorphine/Naloxone 8/2 Mg Film) 1 film BUCCAL DAILY [facility] Last Admin: 12/18/22 08:32 Dose: 1 film Documented By: AMMON Dextrose (Dextrose 50 % 25 Gm/50 Ml Syringe) 25 gm IVPUSH Q15M PRN; Protocol PRN Reason: per Hypoglycemia Standing Ord. Docusate Sodium (Docusate Sodium 100 Mg Capsule) 100 mg PO DAILY PRN PRN Reason: Constipation Enoxaparin Sodium (Enoxaparin Sodium 40 Mg/0.4 Ml Syringe) 40 mg SUBCUT Q24H [facility] Last Admin: 12/17/22 18:29 Dose: 40 mg Documented By: CINDA Fenofibrate (Fenofibrate 54 Mg Tablet) 54 mg PO DAILY [facility] Last Admin: 12/18/22 07:40 Dose: 54 mg Documented By: AMMON Glucose (Glucose Gel 15 Gm Gel..Gram.) 15 gm PO Q15M PRN; Protocol PRN Reason: per Hypoglycemia Standing Ord. Lactated Ringer's (Lr) 1,000 mls @ 100 mls/hr IVCONT .Q10H [facility] Last Admin: 12/18/22 04:55 Dose: 100 mls/hr Documented By: ROBYN Insulin Human Lispro (Insulin Lispro 100 Unit/Ml 3 Ml Vial) 0 unit SUBCUT QIDACHS [facility]; Protocol Last Admin: 12/18/22 12:07 Dose: 1 unit Documented By: AMMON Lisinopril (Lisinopril 5 Mg Tablet) 5 mg PO DAILY [facility]; Protocol Last Admin: 12/18/22 07:40 Dose: 5 mg Documented By: AMMON Metoprolol Succinate (Metoprolol Succinate Er 25 Mg Tab.Er.24h) 25 mg PO DAILY [facility]; Protocol Last Admin: 12/18/22 07:40 Dose: 25 mg Documented By: AMMON Pantoprazole Sodium (Pantoprazole Sodium 40 Mg/10 Ml Vial) 40 mg IVPUSH BID@0630,1630 [facility] Last Admin: 12/18/22 06:28 Dose: 40 mg Documented By: ROBYN Prochlorperazine Edisylate (Prochlorperazine Edisylate 10 Mg/2 Ml Vial) 5 mg IVPUSH Q4H PRN PRN Reason: Nausea and Vomiting Last Admin: 12/17/22 18:27 Dose: 5 mg Documented By: CINDA Quetiapine Fumarate (Quetiapine Fumarate 50 Mg Tablet) 50 mg PO DAILY [facility] Last Admin: 12/18/22 07:44 Dose: 50 mg Documented By: AMMON Quetiapine Fumarate (Quetiapine Fumarate 100 Mg Tablet) 100 mg PO BEDTIME [facility] Last Admin: 12/17/22 22:24 Dose: 100 mg Documented By: ROBYN Sertraline HCl (Sertraline Hcl 100 Mg Tablet) 100 mg PO DAILY [facility] Last Admin: 12/18/22 07:39 Dose: 100 mg Documented By: AMMON Sodium Chloride (0.9 % Sodium Chloride Flush 3 Ml Syringe) 3 ml IVFLUSH QSHIFT [facility] Last Admin: 12/18/22 07:42 Dose: Not Given Documented By: AMMON Non-Admin Reason: IV Running Labs 12/18/22 05:55 12/18/22 05:55 Labs: Laboratory Results - last 24 hr 12/17/22 12/18/22 12/18/22 21:59 05:55 05:55 MCV 84.2 MCH 27.6 MCHC 32.8 RDW 13.8 Plt Count 170 MPV 10.0 Absolute Nucleated RBC 0.000 Nucleated RBC % (auto) 0.0 Anion Gap 12 Estim Creat Clear Calc 96.9 Estimated GFR > 60 POC Glucose 282 H Random Glucose 305 H Calcium 8.1 L D Magnesium 1.6 12/18/22 12/18/22 07:20 11:36 MCV MCH MCHC RDW Plt Count MPV Absolute Nucleated RBC Nucleated RBC % (auto) Anion Gap Estim Creat Clear Calc Estimated GFR POC Glucose 297 H 190 H Random Glucose Calcium Magnesium Assessment and Plan (1) Intractable vomiting: Status: Acute (2) NIDDY (non-insulin dependent diabetes mellitus in young): Status: Acute (3) HTN (hypertension): Status: Acute Plan Pt is a 61-year-old male with a PMH significant for?HTN, [id number]-hlohdvwnc diabetes type 2, HLD, neuropathy, cocaine use disorder sober for 2-3 months, alcohol use disorder sober for 8 years, and lung cancer s/p right lower lobe resection who presents to the ED with?2-3 days of intractable nausea, vomiting, abdominal pain. Patient be admitted to the hospital for treatment further evaluation of intractable nausea, vomiting, abdominal pain in the setting of likely diabetic gastroparesis. Intractable nausea and vomiting Patient with nausea, vomiting, and epigastric abdominal pain x2-3 days Likely secondary to diabetic gastroparesis IVF: Lactated Ringer's Anti emetics Protonix IV 20 mg b.i.d. Clear liquid diet, advance as tolerated Vml-qwliyox-plwjczrcc diabetes type 2 Patient's random glucose 331 Hold metformin, place on sliding scale Hypomagnesmia Magnesium 1.5 at time of presentation Will give Mag 2g IV, replenish as necessary Transaminitis Likely secondary to hepatic steatosis Patient with long history of alcohol use disorder, sober past 8 years Patient asymptomatic: Denies right upper abdominal pain HTN Continue home meds Mood disorder Continue home meds HLD Continue statin, fenofibrate Full Code Attending:?Dr. Verduzco DVT Prophylaxis: Lovenox Pt will require a hospitalization of at least two nights for treatment of?intractable nausea, vomiting, abdominal pain in the setting of likely diabetic gastroparesis with IVF, antiemetics, and close monitoring. Time Spent With Patient Time: Total time managing care of this patient today ____ minutes. Quality Stroke Does the patient have a stroke diagnosis?: No VTE Prior VTE?: No VTE Risk Level:: Medical - moderate - high VTE Device Contraindication: Treatment Not Indicated VTE Drug Contraindication: N/A - Med Ordered
[2022-12-18 15:25] VITALS: BP 128/61; PULSE 62; RESP 20; TEMP 36.6; O2SAT 96
[2022-12-18 15:41] LABS: Glucose, Whole Blood 251 mg/dL (60-115)
[2022-12-18] MEDS: Enoxaparin Sodium 40 MG/0.4 ML SYRINGE SUBCUT (17:05)
[2022-12-18 19:15] VITALS: BP 135/67; PULSE 64; RESP 20; TEMP 36.6; O2SAT 95
[2022-12-18 20:42] LABS: Glucose, Whole Blood 256 mg/dL (60-115)
[2022-12-18] MEDS: QUEtiapine Fumarate 100 MG TABLET PO (21:15)
[2022-12-19 04:00] VITALS: BP 113/55; PULSE 60; RESP 18; TEMP 36.1; O2SAT 94
[2022-12-19] MEDS: Pantoprazole Sodium 40 MG/10 ML VIAL IVPUSH (05:58)
[2022-12-19 07:22] VITALS: BP 113/57; PULSE 62; RESP 20; TEMP 36.3; O2SAT 96
[2022-12-19 07:28] VITALS: BP 141/65
[2022-12-19 07:40] LABS: Glucose, Whole Blood 283 mg/dL (60-115)
[2022-12-19] MEDS: Fenofibrate 54 MG TABLET PO (08:30)
[2022-12-19] MEDS: Atorvastatin Calcium 40 MG TABLET PO (08:30)
[2022-12-19] MEDS: Insulin Lispro 100 UNIT/ML 3 ML VIAL SUBCUT ×2 (08:30→12:10)
[2022-12-19] MEDS: Sertraline HCL 100 MG TABLET PO (08:30)
[2022-12-19] MEDS: Buprenorphine/Naloxone 8/2 mg FILM 1 FILM BUCCAL (08:30)
[2022-12-19] MEDS: Metoprolol Succinate ER 25 MG TAB.ER.24H PO (08:31)
[2022-12-19] MEDS: QUEtiapine Fumarate 50 MG TABLET PO (08:31)
[2022-12-19] MEDS: lisinopriL 5 MG TABLET PO (08:31)
[2022-12-19] MEDS: Lactated Ringers 1,000 ML 100 ML IVCONT (09:26)
[2022-12-19 11:16] LABS: Glucose, Whole Blood 174 mg/dL (60-115)
--- NOTE | 2022-12-19 11:22 | PM.DS ---
DS: Providers Provider Date of Service: 12/19/22 Date of admission: 12/17/22 17:02 Date of discharge: 12/19/22 Primary care physician: Unknown Physician DS: Diagnosis Discharge Diagnosis (1) Intractable vomiting: Status: Acute (2) NIDDY (non-insulin dependent diabetes mellitus in young): Status: Acute (3) HTN (hypertension): Status: Acute DS: Summary Hospital Course Hospital Course: 61-year-old male with a PMH significant for?HTN, [id number] diabetes type 2, HLD, neuropathy, cocaine use disorder sober for 2-3 months, alcohol use disorder sober for 8 years, and lung cancer s/p right lower lobe resection who presents to the ED with?2-3 days of intractable nausea, vomiting, abdominal pain.? Patient states that he has been experiencing nausea with vomiting for the past few days, noting that last night he was dry heaving and this morning had yellow colored vomitus.? Has not been able to eat or drink much during this time.? Patient locates his pain mostly in the epigastric region, states currently his pain is a 7/10.? Nausea is currently not controlled despite receiving ondansetron, Reglan, and Clopramide. Four days ago patient states he experienced subjective fever and chills, staying in bed for most of the day because he did not feel well.? Patient denies hematemesis, diarrhea.? No chest pain/pressure, palpitations.? Denies shortness of breath.? Of note, patient was admitted for similar complaints in April of this year.? Patient denies history of marijuana use, though notes he uses CBD oil.? Patient also is non ambulatory at baseline d/t chronic injuries and lower leg pain, uses a wheelchair. In the ED patient was afebrile and hypertensive up to 195/83. Labs were significant for sodium of 134, random glucose of 331, magnesium 1.5, AST 45, ALT 41, alk-phos 125, troponin WNL at 17.1. CT?of abdomen and pelvis found no appreciable enteric inflammation or obstructive process.? Did find small gallbladder polyp and hepatic fatty infiltration.? Abdominal ultrasound bony fused increased hepatic echotexture possibly suggestive of hepatic steatosis, and a 0.4 cm gallbladder polyp without other significant abnormality, recommends right upper quadrant ultrasound follow-up in 1 year. EKG demonstrated sinus rhythm with first-degree AV block with no evidence of ST elevations or depressions. Pt was treated with ondansetron, IVF, metoclopramide, diphenhydramine, insulin, and prochlorperazine. Pt will be admitted to the hospital treatment further evaluation of intractable nausea, vomiting, abdominal pain in the setting of likely diabetic gastroparesis. Hospital course Patient admitted to general medical floor on clear liquids with IV fluids. Over the course of 24 hours his nausea and vomiting resolved and he was able to tolerate a diet. This a.m. he took his breakfast without issue and he has not complained of abdominal pain. He states he feels at baseline and wishes to go home. At this point in time oblique he is medically acceptable for same Time Spent with Patient Time attestation: Total time managing care of this patient today ____ minutes. Discharge coordination time: Greater than 30 minutes Quality: Safe Use of Opioids Does Pt have an Active Cancer Diagnosis on the Problem List?: No Quality: Stroke Does the patient have a stroke diagnosis?: No Physical Exam Vital Signs: Vital Signs: Last Vital Signs Temp 97.4 F 12/19/22 07:22 Pulse 62 12/19/22 07:22 Resp 20 12/19/22 07:22 BP 141/65 H 12/19/22 07:28 Pulse Ox 96 12/19/22 07:22 O2 Del Method Room Air 12/19/22 07:22 BMI result Body Mass Index 26.8 Const: Other: Awake alert no acute distress asking for diet Resp: Other: Clear to auscultation bilaterally no rales rhonchi or wheezes Cardio: Other: No S4; positive S1-S2; no S3 murmurs rubs or gallops GI: Other: Soft nontender nondistended normoactive bowel sounds Neuro: Other: Cranial nerves 2-12 grossly intact as tested. Motor is 5/5 all extremities. Sensation is intact Extrem: Other: No edema bilaterally DS: Data Data Completed and Pending Completed studies during hospitalization [Text1]: Procedures Transfusion of Nonautologous Red Blood Cells into Peripheral Vein, Percutaneous Approach (04/24/21) Labs on day of discharge: Laboratory Results - last 24 hr 12/18/22 12/18/22 12/18/22 11:36 15:35 20:38 POC Glucose 190 H 251 H 256 H 12/19/22 12/19/22 07:27 10:45 POC Glucose 283 H 174 H Discharge Plan Discharge Anticipated Discharge Date/Time: 12/19/22 11:20 Patient Disposition: Home, Self-Care Discharge Diagnosis: Intractable vomiting Referrals: Physician,Unknown J [Primary Care Provider] - 1 Week Discharge Medications: Continued lisinopril 5 mg Tablet 5 mg PO DAILY 30 Days Qty: 30 0RF Protocol: Hold for SBP< HOLD for SBP < : 90 atorvastatin 40 mg tablet 40 mg PO DAILY pantoprazole 40 mg tablet,delayed release (DR/EC) 40 mg PO DAILY metoprolol succinate 25 mg tablet extended release 24 hr 25 mg PO DAILY Protocol: Hold for SBP/HR < HOLD for SBP < : 90 HOLD for HR < : 60 fenofibrate 54 mg tablet 54 mg PO DAILY sertraline 100 mg Tablet 100 mg PO DAILY quetiapine 100 mg Tablet 100 mg PO BEDTIME metformin 1,000 mg Tablet 1,000 mg PO BID quetiapine 50 mg Tablet 50 mg PO DAILY buprenorphine-naloxone 8-2 mg Film 1 film BUCCAL DAILY Discharge Orders: Discharge Order (Routine); Ordered 12/19/22 Ordered By: Duane Verduzco Diet: Advance to usual diet Activity on Discharge: As tolerated Stand Alone Forms: Patient Portal Discharge page Care Plan Goals: Resume all pre-hospital medications Health Concerns: Advanced slowly your diet as tolerated Plan of Treatment: Return to ER if symptoms return Assessment: See discharge summary Patient Instructions: Acute Nausea and Vomiting (ED), Acute Abdominal Pain (ED)
--- NOTE | 2022-12-19 13:06 | MHC.CM.PN ---
PT WILL DC HOME TODAY WITH RESUMPTION OF [facility] ARRANGED VIA [facility] FOR 1300 HOURS
== END 2022-12-19 13:00 | disposition home or self-care (01) | DRG 74 ==
LOC: HO.ED 09:31 → HO.EDOVER 17:21 → HO.S3 17:46
PROVIDERS: Physician Assistant; Admitting Provider Student in an Organized Health Care Education/Training Program; Emergency Provider Emergency Medicine; Visit Provider Hospitalist
DX: E11.43 Type 2 diabetes mellitus with diabetic autonomic (poly)neuropathy (principal); F33.1 Major depressive disorder, recurrent, moderate; F11.20 Opioid dependence, uncomplicated; K31.84 Gastroparesis; F10.11 Alcohol abuse, in remission; F17.210 Nicotine dependence, cigarettes, uncomplicated; K76.0 Fatty (change of) liver, not elsewhere classified; E78.5 Hyperlipidemia, unspecified; E11.40 Type 2 diabetes mellitus with diabetic neuropathy, unspecified; E83.42 Hypomagnesemia; I44.0 Atrioventricular block, first degree; Z71.6 Tobacco abuse counseling; Z85.118 Personal history of other malignant neoplasm of bronchus and lung; Z90.2 Acquired absence of lung [part of]; Z20.822 Contact with and (suspected) exposure to COVID-19; Z79.84 Long term (current) use of oral hypoglycemic drugs; Z79.899 Other long term (current) drug therapy
CPT/HCPCS: 36415; 74177; 76705; 80048; 80053; 80143; 80179; 80307; 81001; 82947; 83690; 83735; 84484; 85025; 85027; 87635; 93005; 99285; J1200; J1650; J2405; J2765; J3475; Q9967

== ENCOUNTER → 2022-12-17 17:02 | Outpatient (BNV) | payer OTHER, MEDICAID, SELFPAY | PROVIDERS: Admitting Provider Student in an Organized Health Care Education/Training Program; Emergency Provider Emergency Medicine; Visit Provider Student in an Organized Health Care Education/Training Program | DX: R11.10 Vomiting, unspecified (principal); E11.43 Type 2 diabetes mellitus with diabetic autonomic (poly)neuropathy; I10 Essential (primary) hypertension | CPT/HCPCS: 99222; 99233; 99239 ==

== ENCOUNTER 2022-12-31 04:33 | Emergency (ER) | payer OTHER, MEDICAID, SELFPAY ==
--- NOTE | ~2022-12-31 | XR_ITS ---
EXAMINATION: XR CHEST CLINICAL INFORMATION: Pain after vomiting COMPARISON: Chest radiograph from 04/24/2021, CT chest from 11/28/2022 TECHNIQUE: Frontal view of the chest was obtained. FINDINGS: Stable volume loss of the right hemithorax with surgical clips overlying the right mid chest field. Emphysematous changes. No pneumothorax. Trachea is midline. Cardiomediastinal silhouette is stable. No large pleural effusion. Degenerative changes of the thoracolumbar spine. Soft tissues are unremarkable. XR/XR chest 1V IMPRESSION: 1. Stable volume loss of the right hemithorax with surgical clips overlying the right mid chest field. 2. Emphysematous changes.
--- NOTE | 2022-12-31 04:44 | ECG_ITS ---
Test Reason : abd pain Blood Pressure : / mmHG Vent. Rate : 076 BPM Atrial Rate : 076 BPM P-R Int : 208 ms QRS Dur : 098 ms QT Int : 382 ms P-R-T Axes : 023 016 050 degrees QTc Int : 429 ms Normal sinus rhythm Incomplete right bundle branch block Borderline ECG When compared with ECG of 31-DEC-2022 04:47, No significant change was found Referred By: Maricruz Mosqueda Electronically Signed By:MAL DIXON
[2022-12-31 04:48] VITALS: BP 185/82; PULSE 82; O2SAT 96
[2022-12-31 04:51] VITALS: BP 162/81; PULSE 83; RESP 14; TEMP 37.1; O2SAT 95; BMI 27.6
[2022-12-31 05:08] LABS: MANUAL DIFF FLAG NO
[2022-12-31 05:09] LABS: Basophils Percent Auto 0.5 % (0-2); Eosinophils Percent Auto 0.5 % (0-4); Hematocrit 39.2 % (42.0-52.0); Hemoglobin 13.5 g/dl (14.0-18.0); Imm Gran Abs Auto 0.03 X10*3/uL (0.00-0.03); Imm Gran Pct Auto 0.4 % (0.0-0.4); Lymphocytes Percent Auto 13.5 % (20-40); Mean Corpuscular HGB Conc 34.4 g/dl (31.0-36.0); Mean Corpuscular Hemoglobin 27.2 pg (27.0-33.0); Mean Platelet Volume 9.6 fL (9.4-12.4); Monocytes Absolute Auto 0.5 X10*3/uL (0.1-1.2); Monocytes Percent Auto 7.1 % (2-11); Neutrophils Absolute Auto 5.9 x10*3/uL (2.0-8.3); Platelet Count 210 X10*3/uL (160-400); Red Blood Count 4.96 X10*6/uL (4.60-5.80); Red Cell Distribution Width 13.6 % (11.0-16.0); White Blood Count 7.6 X10*3/uL (4.8-10.8)
--- NOTE | 2022-12-31 05:13 | PC.NURSE ---
pt nausea/vomiting/dry heaving at time of assessment. reports he vomited 15 times [employer] since 02:00 am. ekg done in triage. zofran verbal ordered. verified on ekg QRS within normal limits pt able to take and tolerate zofran. iv line in place by ems, labs sent, pt on electronic device monitor. call billingsley within reach.
[2022-12-31] MEDS: ondansetron HCL 4 MG/2 ML VIAL IVPUSH ×2 (05:17→07:37)
[2022-12-31 05:28] LABS: Alanine Aminotransferase 33 U/L (0-40); Albumin Level 4.5 g/dL (3.5-5.0); Alkaline Phosphatase 84 U/L (39-117); Anion Gap 17 (12-20); Aspartate Amino Transferase 35 U/L (5-37); Bilirubin Direct 0.2 mg/dL (0.0-0.5); Bilirubin Total 0.7 mg/dL (0.0-1.0); Blood Urea Nitrogen 15 mg/dL (9-16); Calcium 9.8 mg/dL (8.4-10.2); Carbon Dioxide 20 mmol/L (22-29); Chloride 101 mmol/L (96-108); Creatinine Clr Calc Pharmacy 86.3; Estimated Glomerular Filt Rate > 60; Glucose Random 358 mg/dL (60-115); Lipase 34 U/L (8-78); Potassium 4.2 mmol/L (3.3-5.1); Sodium 134 mmol/L (135-145); Total Protein 7.7 g/dL (6.5-8.0)
--- NOTE | 2022-12-31 07:02 | ED_ITS ---
HPI - Nausea/Vomiting/Diarrhea General Chief complaint: Nausea/Vomiting/Diarrhea Stated complaint: WEAKNESS,CP X4 HOURS PER EMS Time Seen by Provider: 12/31/22 06:58 Source: patient Mode of arrival: EMS Limitations: no limitations History of Present Illness HPI Narrative: 62 yo male with PMH of CVA, chronic pain, substance abuse, GIB, DM , HTN, diabetic gastroparesis - just seen 12/17 for similar episode with no acute pathology on US and CT scan at that time. He comes in again with n/v and epigastric pain starting at 2am. Denies sick contacts or food exposures. He has not had a fever. He states my stomach is messed up. This happens all the time. MD elicited complaint: nausea, vomiting and abdominal pain Pertinent past history: abdominal surgery and alcohol abuse Onset (ago): hour(s) (since 2am) Description of vomiting: food contents and watery Associated nausea: Yes Associated abdominal pain: Yes Location of pain: epigastric Radiation: chest (after multiple episodes of vomiting) Pain consistency: constant Severity: similar to previous episodes Quality: cramping and aching Exacerbating factors: eating Relieving factors: none Context: history of abdominal surgery Associated symptoms: chest pain, loss of appetite, malaise and nausea/vomiting Related Data Home Medications Medication Instructions Recorded Confirmed atorvastatin 40 mg tablet 40 mg PO DAILY 01/01/22 12/17/22 fenofibrate 54 mg tablet 54 mg PO DAILY 01/01/22 12/17/22 metoprolol succinate 25 mg 25 mg PO DAILY 01/01/22 12/17/22 tablet,extended release 24 hr pantoprazole 40 mg tablet,delayed 40 mg PO DAILY 01/01/22 12/17/22 release buprenorphine 8 mg-naloxone 2 mg 1 film buccal DAILY 12/17/22 12/17/22 sublingual film metformin 1,000 mg tablet 1,000 mg PO BID 12/17/22 12/17/22 quetiapine 100 mg tablet 100 mg PO BEDTIME 12/17/22 12/17/22 quetiapine 50 mg tablet 50 mg PO DAILY 12/17/22 12/17/22 sertraline 100 mg tablet 100 mg PO DAILY 12/17/22 12/17/22 Previous Rx's Medication Instructions Recorded lisinopril 5 mg tablet 5 mg PO DAILY 30 days #30 tabs 11/08/21 ondansetron 4 mg disintegrating 4 mg PO Q8H PRN nausea and 12/31/22 tablet vomiting #20 tabs Allergies Allergy/AdvReac Type Severity Reaction Status Date / Time No Known Allergies Allergy Verified 12/31/22 06:17 Review of Systems Review of Systems: Constitutional : No Weight loss, No Fever, No Chills ENT/Mouth : No sore throat, No Rhinorrhea Eyes: No Swelling, No Redness Cardiovascular : pos Chest Pain, No SOB, NoEdema Respiratory : No Cough, No Sputum, No Wheezing Gastrointestinal : Positive Nausea, Positive Vomiting, no Diarrhea, positive abdominal Pain, No Hematochezia, No Melena Genitourinary : No Dysuria, No Urinary Frequency, No Hematuria, No Urgency Musculoskeletal : No joint pain, No Myalgias, No Joint Swelling Skin : No Skin Lesions, No rash Neuro : No Weakness, No Numbness, No Dizziness, No Headache Psych : No Anxiety/Panic, No Depression All other systems reviewed and are negative. Gastrointestinal: Gastrointestinal: Reports nausea PMFSH Past Medical History Attestation statement: The following information was validated with the patient. 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 use disorder, mild, in sustained remission Social History Social History Household Members: None Housing: Apartment Housing Other:: soliders on Unable to assess alcohol history related to: Unknown Alcohol intake: former Patient Tobacco Use Status: Never used Tobacco Tobacco use type: Cigarette Cigarette Packs Per Day: 2 Cigarettes Per Day: 40.0 Years Smoked: 12 Smoked in Last 30 Days: No e-Cigarette/Vaping Use: Never Used Second Hand Smoke Exposure: No Substance Use Type: Crack/Cocaine and Marijuana Advance Directives: No Advance Directives Information Provided: No service: Yes ([employer]) Current occupational status: disabled Sexual orientation: Decline to Answer Physical Exam Vital Signs: Vital Signs: Last Vital Signs Temp 98.5 F 12/31/22 07:41 Pulse 68 12/31/22 07:41 Resp 16 12/31/22 07:41 BP 172/79 H 12/31/22 07:41 Pulse Ox 96 12/31/22 07:41 O2 Del Method Room Air 12/31/22 07:41 BMI result Body Mass Index 27.6 Appearance: Alert. Oriented X3. No acute distress. Eyes: Pupils equal, round and reactive to light. ENT: Pharynx normal. Neck: Normal inspection. Neck supple. CVS: Normal heart rate and rhythm. Pulses normal. Respiratory: No respiratory distress. Breath sounds normal. Abdomen: Soft and no distention mild ttp in epigastric area Skin: Skin warm and dry. Normal skin color. Normal skin turgor. Extremities: No lower extremity edema. No calf ttp Neuro: Oriented X 3. No motor deficit. No sensory deficit. Course Course Course Narrative: able to tolerate PO I did confront him about cocaine abuse and after that he stated he felt better and wanted to leave. Reevaluation(s) Reevaluation #1: pain improved with IV morphine Medications Administered Discontinued Medications Generic Name Dose Route Start Last Admin Trade Name Chrystal PRN Reason Stop Dose Admin Diphenhydramine HCl 25 mg 12/31/22 08:16 12/31/22 08:21 Diphenhydramine Hcl 50 Mg/Ml Vial IVPUSH 12/31/22 08:17 25 mg ONCE ONE Administration Sodium Chloride 500 mls @ 500 mls/hr 12/31/22 07:30 12/31/22 08:38 Ns IV 12/31/22 08:29 Infused .Q1H SHARA Infusion Metoclopramide HCl 10 mg 12/31/22 08:16 12/31/22 08:21 Metoclopramide Hcl 10 Mg/2 Ml Vial IVPUSH 12/31/22 08:17 10 mg ONCE ONE Administration Morphine Sulfate 4 mg 12/31/22 07:21 12/31/22 07:38 Morphine Sulfate 4 Mg/Ml Cartridge IVPUSH 12/31/22 07:22 4 mg ONCE ONE Administration Protocol Ondansetron HCl 4 mg 12/31/22 05:12 12/31/22 05:17 Ondansetron Hcl 4 Mg/2 Ml Vial IVPUSH 12/31/22 05:13 4 mg ONCE ONE Administration Ondansetron HCl 4 mg 12/31/22 07:21 12/31/22 07:37 Ondansetron Hcl 4 Mg/2 Ml Vial IVPUSH 12/31/22 07:22 4 mg ONCE ONE Administration Medical Decision Making Medical Decision Making [facility] Narrative: 62 yo male with PMH of CVA, chronic pain, substance abuse, GIB, DM , HTN, diabetic gastroparesis here with typical bout of n/v and epigastric pain with some radiation to the chest after vomiting he is not toxic his VS are stable he just had a full work up for same complaint on 12/[address] scan and US. At this time I am going to order basic labs, treat pain with IV morphine x 1 dose, nausea medications, EKG and troponin x 1 as his pain for chest has been x 4 ho urs. He also will need CXR to rule out any pathology post vomiting though clinically low suspicion. I suspect he has gastroparesis at this time. Differential Diagnosis Differential Diagnoses: The differential diagnosis associated with the presentation includes cyclical vomiting, gastritis, substance abuse, gastroparesis Admission/Observation Consideration of admission/observation: Escalation of care including admission/observation considered tolerating PO can be managed as outpatient Lab Data [facility] Lab Attestation statement: I reviewed the patient's lab results. 12/31/22 05:03 12/31/22 05:03 Labs: Lab Results 12/31/22 12/31/22 12/31/22 Range/Units 05:03 05:03 05:03 WBC 7.6 (4.8-10.8) X10*3/uL RBC 4.96 D (4.60-5.80) X10*6/uL Hgb 13.5 L D (14.0-18.0) g/dl Hct 39.2 L D (42.0-52.0) % MCV 79.0 L (80.0-98.0) fL MCH 27.2 (27.0-33.0) pg MCHC 34.4 (31.0-36.0) g/dl RDW 13.6 (11.0-16.0) % Plt Count 210 (160-400) X10*3/uL MPV 9.6 (9.4-12.4) fL Immature Gran % (Auto) 0.4 (0.0-0.4) % Neut % (Auto) 78.0 H (45-73) % Lymph % (Auto) 13.5 L (20-40) % [place] % (Auto) 7.1 (2-11) % Eos % (Auto) 0.5 (0-4) % Baso % (Auto) 0.5 (0-2) % Lymph # (Auto) 1.0 L (1.2-4.9) X10*3/uL [place] # (Auto) 0.5 (0.1-1.2) X10*3/uL Eos # (Auto) 0.0 (0.0-0.4) X10*3/uL Baso # (Auto) 0.0 (0.0-0.2) X10*3/uL Abs Immat Gran (auto) 0.03 (0.00-0.03) X10*3/uL Absolute Neuts (auto) 5.9 (2.0-8.3) x10*3/uL Absolute Nucleated RBC 0.000 (0.0-0.012) X10*3/uL Nucleated RBC % (auto) 0.0 (0.0-0.2) /100WBC Sodium 134 L (135-145) mmol/L Potassium 4.2 (3.3-5.1) mmol/L Chloride 101 (96-108) mmol/L Carbon Dioxide 20 L (22-29) mmol/L Anion Gap 17 (12-20) BUN 15 (9-16) mg/dL Creatinine 0.91 (0.5-1.4) mg/dL Estim Creat Clear Calc 86.3 Estimated GFR > 60 Random Glucose 358 H* (60-115) mg/dL Calcium 9.8 D (8.4-10.2) mg/dL Total Bilirubin 0.7 (0.0-1.0) mg/dL Direct Bilirubin 0.2 (0.0-0.5) mg/dL AST 35 (5-37) U/L ALT 33 (0-40) U/L Alkaline Phosphatase 84 (39-117) U/L Troponin I High Sens 13.3 (<3.5-35.0) ng/L Total Protein 7.7 (6.5-8.0) g/dL Albumin 4.5 (3.5-5.0) g/dL Lipase 34 (8-78) U/L Urine Color Urine Appearance Urine pH (5.0-9.0) Ur Specific [place] (1.005-1.025) Urine Protein (Neg-Trace) mg/dL Urine Glucose (UA) (Negative) mg/dL Urine Ketones (Negative) mg/dL Urine Blood (Negative) Urine Nitrite (Negative) Ur Leukocyte Esterase (Negative) Urine RBC (0-2) /HPF Urine WBC (0-5) /HPF Ur Squamous Epith Cells (0-2) /HPF Urine Bacteria (None Seen) Hyaline Casts (0-2) /LPF Urine Opiates Screen (Not Detect) Urine Fentanyl Screen (Not Detect) Ur Barbiturates Screen (Not Detect) Ur Phencyclidine Scrn (Not Detect) Ur Amphetamines Screen (Not Detect) U Benzodiazepines Scrn (Not Detect) Urine Cocaine Screen (Not Detect) U Marijuana (THC) Screen (Not Detect) 12/31/22 12/31/22 Range/Units 07:09 07:09 WBC (4.8-10.8) X10*3/uL RBC (4.60-5.80) X10*6/uL Hgb (14.0-18.0) g/dl Hct (42.0-52.0) % MCV (80.0-98.0) fL MCH (27.0-33.0) pg MCHC (31.0-36.0) g/dl RDW (11.0-16.0) % Plt Count (160-400) X10*3/uL MPV (9.4-12.4) fL Immature Gran % (Auto) (0.0-0.4) % Neut % (Auto) (45-73) % Lymph % (Auto) (20-40) % [place] % (Auto) (2-11) % Eos % (Auto) (0-4) % Baso % (Auto) (0-2) % Lymph # (Auto) (1.2-4.9) X10*3/uL [place] # (Auto) (0.1-1.2) X10*3/uL Eos # (Auto) (0.0-0.4) X10*3/uL Baso # (Auto) (0.0-0.2) X10*3/uL Abs Immat Gran (auto) (0.00-0.03) X10*3/uL Absolute Neuts (auto) (2.0-8.3) x10*3/uL Absolute Nucleated RBC (0.0-0.012) X10*3/uL Nucleated RBC % (auto) (0.0-0.2) /100WBC Sodium (135-145) mmol/L Potassium (3.3-5.1) mmol/L Chloride (96-108) mmol/L Carbon Dioxide (22-29) mmol/L Anion Gap (12-20) BUN (9-16) mg/dL Creatinine (0.5-1.4) mg/dL Estim Creat Clear Calc Estimated GFR Random Glucose (60-115) mg/dL Calcium (8.4-10.2) mg/dL Total Bilirubin (0.0-1.0) mg/dL Direct Bilirubin (0.0-0.5) mg/dL AST (5-37) U/L ALT (0-40) U/L Alkaline Phosphatase (39-117) U/L Troponin I High Sens (<3.5-35.0) ng/L Total Protein (6.5-8.0) g/dL Albumin (3.5-5.0) g/dL Lipase (8-78) U/L Urine Color Yellow Urine Appearance Clear Urine pH 6.0 (5.0-9.0) Ur Specific [place] 1.025 (1.005-1.025) Urine Protein Negative (Neg-Trace) mg/dL Urine Glucose (UA) >=1000 H (Negative) mg/dL Urine Ketones Negative (Negative) mg/dL Urine Blood Negative (Negative) Urine Nitrite Negative (Negative) Ur Leukocyte Esterase Negative (Negative) Urine RBC 0-2 (0-2) /HPF Urine WBC 0-5 (0-5) /HPF Ur Squamous Epith Cells 0-2 (0-2) /HPF Urine Bacteria None Seen (None Seen) Hyaline Casts 0-2 (0-2) /LPF Urine Opiates Screen Not Detected (Not Detect) Urine Fentanyl Screen Not Detected (Not Detect) Ur Barbiturates Screen Not Detected (Not Detect) Ur Phencyclidine Scrn Not Detected (Not Detect) Ur Amphetamines Screen Not Detected (Not Detect) U Benzodiazepines Scrn Not Detected (Not Detect) Urine Cocaine Screen POSITIVE H (Not Detect) U Marijuana (THC) Screen Not Detected (Not Detect) Independent Interpretation I performed an independent interpretation of an: EKG and Plain X-Ray (normal ) Interpretation: Rate: 95 Rhythm: NSR [place]: normal Normal P waves. Normal NATALIE. Normal QRS complex. ST T wave : normal no KARSON qTC:normal prior studies: no acute ischemia The study has been interpreted contemporaneously by me. EKG #2 Rate: 76 Rhythm: NSR with 1st degree AVB [place]: normal Normal P waves. Normal NATALIE. Normal QRS complex. ST T wave : no KARSON qTC: normal prior studies: no acute ischemia The study has been interpreted contemporaneously by me. . Radiology Impression Discussion of test interpretation with radiology: I have reviewed the radiologist's reading. External Record Review External record reviewed: Inpatient record Tests considered The following testing was considered but not selected: CT scan just had normal CT scan and US on 12/17 for same symptoms and today's labs and VS reassuring Prescription Management I considered prescription management with: Other (zofran) Critical Care Time Critical Care Time Critical Care Time: Yes Total Critical Care Time: 31 Attestation: IV morphine for pain, reassessments, IVF I attest to this time spent taking care of the patient Discharge Plan Discharge Clinical Impression: Cocaine use Nausea & vomiting Qualifiers: Vomiting type: unspecified Qualified Code(s): R11.2 - Nausea with vomiting, unspecified Patient Disposition: Home, Self-Care Instructions: Cocaine Abuse (ED), Acute Nausea and Vomiting (ED) Additional Instructions: return for worsening pain, fevers, increasing pain, unable to have bowel m ovement or pass gas, inability to eat or drink. clear liquids then slowly advance your diet over 48 hours. please stop using cocaine or marijuana with cocaine you could have a stroke or heart attack Prescriptions: New ondansetron 4 mg tablet,disintegrating 4 mg PO Q8H PRN (Reason: nausea and vomiting) Qty: 20 0RF No Action lisinopril 5 mg Tablet 5 mg PO DAILY 30 Days Qty: 30 0RF Protocol: Hold for SBP< HOLD for SBP < : 90 atorvastatin 40 mg tablet 40 mg PO DAILY pantoprazole 40 mg tablet,delayed release (DR/EC) 40 mg PO DAILY metoprolol succinate 25 mg tablet extended release 24 hr 25 mg PO DAILY Protocol: Hold for SBP/HR < HOLD for SBP < : 90 HOLD for HR < : 60 fenofibrate 54 mg tablet 54 mg PO DAILY sertraline 100 mg Tablet 100 mg PO DAILY quetiapine 100 mg Tablet 100 mg PO BEDTIME metformin 1,000 mg Tablet 1,000 mg PO BID quetiapine 50 mg Tablet 50 mg PO DAILY buprenorphine-naloxone 8-2 mg Film 1 film BUCCAL DAILY
[2022-12-31 07:18] LABS: Appearance Urine Clear; Color Urine Yellow; Glucose Urine UA >=1000 mg/dL (Negative); Leukocyte Esterase Urine Negative (Negative); Nitrite Urine Negative (Negative); Specific Gravity - Urine 1.025 (1.005-1.025); UMIC TRIGGER UACC YES; Urine Blood Negative (Negative); Urine Ketones Negative (Negative); Urine Protein Negative (Neg-Trace)
[2022-12-31 07:27] LABS: Bacteria Urine None Seen (None Seen); Hyaline Casts Urine 0-2 /LPF (0-2); RBC Urine 0-2 /HPF (0-2); Squamous Epithelial Cell Urine 0-2 /HPF (0-2); WBC Urine 0-5 /HPF (0-5)
[2022-12-31] MEDS: Morphine Sulfate 4 MG/ML CARTRIDGE IVPUSH (07:38)
[2022-12-31] MEDS: 0.9 % Sodium Chloride 500 ML IV (07:38)
[2022-12-31 07:41] VITALS: BP 172/79; PULSE 68; RESP 16; TEMP 36.9; O2SAT 96
--- NOTE | 2022-12-31 07:42 | PC.NURSE ---
patient a&ox3, new iv inserted as last one had dislodged, pt medicated per order, ivf started per order, pt dryheaving at time of assessment c/o abd pain, tender upon palp, + bs in all quadrants, pt states last bm was a few days ago- formed and he states was black in color- pt states that his bm is normally not this color- he denies seeing blood in stool, night monitor intact nsr, vss, call billingsley within reach, will continue to monitor
--- NOTE | 2022-12-31 07:45 | ECG_ITS ---
Test Reason : CHEST PAIN Blood Pressure : / mmHG Vent. Rate : 095 BPM Atrial Rate : 095 BPM P-R Int : 182 ms QRS Dur : 090 ms QT Int : 350 ms P-R-T Axes : 032 024 059 degrees QTc Int : 439 ms Normal sinus rhythm Normal ECG When compared with ECG of 17-DEC-2022 07:41, [place] interval has decreased Referred By: Maricruz Mosqueda Electronically Signed By:MAL DIXON
[2022-12-31 08:00] LABS: Troponin-I High Sensitivity 13.3 ng/L (<3.5-35.0)
[2022-12-31] MEDS: Metoclopramide HCl 10 MG/2 ML VIAL IVPUSH (08:21)
[2022-12-31] MEDS: diphenhydrAMINE HCL 50 MG/ML VIAL 25 MG IVPUSH (08:21)
--- NOTE | 2022-12-31 08:23 | PC.NURSE ---
medication administered per provider order.
[2022-12-31 08:49] LABS: Amphetamine Screen Urine Not Detected (Not Detect); Barbiturates, Urine Not Detected (Not Detect); Benzodiazepines Screen Urine Not Detected (Not Detect); Cannabinoid Screen Urine Not Detected (Not Detect); Cocaine Screen Urine POSITIVE (Not Detect); Fentanyl, urine Not Detected (Not Detect); Opiate Screen Urine Not Detected (Not Detect); Phencyclidine Screen Urine Not Detected (Not Detect)
--- NOTE | 2022-12-31 10:16 | PC.NURSE ---
pt is wheelchair at baseline, will need to discharge via cabulance to home, guidance secretary notified
--- NOTE | 2022-12-31 10:55 | PC.NURSE ---
pt still awaiting to be discharged. unaware on what time pt will be leaving facility. call billingsley placed within reach.
[2022-12-31 11:23] VITALS: BP 175/83; PULSE 73; RESP 16; O2SAT 96
--- NOTE | 2022-12-31 11:24 | PC.NURSE ---
pt resting comfortably in no apparent distress. vss and up to date. awaiting ride to leave facility. call billingsley placed within reach.
== END 2022-12-31 12:06 | disposition home or self-care (01) ==
PROVIDERS: Emergency Provider Emergency Medicine
DX: F14.20 Cocaine dependence, uncomplicated (principal); R11.2 Nausea with vomiting, unspecified; E11.9 Type 2 diabetes mellitus without complications; I10 Essential (primary) hypertension; F19.10 Other psychoactive substance abuse, uncomplicated; F17.210 Nicotine dependence, cigarettes, uncomplicated; Z79.899 Other long term (current) drug therapy
CPT/HCPCS: 36415; 71045; 80048; 80076; 80307; 81001; 83690; 84484; 85025; 93005; 96361; 96374; 96375; 99284; 99285; J1200; J2270; J2405; J2765

== ENCOUNTER 2023-07-31 11:12 | Inpatient (IN) | payer OTHER, MEDICAID, SELFPAY ==
--- NOTE | ~2023-07-31 | XR_ITS ---
EXAMINATION: XR CHEST CLINICAL INFORMATION: Wheezing. COMPARISON: Chest radiograph 12/31/2022. TECHNIQUE: 2 views of the chest were obtained. FINDINGS: Stable prominence of the cardiomediastinal silhouette. Unchanged asymmetric volume loss of the right lung with overlying surgical clips. Stable mild blunting of the right lateral costophrenic angle that could be seen with pleural thickening or trace amount of pleural fluid. Stable mild diffuse interstitial prominence. No pneumothorax. No acute issues findings. XR/XR chest 2V IMPRESSION: No significant change compared to 12/31/2022.
--- NOTE | 2023-07-31 11:35 | ED.GENADULT ---
HPI - General Adult General Chief complaint: ETOH/Substance Use Stated complaint: SI WITH PLAN Time Seen by Provider: 07/31/23 11:42 Source: patient and EMS Mode of arrival: EMS Limitations: other (poor historian ) History of Present Illness HPI narrative: 63 -year-old male past medical history significant for hypertension, cocaine use disorder, cerebellar infarction, major depression, polysubstance abuse, diabetes presenting to the emergency department via EMS for suicidal ideation w/ plan to stab himself in the chest and eye. He tells me that this has happened to him before, and he has required inpatient hospital admission. He reports that he is a current daily smoker, denies drugs or alcohol. Patient denies visual, auditory and tactile hallucinations. Denies any medical complaints at this time. Related Data Home Medications ?Medication ?Instructions ?Recorded ?Confirmed atorvastatin 40 mg tablet 40 mg PO DAILY 01/01/22 12/17/22 fenofibrate 54 mg tablet 54 mg PO DAILY 01/01/22 12/17/22 metoprolol succinate 25 mg 25 mg PO DAILY 01/01/22 12/17/22 tablet,extended release 24 hr pantoprazole 40 mg tablet,delayed 40 mg PO DAILY 01/01/22 12/17/22 release buprenorphine 8 mg-naloxone 2 mg 1 film buccal DAILY 12/17/22 12/17/22 sublingual film metformin 1,000 mg tablet 1,000 mg PO BID 12/17/22 12/17/22 quetiapine 100 mg tablet 100 mg PO BEDTIME 12/17/22 12/17/22 quetiapine 50 mg tablet 50 mg PO DAILY 12/17/22 12/17/22 sertraline 100 mg tablet 100 mg PO DAILY 12/17/22 12/17/22 Previous Rx's ?Medication ?Instructions ?Recorded lisinopril 5 mg tablet 5 mg PO DAILY 30 days #30 tabs 11/08/21 ondansetron 4 mg disintegrating 4 mg PO Q8H PRN nausea and 12/31/22 tablet vomiting #20 tabs Allergies Allergy/AdvReac Type Severity Reaction Status Date / Time No Known Allergies Allergy Verified 07/31/23 11:41 Review of Systems Review of Systems: Yes all other systems are reviewed and are negative PMFSH Past Medical History Attestation statement: The following information was validated with the patient. Source: old records reviewed and nursing notes reviewed Medical History NIDDY (non-insulin dependent diabetes mellitus in young) Diabetic gastroparesis Cervical radiculopathy Cerebral infarction Multifactorial gait disorder Acute blood loss anemia Opioid use disorder, mild, in sustained remission Cocaine use disorder, moderate, dependence MDD (major depressive disorder), recurrent episode, moderate Diabetes HTN (hypertension) Social History Social History Household Members: None Housing: Apartment Housing Other:: soliders on Unable to assess alcohol history related to: Unknown Alcohol intake: former Comment: On 1:1 status Patient Tobacco Use Status: Never used Tobacco Tobacco use type: Cigarette Cigarette Packs Per Day: 2 Cigarettes Per Day: 40.0 Years Smoked: 12 e-Cigarette/Vaping Use: Never Used Second Hand Smoke Exposure: No Substance Use Type: Crack/Cocaine and Marijuana Advance Directives: No Advance Directives Information Provided: No service: Yes ([employer], [employer]) Current occupational status: disabled Sexual orientation: Decline to Answer Physical Exam ED Vital Signs: Vital Signs - 24 hr 07/31/23 11:38 Temperature 98.6 F Pulse Rate 85 Respiratory Rate 20 Blood Pressure 131/79 Pulse Oximetry 95 Oxygen Delivery Method Room Air BMI result Body Mass Index 29.9 Course Reevaluation(s) Reevaluation #1: CBC no acute findings requiring intervention. Patient noted to have a baseline microcytic anemia. Chemistry unremarkable. Slightly elevated BUN likely secondary to poor p.o. intake/dehydration. Salicylates, acetaminophen, ethanol negative. At this time patient to be placed into observation to allow more time to be evaluated by behavioral health team. At time observation started patient common cooperative no acute distress will continue to monitor Time: 13:04 Medical Decision Making Medical Decision Making [facility] Narrative: 1139 63-year-old male presents with suicidal ideation x1 day Physical examination benign hx and pe concerning for polysubstance abuse, with depression versus anxiety and suicidal ideation. No homicidal ideation. Unlikely metabolic derangements. Plan at this time is medical clearance and evaluation by the behavioral health team. Differential Diagnosis Differential Diagnoses: The differential diagnosis associated with the presentation includes hx and pe concerning for polysubstance abuse, with depression versus anxiety and suicidal ideation. No homicidal ideation. Unlikely metabolic derangements. Admission/Observation Consideration of admission/observation: Escalation of care including admission/observation considered No indication Lab Data MDM Lab Attestation statement: I reviewed the patient's lab results. 07/31/23 12:07 07/31/23 12:07 Labs: Lab Results 07/31/23 Range/Units 12:07 WBC 6.0 (4.8-10.8) X10*3/uL RBC 5.20 (4.60-5.80) X10*6/uL Hgb 12.5 L (14.0-18.0) g/dl Hct 38.1 L (42.0-52.0) % MCV 73.3 L (80.0-98.0) fL MCH 24.0 L (27.0-33.0) pg MCHC 32.8 (31.0-36.0) g/dl RDW 15.6 (11.0-16.0) % Plt Count 212 (160-400) X10*3/uL MPV 9.8 (9.4-12.4) fL Immature Gran % (Auto) 0.5 H (0.0-0.4) % Neut % (Auto) 73.6 H (45-73) % Lymph % (Auto) 16.9 L (20-40) % Elbert % (Auto) 7.8 (2-11) % Eos % (Auto) 0.7 (0-4) % Baso % (Auto) 0.5 (0-2) % Lymph # (Auto) 1.0 L (1.2-4.9) X10*3/uL Elbert # (Auto) 0.5 (0.1-1.2) X10*3/uL Eos # (Auto) 0.0 (0.0-0.4) X10*3/uL Baso # (Auto) 0.0 (0.0-0.2) X10*3/uL Abs Immat Gran (auto) 0.03 (0.00-0.03) X10*3/uL Absolute Neuts (auto) 4.4 (2.0-8.3) x10*3/uL Absolute Nucleated RBC 0.000 (0.0-0.012) X10*3/uL Nucleated RBC % (auto) 0.0 (0.0-0.2) /100WBC Sodium 135 (135-145) mmol/L Potassium 4.3 (3.3-5.1) mmol/L Chloride 104 (96-108) mmol/L Carbon Dioxide 25 (22-29) mmol/L Anion Gap 10 L (12-20) BUN 17 H (9-16) mg/dL Creatinine 0.84 (0.5-1.4) mg/dL Estim Creat Clear Calc 93.8 Estimated GFR > 60 Random Glucose 278 H (60-115) mg/dL Calcium 9.4 (8.4-10.2) mg/dL Magnesium 1.6 (1.6-2.6) mg/dL Total Bilirubin 0.4 (0.0-1.0) mg/dL AST 25 (5-37) U/L ALT 27 (0-40) U/L Alkaline Phosphatase 59 (39-117) U/L Total Protein 6.9 (6.5-8.0) g/dL Albumin 4.2 (3.5-5.0) g/dL Salicylates < 5.0 L (15-30) mg/dL Acetaminophen < 3 (<30) mcg/mL Ethyl Alcohol < 10 mg/dL External Record Review External record reviewed: Inpatient record, Office record, Outpatient record, Prior outpatient labs, Prior outpatient radiology, Primary care record and Outside ED record Critical Care Time Critical Care Time Critical Care Time: No Discharge Plan Discharge Clinical Impression: Depression Prescriptions: No Action lisinopril 5 mg Tablet 5 mg PO DAILY 30 Days Qty: 30 0RF Protocol: Hold for SBP< HOLD for SBP < : 90 atorvastatin 40 mg tablet 40 mg PO DAILY pantoprazole 40 mg tablet,delayed release (DR/EC) 40 mg PO DAILY metoprolol succinate 25 mg tablet extended release 24 hr 25 mg PO DAILY Protocol: Hold for SBP/HR < HOLD for SBP < : 90 HOLD for HR < : 60 fenofibrate 54 mg tablet 54 mg PO DAILY sertraline 100 mg Tablet 100 mg PO DAILY quetiapine 100 mg Tablet 100 mg PO BEDTIME metformin 1,000 mg Tablet 1,000 mg PO BID quetiapine 50 mg Tablet 50 mg PO DAILY buprenorphine-naloxone 8-2 mg Film 1 film BUCCAL DAILY ondansetron 4 mg tablet,disintegrating 4 mg PO Q8H PRN (Reason: nausea and vomiting) Qty: 20 0RF Print Language: Surinamese
[2023-07-31 11:38] VITALS: BP 131/79; BP 156/88; PULSE 85; PULSE 86; RESP 20; TEMP 37; O2SAT 95; O2SAT 96; BMI 29.9
--- OUTSIDE RECORDS SUMMARY | 2023-07-31 11:53 | XMS_ITS | Continuity of Care Document ---
Author Organization [facility] ter Address [address] [place] [id number]- Care Team Providers Care Casting Room Helper Name Role Phone Glenn AQUINO, Danielle Primary Care Physician Encounter [facility] [place] Date(s): 08/07/20 - 09/06/[address] [address]- Attending Physician: Not on Staff, Attending MD Admitting Physician: Not on Staff, Admitting MD Referring Physician: Not on Staff, Referring MD Allergies, Adverse Reactions, Alerts No Known Medication Allergies Substance Reaction Severity Status Other Environmental Allergy 1 Active 1Wool Medications atorvastatin 40 mg oral tablet 1 tablet = 40 mg, By Mouth, Daily, # 90 tablet, 1 Refills, Maintenance, 05/24/20 10:30:00 EST, Tablet, [id number], 172, cm, 05/17/20 13:12:00 EST, Height Start Date: 05/24/20 Stop Date: 11/20/20 Status: Ordered Combivent Respimat 20 mcg-100 mcg/inh inhalation aerosol 1 puffs, Inhalation, 4 times a day, PRN Wheezing/Shortness of Breath, # 1 each, 3 Refills, Maintenance, 06/13/20 15:39:00 EST, Aerosol, [id number], Partial fill upon patient request if the prescription is for a schedule II opioid drug., 1 puff... Start Date: 06/13/20 Status: Ordered duloxetine 30 mg oral enteric coated capsule 1 capsule, By Mouth, Daily, # 90 capsule, 1 Refills, Maintenance, 08/01/20 8:50:00 EDT, [id number], 172, cm, 07/11/20 15:26:00 EDT, Height Start Date: 08/01/20 Stop Date: 01/28/21 Status: Ordered gabapentin 300 mg oral capsule 600 mg, 2, capsule, By Mouth, 3 times a day, # 180 capsule, Refills 1, Tot. Refills 1, Maintenance,07/11/20 15:14:00 EDT, Route to Pharmacy Electronically, [facility]/pharmacy #[id number], 172, cm, 07/11/20 14:49:00 EDT, Height Start Date: 07/11/20 Stop Date: 09/09/20 Status: Ordered lisinopril 20 mg oral tablet 20 mg, 1, tablet, By Mouth, Daily, # 90 tablet, Refills 1, Tot. Refills 1, Maintenance, 07/11/20 15:12:00 EDT, Route to Pharmacy Electronically, [facility]/pharmacy #[id number], Partial fill upon patient request if the prescription is for a schedule II opioid drug... Start Date: 07/11/20 Stop Date: 01/07/21 Status: Ordered metFORMIN 750 mg oral tablet, extended release 1 tablet = 750 mg, By Mouth, 2 times a day, with food, # 180 tablet, 1 Refills, Maintenance, 07/12/20 7:44:00 EDT, ER Tablet, [facility]/pharmacy #[id number], Partial fill upon patient request if the prescriptionis for a schedule II opioid drug., 172, cm, ... Start Date: 07/12/20 Stop Date: 01/08/21 Status: Ordered metoprolol 25 mg oral tablet, extended release 25 mg, 1, tablet, By Mouth, Daily, # 90 tablet, Refills 1, Tot. Refills 1, Maintenance, 07/16/20 12:36:00 EDT, Route to Pharmacy Electronically, [facility]/pharmacy #[id number], 172, cm, 07/11/20 15:26:00 EDT, Height Start Date: 07/16/20 Stop Date: 01/12/21 Status: Ordered pantoprazole 40 mg oral delayed release tablet 1 tablet = 40 mg, By Mouth, Daily, # 90 tablet, 0 Refills, Maintenance, 04/09/20 15:38:00 EST, EC Tablet, 172, cm, 04/09/20 13:00:00 EST, Height Start Date: 04/09/20 Stop Date: 07/08/20 Status: Ordered QUEtiapine 100 mg oral tablet 1, tablet, By Mouth, Daily, # 90 tablet, Refills 1, Tot. Refills 1, Maintenance, 07/16/20 12:36:00 EDT, Route to Pharmacy Electronically, [facility]/pharmacy #[id number], 172, cm, 07/11/20 15:26:00 EDT, Height Start Date: 07/16/20 Stop Date: 01/12/21 Status: Ordered Suboxone 2 mg-0.5 mg sublingual film 1 film, Sublingual, Daily, 0 Refills, Maintenance, 05/17/20 13:13:00 EST, Partial fill upon patientrequest if the prescription is for a schedule II opioid drug. Start Date: 05/17/20 Status: Ordered Wheelchair See Instructions, # 1 each, Maintenance, Electric wheelchair DX: M17.0 (not knee replacement candidate), 05/17/20 14:07:00 EST, Supply Start Date: 05/17/20 Status: Ordered Problem List Condition Effective Dates Status Health Status Inform ant Abdominal aortic ectasia(Confirmed) Active Calcification of abdominal aorta(Confirmed) Active Chronic low back pain(Confirmed) Active Chronic obstructive pulmonar y disease(Confirmed) Active Chronic pain syndrome(Confirmed) Active Compression fracture of spine(Confirmed) Active Substance abuse in remission(Confirmed) Active Gastritis(Confirmed) Active History of lung cancer(Confirmed) Active Homelessness(Confirmed) Active Hyperlipidemia(Confirmed) Active HTN (hypertension)(Confirmed) Active Opiate dependence(Confirmed) Active OA (osteoarthritis)(Confirmed) Active Major depression, recurrent(Confirmed) Active Schizoaffective disorder(Confirmed) Active Smoking(Confirmed) Active Diabetes mellitus, type II(Confirmed) Active Duodenal ulcer(Confirmed) Active Social History Social History Type Response Smoking Status 10 or more cigarette s (1/2 pack or more)/day in last 30 days; Other: about 2.5 ppd; entered on: 02/28/19 Sex
--- OUTSIDE RECORDS SUMMARY | 2023-07-31 11:53 | XMS_ITS | Continuity of Care Document ---
Author Organization [facility] Address [address] [place] [address]- Care Team Providers Care Cone Examiner Name Role Phone Glenn AQUINO, Danielle Primary Care Physician [phone] [place]counter [facility] [place] Date(s): 07/11/20 - 07/18/20 [facility] [address] [place] [address]- Encounter Diagnosis Diabetes mellitus, type II(Discharge Diagnosis) - 07/11/20 HTN (hypertension)(Discharge Diagnosis) - 07/11/20 Calcification of abdominal aorta(Discharge Diagnosis) - 07/11/20 Major depression, recurrent(Discharge Diagnosis) - 07/11/20 History of lung cancer(Discharge Diagnosis) - 07/11/20 Chronic low back pain(Discharge Diagnosis) - 07/11/20 Chronic pain syndrome(Discharge Diagnosis) - 07/11/20 Schizoaffective disorder(Discharge Diagnosis) - 07/11/20 Smoking(Discharge Diagnosis) - 07/11/20 Opiate dependence(Discharge Diagnosis) - 07/11/20 Attending Physician: Danielle Elizabeth NP Allergies, Adverse Reactions, Alerts No Known Medication [...] capsule, By Mouth, Daily, # 90 capsule, 0 Refills, Maintenance, 04/09/20 15:40:00 EST, [id number], 172, cm, 04/09/20 13:00:00 EST, Height Start Date: 04/09/20 Stop Date: 07/08/20 Status: Ordered gabapentin 300 mg oral capsule 600 mg, 2, capsule, By Mouth, 3 times a day, # 180 capsule, Refills 1, Tot. Refills 1, Maintenance,07/11/20 15:14:00 EDT, Route to Pharmacy Electronically, [facility]/pharmacy #[id number], 172, cm, 07/11/20 14:49:00 EDT, Height Start Date: 07/11/20 Stop Date: 09/09/20 Status: Ordered lisinopril 20 mg oral tablet 20 mg, 1, tablet, By Mouth, Daily, # 90 tablet, Refills 1, Tot. Refills 1, Maintenance, 07/11/20 15:12:00 EDT, Route to Pharmacy Electronically, [facility]/pharmacy #[id number], Partial fill upon patient request if the prescription is for a schedule II opioid drug... Start Date: 07/11/20 Stop Date: 01/07/21 Status: Ordered metFORMIN 750 mg oral tablet, extended release 1 tablet = 750 mg, By Mouth, 2 times a day, with food, # 180 tablet, 1 Refills, Maintenance, 07/12/20 7:44:00 EDT, ER Tablet, [facility]/pharmacy #[id number], Partial fill upon patient request if the prescriptionis for a schedule II opioid drug., 172, cm, ... Start Date: 07/12/20 Stop Date: 01/08/21 Status: Ordered metoprolol 25 mg oral tablet, extended release 25 mg, 1, tablet, By Mouth, Daily, # 90 tablet, Refills 1, Tot. Refills 1, Maintenance, 07/16/20 12:36:00 EDT, Route to Pharmacy Electronically, [facility]/pharmacy #[id number], 172, cm, 07/11/20 [...] 07/16/20 12:36:00 EDT, Route to Pharmacy Electronically, [facility]/pharmacy #[id number], 172, cm, 07/11/20 [...] Effective Dates Status Health Status Inform ant Calcification of abdominal aorta(Confirmed) Active Chronic low back pain(Confirmed) Active Chronic pain syndrome(Confirmed) Active Compression fracture of spine(Confirmed) Active Substance abuse in remission(Confirmed) Active Gastritis(Confirmed) Active History of lung cancer(Confirmed) Active Homelessness(Confirmed) Active Hyperlipidemia(Confirmed) Active HTN (hypertension)(Confirmed) Active Opiate dependence(Confirmed) Active OA (osteoarthritis)(Confirmed) Active Major depression, recurrent(Confirmed) Active Schizoaffective disorder(Confirmed) Active Smoking(Confirmed) Active Diabetes mellitus, type II(Confirmed) Active Duodenal ulcer(Confirmed) Active Diagnosis Diagnosis Type Effective Dates Health Status Clinical Service Informant Diabetes mellitus, type II Discharge Diagnosis 07/11/20 HTN (hypertension) Discharge Diagnosis 07/11/20 Calcification of abdominal aorta Discharge Diagnosis 07/11/20 Chronic low back pain Discharge Diagnosis 07/11/20 Chronic pain syndrome Discharge Diagnosis 07/11/20 History of lung cancer Discharge Diagnosis 07/11/20 Opiate dependence Discharge Diagnosis 07/11/20 Smoking Discharge Diagnosis 07/11/20 Schizoaffective disorder Discharge Diagnosis 07/11/20 Major depression, recurrent Discharge Diagnosis 07/11/20 Vital Signs Most recent to oldest [Reference Range]: 1 2 Height 172 cm (07/11/20 3:26 PM) 172 cm (07/11/20 2:49 PM) Oxygen Saturation [94-100 %] 96 % (07/11/20 2:49 PM) Pulse Rate [55-90 bpm] 96 bpm *H* (07/11/20 2:49 PM) Blood Pressure [90-138/55-84 mm Hg] 144/ 83mm Hg *H* (07/11/20 3:26 PM) 147/96mm Hg *H* (07/11/20 2:49 PM) Respiratory Rate [16-30 br/min] 18 br/mi n (07/11/20 2:49 PM) Mode of Delivery (Oxygen) Room air (07/11/20 2:49 PM) Blood pressure sites Arm, left (07/11/20 3:26 PM) Arm, left (07/11/20 2:49 PM) Social History Social History Type Response Smoking Status 10 or more cigarette s (1/2 pack or more)/day in last 30 days; Other: about 2.5 ppd; entered on: 02/28/19 Sex
--- OUTSIDE RECORDS SUMMARY | 2023-07-31 11:53 | XMS_ITS | Continuity of Care Document ---
Author Organization [facility] Address [address] [place] [address]- Care Team Providers Care Bar Waiter/Waitress Name Role Phone Imani AQUINO, Beatrice Carbajal Primary Care Physician Encounter [facility] [place] Date(s): 05/09/21 - 06/08/21 [facility] [address] [place] [address]- Allergies, Adverse Reactions, Alerts No Known Medication Allergies Substance Reaction Severity Status Other Environmental Allergy 1 Active 1Wool Medications atorvastatin 40 mg oral tablet 1 tablet = 40 mg, By Mouth, Daily, # 90 tablet, 1 Refills, Maintenance, 11/20/20 10:30:00 EDT, Tablet, [facility] #[id number], 172, cm, 08/01/20 13:59:00 EDT, Height Start Date: 11/20/20 Stop Date: 05/19/21 Status: Ordered Combivent Respimat 20 mcg-100 mcg/inh inhalation aerosol 1 puffs, Inhalation, 4 times a day, PRN Wheezing/Shortness of Breath, # 1 each, 3 Refills, Maintenance, 06/13/20 15:39:00 EST, Aerosol, [facility]/pharmacy #[id number], Partial fill upon patient request if the prescription is for a schedule II opioid drug., 1 puff... Start Date: 06/13/20 Status: Ordered duloxetine 30 mg oral enteric coated capsule 1 capsule, By Mouth, Daily, # 90 capsule, 0 Refills, Maintenance, 02/07/21 16:12:00 EDT, [facility] #[id number], 172, cm, 08/01/20 13:59:00 EDT, Height Start Date: 02/07/21 Stop Date: 05/08/21 Status: Ordered fenofibrate 54 mg oral tablet 1 tablet = 54 mg, By Mouth, Daily, # 30 tablet, 0 Refills, Maintenance, 05/10/21 11:35:00 EST, [facility] #[id number], Partial fill upon patient request if the prescription is for a schedule II opioid drug., 175, cm, 02/14/21 20:23:00 EDT, Height... Start Date: 05/10/21 Status: Ordered FREESTYLE FREEDOM LITE KIT USE DIRECTED Start Date: 04/01/21 Status: Ordered Freestyle Lite Lancets See Instructions, # 200 each, Refills 0, Tot. Refills 0, Maintenance, use as directed for Type 2 Diabetes Mellitus test 2x daily, 04/01/21 14:12:00 EST, Supply, 175, cm, 02/14/21 20:23:00 EDT, Height, 77.5, kg, 02/14/21 20:23:00 EDT, Dry Weight Start Date: 04/01/21 Stop Date: 05/01/21 Status: Ordered Freestyle Lite Test Strips See Instructions, # 200 each, Refills 0, Tot. Refills 0, Maintenance, use as directed for Type 2 Diabetes Mellitus to test 2x daily, 04/01/21 14:12:00 EST, Supply, 175, cm, 02/14/21 20:23:00 EDT, Height, 77.5, kg, 02/14/21 20:23:00 EDT, Dry Weight Start Date: 04/01/21 Stop Date: 05/01/21 Status: Ordered gabapentin 300 mg oral capsule 600 mg, 2, capsule, By Mouth, 3 times a day, PLEASE CALL OFFICE FOR RESCHEDULE APPT., # 180 capsule, Refills 0, Tot. Refills 0, Maintenance, 05/29/21 13:15:00 EST, Route to Pharmacy Electronically, [facility] #[id number], 175, cm, 02/14/21 20:23:... Start Date: 05/29/21 Stop Date: 06/28/21 Status: Ordered lisinopril 20 mg oral tablet 1, tablet, By Mouth, Daily, # 30 tablet, Refills 5, Route to Pharmacy Electronically, [facility] #[id number], 175, cm, 02/14/21 20:23:00 EDT, Height, 77.5, kg, 02/14/21 20:23:00 EDT, Dry Weight Start Date: 02/23/21 Status: Ordered MetFORMIN (Eqv-Glucophage XR) 500 mg oral tablet, extended release 2 tablet = 1,000 mg, By Mouth, 2 times a day, # 120 tablet, 3 Refills, Maintenance, 04/15/21 15:52:00 EST, [facility] #[id number], Partial fill upon patient request if the prescription is for a schedule II opioid drug., 175, cm, 02/14/21 20:23:00... Start Date: 04/15/21 Stop Date: 08/13/21 Status: Ordered metFORMIN 500 mg oral tablet, extended release 2 tablet = 1,000 mg, By Mouth, Daily, # 60 tablet, 0 Refills, Maintenance, 04/11/21 12:42:00 EST, [facility] #[id number], Partial fill upon patient request if the prescription is for a schedule II opioid drug., 175, cm, 02/14/21 20:23:00 EDT, Hei... Start Date: 04/11/21 Status: Ordered metFORMIN 750 mg oral tablet, extended release 1 tablet = 750 mg, By Mouth, 2 times a day, Call for appt SWAPNIL before next refill with food, # 60 tablet, 1 Refills, Maintenance, 02/08/21 9:48:00 EDT, ER Tablet, [facility] #[id number], Partialfill upon patient request if the prescription is... Start Date: 02/08/21 Stop Date: 08/07/21 Status: Ordered metoprolol 25 mg oral tablet, extended release 25 mg, 1, tablet, By Mouth, Daily, # 90 tablet, Refills 0, Tot. Refills 0, Maintenance, 05/10/21 11:34:00 EST, Route to Pharmacy Electronically, [facility] #[id number], 175, cm, 02/14/21 20:23:00 EDT, Height, 77.5, kg, 02/14/21 20:23:00 EDT, Dry... Start Date: 05/10/21 Status: Ordered metoprolol 25 mg oral tablet, extended release 25 mg, 1, tablet, By Mouth, Daily, # 90 tablet, Refills 1, Tot. Refills 1, Maintenance, 10/19/20 15:29:00 EDT, Route to Pharmacy Electronically, [facility] #[id number], 172, cm, 08/01/20 13:59:00 EDT, Height Start Date: 10/19/20 Stop Date: 04/17/21 Status: Ordered omeprazole 40 mg oral enteric coated capsule 1 capsule = 40 mg, By Mouth, Daily, # 90 capsule, 0 Refills, Maintenance, 04/24/21 14:31:00 EST, ECCapsule, [facility] #[id number], Partial fill upon patient request if the prescription is for a schedule II opioid drug., 175, cm, 02/14/21 20:23:... Start Date: 04/24/21 Status: Ordered QUEtiapine 100 mg oral tablet 1, tablet, By Mouth, Daily, bloodwork and appt needed, # 30 tablet, Refills 1, Tot. Refills 1, Maintenance, 02/08/21 9:46:00 EDT, Route to Pharmacy Electronically, [facility] #[id number], 172, cm, 08/01/20 13:59:00 EDT, Height Start Date: 02/08/21 Status: Ordered QUEtiapine 100 mg oral tablet See Instructions, TAKE 1 TABLET BY MOUTH DAILY BLOODWORK AND APPOINTMENT NEEDED, # 30 tablet, Refills 0, Tot. Refills 0, 05/29/21 13:15:00 EST, Instructions Replace Required Details, Route to Pharmacy Electronically, [facility] #[id number], 175,... Start Date: 05/29/21 Status: Ordered Suboxone 2 mg-0.5 mg sublingual film 1 film, Sublingual, Daily, 0 Refills, Maintenance, 05/17/20 13:13:00 EST, Partial fill upon patientrequest if the prescription is for a schedule II opioid drug. Start Date: 05/17/20 Status: Ordered sucralfate 1 gm oral tablet 1 Gm, 1, tablet, By Mouth, 4 times a day, # 120 tablet, Refills 0, Tot. Refills 0, Maintenance, 05/10/21 11:34:00 EST, Route to Pharmacy Electronically, [facility] #[id number], Partial fill uponpatient request if the prescription is for a schedu... Start Date: 05/10/21 Status: Ordered Wheelchair See Instructions, # 1 [...] Substance abuse in remission(Confirmed) Active Gastritis(Confirmed) Active GI bleed(Confirmed) Active History of lung cancer(Confirmed) Active Homelessness(Confirmed) [...]
--- OUTSIDE RECORDS SUMMARY | 2023-07-31 11:54 | XMS_ITS | Continuity of Care Document ---
Author Organization [facility] Address [address] [place] [address]- Care Team Providers Care Box Stacker Name Role Phone Glenn AQUINO, Danielle Primary Care Physician [place] [facility] [place]12/20 - 11/11/20 [facility] [address] [place] [address]- Allergies, Adverse Reactions, Alerts No Known Medication Allergies Substance Reaction Severity Status Other Environmental Allergy 1 Active 1Wool Medications atorvastatin 40 mg oral tablet 1 tablet = 40 mg, By Mouth, Daily, # 90 tablet, 1 Refills, Maintenance, 05/24/20 10:30:00 EST, Tablet, [facility]/pharmacy #[id number], 172, cm, 05/17/20 13:12:00 EST, Height Start [...] Daily, # 90 capsule, 0 Refills, Maintenance, 11/09/20 12:46:00 EDT, [facility] #[id number], 172, cm, 08/01/20 13:59:00 EDT, Height Start Date: 11/09/20 Stop Date: 02/07/21 Status: Ordered gabapentin 300 mg oral capsule 600 mg, 2, capsule, By Mouth, 3 times a day, PLEASE CALL OFFICE FOR RESCHEDULE APPT., # 180 capsule, Refills 1, Tot. Refills 1, Maintenance, 10/04/20 16:25:00 EDT, Route to Pharmacy Electronically, [facility] #[id number], 172, cm, 08/01/20 13:59:... Start Date: 10/04/20 Stop Date: 12/03/20 Status: Ordered lisinopril 20 mg oral tablet 20 mg, 1, tablet, By Mouth, Daily, # 90 tablet, Refills 0, Tot. Refills 0, Maintenance, 11/09/20 12:46:00 EDT, Route to Pharmacy Electronically, [facility] #[id number], Partial fill upon patientrequest if the prescription is for a schedule II op... Start Date: 11/09/20 Stop Date: 02/07/21 Status: Ordered metFORMIN 750 mg oral tablet, extended release 1 tablet = 750 mg, By Mouth, 2 times a day, with food, # 180 tablet, 1 Refills, Maintenance, 07/12/20 7:44:00 EDT, ER Tablet, [facility]/pharmacy #[id number], Partial fill upon patient request if the prescriptionis for a schedule II opioid drug., 172, cm, ... Start Date: 07/12/20 Stop Date: 01/08/21 Status: Ordered metoprolol 25 mg oral tablet, extended release 25 mg, 1, tablet, By Mouth, Daily, # 90 tablet, Refills 1, Tot. Refills 1, Maintenance, 10/19/20 15:29:00 EDT, Route to Pharmacy Electronically, [facility] #[id number], 172, cm, 08/01/20 13:59:00 EDT, Height Start Date: 10/19/20 Stop Date: 04/17/21 Status: Ordered pantoprazole 40 mg oral delayed release tablet 1 tablet = 40 mg, By Mouth, Daily, # 90 tablet, 1 Refills, Maintenance, 09/13/20 10:56:00 EDT, EC Tablet, 172, cm, 08/01/20 13:59:00 EDT, Height Start Date: 09/13/20 Stop Date: 03/12/21 Status: Ordered QUEtiapine 100 mg oral tablet 1, tablet, By Mouth, Daily, bloodwork and appt needed, # 90 tablet, Refills 0, Tot. Refills 0, Maintenance, 10/12/20 14:18:00 EDT, Route to Pharmacy Electronically, [facility] #[id number], 172, cm, 08/01/20 13:59:00 EDT, Height Start Date: 10/12/20 Stop Date: 01/10/21 Status: Ordered Suboxone 2 mg-0.5 mg sublingual [...]
--- OUTSIDE RECORDS SUMMARY | 2023-07-31 11:54 | XMS_ITS | Continuity of Care Document ---
Author Organization [facility] Address [address] [place] [address]- Care Team Providers Care Flat Optical Element Maker Name Role Phone Glenn AQUINO, Danielle Primary Care Physician [place] [facility] [place] 09/13/20 - 10/13/20 [facility] [address] [place] [address]- Allergies, Adverse Reactions, Alerts No Known Medication [...] 10/04/20 16:25:00 EDT, Route to Pharmacy Electronically, [facility] #[id number], 172, cm, 08/01/20 13:59:... Start Date: 10/04/20 Stop Date: 12/03/20 Status: Ordered lisinopril 20 mg oral tablet 20 mg, 1, tablet, By Mouth, Daily, # 90 tablet, Refills 1, Tot. Refills 1, Maintenance, 07/11/20 15:12:00 EDT, Route to Pharmacy Electronically, [facility]/pharmacy #[id number], Partial fill upon patient request if the prescription is for a schedule II opioid drug... Start Date: 07/11/20 Stop Date: 01/07/21 Status: Ordered metFORMIN 750 mg oral tablet, extended release 1 tablet = 750 mg, By Mouth, 2 times a day, with food, # 180 tablet, 1 Refills, Maintenance, 07/12/20 7:44:00 EDT, ER Tablet, [facility]/pharmacy #[id number], Partial fill upon patient request if the prescriptionis for a schedule II opioid drug., 172, cm, ... Start Date: 07/12/20 Stop Date: 01/08/21 Status: Ordered metoprolol 25 mg oral tablet, extended release 25 mg, 1, tablet, By Mouth, Daily, # 90 tablet, Refills 1, Tot. Refills 1, Maintenance, 07/16/20 12:36:00 EDT, Route to Pharmacy Electronically, [facility]/pharmacy #[id number], 172, cm, 07/11/20 15:26:00 EDT, Height [...] 10/12/20 14:18:00 EDT, Route to Pharmacy Electronically, [facility] #[id number], 172, cm, 08/01/20 13:59:00 EDT, Height Start [...]
--- OUTSIDE RECORDS SUMMARY | 2023-07-31 11:54 | XMS_ITS | Continuity of Care Document ---
Author Organization [facility] Address [address] [place] [address]- Care Team Providers Care Machine Room Operator Name Role Phone Glenn AQUINO, Danielle Primary Care Physician Encounter [facility] [place] Date(s): 07/04/20 - 08/03/20 [facility] [address] [place] [address]- Allergies, Adverse Reactions, Alerts No Known Medication [...] Maintenance,07/11/20 15:14:00 EDT, Route to Pharmacy Electronically, [facility]/pharmacy #[id number], 172, cm, 07/11/20 14:49:00 EDT, Height Start Date: 07/11/20 Stop Date: 09/09/20 Status: Ordered lisinopril 20 mg oral tablet 20 mg, 1, tablet, By Mouth, Daily, # 90 tablet, Refills 1, Tot. Refills 1, Maintenance, 07/11/20 15:12:00 EDT, Route to Pharmacy Electronically, [facility]/pharmacy #[id number], Partial fill upon patient request if the prescription is for a schedule II opioid drug... Start Date: 07/11/20 Stop Date: 01/07/21 Status: Ordered metFORMIN 750 mg oral tablet, extended release 1 tablet = 750 mg, By Mouth, 2 times a day, with food, # 180 tablet, 1 Refills, Maintenance, 07/12/20 7:44:00 EDT, ER Tablet, [facility]/pharmacy #[id number], Partial fill upon patient request if the prescriptionis for a schedule II opioid drug., 172, cm, ... Start Date: 07/12/20 Stop Date: 01/08/21 Status: Ordered metoprolol 25 mg oral tablet, extended release 25 mg, 1, tablet, By Mouth, Daily, # 90 tablet, Refills 1, Tot. Refills 1, Maintenance, 07/16/20 12:36:00 EDT, Route to Pharmacy Electronically, [facility]/pharmacy #[id number], 172, cm, 07/11/20 15:26:00 EDT, [...] 07/16/20 12:36:00 EDT, Route to Pharmacy Electronically, [facility]/pharmacy #[id number], 172, cm, 07/11/20 15:26:00 EDT, [...]
--- OUTSIDE RECORDS SUMMARY | 2023-07-31 11:54 | XMS_ITS | Continuity of Care Document ---
Author Organization [facility] Address [address] [place] [address]- Care Team Providers Care Tricot Knitter Name Role Phone Glenn AQUINO, Danielle Primary Care Physician [phone] [place] [facility] [place](s): 05/11/20 - 06/21/20 [facility] [address] [place] [address]- Attending Physician: Danielle Elizabeth NP Allergies, Adverse [...] 1 puff... Start Date: 06/13/20 Status: Ordered cyclobenzaprine 5 mg oral tablet 1 tablet = 5 mg, By Mouth, 2 times a day, PRN muscle spasm, for 14 days, # 28 tablet, 0 Refills, Acute 06/27/20 15:25:00 EST, 06/13/20 15:25:00 EST, Tablet, [facility]acy #[id number], Partial fill upon patient request if the prescription is for a schedule II... Start Date: 06/13/20 Stop Date: 06/27/20 Status: Ordered duloxetine 30 mg oral enteric coated capsule 1 capsule, By Mouth, Daily, # 90 capsule, 0 Refills, Maintenance, 04/09/20 15:40:00 EST, [facility]/pharmacy #[id number], 172, cm, 04/09/20 13:00:00 EST, Height Start Date: 04/09/20 Stop Date: 07/08/20 Status: Ordered gabapentin 300 mg oral capsule 1, capsule, By Mouth, 3 times a day, # 270 capsule, Refills 0, Tot. Refills 0, Maintenance, 04/09/20 15:39:00 EST, Route to Pharmacy Electronically, [facility]/pharmacy #[id number], 172, cm, 04/09/20 13:00:00 EST, Height Start Date: 04/09/20 Stop Date: 07/08/20 Status: Ordered lisinopril 10 mg oral tablet 10 mg, 1, tablet, By Mouth, Daily, # 90 tablet, Refills 3, Tot. Refills 3, Maintenance, 06/13/20 15:27:00 EST, Route to Pharmacy Electronically, [facility]/pharmacy #[id number], Partial fill upon patient request if the prescription is for a schedule II opioid drug... Start Date: 06/13/20 Stop Date: 06/08/21 Status: Ordered metFORMIN 750 mg oral tablet, extended release 1 tablet = 750 mg, By Mouth, Daily, with evening meal, # 90 tablet, 1 Refills, Maintenance, 05/18/20 11:14:00 EST, ER Tablet, [facility]/pharmacy #[id number], Partial fill upon patient request if the prescriptionis for a schedule II opioid drug., 172, cm, ... Start Date: 05/18/20 Stop Date: 11/14/20 Status: Ordered metoprolol 25 mg oral tablet, extended release 25 mg, 1, tablet, By Mouth, Daily, # 90 tablet, Refills 0, Tot. Refills 0, Maintenance, 04/09/20 15:37:00 EST, Route to Pharmacy Electronically, [facility]/pharmacy #[id number], 172, cm, 04/09/20 13:00:00 EST, Height Start Date: 04/09/20 Stop Date: 07/08/20 Status: Ordered pantoprazole 40 mg oral delayed release tablet 1 tablet = 40 mg, By Mouth, Daily, # 90 tablet, 0 Refills, Maintenance, 04/09/20 15:38:00 EST, EC Tablet, 172, cm, 04/09/20 13:00:00 EST, Height Start Date: 04/09/20 Stop Date: 07/08/20 Status: Ordered QUEtiapine 100 mg oral tablet 1, tablet, By Mouth, Daily, # 90 tablet, Refills 0, Tot. Refills 0, Maintenance, 04/09/20 15:39:00 EST, Route to Pharmacy Electronically, [facility]/pharmacy #[id number], 172, cm, 04/09/20 13:00:00 EST, Height Start Date: 04/09/20 Stop Date: 07/08/20 Status: Ordered Suboxone 2 mg-0.5 mg sublingual film 1 film, Sublingual, Daily, 0 Refills, Maintenance, 05/17/20 13:13:00 EST, Partial fill upon patientrequest if the prescription is for a schedule II opioid drug. Start Date: 05/17/20 Status: Ordered Tylenol Extra Strength 500 mg oral tablet 2 tablet = 1,000 mg, By Mouth, 2 times a day, PRN Pain, for 90 days, # 120 tablet, 0 Refills, Acute07/08/20 15:41:00 EDT, 04/09/20 15:41:00 EST, [facility]/pharmacy #[id number], Partial fill upon patient requestif the prescription is for a schedule II opioid jacob... Start Date: 04/09/20 Stop Date: 07/08/20 Status: Ordered Wheelchair See Instructions, # 1 [...]
--- OUTSIDE RECORDS SUMMARY | 2023-07-31 11:54 | XMS_ITS | Continuity of Care Document ---
Author Organization [facility] Address [address] [place] [address]- Care Team Providers Care Manager Rental Name Role Phone Imani AQUINO, Beatrice Carbajal Primary Care Physician Encounter [facility] [place] Date(s): 03/25/21 - 04/24/21 [facility] [address] [place] [address]- Allergies, Adverse Reactions, Alerts No Known Medication Allergies Substance Reaction Severity Status Other Environmental Allergy 1 Active 1Wool Medications atorvastatin 40 mg oral tablet 1 tablet = 40 mg, By Mouth, Daily, # 90 tablet, 1 Refills, Maintenance, 11/20/20 10:30:00 EDT, Tablet, [facility] #[id number], 172, cm, 08/01/20 13:59:00 EDT, Height Start Date: 11/20/20 Stop Date: 05/19/21 Status: Ordered Combivent Respimat 20 mcg-100 mcg/inh inhalation aerosol 1 puffs, Inhalation, 4 times a day, PRN Wheezing/Shortness of Breath, # 1 each, 3 Refills, Maintenance, 06/13/20 15:39:00 EST, Aerosol, [facility]/pharmacy #[id number], Partial fill upon patient request if the prescription is for a schedule II opioid drug., 1 puff... Start Date: 06/13/20 Status: Ordered duloxetine 30 mg oral enteric coated capsule 1 capsule, By Mouth, Daily, # 90 capsule, 0 Refills, Maintenance, 02/07/21 16:12:00 EDT, [facility] #[id number], 172, cm, 08/01/20 13:59:00 EDT, Height Start Date: 02/07/21 Stop Date: 05/08/21 Status: Ordered FREESTYLE FREEDOM LITE KIT USE [...] capsule, Refills 0, Tot. Refills 0, Maintenance, 04/11/21 12:42:00 EST, Route to Pharmacy Electronically, [facility] #[id number], 175, cm, 02/14/21 20:23:... Start Date: 04/11/21 Stop Date: 05/11/21 Status: Ordered lisinopril 20 mg oral tablet 1, tablet, By Mouth, Daily, # 30 tablet, Refills 5, Route to Pharmacy Electronically, [facility] #[id number], 175, cm, 02/14/21 20:23:00 EDT, Height, 77.5, kg, 02/14/21 20:23:00 EDT, Dry Weight Start Date: 02/23/21 Status: Ordered MetFORMIN (Eqv-Glucophage XR) 500 mg oral tablet, extended release 2 tablet = 1,000 mg, By Mouth, 2 times a day, # 120 tablet, 3 Refills, Maintenance, 04/15/21 15:52:00 EST, [facility] #[id number], Partial fill upon patient request if the prescription is for a schedule II opioid drug., 175, cm, 02/14/21 20:23:00... Start Date: 04/15/21 Stop Date: 08/13/21 Status: Ordered metFORMIN 500 mg oral tablet, extended release 2 tablet = 1,000 mg, By Mouth, Daily, # 60 tablet, 0 Refills, Maintenance, 04/11/21 12:42:00 EST, [facility] #[id number], Partial fill upon patient request if the [...] Refills, Maintenance, 02/08/21 9:48:00 EDT, ER Tablet, [facility] #[id number], Partialfill upon patient request if the prescription is... Start Date: 02/08/21 Stop Date: 08/07/21 Status: Ordered metoprolol 25 mg oral tablet, extended release 25 mg, 1, tablet, By Mouth, Daily, # 90 tablet, Refills 1, Tot. Refills 1, Maintenance, 10/19/20 15:29:00 EDT, Route to Pharmacy Electronically, [facility] #[id number], 172, cm, 08/01/20 13:59:00 EDT, Height Start Date: 10/19/20 Stop Date: 04/17/21 Status: Ordered omeprazole 40 mg oral enteric coated capsule 1 capsule = 40 mg, By Mouth, Daily, # 90 capsule, 0 Refills, Maintenance, 04/24/21 14:31:00 EST, ECCapsule, [facility] #[id number], Partial fill upon patient request if the prescription is for a schedule II opioid drug., 175, cm, 02/14/21 20:23:... Start Date: 04/24/21 Status: Ordered QUEtiapine 100 mg oral tablet 1, tablet, By Mouth, Daily, bloodwork and appt needed, # 30 tablet, Refills 1, Tot. Refills 1, Maintenance, 02/08/21 9:46:00 EDT, Route to Pharmacy Electronically, [facility] #[id number], 172, cm, 08/01/20 13:59:00 EDT, Height Start Date: 02/08/21 Status: Ordered QUEtiapine 100 mg oral tablet See Instructions, TAKE 1 TABLET BY MOUTH DAILY BLOODWORK AND APPOINTMENT NEEDED, # 30 tablet, Refills 0, Tot. Refills 0, 04/11/21 12:42:00 EST, Instructions Replace Required Details, Route to Pharmacy Electronically, [facility] #[id number], 175,... Start Date: 04/11/21 Status: Ordered Suboxone 2 mg-0.5 mg sublingual [...]
--- OUTSIDE RECORDS SUMMARY | 2023-07-31 11:54 | XMS_ITS | Continuity of Care Document ---
Author Organization [facility] Address [address] [place] [address]- Care Team Providers Care Trauma Manager Name Role Phone Imani AQUINO, Beatrice Carbajal Primary Care Physician Encounter [facility] [place] Date(s): 03/29/21 - 04/28/21 [facility] [address] [place] [address]- Allergies, Adverse Reactions, Alerts No Known Medication Allergies Substance Reaction Severity Status Other Environmental Allergy 1 Active 1Wool Medications atorvastatin 40 mg oral tablet 1 tablet = 40 mg, By Mouth, Daily, # 90 tablet, 1 Refills, Maintenance, 11/20/20 10:30:00 EDT, Tablet, [facility] #[id number], 172, cm, 08/01/20 13:59:00 EDT, Height Start Date: 11/20/20 Stop Date: 05/19/21 Status: Ordered Combivent Respimat 20 mcg-100 mcg/inh inhalation aerosol 1 puffs, Inhalation, 4 times a day, PRN Wheezing/Shortness of Breath, # 1 each, 3 Refills, Maintenance, 06/13/20 15:39:00 EST, Aerosol, [facility]/pharmacy #[id number], Partial fill upon patient request if the prescription is for a schedule II opioid drug., 1 puff... Start Date: 06/13/20 Status: Ordered duloxetine 30 mg oral enteric coated capsule 1 capsule, By Mouth, Daily, # 90 capsule, 0 Refills, Maintenance, 02/07/21 16:12:00 EDT, [facility] #[id number], 172, cm, 08/01/20 13:59:00 EDT, Height Start [...] 04/11/21 12:42:00 EST, Route to Pharmacy Electronically, [facility] #[id number], 175, cm, 02/14/21 20:23:... Start Date: 04/11/21 Stop Date: 05/11/21 Status: Ordered lisinopril 20 mg oral tablet 1, tablet, By Mouth, Daily, # 30 tablet, Refills 5, Route to Pharmacy Electronically, [facility] #[id number], 175, cm, 02/14/21 20:23:00 EDT, Height, 77.5, kg, 02/14/21 20:23:00 EDT, Dry Weight Start Date: 02/23/21 Status: Ordered MetFORMIN (Eqv-Glucophage XR) 500 mg oral tablet, extended release 2 tablet = 1,000 mg, By Mouth, 2 times a day, # 120 tablet, 3 Refills, Maintenance, 04/15/21 15:52:00 EST, [facility] #[id number], Partial fill upon patient request if the prescription is for a schedule II opioid drug., 175, cm, 02/14/21 20:23:00... Start Date: 04/15/21 Stop Date: 08/13/21 Status: Ordered metFORMIN 500 mg oral tablet, extended release 2 tablet = 1,000 mg, By Mouth, Daily, # 60 tablet, 0 Refills, Maintenance, 04/11/21 12:42:00 EST, [facility] #[id number], Partial fill upon patient request if the [...] Refills, Maintenance, 02/08/21 9:48:00 EDT, ER Tablet, [facility] #[id number], Partialfill upon patient request if the prescription is... Start Date: 02/08/21 Stop Date: 08/07/21 Status: Ordered metoprolol 25 mg oral tablet, extended release 25 mg, 1, tablet, By Mouth, Daily, # 90 tablet, Refills 1, Tot. Refills 1, Maintenance, 10/19/20 15:29:00 EDT, Route to Pharmacy Electronically, [facility] #[id number], 172, cm, 08/01/20 13:59:00 EDT, Height Start Date: 10/19/20 Stop Date: 04/17/21 Status: Ordered omeprazole 40 mg oral enteric coated capsule 1 capsule = 40 mg, By Mouth, Daily, # 90 capsule, 0 Refills, Maintenance, 04/24/21 14:31:00 EST, ECCapsule, [facility] #[id number], Partial fill upon patient request if the prescription is for a schedule II opioid drug., 175, cm, 02/14/21 20:23:... Start Date: 04/24/21 Status: Ordered QUEtiapine 100 mg oral tablet 1, tablet, By Mouth, Daily, bloodwork and appt needed, # 30 tablet, Refills 1, Tot. Refills 1, Maintenance, 02/08/21 9:46:00 EDT, Route to Pharmacy Electronically, [facility] #[id number], 172, cm, 08/01/20 13:59:00 EDT, Height Start Date: 02/08/21 Status: Ordered QUEtiapine 100 mg oral tablet See Instructions, TAKE 1 TABLET BY MOUTH DAILY BLOODWORK AND APPOINTMENT NEEDED, # 30 tablet, Refills 0, Tot. Refills 0, 04/11/21 12:42:00 EST, Instructions Replace Required Details, Route to Pharmacy Electronically, [facility] #[id number], 175,... Start Date: 04/11/21 Status: Ordered Suboxone [...]
--- OUTSIDE RECORDS SUMMARY | 2023-07-31 11:54 | XMS_ITS | Continuity of Care Document ---
Author Organization [facility] Address [address] [place] [address]- Care Team Providers Care Braider Setter Name Role Phone Glenn AQUINO, Danielle Primary Care Physician [place] [facility] [place] 06/14/20 - 07/14/20 [facility] [address] [place] [address]- Allergies, Adverse Reactions, Alerts No Known Medication [...] 04/09/20 15:37:00 EST, Route to Pharmacy Electronically, [facility]/pharmacy #[id number], 172, cm, 04/09/20 13:00:00 EST, [...] 04/09/20 15:39:00 EST, Route to Pharmacy Electronically, [facility]/pharmacy #[id number], 172, cm, 04/09/20 13:00:00 EST, [...]
--- OUTSIDE RECORDS SUMMARY | 2023-07-31 11:54 | XMS_ITS | Continuity of Care Document ---
Author Organization [facility] Address [address] [place] [address]- Care Team Providers Care Brand Inspector Name Role Phone Glenn AQUINO, Danielle Primary Care Physician Encounter [facility] [place] Date(s): 08/30/20 - 09/29/20 [facility] [address] [place] [address]- Encounter Diagnosis HTN (hypertension)(Discharge Diagnosis) - 07/16/20 Schizoaffective disorder(Discharge Diagnosis) - 07/16/20 Major depression, recurrent(Discharge Diagnosis) - 07/16/20 Attending Physician: Colt Kitchen Admitting Physician: Colt Kitchen Referring Physician: Colt Kitchen Allergies, Adverse Reactions, Alerts No Known Medication [...] Maintenance,07/11/20 15:14:00 EDT, Route to Pharmacy Electronically, [facility]/pharmacy #[id number], 172, cm, 07/11/20 14:49:00 EDT, Height Start Date: 07/11/20 Stop Date: 09/09/20 Status: Ordered lisinopril 20 mg oral tablet 20 mg, 1, tablet, By Mouth, Daily, # 90 tablet, Refills 1, Tot. Refills 1, Maintenance, 07/11/20 15:12:00 EDT, Route to Pharmacy Electronically, [facility]/pharmacy #[id number], Partial fill upon patient request if the prescription is for a schedule II opioid drug... Start Date: 07/11/20 Stop Date: 01/07/21 Status: Ordered metFORMIN 750 mg oral tablet, extended release 1 tablet = 750 mg, By Mouth, 2 times a day, with food, # 180 tablet, 1 Refills, Maintenance, 07/12/20 7:44:00 EDT, ER Tablet, [facility]/pharmacy #[id number], Partial fill upon patient request if the prescriptionis for a schedule II opioid drug., 172, cm, ... Start Date: 07/12/20 Stop Date: 01/08/21 Status: Ordered metoprolol 25 mg oral tablet, extended release 25 mg, 1, tablet, By Mouth, Daily, # 90 tablet, Refills 1, Tot. Refills 1, Maintenance, 07/16/20 12:36:00 EDT, Route to Pharmacy Electronically, [facility]/pharmacy #[id number], 172, cm, 07/11/20 [...] 07/16/20 12:36:00 EDT, Route to Pharmacy Electronically, [facility]/pharmacy #[id number], 172, cm, 07/11/20 [...] Effective Dates Health Status Clinical Service Informant HTN (hypertension) Discharge Diagnosis 07/16/20 Schizoaffective disorder Discharge Diagnosis 07/16/20 Major depression, recurrent Discharge Diagnosis 07/16/20 Social History Social History Type Response Smoking Status 10 or more cigarette s (1/2 pack or more)/day in last 30 days; Other: about 2.5 ppd; entered on: 02/28/19 Sex
--- OUTSIDE RECORDS SUMMARY | 2023-07-31 11:54 | XMS_ITS | Continuity of Care Document ---
Author Organization [facility] Address [address] [place] [address]- Care Team Providers Care Corporate Attorney Name Role Phone Imani AQUINO, Beatrice Carbajal Primary Care Physician [phone] [place] [facility] [place]): 05/28/21 - 06/27/21 [facility] [address], [place] [address] Allergies, Adverse Reactions, Alerts No Known Medication Allergies Substance Reaction Severity Status Other Environmental Allergy 1 Active 1Wool Medications atorvastatin 40 mg oral tablet 1 tablet = 40 mg, By Mouth, Daily, # 90 tablet, 1 Refills, Maintenance, 11/20/20 10:30:00 EDT, Tablet, [facility] #[id number], 172, cm, 08/01/20 13:59:00 EDT, Height Start Date: 11/20/20 Stop Date: 05/19/21 Status: Ordered Combivent Respimat 20 mcg-100 mcg/inh inhalation aerosol 1 puffs, Inhalation, 4 times a day, PRN Wheezing/Shortness of Breath, # 1 each, 3 Refills, Maintenance, 06/13/20 15:39:00 EST, Aerosol, [facility]/pharmacy #[id number], Partial fill upon patient request if the prescription is for a schedule II opioid drug., 1 puff... Start Date: 06/13/20 Status: Ordered duloxetine 30 mg oral enteric coated capsule 1 capsule, By Mouth, Daily, # 90 capsule, 0 Refills, Maintenance, 02/07/21 16:12:00 EDT, [facility] #[id number], 172, cm, 08/01/20 13:59:00 EDT, Height Start Date: 02/07/21 Stop Date: 05/08/21 Status: Ordered fenofibrate 54 mg oral tablet 1 tablet = 54 mg, By Mouth, Daily, # 30 tablet, 0 Refills, Maintenance, 05/10/21 11:35:00 EST, [facility] #[id number], Partial fill upon patient request if the [...] 05/29/21 13:15:00 EST, Route to Pharmacy Electronically, [facility] #[id number], 175, cm, 02/14/21 20:23:... Start Date: 05/29/21 Stop Date: 06/28/21 Status: Ordered lisinopril 20 mg oral tablet 1, tablet, By Mouth, Daily, # 30 tablet, Refills 5, Route to Pharmacy Electronically, [facility] #[id number], 175, cm, 02/14/21 20:23:00 EDT, Height, 77.5, kg, 02/14/21 20:23:00 EDT, Dry Weight Start Date: 02/23/21 Status: Ordered MetFORMIN (Eqv-Glucophage XR) 500 mg oral tablet, extended release 2 tablet = 1,000 mg, By Mouth, 2 times a day, # 120 tablet, 3 Refills, Maintenance, 04/15/21 15:52:00 EST, [facility] #[id number], Partial fill upon patient request if the prescription is for a schedule II opioid drug., 175, cm, 02/14/21 20:23:00... Start Date: 04/15/21 Stop Date: 08/13/21 Status: Ordered metFORMIN 500 mg oral tablet, extended release 2 tablet = 1,000 mg, By Mouth, Daily, # 60 tablet, 0 Refills, Maintenance, 04/11/21 12:42:00 EST, [facility] #[id number], Partial fill upon patient request if the [...] Refills, Maintenance, 02/08/21 9:48:00 EDT, ER Tablet, [facility] #[id number], Partialfill upon patient request if the prescription is... Start Date: 02/08/21 Stop Date: 08/07/21 Status: Ordered metoprolol 25 mg oral tablet, extended release 25 mg, 1, tablet, By Mouth, Daily, # 90 tablet, Refills 0, Tot. Refills 0, Maintenance, 05/10/21 11:34:00 EST, Route to Pharmacy Electronically, [facility] #[id number], 175, cm, 02/14/21 20:23:00 EDT, Height, 77.5, kg, 02/14/21 20:23:00 EDT, Dry... Start Date: 05/10/21 Status: Ordered metoprolol 25 mg oral tablet, extended release 25 mg, 1, tablet, By Mouth, Daily, # 90 tablet, Refills 1, Tot. Refills 1, Maintenance, 10/19/20 15:29:00 EDT, Route to Pharmacy Electronically, [facility] #[id number], 172, cm, 08/01/20 13:59:00 EDT, Height Start Date: 10/19/20 Stop Date: 04/17/21 Status: Ordered omeprazole 40 mg oral enteric coated capsule 1 capsule = 40 mg, By Mouth, Daily, # 90 capsule, 0 Refills, Maintenance, 04/24/21 14:31:00 EST, ECCapsule, [facility] #[id number], Partial fill upon patient request if the prescription is for a schedule II opioid drug., 175, cm, 02/14/21 20:23:... Start Date: 04/24/21 Status: Ordered QUEtiapine 100 mg oral tablet 1, tablet, By Mouth, Daily, bloodwork and appt needed, # 30 tablet, Refills 1, Tot. Refills 1, Maintenance, 02/08/21 9:46:00 EDT, Route to Pharmacy Electronically, [facility] #[id number], 172, cm, 08/01/20 13:59:00 EDT, Height Start Date: 02/08/21 Status: Ordered QUEtiapine 100 mg oral tablet See Instructions, TAKE 1 TABLET BY MOUTH DAILY BLOODWORK AND APPOINTMENT NEEDED, # 30 tablet, Refills 0, Tot. Refills 0, 05/29/21 13:15:00 EST, Instructions Replace Required Details, Route to Pharmacy Electronically, [facility] #[id number], 175,... Start Date: 05/29/21 Status: Ordered Suboxone [...] 05/10/21 11:34:00 EST, Route to Pharmacy Electronically, [facility] #[id number], Partial fill uponpatient request if the prescription [...]
--- OUTSIDE RECORDS SUMMARY | 2023-07-31 11:54 | XMS_ITS | Continuity of Care Document ---
Author Organization [facility] Address [address] [place] [address]- Care Team Providers Care Mobile Manager Name Role Phone Imani AQUINO, Beatrice Carbajal Primary Care Physician [phone] [place] [facility] [place] 06/06/21 - 07/10/21 [facility] [address] [place], [place] [address] Attending Physician: Debra DOWNING, Ni Ni Allergies, Adverse Reactions, Alerts No Known Medication Allergies Substance Reaction Severity Status Other Environmental Allergy 1 Active 1Wool Medications atorvastatin 40 mg oral tablet 1 tablet = 40 mg, By Mouth, Daily, # 90 tablet, 1 Refills, Maintenance, 11/20/20 10:30:00 EDT, Tablet, [facility] #[id number], 172, cm, 08/01/20 13:59:00 EDT, Height Start Date: 11/20/20 Stop Date: 05/19/21 Status: Ordered Combivent Respimat 20 mcg-100 mcg/inh inhalation aerosol 1 puffs, Inhalation, 4 times a day, PRN Wheezing/Shortness of Breath, # 1 each, 3 Refills, Maintenance, 06/13/20 15:39:00 EST, Aerosol, [facility]/pharmacy #[id number], Partial fill upon patient request if the prescription is for a schedule II opioid drug., 1 puff... Start Date: 06/13/20 Status: Ordered duloxetine 30 mg oral enteric coated capsule 1 capsule, By Mouth, Daily, # 90 capsule, 0 Refills, Maintenance, 02/07/21 16:12:00 EDT, [facility] #[id number], 172, cm, 08/01/20 13:59:00 EDT, Height Start Date: 02/07/21 Stop Date: 05/08/21 Status: Ordered fenofibrate 54 mg oral tablet 1 tablet = 54 mg, By Mouth, Daily, # 30 tablet, 0 Refills, Maintenance, 05/10/21 11:35:00 EST, [facility] #[id number], Partial fill upon patient request if the [...] 05/29/21 13:15:00 EST, Route to Pharmacy Electronically, [facility] #[id number], 175, cm, 02/14/21 20:23:... Start Date: 05/29/21 Stop Date: 06/28/21 Status: Ordered lisinopril 20 mg oral tablet 1, tablet, By Mouth, Daily, # 30 tablet, Refills 5, Route to Pharmacy Electronically, [facility] #[id number], 175, cm, 02/14/21 20:23:00 EDT, Height, 77.5, kg, 02/14/21 20:23:00 EDT, Dry Weight Start Date: 02/23/21 Status: Ordered MetFORMIN (Eqv-Glucophage XR) 500 mg oral tablet, extended release 2 tablet = 1,000 mg, By Mouth, 2 times a day, # 120 tablet, 3 Refills, Maintenance, 04/15/21 15:52:00 EST, [facility] #[id number], Partial fill upon patient request if the prescription is for a schedule II opioid drug., 175, cm, 02/14/21 20:23:00... Start Date: 04/15/21 Stop Date: 08/13/21 Status: Ordered metFORMIN 500 mg oral tablet, extended release 2 tablet = 1,000 mg, By Mouth, Daily, # 60 tablet, 0 Refills, Maintenance, 04/11/21 12:42:00 EST, [facility] #[id number], Partial fill upon patient request if the [...] Refills, Maintenance, 02/08/21 9:48:00 EDT, ER Tablet, [facility] #[id number], Partialfill upon patient request if the prescription is... Start Date: 02/08/21 Stop Date: 08/07/21 Status: Ordered metoprolol 25 mg oral tablet, extended release 25 mg, 1, tablet, By Mouth, Daily, # 90 tablet, Refills 0, Tot. Refills 0, Maintenance, 05/10/21 11:34:00 EST, Route to Pharmacy Electronically, [facility] #[id number], 175, cm, 02/14/21 20:23:00 EDT, Height, 77.5, kg, 02/14/21 20:23:00 EDT, Dry... Start Date: 05/10/21 Status: Ordered metoprolol 25 mg oral tablet, extended release 25 mg, 1, tablet, By Mouth, Daily, # 90 tablet, Refills 1, Tot. Refills 1, Maintenance, 10/19/20 15:29:00 EDT, Route to Pharmacy Electronically, [facility] #[id number], 172, cm, 08/01/20 13:59:00 EDT, Height Start Date: 10/19/20 Stop Date: 04/17/21 Status: Ordered omeprazole 40 mg oral enteric coated capsule 1 capsule = 40 mg, By Mouth, Daily, # 90 capsule, 0 Refills, Maintenance, 04/24/21 14:31:00 EST, ECCapsule, [facility] #[id number], Partial fill upon patient request if the prescription is for a schedule II opioid drug., 175, cm, 02/14/21 20:23:... Start Date: 04/24/21 Status: Ordered QUEtiapine 100 mg oral tablet 1, tablet, By Mouth, Daily, bloodwork and appt needed, # 30 tablet, Refills 1, Tot. Refills 1, Maintenance, 02/08/21 9:46:00 EDT, Route to Pharmacy Electronically, [facility] #[id number], 172, cm, 08/01/20 13:59:00 EDT, Height Start Date: 02/08/21 Status: Ordered QUEtiapine 100 mg oral tablet See Instructions, TAKE 1 TABLET BY MOUTH DAILY BLOODWORK AND APPOINTMENT NEEDED, # 30 tablet, Refills 0, Tot. Refills 0, 05/29/21 13:15:00 EST, Instructions Replace Required Details, Route to Pharmacy Electronically, [facility] #[id number], 175,... Start Date: 05/29/21 Status: Ordered Suboxone [...] 05/10/21 11:34:00 EST, Route to Pharmacy Electronically, [facility] #[id number], Partial fill uponpatient request if the prescription [...]
--- OUTSIDE RECORDS SUMMARY | 2023-07-31 11:54 | XMS_ITS | Continuity of Care Document ---
Author Organization [facility] Address [address] [place] [address]- Care Team Providers Care Optical Instruments Supervisor Name Role Phone Glenn AQUINO, Danielle Primary Care Physician [phone] En[place] [facility] [place] 12/12/20 - 01/11/21 [facility] [address] [place] [address]- Encounter Diagnosis HTN (hypertension)(Discharge Diagnosis) - 07/16/20 [...] 1 Refills, Maintenance, 11/20/20 10:30:00 EDT, Tablet, [facility] #[id number], 172, cm, 08/01/20 13:59:00 EDT, Height Start Date: 11/20/20 Stop Date: 05/19/21 Status: Ordered Combivent Respimat 20 mcg-100 mcg/inh inhalation aerosol 1 puffs, Inhalation, 4 times a day, PRN Wheezing/Shortness of Breath, # 1 each, 3 Refills, Maintenance, 06/13/20 15:39:00 EST, Aerosol, [facility]/pharmacy #[id number], Partial fill upon patient request if the prescription is for a schedule II opioid drug., 1 puff... Start Date: 06/13/20 Status: Ordered duloxetine 30 mg oral enteric coated capsule 1 capsule, By Mouth, Daily, # 90 capsule, 0 Refills, Maintenance, 11/09/20 12:46:00 EDT, [facility] #[id number], 172, cm, 08/01/20 13:59:00 EDT, Height Start Date: 11/09/20 Stop Date: 02/07/21 Status: Ordered gabapentin 300 mg oral capsule 600 mg, 2, capsule, By Mouth, 3 times a day, PLEASE CALL OFFICE FOR RESCHEDULE APPT., # 180 capsule, Refills 2, Tot. Refills 2, Maintenance, 12/11/20 15:07:00 EDT, Route to Pharmacy Electronically, [facility] #[id number], 172, cm, 08/01/20 13:59:... Start Date: 12/11/20 Stop Date: 03/11/21 Status: Ordered lisinopril 20 mg oral tablet 20 mg, 1, tablet, By Mouth, Daily, # 30 tablet, Refills 0, Tot. Refills 0, Maintenance, 01/11/21 16:12:00 EDT, Route to Pharmacy Electronically, [facility] #[id number], Partial fill upon patientrequest if the prescription is for a schedule II op... Start Date: 01/11/21 Stop Date: 04/11/21 Status: Ordered metFORMIN 750 mg oral tablet, extended release 1 tablet = 750 mg, By Mouth, 2 times a day, with food, # 180 tablet, 1 Refills, Maintenance, 07/12/20 7:44:00 EDT, ER Tablet, [facility]/pharmacy #[id number], Partial fill upon patient request if the prescriptionis for a schedule II opioid drug., 172, cm, ... Start Date: 07/12/20 Stop Date: 01/08/21 Status: Ordered metoprolol 25 mg oral tablet, extended release 25 mg, 1, tablet, By Mouth, Daily, # 90 tablet, Refills 1, Tot. Refills 1, Maintenance, 10/19/20 15:29:00 EDT, Route to Pharmacy Electronically, [facility] #[id number], 172, cm, 08/01/20 13:59:00 EDT, Height Start [...] and appt needed, # 30 tablet, Refills 0, Tot. Refills 0, Maintenance, 01/11/21 16:12:00 EDT, Route to Pharmacy Electronically, [facility] #[id number], 172, cm, 08/01/20 13:59:00 EDT, Height Start Date: 01/11/21 Stop Date: 04/11/21 Status: Ordered Suboxone 2 mg-0.5 [...]
--- OUTSIDE RECORDS SUMMARY | 2023-07-31 11:54 | XMS_ITS | Continuity of Care Document ---
Author Organization [facility] Address [address] [place] [address]- Care Team Providers Care Cash Processor Name Role Phone Terrell Long DO Primary Care Physician [phone] [place] [facility] [place] 12/[place]/22 [facility] [address] [place] [address]- Encounter Diagnosis HTN (hypertension)(Discharge Diagnosis) - 07/16/20 Schizoaffective disorder(Discharge Diagnosis) - 07/16/20 Major depression, recurrent(Discharge Diagnosis) - 07/16/20 Attending Physician: Colt Kitchen Admitting Physician: Colt Kitchen Referring Physician: Colt Kitchen Allergies, Adverse Reactions, Alerts No Known Medication Allergies Substance Reaction Severity Status Other Environmental Allergy 1, 2 Wool Persiste nt Mild Active 1RASH 2Wool Immunizations Given and Recorded Vaccine Date Status Refusal Reason tetanus/diphtheria/pertussis, acel(Tdap) 09/07/22 Given Medications atorvastatin 40 mg oral tablet 1 tablet = 40 mg, By Mouth, Daily, # 90 tablet, 1 Refills, Maintenance, 10/02/22 9:57:00 EDT, Tablet Start Date: 10/02/22 Stop Date: 03/31/23 Status: Ordered buprenorphine-naloxone 2 mg-0.5 mg sublingual film 2 film, Sublingual, Daily, 0 Refills, Maintenance, 11/18/22 10:59:00 EDT, [facility], Partial fill upon patient request if the prescription is for a schedule II opioid drug. Start Date: 11/18/22 Status: Ordered buprenorphine-naloxone 8 mg-2 mg sublingual film 1 film, Sublingual, Daily, 0 Refills, Maintenance, 11/18/22 11:00:00 EDT, Film, Partial fill upon patient request if the prescription is for a schedule II opioid drug. Start Date: 11/18/22 Status: Ordered efinaconazole 10% topical solution 1 application, Topically, Daily, for 48 week(s), # 8 mL, 0 Refills, Acute 10/20/23 11:00:00 EDT, 11/18/22 11:00:00 EDT, Solution, Partial fill upon patient request if the prescription is for a schedule II opioid drug. Start Date: 11/18/22 Stop Date: 10/20/23 Status: Ordered fenofibrate 54 mg oral tablet 1 tablet = 54 mg, By Mouth, Daily, # 30 tablet, 0 Refills, Maintenance, 10/02/22 9:57:00 EDT, Partial fill upon patient request if the prescription is for a schedule II opioid drug. Start Date: 10/02/22 Status: Ordered ibuprofen 200 mg oral capsule 2 capsule = 400 mg, By Mouth, 2 times a day, PRN for pain, # 120 capsule, 0 Refills, Maintenance, 11/15/22 18:36:00 EDT, Capsule, Partial fill upon patient request if the prescription is for a schedule II opioid drug. Start Date: 11/15/22 Status: Ordered insulin lispro 100 units/mL injectable solution 4-12 units, Subcutaneous Injection, 3 times a day before meals, 200-250- 4 UNITS 251-300 6 UNITS 301-350 8 UNITS 351-400 10 UNITS 401-450 12 UNITS GREATER THAN 450 NOTIFY PROVIDER, 0 Refills, Maintenance, 09/18/22 8:09:00 EDT, Injection, Partial... Start Date: 09/18/22 Status: Ordered lisinopril 5 mg oral tablet 5 mg, 1, tablet, By Mouth, Daily, # 30 tablet, Refills 0, Tot. Refills 0, Maintenance, 10/01/22 11:10:00 EDT, Print Requisition, Partial fill upon patient request if the prescription is for a schedule II opioid drug., 165, cm, 10/01/22 8:40:00 EDT, He... Start Date: 10/01/22 Status: Ordered metFORMIN 500 mg oral tablet 1 each = 500 mg, By Mouth, 2 times a day before breakfast and dinne, # 60 tablet, 0 Refills, Maintenance, 10/01/22 11:10:00 EDT, Tablet, Partial fill upon patient request if the prescription is for aschedule II opioid drug., megan Alvarez, 10/01/22 8:40:00... Start Date: 10/01/22 Status: Ordered metoprolol 25 mg oral tablet, extended release 25 mg, 1, tablet, By Mouth, Daily, # 90 tablet, Refills 1, Tot. Refills 1, Maintenance, 10/02/22 9:57:00 EDT, Print Requisition Start Date: 10/02/22 Stop Date: 03/31/23 Status: Ordered pantoprazole 40 mg oral delayed release tablet 1 tablet = 40 mg, By Mouth, Daily, # 30 tablet, 0 Refills, Maintenance, 11/15/22 18:32:00 EDT, EC Tablet Start Date: 11/15/22 Status: Ordered QUEtiapine 100 mg oral tablet 100 mg, 1, tablet, By Mouth, Daily at bedtime, # 30 tablet, Refills 0, Tot. Refills 0, Maintenance,10/01/22 11:12:00 EDT, Print Requisition, Partial fill upon patient request if the prescription is for a schedule II opioid drug., megan Alvarez, 10/01/22 8:... Start Date: 10/01/22 Status: Ordered SEROquel 25 mg oral tablet 50 mg, 2, tablet, By Mouth, Daily in AM, # 60 tablet, Refills 0, Tot. Refills 0, Maintenance, 10/01/22 11:12:00 EDT, Print Requisition, Partial fill upon patient request if the prescription is for a schedule II opioid drug., megan Alvarez, 10/01/22 8:40:00... Start Date: 10/01/22 Status: Ordered sertraline 50 mg oral tablet 2 tablet = 100 mg, By Mouth, Daily, # 30 tablet, 0 Refills, Maintenance, 10/01/22 11:09:00 EDT, Tablet, Partial fill upon patient request if the prescription is for a schedule II opioid drug., megan Alvarez, 10/01/22 8:40:00 EDT, Height, 86, kg, 09/23/22 17... Start Date: 10/01/22 Status: Ordered trimethoprim-sulfamethoxazole DS 160 mg, By Mouth, 2 times a day, Maintenance, 11/15/22 18:34:00 EDT Start Date: 11/15/22 Status: Ordered Problem List Condition Confirmation Course Effective Dates Status H ealth Status Informant Abdominal aortic ectasia Confirmed Active Calcification of abdominal aorta Confirmed Active Centrilobular emphysema Confirmed Active Chronic hyponatremia Confirmed Active Chronic low back pain Confirmed Active Chronic obstructive pulmonary disease Confirmed Active Chronic pain syndrome Confirmed Active Compression fracture of spine Confirmed Active 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 Active Environmental allergies Confirmed Active Gastritis Confirmed Active GI bleed Confirmed Active History of lung cancer Confirmed Active Homelessness Confirmed Active Hyperlipidemia Confirmed Active HTN (hypertension) Confirmed Active Mixed hyperlipidemia Confirmed Active Opiate dependence Confirmed Active OA (osteoarthritis) Confirmed Active Chronic pain of both knees Confirmed Active Major depression, recurrent Confirmed Active Schizoaffective disorder Confirmed Active Smoking Confirmed Active Diabetes mellitus, type II Confirmed Active Type 2 diabetes mellitus with diabetic peripheral angiopathy without gangrene Confirmed Active Duodenal ulcer Confirmed Active Wedge compression fracture of L1 vertebra Confirmed Active Diagnosis Diagnosis Type Effective Dates Health Status Clinical Service Informant HTN (hypertension) Discharge Diagnosis 07/16/20 Schizoaffective disorder Discharge Diagnosis 07/16/20 Major depression, recurrent Discharge Diagnosis 07/16/20 Social History Social History Type Response Tobacco Use: 2 PPD. Interest ed in cessation: No. No, Other: about 2.5 ppd. Type: Cigarettes. Sex Hospital Consult note * Event Display: Inpatient Consult Note, Non-BH Authored Date: * Event Display: Inpatient Consult Note, Non-BH Authored Date: Laboratory * Event Display: Non BH Lab Results Authored Date: * Event Display: Non BH Lab Results Authored Date: * Event Display: Non BH Lab Results Authored Date: * Event Display: Non BH Lab Results Authored Date: * Event Display: Non BH Lab Results Authored Date: * Event Display: Non BH Lab Results Authored Date: * Event Display: Non BH Lab Results Authored Date: * Event Display: Non BH Lab Results Authored Date: XR Knee Views * Event Display: X-Ray Knee Authored Date: Radiology * Event Display: CT Scan Abdomen, Non- BH Authored Date: * Event Display: CT Scan Abdomen, Non- BH Authored Date: Patient Care team information Care Team Personnel Name: Isa Lake RN Position: S RN Member Role: Primary Care Nurse Name: Janet Moreno LPN Position: S RN Member Role: Primary Care Nurse Name: Luis Armando Alford RN Position: S RN Member Role: Primary Care Nurse Name: Gaye Motley RN Position: S RN Member Role: Primary Care Nurse Name: Parvin Kim Position: [facility] RN Member Role: Primary Care Nurse Name: Stormy Mccray RN Position: [facility] RN Member Role: Primary Care Nurse Name: Terrell Long DO Position: [facility] Physician - Primary Care Member Role: PCP Address: Address: [address] [place] [id number] Name: Nara Bruno RN Position: S RN Member Role: Primary Care Nurse Name: Sepideh East RN Position: S RN Member Role: Primary Care Nurse Care Team Related Persons Name: NAZ WEINER
--- OUTSIDE RECORDS SUMMARY | 2023-07-31 11:54 | XMS_ITS | Continuity of Care Document ---
Author Organization [facility] Address [address] [place] [address]- Care Team Providers Care Fire Protection Engineering Technician Name Role Phone Imani AQUNIO, Beatrice Carbajal Primary Care Physician [phone] [place] [facility] [place] 07[place]/21 [facility] [address] [place], [place] [address] Allergies, Adverse Reactions, Alerts No Known Medication Allergies Substance Reaction Severity Status Other Environmental Allergy 1 Active 1Wool Medications atorvastatin 40 mg oral tablet 1 tablet = 40 mg, By Mouth, Daily, # 90 tablet, 1 Refills, Maintenance, 11/20/20 10:30:00 EDT, Tablet, [facility] #[id number], 172, cm, 08/01/20 13:59:00 EDT, Height Start Date: 11/20/20 Stop Date: 05/19/21 Status: Ordered Combivent Respimat 20 mcg-100 mcg/inh inhalation aerosol 1 puffs, Inhalation, 4 times a day, PRN Wheezing/Shortness of Breath, # 1 each, 3 Refills, Maintenance, 06/13/20 15:39:00 EST, Aerosol, [facility]/pharmacy #[id number], Partial fill upon patient request if the prescription is for a schedule II opioid drug., 1 puff... Start Date: 06/13/20 Status: Ordered duloxetine 30 mg oral enteric coated capsule 1 capsule, By Mouth, Daily, # 90 capsule, 0 Refills, Maintenance, 02/07/21 16:12:00 EDT, [facility] #[id number], 172, cm, 08/01/20 13:59:00 EDT, Height Start Date: 02/07/21 Stop Date: 05/08/21 Status: Ordered fenofibrate 54 mg oral tablet 1 tablet = 54 mg, By Mouth, Daily, # 30 tablet, 0 Refills, Maintenance, 05/10/21 11:35:00 EST, [facility] #[id number], Partial fill upon patient request if the [...] 05/29/21 13:15:00 EST, Route to Pharmacy Electronically, [facility] #[id number], 175, cm, 02/14/21 20:23:... Start Date: 05/29/21 Stop Date: 06/28/21 Status: Ordered lisinopril 20 mg oral tablet 1, tablet, By Mouth, Daily, # 30 tablet, Refills 5, Route to Pharmacy Electronically, [facility] #[id number], 175, cm, 02/14/21 20:23:00 EDT, Height, 77.5, kg, 02/14/21 20:23:00 EDT, Dry Weight Start Date: 02/23/21 Status: Ordered MetFORMIN (Eqv-Glucophage XR) 500 mg oral tablet, extended release 2 tablet = 1,000 mg, By Mouth, 2 times a day, # 120 tablet, 3 Refills, Maintenance, 04/15/21 15:52:00 EST, [facility] #[id number], Partial fill upon patient request if the prescription is for a schedule II opioid drug., 175, cm, 02/14/21 20:23:00... Start Date: 04/15/21 Stop Date: 08/13/21 Status: Ordered metFORMIN 500 mg oral tablet, extended release 2 tablet = 1,000 mg, By Mouth, Daily, # 60 tablet, 0 Refills, Maintenance, 04/11/21 12:42:00 EST, [facility] #[id number], Partial fill upon patient request if the [...] Refills, Maintenance, 02/08/21 9:48:00 EDT, ER Tablet, [facility] #[id number], Partialfill upon patient request if the prescription is... Start Date: 02/08/21 Stop Date: 08/07/21 Status: Ordered metoprolol 25 mg oral tablet, extended release 25 mg, 1, tablet, By Mouth, Daily, # 90 tablet, Refills 0, Tot. Refills 0, Maintenance, 05/10/21 11:34:00 EST, Route to Pharmacy Electronically, [facility] #[id number], 175, cm, 02/14/21 20:23:00 EDT, Height, 77.5, kg, 02/14/21 20:23:00 EDT, Dry... Start Date: 05/10/21 Status: Ordered metoprolol 25 mg oral tablet, extended release 25 mg, 1, tablet, By Mouth, Daily, # 90 tablet, Refills 1, Tot. Refills 1, Maintenance, 10/19/20 15:29:00 EDT, Route to Pharmacy Electronically, [facility] #[id number], 172, cm, 08/01/20 13:59:00 EDT, Height Start Date: 10/19/20 Stop Date: 04/17/21 Status: Ordered omeprazole 40 mg oral enteric coated capsule 1 capsule = 40 mg, By Mouth, Daily, # 90 capsule, 0 Refills, Maintenance, 04/24/21 14:31:00 EST, ECCapsule, [facility] #[id number], Partial fill upon patient request if the prescription is for a schedule II opioid drug., 175, cm, 02/14/21 20:23:... Start Date: 04/24/21 Status: Ordered QUEtiapine 100 mg oral tablet 1, tablet, By Mouth, Daily, bloodwork and appt needed, # 30 tablet, Refills 1, Tot. Refills 1, Maintenance, 02/08/21 9:46:00 EDT, Route to Pharmacy Electronically, [facility] #[id number], 172, cm, 08/01/20 13:59:00 EDT, Height Start Date: 02/08/21 Status: Ordered QUEtiapine 100 mg oral tablet See Instructions, TAKE 1 TABLET BY MOUTH DAILY BLOODWORK AND APPOINTMENT NEEDED, # 30 tablet, Refills 0, Tot. Refills 0, 05/29/21 13:15:00 EST, Instructions Replace Required Details, Route to Pharmacy Electronically, [facility] #[id number], 175,... Start Date: 05/29/21 Status: Ordered Suboxone [...] 05/10/21 11:34:00 EST, Route to Pharmacy Electronically, [facility] #[id number], Partial fill uponpatient request if the prescription [...]
--- OUTSIDE RECORDS SUMMARY | 2023-07-31 11:54 | XMS_ITS | Continuity of Care Document ---
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 Name Role Phone Lucho Cardona DO Primary Care Physician Encounter [facility] [place] Date(s): 04/11/19 - 04/18/19 [facility] [address] [place] [address] Encounter Diagnosis Schizoaffective disorder(Discharge Diagnosis) - 04/11/19 Knee pain(Discharge Diagnosis) - 04/11/19 Grief(Discharge Diagnosis) - 04/11/19 Abnormal echocardiogram(Discharge Diagnosis) - 04/11/19 Attending Physician: Lucho Cardona DO Allergies, Adverse Reactions, Alerts Substance Reaction Severity Status Other Environmental Allergy 1 Active 1Wool Medications aspirin 81 mg oral tablet, chewable 81 mg, 1, tablet, By Mouth, Daily, # 30 tablet, Refills 0, Maintenance, 04/11/19 13:37:11 EST Start Date: 04/11/19 Status: Ordered atorvastatin 40 mg oral tablet 1 tablet = 40 mg, By Mouth, Daily, # 30 tablet, 0 Refills, Maintenance, 04/11/19 13:37:25 EST, Tablet Start Date: 04/11/19 Status: Ordered duloxetine 30 mg oral enteric coated capsule 1 capsule = 30 mg, By Mouth, Daily, # 30 capsule, 1 Refills, Maintenance, 04/11/19 13:45:51 EST, Capsule, [facility][id number], 172, cm, 04/11/19 13:08:04 EST, Height Start Date: 04/11/19 Status: Ordered gabapentin 300 mg oral capsule 300 mg, 1, capsule, By Mouth, 3 times a day, masspat checked., # 90 capsule, Refills 2, Tot. Refills 2, Maintenance, 03/25/19 16:00:32 EST, Route to Pharmacy Electronically, [id number], [facility]/pharmacy #[id number] Start Date: 03/25/19 Status: Ordered ibuprofen 600 mg oral tablet 600 mg, 1, tablet, By Mouth, 3 times a day, PRN, for 30 days, # 90 tablet, Refills 1, Tot. Refills 1, Acute 05/24/19 15:59:57 EST, Pain , Moderate, 03/25/19 15:59:57 EST, Route to Pharmacy Electronically, [id number], [facility]/phar... Start Date: 03/25/19 Stop Date: 05/24/19 Status: Ordered lisinopril 5 mg oral tablet 5 mg, 1, tablet, By Mouth, Daily, # 30 tablet, Refills 5, Tot. Refills 5, Maintenance, 03/25/19 15:59:32 EST, Route to Pharmacy Electronically, [id number], [facility]/pharmacy #[id number] Start Date: 03/25/19 Status: Ordered metoprolol 25 mg oral tablet, extended release 25 mg, 1, tablet, By Mouth, Daily, # 30 tablet, Refills 0, Tot. Refills 0, Maintenance, 04/11/19 13:46:28 EST, Route to Pharmacy Electronically, [facility]/pharmacy #[id number], 172, cm, 04/11/19 13:08:04 EST, Height Start Date: 04/11/19 Status: Ordered QUEtiapine 100 mg oral tablet 100 mg, 1, tablet, By Mouth, Daily, # 30 tablet, Refills 1, Tot. Refills 1, Maintenance, 04/11/19 13:46:18 EST, Route to Pharmacy Electronically, [facility]/pharmacy #[id number], 172, cm, 04/11/19 13:08:04 EST, Height Start Date: 04/11/19 Status: Ordered Problem List Condition Effective Dates Status Health Status Inform ant HTN (hypertension)(Confirmed) Active Schizoaffective disorder(Confirmed) Active Diagnosis Diagnosis Type Effective Dates Health Status Clinical Service Informant Schizoaffective disorder Discharge Diagnosis 04/11/19 Knee pain Discharge Diagnosis 04/11/19 Grief Discharge Diagnosis 04/11/19 Abnormal echocardiogram Discharge Diagnosis 04/11/19 Vital Signs Most recent to oldest [Reference Range]: 1 Height 172 cm (04/11/19 1:08 PM) Oxygen Saturation [94-100 %] 97 % (04/11/19 1:08 PM) Pulse Rate [55-90 bpm] 90 bpm (04/11/19 1:08 PM) Blood Pressure [90-138/55-84 mm Hg] 116/ 78mm Hg (04/11/19 1:08 PM) Respiratory Rate [16-30 br/min] 18 br/mi n (04/11/19 1:08 PM) Temperature [96.8-100.4 DegF] 97.9 DegF (04/11/19 1:08 PM) Mode of Delivery (Oxygen) Room air (04/11/19 1:08 PM) Blood pressure sites Arm, left (04/11/19 1:08 PM) Temperature Route Oral (04/11/19 1:08 PM) Social History Social History Type Response Smoking Status 10 or more cigarette s (1/2 pack or more)/day in last 30 days; Other: about 2.5 ppd; entered on: 02/28/19 Sex
--- OUTSIDE RECORDS SUMMARY | 2023-07-31 11:54 | XMS_ITS | Continuity of Care Document ---
Author Organization [facility] Address [address] [place] [address]- Care Team Providers Care Back Up Worker Name Role Phone Imani AQUINO, Beatrice Carbajal Primary Care Physician [phone] Encounter [facility] [place] Date(s): 04/11/21 - 05/11/21 [facility] [address] [place] [address]- Allergies, Adverse Reactions, Alerts No Known Medication Allergies Substance Reaction Severity Status Other Environmental Allergy 1 Active 1Wool Medications atorvastatin 40 mg oral tablet 1 tablet = 40 mg, By Mouth, Daily, # 90 tablet, 1 Refills, Maintenance, 11/20/20 10:30:00 EDT, Tablet, [email or web address] #[id number], 172, cm, 08/01/20 13:59:00 EDT, Height Start Date: 11/20/20 Stop Date: 05/19/21 Status: Ordered Combivent Respimat 20 mcg-100 mcg/inh inhalation aerosol 1 puffs, Inhalation, 4 times a day, PRN Wheezing/Shortness of Breath, # 1 each, 3 Refills, Maintenance, 06/13/20 15:39:00 EST, Aerosol, [facility]/pharmacy #[id number], Partial fill upon patient request if the prescription is for a schedule II opioid drug., 1 puff... Start Date: 06/13/20 Status: Ordered duloxetine 30 mg oral enteric coated capsule 1 capsule, By Mouth, Daily, # 90 capsule, 0 Refills, Maintenance, 02/07/21 16:12:00 EDT, [email or web address] #[id number], 172, cm, 08/01/20 13:59:00 EDT, Height Start Date: 02/07/21 Stop Date: 05/08/21 Status: Ordered fenofibrate 54 mg oral tablet 1 tablet = 54 mg, By Mouth, Daily, # 30 tablet, 0 Refills, Maintenance, 05/10/21 11:35:00 EST, [email or web address] #[id number], Partial fill upon patient request if the [...] 04/11/21 12:42:00 EST, Route to Pharmacy Electronically, [email or web address] #[id number], 175, cm, 02/14/21 20:23:... Start Date: 04/11/21 Stop Date: 05/11/21 Status: Ordered lisinopril 20 mg oral tablet 1, tablet, By Mouth, Daily, # 30 tablet, Refills 5, Route to Pharmacy Electronically, [facility] #[id number], 175, cm, 02/14/21 20:23:00 EDT, Height, 77.5, kg, 02/14/21 20:23:00 EDT, Dry Weight Start Date: 02/23/21 Status: Ordered MetFORMIN (Eqv-Glucophage XR) 500 mg oral tablet, extended release 2 tablet = 1,000 mg, By Mouth, 2 times a day, # 120 tablet, 3 Refills, Maintenance, 04/15/21 15:52:00 EST, [email or web address] #[id number], Partial fill upon patient request if the prescription is for a schedule II opioid drug., 175, cm, 02/14/21 20:23:00... Start Date: 04/15/21 Stop Date: 08/13/21 Status: Ordered metFORMIN 500 mg oral tablet, extended release 2 tablet = 1,000 mg, By Mouth, Daily, # 60 tablet, 0 Refills, Maintenance, 04/11/21 12:42:00 EST, [email or web address] #[id number], Partial fill upon patient request if the [...] Refills, Maintenance, 02/08/21 9:48:00 EDT, ER Tablet, [email or web address] #[id number], Partialfill upon patient request if the prescription is... Start Date: 02/08/21 Stop Date: 08/07/21 Status: Ordered metoprolol 25 mg oral tablet, extended release 25 mg, 1, tablet, By Mouth, Daily, # 90 tablet, Refills 0, Tot. Refills 0, Maintenance, 05/10/21 11:34:00 EST, Route to Pharmacy Electronically, [email or web address] #[id number], 175, cm, 02/14/21 20:23:00 EDT, Height, 77.5, kg, 02/14/21 20:23:00 EDT, Dry... Start Date: 05/10/21 Status: Ordered metoprolol 25 mg oral tablet, extended release 25 mg, 1, tablet, By Mouth, Daily, # 90 tablet, Refills 1, Tot. Refills 1, Maintenance, 10/19/20 15:29:00 EDT, Route to Pharmacy Electronically, [email or web address] #[id number], 172, cm, 08/01/20 13:59:00 EDT, Height Start Date: 10/19/20 Stop Date: 04/17/21 Status: Ordered omeprazole 40 mg oral enteric coated capsule 1 capsule = 40 mg, By Mouth, Daily, # 90 capsule, 0 Refills, Maintenance, 04/24/21 14:31:00 EST, ECCapsule, [facility] #[id number], Partial fill upon patient request if the prescription is for a schedule II opioid drug., 175, cm, 02/14/21 20:23:... Start Date: 04/24/21 Status: Ordered QUEtiapine 100 mg oral tablet 1, tablet, By Mouth, Daily, bloodwork and appt needed, # 30 tablet, Refills 1, Tot. Refills 1, Maintenance, 02/08/21 9:46:00 EDT, Route to Pharmacy Electronically, [email or web address] #[id number], 172, cm, 08/01/20 13:59:00 EDT, Height Start Date: 02/08/21 Status: Ordered QUEtiapine 100 mg oral tablet See Instructions, TAKE 1 TABLET BY MOUTH DAILY BLOODWORK AND APPOINTMENT NEEDED, # 30 tablet, Refills 0, Tot. Refills 0, 04/11/21 12:42:00 EST, Instructions Replace Required Details, Route to Pharmacy Electronically, [email or web address] #[id number], 175,... Start Date: 04/11/21 Status: Ordered Suboxone [...] 05/10/21 11:34:00 EST, Route to Pharmacy Electronically, [email or web address] #[id number], Partial fill uponpatient request if the prescription [...]
--- OUTSIDE RECORDS SUMMARY | 2023-07-31 11:54 | XMS_ITS | Continuity of Care Document ---
Author Organization [facility] Address [address] [place] [address]- Care Team Providers Care Medical Assisting Program Director Name Role Phone Imani AQUINO, Beatrice Carbajal Primary Care Physician [place] [facility] [place](s[place] 07/03/21 - 08/02/21 [facility] [address] [place] [address]- Allergies, Adverse Reactions, Alerts No Known Medication Allergies Substance Reaction Severity Status Other Environmental Allergy 1 Active 1Wool Medications atorvastatin 40 mg oral tablet 1 tablet = 40 mg, By Mouth, Daily, # 90 tablet, 1 Refills, Maintenance, 11/20/20 10:30:00 EDT, Tablet, [facility] #[id number], 172, cm, 08/01/20 13:59:00 EDT, Height Start Date: 11/20/20 Stop Date: 05/19/21 Status: Ordered Combivent Respimat 20 mcg-100 mcg/inh inhalation aerosol 1 puffs, Inhalation, 4 times a day, PRN Wheezing/Shortness of Breath, # 1 each, 3 Refills, Maintenance, 06/13/20 15:39:00 EST, Aerosol, [facility]/pharmacy #[id number], Partial fill upon patient request if the prescription is for a schedule II opioid drug., 1 puff... Start Date: 06/13/20 Status: Ordered duloxetine 30 mg oral enteric coated capsule 1 capsule, By Mouth, Daily, # 90 capsule, 0 Refills, Maintenance, 02/07/21 16:12:00 EDT, [facility] #[id number], 172, cm, 08/01/20 13:59:00 EDT, Height Start Date: 02/07/21 Stop Date: 05/08/21 Status: Ordered fenofibrate 54 mg oral tablet 1 tablet = 54 mg, By Mouth, Daily, # 30 tablet, 0 Refills, Maintenance, 05/10/21 11:35:00 EST, [facility] #[id number], Partial fill upon patient request if the [...] 05/29/21 13:15:00 EST, Route to Pharmacy Electronically, [facility] #[id number], 175, cm, 02/14/21 20:23:... Start Date: 05/29/21 Stop Date: 06/28/21 Status: Ordered lisinopril 20 mg oral tablet 1, tablet, By Mouth, Daily, # 30 tablet, Refills 5, Route to Pharmacy Electronically, [facility] #[id number], 175, cm, 02/14/21 20:23:00 EDT, Height, 77.5, kg, 02/14/21 20:23:00 EDT, Dry Weight Start Date: 02/23/21 Status: Ordered MetFORMIN (Eqv-Glucophage XR) 500 mg oral tablet, extended release 2 tablet = 1,000 mg, By Mouth, 2 times a day, # 120 tablet, 3 Refills, Maintenance, 04/15/21 15:52:00 EST, [facility] #[id number], Partial fill upon patient request if the prescription is for a schedule II opioid drug., 175, cm, 02/14/21 20:23:00... Start Date: 04/15/21 Stop Date: 08/13/21 Status: Ordered metFORMIN 500 mg oral tablet, extended release 2 tablet = 1,000 mg, By Mouth, Daily, # 60 tablet, 0 Refills, Maintenance, 04/11/21 12:42:00 EST, [facility] #[id number], Partial fill upon patient request if the [...] Refills, Maintenance, 02/08/21 9:48:00 EDT, ER Tablet, [facility] #[id number], Partialfill upon patient request if the prescription is... Start Date: 02/08/21 Stop Date: 08/07/21 Status: Ordered metoprolol 25 mg oral tablet, extended release 25 mg, 1, tablet, By Mouth, Daily, # 90 tablet, Refills 0, Tot. Refills 0, Maintenance, 05/10/21 11:34:00 EST, Route to Pharmacy Electronically, [facility] #[id number], 175, cm, 02/14/21 20:23:00 EDT, Height, 77.5, kg, 02/14/21 20:23:00 EDT, Dry... Start Date: 05/10/21 Status: Ordered metoprolol 25 mg oral tablet, extended release 25 mg, 1, tablet, By Mouth, Daily, # 90 tablet, Refills 1, Tot. Refills 1, Maintenance, 10/19/20 15:29:00 EDT, Route to Pharmacy Electronically, [facility] #[id number], 172, cm, 08/01/20 13:59:00 EDT, Height Start Date: 10/19/20 Stop Date: 04/17/21 Status: Ordered omeprazole 40 mg oral enteric coated capsule 1 capsule = 40 mg, By Mouth, Daily, # 90 capsule, 0 Refills, Maintenance, 04/24/21 14:31:00 EST, ECCapsule, [facility] #[id number], Partial fill upon patient request if the prescription is for a schedule II opioid drug., 175, cm, 02/14/21 20:23:... Start Date: 04/24/21 Status: Ordered QUEtiapine 100 mg oral tablet 1, tablet, By Mouth, Daily, bloodwork and appt needed, # 30 tablet, Refills 1, Tot. Refills 1, Maintenance, 02/08/21 9:46:00 EDT, Route to Pharmacy Electronically, [facility] #[id number], 172, cm, 08/01/20 13:59:00 EDT, Height Start Date: 02/08/21 Status: Ordered QUEtiapine 100 mg oral tablet See Instructions, TAKE 1 TABLET BY MOUTH DAILY BLOODWORK AND APPOINTMENT NEEDED, # 30 tablet, Refills 0, Tot. Refills 0, 05/29/21 13:15:00 EST, Instructions Replace Required Details, Route to Pharmacy Electronically, [facility] #[id number], 175,... Start Date: 05/29/21 Status: Ordered Suboxone [...] 05/10/21 11:34:00 EST, Route to Pharmacy Electronically, [facility] #[id number], Partial fill uponpatient request if the prescription [...]
--- OUTSIDE RECORDS SUMMARY | 2023-07-31 11:54 | XMS_ITS | Continuity of Care Document ---
Author Organization [facility] Address [address] [place] [address]- Care Team Providers Care Mounter Saxophones Name Role Phone Glenn AQUINO, Danielle Primary Care Physician [phone] [place] [facility] [place] 03/17/21 [facility] [address] [place] [address]- Allergies, Adverse Reactions, Alerts No Known Medication Allergies Substance Reaction Severity Status Other Environmental Allergy 1 Active 1Wool Medications atorvastatin 40 mg oral tablet 1 tablet = 40 mg, By Mouth, Daily, # 90 tablet, 1 Refills, Maintenance, 11/20/20 10:30:00 EDT, Tablet, [facility] #[id number], 172, cm, 08/01/20 13:59:00 EDT, Height Start Date: 11/20/20 Stop Date: 05/19/21 Status: Ordered Combivent Respimat 20 mcg-100 mcg/inh inhalation aerosol 1 puffs, Inhalation, 4 times a day, PRN Wheezing/Shortness of Breath, # 1 each, 3 Refills, Maintenance, 06/13/20 15:39:00 EST, Aerosol, [id number], Partial fill upon patient request if the prescription is for a schedule II opioid drug., 1 puff... Start Date: 06/13/20 Status: Ordered duloxetine 30 mg oral enteric coated capsule 1 capsule, By Mouth, Daily, # 90 capsule, 0 Refills, Maintenance, 02/07/21 16:12:00 EDT, [facility] #[id number], 172, cm, 08/01/20 13:59:00 EDT, Height Start Date: 02/07/21 Stop Date: 05/08/21 Status: Ordered gabapentin 300 mg oral capsule 600 mg, 2, capsule, By Mouth, 3 times a day, PLEASE CALL OFFICE FOR RESCHEDULE APPT., # 180 capsule, Refills 2, Tot. Refills 2, Maintenance, 12/11/20 15:07:00 EDT, Route to Pharmacy Electronically, [facility] #[id number], 172, cm, 08/01/20 13:59:... Start Date: 12/11/20 Stop Date: 03/11/21 Status: Ordered lisinopril 20 mg oral tablet 1, tablet, By Mouth, Daily, # 30 tablet, Refills 5, Route to Pharmacy Electronically, [facility] #[id number], 175, cm, 02/14/21 20:23:00 EDT, Height, 77.5, kg, 02/14/21 20:23:00 EDT, Dry Weight Start Date: 02/23/21 Status: Ordered metFORMIN 750 mg oral tablet, extended release 1 tablet = 750 mg, By Mouth, 2 times a day, Call for appt SWAPNIL before next refill with food, # 60 tablet, 1 Refills, Maintenance, 02/08/21 9:48:00 EDT, ER Tablet, [facility] #[id number], Partialfill upon patient request if the prescription is... Start Date: 02/08/21 Stop Date: 08/07/21 Status: Ordered metoprolol 25 mg oral tablet, extended release 25 mg, 1, tablet, By Mouth, Daily, # 90 tablet, Refills 1, Tot. Refills 1, Maintenance, 10/19/20 15:29:00 EDT, Route to Pharmacy Electronically, [facility] #[id number], 172, cm, 08/01/20 13:59:00 EDT, Height Start [...] 02/08/21 9:46:00 EDT, Route to Pharmacy Electronically, [facility] #[id number], 172, cm, 08/01/20 13:59:00 EDT, Height Start Date: 02/08/21 Status: Ordered QUEtiapine 100 mg oral tablet See Instructions, TAKE 1 TABLET BY MOUTH DAILY BLOODWORK AND APPOINTMENT NEEDED, # 30 tablet, Refills 0, Instructions Replace Required Details, Route to Pharmacy Electronically, [facility] #[id number], 172, cm, 08/01/20 13:59:00 EDT, Height Start Date: 02/08/21 Status: Ordered Suboxone 2 mg-0.5 mg sublingual [...]
--- OUTSIDE RECORDS SUMMARY | 2023-07-31 11:54 | XMS_ITS | Continuity of Care Document ---
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 Name Role Phone Lucho Cardona DO Primary Care Physician Encounter [facility] [place] Date(s): 06/02/19 - 06/09/19 [facility] [address] [place] [address]- [place] Encounter Diagnosis Elevated glucose(Discharge Diagnosis) - 06/02/19 OA (osteoarthritis)(Discharge Diagnosis) - 06/02/19 Toe pain, left(Discharge Diagnosis) - 06/02/19 Attending Physician: Lucho Cardona DO Allergies, Adverse Reactions, Alerts No Known Medication Allergies Substance Reaction Severity Status Other Environmental Allergy 1 Active 1Wool Medications aspirin 81 mg oral tablet, chewable 81 mg, 1, tablet, By Mouth, Daily, # 30 tablet, Refills 0, Maintenance, 04/11/19 13:37:11 EST Start Date: 04/11/19 Status: Ordered atorvastatin 40 mg oral tablet 1 tablet = 40 mg, By Mouth, Daily, # 30 tablet, 5 Refills, Maintenance, 05/09/19 10:34:00 EST, Tablet, [id number], 172, cm, 05/09/19 10:09:00 EST, Height Start Date: 05/09/19 Status: Ordered duloxetine 30 mg oral enteric [...] 03/25/19 16:00:32 EST, Route to Pharmacy Electronically, [id number], [facility]/pharmacy #[id number] Start Date: 03/25/19 Status: Ordered lisinopril 5 mg oral tablet 5 mg, 1, tablet, By Mouth, Daily, # 30 tablet, Refills 5, Tot. Refills 5, Maintenance, 05/09/19 10:34:00 EST, Route to Pharmacy Electronically, [facility]/pharmacy #[id number], 172, cm, 05/09/19 10:09:00 EST, Height Start Date: 05/09/19 Status: Ordered metoprolol 25 mg oral tablet, extended release 25 mg, 1, tablet, By Mouth, Daily, # 30 tablet, Refills 5, Tot. Refills 5, Maintenance, 05/09/19 10:34:00 EST, Route to Pharmacy Electronically, [facility]/pharmacy #[id number], 172, cm, 05/09/19 10:09:00 EST, Height Start Date: 05/09/19 Status: Ordered QUEtiapine 100 mg oral tablet 100 mg, 1, tablet, By Mouth, Daily, # 30 tablet, Refills 1, Tot. Refills 1, Maintenance, 04/11/19 13:46:18 EST, Route to Pharmacy Electronically, [facility]/pharmacy #[id number], 172, cm, 04/11/19 13:08:04 EST, Height Start Date: 04/11/19 Status: Ordered Problem List Condition Effective Dates Status Health Status Inform ant HTN (hypertension)(Confirmed) Active OA (osteoarthritis)(Confirmed) Active Schizoaffective disorder(Confirmed) Active Diagnosis Diagnosis Type Effective Dates Health Status Cl inical Service Informant OA (osteoarthritis) Discharge Diagnosis 06/02/19 Toe pain, left Discharge Diagnosis 06/02/19 Elevated glucose Discharge Diagnosis 06/02/19 Vital Signs Most recent to oldest [Reference Range]: 1 Height 172 cm (06/02/19 8:30 AM) Weight 79.0 kg (06/02/19 8:30 AM) Oxygen Saturation [94-100 %] 97 % (06/02/19 8:30 AM) Pulse Rate [55-90 bpm] 92 bpm *H* (06/02/19 8:30 AM) Body Mass Index [18.5-24.99] 26.7 *H* (2/6/20 8:30 AM) Blood Pressure [90-138/55-84 mm Hg] 142/ 82mm Hg *H* (06/02/19 8:30 AM) Blood pressure sites Arm, left (06/02/19 8:30 AM) Social History Social History Type Response Smoking Status 10 or more cigarette s (1/2 pack or more)/day in last 30 days; Other: about 2.5 ppd; entered on: 02/28/19 Sex
--- OUTSIDE RECORDS SUMMARY | 2023-07-31 11:54 | XMS_ITS | Continuity of Care Document ---
Author Organization [facility] Address [address] [place] [address]- Care Team Providers Care Retread Supervisor Name Role Phone Ethan Terrell Primary Care Physician [place] [facility] [id number] Date(s): 11/04/22 - 12/20/22 [facility] [address] [place], [place] [address] Attending Physician: Chrissie AQUINO, Lorna Carbajal Allergies, Adverse Reactions, Alerts No Known Medication [...] prescription is for aschedule II opioid drug., 165, cm, 10/01/22 8:40:00... Start Date: 10/01/22 Status: Ordered [...] schedule II opioid drug., 165, cm, 10/01/22 8:... Start Date: 10/01/22 Status: Ordered SEROquel 25 mg oral tablet 50 mg, 2, tablet, By Mouth, Daily in AM, # 60 tablet, Refills 0, Tot. Refills 0, Maintenance, 10/01/22 11:12:00 EDT, Print Requisition, Partial fill upon patient request if the prescription is for a schedule II opioid drug., 165, cm, 10/01/22 8:40:00... Start Date: 10/01/22 Status: Ordered sertraline 50 mg oral tablet 2 tablet = 100 mg, By Mouth, Daily, # 30 tablet, 0 Refills, Maintenance, 10/01/22 11:09:00 EDT, Tablet, Partial fill upon patient request if the prescription is for a schedule II opioid drug., 165, cm, 10/01/22 8:40:00 EDT, Height, 86, kg, 09/23/22 [...] compression fracture of L1 vertebra Confirmed Active Social History Social History Type Response Tobacco Use: 2 PPD. Interest ed in cessation: No. No, Other: about 2.5 ppd. Type: Cigarettes. Sex Patient Care team information Care Team Personnel Name: Isa Lake RN Position: S RN Member Role: Primary Care Nurse Name: Janet Moreno LPN Position: S RN Member Role: Primary Care Nurse Name: Luis Armando Alford RN Position: [facility] RN Member Role: Primary Care Nurse Name: Gaye Motley RN Position: S RN Member Role: Primary Care Nurse Name: Parvin Kim Position: [facility] RN Member Role: Primary Care Nurse Name: Stormy Mccray RN Position: [facility] RN Member Role: Primary Care Nurse Name: Terrell Long DO Position: [facility] Physician - Primary Care Member Role: PCP Address: Address: [address] [place] [id number] Name: Nara Bruno RN Position: S RN Member Role: Primary Care Nurse Name: Sepideh East RN Position: S RN Member Role: Primary Care Nurse Care Team Related Persons Name: NAZ WEINER
--- OUTSIDE RECORDS SUMMARY | 2023-07-31 11:54 | XMS_ITS | Continuity of Care Document ---
Author Organization [facility] Address [address] [place] [address]- Care Team Providers Care Director Of Retail Name Role Phone Glenn AQUINO, Danielle Primary Care Physician [phone] [place] [facility] [place] Date(s): 12/11/20 - 01/10/21 [facility] [address] [place] [address]- Allergies, Adverse Reactions, Alerts No Known Medication Allergies Substance Reaction Severity Status Other Environmental Allergy 1 Active 1Wool Medications atorvastatin 40 mg oral tablet 1 tablet = 40 mg, By Mouth, Daily, # 90 tablet, 1 Refills, Maintenance, 11/20/20 10:30:00 EDT, Tablet, [facility] ([facility] #[id number], 172, cm, 08/01/20 13:59:00 EDT, Height Start Date: 11/20/20 Stop Date: 05/19/21 Status: Ordered Combivent Respimat 20 mcg-100 mcg/inh inhalation aerosol 1 puffs, Inhalation, 4 times a day, PRN Wheezing/Shortness of Breath, # 1 each, 3 Refills, Maintenance, 06/13/20 15:39:00 EST, Aerosol, [facility]/pharmacy #[id number], Partial fill upon patient request if the prescription is for a schedule II opioid drug., 1 puff... Start Date: 06/13/20 Status: Ordered duloxetine 30 mg oral enteric coated capsule 1 capsule, By Mouth, Daily, # 90 capsule, 0 Refills, Maintenance, 11/09/20 12:46:00 EDT, [facility] ([facility] #[id number], 172, cm, 08/01/20 13:59:00 EDT, Height Start Date: 11/09/20 Stop Date: 02/07/21 Status: Ordered gabapentin 300 mg oral capsule 600 mg, 2, capsule, By Mouth, 3 times a day, PLEASE CALL OFFICE FOR RESCHEDULE APPT., # 180 capsule, Refills 2, Tot. Refills 2, Maintenance, 12/11/20 15:07:00 EDT, Route to Pharmacy Electronically, [facility] #[id number], 172, cm, 08/01/20 13:59:... Start Date: 12/11/20 Stop Date: 03/11/21 Status: Ordered lisinopril 20 mg oral tablet 20 mg, 1, tablet, By Mouth, Daily, # 90 tablet, Refills 0, Tot. Refills 0, Maintenance, 11/09/20 12:46:00 EDT, Route to Pharmacy Electronically, [facility] #[id number], Partial fill upon patientrequest if the prescription is for a schedule II op... Start Date: 11/09/20 Stop Date: 02/07/21 Status: Ordered metFORMIN 750 mg oral tablet, extended release 1 tablet = 750 mg, By Mouth, 2 times a day, with food, # 180 tablet, 1 Refills, Maintenance, 07/12/20 7:44:00 EDT, ER Tablet, [facility]/pharmacy #[id number], Partial fill upon patient request if the prescriptionis for a schedule II opioid drug., 172, cm, ... Start Date: 07/12/20 Stop Date: 01/08/21 Status: Ordered metoprolol 25 mg oral tablet, extended release 25 mg, 1, tablet, By Mouth, Daily, # 90 tablet, Refills 1, Tot. Refills 1, Maintenance, 10/19/20 15:29:00 EDT, Route to Pharmacy Electronically, [facility] #[id number], 172, cm, 08/01/20 13:59:00 EDT, Height Start [...] 10/12/20 14:18:00 EDT, [facility], [id number], 172, cm, 08/01/20 13:59:00 EDT, Height Start [...]
--- OUTSIDE RECORDS SUMMARY | 2023-07-31 11:54 | XMS_ITS | Continuity of Care Document ---
Author Organization [facility] Address [address] [place] [address]- Care Team Providers Care Awning Craftsperson Name Role Phone Glenn AQUINO, Danielle Primary Care Physician Encounter 08/15/20 - 08/22/20 [facility] [address], [address] [place] [address]- Attending Physician: Danielle Elizabeth NP Admitting Physician: Glenn AQUINO, Danielle Referring Physician: Glenn AQUINO, Danielle Allergies, Adverse Reactions, Alerts No Known Medication [...] Maintenance,07/11/20 15:14:00 EDT, Route to Pharmacy Electronically, [facility]/pharmacy #[id number], 172, cm, 07/11/20 14:49:00 EDT, Height Start Date: 07/11/20 Stop Date: 09/09/20 Status: Ordered lisinopril 20 mg oral tablet 20 mg, 1, tablet, By Mouth, Daily, # 90 tablet, Refills 1, Tot. Refills 1, Maintenance, 07/11/20 15:12:00 EDT, Route to Pharmacy Electronically, [facility]/pharmacy #[id number], Partial fill upon patient request if the prescription is for a schedule II opioid drug... Start Date: 07/11/20 Stop Date: 01/07/21 Status: Ordered metFORMIN 750 mg oral tablet, extended release 1 tablet = 750 mg, By Mouth, 2 times a day, with food, # 180 tablet, 1 Refills, Maintenance, 07/12/20 7:44:00 EDT, ER Tablet, [facility]/pharmacy #[id number], Partial fill upon patient request if the prescriptionis for a schedule II opioid drug., 172, cm, ... Start Date: 07/12/20 Stop Date: 01/08/21 Status: Ordered metoprolol 25 mg oral tablet, extended release 25 mg, 1, tablet, By Mouth, Daily, # 90 tablet, Refills 1, Tot. Refills 1, Maintenance, 07/16/20 12:36:00 EDT, Route to Pharmacy Electronically, [facility]/pharmacy #[id number], 172, cm, 07/11/20 15:26:00 EDT, [...] 07/16/20 12:36:00 EDT, Route to Pharmacy Electronically, [facility]/pharmacy #[id number], 172, cm, 07/11/20 15:26:00 EDT, [...]
--- OUTSIDE RECORDS SUMMARY | 2023-07-31 11:54 | XMS_ITS | Continuity of Care Document ---
Author Organization [facility] Address [address] [place] [address]- Care Team Providers Care Superintendent Commissary Name Role Phone Glenn AQUINO, Danielle Primary Care Physician Encounter [facility] [place] Date(s): 04/09/20 - 04/16/20 [facility] [address] [place] [address]- Encounter Diagnosis Schizoaffective disorder(Discharge Diagnosis) - 04/09/20 Hyperlipidemia(Discharge Diagnosis) - 04/09/20 Gastritis(Discharge Diagnosis) - 04/09/20 OA (osteoarthritis)(Discharge Diagnosis) - 04/09/20 Hyperglycemia(Discharge Diagnosis) - 04/09/20 Major depression, recurrent(Discharge Diagnosis) - 04/09/20 Duodenal ulcer(Discharge Diagnosis) - 04/09/20 HTN (hypertension)(Discharge Diagnosis) - 04/09/20 Smoking(Discharge Diagnosis) - 04/09/20 History of lung cancer(Discharge Diagnosis) - 04/09/20 Attending Physician: Danielle Elizabeth NP Allergies, Adverse Reactions, Alerts No Known Medication Allergies Substance Reaction Severity Status Other Environmental Allergy 1 Active 1Wool Medications atorvastatin 40 mg oral tablet 1 tablet = 40 mg, By Mouth, Daily, # 90 tablet, 0 Refills, Maintenance, 04/09/20 15:40:00 EST, Tablet, [id number], 172, cm, 04/09/20 13:00:00 EST, Height Start Date: 04/09/20 Stop Date: 07/08/20 Status: Ordered duloxetine 30 mg oral enteric [...] 04/09/20 15:39:00 EST, [id number] 172, cm, 04/09/20 13:00:00 EST, Height Start Date: 04/09/20 Stop Date: 07/08/20 Status: Ordered lisinopril 5 mg oral tablet 5 mg, 1, tablet, By Mouth, Daily, # 90 tablet, Refills 0, Tot. Refills 0, Maintenance, 04/09/20 15:38:00 EST, [id number], 172, cm, 04/09/20 13:00:00 EST, Height Start Date: 04/09/20 Stop Date: 07/08/20 Status: Ordered metoprolol 25 mg oral tablet, extended release 25 mg, 1, tablet, By Mouth, Daily, # 90 tablet, Refills 0, Tot. Refills 0, Maintenance, 04/09/20 15:37:00 EST, [id number], 172, cm, 04/09/20 13:00:00 EST, Height [...] 04/09/20 15:39:00 EST, [id number], 172, cm, 04/09/20 13:00:00 EST, Height Start Date: 04/09/20 Stop Date: 07/08/20 Status: Ordered Tylenol Extra Strength 500 mg oral tablet 2 tablet = 1,000 mg, By Mouth, 2 times a day, PRN Pain, for 90 days, # 120 tablet, 0 Refills, Acute07/08/20 15:41:00 EDT, 04/09/20 15:41:00 EST, [facility]/pharmacy #[id number], Partial fill upon patient requestif the prescription is for a schedule II opioid jacob... Start Date: 04/09/20 Stop Date: 07/08/20 Status: Ordered Problem List Condition Effective Dates Status Health Status Inform ant Gastritis(Confirmed) Active History of lung cancer(Confirmed) Active Hyperglycemia(Confirmed) Active Hyperlipidemia(Confirmed) Active HTN (hypertension)(Confirmed) Active OA (osteoarthritis)(Confirmed) Active Major depression, recurrent(Confirmed) Active Schizoaffective disorder(Confirmed) Active Smoking(Confirmed) Active Duodenal ulcer(Confirmed) Active Diagnosis Diagnosis Type Effective Dates Health Status Clinical Service Informant Schizoaffective disorder Discharge Diagnosis 04/09/20 HTN (hypertension) Discharge Diagnosis 04/09/20 OA (osteoarthritis) Discharge Diagnosis 04/09/20 Hyperglycemia Discharge Diagnosis 04/09/20 Gastritis Discharge Diagnosis 04/09/20 Major depression, recurrent Discharge Diagnosis 04/09/20 Duodenal ulcer Discharge Diagnosis 04/09/20 Hyperlipidemia Discharge Diagnosis 04/09/20 Smoking Discharge Diagnosis 04/09/20 History of lung cancer Discharge Diagnosis 04/09/20 Vital Signs Most recent to oldest [Reference Range]: 1 Height 172 cm (04/09/20 1:00 PM) Social History Social History Type Response Smoking Status 10 or more cigarette s (1/2 pack or more)/day in last 30 days; Other: about 2.5 ppd; entered on: 02/28/19 Sex
--- OUTSIDE RECORDS SUMMARY | 2023-07-31 11:54 | XMS_ITS | Continuity of Care Document ---
Author Organization [facility] Address [address] [place] [address]- Care Team Providers Care Roofing Subcontractor Name Role Phone Imani AQUINO, Beatrice Carbajal Primary Care Physician [phone] [place] [facility] [place](s[place] 07/17/21 - 08/16/21 [facility] [address] [place] [address]- Allergies, Adverse Reactions, Alerts No Known Medication Allergies Substance Reaction Severity Status Other Environmental Allergy 1 Active 1Wool Medications atorvastatin 40 mg oral tablet 1 tablet = 40 mg, By Mouth, Daily, # 90 tablet, 1 Refills, Maintenance, 11/20/20 10:30:00 EDT, Tablet, [facility] #[id number], 172, cm, 08/01/20 13:59:00 EDT, Height Start Date: 11/20/20 Stop Date: 05/19/21 Status: Ordered Combivent Respimat 20 mcg-100 mcg/inh inhalation aerosol 1 puffs, Inhalation, 4 times a day, PRN Wheezing/Shortness of Breath, # 1 each, 3 Refills, Maintenance, 06/13/20 15:39:00 EST, Aerosol, [facility]/pharmacy #[id number], Partial fill upon patient request if the prescription is for a schedule II opioid drug., 1 puff... Start Date: 06/13/20 Status: Ordered duloxetine 30 mg oral enteric coated capsule 1 capsule, By Mouth, Daily, # 90 capsule, 0 Refills, Maintenance, 02/07/21 16:12:00 EDT, [facility] #[id number], 172, cm, 08/01/20 13:59:00 EDT, Height Start Date: 02/07/21 Stop Date: 05/08/21 Status: Ordered fenofibrate 54 mg oral tablet 1 tablet = 54 mg, By Mouth, Daily, # 30 tablet, 0 Refills, Maintenance, 05/10/21 11:35:00 EST, [facility] #[id number], Partial fill upon patient request if the [...] 05/29/21 13:15:00 EST, Route to Pharmacy Electronically, [facility] #[id number], 175, cm, 02/14/21 20:23:... Start Date: 05/29/21 Stop Date: 06/28/21 Status: Ordered lisinopril 20 mg oral tablet 1, tablet, By Mouth, Daily, # 30 tablet, Refills 5, Route to Pharmacy Electronically, [facility] #[id number], 175, cm, 02/14/21 20:23:00 EDT, Height, 77.5, kg, 02/14/21 20:23:00 EDT, Dry Weight Start Date: 02/23/21 Status: Ordered MetFORMIN (Eqv-Glucophage XR) 500 mg oral tablet, extended release 2 tablet = 1,000 mg, By Mouth, 2 times a day, # 120 tablet, 3 Refills, Maintenance, 04/15/21 15:52:00 EST, [facility] #[id number], Partial fill upon patient request if the prescription is for a schedule II opioid drug., 175, cm, 02/14/21 20:23:00... Start Date: 04/15/21 Stop Date: 08/13/21 Status: Ordered metFORMIN 500 mg oral tablet, extended release 2 tablet = 1,000 mg, By Mouth, Daily, # 60 tablet, 0 Refills, Maintenance, 04/11/21 12:42:00 EST, [facility] #[id number], Partial fill upon patient request if the [...] Refills, Maintenance, 02/08/21 9:48:00 EDT, ER Tablet, [facility] #[id number], Partialfill upon patient request if the prescription is... Start Date: 02/08/21 Stop Date: 08/07/21 Status: Ordered metoprolol 25 mg oral tablet, extended release 25 mg, 1, tablet, By Mouth, Daily, # 90 tablet, Refills 0, Tot. Refills 0, Maintenance, 05/10/21 11:34:00 EST, Route to Pharmacy Electronically, [facility] #[id number], 175, cm, 02/14/21 20:23:00 EDT, Height, 77.5, kg, 02/14/21 20:23:00 EDT, Dry... Start Date: 05/10/21 Status: Ordered metoprolol 25 mg oral tablet, extended release 25 mg, 1, tablet, By Mouth, Daily, # 90 tablet, Refills 1, Tot. Refills 1, Maintenance, 10/19/20 15:29:00 EDT, Route to Pharmacy Electronically, [facility] #[id number], 172, cm, 08/01/20 13:59:00 EDT, Height Start Date: 10/19/20 Stop Date: 04/17/21 Status: Ordered omeprazole 40 mg oral enteric coated capsule 1 capsule = 40 mg, By Mouth, Daily, # 90 capsule, 0 Refills, Maintenance, 04/24/21 14:31:00 EST, ECCapsule, [facility] #[id number], Partial fill upon patient request if the prescription is for a schedule II opioid drug., 175, cm, 02/14/21 20:23:... Start Date: 04/24/21 Status: Ordered QUEtiapine 100 mg oral tablet 1, tablet, By Mouth, Daily, bloodwork and appt needed, # 30 tablet, Refills 1, Tot. Refills 1, Maintenance, 02/08/21 9:46:00 EDT, Route to Pharmacy Electronically, [facility] #[id number], 172, cm, 08/01/20 13:59:00 EDT, Height Start Date: 02/08/21 Status: Ordered QUEtiapine 100 mg oral tablet See Instructions, TAKE 1 TABLET BY MOUTH DAILY BLOODWORK AND APPOINTMENT NEEDED, # 30 tablet, Refills 0, Tot. Refills 0, 05/29/21 13:15:00 EST, Instructions Replace Required Details, Route to Pharmacy Electronically, [facility] #[id number], 175,... Start Date: 05/29/21 Status: Ordered Suboxone [...] 05/10/21 11:34:00 EST, Route to Pharmacy Electronically, [facility] #[id number], Partial fill uponpatient request if the prescription [...]
--- OUTSIDE RECORDS SUMMARY | 2023-07-31 11:54 | XMS_ITS | Continuity of Care Document ---
Author Organization [facility] Address [address] [place] [address]- Care Team Providers Care Medical Center Representative Name Role Phone Imani AQUINO, Beatrice Carbajal Primary Care Physician Encounter [facility] Date(s): 06/07/21 - 07/07/21 [facility] [address], [place] [address] Allergies, Adverse Reactions, Alerts No Known Medication Allergies Substance Reaction Severity Status Other Environmental Allergy 1 Active 1Wool Medications atorvastatin 40 mg oral tablet 1 tablet = 40 mg, By Mouth, Daily, # 90 tablet, 1 Refills, Maintenance, 11/20/20 10:30:00 EDT, Tablet, [facility][id number], 172, cm, 08/01/20 13:59:00 EDT, Height Start Date: 11/20/20 Stop Date: 05/19/21 Status: Ordered Combivent Respimat 20 mcg-100 mcg/inh inhalation aerosol 1 puffs, Inhalation, 4 times a day, PRN Wheezing/Shortness of Breath, # 1 each, 3 Refills, Maintenance, 06/13/20 15:39:00 EST, Aerosol, [facility]/pharmacy #[id number], Partial fill upon patient request if the prescription is for a schedule II opioid drug., 1 puff... Start Date: 06/13/20 Status: Ordered duloxetine 30 mg oral enteric coated capsule 1 capsule, By Mouth, Daily, # 90 capsule, 0 Refills, Maintenance, 02/07/21 16:12:00 EDT, [facility] #[id number], 172, cm, 08/01/20 13:59:00 EDT, Height Start Date: 02/07/21 Stop Date: 05/08/21 Status: Ordered fenofibrate 54 mg oral tablet 1 tablet = 54 mg, By Mouth, Daily, # 30 tablet, 0 Refills, Maintenance, 05/10/21 11:35:00 EST, [facility] #[id number], Partial fill upon patient request if the [...] 05/29/21 13:15:00 EST, Route to Pharmacy Electronically, [facility] #[id number], 175, cm, 02/14/21 20:23:... Start Date: 05/29/21 Stop Date: 06/28/21 Status: Ordered lisinopril 20 mg oral tablet 1, tablet, By Mouth, Daily, # 30 tablet, Refills 5, Route to Pharmacy Electronically, [facility] #[id number], 175, cm, 02/14/21 20:23:00 EDT, Height, 77.5, kg, 02/14/21 20:23:00 EDT, Dry Weight Start Date: 02/23/21 Status: Ordered MetFORMIN (Eqv-Glucophage XR) 500 mg oral tablet, extended release 2 tablet = 1,000 mg, By Mouth, 2 times a day, # 120 tablet, 3 Refills, Maintenance, 04/15/21 15:52:00 EST, [facility] #[id number], Partial fill upon patient request if the prescription is for a schedule II opioid drug., 175, cm, 02/14/21 20:23:00... Start Date: 04/15/21 Stop Date: 08/13/21 Status: Ordered metFORMIN 500 mg oral tablet, extended release 2 tablet = 1,000 mg, By Mouth, Daily, # 60 tablet, 0 Refills, Maintenance, 04/11/21 12:42:00 EST, [facility] #[id number], Partial fill upon patient request if the [...] Refills, Maintenance, 02/08/21 9:48:00 EDT, ER Tablet, [facility] #[id number], Partialfill upon patient request if the prescription is... Start Date: 02/08/21 Stop Date: 08/07/21 Status: Ordered metoprolol 25 mg oral tablet, extended release 25 mg, 1, tablet, By Mouth, Daily, # 90 tablet, Refills 0, Tot. Refills 0, Maintenance, 05/10/21 11:34:00 EST, Route to Pharmacy Electronically, [facility] #[id number], 175, cm, 02/14/21 20:23:00 EDT, Height, 77.5, kg, 02/14/21 20:23:00 EDT, Dry... Start Date: 05/10/21 Status: Ordered metoprolol 25 mg oral tablet, extended release 25 mg, 1, tablet, By Mouth, Daily, # 90 tablet, Refills 1, Tot. Refills 1, Maintenance, 10/19/20 15:29:00 EDT, Route to Pharmacy Electronically, [facility] #[id number], 172, cm, 08/01/20 13:59:00 EDT, Height Start Date: 10/19/20 Stop Date: 04/17/21 Status: Ordered omeprazole 40 mg oral enteric coated capsule 1 capsule = 40 mg, By Mouth, Daily, # 90 capsule, 0 Refills, Maintenance, 04/24/21 14:31:00 EST, ECCapsule, [facility] #[id number], Partial fill upon patient request if the prescription is for a schedule II opioid drug., 175, cm, 02/14/21 20:23:... Start Date: 04/24/21 Status: Ordered QUEtiapine 100 mg oral tablet 1, tablet, By Mouth, Daily, bloodwork and appt needed, # 30 tablet, Refills 1, Tot. Refills 1, Maintenance, 02/08/21 9:46:00 EDT, Route to Pharmacy Electronically, [facility] #[id number], 172, cm, 08/01/20 13:59:00 EDT, Height Start Date: 02/08/21 Status: Ordered QUEtiapine 100 mg oral tablet See Instructions, TAKE 1 TABLET BY MOUTH DAILY BLOODWORK AND APPOINTMENT NEEDED, # 30 tablet, Refills 0, Tot. Refills 0, 05/29/21 13:15:00 EST, Instructions Replace Required Details, Route to Pharmacy Electronically, [facility] #[id number], 175,... Start Date: 05/29/21 Status: Ordered Suboxone [...] 05/10/21 11:34:00 EST, Route to Pharmacy Electronically, [facility] #[id number], Partial fill uponpatient request if the prescription [...]
--- OUTSIDE RECORDS SUMMARY | 2023-07-31 11:54 | XMS_ITS | Continuity of Care Document ---
Author Organization [facility] Address [address] [place] [address]- Care Team Providers Care Pan Puller Name Role Phone Imani AQUINO, Beatrice Carbajal Primary Care Physician Encounter [facility] Date(s): 06/10/21 - 07/10/21 [facility] [address] [place] [address]- Encounter Diagnosis HTN (hypertension)(Discharge Diagnosis) - 07/16/20 Schizoaffective disorder(Discharge Diagnosis) - 07/16/20 Major depression, recurrent(Discharge Diagnosis) - 07/16/20 Attending Physician: Colt Kitchen Admitting Physician: Colt Kitchen Referring Physician: [id number] Allergies, Adverse Reactions, Alerts No Known Medication Allergies Substance Reaction Severity Status Other Environmental Allergy 1 Active 1Wool Medications atorvastatin 40 mg oral tablet 1 tablet = 40 mg, By Mouth, Daily, # 90 tablet, 1 Refills, Maintenance, 11/20/20 10:30:00 EDT, Tablet, [facility] #[id number], 172, cm, 08/01/20 13:59:00 EDT, Height Start Date: 11/20/20 Stop Date: 05/19/21 Status: Ordered Combivent Respimat 20 mcg-100 mcg/inh inhalation aerosol 1 puffs, Inhalation, 4 times a day, PRN Wheezing/Shortness of Breath, # 1 each, 3 Refills, Maintenance, 06/13/20 15:39:00 EST, Aerosol, [facility] #[id number], Partial fill upon patient request if the prescription is for a schedule II opioid drug., 1 puff... Start Date: 06/13/20 Status: Ordered duloxetine 30 mg oral enteric coated capsule 1 capsule, By Mouth, Daily, # 90 capsule, 0 Refills, Maintenance, 02/07/21 16:12:00 EDT, [facility] #[id number], 172, cm, 08/01/20 13:59:00 EDT, Height Start Date: 02/07/21 Stop Date: 05/08/21 Status: Ordered fenofibrate 54 mg oral tablet 1 tablet = 54 mg, By Mouth, Daily, # 30 tablet, 0 Refills, Maintenance, 05/10/21 11:35:00 EST, [facility] #[id number], Partial fill upon patient request if the [...] 05/29/21 13:15:00 EST, Route to Pharmacy Electronically, [facility] #[id number], 175, cm, 02/14/21 20:23:... Start Date: 05/29/21 Stop Date: 06/28/21 Status: Ordered lisinopril 20 mg oral tablet 1, tablet, By Mouth, Daily, # 30 tablet, Refills 5, Route to Pharmacy Electronically, [facility] #[id number], 175, cm, 02/14/21 20:23:00 EDT, Height, 77.5, kg, 02/14/21 20:23:00 EDT, Dry Weight Start Date: 02/23/21 Status: Ordered MetFORMIN (Eqv-Glucophage XR) 500 mg oral tablet, extended release 2 tablet = 1,000 mg, By Mouth, 2 times a day, # 120 tablet, 3 Refills, Maintenance, 04/15/21 15:52:00 EST, [facility] #[id number], Partial fill upon patient request if the prescription is for a schedule II opioid drug., 175, cm, 02/14/21 20:23:00... Start Date: 04/15/21 Stop Date: 08/13/21 Status: Ordered metFORMIN 500 mg oral tablet, extended release 2 tablet = 1,000 mg, By Mouth, Daily, # 60 tablet, 0 Refills, Maintenance, 04/11/21 12:42:00 EST, [facility] #[id number], Partial fill upon patient request if the [...] Refills, Maintenance, 02/08/21 9:48:00 EDT, ER Tablet, [facility] #[id number], Partialfill upon patient request if the prescription is... Start Date: 02/08/21 Stop Date: 08/07/21 Status: Ordered metoprolol 25 mg oral tablet, extended release 25 mg, 1, tablet, By Mouth, Daily, # 90 tablet, Refills 0, Tot. Refills 0, Maintenance, 05/10/21 11:34:00 EST, Route to Pharmacy Electronically, [facility] #[id number], 175, cm, 02/14/21 20:23:00 EDT, Height, 77.5, kg, 02/14/21 20:23:00 EDT, Dry... Start Date: 05/10/21 Status: Ordered metoprolol 25 mg oral tablet, extended release 25 mg, 1, tablet, By Mouth, Daily, # 90 tablet, Refills 1, Tot. Refills 1, Maintenance, 10/19/20 15:29:00 EDT, Route to Pharmacy Electronically, [facility] #[id number], 172, cm, 08/01/20 13:59:00 EDT, Height Start Date: 10/19/20 Stop Date: 04/17/21 Status: Ordered omeprazole 40 mg oral enteric coated capsule 1 capsule = 40 mg, By Mouth, Daily, # 90 capsule, 0 Refills, Maintenance, 04/24/21 14:31:00 EST, ECCapsule, [facility] #[id number], Partial fill upon patient request if the prescription is for a schedule II opioid drug., 175, cm, 02/14/21 20:23:... Start Date: 04/24/21 Status: Ordered QUEtiapine 100 mg oral tablet 1, tablet, By Mouth, Daily, bloodwork and appt needed, # 30 tablet, Refills 1, Tot. Refills 1, Maintenance, 02/08/21 9:46:00 EDT, Route to Pharmacy Electronically, [facility] #[id number], 172, cm, 08/01/20 13:59:00 EDT, Height Start Date: 02/08/21 Status: Ordered QUEtiapine 100 mg oral tablet See Instructions, TAKE 1 TABLET BY MOUTH DAILY BLOODWORK AND APPOINTMENT NEEDED, # 30 tablet, Refills 0, Tot. Refills 0, 05/29/21 13:15:00 EST, Instructions Replace Required Details, Route to Pharmacy Electronically, [facility] #[id number], 175,... Start Date: 05/29/21 Status: Ordered Suboxone [...] 05/10/21 11:34:00 EST, Route to Pharmacy Electronically, [facility] #[id number], Partial fill uponpatient request if the prescription [...]
--- OUTSIDE RECORDS SUMMARY | 2023-07-31 11:54 | XMS_ITS | Continuity of Care Document ---
Author Organization [facility] Address [address] [address]- Care Team Providers Care Student Accounts Manager Name Role Phone Glenn AQUINO, Danielle Primary Care Physician Encounter [facility] [id number] Date(s): 08/06/20 - 09/16/20 [facility] [address] [address]- Attending Physician: Danielle Elizabeth NP Admitting Physician: [...] Maintenance,07/11/20 15:14:00 EDT, Route to Pharmacy Electronically, [facility]/pharmacy #[id number], 172, cm, 07/11/20 14:49:00 EDT, Height Start Date: 07/11/20 Stop Date: 09/09/20 Status: Ordered lisinopril 20 mg oral tablet 20 mg, 1, tablet, By Mouth, Daily, # 90 tablet, Refills 1, Tot. Refills 1, Maintenance, 07/11/20 15:12:00 EDT, Route to Pharmacy Electronically, [facility]/pharmacy #[id number], Partial fill upon patient request if the prescription is for a schedule II opioid drug... Start Date: 07/11/20 Stop Date: 01/07/21 Status: Ordered metFORMIN 750 mg oral tablet, extended release 1 tablet = 750 mg, By Mouth, 2 times a day, with food, # 180 tablet, 1 Refills, Maintenance, 07/12/20 7:44:00 EDT, ER Tablet, [facility]/pharmacy #[id number], Partial fill upon patient request if the prescriptionis for a schedule II opioid drug., 172, cm, ... Start Date: 07/12/20 Stop Date: 01/08/21 Status: Ordered metoprolol 25 mg oral tablet, extended release 25 mg, 1, tablet, By Mouth, Daily, # 90 tablet, Refills 1, Tot. Refills 1, Maintenance, 07/16/20 12:36:00 EDT, Route to Pharmacy Electronically, [facility]/pharmacy #[id number], 172, cm, 07/11/20 15:26:00 [...] 07/16/20 12:36:00 EDT, Route to Pharmacy Electronically, [facility]/pharmacy #[id number], 172, cm, 07/11/20 15:26:00 [...]
--- OUTSIDE RECORDS SUMMARY | 2023-07-31 11:54 | XMS_ITS | Continuity of Care Document ---
Author Organization [facility] Address [address] [place] [address]- Care Team Providers Care Mortgage Or Loan Underwriter Name Role Phone Glenn AQUINO, Danielle Primary Care Physician Encounter [facility] Date(s): 07/24/20 - 08/23/20 [facility] [address] [place] [address]- Allergies, Adverse Reactions, Alerts No Known Medication [...] Maintenance,07/11/20 15:14:00 EDT, Route to Pharmacy Electronically, [facility]/pharmacy #[id number], 172, cm, 07/11/20 14:49:00 EDT, Height Start Date: 07/11/20 Stop Date: 09/09/20 Status: Ordered lisinopril 20 mg oral tablet 20 mg, 1, tablet, By Mouth, Daily, # 90 tablet, Refills 1, Tot. Refills 1, Maintenance, 07/11/20 15:12:00 EDT, Route to Pharmacy Electronically, [facility]/pharmacy #[id number], Partial fill upon patient request if the prescription is for a schedule II opioid drug... Start Date: 07/11/20 Stop Date: 01/07/21 Status: Ordered metFORMIN 750 mg oral tablet, extended release 1 tablet = 750 mg, By Mouth, 2 times a day, with food, # 180 tablet, 1 Refills, Maintenance, 07/12/20 7:44:00 EDT, ER Tablet, [facility]/pharmacy #[id number], Partial fill upon patient request if the prescriptionis for a schedule II opioid drug., 172, cm, ... Start Date: 07/12/20 Stop Date: 01/08/21 Status: Ordered metoprolol 25 mg oral tablet, extended release 25 mg, 1, tablet, By Mouth, Daily, # 90 tablet, Refills 1, Tot. Refills 1, Maintenance, 07/16/20 12:36:00 EDT, Route to Pharmacy Electronically, [facility]/pharmacy #[id number], 172, cm, 07/11/20 15:26:00 EDT, Height [...] 07/16/20 12:36:00 EDT, Route to Pharmacy Electronically, [facility]/pharmacy #[id number], 172, cm, 07/11/20 15:26:00 EDT, Height [...]
--- OUTSIDE RECORDS SUMMARY | 2023-07-31 11:54 | XMS_ITS | Continuity of Care Document ---
Author Organization [facility] Address [address] [place] [address]- Care Team Providers Care Drapery Inspector Name Role Phone Lucho Cardona DO Primary Care Physician [phone] [place] [facility] Date(s): 05/26/19 - 06/02/19 [facility] [address] [place] [address]- [place] Encounter Diagnosis Cellulitis of left toe(Discharge Diagnosis) - 05/26/19 Hyperglycemia(Discharge Diagnosis) - 05/26/19 Attending Physician: Lucho Cardona DO Allergies, Adverse [...] 03/25/19 16:00:32 EST, Route to Pharmacy Electronically, [id number], [facility]/pharmacy #[id number] Start Date: 03/25/19 Status: Ordered lisinopril 5 mg oral tablet 5 mg, 1, tablet, By Mouth, Daily, # 30 tablet, Refills 5, Tot. Refills 5, Maintenance, 05/09/19 10:34:00 EST, Route to Pharmacy Electronically, [facility]/pharmacy #[id number], 172, cm, 05/09/19 10:09:00 EST, Height Start Date: 05/09/19 Status: Ordered metoprolol 25 mg oral tablet, extended release 25 mg, 1, tablet, By Mouth, Daily, # 30 tablet, Refills 5, Tot. Refills 5, Maintenance, 05/09/19 10:34:00 EST, Route to Pharmacy Electronically, [facility]/pharmacy #[id number], 172, cm, 05/09/19 10:09:00 EST, Height Start Date: 05/09/19 Status: Ordered QUEtiapine 100 mg oral tablet 100 mg, 1, tablet, By Mouth, Daily, # 30 tablet, Refills 1, Tot. Refills 1, Maintenance, 04/11/19 13:46:18 EST, Route to Pharmacy Electronically, [facility]/pharmacy #[id number], 172, cm, 04/11/19 13:08:04 EST, Height Start Date: 04/11/19 Status: Ordered Problem List Condition Effective Dates Status Health Status Inform ant HTN (hypertension)(Confirmed) Active OA (osteoarthritis)(Confirmed) Active Schizoaffective disorder(Confirmed) Active Diagnosis Diagnosis Type Effective Dates Health Status Clinical Service Informant Hyperglycemia Discharge Diagnosis 05/26/19 Cellulitis of left toe Discharge Diagnosis 05/26/19 Vital Signs Most recent to oldest [Reference Range]: 1 Height 172 cm (05/26/19 2:38 PM) Oxygen Saturation [94-100 %] 97 % (05/26/19 2:38 PM) Pulse Rate [55-90 bpm] 79 bpm (05/26/19 2:38 PM) Blood Pressure [90-138/55-84 mm Hg] 138/ 68mm Hg (05/26/19 2:38 PM) Temperature [96.8-100.4 DegF] 97.6 DegF (05/26/19 2:38 PM) Blood pressure sites Arm, left (05/26/19 2:38 PM) Temperature Route Oral (05/26/19 2:38 PM) Social History Social History Type Response Smoking Status 10 or more cigarette s (1/2 pack or more)/day in last 30 days; Other: about 2.5 ppd; entered on: 02/28/19 Sex
--- OUTSIDE RECORDS SUMMARY | 2023-07-31 11:54 | XMS_ITS | Continuity of Care Document ---
Author Organization [facility] Address [address] [place] [address]- Care Team Providers Care Dumper Name Role Phone Glenn AQUINO, Danielle Primary Care Physician [phone] [place] [facility] [place] 11/09/20 - 01/11/21 [facility] [address] [place] [address]- Attending Physician: Danielle Elizabeth NP Allergies, Adverse Reactions, Alerts No Known Medication Allergies Substance Reaction Severity Status Other Environmental Allergy 1 Active 1Wool Medications atorvastatin 40 mg oral tablet 1 tablet = 40 mg, By Mouth, Daily, # 90 tablet, 1 Refills, Maintenance, 11/20/20 10:30:00 EDT, Tablet, [facility] #[id number], 172, cm, 08/01/20 13:59:00 EDT, Height Start Date: 11/20/20 Stop Date: 05/19/21 Status: Ordered Combivent Respimat 20 mcg-100 mcg/inh inhalation aerosol 1 puffs, Inhalation, 4 times a day, PRN Wheezing/Shortness of Breath, # 1 each, 3 Refills, Maintenance, 06/13/20 15:39:00 EST, Aerosol, [facility]/pharmacy #[id number], Partial fill upon patient request if the prescription is for a schedule II opioid drug., 1 puff... Start Date: 06/13/20 Status: Ordered duloxetine 30 mg oral enteric coated capsule 1 capsule, By Mouth, Daily, # 90 capsule, 0 Refills, Maintenance, 11/09/20 12:46:00 EDT, [facility] #[id number], 172, cm, 08/01/20 13:59:00 EDT, Height Start Date: 11/09/20 Stop Date: 02/07/21 Status: Ordered gabapentin 300 mg oral capsule 600 mg, 2, capsule, By Mouth, 3 times a day, PLEASE CALL OFFICE FOR RESCHEDULE APPT., # 180 capsule, Refills 2, Tot. Refills 2, Maintenance, 12/11/20 15:07:00 EDT, Route to Pharmacy Electronically, [facility] #[id number], 172, cm, 08/01/20 13:59:... Start Date: 12/11/20 Stop Date: 03/11/21 Status: Ordered lisinopril 20 mg oral tablet 20 mg, 1, tablet, By Mouth, Daily, # 30 tablet, Refills 0, Tot. Refills 0, Maintenance, 01/11/21 16:12:00 EDT, Route to Pharmacy Electronically, [facility] #[id number], Partial fill upon patientrequest if the prescription is for a schedule II op... Start Date: 01/11/21 Stop Date: 04/11/21 Status: Ordered metFORMIN 750 mg oral tablet, extended release 1 tablet = 750 mg, By Mouth, 2 times a day, with food, # 180 tablet, 1 Refills, Maintenance, 07/12/20 7:44:00 EDT, ER Tablet, [facility]/pharmacy #[id number], Partial fill upon patient request if the prescriptionis for a schedule II opioid drug., 172, cm, ... Start Date: 07/12/20 Stop Date: 01/08/21 Status: Ordered metoprolol 25 mg oral tablet, extended release 25 mg, 1, tablet, By Mouth, Daily, # 90 tablet, Refills 1, Tot. Refills 1, Maintenance, 10/19/20 15:29:00 EDT, Route to Pharmacy Electronically, [facility] #[id number], 172, cm, 08/01/20 13:59:00 EDT, Height Start [...] 01/11/21 16:12:00 EDT, [facility] to [facility]ically, [id number], 172, cm, 08/01/20 13:59:00 EDT, Height Start [...]
--- OUTSIDE RECORDS SUMMARY | 2023-07-31 11:55 | XMS_ITS | Continuity of Care Document ---
Author Organization [facility] Address [address] [place] [address]- Care Team Providers Care Lime Boiler Name Role Phone Imani AQUINO, Beatrice Carbajal Primary Care Physician Encounter [facility] [place] Date(s): 07/04/21 - 08/03/21 [facility] [address] [place] [address]- Allergies, Adverse Reactions, Alerts No Known Medication Allergies Substance Reaction Severity Status Other Environmental Allergy 1 Active 1Wool Medications atorvastatin 40 mg oral tablet 1 tablet = 40 mg, By Mouth, Daily, # 90 tablet, 1 Refills, Maintenance, 11/20/20 10:30:00 EDT, Tablet, [facility] #[id number], 172, cm, 08/01/20 13:59:00 EDT, Height Start Date: 11/20/20 Stop Date: 05/19/21 Status: Ordered Combivent Respimat 20 mcg-100 mcg/inh inhalation aerosol 1 puffs, Inhalation, 4 times a day, PRN Wheezing/Shortness of Breath, # 1 each, 3 Refills, Maintenance, 06/13/20 15:39:00 EST, Aerosol, [facility]/pharmacy #[id number], Partial fill upon patient request if the prescription is for a schedule II opioid drug., 1 puff... Start Date: 06/13/20 Status: Ordered duloxetine 30 mg oral enteric coated capsule 1 capsule, By Mouth, Daily, # 90 capsule, 0 Refills, Maintenance, 02/07/21 16:12:00 EDT, [facility] #[id number], 172, cm, 08/01/20 13:59:00 EDT, Height Start Date: 02/07/21 Stop Date: 05/08/21 Status: Ordered fenofibrate 54 mg oral tablet 1 tablet = 54 mg, By Mouth, Daily, # 30 tablet, 0 Refills, Maintenance, 05/10/21 11:35:00 EST, [facility] #[id number], Partial fill upon patient request if the [...] 05/29/21 13:15:00 EST, Route to Pharmacy Electronically, [facility] #[id number], 175, cm, 02/14/21 20:23:... Start Date: 05/29/21 Stop Date: 06/28/21 Status: Ordered lisinopril 20 mg oral tablet 1, tablet, By Mouth, Daily, # 30 tablet, Refills 5, Route to Pharmacy Electronically, [facility] #[id number], 175, cm, 02/14/21 20:23:00 EDT, Height, 77.5, kg, 02/14/21 20:23:00 EDT, Dry Weight Start Date: 02/23/21 Status: Ordered MetFORMIN (Eqv-Glucophage XR) 500 mg oral tablet, extended release 2 tablet = 1,000 mg, By Mouth, 2 times a day, # 120 tablet, 3 Refills, Maintenance, 04/15/21 15:52:00 EST, [facility] #[id number], Partial fill upon patient request if the prescription is for a schedule II opioid drug., 175, cm, 02/14/21 20:23:00... Start Date: 04/15/21 Stop Date: 08/13/21 Status: Ordered metFORMIN 500 mg oral tablet, extended release 2 tablet = 1,000 mg, By Mouth, Daily, # 60 tablet, 0 Refills, Maintenance, 04/11/21 12:42:00 EST, [facility] #[id number], Partial fill upon patient request if the [...] Refills, Maintenance, 02/08/21 9:48:00 EDT, ER Tablet, [facility] #[id number], Partialfill upon patient request if the prescription is... Start Date: 02/08/21 Stop Date: 08/07/21 Status: Ordered metoprolol 25 mg oral tablet, extended release 25 mg, 1, tablet, By Mouth, Daily, # 90 tablet, Refills 0, Tot. Refills 0, Maintenance, 05/10/21 11:34:00 EST, Route to Pharmacy Electronically, [facility] #[id number], 175, cm, 02/14/21 20:23:00 EDT, Height, 77.5, kg, 02/14/21 20:23:00 EDT, Dry... Start Date: 05/10/21 Status: Ordered metoprolol 25 mg oral tablet, extended release 25 mg, 1, tablet, By Mouth, Daily, # 90 tablet, Refills 1, Tot. Refills 1, Maintenance, 10/19/20 15:29:00 EDT, Route to Pharmacy Electronically, [facility] #[id number], 172, cm, 08/01/20 13:59:00 EDT, Height Start Date: 10/19/20 Stop Date: 04/17/21 Status: Ordered omeprazole 40 mg oral enteric coated capsule 1 capsule = 40 mg, By Mouth, Daily, # 90 capsule, 0 Refills, Maintenance, 04/24/21 14:31:00 EST, ECCapsule, [facility] #[id number], Partial fill upon patient request if the prescription is for a schedule II opioid drug., 175, cm, 02/14/21 20:23:... Start Date: 04/24/21 Status: Ordered QUEtiapine 100 mg oral tablet 1, tablet, By Mouth, Daily, bloodwork and appt needed, # 30 tablet, Refills 1, Tot. Refills 1, Maintenance, 02/08/21 9:46:00 EDT, Route to Pharmacy Electronically, [facility] #[id number], 172, cm, 08/01/20 13:59:00 EDT, Height Start Date: 02/08/21 Status: Ordered QUEtiapine 100 mg oral tablet See Instructions, TAKE 1 TABLET BY MOUTH DAILY BLOODWORK AND APPOINTMENT NEEDED, # 30 tablet, Refills 0, Tot. Refills 0, 05/29/21 13:15:00 EST, Instructions Replace Required Details, Route to Pharmacy Electronically, [facility] #[id number], 175,... Start Date: 05/29/21 Status: Ordered Suboxone [...] 05/10/21 11:34:00 EST, Route to Pharmacy Electronically, [facility] #[id number], Partial fill uponpatient request if the prescription [...]
--- OUTSIDE RECORDS SUMMARY | 2023-07-31 11:55 | XMS_ITS | Continuity of Care Document ---
Author Organization [facility] Address [address] [place] [address]- Care Team Providers Care Blocker Polishing Name Role Phone Glenn AQUINO, Danielle Primary Care Physician [phone] [place] [facility] [place] Date(s): 08/01/20 - 08/08/20 [facility] [address] [place] [address]- Encounter Diagnosis HTN (hypertension)(Discharge Diagnosis) - 08/01/20 Chronic obstructive pulmonary disease(Discharge Diagnosis) - 08/01/20 Smoking(Discharge Diagnosis) - 08/01/20 Calcification of abdominal aorta(Discharge Diagnosis) - 08/01/20 Abdominal aortic ectasia(Discharge Diagnosis) - 08/01/20 History of lung cancer(Discharge Diagnosis) - 08/01/20 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) - 08/01/20 Opiate dependence(Discharge Diagnosis) - 08/01/20 Chronic pain syndrome(Discharge Diagnosis) - 08/01/20 Diabetes mellitus, type II(Discharge Diagnosis) - 08/01/20 Schizoaffective disorder(Discharge Diagnosis) - 08/01/20 Attending Physician: Danielle Elizabeth NP Allergies, Adverse Reactions, Alerts No Known Medication Allergies Substance Reaction Severity Status Other Environmental Allergy 1 Active 1Wool Medications atorvastatin 40 mg oral tablet 1 tablet = 40 mg, By Mouth, Daily, # 90 tablet, 1 Refills, Maintenance, 05/24/20 10:30:00 EST, Tablet, [facility] #[id number], 172, cm, 05/17/20 13:12:00 EST, Height Start [...] Maintenance,07/11/20 15:14:00 EDT, Route to Pharmacy Electronically, [facility]/pharmacy #[id number], 172, cm, 07/11/20 14:49:00 EDT, Height Start Date: 07/11/20 Stop Date: 09/09/20 Status: Ordered lisinopril 20 mg oral tablet 20 mg, 1, tablet, By Mouth, Daily, # 90 tablet, Refills 1, Tot. Refills 1, Maintenance, 07/11/20 15:12:00 EDT, Route to Pharmacy Electronically, [facility]/pharmacy #[id number], Partial fill upon patient request if the prescription is for a schedule II opioid drug... Start Date: 07/11/20 Stop Date: 01/07/21 Status: Ordered metFORMIN 750 mg oral tablet, extended release 1 tablet = 750 mg, By Mouth, 2 times a day, with food, # 180 tablet, 1 Refills, Maintenance, 07/12/20 7:44:00 EDT, ER Tablet, [id number], Partial fill upon patient request if the prescriptionis for a schedule II opioid drug., 172, cm, ... Start Date: 07/12/20 Stop Date: 01/08/21 Status: Ordered metoprolol 25 mg oral tablet, extended release 25 mg, 1, tablet, By Mouth, Daily, # 90 tablet, Refills 1, Tot. Refills 1, Maintenance, 07/16/20 12:36:00 EDT, Route to Pharmacy Electronically, [facility]/pharmacy #[id number], 172, cm, 07/11/20 15:26:00 EDT, Height [...] 07/16/20 12:36:00 EDT, Route to Pharmacy Electronically, [facility]/pharmacy #[id number], 172, cm, 07/11/20 15:26:00 EDT, Height [...] Effective Dates Health Status Clinical Service Informant Abdominal aortic ectasia Discharge Diagnosis 08/01/20 Calcification of abdominal aorta Discharge Diagnosis 08/01/20 Smoking Discharge Diagnosis 08/01/20 HTN (hypertension) Discharge Diagnosis 08/01/20 Chronic obstructive pulmonary disease Discharge Diagnosis 08/01/20 Schizoaffective disorder Discharge Diagnosis 08/01/20 Diabetes mellitus, type II Discharge Diagnosis 08/01/20 Chronic pain syndrome Discharge Diagnosis 08/01/20 Opiate dependence Discharge Diagnosis 08/01/20 Substance abuse in remission Discharge Diagnosis 08/01/20 History of lung cancer Discharge Diagnosis 08/01/20 Vital Signs Most recent to oldest [Reference Range]: 1 Height 172 cm (08/01/20 1:59 PM) Oxygen Saturation [94-100 %] 97 % (08/01/20 1:59 PM) Pulse Rate [55-90 bpm] 82 bpm (08/01/20 1:59 PM) Blood Pressure [90-138/55-84 mm Hg] 138/ 80mm Hg (08/01/20 1:59 PM) Respiratory Rate [16-30 br/min] 18 br/mi n (08/01/20 1:59 PM) Mode of Delivery (Oxygen) Room air (08/01/20 1:59 PM) Blood pressure sites Arm, left (08/01/20 1:59 PM) Social History Social History Type Response Smoking Status 10 or more cigarette s (1/2 pack or more)/day in last 30 days; Other: about 2.5 ppd; entered on: 02/28/19 Sex
--- OUTSIDE RECORDS SUMMARY | 2023-07-31 11:55 | XMS_ITS | Continuity of Care Document ---
Author Organization [facility] Address [address] [place] [address]- Care Team Providers Care Brick Kiln Worker Name Role Phone Glenn AQUINO, Danielle Primary Care Physician [place] [facility] [place]/16[place]20 - 08/15/20 [facility] [address] [place] [address]- Allergies, Adverse Reactions, Alerts No Known Medication [...] Maintenance,07/11/20 15:14:00 EDT, Route to Pharmacy Electronically, [facility]/pharmacy #[id number], 172, cm, 07/11/20 14:49:00 EDT, Height Start Date: 07/11/20 Stop Date: 09/09/20 Status: Ordered lisinopril 20 mg oral tablet 20 mg, 1, tablet, By Mouth, Daily, # 90 tablet, Refills 1, Tot. Refills 1, Maintenance, 07/11/20 15:12:00 EDT, Route to Pharmacy Electronically, [facility]/pharmacy #[id number], Partial fill upon patient request if the prescription is for a schedule II opioid drug... Start Date: 07/11/20 Stop Date: 01/07/21 Status: Ordered metFORMIN 750 mg oral tablet, extended release 1 tablet = 750 mg, By Mouth, 2 times a day, with food, # 180 tablet, 1 Refills, Maintenance, 07/12/20 7:44:00 EDT, ER Tablet, [facility]/pharmacy #[id number], Partial fill upon patient request if the prescriptionis for a schedule II opioid drug., 172, cm, ... Start Date: 07/12/20 Stop Date: 01/08/21 Status: Ordered metoprolol 25 mg oral tablet, extended release 25 mg, 1, tablet, By Mouth, Daily, # 90 tablet, Refills 1, Tot. Refills 1, Maintenance, 07/16/20 12:36:00 EDT, Route to Pharmacy Electronically, [facility]/pharmacy #[id number], 172, cm, 07/11/20 15:26:00 EDT, Height [...] 07/16/20 12:36:00 EDT, Route to Pharmacy Electronically, [facility]/pharmacy #[id number], 172, cm, 07/11/20 15:26:00 EDT, Height [...]
--- OUTSIDE RECORDS SUMMARY | 2023-07-31 11:55 | XMS_ITS | Continuity of Care Document ---
Author Organization [facility] Address [address] [place] [address]- Care Team Providers Care Hospital Administrative Assistant Name Role Phone Glenn AQUINO, Danielle Primary Care Physician Encounter [place] Date(s): 02/07/21 - 03/09/21 [facility] [address] [place] [address]- Encounter Diagnosis Schizoaffective disorder(Discharge Diagnosis) - 02/08/21 Major depression, recurrent(Discharge Diagnosis) - 02/08/21 Diabetes mellitus, type II(Discharge Diagnosis) - 02/08/21 Allergies, Adverse Reactions, Alerts No Known Medication Allergies Substance Reaction Severity Status Other Environmental Allergy 1 Active 1Wool Medications atorvastatin 40 mg oral tablet 1 tablet = 40 mg, By Mouth, Daily, # 90 tablet, 1 Refills, Maintenance, 11/20/20 10:30:00 EDT, Tablet, [facility] #[id number], 172, cm, 08/01/20 13:59:00 EDT, Height Start Date: 11/20/20 Stop Date: 05/19/21 Status: Ordered Combivent Respimat 20 mcg-100 mcg/inh inhalation aerosol 1 puffs, Inhalation, 4 times a day, PRN Wheezing/Shortness of Breath, # 1 each, 3 Refills, Maintenance, 06/13/20 15:39:00 EST, Aerosol, [id number], Partial fill upon patient request if the prescription is for a schedule II opioid drug., 1 puff... Start Date: 06/13/20 Status: Ordered duloxetine 30 mg oral enteric coated capsule 1 capsule, By Mouth, Daily, # 90 capsule, 0 Refills, Maintenance, 02/07/21 16:12:00 EDT, [facility] #[id number], 172, cm, 08/01/20 13:59:00 EDT, Height Start Date: 02/07/21 Stop Date: 05/08/21 Status: Ordered gabapentin 300 mg oral capsule 600 mg, 2, capsule, By Mouth, 3 times a day, PLEASE CALL OFFICE FOR RESCHEDULE APPT., # 180 capsule, Refills 2, Tot. Refills 2, Maintenance, 12/11/20 15:07:00 EDT, Route to Pharmacy Electronically, [facility] #[id number], 172, cm, 08/01/20 13:59:... Start Date: 12/11/20 Stop Date: 03/11/21 Status: Ordered lisinopril 20 mg oral tablet 1, tablet, By Mouth, Daily, # 30 tablet, Refills 5, Route to Pharmacy Electronically, [facility] #[id number], 175, cm, 02/14/21 20:23:00 EDT, Height, 77.5, kg, 02/14/21 20:23:00 EDT, Dry Weight Start Date: 02/23/21 Status: Ordered metFORMIN 750 mg oral tablet, extended release 1 tablet = 750 mg, By Mouth, 2 times a day, Call for appt SWAPNIL before next refill with food, # 60 tablet, 1 Refills, Maintenance, 02/08/21 9:48:00 EDT, ER Tablet, [facility] #[id number], Partialfill upon patient request if the prescription is... Start Date: 02/08/21 Stop Date: 08/07/21 Status: Ordered metoprolol 25 mg oral tablet, extended release 25 mg, 1, tablet, By Mouth, Daily, # 90 tablet, Refills 1, Tot. Refills 1, Maintenance, 10/19/20 15:29:00 EDT, Route to Pharmacy Electronically, [facility] #[id number], 172, cm, 08/01/20 13:59:00 EDT, Height Start [...] 02/08/21 9:46:00 EDT, Route to Pharmacy Electronically, [facility] #[id number], 172, cm, 08/01/20 13:59:00 EDT, Height Start Date: 02/08/21 Status: Ordered QUEtiapine 100 mg oral tablet See Instructions, TAKE 1 TABLET BY MOUTH DAILY BLOODWORK AND APPOINTMENT NEEDED, # 30 tablet, Refills 0, Instructions Replace Required Details, Route to Pharmacy Electronically, [facility] #[id number], 172, cm, 08/01/20 13:59:00 EDT, Height Start [...] Clinical Service Informant Schizoaffective disorder Discharge Diagnosis 02/08/21 Non-Specified Major depression, recurrent Discharge Diagnosis 02/08/21 Non-Specified Diabetes mellitus, type II Discharge Diagnosis 02/08/21 Non-Specified Social History Social History Type Response Smoking Status 10 or more cigarette s (1/2 pack or more)/day in last 30 days; Other: about 2.5 ppd; entered on: 02/28/19 Sex
--- OUTSIDE RECORDS SUMMARY | 2023-07-31 11:55 | XMS_ITS | Continuity of Care Document ---
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 Name Role Phone Brendan Lucho JONES Primary Care Physician Encounter [facility] [place] Date(s): 12/05/19 - 01/04/20 [facility] [address] [place] [address]- [facility] Attending Physician: Colt Kitchen Admitting Physician: Colt Kitchen Referring Physician: AdmtrColt Allergies, Adverse Reactions, Alerts No Known Medication [...] Daily, # 90 tablet, 1 Refills, Maintenance, 11/10/19 15:07:00 EDT, Tablet, [facility]/pharmacy #[id number], 172, cm, 06/30/19 7:54:00 EST, Height Start Date: 11/10/19 Status: Ordered duloxetine 30 mg oral enteric coated capsule 1 capsule, By Mouth, Daily, # 30 capsule, 3 Refills, Maintenance, 10/17/19 11:08:00 EDT, [facility] [id number], 172, cm, 06/30/19 7:54:00 EST, Height Start Date: 10/17/19 Status: Ordered gabapentin 300 mg oral capsule 1, capsule, By Mouth, 3 times a day, # 90 capsule, Refills 2, Tot. Refills 0, Maintenance, 10/16/2010:08:00 EDT, Route to Pharmacy Electronically, [facility] 94344, 172, cm, 06/30/19 7:54:00 EST, Height Start Date: 10/17/19 Status: Ordered lisinopril 5 mg oral tablet 5 mg, 1, tablet, By Mouth, Daily, # 90 tablet, Refills 0, Tot. Refills 0, Maintenance, 11/10/19 15:07:00 EDT, Route to Pharmacy Electronically, [facility]/pharmacy #[id number], 172, cm, 06/30/19 7:54:00 EST, Height Start Date: 11/10/19 Status: Ordered meloxicam 15 mg oral tablet See Instructions, TAKE 1 TABLET BY MOUTH EVERY DAY, # 30 tablet, 3 Refills, Maintenance, [facility], 172, cm, 06/30/19 7:54:00 EST, Height Start Date: 09/22/19 Status: Ordered meloxicam 15 mg oral tablet See Instructions, TAKE 1 TABLET BY MOUTH EVERY DAY, # 30 tablet, 3 Refills, Maintenance, [facility], 172, cm, 06/30/19 7:54:00 EST, Height Start Date: 09/22/19 Status: Ordered metoprolol 25 mg oral tablet, extended release 50 mg, 2, tablet, By Mouth, Daily, # 180 tablet, Refills 0, Tot. Refills 0, Maintenance, 12/30/19 16:08:00 EDT, Route to Pharmacy Electronically, [facility]/pharmacy #[id number], 172, cm, 12/01/19 14:10:00 EDT, Height Start Date: 12/30/19 Status: Ordered pantoprazole 40 mg oral delayed release tablet 1 tablet = 40 mg, By Mouth, Daily, 0 Refills, Maintenance, 07/22/19 13:19:00 EDT Start Date: 07/22/19 Stop Date: 08/21/19 Status: Ordered QUEtiapine 100 mg oral tablet 1, tablet, By Mouth, Daily, # 90 tablet, Refills 0, Tot. Refills 0, Maintenance, 11/10/19 15:07:00 EDT, Route to Pharmacy Electronically, [facility]/pharmacy #[id number], 172, cm, 06/30/19 7:54:00 EST, Height Start Date: 11/10/19 Status: Ordered Problem List Condition Effective Dates Status Health Status Inform ant HTN (hypertension)(Confirmed) Active OA (osteoarthritis)(Confirmed) Active Schizoaffective disorder(Confirmed) Active Social History Social History Type Response Smoking Status 10 or more cigarette s (1/2 pack or more)/day in last 30 days; Other: about 2.5 ppd; entered on: 02/28/19 Sex
--- OUTSIDE RECORDS SUMMARY | 2023-07-31 11:55 | XMS_ITS | Continuity of Care Document ---
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 Name Role Phone Brendan Lucho JONES Primary Care Physician Encounter [facility] [place] Date(s): 08/26/19 - 09/25/19 [facility] [address] [place] [address]- [facility] Attending Physician: Colt Kitchen Admitting Physician: Colt [...] 5 Refills, Maintenance, 05/09/19 10:34:00 EST, Tablet, [facility]/pharmacy #[id number], 172, cm, 05/09/19 10:09:00 EST, Height Start Date: 05/09/19 Status: Ordered duloxetine 30 mg oral enteric coated capsule 1 capsule, By Mouth, Daily, # 30 capsule, 3 Refills, Maintenance, 06/20/19 7:54:00 EST, [facility], 172, cm, 06/02/19 8:30:00 EST, Height Start Date: 06/20/19 Status: Ordered gabapentin 300 mg oral capsule 1, capsule, By Mouth, 3 times a day, # 90 capsule, Refills 2, Tot. Refills 0, Maintenance, 207:54:00 EST, Route to Pharmacy Electronically, [facility]36, 172, cm, 06/02/19 8:30:00 EST, Height Start Date: 06/20/19 Status: Ordered lisinopril 5 mg oral tablet 5 mg, 1, tablet, By Mouth, Daily, # 30 tablet, Refills 5, Tot. Refills 5, Maintenance, 05/09/19 10:34:00 EST, Route to Pharmacy Electronically, [facility]/pharmacy #[id number], 172, cm, 05/09/19 10:09:00 EST, Height Start Date: 05/09/19 Status: Ordered meloxicam 15 mg oral tablet See Instructions, TAKE 1 TABLET BY MOUTH EVERY DAY, # 30 tablet, 3 Refills, Maintenance, [facility], 172, cm, 06/30/19 7:54:00 EST, Height Start Date: 09/22/19 Status: Ordered meloxicam 15 mg oral tablet See Instructions, TAKE 1 TABLET BY MOUTH EVERY DAY, # 30 tablet, 3 Refills, Maintenance, [facility] 75837, 172, cm, 06/30/19 7:54:00 EST, Height Start Date: 09/22/19 Status: Ordered metoprolol 25 mg oral tablet, extended release 50 mg, 2, tablet, By Mouth, Daily, # 30 tablet, Refills 5, Tot. Refills 5, Maintenance, 08/26/19 10:37:00 EDT, Route to Pharmacy Electronically, [facility]/pharmacy #[id number], 172, cm, 06/30/19 7:54:00 EST, Height Start Date: 08/26/19 Status: Ordered pantoprazole 40 mg oral delayed release tablet 1 tablet = 40 mg, By Mouth, Daily, 0 Refills, Maintenance, 07/22/19 13:19:00 EDT Start Date: 07/22/19 Stop Date: 08/21/19 Status: Ordered QUEtiapine 100 mg oral tablet 1, tablet, By Mouth, Daily, # 30 tablet, Refills 1, Tot. Refills 0, Maintenance, 09/22/19 8:06:00 EDT, Route to Pharmacy Electronically, [facility] [id number], 172, cm, 06/30/19 7:54:00 EST, Height Start Date: 09/22/19 Status: Ordered Problem List Condition Effective Dates Status Health Status Inform ant HTN (hypertension)(Confirmed) Active OA (osteoarthritis)(Confirmed) Active Schizoaffective disorder(Confirmed) Active Social History Social History Type Response Smoking Status 10 or more cigarette s (1/2 pack or more)/day in last 30 days; Other: about 2.5 ppd; entered on: 02/28/19 Sex
--- OUTSIDE RECORDS SUMMARY | 2023-07-31 11:55 | XMS_ITS | Continuity of Care Document ---
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 Name Role Phone Beatrice Diallo NP Primary Care Physician [place] [facility] [place] 09[place]18/21 [facility] [address] [place], [place] [address] Attending Physician: Beatrice Diallo NP Allergies, Adverse Reactions, Alerts No Known Medication Allergies Substance Reaction Severity Status Other Environmental Allergy 1 Active 1Wool Medications atorvastatin 40 mg oral tablet 1 tablet = 40 mg, By Mouth, Daily, # 90 tablet, 1 Refills, Maintenance, 11/20/20 10:30:00 EDT, Tablet, [facility] #[id number], 172, cm, 08/01/20 13:59:00 EDT, Height Start Date: 11/20/20 Stop Date: 05/19/21 Status: Ordered Combivent Respimat 20 mcg-100 mcg/inh inhalation aerosol 1 puffs, Inhalation, 4 times a day, PRN Wheezing/Shortness of Breath, # 1 each, 3 Refills, Maintenance, 06/13/20 15:39:00 EST, Aerosol, [facility]/pharmacy #[id number], Partial fill upon patient request if the prescription is for a schedule II opioid drug., 1 puff... Start Date: 06/13/20 Status: Ordered duloxetine 30 mg oral enteric coated capsule 1 capsule, By Mouth, Daily, # 90 capsule, 0 Refills, Maintenance, 02/07/21 16:12:00 EDT, [facility] #[id number], 172, cm, 08/01/20 13:59:00 EDT, Height Start Date: 02/07/21 Stop Date: 05/08/21 Status: Ordered fenofibrate 54 mg oral tablet 1 tablet = 54 mg, By Mouth, Daily, # 30 tablet, 0 Refills, Maintenance, 05/10/21 11:35:00 EST, [facility] #[id number], Partial fill upon patient request if the [...] 05/29/21 13:15:00 EST, Route to Pharmacy Electronically, [facility] #[id number], 175, cm, 02/14/21 20:23:... Start Date: 05/29/21 Stop Date: 06/28/21 Status: Ordered lisinopril 20 mg oral tablet 1, tablet, By Mouth, Daily, # 30 tablet, Refills 5, Route to Pharmacy Electronically, [facility] #[id number], 175, cm, 02/14/21 20:23:00 EDT, Height, 77.5, kg, 02/14/21 20:23:00 EDT, Dry Weight Start Date: 02/23/21 Status: Ordered MetFORMIN (Eqv-Glucophage XR) 500 mg oral tablet, extended release 2 tablet = 1,000 mg, By Mouth, 2 times a day, # 120 tablet, 3 Refills, Maintenance, 04/15/21 15:52:00 EST, [facility] #[id number], Partial fill upon patient request if the prescription is for a schedule II opioid drug., 175, cm, 02/14/21 20:23:00... Start Date: 04/15/21 Stop Date: 08/13/21 Status: Ordered metFORMIN 500 mg oral tablet, extended release 2 tablet = 1,000 mg, By Mouth, Daily, # 60 tablet, 0 Refills, Maintenance, 04/11/21 12:42:00 EST, [facility] #[id number], Partial fill upon patient request if the [...] Refills, Maintenance, 02/08/21 9:48:00 EDT, ER Tablet, [facility] #[id number], Partialfill upon patient request if the prescription is... Start Date: 02/08/21 Stop Date: 08/07/21 Status: Ordered metoprolol 25 mg oral tablet, extended release 25 mg, 1, tablet, By Mouth, Daily, # 90 tablet, Refills 0, Tot. Refills 0, Maintenance, 05/10/21 11:34:00 EST, Route to Pharmacy Electronically, [facility] #[id number], 175, cm, 02/14/21 20:23:00 EDT, Height, 77.5, kg, 02/14/21 20:23:00 EDT, Dry... Start Date: 05/10/21 Status: Ordered metoprolol 25 mg oral tablet, extended release 25 mg, 1, tablet, By Mouth, Daily, # 90 tablet, Refills 1, Tot. Refills 1, Maintenance, 10/19/20 15:29:00 EDT, Route to Pharmacy Electronically, [facility] #[id number], 172, cm, 08/01/20 13:59:00 EDT, Height Start Date: 10/19/20 Stop Date: 04/17/21 Status: Ordered omeprazole 40 mg oral enteric coated capsule 1 capsule = 40 mg, By Mouth, Daily, # 90 capsule, 0 Refills, Maintenance, 04/24/21 14:31:00 EST, ECCapsule, [facility] #[id number], Partial fill upon patient request if the prescription is for a schedule II opioid drug., 175, cm, 02/14/21 20:23:... Start Date: 04/24/21 Status: Ordered QUEtiapine 100 mg oral tablet 1, tablet, By Mouth, Daily, bloodwork and appt needed, # 30 tablet, Refills 1, Tot. Refills 1, Maintenance, 02/08/21 9:46:00 EDT, Route to Pharmacy Electronically, [facility] #[id number], 172, cm, 08/01/20 13:59:00 EDT, Height Start Date: 02/08/21 Status: Ordered QUEtiapine 100 mg oral tablet See Instructions, TAKE 1 TABLET BY MOUTH DAILY BLOODWORK AND APPOINTMENT NEEDED, # 30 tablet, Refills 0, Tot. Refills 0, 05/29/21 13:15:00 EST, Instructions Replace Required Details, Route to Pharmacy Electronically, [facility] #[id number], 175,... Start Date: 05/29/21 Status: Ordered Suboxone [...] 05/10/21 11:34:00 EST, Route to Pharmacy Electronically, [facility] #[id number], Partial fill uponpatient request if the prescription [...]
--- OUTSIDE RECORDS SUMMARY | 2023-07-31 11:55 | XMS_ITS | Continuity of Care Document ---
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 Name Role Phone Imani AQUINO, Beatrice Carbajal Primary Care Physician Encounter [facility] [place] Date(s): 11/08/21 - 12/08/21 [facility] [address] [place], [place] [address] Allergies, Adverse Reactions, Alerts No Known Medication Allergies Substance Reaction Severity Status Other Environmental Allergy 1 Active 1Wool Medications atorvastatin 40 mg oral tablet 1 tablet = 40 mg, By Mouth, Daily, # 90 tablet, 1 Refills, Maintenance, 11/20/20 10:30:00 EDT, Tablet, [id number], 172, cm, 08/01/20 13:59:00 EDT, Height Start Date: 11/20/20 Stop Date: 05/19/21 Status: Ordered Combivent Respimat 20 mcg-100 mcg/inh inhalation aerosol 1 puffs, Inhalation, 4 times a day, PRN Wheezing/Shortness of Breath, # 1 each, 3 Refills, Maintenance, 06/13/20 15:39:00 EST, Aerosol, [facility]/pharmacy #[id number], Partial fill upon patient request if the prescription is for a schedule II opioid drug., 1 puff... Start Date: 06/13/20 Status: Ordered duloxetine 30 mg oral enteric coated capsule 1 capsule, By Mouth, Daily, # 90 capsule, 0 Refills, Maintenance, 02/07/21 16:12:00 EDT, [facility] #[id number], 172, cm, 08/01/20 13:59:00 EDT, Height Start Date: 02/07/21 Stop Date: 05/08/21 Status: Ordered fenofibrate 54 mg oral tablet 1 tablet = 54 mg, By Mouth, Daily, # 30 tablet, 0 Refills, Maintenance, 05/10/21 11:35:00 EST, [facility] #[id number], Partial fill upon patient request if the [...] 05/29/21 13:15:00 EST, Route to Pharmacy Electronically, [facility] #[id number], 175, cm, 02/14/21 20:23:... Start Date: 05/29/21 Stop Date: 06/28/21 Status: Ordered lisinopril 20 mg oral tablet 1, tablet, By Mouth, Daily, # 30 tablet, Refills 5, Route to Pharmacy Electronically, [facility] #[id number], 175, cm, 02/14/21 20:23:00 EDT, Height, 77.5, kg, 02/14/21 20:23:00 EDT, Dry Weight Start Date: 02/23/21 Status: Ordered MetFORMIN (Eqv-Glucophage XR) 500 mg oral tablet, extended release 2 tablet = 1,000 mg, By Mouth, 2 times a day, # 120 tablet, 3 Refills, Maintenance, 04/15/21 15:52:00 EST, [facility] #[id number], Partial fill upon patient request if the prescription is for a schedule II opioid drug., 175, cm, 02/14/21 20:23:00... Start Date: 04/15/21 Stop Date: 08/13/21 Status: Ordered metFORMIN 500 mg oral tablet, extended release 2 tablet = 1,000 mg, By Mouth, Daily, # 60 tablet, 0 Refills, Maintenance, 04/11/21 12:42:00 EST, [facility] #[id number], Partial fill upon patient request if the [...] Refills, Maintenance, 02/08/21 9:48:00 EDT, ER Tablet, [facility] #[id number], Partialfill upon patient request if the prescription is... Start Date: 02/08/21 Stop Date: 08/07/21 Status: Ordered metoprolol 25 mg oral tablet, extended release 25 mg, 1, tablet, By Mouth, Daily, # 90 tablet, Refills 0, Tot. Refills 0, Maintenance, 05/10/21 11:34:00 EST, Route to Pharmacy Electronically, [facility] #[id number], 175, cm, 02/14/21 20:23:00 EDT, Height, 77.5, kg, 02/14/21 20:23:00 EDT, Dry... Start Date: 05/10/21 Status: Ordered metoprolol 25 mg oral tablet, extended release 25 mg, 1, tablet, By Mouth, Daily, # 90 tablet, Refills 1, Tot. Refills 1, Maintenance, 10/19/20 15:29:00 EDT, Route to Pharmacy Electronically, [facility] #[id number], 172, cm, 08/01/20 13:59:00 EDT, Height Start Date: 10/19/20 Stop Date: 04/17/21 Status: Ordered omeprazole 40 mg oral enteric coated capsule 1 capsule = 40 mg, By Mouth, Daily, # 90 capsule, 0 Refills, Maintenance, 04/24/21 14:31:00 EST, ECCapsule, [facility] #[id number], Partial fill upon patient request if the prescription is for a schedule II opioid drug., 175, cm, 02/14/21 20:23:... Start Date: 04/24/21 Status: Ordered QUEtiapine 100 mg oral tablet 1, tablet, By Mouth, Daily, bloodwork and appt needed, # 30 tablet, Refills 1, Tot. Refills 1, Maintenance, 02/08/21 9:46:00 EDT, Route to Pharmacy Electronically, [facility] #[id number], 172, cm, 08/01/20 13:59:00 EDT, Height Start Date: 02/08/21 Status: Ordered QUEtiapine 100 mg oral tablet See Instructions, TAKE 1 TABLET BY MOUTH DAILY BLOODWORK AND APPOINTMENT NEEDED, # 30 tablet, Refills 0, Tot. Refills 0, 05/29/21 13:15:00 EST, Instructions Replace Required Details, Route to Pharmacy Electronically, [id number], 175,... Start Date: 05/29/21 Status: Ordered Suboxone [...] 05/10/21 11:34:00 EST, Route to Pharmacy Electronically, [facility] #[id number], Partial fill uponpatient request if the prescription [...]
--- OUTSIDE RECORDS SUMMARY | 2023-07-31 11:55 | XMS_ITS | Continuity of Care Document ---
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 Phone Terrell Long DO Primary Care Physician [phone] Encounter [facility] [place] Date(s): 01/13/23 - 01/14/[address] [address]- Encounter Diagnosis Nausea and vomiting(Final) - 01/14/23 Diabetes mellitus with hyperglycemia, without long-term current use of insulin (Final) - 01/14/23 Abdominal pain(Final) - 01/14/23 History of gastritis(Final) - 01/14/23 Schizoaffective disorder(Final) - 01/14/23 Cocaine abuse(Final) - 01/14/23 Medication nonadherence due to psychosocial problem(Final) - 01/14/23 Discharge Disposition: A-D/C Home Attending Physician: Carolyn Loja MD Admitting Physician: Carolyn Loja MD Referring Physician: Not on Staff, Referring [...] Date: 10/02/22 Stop Date: 03/31/23 Status: Ordered fenofibrate 54 mg oral tablet 1 tablet = 54 mg, By Mouth, Daily, # 30 tablet, 0 Refills, Maintenance, 10/02/22 9:57:00 EDT, Partial fill upon patient request if the prescription is for a schedule II opioid drug. Start Date: 10/02/22 Status: Ordered lisinopril 5 mg oral tablet 5 mg, 1, tablet, By Mouth, Daily, # 30 tablet, Refills 0, Tot. Refills 0, Maintenance, 10/01/22 11:10:00 EDT, Print Re[facility], Partial fill upon patient request if the prescription is for a schedule II opioid drug., 165, cm, 10/01/22 8:40:00 EDT, He... Start Date: 10/01/22 Status: Ordered metFORMIN 500 mg oral tablet 2 tablet = 1,000 mg, By Mouth, 2 times a day, # 120 tablet, 0 Refills, Maintenance, 01/14/23 1:59:00 EDT, Tablet, [facility], Partial fill upon patient request if the prescription is for a schedule II opioid drug., 175, cm, 01/14/23 0:35... Start Date: 01/14/23 Status: Ordered metFORMIN 500 mg oral tablet 2 tablet = 1,000 mg, By Mouth, 2 times a day before breakfast and dinne, # 60 tablet, 0 Refills, Maintenance, 10/01/22 11:10:00 EDT, Tablet, Partial fill upon patient request if the prescription is for a schedule II opioid drug., 165, cm, 10/01/22 8:4... Start Date: 10/01/22 Status: Ordered metoprolol 25 mg oral tablet, extended release 25 mg, 1, tablet, By Mouth, Daily, # 90 tablet, Refills 1, Tot. Refills 1, Maintenance, 10/02/22 9:57:00 EDT, Print Requisition Start Date: 10/02/22 Stop Date: 03/31/23 Status: Ordered ondansetron 4 mg oral tablet, disintegrating 1 tablet = 4 mg, By Mouth, Every 8 hours, PRN Nausea & Vomiting, # 10 tablet, 0 Refills, Acute 01/21/23 2:01:00 EDT, 01/14/23 2:00:00 EDT, Tablet, [facility], Partial fill upon patient request if the prescription is for a schedule II opi... Start Date: 01/14/23 Stop Date: 01/21/23 Status: Ordered ondansetron 4 mg oral tablet, disintegrating 1 tablet = 4 mg, By Mouth, Every 8 hours, PRN as needed for nausea/vomiting, allow tablet to dissolve on tongue, # 8 tablet, 0 Refills, Maintenance, 01/07/23 9:56:00 EDT, DIS Tablet, [facility], Partial fill upon patient request if the p... Start Date: 01/07/23 Status: Ordered OxyCODONE IR Tablet 5 mg, Tablet, By Mouth, Once, STAT, 01/14/23 1:56:00 EDT, Stop date 01/14/23 1:56:00 EDT Start Date: 01/14/23 Stop Date: 01/14/23 Status: Completed pantoprazole 40 mg oral delayed release tablet [...] 09/23/22 17... Start Date: 10/01/22 Status: Ordered Problem List Condition Confirmation Course [...] compression fracture of L1 vertebra Confirmed Active Results Radiology Reports * Exam Date Time Procedure Performing Provider Status 01/13/23 11:[address] Abd/Pelvis W/ IV Contrast Only Flaquito Schroeder (Verified) Notes: (CT Abd/Pelvis W/ IV Contrast Only) Reason For Exam: LLQ abdominal pain;Other: RESULT: CT Abd/Pelvis W/ IV Contrast Only CT Abd/Pelvis W/ IV Contrast Only Reason: Other:; LLQ abdominal pain; Clinical Question(s): Obstruction; Order Comment: TECHNIQUE: Spiral CT through the abdomen and pelvis with IV contrast formatted in 3 planes. 100 cc of Omnipaque 300 was administered intravenously. This study was performed without oral contrast. Weight-based protocol using automatic tube modulation was used to optimize exposure parameters. CTDIvol Body: 12.11 mGy, DLP Body: 659 mGy*cm. COMPARISON: 01/06/2023 FINDINGS: Receiving Weigher View Findings, Lines and Tubes: None. Visualized Chest: Lung bases are clear. No pleural effusion. The heart is normal in size. No pericardial effusion. Diaphragm: Normal. Liver: Diffuse low-attenuation throughout the liver parenchyma consistent with hepatic steatosis. No evidence of mass. Gallbladder: No CT evidence of gallbladder pathology. Bile ducts: No biliary ductal dilation. Spleen: Normal. Pancreas: Normal. Adrenal glands: Normal. Kidneys and ureters: No hydronephrosis, stones, or suspicious masses. Small hypodensities that are too small to characterize are noted, requiring no dedicated follow up. Bladder: Normal. Reproductive organs: Unremarkable. Stomach, small bowel, and large bowel: Normal. Appendix: Normal. Peritoneum and retroperitoneum: No ascites or pneumoperitoneum. No omental or mesenteric lesions. Lymph nodes: No enlarged lymph nodes. Blood vessels: Moderate atherosclerotic vascular calcification. No aortic aneurysm. No evidence of venous thrombosis. Abdominal and pelvic wall: Unremarkable. Bones: No acute abnormality. IMPRESSION: No acute abnormality in the abdomen or pelvis. Fatty infiltration of the liver. WSN: [id number] Ordering Physician: Shea Lam Dictated By: Umair Carranza MD Dictated Date/Time: 01/13/23 11:10 p Reviewed By: Umair Carranza MD Signed By: Umair Carranza MD Signed Date/Time: 01/13/23 11:10 pm Transcribed By: PRASHANTH Transcribed Date/Time: 01/13/23 11:07 pm Vital Signs Most recent to oldest [Reference Range]: 1 2 3 Height 175 cm (01/13/23 11:00 PM) 175 cm (01/13/23 9:33 PM) 175 cm (01/13/23 5:24 PM) Oxygen Saturation [94-100 %] 96 % (01/14/23 5:05 AM) 97 % (01/14/23 2:47 AM) 96 % (01/13/23 9:33 PM) Pulse Rate [55-90 bpm] 95 bpm *H* (01/14/23 5:05 AM) 100 bpm *H* (01/14/23 2:47 AM) 94 bpm *H* (01/13/23 9:33 PM) Blood Pressure [90-138/55-84 mm Hg] 157/82mm Hg *H* (01/14/23 5:05 AM) 173/92mm Hg *H* (01/14/23 2:47 AM) 156/96mm Hg *H* (01/13/23 9:33 PM) Respiratory Rate [16-30 br/min] 16 br/min (01/14/23 5:05 AM) 18 br/min (01/14/23 2:58 AM) 22 br/min (01/14/23 2:47 AM) Temperature [96.8-100.4 DegF] 98.0 DegF (01/14/23 5:05 AM) 97.7 DegF (01/13/23 9:33 PM) 98.3 DegF (01/13/23 7:36 PM) Mode of Delivery (Oxygen) Room air (01/14/23 5:05 AM) Room air (01/14/23 2:47 AM) Room air (01/13/23 9:33 PM) Blood pressure sites Arm, right (01/14/23 5:05 AM) Arm, left (01/14/23 2:47 AM) Arm, left (01/13/23 9:33 PM) Temperature Route Oral (01/14/23 5:05 AM) Axillary (01/13/23 9:33 PM) Oral (01/13/23 7:36 PM) Dry Weight 82 kg (01/13/23 11:00 PM) 82 kg (01/13/23 9:33 PM) 82 kg (01/13/23 5:24 PM) Dry Weight Obtained Via Patient/family s tated (01/13/23 5:24 PM) Social History Social History Type Response Tobacco Use: 2 PPD. Interest ed in cessation: No. No, Other: about 2.5 ppd. Type: Cigarettes. Sex EKG study * Event Display: ECG 12-Lead Authored Date: Please click on pdf link to open report * Event Display: ECG 12-Lead Authored Date: Ventricular Rate: 93 BPM Atrial Rate: 93 BPM P-R Interval: 166 ms QRS Duration: 88 ms Q-T Interval: 370 ms QTC Calculation(Bazett): 460 ms P [place]: 18 degrees R [place]: 21 degrees T [place]: 81 degrees Normal sinus rhythm Nonspecific T wave abnormality Abnormal ECG When compared with ECG of 18-NOV-2022 12:41, SD interval has decreased Confirmed by NILAY SUN ([id number]) on 01/14/2023 7:58:59 AM [place]: NILAY SUN Patient Care team information Care Team Personnel Name: Fawn Nunez Position: S RN Member Role: Primary Care Nurse Name: Isa Lake RN Position: S RN Member Role: Primary Care Nurse Name: Janet Moreno LPN Position: S RN Member Role: Primary Care Nurse Name: Luis Armando Alford RN Position: S RN Member Role: Primary Care Nurse Name: Gaye Motley RN Position: [facility] RN Member Role: Primary Care Nurse Name: Parvin Kim Position: [facility] RN Member Role: Primary Care Nurse Name: Stormy Mccray RN Position: [facility] RN Member Role: Primary Care Nurse Name: Terrell Long DO Position: [facility] Physician - Primary Care Member Role: PCP Address: Address: [address] [place] [address]- Name: Nara Bruno RN Position: [facility] RN Member Role: Primary Care Nurse Name: Katia Nelson LPN Position: [facility] RN Member Role: Primary Care Nurse Name: Sepideh East RN Position: [facility] RN Member Role: Primary Care [facility] Attending Position: [facility] ED Attendings Patient Name: Valorie Rosales RN Position: [facility] ED RN W/OE and Tasks Member Role: Patient Care Provider Name: Carolyn Loja MD Position: [facility] ED Medicine MD Member Role: ED Attending Physician Address: Address: [address] [place] [address] [place] [address]- Care Team Related Persons Name: NAZ WEINER
--- OUTSIDE RECORDS SUMMARY | 2023-07-31 11:55 | XMS_ITS | Continuity of Care Document ---
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 Phone Imani AQUINO, Beatrice Carbajal Primary Care Physician Encounter [facility] [place] Date(s): 03/28/21 - 05/03/21 [facility] [address] [place] [address]- Attending Physician: Debra DOWNING, Ni Ni Referring Physician: Beatrice Diallo NP Allergies, Adverse Reactions, Alerts No Known Medication Allergies Substance Reaction Severity Status Other Environmental Allergy 1 Active 1Wool Medications atorvastatin 40 mg oral tablet 1 tablet = 40 mg, By Mouth, Daily, # 90 tablet, 1 Refills, Maintenance, 11/20/20 10:30:00 EDT, Tablet, [facility] #[id number], 172, cm, 08/01/20 13:59:00 EDT, Height Start Date: 11/20/20 Stop Date: 05/19/21 Status: Ordered Combivent Respimat 20 mcg-100 mcg/inh inhalation aerosol 1 puffs, Inhalation, 4 times a day, PRN Wheezing/Shortness of Breath, # 1 each, 3 Refills, Maintenance, 06/13/20 15:39:00 EST, Aerosol, [facility]/pharmacy #[id number], Partial fill upon patient request if the prescription is for a schedule II opioid drug., 1 puff... Start Date: 06/13/20 Status: Ordered duloxetine 30 mg oral enteric coated capsule 1 capsule, By Mouth, Daily, # 90 capsule, 0 Refills, Maintenance, 02/07/21 16:12:00 EDT, [facility][id number], 172, cm, 08/01/20 13:59:00 EDT, Height Start [...] 04/11/21 12:42:00 EST, Route to Pharmacy Electronically, [facility] #[id number], 175, cm, 02/14/21 20:23:... Start Date: 04/11/21 Stop Date: 05/11/21 Status: Ordered lisinopril 20 mg oral tablet 1, tablet, By Mouth, Daily, # 30 tablet, Refills 5, Route to Pharmacy Electronically, [facility] #[id number], 175, cm, 02/14/21 20:23:00 EDT, Height, 77.5, kg, 02/14/21 20:23:00 EDT, Dry Weight Start Date: 02/23/21 Status: Ordered MetFORMIN (Eqv-Glucophage XR) 500 mg oral tablet, extended release 2 tablet = 1,000 mg, By Mouth, 2 times a day, # 120 tablet, 3 Refills, Maintenance, 04/15/21 15:52:00 EST, [facility] #[id number], Partial fill upon patient request if the prescription is for a schedule II opioid drug., 175, cm, 02/14/21 20:23:00... Start Date: 04/15/21 Stop Date: 08/13/21 Status: Ordered metFORMIN 500 mg oral tablet, extended release 2 tablet = 1,000 mg, By Mouth, Daily, # 60 tablet, 0 Refills, Maintenance, 04/11/21 12:42:00 EST, [facility] #[id number], Partial fill upon patient request if the [...] Refills, Maintenance, 02/08/21 9:48:00 EDT, ER Tablet, [facility] #[id number], Partialfill upon patient request if the prescription is... Start Date: 02/08/21 Stop Date: 08/07/21 Status: Ordered metoprolol 25 mg oral tablet, extended release 25 mg, 1, tablet, By Mouth, Daily, # 90 tablet, Refills 1, Tot. Refills 1, Maintenance, 10/19/20 15:29:00 EDT, Route to Pharmacy Electronically, [facility] #[id number], 172, cm, 08/01/20 13:59:00 EDT, Height Start Date: 10/19/20 Stop Date: 04/17/21 Status: Ordered omeprazole 40 mg oral enteric coated capsule 1 capsule = 40 mg, By Mouth, Daily, # 90 capsule, 0 Refills, Maintenance, 04/24/21 14:31:00 EST, ECCapsule, [facility] #[id number], Partial fill upon patient request if the prescription is for a schedule II opioid drug., 175, megan, 02/14/21 20:23:... Start Date: 04/24/21 Status: Ordered QUEtiapine 100 mg oral tablet 1, tablet, By Mouth, Daily, bloodwork and appt needed, # 30 tablet, Refills 1, Tot. Refills 1, Maintenance, 02/08/21 9:46:00 EDT, Route to Pharmacy Electronically, [facility] #[id number], 172, cm, 08/01/20 13:59:00 EDT, Height Start Date: 02/08/21 Status: Ordered QUEtiapine 100 mg oral tablet See Instructions, TAKE 1 TABLET BY MOUTH DAILY BLOODWORK AND APPOINTMENT NEEDED, # 30 tablet, Refills 0, Tot. Refills 0, 04/11/21 12:42:00 EST, Instructions Replace Required Details, Route to Pharmacy Electronically, [facility] #[id number], 175,... Start Date: 04/11/21 Status: Ordered Suboxone [...]
--- OUTSIDE RECORDS SUMMARY | 2023-07-31 11:55 | XMS_ITS | Continuity of Care Document ---
Author Organization [facility] ter Address [address] [place] [id number]- Care Team Providers Care Staff Forester Name Role Phone Terrell Long DO Primary Care Physician [phone] Encounter [facility] Date(s): 01/06/23 - 01/07/[address] [id number] Encounter Diagnosis Hyperlipidemia(Discharge Diagnosis) - 01/07/23 HTN (hypertension)(Discharge Diagnosis) - 01/07/23 Schizoaffective disorder(Discharge Diagnosis) - 01/07/23 Major depression, recurrent(Discharge Diagnosis) - 01/07/23 Discharge Disposition: A-D/C Home Attending Physician: Merced Ramos MD Admitting Physician: Gladis Moore MD Referring Physician: Not on Staff, Referring [...] Date: 10/02/22 Stop Date: 03/31/23 Status: Ordered Dilaudid Inj 0.5 mg, Injection, IV Push Slowly, Every 4 hours, PRN for Pain , Severe, Routine, 01/06/23 7:52:00 EDT Start Date: 01/06/23 Stop Date: 01/07/23 Status: Discontinued fenofibrate 54 mg oral tablet 1 tablet = 54 mg, By Mouth, Daily, # 30 tablet, 0 Refills, Maintenance, 10/02/22 9:57:00 EDT, Partial fill upon patient request if the prescription is for a schedule II opioid drug. Start Date: 10/02/22 Status: Ordered lisinopril 5 mg oral tablet 5 mg, Tablet, By Mouth, 01/07/23 9:00:00 EDT Start Date: 01/07/23 Stop Date: 01/07/23 Status: Completed lisinopril 5 mg oral tablet 5 mg, [...] mg oral tablet, extended release 25 mg, XL Tablet, By Mouth, Hold for: sbp<110, HR<55, 01/07/23 9:00:00 EDT Start Date: 01/07/23 Stop Date: 01/07/23 Status: Completed metoprolol 25 mg oral tablet, extended release [...] Refills, Maintenance, 01/07/23 9:56:00 EDT, DIS Tablet, [facility], Partial fill upon patient request if the p... Start Date: 01/07/23 Status: Ordered oxyCODONE 5 mg oral tablet 5 mg, 1, tablet, By Mouth, Every 6 hours, PRN, for 3 days, # 12 tablet, Refills 0, Tot. Refills 0, Acute 01/10/23 9:56:00 EDT, Pain , Severe, 01/07/23 9:56:00 EDT, Route to Pharmacy Electronically, [facility], Partial fill upon patient r... Start Date: 01/07/23 Stop Date: 01/10/23 Status: Ordered pantoprazole 40 mg oral delayed [...] Effective Dates Health Status Clinical Service Informant Hyperlipidemia Discharge Diagnosis 01/07/23 Non-Specified HTN (hypertension) Discharge Diagnosis 01/07/23 Non-Specified Schizoaffective disorder Discharge Diagnosis 01/07/23 Non-Specified Major depression, recurrent Discharge Diagnosis 01/07/23 Non-Specified Results Radiology Reports * Exam Date Time Procedure Performing Provider Status 01/06/23 9:[address] Abd/Pelvis W/ IV + Oral Contrast Felicity Cazares; Auth (Verified) Notes: (CT Abd/Pelvis W/ IV + Oral Contrast) Reason For Exam: vomit, constip, abdominal pain;Other: RESULT: CT Abd/Pelvis W/ IV + Oral Contrast CT Abd/Pelvis W/ IV + Oral Contrast INDICATION: Abdominal pain, nausea and vomiting for 3 days. TECHNIQUE: Helical CT scan through the abdomen and pelvis with IV contrast formatted in 3 planes with enteric contrast. 100 cc of Omnipaque 300 was administered intravenously.Weight-based protocol using automatic tube modulation was used to optimize exposure parameters. 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 LOWER CHEST: Clear lungs. No pleural abnormalities. Normal heart size. No pericardial effusion. DIAPHRAGM: Normal. LIVER: Fatty liver. No mass. GALLBLADDER, BILE DUCTS AND SAILAJA HEPATIS: Normal. SPLEEN: Normal. PANCREAS: Normal. ADRENAL GLANDS: Normal. RIGHT KIDNEY AND URETER: Normal. LEFT KIDNEY AND URETER: Normal. URINARY BLADDER: Normal. STOMACH, SMALL BOWEL AND LARGE BOWEL: Mild stool retention but otherwise normal. No evidence of intestinal inflammation, obstruction or mass. APPENDIX: Normal. REPRODUCTIVE ORGANS: Normal prostate and seminal vesicles. OMENTUM, PERITONEUM AND MESENTERY: No ascites, pneumoperitoneum or omental lesions LYMPH NODES: Normal. VASCULATURE: Severe atherosclerotic vascular calcification and mild infrarenal ectasia at 2.6 cm but no aneurysm. No periaortic inflammation or hemorrhage. No venous thrombosis. ABDOMINAL WALL and RETROPERITONEAL MUSCLES: Normal. BONES: * No acute findings. * Stable T12 compression deformity. * Old healed right pelvic fracture. IMPRESSION: 1. Mild stool retention but no other evidence of an acute process. 2. Fatty liver. WSN: [id number] Ordering Physician: Rneae Lackey Dictated By: Curtis Carmona MD Dictated Date/Time: 01/06/23 11:01 a Reviewed By: Curtis Carmona MD Signed By: Curtis Carmona MD Signed Date/Time: 01/06/23 11:01 am Transcribed By: PRASHANTH Transcribed Date/Time: 01/06/23 10:50 am Vital Signs Most recent to oldest [Reference Range]: 1 2 3 Weight 79.8 kg (01/07/23 4:27 AM) 79.8 kg (01/07/23 4:25 AM) Oxygen Saturation [94-100 %] 96 % (01/07/23 10:39 AM) 98 % (01/07/23 7:03 AM) 98 % (01/07/23 4:25 AM) Pulse Rate [55-90 bpm] 75 bpm (01/07/23 10:39 AM) 65 bpm (01/07/23 9:01 AM) 65 bpm (01/07/23 7:03 AM) Blood Pressure [90-138/55-84 mm Hg] 126/79mm Hg (01/07/23 10:39 AM) 121/67mm Hg (01/07/23 9:01 AM) 121/67mm Hg (01/07/23 9:01 AM) Respiratory Rate [16-30 br/min] 20 br/min (01/07/23 10:39 AM) 18 br/min (01/07/23 8:53 AM) 18 br/min (01/07/23 8:00 AM) Temperature [96.8-100.4 DegF] 97.5 DegF (01/07/23 10:39 AM) 97.5 DegF (01/07/23 7:03 AM) 98.1 DegF (01/07/23 4:25 AM) Mode of Delivery (Oxygen) Room air (01/07/23 10:39 AM) Room air (01/07/23 7:03 AM) Room air (01/07/23 4:25 AM) Blood pressure sites Arm, right (01/07/23 10:39 AM) Arm, right (01/07/23 7:03 AM) Arm, right (01/07/23 4:25 AM) Temperature Route Oral (01/07/23 10:39 AM) Oral (01/07/23 7:03 AM) Oral (01/07/23 4:25 AM) Weight Obtained Via Bed scale (01/07/23 4:27 AM) Bed scale (01/07/23 4:25 AM) Social History Social History Type Response Tobacco Use: 2 PPD. Interest ed in cessation: No. No, Other: about 2.5 ppd. Type: Cigarettes. Sex Admission evaluation note * Jeimy DOWNING, Liseth Vann: MODIFY, MODIFY, PERFORM Event Display: Admission Note Authored Date: [id number] Patient: ??KYLE REGALADO ? Age:??62 Years?Sex:??Male?:??1960?? Chief Complaint/Reason for Consultation pt w/abd pain, nausea and vomiting for 3 days. Called EMS thinking POC was low, found in 400s. Alsowith high BP. Vomitied w/ EMS-clear. History of Present Illness 62-year-old male with PMH of type 2 diabetes mellitus, HTN, HLD, depression, polysubstance use disorder used to be on Suboxone but patient states he stopped using it for more than 3 weeks, COPD, has been using CBD for sent to the ED from [facility] due to ongoing nausea and vomiting for 5 days associated with some lightheadedness. ?? Patient's medical chart reviewed, seen and examined at bedside.?? Patient was sent to the ED from [facility] due to nausea and multiple episodes of vomiting going on for 5 days.?? Patient still complains offeeling nauseous and vomiting.?? States he is not able to tolerate anything p.o.?? Multiple times states that he is having constant diffuse abdominal pain, leg pain, back pain, generalized body achesand requests to give more pain medications.?? Denies having any fevers, chills, headache, dizziness, chest pain, palpitations, cough, sore throat, runny nose, diarrhea.?? No urinary changes.?? Endorses passing gas.?? Patient states he is able to tolerate samson sandoval crackers in the ED and would liketo try some diet.?? No other complaints. ?? Initially in the ED patient remains afebrile, HR 64, RR 18, BP 147/66, saturation 98% on room air.?? No leukocytosis WBC of 9.5, Hgb 14.8, PLT 262, electrolytes normal, BUN/creatinine 11/0.7, blood glucose 269, lipase 62, AST/ALT 69/53, T. bili 0.7, troponin 30?30, UA negative.?? Patient received famotidine 20 mg, lidocaine topical Maalox, multiple rounds of Dilaudid, Zofran and 1 L fluidbolus.?? Patient will be admitted to observation medicine service for further management Review of Systems All the systems are reviewed and are negative, except as above Objective Measurements?? Weight: 79.8 kg (01/07/23) ?? Vital Signs?? Temperature: 98.1 DegF (01/07/23 04:25:00) Temperature Route: Oral (01/07/23 04:25:00) Pulse Rate: 64 bpm (01/07/23 04:25:00) Respiratory Rate: 19 br/min (01/07/23 05:04:00) Systolic Blood Pressure:??147 mm Hg??High (01/07/23 04:25:00) Diastolic Blood Pressure: 66 mm Hg (01/07/23 04:25:00) Blood pressure sites: Arm, right (01/07/23 04:25:00) Mean Arterial Pressure: 93 mm Hg (01/07/23 04:25:00) Pulse Pressure: 81 mm Hg (01/07/23 04:25:00) Oxygen Saturation: 98 % (01/07/23 04:25:00) Mode of Delivery (Oxygen): Room air (01/07/23 04:25:00) Early Warning Score: 1 (01/07/23 05:27:41) ? Pain Scores 1 - 10 Pain Scale Score: 5 (07:08) ? Intake/Output? No Data Available ?? Precautions No Precautions documented.? Physical Exam ?? Gen- not in acute distress,comfortabily lying on bed, speaking in full sentences. HEENT- Normocephalic, Atraumatic, pupils equally reacting to light and accommodation. Extraocular movements intact. No pallor, icterus Neck-supple, no JVD, no lymphadenopathy. Heart-S1S2(+),??regular, no murmurs/rubs/gallops. lungs- Clear, b/l air entry, no wheezing/rales/rhonchi. Abdomen-soft, nontender,nondistended,??bowel sounds present in 4q, No guarding, No rigidity, No rebound tenderness. Extremities-pulses palpable??2+. No pedal edema. No calf tenderness. Neurological- AAO??3. No focal neurological deficits noted. Skin-no rash, no petechia Psychiatric-patient???s mood is stable. ? Assessment/Plan 62-year-old male with PMH of type 2 diabetes mellitus, HTN, HLD, depression, polysubstance use disorder used to be on Suboxone but patient states he stopped using it for more than 3 weeks, COPD, has been using CBD for sent to the ED from [facility] due to ongoing nausea and vomiting for 5 days associated with some lightheadedness. Initially in the ED patient remains afebrile, HR 64, RR 18, BP 147/66, saturation 98% on room air.?? No leukocytosis WBC of 9.5, Hgb 14.8, PLT 262, electrolytes normal, BUN/creatinine 11/0.7, blood glucose 269, lipase 62, AST/ALT 69/53, T. bili 0.7, troponin 30?30, UA negative.?? Patient received famotidine 20 mg, lidocaine topical Maalox, multiple rounds of Dilaudid, Zofran and 1 L fluid bolus.?? Patient will be admitted to observation medicine service for further management ?Nausea and vomiting ??(R11.2) ??abdominal pain Polysubstance use disorder Vitals as per unit standards S/p 1 L fluid bolus We will continue with gentle IV hydration Zofran?? As needed for nausea and vomiting Pain control with Tylenol, Dilaudid as needed Pantoprazole 40 mg daily Patient states he stopped using Suboxone??3 weeks ago. Has been using marijuana/CBD ?? Diabetes mellitus, type II ??(E11.9) POC glucose q. Premeal and at bedtime Hypoglycemia emergency measures At home takes metformin 1000 mg twice daily -will hold for now??given GI symptoms We will continue with lispro sliding scale ?? Centrilobular emphysema ??(J43.2)??currently on room air, satting well. ??Patient states he doesnot use any inhalers at home ??Chronic hyponatremia ??(E87.1) asymptomatic we will continue to monitor ??HTN (hypertension) ??(I10)??lisinopril 5 mg daily, metoprolol 25 mg daily Hyperlipidemia ??(E78.5)??atorvastatin??40 mg daily and??fenofibrate 54 mg daily Major depression, recurrent ??(F33.9) Schizoaffective disorder ??(F25.9) Sertraline 100 mg daily Quetiapine 100 mg daily at bedtime??and 50 mg daily in a.m. ?? Code???full Diet???initially on clear liquid diet??advanced??to??regular diet this a.m.??and will see if he cantolerate DVT prophylaxis???pneumatic compression boots, VTE guidelines done ?? Patient seen and examined on??01/07/2023 Histories Allergies Allergies ?(Active and Proposed Allergies Only) Other Environmental Allergy? (Severity: Persistent Mild, Onset: Unknown) ?Reactions: Wool ?Comments: RASH ?Comments: Wool No Known Medication Allergies? (Severity: Unknown severity, Onset: Unknown) ? Past Medical History/Problem List Active Problems??(27) Abdominal aortic ectasia Calcification of abdominal aorta Centrilobular emphysema Chronic hyponatremia Chronic low back pain Chronic obstructive pulmonary disease Chronic pain of both knees Chronic pain syndrome Compression fracture of spine Diabetes mellitus, type II Duodenal ulcer Environmental allergies Gastritis GI bleed History of lung cancer Homelessness HTN (hypertension) Hyperlipidemia Major depression, recurrent Mixed hyperlipidemia OA (osteoarthritis) Opiate dependence Schizoaffective disorder Smoking Substance abuse in remission Type 2 diabetes mellitus with diabetic peripheral angiopathy without gangrene Wedge compression fracture of L1 vertebra ? Past Surgical History Reconstruction of facial bones Ankle CA - Lung cancer Heart H/O: major abdominal surgery Repair of ruptured spleen (splenorrhaphy) with or without partial splenectomy ? Social History Alcohol Details:??Use: Past. Details:??Use: Past. ??Frequency: SOBER 8 YRS. Employment/School Details:??Status: Unemployed. Home/Environment Details:??Living situation: Home/Independent. ??Other: OWN APT IN [place]. Nutrition/Health Details:??Diet: Regular. ??Other: CANNOT TOLERATE PEPPERS. Substance Abuse Details:??Use: Current. Details:??Use: Current. ??Type: Cocaine, Marijuana. ??Other: MARIJUANA 1-2 PER MONTH. COCAINE 1 A WEEK PRIOR TO SUBSTANCE USE PROBLEM. ??Frequency: 3-5 times per week. Tobacco Details:??Use: 2 PPD. ??Interested in cessation: No. ??No, Other: about 2.5 ppd. ??Type: Cigarettes. Electronic Cigarette/Vaping Details:??Electronic Cigarette Use: Never. ? Family History Mother (): Diabetes mellitus type II Brother: Alcoholism; Myocardial infarction ? Medications Home Medications Aluminum Hydroxide (aluminum hydroxide 320 mg/5 ml oral suspension)?10?Milliliter?640?Milligram?By Mouth?3 times a day after meals and bedtime?for 10?Days?with a full glassof water Atorvastatin (atorvastatin 40 mg oral tablet)?1?tab(s)?40?Milligram?By Mouth?Daily?for 90?Days Buprenorphine-Naloxone (buprenorphine-naloxone 2 mg-0.5 mg sublingual film)?2?Film?Sublingual?Daily Buprenorphine-Naloxone (buprenorphine-naloxone 8 mg-2 mg sublingual film)?1?Film?Sublingual?Daily efinaconazole topical (efinaconazole 10% topical solution)?1?gina?Topically?Daily?for48?week(s) Fenofibrate (fenofibrate 54 mg oral tablet)?1?tab(s)?54?Milligram?By Mouth?Daily Ibuprofen (ibuprofen 200 mg oral capsule)?2?capsule?400?Milligram?By Mouth?2 times a day?as needed?for pain Insulin Lispro (insulin lispro 100 units/mL injectable solution)?4-12 units?Subcutaneous Injection?3 times a day before meals?200-250- 4 [id number] UNITSGREATER THAN 450 NOTIFY PROVIDER Lisinopril (lisinopril 5 mg oral tablet)?5?Milligram?1?tablet?By Mouth?Daily Metformin (metFORMIN 500 mg oral tablet)?2?tab(s)?1,000?Milligram?By Mouth?2 times a day before breakfast and dinne Metoprolol (metoprolol 25 mg oral tablet, extended release)?25?Milligram?1?tablet?ByMouth?Daily?for 90?Days Ondansetron (ondansetron 4 mg oral tablet, disintegrating)?1?tab(s)?4?Milligram?By Mouth?Every 8 hours?as needed?as needed for nausea/vomiting?allow tablet to dissolve on tongue Pantoprazole (pantoprazole 40 mg oral delayed release tablet)?1?tab(s)?40?Milligram?By Mouth?Daily Quetiapine (QUEtiapine 100 mg oral tablet)?100?Milligram?1?tablet?By Mouth?Daily at bedtime Quetiapine (SEROquel 25 mg oral tablet)?50?Milligram?2?tablet?By Mouth?Daily in AM Sertraline (sertraline 50 mg oral tablet)?2?tab(s)?100?Milligram?By Mouth?Daily Sulfamethoxazole/Trimethoprim (trimethoprim-sulfamethoxazole DS)?160?Milligram?By Mouth?2 times a day ? Inpatient Medications Medications (27) Active SCHEDULED: (9) Atorvastatin 40 mg Tablet (atorvastatin 40 mg oral tablet) ??40 mg, By Mouth, Daily Fenofibrate 43 mg Capsule (fenofibrate 43 mg oral capsule) ??43 mg, By Mouth, Daily Insulin Lispro 100 units/mL Inj (3mL) (Insulin LISPRO Sliding Scale) ??2-10 units, Subcutaneous Injection, 3 times a day before meals Metoprolol (metoprolol 25 mg oral tablet, extended release) ??25 mg 1 tablet, By Mouth, Daily NaCl 0.9% Flush 3ml (NaCL 0.9% Flush) ??3 mL, IV Push, Every 8 hours Pantoprazole 40 mg EC Tablet (pantoprazole 40 mg oral delayed release tablet) ??40 mg, By Mouth, Daily Quetiapine 100 mg Tablet (QUEtiapine 100 mg oral tablet) ??100 mg, By Mouth, Daily at bedtime Quetiapine 25 mg Tablet (SEROquel 25 mg oral tablet) ??50 mg, By Mouth, Daily in AM Sertraline 50 mg Tablet (sertraline 50 mg oral tablet) ??100 mg, By Mouth, Daily CONTINUOUS: (1) NaCL 0.9% (1000 mL) Cont IV 1,000 mL (0.9% NaCL 1,000 mL) ??1,000 mL, IV Infusion, 125 mL/hr PRN: (17) Acetaminophen 325 mg Tablet (Acetaminophen Tablet) ??650 mg, By Mouth, Every 4 hours Al hydroxide/Mg hydroxide/simethicone 200 mg-200 mg-20 mg/5 mL Susp UD (Maalox Plus Liquid) ??15 mL, By Mouth, 4 times a day Dextromethorphan-Guaifenesin 20 mg-200 mg/10 mL Liqu UD (Robitussin DM Liquid) ??10 mL, By Mouth, Every 4 hours Dextrose Inj Syringe (Dextrose 50% Inj Syringe (25Gm)) ??12.5 Gm, IV Push Slowly, Every 20 minutes Dextrose Inj Syringe (Dextrose 50% Inj Syringe (25Gm)) ??25 Gm, IV Push Slowly, Every 15 minutes Docusate Sodium 100 mg Capsule (Docusate Sodium Capsule) ??100 mg 1 capsule, By Mouth, 2 times a day Glucagon 1 mg Inj (Glucagon Inj) ??1 mg, Intramuscular, Once Glucose 40% Gel (15 Gm) (Glucose Gel) ??15 Gm, By Mouth, Every 20 minutes Glucose 40% Gel (15 Gm) (Glucose Gel) ??30 Gm, By Mouth, Every 20 minutes HYDROmorphone 0.5 mg/0.5 mL Inj Syringe (Dilaudid Inj) ??0.5 mg 0.5 mL, IV Push Slowly, Every 4 hours HYDROmorphone 0.5 mg/0.5 mL Inj Syringe (Dilaudid Inj) ??0.5 mg 0.5 mL, IV Push Slowly, Once Melatonin 3 mg Tablet (Melatonin Tablet) ??3 mg, By Mouth, Daily at bedtime NaCl 0.9% Flush 3ml (NaCL 0.9% Flush) ??3 mL, IV Push, Every 8 hours Ondansetron 2mg/mL Inj (2mL Vial) (Zofran Inj) ??4 mg, IV Push, Every 6 hours Polyethylene Glycol 17 Gm Powder (MiraLax Powder) ??17 Gm 1 pack/packet, By Mouth, Daily Senna Tablet ??8.6 mg 1 tablet, By Mouth, 2 times a day Simethicone 80 mg Chewable Tablet (Simethicone Tablet) ??80 mg, Chew, 3 times a day ? Results Recent Labs BLOOD COUNT & DIFF WBC 9.5 k/mm3 ()?? 01/06/2023 08:00 RBC 5.43 m/mm3 ()?? 01/06/2023 08:00 Hgb 14.8 Gm/dL ()?? 01/06/2023 08:00 Hct 43.6 % ()?? 01/06/2023 08:00 MCV 80.3 femtoliters ()?? 01/06/2023 08:00 MCH 27.3 pg ()?? 01/06/2023 08:00 MCHC 33.9 g/dL ()?? 01/06/2023 08:00 Platelet Count 262 k/mm3 ()?? 01/06/2023 08:00 RDW-SD 39.7 femtoliters ()?? 01/06/2023 08:00 MPV 9.8 femtoliters ()?? 01/06/2023 08:00 Nucleated RBC (Automated) 0.0 #/100 WBC'S ()?? 01/06/2023 08:00 Abs. NRBC 0.0 k/mm3 ()?? 01/06/2023 08:00 Abs. Neut 7.4 k/mm3 (High)?? 01/06/2023 08:00 Abs. Lymph 1.1 k/mm3 ()?? 01/06/2023 08:00 Abs. Routt 0.7 k/mm3 ()?? 01/06/2023 08:00 Abs. Eo 0.0 k/mm3 ()?? 01/06/2023 08:00 Abs. Baso 0.1 k/mm3 ()?? 01/06/2023 08:00 Neut % 78.9 % (High)?? 01/06/2023 08:00 Lymph % 11.6 % (Low)?? 01/06/2023 08:00 Routt % 7.7 % ()?? 01/06/2023 08:00 Eos % 0.3 % ()?? 01/06/2023 08:00 Baso % 0.7 % ()?? 01/06/2023 08:00 Imm Gran 0.8 % ()?? 01/06/2023 08:00 Abs. Imm Gran 0.1 k/mm3 ()?? 01/06/2023 08:00 ?? CARDIAC Nt-Probnp 116 pg/mL ()?? 01/06/2023 08:00 High Sensitivity Troponin (HSTnT) 30 ng/L (High)?? 01/06/2023 15:23 ?? CHEM GENERAL Sodium 131 mmol/L (Low)?? 01/07/2023 01:08 Potassium 4.3 mmol/L ()?? 01/07/2023 01:08 Chloride 96 mmol/L (Low)?? 01/07/2023 01:08 Bicarbonate Level 23 mmol/L ()?? 01/07/2023 01:08 Anion Gap 12 ()?? 01/07/2023 01:08 Glucose Level 269 mg/dL (High)?? 01/07/2023 01:08 Glucose, POC 250 mg/dL (High)?? 01/07/2023 05:25 Beta Hydroxybutyrate 0.07 mmol/L ()?? 01/07/2023 01:08 BUN 11 mg/dL ()?? 01/07/2023 01:08 Creatinine-Blood 0.7 mg/dL ()?? 01/07/2023 01:08 Estimated GFR Creatinine 107 ML/MIN/1.73 M2 ()?? 01/07/2023 01:08 Calcium 9.6 mg/dL ()?? 01/06/2023 08:00 Calcium, Ionized pH Corrected 1.23 mmol/L ()?? 01/06/2023 08:00 Magnesium 1.9 mg/dL ()?? 01/06/2023 08:00 Protein, Total 7.7 Gm/dL ()?? 01/06/2023 08:00 Albumin 5.0 Gm/dL (High)?? 01/06/2023 08:00 AG Ratio 1.9 ()?? 01/06/2023 08:00 Alkaline Phosphatase 96 units/L ()?? 01/06/2023 08:00 Lipase 62 units/L (High)?? 01/06/2023 08:00 AST (SGOT) 69 units/L (High)?? 01/06/2023 08:00 ALT (SGPT) 53 units/L (High)?? 01/06/2023 08:00 Bilirubin, Total 0.7 mg/dL ()?? 01/06/2023 08:00 ?? HEME OTHER Hold Blue Top SPECIMEN DISCARDED AFTER 4 HOURS. ()?? 01/06/2023 08:00 ?? UA/URINALYSIS Appear/Color, Urine LIGHT YELLOW ()?? 01/06/2023 09:30 Specific [place], Urine >1.050 (High)?? 01/06/2023 09:30 pH, Urine 6.0 ()?? 01/06/2023 09:30 Albumin, Urine 1+ (Abnormal)?? 01/06/2023 09:30 Glucose, Urine 4+ (Abnormal)?? 01/06/2023 09:30 Ketones, Urine TRACE (Abnormal)?? 01/06/2023 09:30 Bilirubin, Urine NEGATIVE ()?? 01/06/2023 09:30 Hemoglobin, Urine NEGATIVE ()?? 01/06/2023 09:30 Nitrite, Urine NEGATIVE ()?? 01/06/2023 09:30 Leukocyte, Urine NEGATIVE ()?? 01/06/2023 09:30 Urobilinogen NORMAL mg/dL ()?? 01/06/2023 09:30 WBC's, Urine <1 /HPF ()?? 01/06/2023 09:30 RBC's, Urine NONE SEEN /HPF ()?? 01/06/2023 09:30 Hold Urine Culture Testing available 48 hours from time of collection. ()?? 01/06/2023 09:30 ?? VIROLOGY COVID-19 by RT-PCR NEGATIVE ()?? 01/07/2023 01:09 ? Urinalysis Albumin, Urine: 1+ Abnormal (09:30) Appear/Color, Urine: LIGHT YELLOW (09:30) Bilirubin, Urine: NEGATIVE (09:30) Glucose, Urine: 4+ Abnormal (09:30) Hemoglobin, Urine: NEGATIVE (09:30) Hold Urine Culture: Testing available 48 hours from time of collection. (09:30) Ketones, Urine: TRACE Abnormal (09:30) Leukocyte, Urine: NEGATIVE (09:30) Nitrite, Urine: NEGATIVE (09:30) pH, Urine: 6 (09:30) RBC's, Urine: NONE SEEN (09:30) Specific [place], Urine:??>1.050??High (09:30) Urobilinogen: NORMAL (09:30) WBC's, Urine: <1 (09:30) ?? Microbiology ?? COVID-19 (Novel Coronavirus), Rapid PCR?? Completed?? Source: Nasal Body Site: Nose Collected Dt/Tm: 01/07/2023 00:15 Last Updated Dt/Tm: 01/07/2023 02:22 ? Cardiology Labs Nt-Probnp: 116 pg/mL (01/06/23 08:00:00) High Sensitivity Troponin (HSTnT):??30 ng/L??High (01/06/23 15:23:00) High Sensitivity Troponin (HSTnT):??30 ng/L??High (01/06/23 08:00:00) ?? Note * Katia Nelson LPN: PERFORM Event Display: Discharge/Transfer Note Hospital Authored Date: [id number] Nursing Discharge Note Entered On: 01/07/2023 14:33 EDT Performed On: 01/07/2023 13:25 EDT by Katia Nelson LPN Nursing Discharge Note 2 Discharge Time : 01/07/2023 13:25 EDT Discharge Level of Care at Discharge : Home/Chcf/Foster Care Patient Left Unit Via : Wheelchair Patient Accompanied Off Unit with : Responsible adult DC Instructions Provided & Signed by Pt : Yes Patient Understands D/C Instructions : Yes Patient Instructions Discharge Signed : Yes Did Pt have Specialty Bed or Wound Vac : No Katia Nelson LPN - 01/07/2023 14:37 EDT * Liborio Wallace DO: PERFORM Event Display: Discharge/Transfer Note Hospital Authored Date: [id number] Patient: ??FABRICIO, KYLE ? Age:??62 Years?Sex:??Male?:??1960?? Patient Information Discharge Location: B Primary Care Physician: Terrell Long DO Admit Date/Time: 01/06/23 06:18 Discharge: 01/07/2023 Discharge Disposition Discharge Disposition: Home: No Services Discharge Diagnosis Nausea and vomiting (R11.2) Diabetes mellitus, type II (E11.9) Centrilobular emphysema (J43.2) Chronic hyponatremia (E87.1) HTN (hypertension) (I10) Hyperlipidemia (E78.5) Major depression, recurrent (F33.9) Schizoaffective disorder (F25.9) ?? _ Discharge Medications Atorvastatin (atorvastatin 40 mg oral tablet)?1?tab(s)?40?Milligram?By Mouth?Daily?for 90?Days Fenofibrate (fenofibrate 54 mg oral tablet)?1?tab(s)?54?Milligram?By Mouth?Daily Lisinopril (lisinopril 5 mg oral tablet)?5?Milligram?1?tablet?By Mouth?Daily Metformin (metFORMIN 500 mg oral tablet)?2?tab(s)?1,000?Milligram?By Mouth?2 times a day before breakfast and dinne Metoprolol (metoprolol 25 mg oral tablet, extended release)?25?Milligram?1?tablet?ByMouth?Daily?for 90?Days Ondansetron (ondansetron 4 mg oral tablet, disintegrating)?1?tab(s)?4?Milligram?By Mouth?Every 8 hours?as needed?as needed for nausea/vomiting?allow tablet to dissolve on tongue Oxycodone (oxyCODONE 5 mg oral tablet)?5?Milligram?1?tablet?By Mouth?Every 6 hours?as needed?for 3?Days?Pain , Severe Pantoprazole (pantoprazole 40 mg oral delayed release tablet)?1?tab(s)?40?Milligram?By Mouth?Daily Quetiapine (QUEtiapine 100 mg oral tablet)?100?Milligram?1?tablet?By Mouth?Daily at bedtime Quetiapine (SEROquel 25 mg oral tablet)?50?Milligram?2?tablet?By Mouth?Daily in AM Sertraline (sertraline 50 mg oral tablet)?2?tab(s)?100?Milligram?By Mouth?Daily? Medications Started Ondansetron (ondansetron 4 mg oral tablet, disintegrating)?1?tab(s)?4?Milligram?By Mouth?Every 8 hours?as needed?as needed for nausea/vomiting?allow tablet to dissolve on tongue Oxycodone (oxyCODONE 5 mg oral tablet)?5?Milligram?1?tablet?By Mouth?Every 6 hours?as needed?for 3?Days?Pain , Severe Medications Discontinued none Doses Changed none Allergies Allergies ?(Active and Proposed Allergies Only) Other Environmental Allergy? (Severity: Persistent Mild, Onset: Unknown) ?Reactions: Wool ?Comments: RASH ?Comments: Wool No Known Medication Allergies? (Severity: Unknown severity, Onset: Unknown) ? PCP Follow-Up/Heads-Up pt presented with nausea, vomiting and abdominal pain likely gastroenteritis follow up on chronic leg pain follow up on hyponatremia follow up on abnormal LFTs Hospital Course 62-year-old male with PMH of type 2 diabetes mellitus, HTN, HLD, COPD , polysubstance use disorder (used to be on Suboxone but has not used in the last 3 weeks) presented from [facility] due to nausea, vomiting and abdominal pain for 5 days. Patient unable to tolerate p.o and complaining of bilateral leg pain, which is chronic, and requesting pain medications. In ED patient vitals stable, labs relatively unremarkable except for mild hyponatremia and mildly elevated LFTs. CT abdomen demonstrated mild stool retention and no other acute pathologies. Pt given famotidine, Maalox, zofrain, Dilaudid and IVF, and was admitted to observation for further management. On day of discharge patient re ports improvement in nausea, has not vomited since ED, states he still has bilateral leg pain whichis chronic. Pt has appointment with PCP in the following week. Pt is hemodynamically stable and will be discharged. ?? Nausea and vomiting (R11.2) - improving Abdominal pain - improving ??Polysubstance use disorder likely due to??gastroenteritis ?? - plan: Zofran and oxycodone on discharge. Pt to follow up with PCP on??chronic leg pain ?? Diabetes mellitus, type II (E11.9):??restart metformin 1000mg BID Centrilobular emphysema (J43.2)??currently on room air, satting well. Patient states he does not use any inhalers at home Chronic hyponatremia (E87.1)??asymptomatic, PCP to follow up HTN (hypertension) (I10)L??continue lisinopril 5 mg daily, metoprolol 25 mg daily Hyperlipidemia (E78.5)??continue??atorvastatin 40 mg daily and fenofibrate 54 mg daily Major depression and Schizoaffective disorder: continue Sertraline 100 mg daily , Quetiapine 100 mgdaily at bedtime and 50 mg daily in a.m. ?? Objective Measurements?? Weight: 79.8 kg (01/07/23) ?? Vital Signs?? Temperature: 97.5 DegF (01/07/23 10:39:00) Temperature Route: Oral (01/07/23 10:39:00) Pulse Rate: 75 bpm (01/07/23 10:39:00) Respiratory Rate: 20 br/min (01/07/23 10:39:00) Systolic Blood Pressure: 126 mm Hg (01/07/23 10:39:00) Diastolic Blood Pressure: 79 mm Hg (01/07/23 10:39:00) Blood pressure sites: Arm, right (01/07/23 10:39:00) Mean Arterial Pressure: 95 mm Hg (01/07/23 10:39:00) Pulse Pressure: 47 mm Hg (01/07/23 10:39:00) Oxygen Saturation: 96 % (01/07/23 10:39:00) Mode of Delivery (Oxygen): Room air (01/07/23 10:39:00) Early Warning Score: 3 (01/07/23 10:48:06) ? . Physical Exam Constitutional: Alert, in no distress. Mental Status: Oriented to person, place and time. Respiratory: Clear to auscultation. No wheezing, rales or rhonchi. Cardiovascular: S1 S2 regular. No murmurs, rubs or gallops. Gastrointestinal: Abdomen soft, non-tender, non-distended. Normal bowel sounds. Neurologic: Cranial nerves II-XII grossly intact. No focal neurological deficits. Moves all extremities spontaneously. Sensation intact bilaterally. Normal Strength in UE and LE Skin: No rashes or lesions. No petechiae or purpura.?? Musculoskeletal: No cyanosis or clubbing. No gross deformities. Normal range of motion. Consultants none Patient Education Titles Oxycodone Oral Tablet?? Vomiting (Adult)?? Follow-Up Appointments Added Follow Up ?Time Frame ?Comments Please restart metformin from 01/09/23 [facility]?for the follow upabnormal LFTs Post Discharge Care Discharge ?01/07/23 9:58:00 EDT Discharge Prescriptions ?ePrescribed, ??01/07/23 9:58:00 EDT Results Discharge Labs BLOOD COUNT & DIFF WBC 9.5 k/mm3 ()?? 01/06/2023 08:00 RBC 5.43 m/mm3 ()?? 01/06/2023 08:00 Hgb 14.8 Gm/dL ()?? 01/06/2023 08:00 Hct 43.6 % ()?? 01/06/2023 08:00 MCV 80.3 femtoliters ()?? 01/06/2023 08:00 MCH 27.3 pg ()?? 01/06/2023 08:00 MCHC 33.9 g/dL ()?? 01/06/2023 08:00 Platelet Count 262 k/mm3 ()?? 01/06/2023 08:00 RDW-SD 39.7 femtoliters ()?? 01/06/2023 08:00 MPV 9.8 femtoliters ()?? 01/06/2023 08:00 Nucleated RBC (Automated) 0.0 #/100 WBC'S ()?? 01/06/2023 08:00 Abs. NRBC 0.0 k/mm3 ()?? 01/06/2023 08:00 Abs. Neut 7.4 k/mm3 (High)?? 01/06/2023 08:00 Abs. Lymph 1.1 k/mm3 ()?? 01/06/2023 08:00 Abs. Routt 0.7 k/mm3 ()?? 01/06/2023 08:00 Abs. Eo 0.0 k/mm3 ()?? 01/06/2023 08:00 Abs. Baso 0.1 k/mm3 ()?? 01/06/2023 08:00 Neut % 78.9 % (High)?? 01/06/2023 08:00 Lymph % 11.6 % (Low)?? 01/06/2023 08:00 Routt % 7.7 % ()?? 01/06/2023 08:00 Eos % 0.3 % ()?? 01/06/2023 08:00 Baso % 0.7 % ()?? 01/06/2023 08:00 Imm Gran 0.8 % ()?? 01/06/2023 08:00 Abs. Imm Gran 0.1 k/mm3 ()?? 01/06/2023 08:00 ?? CARDIAC Nt-Probnp 116 pg/mL ()?? 01/06/2023 08:00 High Sensitivity Troponin (HSTnT) 30 ng/L (High)?? 01/06/2023 15:23 ?? CHEM GENERAL Sodium 131 mmol/L (Low)?? 01/07/2023 01:08 Potassium 4.3 mmol/L ()?? 01/07/2023 01:08 Chloride 96 mmol/L (Low)?? 01/07/2023 01:08 Bicarbonate Level 23 mmol/L ()?? 01/07/2023 01:08 Anion Gap 12 ()?? 01/07/2023 01:08 Glucose Level 269 mg/dL (High)?? 01/07/2023 01:08 Glucose, POC 329 mg/dL (High)?? 01/07/2023 10:44 Beta Hydroxybutyrate 0.07 mmol/L ()?? 01/07/2023 01:08 BUN 11 mg/dL ()?? 01/07/2023 01:08 Creatinine-Blood 0.7 mg/dL ()?? 01/07/2023 01:08 Estimated GFR Creatinine 107 ML/MIN/1.73 M2 ()?? 01/07/2023 01:08 Calcium 9.6 mg/dL ()?? 01/06/2023 08:00 Calcium, Ionized pH Corrected 1.23 mmol/L ()?? 01/06/2023 08:00 Magnesium 1.9 mg/dL ()?? 01/06/2023 08:00 Protein, Total 7.7 Gm/dL ()?? 01/06/2023 08:00 Albumin 5.0 Gm/dL (High)?? 01/06/2023 08:00 AG Ratio 1.9 ()?? 01/06/2023 08:00 Alkaline Phosphatase 96 units/L ()?? 01/06/2023 08:00 Lipase 62 units/L (High)?? 01/06/2023 08:00 AST (SGOT) 69 units/L (High)?? 01/06/2023 08:00 ALT (SGPT) 53 units/L (High)?? 01/06/2023 08:00 Bilirubin, Total 0.7 mg/dL ()?? 01/06/2023 08:00 ?? HEME OTHER Hold Blue Top SPECIMEN DISCARDED AFTER 4 HOURS. ()?? 01/06/2023 08:00 ? UA/URINALYSIS Appear/Color, Urine LIGHT YELLOW ()?? 01/06/2023 09:30 Specific [place], Urine >1.050 (High)?? 01/06/2023 09:30 pH, Urine 6.0 ()?? 01/06/2023 09:30 Albumin, Urine 1+ (Abnormal)?? 01/06/2023 09:30 Glucose, Urine 4+ (Abnormal)?? 01/06/2023 09:30 Ketones, Urine TRACE (Abnormal)?? 01/06/2023 09:30 Bilirubin, Urine NEGATIVE ()?? 01/06/2023 09:30 Hemoglobin, Urine NEGATIVE ()?? 01/06/2023 09:30 Nitrite, Urine NEGATIVE ()?? 01/06/2023 09:30 Leukocyte, Urine NEGATIVE ()?? 01/06/2023 09:30 Urobilinogen NORMAL mg/dL ()?? 01/06/2023 09:30 WBC's, Urine <1 /HPF ()?? 01/06/2023 09:30 RBC's, Urine NONE SEEN /HPF ()?? 01/06/2023 09:30 Hold Urine Culture Testing available 48 hours from time of collection. ()?? 01/06/2023 09:30 ?? VIROLOGY COVID-19 by RT-PCR NEGATIVE ()?? 01/07/2023 01:09 ? Microbiology ?? COVID-19 (Novel Coronavirus), Rapid PCR?? Completed?? Source: Nasal Body Site: Nose Collected Dt/Tm: 01/07/2023 00:15 Last Updated Dt/Tm: 01/07/2023 02:22 ? Imaging(s) ?CT Abd/Pelvis W/ IV + Oral Contrast ?? 01/06/2023 09:50??by Curtis Carmona MD ?RESULT: CT Abd/Pelvis W/ IV + Oral Contrast CT Abd/Pelvis W/ IV + Oral Contrast ?? INDICATION: Abdominal pain, nausea and vomiting for 3 days. ?? TECHNIQUE: Helical CT scan through the abdomen and pelvis with IV contrast formatted in 3 planes with enteric contrast. 100 cc of Omnipaque 300 was administered intravenously.Weight-based protocol using automatic tube modulation was used to optimize exposure parameters. ?? COMPARISON: None ?? FINDINGS: ?? SOCIAL SERVICE TECHNICIAN VIEW FINDINGS, LINES AND TUBES: None. ?? LOWER CHEST: Clear lungs. No pleural abnormalities. Normal heart size. No pericardial effusion. ?? DIAPHRAGM: Normal. ?? LIVER: Fatty liver. No mass. ?? GALLBLADDER, BILE DUCTS AND SAILAJA HEPATIS: Normal. ?? SPLEEN: Normal. ?? PANCREAS: Normal. ?? ADRENAL GLANDS: Normal. ?? RIGHT KIDNEY AND URETER: Normal. ?? LEFT KIDNEY AND URETER: Normal. ?? URINARY BLADDER: Normal. ?? STOMACH, SMALL BOWEL AND LARGE BOWEL: Mild stool retention but otherwise normal. No evidence of intestinal inflammation, obstruction or mass. ?? APPENDIX: Normal. ?? REPRODUCTIVE ORGANS: Normal prostate and seminal vesicles. ?? OMENTUM, PERITONEUM AND MESENTERY: No ascites, pneumoperitoneum or omental lesions ?? LYMPH NODES: Normal. ?? VASCULATURE: Severe atherosclerotic vascular calcification and mild infrarenal ectasia at 2.6 cm but no aneurysm. No periaortic inflammation or hemorrhage. No venous thrombosis. ?? ABDOMINAL WALL and RETROPERITONEAL MUSCLES: Normal. ?? BONES: * No acute findings. * Stable T12 compression deformity. * Old healed right pelvic fracture. ?? IMPRESSION: ?? 1. Mild stool retention but no other evidence of an acute process. ?? 2. Fatty liver. ? Patient??discussed with attending physician Dr. Ramos ?? Liborio Wallace, DO Internal Medicine, PGY-1 Pager [phone]??minutes spent on discharge * Katia Nelson LPN: PERFORM Event Display: Patient Education/Instruction Authored Date: Inpatient Adult Discharge Instructions [place] [id number] Name: KYLE REGALADO : 1960 Visit: 01/06/2023 06:18:00 Current Date: 01/07/2023 12:28 Account: [id number] Inpatient Adult Discharge Instructions We would like to thank you for allowing us to assist you with your healthcare needs. The following includes patient education materials and information regarding your injury/illness. Our entire staffstrives to provide an excellent experience for our patients and their families. PLEASE ENSURE YOU FOLLOW-UP PER THE INSTRUCTIONS BELOW! ?? YOUR OPINION IS IMPORTANT TO US! Please complete the survey you may receive by mail or email. Your feedback will be used to make improvements to the healthcare experiences of our patients and their families. Surveys are administered by [employer] ?? If further treatment with your primary care physician or another doctor is recommended, it is important for you to keep the appointment. Call your primary care physician or return to the Emergency Department immediately if your condition worsens, fails to improve, or new symptoms develop. If you need to find a doctor, you can call [facility] for a referral at [phone] or toll free at [phone] or log in to [email or web address] ?? [facility], in keeping with [facility] guidance, no longer requires face masks for staff, patientsor visitors in most situations. Similiar to time spent indoors at other locations, there is the chance that you were exposed to repiratory viruses during your time with us (such as flu or COVID-19). If you develop symptoms concerning for a viral respiratory infection, please seek testing (and treatment if indicated) from your medical provider or home test kit. ?? You can view and manage your care through the patient portal or by using a health care gina of your choosing. [employer] is a website that allows you to securely view your medical information including your hospital discharge summary, office visit summaries, medications and follow-up visits. You can also request appointments, renew medications, and request access to your medical information using a health care gina of your choosing, or just ask a question. You can enroll at [email or web address] or register during your next office visit. You have been discharged from [facility], Patient Care Unit: D3B. If you have any questions regarding these instructions after you leave, please call us and we will be happy to assist you. [facility] Your Care Team Attending Physician Merced Ramos MD Discharging Providers Merced Ramos MD Reason for Admission pt w/abd pain, nausea and vomiting for 3 days. Called EMS thinking POC was low, found in 400s. Alsowith high BP. Vomitied w/ EMS-clear. Your Diagnosis Nausea and vomiting Hyperlipidemia HTN (hypertension) Schizoaffective disorder Major depression, recurrent Diabetes mellitus, type II Centrilobular emphysema Chronic hyponatremia Tests Performed Below is a partial list of the tests performed during your hospitalization. You may have had other tests and procedures not included in this list. Please discuss all test results with your provider. Beta Hydroxybutyrate BUN Calcium Ionized CBC w/ Differential Comprehensive Metabolic Panel COVID-19 (Novel Coronavirus), Rapid PCR Creatinine Electrolytes Glucose Level GLUCOSE POC High??Sensitivity??Troponin T HOLD BLUE TUBE Lipase Magnesium Level ProBNP Troponin T, High Sensitivity Urinalysis w/hold for Urine Culture CT Abd/Pelvis W/ IV + Oral Contrast Primary Care Provider Terrell Long DO [facility] Proxy on File No Discharge Vitals Temperature: 97.5 DegF Weight: 79.8 kg Pulse Rate: 75 bpm ?? Respiratory Rate: 20 br/min ?? Systolic Blood Pressure: 126 mm Hg ?? Diastolic Blood Pressure: 79 mm Hg ?? Oxygen Saturation: 96 % ?? Studies Pending All tests and labs ordered during this hospital stay have been completed unless listed below. Please discuss all pending results with your provider listed above in these instructions. ?? Blood Gas Arterial What to do next Instructions From Your Doctor DIAGNOSIS: Gastritis You were seen and evaluated in the ER for your symptoms. We think you may have gastritis because the medications seemed to help you. ?? TEST RESULTS: Elevated liver function tests, please see your doctor about this ? Your specific PATIENT CARE INSTRUCTIONS (what to do / when to return): Please return to the ED for fevers, vomiting, diarrhea, chest pain, shortness of breath, cough, inability to eat or drink, or any other new or concerning symptoms. ?? MEDICATIONS (what medications you should start (or stop) taking): Isaac sent to the pharmacy Tylenol for discomfort Maalox per package directions Discharge Orders You Need to Schedule the Following Appointments Follow Up with??Please restart metformin from 01/09/23 Follow Up with??Prescription has been sent to pharmacy in [facility] Follow Up with??Terrell Long DO When:??Within 5 to 7 days Why: for the follow up abnormal LFTs Where: [address] [place] [address]- Discharge Medications KYLE REGALADO :1960 Visit Date:01/06/2023 Medications: Please continue your medications until treatment is completed or stopped by your provider. Medications not listed below should be discontinued. Discuss any questions related to medications with your provider. What How Much When Why Instructions Next Dose New Oxycodone (oxyCODONE 5 mg oral tablet) 1 tab(s) Oral Every 6 hours as needed for Pain , Severe Duration: 3 Days Pickup at [facility] 3 As needed follow as prescribe Unchanged Atorvastatin (atorvastatin 40 mg oral tablet) 1 tab(s) Oral Daily Hyperlipidemia Duration: 90 Days 01/08/23 Unchanged Fenofibrate (fenofibrate 54 mg oral tablet) 1 tab(s) Oral Daily 01/08/23 Unchanged Lisinopril (lisinopril 5 mg oral tablet) 1 tab(s) Oral Daily 01/08/23 Unchanged Metformin (metFORMIN 500 mg oral tablet) 2 tab(s) Oral 2 times a day before breakfast and dinner follow as prescribe Unchanged Metoprolol (metoprolol 25 mg oral tablet, extended release) 1 tab(s) Oral Daily HTN (hypertension) Duration: 90 Days 01/08/23 Unchanged Ondansetron (ondansetron 4 mg oral tablet, disintegrating) 1 tab(s) Oral Every 8 hours as needed for as needed for nausea/vomiting allow tablet to dissolve on tongue ?? Pickup at [facility] 3 as needed follow as prescribe Unchanged Pantoprazole (pantoprazole 40 mg oral delayed release tablet) 1 tab(s) Oral Daily 01/08/23 Unchanged Quetiapine (QUEtiapine 100 mg oral tablet) 1 tab(s) Oral Daily at Bedtime Schizoaffective disorder Major depression, recurrent 01/07/23 bedtime Unchanged Quetiapine (SEROquel 25 mg oral tablet) 2 tab(s) Oral Daily in the morning 01/08/23 Unchanged Sertraline (sertraline 50 mg oral tablet) 2 tab(s) Oral Daily 01/08/23 Pharmacy Information [facility] 3: [address], [place] [id number] [phone] ?? What How Much When Comments Stop Taking Aluminum Hydroxide (aluminum hydroxide 320 mg/ 5 ml oralsuspension) 10 Milliliter Oral 3 times a day after meals and bedtime Duration: 10 Days with a full glass of water ?? Stop Taking Buprenorphine-Naloxone (buprenorphine-naloxone 2 mg-0.5 mg sublingual film) 2 Film Sublingual Daily Stop Taking Buprenorphine-Naloxone (buprenorphine-naloxone 8 mg-2 mg sublingual film) 1 Film Sublingual Daily Stop Taking efinaconazole topical (efinaconazole 10% topical solution) 1 gina Topically Daily Duration: 48 week(s) Stop Taking Ibuprofen (ibuprofen 200 mg oral capsule) 2 capsule Oral Twice a day as needed for for pain Stop Taking Insulin Lispro (insulin lispro 100 units/ mL injectable solution) 4-12 units Subcutaneous Injection 3 times a day before meals 200-250- 4 UNITS 251-300 6 UNITS 301-350 8 UNITS 351-400 10 UNITS 401-450 12 UNITS GREATER THAN 450 NOTIFY PROVIDER ?? Stop Taking Sulfamethoxazole/ Trimethoprim (trimethoprim-sulfamethoxazole DS) 160 Milligram Oral Twice a day Test Results Below is a partial list of the most recent Laboratory test results done prior to this discharge. You may have had other tests and procedures not included in this list. Please discuss all test resultswith your provider. Beta Hydroxybutyrate (01/07/2023) ???Beta Hydroxybutyrate - 0.07 mmol/L BUN (01/07/2023) ???BUN - 11 mg/dL Calcium Ionized (01/06/2023) ???Calcium, Ionized pH Corrected - 1.23 mmol/L CBC w/ Differential (01/06/2023) ???WBC - 9.5 k/mm3???RBC - 5.43 m/mm3???Hgb - 14.8 Gm/dL???Hct - 43.6 %???MCV - 80.3 femtoliters???MCH - 27.3 pg???MCHC - 33.9 g/dL???Platelet Count - 262 k/mm3???RDW-SD - 39.7 femtoliters???MPV - 9.8 femtoliters???Nucleated RBC (Automated) - 0.0 #/100 WBC'S???Abs. NRBC - 0.0 k/mm3???Abs. Neut - 7.4 k/mm3???Abs. Lymph - 1.1 k/mm3???Abs. Routt - 0.7 k/mm3???Abs. Eo - 0.0 k/mm3???Abs. Baso - 0.1 k/mm3???Neut % - 78.9 %???Lymph % - 11.6 %???Routt % - 7.7 %???Eos % - 0.3 %???Baso % - 0.7 %???Imm Gran- 0.8 %???Abs. Imm Gran - 0.1 k/mm3 Comprehensive Metabolic Panel (01/06/2023) ???Sodium - 132 mmol/L???Potassium - 4.6 mmol/L???Chloride - 97 mmol/L???Bicarbonate Level - 19 mmol/L???Anion Gap - 16???Glucose Level - 345 mg/dL???BUN - 12 mg/dL???Creatinine-Blood - 0.6 mg/dL???Estimated GFR Creatinine - 108 ML/MIN/1.73 M2???Calcium - 9.6 mg/dL???Protein, Total - 7.7 Gm/dL???Alb umin - 5.0 Gm/dL???AG Ratio - 1.9???Alkaline Phosphatase - 96 units/L???AST (SGOT) - 69 units/L???ALT (SGPT) - 53 units/L???Bilirubin, Total - 0.7 mg/dL COVID-19 (Novel Coronavirus), Rapid PCR (01/07/2023) ???COVID-19 by RT-PCR - NEGATIVE Creatinine (01/07/2023) ???Creatinine-Blood - 0.7 mg/dL???Estimated GFR Creatinine - 107 ML/MIN/1.73 M2 Electrolytes (01/07/2023) ???Sodium - 131 mmol/L???Potassium - 4.3 mmol/L???Chloride - 96 mmol/L???Bicarbonate Level - 23 mmol/L???Anion Gap - 12 Glucose Level (01/07/2023) ???Glucose Level - 269 mg/dL GLUCOSE POC (01/07/2023) ???Glucose, POC - 329 mg/dL High??Sensitivity??Troponin T (01/06/2023) ???High Sensitivity Troponin (HSTnT) - 30 ng/L HOLD BLUE TUBE (01/06/2023) ???Hold Blue Top - SPECIMEN DISCARDED AFTER 4 HOURS. Lipase (01/06/2023) ???Lipase - 62 units/L Magnesium Level (01/06/2023) ???Magnesium - 1.9 mg/dL ProBNP (01/06/2023) ???Nt-Probnp - 116 pg/mL Troponin T, High Sensitivity (01/06/2023) ???High Sensitivity Troponin (HSTnT) - 30 ng/L Urinalysis w/hold for Urine Culture (01/06/2023) ? ?Appear/Color, Urine - LIGHT YELLOW? ?Specific [place], Urine - >1.050? ?pH, Urine - 6.0? ?Albumin, Urine - 1+???Glucose, Urine - 4+???Ketones, Urine - TRACE???Bilirubin, Urine - NEGATIVE???Hemoglobin, Urine - NEGATIVE???Nitrite, Urine - NEGATIVE???Leukocyte, Urine - NEGATIVE???Urobilinogen - NORMAL? ?WBC's, Urine - <1 /HPF? ?RBC's, Urine - NONE SEEN? ?Hold Urine Culture - Testing available 48 hours from time of collection. Allergies (NKA means No Known Allergies) Other Environmental Allergy??(Wool) No Known Medication Allergies Problems Active Problems??(27) Abdominal aortic ectasia?? Calcification of abdominal aorta?? Centrilobular emphysema?? Chronic hyponatremia?? Chronic low back pain?? Chronic obstructive pulmonary disease?? Chronic pain of both knees?? Chronic pain syndrome?? Compression fracture of spine?? Diabetes mellitus, type II?? Duodenal ulcer?? Environmental allergies?? Gastritis?? GI bleed?? History of lung cancer?? Homelessness?? HTN (hypertension)?? Hyperlipidemia?? Major depression, recurrent?? Mixed hyperlipidemia?? OA (osteoarthritis)?? Opiate dependence?? Schizoaffective disorder?? Smoking?? Substance abuse in remission?? Type 2 diabetes mellitus with diabetic peripheral angiopathy without gangrene?? Wedge compression fracture of L1 vertebra?? Education Materials Below is the list of Educational Leaflet Providered with your Discharge Instructions. Oxycodone Oral Tablet?? Vomiting (Adult)?? Valuables and Belongings I fully understand and agree that [facility] accepts no responsibility for all my personal property including clothing, toilet articles, radios, jewelry, dentures, hearing aids, rings, money, or any other property that is in my possession or is brought to me after admission. I understand certain valuables may be placed in a hospital safe for a short period of time. I understand that the hospital is not liable for loss or damage due to accident, fire, or other natural occurrence while said property is in the safe. I accept full responsibility for any personal property that I keep with me, and will not hold the hospital responsible in case of loss or disappearance. I acknowledge that i have been encouraged to send valuables and belongings home. ?? No Valuables/Belongings: No valuables/belongings present Date for Pt to Sign Valuables/Belongings: 01/07/23 03:41:00 ?? Other Discharge Information ? Pulmonary Rehab Status?? Pulmonary Rehab Discharge Status?? Respiratory Rate: 20 br/min ? Common Emergency Awareness Tips IS IT A STROKE? Act FAST and Check for these signs: FACE Does the face look uneven? ARM Does one arm drift down? SPEECH Does their speech sound strange? TIME Call at any sign of stroke ?? Heart Attack Signs Chest discomfort: Most heart attacks involve discomfort in the center of the chest and lasts more than a few minutes, or goes away and comes back. It can feel like uncomfortable pressure, squeezing, fullness or pain. Discomfort in upper body: Symptoms can include pain or discomfort in one or both arms, back, neck, jaw or stomach. Shortness of breath: With or without discomfort. Other signs: Breaking out in a cold sweat, nausea, or lightheaded. Remember, MINUTES DO MATTER. If you experience any of these heart attack warning signs, call to get immediate medical attention! ?? Smoking can increase your chances of developing chronic health problems and can cause harmful effects to other family members in your house. If you smoke, you are strongly encouraged to quit. Please call [facility] [employer] Link at [phone] or [phone] ([phone]) or log in to [email or web address] for referrals to smoking cessation programs. ?? 107 Suicide & Crisis Lifeline is available 17/11 if you or someone you know needs to find a reason to keep living. By calling 771 you'll be connected to a skilled, trained counselor at a crisis center in your area. INPATIENT DISCHARGE INSTRUCTIONS SIGNATURE PAGE KYLE REGALADO Location:[facility] Registration Date and Time:01/06/2023 06:18 EDT Primary Care Physician: Terrell Long DO, Attending Physician: Merced Ramos MD, I KYLE REGALADO, have received the above patient education materials/instructions and have verbalizedunderstanding. If ambulance or transport services are being used I further acknowledge being given a choice of service. ?? If you need to contact me, please call me at this number: . Patient/Senior Internal Auditor Name: Patient/Senior Internal Auditor Signature: Relationship to Patient: Witness Name/Signature: Date: * Katia Nelson LPN: PERFORM Event Display: Patient Education/Instruction Authored Date: [id number] Inpatient Adult Discharge Instructions [address] [address] Name: Jan REGALADO : 1960 Visit: 01/06/2023 06:18:00 Current Date: 01/07/2023 12:28 Account: [id number] Inpatient Adult Discharge Instructions We would like to thank you for allowing us to assist you with your healthcare needs. The following includes patient education materials and information regarding your injury/illness. Our entire staffstrives to provide an excellent experience for our patients and their families. PLEASE ENSURE YOU FOLLOW-UP PER THE INSTRUCTIONS BELOW! ?? YOUR OPINION IS IMPORTANT TO US! Please complete the survey you may receive by mail or email. Your feedback will be used to make improvements to the healthcare experiences of our patients and their families. Surveys are administered by [employer] ?? If further treatment with your primary care physician or another doctor is recommended, it is important for you to keep the appointment. Call your primary care physician or return to the Emergency Department immediately if your condition worsens, fails to improve, or new symptoms develop. If you need to find a doctor, you can call [facility] Link for a referral at [phone] or toll free at [phone] ([phone]) or log in to [email or web address].. ?? [facility], in keeping with [facility] guidance, no longer requires face masks for staff, patientsor visitors in most situations. Similiar to time spent indoors at other locations, there is the chance that you were exposed to repiratory viruses during your time with us (such as flu or COVID-19). If you develop symptoms concerning for a viral respiratory infection, please seek testing (and treatment if indicated) from your medical provider or home test kit. ?? You can view and manage your care through the patient portal or by using a health care gina of your choosing. [employer] is a website that allows you to securely view your medical information including your hospital discharge summary, office visit summaries, medications and follow-up visits. You can also request appointments, renew medications, and request access to your medical information using a health care gina of your choosing, or just ask a question. You can enroll at [email or web address] or register during your next office visit. You have been discharged from [facility], Patient Care Unit: D3B. If you have any questions regarding these instructions after you leave, please call us and we will be happy to assist you. [facility] Your Care Team Attending Physician Merced Ramos MD Discharging Providers Merced Ramos MD Reason for Admission pt w/abd pain, nausea and vomiting for 3 days. Called EMS thinking POC was low, found in 400s. Alsowith high BP. Vomitied w/ EMS-clear. Your Diagnosis Nausea and vomiting Hyperlipidemia HTN (hypertension) Schizoaffective disorder Major depression, recurrent Diabetes mellitus, type II Centrilobular emphysema Chronic hyponatremia Tests Performed Below is a partial list of the tests performed during your hospitalization. You may have had other tests and procedures not included in this list. Please discuss all test results with your provider. Beta Hydroxybutyrate BUN Calcium Ionized CBC w/ Differential Comprehensive Metabolic Panel COVID-19 (Novel Coronavirus), Rapid PCR Creatinine Electrolytes Glucose Level GLUCOSE POC High??Sensitivity??Troponin T HOLD BLUE TUBE Lipase Magnesium Level ProBNP Troponin T, High Sensitivity Urinalysis w/hold for Urine Culture CT Abd/Pelvis W/ IV + Oral Contrast Primary Care Provider Terrell Long DO [facility] Care Proxy on File No Discharge Vitals Temperature: 97.5 DegF Weight: 79.8 kg Pulse Rate: 75 bpm ?? Respiratory Rate: 20 br/min ?? Systolic Blood Pressure: 126 mm Hg ?? Diastolic Blood Pressure: 79 mm Hg ?? Oxygen Saturation: 96 % ?? Studies Pending All tests and labs ordered during this hospital stay have been completed unless listed below. Please discuss all pending results with your provider listed above in these instructions. ?? Blood Gas Arterial What to do next Instructions From Your Doctor DIAGNOSIS: Gastritis You were seen and evaluated in the ER for your symptoms. We think you may have gastritis because the medications seemed to help you. ?? TEST RESULTS: Elevated liver function tests, please see your doctor about this ? Your specific PATIENT CARE INSTRUCTIONS (what to do / when to return): Please return to the ED for fevers, vomiting, diarrhea, chest pain, shortness of breath, cough, inability to eat or drink, or any other new or concerning symptoms. ?? MEDICATIONS (what medications you should start (or stop) taking): Isaac sent to the pharmacy Tylenol for discomfort Maalox per package directions Discharge Orders You Need to Schedule the Following Appointments Follow Up with??Please restart metformin from 01/09/23 Follow Up with??Prescription has been sent to pharmacy in [facility] Follow Up with??Ethan DO, Terrell When:??Within 5 to 7 days Why: for the follow up abnormal LFTs Where: [address] [place] [address]- Discharge Medications FABRICIOKYLE Madden :1960 Visit Date:01/06/2023 Medications: Please continue your medications until treatment is completed or stopped by your provider. Medications not listed below should be discontinued. Discuss any questions related to medications with your provider. What How Much When Why Instructions Next Dose New Oxycodone (oxyCODONE 5 mg oral tablet) 1 tab(s) Oral Every 6 hours as needed for Pain , Severe Duration: [facility] follow as prescribe Unchanged Atorvastatin (atorvastatin 40 mg oral tablet) 1 tab(s) Oral Daily Hyperlipidemia Duration: 90 Days 01/08/23 Unchanged Fenofibrate (fenofibrate 54 mg oral tablet) 1 tab(s) Oral Daily 01/08/23 Unchanged Lisinopril (lisinopril 5 mg oral tablet) 1 tab(s) Oral Daily 01/08/23 Unchanged Metformin (metFORMIN 500 mg oral tablet) 2 tab(s) Oral 2 times a day before breakfast and dinner follow as prescribe Unchanged Metoprolol (metoprolol 25 mg oral tablet, extended release) 1 tab(s) Oral Daily HTN (hypertension) Duration: 90 Days 01/08/23 Unchanged Ondansetron (ondansetron 4 mg oral tablet, disintegrating) 1 tab(s) Oral Every 8 hours as needed for as needed for nausea/vomiting allow tablet to dissolve on tongue ?? Pickup at [facility] 3 as needed follow as prescribe Unchanged Pantoprazole (pantoprazole 40 mg oral delayed release tablet) 1 tab(s) Oral Daily 01/08/23 Unchanged Quetiapine (QUEtiapine 100 mg oral tablet) 1 tab(s) Oral Daily at Bedtime Schizoaffective disorder Major depression, recurrent 01/07/23 bedtime Unchanged Quetiapine (SEROquel 25 mg oral tablet) 2 tab(s) Oral Daily in the morning 01/08/23 Unchanged Sertraline (sertraline 50 mg oral tablet) 2 tab(s) Oral Daily 01/08/23 Pharmacy Information [facility] 3: [address] [place], [place] [id number] [phone] ?? What How Much When Comments Stop Taking Aluminum Hydroxide (aluminum hydroxide 320 mg/ 5 ml oralsuspension) 10 Milliliter Oral 3 times a day after meals and bedtime Duration: 10 Days with a full glass of water ?? Stop Taking Buprenorphine-Naloxone (buprenorphine-naloxone 2 mg-0.5 mg sublingual film) 2 Film Sublingual Daily Stop Taking Buprenorphine-Naloxone (buprenorphine-naloxone 8 mg-2 mg sublingual film) 1 Film Sublingual Daily Stop Taking efinaconazole topical (efinaconazole 10% topical solution) 1 gina Topically Daily Duration: 48 week(s) Stop Taking Ibuprofen (ibuprofen 200 mg oral capsule) 2 capsule Oral Twice a day as needed for for pain Stop Taking Insulin Lispro (insulin lispro 100 units/ mL injectable solution) 4-12 units Subcutaneous Injection 3 times a day before meals 200-250- 4 UNITS 251-300 6 UNITS 301-350 8 UNITS 351-400 10 UNITS 401-450 12 UNITS GREATER THAN 450 NOTIFY PROVIDER ?? Stop Taking Sulfamethoxazole/ Trimethoprim (trimethoprim-sulfamethoxazole DS) 160 Milligram Oral Twice a day Test Results Below is a partial list of the most recent Laboratory test results done prior to this discharge. You may have had other tests and procedures not included in this list. Please discuss all test resultswith your provider. Beta Hydroxybutyrate (01/07/2023) ???Beta Hydroxybutyrate - 0.07 mmol/L BUN (01/07/2023) ???BUN - 11 mg/dL Calcium Ionized (01/06/2023) ???Calcium, Ionized pH Corrected - 1.23 mmol/L CBC w/ Differential (01/06/2023) ???WBC - 9.5 k/mm3???RBC - 5.43 m/mm3???Hgb - 14.8 Gm/dL???Hct - 43.6 %???MCV - 80.3 femtoliters???MCH - 27.3 pg???MCHC - 33.9 g/dL???Platelet Count - 262 k/mm3???RDW-SD - 39.7 femtoliters???MPV - 9.8 femtoliters???Nucleated RBC (Automated) - 0.0 #/100 WBC'S???Abs. NRBC - 0.0 k/mm3???Abs. Neut - 7.4 k/mm3???Abs. Lymph - 1.1 k/mm3???Abs. Routt - 0.7 k/mm3???Abs. Eo - 0.0 k/mm3???Abs. Baso - 0.1 k/mm3???Neut % - 78.9 %???Lymph % - 11.6 %???Routt % - 7.7 %???Eos % - 0.3 %???Baso % - 0.7 %???Imm Gran- 0.8 %???Abs. Imm Gran - 0.1 k/mm3 Comprehensive Metabolic Panel (01/06/2023) ???Sodium - 132 mmol/L???Potassium - 4.6 mmol/L???Chloride - 97 mmol/L???Bicarbonate Level - 19 mmol/L???Anion Gap - 16???Glucose Level - 345 mg/dL???BUN - 12 mg/dL???Creatinine-Blood - 0.6 mg/dL???Estimated GFR Creatinine - 108 ML/MIN/1.73 M2???Calcium - 9.6 mg/dL???Protein, Total - 7.7 Gm/dL???Alb umin - 5.0 Gm/dL???AG Ratio - 1.9???Alkaline Phosphatase - 96 units/L???AST (SGOT) - 69 units/L???ALT (SGPT) - 53 units/L???Bilirubin, Total - 0.7 mg/dL COVID-19 (Novel Coronavirus), Rapid PCR (01/07/2023) ???COVID-19 by RT-PCR - NEGATIVE Creatinine (01/07/2023) ???Creatinine-Blood - 0.7 mg/dL???Estimated GFR Creatinine - 107 ML/MIN/1.73 M2 Electrolytes (01/07/2023) ???Sodium - 131 mmol/L???Potassium - 4.3 mmol/L???Chloride - 96 mmol/L???Bicarbonate Level - 23 mmol/L???Anion Gap - 12 Glucose Level (01/07/2023) ???Glucose Level - 269 mg/dL GLUCOSE POC (01/07/2023) ???Glucose, POC - 329 mg/dL High??Sensitivity??Troponin T (01/06/2023) ???High Sensitivity Troponin (HSTnT) - 30 ng/L HOLD BLUE TUBE (01/06/2023) ???Hold Blue Top - SPECIMEN DISCARDED AFTER 4 HOURS. Lipase (01/06/2023) ???Lipase - 62 units/L Magnesium Level (01/06/2023) ???Magnesium - 1.9 mg/dL ProBNP (01/06/2023) ???Nt-Probnp - 116 pg/mL Troponin T, High Sensitivity (01/06/2023) ???High Sensitivity Troponin (HSTnT) - 30 ng/L Urinalysis w/hold for Urine Culture (01/06/2023) ? ?Appear/Color, Urine - LIGHT YELLOW? ?Specific [place], Urine - >1.050? ?pH, Urine - 6.0? ?Albumin, Urine - 1+???Glucose, Urine - 4+???Ketones, Urine - TRACE???Bilirubin, Urine - NEGATIVE???Hemoglobin, Urine - NEGATIVE???Nitrite, Urine - NEGATIVE???Leukocyte, Urine - NEGATIVE???Urobilinogen - NORMAL? ?WBC's, Urine - <1 /HPF? ?RBC's, Urine - NONE SEEN? ?Hold Urine Culture - Testing available 48 hours from time of collection. Allergies (NKA means No Known Allergies) Other Environmental Allergy??(Wool) No Known Medication Allergies Problems Active Problems??(27) Abdominal aortic ectasia?? Calcification of abdominal aorta?? Centrilobular emphysema?? Chronic hyponatremia?? Chronic low back pain?? Chronic obstructive pulmonary disease?? Chronic pain of both knees?? Chronic pain syndrome?? Compression fracture of spine?? Diabetes mellitus, type II?? Duodenal ulcer?? Environmental allergies?? Gastritis?? GI bleed?? History of lung cancer?? Homelessness?? HTN (hypertension)?? Hyperlipidemia?? Major depression, recurrent?? Mixed hyperlipidemia?? OA (osteoarthritis)?? Opiate dependence?? Schizoaffective disorder?? Smoking?? Substance abuse in remission?? Type 2 diabetes mellitus with diabetic peripheral angiopathy without gangrene?? Wedge compression fracture of L1 vertebra?? Education Materials Below is the list of Educational Leaflet Providered with your Discharge Instructions. Oxycodone Oral Tablet?? Vomiting (Adult)?? Valuables and Belongings I fully understand and agree that [facility] accepts no responsibility for all my personal property including clothing, toilet articles, radios, jewelry, dentures, hearing aids, rings, money, or any other property that is in my possession or is brought to me after admission. I understand certain valuables may be placed in a hospital safe for a short period of time. I understand that the hospital is not liable for loss or damage due to accident, fire, or other natural occurrence while said property is in the safe. I accept full responsibility for any personal property that I keep with me, and will not hold the hospital responsible in case of loss or disappearance. I acknowledge that i have been encouraged to send valuables and belongings home. ?? No Valuables/Belongings: No valuables/belongings present Date for Pt to Sign Valuables/Belongings: 01/07/23 03:41:00 ?? Other Discharge Information ? Pulmonary Rehab Status?? Pulmonary Rehab Discharge Status?? Respiratory Rate: 20 br/min ? Common Emergency Awareness Tips IS IT A STROKE? Act FAST and Check for these signs: FACE Does the face look uneven? ARM Does one arm drift down? SPEECH Does their speech sound strange? TIME Call at any sign of stroke ?? Heart Attack Signs Chest discomfort: Most heart attacks involve discomfort in the center of the chest and lasts more than a few minutes, or goes away and comes back. It can feel like uncomfortable pressure, squeezing, fullness or pain. Discomfort in upper body: Symptoms can include pain or discomfort in one or both arms, back, neck, jaw or stomach. Shortness of breath: With or without discomfort. Other signs: Breaking out in a cold sweat, nausea, or lightheaded. Remember, MINUTES DO MATTER. If you experience any of these heart attack warning signs, call to get immediate medical attention! ?? Smoking can increase your chances of developing chronic health problems and can cause harmful effects to other family members in your house. If you smoke, you are strongly encouraged to quit. Please call [facility] Link at [phone] or [phone] or log in to [email or web address] for referrals to smoking cessation programs. ?? 588 Suicide & Crisis Lifeline is available 17/11 if you or someone you know needs to find a reason to keep living. By calling 063 you'll be connected to a skilled, trained counselor at a crisis center in your area. INPATIENT DISCHARGE INSTRUCTIONS SIGNATURE PAGE KYLE REGALADO Location:[facility] Registration Date and Time:01/06/2023 06:18 EDT Primary Care Physician: Terrell Long DO, Attending Physician: Prashant Ramos MDmad, I KYLE REGALADO, have received the above patient education materials/instructions and have verbalizedunderstanding. If ambulance or transport services are being used I further acknowledge being given a choice of service. ?? If you need to contact me, please call me at this number: . Patient/Senior Internal Auditor Name: Patient/Senior Internal Auditor Signature: Relationship to Patient: Witness Name/Signature: Date: * Merced Ramos MD: SIGN, VERIFY, SIGN, PERFORM Event Display: Patient Education Handout Authored Date: [id number] * Merced Ramos MD: PERFORM Event Display: Patient Education Leaflets Authored Date: [id number] Oxycodone Oral Tablet ?? [address] Oxycodone Oral Tablet Brands: Roxicodone Uses For pain. ?? Instructions This medicine may be taken with or without food. Swallow with a full glass (8 oz) of water unless your doctor gives you different instructions. Store at room temperature away from heat, light, and moisture. Do not keep in the bathroom. Please ask your doctor, nurse, or pharmacist how to discard unused medicines safely. To reduce constipation, eat high fiber foods, drink plenty of water and exercise. Avoid grapefruit juice while on this medicine. Drug interactions can change how medicines work or increase risk for side effects. Tell your healthcare providers about all medicines taken. Include prescription and arvb-vcw-hevhext medicines, vitamins, and herbal medicines. Speak with your doctor or pharmacist before starting or stopping any medicine. Tell your doctor if symptoms do not get better or if they get worse. ?? Cautions This medicine has an opioid. Opioids help many people but may cause addiction, especially if used for a long time. The addiction risk is higher if you have a substance use disorder (overuse of or addiction to drugs or alcohol). Ask your doctor about the benefits and risks. Ask your doctor or pharmacist if you should have naloxone on hand to treat opioid overdose. Teach your family or household members about the signs of an opioid overdose and how to treat it. If you stop this medicine suddenly after using it for a long time, you may have withdrawal. Your doctor may slowly lower your dose before stopping it. Tell your doctor right away if you have symptoms, such as unusual sweating, watering eyes, runny nose, chills, diarrhea, yawning, muscle aches, restlessness, anxiety, trouble sleeping, or thoughts of suicide. Tell your doctor and pharmacist if you ever had an allergic reaction to a medicine. Do not use the medication any more than instructed. If possible, avoid using with alcohol, marijuana, or other medicines that can cause dizziness or drowsiness. These include allergy/cold products, muscle relaxers, sleep aids, and pain relievers. Your ability to stay alert or to react quickly may be impaired by this medicine. Do not drive or operate machinery until you know how this medicine will affect you. This medicine passes into breast milk. Ask your doctor before . This medicine can hurt a new baby in the womb. If you become while on this medicine, tell your doctor immediately. Your doctor may switch you to a different medicine. This medicine should be used with caution in patients with breathing difficulties. Call your doctor right away if you notice slow or shallow breathing. Do not share this medicine with anyone who has not been prescribed this medicine. Some patients have serious side effects from this medicine. Ask your pharmacist to show you the information from the Food and Drug Administration (FDA) and discuss it with you. ?? Side Effects The following is a list of some common side effects from this medicine. Please speak with your doctor about what you should do if you experience these or other side effects. ??? decreased appetite ??? constipation ??? dizziness or drowsiness ??? lightheadedness ??? nausea and vomiting If you have any of the following side effects, you may be getting too much medicine. Please contactyour doctor to let them know about these side effects. ??? confusion ??? fainting ??? unusual or unexplained tiredness or weakness ??? difficulty or discomfort urinating Call your doctor or get medical help right away if you notice any of these more serious side effects: ??? agitated feeling or trouble sleeping ??? decreased awareness or responsiveness ??? breathing interruption during sleep ??? shallow, irregular breathing ??? changes in memory, mood, or thinking ??? hallucinations (unusual thoughts, seeing or hearing things that are not real) ??? seizures ??? severe stomach or bowel pain ??? weight loss A few people may have an allergic reaction to this medicine. Symptoms can include difficulty breathing, skin rash, itching, swelling, or severe dizziness. If you notice any of these symptoms, seek medical help quickly. ?? Extra Please speak with your doctor, nurse, or pharmacist if you have any questions about this medicine. ?? [email or web address] IMPORTANT NOTE: This document tells you briefly how to take your medicine, but it does not tell youall there is to know about it. Your doctor or pharmacist may give you other documents about your medicine. Please talk to them if you have any questions. Always follow their advice. There is a more complete description of this medicine available in Belarusian. Scan this code on your smartphone or tablet or use the web address below. You can also ask your pharmacist for a printout. If you have any questions, please ask your pharmacist. The display and use of this drug information is subject to Terms of Use. Copyright(c) 2022 [employer]. ?? [employer]. All rights reserved. This information is not intended as a substitute for professional medical care. Always follow your healthcare professional's instructions. ?? * Merced Ramos MD: PERFORM Event Display: Patient Education Leaflets Authored Date: [id number] Vomiting (Adult) ?? [id number] Vomiting (Adult) Vomiting is a common symptom that may be due to different causes. These include gastroenteritis (stomach flu), food poisoning, and gastritis. Other more serious causes of vomiting may be hard to diagnose early in the illness. That's why it's important to watch for the warning signs listed below. The main danger from repeated vomiting is dehydration. This is because of the loss of water and minerals from the body. When this occurs, your body fluids must be replaced. Home care ??? If symptoms are severe, rest at home for the next 24 hours. ??? Because your symptoms may be from an infection, wash your hands often and well. Use soap and clean, running water or alcohol-based parts assembler to keep from spreading the infection to others. ??? Wash your hands for at least 20 seconds. Scrub all surfaces of your hands, including between your fingers and under your fingernails each time you wash. Humming the Happy Birthday song twice while you wash is an easy way to make sure you've washed for 20 seconds. ??? Wash your hands after using the toilet, before and after preparing food, before eating food, after changing a diaper, cleaning a wound, caring for a sick person, and blowing your nose, coughing, or sneezing. You should also wash your hands after caring for someone who is sick, touching pet food, or treats, and touching an animal, or animal waste. ??? You may use acetaminophen??or NSAID medicines such as ibuprofen or naproxen to control fever, unless another medicinewas prescribed. Talk with your provider before using these medicines if you have chronic liver or kidney disease or ever had a stomach ulcer or digestive bleeding. Never give aspirin to anyone younger than 18 who is ill with a fever. It may cause severe liver damage. Don't use NSAID medicines if you are already taking one for another condition such as arthritis or take aspirin for heart disease or after a stroke. ??? Don't use tobacco or drink alcohol. These may make your symptoms worse. If youhave trouble stopping either substance, ask your provider for treatment resources. ??? If medicinesfor vomiting were prescribed, take as directed. Tell your provider if they don't work within the expected time period. ??? Once vomiting stops, then follow these guidelines: During the first 12 to 24 hours, follow the diet below: ??? Fruit juices. Apple, grape juice, clear fruit drinks, and electrolyte replacement drinks. ??? Beverages. Water, soft drinks without caffeine; mineral water (plain or flavored), and decaffeinated tea and coffee. ??? Soups. Clear broth and bouillon. ??? Desserts. Plain gelatin, ice pops, and fruit juice bars. As you feel better, you may add 6 to 8 ounces of yogurt per day. During the next 24 hours you may add the following to the above: ??? Hot cereal, plain toast, bread, rolls, and crackers ??? Plain noodles, rice, mashed potatoes, and chicken noodle or rice soup ??? Unsweetened canned fruit such as applesauce, bananas. Don't have pineapple or citrus. ??? Limit caffeine and chocolate. No spices or seasonings except salt. During the next 24 hours: Gradually go back to your normal diet, as you feel better and your symptoms lessen. ?? Follow-up care Follow up with your healthcare provider as advised. ?? When to seek medical advice Call your healthcare provider right away if any of these occur: ??? Constant right-sided lower belly pain or increasing general belly pain ??? Continued vomiting (unable to keep liquids down) for 24 hours ??? Vomiting blood or what looks like coffee grounds ??? Swollen belly ??? Frequent diarrhea (more than 5 times a day), or blood (red or black color) or mucus in diarrhea ??? Peeing less than usual or extreme thirst ??? Weakness, dizziness, or fainting ??? Unusually drowsy or confused ??? Fever of 100.4??F (38??C) oral or higher, or as directed by your provider ??? Yellow color of the eyes or skin ??? Other symptoms get worse or you have new symptoms ?? Last Reviewed Date: 2021 ?? [id number] [employer]. All rights reserved. This information is not intended as a substitute for professional medical care. Always follow your healthcare professional's instructions. ?? Patient Care team information Care Team Personnel Name: Fawn Nunez Position: [facility] RN Member Role: Primary Care Nurse Name: Isa Lake RN Position: S RN Member Role: Primary Care Nurse Name: Janet Moreno LPN Position: S RN Member Role: Primary Care Nurse Name: Luis Armando Alford RN Position: [facility] RN Member Role: Primary Care Nurse Name: Gaye Motley RN Position: [facility] RN Member Role: Primary Care Nurse Name: Parvin Kim Position: [facility] RN Member Role: Primary Care Nurse Name: Stormy Mccray RN Position: [facility] RN Member Role: Primary Care Nurse Name: Terrell Long DO Position: [facility] Physician - Primary Care Member Role: PCP Address: Address: [address] [place] [id number] Name: Nara Bruno RN Position: [facility] RN Member Role: Primary Care Nurse Name: Katia Nelson LPN Position: [facility] RN Member Role: Primary Care Nurse Name: Sepideh East RN Position: [facility] RN Member Role: Primary Care Nurse Name: *RAJ, ED Attending Position: [facility] ED Attendings Patient Name: *RAJ Inpt Attending Position: [facility] ED Medicine MD Name: Elena Hines Position: [facility] ED RN W/OE and Tasks Member Role: Patient Care Provider Name: Robyn Meneses Position: [facility] ED TA [facility] Member Role: Coke Worker Care Team Related Persons Name: NAZ WEINER
--- OUTSIDE RECORDS SUMMARY | 2023-07-31 11:55 | XMS_ITS | Continuity of Care Document ---
Author Organization [facility] Address [address] [place] [address]- Care Team Providers Care Filter Washer And Presser Name Role Phone Glenn AQUINO, Danielle Primary Care Physician Encounter [facility] [place] Date(s): 07/10/20 - 08/09/20 [facility] [address] [place] [address]- Encounter Diagnosis Diabetes mellitus, type II(Discharge Diagnosis) - 07/12/20 Allergies, Adverse Reactions, Alerts No Known Medication [...] EDT, Route to Pharmacy Electronically, [facility]/pharmacy #[id number], 172, cm, 07/11/20 14:49:00 EDT, Height Start Date: 07/11/20 Stop Date: 09/09/20 Status: Ordered lisinopril 20 mg oral tablet 20 mg, 1, tablet, By Mouth, Daily, # 90 tablet, Refills 1, Tot. Refills 1, Maintenance, 07/11/20 15:12:00 EDT, Route to Pharmacy Electronically, [facility]/pharmacy #[id number], Partial fill upon patient request if the prescription is for a schedule II opioid drug... Start Date: 07/11/20 Stop Date: 01/07/21 Status: Ordered metFORMIN 750 mg oral tablet, extended release 1 tablet = 750 mg, By Mouth, 2 times a day, with food, # 180 tablet, 1 Refills, Maintenance, 07/12/20 7:44:00 EDT, ER Tablet, [facility]/pharmacy #[id number], Partial fill upon patient request if the prescriptionis for a schedule II opioid drug., 172, cm, ... Start Date: 07/12/20 Stop Date: 01/08/21 Status: Ordered metoprolol 25 mg oral tablet, extended release 25 mg, 1, tablet, By Mouth, Daily, # 90 tablet, Refills 1, Tot. Refills 1, Maintenance, 07/16/20 12:36:00 EDT, Route to Pharmacy Electronically, [facility]/pharmacy #[id number], 172, cm, 07/11/20 15:26:00 EDT, Height [...] EDT, Route to Pharmacy Electronically, [facility]/pharmacy #[id number], 172, cm, 07/11/20 15:26:00 EDT, Height [...] Dates Health Status Cl inical Service Informant Diabetes mellitus, type II Discharge Diagnosis 07/12/20 Social History Social History Type Response Smoking Status 10 or more cigarette s (1/2 pack or more)/day in last 30 days; Other: about 2.5 ppd; entered on: 02/28/19 Sex
--- OUTSIDE RECORDS SUMMARY | 2023-07-31 11:55 | XMS_ITS | Continuity of Care Document ---
Author Organization [facility] Address [address] [place] [address]- Care Team Providers Care Mechanical Meter Tester Name Role Phone Imani AQUINO, Beatrice Carbajal Primary Care Physician [place] [facility] [place](s): 11/08/21 - 12/14/21 [facility] [address] [place], [place] [address] Attending Physician: Isaiah Rudolph MD Allergies, Adverse Reactions, Alerts No Known Medication Allergies Substance Reaction Severity Status Other Environmental Allergy 1 Active 1Wool Medications atorvastatin 40 mg oral tablet 1 tablet = 40 mg, By Mouth, Daily, # 90 tablet, 1 Refills, Maintenance, 11/20/20 10:30:00 EDT, Tablet, [facility] #[id number], 172, cm, 08/01/20 13:59:00 EDT, Height Start Date: 11/20/20 Stop Date: 05/19/21 Status: Ordered Combivent Respimat 20 mcg-100 mcg/inh inhalation aerosol 1 puffs, Inhalation, 4 times a day, PRN Wheezing/Shortness of Breath, # 1 each, 3 Refills, Maintenance, 06/13/20 15:39:00 EST, Aerosol, [facility]/pharmacy #[id number], Partial fill upon patient request if the prescription is for a schedule II opioid drug., 1 puff... Start Date: 06/13/20 Status: Ordered duloxetine 30 mg oral enteric coated capsule 1 capsule, By Mouth, Daily, # 90 capsule, 0 Refills, Maintenance, 02/07/21 16:12:00 EDT, [facility] #[id number], 172, cm, 08/01/20 13:59:00 EDT, Height Start Date: 02/07/21 Stop Date: 05/08/21 Status: Ordered fenofibrate 54 mg oral tablet 1 tablet = 54 mg, By Mouth, Daily, # 30 tablet, 0 Refills, Maintenance, 05/10/21 11:35:00 EST, [facility] #[id number], Partial fill upon patient request if the [...] 05/29/21 13:15:00 EST, Route to Pharmacy Electronically, [facility] #[id number], 175, cm, 02/14/21 20:23:... Start Date: 05/29/21 Stop Date: 06/28/21 Status: Ordered lisinopril 20 mg oral tablet 1, tablet, By Mouth, Daily, # 30 tablet, Refills 5, Route to Pharmacy Electronically, [facility] #[id number], 175, cm, 02/14/21 20:23:00 EDT, Height, 77.5, kg, 02/14/21 20:23:00 EDT, Dry Weight Start Date: 02/23/21 Status: Ordered MetFORMIN (Eqv-Glucophage XR) 500 mg oral tablet, extended release 2 tablet = 1,000 mg, By Mouth, 2 times a day, # 120 tablet, 3 Refills, Maintenance, 04/15/21 15:52:00 EST, [facility] #[id number], Partial fill upon patient request if the prescription is for a schedule II opioid drug., 175, cm, 02/14/21 20:23:00... Start Date: 04/15/21 Stop Date: 08/13/21 Status: Ordered metFORMIN 500 mg oral tablet, extended release 2 tablet = 1,000 mg, By Mouth, Daily, # 60 tablet, 0 Refills, Maintenance, 04/11/21 12:42:00 EST, [facility] #[id number], Partial fill upon patient request if the [...] Refills, Maintenance, 02/08/21 9:48:00 EDT, ER Tablet, [facility] #[id number], Partialfill upon patient request if the prescription is... Start Date: 02/08/21 Stop Date: 08/07/21 Status: Ordered metoprolol 25 mg oral tablet, extended release 25 mg, 1, tablet, By Mouth, Daily, # 90 tablet, Refills 0, Tot. Refills 0, Maintenance, 05/10/21 11:34:00 EST, Route to Pharmacy Electronically, [facility] #[id number], 175, cm, 02/14/21 20:23:00 EDT, Height, 77.5, kg, 02/14/21 20:23:00 EDT, Dry... Start Date: 05/10/21 Status: Ordered metoprolol 25 mg oral tablet, extended release 25 mg, 1, tablet, By Mouth, Daily, # 90 tablet, Refills 1, Tot. Refills 1, Maintenance, 10/19/20 15:29:00 EDT, Route to Pharmacy Electronically, [facility] #[id number], 172, cm, 08/01/20 13:59:00 EDT, Height Start Date: 10/19/20 Stop Date: 04/17/21 Status: Ordered omeprazole 40 mg oral enteric coated capsule 1 capsule = 40 mg, By Mouth, Daily, # 90 capsule, 0 Refills, Maintenance, 04/24/21 14:31:00 EST, ECCapsule, [facility] #[id number], Partial fill upon patient request if the prescription is for a schedule II opioid drug., 175, cm, 02/14/21 20:23:... Start Date: 04/24/21 Status: Ordered QUEtiapine 100 mg oral tablet 1, tablet, By Mouth, Daily, bloodwork and appt needed, # 30 tablet, Refills 1, Tot. Refills 1, Maintenance, 02/08/21 9:46:00 EDT, Route to Pharmacy Electronically, [facility] #[id number], 172, cm, 08/01/20 13:59:00 EDT, Height Start Date: 02/08/21 Status: Ordered QUEtiapine 100 mg oral tablet See Instructions, TAKE 1 TABLET BY MOUTH DAILY BLOODWORK AND APPOINTMENT NEEDED, # 30 tablet, Refills 0, Tot. Refills 0, 05/29/21 13:15:00 EST, Instructions Replace Required Details, Route to Pharmacy Electronically, [facility] #[id number], 175,... Start Date: 05/29/21 Status: Ordered Suboxone [...] 05/10/21 11:34:00 EST, Route to Pharmacy Electronically, [facility] #[id number], Partial fill uponpatient request if the prescription [...]
--- OUTSIDE RECORDS SUMMARY | 2023-07-31 11:55 | XMS_ITS | Continuity of Care Document ---
Author Organization [facility] Address [address] [place] [address]- Care Team Providers Care Final Assembly Worker Name Role Phone Glenn AQUINO, Danielle Primary Care Physician [place] [facility] [place](s): 03/20/20 - 04/19/20 [facility] [address] [place] [address]- Allergies, Adverse Reactions, Alerts No Known Medication Allergies Substance Reaction Severity Status Other Environmental Allergy 1 Active 1Wool Medications atorvastatin 40 mg oral tablet 1 tablet = 40 mg, By Mouth, Daily, # 90 tablet, 0 Refills, Maintenance, 04/09/20 15:40:00 EST, Tablet, [facility]/pharmacy #[id number], 172, cm, 04/09/20 13:00:00 EST, Height Start Date: 04/09/20 Stop Date: 07/08/20 Status: Ordered duloxetine 30 mg oral enteric coated capsule 1 capsule, By Mouth, Daily, # 90 capsule, 0 Refills, Maintenance, 04/09/20 15:40:00 EST, [facility]/pharmacy #[id number], 172, cm, 04/09/20 13:00:00 EST, Height Start Date: 04/09/20 Stop Date: 07/08/20 Status: Ordered gabapentin 300 mg oral capsule 1, capsule, By Mouth, 3 times a day, # 270 capsule, Refills 0, Tot. Refills 0, Maintenance, 04/09/20 15:39:00 EST, Route to Pharmacy Electronically, [facility]/pharmacy #[id number], 172, cm, 04/09/20 13:00:00 EST, Height Start Date: 04/09/20 Stop Date: 07/08/20 Status: Ordered lisinopril 5 mg oral tablet 5 mg, 1, tablet, By Mouth, Daily, # 90 tablet, Refills 0, Tot. Refills 0, Maintenance, 04/09/20 15:38:00 EST, Route to Pharmacy Electronically, [facility]/pharmacy #[id number], 172, cm, 04/09/20 13:00:00 EST, Height Start Date: 04/09/20 Stop Date: 07/08/20 Status: Ordered metoprolol 25 mg oral tablet, extended release 25 mg, 1, tablet, By Mouth, Daily, # 90 tablet, Refills 0, Tot. Refills 0, Maintenance, 04/09/20 15:37:00 EST, Route to Pharmacy Electronically, [facility]/pharmacy #[id number], 172, cm, 04/09/20 13:00:00 [...] 04/09/20 15:39:00 EST, [id number], cm, 04/09/20 13:00:00 EST, Height Start Date: 04/09/20 Stop Date: 07/08/20 Status: Ordered Tylenol Extra Strength 500 mg oral tablet 2 tablet = 1,000 mg, By Mouth, 2 times a day, PRN Pain, for 90 days, # 120 tablet, 0 Refills, Acute07/08/20 15:41:00 EDT, 04/09/20 15:41:00 EST, [facility]/pharmacy #[id number], Partial fill upon patient [...] disorder(Confirmed) Active Smoking(Confirmed) Active Duodenal ulcer(Confirmed) Active Social History Social History Type Response Smoking Status 10 or more cigarette s (1/2 pack or more)/day in last 30 days; Other: about 2.5 ppd; entered on: 02/28/19 Sex
--- OUTSIDE RECORDS SUMMARY | 2023-07-31 11:55 | XMS_ITS | Continuity of Care Document ---
Author Organization [facility] Address [address] [place] [address]- Care Team Providers Care Principal Administrative Clerk Name Role Phone Lucho Cardona DO Primary Care Physician [phone] [place] [facility] [place] - 09/01/19 [facility] [address] [place] [address]- [facility] Attending Physician: Lucho Cardona DO Allergies, Adverse [...] 5 Refills, Maintenance, 05/09/19 10:34:00 EST, Tablet, [facility]/pharmacy #[id number], 172, cm, 05/09/19 10:09:00 EST, Height Start Date: 05/09/19 Status: Ordered duloxetine 30 mg oral enteric coated capsule 1 capsule, By Mouth, Daily, # 30 capsule, 3 Refills, Maintenance, 06/20/19 7:54:00 EST, [id number], 172, cm, 06/02/19 8:30:00 EST, Height Start Date: 06/20/19 Status: Ordered gabapentin 300 mg oral capsule 1, capsule, By Mouth, 3 times a day, # 90 capsule, Refills 2, Tot. Refills 0, Maintenance, 207:54:00 EST, Route to Pharmacy Electronically, [facility], 172, cm, 06/02/19 8:30:00 EST, Height Start Date: 06/20/19 Status: Ordered lisinopril 5 mg oral tablet 5 mg, 1, tablet, By Mouth, Daily, # 30 tablet, Refills 5, Tot. Refills 5, Maintenance, 05/09/19 10:34:00 EST, Route to Pharmacy Electronically, [facility]/pharmacy #[id number], 172, cm, 05/09/19 10:09:00 EST, Height Start Date: 05/09/19 Status: Ordered meloxicam 15 mg oral tablet 1 tablet = 15 mg, By Mouth, Daily, # 30 tablet, 0 Refills, Maintenance, 08/26/19 10:39:00 EDT, Tablet, [facility]/pharmacy #[id number], 172, cm, 06/30/19 7:54:00 EST, Height Start Date: 08/26/19 Status: Ordered metoprolol 25 mg oral tablet, extended release 50 mg, 2, tablet, By Mouth, Daily, # 30 tablet, Refills 5, Tot. Refills 5, Maintenance, 08/26/19 10:37:00 EDT, [id number], cm, 06/30/19 7:54:00 EST, Height Start Date: 08/26/19 Status: Ordered pantoprazole 40 mg oral delayed release tablet 1 tablet = 40 mg, By Mouth, Daily, 0 Refills, Maintenance, 07/22/19 13:19:00 EDT Start Date: 07/22/19 Stop Date: 08/21/19 Status: Ordered QUEtiapine 100 mg oral tablet 1, tablet, By Mouth, Daily, # 30 tablet, Refills 1, Tot. Refills 0, Maintenance, 06/20/19 7:54:00 EST, Route to Pharmacy Electronically, [facility] [id number], 172, cm, 06/02/19 8:30:00 EST, Height Start Date: 06/20/19 Status: Ordered traMADol 50 mg oral tablet 1 tablet = 50 mg, By Mouth, Daily, PRN Pain , Severe, for 7 days, masspat checked, # 7 tablet, 0 Refills, Acute 09/02/19 10:40:00 EDT, 08/26/19 10:40:00 EDT, [facility]/pharmacy #[id number], 172, cm, 06/30/19 7:54:00 EST, Height Start Date: 08/26/19 Stop Date: 09/02/19 Status: Ordered Problem List Condition Effective Dates Status Health Status Inform ant HTN (hypertension)(Confirmed) Active OA (osteoarthritis)(Confirmed) Active Schizoaffective disorder(Confirmed) Active Social History Social History Type Response Smoking Status 10 or more cigarette s (1/2 pack or more)/day in last 30 days; Other: about 2.5 ppd; entered on: 02/28/19 Sex
--- OUTSIDE RECORDS SUMMARY | 2023-07-31 11:55 | XMS_ITS | Continuity of Care Document ---
Author Organization [facility] Address [address] [place] [address]- Care Team Providers Care Biofuels Engineering Manager Name Role Phone Terrell Long DO Primary Care Physician [phone] Encounter [facility] [place] Date(s): 11/04/22 - 12/04/22 [facility] [address] [place], [place] [address] Allergies, Adverse Reactions, Alerts [...] Primary Care Nurse Name: Parvin Kim Position: S RN Member Role: Primary Care Nurse Name: Stormy Mccray RN Position: S RN Member Role: Primary Care Nurse Name: Terrell Long DO Position: [facility] Physician - Primary Care Member Role: PCP Address: Address: [address] [place] [address] [address] Name: Nara Bruno RN Position: S RN Member Role: Primary Care Nurse Name: Sepideh East RN Position: S RN Member Role: Primary Care Nurse Care Team Related Persons Name: NAZ WEINER
--- OUTSIDE RECORDS SUMMARY | 2023-07-31 11:55 | XMS_ITS | Continuity of Care Document ---
Author Organization [facility] Address [address] [place] [address]- Care Team Providers Care Warehouse Receiving Clerk Name Role Phone Glenn AQUINO, Danielle Primary Care Physician [place] [facility] [place] 06/13/20 - 06/20/20 [facility] [address] [place] [address]- Encounter Diagnosis Schizoaffective disorder(Discharge Diagnosis) - 06/13/20 Major depression, recurrent(Discharge Diagnosis) - 06/14/20 Opiate dependence-suboxone treatment(Discharge Diagnosis) - 06/13/20 Hyperlipidemia(Discharge Diagnosis) - 06/13/20 History of lung cancer(Discharge Diagnosis) - 06/13/20 Smoking(Discharge Diagnosis) - 06/13/20 Chronic pain syndrome(Discharge Diagnosis) - 06/13/20 Chronic low back pain(Discharge Diagnosis) - 06/13/20 Diabetes mellitus, type II(Discharge Diagnosis) - 06/13/20 HTN (hypertension)(Discharge Diagnosis) - 06/13/20 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 Refills 3, Maintenance, 06/13/20 15:27:00 EST, Route to Pharmacy Electronically, [id number], Partial fill upon patient request if the prescription is for a schedule II opioid drug... Start Date: 06/13/20 Stop Date: 06/08/21 Status: Ordered metFORMIN 750 mg oral tablet, extended release 1 tablet = 750 mg, By Mouth, Daily, with evening meal, # 90 tablet, 1 Refills, Maintenance, 05/18/20 11:14:00 EST, ER Tablet, [id number], Partial fill upon patient request if the prescriptionis for a schedule II opioid drug., 172, cm, ... Start Date: 05/18/20 Stop Date: 11/14/20 Status: Ordered metoprolol 25 mg oral tablet, extended release 25 mg, 1, tablet, By Mouth, Daily, # 90 tablet, Refills 0, Tot. Refills 0, Maintenance, 04/09/20 15:37:00 EST, Route to Pharmacy Electronically, [facility]/pharmacy #[id number], 172, cm, 04/09/20 13:00:00 [...] 04/09/20 15:39:00 EST, Route to Pharmacy Electronically, [facility]/pharmacy #[id number], 172, cm, 04/09/20 13:00:00 [...] Refills, Acute07/08/20 15:41:00 EDT, 04/09/20 15:41:00 EST, [facility]/pharmacy #[id number], Partial fill upon patient requestif the prescription is for a schedule II opioid jacob... Start Date: 04/09/20 Stop Date: 07/08/20 Status: Ordered Wheelchair See Instructions, # 1 each, Maintenance, Electric wheelchair DX: M17.0 (not knee replacement candidate), 05/17/20 14:07:00 EST, Supply Start Date: 05/17/20 Status: Ordered Problem List Condition Effective Dates Status Health Status Inform ant Chronic low back pain(Confirmed) Active Chronic pain [...] Effective Dates Health Status Clinical Service Informant Opiate dependence-suboxone treatment Discharge Diagnosis 06/13/20 Non-Specified Chronic pain syndrome Discharge Diagnosis 06/13/20 HTN (hypertension) Discharge Diagnosis 06/13/20 Diabetes mellitus, type II Discharge Diagnosis 06/13/20 History of lung cancer Discharge Diagnosis 06/13/20 Smoking Discharge Diagnosis 06/13/20 Hyperlipidemia Discharge Diagnosis 06/13/20 Chronic low back pain Discharge Diagnosis 06/13/20 Schizoaffective disorder Discharge Diagnosis 06/13/20 Major depression, recurrent Discharge Diagnosis 06/14/20 Substance abuse in remission Discharge Diagnosis 06/15/20 Vital Signs Most recent to oldest [Reference Range]: 1 2 Height 172 cm (06/13/20 3:37 PM) 172 cm (06/13/20 3:00 PM) Oxygen Saturation [94-100 %] 97 % (06/13/20 3:00 PM) Pulse Rate [55-90 bpm] 92 bpm *H* (06/13/20 3:00 PM) Blood Pressure [90-138/55-84 mm Hg] 148/ 90mm Hg *H* (06/13/20 3:37 PM) 154/98mm Hg *H* (06/13/20 3:00 PM) Respiratory Rate [16-30 br/min] 18 br/mi n (06/13/20 3:00 PM) Mode of Delivery (Oxygen) Room air (06/13/20 3:00 PM) Blood pressure sites Arm, left (06/13/20 3:00 PM) Social History Social History Type Response Smoking Status 10 or more cigarette s (1/2 pack or more)/day in last 30 days; Other: about 2.5 ppd; entered on: 02/28/19 Sex
--- OUTSIDE RECORDS SUMMARY | 2023-07-31 11:55 | XMS_ITS | Continuity of Care Document ---
Author Organization [facility] Address [address] [place] [address]- Care Team Providers Care Dental Claims Processor Name Role Phone Purnima Cardona DOsir Primary Care Physician [phone] [place] [facility] [place]/10/19 - 12/10/19 [facility] [address] [place] [address]- [facility] Allergies, Adverse Reactions, Alerts No Known Medication [...] 1 Refills, Maintenance, 11/10/19 15:07:00 EDT, Tablet, [facility]/pharmacy #[id number], 172, cm, 06/30/19 7:54:00 EST, Height Start Date: 11/10/19 Status: Ordered duloxetine 30 mg oral enteric coated capsule 1 capsule, By Mouth, Daily, # 30 capsule, 3 Refills, Maintenance, 10/17/19 11:08:00 EDT, [id number], 172, cm, 06/30/19 7:54:00 EST, Height Start Date: 10/17/19 Status: Ordered gabapentin 300 mg oral capsule 1, capsule, By Mouth, 3 times a day, # 90 capsule, Refills 2, Tot. Refills 0, Maintenance, 10/16/2010:08:00 EDT, Route to Pharmacy Electronically, [id number], 172, cm, 06/30/19 7:54:00 EST, Height Start Date: 10/17/19 Status: Ordered lisinopril 5 mg oral tablet 5 mg, 1, tablet, By Mouth, Daily, # 90 tablet, Refills 0, Tot. Refills 0, Maintenance, 11/10/19 15:07:00 EDT, Route to Pharmacy Electronically, [facility]/pharmacy #[id number], 172, cm, 06/30/19 7:54:00 EST, Height Start Date: 11/10/19 Status: Ordered meloxicam 15 mg oral tablet See Instructions, TAKE 1 TABLET BY MOUTH EVERY DAY, # 30 tablet, 3 Refills, Maintenance, [facility], 172, cm, 06/30/19 7:54:00 EST, Height Start Date: 09/22/19 Status: Ordered meloxicam 15 mg oral tablet See Instructions, TAKE 1 TABLET BY MOUTH EVERY DAY, # 30 tablet, 3 Refills, Maintenance, [facility], 172, cm, 06/30/19 7:54:00 EST, Height Start Date: 09/22/19 Status: Ordered metoprolol 25 mg oral tablet, extended release 50 mg, 2, tablet, By Mouth, Daily, # 180 tablet, Refills 0, Tot. Refills 0, Maintenance, 11/10/19 15:07:00 EDT, Route to Pharmacy Electronically, [facility]/pharmacy #[id number], 172, cm, 06/30/19 7:54:00 EST, Height Start Date: 11/10/19 Status: Ordered pantoprazole 40 mg oral delayed release tablet 1 tablet = 40 mg, By Mouth, Daily, 0 Refills, Maintenance, 07/22/19 13:19:00 EDT Start Date: 07/22/19 Stop Date: 08/21/19 Status: Ordered QUEtiapine 100 mg oral tablet 1, tablet, By Mouth, Daily, # 90 tablet, Refills 0, Tot. Refills 0, Maintenance, 11/10/19 15:07:00 EDT, [facility]ically[id number] 172, cm, 06/30/19 7:54:00 EST, Height [...]
--- OUTSIDE RECORDS SUMMARY | 2023-07-31 11:55 | XMS_ITS | Continuity of Care Document ---
Author Organization [facility] Address [address] [place] [address]- Care Team Providers Care Patent Prosecution Paralegal Name Role Phone Beatrice Diallo NP Primary Care Physician Encounter [facility] [place] Date(s): 04/01/21 - 06/08/21 [facility] [address] [place], [place] [address] Attending Physician: Beatrice Diallo NP Allergies, Adverse Reactions, Alerts No Known Medication Allergies Substance Reaction Severity Status Other Environmental Allergy 1 Active 1Wool Medications atorvastatin 40 mg oral tablet 1 tablet = 40 mg, By Mouth, Daily, # 90 tablet, 1 Refills, Maintenance, 11/20/20 10:30:00 EDT, Tablet, [facility]: [facility] #[id number], 172, cm, 08/01/20 13:59:00 EDT, Height Start Date: 11/20/20 Stop Date: 05/19/21 Status: Ordered Combivent Respimat 20 mcg-100 mcg/inh inhalation aerosol 1 puffs, Inhalation, 4 times a day, PRN Wheezing/Shortness of Breath, # 1 each, 3 Refills, Maintenance, 06/13/20 15:39:00 EST, Aerosol, [facility]/pharmacy #[id number], Partial fill upon patient request if the prescription is for a schedule II opioid drug., 1 puff... Start Date: 06/13/20 Status: Ordered duloxetine 30 mg oral enteric coated capsule 1 capsule, By Mouth, Daily, # 90 capsule, 0 Refills, Maintenance, 02/07/21 16:12:00 EDT, [facility] #[id number], 172, cm, 08/01/20 13:59:00 EDT, Height Start Date: 02/07/21 Stop Date: 05/08/21 Status: Ordered fenofibrate 54 mg oral tablet 1 tablet = 54 mg, By Mouth, Daily, # 30 tablet, 0 Refills, Maintenance, 05/10/21 11:35:00 EST, [facility] #[id number], Partial fill upon patient request if the [...] 05/29/21 13:15:00 EST, Route to Pharmacy Electronically, [facility] #[id number], 175, cm, 02/14/21 20:23:... Start Date: 05/29/21 Stop Date: 06/28/21 Status: Ordered lisinopril 20 mg oral tablet 1, tablet, By Mouth, Daily, # 30 tablet, Refills 5, Route to Pharmacy Electronically, [facility] #[id number], 175, cm, 02/14/21 20:23:00 EDT, Height, 77.5, kg, 02/14/21 20:23:00 EDT, Dry Weight Start Date: 02/23/21 Status: Ordered MetFORMIN (Eqv-Glucophage XR) 500 mg oral tablet, extended release 2 tablet = 1,000 mg, By Mouth, 2 times a day, # 120 tablet, 3 Refills, Maintenance, 04/15/21 15:52:00 EST, [facility] #[id number], Partial fill upon patient request if the prescription is for a schedule II opioid drug., 175, cm, 02/14/21 20:23:00... Start Date: 04/15/21 Stop Date: 08/13/21 Status: Ordered metFORMIN 500 mg oral tablet, extended release 2 tablet = 1,000 mg, By Mouth, Daily, # 60 tablet, 0 Refills, Maintenance, 04/11/21 12:42:00 EST, [facility] #[id number], Partial fill upon patient request if the [...] Refills, Maintenance, 02/08/21 9:48:00 EDT, ER Tablet, [place]: [facility] #[id number], Partialfill upon patient request if the prescription is... Start Date: 02/08/21 Stop Date: 08/07/21 Status: Ordered metoprolol 25 mg oral tablet, extended release 25 mg, 1, tablet, By Mouth, Daily, # 90 tablet, Refills 0, Tot. Refills 0, Maintenance, 05/10/21 11:34:00 EST, Route to Pharmacy Electronically, [facility] #[id number], 175, cm, 02/14/21 20:23:00 EDT, Height, 77.5, kg, 02/14/21 20:23:00 EDT, Dry... Start Date: 05/10/21 Status: Ordered metoprolol 25 mg oral tablet, extended release 25 mg, 1, tablet, By Mouth, Daily, # 90 tablet, Refills 1, Tot. Refills 1, Maintenance, 10/19/20 15:29:00 EDT, Route to Pharmacy Electronically, [facility] #[id number], 172, cm, 08/01/20 13:59:00 EDT, Height Start Date: 10/19/20 Stop Date: 04/17/21 Status: Ordered omeprazole 40 mg oral enteric coated capsule 1 capsule = 40 mg, By Mouth, Daily, # 90 capsule, 0 Refills, Maintenance, 04/24/21 14:31:00 EST, ECCapsule, [facility] #[id number], Partial fill upon patient request if the prescription is for a schedule II opioid drug., 175, cm, 02/14/21 20:23:... Start Date: 04/24/21 Status: Ordered QUEtiapine 100 mg oral tablet 1, tablet, By Mouth, Daily, bloodwork and appt needed, # 30 tablet, Refills 1, Tot. Refills 1, Maintenance, 02/08/21 9:46:00 EDT, Route to Pharmacy Electronically, [facility] #[id number], 172, cm, 08/01/20 13:59:00 EDT, Height Start Date: 02/08/21 Status: Ordered QUEtiapine 100 mg oral tablet See Instructions, TAKE 1 TABLET BY MOUTH DAILY BLOODWORK AND APPOINTMENT NEEDED, # 30 tablet, Refills 0, Tot. Refills 0, 05/29/21 13:15:00 EST, Instructions Replace Required Details, Route to Pharmacy Electronically, [facility] #[id number], 175,... Start Date: 05/29/21 Status: Ordered Suboxone [...] 05/10/21 11:34:00 EST, Route to Pharmacy Electronically, [facility] #[id number], Partial fill uponpatient request if the prescription [...]
--- OUTSIDE RECORDS SUMMARY | 2023-07-31 11:55 | XMS_ITS | Continuity of Care Document ---
Author Organization [facility] Address [address] [place] [address]- Care Team Providers Care Chart Changer Name Role Phone Lucho Cardona DO Primary Care Physician Encounter [facility] Date(s): 08/26/19 - 09/02/19 [facility] [address] [place] [address]- [facility] Attending Physician: Lucho Cardona DO Allergies, Adverse [...] 5 Refills, Maintenance, 05/09/19 10:34:00 EST, Tablet, [facility]/pharmacy #[id number], 172, cm, 05/09/19 10:09:00 EST, Height Start Date: 05/09/19 Status: Ordered duloxetine 30 mg oral enteric coated capsule 1 capsule, By Mouth, Daily, # 30 capsule, 3 Refills, Maintenance, 06/20/19 7:54:00 EST, [id number], 172, cm, 06/02/19 8:30:00 EST, Height Start Date: 06/20/19 Status: Ordered gabapentin 300 mg oral capsule 1, capsule, By Mouth, 3 times a day, # 90 capsule, Refills 2, Tot. Refills 0, Maintenance, 207:54:00 EST, Route to Pharmacy Electronically, [facility] 00512, 172, cm, 06/02/19 8:30:00 EST, Height Start Date: 06/20/19 Status: Ordered lisinopril 5 mg oral tablet 5 mg, 1, tablet, By Mouth, Daily, # 30 tablet, Refills 5, Tot. Refills 5, Maintenance, 05/09/19 10:34:00 EST, [id number], cm, 05/09/19 10:09:00 EST, Height Start Date: 05/09/19 Status: Ordered meloxicam 15 mg oral tablet 1 tablet = 15 mg, By Mouth, Daily, # 30 tablet, 0 Refills, Maintenance, 08/26/19 10:39:00 EDT, Tablet, [facility]/pharmacy #[id number], 172, cm, 06/30/19 7:54:00 EST, Height Start Date: 08/26/19 Status: Ordered metoprolol 25 mg oral tablet, extended release 50 mg, 2, tablet, By Mouth, Daily, # 30 tablet, Refills 5, Tot. Refills 5, Maintenance, 08/26/19 10:37:00 EDT, [id number], cm, 06/30/19 7:54:00 EST, Height [...] 06/20/19 7:54:00 EST, Route to Pharmacy Electronically, [facility] [id number], 172, cm, 06/02/19 8:30:00 EST, Height Start Date: 06/20/19 Status: Ordered Problem List Condition Effective Dates Status Health Status Inform ant HTN (hypertension)(Confirmed) Active OA (osteoarthritis)(Confirmed) Active Schizoaffective disorder(Confirmed) Active Social History Social History Type Response Smoking Status 10 or more cigarette s (1/2 pack or more)/day in last 30 days; Other: about 2.5 ppd; entered on: 02/28/19 Sex
--- OUTSIDE RECORDS SUMMARY | 2023-07-31 11:55 | XMS_ITS | Continuity of Care Document ---
Author Organization [facility] Address [address] [place] [address]- Care Team Providers Care Consumer Loan Officer Name Role Phone Lucho Cardona DO Primary Care Physician [phone] Encounter [facility] Date(s): 05/12/19 - 05/19/[address] [address]- [facility] Attending Physician: Lucho Cardona DO [...] 03/25/19 16:00:32 EST, Route to Pharmacy Electronically, [id number], [facility] #[id number] Start Date: 03/25/19 Status: Ordered ibuprofen 600 mg oral tablet 600 mg, 1, tablet, By Mouth, 3 times a day, PRN, for 30 days, # 90 tablet, Refills 1, Tot. Refills 1, Acute 05/24/19 15:59:57 EST, Pain , Moderate, 03/25/19 15:59:57 EST, Route to Pharmacy Electronically, [id number], [facility]/phar... Start Date: 03/25/19 Stop Date: 05/24/19 Status: Ordered Keflex monohydrate 500 mg oral capsule 1 capsule = 500 mg, By Mouth, Every 8 hours, for 10 days, # 30 capsule, 0 Refills, Acute 05/22/19 10:44:00 EST, 05/12/19 10:44:00 EST, Capsule, [facility]/pharmacy #[id number], 172, cm, 05/09/19 10:09:00 EST, Height Start Date: 05/12/19 Stop Date: 05/22/19 Status: Ordered lisinopril 5 mg oral tablet 5 mg, 1, tablet, By Mouth, Daily, # 30 tablet, Refills 5, Tot. Refills 5, Maintenance, 05/09/19 10:34:00 EST, [id number], cm, 05/09/19 10:09:00 EST, Height Start Date: 05/09/19 Status: Ordered metoprolol 25 mg oral tablet, extended release 25 mg, 1, tablet, By Mouth, Daily, # 30 tablet, Refills 5, Tot. Refills 5, Maintenance, 05/09/19 10:34:00 EST, Route to Pharmacy Electronically, [facility]/pharmacy #[id number], 172, cm, 05/09/19 10:09:00 EST, Height Start Date: 05/09/19 Status: Ordered QUEtiapine 100 mg oral tablet 100 mg, 1, tablet, By Mouth, Daily, # 30 tablet, Refills 1, Tot. Refills 1, Maintenance, 04/11/19 13:46:18 EST, Route to Pharmacy Electronically, [facility]/pharmacy #[id number], 172, cm, 04/11/19 13:08:04 EST, Height [...]
--- OUTSIDE RECORDS SUMMARY | 2023-07-31 11:55 | XMS_ITS | Continuity of Care Document ---
Author Organization [facility] Address [address] [place] [address]- Care Team Providers Care Estimating Manager Name Role Phone Imani AQUINO, Beatrice Carbajal Primary Care Physician [phone] Encounter [facility] Date(s): 10/16/21 - 11/15/21 [facility] [address] [place], [place] [address] Allergies, Adverse Reactions, Alerts No Known Medication Allergies Substance Reaction Severity Status Other Environmental Allergy 1 Active 1Wool Medications atorvastatin 40 mg oral tablet 1 tablet = 40 mg, By Mouth, Daily, # 90 tablet, 1 Refills, Maintenance, 11/20/20 10:30:00 EDT, Tablet, [facility] #[id number], 172, cm, 08/01/20 13:59:00 EDT, Height Start Date: 11/20/20 Stop Date: 05/19/21 Status: Ordered Combivent Respimat 20 mcg-100 mcg/inh inhalation aerosol 1 puffs, Inhalation, 4 times a day, PRN Wheezing/Shortness of Breath, # 1 each, 3 Refills, Maintenance, 06/13/20 15:39:00 EST, Aerosol, [facility]/pharmacy #[id number], Partial fill upon patient request if the prescription is for a schedule II opioid drug., 1 puff... Start Date: 06/13/20 Status: Ordered duloxetine 30 mg oral enteric coated capsule 1 capsule, By Mouth, Daily, # 90 capsule, 0 Refills, Maintenance, 02/07/21 16:12:00 EDT, [facility] #[id number], 172, cm, 08/01/20 13:59:00 EDT, Height Start Date: 02/07/21 Stop Date: 05/08/21 Status: Ordered fenofibrate 54 mg oral tablet 1 tablet = 54 mg, By Mouth, Daily, # 30 tablet, 0 Refills, Maintenance, 05/10/21 11:35:00 EST, [facility] #[id number], Partial fill upon patient request if the [...] 05/29/21 13:15:00 EST, Route to Pharmacy Electronically, [facility] #[id number], 175, cm, 02/14/21 20:23:... Start Date: 05/29/21 Stop Date: 06/28/21 Status: Ordered lisinopril 20 mg oral tablet 1, tablet, By Mouth, Daily, # 30 tablet, Refills 5, Route to Pharmacy Electronically, [facility] #[id number], 175, cm, 02/14/21 20:23:00 EDT, Height, 77.5, kg, 02/14/21 20:23:00 EDT, Dry Weight Start Date: 02/23/21 Status: Ordered MetFORMIN (Eqv-Glucophage XR) 500 mg oral tablet, extended release 2 tablet = 1,000 mg, By Mouth, 2 times a day, # 120 tablet, 3 Refills, Maintenance, 04/15/21 15:52:00 EST, [facility] #[id number], Partial fill upon patient request if the prescription is for a schedule II opioid drug., 175, cm, 02/14/21 20:23:00... Start Date: 04/15/21 Stop Date: 08/13/21 Status: Ordered metFORMIN 500 mg oral tablet, extended release 2 tablet = 1,000 mg, By Mouth, Daily, # 60 tablet, 0 Refills, Maintenance, 04/11/21 12:42:00 EST, [facility] #[id number], Partial fill upon patient request if the [...] Refills, Maintenance, 02/08/21 9:48:00 EDT, ER Tablet, [facility] #[id number], Partialfill upon patient request if the prescription is... Start Date: 02/08/21 Stop Date: 08/07/21 Status: Ordered metoprolol 25 mg oral tablet, extended release 25 mg, 1, tablet, By Mouth, Daily, # 90 tablet, Refills 0, Tot. Refills 0, Maintenance, 05/10/21 11:34:00 EST, Route to Pharmacy Electronically, [facility] #[id number], 175, cm, 02/14/21 20:23:00 EDT, Height, 77.5, kg, 02/14/21 20:23:00 EDT, Dry... Start Date: 05/10/21 Status: Ordered metoprolol 25 mg oral tablet, extended release 25 mg, 1, tablet, By Mouth, Daily, # 90 tablet, Refills 1, Tot. Refills 1, Maintenance, 10/19/20 15:29:00 EDT, Route to Pharmacy Electronically, [facility] #[id number], 172, cm, 08/01/20 13:59:00 EDT, Height Start Date: 10/19/20 Stop Date: 04/17/21 Status: Ordered omeprazole 40 mg oral enteric coated capsule 1 capsule = 40 mg, By Mouth, Daily, # 90 capsule, 0 Refills, Maintenance, 04/24/21 14:31:00 EST, ECCapsule, [facility] #[id number], Partial fill upon patient request if the prescription is for a schedule II opioid drug., 175, cm, 02/14/21 20:23:... Start Date: 04/24/21 Status: Ordered QUEtiapine 100 mg oral tablet 1, tablet, By Mouth, Daily, bloodwork and appt needed, # 30 tablet, Refills 1, Tot. Refills 1, Maintenance, 02/08/21 9:46:00 EDT, Route to Pharmacy Electronically, [facility] #[id number], 172, cm, 08/01/20 13:59:00 EDT, Height Start Date: 02/08/21 Status: Ordered QUEtiapine 100 mg oral tablet See Instructions, TAKE 1 TABLET BY MOUTH DAILY BLOODWORK AND APPOINTMENT NEEDED, # 30 tablet, Refills 0, Tot. Refills 0, 05/29/21 13:15:00 EST, Instructions Replace Required Details, Route to Pharmacy Electronically, [facility] #[id number], 175,... Start Date: 05/29/21 Status: Ordered Suboxone [...] 05/10/21 11:34:00 EST, Route to Pharmacy Electronically, [facility] #[id number], Partial fill uponpatient request if the prescription [...]
--- OUTSIDE RECORDS SUMMARY | 2023-07-31 11:55 | XMS_ITS | Continuity of Care Document ---
Author Organization [facility] Address [address] [place] [address]- Care Team Providers Care Chain Splitter Name Role Phone Imani AQUINO, Beatrice Carbajal Primary Care Physician Encounter [facility] Date(s): 04/23/21 - 05/23/21 [facility] [address] [place], [place] [address] Allergies, Adverse Reactions, Alerts No Known Medication Allergies Substance Reaction Severity Status Other Environmental Allergy 1 Active 1Wool Medications atorvastatin 40 mg oral tablet 1 tablet = 40 mg, By Mouth, Daily, # 90 tablet, 1 Refills, Maintenance, 11/20/20 10:30:00 EDT, Tablet, [facility] #[id number], 172, cm, 08/01/20 13:59:00 EDT, Height Start Date: 11/20/20 Stop Date: 05/19/21 Status: Ordered Combivent Respimat 20 mcg-100 mcg/inh inhalation aerosol 1 puffs, Inhalation, 4 times a day, PRN Wheezing/Shortness of Breath, # 1 each, 3 Refills, Maintenance, 06/13/20 15:39:00 EST, Aerosol, [facility]/pharmacy #[id number], Partial fill upon patient request if the prescription is for a schedule II opioid drug., 1 puff... Start Date: 06/13/20 Status: Ordered duloxetine 30 mg oral enteric coated capsule 1 capsule, By Mouth, Daily, # 90 capsule, 0 Refills, Maintenance, 02/07/21 16:12:00 EDT, [facility] #[id number], 172, cm, 08/01/20 13:59:00 EDT, Height Start Date: 02/07/21 Stop Date: 05/08/21 Status: Ordered fenofibrate 54 mg oral tablet 1 tablet = 54 mg, By Mouth, Daily, # 30 tablet, 0 Refills, Maintenance, 05/10/21 11:35:00 EST, [facility] #[id number], Partial fill upon patient request if the [...] 04/11/21 12:42:00 EST, Route to Pharmacy Electronically, [facility] #[id number], 175, cm, 02/14/21 20:23:... Start Date: 04/11/21 Stop Date: 05/11/21 Status: Ordered lisinopril 20 mg oral tablet 1, tablet, By Mouth, Daily, # 30 tablet, Refills 5, Route to Pharmacy Electronically, [facility] #[id number], 175, cm, 02/14/21 20:23:00 EDT, Height, 77.5, kg, 02/14/21 20:23:00 EDT, Dry Weight Start Date: 02/23/21 Status: Ordered MetFORMIN (Eqv-Glucophage XR) 500 mg oral tablet, extended release 2 tablet = 1,000 mg, By Mouth, 2 times a day, # 120 tablet, 3 Refills, Maintenance, 04/15/21 15:52:00 EST, [facility] #[id number], Partial fill upon patient request if the prescription is for a schedule II opioid drug., 175, cm, 02/14/21 20:23:00... Start Date: 04/15/21 Stop Date: 08/13/21 Status: Ordered metFORMIN 500 mg oral tablet, extended release 2 tablet = 1,000 mg, By Mouth, Daily, # 60 tablet, 0 Refills, Maintenance, 04/11/21 12:42:00 EST, [facility] #[id number], Partial fill upon patient request if the [...] Refills, Maintenance, 02/08/21 9:48:00 EDT, ER Tablet, [facility] #[id number], Partialfill upon patient request if the prescription is... Start Date: 02/08/21 Stop Date: 08/07/21 Status: Ordered metoprolol 25 mg oral tablet, extended release 25 mg, 1, tablet, By Mouth, Daily, # 90 tablet, Refills 0, Tot. Refills 0, Maintenance, 05/10/21 11:34:00 EST, Route to Pharmacy Electronically, [facility] #[id number], 175, cm, 02/14/21 20:23:00 EDT, Height, 77.5, kg, 02/14/21 20:23:00 EDT, Dry... Start Date: 05/10/21 Status: Ordered metoprolol 25 mg oral tablet, extended release 25 mg, 1, tablet, By Mouth, Daily, # 90 tablet, Refills 1, Tot. Refills 1, Maintenance, 10/19/20 15:29:00 EDT, Route to Pharmacy Electronically, [facility] #[id number], 172, cm, 08/01/20 13:59:00 EDT, Height Start Date: 10/19/20 Stop Date: 04/17/21 Status: Ordered omeprazole 40 mg oral enteric coated capsule 1 capsule = 40 mg, By Mouth, Daily, # 90 capsule, 0 Refills, Maintenance, 04/24/21 14:31:00 EST, ECCapsule, [facility] #[id number], Partial fill upon patient request if the prescription is for a schedule II opioid drug., 175, cm, 02/14/21 20:23:... Start Date: 04/24/21 Status: Ordered QUEtiapine 100 mg oral tablet 1, tablet, By Mouth, Daily, bloodwork and appt needed, # 30 tablet, Refills 1, Tot. Refills 1, Maintenance, 02/08/21 9:46:00 EDT, Route to Pharmacy Electronically, [facility] #[id number], 172, cm, 08/01/20 13:59:00 EDT, Height Start Date: 02/08/21 Status: Ordered QUEtiapine 100 mg oral tablet See Instructions, TAKE 1 TABLET BY MOUTH DAILY BLOODWORK AND APPOINTMENT NEEDED, # 30 tablet, Refills 0, Tot. Refills 0, 04/11/21 12:42:00 EST, Instructions Replace Required Details, Route to Pharmacy Electronically, [facility] #[id number], 175,... Start Date: 04/11/21 Status: Ordered Suboxone [...] 05/10/21 11:34:00 EST, Route to Pharmacy Electronically, [facility] #[id number], Partial fill uponpatient request if the prescription [...]
--- OUTSIDE RECORDS SUMMARY | 2023-07-31 11:55 | XMS_ITS | Continuity of Care Document ---
Author Organization [facility] ter Address [address] [place] [id number]- Care Team Providers Care File Clerk Name Role Phone Terrell Long DO Primary Care Physician [phone] Encounter [facility] Date(s): 09/06/22 - 09/23/[address] [address] Discharge Disposition: Transfer to [facility] Facility Attending Physician: Bruna DOWNING, Yanet Rodgers Admitting Physician: Chris DOWNING, Yoav Mackay Referring Physician: Not on Staff, Referring MD Allergies, Adverse Reactions, Alerts No Known Medication Allergies Substance Reaction Severity Status Other Environmental Allergy 1 Active 1Wool Immunizations Given and Recorded Vaccine Date Status Refusal Reason tetanus/diphtheria/pertussis, acel(Tdap) 09/07/22 Given Medications atorvastatin 40 mg oral tablet 1 tablet = 40 mg, By Mouth, Daily, # 90 tablet, 1 Refills, Maintenance, 11/20/20 10:30:00 EDT, Tablet, [facility] #[id number], 172, cm, 08/01/20 13:59:00 EDT, Height Start Date: 11/20/20 Stop Date: 05/19/21 Status: Ordered Combivent Respimat 20 mcg-100 mcg/inh inhalation aerosol 1 puffs, Inhalation, 4 times a day, PRN Wheezing/Shortness of Breath, # 1 each, 3 Refills, Maintenance, 06/13/20 15:39:00 EST, Aerosol, [facility]/pharmacy #[id number], Partial fill upon patient request if the prescription is for a schedule II opioid drug., 1 puff... Start Date: 06/13/20 Status: Ordered fenofibrate 54 mg oral tablet 1 tablet = 54 mg, By Mouth, Daily, # 30 tablet, 0 Refills, Maintenance, 05/10/21 11:35:00 EST, [facility] #[id number], Partial fill upon patient request if the [...] Date: 04/01/21 Stop Date: 05/01/21 Status: Ordered insulin lispro 100 units/mL injectable solution 6-14 units, Subcutaneous Injection, 3 times a day before meals, 0 Refills, Maintenance, 09/18/22 8:09:00 EDT, Injection, Partial fill upon patient request if the prescription is for a schedule II opioid drug. Start Date: 09/18/22 Status: Ordered lisinopril 5 mg oral tablet 5 mg, Tablet, By Mouth, 09/23/22 9:00:00 EDT Start Date: 09/23/22 Stop Date: 09/23/22 Status: Completed metoprolol 25 mg oral tablet, extended release 25 mg, XL Tablet, By Mouth, 09/23/22 9:00:00 EDT Start Date: 09/23/22 Stop Date: 09/23/22 Status: Completed metoprolol 25 mg oral tablet, extended release 25 mg, 1, tablet, By Mouth, Daily, # 90 tablet, Refills 1, Tot. Refills 1, Maintenance, 10/19/20 15:29:00 EDT, Route to Pharmacy Electronically, [facility] #[id number], 172, cm, 08/01/20 13:59:00 EDT, Height Start Date: 10/19/20 Stop Date: 04/17/21 Status: Ordered omeprazole 40 mg oral enteric coated capsule 1 capsule = 40 mg, By Mouth, Daily, # 90 capsule, 0 Refills, Maintenance, 04/24/21 14:31:00 EST, ECCapsule, [facility] #[id number], Partial fill upon patient request if the prescription is for a schedule II opioid drug., 175, cm, 02/14/21 20:23:... Start Date: 04/24/21 Status: Ordered QUEtiapine 100 mg oral tablet 1, tablet, By Mouth, Daily, bloodwork and appt needed, # 30 tablet, Refills 1, Tot. Refills 1, Maintenance, 02/08/21 9:46:00 EDT, Route to Pharmacy Electronically, [facility] #[id number], 172, cm, 08/01/20 13:59:00 EDT, Height Start [...] Date: 05/17/20 Status: Ordered Problem List Condition Confirmation Course Effective Dates Status H ealth Status Informant Abdominal aortic ectasia Confirmed Active Calcification of abdominal aorta Confirmed Active Chronic low back pain Confirmed Active Chronic obstructive pulmonary disease Confirmed Active Chronic pain syndrome Confirmed Active Compression fracture of spine Confirmed Active 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 Active Gastritis Confirmed Active GI bleed Confirmed Active History of lung cancer Confirmed Active Homelessness Confirmed Active Hyperlipidemia Confirmed Active HTN (hypertension) Confirmed Active Obese class I Confirmed Active Opiate dependence Confirmed Active OA (osteoarthritis) Confirmed Active Major depression, recurrent Confirmed Active Schizoaffective disorder Confirmed Active Smoking Confirmed Active Diabetes mellitus, type II Confirmed Active Duodenal ulcer Confirmed Active Results Radiology Reports * Exam Date Time Procedure Performing Provider Status 09/12/22 8:35 AM Chest Portable Ananda Zamora (Verified) Notes: (Chest Portable) Reason For Exam: chest pain;Cough RESULT: Chest Portable Chest Portable Reason: Cough; chest pain; history of lung cancer and partial right lower lobectomy. COMPARISON: 02/14/2021 FINDINGS: LINES AND TUBES: None. LUNGS AND PLEURA: Stable postoperative changes right chest. No consolidation or edema. No pleural effusion. No pneumothorax. HEART, MEDIASTINUM AND ANTHONY: Unchanged. No cardiomegaly. BONES AND SOFT TISSUES: No acute abnormality. IMPRESSION: No change. No acute abnormality WSN: [id number] Ordering Physician: Johnathan Cunningham Dictated By: Curtis Carmona MD Dictated Date/Time: 09/12/22 8:36 am Reviewed By: Curtis Carmona MD Signed By: Curtis Carmona MD Signed Date/Time: 09/12/22 8:36 am Transcribed By: PRASHANTH Transcribed Date/Time: 09/12/22 8:35 am Vital Signs Most recent to oldest [Reference Range]: 1 2 3 Height 175 cm (09/22/22 5:59 AM) 175 cm (09/21/22 9:40 PM) 175 cm (09/21/22 2:51 PM) Weight 84.3 kg (09/11/22 12:00 PM) Oxygen Saturation [94-100 %] 96 % (09/23/22 2:00 PM) 97 % (09/23/22 5:00 AM) 97 % (09/22/22 9:00 PM) Pulse Rate [55-90 bpm] 73 bpm (09/23/22 2:00 PM) 63 bpm (09/23/22 9:08 AM) 53 bpm *L* (09/23/22 5:00 AM) Body Mass Index [18.5-24.99 kg/m2] 27.53 kg/m2 *H* (09/11/22 12:00 PM) Blood Pressure [90-138/55-84 mm Hg] 128/73mm Hg (09/23/22 2:00 PM) 136/68mm Hg (09/23/22 9:08 AM) 136/68mm Hg (09/23/22 9:08 AM) Respiratory Rate [16-30 br/min] 18 br/min (09/23/22 2:00 PM) 16 br/min (09/23/22 5:00 AM) 16 br/min (09/22/22 9:00 PM) Temperature [96.8-100.4 DegF] 97.8 DegF (09/23/22 2:00 PM) 97.8 DegF (09/23/22 5:00 AM) 97.5 DegF (09/22/22 9:00 PM) Mode of Delivery (Oxygen) Room air (09/23/22 2:00 PM) Room air (09/23/22 5:00 AM) Room air (09/22/22 9:00 PM) Blood pressure sites Arm, left (09/23/22 2:00 PM) Arm, right (09/23/22 5:00 AM) Arm, left (09/22/22 9:00 PM) Temperature Route Oral (09/23/22 2:00 PM) Oral (09/23/22 5:00 AM) Oral (09/22/22 9:00 PM) Dry Weight 84.3 kg (09/11/22 12:00 PM) Social History Social History Type Response Tobacco Use: 2 PPD. Interest ed in cessation: No. Other: about 2.5 ppd. Type: Cigarettes. Sex History and physical note * Peterson DOWNING, Ammy: PERFORM Event Display: History and Physical Hospital Authored Date: [id number] Patient: ??FABRICIOKYLE ? Age:??62 Years?Sex:??Male?:??1960?? Chief Complaint/Reason for Consultation SI History of Present Illness Date of exam: 09/10/2022 ?? 62-year-old male with past medical history significant for polysubstance abuse, opioid use disorderon Suboxone, hypertension, hyperlipidemia, COPD, status post spinal compression fracture, wheelchair dependent, type 2 diabetes, active smoker, lung cancer in remission, depression, presented to ED on 09/07/2022 with suicidal ideation.?? Reported that his depression was worse lately and he had not been taking any of his meds including Suboxone for many days, apparently stole money from his roommate and smoked $3000 worth of crack cocaine over 3-day period to kill himself. ?? Upon arrival to ED, afebrile, hemodynamically stable, saturating well on room air.?? Labs with no leukocytosis, mild hyponatremia with sodium 130, blood sugars in the 200s, kidney function stable, toxicology screen positive for cocaine, COVID-19 negative, UA normal.?? Psychiatry consulted, recommended to start duloxetine, hydroxyzine, trazodone, quetiapine, bed search initiated.?? Hospitalist service consulted to admit the patient as he has been boarding in the ED since 09/07 and there are barriers for placement into inpatient psychiatry unit. ?? During my exam, he is sleeping comfortably.?? Does not appear to be in any acute distress. Review of Systems Overall negative review of systems Objective Vital Signs?? Temperature: 97.7 DegF (09/10/22 17:09:00) Temperature Route: Oral (09/10/22 17:09:00) Pulse Rate: 66 bpm (09/10/22 17:09:00) Respiratory Rate: 18 br/min (09/10/22 17:09:00) Systolic Blood Pressure: 109 mm Hg (09/10/22:09:00) Diastolic Blood Pressure: 59 mm Hg (09/10/22:09:00) Blood pressure sites: Arm, left (09/10/22:09:00) Mean Arterial Pressure: 96 mm Hg (09/10/22 08:09:00) Pulse Pressure: 50 mm Hg (09/10/22 17:09:00) Oxygen Saturation: 96 % (09/10/22 17:09:00) Mode of Delivery (Oxygen): Room air (09/10/22 17:09:00) Early Warning Score: 2 (09/10/22 17:20:58) ? Physical Exam General: NAD HEENT: Atraumatic, normocephalic Neck: Supple Cardiac: S1, S2 heard,??RRR Pulmonary: Clear to auscultation bilaterally, good bilateral air entry Abdomen: Soft, bowel sounds heard Extremities: No cyanosis, clubbing Neuro: Somnolent, wheelchair-bound Assessment/Plan Assessment:??62-year-old male with past medical history significant for polysubstance abuse, opioiduse disorder on Suboxone, hypertension, hyperlipidemia, COPD, status post spinal compression fracture, wheelchair dependent, type 2 diabetes, active smoker, lung cancer in remission, depression,??admitted for suicidal ideation and attempt ?? Suicidal behavior (R45.89):?? Anxiety (F41.9):?? Depressive disorder (F32.A):?? Cocaine use (F14.90):?? Presented on 09/07/2022 after??smoking a large amount of cocaine??as a suicidal attempt Active bed search in place Psychiatry consulted, appreciate input Per their??recommendations: -Continue constant oyster picker. Patient may NOT leave AMA without psychiatry clearance. -Start duloxetine 60 mg PO QD for mood stabilization, first dose now. Patient historically tolerated 60 mg daily and has not tried any higher doses. ??-Start hydroxyzine 50 mg PO Q6H PRN anxiety. ??-Start trazodone 50-100 mg PO QHS PRN insomnia. ??-Start quetiapine 50 mg PO Q6H PRN agitation/psychosis. ??-Monitor??QTc ??-??Follow-up with expanded urine toxicology ?? Opiate dependence (F11.20):??Continue Suboxone ?? Diabetes mellitus, type II (E11.9):??SSI with POC glucose check ?? HTN (hypertension) (I10):??Continue metoprolol ?? Hyperlipidemia (E78.5):??Continue fenofibrate ?? Chronic obstructive pulmonary disease (J44.9):??Not in exacerbation,??as needed bronchodilators ?? VTE Prophylaxis:??SCDs ?VTE Prophylaxis Assessment:??VTE Prophylaxis Ordered ?? Code Status:??Presumed full code ?? Discharge Planning:? Histories Allergies Allergies ?(Active and Proposed Allergies Only) No Known Medication Allergies? (Severity: Unknown severity, Onset: Unknown) Other Environmental Allergy? (Severity: Unknown severity, Onset: Unknown) ?Comments: Wool ? Past Medical History/Problem List Active Problems??(20) Abdominal aortic ectasia Calcification of abdominal aorta Chronic low back pain Chronic obstructive pulmonary disease Chronic pain syndrome Compression fracture of spine Diabetes mellitus, type II Duodenal ulcer Gastritis GI bleed History of lung cancer Homelessness HTN (hypertension) Hyperlipidemia Major depression, recurrent OA (osteoarthritis) Opiate dependence Schizoaffective disorder Smoking Substance abuse in remission ? Past Surgical History Reconstruction of facial bones Ankle CA - Lung cancer Heart H/O: major abdominal surgery Repair of ruptured spleen (splenorrhaphy) with or without partial splenectomy ? Social History Alcohol Details:??Use: Past. Details:??Use: Never. Home/Environment Details:??Living situation: Homeless/Snf. ??Other: currently at [facility]. Substance Abuse Details:??Use: Past. Details:??Use: Current. ??Type: Marijuana. Tobacco Details:??Use: 10 or more cigarettes (1/2 pack or more)/day in last 30 days. ??Other: about 2.5 ppd. ? Family History Mother (): Diabetes mellitus type II Brother: Alcoholism; Myocardial infarction ? Medications Home Medications Albuterol/Ipratropium (Combivent Respimat 20 mcg-100 mcg/inh inhalation aerosol)?1?puff(s)?Inhalation?4 times a day?as needed?Wheezing/Shortness of Breath Atorvastatin (atorvastatin 40 mg oral tablet)?1?tab(s)?40?Milligram?By Mouth?Daily?for 90?Days Buprenorphine-Naloxone (Suboxone 2 mg-0.5 mg sublingual film)?1?Film?Sublingual?Daily Duloxetine (duloxetine 30 mg oral enteric coated capsule)?1?capsule?By Mouth?Daily?for 90?Days Durable Medical Equipment (Wheelchair)?See Instructions?Electric wheelchairDX: M17.0 (not knee replacement candidate) Durable Medical Equipment (FREESTYLE FREEDOM LITE KIT)?USE DIRECTED Durable Medical Equipment (Freestyle Lite Lancets)?See Instructions?for 30?Days?use as directed for Type 2 Diabetes Mellitustest 2x daily Durable Medical Equipment (Freestyle Lite Test Strips)?See Instructions?for 30?Days?useas directed for Type 2 Diabetes Mellitusto test 2x ??daily Fenofibrate (fenofibrate 54 mg oral tablet)?1?tab(s)?54?Milligram?By Mouth?Daily Gabapentin (gabapentin 300 mg oral capsule)?600?Milligram?2?capsule?By Mouth?3 times a day?for 30?Days?PLEASE CALL OFFICE FOR RESCHEDULE APPT. Lisinopril (lisinopril 20 mg oral tablet)?1?tablet?By Mouth?Daily Metformin (metFORMIN 750 mg oral tablet, extended release)?1?tab(s)?750?Milligram?ByMouth?2 times a day?Call for appt SWAPNIL before next refillwith food Metformin (metFORMIN 500 mg oral tablet, extended release)?2?tab(s)?1,000?Milligram?By Mouth?Daily Metformin (MetFORMIN (Eqv-Glucophage XR) 500 mg oral tablet, extended release)?2?tab(s)?1,000?Milligram?By Mouth?2 times a day?for 30?Days Metoprolol (metoprolol 25 mg oral tablet, extended release)?25?Milligram?1?tablet?ByMouth?Daily?for 90?Days Metoprolol (metoprolol 25 mg oral tablet, extended release)?25?Milligram?1?tablet?ByMouth?Daily Omeprazole (omeprazole 40 mg oral enteric coated capsule)?1?capsule?40?Milligram?By Mouth?Daily Quetiapine (QUEtiapine 100 mg oral tablet)?1?tablet?By Mouth?Daily?bloodwork and appt needed Quetiapine (QUEtiapine 100 mg oral tablet)?See Instructions?TAKE 1 TABLET BY MOUTH DAILY BLOODWORK AND APPOINTMENT NEEDED Sucralfate (sucralfate 1 gm oral tablet)?1?gram?1?tablet?By Mouth?4 times a day ? Results Recent Labs CHEM GENERAL Glucose, POC 276 mg/dL (High)?? 09/10/2022 17:19 ? EKG study * Event Display: EKG Authored Date: * Event Display: EKG Authored Date: * Event Display: ECG 12-Lead Authored Date: Please click on pdf link to open report * Event Display: ECG 12-Lead Authored Date: Ventricular Rate: 77 BPM Atrial Rate: 77 BPM P-R Interval: 204 ms QRS Duration: 98 ms Q-T Interval: 388 ms QTC Calculation(Bazett): 439 ms P Guild: 24 degrees R Guild: 21 degrees T Guild: 89 degrees Normal sinus rhythm Increased R/S ratio in V1, consider early transition or posterior infarct Abnormal ECG When compared with ECG of 09-SEP-2022 13:12, No significant change was found Confirmed by ERIK JACKSON ([id number]) on 09/12/2022 10:16:47 AM [place]: ERIK JACKSON * Event Display: ECG 12-Lead Authored Date: Please click on pdf link to open report * Event Display: ECG 12-Lead Authored Date: Ventricular Rate: 69 BPM Atrial Rate: 69 BPM P-R Interval: 220 ms QRS Duration: 94 ms Q-T Interval: 392 ms QTC Calculation(Bazett): 420 ms P Guild: 31 degrees R Guild: 22 degrees T Guild: 79 degrees Sinus rhythm with 1st degree A-V block Increased R/S ratio in V1, consider early transition or posterior infarct Abnormal ECG When compared with ECG of 14-FEB-2021 20:50, MT interval has increased Confirmed by NILAY SUN ([id number]) on 09/09/2022 2:11:14 PM [place]: NILAY SUN Hospital Progress note * Merna Moreira: MODIFY, SIGN, VERIFY, PERFORM Event Display: Progress Note Hospital Authored Date: Patient: KYLE REGALADO Age: 62 years Sex: Male : 1960 Associated Diagnoses: None Author: Merna Moreira Current Support Systems/Community Resources Data Source: Patient, Chart, Psychiatric Crisis Assessment. Current Home Address/Phone Number [address] [address] Cell Substance History 09/07/2022 ED UTOX: (+) Cocaine, (-) all other substances, (0) BAL Discharge Information Patient Education Psychoeducation regarding substance abuse and its effects on the mental status, substance abuse treatment options, development of healthy coping skills, resources in the community Formulation Formulation Information This is the first known psychiatric hospitalization for Kyle, a 62 year old single, malewho self-presented to [facility] ED via EMS on 09/07/2022 secondary to increased depression and suicidalitywith a plan to overdose on cocaine after purchasing $2800 worth in the context of medical issues leading to physical decline. Patient's motivation toward change Kyle signed in for treatment Interdisciplinary Team Meetings Assessed Discharge/Treatment Needs: Accessed Discharge/Treatment Needs Stabilization of symptoms, medication evaluation, obtain outpatient providers, substance abuse treatment as needed, other community resources as needed . Social Work Plan Target Discharge Date 10/01/2022 Insurance Coverage Medicare Replacement [id number] Inpatient goals Maintain safety, learn healthy coping skills, engage in groups, adhere to medications Discharge Plan Stabilize and discharge with providers Counselor's Attestation Patient seen with: Patient seen by Supervising Maintenance Plumber/Mental Health Counselor Merna Moreira. * Luis Armando Alford RN: PERFORM, SIGN, VERIFY Event Display: Progress Note Hospital Authored Date: [id number] Patient: KYLE REGALADO Age: 62 years Sex: Male : 1960 Associated Diagnoses: None Author: Luis Armando Alford RN Findings Problem Related to Alteration in Psychosocial : Alteration in Psychosocial Function/new 09/23/2022 7:00 EDT Alteration in Psychosocial Related to Substance abuse, Suicidal Goals & Outcomes, Psychosocial Psychosocial support will be provided to Pt/S.O. as needed, Pt will identify stressors leading up to event, Pt will state importance of adhering to medication regime, Pt/caregiver will be offered appropriate resources & support, Pt/caregiver will express feelings/needs/fears /concerns, Pt/caregiver will maintain/obtain psychological stability Interventions, Psychosocial Assess psychosocial needs, Provide a calm, supportive environment BH Goals/Interventions, Psychosocial Yes Psychosocial, Problem Start 09/11/2022 12:00 Reviewed Plan with, Psychosocial Patient Patient Progression, Psychosocial Pt progressing according to plan . Narrative/Incidental Pt AOX3. Pt rpeorts no pain in assessment/ Pt took meds no issues. Pt poc were fine over night no coverage was needed. Pt reported bowel movmeent on , nothing earlier in day. Pt slept most of night no issues. Was reporting feeling a little anxious at times still. Sitter bed side. [facility] . * Svitlana Russo RN: PERFORM, SIGN, VERIFY Event Display: Progress Note Hospital Authored Date: [id number] Patient: KYLE REGALADO Age: 62 years Sex: Male : 1960 Associated Diagnoses: None Author: Svitlana Russo RN Findings Narrative/Incidental Behavior Resource RN Note: Case discussed with EMANUEL Garcia and chart reviewed to evaluate use of constant oyster picker for suicidal ideation per suicide precautions. Per ED psychiatric consult note in [facility] 09/09 ???this is a 62-year-old male with past history of hypertension, hyperlipidemia, COPD, chronic back pain s/p spinal compression fracture and dependence on wheelchair, T2DM, opioid dependence on MAT (buprenorphine-naloxone 2 mg-0.5 mg daily), tobacco use, lung cancer in remission, depression, at least one suicide attempt by jumping out a window in 1994, at least one inpatient psychiatric hospitalization, and at least two section 35 treatments, who presented to [facility] ED on 07/08/22 after a suicide attempt by bingeing on $3000 worth of crack cocaine over a 3-day period. At this point in time, the patient has been medically cleared and referred to [facility] Crisis for evaluation and assistance with potential psychiatric disposition.?? Per Radha, pt. has been calm/cooperative, able to ambulate with walker with 1 assist. [facility] has pre-accepted pt. for tomorrow 09/23. Recommendations ??? - Please continue constant oyster picker for safety and ensure that all 1:1's are getting a report of patient at the beginning of shift - Please ensure that the 1:1 flow sheet is reviewed and signed by an RN each shift. - [place] Suicide Severity Scale ??? Repeat assessments must be completed daily in [facility] until suicide precautions are discontinued - Please remain vigilant about suicide precautions and environmental safety. - Offer validation and support as appropriate. - Encourage pt. to practice personal care and hygiene such as getting out of bed regularly, sittingup for meals, showering, brushing teeth and washing face daily when possible to prevent hospital deconditioning. - Call Behavior Resource team at [phone] or Cortext/page with any questions or concerns: Emeka Beckham, Rosalinda Mueller, Annette Farfan or Svitlana Russo . Note * Memo Tovar RN: PERFORM Event Display: Discharge/Transfer Note Hospital Authored Date: [id number] Nursing Discharge Note Entered On: 09/23/2022 15:39 EDT Performed On: 09/23/2022 15:35 EDT by Memo Tovar RN Nursing Discharge Note 2 Discharge Time : 09/23/2022 15:35 EDT Discharge Level of Care at Discharge : Psychiatric Facility/Unit Patient Left Unit Via : Wheelchair Patient Accompanied Off Unit with : Significant other DC Instructions Provided & Signed by Pt : Yes Patient Understands D/C Instructions : Yes Patient Instructions Discharge Signed : Yes Did Pt have Specialty Bed or Wound Vac : No Memo Tovar RN - 09/23/2022 15:39 EDT * Bruna DOWNING, Yanet Rodgers: PERFORM Event Display: Discharge/Transfer Note Hospital Authored Date: Patient: ??KYLE REGALADO ? Age:??62 Years?Sex:??Male?:??1960?? 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 _ Discharge Medications Albuterol/Ipratropium (Combivent Respimat 20 mcg-100 mcg/inh inhalation aerosol)?1?puff(s)?Inhalation?4 times a day?as needed?Wheezing/Shortness of Breath Atorvastatin (atorvastatin 40 mg oral tablet)?1?tab(s)?40?Milligram?By Mouth?Daily?for 90?Days Buprenorphine-Naloxone (Suboxone 2 mg-0.5 mg sublingual film)?1?Film?Sublingual?Daily Duloxetine (duloxetine 60 mg oral enteric coated capsule)?1?capsule?60?Milligram?By Mouth?Daily in AM Durable Medical Equipment (Wheelchair)?See Instructions?Electric wheelchairDX: M17.0 (not knee replacement candidate) Durable Medical Equipment ([employer] LITE KIT)?USE DIRECTED Durable Medical Equipment (Freestyle Lite Lancets)?See Instructions?for 30?Days?use as directed for Type 2 Diabetes Mellitustest 2x daily Durable Medical Equipment (Freestyle Lite Test Strips)?See Instructions?for 30?Days?useas directed for Type 2 Diabetes Mellitusto test 2x ??daily Fenofibrate (fenofibrate 54 mg oral tablet)?1?tab(s)?54?Milligram?By Mouth?Daily HydrOXYzine (hydrOXYzine pamoate 50 mg oral capsule)?1?capsule?50?Milligram?By Mouth?Every 6 hours?as needed?Anxiety Insulin Glargine (Lantus Inj)?0.35?Milliliter?35?unit(s)?Subcutaneous Injection?Daily before breakfast Insulin Lispro (insulin lispro 100 units/mL injectable solution)?6-14 units?Subcutaneous Injection?3 times a day before meals Lisinopril (lisinopril 5 mg oral tablet)?5?Milligram?1?tablet?By Mouth?Daily Metformin (metFORMIN 500 mg oral tablet)?1?Each?500?Milligram?By Mouth?2 times a day Metoprolol (metoprolol 25 mg oral tablet, extended release)?25?Milligram?1?tablet?ByMouth?Daily?for 90?Days Omeprazole (omeprazole 40 mg oral enteric coated capsule)?1?capsule?40?Milligram?By Mouth?Daily Polyethylene Glycol 3350 (MiraLax Powder)?1?pack/packet?17?gram?By Mouth?Daily Quetiapine (QUEtiapine 100 mg oral tablet)?1?tablet?By Mouth?Daily?bloodwork and appt needed Sodium Biphosphate-Sodium Phosphate (Fleet Enema)?1?Each?Rectally?Once?as needed?Constipation Trazodone (traZODone 50 mg oral tablet)?50?Milligram?1?tablet?By Mouth?Daily at bedtime?as needed?Insomnia ? Medications Started None Doses Changed Insulin Lantus dose increased to??35 units from 30 units Allergies Allergies ?(Active and Proposed Allergies Only) No Known Medication Allergies? (Severity: Unknown severity, Onset: Unknown) Other Environmental Allergy? (Severity: Unknown severity, Onset: Unknown) ?Comments: Wool ? Hospital Course 62-year-old male with a past medical history significant for polysubstance abuse, opioid use disorder on Suboxone, hypertension, hyperlipidemia, COPD, status post spinal compression fracture, who is baseline wheelchair dependent, type 2 diabetes and depression who presented to the ED on 08/1422 withsuicidal ideation. Patient had reported increased depressive symptoms and had not been taking his regular medications including Suboxone and had apparently smoked $3000 worth of crack cocaine over 3-day in an attempt to kill himself. Upon arrival to the ED patient was hemodynamically stable saturating well on room air Labs significant for mild hyponatremia elevated blood sugar and toxicology scree n positive for cocaine. Psychiatry was consulted who recommended starting patient on duloxetine hydroxyzine trazodone Seroquel and a inpatient psychiatry bed search was initiated. Patient was admitted to the medicine service until placement was available. ?? Throughout the hospitalization a one-to-one sitter was present with suicide precautions per facility policy. Patient continued to express suicidal ideation throughout the hospitalization. Has been able to tolerate the new medical regimen. ?? His only medical complaint during hospitalization was constipation which was managed with as neededenemas and laxatives. ?? His blood glucose level was monitored closely during hospitalization.??Lantus dose was increased to35 units??bedtime??and he will continue with 6???14??lispro sliding scale 3 times a day. Should follow a diabetic diet.??COPD was not in exacerbation during this admission??and his regular home medications were continued. ?? Patient has been accepted to [facility]. Medically cleared for discharge. ?? Objective Measurements?? Height: 175 cm (09/22/22) Weight: 84.3 kg (09/11/22) Dry Weight: 84.3 kg (09/11/22) Body Mass Index:??27.53 kg/m2??High (09/11/22) ? Vital Signs?? Temperature: 97.8 DegF (09/23/22 05:00:00) Temperature Route: Oral (09/23/22 05:00:00) Pulse Rate: 63 bpm (09/23/22 09:08:00) Respiratory Rate: 16 br/min (09/23/22 05:00:00) Systolic Blood Pressure: 136 mm Hg (09/23/22 09:08:00) Systolic Blood Pressure: 136 mm Hg (09/23/22 09:08:00) Diastolic Blood Pressure: 68 mm Hg (09/23/22 09:08:00) Diastolic Blood Pressure: 68 mm Hg (09/23/22 09:08:00) Blood pressure sites: Arm, right (09/23/22 05:00:00) Pulse Pressure: 53 mm Hg (09/23/22 05:00:00) Oxygen Saturation: 97 % (09/23/22 05:00:00) Mode of Delivery (Oxygen): Room air (09/23/22 05:00:00) Early Warning Score: 2 (09/23/22 09:14:16) ? . Physical Exam Constitutional: Alert, in no acute distress.?? In good spirits today. Head: Normocephalic. ?? Eyes: Pupils are equal, round and reactive to light. Extraocular muscles intact. No pallor or scleral icterus ?? Ear, Nose and Throat: mucous membranes moist. Ears and nose - no obvious deformities. Trachea midline. ?? Neck: Supple, Full range of motion.No JVD or bruits. Respiratory:??Clear to auscultation. No wheezing or rhonchi.??No use of accessory muscles. No tactile fremitus.?? Cardiovascular:??PMI not visible. S1 S2 regular. No murmurs, rubs or gallops. Gastrointestinal:??Abdomen soft, non-tender, non-distended. Normal bowel sounds. No pulsatile mass.No hepatosplenomegaly. Genitourinary:??No costovertebral angle tenderness. Extremities: No lower extremity pitting edema. No cyanosis or clubbing. Neurologic:??AAOx3, no focal neurological deficits Pending Results Add On Lab Order ordered on 09/09/2022 Hepatitis B Surface Ab Quant ordered on 09/12/2022 Follow-Up Appointments Added Follow Up ?Time Frame ?Comments Ethan DO, Terrell?1 month Post Discharge Care Diet: Diabetic Diet Activity: Ambulate with assistance ??3 times a day ??unless otherwise specified Code Status: ?? Full Resuscitation Discharge ?09/23/22 11:12:00 EDT Home Health Face to Face ^[facility] Results Discharge Labs BLOOD COUNT & DIFF WBC 8.4 k/mm3 ()?? 09/07/2022 00:34 RBC 4.70 m/mm3 ()?? 09/07/2022 00:34 Hgb 12.6 Gm/dL (Low)?? 09/07/2022 00:34 Hct 38.6 % (Low)?? 09/07/2022 00:34 MCV 82.1 femtoliters ()?? 09/07/2022 00:34 MCH 26.8 pg (Low)?? 09/07/2022 00:34 MCHC 32.6 g/dL (Low)?? 09/07/2022 00:34 Platelet Count 262 k/mm3 ()?? 09/07/2022 00:34 RDW-SD 46.3 femtoliters ()?? 09/07/2022 00:34 MPV 9.6 femtoliters ()?? 09/07/2022 00:34 Nucleated RBC (Automated) 0.0 #/100 WBC'S ()?? 09/07/2022 00:34 Abs. NRBC 0.0 k/mm3 ()?? 09/07/2022 00:34 Abs. Neut 5.9 k/mm3 ()?? 09/07/2022 00:34 Abs. Lymph 1.4 k/mm3 ()?? 09/07/2022 00:34 Abs. Red Willow 1.0 k/mm3 ()?? 09/07/2022 00:34 Abs. Eo 0.0 k/mm3 ()?? 09/07/2022 00:34 Abs. Baso 0.1 k/mm3 ()?? 09/07/2022 00:34 Neut % 70.0 % ()?? 09/07/2022 00:34 Lymph % 17.0 % ()?? 09/07/2022 00:34 Red Willow % 11.3 % (High)?? 09/07/2022 00:34 Eos % 0.5 % ()?? 09/07/2022 00:34 Baso % 0.6 % ()?? 09/07/2022 00:34 Imm Gran 0.6 % ()?? 09/07/2022 00:34 Abs. Imm Gran 0.1 k/mm3 ()?? 09/07/2022 00:34 ?? CARDIAC CK, Total 326 units/L (High)?? 09/07/2022 00:34 High Sensitivity Troponin (HSTnT) 23 ng/L (High)?? 09/11/2022 16:23 ?? CHEM GENERAL Sodium 130 mmol/L (Low)?? 09/07/2022 00:34 Potassium 4.2 mmol/L ()?? 09/07/2022 00:34 Chloride 94 mmol/L (Low)?? 09/07/2022 00:34 Bicarbonate Level 23 mmol/L ()?? 09/07/2022 00:34 Anion Gap 13 ()?? 09/07/2022 00:34 Glucose Level 255 mg/dL (High)?? 09/07/2022 00:34 Glucose, POC 156 mg/dL (High)?? 09/23/2022 07:52 BUN 17 mg/dL ()?? 09/07/2022 00:34 Creatinine-Blood 0.7 mg/dL ()?? 09/07/2022 00:34 Estimated GFR Creatinine 104 ML/MIN/1.73 M2 ()?? 09/07/2022 00:34 Calcium 9.5 mg/dL ()?? 09/07/2022 00:34 ? ENDOCRINE/TUMOR MARKER TSH 4.11 uIU/mL ()?? 09/07/2022 00:34 Free T4 1.07 ng/dL ()?? 09/07/2022 00:34 ?? SEROLOGY INF DISEASE Hepatitis B Surface Antigen NEGATIVE (N)?? 09/12/2022 09:47 Hepatitis B Core Ab, Total POSITIVE (Abnormal)?? 09/12/2022 09:47 Hepatitis B e Antigen NEGATIVE ()?? 09/12/2022 09:47 Hepatitis B e Ab NEGATIVE ()?? 09/12/2022 09:47 ?? TOXICOLOGY/TDM Ethanol, Serum or Plasma NONE DETECTED mg/dL ()?? 09/07/2022 00:34 Salicylate Level <0.3 mg/dL (Low)?? 09/07/2022 00:34 Barbiturate Screen, Urine NONE DETECTED ()?? 09/07/2022 00:40 Cannabinoid Screen, Urine NONE DETECTED ()?? 09/07/2022 00:40 Cocaine Metabolite Screen, Urine POSITIVE (Abnormal)?? 09/07/2022 00:40 Benzodiazepine Screen, Urine NONE DETECTED ()?? 09/07/2022 00:40 Amphetamine Screen, Urine NONE DETECTED ()?? 09/07/2022 00:40 Opiate Screen, Urine NONE DETECTED ()?? 09/07/2022 00:40 Acetaminophen Level <5 mg/L (Low)?? 09/07/2022 00:34 Fentanyl Screen, Urine Result NONE DETECTED ()?? 09/07/2022 00:40 ?? UA/URINALYSIS Appear/Color, Urine YELLOW ()?? 09/07/2022 00:40 Specific Albert, Urine 1.041 (High)?? 09/07/2022 00:40 pH, Urine 6.0 ()?? 09/07/2022 00:40 Albumin, Urine 1+ (Abnormal)?? 09/07/2022 00:40 Glucose, Urine 4+ (Abnormal)?? 09/07/2022 00:40 Ketones, Urine 1+ (Abnormal)?? 09/07/2022 00:40 Bilirubin, Urine NEGATIVE ()?? 09/07/2022 00:40 Hemoglobin, Urine NEGATIVE ()?? 09/07/2022 00:40 Nitrite, Urine NEGATIVE ()?? 09/07/2022 00:40 Leukocyte, Urine NEGATIVE ()?? 09/07/2022 00:40 Urobilinogen 2 mg/dL (Abnormal)?? 09/07/2022 00:40 WBC's, Urine NONE SEEN /HPF ()?? 09/07/2022 00:40 RBC's, Urine NONE SEEN /HPF ()?? 09/07/2022 00:40 Squamous Epith <1 /HPF ()?? 09/07/2022 00:40 Mucus MODERATE /LPF ()?? 09/07/2022 00:40 Hold Urine Culture Testing available 48 hours from time of collection. ()?? 09/07/2022 00:40 ?? URINE OTHER Est Creatinine Clearance 111.85 mL/min ()?? 09/11/2022 12:28 ? VIROLOGY COVID-19 by RT-PCR NEGATIVE ()?? 09/22/2022 13:50 ? 32_ minutes spent on discharge * Memo Tovar RN: PERFORM Event Display: Patient Education/Instruction Authored Date: [id number] Inpatient Adult Discharge Instructions [address] [id number] Name: KYLE REGALADO : 1960 Visit: 09/06/2022 23:25:00 Current Date: 09/23/2022 11:54 Account: [id number] Inpatient Adult Discharge Instructions We would like [...] and their families. Surveys are administered by [employer] ?? If further treatment with your primary care physician or another doctor is recommended, it is important for you to keep the appointment. Call your primary care physician or return to the Emergency Department immediately if your condition worsens, fails to improve, or new symptoms develop. If you need to find a doctor, you can call [facility] for a referral at [phone] or toll free at [phone] ([phone]) or log in to [email or web address].. ?? You can view and manage your care through the patient portal or by using a health care gina of your choosing. [employer] is a website that allows you to securely view your medical information including your hospital discharge summary, office visit summaries, medications and follow-up visits. You can also request appointments, renew medications, and request access to your medical information using a health care gina of your choosing, or just ask a question. You can enroll at [email or web address] or register during your next office visit. You have been discharged from [facility], Patient Care Unit: S64. If you have any questions regarding these instructions after you leave, please call us and we will be happy to assist you. [facility] Your Care Team Attending Physician Bruna DOWNING, Yanet Rodgers Consulting Providers Noa Venegas MD Discharging Providers Bruna DOWNING, Yanet Rodgers Reason for Your Visit SI Your Diagnosis Suicidal ideation Major depression, recurrent Diabetes mellitus, type II HTN (hypertension) Chronic obstructive pulmonary disease Anxiety Cocaine-induced anxiety disorder Opiate dependence Tests Performed Below is a partial list of the tests performed during your hospitalization. You may have had other tests and procedures not included in this list. Please discuss all test results with your provider. Acetaminophen Level Alcohol Level AMPHETAMINE SCREEN, URINE Aspirin Level BARBITURATES SCREEN, URINE Basic Metabolic Panel BENZODIAZEPINE SCREEN, URINE CANNABINOID SCREEN, URINE CBC w/ Differential Cocaine Urine Screen COVID-19 (NOVEL CORONAVIRUS), PCR CPK Total Only Fentanyl Screen, Urine FREE T4 GLUCOSE POC Hepatitis B Core Ab Hepatitis B Surface Antigen Hepatitis Be Ab Hepatitis Be Antigen Opiate Screen Urine Troponin T, High Sensitivity TSH with T4 Reflex (Adults Only) Urinalysis w/hold for Urine Culture CXR Portable Primary Care Provider Terrell Long DO Advance Directive . Discharge Vitals Temperature: 97.8 DegF Height: 175 cm Pulse Rate: 63 bpm Weight: 84.3 kg Respiratory Rate: 16 br/min Body Mass Index:??27.53 kg/m2??High Systolic Blood Pressure: 136 mm Hg Body surface area: 2.02 Systolic Blood Pressure: 136 mm Hg ?? Diastolic Blood Pressure: 68 mm Hg ?? Diastolic Blood Pressure: 68 mm Hg ?? Oxygen Saturation: 97 % ?? Studies Pending All tests and labs ordered during this hospital stay have been completed unless listed below. Please discuss all pending results with your provider listed above in these instructions. ?? Add On Lab Order Hepatitis B Surface Ab Quant What to do next Instructions From Your Doctor Discharge Orders Diet:??Diabetic Diet Activity:??Ambulate with assistance 3 times a day unless otherwise specified Code Status:?? Full Resuscitation You Need to Schedule the Following Appointments Follow Up with??Terrell Long DO When:??Within 1 month Where: ?? Discharge Medications KYLE REGALADO :1960 Visit Date:09/06/2022 Medications: Please continue your medications until treatment is completed or stopped by your provider. Medications not listed below should be discontinued. Discuss any questions related to medications with your provider. What How Much When Why Instructions Next Dose New HydrOXYzine (hydrOXYzine pamoate 50 mg oral capsule) 1 capsule Oral Every 6 hours as needed for Anxiety As Needed New Insulin Glargine (Lantus Inj) 35 unit(s) Subcutaneous Injection Daily before breakfast Resume New Insulin Lispro (insulin lispro 100 units/ mL injectable solution) 6-14 units Subcutaneous Injection 3 times a day before meals With meals New Polyethylene Glycol 3350 (MiraLax Powder) 17 gram Oral Daily Resume New Sodium Biphosphate-Sodium Phosphate (Fleet Enema) 1 Each Per rectum Once as needed for Constipation As Needed New Trazodone (traZODone 50 mg oral tablet) 1 tab(s) Oral Daily at Bedtime as needed for Insomnia As Needed Changed Duloxetine (duloxetine 60 mg oral enteric coated capsule) 1 capsule Oral Daily in the morning 09/24 AM Changed Lisinopril (lisinopril 5 mg oral tablet) 1 tab(s) Oral Daily 09/24 AM Changed Metformin (metFORMIN 500 mg oral tablet) 1 Each Oral Twice a day Last administered 09/23 @ 0900 Changed Metoprolol (metoprolol 25 mg oral tablet, extended release) 1 tab(s) Oral Daily HTN (hypertension) Duration: 90 Days 09/24 Changed Quetiapine (QUEtiapine 100 mg oral tablet) 1 tab(s) Oral Daily Schizoaffective disorder Major depression, recurrent bloodwork and appt needed ?? Resume Unchanged Albuterol/ Ipratropium (Combivent Respimat 20 mcg-100 mcg/ inh inhalation aerosol) 1 puff(s) Inhalation 4 times a day as needed for Wheezing/Shortness of Breath As Needed Unchanged Atorvastatin (atorvastatin 40 mg oral tablet) 1 tab(s) Oral Daily Hyperlipidemia Duration: 90 Days 09/24 AM Unchanged Buprenorphine-Naloxone (Suboxone 2 mg-0.5 mg sublingual film) 1 Film Sublingual Daily 09/24 Unchanged Durable Medical Equipment (FREESTYLE FREEDOM LITE KIT) USE DIRECTED ?? Unchanged Durable Medical Equipment (Freestyle Lite Lancets) See instructions Duration: 30 Days use as directed for Type 2 Diabetes Mellitus test 2x daily ?? Unchanged Durable Medical Equipment (Freestyle Lite Test Strips) See instructions Duration: 30 Days use as directed for Type 2 Diabetes Mellitus to test 2x ??daily ?? Unchanged Durable Medical Equipment (Wheelchair) See instructions Electric wheelchair ?? DX: M17.0 (not knee replacement candidate) ?? Unchanged Fenofibrate (fenofibrate 54 mg oral tablet) 1 tab(s) Oral Daily 09/24 Unchanged Omeprazole (omeprazole 40 mg oral enteric coated capsule) 1 capsule Oral Daily 09/24 ?? What How Much When Comments Stop Taking Gabapentin (gabapentin 300 mg oral capsule) 2 capsule Oral 3 times a day Duration: 30 Days PLEASE CALL OFFICE FOR RESCHEDULE APPT. ?? Stop Taking Sucralfate (sucralfate 1 gm oral tablet) 1 tab(s) Oral 4 times a day Test Results Below is a partial list of the most recent Laboratory test results done prior to this discharge. You may have had other tests and procedures not included in this list. Please discuss all test resultswith your provider. Est Creatinine Clearance - 111.85 mL/min (09/11/2022) Acetaminophen Level (09/07/2022) ? ?Acetaminophen Level - <5 mg/L Alcohol Level (09/07/2022) ???Ethanol, Serum or Plasma - NONE DETECTED AMPHETAMINE SCREEN, URINE (09/07/2022) ???Amphetamine Screen, Urine - NONE DETECTED Aspirin Level (09/07/2022) ? ?Salicylate Level - <0.3 mg/dL BARBITURATES SCREEN, URINE (09/07/2022) ???Barbiturate Screen, Urine - NONE DETECTED Basic Metabolic Panel (09/07/2022) ???Sodium - 130 mmol/L???Potassium - 4.2 mmol/L???Chloride - 94 mmol/L???Bicarbonate Level - 23 mmol/L???Anion Gap - 13???Glucose Level - 255 mg/dL???BUN - 17 mg/dL???Creatinine-Blood - 0.7 mg/dL???Estimated GFR Creatinine - 104 ML/MIN/1.73 M2???Calcium - 9.5 mg/dL BENZODIAZEPINE SCREEN, URINE (09/07/2022) ???Benzodiazepine Screen, Urine - NONE DETECTED CANNABINOID SCREEN, URINE (09/07/2022) ???Cannabinoid Screen, Urine - NONE DETECTED CBC w/ Differential (09/07/2022) ???WBC - 8.4 k/mm3???RBC - 4.70 m/mm3???Hgb - 12.6 Gm/dL???Hct - 38.6 %???MCV - 82.1 femtoliters???MCH - 26.8 pg???MCHC - 32.6 g/dL???Platelet Count - 262 k/mm3???RDW-SD - 46.3 femtoliters???MPV - 9.6 femtoliters???Nucleated RBC (Automated) - 0.0 #/100 WBC'S???Abs. NRBC - 0.0 k/mm3???Abs. Neut - 5.9 k/mm3???Abs. Lymph - 1.4 k/mm3???Abs. Red Willow - 1.0 k/mm3???Abs. Eo - 0.0 k/mm3???Abs. Baso - 0.1 k/mm3???Neut % - 70.0 %???Lymph % - 17.0 %???Red Willow % - 11.3 %???Eos % - 0.5 %???Baso % - 0.6 %???Imm Gran - 0.6 %???Abs. Imm Gran - 0.1 k/mm3 Cocaine Urine Screen (09/07/2022) ???Cocaine Metabolite Screen, Urine - POSITIVE COVID-19 (NOVEL CORONAVIRUS), PCR (09/22/2022) ???COVID-19 by RT-PCR - NEGATIVE CPK Total Only (09/07/2022) ???CK, Total - 326 units/L Fentanyl Screen, Urine (09/07/2022) ???Fentanyl Screen, Urine Result - NONE DETECTED FREE T4 (09/07/2022) ???Free T4 - 1.07 ng/dL GLUCOSE POC (09/23/2022) ???Glucose, POC - 156 mg/dL Hepatitis B Core Ab (09/12/2022) ???Hepatitis B Core Ab, Total - POSITIVE Hepatitis B Surface Antigen (09/12/2022) ???Hepatitis B Surface Antigen - NEGATIVE Hepatitis Be Ab (09/12/2022) ???Hepatitis B e Ab - NEGATIVE Hepatitis Be Antigen (09/12/2022) ???Hepatitis B e Antigen - NEGATIVE Opiate Screen Urine (09/07/2022) ???Opiate Screen, Urine - NONE DETECTED Troponin T, High Sensitivity (09/11/2022) ???High Sensitivity Troponin (HSTnT) - 23 ng/L TSH with T4 Reflex (Adults Only) (09/07/2022) ???TSH - 4.11 uIU/mL Urinalysis w/hold for Urine Culture (09/07/2022) ???Appear/Color, Urine - YELLOW???Specific Albert, Urine - 1.041???pH, Urine - 6.0???Albumin, Urine - 1+???Glucose, Urine - 4+???Ketones, Urine - 1+???Bilirubin, Urine - NEGATIVE???Hemoglobin, Urine- NEGATIVE???Nitrite, Urine - NEGATIVE???Leukocyte, Urine - NEGATIVE???Urobilinogen - 2 mg/dL???WBC's, Urine - NONE SEEN? ?RBC's, Urine - NONE SEEN? ?Squamous Epith - <1 /HPF? ?Mucus - MODERATE? ?Hold Urine Culture - Testing available 48 hours from time of collection. Immunizations This Visit Given Vaccine Date tetanus/diphtheria/pertussis, acel(Tdap) 09/07/2022 Allergies (NKA means No Known Allergies) No Known Medication Allergies Other Environmental Allergy Problems Active Problems??(20) Abdominal aortic ectasia?? Calcification of abdominal aorta?? Chronic low back pain?? Chronic obstructive pulmonary disease?? Chronic pain syndrome?? Compression fracture of spine?? Diabetes mellitus, type II?? Duodenal ulcer?? Gastritis?? GI bleed?? History of lung cancer?? Homelessness?? HTN (hypertension)?? Hyperlipidemia?? Major depression, recurrent?? OA (osteoarthritis)?? Opiate dependence?? Schizoaffective disorder?? Smoking?? Substance abuse in remission?? Education Materials Below is the list of Educational Leaflet Providered with your Discharge Instructions. Valuables and Belongings I fully understand and agree that [facility] accepts no responsibility for all my [...] to send valuables and belongings home. ?? Safe envelope number: [id number] Review of Valuable and Belonging List: With patient, With witness Date for Pt to Sign Valuables/Belongings: 09/11/22 12:48:00 ?? Other Discharge Information ? Pulmonary Rehab Status?? Pulmonary Rehab Discharge Status?? Respiratory Rate: 16 br/min ? Common Emergency Awareness Tips IS [...] are strongly encouraged to quit. Please call [facility] at [phone] or [phone] ([phone]) or log in to [email or web address] for referrals to smoking cessation programs. ?? 796 Suicide & Crisis Lifeline is available 17/11 if you or someone you know needs to find a reason to keep living. By calling 178 you'll be connected to a skilled, trained counselor at a crisis center in your area. INPATIENT DISCHARGE INSTRUCTIONS SIGNATURE PAGE KYLE REGALADO Location:[facility] Registration Date and Time:09/06/2022 23:25 EDT Primary Care Physician: Terrell Long DO, Attending Physician: Bruna DOWNING, Yanet Rodgers, I KYLE REGALADO, have received the above patient education materials/instructions and have verbalizedunderstanding. If ambulance or transport services are being used I further acknowledge being given a choice of service. ?? If you need to contact me, please call me at this number: . Patient/Business Relations Manager Name: Patient/Business Relations Manager Signature: Relationship to Patient: Witness Name/Signature: Date: * Event Display: Discharge/Transfer Note Hospital Authored Date: [id number] * Ruth Ann Salas RN: PERFORM Event Display: Patient Education/Instruction Authored Date: [id number] Inpatient Adult Discharge Instructions [address] [address] Name: KYLE REGALADO : 1960 Visit: 09/06/2022 23:25:00 Current Date: 09/18/2022 10:44 Account: [id number] Inpatient Adult Discharge Instructions We would like [...] and their families. Surveys are administered by [employer] ?? If further treatment with your primary care physician or another doctor is recommended, it is important for you to keep the appointment. Call your primary care physician or return to the Emergency Department immediately if your condition worsens, fails to improve, or new symptoms develop. If you need to find a doctor, you can call [facility] for a referral at [phone] or toll free at [phone] ([phone]) or log in to [email or web address].. ?? You can view and manage your care through the patient portal or by using a health care gina of your choosing. [employer] is a website that allows you to securely view your medical information including your hospital discharge summary, office visit summaries, medications and follow-up visits. You can also request appointments, renew medications, and request access to your medical information using a health care gina of your choosing, or just ask a question. You can enroll at [email or web address] or register during your next office visit. You have been discharged from [facility], Patient Care Unit: S64. If you have any questions regarding these instructions after you leave, please call us and we will be happy to assist you. [facility] Your Care Team Attending Physician Johnathan Cunningham DO Discharging Providers Bruna DOWNING, Yanet Rodgers Reason for Your Visit SI Your Diagnosis Suicidal ideation Major depression, recurrent Diabetes mellitus, type II HTN (hypertension) Chronic obstructive pulmonary disease Anxiety Cocaine-induced anxiety disorder Opiate dependence Tests Performed Below is a partial list of the tests performed during your hospitalization. You may have had other tests and procedures not included in this list. Please discuss all test results with your provider. Acetaminophen Level Alcohol Level AMPHETAMINE SCREEN, URINE Aspirin Level BARBITURATES SCREEN, URINE Basic Metabolic Panel BENZODIAZEPINE SCREEN, URINE CANNABINOID SCREEN, URINE CBC w/ Differential Cocaine Urine Screen COVID-19 (Novel Coronavirus), Rapid PCR CPK Total Only Fentanyl Screen, Urine FREE T4 GLUCOSE POC Hepatitis B Core Ab Hepatitis B Surface Antigen Hepatitis Be Ab Hepatitis Be Antigen Opiate Screen Urine Troponin T, High Sensitivity TSH with T4 Reflex (Adults Only) Urinalysis w/hold for Urine Culture CXR Portable Primary Care Provider Terrell Long DO Advance Directive . Discharge Vitals Temperature: 97.2 DegF Height: 175 cm Pulse Rate: 80 bpm Weight: 84.3 kg Respiratory Rate: 18 br/min Body Mass Index:??27.53 kg/m2??High Systolic Blood Pressure: 118 mm Hg Body surface area: 2.02 Diastolic Blood Pressure: 73 mm Hg ?? Oxygen Saturation:??92 %??Low ?? Studies Pending All tests and labs ordered during this hospital stay have been completed unless listed below. Please discuss all pending results with your provider listed above in these instructions. ?? Add On Lab Order Hepatitis B Surface Ab Quant What to do next Instructions From Your Doctor Discharge Orders Diet:??Diabetic Diet Activity:??Ambulate with assistance 3 times a day unless otherwise specified Code Status:?? Full Resuscitation You Need to Schedule the Following Appointments Follow Up with??Ethan DO, Terrell When:??Within 1 month Where: ?? Discharge Medications FABRICIOKYLE Madden :1960 Visit Date:09/06/2022 Medications: Please continue your medications until treatment is completed or stopped by your provider. Medications not listed below should be discontinued. Discuss any questions related to medications with your provider. What How Much When Why Instructions Next Dose New HydrOXYzine (hydrOXYzine pamoate 50 mg oral capsule) 1 capsule Oral Every 6 hours as needed for Anxiety ??as needed New Insulin Glargine (Lantus Inj) 30 unit(s) Subcutaneous Injection Daily before breakfast 09/19@9am New Insulin Lispro (insulin lispro 100 units/ mL injectable solution) 6-14 units Subcutaneous Injection 3 times a day before meals before meals New Polyethylene Glycol 3350 (MiraLax Powder) 17 gram Oral Daily 09/19@9am New Sodium Biphosphate-Sodium Phosphate (Fleet Enema) 1 Each Per rectum Once as needed for Constipation as needed New Trazodone (traZODone 50 mg oral tablet) 1 tab(s) Oral Daily at Bedtime as needed for Insomnia as needed Changed Duloxetine (duloxetine 60 mg oral enteric coated capsule) 1 capsule Oral Daily in the morning 09/19@9am Changed Lisinopril (lisinopril 5 mg oral tablet) 1 tab(s) Oral Daily 09/19@9am Changed Metformin (metFORMIN 500 mg oral tablet) 1 Each Oral Twice a day 09/18@9pm Changed Metoprolol (metoprolol 25 mg oral tablet, extended release) 1 tab(s) Oral Daily HTN (hypertension) Duration: 90 Days 09/19@9am Changed Quetiapine (QUEtiapine 100 mg oral tablet) 1 tab(s) Oral Daily Schizoaffective disorder Major depression, recurrent bloodwork and appt needed ?? 09/19@9am Unchanged Albuterol/ Ipratropium (Combivent Respimat 20 mcg-100 mcg/ inh inhalation aerosol) 1 puff(s) Inhalation 4 times a day as needed for Wheezing/Shortness of Breath as needed Unchanged Atorvastatin (atorvastatin 40 mg oral tablet) 1 tab(s) Oral Daily Hyperlipidemia Duration: 90 Days 09/19@9am Unchanged Buprenorphine-Naloxone (Suboxone 2 mg-0.5 mg sublingual film) 1 Film Sublingual Daily 09/19@9am Unchanged Durable Medical Equipment (FREESTYLE FREEDOM LITE KIT) USE DIRECTED ?? Unchanged Durable Medical Equipment (Freestyle Lite Lancets) See instructions Duration: 30 Days use as directed for Type 2 Diabetes Mellitus test 2x daily ?? Unchanged Durable Medical Equipment (Freestyle Lite Test Strips) See instructions Duration: 30 Days use as directed for Type 2 Diabetes Mellitus to test 2x ??daily ?? Unchanged Durable Medical Equipment (Wheelchair) See instructions Electric wheelchair ?? DX: M17.0 (not knee replacement candidate) ?? Unchanged Fenofibrate (fenofibrate 54 mg oral tablet) 1 tab(s) Oral Daily 09/19@9am Unchanged Omeprazole (omeprazole 40 mg oral enteric coated capsule) 1 capsule Oral Daily 09/19@9am ?? What How Much When Comments Stop Taking Gabapentin (gabapentin 300 mg oral capsule) 2 capsule Oral 3 times a day Duration: 30 Days PLEASE CALL OFFICE FOR RESCHEDULE APPT. ?? Stop Taking Sucralfate (sucralfate 1 gm oral tablet) 1 tab(s) Oral 4 times a day Test Results Below is a partial list of the most recent Laboratory test results done prior to this discharge. You may have had other tests and procedures not included in this list. Please discuss all test resultswith your provider. Est Creatinine Clearance - 111.85 mL/min (09/11/2022) Acetaminophen Level (09/07/2022) ? ?Acetaminophen Level - <5 mg/L Alcohol Level (09/07/2022) ???Ethanol, Serum or Plasma - NONE DETECTED AMPHETAMINE SCREEN, URINE (09/07/2022) ???Amphetamine Screen, Urine - NONE DETECTED Aspirin Level (09/07/2022) ? ?Salicylate Level - <0.3 mg/dL BARBITURATES SCREEN, URINE (09/07/2022) ???Barbiturate Screen, Urine - NONE DETECTED Basic Metabolic Panel (09/07/2022) ???Sodium - 130 mmol/L???Potassium - 4.2 mmol/L???Chloride - 94 mmol/L???Bicarbonate Level - 23 mmol/L???Anion Gap - 13???Glucose Level - 255 mg/dL???BUN - 17 mg/dL???Creatinine-Blood - 0.7 mg/dL???Estimated GFR Creatinine - 104 ML/MIN/1.73 M2???Calcium - 9.5 mg/dL BENZODIAZEPINE SCREEN, URINE (09/07/2022) ???Benzodiazepine Screen, Urine - NONE DETECTED CANNABINOID SCREEN, URINE (09/07/2022) ???Cannabinoid Screen, Urine - NONE DETECTED CBC w/ Differential (09/07/2022) ???WBC - 8.4 k/mm3???RBC - 4.70 m/mm3???Hgb - 12.6 Gm/dL???Hct - 38.6 %???MCV - 82.1 femtoliters???MCH - 26.8 pg???MCHC - 32.6 g/dL???Platelet Count - 262 k/mm3???RDW-SD - 46.3 femtoliters???MPV - 9.6 femtoliters???Nucleated RBC (Automated) - 0.0 #/100 WBC'S???Abs. NRBC - 0.0 k/mm3???Abs. Neut - 5.9 k/mm3???Abs. Lymph - 1.4 k/mm3???Abs. Red [place]ow - 1.0 k/mm3???Abs. Eo - 0.0 k/mm3???Abs. Baso - 0.1 k/mm3???Neut % - 70.0 %???Lymph % - 17.0 %???Red [place]ow % - 11.3 %???Eos % - 0.5 %???Baso % - 0.6 %???Imm Gran - 0.6 %???Abs. Imm Gran - 0.1 k/mm3 Cocaine Urine Screen (09/07/2022) ???Cocaine Metabolite Screen, Urine - POSITIVE COVID-19 (Novel Coronavirus), Rapid PCR (09/07/2022) ???COVID-19 by RT-PCR - NEGATIVE CPK Total Only (09/07/2022) ???CK, Total - 326 units/L Fentanyl Screen, Urine (09/07/2022) ???Fentanyl Screen, Urine Result - NONE DETECTED FREE T4 (09/07/2022) ???Free T4 - 1.07 ng/dL GLUCOSE POC (09/18/2022) ???Glucose, POC - 179 mg/dL Hepatitis B Core Ab (09/12/2022) ???Hepatitis B Core Ab, Total - POSITIVE Hepatitis B Surface Antigen (09/12/2022) ???Hepatitis B Surface Antigen - NEGATIVE Hepatitis Be Ab (09/12/2022) ???Hepatitis B e Ab - NEGATIVE Hepatitis Be Antigen (09/12/2022) ???Hepatitis B e Antigen - NEGATIVE Opiate Screen Urine (09/07/2022) ???Opiate Screen, Urine - NONE DETECTED Troponin T, High Sensitivity (09/11/2022) ???High Sensitivity Troponin (HSTnT) - 23 ng/L TSH with T4 Reflex (Adults Only) (09/07/2022) ???TSH - 4.11 uIU/mL Urinalysis w/hold for Urine Culture (09/07/2022) ???Appear/Color, Urine - YELLOW???Specific Albert, Urine - 1.041???pH, Urine - 6.0???Albumin, Urine - 1+???Glucose, Urine - 4+???Ketones, Urine - 1+???Bilirubin, Urine - NEGATIVE???Hemoglobin, Urine- NEGATIVE???Nitrite, Urine - NEGATIVE???Leukocyte, Urine - NEGATIVE???Urobilinogen - 2 mg/dL???WBC's, Urine - NONE SEEN? ?RBC's, Urine - NONE SEEN? ?Squamous Epith - <1 /HPF? ?Mucus - MODERATE? ?Hold Urine Culture - Testing available 48 hours from time of collection. Immunizations This Visit Given Vaccine Date tetanus/diphtheria/pertussis, acel(Tdap) 09/07/2022 Allergies (NKA means No Known Allergies) No Known Medication Allergies Other Environmental Allergy Problems Active Problems??(20) Abdominal aortic ectasia?? Calcification of abdominal aorta?? Chronic low back pain?? Chronic obstructive pulmonary disease?? Chronic pain syndrome?? Compression fracture of spine?? Diabetes mellitus, type II?? Duodenal ulcer?? Gastritis?? GI bleed?? History of lung cancer?? Homelessness?? HTN (hypertension)?? Hyperlipidemia?? Major depression, recurrent?? OA (osteoarthritis)?? Opiate dependence?? Schizoaffective disorder?? Smoking?? Substance abuse in remission?? Education Materials Below is the list of Educational Leaflet Providered with your Discharge Instructions. Valuables and Belongings I fully understand and agree that [facility] accepts no responsibility for all my [...] to send valuables and belongings home. ?? Safe envelope number: [id number] Review of Valuable and Belonging List: With patient, With witness Date for Pt to Sign Valuables/Belongings: 09/11/22 12:48:00 ?? Other Discharge Information ? Pulmonary Rehab Status?? Pulmonary Rehab Discharge Status?? Respiratory Rate: 18 br/min ? Common Emergency Awareness Tips IS [...] are strongly encouraged to quit. Please call [facility] Bloxy Link at [phone] or [phone] ([phone]) or log in to [email or web address] for referrals to smoking cessation programs. ?? 025 Suicide & Crisis Lifeline is available 17/11 if you or someone you know needs to find a reason to keep living. By calling 469 you'll be connected to a skilled, trained counselor at a crisis center in your area. INPATIENT DISCHARGE INSTRUCTIONS SIGNATURE PAGE KYLE REGALADO Location:[facility] Registration Date and Time:09/06/2022 23:25 EDT Primary Care Physician: Terrell Long DO, Attending Physician: Johnathan Cunningham DO, I KYLE REGALADO, have received the above patient education materials/instructions and have verbalizedunderstanding. If ambulance or transport services are being used I further acknowledge being given a choice of service. ?? If you need to contact me, please call me at this number: . Patient/Business Relations Manager Name: Patient/Business Relations Manager Signature: Relationship to Patient: Witness Name/Signature: Date: Portable XR Chest Views * BHSPowerscriRADHA amin S: TRANSCRIBE Curtis Carmona MD: VERIFY Event Display: Result: Authored Date: [id number] Chest Portable Reason: Cough; chest pain; history of lung cancer and partial right lower lobectomy. COMPARISON: 02/14/2021 FINDINGS: LINES AND TUBES: None. LUNGS AND PLEURA: Stable postoperative changes right chest. No consolidation or edema. No pleural effusion. No pneumothorax. HEART, MEDIASTINUM AND ANTHONY: Unchanged. No cardiomegaly. BONES AND SOFT TISSUES: No acute abnormality. IMPRESSION: No change. No acute abnormality WSN: [id number] Ordering Physician: Johnathan Cunningham Dictated By: Curtis Carmona MD Dictated Date/Time: 09/12/22 8:36 am Reviewed By: Curtis Carmona MD Signed By: Curtis Carmona MD Signed Date/Time: 09/12/22 8:36 am Transcribed By: PRASHANTH Transcribed Date/Time: 09/12/22 8:35 am Patient Care team information Care Team Personnel Name: Isa Lake RN Position: S RN Member Role: Primary Care Nurse Name: Janet Moreno LPN Position: S RN Member Role: Primary Care Nurse Name: Luis Armando Alford RN Position: S RN Member Role: Primary Care Nurse Name: Stormy Mccray RN Position: S RN Member Role: Primary Care Nurse Name: Terrell Long DO Position: [facility] Physician - Primary Care Member Role: PCP Address: Address: [address] [place] [id number]- Name: Nara Bruno RN Position: [facility] RN Supv Member Role: Primary Care Nurse Name: Edward GALVAN Attending Position: [facility] ED Medicine MD Name: Beto Sosa RN Position: [facility] ED RN W/OE and Tasks Member Role: Patient Care Provider Name: Citlaly Hoffmann Position: [facility] ED OA Charge Member Role: ED Associate Care Team Related Persons Name: NAZ WEINER
--- OUTSIDE RECORDS SUMMARY | 2023-07-31 11:55 | XMS_ITS | Continuity of Care Document ---
Author Organization [facility] Address [address] [place] [address]- Care Team Providers Care Milk Receiver Tank Truck Name Role Phone Imani AQUINO, Beatrice Carbajal Primary Care Physician Encounter [facility] Date(s): 06/06/21 - 07/06/21 [facility] [address] [place], [place] [address] Allergies, Adverse Reactions, Alerts No Known Medication Allergies Substance Reaction Severity Status Other Environmental Allergy 1 Active 1Wool Medications atorvastatin 40 mg oral tablet 1 tablet = 40 mg, By Mouth, Daily, # 90 tablet, 1 Refills, Maintenance, 11/20/20 10:30:00 EDT, Tablet, [facility] #[id number], 172, cm, 08/01/20 13:59:00 EDT, Height Start Date: 11/20/20 Stop Date: 05/19/21 Status: Ordered Combivent Respimat 20 mcg-100 mcg/inh inhalation aerosol 1 puffs, Inhalation, 4 times a day, PRN Wheezing/Shortness of Breath, # 1 each, 3 Refills, Maintenance, 06/13/20 15:39:00 EST, Aerosol, [facility]/pharmacy #[id number], Partial fill upon patient request if the prescription is for a schedule II opioid drug., 1 puff... Start Date: 06/13/20 Status: Ordered duloxetine 30 mg oral enteric coated capsule 1 capsule, By Mouth, Daily, # 90 capsule, 0 Refills, Maintenance, 02/07/21 16:12:00 EDT, [facility] #[id number], 172, cm, 08/01/20 13:59:00 EDT, Height Start Date: 02/07/21 Stop Date: 05/08/21 Status: Ordered fenofibrate 54 mg oral tablet 1 tablet = 54 mg, By Mouth, Daily, # 30 tablet, 0 Refills, Maintenance, 05/10/21 11:35:00 EST, [facility] #[id number], Partial fill upon patient request if the [...] 05/29/21 13:15:00 EST, Route to Pharmacy Electronically, [facility] #[id number], 175, cm, 02/14/21 20:23:... Start Date: 05/29/21 Stop Date: 06/28/21 Status: Ordered lisinopril 20 mg oral tablet 1, tablet, By Mouth, Daily, # 30 tablet, Refills 5, Route to Pharmacy Electronically, [facility] #[id number], 175, cm, 02/14/21 20:23:00 EDT, Height, 77.5, kg, 02/14/21 20:23:00 EDT, Dry Weight Start Date: 02/23/21 Status: Ordered MetFORMIN (Eqv-Glucophage XR) 500 mg oral tablet, extended release 2 tablet = 1,000 mg, By Mouth, 2 times a day, # 120 tablet, 3 Refills, Maintenance, 04/15/21 15:52:00 EST, [facility] #[id number], Partial fill upon patient request if the prescription is for a schedule II opioid drug., 175, cm, 02/14/21 20:23:00... Start Date: 04/15/21 Stop Date: 08/13/21 Status: Ordered metFORMIN 500 mg oral tablet, extended release 2 tablet = 1,000 mg, By Mouth, Daily, # 60 tablet, 0 Refills, Maintenance, 04/11/21 12:42:00 EST, [facility] #[id number], Partial fill upon patient request if the [...] Refills, Maintenance, 02/08/21 9:48:00 EDT, ER Tablet, [facility] #[id number], Partialfill upon patient request if the prescription is... Start Date: 02/08/21 Stop Date: 08/07/21 Status: Ordered metoprolol 25 mg oral tablet, extended release 25 mg, 1, tablet, By Mouth, Daily, # 90 tablet, Refills 0, Tot. Refills 0, Maintenance, 05/10/21 11:34:00 EST, Route to Pharmacy Electronically, [facility] #[id number], 175, cm, 02/14/21 20:23:00 EDT, Height, 77.5, kg, 02/14/21 20:23:00 EDT, Dry... Start Date: 05/10/21 Status: Ordered metoprolol 25 mg oral tablet, extended release 25 mg, 1, tablet, By Mouth, Daily, # 90 tablet, Refills 1, Tot. Refills 1, Maintenance, 10/19/20 15:29:00 EDT, Route to Pharmacy Electronically, [facility] #[id number], 172, cm, 08/01/20 13:59:00 EDT, Height Start Date: 10/19/20 Stop Date: 04/17/21 Status: Ordered omeprazole 40 mg oral enteric coated capsule 1 capsule = 40 mg, By Mouth, Daily, # 90 capsule, 0 Refills, Maintenance, 04/24/21 14:31:00 EST, ECCapsule, [facility] #[id number], Partial fill upon patient request if the prescription is for a schedule II opioid drug., 175, cm, 02/14/21 20:23:... Start Date: 04/24/21 Status: Ordered QUEtiapine 100 mg oral tablet 1, tablet, By Mouth, Daily, bloodwork and appt needed, # 30 tablet, Refills 1, Tot. Refills 1, Maintenance, 02/08/21 9:46:00 EDT, Route to Pharmacy Electronically, [facility] #[id number], 172, cm, 08/01/20 13:59:00 EDT, Height Start Date: 02/08/21 Status: Ordered QUEtiapine 100 mg oral tablet See Instructions, TAKE 1 TABLET BY MOUTH DAILY BLOODWORK AND APPOINTMENT NEEDED, # 30 tablet, Refills 0, Tot. Refills 0, 05/29/21 13:15:00 EST, Instructions Replace Required Details, Route to Pharmacy Electronically, [facility] #[id number], 175,... Start Date: 05/29/21 Status: Ordered Suboxone [...] 05/10/21 11:34:00 EST, Route to Pharmacy Electronically, [facility] #[id number], Partial fill uponpatient request if the prescription [...]
--- OUTSIDE RECORDS SUMMARY | 2023-07-31 11:55 | XMS_ITS | Continuity of Care Document ---
Author Organization [facility] Address [address] [place] [address]- Care Team Providers Care School Transportation Director Name Role Phone Glenn AQUINO, Danielle Primary Care Physician [phone] Encounter [facility] Date(s): 03/19/20 - 04/18/20 [facility] [address] [place] [address]- Allergies, Adverse Reactions, Alerts No Known Medication Allergies Substance Reaction Severity Status Other Environmental Allergy 1 Active 1Wool Medications atorvastatin 40 mg oral tablet 1 tablet = 40 mg, By Mouth, Daily, # 90 tablet, 0 Refills, Maintenance, 04/09/20 15:40:00 EST, Tablet, [facility]/pharmacy #[id number], 172, cm, 04/09/20 13:00:00 EST, Height Start Date: 04/09/20 Stop Date: 07/08/20 Status: Ordered duloxetine 30 mg oral enteric coated capsule 1 capsule, By Mouth, Daily, # 90 capsule, 0 Refills, Maintenance, 04/09/20 15:40:00 EST, [facility]/pharmacy #[id number], 172, cm, 04/09/20 13:00:00 EST, Height Start Date: 04/09/20 Stop Date: 07/08/20 Status: Ordered gabapentin 300 mg oral capsule 1, capsule, By Mouth, 3 times a day, # 270 capsule, Refills 0, Tot. Refills 0, Maintenance, 04/09/20 15:39:00 EST, Route to Pharmacy Electronically, [facility]/pharmacy #[id number], 172, cm, 04/09/20 13:00:00 EST, Height Start Date: 04/09/20 Stop Date: 07/08/20 Status: Ordered lisinopril 5 mg oral tablet 5 mg, 1, tablet, By Mouth, Daily, # 90 tablet, Refills 0, Tot. Refills 0, Maintenance, 04/09/20 15:38:00 EST, Route to Pharmacy Electronically, [facility]/pharmacy #[id number], 172, cm, 04/09/20 13:00:00 EST, Height Start Date: 04/09/20 Stop Date: 07/08/20 Status: Ordered metoprolol 25 mg oral tablet, extended release 25 mg, 1, tablet, By Mouth, Daily, # 90 tablet, Refills 0, Tot. Refills 0, Maintenance, 04/09/20 15:37:00 EST, Route to Pharmacy Electronically, [facility]/pharmacy #[id number], 172, cm, 04/09/20 13:00:00 EST, Height [...] Refills, Acute07/08/20 15:41:00 EDT, 04/09/20 15:41:00 EST, [facility]/pharmacy #[id number], Partial fill upon patient requestif the [...]
--- OUTSIDE RECORDS SUMMARY | 2023-07-31 11:55 | XMS_ITS | Continuity of Care Document ---
Author Organization [facility] Address [address] [place] [address]- Care Team Providers Care Sales And Merchandising Associate Name Role Phone Glenn AQUINO, Danielle Primary Care Physician Encounter [facility] Date(s): 11/19/20 - 12/19/20 [facility] [address] [place] [address]- Encounter Diagnosis Hyperlipidemia(Discharge Diagnosis) - 11/19/20 Allergies, Adverse Reactions, Alerts No Known Medication Allergies Substance Reaction Severity Status Other Environmental Allergy 1 Active 1Wool Medications atorvastatin 40 mg oral tablet 1 tablet = 40 mg, By Mouth, Daily, # 90 tablet, 1 Refills, Maintenance, 11/20/20 10:30:00 EDT, Tablet, [facility] #[id number], 172, cm, 08/01/20 13:59:00 EDT, Height Start Date: 11/20/20 Stop Date: 05/19/21 Status: Ordered Combivent Respimat 20 mcg-100 mcg/inh inhalation aerosol 1 puffs, Inhalation, 4 times a day, PRN Wheezing/Shortness of Breath, # 1 each, 3 Refills, Maintenance, 06/13/20 15:39:00 EST, Aerosol, [facility]/pharmacy #[id number], Partial fill upon patient request if the prescription is for a schedule II opioid drug., 1 puff... Start Date: 06/13/20 Status: Ordered duloxetine 30 mg oral enteric coated capsule 1 capsule, By Mouth, Daily, # 90 capsule, 0 Refills, Maintenance, 11/09/20 12:46:00 EDT, [facility] #[id number], 172, cm, 08/01/20 13:59:00 EDT, Height Start Date: 11/09/20 Stop Date: 02/07/21 Status: Ordered gabapentin 300 mg oral capsule 600 mg, 2, capsule, By Mouth, 3 times a day, PLEASE CALL OFFICE FOR RESCHEDULE APPT., # 180 capsule, Refills 2, Tot. Refills 2, Maintenance, 12/11/20 15:07:00 EDT, Route to Pharmacy Electronically, [facility] #[id number], 172, cm, 08/01/20 13:59:... Start Date: 12/11/20 Stop Date: 03/11/21 Status: Ordered lisinopril 20 mg oral tablet 20 mg, 1, tablet, By Mouth, Daily, # 90 tablet, Refills 0, Tot. Refills 0, Maintenance, 11/09/20 12:46:00 EDT, Route to Pharmacy Electronically, [facility] #[id number], Partial fill upon patientrequest if the prescription is for a schedule II op... Start Date: 11/09/20 Stop Date: 02/07/21 Status: Ordered metFORMIN 750 mg oral tablet, extended release 1 tablet = 750 mg, By Mouth, 2 times a day, with food, # 180 tablet, 1 Refills, Maintenance, 07/12/20 7:44:00 EDT, ER Tablet, [facility]/pharmacy #[id number], Partial fill upon patient request if the prescriptionis for a schedule II opioid drug., 172, cm, ... Start Date: 07/12/20 Stop Date: 01/08/21 Status: Ordered metoprolol 25 mg oral tablet, extended release 25 mg, 1, tablet, By Mouth, Daily, # 90 tablet, Refills 1, Tot. Refills 1, Maintenance, 10/19/20 15:29:00 EDT, Route to Pharmacy Electronically, [facility] #[id number], 172, cm, 08/01/20 13:59:00 EDT, Height Start [...] 10/12/20 14:18:00 EDT, Route to Pharmacy Electronically, [facility] #[id number], 172, cm, 08/01/20 13:59:00 EDT, Height Start [...] Dates Health Status Cl inical Service Informant Hyperlipidemia Discharge Diagnosis 11/19/20 Social History Social History Type Response Smoking Status 10 or more cigarette s (1/2 pack or more)/day in last 30 days; Other: about 2.5 ppd; entered on: 02/28/19 Sex
--- OUTSIDE RECORDS SUMMARY | 2023-07-31 11:55 | XMS_ITS | Continuity of Care Document ---
Author Organization [facility] Address [address] [address]- Care Team Providers Care Sinter Feeder Name Role Phone Glenn AQUINO, Danielle Primary Care Physician [phone] Encounter [facility] AC[facility] R [id number] Date(s): 08/17/20 - 09/16/20 [facility] [address] [address]- Attending Physician: Colt Kitchen Admitting Physician: AdmColt edmondson Referring Physician: Admtr, Ar8 Allergies, Adverse Reactions, Alerts No Known Medication [...] to Pharmacy Electronically, [facility]/pharmacy #[id number], 172, cm, 07/11/20 15:26:00 EDT, Height Start [...]
--- OUTSIDE RECORDS SUMMARY | 2023-07-31 11:55 | XMS_ITS | Continuity of Care Document ---
Author Organization [facility] Address [address] [place] [address]- Care Team Providers Care Cut Roll Machine Operator Name Role Phone Lucho Cardona DO Primary Care Physician Encounter [facility] ACCT R [id number] Date(s): 11/28/19 - 12/05/19 [facility] [address] [place] [address]- [facility] Attending Physician: Lucho Cardona DO Allergies, Adverse [...] 1 Refills, Maintenance, 11/10/19 15:07:00 EDT, Tablet, [facility]/pharmacy #[id number], 172, cm, 06/30/19 7:54:00 EST, Height Start Date: 11/10/19 Status: Ordered duloxetine 30 mg oral enteric coated capsule 1 capsule, By Mouth, Daily, # 30 capsule, 3 Refills, Maintenance, 10/17/19 11:08:00 EDT, [id number], 172, cm, 06/30/19 7:54:00 EST, Height Start Date: 10/17/19 Status: Ordered gabapentin 300 mg oral capsule 1, capsule, By Mouth, 3 times a day, # 90 capsule, Refills 2, Tot. Refills 0, Maintenance, 10/16/2010:08:00 EDT, Route to Pharmacy Electronically, [facility], 172, cm, 06/30/19 7:54:00 EST, Height Start Date: 10/17/19 Status: Ordered lisinopril 5 mg oral tablet 5 mg, 1, tablet, By Mouth, Daily, # 90 tablet, Refills 0, Tot. Refills 0, Maintenance, 11/10/19 15:07:00 EDT, Route to Pharmacy Electronically, [facility]/pharmacy #[id number], 172, cm, 06/30/19 7:54:00 EST, Height Start Date: 11/10/19 Status: Ordered meloxicam 15 mg oral tablet See Instructions, TAKE 1 TABLET BY MOUTH EVERY DAY, # 30 tablet, 3 Refills, Maintenance, [facility], 172, cm, 06/30/19 7:54:00 EST, Height Start Date: 09/22/19 Status: Ordered meloxicam 15 mg oral tablet See Instructions, TAKE 1 TABLET BY MOUTH EVERY DAY, # 30 tablet, 3 Refills, Maintenance, [facility] 53636, 172, cm, 06/30/19 7:54:00 EST, Height Start Date: 09/22/19 Status: Ordered metoprolol 25 mg oral tablet, extended release 50 mg, 2, tablet, By Mouth, Daily, # 180 tablet, Refills 0, Tot. Refills 0, Maintenance, 11/10/19 15:07:00 EDT, Route to Pharmacy Electronically, [facility]/pharmacy #[id number], 172, cm, 06/30/19 7:54:00 EST, [...] 11/10/19 15:07:00 EDT, Route to Pharmacy Electronically, [facility]/pharmacy #[id number], 172, cm, 06/30/19 7:54:00 EST, [...]
--- OUTSIDE RECORDS SUMMARY | 2023-07-31 11:55 | XMS_ITS | Continuity of Care Document ---
Author Organization [facility] Pione[employer] [place] thompson Address [address] [place] [address]- Care Team Providers Care Rig Mechanic Name Role Phone Lucho Cardona DO Primary Care Physician [phone] [place] [facility] [place] [facility] [address] [place] [address]- [facility] Attending Physician: AdmDwight [email or web address] Admitting Physician: Admtr, Colt Referring Physician: Admtr, Ar8 Allergies, Adverse Reactions, [...] 5 Refills, Maintenance, 05/09/19 10:34:00 EST, Tablet, [facility]/pharmacy #[id number], 172, cm, 05/09/19 10:09:00 EST, Height Start Date: 05/09/19 Status: Ordered duloxetine 30 mg oral enteric coated capsule 1 capsule, By Mouth, Daily, # 30 capsule, 3 Refills, Maintenance, 06/20/19 7:54:00 EST, [id number], 172, cm, 06/02/19 8:30:00 EST, Height Start Date: 06/20/19 Status: Ordered gabapentin 300 mg oral capsule 1, capsule, By Mouth, 3 times a day, # 90 capsule, Refills 2, Tot. Refills 0, Maintenance, 207:54:00 EST, Route to Pharmacy Electronically, [id number], 172, cm, 06/02/19 8:30:00 EST, Height Start Date: 06/20/19 Status: Ordered lisinopril 5 mg oral tablet 5 mg, 1, tablet, By Mouth, Daily, # 30 tablet, Refills 5, Tot. Refills 5, Maintenance, 05/09/19 10:34:00 EST, [id number], cm, 05/09/19 10:09:00 EST, Height Start Date: 05/09/19 Status: Ordered meloxicam 15 mg oral tablet 1 tablet = 15 mg, By Mouth, Daily, # 30 tablet, 0 Refills, Maintenance, 06/30/19 8:23:00 EST, Tablet, [facility]/pharmacy #[id number], 172, cm, 06/30/19 7:54:00 EST, Height Start Date: 06/30/19 Status: Ordered metoprolol 25 mg oral tablet, extended release 50 mg, 2, tablet, By Mouth, Daily, # 30 tablet, Refills 5, Tot. Refills 5, Maintenance, 05/09/19 10:34:00 EST, [id number], 172, cm, 05/09/19 10:09:00 EST, Height Start Date: 05/09/19 Status: Ordered pantoprazole 40 mg oral delayed release tablet 1 tablet = 40 mg, By Mouth, Daily, 0 Refills, Maintenance, 07/22/19 13:19:00 EDT Start Date: 07/22/19 Stop Date: 08/21/19 Status: Ordered QUEtiapine 100 mg oral tablet 1, tablet, By Mouth, Daily, # 30 tablet, Refills 1, Tot. Refills 0, Maintenance, 06/20/19 7:54:00 EST, Route to Pharmacy Electronically, [id number], 172, cm, 06/02/19 8:30:00 EST, Height Start [...]
--- OUTSIDE RECORDS SUMMARY | 2023-07-31 11:56 | XMS_ITS | Continuity of Care Document ---
Author Organization [facility] Address [address] [place] [address]- Care Team Providers Care Rug Touch Up Painter Name Role Phone Glenn AQUINO, Danielle Primary Care Physician [phone] Encounter [facility] [place] Date(s): 05/17/20 - 05/24/20 [facility] [address] [place] [address]- Encounter Diagnosis Diabetes mellitus, type II(Discharge Diagnosis) - 05/17/20 Major depression, recurrent(Discharge Diagnosis) - 05/18/20 Schizoaffective disorder(Discharge Diagnosis) - 05/18/20 OA (osteoarthritis)(Discharge Diagnosis) - 05/18/20 Smoking(Discharge Diagnosis) - 05/18/20 History of lung cancer(Discharge Diagnosis) - 05/18/20 HTN (hypertension)(Discharge Diagnosis) - 05/18/20 Hyperlipidemia(Discharge Diagnosis) - 05/18/20 Hyponatremia(Discharge Diagnosis) - 05/18/20 Attending Physician: Danielle Elizabeth NP Allergies, Adverse Reactions, Alerts No Known Medication Allergies Substance Reaction Severity Status Other Environmental Allergy 1 Active 1Wool Medications atorvastatin 40 mg oral tablet 1 tablet = 40 mg, By Mouth, Daily, # 90 tablet, 1 Refills, Maintenance, 05/24/20 10:30:00 EST, [facility]t, [id number], 172, cm, 05/17/20 13:12:00 EST, Height Start Date: 05/24/20 Stop Date: 11/20/20 Status: Ordered duloxetine 30 mg oral enteric [...] 04/09/20 15:39:00 EST, [id number], cm, 04/09/20 13:00:00 EST, Height Start Date: 04/09/20 Stop Date: 07/08/20 Status: Ordered lisinopril 5 mg oral tablet 5 mg, 1, tablet, By Mouth, Daily, # 90 tablet, Refills 0, Tot. Refills 0, Maintenance, 04/09/20 15:38:00 EST, [id number] 172, cm, 04/09/20 13:00:00 EST, Height Start Date: 04/09/20 Stop Date: 07/08/20 Status: Ordered metFORMIN 750 mg oral tablet, extended release 1 tablet = 750 mg, By Mouth, Daily, with evening meal, # 90 tablet, 1 Refills, Maintenance, 05/18/20 11:14:00 EST, ER Tablet, [id number] Partial fill upon patient request if the prescriptionis for a schedule II opioid drug., 172, cm, ... Start Date: 05/18/20 Stop Date: 11/14/20 Status: Ordered metoprolol 25 mg oral tablet, extended release 25 mg, 1, tablet, By Mouth, Daily, # 90 tablet, Refills 0, Tot. Refills 0, Maintenance, 04/09/20 15:37:00 EST, [id number], 172, cm, 04/09/20 13:00:00 EST, Height [...] 04/09/20 15:39:00 EST, Route to Pharmacy Electronically, [facility]/pharmacy #[id number], 172, cm, 04/09/20 13:00:00 EST, Height [...] Refills, Acute07/08/20 15:41:00 EDT, 04/09/20 15:41:00 EST, [facility]/pharmacy #[id number], Partial fill upon patient requestif [...] Gastritis(Confirmed) Active History of lung cancer(Confirmed) Active Hyperlipidemia(Confirmed) Active HTN (hypertension)(Confirmed) Active OA (osteoarthritis)(Confirmed) Active Major depression, recurrent(Confirmed) Active Schizoaffective disorder(Confirmed) Active Smoking(Confirmed) Active Diabetes mellitus, type II(Confirmed) Active Duodenal ulcer(Confirmed) Active Diagnosis Diagnosis Type Effective Dates Health Status Clinical Service Informant Diabetes mellitus, type II Discharge Diagnosis 05/17/20 Major depression, recurrent Discharge Diagnosis 05/18/20 Schizoaffective disorder Discharge Diagnosis 05/18/20 OA (osteoarthritis) Discharge Diagnosis 05/18/20 Smoking Discharge Diagnosis 05/18/20 History of lung cancer Discharge Diagnosis 05/18/20 HTN (hypertension) Discharge Diagnosis 05/18/20 Hyperlipidemia Discharge Diagnosis 05/18/20 Hyponatremia Discharge Diagnosis 05/18/20 Vital Signs Most recent to oldest [Reference Range]: 1 Height 172 cm (1/21/21 1:12 PM) Social History Social History Type Response Smoking Status 10 or more cigarette s (1/2 pack or more)/day in last 30 days; Other: about 2.5 ppd; entered on: 02/28/19 Sex
--- OUTSIDE RECORDS SUMMARY | 2023-07-31 11:56 | XMS_ITS | Continuity of Care Document ---
Author Organization [facility] Address [address] [place] [address]- Care Team Providers Care Inorganic Chemistry Teacher Name Role Phone Glenn AQUINO, Danielle Primary Care Physician [place] [facility] [place]20 [facility] [address] [place] [address]- Attending Physician: Danielle Elizabeth NP Allergies, Adverse Reactions, Alerts No Known Medication Allergies Substance Reaction Severity Status Other Environmental Allergy 1 Active 1Wool Medications atorvastatin 40 mg oral tablet 1 tablet = 40 mg, By Mouth, Daily, # 90 tablet, 1 Refills, Maintenance, 05/24/20 10:30:00 EST, Tablet, [facility]/pharmacy #[id number], 172, cm, 05/17/20 13:12:00 EST, Height Start Date: 05/24/20 Stop Date: 11/20/20 Status: Ordered duloxetine 30 mg oral enteric coated capsule 1 capsule, By Mouth, Daily, # 90 capsule, 0 Refills, Maintenance, 04/09/20 15:40:00 EST, [facility]/pharmacy #[id number], 172, cm, 04/09/20 13:00:00 EST, Height Start Date: 04/09/20 Stop Date: 07/08/20 Status: Ordered gabapentin 300 mg oral capsule 1, capsule, By Mouth, 3 times a day, # 270 capsule, Refills 0, Tot. Refills 0, Maintenance, 04/09/20 15:39:00 EST, Route to Pharmacy Electronically, [facility]/pharmacy #[id number], 172, cm, 04/09/20 13:00:00 EST, Height Start Date: 04/09/20 Stop Date: 07/08/20 Status: Ordered lisinopril 5 mg oral tablet 5 mg, 1, tablet, By Mouth, Daily, # 90 tablet, Refills 0, Tot. Refills 0, Maintenance, 04/09/20 15:38:00 EST, Route to Pharmacy Electronically, [facility]/pharmacy #[id number], 172, cm, 04/09/20 13:00:00 EST, Height Start Date: 04/09/20 Stop Date: 07/08/20 Status: Ordered metFORMIN 750 mg oral tablet, extended release 1 tablet = 750 mg, By Mouth, Daily, with evening meal, # 90 tablet, 1 Refills, Maintenance, 05/18/20 11:14:00 EST, ER Tablet, [facility]/pharmacy #[id number], Partial fill upon patient request if the prescriptionis for a schedule II opioid drug., 172, cm, ... Start Date: 05/18/20 Stop Date: 11/14/20 Status: Ordered metoprolol 25 mg oral tablet, extended release 25 mg, 1, tablet, By Mouth, Daily, # 90 tablet, Refills 0, Tot. Refills 0, Maintenance, 04/09/20 15:37:00 EST, [id number], cm, 04/09/20 13:00:00 EST, [...] 04/09/20 15:39:00 EST, [id number], cm, 04/09/20 13:00:00 EST, [...] 15:41:00 EDT, 04/09/20 15:41:00 EST, [facility]/pharmacy #[id number], Partial fill upon patient requestif the prescription [...] mellitus, type II(Confirmed) Active Duodenal ulcer(Confirmed) Active Vital Signs Most recent to oldest [Reference Range]: 1 Height 172 cm (05/10/20 1:58 PM) Social History Social History Type Response Smoking Status 10 or more cigarette s (1/2 pack or more)/day in last 30 days; Other: about 2.5 ppd; entered on: 02/28/19 Sex
--- OUTSIDE RECORDS SUMMARY | 2023-07-31 11:56 | XMS_ITS | Continuity of Care Document ---
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 Refills 1, Maintenance, 07/11/20 15:12:00 EDT, Route to Pharmacy Electronically, [facility]/pharmacy #[id number], Partial [...] 07/16/20 12:36:00 EDT, Route to Pharmacy Electronically, [facility]/pharmacy #[id number], 172, cm, 07/11/20 15:26:00 EDT, Height [...] 07/16/20 12:36:00 EDT, Route to Pharmacy Electronically, [facility]/pharmacy #[id number], 172, cm, 07/11/20 15:26:00 EDT, Height [...]
--- OUTSIDE RECORDS SUMMARY | 2023-07-31 11:56 | XMS_ITS | Continuity of Care Document ---
Author Organization [facility] Address [address] [place] [address]- Care Team Providers Care Business Process Representative Name Role Phone Glenn AQUINO, Danielle Primary Care Physician [place] [facility] [place] 02/01/21 - 03/03/21 [facility] [address] [place] [address]- Allergies, Adverse Reactions, Alerts No Known Medication Allergies Substance Reaction Severity Status Other Environmental Allergy 1 Active 1Wool Medications atorvastatin 40 mg oral tablet 1 tablet = 40 mg, By Mouth, Daily, # 90 tablet, 1 Refills, Maintenance, 11/20/20 10:30:00 EDT, Tablet, [facility] #[id number], 172, cm, 08/01/20 13:59:00 EDT, Height Start Date: 11/20/20 Stop Date: 05/19/21 Status: Ordered Combivent Respimat 20 mcg-100 mcg/inh inhalation aerosol 1 puffs, Inhalation, 4 times a day, PRN Wheezing/Shortness of Breath, # 1 each, 3 Refills, Maintenance, 06/13/20 15:39:00 EST, [facility]erosol, [id number], Partial fill upon patient request if the prescription is for a schedule II opioid drug., 1 puff... Start Date: 06/13/20 Status: Ordered duloxetine 30 mg oral enteric coated capsule 1 capsule, By Mouth, Daily, # 90 capsule, 0 Refills, Maintenance, 02/07/21 16:12:00 EDT, [facility] #[id number], 172, cm, 08/01/20 13:59:00 EDT, Height Start Date: 02/07/21 Stop Date: 05/08/21 Status: Ordered gabapentin 300 mg oral capsule 600 mg, 2, capsule, By Mouth, 3 times a day, PLEASE CALL OFFICE FOR RESCHEDULE APPT., # 180 capsule, Refills 2, Tot. Refills 2, Maintenance, 12/11/20 15:07:00 EDT, Route to Pharmacy Electronically, [facility] #[id number], 172, cm, 08/01/20 13:59:... Start Date: 12/11/20 Stop Date: 03/11/21 Status: Ordered lisinopril 20 mg oral tablet 1, tablet, By Mouth, Daily, # 30 tablet, Refills 5, Route to Pharmacy Electronically, [facility] #[id number], 175, cm, 02/14/21 20:23:00 EDT, Height, 77.5, kg, 02/14/21 20:23:00 EDT, Dry Weight Start Date: 02/23/21 Status: Ordered metFORMIN 750 mg oral tablet, extended release 1 tablet = 750 mg, By Mouth, 2 times a day, Call for appt SWAPNIL before next refill with food, # 60 tablet, 1 Refills, Maintenance, 02/08/21 9:48:00 EDT, ER Tablet, [facility] #[id number], Partialfill upon patient request if the prescription is... Start Date: 02/08/21 Stop Date: 08/07/21 Status: Ordered metoprolol 25 mg oral tablet, extended release 25 mg, 1, tablet, By Mouth, Daily, # 90 tablet, Refills 1, Tot. Refills 1, Maintenance, 10/19/20 15:29:00 EDT, Route to Pharmacy Electronically, [facility] #[id number], 172, cm, 08/01/20 13:59:00 EDT, Height Start [...] 02/08/21 9:46:00 EDT, Route to Pharmacy Electronically, [facility] #[id number], 172, cm, 08/01/20 13:59:00 EDT, Height Start Date: 02/08/21 Status: Ordered QUEtiapine 100 mg oral tablet See Instructions, TAKE 1 TABLET BY MOUTH DAILY BLOODWORK AND APPOINTMENT NEEDED, # 30 tablet, Refills 0, Instructions Replace Required Details, Route to Pharmacy Electronically, [facility] #[id number], 172, cm, 08/01/20 13:59:00 EDT, Height Start [...]
--- OUTSIDE RECORDS SUMMARY | 2023-07-31 11:56 | XMS_ITS | Continuity of Care Document ---
Author Organization [facility] Address [address] [place] [address]- Care Team Providers Care Chief Vendor Quality Name Role Phone Glenn AQUINO, Danielle Primary Care Physician Encounter [facility] Date(s): 07/19/20 - 08/18/20 [facility] [address] [place] [address]- Allergies, Adverse Reactions, Alerts No Known Medication [...] Maintenance,07/11/20 15:14:00 EDT, Route to Pharmacy Electronically, [facility]/pharmacy #[id number], 172, cm, 07/11/20 14:49:00 EDT, Height Start Date: 07/11/20 Stop Date: 09/09/20 Status: Ordered lisinopril 20 mg oral tablet 20 mg, 1, tablet, By Mouth, Daily, # 90 tablet, Refills 1, Tot. Refills 1, Maintenance, 07/11/20 15:12:00 EDT, Route to Pharmacy Electronically, [facility]/pharmacy #[id number], Partial fill upon patient request if the prescription is for a schedule II opioid drug... Start Date: 07/11/20 Stop Date: 01/07/21 Status: Ordered metFORMIN 750 mg oral tablet, extended release 1 tablet = 750 mg, By Mouth, 2 times a day, with food, # 180 tablet, 1 Refills, Maintenance, 07/12/20 7:44:00 EDT, ER Tablet, [facility]/pharmacy #[id number], Partial fill upon patient request if the prescriptionis for a schedule II opioid drug., 172, cm, ... Start Date: 07/12/20 Stop Date: 01/08/21 Status: Ordered metoprolol 25 mg oral tablet, extended release 25 mg, 1, tablet, By Mouth, Daily, # 90 tablet, Refills 1, Tot. Refills 1, Maintenance, 07/16/20 12:36:00 EDT, Route to Pharmacy Electronically, [facility]/pharmacy #[id number], 172, cm, 07/11/20 15:26:00 EDT, [...] 07/16/20 12:36:00 EDT, Route to Pharmacy Electronically, [facility]/pharmacy #[id number], 172, cm, 07/11/20 15:26:00 EDT, [...]
--- OUTSIDE RECORDS SUMMARY | 2023-07-31 11:56 | XMS_ITS | Continuity of Care Document ---
Author Organization [facility] [employer] [place] thompson Address [address] [place] [address]- Care Team Providers Care Efficiency Clerk Name Role Phone Lucho Cardona DO Primary Care Physician [phone] [place] [facility] 05[place] [facility] [address] [place] [address]- [facility] Encounter Diagnosis Cellulitis of toe of left foot(Discharge Diagnosis) - 05/19/19 OA (osteoarthritis)(Discharge Diagnosis) - 05/19/19 Abdominal pain(Discharge Diagnosis) - 05/19/19 Elevated lipase(Discharge Diagnosis) - 05/19/19 Hyponatremia(Discharge Diagnosis) - 05/19/19 Attending Physician: Lucho Cardona DO Allergies, Adverse [...] 03/25/19 16:00:32 EST, Route to Pharmacy Electronically, [id number], [facility]/pharmacy #[id number] Start Date: 03/25/19 Status: Ordered lisinopril 5 mg oral tablet 5 mg, 1, tablet, By Mouth, Daily, # 30 tablet, Refills 5, Tot. Refills 5, Maintenance, 05/09/19 10:34:00 EST, Route to Pharmacy Electronically, [facility]/pharmacy #[id number], 172, cm, 05/09/19 10:09:00 EST, Height Start Date: 05/09/19 Status: Ordered metoprolol 25 mg oral tablet, extended release 25 mg, 1, tablet, By Mouth, Daily, # 30 tablet, Refills 5, Tot. Refills 5, Maintenance, 05/09/19 10:34:00 EST, Route to Pharmacy Electronically, [facility]/pharmacy #[id number], 172, cm, 05/09/19 10:09:00 EST, Height Start Date: 05/09/19 Status: Ordered QUEtiapine 100 mg oral tablet 100 mg, 1, tablet, By Mouth, Daily, # 30 tablet, Refills 1, Tot. Refills 1, Maintenance, 04/11/19 13:46:18 EST, Route to Pharmacy Electronically, [facility]/pharmacy #[id number], 172, cm, 04/11/19 13:08:04 EST, Height Start Date: 04/11/19 Status: Ordered Problem List Condition Effective Dates Status Health Status Inform ant HTN (hypertension)(Confirmed) Active OA (osteoarthritis)(Confirmed) Active Schizoaffective disorder(Confirmed) Active Diagnosis Diagnosis Type Effective Dates Health Status Clinical Service Informant Cellulitis of toe of left foot Discharge Diagnosis 05/19/19 OA (osteoarthritis) Discharge Diagnosis 05/19/19 Abdominal pain Discharge Diagnosis 05/19/19 Elevated lipase Discharge Diagnosis 05/19/19 Hyponatremia Discharge Diagnosis 05/19/19 Vital Signs Most recent to oldest [Reference Range]: 1 Height 172 cm (05/19/19 9:14 AM) Weight 79.1 kg (05/19/19 9:14 AM) Oxygen Saturation [94-100 %] 95 % (05/19/19 9:14 AM) Pulse Rate [55-90 bpm] 91 bpm *H* (05/19/19 9:14 AM) Body Mass Index [18.5-24.99] 26.74 *H* (05/19/19 9:14 AM) Blood Pressure [90-138/55-84 mm Hg] 118/ 70mm Hg (05/19/19 9:14 AM) Temperature [96.8-100.4 DegF] 98.1 DegF (05/19/19 9:14 AM) Blood pressure sites Arm, left (05/19/19 9:14 AM) Temperature Route Oral (05/19/19 9:14 AM) Weight Obtained Via Standing scale (05/19/19 9:14 AM) Social History Social History Type Response Smoking Status 10 or more cigarette s (1/2 pack or more)/day in last 30 days; Other: about 2.5 ppd; entered on: 02/28/19 Sex
--- OUTSIDE RECORDS SUMMARY | 2023-07-31 11:56 | XMS_ITS | Continuity of Care Document ---
Author Organization [facility] Address [address] [place] [address]- Care Team Providers Care Spike Machine Feeder Name Role Phone Glenn AQUINO, Danielle Primary Care Physician [place] [facility] [place]20 [facility] [address] [place] [address]- Encounter Diagnosis HTN (hypertension)(Discharge Diagnosis) - 10/19/20 Allergies, Adverse Reactions, Alerts No Known Medication [...] capsule, 0 Refills, Maintenance, 11/09/20 12:46:00 EDT, [facility] #[id number], 172, cm, 08/01/20 13:59:00 EDT, Height Start Date: 11/09/20 Stop Date: 02/07/21 Status: Ordered gabapentin 300 mg oral capsule 600 mg, 2, capsule, By Mouth, 3 times a day, PLEASE CALL OFFICE FOR RESCHEDULE APPT., # 180 capsule, Refills 1, Tot. Refills 1, Maintenance, 10/04/20 16:25:00 EDT, Route to Pharmacy Electronically, [facility] #[id number], 172, cm, 08/01/20 13:59:... Start Date: 10/04/20 Stop Date: 12/03/20 Status: Ordered lisinopril 20 mg oral tablet 20 mg, 1, tablet, By Mouth, Daily, # 90 tablet, Refills 0, Tot. Refills 0, Maintenance, 11/09/20 12:46:00 EDT, Route to Pharmacy Electronically, [facility] #[id number], Partial fill upon patientrequest if the prescription is for a schedule II op... Start Date: 11/09/20 Stop Date: 02/07/21 Status: Ordered metFORMIN 750 mg oral tablet, extended release 1 tablet = 750 mg, By Mouth, 2 times a day, with food, # 180 tablet, 1 Refills, Maintenance, 07/12/20 7:44:00 EDT, ER Tablet, [facility]/pharmacy #[id number], Partial fill upon patient request if the prescriptionis for a schedule II opioid drug., 172, cm, ... Start Date: 07/12/20 Stop Date: 01/08/21 Status: Ordered metoprolol 25 mg oral tablet, extended release 25 mg, 1, tablet, By Mouth, Daily, # 90 tablet, Refills 1, Tot. Refills 1, Maintenance, 10/19/20 15:29:00 EDT, Route to Pharmacy Electronically, [facility] #[id number], 172, cm, 08/01/20 13:59:00 EDT, Height Start [...] 10/12/20 14:18:00 EDT, Route to Pharmacy Electronically, [facility] #[id number], 172, cm, 08/01/20 13:59:00 EDT, Height Start [...] Dates Health Status Cl inical Service Informant HTN (hypertension) Discharge Diagnosis 10/19/20 Social History Social History Type Response Smoking Status 10 or more cigarette s (1/2 pack or more)/day in last 30 days; Other: about 2.5 ppd; entered on: 02/28/19 Sex
--- OUTSIDE RECORDS SUMMARY | 2023-07-31 11:56 | XMS_ITS | Continuity of Care Document ---
Author Organization [facility] ter Address [address] [place] [id number]- Care Team Providers Care Evening Or Night Nurse Supervisor Name Role Phone Glenn AQUINO, Danielle Primary Care Physician Encounter [facility] [id number] Date(s): 02/14/21 - 02/15/[address] [address]- Discharge Disposition: A-D/C Walkout Attending Physician: Not on Staff, Attending MD Admitting Physician: Not on Staff, Admitting MD Referring Physician: Not on Staff, Referring MD Allergies, Adverse Reactions, Alerts No Known Medication Allergies Substance Reaction Severity Status Other Environmental Allergy 1 Active 1Wool Medications atorvastatin 40 mg oral tablet 1 tablet = 40 mg, By Mouth, Daily, # 90 tablet, 1 Refills, Maintenance, 11/20/20 10:30:00 EDT, Tablet, [facility] #[id number], 172, cm, 08/01/20 13:59:00 EDT, Height Start Date: 11/20/20 Stop Date: 05/19/21 Status: Ordered Combivent Respimat 20 mcg-100 mcg/inh inhalation aerosol 1 puffs, Inhalation, 4 times a day, PRN Wheezing/Shortness of Breath, # 1 each, 3 Refills, Maintenance, 06/13/20 15:39:00 EST, Aerosol, [id number], Partial fill upon patient request if the prescription is for a schedule II opioid drug., 1 puff... Start Date: 06/13/20 Status: Ordered duloxetine 30 mg oral enteric coated capsule 1 capsule, By Mouth, Daily, # 90 capsule, 0 Refills, Maintenance, 02/07/21 16:12:00 EDT, [facility] #[id number], 172, cm, 08/01/20 13:59:00 EDT, Height Start Date: 02/07/21 Stop Date: 05/08/21 Status: Ordered gabapentin 300 mg oral capsule 600 mg, 2, capsule, By Mouth, 3 times a day, PLEASE CALL OFFICE FOR RESCHEDULE APPT., # 180 capsule, Refills 2, Tot. Refills 2, Maintenance, 12/11/20 15:07:00 EDT, Route to Pharmacy Electronically, [facility] #[id number], 172, cm, 08/01/20 13:59:... Start Date: 12/11/20 Stop Date: 03/11/21 Status: Ordered lisinopril 20 mg oral tablet 20 mg, 1, tablet, By Mouth, Daily, # 30 tablet, Refills 0, Tot. Refills 0, Maintenance, 01/11/21 16:12:00 EDT, Route to Pharmacy Electronically, [facility] #[id number], Partial fill upon patientrequest if the prescription is for a schedule II op... Start Date: 01/11/21 Stop Date: 04/11/21 Status: Ordered metFORMIN 750 mg oral tablet, extended release 1 tablet = 750 mg, By Mouth, 2 times a day, Call for appt SWAPNIL before next refill with food, # 60 tablet, 1 Refills, Maintenance, 02/08/21 9:48:00 EDT, ER Tablet, [facility] #[id number], Partialfill upon patient request if the prescription is... Start Date: 02/08/21 Stop Date: 08/07/21 Status: Ordered metoprolol 25 mg oral tablet, extended release 25 mg, 1, tablet, By Mouth, Daily, # 90 tablet, Refills 1, Tot. Refills 1, Maintenance, 10/19/20 15:29:00 EDT, Route to Pharmacy Electronically, [facility] #[id number], 172, cm, 08/01/20 13:59:00 EDT, Height Start [...] 02/08/21 9:46:00 EDT, Route to Pharmacy Electronically, [facility] #[id number], 172, cm, 08/01/20 13:59:00 EDT, Height Start Date: 02/08/21 Status: Ordered QUEtiapine 100 mg oral tablet See Instructions, TAKE 1 TABLET BY MOUTH DAILY BLOODWORK AND APPOINTMENT NEEDED, # 30 tablet, Refills 0, Instructions Replace Required Details, Route to Pharmacy Electronically, [facility] #[id number], 172, cm, 08/01/20 13:59:00 EDT, Height Start [...] mellitus, type II(Confirmed) Active Duodenal ulcer(Confirmed) Active Results Radiology Reports * Exam Date Time Procedure Performing Provider Status 02/14/21 9:52 PM Chest Portable Mando Fink (Verified) Notes: (Chest Portable) Reason For Exam: Cough RESULT: Chest Portable Chest Portable HX OF PRESENT ILLNESS: RUQ abd pain and diarrhea x 2 weeks. Reports a solid while colored BM today. Vomited 3-4 days ago. Also reports intermittent left sided shooting pain radiating to left shoulder; Reason: Cough; Clinical Question(s): Pneumonia COMPARISON: CT 08/15/2020 FINDINGS: LINES AND TUBES: None. LUNGS AND PLEURA: Volume loss and postsurgical change in the right hemithorax, otherwise clear lungs. No pleural effusion. No pneumothorax. HEART, MEDIASTINUM AND ANTHONY: Heart is normal in size. Normal mediastinal and hilar contour. BONES AND SOFT TISSUES: No acute abnormality. IMPRESSION: No evidence of acute abnormality. WSN: [id number] Ordering Physician: Hector Kinsey MD Dictated By: Saroj Bliss MD Dictated Date/Time: 02/14/21 9:58 pm Reviewed By: Saroj Bliss MD Signed By: Saroj Bliss MD Signed Date/Time: 02/14/21 9:58 pm Transcribed By: PRASHANTH Transcribed Date/Time: 02/14/21 9:57 pm Vital Signs Most recent to oldest [Reference Range]: 1 2 3 Height 175 cm (02/14/21 7:57 PM) Weight 77.5 kg (02/14/21 7:57 PM) Oxygen Saturation [94-100 %] 95 % (02/15/21 6:26 AM) 96 % (02/15/21 3:31 AM) 96 % (02/14/21 7:57 PM) Pulse Rate [55-90 bpm] 97 bpm *H* (02/15/21 6:26 AM) 89 bpm (02/15/21 3:31 AM) 89 bpm (02/14/21 7:57 PM) Body Mass Index [18.5-24.99] 25.31 *H* (02/14/21 7:57 PM) Blood Pressure [90-138/55-84 mm Hg] 143/89mm Hg *H* (02/15/21 6:26 AM) 127/86mm Hg (02/15/21 3:31 AM) 115/79mm Hg (02/14/21 7:57 PM) Respiratory Rate [16-30 br/min] 14 br/min *L* (02/15/21 6:26 AM) 18 br/min (02/15/21 3:31 AM) 20 br/min (02/14/21 7:57 PM) Temperature [96.8-100.4 DegF] 97.9 DegF (02/15/21 6:26 AM) 98.2 DegF (02/15/21 3:31 AM) 98.1 DegF (02/14/21 7:57 PM) Mode of Delivery (Oxygen) Room air (02/15/21 6:26 AM) Room air (02/15/21 3:31 AM) Room air (02/14/21 7:57 PM) Blood pressure sites Arm, right (02/15/21 6:26 AM) Arm, right (02/15/21 3:31 AM) Arm, left (02/14/21 7:57 PM) Temperature Route Oral (02/15/21 6:26 AM) Oral (02/15/21 3:31 AM) Oral (02/14/21 7:57 PM) Dry Weight 77.5 kg (02/14/21 7:57 PM) Social History Social History Type Response Smoking Status 10 or more cigarette s (1/2 pack or more)/day in last 30 days; Other: about 2.5 ppd; entered on: 02/28/19 Sex
--- OUTSIDE RECORDS SUMMARY | 2023-07-31 11:56 | XMS_ITS | Continuity of Care Document ---
Author Organization [facility] Address [address] [place] [address]- Care Team Providers Care Special Forces Specialist Name Role Phone Glenn AQUINO, Danielle Primary Care Physician [place] [facility] [place] 07/[place]/20 [facility] [address] [place] [address]- Allergies, Adverse Reactions, Alerts No Known Medication [...] Maintenance,07/11/20 15:14:00 EDT, Route to Pharmacy Electronically, [facility]/pharmacy #[id number], 172, cm, 07/11/20 14:49:00 EDT, Height Start Date: 07/11/20 Stop Date: 09/09/20 Status: Ordered lisinopril 20 mg oral tablet 20 mg, 1, tablet, By Mouth, Daily, # 90 tablet, Refills 1, Tot. Refills 1, Maintenance, 07/11/20 15:12:00 EDT, Route to Pharmacy Electronically, [facility]/pharmacy #[id number], Partial fill upon patient request if the prescription is for a schedule II opioid drug... Start Date: 07/11/20 Stop Date: 01/07/21 Status: Ordered metFORMIN 750 mg oral tablet, extended release 1 tablet = 750 mg, By Mouth, 2 times a day, with food, # 180 tablet, 1 Refills, Maintenance, 07/12/20 7:44:00 EDT, ER Tablet, [facility]/pharmacy #[id number], Partial fill upon patient request if the prescriptionis for a schedule II opioid drug., 172, cm, ... Start Date: 07/12/20 Stop Date: 01/08/21 Status: Ordered metoprolol 25 mg oral tablet, extended release 25 mg, 1, tablet, By Mouth, Daily, # 90 tablet, Refills 1, Tot. Refills 1, Maintenance, 07/16/20 12:36:00 EDT, Route to Pharmacy Electronically, [facility]/pharmacy #[id number], 172, cm, 07/11/20 15:26:00 [...] 07/16/20 12:36:00 EDT, Route to Pharmacy Electronically, [facility]/pharmacy #[id number], 172, cm, 07/11/20 15:26:00 [...]
--- OUTSIDE RECORDS SUMMARY | 2023-07-31 11:56 | XMS_ITS | Continuity of Care Document ---
Author Organization [facility] Address [address] [place] [address]- Care Team Providers Care Bullion Weigher Name Role Phone Glenn AQUINO, Danielle Primary Care Physician Encounter [facility] [place] Date(s): 03/13/20 - 04/12/20 [facility] [address] [place] [address]- Allergies, Adverse Reactions, Alerts No Known Medication Allergies Substance Reaction Severity Status Other Environmental Allergy 1 Active 1Wool Medications atorvastatin 40 mg oral tablet 1 tablet = 40 mg, By Mouth, Daily, # 90 tablet, 0 Refills, Maintenance, 04/09/20 15:40:00 EST, Tablet, [facility]/pharmacy #[id number], 172, cm, 04/09/20 13:00:00 EST, Height Start Date: 04/09/20 Stop Date: 07/08/20 Status: Ordered duloxetine 30 mg oral enteric coated capsule 1 capsule, By Mouth, Daily, # 90 capsule, 0 Refills, Maintenance, 04/09/20 15:40:00 EST, [facility]/pharmacy #[id number], 172, cm, 04/09/20 13:00:00 EST, Height Start Date: 04/09/20 Stop Date: 07/08/20 Status: Ordered gabapentin 300 mg oral capsule 1, capsule, By Mouth, 3 times a day, # 270 capsule, Refills 0, Tot. Refills 0, Maintenance, 04/09/20 15:39:00 EST, Route to Pharmacy Electronically, [facility]/pharmacy #[id number], 172, cm, 04/09/20 13:00:00 EST, Height Start Date: 04/09/20 Stop Date: 07/08/20 Status: Ordered lisinopril 5 mg oral tablet 5 mg, 1, tablet, By Mouth, Daily, # 90 tablet, Refills 0, Tot. Refills 0, Maintenance, 04/09/20 15:38:00 EST, Route to Pharmacy Electronically, [facility]/pharmacy #[id number], 172, cm, 04/09/20 13:00:00 EST, Height Start Date: 04/09/20 Stop Date: 07/08/20 Status: Ordered metoprolol 25 mg oral tablet, extended release 25 mg, 1, tablet, By Mouth, Daily, # 90 tablet, Refills 0, Tot. Refills 0, Maintenance, 04/09/20 15:37:00 EST, Route to Pharmacy Electronically, [facility]/pharmacy #[id number], 172, cm, 04/09/20 [...] 04/09/20 15:39:00 EST, [id number], cm, 04/09/20 13:00:00 EST, Height Start Date: 04/09/20 Stop Date: 07/08/20 Status: Ordered Tylenol Extra Strength 500 mg oral tablet 2 tablet = 1,000 mg, By Mouth, 2 times a day, PRN Pain, for 90 days, # 120 tablet, 0 Refills, Acute07/08/20 15:41:00 EDT, 04/09/20 15:41:00 EST, [facility]/pharmacy #[id number], Partial fill upon [...]
--- OUTSIDE RECORDS SUMMARY | 2023-07-31 11:56 | XMS_ITS | Continuity of Care Document ---
Author Organization [facility] Address [address] [place] [address]- Care Team Providers Care Metrology Manager Name Role Phone Glenn AQUINO, Danielle Primary Care Physician Encounter [facility] [place] Date(s): 08/01/20 - 09/29/20 [facility] [address] [place] [address]- Encounter Diagnosis Gastritis(Discharge Diagnosis) - 09/13/20 Attending Physician: Danielle Elizabeth NP Allergies, Adverse [...] Maintenance,07/11/20 15:14:00 EDT, Route to Pharmacy Electronically, [facility]/pharmacy #[id number], 172, cm, 07/11/20 14:49:00 EDT, Height Start Date: 07/11/20 Stop Date: 09/09/20 Status: Ordered lisinopril 20 mg oral tablet 20 mg, 1, tablet, By Mouth, Daily, # 90 tablet, Refills 1, Tot. Refills 1, Maintenance, 07/11/20 15:12:00 EDT, Route to Pharmacy Electronically, [facility]/pharmacy #[id number], Partial fill upon patient request if the prescription is for a schedule II opioid drug... Start Date: 07/11/20 Stop Date: 01/07/21 Status: Ordered metFORMIN 750 mg oral tablet, extended release 1 tablet = 750 mg, By Mouth, 2 times a day, with food, # 180 tablet, 1 Refills, Maintenance, 07/12/20 7:44:00 EDT, ER Tablet, [facility]/pharmacy #[id number], Partial fill upon patient request if the prescriptionis for a schedule II opioid drug., 172, cm, ... Start Date: 07/12/20 Stop Date: 01/08/21 Status: Ordered metoprolol 25 mg oral tablet, extended release 25 mg, 1, tablet, By Mouth, Daily, # 90 tablet, Refills 1, Tot. Refills 1, Maintenance, 07/16/20 12:36:00 EDT, Route to Pharmacy Electronically, [facility]/pharmacy #[id number], 172, cm, 07/11/20 15:26:00 [...] 07/16/20 12:36:00 EDT, Route to Pharmacy Electronically, [facility]/pharmacy #[id number], 172, cm, 07/11/20 15:26:00 [...] Diagnosis Diagnosis Type Effective Dates Health Status Clini vamshi Service Informant Gastritis Discharge Diagnosis 09/13/20 Social History Social History Type Response Smoking Status 10 or more cigarette s (1/2 pack or more)/day in last 30 days; Other: about 2.5 ppd; entered on: 02/28/19 Sex
--- OUTSIDE RECORDS SUMMARY | 2023-07-31 11:56 | XMS_ITS | Continuity of Care Document ---
Author Organization [facility] Address [address] [place] [address]- Care Team Providers Care Nail Artist Name Role Phone Imani AQUINO, Beatrice Carbajal Primary Care Physician [phone] Encounter [facility] [place] Date(s): 11/14/21 - 12/14/21 [facility] [address] [place] [address]- Encounter Diagnosis HTN (hypertension)(Discharge Diagnosis) - 07/16/20 [...] 1 Refills, Maintenance, 11/20/20 10:30:00 EDT, Tablet, [facility] #[id number], 172, cm, 08/01/20 13:59:00 EDT, Height Start Date: 11/20/20 Stop Date: 05/19/21 Status: Ordered Combivent Respimat 20 mcg-100 mcg/inh inhalation aerosol 1 puffs, Inhalation, 4 times a day, PRN Wheezing/Shortness of Breath, # 1 each, 3 Refills, Maintenance, 06/13/20 15:39:00 EST, [facility]erosol, [id number], Partial fill upon patient request if the prescription is for a schedule II opioid drug., 1 puff... Start Date: 06/13/20 Status: Ordered duloxetine 30 mg oral enteric coated capsule 1 capsule, By Mouth, Daily, # 90 capsule, 0 Refills, Maintenance, 02/07/21 16:12:00 EDT, [facility] #[id number], 172, cm, 08/01/20 13:59:00 EDT, Height Start Date: 02/07/21 Stop Date: 05/08/21 Status: Ordered fenofibrate 54 mg oral tablet 1 tablet = 54 mg, By Mouth, Daily, # 30 tablet, 0 Refills, Maintenance, 05/10/21 11:35:00 EST, [facility] #[id number], Partial fill upon patient request if the [...] 05/29/21 13:15:00 EST, Route to Pharmacy Electronically, [facility] #[id number], 175, cm, 02/14/21 20:23:... Start Date: 05/29/21 Stop Date: 06/28/21 Status: Ordered lisinopril 20 mg oral tablet 1, tablet, By Mouth, Daily, # 30 tablet, Refills 5, Route to Pharmacy Electronically, [facility] #[id number], 175, cm, 02/14/21 20:23:00 EDT, Height, 77.5, kg, 02/14/21 20:23:00 EDT, Dry Weight Start Date: 02/23/21 Status: Ordered MetFORMIN (Eqv-Glucophage XR) 500 mg oral tablet, extended release 2 tablet = 1,000 mg, By Mouth, 2 times a day, # 120 tablet, 3 Refills, Maintenance, 04/15/21 15:52:00 EST, [facility] #[id number], Partial fill upon patient request if the prescription is for a schedule II opioid drug., 175, cm, 02/14/21 20:23:00... Start Date: 04/15/21 Stop Date: 08/13/21 Status: Ordered metFORMIN 500 mg oral tablet, extended release 2 tablet = 1,000 mg, By Mouth, Daily, # 60 tablet, 0 Refills, Maintenance, 04/11/21 12:42:00 EST, [facility] #[id number], Partial fill upon patient request if the [...] Refills, Maintenance, 02/08/21 9:48:00 EDT, ER Tablet, [facility] #[id number], Partialfill upon patient request if the prescription is... Start Date: 02/08/21 Stop Date: 08/07/21 Status: Ordered metoprolol 25 mg oral tablet, extended release 25 mg, 1, tablet, By Mouth, Daily, # 90 tablet, Refills 0, Tot. Refills 0, Maintenance, 05/10/21 11:34:00 EST, Route to Pharmacy Electronically, [facility] #[id number], 175, cm, 02/14/21 20:23:00 EDT, Height, 77.5, kg, 02/14/21 20:23:00 EDT, Dry... Start Date: 05/10/21 Status: Ordered metoprolol 25 mg oral tablet, extended release 25 mg, 1, tablet, By Mouth, Daily, # 90 tablet, Refills 1, Tot. Refills 1, Maintenance, 10/19/20 15:29:00 EDT, Route to Pharmacy Electronically, [facility] #[id number], 172, cm, 08/01/20 13:59:00 EDT, Height Start Date: 10/19/20 Stop Date: 04/17/21 Status: Ordered omeprazole 40 mg oral enteric coated capsule 1 capsule = 40 mg, By Mouth, Daily, # 90 capsule, 0 Refills, Maintenance, 04/24/21 14:31:00 EST, ECCapsule, [facility] #[id number], Partial fill upon patient request if the prescription is for a schedule II opioid drug., 175, cm, 02/14/21 20:23:... Start Date: 04/24/21 Status: Ordered QUEtiapine 100 mg oral tablet 1, tablet, By Mouth, Daily, bloodwork and appt needed, # 30 tablet, Refills 1, Tot. Refills 1, Maintenance, 02/08/21 9:46:00 EDT, Route to Pharmacy Electronically, [facility] #[id number], 172, cm, 08/01/20 13:59:00 EDT, Height Start Date: 02/08/21 Status: Ordered QUEtiapine 100 mg oral tablet See Instructions, TAKE 1 TABLET BY MOUTH DAILY BLOODWORK AND APPOINTMENT NEEDED, # 30 tablet, Refills 0, Tot. Refills 0, 05/29/21 13:15:00 EST, Instructions Replace Required Details, Route to Pharmacy Electronically, [facility] #[id number], 175,... Start Date: 05/29/21 Status: Ordered Suboxone [...] 05/10/21 11:34:00 EST, Route to Pharmacy Electronically, [facility] #[id number], Partial fill uponpatient request if the prescription [...]
--- OUTSIDE RECORDS SUMMARY | 2023-07-31 11:56 | XMS_ITS | Continuity of Care Document ---
Author Organization [facility] Address [address] [place] [address]- Care Team Providers Care Relationship Manager Name Role Phone Lucho Cardona DO Primary Care Physician [phone] Encounter [facility] [place] Date(s): 05/09/19 - 05/16/19 [facility] [address] [place] [address]- [facility] Encounter Diagnosis Schizoaffective disorder(Discharge Diagnosis) - 05/09/19 Cellulitis, toe(Discharge Diagnosis) - 05/09/19 Knee pain(Discharge Diagnosis) - 05/09/19 Abdominal pain(Discharge Diagnosis) - 05/09/19 Attending Physician: Lucho Cardona DO Allergies, Adverse [...] 03/25/19 16:00:32 EST, Route to Pharmacy Electronically, [id number], [facility]/pharmacy #[id number] Start Date: 03/25/19 Status: Ordered ibuprofen 600 mg oral tablet 600 mg, 1, tablet, By Mouth, 3 times a day, PRN, for 30 days, # 90 tablet, Refills 1, Tot. Refills 1, Acute 05/24/19 15:59:57 EST, Pain , Moderate, 03/25/19 15:59:57 EST, Route to Pharmacy Electronically, [id number], [facility]/phar... Start Date: 03/25/19 Stop Date: 05/24/19 Status: Ordered Keflex monohydrate 500 mg oral capsule 1 capsule = 500 mg, By Mouth, Every 8 hours, for 10 days, # 30 capsule, 0 Refills, Acute 05/22/19 10:44:00 EST, 05/12/19 10:44:00 EST, [id number], 172, cm, 05/09/19 10:09:00 EST, Height Start Date: 05/12/19 Stop Date: 05/22/19 Status: Ordered lisinopril 5 mg oral tablet 5 mg, 1, tablet, By Mouth, Daily, # 30 tablet, Refills 5, Tot. Refills 5, Maintenance, 05/09/19 10:34:00 EST, [id number], 172, cm, 05/09/19 10:09:00 EST, Height Start Date: 05/09/19 Status: Ordered metoprolol 25 mg oral tablet, extended release 25 mg, 1, tablet, By Mouth, Daily, # 30 tablet, Refills 5, Tot. Refills 5, Maintenance, 05/09/19 10:34:00 EST, [facility], [id number], 172, cm, 05/09/19 10:09:00 EST, Height Start Date: 05/09/19 Status: Ordered QUEtiapine 100 mg oral tablet 100 mg, 1, tablet, By Mouth, Daily, # 30 tablet, Refills 1, Tot. Refills 1, Maintenance, 04/11/19 13:46:18 EST, Route to Pharmacy Electronically, [facility]/pharmacy #[id number], 172, cm, 04/11/19 13:08:04 EST, Height Start Date: 04/11/19 Status: Ordered Problem List Condition Effective Dates Status Health Status Inform ant HTN (hypertension)(Confirmed) Active Schizoaffective disorder(Confirmed) Active Diagnosis Diagnosis Type Effective Dates Health Status Clinical Service Informant Schizoaffective disorder Discharge Diagnosis 05/09/19 Cellulitis, toe Discharge Diagnosis 05/09/19 Knee pain Discharge Diagnosis 05/09/19 Abdominal pain Discharge Diagnosis 05/09/19 Vital Signs Most recent to oldest [Reference Range]: 1 Height 172 cm (05/09/19 10:09 AM) Oxygen Saturation [94-100 %] 97 % (05/09/19 10:09 AM) Pulse Rate [55-90 bpm] 87 bpm (05/09/19 10:09 AM) Blood Pressure [90-138/55-84 mm Hg] 128/ 76mm Hg (05/09/19 10:09 AM) Respiratory Rate [16-30 br/min] 16 br/mi n (05/09/19 10:09 AM) Temperature [96.8-100.4 DegF] 97.8 DegF (05/09/19 10:09 AM) Mode of Delivery (Oxygen) Room air (05/09/19 10:09 AM) Blood pressure sites Arm, left (05/09/19 10:09 AM) Temperature Route Oral (05/09/19 10:09 AM) Social History Social History Type Response Smoking Status 10 or more cigarette s (1/2 pack or more)/day in last 30 days; Other: about 2.5 ppd; entered on: 02/28/19 Sex
--- OUTSIDE RECORDS SUMMARY | 2023-07-31 11:56 | XMS_ITS | Continuity of Care Document ---
Author Organization [facility] Address [address] [place] [address]- Care Team Providers Care Ski Production Supervisor Name Role Phone Imani AQUINO, Beatrice Carbajal Primary Care Physician [phone] Encounter [facility] Date(s): 06/24/21 - 07/24/21 [facility] [address] [place], [place] [address] Allergies, Adverse Reactions, Alerts No Known Medication Allergies Substance Reaction Severity Status Other Environmental Allergy 1 Active 1Wool Medications atorvastatin 40 mg oral tablet 1 tablet = 40 mg, By Mouth, Daily, # 90 tablet, 1 Refills, Maintenance, 11/20/20 10:30:00 EDT, Tablet, [facility] #[id number], 172, cm, 08/01/20 13:59:00 EDT, Height Start Date: 11/20/20 Stop Date: 05/19/21 Status: Ordered Combivent Respimat 20 mcg-100 mcg/inh inhalation aerosol 1 puffs, Inhalation, 4 times a day, PRN Wheezing/Shortness of Breath, # 1 each, 3 Refills, Maintenance, 06/13/20 15:39:00 EST, Aerosol, [facility]/pharmacy #[id number], Partial fill upon patient request if the prescription is for a schedule II opioid drug., 1 puff... Start Date: 06/13/20 Status: Ordered duloxetine 30 mg oral enteric coated capsule 1 capsule, By Mouth, Daily, # 90 capsule, 0 Refills, Maintenance, 02/07/21 16:12:00 EDT, [facility] #[id number], 172, cm, 08/01/20 13:59:00 EDT, Height Start Date: 02/07/21 Stop Date: 05/08/21 Status: Ordered fenofibrate 54 mg oral tablet 1 tablet = 54 mg, By Mouth, Daily, # 30 tablet, 0 Refills, Maintenance, 05/10/21 11:35:00 EST, [facility] #[id number], Partial fill upon patient request if the [...] 05/29/21 13:15:00 EST, Route to Pharmacy Electronically, [facility] #[id number], 175, cm, 02/14/21 20:23:... Start Date: 05/29/21 Stop Date: 06/28/21 Status: Ordered lisinopril 20 mg oral tablet 1, tablet, By Mouth, Daily, # 30 tablet, Refills 5, Route to Pharmacy Electronically, [facility] #[id number], 175, cm, 02/14/21 20:23:00 EDT, Height, 77.5, kg, 02/14/21 20:23:00 EDT, Dry Weight Start Date: 02/23/21 Status: Ordered MetFORMIN (Eqv-Glucophage XR) 500 mg oral tablet, extended release 2 tablet = 1,000 mg, By Mouth, 2 times a day, # 120 tablet, 3 Refills, Maintenance, 04/15/21 15:52:00 EST, [facility] #[id number], Partial fill upon patient request if the prescription is for a schedule II opioid drug., 175, cm, 02/14/21 20:23:00... Start Date: 04/15/21 Stop Date: 08/13/21 Status: Ordered metFORMIN 500 mg oral tablet, extended release 2 tablet = 1,000 mg, By Mouth, Daily, # 60 tablet, 0 Refills, Maintenance, 04/11/21 12:42:00 EST, [facility] #[id number], Partial fill upon patient request if the [...] Refills, Maintenance, 02/08/21 9:48:00 EDT, ER Tablet, [facility] #[id number], Partialfill upon patient request if the prescription is... Start Date: 02/08/21 Stop Date: 08/07/21 Status: Ordered metoprolol 25 mg oral tablet, extended release 25 mg, 1, tablet, By Mouth, Daily, # 90 tablet, Refills 0, Tot. Refills 0, Maintenance, 05/10/21 11:34:00 EST, Route to Pharmacy Electronically, [facility] #[id number], 175, cm, 02/14/21 20:23:00 EDT, Height, 77.5, kg, 02/14/21 20:23:00 EDT, Dry... Start Date: 05/10/21 Status: Ordered metoprolol 25 mg oral tablet, extended release 25 mg, 1, tablet, By Mouth, Daily, # 90 tablet, Refills 1, Tot. Refills 1, Maintenance, 10/19/20 15:29:00 EDT, Route to Pharmacy Electronically, [facility] #[id number], 172, cm, 08/01/20 13:59:00 EDT, Height Start Date: 10/19/20 Stop Date: 04/17/21 Status: Ordered omeprazole 40 mg oral enteric coated capsule 1 capsule = 40 mg, By Mouth, Daily, # 90 capsule, 0 Refills, Maintenance, 04/24/21 14:31:00 EST, ECCapsule, [facility] #[id number], Partial fill upon patient request if the prescription is for a schedule II opioid drug., 175, cm, 02/14/21 20:23:... Start Date: 04/24/21 Status: Ordered QUEtiapine 100 mg oral tablet 1, tablet, By Mouth, Daily, bloodwork and appt needed, # 30 tablet, Refills 1, Tot. Refills 1, Maintenance, 02/08/21 9:46:00 EDT, Route to Pharmacy Electronically, [facility] #[id number], 172, cm, 08/01/20 13:59:00 EDT, Height Start Date: 02/08/21 Status: Ordered QUEtiapine 100 mg oral tablet See Instructions, TAKE 1 TABLET BY MOUTH DAILY BLOODWORK AND APPOINTMENT NEEDED, # 30 tablet, Refills 0, Tot. Refills 0, 05/29/21 13:15:00 EST, Instructions Replace Required Details, Route to Pharmacy Electronically, [facility] #[id number], 175,... Start Date: 05/29/21 Status: Ordered Suboxone [...] 05/10/21 11:34:00 EST, Route to Pharmacy Electronically, [facility] #[id number], Partial fill uponpatient request if the prescription [...]
--- OUTSIDE RECORDS SUMMARY | 2023-07-31 11:56 | XMS_ITS | Continuity of Care Document ---
Author Organization [facility] Address [address] [place] [address]- Care Team Providers Care Roller Gold Leaf Name Role Phone Terrell Long DO Primary Care Physician [phone] [facility]counter [facility] Date(s): 11/14/22 - 11/18/[address] [address] Encounter Diagnosis Cellulitis of toe of left foot(Final) - 11/14/22 Type 2 diabetes mellitus(Final) - 11/14/22 History of substance abuse(Final) - 11/14/22 Hyperlipidemia(Discharge Diagnosis) - 11/14/22 HTN (hypertension)(Discharge Diagnosis) - 11/14/22 Schizoaffective disorder(Discharge Diagnosis) - 11/14/22 Major depression, recurrent(Discharge Diagnosis) - 11/14/22 Discharge Disposition: A-D/C Home Attending Physician: Abigail Tello MD Admitting Physician: Marcelle Hernandez MD Referring Physician: Not on Staff, Referring MD Allergies, Adverse Reactions, Alerts No Known Medication Allergies Substance Reaction Severity Status Other Environmental Allergy 1, 2 Wool Persiste nt Mild Active 1RASH 2Wool Immunizations Given and Recorded Vaccine Date Status Refusal Reason tetanus/diphtheria/pertussis, acel(Tdap) 09/07/22 Given Medications acetaminophen 325 mg oral tablet 650 mg, By Mouth, Every 4 hours, PRN, for 7 days, not to exceed 4000 mg/day, # 30 tablet, Refills 0, Tot. Refills 0, Acute 11/25/22 11:00:00 EDT, Pain , Mild, 11/18/22 11:00:00 EDT, Print Requisition, Partial fill upon patient request if the prescript... Start Date: 11/18/22 Stop Date: 11/25/22 Status: Ordered atorvastatin 40 mg oral tablet [...] opioid drug. Start Date: 11/18/22 Status: Ordered cyclobenzaprine 10 mg oral tablet 10 mg, Tablet, By Mouth, 11/18/22 15:00:00 EDT Start Date: 11/18/22 Stop Date: 11/18/22 Status: Completed efinaconazole 10% topical solution 1 application, Topically, [...] Injection, Partial... Start Date: 09/18/22 Status: Ordered levoFLOXacin 750 mg oral tablet = 750 mg, By Mouth, Every 24 hours, for 5 days, # 5 tablet, 0 Refills, Acute 11/23/22 13:04:00 EDT,11/18/22 13:04:00 EDT, Tablet, [id number], Partial fill upon patient request if the prescription is for a schedule II opioid drug., 17... Start Date: 11/18/22 Stop Date: 11/23/22 Status: Ordered lisinopril 5 mg oral tablet 5 mg, Tablet, By Mouth, 11/18/22 9:00:00 EDT Start Date: 11/18/22 Stop Date: 11/18/22 Status: Completed lisinopril 5 mg oral tablet [...] release 25 mg, XL Tablet, By Mouth, 11/18/22 9:00:00 EDT Start Date: 11/18/22 Stop Date: 11/18/22 Status: Completed metoprolol 25 mg oral tablet, extended release 25 mg, 1, tablet, By Mouth, Daily, # 90 tablet, Refills 1, Tot. Refills 1, Maintenance, 10/02/22 9:57:00 EDT, Print Requisition Start Date: 10/02/22 Stop Date: 03/31/23 Status: Ordered miconazole 2% topical cream 1 application, Topically, 2 times a day, for 14 days, # 15 Gm, 0 Refills, Acute 12/02/22 11:24:00 EDT, 11/18/22 11:24:00 EDT, Cream, [facility] #[id number], Partial fill upon patient request if the prescription is for a schedule II opioid drug.,... Start Date: 11/18/22 Stop Date: 12/02/22 Status: Ordered oxyCODONE 5 mg oral tablet 5 mg, Tablet, By Mouth, Every 6 hours, PRN for Pain , Severe, Routine, 11/18/22 9:11:00 EDT Start Date: 11/18/22 Stop Date: 11/19/22 Status: Discontinued oxyCODONE 5 mg oral tablet 5 mg, By Mouth, Every 12 hours, PRN, for 3 days, # 6 tablet, Refills 0, Tot. Refills 0, Acute 11/21/22 13:04:00 EDT, Pain , Severe, 11/18/22 13:04:00 EDT, Route to Pharmacy Electronically, [facility] #[id number], Partial fill upon patient request... Start Date: 11/18/22 Stop Date: 11/21/22 Status: Ordered pantoprazole 40 mg oral delayed [...] Status Clinical Service Informant Hyperlipidemia Discharge Diagnosis 11/14/22 Non-Specified HTN (hypertension) Discharge Diagnosis 11/14/22 Non-Specified Schizoaffective disorder Discharge Diagnosis 11/14/22 Non-Specified Major depression, recurrent Discharge Diagnosis 11/14/22 Non-Specified Results Orders for Microbiology Reports Name Date Blood Culture 11/14/22 Blood Culture #2 11/14/22 Microbiology Reports TEST:Blood Culture, Second Order STATUS:Unauthenticated BODY SITE: SOURCE:Blood COLLECTED DATE/TIME:11/14/22 5:30 PM Blood Culture, Second Order SPECIMEN DESCRIPTION : BLOOD R HAND SPECIAL REQUESTS : NONE CULTURE : NO GROWTH 4 DAYS REPORT STATUS : PRELIMINARY REPORT TEST:Blood Culture STATUS:Unauthenticated BODY SITE: SOURCE:Blood COLLECTED DATE/TIME:11/14/22 4:59 PM Blood Culture SPECIMEN DESCRIPTION : BLOOD R HAND SPECIAL REQUESTS : NONE CULTURE : NO GROWTH 4 DAYS REPORT STATUS : PRELIMINARY REPORT Radiology Reports * Exam Date Time Procedure Performing Provider Status 11/14/22 5:20 PM Toe Great Left Foot Arcadioselibreanna , Tracy; Au th (Verified) Notes: (Toe Great Left Foot) Reason For Exam: Infection RESULT: Toe Great Left Foot Toe Great Left Foot, 3 views Hx of Present Illness: from [place] for left great toe infection +color change on bactrim for ID yesterday; Reason: Infection; Clinical Question(s): Other: COMPARISON: Left foot radiograph 06/01/2019 FINDINGS: No fractures or bone lesions. Hallux valgus deformity of the first MTP joint with associated degenerative changes and mild subluxation. 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 Unchangedsubluxation of the second MTP joint. No abnormal osteopenia or osseous erosion to suggest osteomyelitis. Mild soft tissue swelling of the first digit. No soft tissue gas or radiopaque foreign body. Partially imaged or area of the ankle. IMPRESSION: 1. Mild soft tissue swelling of the first digit. No soft tissue gas or radiopaque foreign body. 2. No radiographic evidence of osteomyelitis at this time. 3. Additional findings detailed above. WSN: [id number] Ordering Physician: Дмитрий Whitney Dictated By: Beto Casper MD Dictated Date/Time: 11/14/22 5:41 pm Reviewed By: Beto Casper MD Signed By: Beto Casper MD Signed Date/Time: 11/14/22 5:41 pm Transcribed By: PRASHANTH Transcribed Date/Time: 11/14/22 5:38 pm Vital Signs Most recent to oldest [Reference Range]: 1 2 3 4 Height 178 cm (11/18/22 7:51 AM) 178 cm (11/17/22 7:34 PM) 178 cm (11/17/22 3:10 PM) Weight 83.6 kg (11/15/22 5:53 PM) 83.6 kg (11/15/22 5:22 PM) 84.5 kg (11/14/22 3:50 PM) Oxygen Saturation [94-100 %] 98 % (11/18/22 3:16 PM) 95 % (11/18/22 7:51 AM) 98 % (11/18/22 4:00 AM) Pulse Rate [55-90 bpm] 65 bpm (11/18/22 3:16 PM) 83 bpm (11/18/22 7:51 AM) 65 bpm (11/18/22 7:45 AM) Body Mass Index [18.5-24.99 kg/m2] 26.39 kg/m2 *H* (11/15/22 5:53 PM) 26.39 kg/m2 *H* (11/15/22 5:22 PM) Blood Pressure [90-138/55-84 mm Hg] 119/79mm Hg (11/18/22 3:16 PM) 137/79mm Hg (11/18/22 7:51 AM) 118/74mm Hg (11/18/22 7:45 AM) 118/74mm Hg (11/18/22 7:45 AM) Respiratory Rate [16-30 br/min] 18 br/min (11/18/22 3:16 PM) 19 br/min (11/18/22 2:25 PM) 19 br/min (11/18/22 11:43 AM) Temperature [96.8-100.4 DegF] 98.0 DegF (11/18/22 3:16 PM) 98.6 DegF (11/18/22 7:51 AM) 96.8 DegF (11/18/22 4:00 AM) Liters per Minute 0 L/min (11/18/22 3:16 PM) 0 L/min (11/18/22 7:51 AM) 0 L/min (11/15/22 3:02 PM) Mode of Delivery (Oxygen) Room air (11/18/22 3:16 PM) Room air (11/18/22 7:51 AM) Room air (11/18/22 4:00 AM) Blood pressure sites Arm, right (11/18/22 3:16 PM) Arm, right (11/18/22 7:51 AM) Arm, left (11/18/22 4:00 AM) Temperature Route Oral (11/18/22 3:16 PM) Oral (11/18/22 7:51 AM) Oral (11/18/22 4:00 AM) Dry Weight 85 kg (11/15/22 5:53 PM) 83.6 kg (11/15/22 5:22 PM) 84.5 kg (11/14/22 3:50 PM) Weight Obtained Via Standing scale (11/15/22 5:53 PM) Standing scale (11/15/22 5:22 PM) Dry Weight Obtained Via Patient/family stated (11/15/22 5:53 PM) Social History Social History Type Response Tobacco Use: 2 PPD. Interest ed in cessation: No. No, Other: about 2.5 ppd. Type: Cigarettes. Sex History and physical note * Abner DOWNING, Reji P: PERFORM Event Display: History and Physical Hospital Authored Date: [id number] Patient: ??KYLE REGALADO ? Age:??62 Years?Sex:??Male?:??1960?? Chief Complaint/Reason for Consultation Pain, redness and swelling of left big toe x 3 weeks History of Present Illness Date: 11/14/2022 Source: Patient and review of EMR ?? 62-year-old white male with??past medical history of type 2 diabetes mellitus, hypertension, hyperlipidemia, depression, and polysubstance abuse currently on Suboxone and who currently resides at [facility] presents to the emergency room accompanied by SNF staff complaining of pain, swelling and??redness involving??the left big toe for about 3 weeks now.?? He initial thought that he had??an ingrown nail and so did not pay much attention to it.?? However this has gotten more swollen, redand painful prompting him to be seen at their medical clinic yesterday where he was started on oralBactrim which he started taking today but then it was very painful today prompting his ER visit today.?? He denies any preceding trauma or any??associated fever or chills.?Initial work-up??in the emergency room was significant for hyponatremia with a serum sodium of 128 and mild hyperglycemia with a blood sugar of 263.?? Plain x-rays of the left big toe had no radiographic evidence of cellulitis.?? He was started intravenous antibiotics (Vancomycin and Ceftriaxone) and admission requested. Review of Systems Constitutional:??No weight loss, fever, chills, weakness or fatigue. HEENT:??No visual loss, blurred vision, double vision or yellow sclera. No hearing loss, sneezing, congestion, runny nose or sore throat. Skin:??No rash or itching. Cardiovascular:??No chest pain, chest pressure or chest discomfort. No palpitations or pedal edema. Respiratory:??No shortness of breath, cough or sputum production. Gastrointestinal:??No anorexia, nausea, vomiting or diarrhea. No abdominal pain or blood in stool. Genitourinary:??No burning micturition. No urinary frequency or incontinence. Neurologic:??No headache, dizziness, syncope, unilateral weakness, ataxia, numbness or tingling in the extremities. Musculoskeletal:??As noted above in the HPI Hematologic:??No bleeding or bruising. Lymphatics:??No enlarged lymph nodes. Psychiatric:??No depression or anxiety. Endocrine:??No reports of sweating. No cold or heat intolerance. No polyuria or polydipsia. Objective Vital Signs?? Temperature: 97.7 DegF (11/14/22 21:24:00) Temperature Route: Oral (11/14/22 21:24:00) Pulse Rate: 58 bpm (11/15/22 00:00:00) Respiratory Rate: 18 br/min (11/15/22 04:13:00) Systolic Blood Pressure: 102 mm Hg (11/15/22 00:00:00) Diastolic Blood Pressure:??47 mm Hg??Low (11/15/22 00:00:00) Blood pressure sites: Arm, left (11/15/22 00:00:00) Mean Arterial Pressure: 64 mm Hg (11/14/22 21:24:00) Pulse Pressure: 53 mm Hg (11/14/22 21:24:00) Oxygen Saturation: 94 % (11/15/22 00:00:00) Mode of Delivery (Oxygen): Room air (11/15/22 00:00:00) ? Physical Exam General:??Alert, in no acute cardiopulmonary distress. Mental Status:??Oriented to person, place and time. Normal affect. Head:??Normocephalic. Atraumatic. Eyes:??No pallor or jaundice. Pupils are equal, round and reactive to light. Extraocular muscles intact. Ear, Nose and Throat:??Oropharynx clear, mucous membranes moist.?? Trachea midline. Neck:??Supple, Full range of motion. Respiratory:??Clear to auscultation bilaterally. No wheezing, rales or rhonchi. Cardiovascular:??Heart sounds normal. No thrills. Regular rate and rhythm, no murmurs, rubs or gallops. Gastrointestinal:??Abdomen soft, non-tender, non-distended. Normal bowel sounds. No pulsatile mass.No hepatosplenomegaly. Genitourinary:??No costovertebral angle tenderness. Neurologic:??AAO x 4. Intact speech and cognition. Normal gait & balance. Cranial nerves II-XIIgrossly intact. No focal neurological deficits. Skin:??No rashes or lesions. No petechiae or purpura. No edema. Musculoskeletal:??Left big toe is swollen, red, and exquisitely tender. Lymphatics:??Palpation of neck and groin with no swollen or tender lymph nodes. Assessment/Plan 62-year-old white male with past medical history of type 2 diabetes mellitus, hypertension, hyperlipidemia, depression, and polysubstance abuse currently on Suboxone here with: ?? Cellulitis of toe of left foot (L03.032):? - involving left big toe - continue IV ceftriaxone and Vancomycin - Switch to oral antibiotics once starts improving ?? Hyponatremia - he has a h/o chronic hyponatremia and his current??serum sodium is 128 - recheck in the morning. ?? HTN (hypertension) (I10):? - BP control is fair - continue Lisinopril ?? History of substance abuse (F19.11):? - continue Suboxone ?? Hyperlipidemia (E78.5):? - continue Atorvastatin ?? Major depression, recurrent (F33.9):? - continue Seroquel and Zoloft ?? Type 2 diabetes mellitus (E11.9):? - continue Metformin ?? VTE Prophylaxis:? - Lovenox ?? Code Status:? - FULL CODE ?Order Code Status:??Code Status Ordered ?? Discharge Planning:? Histories Allergies Other Environmental Allergy?-?Comments: Wool ? Past Medical History/Problem List Abdominal aortic ectasia Calcification of abdominal aorta Centrilobular emphysema Chronic hyponatremia Chronic low back pain Chronic obstructive pulmonary disease Chronic pain of both knees Chronic pain syndrome Compression fracture of spine Diabetes mellitus, type II Duodenal ulcer Environmental allergies Gastritis GI bleed History of lung cancer Homelessness HTN (hypertension) Hyperlipidemia Major depression, recurrent Mixed hyperlipidemia OA (osteoarthritis) Obese class I Opiate dependence Schizoaffective disorder Smoking Substance abuse in remission Type 2 diabetes mellitus with diabetic peripheral angiopathy without gangrene Wedge compression fracture of L1 vertebra ? Past Surgical History Reconstruction of facial bones Ankle CA - Lung cancer Heart H/O: major abdominal surgery Repair of ruptured spleen (splenorrhaphy) with or without partial splenectomy ? Social History Alcohol Details:??Use: Past. Details:??Use: Current. ??Frequency: 3-5 times per week. ??Type: Beer, Liquor. ??Other: About 3-4 drinks. Home/Environment Details:??Living situation: Homeless/Care Home. ??Other: currently at [facility]. Substance Abuse Details:??Use: Past. Details:??Use: Current. ??Type: Cocaine, Marijuana. ??Other: Uses crack cocaine about 5-6 times a week, I use all my rent money to buy it . ??Frequency: 3-5 times per week. Tobacco Details:??Use: 2 PPD. ??Interested in cessation: No. ??Other: about 2.5 ppd. ??Type: Cigarettes. ? Family History Mother (): Diabetes mellitus type II Brother: Alcoholism; Myocardial infarction ? Medications Home Medications Albuterol/Ipratropium (Combivent Respimat 20 mcg-100 mcg/inh)?1?puff Q4H??PRN??Wheezing/SOB?? Atorvastatin?40?Milligram?By Mouth?Daily? Buprenorphine-Naloxone (buprenorphine-naloxone 4 mg-1 mg sublingual film)?1?Film?Sublingual?4 times a day?for 7?Days Cyclobenzaprine??10?Milligram?By Mouth?3 times a day Fenofibrate?54?Milligram?By Mouth?Daily Hydroxyzine 50?Milligram?By Mouth?Every 6 hours?as needed?Anxiety Insulin Lispro??-?6-14 units?Subcutaneous Injection?3 times a day before meals Lisinopril?5?Milligram?By Mouth?Daily Metformin 500?Milligram?By Mouth?2 times a day before breakfast and dinner Metoprolol extended release?25?Milligram?By Mouth?Daily?? Nicotine (Nicotine 2 mg gum)?2?Milligram?Chew?Every 15 minutes?as needed?Other?cigarette craving Omeprazole?? 40?Milligram?By Mouth?Daily Quetiapine??100?Milligram?By Mouth?Daily at bedtime Quetiapine??50?Milligram?By Mouth?Daily in AM Sertraline?50?Milligram?By Mouth?Daily Trazodone 50?Milligram?By Mouth?Daily at bedtime?as needed?Insomnia Varenicline?0.5?Milligram?By Mouth?Daily ? EKG study * Event Display: ECG 12-Lead Authored Date: Please click on pdf link to open report * Event Display: ECG 12-Lead Authored Date: Ventricular Rate: 72 BPM Atrial Rate: 72 BPM P-R Interval: 228 ms QRS Duration: 108 ms Q-T Interval: 402 ms QTC Calculation(Bazett): 440 ms P [place]: 35 degrees R [place]: 18 degrees T [place]: 62 degrees Sinus rhythm with 1st degree A-V block Otherwise normal ECG When compared with ECG of 11-SEP-2022 13:00, No significant change was found Confirmed by [facility] ([id number] on 11/18/2022 7:33:04 PM [place]: [facility] Progress note * Dk Ryan RN: VERIFY, PERFORM, SIGN Event Display: [facility] Authored Date: Patient: KYLE REGALADO Age: 62 years Sex: Male : 1960 Associated Diagnoses: None Author: Dk Ryan RN Findings Problem Related to Alteration in Integumentary : Alteration in Integumentary/new 11/18/2022 10:00 EDT Alteration in Integumentary Related to Cellulitis, Other: DIABETIC TOE INFECTION Goals & Outcomes, Integumentary Nutritional intake is adequate for metabolic needs, Pt will maintain adequate fluid & nutritional balance, Wound will progress towards healing Interventions, Integumentary Keep skin clean & dry BH Goals/Interventions, Integumentary Yes Integumentary, Problem Start 11/15/2022 19:02 Reviewed plan with, Integumentary Patient Patient Progression, Integumentary Pt progressing according to plan . Nursing Data Integumentary Data. : Integumentary Data. 11/18/2022 8:38 EDT Skin Integrity Intact Sensory Perception No impairment Moisture Rarely moist Activity Walks frequently Mobility No limitations Nutrition Excellent Friction and Shear No apparent problem Ricky Score 23 Nursing Care Plan initiated/updated Not applicable Integumentary WNL except . Vital Signs : VITAL SIGNS SECTION 11/18/2022 7:51 EDT Temperature 98.6 DegF Temperature Route Oral Pulse Rate 83 bpm Respiratory Rate 18 br/min Systolic Blood Pressure 137 mm Hg Diastolic Blood Pressure 79 mm Hg Blood pressure sites Arm, right Mean Arterial Pressure 98 mm Hg Pulse Pressure 58 mm Hg Oxygen Saturation 95 % Liters per Minute 0 L/min Mode of Delivery (Oxygen) Room air . Evaluation (Pt is A&O, slurred speech at baseline. Denies pain. Denies SOB. No edema. +CSM. L great toe is RODRIGO. +pp. Safety measures reinforced, call billingsley within reach. ) * Shree Ortiz RN: VERIFY, PERFORM, MODIFY, MODIFY, MODIFY, SIGN Event Display: Progress Note Hospital Authored Date: [id number] Patient: KYLE REGALADO Age: 62 years Sex: Male : 1960 Associated Diagnoses: None Author: Shree Ortiz RN Findings Problem Related to Alteration in Integumentary : Alteration in Integumentary/new 11/18/2022 1:00 EDT Alteration in Integumentary Related to Cellulitis, Other: DIABETIC TOE INFECTION Goals & Outcomes, Integumentary Nutritional intake is adequate for metabolic needs, Pt will maintain adequate fluid & nutritional balance, Wound will progress towards healing Interventions, Integumentary Encourage & assist pt to change position frequently, Keep linen clean, dry and wrinkle free, Keep skin clean & dry, Record extent of impaired skin integrity, Reposition pt off reddened areas, Teach Pt/caregiver s/s of infection BH Goals/Interventions, Integumentary Yes Integumentary, Problem Start 11/15/2022 19:02 Reviewed plan with, Integumentary Patient Patient Progression, Integumentary Pt progressing according to plan . Evaluation pt alert and oriented x3. Slurred speech noted. C/O severe pain to his left shoulder and radiating to left lower leg, Morphine given as order with some pain relief. Lungs CTA. pt received IV Vanco d/t infection. No impulsive behaviors noted. Noted resting in bed comfortably at the moment. TAB alarmon, call billingsley within reach. Hourly rounds maintained. . * Omer DOWNING, Abigail: MODIFY, PERFORM Event Display: Progress Note Hospital Authored Date: [id number] Patient: ??KYLE REGALADO ? Age:??62 Years?Sex:??Male?:??1960?? Subjective Patient??doing okay.?? Pain seems to be improving. ??Able to ambulate with a walker??short distance. ?? Continues to have??erythema, swelling improving. ?? No fever ?? Patient has been released from [place]. Review of Systems Negative except for those mentioned above. Objective Vital Signs?? Temperature: 98.2 DegF (11/17/22 15:10:00) Temperature Route: Oral (11/17/22 15:10:00) Pulse Rate: 71 bpm (11/17/22 15:10:00) Respiratory Rate: 19 br/min (11/17/22 15:33:00) Systolic Blood Pressure: 115 mm Hg (11/17/22 15:10:00) Diastolic Blood Pressure: 75 mm Hg (11/17/22 15:10:00) Blood pressure sites: Arm, right (11/17/22 15:10:00) Mean Arterial Pressure: 88 mm Hg (11/17/22 15:10:00) Pulse Pressure: 40 mm Hg (11/17/22 15:10:00) Oxygen Saturation: 95 % (11/17/22 15:10:00) Mode of Delivery (Oxygen): Room air (11/17/22 15:10:00) Early Warning Score: 3 (11/17/22 18:25:40) ? Intake/Output? 11/14 22:26 11/17 07:00 11/16 07:00 11/15 07:00 11/14 07:00 ?? 11/17 18:56 11/17 18:56 11/17 06:59 11/16 06:59 11/15 06:59 Intake ? 3140 ? 1080 ? 1580 ?480 ?0 Output ? 2620 ?915 ? 1035 ?670 ?0 Net Total ?520 ?165 ?545 ? -190 ?0 ? Urine Count ?3 ?0 ?2 ?1 ?0 ? Physical Exam General:??Comfortable, speaking in full sentences Heart: S1-S2 heard, rate rhythm regular, no murmurs Lungs: Clear to auscultation bilaterally Abdomen: Soft, nontender, nondistended, bowel sounds present Extremity:??left big toe??erythematous. ??Swelling improving.?? Less tender on palpation. _ Inpatient Medications Medications (33) Active SCHEDULED: (17) Atorvastatin 40 mg Tablet (atorvastatin 40 mg oral tablet) ??40 mg, By Mouth, Daily buprenorphine-naloxone 2 mg-0.5 mg Film (Suboxone 2 mg-0.5 mg Sublingual Film) ??2 film, Sublingual, Daily buprenorphine-naloxone 8 mg-2 mg Film (Suboxone 8 mg-2 mg Sublingual Film) ??1 film, Sublingual, Daily Cyclobenzaprine 10 mg Tablet (cyclobenzaprine 10 mg oral tablet) ??10 mg, By Mouth, 3 times a day Fenofibrate 43 mg Capsule (fenofibrate 43 mg oral capsule) ??43 mg, By Mouth, Daily Insulin Glargine 100 units/mL Inj (Lantus Inj) ??15 units 0.15 mL, Subcutaneous Injection, Daily Insulin Lispro 100 units/mL Inj (3mL) (Insulin LISPRO Sliding Scale) ??2-10 units, Subcutaneous Injection, 3 times a day before meals Lisinopril 5 mg Tablet (lisinopril 5 mg oral tablet) ??5 mg, By Mouth, Daily Metformin 500 mg Tablet (metFORMIN 500 mg oral tablet) ??500 mg 1 each, By Mouth, 2 times a day before breakfast and dinne Metoprolol 25 mg XL Tablet (metoprolol 25 mg oral tablet, extended release) ??25 mg, By Mouth, Daily NaCl 0.9% Flush 3ml [...] oral tablet) ??100 mg, By Mouth, Daily Vancomycin 1250 mg Inj (Vancomycin IVPB) ??1,250 mg, IVPB, Every 12 hours Varenicline 1 mg Tablet (varenicline 1mg tablet) ??0.5 mg, By Mouth, Daily CONTINUOUS: (0) PRN: (16) Acetaminophen 325 mg Tablet (Acetaminophen Tablet) ??650 mg, By Mouth, Every 4 hours Dextromethorphan-Guaifenesin 20 mg-200 mg/10 mL Liqu UD (Robitussin DM Liquid) ??10 mL, By Mouth, Every 4 hours Dextrose Inj Syringe (Dextrose 50% Inj Syringe (25Gm)) ??12.5 Gm, IV Push Slowly, Every 20 minutes Dextrose Inj Syringe (Dextrose 50% Inj Syringe (25Gm)) ??25 Gm, IV Push Slowly, Every 15 minutes Glucagon 1 mg Inj (Glucagon Inj) ??1 mg, Intramuscular, Once Glucose 40% Gel (15 Gm) (Glucose Gel) ??15 Gm, By Mouth, Every 20 minutes Glucose 40% Gel (15 Gm) (Glucose Gel) ??30 Gm, By Mouth, Every 20 minutes HydrOXYzine Pamoate 25mg Capsule (hydrOXYzine pamoate 25 mg oral capsule) ??50 mg, By Mouth, Every 6 hours Melatonin 3 mg Tablet (Melatonin Tablet) ??3 mg, By Mouth, Daily at bedtime MorPHINE 4 mg Inj Syringe (MorPHINE Inj) ??4 mg, IV Push Slowly, Every 4 hours NaCl 0.9% Flush 3ml (NaCL 0.9% Flush) ??3 mL, IV Push, Every 8 hours Nicotine 2 mg Gum (Nicotine Gum) ??2 mg, Chew, Every hour Polyethylene Glycol 17 Gm Powder (MiraLax Powder) ??17 Gm 1 pack/packet, By Mouth, Daily Senna 8.6 mg / Docusate 50 mg tablet (Docusate/Senna Tablet) ??1 tablet, By Mouth, 2 times a day Simethicone 80 mg Chewable Tablet (Simethicone Tablet) ??80 mg, Chew, 3 times a day Trazodone 50 mg Tablet (traZODone 50 mg oral tablet) ??50 mg, By Mouth, Daily at bedtime ? Results Recent Labs BLOOD COUNT & DIFF WBC 5.3 k/mm3 ()?? 11/16/2022 06:17 RBC 4.55 m/mm3 (Low)?? 11/16/2022 06:17 Hgb 12.7 Gm/dL (Low)?? 11/16/2022 06:17 Hct 38.3 % (Low)?? 11/16/2022 06:17 MCV 84.2 femtoliters ()?? 11/16/2022 06:17 MCH 27.9 pg ()?? 11/16/2022 06:17 MCHC 33.2 g/dL ()?? 11/16/2022 06:17 Platelet Count 206 k/mm3 ()?? 11/16/2022 06:17 RDW-SD 41.2 femtoliters ()?? 11/16/2022 06:17 MPV 10.5 femtoliters ()?? 11/16/2022 06:17 Nucleated RBC (Automated) 0.0 #/100 WBC'S ()?? 11/16/2022 06:17 Abs. NRBC 0.0 k/mm3 ()?? 11/16/2022 06:17 ?? CHEM GENERAL Sodium 133 mmol/L ()?? 11/16/2022 06:17 Potassium 4.5 mmol/L ()?? 11/16/2022 06:17 Chloride 97 mmol/L (Low)?? 11/16/2022 06:17 Bicarbonate Level 27 mmol/L ()?? 11/16/2022 06:17 Anion Gap 9 ()?? 11/16/2022 06:17 Glucose Level 300 mg/dL (High)?? 11/16/2022 06:17 Glucose, POC 235 mg/dL (High)?? 11/17/2022 16:27 BUN 13 mg/dL ()?? 11/16/2022 06:17 Creatinine-Blood 0.9 mg/dL ()?? 11/16/2022 06:17 Estimated GFR Creatinine 98 ML/MIN/1.73 M2 ()?? 11/16/2022 06:17 Calcium 9.6 mg/dL ()?? 11/16/2022 06:17 ?? URINE OTHER Est Creatinine Clearance 90.35 mL/min ()?? 11/16/2022 06:56 ? Assessment/Plan Chief Complaint: Pain, redness and swelling of left big toe x 3 weeks ?? Diagnoses Cellulitis of toe of left foot ??(L03.032) HTN (hypertension) ??(I10) History of substance abuse ??(F19.11) Hyperlipidemia ??(E78.5) Major depression, recurrent ??(F33.9) Schizoaffective disorder ??(F25.9) Type 2 diabetes mellitus ??(E11.9) ?62-year-old white male with past medical history of type 2 diabetes mellitus, hypertension, hyperlipidemia, depression, and polysubstance abuse currently on Suboxone here with: ?? Cellulitis of toe of left foot (L03.032):? - involving left big toe -Wound culture growing MRSA -Vancomycin received in ED.?? Thereafter has been on ceftriaxone only. -Resumed vancomycin today.?? Will transition to oral antibiotics tomorrow -Prelim blood culture negative ?? Hyponatremia - he has a h/o chronic hyponatremia and his current??serum sodium is 128 -Sodium improved to 133 today ?? HTN (hypertension) (I10):? - BP control is fair - continue Lisinopril ?? History of substance abuse (F19.11):? - continue Suboxone ?? Hyperlipidemia (E78.5):? - continue Atorvastatin ?? Major depression, recurrent (F33.9):? - continue Seroquel and Zoloft ?? Type 2 diabetes mellitus (E11.9):? - continue Metformin ?? VTE Prophylaxis:? - Lovenox ?? Code Status:? - FULL CODE ?Order Code Status:??Code Status Ordered Note * Amada Thorne RN: PERFORM Event Display: Discharge/Transfer Note Hospital Authored Date: Nursing Discharge Note Entered On: 11/18/2022 16:41 EDT Performed On: 11/18/2022 16:41 EDT by Amada Thorne RN Nursing Discharge Note 2 Discharge Time : 11/18/2022 16:41 EDT Discharge Level of Care at Discharge : Home/[facility] Patient Left Unit Via : Ambulatory Patient Accompanied Off Unit with : Responsible adult DC Instructions Provided & Signed by Pt : Yes Patient Understands D/C Instructions : Yes Patient Instructions Discharge Signed : Yes Did Pt have Specialty Bed or Wound Vac : No Amada Thorne RN - 11/18/2022 16:41 EDT * Abigail Tello MD: PERFORM, MODIFY Event Display: Discharge/Transfer Note Hospital Authored Date: [id number] Patient: ??FABRICIO, KYLE ? Age:??62 Years?Sex:??Male?:??1960?? Patient Information Discharge Location: Med Surg Primary Care Physician: Terrell Long DO Admit Date/Time: 11/14/22 22:26 Discharge Disposition Discharge Disposition: HOme Discharge Diagnosis Cellulitis of toe of left foot (L03.032) Paronychia HTN (hypertension) (I10) History of substance abuse (F19.11) Hyperlipidemia (E78.5) Major depression, recurrent (F33.9) Schizoaffective disorder (F25.9) Type 2 diabetes mellitus (E11.9) ?? _ Discharge Medications Acetaminophen (acetaminophen 325 mg oral tablet)?650?Milligram?By Mouth?Every 4 hours?as needed?for 7?Days?not to exceed 4000 mg/day?Pain , Mild Atorvastatin (atorvastatin 40 mg oral tablet)?1?tab(s)?40?Milligram?By Mouth?Daily?for 90?Days Buprenorphine-Naloxone (buprenorphine-naloxone 2 mg-0.5 mg sublingual film)?2?Film?Sublingual?Daily Buprenorphine-Naloxone (buprenorphine-naloxone 8 mg-2 mg sublingual film)?1?Film?Sublingual?Daily efinaconazole topical (efinaconazole 10% topical solution)?1?gina?Topically?Daily?for48?week(s) Fenofibrate (fenofibrate 54 mg oral tablet)?1?tab(s)?54?Milligram?By Mouth?Daily Ibuprofen (ibuprofen 200 mg oral capsule)?2?capsule?400?Milligram?By Mouth?2 times a day?as needed?for pain Insulin Lispro (insulin lispro 100 units/mL injectable solution)?4-12 units?Subcutaneous Injection?3 times a day before meals?200-250- 4 [id number] 8 [id number] 10 [id number] 12 UNITSGREATER THAN 450 NOTIFY PROVIDER Levofloxacin (levoFLOXacin 750 mg oral tablet)?750?Milligram?By Mouth?Every 24 hours?for 5?Days Lisinopril (lisinopril 5 mg oral tablet)?5?Milligram?1?tablet?By Mouth?Daily Metformin (metFORMIN 500 mg oral tablet)?1?Each?500?Milligram?By Mouth?2 times a day before breakfast and dinne Metoprolol (metoprolol 25 mg oral tablet, extended release)?25?Milligram?1?tablet?ByMouth?Daily?for 90?Days Miconazole Topical (miconazole 2% topical cream)?1?gina?Topically?2 times a day?for 14?Days Oxycodone (oxyCODONE 5 mg oral tablet)?5?Milligram?By Mouth?Every 12 hours?as needed?for 3?Days?Pain , Severe Pantoprazole (pantoprazole 40 mg oral delayed release tablet)?1?tab(s)?40?Milligram?By Mouth?Daily Quetiapine (QUEtiapine 100 mg oral tablet)?100?Milligram?1?tablet?By Mouth?Daily at bedtime Quetiapine (SEROquel 25 mg oral tablet)?50?Milligram?2?tablet?By Mouth?Daily in AM Sertraline (sertraline 50 mg oral tablet)?2?tab(s)?100?Milligram?By Mouth?Daily Sulfamethoxazole/Trimethoprim (trimethoprim-sulfamethoxazole DS)?160?Milligram?By Mouth?2 times a day ? Quality Measures Tobacco Use Treatment:? Medications Started Levaquin Miconazole cream 6 pills of oxycodone 5 mg given at discharge Medications Discontinued None Doses Changed None Allergies Allergies ?(Active and Proposed Allergies Only) Other Environmental Allergy? (Severity: Persistent Mild, Onset: Unknown) ?Reactions: Wool ?Comments: RASH ?Comments: Wool No Known Medication Allergies? (Severity: Unknown severity, Onset: Unknown) ? PCP Follow-Up/Heads-Up Patient treated for cellulitis??of??left toe.?? Growing MRSA.?? Needs follow-up in??1 week??to evaluate for improvement. Hospital Course 62-year-old white male with past medical history of type 2 diabetes mellitus, hypertension, hyperlipidemia, depression, and polysubstance abuse currently on Suboxone here with??severe pain??and redness of??left big toe??worsening??for??3 weeks. ??Patient assumed to be an issue with an ingrown toenail. ??However the pain worsened and he was??prescribed??Bactrim at?? [facility]??where he was residing under [address] at the time of admission.?However the pain??worsened, he??wastherefore??brought to ER. ??Admitted for??management of cellulitis of??left??big toe. ??Initially started on vancomycin and ceftriaxone.??wound culture from nailbed??grew??MRSA. ??Ceftriaxone discontinued.?In hospital, patient has received??2 days of vancomycin. ??He is being discharged on Levaquin??for 5 more days to complete the??7-day course of antibiotic. ??EKG was checked??prior to discharge, QTc is 440.?Patient has been released from??[facility] while??he was in the hospital.?? And he is being discharged home??currently. ? Cellulitis of toe of left foot (L03.032):? - involving left big toe -Wound culture growing MRSA -Initially vancomycin and ceftriaxone.?? He has received 2 days of vancomycin here in hospital. ??Is being discharged on Levaquin??for 5 more days. ?? Hyponatremia - he has a h/o chronic hyponatremia and his current??serum sodium is 128 -Sodium improved to 133 ?? HTN (hypertension) (I10):? - BP control is fair - continue Lisinopril ?? History of substance abuse (F19.11):? - continue Suboxone ?? Hyperlipidemia (E78.5):? - continue Atorvastatin ?? Major depression, recurrent (F33.9):? - continue Seroquel and Zoloft ?? Type 2 diabetes mellitus (E11.9):? - continue Metformin And sliding scale insulin that he takes at home. Needs follow-up??with PCP??for??diabetes management, and??podiatry??for diabetic foot. ?? VTE Prophylaxis:? - Lovenox ?? Code Status:? - FULL CODE ?Order Code Status:??Code Status Ordered Objective Vital Signs?? Temperature: 98.6 DegF (11/18/22 07:51:00) Temperature Route: Oral (11/18/22 07:51:00) Pulse Rate: 83 bpm (11/18/22 07:51:00) Respiratory Rate: 19 br/min (11/18/22 11:43:00) Systolic Blood Pressure: 137 mm Hg (11/18/22 07:51:00) Diastolic Blood Pressure: 79 mm Hg (11/18/22 07:51:00) Blood pressure sites: Arm, right (11/18/22 07:51:00) Mean Arterial Pressure: 98 mm Hg (11/18/22 07:51:00) Pulse Pressure: 58 mm Hg (11/18/22 07:51:00) Oxygen Saturation: 95 % (11/18/22 07:51:00) Liters per Minute: 0 L/min (11/18/22 07:51:00) Mode of Delivery (Oxygen): Room air (11/18/22 07:51:00) Early Warning Score: 2 (11/18/22 11:44:14) ? . Physical Exam General:??Comfortable, speaking in full sentences Heart: S1-S2 heard, rate rhythm regular, no murmurs Lungs: Clear to auscultation bilaterally Abdomen: Soft, nontender, nondistended, bowel sounds present Extremity:??Left big toe??erythematous, improving. ??Swelling improving.?? Less tender on palpation. Pending Results Add On Lab Order ordered on 11/14/2022 Blood Culture ordered on 11/14/2022 Blood Culture #2 ordered on 11/14/2022 Creatinine ordered on 11/18/2022 Follow-Up Appointments Added Follow Up ?Time Frame ?Comments Ethan DO, Terrell?1 week: call to discuss follow up visit Patient Instructions You were treated for paronychia and cellulitis??of??right big toe. ?? Warm soaks??of??2??3-4 times daily,??followed by complete drying of the??toe. ?? Topical miconazole application as??recommended ?? Complete antibiotic course as recommended. ?? Follow-up with your PCP within a week's time ?? You may also need to follow-up with podiatry.?? If needed PCP will refer you. Home Health Face to Face ^HomeHealthFTF Results Discharge Labs BLOOD COUNT & DIFF WBC 5.3 k/mm3 ()?? 11/16/2022 06:17 RBC 4.55 m/mm3 (Low)?? 11/16/2022 06:17 Hgb 12.7 Gm/dL (Low)?? 11/16/2022 06:17 Hct 38.3 % (Low)?? 11/16/2022 06:17 MCV 84.2 femtoliters ()?? 11/16/2022 06:17 MCH 27.9 pg ()?? 11/16/2022 06:17 MCHC 33.2 g/dL ()?? 11/16/2022 06:17 Platelet Count 206 k/mm3 ()?? 11/16/2022 06:17 RDW-SD 41.2 femtoliters ()?? 11/16/2022 06:17 MPV 10.5 femtoliters ()?? 11/16/2022 06:17 Nucleated RBC (Automated) 0.0 #/100 WBC'S ()?? 11/16/2022 06:17 Abs. NRBC 0.0 k/mm3 ()?? 11/16/2022 06:17 Abs. Neut 4.8 k/mm3 ()?? 11/14/2022 16:19 Abs. Lymph 1.5 k/mm3 ()?? 11/14/2022 16:19 Abs. Ector 0.6 k/mm3 ()?? 11/14/2022 16:19 Abs. Eo 0.2 k/mm3 ()?? 11/14/2022 16:19 Abs. Baso 0.1 k/mm3 ()?? 11/14/2022 16:19 Neut % 66.7 % ()?? 11/14/2022 16:19 Lymph % 20.9 % ()?? 11/14/2022 16:19 Ector % 8.8 % ()?? 11/14/2022 16:19 Eos % 2.6 % ()?? 11/14/2022 16:19 Baso % 0.7 % ()?? 11/14/2022 16:19 Imm Gran 0.3 % ()?? 11/14/2022 16:19 Abs. Imm Gran 0.0 k/mm3 ()?? 11/14/2022 16:19 ?? CHEM GENERAL Sodium 133 mmol/L ()?? 11/16/2022 06:17 Potassium 4.5 mmol/L ()?? 11/16/2022 06:17 Chloride 97 mmol/L (Low)?? 11/16/2022 06:17 Bicarbonate Level 27 mmol/L ()?? 11/16/2022 06:17 Anion Gap 9 ()?? 11/16/2022 06:17 Glucose Level 300 mg/dL (High)?? 11/16/2022 06:17 Glucose, POC 257 mg/dL (High)?? 11/18/2022 11:00 BUN 13 mg/dL ()?? 11/16/2022 06:17 Creatinine-Blood 0.7 mg/dL ()?? 11/18/2022 06:13 Estimated GFR Creatinine 105 ML/MIN/1.73 M2 ()?? 11/18/2022 06:13 Calcium 9.6 mg/dL ()?? 11/16/2022 06:17 Protein, Total 7.6 Gm/dL ()?? 11/14/2022 16:19 Albumin 4.4 Gm/dL ()?? 11/14/2022 16:19 Alkaline Phosphatase 89 units/L ()?? 11/14/2022 16:19 AST (SGOT) 40 units/L ()?? 11/14/2022 16:19 ALT (SGPT) 24 units/L ()?? 11/14/2022 16:19 Bilirubin, Total 0.3 mg/dL ()?? 11/14/2022 16:19 Bilirubin, Direct 0.1 mg/dL ()?? 11/14/2022 16:19 Bilirubin, Indirect 0.2 mg/dL ()?? 11/14/2022 16:19 ? HEME OTHER Hold Lavender Top SPECIMEN DISCARDED AFTER 24 HOURS. ()?? 11/18/2022 06:13 Hold Blue Top SPECIMEN DISCARDED AFTER 4 HOURS. ()?? 11/15/2022 09:04 ?? MISC. CHEMISTRY Hold Gel Top SPECIMEN DISCARDED AFTER 1 WEEK ()?? 11/15/2022 09:04 ? URINE OTHER Est Creatinine Clearance 116.16 mL/min ()?? 11/18/2022 07:03 ? VIROLOGY COVID-19 by RT-PCR NEGATIVE ()?? 11/14/2022 17:00 ? Microbiology ?? COVID-19 (Novel Coronavirus), Rapid PCR?? Completed?? Source: Nasal Body Site: Nose Collected Dt/Tm: 11/14/2022 16:37 Last Updated Dt/Tm: 11/14/2022 17:48 ? _ minutes spent on discharge * Shanon CASTELLANOS, Airam R: PERFORM Event Display: Patient Education/Instruction Authored Date: [id number] Inpatient Adult Discharge Instructions [address] [address] Name: KYLE REGALADO : 1960 Visit: 11/14/2022 22:26:00 Current Date: 11/18/2022 13:31 Account: [id number] Inpatient Adult Discharge Instructions We would like [...] and their families. Surveys are administered by [employer] ?? If further treatment with your primary care physician or another doctor is recommended, it is important for you to keep the appointment. Call your primary care physician or return to the Emergency Department immediately if your condition worsens, fails to improve, or new symptoms develop. If you need to find a doctor, you can call [facility] for a referral at [phone] or toll free at [phone] or log in to [email or web address] ?? You can view and manage your care through the patient portal or by using a health care gina of your choosing. Headroom is a website that allows you to securely view your medical information including your hospital discharge summary, office visit summaries, medications and follow-up visits. You can also request appointments, renew medications, and request access to your medical information using a health care gina of your choosing, or just ask a question. You can enroll at [email or web address] or register during your next office visit. You have been discharged from [facility], Patient Care Unit: Med Surg. If you have any questions regarding these instructions after you leave, please call us and we will be happy to assist you. [facility] Your Care Team Attending Physician Omer DOWNING, Abigail Consulting Providers Cathy AQUINO, Beatrice Snell; Ambika Trinh MD Discharging Providers Abigail Tello MD Reason for Admission Pain, redness and swelling of left big toe x 3 weeks Your Diagnosis Cellulitis of toe of left foot Type 2 diabetes mellitus History of substance abuse Hyperlipidemia HTN (hypertension) Schizoaffective disorder Major depression, recurrent Tests Performed Below is a partial list of the tests performed during your hospitalization. You may have had other tests and procedures not included in this list. Please discuss all test results with your provider. Basic Metabolic Panel CBC CBC w/ Differential COVID-19 (Novel Coronavirus), Rapid PCR GLUCOSE POC Hepatic Function Panel HOLD BLUE TUBE HOLD GEL TUBE HOLD LAVENDER TUBE XR Toe Great Left Foot Primary Care Provider Terrell Long DO [facility] Proxy on File No Patient refuses to discuss Discharge Vitals Temperature: 98.6 DegF Height: 178 cm Pulse Rate: 83 bpm Weight: 83.6 kg Respiratory Rate: 19 br/min Body Mass Index:??26.39 kg/m2??High Systolic Blood Pressure: 137 mm Hg Body surface area: 2.03 Diastolic Blood Pressure: 79 mm Hg ?? Oxygen Saturation: 95 % ?? Studies Pending All tests and labs ordered during this hospital stay have been completed unless listed below. Please discuss all pending results with your provider listed above in these instructions. ?? Add On Lab Order Blood Culture Blood Culture #2 Creatinine What to do next Instructions From Your Doctor You were treated for paronychia and cellulitis??of??left big toe. ?? Warm soaks??of??toe??3-4 times daily,??followed by complete drying of the??toe. ?? Topical miconazole application as??recommended ?? Complete antibiotic course as recommended. ?? Follow-up with your PCP within a week's time ?? You may also need to follow-up with podiatry.?? If needed PCP will refer you. Discharge Orders You Need to Schedule the Following Appointments Follow Up with??Terrell Long DO When:??Within 1 week: call to discuss follow up visit Where: [address] [place] [id number]- Discharge Medications KYLE REGALADO :1960 Visit Date:11/14/2022 Medications: Please continue your medications until treatment is completed or stopped by your provider. Medications not listed below should be discontinued. Discuss any questions related to medications with your provider. What How Much When Why Instructions Next Dose New Acetaminophen (acetaminophen 325 mg oral tablet) 650 Milligram Oral Every 4 hours as needed for Pain , Mild Duration: 7 Days not to exceed 4000 mg/ day ?? Printed Prescription as needed New efinaconazole topical (efinaconazole 10% topical solution) 1 gina Topically Daily Duration: 48 week(s) Printed Prescription tomorrow am New Levofloxacin (levoFLOXacin 750 mg oral tablet) 750 Milligram Oral Every 24 hours Duration: 5 Days Pickup at [facility] #[id number] tomorrow 1pm New Miconazole Topical (miconazole 2% topical cream) 1 gina Topically Twice a day Duration: 14 Days Pickup at [facility] #[id number] tonight New Oxycodone (oxyCODONE 5 mg oral tablet) 5 Milligram Oral Every 12 hours as needed for Pain , Severe Duration: 3 Days Pickup at [facility] #[id number] 1130pm ??tonight Changed Buprenorphine-Naloxone (buprenorphine-naloxone 2 mg-0.5 mg sublingual film) 2 Film Sublingual Daily tomorrow am Changed Buprenorphine-Naloxone (buprenorphine-naloxone 8 mg-2 mg sublingual film) 1 Film Sublingual Daily tomorrow am Changed Insulin Lispro (insulin lispro 100 units/ mL injectable solution) 4-12 units Subcutaneous Injection 3 times a day before meals 200-250- 4 UNITS 251-300 6 UNITS 301-350 8 UNITS 351-400 10 UNITS 401-450 12 UNITS GREATER THAN 450 NOTIFY PROVIDER ?? at supper meal Changed Sertraline (sertraline 50 mg oral tablet) 2 tab(s) Oral Daily tomorrow am Unchanged Atorvastatin (atorvastatin 40 mg oral tablet) 1 tab(s) Oral Daily Hyperlipidemia Duration: 90 Days tomorrow am Unchanged Fenofibrate (fenofibrate 54 mg oral tablet) 1 tab(s) Oral Daily tomorrow am Unchanged Ibuprofen (ibuprofen 200 mg oral capsule) 2 capsule Oral Twice a day as needed for for pain as needed Unchanged Lisinopril (lisinopril 5 mg oral tablet) 1 tab(s) Oral Daily tomorrow am Unchanged Metformin (metFORMIN 500 mg oral tablet) 1 Each Oral 2 times a day before breakfast and dinner before dinner Unchanged Metoprolol (metoprolol 25 mg oral tablet, extended release) 1 tab(s) Oral Daily HTN (hypertension) Duration: 90 Days tomorrow am Unchanged Pantoprazole (pantoprazole 40 mg oral delayed release tablet) 1 tab(s) Oral Daily tomorrow am Unchanged Quetiapine (QUEtiapine 100 mg oral tablet) 1 tab(s) Oral Daily at Bedtime Schizoaffective disorder Major depression, recurrent at bedtime Unchanged Quetiapine (SEROquel 25 mg oral tablet) 2 tab(s) Oral Daily in the morning tomorrow am Unchanged Sulfamethoxazole/ Trimethoprim (trimethoprim-sulfamethoxazole DS) 160 Milligram Oral Twice a day [facility] Pharm[facility] Information [facility] #[id number]: [address], [place] [id number] [phone] ?? What How Much When Comments Stop Taking Albuterol/ Ipratropium (Combivent Respimat 20 mcg-100 mcg/ inh inhalation aerosol) 1 puff(s) Inhalation 4 times a day as needed for Wheezing/Shortness of Breath Stop Taking Cyclobenzaprine (cyclobenzaprine 10 mg oral tablet) 1 tab(s) Oral 3 times a day Stop Taking Durable Medical Equipment (FREESTYLE FREEDOM LITE KIT) USE DIRECTED ?? Stop Taking Durable Medical Equipment (Freestyle Lite Lancets) See instructions Duration: 30 Days use as directed for Type 2 Diabetes Mellitus test 2x daily ?? Stop Taking Durable Medical Equipment (Freestyle Lite Test Strips) See instructions Duration: 30 Days use as directed for Type 2 Diabetes Mellitus to test 2x ??daily ?? Stop Taking Durable Medical Equipment (Wheelchair) See instructions Electric wheelchair ?? DX: M17.0 (not knee replacement candidate) ?? Stop Taking HydrOXYzine (hydrOXYzine pamoate 25 mg oral capsule) 2 capsule Oral Every 6 hours as needed for Anxiety Stop Taking Nicotine (Nicotine 2 mg gum) 2 Milligram Chew Every 15 minutes as needed for Other cigarette craving ?? Stop Taking Omeprazole (omeprazole 40 mg oral enteric coated capsule) 1 capsule Oral Daily Stop Taking Trazodone (traZODone 50 mg oral tablet) 1 tab(s) Oral Daily at Bedtime as needed for Insomnia Stop Taking Varenicline (chantix 0.5mg tablet) 1 tab(s) Oral Daily Test Results Below is a partial list of the most recent Laboratory test results done prior to this discharge. You may have had other tests and procedures not included in this list. Please discuss all test resultswith your provider. Est Creatinine Clearance - 116.16 mL/min (11/18/2022) Basic Metabolic Panel (11/16/2022) ???Sodium - 133 mmol/L???Potassium - 4.5 mmol/L???Chloride - 97 mmol/L???Bicarbonate Level - 27 mmol/L???Anion Gap - 9???Glucose Level - 300 mg/dL???BUN - 13 mg/dL???Creatinine-Blood - 0.9 mg/dL???Estimated GFR Creatinine - 98 ML/MIN/1.73 M2???Calcium - 9.6 mg/dL CBC (11/16/2022) ???WBC - 5.3 k/mm3???RBC - 4.55 m/mm3???Hgb - 12.7 Gm/dL???Hct - 38.3 %???MCV - 84.2 femtoliters???MCH - 27.9 pg???MCHC - 33.2 g/dL???Platelet Count - 206 k/mm3???RDW-SD - 41.2 femtoliters???MPV - 10.5 femtoliters???Nucleated RBC (Automated) - 0.0 #/100 WBC'S???Abs. NRBC - 0.0 k/mm3 CBC w/ Differential (11/14/2022) ???WBC - 7.2 k/mm3???RBC - 4.53 m/mm3???Hgb - 12.7 Gm/dL???Hct - 37.6 %???MCV - 83.0 femtoliters???MCH - 28.0 pg???MCHC - 33.8 g/dL???Platelet Count - 217 k/mm3???RDW-SD - 40.5 femtoliters???MPV - 10.3 femtoliters???Nucleated RBC (Automated) - 0.0 #/100 WBC'S???Abs. NRBC - 0.0 k/mm3???Abs. Neut - 4.8 k/mm3???Abs. Lymph - 1.5 k/mm3???Abs. Ector - 0.6 k/mm3???Abs. Eo - 0.2 k/mm3???Abs. Baso - 0.1 k/mm3???Neut % - 66.7 %???Lymph % - 20.9 %???Ector % - 8.8 %???Eos % - 2.6 %???Baso % - 0.7 %???Imm Gran - 0.3 %???Abs. Imm Gran - 0.0 k/mm3 COVID-19 (Novel Coronavirus), Rapid PCR (11/14/2022) ???COVID-19 by RT-PCR - NEGATIVE GLUCOSE POC (11/18/2022) ???Glucose, POC - 257 mg/dL Hepatic Function Panel (11/14/2022) ???Protein, Total - 7.6 Gm/dL???Albumin - 4.4 Gm/dL???Alkaline Phosphatase - 89 units/L???AST (SGOT) - 40 units/L???ALT (SGPT) - 24 units/L???Bilirubin, Total - 0.3 mg/dL???Bilirubin, Direct - 0.1 mg/dL???Bilirubin, Indirect - 0.2 mg/dL HOLD BLUE TUBE (11/15/2022) ???Hold Blue Top - SPECIMEN DISCARDED AFTER 4 HOURS. HOLD GEL TUBE (11/15/2022) ???Hold Gel Top - SPECIMEN DISCARDED AFTER 1 WEEK HOLD LAVENDER TUBE (11/18/2022) ???Hold Lavender Top - SPECIMEN DISCARDED AFTER 24 HOURS. Allergies (NKA means No Known Allergies) Other [...] Belongings I fully understand and agree that [facility] accepts no responsibility for all my [...] to send valuables and belongings home. ?? Review of Valuable and Belonging List: With patient Date for Pt to Sign Valuables/Belongings: 11/15/22 18:50:00 ?? Other Discharge Information ?? Wound Assessment?? Wound Assessment?? Wound Location I: Great toe, left Wound Type I: Diabetic Wound I, Present on Admission: Yes ? Pulmonary Rehab Status?? Pulmonary Rehab Discharge Status?? Respiratory Rate: 19 br/min ? Common Emergency Awareness Tips IS [...] are strongly encouraged to quit. Please call [employer] [facility] at [phone] or [phone] ([phone]) or log in to [email or web address] for referrals to smoking cessation programs. ?? 988 Suicide & Crisis Lifeline is available 24/7 if you or someone you know needs to find a reason to keep living. By calling 988 you'll be connected to a skilled, trained counselor at a crisis center in your area. INPATIENT DISCHARGE INSTRUCTIONS SIGNATURE PAGE KYLE REGALADO Location:[facility] Registration Date and Time:11/14/2022 22:26 EDT Primary Care Physician: Terrell Long DO, Attending Physician: Abigail Tello MD, I KYLE REGALADO, have received the above patient education materials/instructions and have verbalizedunderstanding. If ambulance or transport services are being used I further acknowledge being given a choice of service. ?? If you need to contact me, please call me at this number: . Patient/Award Clerk Name: Patient/Award Clerk Signature: Relationship to Patient: Witness Name/Signature: Date: Patient Care team information Care Team Personnel Name: Isa Lake RN Position: [facility] RN Member Role: Primary Care Nurse Name: Janet Moreno LPN Position: [facility] RN Member Role: Primary Care Nurse Name: Luis Armando Alford RN Position: [facility] RN Member Role: Primary Care Nurse Name: Gaye Motley RN Position: [facility] RN Member Role: Primary Care Nurse Name: Parvin Kim Position: [facility] RN Member Role: Primary Care Nurse Name: Stormy Mccray RN Position: [facility] RN Member Role: Primary Care Nurse Name: Terrell Long DO Position: [facility] Physician - Primary Care Member Role: PCP Address: Address: [address] [place] [id number] Name: Nara Bruno RN Position: [facility] RN Member Role: Primary Care Nurse Name: Sepideh East RN Position: [facility] RN Member Role: Primary Care Nurse Name: Edward GALVAN Attending Position: [facility] ED Medicine MD Name: Rosalinda Young Position: [facility] ED [facility] Member Role: ED Associate Name: Ronen Griffin RN Position: [facility] ED RN W/OE and Tasks Member Role: Patient Care Provider Name: Carleen Garrett Position: [facility] ED [facility] Member Role: Network Engineer Care Team Related Persons Name: NAZ WEINER
--- OUTSIDE RECORDS SUMMARY | 2023-07-31 11:56 | XMS_ITS | Continuity of Care Document ---
Author Organization [facility] Address [address] [place] [address]- Care Team Providers Care Wire Tinner Name Role Phone Glenn AQUINO, Danielle Primary Care Physician [phone] [place] [facility] [place] 03/[place] [facility] [address] [place] [address]- Encounter Diagnosis Major depression, recurrent(Discharge Diagnosis) - 02/07/21 Schizoaffective disorder(Discharge Diagnosis) - 02/07/21 Allergies, Adverse Reactions, Alerts No Known Medication Allergies Substance Reaction Severity Status Other Environmental Allergy 1 Active 1Wool Medications atorvastatin 40 mg oral tablet 1 tablet = 40 mg, By Mouth, Daily, # 90 tablet, 1 Refills, Maintenance, 11/20/20 10:30:00 EDT, Tablet, [facility] #[id number], 172, cm, 08/01/20 13:59:00 EDT, Height Start Date: 11/20/20 Stop Date: 05/19/21 Status: Ordered Combivent Respimat 20 mcg-100 mcg/inh inhalation aerosol 1 puffs, Inhalation, 4 times a day, PRN Wheezing/Shortness of Breath, # 1 each, 3 Refills, Maintenance, 06/13/20 15:39:00 EST, Aerosol, [facility]/pharmacy #[id number], Partial fill upon patient request if the prescription is for a schedule II opioid drug., 1 puff... Start Date: 06/13/20 Status: Ordered duloxetine 30 mg oral enteric coated capsule 1 capsule, By Mouth, Daily, # 90 capsule, 0 Refills, Maintenance, 02/07/21 16:12:00 EDT, [facility] #[id number], 172, cm, 08/01/20 13:59:00 EDT, Height Start Date: 02/07/21 Stop Date: 05/08/21 Status: Ordered gabapentin 300 mg oral capsule 600 mg, 2, capsule, By Mouth, 3 times a day, PLEASE CALL OFFICE FOR RESCHEDULE APPT., # 180 capsule, Refills 2, Tot. Refills 2, Maintenance, 12/11/20 15:07:00 EDT, Route to Pharmacy Electronically, [facility] #[id number], 172, cm, 08/01/20 13:59:... Start Date: 12/11/20 Stop Date: 03/11/21 Status: Ordered lisinopril 20 mg oral tablet 1, tablet, By Mouth, Daily, # 30 tablet, Refills 5, Route to Pharmacy Electronically, [facility] #[id number], 175, cm, 02/14/21 20:23:00 EDT, Height, 77.5, kg, 02/14/21 20:23:00 EDT, Dry Weight Start Date: 02/23/21 Status: Ordered metFORMIN 750 mg oral tablet, extended release 1 tablet = 750 mg, By Mouth, 2 times a day, Call for appt SWAPNIL before next refill with food, # 60 tablet, 1 Refills, Maintenance, 02/08/21 9:48:00 EDT, ER Tablet, [facility] #[id number], Partialfill upon patient request if the prescription is... Start Date: 02/08/21 Stop Date: 08/07/21 Status: Ordered metoprolol 25 mg oral tablet, extended release 25 mg, 1, tablet, By Mouth, Daily, # 90 tablet, Refills 1, Tot. Refills 1, Maintenance, 10/19/20 15:29:00 EDT, Route to Pharmacy Electronically, [facility] #[id number], 172, cm, 08/01/20 13:59:00 EDT, Height Start [...] 02/08/21 9:46:00 EDT, Route to Pharmacy Electronically, [facility] #[id number], 172, cm, 08/01/20 13:59:00 EDT, Height Start Date: 02/08/21 Status: Ordered QUEtiapine 100 mg oral tablet See Instructions, TAKE 1 TABLET BY MOUTH DAILY BLOODWORK AND APPOINTMENT NEEDED, # 30 tablet, Refills 0, Instructions Replace Required Details, Route to Pharmacy Electronically, [facility] #[id number], 172, cm, 08/01/20 13:59:00 EDT, Height Start [...] Effective Dates Health Status Clinical Service Informant Major depression, recurrent Discharge Diagnosis 02/07/21 Non-Specified Schizoaffective disorder Discharge Diagnosis 02/07/21 Non-Specified Social History Social History Type Response Smoking Status 10 or more cigarette s (1/2 pack or more)/day in last 30 days; Other: about 2.5 ppd; entered on: 02/28/19 Sex
--- OUTSIDE RECORDS SUMMARY | 2023-07-31 11:56 | XMS_ITS | Continuity of Care Document ---
Author Organization [facility] Address [address] [place] [address]- Care Team Providers Care Patient Assistant Name Role Phone Lucho Cardona DO Primary Care Physician [place] [facility] [id number] Date(s): 11/28/19 - 12/31/19 [facility] [address] [place] [address]- [facility] Attending Physician: Lucho Cardona DO Allergies, [...] 1 Refills, Maintenance, 11/10/19 15:07:00 EDT, Tablet, [facility]/pharmacy #[id number], 172, cm, 06/30/19 7:54:00 EST, Height Start Date: 11/10/19 Status: Ordered duloxetine 30 mg oral enteric coated capsule 1 capsule, By Mouth, Daily, # 30 capsule, 3 Refills, Maintenance, 10/17/19 11:08:00 EDT, [email or web address], 172, cm, 06/30/19 7:54:00 EST, Height Start Date: 10/17/19 Status: Ordered gabapentin 300 mg oral capsule 1, capsule, By Mouth, 3 times a day, # 90 capsule, Refills 2, Tot. Refills 0, Maintenance, 10/16/2010:08:00 EDT, Route to Pharmacy Electronically, [email or web address], 172, cm, 06/30/19 7:54:00 EST, Height Start Date: 10/17/19 Status: Ordered lisinopril 5 mg oral tablet 5 mg, 1, tablet, By Mouth, Daily, # 90 tablet, Refills 0, Tot. Refills 0, Maintenance, 11/10/19 15:07:00 EDT, Route to Pharmacy Electronically, [facility]/pharmacy #[id number], 172, cm, 06/30/19 7:54:00 EST, Height Start Date: 11/10/19 Status: Ordered meloxicam 15 mg oral tablet See Instructions, TAKE 1 TABLET BY MOUTH EVERY DAY, # 30 tablet, 3 Refills, Maintenance, [facility], 172, cm, 06/30/19 7:54:00 EST, Height Start Date: 09/22/19 Status: Ordered meloxicam 15 mg oral tablet See Instructions, TAKE 1 TABLET BY MOUTH EVERY DAY, # 30 tablet, 3 Refills, Maintenance, [email or web address], 172, cm, 06/30/19 7:54:00 EST, Height Start Date: 09/22/19 Status: Ordered metoprolol 25 mg oral tablet, extended release 50 mg, 2, tablet, By Mouth, Daily, # 180 tablet, Refills 0, Tot. Refills 0, Maintenance, 12/30/19 16:08:00 EDT, Route to Pharmacy Electronically, [facility]/pharmacy #[id number], 172, cm, 12/01/19 14:10:00 EDT, [...] 11/10/19 15:07:00 EDT, Route to Pharmacy Electronically, [facility]/pharmacy #[id number], 172, cm, 06/30/19 7:54:00 EST, Height Start Date: 11/10/19 Status: Ordered Problem List Condition Effective Dates Status Health Status Inform ant HTN (hypertension)(Confirmed) Active OA (osteoarthritis)(Confirmed) Active Schizoaffective disorder(Confirmed) Active Vital Signs Most recent to oldest [Reference Range]: 1 Height 172 cm (8/6/20 2:10 PM) Social History Social History Type Response Smoking Status 10 or more cigarette s (1/2 pack or more)/day in last 30 days; Other: about 2.5 ppd; entered on: 02/28/19 Sex
--- OUTSIDE RECORDS SUMMARY | 2023-07-31 11:56 | XMS_ITS | Continuity of Care Document ---
Author Organization [facility] Address [address] [place] [address]- Care Team Providers Care Picture Copyist Name Role Phone Lucho Cardona DO Primary Care Physician [phone] [place] [facility] [place]/28/19 [place] 04/14/19 [facility] [address] [place] [address] Attending Physician: Lucho Cardona DO Allergies, Adverse [...] 03/25/19 16:00:32 EST, Route to Pharmacy Electronically, [id number], [id number] Start Date: 03/25/19 Status: Ordered ibuprofen 600 mg oral tablet 600 mg, 1, tablet, By Mouth, 3 times a day, PRN, for 30 days, # 90 tablet, Refills 1, Tot. Refills 1, Acute 05/24/19 15:59:57 EST, Pain , Moderate, 03/25/19 15:59:57 EST, Route to Pharmacy Electronically, [id number], [facility]/phar... Start Date: 03/25/19 Stop Date: 05/24/19 Status: Ordered lisinopril 5 mg oral tablet 5 mg, 1, tablet, By Mouth, Daily, # 30 tablet, Refills 5, Tot. Refills 5, Maintenance, 03/25/19 15:59:32 EST, Route to Pharmacy Electronically, [id number], [facility]/pharmacy #[id number] Start Date: 03/25/19 Status: Ordered metoprolol 25 mg oral tablet, extended release 25 mg, 1, tablet, By Mouth, Daily, # 30 tablet, Refills 0, Tot. Refills 0, Maintenance, 04/11/19 13:46:28 EST, Route to Pharmacy Electronically, [facility]/pharmacy #[id number], 172, cm, 04/11/19 13:08:04 EST, Height Start Date: 04/11/19 Status: Ordered QUEtiapine 100 mg oral tablet 100 mg, 1, tablet, By Mouth, Daily, # 30 tablet, Refills 1, Tot. Refills 1, Maintenance, 04/11/19 13:46:18 EST, Route to Pharmacy Electronically, [facility]/pharmacy #[id number], 172, cm, 04/11/19 13:08:04 EST, Height Start Date: 04/11/19 Status: Ordered Problem List Condition Effective Dates Status Health Status Inform ant HTN (hypertension)(Confirmed) Active Schizoaffective disorder(Confirmed) Active Social History Social History Type Response Smoking Status 10 or more cigarette s (1/2 pack or more)/day in last 30 days; Other: about 2.5 ppd; entered on: 02/28/19 Sex
--- OUTSIDE RECORDS SUMMARY | 2023-07-31 11:56 | XMS_ITS | Continuity of Care Document ---
Author Organization [facility] Address [address] [place] [address]- Care Team Providers Care Merit System Director Name Role Phone Imani AQUINO, Beatrice Carbajal Primary Care Physician [place] [facility] [place] Date(s): 08/19/21 - 09/18/21 [facility] [address] [place] [address]- Encounter Diagnosis HTN (hypertension)(Discharge Diagnosis) - 07/16/20 [...] 1 Refills, Maintenance, 11/20/20 10:30:00 EDT, Tablet, [facility] #[id number], 172, cm, 08/01/20 13:59:00 EDT, Height Start Date: 11/20/20 Stop Date: 05/19/21 Status: Ordered Combivent Respimat 20 mcg-100 mcg/inh inhalation aerosol 1 puffs, Inhalation, 4 times a day, PRN Wheezing/Shortness of Breath, # 1 each, 3 Refills, Maintenance, 06/13/20 15:39:00 EST, [facility]erosol, [id number], Partial fill upon patient request if the prescription is for a schedule II opioid drug., 1 puff... Start Date: 06/13/20 Status: Ordered duloxetine 30 mg oral enteric coated capsule 1 capsule, By Mouth, Daily, # 90 capsule, 0 Refills, Maintenance, 02/07/21 16:12:00 EDT, [facility] #[id number], 172, cm, 08/01/20 13:59:00 EDT, Height Start Date: 02/07/21 Stop Date: 05/08/21 Status: Ordered fenofibrate 54 mg oral tablet 1 tablet = 54 mg, By Mouth, Daily, # 30 tablet, 0 Refills, Maintenance, 05/10/21 11:35:00 EST, [facility] #21347, Partial fill upon patient request if the [...] 05/29/21 13:15:00 EST, Route to Pharmacy Electronically, [facility] #35536, 175, cm, 02/14/21 20:23:... Start Date: 05/29/21 Stop Date: 06/28/21 Status: Ordered lisinopril 20 mg oral tablet 1, tablet, By Mouth, Daily, # 30 tablet, Refills 5, Route to Pharmacy Electronically, [facility] #[id number], 175, cm, 02/14/21 20:23:00 EDT, Height, 77.5, kg, 02/14/21 20:23:00 EDT, Dry Weight Start Date: 02/23/21 Status: Ordered MetFORMIN (Eqv-Glucophage XR) 500 mg oral tablet, extended release 2 tablet = 1,000 mg, By Mouth, 2 times a day, # 120 tablet, 3 Refills, Maintenance, 04/15/21 15:52:00 EST, [facility] #[id number], Partial fill upon patient request if the prescription is for a schedule II opioid drug., 175, cm, 02/14/21 20:23:00... Start Date: 04/15/21 Stop Date: 08/13/21 Status: Ordered metFORMIN 500 mg oral tablet, extended release 2 tablet = 1,000 mg, By Mouth, Daily, # 60 tablet, 0 Refills, Maintenance, 04/11/21 12:42:00 EST, [facility] #05953, Partial fill upon patient request if the [...] Refills, Maintenance, 02/08/21 9:48:00 EDT, ER Tablet, [facility] #25890, Partialfill upon patient request if the prescription is... Start Date: 02/08/21 Stop Date: 08/07/21 Status: Ordered metoprolol 25 mg oral tablet, extended release 25 mg, 1, tablet, By Mouth, Daily, # 90 tablet, Refills 0, Tot. Refills 0, Maintenance, 05/10/21 11:34:00 EST, Route to Pharmacy Electronically, [facility] #[id number], 175, cm, 02/14/21 20:23:00 EDT, Height, 77.5, kg, 02/14/21 20:23:00 EDT, Dry... Start Date: 05/10/21 Status: Ordered metoprolol 25 mg oral tablet, extended release 25 mg, 1, tablet, By Mouth, Daily, # 90 tablet, Refills 1, Tot. Refills 1, Maintenance, 10/19/20 15:29:00 EDT, Route to Pharmacy Electronically, [facility] #[id number], 172, cm, 08/01/20 13:59:00 EDT, Height Start Date: 10/19/20 Stop Date: 04/17/21 Status: Ordered omeprazole 40 mg oral enteric coated capsule 1 capsule = 40 mg, By Mouth, Daily, # 90 capsule, 0 Refills, Maintenance, 04/24/21 14:31:00 EST, ECCapsule, [facility] #74565, Partial fill upon patient request if the prescription is for a schedule II opioid drug., 175, cm, 02/14/21 20:23:... Start Date: 04/24/21 Status: Ordered QUEtiapine 100 mg oral tablet 1, tablet, By Mouth, Daily, bloodwork and appt needed, # 30 tablet, Refills 1, Tot. Refills 1, Maintenance, 02/08/21 9:46:00 EDT, Route to Pharmacy Electronically, [facility] #32746, 172, cm, 08/01/20 13:59:00 EDT, Height Start Date: 02/08/21 Status: Ordered QUEtiapine 100 mg oral tablet See Instructions, TAKE 1 TABLET BY MOUTH DAILY BLOODWORK AND APPOINTMENT NEEDED, # 30 tablet, Refills 0, Tot. Refills 0, 05/29/21 13:15:00 EST, Instructions Replace Required Details, Route to Pharmacy Electronically, [facility] #[id number], 175,... Start Date: 05/29/21 Status: Ordered Suboxone [...] 05/10/21 11:34:00 EST, Route to Pharmacy Electronically, [facility] #[id number], Partial fill uponpatient request if the prescription [...]
--- OUTSIDE RECORDS SUMMARY | 2023-07-31 11:56 | XMS_ITS | Continuity of Care Document ---
Author Organization [facility] Address [address] [place] [address]- Care Team Providers Care Party Plan Dealer Name Role Phone Glenn AQUINO, Danielle Primary Care Physician Encounter [facility] [place] [place] Date(s): 05/11/20 - 06/10/20 [facility] [address] [place] [address]- Allergies, Adverse Reactions, Alerts No Known Medication Allergies Substance Reaction Severity Status Other Environmental Allergy 1 Active 1Wool Medications atorvastatin 40 mg oral tablet 1 tablet = 40 mg, By Mouth, Daily, # 90 tablet, 1 Refills, Maintenance, 05/24/20 10:30:00 EST, Tablet, [facility]/pharmacy #[id number], 172, cm, 05/17/20 13:12:00 EST, Height Start Date: 05/24/20 Stop Date: 11/20/20 Status: Ordered duloxetine 30 mg oral enteric coated capsule 1 capsule, By Mouth, Daily, # 90 capsule, 0 Refills, Maintenance, 04/09/20 15:40:00 EST, [facility]/pharmacy #[id number], 172, cm, 04/09/20 13:00:00 EST, Height Start Date: 04/09/20 Stop Date: 07/08/20 Status: Ordered gabapentin 300 mg oral capsule 1, capsule, By Mouth, 3 times a day, # 270 capsule, Refills 0, Tot. Refills 0, Maintenance, 04/09/20 15:39:00 EST, Route to Pharmacy Electronically, [facility]/pharmacy #[id number], 172, cm, 04/09/20 13:00:00 EST, Height Start Date: 04/09/20 Stop Date: 07/08/20 Status: Ordered lisinopril 5 mg oral tablet 5 mg, 1, tablet, By Mouth, Daily, # 90 tablet, Refills 0, Tot. Refills 0, Maintenance, 04/09/20 15:38:00 EST, Route to Pharmacy Electronically, [facility]/pharmacy #[id number], 172, cm, 04/09/20 13:00:00 EST, Height Start Date: 04/09/20 Stop Date: 07/08/20 Status: Ordered metFORMIN 750 mg oral tablet, extended release 1 tablet = 750 mg, By Mouth, Daily, with evening meal, # 90 tablet, 1 Refills, Maintenance, 05/18/20 11:14:00 EST, ER Tablet, [facility]/pharmacy #[id number], Partial fill upon patient request if the prescriptionis for a schedule II opioid drug., 172, cm, ... Start Date: 05/18/20 Stop Date: 11/14/20 Status: Ordered metoprolol 25 mg oral tablet, extended release 25 mg, 1, tablet, By Mouth, Daily, # 90 tablet, Refills 0, Tot. Refills 0, Maintenance, 04/09/20 15:37:00 EST, [facility], 172, cm, 04/09/20 13:00:00 EST, Height [...] 15:39:00 EST, Route to Pharmacy Electronically, [facility]/pharmacy #[id number], 172, cm, 04/09/20 13:00:00 EST, [...] Acute07/08/20 15:41:00 EDT, 04/09/20 15:41:00 EST, [facility]/pharmacy #[id number], Partial fill upon patient requestif the prescription [...]
--- OUTSIDE RECORDS SUMMARY | 2023-07-31 11:56 | XMS_ITS | Continuity of Care Document ---
Author Organization [facility] Address [address] [place] [address]- Care Team Providers Care Radio Script Writer Name Role Phone Lucho Cardona DO Primary Care Physician Encounter [facility] [place] Date(s): 06/30/19 - 07/10/19 [facility] [address] [place] [address]- [facility] Attending Physician: AdmDwight [email or web address] Admitting Physician: [...] 5 Refills, Maintenance, 05/09/19 10:34:00 EST, Tablet, [facility]/pharmacy #0447, 172, cm, 05/09/19 10:09:00 EST, Height Start Date: 05/09/19 Status: Ordered duloxetine 30 mg oral enteric coated capsule 1 capsule, By Mouth, Daily, # 30 capsule, 3 Refills, Maintenance, 06/20/19 7:54:00 EST, [facility], 172, cm, 06/02/19 8:30:00 EST, Height Start Date: 06/20/19 Status: Ordered gabapentin 300 mg oral capsule 1, capsule, By Mouth, 3 times a day, # 90 capsule, Refills 2, Tot. Refills 0, Maintenance, 207:54:00 EST, Route to Pharmacy Electronically, [facility], 172, cm, 06/02/19 8:30:00 EST, Height Start Date: 06/20/19 Status: Ordered lisinopril 5 mg oral tablet 5 mg, 1, tablet, By Mouth, Daily, # 30 tablet, Refills 5, Tot. Refills 5, Maintenance, 05/09/19 10:34:00 EST, Route to Pharmacy Electronically, [facility]/pharmacy #0447, 172, cm, 05/09/19 10:09:00 EST, Height Start Date: 05/09/19 Status: Ordered meloxicam 15 mg oral tablet 1 tablet = 15 mg, By Mouth, Daily, # 30 tablet, 0 Refills, Maintenance, 06/30/19 8:23:00 EST, Tablet, [facility]/pharmacy #0447, 172, cm, 06/30/19 7:54:00 EST, Height Start Date: 06/30/19 Status: Ordered metoprolol 25 mg oral tablet, extended release 25 mg, 1, tablet, By Mouth, Daily, # 30 tablet, Refills 5, Tot. Refills 5, Maintenance, 05/09/19 10:34:00 EST, [facility], 172, cm, 05/09/19 10:09:00 EST, Height Start Date: 05/09/19 Status: Ordered QUEtiapine 100 mg oral tablet 1, tablet, By Mouth, Daily, # 30 tablet, Refills 1, Tot. Refills 0, Maintenance, 06/20/19 7:54:00 EST, Route to Pharmacy Electronically, [facility] 78531, 172, cm, 06/02/19 8:30:00 EST, Height Start [...]
--- OUTSIDE RECORDS SUMMARY | 2023-07-31 11:56 | XMS_ITS | Continuity of Care Document ---
Author Organization [facility] Address [address] [place] [address]- Care Team Providers Care Radiator Core Tester Name Role Phone Imani AQUINO, Beatrice Carbajal Primary Care Physician Encounter [facility] Date(s): 07/10/21 - 08/09/21 [facility] [address] [place] [address]- Allergies, Adverse Reactions, Alerts No Known Medication Allergies Substance Reaction Severity Status Other Environmental Allergy 1 Active 1Wool Medications atorvastatin 40 mg oral tablet 1 tablet = 40 mg, By Mouth, Daily, # 90 tablet, 1 Refills, Maintenance, 11/20/20 10:30:00 EDT, Tablet, [facility] #[id number], 172, cm, 08/01/20 13:59:00 EDT, Height Start Date: 11/20/20 Stop Date: 05/19/21 Status: Ordered Combivent Respimat 20 mcg-100 mcg/inh inhalation aerosol 1 puffs, Inhalation, 4 times a day, PRN Wheezing/Shortness of Breath, # 1 each, 3 Refills, Maintenance, 06/13/20 15:39:00 EST, Aerosol, [facility]/pharmacy #[id number], Partial fill upon patient request if the prescription is for a schedule II opioid drug., 1 puff... Start Date: 06/13/20 Status: Ordered duloxetine 30 mg oral enteric coated capsule 1 capsule, By Mouth, Daily, # 90 capsule, 0 Refills, Maintenance, 02/07/21 16:12:00 EDT, [facility] #[id number], 172, cm, 08/01/20 13:59:00 EDT, Height Start Date: 02/07/21 Stop Date: 05/08/21 Status: Ordered fenofibrate 54 mg oral tablet 1 tablet = 54 mg, By Mouth, Daily, # 30 tablet, 0 Refills, Maintenance, 05/10/21 11:35:00 EST, [facility] #[id number], Partial fill upon patient request if the [...] 05/29/21 13:15:00 EST, Route to Pharmacy Electronically, [facility] #[id number], 175, cm, 02/14/21 20:23:... Start Date: 05/29/21 Stop Date: 06/28/21 Status: Ordered lisinopril 20 mg oral tablet 1, tablet, By Mouth, Daily, # 30 tablet, Refills 5, Route to Pharmacy Electronically, [facility] #[id number], 175, cm, 02/14/21 20:23:00 EDT, Height, 77.5, kg, 02/14/21 20:23:00 EDT, Dry Weight Start Date: 02/23/21 Status: Ordered MetFORMIN (Eqv-Glucophage XR) 500 mg oral tablet, extended release 2 tablet = 1,000 mg, By Mouth, 2 times a day, # 120 tablet, 3 Refills, Maintenance, 04/15/21 15:52:00 EST, [facility] #[id number], Partial fill upon patient request if the prescription is for a schedule II opioid drug., 175, cm, 02/14/21 20:23:00... Start Date: 04/15/21 Stop Date: 08/13/21 Status: Ordered metFORMIN 500 mg oral tablet, extended release 2 tablet = 1,000 mg, By Mouth, Daily, # 60 tablet, 0 Refills, Maintenance, 04/11/21 12:42:00 EST, [facility] #[id number], Partial fill upon patient request if the [...] Refills, Maintenance, 02/08/21 9:48:00 EDT, ER Tablet, [facility] #[id number], Partialfill upon patient request if the prescription is... Start Date: 02/08/21 Stop Date: 08/07/21 Status: Ordered metoprolol 25 mg oral tablet, extended release 25 mg, 1, tablet, By Mouth, Daily, # 90 tablet, Refills 0, Tot. Refills 0, Maintenance, 05/10/21 11:34:00 EST, Route to Pharmacy Electronically, [facility] #[id number], 175, cm, 02/14/21 20:23:00 EDT, Height, 77.5, kg, 02/14/21 20:23:00 EDT, Dry... Start Date: 05/10/21 Status: Ordered metoprolol 25 mg oral tablet, extended release 25 mg, 1, tablet, By Mouth, Daily, # 90 tablet, Refills 1, Tot. Refills 1, Maintenance, 10/19/20 15:29:00 EDT, Route to Pharmacy Electronically, [facility] #[id number], 172, cm, 08/01/20 13:59:00 EDT, Height Start Date: 10/19/20 Stop Date: 04/17/21 Status: Ordered omeprazole 40 mg oral enteric coated capsule 1 capsule = 40 mg, By Mouth, Daily, # 90 capsule, 0 Refills, Maintenance, 04/24/21 14:31:00 EST, ECCapsule, [facility] #[id number], Partial fill upon patient request if the prescription is for a schedule II opioid drug., 175, cm, 02/14/21 20:23:... Start Date: 04/24/21 Status: Ordered QUEtiapine 100 mg oral tablet 1, tablet, By Mouth, Daily, bloodwork and appt needed, # 30 tablet, Refills 1, Tot. Refills 1, Maintenance, 02/08/21 9:46:00 EDT, Route to Pharmacy Electronically, [facility] #[id number], 172, cm, 08/01/20 13:59:00 EDT, Height Start Date: 02/08/21 Status: Ordered QUEtiapine 100 mg oral tablet See Instructions, TAKE 1 TABLET BY MOUTH DAILY BLOODWORK AND APPOINTMENT NEEDED, # 30 tablet, Refills 0, Tot. Refills 0, 05/29/21 13:15:00 EST, Instructions Replace Required Details, Route to Pharmacy Electronically, [facility] #[id number], 175,... Start Date: 05/29/21 Status: Ordered Suboxone [...] 05/10/21 11:34:00 EST, Route to Pharmacy Electronically, [facility] #[id number], Partial fill uponpatient request if the prescription [...]
--- OUTSIDE RECORDS SUMMARY | 2023-07-31 11:56 | XMS_ITS | Continuity of Care Document ---
Author Organization [facility] Address [address] [place] [address]- Care Team Providers Care Manager Front Name Role Phone Lucho Cardona DO Primary Care Physician Encounter [facility] Date(s): 12/01/19 - 01/04/20 [facility] [address] [place] [address]- [facility] Attending Physician: Lucho Cardona DO Allergies, [...] 1 Refills, Maintenance, 11/10/19 15:07:00 EDT, Tablet, [facility]/pharmacy #[id number], 172, cm, 06/30/19 7:54:00 EST, Height Start Date: 11/10/19 Status: Ordered duloxetine 30 mg oral enteric coated capsule 1 capsule, By Mouth, Daily, # 30 capsule, 3 Refills, Maintenance, 10/17/19 11:08:00 EDT, [facility] [id number], 172, cm, 06/30/19 7:54:00 EST, Height Start Date: 10/17/19 Status: Ordered gabapentin 300 mg oral capsule 1, capsule, By Mouth, 3 times a day, # 90 capsule, Refills 2, Tot. Refills 0, Maintenance, 10/16/2010:08:00 EDT, Route to Pharmacy Electronically, [facility] [id number], 172, cm, 06/30/19 7:54:00 EST, Height Start Date: 10/17/19 Status: Ordered lisinopril 5 mg oral tablet 5 mg, 1, tablet, By Mouth, Daily, # 90 tablet, Refills 0, Tot. Refills 0, Maintenance, 11/10/19 15:07:00 EDT, Route to Pharmacy Electronically, [facility]/pharmacy #[id number], 172, cm, 06/30/19 7:54:00 EST, Height Start Date: 11/10/19 Status: Ordered meloxicam 15 mg oral tablet See Instructions, TAKE 1 TABLET BY MOUTH EVERY DAY, # 30 tablet, 3 Refills, Maintenance, [facility] 10908, 172, cm, 06/30/19 7:54:00 EST, Height Start Date: 09/22/19 Status: Ordered meloxicam 15 mg oral tablet See Instructions, TAKE 1 TABLET BY MOUTH EVERY DAY, # 30 tablet, 3 Refills, Maintenance, [facility] [id number], 172, cm, 06/30/19 7:54:00 EST, Height Start Date: 09/22/19 Status: Ordered metoprolol 25 mg oral tablet, extended release 50 mg, 2, tablet, By Mouth, Daily, # 180 tablet, Refills 0, Tot. Refills 0, Maintenance, 12/30/19 16:08:00 EDT, Route to Pharmacy Electronically, [facility]/pharmacy #[id number], 172, cm, 12/01/19 14:10:00 EDT, Height [...] 11/10/19 15:07:00 EDT, Route to Pharmacy Electronically, [facility]/pharmacy #[id number], 172, cm, 06/30/19 7:54:00 EST, Height [...]
--- OUTSIDE RECORDS SUMMARY | 2023-07-31 11:56 | XMS_ITS | Continuity of Care Document ---
Author Organization [facility] Address [address] [place] [address]- Care Team Providers Care Dental Hygienist Mobile Coordinator Name Role Phone Lucho Cardona DO Primary Care Physician [place] [facility] 07/29/19 [facility] [address] [place] [address]- [facility] Attending Physician: Lucho Cardona DO Allergies, Adverse [...] 5 Refills, Maintenance, 05/09/19 10:34:00 EST, Tablet, [facility]/pharmacy #[id number], 172, cm, 05/09/19 10:09:00 EST, Height Start Date: 05/09/19 Status: Ordered duloxetine 30 mg oral enteric coated capsule 1 capsule, By Mouth, Daily, # 30 capsule, 3 Refills, Maintenance, 06/20/19 7:54:00 EST, [facility] 63846, 172, cm, 06/02/19 8:30:00 EST, Height Start Date: 06/20/19 Status: Ordered gabapentin 300 mg oral capsule 1, capsule, By Mouth, 3 times a day, # 90 capsule, Refills 2, Tot. Refills 0, Maintenance, 207:54:00 EST, Route to Pharmacy Electronically, [facility] [id number], 172, cm, 06/02/19 8:30:00 EST, Height Start Date: 06/20/19 Status: Ordered lisinopril 5 mg oral tablet 5 mg, 1, tablet, By Mouth, Daily, # 30 tablet, Refills 5, Tot. Refills 5, Maintenance, 05/09/19 10:34:00 EST, [id number], cm, 05/09/19 10:09:00 EST, Height Start Date: 05/09/19 Status: Ordered meloxicam 15 mg oral tablet 1 tablet = 15 mg, By Mouth, Daily, # 30 tablet, 0 Refills, Maintenance, 06/30/19 8:23:00 EST, [id number], cm, 06/30/19 7:54:00 EST, Height Start Date: 06/30/19 Status: Ordered metoprolol 25 mg oral tablet, extended release 50 mg, 2, tablet, By Mouth, Daily, # 30 tablet, Refills 5, Tot. Refills 5, Maintenance, 05/09/19 10:34:00 EST, [id number] 172, cm, 05/09/19 10:09:00 EST, [...] 06/20/19 7:54:00 EST, Route to Pharmacy Electronically, [facility] [id number], 172, cm, 06/02/19 8:30:00 EST, Height Start [...]
--- OUTSIDE RECORDS SUMMARY | 2023-07-31 11:56 | XMS_ITS | Continuity of Care Document ---
Author Organization [facility] Address [address] [place] [address]- Care Team Providers Care Transcription Name Role Phone Glenn AQUINO, Danielle Primary Care Physician Encounter 07/31/20 - 08/07/20 [facility] [address], [address] [place] [address]- Attending Physician: Danielle Elizabeth NP Admitting Physician: [...] Maintenance,07/11/20 15:14:00 EDT, Route to Pharmacy Electronically, [facility]/pharmacy #[id number], 172, cm, 07/11/20 14:49:00 EDT, Height Start Date: 07/11/20 Stop Date: 09/09/20 Status: Ordered lisinopril 20 mg oral tablet 20 mg, 1, tablet, By Mouth, Daily, # 90 tablet, Refills 1, Tot. Refills 1, Maintenance, 07/11/20 15:12:00 EDT, Route to Pharmacy Electronically, [facility]/pharmacy #[id number], Partial fill upon patient request if the prescription is for a schedule II opioid drug... Start Date: 07/11/20 Stop Date: 01/07/21 Status: Ordered metFORMIN 750 mg oral tablet, extended release 1 tablet = 750 mg, By Mouth, 2 times a day, with food, # 180 tablet, 1 Refills, Maintenance, 07/12/20 7:44:00 EDT, ER Tablet, [facility]/pharmacy #[id number], Partial fill upon patient request if the prescriptionis for a schedule II opioid drug., 172, cm, ... Start Date: 07/12/20 Stop Date: 01/08/21 Status: Ordered metoprolol 25 mg oral tablet, extended release 25 mg, 1, tablet, By Mouth, Daily, # 90 tablet, Refills 1, Tot. Refills 1, Maintenance, 07/16/20 12:36:00 EDT, Route to Pharmacy Electronically, [facility]/pharmacy #[id number], 172, cm, 07/11/20 15:26:00 EDT, [...] 07/16/20 12:36:00 EDT, Route to Pharmacy Electronically, [facility]/pharmacy #[id number], 172, cm, 07/11/20 15:26:00 EDT, [...]
[2023-07-31 12:15] LABS: MANUAL DIFF FLAG NO
[2023-07-31 12:22] LABS: Basophils Percent Auto 0.5 % (0-2); Eosinophils Percent Auto 0.7 % (0-4); Hematocrit 38.1 % (42.0-52.0); Hemoglobin 12.5 g/dl (14.0-18.0); Imm Gran Abs Auto 0.03 X10*3/uL (0.00-0.03); Imm Gran Pct Auto 0.5 % (0.0-0.4); Lymphocytes Percent Auto 16.9 % (20-40); Mean Corpuscular HGB Conc 32.8 g/dl (31.0-36.0); Mean Corpuscular Volume 73.3 fL (80.0-98.0); Mean Platelet Volume 9.8 fL (9.4-12.4); Monocytes Absolute Auto 0.5 X10*3/uL (0.1-1.2); Monocytes Percent Auto 7.8 % (2-11); Neutrophils Absolute Auto 4.4 x10*3/uL (2.0-8.3); Neutrophils Percent Auto 73.6 % (45-73); Platelet Count 212 X10*3/uL (160-400); Red Cell Distribution Width 15.6 % (11.0-16.0)
[2023-07-31 12:34] LABS: Acetaminophen LAB < 3 mcg/mL (<30); Salicylate < 5.0 mg/dL (15-30)
[2023-07-31 12:35] LABS: Alanine Aminotransferase 27 U/L (0-40); Albumin Level 4.2 g/dL (3.5-5.0); Alkaline Phosphatase 59 U/L (39-117); Anion Gap 10 (12-20); Aspartate Amino Transferase 25 U/L (5-37); Bilirubin Total 0.4 mg/dL (0.0-1.0); Blood Urea Nitrogen 17 mg/dL (9-16); Calcium 9.4 mg/dL (8.4-10.2); Carbon Dioxide 25 mmol/L (22-29); Chloride 104 mmol/L (96-108); Creatinine Clr Calc Pharmacy 93.8; Estimated Glomerular Filt Rate > 60; Ethanol < 10 mg/dL; Glucose Random 278 mg/dL (60-115); Magnesium 1.6 mg/dL (1.6-2.6); Potassium 4.3 mmol/L (3.3-5.1); Sodium 135 mmol/L (135-145); Total Protein 6.9 g/dL (6.5-8.0)
[2023-07-31 14:36] VITALS: PULSE 85
[2023-07-31 15:36] VITALS: BP 133/70; PULSE 81; RESP 14; TEMP 36.4; O2SAT 94
[2023-07-31 15:50] LABS: Appearance Urine Cloudy; Color Urine Yellow; Glucose Urine UA >=1000 mg/dL (Negative); Leukocyte Esterase Urine Negative (Negative); Nitrite Urine Negative (Negative); PH 6.5 (5.0-9.0); Specific Gravity - Urine >= 1.030 (1.005-1.025); UMIC TRIGGER UACC YES; Urine Blood Negative (Negative); Urine Ketones Negative (Negative); Urine Protein Negative (Neg-Trace)
[2023-07-31 15:55] LABS: Amphetamine Screen Urine Not Detected (Not Detect); Barbiturates, Urine Not Detected (Not Detect); Benzodiazepines Screen Urine Not Detected (Not Detect); Cannabinoid Screen Urine Not Detected (Not Detect); Cocaine Screen Urine POSITIVE (Not Detect); Fentanyl, urine Not Detected (Not Detect); Opiate Screen Urine Not Detected (Not Detect); Phencyclidine Screen Urine Not Detected (Not Detect)
[2023-07-31 16:12] LABS: Bacteria Urine None Seen (None Seen); Hyaline Casts Urine 0-2 /LPF (0-2); RBC Urine 0-2 /HPF (0-2); Squamous Epithelial Cell Urine 0-2 /HPF (0-2); WBC Urine 0-5 /HPF (0-5)
--- NOTE | 2023-07-31 18:57 | ECG_ITS ---
Test Reason : CHEST PAIN Blood Pressure : / mmHG Vent. Rate : 077 BPM Atrial Rate : 077 BPM P-R Int : 202 ms QRS Dur : 094 ms QT Int : 376 ms P-R-T Axes : 035 031 059 degrees QTc Int : 425 ms Normal sinus rhythm Increased R/S ratio in V1, consider early transition or posterior infarct Abnormal ECG When compared with ECG of 31-DEC-2022 07:47, Nonspecific T wave abnormality, worse in Lateral leads Referred By: Ravin Vega Electronically Signed By:BETINA SULLIVAN MD
--- NOTE | 2023-07-31 20:14 | MHC.CARE ---
CARE Team evaluation complete. 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 ED provider is aware.
[2023-07-31 21:15] VITALS: BP 156/76; PULSE 77; RESP 16; TEMP 36.6; O2SAT 95
[2023-07-31 21:49] LABS: COVID-19 Test Negative (Negative); IDNOW Serial# 55D5AD1C
[2023-08-01 00:20] VITALS: BMI 29.9
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
[2023-08-01 07:25] LABS: Estimated Average Glucose 258 mg/dL; Hemoglobin A1c % 10.6 % (<6.0)
[2023-08-01 07:29] LABS: Cholesterol 132 mg/dL (<200); HDL Cholesterol 26 mg/dL (>40); LDL Cholesterol Calculated 48 mg/dL (<100); Magnesium 1.7 mg/dL (1.6-2.6); Triglycerides 294 mg/dL (<150)
[2023-08-01 07:44] LABS: Free T4 (Free Thyroxine) 0.78 ng/dL (0.71-1.85); Thyroid Stimulating Hormone 2.44 uIU/mL (0.32-4.0)
[2023-08-01 07:56] LABS: Folate 6.9 ng/mL (> or = 4.0); Vitamin B12 511 pg/mL (200-900)
[2023-08-01 09:27] VITALS: BP 133/66; PULSE 71; RESP 18; TEMP 36.3; O2SAT 97
[2023-08-01] MEDS: Buprenorphine/Naloxone 8/2 mg FILM 1 FILM SUBLINGUAL (09:56)
[2023-08-01] MEDS: QUEtiapine Fumarate 50 MG TABLET PO (09:57)
[2023-08-01] MEDS: Sertraline HCL 100 MG TABLET PO (09:57)
[2023-08-01] MEDS: chlordiazePOXIDE HCl 25 MG CAPSULE 50 MG PO (09:57)
[2023-08-01] MEDS: Multivitamin TABLET 1 TAB PO (09:57)
[2023-08-01] MEDS: Thiamine HCL 100 MG TABLET PO (09:57)
[2023-08-01] MEDS: Folic Acid 1 MG TABLET PO (09:57)
[2023-08-01] MEDS: Metoprolol Succinate ER 25 MG TAB.ER.24H PO (09:58)
[2023-08-01] MEDS: Fenofibrate 54 MG TABLET PO (09:58)
[2023-08-01] MEDS: lisinopriL 5 MG TABLET PO (09:58)
[2023-08-01] MEDS: Atorvastatin Calcium 40 MG TABLET PO (09:58)
[2023-08-01] MEDS: metFORMIN HCl 1,000 MG TABLET 1000 MG PO ×2 (09:58→16:07)
[2023-08-01] MEDS: hydrOXYzine HCL 25 MG TABLET PO ×2 (10:25→16:07)
[2023-08-01] MEDS: chlordiazePOXIDE HCl 25 MG CAPSULE PO ×2 (12:00→16:07)
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
[2023-08-01 16:49] VITALS: BP 153/78; PULSE 91; RESP 18; TEMP 36.4; O2SAT 95
[2023-08-01] MEDS: QUEtiapine Fumarate 100 MG TABLET PO (20:02)
[2023-08-01 21:43] LABS: Glucose, Whole Blood 399 mg/dL (60-115)
--- NOTE | 2023-08-02 | ECG_ITS ---
Test Reason : qtc Blood Pressure : / mmHG Vent. Rate : 060 BPM Atrial Rate : 060 BPM P-R Int : 206 ms QRS Dur : 102 ms QT Int : 396 ms P-R-T Axes : 037 035 -27 degrees QTc Int : 396 ms Normal sinus rhythm Cannot rule out Inferior infarct , age undetermined Abnormal ECG When compared with ECG of 31-JUL-2023 19:07, Minimal criteria for Inferior infarct are now Present Referred By: Cely Miller Electronically Signed By:BETINA SULLIVAN MD
[2023-08-02] MEDS: chlordiazePOXIDE HCl 25 MG CAPSULE 50 MG PO (02:36)
[2023-08-02] MEDS: traZODone HCL 50 MG TABLET PO ×2 (02:36→21:12)
--- NOTE | 2023-08-02 05:57 | HO.PSYCHPN ---
Subjective Subjective Date of Service: 08/02/23 Reason For Visit: Major depression, Polysubstance use disorder Subjective Notes: Conditional Voluntary Healthcare Proxy: No Guardianship: No Medical Problems Affecting Mental Status: No Interim History: Pt seen, discussed with team. Plan of care reviewed and adjusted. Seen by hospitalist team for DM and ?need for insulin. Glipizide initiated. POC adjusted, CXR ordered-congestion, repeat EKG, swallow eval. Pt remains with SI, states he has himself in a corner and believes peers whom he took money from will kill him. One to one in place. Medication Compliance: Yes Side effects from medications: No Attending Groups: No Review of Systems Acute medical concerns: No Medical Review of Systems: unchanged Review of Systems Review of Systems as noted Mental Status Exam Mental Status Exam Patient Appearance: Fatigued Patient Orientation: Person, Place, Time and Situation Level of Consciousness: Alert Patient Behavior: Talkative and Good Eye Contact Mood Description: Depressed, Fearful, Anxious and Apprehensive Affect Description: Flat Patient Cognition Impaired: Yes Ability to Follow Directions: Fair Speech Pattern: Spontaneous Speech Memory Description: Remote Impaired Hallucinations: None Delusions: Paranoid Ideation Thought Process: Distracted and Rumination Thought Content: positive for Perseveration Depressive Symptoms: Hopelessness, Unhappiness, Thoughts of /Suicide and Low Self Esteem Abnormal Motor Activity Signs and Symptoms: Restlessness Judgement: Poor Diagnostics Vital Signs (24Hr): Vital Signs - 24 hr 08/01/23 09:27 08/01/23 16:49 Temperature 97.4 F 97.6 F Pulse Rate 71 91 Respiratory Rate 18 18 Blood Pressure 133/66 153/78 H Pulse Oximetry 97 95 Oxygen Delivery Method Room Air Room Air BMI result Body Mass Index 29.9 Labs 07/31/23 12:07 07/31/23 12:07 Labs: Laboratory Results - last 48 hr 07/31/23 07/31/23 07/31/23 12:07 15:28 20:21 WBC 6.0 RBC 5.20 Hgb 12.5 L Hct 38.1 L MCV 73.3 L MCH 24.0 L MCHC 32.8 RDW 15.6 Plt Count 212 MPV 9.8 Immature Gran % (Auto) 0.5 H Neut % (Auto) 73.6 H Lymph % (Auto) 16.9 L [place] % (Auto) 7.8 Eos % (Auto) 0.7 Baso % (Auto) 0.5 Lymph # (Auto) 1.0 L [place] # (Auto) 0.5 Eos # (Auto) 0.0 Baso # (Auto) 0.0 Abs Immat Gran (auto) 0.03 Absolute Neuts (auto) 4.4 Absolute Nucleated RBC 0.000 Nucleated RBC % (auto) 0.0 Sodium 135 Potassium 4.3 Chloride 104 Carbon Dioxide 25 Anion Gap 10 L BUN 17 H Creatinine 0.84 Estim Creat Clear Calc 93.8 Estimated GFR > 60 POC Glucose Random Glucose 278 H Estimat Average Glucose Hemoglobin A1c % Calcium 9.4 Magnesium 1.6 Total Bilirubin 0.4 AST 25 ALT 27 Alkaline Phosphatase 59 Total Protein 6.9 Albumin 4.2 Triglycerides Cholesterol LDL Cholesterol, Calc HDL Cholesterol Vitamin B12 Folate TSH Free T4 Urine Color Yellow Urine Appearance Cloudy Urine pH 6.5 Ur Specific [place] >= 1.030 H Urine Protein Negative Urine Glucose (UA) >=1000 H Urine Ketones Negative Urine Blood Negative Urine Nitrite Negative Ur Leukocyte Esterase Negative Urine RBC 0-2 Urine WBC 0-5 Ur Squamous Epith Cells 0-2 Urine Bacteria None Seen Hyaline Casts 0-2 Salicylates < 5.0 L Urine Opiates Screen Not Detected Urine Fentanyl Screen Not Detected Acetaminophen < 3 Ur Barbiturates Screen Not Detected Ur Phencyclidine Scrn Not Detected Ur Amphetamines Screen Not Detected U Benzodiazepines Scrn Not Detected Urine Cocaine Screen POSITIVE H U Marijuana (THC) Screen Not Detected Ethyl Alcohol < 10 COVID-19 (TANA) Negative COVID-19 Clin Com See Note 08/01/23 08/01/23 06:44 21:27 WBC RBC Hgb Hct MCV MCH MCHC RDW Plt Count MPV Immature Gran % (Auto) Neut % (Auto) Lymph % (Auto) [place] % (Auto) Eos % (Auto) Baso % (Auto) Lymph # (Auto) [place] # (Auto) Eos # (Auto) Baso # (Auto) Abs Immat Gran (auto) Absolute Neuts (auto) Absolute Nucleated RBC Nucleated RBC % (auto) Sodium Potassium Chloride Carbon Dioxide Anion Gap BUN Creatinine Estim Creat Clear Calc Estimated GFR POC Glucose 399 H* Random Glucose Estimat Average Glucose 258 Hemoglobin A1c % 10.6 H Calcium Magnesium 1.7 Total Bilirubin AST ALT Alkaline Phosphatase Total Protein Albumin Triglycerides 294 H Cholesterol 132 LDL Cholesterol, Calc 48 HDL Cholesterol 26 L Vitamin B12 511 Folate 6.9 TSH 2.44 Free T4 0.78 Urine Color Urine Appearance Urine pH Ur Specific [place] Urine Protein Urine Glucose (UA) Urine Ketones Urine Blood Urine Nitrite Ur Leukocyte Esterase Urine RBC Urine WBC Ur Squamous Epith Cells Urine Bacteria Hyaline Casts Salicylates Urine Opiates Screen Urine Fentanyl Screen Acetaminophen Ur Barbiturates Screen Ur Phencyclidine Scrn Ur Amphetamines Screen U Benzodiazepines Scrn Urine Cocaine Screen U Marijuana (THC) Screen Ethyl Alcohol COVID-19 (TANA) COVID-19 Clin Com Medications Medications Current Medications Acetaminophen (Acetaminophen 325 Mg Tablet) 650 mg PO Q6H PRN PRN Reason: Headache/Pain Mild Scale (1-3) Al Hydroxide/Mg Hydroxide (Magnesium Hydrox/Alum Hydrox 30 Ml Oral.Susp) 30 ml PO Q6H PRN PRN Reason: Heartburn/Nausea Atorvastatin Calcium (Atorvastatin Calcium 40 Mg Tablet) 40 mg PO DAILY [facility] Last Admin: 08/01/23 09:58 Dose: 40 mg Buprenorphine/Naloxone (Buprenorphine/Naloxone 8/2 Mg Film) 1 film SUBLINGUAL DAILY [facility] Last Admin: 08/01/23 09:56 Dose: 1 film Chlordiazepoxide HCl (Chlordiazepoxide Hcl 25 Mg Capsule) 50 mg PO Q4H PRN PRN Reason: ciwa 10-15 Last Admin: 08/02/23 02:36 Dose: 50 mg Chlordiazepoxide HCl (Chlordiazepoxide Hcl 25 Mg Capsule) 25 mg PO Q4H PRN PRN Reason: ciwa 6-10 Last Admin: 08/01/23 16:07 Dose: 25 mg Fenofibrate (Fenofibrate 54 Mg Tablet) 54 mg PO DAILY [facility] Last Admin: 08/01/23 09:58 Dose: 54 mg Folic Acid (Folic Acid 1 Mg Tablet) 1 mg PO DAILY [facility] Last Admin: 08/01/23 09:57 Dose: 1 mg Hydroxyzine HCl (Hydroxyzine Hcl 25 Mg Tablet) 25 mg PO Q6H PRN PRN Reason: Anxiety Last Admin: 08/01/23 16:07 Dose: 25 mg Lisinopril (Lisinopril 5 Mg Tablet) 5 mg PO DAILY [facility]; Protocol Last Admin: 08/01/23 09:58 Dose: 5 mg Magnesium Hydroxide (Milk Of Magnesia 30 Ml Oral.Susp) 30 ml PO DAILY PRN PRN Reason: Constipation Metformin HCl (Metformin Hcl 1,000 Mg Tablet) 1,000 mg PO BIDWM [facility] Last Admin: 08/01/23 16:07 Dose: 1,000 mg Metoprolol Succinate (Metoprolol Succinate Er 25 Mg Tab.Er.24h) 25 mg PO DAILY [facility]; Protocol Last Admin: 08/01/23 09:58 Dose: 25 mg Multivitamins/Vitamin C (Multivitamin Tablet) 1 tab PO DAILY [facility] Last Admin: 08/01/23 09:57 Dose: 1 tab Omeprazole (Omeprazole 20 Mg Capsule.Dr) 20 mg PO DAILY@0630 [facility] Ondansetron HCl (Ondansetron Odt 4 Mg Tab.Rapdis) 4 mg TRANSLINGU Q8H PRN PRN Reason: nausea/vomiting Quetiapine Fumarate (Quetiapine Fumarate 100 Mg Tablet) 100 mg PO BEDTIME [facility] Last Admin: 08/01/23 20:02 Dose: 100 mg Quetiapine Fumarate (Quetiapine Fumarate 50 Mg Tablet) 50 mg PO DAILY [facility] Last Admin: 08/01/23 09:57 Dose: 50 mg Sertraline HCl (Sertraline Hcl 100 Mg Tablet) 100 mg PO DAILY [facility] Last Admin: 08/01/23 09:57 Dose: 100 mg Thiamine HCl (Thiamine Hcl 100 Mg Tablet) 100 mg PO DAILY [facility] Last Admin: 08/01/23 09:57 Dose: 100 mg Trazodone HCl (Trazodone Hcl 50 Mg Tablet) 50 mg PO BEDTIME MRX1 PRN PRN Reason: Insomnia Last Admin: 08/02/23 02:36 Dose: 50 mg Allergies Allergies Allergy/AdvReac Type Severity Reaction Status Date / Time No Known Allergies Allergy Verified 07/31/23 11:41 Assessment & Plan Assessment & Plan (1) Alcohol use disorder: Status: Acute Code(s): F10.90 - Alcohol use, unspecified, uncomplicated (2) Cocaine use disorder, moderate, dependence: Status: Acute Code(s): F14.20 - Cocaine dependence, uncomplicated (3) Depression: Status: Acute Code(s): F32.A - Depression, unspecified Plan 08/02/23- Continue one to one Continue detox, medical eval Prepare for Section 35. Reason for continued inpatient stay Substantial Risk for: med/psych decompensation Time Spent With Patient Time: Total time managing care of this patient today ____ minutes.
[2023-08-02 08:00] VITALS: BP 140/75; PULSE 67; RESP 16; TEMP 36.4; O2SAT 95
[2023-08-02 08:05] LABS: Glucose, Whole Blood 310 mg/dL (60-115)
[2023-08-02] MEDS: Folic Acid 1 MG TABLET PO (08:23)
[2023-08-02] MEDS: Multivitamin TABLET 1 TAB PO (08:24)
[2023-08-02] MEDS: QUEtiapine Fumarate 50 MG TABLET PO (08:24)
[2023-08-02] MEDS: metFORMIN HCl 1,000 MG TABLET 1000 MG PO ×2 (08:24→17:53)
[2023-08-02] MEDS: Omeprazole 20 MG CAPSULE.DR PO (08:24)
[2023-08-02] MEDS: Buprenorphine/Naloxone 8/2 mg FILM 1 FILM SUBLINGUAL (08:24)
[2023-08-02] MEDS: lisinopriL 5 MG TABLET PO (08:24)
[2023-08-02] MEDS: Metoprolol Succinate ER 25 MG TAB.ER.24H PO (08:24)
[2023-08-02] MEDS: Sertraline HCL 100 MG TABLET PO (08:24)
[2023-08-02] MEDS: Atorvastatin Calcium 40 MG TABLET PO (08:24)
[2023-08-02] MEDS: Thiamine HCL 100 MG TABLET PO (08:24)
[2023-08-02] MEDS: Fenofibrate 54 MG TABLET PO (08:24)
--- NOTE | 2023-08-02 12:08 | PM.EVENT ---
Event Note Date of Service: 08/02/23 Event Note: Pt is a 61-year-old male with a PMH significant for?HTN, [id number] diabetes type 2, HLD, neuropathy, polysubstance use disorder, alcohol use disorder, lung cancer s/p right lower lobe resection, and MDD who was seen for diabetes management. Patient currently on metformin 1000 mg b.i.d. which states he has been taking regularly, however blood sugars have been difficult to control: POC at this admission has been as high as 399 with A1c 10.6. Patient reports that he neither watches his diet nor adheres to a diabetic diet, and is noted at time of interview to be drinking chocolate milk and eating an ice cream. Reports follows regularly with his PCP with last visit <1 year ago. The patient's sugars will likely be difficult to control, as patient seems very depressed after the recent of his brother and close friend. States he just does not care about taking care of himself anymore. Patient also states he has been having difficulty paying for his medications and reports he does not have a glucometer at home. For patient's diabetes, we will cover him with a sliding scale insulin and start him on glipizide 5 mg daily. Encourage diabetic diet. He will need to follow-up outpatient with PCP for monitoring of A1C in 3-6 months time and medication adjustments, including whether to start home insulin. Will continue to follow for now to monitor POC. Time Spent With Patient Time: Total time managing care of this patient today ____ minutes.
[2023-08-02 12:26] LABS: Glucose, Whole Blood 384 mg/dL (60-115)
[2023-08-02] MEDS: glipiZIDE 5 MG TABLET PO (12:31)
--- NOTE | 2023-08-02 14:38 | MHC.RECOVRN ---
T/W went to meet with pt for ACS eval as per referral received. Staff informed me that pt was not having a good day and requested another day for visit. As need for visit was not urgent I deferred to tomorrow. Report to ACS team.
[2023-08-02] MEDS: Acetaminophen 325 MG TABLET 650 MG PO ×2 (14:45→21:14)
[2023-08-02 16:46] LABS: Glucose, Whole Blood 261 mg/dL (60-115)
[2023-08-02 16:59] VITALS: BP 154/79; PULSE 79; RESP 18; TEMP 36.9; O2SAT 92
[2023-08-02] MEDS: hydrOXYzine HCL 25 MG TABLET PO ×2 (17:53→21:13)
[2023-08-02] MEDS: Insulin Lispro 100 UNIT/ML 3 ML VIAL SUBCUT ×2 (17:53→21:14)
[2023-08-02 20:58] LABS: Glucose, Whole Blood 205 mg/dL (60-115)
[2023-08-02] MEDS: QUEtiapine Fumarate 100 MG TABLET PO (21:13)
[2023-08-03] MEDS: Omeprazole 20 MG CAPSULE.DR PO (06:59)
[2023-08-03 07:59] LABS: Glucose, Whole Blood 240 mg/dL (60-115)
[2023-08-03 08:00] VITALS: BP 149/70; PULSE 71; RESP 18; TEMP 36.4; O2SAT 96
[2023-08-03] MEDS: glipiZIDE 5 MG TABLET PO (08:12)
[2023-08-03] MEDS: Buprenorphine/Naloxone 8/2 mg FILM 1 FILM SUBLINGUAL (08:12)
[2023-08-03] MEDS: metFORMIN HCl 1,000 MG TABLET 1000 MG PO ×2 (08:12→17:50)
[2023-08-03] MEDS: Fenofibrate 54 MG TABLET PO (08:12)
[2023-08-03] MEDS: lisinopriL 5 MG TABLET PO (08:12)
[2023-08-03] MEDS: Sertraline HCL 100 MG TABLET PO (08:12)
[2023-08-03] MEDS: Atorvastatin Calcium 40 MG TABLET PO (08:13)
[2023-08-03] MEDS: Insulin Lispro 100 UNIT/ML 3 ML VIAL SUBCUT ×4 (08:13→20:48)
[2023-08-03] MEDS: QUEtiapine Fumarate 50 MG TABLET PO ×2 (08:13→20:46)
[2023-08-03] MEDS: Thiamine HCL 100 MG TABLET PO (08:13)
[2023-08-03] MEDS: Folic Acid 1 MG TABLET PO (08:13)
[2023-08-03] MEDS: Multivitamin TABLET 1 TAB PO (08:13)
[2023-08-03] MEDS: Metoprolol Succinate ER 25 MG TAB.ER.24H PO (08:13)
--- NOTE | 2023-08-03 11:39 | MHC.SL.SWA ---
Speech Pathologist Impression: Oral phase dysphagia, risk of aspiration Risk of Aspiration Due to: Edentulous Dysphasia Diet Status:DOWNGRADE to NDD2 solids, continue on THIN liquids Liquid Consistency and Strategies for Safe Swallow: Liquid Intake Recommendation: Thin Liquid Intake Strategies: Small Sips Solid Food Consistency: Dietary Recommendations: Grnd/Mech Altered (NDD2) Additional Modifications to Solid Foods: Patient is edentulous and exhibits difficulty chewing harder solids. Recommend DOWNGRADE to GROUND/MECH ALTERED (NDD2) diet for ease of mastication. Provide direct supervision during meals with cues as needed to take small bites, adequately chew food, alternate with sips of liquid. GEAR CUTTING MACHINE OPERATOR to f/u 1-2x. Oral Medication Intake: Whole with Liquid Please contact the pharmacy regarding appropriate crushable or liquid drug formulations that are available whenever modified delivery is recommended. Compensatory Strategies and Precautions to be Taken for Safe Swallow: Sitting Upright (90 deg) Double Swallow Small Bites and Sips Alternate Liquids/Solids Rate of Ingestion Change Avoid Specific Foods Supervision While Eating and Drinking for Safe Swallow: Total Supervision (1:1) Foods to Avoid: Hard, tough to chew solids Swallowing Recommended Treatments: Compens. Strategy Educat. Recommendation for Speech: Inpatient Speech Therapy Comment: 1-2 f/u Frequency/Duration: Date Range for Service Req: Timeline to reassess: Telecasting Engineer Clinican/Clinical Fellow: No Supervisory Statement: I have reviewed and agree with the student/clinical fellow's documentation: N/A Speech Language Pathologist: Joaquina Singleton M.A., CCC-GEAR CUTTING MACHINE OPERATOR
[2023-08-03 12:36] LABS: Glucose, Whole Blood 269 mg/dL (60-115)
--- NOTE | 2023-08-03 14:29 | HO.PSYCHPN ---
Subjective Subjective Date of Service: 08/03/23 Reason For Visit: Major depression, Polysubstance use disorder Subjective Notes: Conditional Voluntary Healthcare Proxy: No Guardianship: No Medical Problems Affecting Mental Status: No Interim History: Medical testing negative thus far- Chest xray, swallow assessment, EKG. Seroquel and Librium decreased. Pt has a Section 35 with [place] [employer] [address] pending. This may occur on 08/03. Pt ruminative and fearful that his life may be in danger from borrowing money from peers he cannot pay back. Continues on one to one for safety. Medication Compliance: Yes Side effects from medications: No Attending Groups: No Review of Systems Acute medical concerns: No Medical Review of Systems: unchanged Review of Systems Review of Systems Yes all other systems are reviewed and are negative Mental Status Exam Mental Status Exam Patient Appearance: Fatigued Patient Orientation: Person, Place, Time and Situation Level of Consciousness: Alert Patient Behavior: Talkative and Good Eye Contact Mood Description: Depressed, Fearful, Anxious and Apprehensive Affect Description: Flat Patient Cognition Impaired: Yes Ability to Follow Directions: Fair Speech Pattern: Spontaneous Speech Memory Description: Remote Impaired Hallucinations: None Delusions: Paranoid Ideation Thought Process: Distracted and Rumination Thought Content: positive for Perseveration Depressive Symptoms: Hopelessness, Unhappiness, Thoughts of /Suicide and Low Self Esteem Abnormal Motor Activity Signs and Symptoms: Restlessness Judgement: Poor Diagnostics Vital Signs (24Hr): Vital Signs - 24 hr 08/02/23 16:59 08/03/23 08:00 Temperature 98.5 F 97.5 F Pulse Rate 79 71 Respiratory Rate 18 18 Blood Pressure 154/79 H 149/70 H Pulse Oximetry 92 96 Oxygen Delivery Method Room Air Room Air BMI result Body Mass Index 29.9 Labs 07/31/23 12:07 07/31/23 12:07 Labs: Laboratory Results - last 48 hr 08/01/23 08/02/23 08/02/23 21:27 07:47 12:21 POC Glucose 399 H* 310 H 384 H* 08/02/23 08/02/23 08/03/23 16:27 20:48 07:47 POC Glucose 261 H 205 H 240 H 08/03/23 12:26 POC Glucose 269 H Imaging Radiology Impressions: ITS Impressions Chest X-Ray 08/02/23 12:48 IMPRESSION: No significant change compared to 12/31/2022. Medications Medications Current Medications Acetaminophen (Acetaminophen 325 Mg Tablet) 650 mg PO Q6H PRN PRN Reason: Headache/Pain Mild Scale (1-3) Last Admin: 08/02/23 21:14 Dose: 650 mg Al Hydroxide/Mg Hydroxide (Magnesium Hydrox/Alum Hydrox 30 Ml Oral.Susp) 30 ml PO Q6H PRN PRN Reason: Heartburn/Nausea Atorvastatin Calcium (Atorvastatin Calcium 40 Mg Tablet) 40 mg PO DAILY [facility] Last Admin: 08/03/23 08:13 Dose: 40 mg Buprenorphine/Naloxone (Buprenorphine/Naloxone 8/2 Mg Film) 1 film SUBLINGUAL DAILY [facility] Last Admin: 08/03/23 08:12 Dose: 1 film Chlordiazepoxide HCl (Chlordiazepoxide Hcl 25 Mg Capsule) 50 mg PO Q4H PRN PRN Reason: ciwa 10-15 Last Admin: 08/02/23 02:36 Dose: 50 mg Chlordiazepoxide HCl (Chlordiazepoxide Hcl 25 Mg Capsule) 25 mg PO Q4H PRN PRN Reason: ciwa 6-10 Last Admin: 08/01/23 16:07 Dose: 25 mg Fenofibrate (Fenofibrate 54 Mg Tablet) 54 mg PO DAILY [facility] Last Admin: 08/03/23 08:12 Dose: 54 mg Folic Acid (Folic Acid 1 Mg Tablet) 1 mg PO DAILY [facility] Last Admin: 08/03/23 08:13 Dose: 1 mg Glipizide (Glipizide 5 Mg Tablet) 5 mg PO DAILY [facility] Last Admin: 08/03/23 08:12 Dose: 5 mg Glucose (Glucose Gel 15 Gm Gel..Gram.) 15 gm PO Q15M PRN; Protocol PRN Reason: per Hypoglycemia Standing Ord. Hydroxyzine HCl (Hydroxyzine Hcl 25 Mg Tablet) 25 mg PO Q6H PRN PRN Reason: Anxiety Last Admin: 08/02/23 21:13 Dose: 25 mg Dextrose (D10) 250 mls @ 750 mls/hr IV Q15M PRN; Protocol PRN Reason: per Hypoglycemia Standing Ord. Insulin Glargine (Insulin Glargine,Hum.Rec.Anlog 100 Unit/Ml 10 Ml Vial) 10 unit SUBCUT BEDTIME [facility] Insulin Human Lispro (Insulin Lispro 100 Unit/Ml 3 Ml Vial) 0 unit SUBCUT QIDACHS [facility]; Protocol Last Admin: 08/03/23 12:32 Dose: 6 unit Lisinopril (Lisinopril 5 Mg Tablet) 5 mg PO DAILY [facility]; Protocol Last Admin: 08/03/23 08:12 Dose: 5 mg Magnesium Hydroxide (Milk Of Magnesia 30 Ml Oral.Susp) 30 ml PO DAILY PRN PRN Reason: Constipation Metformin HCl (Metformin Hcl 1,000 Mg Tablet) 1,000 mg PO BIDWM [facility] Last Admin: 08/03/23 08:12 Dose: 1,000 mg Metoprolol Succinate (Metoprolol Succinate Er 25 Mg Tab.Er.24h) 25 mg PO DAILY [facility]; Protocol Last Admin: 08/03/23 08:13 Dose: 25 mg Multivitamins/Vitamin C (Multivitamin Tablet) 1 tab PO DAILY [facility] Last Admin: 08/03/23 08:13 Dose: 1 tab Omeprazole (Omeprazole 20 Mg Capsule.Dr) 20 mg PO DAILY@0630 [facility] Last Admin: 08/03/23 06:59 Dose: 20 mg Ondansetron HCl (Ondansetron Odt 4 Mg Tab.Rapdis) 4 mg TRANSLINGU Q8H PRN PRN Reason: nausea/vomiting Quetiapine Fumarate (Quetiapine Fumarate 100 Mg Tablet) 100 mg PO BEDTIME [facility] Last Admin: 08/02/23 21:13 Dose: 100 mg Quetiapine Fumarate (Quetiapine Fumarate 50 Mg Tablet) 50 mg PO DAILY [facility] Last Admin: 08/03/23 08:13 Dose: 50 mg Sertraline HCl (Sertraline Hcl 100 Mg Tablet) 100 mg PO DAILY [facility] Last Admin: 08/03/23 08:12 Dose: 100 mg Thiamine HCl (Thiamine Hcl 100 Mg Tablet) 100 mg PO DAILY [facility] Last Admin: 08/03/23 08:13 Dose: 100 mg Trazodone HCl (Trazodone Hcl 50 Mg Tablet) 50 mg PO BEDTIME MRX1 PRN PRN Reason: Insomnia Last Admin: 08/02/23 21:12 Dose: 50 mg Allergies Allergies Allergy/AdvReac Type Severity Reaction Status Date / Time No Known Allergies Allergy Verified 07/31/23 11:41 Assessment & Plan Assessment & Plan (1) Alcohol use disorder: Status: Acute Code(s): F10.90 - Alcohol use, unspecified, uncomplicated (2) Cocaine use disorder, moderate, dependence: Status: Acute Code(s): F14.20 - Cocaine dependence, uncomplicated (3) Depression: Status: Acute Code(s): F32.A - Depression, unspecified Plan 08/02/23- Continue one to one Continue detox, medical eval Prepare for Section 35. 08/03/23- Medical diagnostics are negative. Decrease Librium/Seroquel Potential Section 35 on 08/[address] [place] [address]. Informed Consent: further education needed Reason for continued inpatient stay Substantial Risk for: med/psych decompensation Time Spent With Patient Time: Total time managing care of this patient today ____ minutes.
[2023-08-03 17:38] LABS: Glucose, Whole Blood 191 mg/dL (60-115)
[2023-08-03 18:00] VITALS: BP 137/71; PULSE 80; TEMP 37.2; O2SAT 94
[2023-08-03 20:02] LABS: Glucose, Whole Blood 191 mg/dL (60-115)
[2023-08-03] MEDS: traZODone HCL 50 MG TABLET PO (20:45)
[2023-08-03] MEDS: Acetaminophen 325 MG TABLET 650 MG PO (20:46)
[2023-08-03] MEDS: Insulin Glargine,Hum.rec.anlog 100 UNIT/ML 10 ML VIAL 10 UNIT SUBCUT (20:50)
[2023-08-04] MEDS: Omeprazole 20 MG CAPSULE.DR PO (05:35)
[2023-08-04 08:04] LABS: Glucose, Whole Blood 167 mg/dL (60-115)
[2023-08-04 08:55] VITALS: BP 142/64; PULSE 74; RESP 16; TEMP 36.6; O2SAT 96
[2023-08-04] MEDS: Insulin Lispro 100 UNIT/ML 3 ML VIAL SUBCUT (09:45)
[2023-08-04] MEDS: Acetaminophen 325 MG TABLET 650 MG PO (09:46)
[2023-08-04] MEDS: Buprenorphine/Naloxone 8/2 mg FILM 1 FILM SUBLINGUAL (09:46)
[2023-08-04] MEDS: metFORMIN HCl 1,000 MG TABLET 1000 MG PO (09:47)
[2023-08-04] MEDS: glipiZIDE 5 MG TABLET PO (09:47)
[2023-08-04] MEDS: lisinopriL 5 MG TABLET PO (09:47)
[2023-08-04] MEDS: Fenofibrate 54 MG TABLET PO (09:47)
[2023-08-04] MEDS: Multivitamin TABLET 1 TAB PO (09:47)
[2023-08-04] MEDS: Atorvastatin Calcium 40 MG TABLET PO (09:48)
[2023-08-04] MEDS: Metoprolol Succinate ER 25 MG TAB.ER.24H PO (09:48)
[2023-08-04] MEDS: QUEtiapine Fumarate 50 MG TABLET PO (09:48)
[2023-08-04] MEDS: Thiamine HCL 100 MG TABLET PO (09:48)
[2023-08-04] MEDS: Folic Acid 1 MG TABLET PO (09:48)
[2023-08-04] MEDS: Sertraline HCL 100 MG TABLET PO (09:56)
--- NOTE | 2023-08-04 11:09 | PM.EVENT ---
Event Note Date of Service: 08/04/23 Event Note: Addiction consult placed for patient requesting evaluation - patient requesting increase of suboxone dose to BID Chart reviewed, Mass Pat Reviewed No recent documented history of patient being prescribed or reporting taking suboxone --per [facility] last prescription in October of 2022 UDS positive for cocaine. Suboxone 8mg QD ordered during admission Consult not indicated as patient has discharged to Section 35 facility at time of this note. Time Spent With Patient Time: Total time managing care of this patient today ____ minutes.
--- NOTE | 2023-08-04 17:55 | P.DS_ITS ---
DS: Providers Provider Date of Service: 08/04/23 Date of admission: 07/31/23 21:27 Date of discharge: 08/04/23 Primary care physician: Unknown Physician Admitting clinician: Cely Miller Attending physician on admission: Benjamin Stout Consults: 08/01/23 16:03 Addiction Medicine Routine Consulting Provider: Addiction Covering Reason for consultation: Pt wanting to inc suboxone to bid Has provider been notified: No 08/02/23 11:14 Consult to Hospitalist Routine Comment: Consulting Provider: Hospitalist Reason For Exam: DM, poor control, on Metformin, ?insulin need Attending physician on discharge: Benjamin Stout Discharging clinician: Cely Miller DS: Diagnosis Discharge Diagnosis (1) Alcohol use disorder: Status: Acute (2) Cocaine use disorder, moderate, dependence: Status: Acute (3) Depression: Status: Acute DS: Medications Discharge Medications Home Medications: Home Medications ?Medication ?Instructions ?Recorded ?Confirmed atorvastatin 40 mg tablet 40 mg PO DAILY 01/01/22 07/31/23 fenofibrate 54 mg tablet 54 mg PO DAILY 01/01/22 07/31/23 metoprolol succinate 25 mg 25 mg PO DAILY 01/01/22 07/31/23 tablet,extended release 24 hr pantoprazole 40 mg tablet,delayed 40 mg PO DAILY 01/01/22 07/31/23 release buprenorphine 8 mg-naloxone 2 mg 1 film buccal DAILY 12/17/22 07/31/23 sublingual film metformin 1,000 mg tablet 1,000 mg PO BID 12/17/22 07/31/23 quetiapine 100 mg tablet 100 mg PO BEDTIME 12/17/22 07/31/23 quetiapine 50 mg tablet 50 mg PO DAILY 12/17/22 07/31/23 sertraline 100 mg tablet 100 mg PO DAILY 12/17/22 07/31/23 Previous Rx's ?Medication ?Instructions ?Recorded lisinopril 5 mg tablet 5 mg PO DAILY 30 days #30 tabs 11/08/21 ondansetron 4 mg disintegrating 4 mg PO Q8H PRN nausea and 12/31/22 tablet vomiting #20 tabs acetaminophen 325 mg tablet 650 mg (2 x 325 mg) PO Q6H PRN 08/04/23 Headache/Pain Mild Scale (1-3) #0 tabs aluminum-magnesium hydroxide 200 30 ml PO Q6H PRN Heartburn/Nausea 08/04/23 mg-200 mg/5 mL oral suspension #0 mL (MAG-AL) dextrose 40 % oral gel (Glutose-15) 15 g PO Q15M PRN Per Hypoglycemia 08/04/23 Standing Ord. #0 grams folic acid 1 mg tablet 1 mg PO DAILY #0 tabs 08/04/23 glipizide 5 mg tablet 5 mg PO DAILY #1 tab 08/04/23 hydroxyzine HCl 25 mg tablet 25 mg PO Q6H PRN Anxiety #0 tabs 08/04/23 insulin glargine 100 unit/mL 10 unit (0.1 mL) subcut BEDTIME #0 08/04/23 subcutaneous solution (Lantus mL U-100 Insulin) insulin lispro 100 unit/mL See Protocol subcut QIDACHS #0 mL 08/04/23 subcutaneous solution (Admelog U-100 Insulin lispro) magnesium hydroxide 400 mg/5 mL 30 ml PO DAILY PRN Constipation #0 08/04/23 oral suspension (Milk of Magnesia) mL metformin 1,000 mg tablet 1,000 mg PO BIDWM #0 tabs 08/04/23 multivitamin (Daily-Shiv tablet) 1 tab PO DAILY #0 tabs 08/04/23 omeprazole 20 mg capsule,delayed 20 mg PO DAILY@0630 #0 caps 08/04/23 release thiamine mononitrate (vit B1) 100 100 mg PO DAILY #0 tabs 08/04/23 mg tablet trazodone 50 mg tablet 50 mg PO BEDTIME MRX1 PRN Insomnia 08/04/23 #0 tabs Mental Status Exam Mental Status Exam Patient Appearance: Fatigued Patient Orientation: Person, Place, Time and Situation Level of Consciousness: Alert Patient Behavior: Talkative and Good Eye Contact Mood Description: Depressed, Fearful, Anxious and Apprehensive Affect Description: Flat Patient Cognition Impaired: Yes Ability to Follow Directions: Fair Speech Pattern: Spontaneous Speech Memory Description: Remote Impaired Hallucinations: None Delusions: Not Present Thought Process: Distracted and Rumination Thought Content: positive for Perseveration Depressive Symptoms: Unhappiness and Low Self Esteem Abnormal Motor Activity Signs and Symptoms: Restlessness Judgement: Fair Data Data Completed and Pending Completed studies during hospitalization [Text1]: 04/09/1707/31/23 07/31/23 12:07 15:28 20:21 WBC 6.0 RBC 5.20 Hgb 12.5 L Hct 38.1 L MCV 73.3 L MCH 24.0 L MCHC 32.8 RDW 15.6 Plt Count 212 MPV 9.8 Immature Gran % (Auto) 0.5 H Neut % (Auto) 73.6 H Lymph % (Auto) 16.9 L [place] % (Auto) 7.8 Eos % (Auto) 0.7 Baso % (Auto) 0.5 Lymph # (Auto) 1.0 L [place] # (Auto) 0.5 Eos # (Auto) 0.0 Baso # (Auto) 0.0 Abs Immat Gran (auto) 0.03 Absolute Neuts (auto) 4.4 Absolute Nucleated RBC 0.000 Nucleated RBC % (auto) 0.0 Sodium 135 Potassium 4.3 Chloride 104 Carbon Dioxide 25 Anion Gap 10 L BUN 17 H Creatinine 0.84 Estim Creat Clear Calc 93.8 Estimated GFR > 60 POC Glucose Random Glucose 278 H Estimat Average Glucose Hemoglobin A1c % Calcium 9.4 Magnesium 1.6 Total Bilirubin 0.4 AST 25 ALT 27 Alkaline Phosphatase 59 Total Protein 6.9 Albumin 4.2 Triglycerides Cholesterol LDL Cholesterol, Calc HDL Cholesterol Vitamin B12 Folate TSH Free T4 Urine Color Yellow Urine Appearance Cloudy Urine pH 6.5 Ur Specific [place] >= 1.030 H Urine Protein Negative Urine Glucose (UA) >=1000 H Urine Ketones Negative Urine Blood Negative Urine Nitrite Negative Ur Leukocyte Esterase Negative Urine RBC 0-2 Urine WBC 0-5 Ur Squamous Epith Cells 0-2 Urine Bacteria None Seen Hyaline Casts 0-2 Salicylates < 5.0 L Urine Opiates Screen Not Detected Urine Fentanyl Screen Not Detected Acetaminophen < 3 Ur Barbiturates Screen Not Detected Ur Phencyclidine Scrn Not Detected Ur Amphetamines Screen Not Detected U Benzodiazepines Scrn Not Detected Urine Cocaine Screen POSITIVE H U Marijuana (THC) Screen Not Detected Ethyl Alcohol < 10 COVID-19 ([place]) Negative COVID-19 Clin Com See Note 08/01/23 08/01/23 08/02/23 06:44 21:27 07:47 WBC RBC Hgb Hct MCV MCH MCHC RDW Plt Count MPV Immature Gran % (Auto) Neut % (Auto) Lymph % (Auto) [place] % (Auto) Eos % (Auto) Baso % (Auto) Lymph # (Auto) [place] # (Auto) Eos # (Auto) Baso # (Auto) Abs Immat Gran (auto) Absolute Neuts (auto) Absolute Nucleated RBC Nucleated RBC % (auto) Sodium Potassium Chloride Carbon Dioxide Anion Gap BUN Creatinine Estim Creat Clear Calc Estimated GFR POC Glucose 399 H* 310 H Random Glucose Estimat Average Glucose 258 Hemoglobin A1c % 10.6 H Calcium Magnesium 1.7 Total Bilirubin AST ALT Alkaline Phosphatase Total Protein Albumin Triglycerides 294 H Cholesterol 132 LDL Cholesterol, Calc 48 HDL Cholesterol 26 L Vitamin B12 511 Folate 6.9 TSH 2.44 Free T4 0.78 Urine Color Urine Appearance Urine pH Ur Specific [place] Urine Protein Urine Glucose (UA) Urine Ketones Urine Blood Urine Nitrite Ur Leukocyte Esterase Urine RBC Urine WBC Ur Squamous Epith Cells Urine Bacteria Hyaline Casts Salicylates Urine Opiates Screen Urine Fentanyl Screen Acetaminophen Ur Barbiturates Screen Ur Phencyclidine Scrn Ur Amphetamines Screen U Benzodiazepines Scrn Urine Cocaine Screen U Marijuana (THC) Screen Ethyl Alcohol COVID-19 ([place]) COVID-19 [place] 08/02/23 08/02/23 08/02/23 12:21 16:27 20:48 WBC RBC Hgb Hct MCV MCH MCHC RDW Plt Count MPV Immature Gran % (Auto) Neut % (Auto) Lymph % (Auto) [place] % (Auto) Eos % (Auto) Baso % (Auto) Lymph # (Auto) [place] # (Auto) Eos # (Auto) Baso # (Auto) Abs Immat Gran (auto) Absolute Neuts (auto) Absolute Nucleated RBC Nucleated RBC % (auto) Sodium Potassium Chloride Carbon Dioxide Anion Gap BUN Creatinine Estim Creat Clear Calc Estimated GFR POC Glucose 384 H* 261 H 205 H Random Glucose Estimat Average Glucose Hemoglobin A1c % Calcium Magnesium Total Bilirubin AST ALT Alkaline Phosphatase Total Protein Albumin Triglycerides Cholesterol LDL Cholesterol, Calc HDL Cholesterol Vitamin B12 Folate TSH Free T4 Urine Color Urine Appearance Urine pH Ur Specific [place] Urine Protein Urine Glucose (UA) Urine Ketones Urine Blood Urine Nitrite Ur Leukocyte Esterase Urine RBC Urine WBC Ur Squamous Epith Cells Urine Bacteria Hyaline Casts Salicylates Urine Opiates Screen Urine Fentanyl Screen Acetaminophen Ur Barbiturates Screen Ur Phencyclidine Scrn Ur Amphetamines Screen U Benzodiazepines Scrn Urine Cocaine Screen U Marijuana (THC) Screen Ethyl Alcohol COVID-19 ([place]) COVID-19 [place] 08/03/23 08/03/23 08/03/23 07:47 12:26 17:12 WBC RBC Hgb Hct MCV MCH MCHC RDW Plt Count MPV Immature Gran % (Auto) Neut % (Auto) Lymph % (Auto) [place] % (Auto) Eos % (Auto) Baso % (Auto) Lymph # (Auto) [place] # (Auto) Eos # (Auto) Baso # (Auto) Abs Immat Gran (auto) Absolute Neuts (auto) Absolute Nucleated RBC Nucleated RBC % (auto) Sodium Potassium Chloride Carbon Dioxide Anion Gap BUN Creatinine Estim Creat Clear Calc Estimated GFR POC Glucose 240 H 269 H 191 H Random Glucose Estimat Average Glucose Hemoglobin A1c % Calcium Magnesium Total Bilirubin AST ALT Alkaline Phosphatase Total Protein Albumin Triglycerides Cholesterol LDL Cholesterol, Calc HDL Cholesterol Vitamin B12 Folate TSH Free T4 Urine Color Urine Appearance Urine pH Ur Specific [place] Urine Protein Urine Glucose (UA) Urine Ketones Urine Blood Urine Nitrite Ur Leukocyte Esterase Urine RBC Urine WBC Ur Squamous Epith Cells Urine Bacteria Hyaline Casts Salicylates Urine Opiates Screen Urine Fentanyl Screen Acetaminophen Ur Barbiturates Screen Ur Phencyclidine Scrn Ur Amphetamines Screen U Benzodiazepines Scrn Urine Cocaine Screen U Marijuana (THC) Screen Ethyl Alcohol COVID-19 ([place]) COVID-19 [place] 08/03/23 08/04/23 19:48 07:26 WBC RBC Hgb Hct MCV MCH MCHC RDW Plt Count MPV Immature Gran % (Auto) Neut % (Auto) Lymph % (Auto) [place] % (Auto) Eos % (Auto) Baso % (Auto) Lymph # (Auto) [place] # (Auto) Eos # (Auto) Baso # (Auto) Abs Immat Gran (auto) Absolute Neuts (auto) Absolute Nucleated RBC Nucleated RBC % (auto) Sodium Potassium Chloride Carbon Dioxide Anion Gap BUN Creatinine Estim Creat Clear Calc Estimated GFR POC Glucose 191 H 167 H Random Glucose Estimat Average Glucose Hemoglobin A1c % Calcium Magnesium Total Bilirubin AST ALT Alkaline Phosphatase Total Protein Albumin Triglycerides Cholesterol LDL Cholesterol, Calc HDL Cholesterol Vitamin B12 Folate TSH Free T4 Urine Color Urine Appearance Urine pH Ur Specific [place] Urine Protein Urine Glucose (UA) Urine Ketones Urine Blood Urine Nitrite Ur Leukocyte Esterase Urine RBC Urine WBC Ur Squamous Epith Cells Urine Bacteria Hyaline Casts Salicylates Urine Opiates Screen Urine Fentanyl Screen Acetaminophen Ur Barbiturates Screen Ur Phencyclidine Scrn Ur Amphetamines Screen U Benzodiazepines Scrn Urine Cocaine Screen U Marijuana (THC) Screen Ethyl Alcohol COVID-19 ([facility]) COVID-19 Clin Com Imaging Diagnostic Imaging Impressions Chest X-Ray 08/02/23 12:48 IMPRESSION: No significant change compared to 12/31/2022. DS: Summary Hospital Course Hospital Course: Admission to adult psychiatry for exacerbation of recurrent major depression, polysubstance use disorder. Pt admitted with active SI with plan. On the unit he attempted to overeat pudding, so my blood sugar would raise and I would . Pt reports that prior to admission he planned to self present for Section 35. States he owes a great deal of money to peers at his program and is unable to return this money. States he believes that as a result his life is in danger. 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 Medications were assessed and adjusted. Pt was seen medically and stabilized. Section 35 process was continued when pt stabilized and pt was discharged to court to plan further care with their team. Status at Discharge Functional status at discharge: wheelchair bound Overall status at discharge: patient is progressing back to baseline Time Spent with Patient Time attestation: Total time managing care of this patient today ____ minutes. Time spent: Less than 30 minutes Discharge Plan Discharge Anticipated Discharge Date/Time: 08/04/23 12:00 Patient Disposition: Xfer Other Discharge Diagnosis: Major Depression, Recurrent Alcohol Use Disorder Cocaine Use Disorder Referrals: Physician,Unknown J [Primary Care Provider] - 1 Week Discharge Medications: New acetaminophen 325 mg Tablet 650 mg PO Q6H PRN (Reason: Headache/Pain Mild Scale (1-3)) Qty: 0 0RF insulin glargine [Lantus U-100 Insulin] 100 unit/mL Solution 10 unit subcut BEDTIME Qty: 0 0RF trazodone 50 mg Tablet 50 mg PO BEDTIME MRX1 PRN (Reason: Insomnia) Qty: 0 0RF dextrose [Glutose-15] 40 % Gel 15 g PO Q15M PRN (Reason: Per Hypoglycemia Standing Ord.) Qty: 0 0RF Protocol: Glucose Gel Hypoglycemia Standing Order Protocol Text: For patients able to take PO (patient cooperative and able to swallow). Give Glucose Gel 15 gm PO for Blood Glucose (BG) < 70. Repeat BG every 15 min until BG > 70 x 3, if BG still < 70 and/or patient symptomatic repeat glucose gel or rapid acting carbohydrate. Notify MD if BG does not improve with treatment. magnesium hydroxide [Milk of Magnesia] 400 mg/5 mL Suspension 30 ml PO DAILY PRN (Reason: Constipation) Qty: 0 0RF omeprazole 20 mg Capsule,Delayed Release(Dr/Ec) 20 mg PO DAILY@0630 Qty: 0 0RF hydroxyzine HCl 25 mg Tablet 25 mg PO Q6H PRN (Reason: Anxiety) Qty: 0 0RF glipizide 5 mg Tablet 5 mg PO DAILY Qty: 1 0RF MAG-AL 200-200 mg/5 mL Suspension 30 ml PO Q6H PRN (Reason: Heartburn/Nausea) Qty: 0 0RF multivitamin [Daily-Shiv] Tablet 1 tab PO DAILY Qty: 0 0RF metformin 1,000 mg Tablet 1,000 mg PO BIDWM Qty: 0 0RF folic acid 1 mg Tablet 1 mg PO DAILY Qty: 0 0RF insulin lispro [Admelog U-100 Insulin lispro] 100 unit/mL Solution See Protocol subcut QIDAS Qty: 0 0RF Protocol: Insulin Correction Scale Less than or equal to 110 ---- Give (units): 0 111 to 150 Give (units): 0 151 to 200 Give (units): 2 201 to 250 Give (units): 4 251 to 300 Give (units): 6 301 to 350 Give (units): 8 Greater than 350 Give (units): 10 Call MD if Blood Glucose > : 350 thiamine mononitrate (vit B1) 100 mg Tablet 100 mg PO DAILY Qty: 0 0RF Continued lisinopril 5 mg Tablet 5 mg PO DAILY 30 Days Qty: 30 0RF Protocol: Hold for SBP< HOLD for SBP < : 90 atorvastatin 40 mg tablet 40 mg PO DAILY pantoprazole 40 mg tablet,delayed release (DR/EC) 40 mg PO DAILY metoprolol succinate 25 mg tablet extended release 24 hr 25 mg PO DAILY Protocol: Hold for SBP/HR < HOLD for SBP < : 90 HOLD for HR < : 60 fenofibrate 54 mg tablet 54 mg PO DAILY sertraline 100 mg Tablet 100 mg PO DAILY quetiapine 100 mg Tablet 100 mg PO BEDTIME metformin 1,000 mg Tablet 1,000 mg PO BID quetiapine 50 mg Tablet 50 mg PO DAILY buprenorphine-naloxone 8-2 mg Film 1 film BUCCAL DAILY ondansetron 4 mg tablet,disintegrating 4 mg PO Q8H PRN (Reason: nausea and vomiting) Qty: 20 0RF Discharge Orders: Discharge Order (Routine); Ordered 08/04/23 Ordered By: Cely Miller Diet: Advance to usual diet Activity on Discharge: As tolerated Stand Alone Forms: Patient Portal Discharge page, Community Support Print Language: Citizen Of [place] Care Plan Goals: Mood and Behavioral Stabilization Sobriety Health Concerns: Mood and Behavioral Stabilization Sobriety Plan of Treatment: Section [address] [place] [address] Assessment: Section 35 [address] [place] [address] Discharge Date/Time: 08/04/23 11:53
== END 2023-08-04 11:53 | disposition other institution (70) | DRG 885 ==
LOC: HO.ED 16:57 → HO.PM5 21:57
PROVIDERS: Physician Assistant; Psychiatry & Neurology Psychiatry; Admitting Provider Clinical Nurse Specialist Psychiatric/Mental Health, Adult; Emergency Provider Emergency Medicine; Visit Provider Clinical Nurse Specialist Psychiatric/Mental Health, Adult
DX: F33.9 Major depressive disorder, recurrent, unspecified (principal); R45.851 Suicidal ideations; F14.20 Cocaine dependence, uncomplicated; F17.210 Nicotine dependence, cigarettes, uncomplicated; E11.40 Type 2 diabetes mellitus with diabetic neuropathy, unspecified; Z20.822 Contact with and (suspected) exposure to COVID-19; Z71.6 Tobacco abuse counseling; F10.90 Alcohol use, unspecified, uncomplicated; Z91.199 Patient's noncompliance with other medical treatment and regimen due to unspecified reason; I10 Essential (primary) hypertension; E78.5 Hyperlipidemia, unspecified; Z90.2 Acquired absence of lung [part of]; Z85.118 Personal history of other malignant neoplasm of bronchus and lung; Z79.4 Long term (current) use of insulin; Z79.84 Long term (current) use of oral hypoglycemic drugs; Z79.899 Other long term (current) drug therapy
CPT/HCPCS: 36415; 71046; 80053; 80061; 80143; 80179; 80307; 81001; 82607; 82746; 82947; 83036; 83735; 84439; 84443; 85025; 87635; 92610; 93005; 99285; S9485

== ENCOUNTER → 2023-07-31 18:57 | Outpatient (BNV) | payer OTHER, MEDICAID, SELFPAY | PROVIDERS: Admitting Provider Clinical Nurse Specialist Psychiatric/Mental Health, Adult; Emergency Provider Emergency Medicine; Visit Provider Internal Medicine Cardiovascular Disease | DX: R07.9 Chest pain, unspecified (principal); R94.31 Abnormal electrocardiogram [ECG] [EKG] | CPT/HCPCS: 93010 ==

== ENCOUNTER 2023-07-31 21:27 | Outpatient (BNV) | payer OTHER, MEDICAID, SELFPAY | END 2023-08-02 11:16 | PROVIDERS: Admitting Provider Clinical Nurse Specialist Psychiatric/Mental Health, Adult; Emergency Provider Emergency Medicine; Visit Provider Internal Medicine Cardiovascular Disease | DX: R07.9 Chest pain, unspecified (principal); R94.31 Abnormal electrocardiogram [ECG] [EKG]; F19.10 Other psychoactive substance abuse, uncomplicated | CPT/HCPCS: 93010 ==

== ENCOUNTER → 2023-07-31 21:27 | Outpatient (BNV) | payer OTHER, MEDICAID, SELFPAY | PROVIDERS: Admitting Provider Clinical Nurse Specialist Psychiatric/Mental Health, Adult; Emergency Provider Emergency Medicine; Visit Provider Clinical Nurse Specialist Psychiatric/Mental Health, Adult | DX: F32.2 Major depressive disorder, single episode, severe without psychotic features (principal); F14.20 Cocaine dependence, uncomplicated; F10.90 Alcohol use, unspecified, uncomplicated | CPT/HCPCS: 90792; 99232; 99238; 99499 ==

== ENCOUNTER 2024-07-18 10:04 | Emergency (ER) | payer MEDICAID, SELFPAY ==
[2024-07-18 10:17] VITALS: BP 136/63; PULSE 71; RESP 16; TEMP 36.7; O2SAT 98; BMI 24.8
--- NOTE | 2024-07-18 10:44 | ECG_ITS ---
Test Reason : cp Blood Pressure : */* mmHG Vent. Rate : 67 BPM Atrial Rate : 67 BPM P-R Int : 222 ms QRS Dur : 106 ms QT Int : 404 ms P-R-T Axes : 17 28 69 degrees QTcB Int : 426 ms Sinus rhythm with 1st degree A-V block Incomplete right bundle branch block Nonspecific T wave abnormality Abnormal ECG When compared with ECG of 02-Aug-2023 11:16, No significant change was found Referred By: Tatiana Hawk Electronically Signed By: BETINA SULLIVAN MD
--- NOTE | 2024-07-18 10:49 | ED_ITS ---
HPI - Psych General Chief Complaint: Psychiatric Symptoms Stated Complaint: SI PER EMS Time Seen by Provider: 07/18/24 10:10 Source: patient, EMS, RN notes reviewed and old records reviewed Mode of arrival: EMS History of Present Illness ED Provider: Tatiana Hawk PA-C HPI Narrative: 64-year-old male with a past medical history of ETOH use disorder, diabetic gastroparesis, cerebral infarct, substance use disorder, MDD, diabetes, HTN, presenting to the ED via EMS complaining of increasing suicidal ideations with plan to jump in front of a bus. Admits to crack use, last use yesterday. Denies other illicit substance or EtOH use. Also reports chest pain for some time. Denies fever, chills, cough, SOB, abdominal pain, nausea/vomiting. Denies HI, auditory or visual hallucinations Related Data Home Medications ?Medication ?Instructions ?Recorded ?Confirmed atorvastatin 40 mg tablet 40 mg PO DAILY 01/01/22 07/31/23 fenofibrate 54 mg tablet 54 mg PO DAILY 01/01/22 07/31/23 metoprolol succinate 25 mg 25 mg PO DAILY 01/01/22 07/31/23 tablet,extended release 24 hr pantoprazole 40 mg tablet,delayed 40 mg PO DAILY 01/01/22 07/31/23 release buprenorphine 8 mg-naloxone 2 mg 1 film buccal DAILY 12/17/22 07/31/23 sublingual film metformin 1,000 mg tablet 1,000 mg PO BID 12/17/22 07/31/23 quetiapine 100 mg tablet 100 mg PO BEDTIME 12/17/22 07/31/23 quetiapine 50 mg tablet 50 mg PO DAILY 12/17/22 07/31/23 sertraline 100 mg tablet 100 mg PO DAILY 12/17/22 07/31/23 Previous Rx's ?Medication ?Instructions ?Recorded lisinopril 5 mg tablet 5 mg PO DAILY 30 days #30 tabs 11/08/21 ondansetron 4 mg disintegrating 4 mg PO Q8H PRN nausea and 12/31/22 tablet vomiting #20 tabs acetaminophen 325 mg tablet 650 mg (2 x 325 mg) PO Q6H PRN 08/04/23 Headache/Pain Mild Scale (1-3) #0 tabs aluminum-magnesium hydroxide 200 30 ml PO Q6H PRN Heartburn/Nausea 08/04/23 mg-200 mg/5 mL oral suspension #0 mL (MAG-AL) dextrose 40 % oral gel (Glutose-15) 15 g PO Q15M PRN Per Hypoglycemia 08/04/23 Standing Ord. #0 grams folic acid 1 mg tablet 1 mg PO DAILY #0 tabs 08/04/23 glipizide 5 mg tablet 5 mg PO DAILY #1 tab 08/04/23 hydroxyzine HCl 25 mg tablet 25 mg PO Q6H PRN Anxiety #0 tabs 08/04/23 insulin glargine 100 unit/mL 10 unit (0.1 mL) subcut BEDTIME #0 08/04/23 subcutaneous solution (Lantus mL U-100 Insulin) insulin lispro 100 unit/mL See Protocol subcut QIDACHS #0 mL 08/04/23 subcutaneous solution (Admelog U-100 Insulin lispro) magnesium hydroxide 400 mg/5 mL 30 ml PO DAILY PRN Constipation #0 08/04/23 oral suspension (Milk of Magnesia) mL metformin 1,000 mg tablet 1,000 mg PO BIDWM #0 tabs 08/04/23 multivitamin (Daily-Shiv tablet) 1 tab PO DAILY #0 tabs 08/04/23 omeprazole 20 mg capsule,delayed 20 mg PO DAILY@0630 #0 caps 08/04/23 release thiamine mononitrate (vit B1) 100 100 mg PO DAILY #0 tabs 08/04/23 mg tablet trazodone 50 mg tablet 50 mg PO BEDTIME MRX1 PRN Insomnia 08/04/23 #0 tabs Allergies Allergy/AdvReac Type Severity Reaction Status Date / Time No Known Allergies Allergy Verified 07/18/24 10:19 Review of Systems 2 Review of Systems: Yes all other systems are reviewed and are negative Constitutional: Constitutional: Reports as per [facility] Past Medical History Attestation statement: The following information was validated with the patient. Source: old records reviewed Medical History Alcohol use disorder NIDDY (non-insulin dependent diabetes mellitus in young) Diabetic gastroparesis Cervical radiculopathy Cerebral infarction Multifactorial gait disorder Acute blood loss anemia Opioid use disorder, mild, in sustained remission Cocaine use disorder, moderate, dependence MDD (major depressive disorder), recurrent episode, moderate Diabetes HTN (hypertension) Social History Social History Household Members: None Housing: Apartment Housing Other:: soliders on Do you presently have visiting nurse or other home services: No Unable to assess alcohol history related to: Unknown Alcohol intake: current Alcohol intake frequency: 3 or more drinks per day Alcohol type: hard liquor Comment: On 1:1 status Patient Tobacco Use Status: Current everyday Tobacco user Tobacco use type: Cigarette and Cigar Cigarette Packs Per Day: 2 Cigarettes Per Day: 40.0 Years Smoked: 12 Smoked in Last 30 Days: Yes e-Cigarette/Vaping Use: Never Used Second Hand Smoke Exposure: No Use of substances other than those prescribed or required for medical reasons: Yes Substance Use Type: Crack/Cocaine Substance Use Frequency: Monthly Advance Directives: Yes Advance Directives Information Provided: Yes Advance Directives on File: No Do you have a plan to hurt others: No Plan service: Yes Current occupational status: disabled Sexual orientation: Decline to Answer Physical Exam 2 Vital Signs: Vital Signs: Last Vital Signs Temp 97.9 F 07/18/24 15:09 Pulse 82 07/18/24 15:09 Resp 16 07/18/24 15:09 BP 102/52 L 07/18/24 15:09 Pulse Ox 98 07/18/24 15:09 O2 Del Method Room Air 07/18/24 15:09 BMI result Body Mass Index 24.8 Const: General: cooperative, healthy appearing and no acute distress O rientation/consciousness: patient oriented x3 Limitations: no limitations HEENT: Head: Yes normal to inspection and Yes atraumatic Ears: hearing grossly normal bilaterally General nose exam: Normal external nose present Face and sinus: Yes normal facial exam Eyes: General: appearance normal, both eyes and all related structures EOM: EOMs intact bilaterally Neck: Neck: Yes normal visual inspection and Yes no meningeal signs Resp: Effort & Inspection: normal respiratory effort and no respiratory distress Auscultation: clear to auscultation bilaterally Cardio: Rate: regular rate Heart sounds: S1 normal heart sound present and S2 normal heart sound present Skin: Rashes: no rashes Wounds: no wounds Neuro: Other: Mostly wheelchair-bound General: patient oriented x3, tone normal, no meningeal signs and CN's II- XI intact bilaterally Cranial nerves: Yes CN's II-XII intact bilaterally Extrem: General: Yes normal to inspection Psych: Thought content: Suicidality present, no homicidality, no hallucinations and Depressive thoughts present Course Course Course Narrative: -1159--labs reassuring. Initial troponin 31.2 will obtain repeat -UA negative. Cocaine positive -1519--repeat troponin 36.2, no significant rise, mi unlikely. Patient medically cleared for inpatient level of care bed search. Physician observation initiated -1630--ED care transferred to [facility] pending inpatient bed search Medical Decision Making Medical Decision Making [facility] Narrative: 64-year-old male with a past medical history of ETOH use disorder, diabetic gastroparesis, cerebral infarct, substance use disorder, MDD, diabetes, HTN, presenting to the ED via EMS complaining of increasing suicidal ideations with plan to jump in front of a bus. On exam vital signs stable, NAD, nontoxic appearing, physical exam as noted above. Patient is suicidal with plan. Rule out organic causes and metabolic abnormalities. Rule out ACS Plan: EKG, Labs, tox screen, CARE team consult Please refer to course for remaining clinical decision making, interpretation of labs/imaging results, and discussions with consultants and/or family members. Differential Diagnosis Differential Diagnoses: The differential diagnosis associated with the presentation includes As above Admission/Observation Consideration of admission/observation: Escalation of care including admission/observation considered Consult Healthcare Provider Management of the patient was discussed with: Behavioral Health Provider Lab Data [facility] Lab Attestation statement: I reviewed the patient's lab results. 07/18/24 11:27 07/18/24 11:27 Labs: Lab Results 07/18/24 07/18/24 07/18/24 Range/Units 10:43 11:27 14:47 WBC 5.2 (4.8-10.8) X10*3/uL RBC 5.19 (4.60-5.80) X10*6/uL Hgb 12.7 L (14.0-18.0) g/dl Hct 38.9 L (42.0-52.0) % MCV 75.0 L (80.0-98.0) fL MCH 24.5 L (27.0-33.0) pg MCHC 32.6 (31.0-36.0) g/dl RDW 17.0 H (11.0-16.0) % Plt Count 173 (160-400) X10*3/uL MPV 9.3 L (9.4-12.4) fL Immature Gran % (Auto) 0.8 H (0.0-0.4) % Neut % (Auto) 67.8 (45-73) % Lymph % (Auto) 19.3 L (20-40) % [place] % (Auto) 10.7 (2-11) % Eos % (Auto) 0.8 (0-4) % Baso % (Auto) 0.6 (0-2) % Lymph # (Auto) 1.0 L (1.2-4.9) X10*3/uL [place] # (Auto) 0.6 (0.1-1.2) X10*3/uL Eos # (Auto) 0.0 (0.0-0.4) X10*3/uL Baso # (Auto) 0.0 (0.0-0.2) X10*3/uL Abs Immat Gran (auto) 0.04 H (0.00-0.03) X10*3/uL Absolute Neuts (auto) 3.6 (2.0-8.3) x10*3/uL Absolute Nucleated RBC 0.000 (0.0-0.012) X10*3/uL Nucleated RBC % (auto) 0.0 (0.0-0.2) /100WBC Sodium 136 (135-145) mmol/L Potassium 4.0 (3.3-5.1) mmol/L Chloride 106 (96-108) mmol/L Carbon Dioxide 22 (22-29) mmol/L Anion Gap 12 (12-20) BUN 17 H (9-16) mg/dL Creatinine 0.85 (0.5-1.4) mg/dL Estim Creat Clear Calc 90.1 Estimated GFR > 60 Random Glucose 131 H (60-115) mg/dL Calcium 9.5 (8.4-10.2) mg/dL Magnesium 1.6 (1.6-2.6) mg/dL Total Bilirubin 0.5 (0.0-1.0) mg/dL Direct Bilirubin 0.2 (0.0-0.5) mg/dL AST 19 (5-37) U/L ALT 15 (0-40) U/L Alkaline Phosphatase 44 (39-117) U/L Troponin I High Sens 31.2 D 36.2 H (<3.5-35.0) ng/L Total Protein 6.9 (6.5-8.0) g/dL Albumin 4.4 (3.5-5.0) g/dL Urine Color Yellow Urine Appearance Clear Urine pH 6.5 (5.0-9.0) Ur Specific [place] >= 1.030 H (1.005-1.025) Urine Protein Negative (Neg-Trace) mg/dL Urine Glucose (UA) >=1000 H (Negative) mg/dL Urine Ketones Trace (Negative) mg/dL Urine Blood Negative (Negative) Urine Nitrite Negative (Negative) Ur Leukocyte Esterase Negative (Negative) Urine RBC 0-2 (0-2) /HPF Urine WBC 0-5 (0-5) /HPF Ur Squamous Epith Cells 0-2 (0-2) /HPF Urine Bacteria None Seen (None Seen) Hyaline Casts 0-2 (0-2) /LPF Urine Opiates Screen Not Detected (Not Detect) Ur Buprenorphine Scrn Not Detected (Not Detect) ng/mL Ur Oxycodone Screen Not Detected (Not Detect) ng/mL Urine Methadone Screen Not Detected (Not Detect) ng/mL Urine Fentanyl Screen Not Detected (Not Detect) Ur Barbiturates Screen Not Detected (Not Detect) Ur Phencyclidine Scrn Not Detected (Not Detect) Ur Amphetamines Screen Not Detected (Not Detect) U Benzodiazepines Scrn Not Detected (Not Detect) Urine Cocaine Screen POSITIVE H (Not Detect) U Marijuana (THC) Screen Not Detected (Not Detect) Ethyl Alcohol < 10 mg/dL Influenza Type A (PCR) NEGATIVE (Negative) Influenza Type B (PCR) NEGATIVE (Negative) RSV RNA Qual (PCR) NEGATIVE (Negative) SARS-CoV-2 RNA (RT-PCR) NEGATIVE (Negative) Independent Interpretation I performed an independent interpretation of an: EKG Radiology Impression Discussion of test interpretation with radiology: I have reviewed the radiologist's reading. Independent Historian Clinical information obtained from an independent historian. History obtained from or confirmed by: EMS External Record Review External record reviewed: Inpatient record, Office record, Outpatient record, Prior outpatient labs, Prior outpatient radiology, Primary care record and Outside ED record Tests considered The following testing was considered but not selected: As above Prescription Management I considered prescription management with: Pain Medication Chronic Conditions Patient?s care impacted by: Diabetes and Other Social Determinants Patient?s care significantly limited by Social Determinants of Health including: Inadequate housing, Low income, Alcoholism and drug addiction in family, Problems related to primary support group, Unemployment, Problems related to employment and Other Social Determinant of Health Discharge Plan Discharge Clinical Impression: Suicidal ideations, Cocaine abuse Patient Disposition: Still a Patient Prescriptions: No Action lisinopril 5 mg Tablet 5 mg PO DAILY 30 Days Qty: 30 0RF Protocol: Hold for SBP< HOLD for SBP < : 90 atorvastatin 40 mg tablet 40 mg PO DAILY pantoprazole 40 mg tablet,delayed release (DR/EC) 40 mg PO DAILY metoprolol succinate 25 mg tablet extended release 24 hr 25 mg PO DAILY Protocol: Hold for SBP/HR < HOLD for SBP < : 90 HOLD for HR < : 60 fenofibrate 54 mg tablet 54 mg PO DAILY sertraline 100 mg Tablet 100 mg PO DAILY quetiapine 100 mg Tablet 100 mg PO BEDTIME metformin 1,000 mg Tablet 1,000 mg PO BID quetiapine 50 mg Tablet 50 mg PO DAILY buprenorphine-naloxone 8-2 mg Film 1 film BUCCAL DAILY ondansetron 4 mg tablet,disintegrating 4 mg PO Q8H PRN (Reason: nausea and vomiting) Qty: 20 0RF acetaminophen 325 mg Tablet 650 mg PO Q6H PRN (Reason: Headache/Pain Mild Scale (1-3)) Qty: 0 0RF insulin glargine [Lantus U-100 Insulin] 100 unit/mL Solution 10 unit subcut BEDTIME Qty: 0 0RF trazodone 50 mg Tablet 50 mg PO BEDTIME MRX1 PRN (Reason: Insomnia) Qty: 0 0RF dextrose [Glutose-15] 40 % Gel 15 g PO Q15M PRN (Reason: Per Hypoglycemia Standing Ord.) Qty: 0 0RF Protocol: Glucose Gel Hypoglycemia Standing Order Protocol Text: For patients able to take PO (patient cooperative and able to swallow). Give Glucose Gel 15 gm PO for Blood Glucose (BG) < 70. Repeat BG every 15 min until BG > 70 x 3, if BG still < 70 and/or patient symptomatic repeat glucose gel or rapid acting carbohydrate. Notify MD if BG does not improve with treatment. magnesium hydroxide [Milk of Magnesia] 400 mg/5 mL Suspension 30 ml PO DAILY PRN (Reason: Constipation) Qty: 0 0RF omeprazole 20 mg Capsule,Delayed Release(Dr/Ec) 20 mg PO DAILY@0630 Qty: 0 0RF hydroxyzine HCl 25 mg Tablet 25 mg PO Q6H PRN (Reason: Anxiety) Qty: 0 0RF glipizide 5 mg Tablet 5 mg PO DAILY Qty: 1 0RF MAG-AL 200-200 mg/5 mL Suspension 30 ml PO Q6H PRN (Reason: Heartburn/Nausea) Qty: 0 0RF multivitamin [Daily-Shiv] Tablet 1 tab PO DAILY Qty: 0 0RF metformin 1,000 mg Tablet 1,000 mg PO BIDWM Qty: 0 0RF folic acid 1 mg Tablet 1 mg PO DAILY Qty: 0 0RF insulin lispro [Admelog U-100 Insulin lispro] 100 unit/mL Solution See Protocol subcut QIDACHS Qty: 0 0RF Protocol: Insulin Correction Scale Less than or equal to 110 ---- Give (units): 0 111 to 150 Give (units): 0 151 to 200 Give (units): 2 201 to 250 Give (units): 4 251 to 300 Give (units): 6 301 to 350 Give (units): 8 Greater than 350 Give (units): 10 Call MD if Blood Glucose > : 350 thiamine mononitrate (vit B1) 100 mg Tablet 100 mg PO DAILY Qty: 0 0RF Interventions: Zullinger-Suicide Risk Severity Scale Last Done: 07/18/24 15:07 Print Language: Namibian
[2024-07-18 10:52] LABS: Appearance Urine Clear; Color Urine Yellow; Glucose Urine UA >=1000 mg/dL (Negative); Leukocyte Esterase Urine Negative (Negative); Nitrite Urine Negative (Negative); PH 6.5 (5.0-9.0); Specific Gravity - Urine >= 1.030 (1.005-1.025); UMIC TRIGGER UACC YES; Urine Blood Negative (Negative); Urine Ketones Trace mg/dL (Negative); Urine Protein Negative (Neg-Trace)
[2024-07-18 10:54] LABS: Bacteria Urine None Seen (None Seen); Hyaline Casts Urine 0-2 /LPF (0-2); RBC Urine 0-2 /HPF (0-2); Squamous Epithelial Cell Urine 0-2 /HPF (0-2); WBC Urine 0-5 /HPF (0-5)
[2024-07-18 11:00] LABS: Amphetamine Screen Urine Not Detected (Not Detect); Barbiturates, Urine Not Detected (Not Detect); Benzodiazepines Screen Urine Not Detected (Not Detect); Buprenorphine Scr Not Detected (Not Detect); Cannabinoid Screen Urine Not Detected (Not Detect); Cocaine Screen Urine POSITIVE (Not Detect); Fentanyl, urine Not Detected (Not Detect); Methadone Screen, Urine Not Detected (Not Detect); Opiate Screen Urine Not Detected (Not Detect); Oxycodone Screen Urine Not Detected (Not Detect); Phencyclidine Screen Urine Not Detected (Not Detect)
[2024-07-18 11:31] LABS: MANUAL DIFF FLAG NO
[2024-07-18 11:34] LABS: Basophils Percent Auto 0.6 % (0-2); Eosinophils Percent Auto 0.8 % (0-4); Hematocrit 38.9 % (42.0-52.0); Hemoglobin 12.7 g/dl (14.0-18.0); Imm Gran Abs Auto 0.04 X10*3/uL (0.00-0.03); Imm Gran Pct Auto 0.8 % (0.0-0.4); Lymphocytes Percent Auto 19.3 % (20-40); Mean Corpuscular HGB Conc 32.6 g/dl (31.0-36.0); Mean Corpuscular Hemoglobin 24.5 pg (27.0-33.0); Mean Platelet Volume 9.3 fL (9.4-12.4); Monocytes Absolute Auto 0.6 X10*3/uL (0.1-1.2); Monocytes Percent Auto 10.7 % (2-11); Neutrophils Absolute Auto 3.6 x10*3/uL (2.0-8.3); Neutrophils Percent Auto 67.8 % (45-73); Platelet Count 173 X10*3/uL (160-400); Red Blood Count 5.19 X10*6/uL (4.60-5.80); White Blood Count 5.2 X10*3/uL (4.8-10.8)
[2024-07-18 11:48] LABS: Alanine Aminotransferase 15 U/L (0-40); Albumin Level 4.4 g/dL (3.5-5.0); Alkaline Phosphatase 44 U/L (39-117); Anion Gap 12 (12-20); Aspartate Amino Transferase 19 U/L (5-37); Bilirubin Direct 0.2 mg/dL (0.0-0.5); Bilirubin Total 0.5 mg/dL (0.0-1.0); Blood Urea Nitrogen 17 mg/dL (9-16); Calcium 9.5 mg/dL (8.4-10.2); Carbon Dioxide 22 mmol/L (22-29); Chloride 106 mmol/L (96-108); Creatinine Clr Calc Pharmacy 90.1; Estimated Glomerular Filt Rate > 60; Glucose Random 131 mg/dL (60-115); Magnesium 1.6 mg/dL (1.6-2.6); Sodium 136 mmol/L (135-145); Total Protein 6.9 g/dL (6.5-8.0)
[2024-07-18 11:53] LABS: Ethanol < 10 mg/dL; Troponin-I High Sensitivity 31.2 ng/L (<3.5-35.0)
[2024-07-18 12:11] LABS: Influenza A PCR NEGATIVE (Negative); Influenza B PCR NEGATIVE (Negative); Resp Syncy Virus RNA Qual PCR NEGATIVE (Negative); SARS COV2 PCR INHOUSE NEGATIVE (Negative)
--- NOTE | 2024-07-18 12:28 | MHC.CARE ---
Patient will be IPLOC. Section 12a in chart for safety.
[2024-07-18 15:09] VITALS: BP 102/52; PULSE 82; RESP 16; TEMP 36.6; O2SAT 98
[2024-07-18 15:16] LABS: Troponin-I High Sensitivity 36.2 ng/L (<3.5-35.0)
--- NOTE | 2024-07-18 15:55 | PC.NURSE ---
Pt to be IPLOC, pharmacy called to do med rec, spoke to Mariana will add to list
--- NOTE | 2024-07-18 19:26 | PHA.MEDREC ---
Addendum entered by Paulina Kuo [facility] 07/19/24 10:35: Shanon called back, confirmed patient is on Trulicity 0.75 mg every Thursday, patient self administers and this is why it did not show up on the printed list given to us. Addendum entered by Paulina Kuo [facility] 07/19/24 08:16: Called [facility] [place], left voicemail for EMANUEL Claudio, waiting for call back Addendum entered by Negro Lunsford 07/18/24 21:28: reviewed Original Note: Pharmacy Consult ? Medication Reconciliation Pharmacy has completed the medication reconciliation. Got medication list from [facility] in [place]. Spoke with patient to confirm med list. He reports lantus is 12 units at 4PM. He takes 100 mg and 50 mg tab of quetiapine at bedtime, and takes a 50 mg in the morning. Fish oil was not on med list but patient says he takes. He also reports Trulicity on Tuesdays but he does not know the dose and it was not on their list. He reports he had it last Thursday. Can have AM med rec tech/[facility] follow up tomorrow. Patient reports he took all of his morning medication today, no insulin today.
[2024-07-18 20:12] LABS: Glucose, Whole Blood 165 mg/dL (60-115)
--- NOTE | 2024-07-18 20:18 | PC.NURSE ---
Assumed care for pt at 1900. Pt resting at the bedside in no apparent distress. Denies pain at this time. Coffee provided as requested. 1:1 sitter at bedside. Monitoring is ongoing.
[2024-07-18 23:53] VITALS: BP 117/63; PULSE 68; RESP 16; TEMP 36.7; O2SAT 93
[2024-07-18] MEDS: metFORMIN HCl 1,000 MG TABLET 1000 MG PO (23:55)
[2024-07-18] MEDS: QUEtiapine Fumarate 50 MG TABLET PO (23:55)
[2024-07-18] MEDS: QUEtiapine Fumarate 100 MG TABLET PO (23:55)
[2024-07-18] MEDS: Acetaminophen 325 MG TABLET 650 MG PO (23:56)
[2024-07-19 08:30] VITALS: BP 100/56; PULSE 69; RESP 16; TEMP 36.6; O2SAT 94
[2024-07-19] MEDS: Fenofibrate 54 MG TABLET PO (09:38)
[2024-07-19] MEDS: metFORMIN HCl 1,000 MG TABLET 1000 MG PO (09:38)
[2024-07-19] MEDS: QUEtiapine Fumarate 50 MG TABLET PO (09:39)
[2024-07-19] MEDS: Sertraline HCL 100 MG TABLET PO (09:39)
[2024-07-19] MEDS: Omeprazole 20 MG CAPSULE.DR PO (09:39)
[2024-07-19] MEDS: lisinopriL 10 MG TABLET PO (09:39)
[2024-07-19] MEDS: Atorvastatin Calcium 40 MG TABLET PO (09:39)
[2024-07-19] MEDS: Metoprolol Succinate ER 25 MG TAB.ER.24H PO (09:39)
[2024-07-19] MEDS: Empagliflozin 10 MG TABLET PO (09:39)
[2024-07-19] MEDS: Cholecalciferol (Vitamin D3) 25 MCG TABLET 50 MCG PO (09:39)
--- NOTE | 2024-07-19 10:18 | PC.NURSE ---
assumed care of patient at 0700, patient is awake and alert, patient oriented. patient resp even and unlabored. patient uses wheelchair at baseline, able to get himself in and out of wheelchair. patient medicated per JUN, sat up and ate breakfast.
--- NOTE | 2024-07-19 11:25 | MHC.CARE ---
Pt has been accepted to [facility] for today. ETA is 4pm ad the accepting provider is Dr. Coulter. The address is [address] [place] [id number], [place] [address]. Diagnosis codes are F33.1 - Major depressive disorder, recurrent, moderate and F12.10 - Cocaine use d/o, mild. Please let us know if there is anything else you need. Paige will call for nursing report. ED RN and CARE team have been notified.
[2024-07-19 13:18] LABS: Glucose, Whole Blood 158 mg/dL (60-115)
--- NOTE | 2024-07-19 15:49 | PC.NURSE ---
report given to ems for tx
== END 2024-07-19 15:50 | disposition still patient (30) ==
PROVIDERS: Physician Assistant; Emergency Provider Emergency Medicine Emergency Medical Services
DX: R45.851 Suicidal ideations (principal); F12.90 Cannabis use, unspecified, uncomplicated; F32.9 Major depressive disorder, single episode, unspecified; R07.89 Other chest pain; I44.0 Atrioventricular block, first degree; F17.210 Nicotine dependence, cigarettes, uncomplicated; Z03.818 Encounter for observation for suspected exposure to other biological agents ruled out; Z79.899 Other long term (current) drug therapy; Z51.81 Encounter for therapeutic drug level monitoring
CPT/HCPCS: 0241U; 36415; 80048; 80076; 80307; 81001; 82947; 83735; 84484; 85025; 93005; 99285; S9485

== ENCOUNTER → 2024-07-18 10:44 | Outpatient (BNV) | payer OTHER, MEDICAID, SELFPAY | PROVIDERS: Emergency Provider Emergency Medicine Emergency Medical Services; Visit Provider Internal Medicine Cardiovascular Disease | DX: R07.9 Chest pain, unspecified (principal); I45.19 Other right bundle-branch block; R94.31 Abnormal electrocardiogram [ECG] [EKG] | CPT/HCPCS: 93010 ==

== ENCOUNTER 2024-12-13 03:39 | Emergency (ER) | payer OTHER, MEDICAID, SELFPAY ==
--- NOTE | ~2024-12-13 | XR_ITS ---
CLINICAL HISTORY: SOB 1 view chest x-ray Comparison: CR/IA/SR - XR CHEST 2 VIEWS - 08/02/23 12:50 EDT Findings: No interval change in the appearance of the lungs since the prior study. Mild right lung volume loss. Heart size is normal. No acute fracture. Surgical clips project over the right chest. IMPRESSION: 1. No acute findings. This document has been electronically signed by: Aries Acosta MD, PHD on 12/13/2024 05:00:40
--- NOTE | 2024-12-13 03:46 | ECG_ITS ---
Test Reason : cp Blood Pressure : */* mmHG Vent. Rate : 70 BPM Atrial Rate : 70 BPM P-R Int : 228 ms QRS Dur : 100 ms QT Int : 374 ms P-R-T Axes : 31 26 58 degrees QTcB Int : 403 ms Sinus rhythm with 1st degree A-V block Increased R/S ratio in V1, consider early transition or posterior infarct Abnormal ECG When compared with ECG of 18-Jul-2024 11:46, No significant change was found Referred By: Generic ED Physician Electronically Signed By: BETINA SULLIVAN MD
[2024-12-13 03:50] VITALS: BP 147/77; BP 158/96; PULSE 71; PULSE 73; RESP 17; TEMP 36.9; O2SAT 94; O2SAT 98; BMI 26.4
[2024-12-13 04:27] LABS: Hematocrit 36.6 % (42.0-52.0); Hemoglobin 12.1 g/dl (14.0-18.0); Imm Gran Abs Auto 0.04 X10*3/uL (0.00-0.03); Imm Gran Pct Auto 0.8 % (0.0-0.4); Lymphocytes Absolute Auto 1.3 X10*3/uL (1.2-4.9); MANUAL DIFF FLAG NO; Mean Corpuscular HGB Conc 33.1 g/dl (31.0-36.0); Mean Corpuscular Hemoglobin 24.5 pg (27.0-33.0); Mean Corpuscular Volume 74.1 fL (80.0-98.0); NRBC Abs Auto 0.000 X10*3/uL (0.0-0.012); NRBC Pct Auto 0.0 /100WBC (0.0-0.2); Platelet Count 231 X10*3/uL (160-400); Red Blood Count 4.94 X10*6/uL (4.60-5.80); White Blood Count 4.8 X10*3/uL (4.8-10.8)
[2024-12-13 04:44] LABS: Alanine Aminotransferase 17 U/L (0-40); Albumin Level 4.5 g/dL (3.5-5.0); Alkaline Phosphatase 54 U/L (39-117); Anion Gap 13 (12-20); Aspartate Amino Transferase 23 U/L (5-37); Blood Urea Nitrogen 18 mg/dL (9-16); Calcium 9.1 mg/dL (8.4-10.2); Carbon Dioxide 25 mmol/L (22-29); Chloride 103 mmol/L (96-108); Creatinine Clr Calc Pharmacy 101.5; Estimated Glomerular Filt Rate > 60; Potassium 4.0 mmol/L (3.3-5.1); Sodium 137 mmol/L (135-145); Total Protein 6.7 g/dL (6.5-8.0)
[2024-12-13 04:51] LABS: Troponin-I High Sensitivity 34.0 ng/L (<3.5-35.0)
--- NOTE | 2024-12-13 07:33 | ED.CHESTPAIN ---
HPI - Chest Pain General Chief Complaint: Chest Pain Stated Complaint: Chest Pain radiates RT side of waist Time Seen by Provider: 12/13/24 07:12 Source: patient, EMS and old records reviewed Mode of arrival: EMS Limitations: no limitations History of Present Illness ED Provider: DR. Cameron HPI narrative: 64-year-old male with past medical history of ETOH use disorder patient has been sober for few months now, diabetic gastroparesis, cerebral infarct, substance abuse, MDD, DM, HTN, patient woke up at 03:00 today had a mid chest retrosternal chest pain when he was bending, pain has been constant since then feels like pressure on his chest radiates down to the right upper quadrant area, patient stated that he did not use drugs or alcohol in the past. No coughing, no shortness of breath, no recent travel, no fever, no chills, no lower extremity swelling or tenderness. Pain has been constant since 03:00. Related Data Home Medications ?Medication ?Instructions ?Recorded ?Confirmed atorvastatin 40 mg tablet 40 mg PO DAILY 01/01/22 07/18/24 fenofibrate 54 mg tablet 54 mg PO DAILY 01/01/22 07/18/24 metoprolol succinate 25 mg 25 mg PO DAILY 01/01/22 07/18/24 tablet,extended release 24 hr pantoprazole 40 mg tablet,delayed 40 mg PO DAILY 01/01/22 07/18/24 release metformin 1,000 mg tablet 1,000 mg PO BID 12/17/22 07/18/24 quetiapine 100 mg tablet 100 mg PO BEDTIME@2100 12/17/22 07/18/24 quetiapine 50 mg tablet 50 mg PO BID@0900,2100 12/17/22 07/18/24 cholecalciferol (vitamin D3) 50 50 mcg PO DAILY 07/18/24 07/18/24 mcg (2,000 unit) capsule empagliflozin 10 mg tablet 10 mg PO DAILY 07/18/24 07/18/24 (Jardiance) insulin glargine 100 unit/mL 12 unit subcut DAILY@1600 07/18/24 07/18/24 subcutaneous solution (Lantus U-100 Insulin) lisinopril 10 mg tablet 10 mg PO DAILY 07/18/24 07/18/24 omega 8-ggf-fpn-fish oil 1,000 mg 1 cap PO DAILY 07/18/24 07/18/24 (120 mg-180 mg) capsule (Fish Oil) sertraline 100 mg tablet 100 mg PO DAILY 07/18/24 07/18/24 dulaglutide 0.75 mg/0.5 mL 0.75 mg subcut TU 07/19/24 07/19/24 subcutaneous pen injector (Trulicity) Allergies Allergy/AdvReac Type Severity Reaction Status Date / Time No Known Allergies Allergy Verified 12/13/24 03:51 Review of Systems Review of Systems: All other systems are reviewed and are negative Constitutional: Reports as per HPI and Reports no additional constitutional complaints Eyes: Reports as per HPI and Reports no additional eye complaints Reports system reviewed and no additional complaints, except as documented Cardiovascular: Reports as per HPI and Reports no additional cardiovascular complaints Respiratory: Reports as per HPI and Reports no additional respiratory complaints Gastrointestinal: Reports as per HPI and Reports no additional gastrointestinal complaints Genitourinary: Reports no additional female genitourinary complaints Musculoskeletal: Reports no additional musculoskeletal complaints Skin/Breast: Reports system reviewed and no additional complaints, except as docu Psychiatric: Reports no additional psychiatric complaints Endocrine: Reports no additional endocrine complaints Hematologic/Lymphatic: Reports no additional hematologic/lymphatic complaints Allergic/Immunologic: Reports no additional allergic/immunologic complaints Reports system reviewed and no additional complaints, except as documented and Reports Abnormal speech present [facility] Past Medical History Medical History Alcohol use disorder NIDDY (non-insulin dependent diabetes mellitus in young) Diabetic gastroparesis Cervical radiculopathy Cerebral infarction Multifactorial gait disorder Acute blood loss anemia Opioid use disorder, mild, in sustained remission Cocaine use disorder, moderate, dependence MDD (major depressive disorder), recurrent episode, moderate Diabetes HTN (hypertension) Social History Social History Household Members: None Housing: Apartment Housing Other:: soliders on Do you presently have visiting nurse or other home services: No Unable to assess alcohol history related to: Unknown Alcohol intake: current Alcohol intake frequency: 3 or more drinks per day Alcohol type: hard liquor Comment: On 1:1 status Patient Tobacco Use Status: Current everyday Tobacco user Tobacco use type: Cigarette and Cigar Cigarette Packs Per Day: 2 Cigarettes Per Day: 40.0 Years Smoked: 12 Smoked in Last 30 Days: Yes e-Cigarette/Vaping Use: Never Used Second Hand Smoke Exposure: No Use of substances other than those prescribed or required for medical reasons: No Substance Use Type: Crack/Cocaine Advance Directives: No Advance Directives Information Provided: Yes Do you have a plan to hurt others: No Plan service: Yes Current occupational status: disabled Sexual orientation: Decline to Answer Physical Exam Vital Signs: Vital Signs: Last Vital Signs Temp 98 F 12/13/24 10:50 Pulse 74 12/13/24 10:50 Resp 18 12/13/24 10:50 BP 133/58 L 12/13/24 10:50 Pulse Ox 97 12/13/24 10:50 O2 Del Method Room Air 12/13/24 10:50 BMI result Body Mass Index 26.4 Vital signs have been reviewed and appear to be correct. Blood pressure elevated. Heart rate normal. Respiratory rate normal. Temperature normal. Oxygen saturation normal. Appearance: Alert. Oriented X3. No acute distress. Head: Normal external exam. Normocephalic. Atraumatic. No [place] signs noted. No raccoon eyes noted Eyes: PERRLA. EOMI. Conjunctiva and sclera normal. Eyelids normal. ENT: TM's Normal. Pharynx normal. Uvula midline. Moist mucous membranes. No trismus noted. No drooling noted. No muffled voice noted. Neck: Normal inspection. Neck supple. FROM. No adenopathy. Thyroid Normal. No meningeal signs. No neck mass noted. CVS: Normal heart rate and rhythm. Heart sound normal. No murmurs noted. Pulses normal throughout. Respiratory: No respiratory distress. Painless inspiration. Breath sounds normal. No wheezes/rales/rhonchi noted. Chest nontender. No accessory muscle usage noted or decreased air movement noted. Abdomen: Soft and nontender. Bowel sounds normal in all 4 quadrants. No distention noted. No organomegaly noted. No visible injury noted. Back: No CVA tenderness. Full range of motion noted. Skin: Skin warm and dry. Normal skin color. Normal skin turgor. No rashes/lesions/lacerations noted. Extremities: No lower extremity edema. Extremities exhibit normal range of motion. Extremities nontender. Neuro: Oriented X 3. Cranial nerve exam: II-XII are grossly intact No motor deficit. No sensory deficit. Reflexes normal. Course Reevaluation(s) Reevaluation #1: Chest pain since 03:00 in the morning, denies using recreational drug however U tox is positive for cocaine/fentanyl, troponin is showing no delta change. EKG is not suggesting ST-elevation [place]. Patient feels better after GI cocktail. Time: 12:41 Medications Administered Discontinued Medications Generic Name Dose Route Start Last Admin Trade Name Chrystal PRN Reason Stop Dose Admin Acetaminophen 650 mg 12/13/24 07:35 12/13/24 08:01 Acetaminophen 325 Mg Tablet PO 12/13/24 07:36 650 mg ONCE ONE Administration Al Hydroxide/Mg Hydroxide 30 ml 12/13/24 07:38 12/13/24 08:01 Magnesium Hydrox/Alum Hydrox 30 Ml Oral.Susp PO 12/13/24 07:39 30 ml ONCE ONE Administration Famotidine 20 mg 12/13/24 07:38 12/13/24 08:01 Famotidine/Pf 20 Mg/2 Ml Vial IVPUSH 12/13/24 07:39 20 mg ONCE ONE Administration Medical Decision Making Differential Diagnosis Differential Diagnoses: The differential diagnosis associated with the presentation includes (ACS, pulmonary embolism, pneumonia, pneumothorax, pleural effusion, cocaine induced [place], myofascial chest pain, GERD.) Admission/Observation Consideration of admission/observation: Escalation of care including admission/observation considered Lab Data MDM Lab Attestation statement: I reviewed the patient's lab results. 12/13/24 04:22 12/13/24 04:22 Labs: Lab Results 12/13/24 12/13/24 12/13/24 Range/Units 04:22 07:16 08:00 WBC 4.8 (4.8-10.8) X10*3/uL RBC 4.94 (4.60-5.80) X10*6/uL Hgb 12.1 L (14.0-18.0) g/dl Hct 36.6 L (42.0-52.0) % MCV 74.1 L (80.0-98.0) fL MCH 24.5 L (27.0-33.0) pg MCHC 33.1 (31.0-36.0) g/dl RDW 16.2 H (11.0-16.0) % Plt Count 231 D (160-400) X10*3/uL MPV 9.0 L (9.4-12.4) fL Immature Gran % (Auto) 0.8 H (0.0-0.4) % Neut % (Auto) 56.4 (45-73) % Lymph % (Auto) 26.7 (20-40) % [place] % (Auto) 13.6 H (2-11) % Eos % (Auto) 1.9 (0-4) % Baso % (Auto) 0.6 (0-2) % Lymph # (Auto) 1.3 (1.2-4.9) X10*3/uL [place] # (Auto) 0.7 (0.1-1.2) X10*3/uL Eos # (Auto) 0.1 (0.0-0.4) X10*3/uL Baso # (Auto) 0.0 (0.0-0.2) X10*3/uL Abs Immat Gran (auto) 0.04 H (0.00-0.03) X10*3/uL Absolute Neuts (auto) 2.7 (2.0-8.3) x10*3/uL Absolute Nucleated RBC 0.000 (0.0-0.012) X10*3/uL Nucleated RBC % (auto) 0.0 (0.0-0.2) /100WBC D-Dimer High Sensitivty < 150 NG/ML Sodium 137 (135-145) mmol/L Potassium 4.0 (3.3-5.1) mmol/L Chloride 103 (96-108) mmol/L Carbon Dioxide 25 (22-29) mmol/L Anion Gap 13 (12-20) BUN 18 H (9-16) mg/dL Creatinine 0.73 (0.5-1.4) mg/dL Estim Creat Clear Calc 101.5 Estimated GFR > 60 Random Glucose 121 H (60-115) mg/dL Calcium 9.1 (8.4-10.2) mg/dL Total Bilirubin 0.4 (0.0-1.0) mg/dL AST 23 (5-37) U/L ALT 17 (0-40) U/L Alkaline Phosphatase 54 (39-117) U/L Troponin I High Sens 34.0 37.3 H (<3.5-35.0) ng/L Total Protein 6.7 (6.5-8.0) g/dL Albumin 4.5 (3.5-5.0) g/dL Urine Color Urine Appearance Urine pH (5.0-9.0) Ur Specific [place] (1.005-1.025) Urine Protein (Neg-Trace) mg/dL Urine Glucose (UA) (Negative) mg/dL Urine Ketones (Negative) mg/dL Urine Blood (Negative) Urine Nitrite (Negative) Ur Leukocyte Esterase (Negative) Urine RBC (0-2) /HPF Urine WBC (0-5) /HPF Ur Squamous Epith Cells (0-2) /HPF Urine Bacteria (None Seen) Hyaline Casts (0-2) /LPF Urine Opiates Screen (Not Detect) Ur Buprenorphine Scrn (Not Detect) ng/mL Ur Oxycodone Screen (Not Detect) ng/mL Urine Methadone Screen (Not Detect) ng/mL Urine Fentanyl Screen (Not Detect) Ur Barbiturates Screen (Not Detect) Ur Phencyclidine Scrn (Not Detect) Ur Amphetamines Screen (Not Detect) U Benzodiazepines Scrn (Not Detect) Urine Cocaine Screen (Not Detect) U Marijuana (THC) Screen (Not Detect) 12/13/24 12/13/24 12/13/24 Range/Units 10:50 10:51 11:26 WBC (4.8-10.8) X10*3/uL RBC (4.60-5.80) X10*6/uL Hgb (14.0-18.0) g/dl Hct (42.0-52.0) % MCV (80.0-98.0) fL MCH (27.0-33.0) pg MCHC (31.0-36.0) g/dl RDW (11.0-16.0) % Plt Count (160-400) X10*3/uL MPV (9.4-12.4) fL Immature Gran % (Auto) (0.0-0.4) % Neut % (Auto) (45-73) % Lymph % (Auto) (20-40) % [place] % (Auto) (2-11) % Eos % (Auto) (0-4) % Baso % (Auto) (0-2) % Lymph # (Auto) (1.2-4.9) X10*3/uL [place] # (Auto) (0.1-1.2) X10*3/uL Eos # (Auto) (0.0-0.4) X10*3/uL Baso # (Auto) (0.0-0.2) X10*3/uL Abs Immat Gran (auto) (0.00-0.03) X10*3/uL Absolute Neuts (auto) (2.0-8.3) x10*3/uL Absolute Nucleated RBC (0.0-0.012) X10*3/uL Nucleated RBC % (auto) (0.0-0.2) /100WBC D-Dimer High Sensitivty NG/ML Sodium (135-145) mmol/L Potassium (3.3-5.1) mmol/L Chloride (96-108) mmol/L Carbon Dioxide (22-29) mmol/L Anion Gap (12-20) BUN (9-16) mg/dL Creatinine (0.5-1.4) mg/dL Estim Creat Clear Calc Estimated GFR Random Glucose (60-115) mg/dL Calcium (8.4-10.2) mg/dL Total Bilirubin (0.0-1.0) mg/dL AST (5-37) U/L ALT (0-40) U/L Alkaline Phosphatase (39-117) U/L Troponin I High Sens 29.6 (<3.5-35.0) ng/L Total Protein (6.5-8.0) g/dL Albumin (3.5-5.0) g/dL Urine Color Yellow Urine Appearance Turbid Urine pH 7.5 (5.0-9.0) Ur Specific [place] >= 1.030 H (1.005-1.025) Urine Protein Negative (Neg-Trace) mg/dL Urine Glucose (UA) >=1000 H (Negative) mg/dL Urine Ketones Negative (Negative) mg/dL Urine Blood Negative (Negative) Urine Nitrite Negative (Negative) Ur Leukocyte Esterase Negative (Negative) Urine RBC 0-2 (0-2) /HPF Urine WBC 0-5 (0-5) /HPF Ur Squamous Epith Cells 0-2 (0-2) /HPF Urine Bacteria None Seen (None Seen) Hyaline Casts 0-2 (0-2) /LPF Urine Opiates Screen Not Detected (Not Detect) Ur Buprenorphine Scrn Positive H (Not Detect) ng/mL Ur Oxycodone Screen Not Detected (Not Detect) ng/mL Urine Methadone Screen Not Detected (Not Detect) ng/mL Urine Fentanyl Screen POSITIVE H (Not Detect) Ur Barbiturates Screen Not Detected (Not Detect) Ur Phencyclidine Scrn Not Detected (Not Detect) Ur Amphetamines Screen Not Detected (Not Detect) U Benzodiazepines Scrn Not Detected (Not Detect) Urine Cocaine Screen POSITIVE H (Not Detect) U Marijuana (THC) Screen Not Detected (Not Detect) Independent Interpretation I performed an independent interpretation of an: EKG (Normal sinus rhythm at 70 beats per minutes, first-degree AV block, otherwise normal intervals, no ST-T changes.) and Plain X-Ray (Chest: No acute intrathoracic pathology.) Radiology Impression Discussion of test interpretation with radiology: I have reviewed the radiologist's reading. Discharge Plan Discharge Clinical Impression: Atypical chest pain, Polysubstance abuse Patient Disposition: Home, Self-Care Instructions: Chest Pain (ED) Prescriptions: No Action atorvastatin 40 mg tablet 40 mg PO DAILY pantoprazole 40 mg tablet,delayed release (DR/EC) 40 mg PO DAILY metoprolol succinate 25 mg tablet extended release 24 hr 25 mg PO DAILY Protocol: Hold for SBP/HR < HOLD for SBP < : 90 HOLD for HR < : 60 fenofibrate 54 mg tablet 54 mg PO DAILY quetiapine 100 mg Tablet 100 mg PO BEDTIME@2100 metformin 1,000 mg Tablet 1,000 mg PO BID quetiapine 50 mg Tablet 50 mg PO BID@0900,2100 lisinopril 10 mg Tablet 10 mg PO DAILY cholecalciferol (vitamin D3) 50 mcg (2,000 unit) Capsule 50 mcg PO DAILY omega 4-oeh-jld-fish oil [Fish Oil] 1,000 (120-180) mg Capsule 1 cap PO DAILY Jardiance 10 mg Tablet 10 mg PO DAILY insulin glargine [Lantus U-100 Insulin] 100 unit/mL solution 12 unit subcut DAILY@1600 sertraline 100 mg Tablet 100 mg PO DAILY Trulicity 0.75 mg/0.5 mL Pen Injector 0.75 mg SUBCUT TU Print Language: Azeri
[2024-12-13 07:56] VITALS: BP 117/63; PULSE 70; RESP 20; O2SAT 97
[2024-12-13 07:56] LABS: Troponin-I High Sensitivity 37.3 ng/L (<3.5-35.0)
[2024-12-13] MEDS: Magnesium Hydrox/Alum Hydrox 30 ML ORAL.SUSP PO (08:01)
[2024-12-13 08:14] LABS: D Dimer High Sensitivity < 150 NG/ML
--- NOTE | 2024-12-13 10:46 | PC.NURSE ---
Patient reports after GI cocktail is no longer having chest pain. Provided with food and fluids, tolerated well.
[2024-12-13 10:50] VITALS: BP 133/58; PULSE 74; RESP 18; TEMP 36.6; O2SAT 97
[2024-12-13 11:09] LABS: Appearance Urine Turbid; Glucose Urine UA >=1000 mg/dL (Negative); PH 7.5 (5.0-9.0); Specific Gravity - Urine >= 1.030 (1.005-1.025); UMIC TRIGGER UACC YES
[2024-12-13 11:16] LABS: Cannabinoid Screen Urine Not Detected (Not Detect)
[2024-12-13 12:02] LABS: Troponin-I High Sensitivity 29.6 ng/L (<3.5-35.0)
--- NOTE | 2024-12-13 14:48 | PC.NURSE ---
patient provided addiotional pace # [phone], number rings with no answer
[2024-12-13 16:26] VITALS: BP 133/58; PULSE 74; RESP 18; TEMP 36.6; O2SAT 97
== END 2024-12-13 16:43 | disposition home or self-care (01) ==
PROVIDERS: Emergency Medicine; Emergency Provider Emergency Medicine
DX: F19.10 Other psychoactive substance abuse, uncomplicated (principal); R06.02 Shortness of breath; R07.89 Other chest pain; E11.9 Type 2 diabetes mellitus without complications; I10 Essential (primary) hypertension; Z79.899 Other long term (current) drug therapy
CPT/HCPCS: 36415; 71045; 80053; 80307; 81001; 81003; 84484; 85025; 85379; 93005; 96374; 99284; 99285; J1308

== ENCOUNTER → 2024-12-13 03:46 | Outpatient (BNV) | payer OTHER, MEDICAID, SELFPAY | PROVIDERS: Emergency Provider Emergency Medicine; Visit Provider Internal Medicine Cardiovascular Disease | DX: I44.0 Atrioventricular block, first degree (principal) | CPT/HCPCS: 93010 ==

== ENCOUNTER → 2024-12-13 03:46 | Outpatient (BNV) | payer OTHER, MEDICAID, SELFPAY | PROVIDERS: Visit Provider General Practice | DX: R06.02 Shortness of breath (principal) | CPT/HCPCS: 71045 ==